=== PATIENT | male | born 1945 | race Native Hawaiian/Other Pacific Islander ===

== ENCOUNTER → 2017-09-16 | Outpatient (CLI) | payer MEDICARE, MEDICAID ==
[~2017-09-16] VITALS: Ht 175.3 cm; Wt 108.0 kg
[~2017-09-16] MED LIST: ACHD5005 PO; AMLO10TA82 PO; AMOX-358 PO; ASPI-586 PO; ATOR40TA70 PO; ATR20T PO; BACL20TA PO; BUDE6HFA IH; CALC-6 PO; CARV3.122 PO; CEPH500C PO; CETI10TA17 PO; CETI10TA20 PO; CLIN300C3 PO; CLOP75TA69 PO; ESCI10TA55 PO; ESCT10T PO; FLUT9.9S NSEACH; FOLI1TAB24 PO; FURO20TA4 PO; GBPN300C PO; HYDR-3454 PO; HYDR-3583 PO; INSASP10V SQ; INSU100I16 SQ; INSU100I29 SQ; INSU100V16 SQ; INSU100V5 SQ; ISM60TCR PO; LIRA0.6P SQ; MEGE40TA PO; METF-380 PO; METO-387 PO; METO100T2 PO; METO200T2 PO; MINOCYCLINE; MINOCYCLINE PO; OMEP20CA12 PO; OXYC-12 PO; PANT20TA2 PO; PRD50T PO; PREG50C PO; RT-ALBUINH IH; SULF1TAB38 PO; TRAM50TA2 PO; Victoza SQ; fosamax PO
== END ==
LOC: PREOP 05:33
PROVIDERS: ATTEND Surgery
DX: Z01.818 Encounter for other preprocedural examination (principal); K21.9 Gastro-esophageal reflux disease without esophagitis; K52.9 Noninfective gastroenteritis and colitis, unspecified

== ENCOUNTER 2017-09-22 10:14 | Day surgery (SDC) | payer MEDICARE, MEDICAID ==
[~2017-09-22] VITALS: Ht 175.3 cm; Wt 108.0 kg
[2017-09-22] MEDS ORDERED: LACTATED RINGERS 1,000 ML IV ONE (10:38)
[2017-09-22] MEDS ORDERED: LACTATED RINGERS 1,000 ML IV SCH (11:15)
[2017-09-22] MEDS ORDERED: HURRICAINE EXT TUBE (BENZOCAINE) XX PRN (11:15)
[2017-09-22] MEDS ORDERED: HURRICAINE EXT TUBE (BENZOCAINE) ONE (11:45)
[2017-09-22 11:47] VITALS: BP 142/84
[2017-09-22] MEDS ORDERED: proPOfol 200 MG/20 ML (DIPRIVAN) VIAL IV ONE (11:48)
[2017-09-22] MEDS ORDERED: MIDAZOLAM 2 MG/2 ML (VERSED) VIAL ONE (11:50)
[2017-09-22 12:45] VITALS: BP 184/110
--- NOTE | 2017-09-22 12:57 | Progress Note-Pre Operative ---
Pre-Operative Progress Note H&P Reviewed The H&P was reviewed, patient examined and no changes noted. Time Seen by Provider: 11:48 Date H&P Reviewed: Sep 22, 2017 Time H&P Reviewed: 11:46 Pre-Operative Diagnosis: Gastritis, Screening Colonoscopy PATRICIA CERVANTES DO Sep 22, 2017 12:57
--- NOTE | 2017-09-22 12:59 | Progress Note-Post Operative ---
Post-Operative Progess Note Surgeon (s)/Director Integrated (s) Surgeon PATRICIA CERVANTES DO Director Integrated: none Pre-Operative Diagnosis Gastritis, Screening Colonoscopy Post-Operative Diagnosis Gastritis Colon Polyp Internal Hemorrhoids Poor prep with retained fecal fluid and vegetable matter Procedure & Operative Findings Date of Procedure 09/22/17 Procedure Performed/Findings EGD with Biopsy Colonoscopy with snare polypectomy Anesthesia Type IV sedation by SENIOR ACCOUNTS PAYABLE SPECIALIST Estimated Blood Loss Estimated blood loss (mL): scant Specimens/Packing Specimens Removed Antral bx Descending colon polyp PATRICIA CERVANTES DO Sep 22, 2017 12:59
--- NOTE | 2017-09-22 13:01 | Endoscopy Discharge Instruct ---
Endo Procedure/Findings Findings 1.: Gastritis 2.: Polyp 3.: Internal Hemorrhoids Discharge Instructions - Activity: You might feel a little sleepy until tomorrow. This is due to the medicine you received to relax you. Until tomorrow, you should: NOT drive a car, operate machinery or power tools. NOT drink any alcoholic beverages. NOT make any important decisions or sign importortant papers. Do not return to work until tomorrow, unless otherwise instructed. Resume previous activities tomorrow. Diet: Start by taking liquids. If you tolerate liquids, advance to solid food. Make appointment for one week Notify Physician - If you experience excessive bleeding, unusual abdominal pain, fever, or chest pain, contact your doctor immediately. Follow-Up: - I have received and understand the above instructions and will call my doctor if I have any further questions. Patient Signature Date Nurse Signature Other (Relationship) PATRICIA CERVANTES DO Sep 22, 2017 13:01
[2017-09-22 13:15] VITALS: BP 202/107
[2017-09-22 13:52] VITALS: BP 202/107
--- NOTE | 2017-09-22 20:32 | OPERATIVE REPORT ---
DATE OF SERVICE: 09/22/2017 PREOPERATIVE DIAGNOSES: 1. Gastritis. 2. Screening colonoscopy. POSTOPERATIVE DIAGNOSES: 1. Gastritis. 2. Colon polyps. 3. Internal hemorrhoids. 4. Poor prep. 5. Small hiatal hernia. PROCEDURES: 1. EGD with biopsy. 2. Colonoscopy with snare polypectomy. SURGEON: PATRICIA CERVANTES DO. PHYSICAL THERAPY SUPERVISOR: None. ANESTHESIA: IV sedation by the AIRPORT LOCATION MANAGER. BLOOD LOSS: Scant. SPECIMEN: One biopsy from the antrum and one polyp from the descending colon. FLUIDS: Per anesthesia. POSTOPERATIVE CONDITION: Stable. INDICATION FOR PROCEDURE: The patient is a 72-year-old male who is having some gastritis as well as needing a screening colonoscopy. FINDINGS: The patient had some gastritis in the stomach. GE junction looked okay. He had a large polyp in the descending colon, but unfortunately he had a lot of liquid fecal material and retained vegetable matter and could not see all of the colon. He did also have some internal hemorrhoids. PROCEDURE NOTE: After informed consent was obtained, the patient was brought to the endoscopy suite, placed in the bed in left lateral decubitus position. He was administered IV sedation by the AIRPORT LOCATION MANAGER who then monitored his vitals the entire time, heart rate, blood pressure, and pulse ox. Started with the EGD and inserted the scope down the mouth into the esophagus and down into the stomach. There was some erythema and gastritis in the stomach, took a picture of this, pushed into the small intestine, looked okay, questionable small amount of duodenitis, but did not do a biopsy. Did a biopsy in the antrum. Good biopsy was obtained and then pulled back, retroflexed. The patient did look like he had a small hiatal hernia; took a picture of this and then pulled the scope up into the stomach. The stomach was little bit friable because he had some small petechia and areas of redness from where the scope had pushed against the wall of the stomach. In the GE junction, the GE junction looked good. Took a picture of this; took a picture of the esophagus and then slowly pulled the scope out of the mouth. Switched gloves and then switched scopes and did the colonoscopy. Started the colonoscopy. There was a lot of liquid fecal material, but able to push through. Able to get all the way to the cecum, took a picture of the appendiceal orifice. Unable to get into the terminal ileum; there was just too much fecal material, so started slowly withdrawing the scope, insufflated looking circumferential as well as looking at the cecum up the ascending colon to the hepatic flexure, then down the transverse colon to the splenic flexure and into the descending colon and the descending colon found to have a large polyp, able to suction some of the fluid out of the way. I did a snare polypectomy and then had sucked this polyp up and pull the scope all the way out. Put the scope back in and tried to another polyp, but unfortunately just a lot of liquid fecal material as well as retained vegetable matter. We will have to do this again with maybe a 2-day prep or 2-day clear liquid because there was too much to see and because we did not see everything. The scope was removed. Did retroflexion in rectal vault as well and saw some internal hemorrhoids and then removed the scope. The patient tolerated the procedure and he was recovered in the endoscopy suite. Job ID: [id number] DocumentID: [id number] Dictated Date: 09/22/2017 14:06:53 Hat Block Maker Date: 09/22/2017 16:10:08 Dictated By: PATRICIA CERVANTES DO
== END 2017-09-22 13:40 | disposition home or self-care (01) ==
LOC: ENDO 10:14
PROVIDERS: ATTEND Surgery
DX: Z12.11 Encounter for screening for malignant neoplasm of colon (principal); D12.4 Benign neoplasm of descending colon; K29.70 Gastritis, unspecified, without bleeding; K64.8 Other hemorrhoids; K44.9 Diaphragmatic hernia without obstruction or gangrene; E11.40 Type 2 diabetes mellitus with diabetic neuropathy, unspecified; F17.210 Nicotine dependence, cigarettes, uncomplicated; K21.9 Gastro-esophageal reflux disease without esophagitis; Z86.73 Personal history of transient ischemic attack (TIA), and cerebral infarction without residual deficits; Z79.82 Long term (current) use of aspirin; Z79.4 Long term (current) use of insulin; Z79.899 Other long term (current) drug therapy; I10 Essential (primary) hypertension; I25.10 Atherosclerotic heart disease of native coronary artery without angina pectoris; E78.5 Hyperlipidemia, unspecified; Z95.5 Presence of coronary angioplasty implant and graft; J44.9 Chronic obstructive pulmonary disease, unspecified; Z85.46 Personal history of malignant neoplasm of prostate
CPT/HCPCS: 82962

== ENCOUNTER 2018-06-16 14:14 | Outpatient (CLI) | payer MEDICARE, MEDICAID ==
[~2018-06-16] VITALS: Ht 175.3 cm; Wt 108.0 kg
[2018-06-16 14:34] VITALS: BP 152/95
[2018-06-16] MEDS ORDERED: ESCI20TA45 PO (15:00)
[2018-06-16] MEDS ORDERED: CNC1KV IM (15:00)
[2018-06-16] MEDS ORDERED: TAMS0.4C2 PO (15:00)
== END 2018-06-16 16:30 | disposition home or self-care (01) ==
LOC: PREOP 14:14
PROVIDERS: ATTEND Podiatrist Foot & Ankle Surgery
DX: Z01.810 Encounter for preprocedural cardiovascular examination (principal); Z11.2 Encounter for screening for other bacterial diseases; M89.372 Hypertrophy of bone, left ankle and foot
CPT/HCPCS: 87081; 93005

== ENCOUNTER 2018-06-20 08:05 | Day surgery (SDC) | payer MEDICARE, MEDICAID ==
[~2018-06-20] VITALS: Ht 175.3 cm; Wt 104.1 kg
[2018-06-20 08:03] VITALS: BP 142/85
[~2018-06-20 08:05] MED LIST changes: +CNC1KV IM; +ESCI20TA45 PO; +TAMS0.4C2 PO
[2018-06-20] MEDS ORDERED: LACTATED RINGERS 1,000 ML IV PRN (08:46)
[2018-06-20] MEDS ORDERED: ceFAZolin 1,000 MG/10 ML (ANCEF) VIAL ONE (08:58)
[2018-06-20] MEDS ORDERED: NS (IVPB) 50 ML ONE (08:59)
[2018-06-20] MEDS ORDERED: ceFAZolin INJECTION 1,000 MG in NS (IVPB) 50 ML IV ONE (09:00)
[2018-06-20] MEDS ORDERED: proPOfol 200 MG/20 ML (DIPRIVAN) VIAL IV ONE (09:08)
[2018-06-20] MEDS ORDERED: BUPIVACAINE 0.5% 30 ML (SENSORCAINE) VIAL ONE (09:08)
[2018-06-20] MEDS ORDERED: DEXAMETHASONE 10 MG/ML (DECADRON) 1 ML VIAL ONE (09:08)
[2018-06-20] MEDS ORDERED: LIDOCAINE 1% INJ 20 ML 20 ML VIAL ONE (09:08)
[2018-06-20] MEDS ORDERED: fentaNYL INJECTION 100 MCG/2 ML AMP ONE (09:08)
[2018-06-20] MEDS ORDERED: MIDAZOLAM 2 MG/2 ML (VERSED) VIAL ONE (09:09)
--- NOTE | 2018-06-20 09:22 | Progress Note-Pre Operative ---
Pre-Operative Progress Note H&P Reviewed The H&P was reviewed, patient examined and no changes noted. Date Seen by Provider: Jun 20, 2018 Time Seen by Provider: : Date H&P Reviewed: Jun 20, 2018 Time H&P Reviewed: : Pre-Operative Diagnosis: Exostosis, left 2nd Metatarsal MISAEL MAY DPM Jun 20, 2018 9:22 am
[2018-06-20 09:26] LABS: CALCIUM 9.3 MG/DL (8.5-10.1); CREATININE SERUM 1.27 MG/DL (0.60-1.30); POTASSIUM 4.6 MMOL/L (3.6-5.0)
--- OUTSIDE RECORDS SUMMARY | 2018-06-20 09:54 | XMS REPORT | Clinical Summary ---
Author Author [facility] Address Unknown Phone Unavailable Care Team Providers Care Full Stack Software Engineer Name Role Phone PCP Unavailable Allergies No Known Allergies Current Medications Prescription Sig. Disp. Refills Start End Date Status Date metoprolol (TOPROL-XL) Take 200 mg by mouth Active 200 MG 24 hr tablet daily. Take 1 tablet in am and 1/2 tablet in pm Take DOS pantoprazole (PROTONIX) Take 40 mg by mouth Active 40 MG tablet daily. Take DOS atorvastatin (LIPITOR) 20 Take 20 mg by mouth Active MG tablet daily. Take DOS escitalopram oxalate Take 10 mg by mouth Active (LEXAPRO) 10 MG tablet daily. Take DOS amLODIPine (NORVASC) 10 Take 10 mg by mouth Active MG tablet daily. Take DOS metFORMIN (GLUCOPHAGE) Take 1,000 mg by mouth 2 Active 1000 MG tablet (two) times a day with meals. insulin detemir (LEVEMIR) Inject 30 Units under the Active 100 unit/mL injection skin nightly. insulin aspart (NOVOLOG) Inject 20 Units under the Active 100 unit/mL injection skin 3 (three) times a day before meals. pregabalin (LYRICA) 50 MG Take 50 mg by mouth 2 Active capsule (two) times a day. 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, not stated as uncontrolled(250.50) ([facility]) Proliferative diabetic retinopathy, both eyes ([facility]) 07/20/2014 Resolved Problems Problem Noted Date Resolved Date Epiretinal membrane, right eye 01/01/2015 01/07/2015 Proliferative diabetic retinopathy, right eye ([facility]) 10/09/2014 10/10/2014 Traction retinal detachment involving macula of right eye 10/05/201410/10 Vitreous hemorrhage of right eye ([facility]) 07/20/2014 10/10/2014 Social History Tobacco Use Types Packs/Day Years Used Date Former Smoker 1 45 Quit: 07/20/2011 Smokeless Tobacco: Never Used Alcohol Use Drinks/Week oz/Week Comments Yes [employer] Sex Assigned at Date Recorded Not on file Last Filed Vital Signs Vital Sign Reading Time Taken Blood Pressure 153/66 01/07/2015 10:45 AM CDT Pulse 68 01/07/2015 10:45 AM CDT Temperature 36.3 C (97.3 F) 01/07/2015 10:45 AM CDT Respiratory Rate 9 01/07/2015 10:45 AM CDT Oxygen Saturation 97% 01/07/2015 10:45 AM CDT Inhaled Oxygen - - Concentration Weight 108.9 kg (240 lb) 12/31/2014 2:27 PM CDT Height 175.3 cm (5' 9.02") 12/31/2014 2:27 PM CDT Body Mass Index 35.43 12/31/2014 2:27 PM CDT Plan of Treatment Not on file Implants Implanted Type Area Non Garment Sewing Machine Operator Device Expiration Model / Identifier Date Serial / Lot Stent Right Leg Implanted: Explanted: Results Not on filefrom Last 3 Months
--- OUTSIDE RECORDS SUMMARY | 2018-06-20 09:55 | XMS REPORT ---
Author Author SATINDER GOOD [facility] Address [address] [place] [address] Care Team Providers Care Dairy Nutrition Consultant Name Role Phone SATINDER GOOD Unavailable PROBLEMS Type Condition ICD9-CM Code ULA76-FQ Code Onset Dates Condition Status SNOMED Code Problem Peripheral vascular disease I73.9 Active 011844198 Problem Coronary artery disease involving kaw coronary artery of kaw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 Active 1502256301840 Problem S/P coronary artery stent placement Z95.5 Active 633749555 Problem Chronic obstructive pulmonary disease, unspecified COPD type J44.9 Active 85106594 Problem Type 2 diabetes mellitus with diabetic neuropathy E11.40 Active 86039953 Problem Bilateral low back pain without sciatica M54.5 Active 315012574 Problem 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 Active 208665412 Problem 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 Active 488304260 Problem Hypercholesterolemia E78.0 Active 21233610 Problem Comprehensive diabetic foot examination, type 2 DM, encounter for E11.9 Active 25581167 Problem Type 2 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 Active 790752554 Problem Obesity (BMI 30.0-34.9) E66.9 Active 143107745480685 Problem Personal history of carotid stenosis Z86.79 Active 037776347 Problem Aphasia R47.01 Active 90328205 Problem Chronic diarrhea K52.9 Active 359972643 Problem Uses walker Z99.89 Active 903181989 Problem Chronic fatigue R53.82 Active 13218159 Problem Mixed stress and urge urinary incontinence N39.46 Active 936679929 Problem Chronic pain syndrome G89.4 Active 153233323 Problem High risk medication use Z79.899 Active 923473527 Problem Osteomyelitis of right foot, unspecified chronicity M86.9 Active 74077559 Problem Fatigue, unspecified type R53.83 Active 34134663 Problem Diabetes type 2, uncontrolled E11.65 Active 380223279 Problem Full incontinence of feces R15.9 Active 337725272010751 Problem Other chronic pain G89.29 Active 69346734 Problem Functional diarrhea K59.1 Active 12122179 Problem Fecal urgency R15.2 Active 35443881 Problem Depression F32.9 Active 34684871 Problem CKD (chronic kidney disease), stage 3 (moderate) N18.3 Active 566043329 Problem Hyperlipidemia, unspecified hyperlipidemia E78.5 Active 90605016 Problem CKD (chronic kidney disease) stage 3, GFR 30-59 ml/min N18.3 Active 427560243 Problem Type 2 diabetes mellitus with diabetic peripheral angiopathy without gangrene E11.51 Active 340544083 Problem Pain in left shoulder M25.512 Active 57289616 Problem Insulin long-term use Z79.4 Active 738645897 Problem Essential hypertension I10 Active 17519019 Problem Type 2 diabetes mellitus with diabetic retinopathy, macular edema presence unspecified, with unspecified retinopathy severity E11.319 Active 68310338 Problem Chronic kidney disease, unspecified N18.9 Active 256394965 Problem Type 2 diabetes mellitus with foot ulcer E11.621 Active 018772839 Problem Frequent falls R29.6 Active 796264412 Problem GERD without esophagitis K21.9 Active 490300938 Problem Mixed hyperlipidemia E78.2 Active 301882939 ALLERGIES No Information ENCOUNTERS Encounter Location Date Diagnosis [facility] [address] [id number] Feb, Diabetes type 2, uncontrolled E11.65 [facility] [address] [id number] Feb, Other chronic pain G89.29 [facility] [id number] [place] [address] [id number] Jan, [facility] [id number] [place] [address] [id number] Jan, [facility] [address] [id number] Jan, [facility] [address] [id number] Jan, Other chronic pain G89.29 [facility] [address] [id number] December, Mixed stress and urge urinary incontinence N39.46 [id number] [id number] December, Chronic fatigue R53.[address] [place] [address] [id number] December, Other chronic pain G89.29 [address] [place] [address] [id number] December, Diabetes type 2, uncontrolled E11.65 ; Type 2 diabetes mellitus with diabetic neuropathy E11.40 ; Hyperlipidemia, unspecified hyperlipidemia E78.5 ; Insulin long-term use Z79.4 ; Anemia, unspecified type D64.9 ; Foot callus L84 ; Bilateral low back pain without sciatica M54.5 ; Pain in left shoulder M25.512 ; GERD without esophagitis K21.9 ; Chronic kidney disease, unspecified N18.9 ; Uses walker Z99.89 ; Mixed stress and urge urinary incontinence N39.46 ; Essential hypertension I10 ; Chronic obstructive pulmonary disease, unspecified COPD type J44.9 and Other chronic pain G89.29 [facility] [address]005[address] [address] December, [address] [place] [address] [id number] December, Medicare annual wellness visit, subsequent Z00.00 ; Type 2 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 ; Chronic obstructive pulmonary disease, unspecified COPD type J44.9 ; Depression F32.9 ; Peripheral vascular disease I73.9 ; Coronary artery disease involving kaw coronary artery of kaw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 ; Hypercholesterolemia E78.0 ; GERD without esophagitis K21.9 and Chronic kidney disease, unspecified N18.9 [address] [place] [address] [id number] December, Mixed stress and urge urinary incontinence N39.46 ; Full incontinence of feces R15.9 ; Fecal urgency R15.2 ; Functional diarrhea K59.1 and Type 2 diabetes mellitus with diabetic neuropathy E11.40 [address] [place] [address] [id number] Nov, Other chronic pain G89.29 [address] [id number] Oct, [place] [id number] [place] [address] [id number] Oct, [address] [place] [address] [id number] Oct, Other chronic pain G89.29 [place] [id number] [place] [address] [id number] Sep, Other chronic pain G89.29 [place] [id number] [place] [address] [id number] Aug, CKD (chronic kidney disease), stage 3 (moderate) N18.3 ; Anemia, unspecified type D64.9 and Dilated pore of Ly L70.8 [place] [address] [place] [address] [id number] Aug, Other chronic pain G89.29 ; Pain in left shoulder M25.512 ; High risk medication use Z79.899 ; Uses walker Z99.89 ; Diabetes type 2, uncontrolled E11.65 and Depression F32.9 [place] [address] [place] [address] [id number] Aug, Chronic diarrhea K52.9 [address] [place] [address] [id number] Aug, Chronic diarrhea K52.9 ; Type 2 diabetes mellitus with diabetic neuropathy E11.40 ; Diabetes type 2, uncontrolled E11.65 ; Insulin long-term use Z79.4 ; Chronic obstructive pulmonary disease, unspecified COPD type J44.9 ; Chronic pain syndrome G89.4 ; Pain in left shoulder M25.512 ; Uses walker Z99.89 ; S/P coronary artery stent placement Z95.5 ; Mixed hyperlipidemia E78.2 and Essential hypertension I10 [address] [place] [address] [id number] Aug, [place] [address] [place] [address] [id number] Jul, Diabetes type 2, uncontrolled E11.[address] [id number] [id number] Jul, Diabetes type 2, uncontrolled E11.65 ; Type 2 diabetes mellitus with diabetic neuropathy E11.40 ; Insulin long-term use Z79.4 and Chronic obstructive pulmonary disease, unspecified COPD type J44.[address] [id number] [id number] Jun, [address] [place] [address] [id number] Jun, Essential hypertension I10 [address] [id number] [id number] Jun, Essential hypertension I10 [address] [place] [address] [id number] Jun, Type 2 diabetes mellitus with diabetic neuropathy E11.40 ; Type 2 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 ; S/P coronary artery stent placement Z95.5 ; Obesity (BMI 30.0-34.9) E66.9 ; Mixed hyperlipidemia E78.2 ; Frequent falls R29.6 ; Chronic obstructive pulmonary disease, unspecified COPD type J44.9 ; Essential hypertension I10 ; Insulin long-term use Z79.4 and High risk medication use Z79.899 [place] [id number] [place] [address] [id number] May, Diarrhea, unspecified type R19.7 ; Type 2 diabetes mellitus with diabetic neuropathy E11.40 ; Chronic obstructive pulmonary disease, unspecified COPD type J44.9 ; S/P coronary artery stent placement Z95.5 ; High risk medication use Z79.899 ; Essential hypertension I10 ; Encounter for administration of vaccine Z23 and Encounter for immunization Z23 [facility] [place] [address] [facility] [id number] [id number] May, Chronic obstructive pulmonary disease, unspecified COPD type J44.[address] [id number] [id number] May, Type 2 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 ; Encounter for immunization Z23 ; Needs flu shot Z23 ; Comprehensive diabetic foot examination, type 2 DM, encounter for E11.9 and Obesity (BMI 30.0-34.9) E66.9 [facility] [address] [place] [address] [id number] May, [facility] [id number] [place] [address] [id number] Apr, [place] [address] [place] [address] [id number] Apr, Essential hypertension I10 and Aphasia R47.01 [place] [address] [place] [address] [id number] Apr, [place] [address] [place] [address] [id number] Apr, Type 2 diabetes mellitus with diabetic neuropathy E11.40 ; Frequent falls R29.6 ; Essential hypertension I10 ; S/P coronary artery stent placement Z95.5 ; High risk medication use Z79.899 ; Hyperlipidemia, unspecified hyperlipidemia E78.5 ; CKD (chronic kidney disease), stage 3 (moderate) N18.3 ; Pain in left shoulder M25.512 and Chronic obstructive pulmonary disease, unspecified COPD type J44.9 [address] [place] [address] [id number] Mar, [place] [address] [place] [address] [id number] Mar, Type 2 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 ; Leg wound, left, initial encounter S81.802A ; Hx of shoulder surgery Z98.890 ; Acute pain of left shoulder M25.512 and Fall, initial encounter W19.XXXA [address] [place] [address] [id number] Feb, Follow-up exam Z09 ; Hx of shoulder surgery Z98.890 ; Acute pain of left shoulder M25.512 ; Essential hypertension I10 and Leg wound, left, initial encounter S81.802A [facility] [id number] [place] [address] [id number] Feb, [place] [address] [place] [address] [id number] Feb, [place] [address] [place] [address] [id number] Feb, Chronic obstructive pulmonary disease, unspecified COPD type J44.9 [facility] [id number] [place] [address] [id number] Feb, [facility] [id number] [place] [address] [id number] Jan, Generalized weakness R53.1 ; Exertional shortness of breath R06.02 and Fungal rash of trunk B36.9 [facility] [id number] [place] [id number], [facility] [id number] [place] [id number], [facility] [id number] [place] [address] [id number] Jan, [facility] [id number] [place] [address] [id number] Jan, [facility] [id number] [place] [address] [id number] December, High risk medication use Z79.899 [facility] [id number] [place] [address] [id number] December, Type 2 diabetes mellitus with diabetic neuropathy E11.40 [facility] [id number] [place] [address] [id number] December, High risk medication use Z79.899 [facility] [id number] [place] [address] [id number] Nov, Diabetes type 2, uncontrolled E11.65 [facility] [id number] [place] [address] [id number] Nov, Medicare annual wellness visit, initial Z00.00 ; Bilateral low back pain without sciatica M54.5 ; Pain in left shoulder M25.512 ; Chronic pain syndrome G89.4 ; Type 2 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 ; High risk medication use Z79.899 and Encounter for immunization Z23 [facility] [id number] [place] [address] [id number] Nov, Type 2 diabetes mellitus with diabetic neuropathy E11.40 ; Coronary artery disease involving kaw coronary artery of kaw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 and CKD (chronic kidney disease), stage 3 (moderate) N18.3 [facility] [id number] [place] [address] [id number] Oct, Type 2 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 ; Chronic pain syndrome G89.4 ; Chronic obstructive pulmonary disease, unspecified COPD type J44.9 ; Chronic kidney disease, unspecified N18.9 and Rash R21 [address] [id number] [place] [id number] Oct, Type 2 diabetes mellitus with diabetic neuropathy E11.40 [facility] [id number] [place] [address] [id number] Oct, Rash R21 and Impetigo L01.00 [facility] [id number] [place] [address] [id number] Oct, Chronic pain syndrome G89.4 [place] [address] [place] [address] [id number] Oct, [facility] [id number] [place] [address] [id number] Sep, Sebaceous cyst L72.3 [facility] [id number] [place] [address] [id number] Sep, 2016 Sebaceous cyst L72.3 [facility] [id number] [place] [address] [id number] Sep, 2016 Chronic pain syndrome G89.4 ; Pain in left shoulder M25.512 and Effusion of olecranon bursa, left M25.422 [facility] [address], [place] [address] Aug, [facility] [address] [place] [address] [id number] Aug, [place] [address] [place] [address] [id number] Aug, Mixed hyperlipidemia E78.2 and Chronic kidney disease, unspecified N18.9 [place] [address] [place] [address] [id number] Jul, Type 2 diabetes mellitus with diabetic neuropathy E11.40 ; Essential hypertension I10 and S/P coronary artery stent placement Z95.5 [facility] [id number] [place] [address] [id number] Jul, 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 [facility] [id number] [place] [address] [id number] Jul, Diabetes type 2, uncontrolled E11.65 ; Essential hypertension I10 and 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 [facility] [id number] [place] [address] [id number] Jul, [facility] [id number] [place] [address] [id number] Jul, [facility] [id number] [place] [address] [id number] Jul, [facility] [address] [place] [address] [id number] Jul, Chronic obstructive pulmonary disease, unspecified COPD type J44.9 [facility] [id number] [place] [address] [id number] Jun, CKD (chronic kidney disease), stage 3 (moderate) N18.3 and Anemia, unspecified type D64.9 [place] [id number] [place] [address] [id number] Jun, Type 2 diabetes mellitus with diabetic neuropathy E11.40 ; Decreased GFR R94.4 ; CKD (chronic kidney disease), stage 3 (moderate) N18.3 and Decreased hemoglobin R71.0 [place] [id number] [place] [address] [id number] Jun, CKD (chronic kidney disease), stage 3 (moderate) N18.3 and Anemia, unspecified type D64.9 [address] [place] [address] [id number] Jun, Type 2 diabetes mellitus with diabetic neuropathy E11.40 ; Decreased GFR R94.4 and CKD (chronic kidney disease), stage 3 (moderate) N18.3 [address] [place] [address] [id number] Jun, Type 2 diabetes mellitus with diabetic neuropathy E11.40 and Essential hypertension I10 [address] [id number] Jun, [place] [address] [place] [address] [id number] Jun, [address] [id number] Jun, Type 2 diabetes mellitus with diabetic neuropathy E11.40 ; S/P coronary artery stent placement Z95.5 ; Chronic obstructive pulmonary disease, unspecified COPD type J44.9 ; Essential hypertension I10 ; GERD without esophagitis K21.9 ; Peripheral vascular disease I73.9 ; Mixed hyperlipidemia E78.2 and Hospital discharge follow-up Z09 [place] [address] [place] [address] [id number] Jun, [place] [address] [place] [address] [id number] May, Depression F32.9 and Hyperlipidemia, unspecified hyperlipidemia E78.5 [facility] [id number] [address] May, [address] [place] [address] [id number] May, [place] [address] [place] [address] [id number] May, Essential hypertension I10 ; Chronic pain syndrome G89.4 ; Pain in left shoulder M25.512 ; High risk medication use Z79.899 ; Chronic obstructive pulmonary disease, unspecified COPD type J44.9 ; S/P coronary artery stent placement Z95.5 ; Personal history of carotid stenosis Z86.79 ; Hyperlipidemia, unspecified hyperlipidemia E78.5 ; Decreased GFR R94.4 and Type 2 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 [address] [place] [address] [id number] May, Hemoglobin decreased R71.0 and Decreased GFR R94.4 [address] [place] [address] [id number] May, Hemoglobin decreased R71.0 and Decreased GFR R94.4 [facility] [id number], [place] [id number] May, [facility] [id number] [place] [address] [id number] May, [facility] [id number] [place] [address] [id number] Apr, [facility] [address] [place] [address] [id number] Apr, Type 2 diabetes mellitus with foot ulcer E11.621 ; Dizziness R42 ; Fatigue , unspecified type R53.83 ; Chronic pain syndrome G89.4 ; Encounter for immunization Z23 ; Pain in left shoulder M25.512 ; Personal history of carotid stenosis Z86.79 ; High risk medication use Z79.899 ; Chronic obstructive pulmonary disease, unspecified COPD type J44.9 ; S/P coronary artery stent placement Z95.5 ; Depression F32.9 ; Hyperlipidemia, unspecified hyperlipidemia E78.5 and Essential hypertension I10 [facility] [id number] [place] [address] [id number] Apr, [place] [id number] [place] [address] [id number] Mar, [place] [id number] [place] [address] [id number] Mar, [facility] [address] [id number], [place] [address] Mar, [facility] [id number], [place] [id number] Feb, [facility] [address] [place] [address] [id number] Feb, [facility] [id number] [place] [address] [id number] Feb, [facility] [id number] [place] [address] [id number] Jan, Type 2 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 ; Hypercholesterolemia E78.0 ; Chronic pain syndrome G89.4 ; Pain in left shoulder M25.512 and High risk medication use Z79.899 [facility] [address] [id number] [id number] Jan, [facility] [id number], [place] [id number] Jan, [facility] [id number], [place] [id number] December, [facility] [id number], [place] [id number] December, [facility] [address] [place] [id number] [place] [address] December, Diabetes type 2, uncontrolled E11.65 ; Type 2 diabetes mellitus with diabetic neuropathy E11.40 ; Peripheral vascular disease I73.9 ; 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 and 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 [facility] [id number], [place] [id number] Nov, [facility] [id number] [place] [address] [id number] Nov, [facility] [address] [place] [address] [id number] Nov, [facility] [id number], [place] [id number] Nov, Right hip pain M25.551 [facility] [address] [id number] [place] [address] Nov, [facility] [address] [place] [address]- [address] Nov, [facility] [id number] [place] [address] [id number] Nov, Diabetes with neurological manifestations, type II or unspecified type, 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.60 [facility] [id number] [place] [address] [id number] Nov, [facility] [id number], [place] [id number] Nov, [facility] [id number], [place] [id number] Oct, Diabetes type 2, uncontrolled E11.65 ; Type 2 diabetes mellitus with diabetic neuropathy, unspecified E11.40 and Low back pain M54.5 [facility] [address] [id number], [place] [id number] Oct, [facility] [address] [id number][place] [id number] Oct, [facility] [address] [id number][place] [id number] Oct, [facility] [id number] [place] [address] [id number] Sep, [facility] [address] [id number] [id number] Sep, [facility] [address], [place] [address] Sep, [facility] [id number], [place] [id number] Sep, [facility] [id number] [place] [address] [id number] Sep, [facility] [id number], [place] [id number] Aug, 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 [facility] [id number] [place] [address] [id number] Aug, [facility] [id number], [place] [id number] Aug, Allergic rhinitis due to pollen J30.1 [place] [address] [facility] [address] [id number] [place] [id number] Jul, [facility] [address] [facility] [id number][place] [id number] Jul, [facility] [address] [facility] [id number], [place] [id number] Jul, [facility] [id number], [place] [id number] Jun, [facility] [id number], [place] [id number] Jun, Thumb tendonitis M77.8 and Ringing in ear, bilateral H93.13 [facility] [address] [id number] [place] [id number] Jun, [address], [place] [id number] May, [place] [address], [place] [address] May, [place] [address], [place] [address] May, Pre-op evaluation Z01.818 ; Encounter for immunization Z23 ; Type 2 diabetes mellitus with diabetic peripheral angiopathy without gangrene E11.51 ; Insulin long-term use Z79.4 ; Type 2 diabetes mellitus with foot ulcer E11.621 ; Peripheral vascular disease I73.9 ; Coronary artery disease involving kaw coronary artery of kaw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 ; S/P coronary artery stent placement Z95.5 ; Osteomyelitis of right foot, unspecified chronicity M86.9 and Chronic obstructive pulmonary disease, unspecified COPD type J44.9 [place] [address] [facility] [id number], [place] [address] May, [address]005[address]100[place] [id number] May, [address]100[place] [id number] May, Diabetes type 2, uncontrolled E11.65 ; Encounter for immunization Z23 ; Osteopenia M85.80 and Allergic rhinitis due to pollen J30.1 [facility] [address] [facility] [id number][place] [id number] May, Lumbago 724.2 [facility] [address] [facility] [id number], [place] [id number] Apr, [facility] [id number], [place] [id number] Apr, [address] [id number], [place] [id number] Apr, [place] [id number] 003[address]6493 Apr, [facility] [address]00565100[place], [place] [address] Mar, [facility] [address] [id number] [place] [id number] Mar, [facility] [address] [id number] [place] [address]859065[place] Mar, [facility] [address] [id number] [place] [id number] Mar, [facility] [address] [id number] [place] [id number] Mar, [facility] [address] [place] [address] 2546 Mar, [facility] [id number] [place] [id number] Mar, [facility] [id number] [place] [id number] Mar, Diabetes with neurological manifestations, type II or unspecified type, 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.60 and Severe obesity (BMI 35.0-35.9 with comorbidity) 278.01 [facility] [id number], [place] [id number] Mar, [facility] [address]00565100[place], [place] [address] Mar, [facility] [address]00565100[place], [place] [address] 2546 Feb, [facility] [id number], [place] [address]139 Feb, [facility] [address] [id number], [place] [address]0001[address] Feb, [facility] [id number], [place] [address] Feb, Diabetes with neurological manifestations, type II or unspecified type, 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.60 [facility] [address] [id number], [place] 160963546 Feb, [facility] [address]00565100[place], [place] [address] Feb, [facility] [id number], [place] 704361213 Feb, [facility] [id number] [place] [address] [id number] Feb, Follow up V67.9 ; Diabetes with neurological manifestations, type II or unspecified type, 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.60 and Congestive heart failure 428.0 [facility] [id number] [place] [address] [id number] Jan, [facility] [id number] [place] [address] [id number] Jan, [facility] [id number] [place] [address] [id number] Jan, [facility] [id number] [place] [address] [id number] December, Otitis media with effusion 381.4 ; Left arm numbness 782.0 and Osteoporosis 733.00 [facility] [id number], [place] [id number] December, [facility] [id number], [place] [id number] Nov, [facility] [id number], [place] 559732028 Nov, Serous otitis media 381.4 and Lumbago 724.2 [facility] [address]00565100[place], [place] [address]- 2546 Nov, [facility] [address]00565100[place], [place] [address]- 2546 Nov, [facility] [id number], [place] 139994108 Oct, [facility] [address]00565100[place], [place] [address]- 2546 Oct, [facility] [id number], [place] [id number] Oct, [facility] [address]00565100[place], [place] [address]- 8466 Oct, [facility] [address] [facility] [id number], [place] [id number] Oct, [facility] [place] [facility] [address] [facility] [id number], [place] [address]- [address] Oct, [facility] [place] [facility] [address] [facility] [id number], [place] [address]- 9[address] Sep, [facility] [place] [facility] [address] [facility] [id number], [place] [address]- 6175 Sep, [facility] [address] [facility] [id number], [place] 744442041 Sep, [facility] [place] [facility] [address]00565100[place], [place] [address]- 2866 Sep, [facility] [id number], [place] 238194532 Aug, [facility] [place] [facility] [address]00565100[place], [place] [address]- 2342 Aug, [facility] [address] [facility] [id number], [place] 151006566 Aug, [facility] [place] [facility] [address]00565100[place], [place] [address]- 5665 Aug, [facility] [address] [facility] [id number], [place] 739847575 Jul, [facility] [place] [facility] [address] [facility] [id number], [place] [address]- 0283 Jul, [facility] [address] [facility] [id number], [place] [id number] Jul, [facility] [place] [facility] [address] [facility] [id number], [place] [address]- 3066 Jul, [facility] [address] [facility] [id number], [place] 424922890 Jul, [facility] [place] [facility] [address] [id number], [place] [address]- 5[address] Jul, [facility] [address] [id number] [place] [id number] Jun, [facility] [place] [facility] [address] [facility] [id number], [place] [address]- 2546 Jun, [facility] [address] [facility] [id number] [place] [id number] May, [facility] [place] [facility] [address] [facility] [id number], [place] [address] 2546 May, [facility] [address] [facility] [id number], [place] 909837295 May, [facility] [place] [facility] [address] [facility] [id number], [place] [address]- [address]86 May, [facility] [address] [facility] [id number], [place] [id number] May, [facility] [place] [facility] [address] [facility] [id number], [place] [address]- 3956 May, [facility] [address] [facility] [id number], [place] 338810215 May, [facility] [address] [facility] [id number], [place] [id number] May, [facility] [place] [facility] [address] [facility] [id number], [place] [address]- 4706 May, [facility] [place] [facility] [address] [facility] [id number], [place] [address]- 4926 May, [facility] [address] [facility] [id number], [place] [id number] May, [facility] [place] [facility] [address] [facility] [id number], [place] [address]- 2416 May, [facility] [place] [facility] [address] [facility] [id number], [place] [address]- 7566 Apr, [facility] [address] [facility] [id number], [place] 186880530 Apr, [facility] [place] [facility] [address] [facility] [id number], [place] [address]- 7128 Apr, [facility] [address] [id number] [place] [id number] Apr, [facility] [address] [id number] [place] [id number] Apr, [facility] [place] [facility] [address] [facility] [id number] [place] [address]- 1562 Apr, [facility] [place] [facility] [address] [facility] [id number] [place] [address]- 7096 Apr, [facility] [address] [facility] [id number] [place] [id number] Apr, [facility] [place] [facility] [address] [facility] [id number] [place] [address]- 9286 Apr, [facility] [address] [facility] [id number] [place] [id number] Apr, [facility] [place] [facility] [address]00565100[place], [place] [address]- 7114 Apr, [facility] [address] [facility] [id number], [place] 817543166 Apr, [facility] [place] [facility] [address] [facility] [id number], [place] [address]- 8810 Apr, [facility] [address] [facility] [id number], [place] [id number] Apr, [facility] [place] [facility] [address] [facility] [id number], [place] [address]- 5889 Apr, [facility] [address] [facility] [id number], [place] [id number] Apr, [facility] [place] [facility] [address] [facility] [id number], [place] [address]- 3714 Apr, [facility] [address] [facility] [id number], [place] 585922784 Apr, [facility] [place] [facility] [address] [facility] [id number], [place] [address]- 1280 Apr, [facility] [address] [facility] [id number], [place] 433557244 Mar, [facility] [place] [facility] [address] [id number] [place] [address]- 9686 Mar, [facility] [address] [id number] [place] 919144977 Mar, [facility] [address] [id number] [place] [id number] Mar, [facility] [place] [facility] [address] [id number] [place] [address]- 9724 Mar, [facility] [place] [facility] [address] [id number] [place] [address]- 2669 Mar, [facility] [address] [id number] [place] [id number] Mar, [facility] [place] [facility] [address] [facility] [id number] [place] [address]- 0946 Mar, [facility] [address] [id number] [place] [id number] Mar, [facility] [place] [facility] [address] [id number], [place] [address]- 6860 Mar, [facility] [address] [id number] [place] [id number] Mar, [facility] [place] [facility] [address] [facility] [id number], [place] [address]- 6679 Mar, [facility] [address] [id number] [place] [id number] Mar, [facility] [place] [facility] [address] [facility] [id number], [place] [address]- 0629 Mar, [facility] [address] [id number] [place] [id number] Mar, [facility] [place] [facility] [address] [facility] [id number] [place] [address]- 2433 Mar, [facility] [address] [id number] [place] [id number] Mar, [facility] [place] [facility] [address] [facility] [id number] [place] [address]- 7326 Mar, [facility] [address] [id number] [place] [id number] Mar, [facility] [place] [facility] [address] [id number] [place] [address]- 2968 Mar, [facility] [address] [id number] [place] 906254948 Feb, [facility] [place] [facility] [address] [facility] [id number] [place] [address]- 4200 Feb, [facility] [address] [id number] [place] [id number] Feb, [facility] [place] [facility] [address] [facility] [id number] [place] [address]- 9003 Feb, [facility] [address] [id number] [place] 850988299 Feb, [facility] [place] [facility] [address] [facility] [id number] [place] [address]- 9051 Feb, [facility] [address] [id number] [place] [id number] Feb, [facility] [place] [facility] [address] [facility] [id number] [place] [address]- 5072 Feb, [facility] [address] [id number] [place] [id number] Feb, [facility] [place] [facility] [address] [facility] [id number] [place] [address]- 2777 Feb, [facility] [address] [id number] [place] [id number] Feb, [facility] [place] [facility] [address] [id number] [place] [address]- 4802 Feb, [facility] [address] [id number] [place] [id number] Feb, [facility] [place] [facility] [address] [facility] [id number] [place] [address]- 6746 Feb, [facility] [address] [id number] [place] [id number] Feb, [facility] [place] [facility] [address] [id number] [place] [address]- 4996 Feb, [facility] [address] [id number] [place] [id number] Feb, [facility] [place] [facility] [address] [id number] [place] [address]- 4791 Feb, [facility] [address] [id number] [place] [id number] Feb, [facility] [address] [id number] [place] [id number] Feb, [facility] [place] [facility] [address] [id number] [place] [address]- 2749 Feb, [facility] [place] [facility] [address] [facility] [id number] [place] [address]- 2518 Feb, [facility] [address] [id number] [place] [id number] Feb, [facility] [place] [facility] [address] [facility] [id number] [place] [address]- 0713 Feb, [facility] [address] [id number] [place] [id number] Feb, [facility] [place] [facility] [address] [facility] [id number] [place] [address]- 4073 Feb, [facility] [address] [id number] [place] 968611043 Feb, [facility] [place] [facility] [address] [facility] [id number] [place] [address]- 9003 Feb, [facility] [address] [id number] [place] [id number] Jan, [facility] [place] [facility] [address] [facility] [id number] [place] [address]- 9690 Jan, [facility] [place] [facility] [address] [facility] [id number] [place] [address]- 7071 Jan, [facility] [place] [facility] [address] [facility] [id number], [place] [address]- 4539 Jan, [facility] [place] [facility] [address] [facility] [id number], [place] [address]- 9139 Jan, [facility] [place] [facility] [address] [facility] [id number], [place] [address]- 9676 Jan, [facility] [address] [facility] [id number], [place] [id number] Jan, [facility] [place] [facility] [address] [facility] [id number], [place] [address]- 5435 Jan, [facility] [place] [facility] [address] [facility] [id number], [place] [address]- 4282 Jan, [facility] [place] [facility] [address] [facility] [id number], [place] [address]- 9003 Jan, [facility] [address] [facility] [id number], [place] [id number] Jan, [facility] [address] [facility] [id number], [place] 064570219 Jan, [facility] [place] [facility] [address] [facility] [id number], [place] [address]- 5589 Jan, [facility] [place] [facility] [address] [facility] [id number], [place] [address]- 5812 Jan, [facility] [address] [id number], [place] 631270193 Jan, [facility] [address] [facility] [id number], [place] 689641870 Jan, [facility] [place] [facility] [address] [facility] [id number], [place] [address]- 5646 Jan, [facility] [place] [facility] [address] [facility] [id number], [place] [address]- 0005 Jan, [facility] [place] [facility] [address] [facility] [id number], [place] [address]- 8414 Jan, [facility] [address] [facility] [id number], [place] [id number] December, [facility] [place] [facility] [address] [id number], [place] [address]- 1594 December, [facility] [place] [facility] [address] [id number] [place] [address]- 8486 December, [facility] [address] [facility] [id number] [place] [id number] December, [facility] [place] [facility] [address] [id number] [place] [address]- 2886 December, [facility] [address] [id number] [place] 783104203 December, [facility] [address] [id number] [place] [address]- 1847 December, [facility] [address] [facility] [id number] [place] 988893110 December, [facility] [address] [facility] [id number], [place] [address]- 0966 December, [facility] [address] [facility] [id number], [place] 670343994 Nov, [facility] [place] [facility] [address] [id number], [place] [address]- 9018 Nov, [facility] [address] [facility] [id number], [place] 278161840 Nov, [facility] [place] [facility] [address] [id number], [place] [address]- 6606 Nov, [facility] [place] [facility] [address] [id number], [place] [address]- 7713 Nov, [facility] [place] [facility] [address] [id number] [place] [address]- 1394 Nov, [facility] [place] [facility] [address] [facility] [id number], [place] [address]- 2182 Oct, [facility] [address] [facility] [id number] [place] [id number] Oct, [facility] [place] [facility] [address] [id number], [place] [address]- 1638 Oct, [facility] [address] [id number] [place] 706003826 Oct, [facility] [place] [facility] [address] [facility] [id number], [place] [address]- 1060 Oct, [facility] [address] [facility] [id number] [place] [id number] Sep, [facility] [place] [facility] [address] [facility] [id number], [place] 989432- 9133 Sep, [facility] [address] [facility] [id number] [place] 748147248 Aug, [facility] [place] [facility] [address] [facility] [id number], [place] 839995- 2719 Aug, [facility] [address] [id number], [place] 059830110 Aug, [facility] [place] [facility] [address]00565100[place], [place] [address]- 1364 Aug, [facility] [place] [facility] [address] [facility] [id number], [place] [address]- 8907 Aug, [facility] [address] [facility] [id number], [place] 131305075 Aug, [facility] [place] [facility] [address]00565100[place], [place] [address]- 5238 Aug, [facility] [place] [facility] [address] [facility] [id number], [place] 712982- 2411 Aug, [facility] [address] [facility] [id number], [place] [id number] Aug, [facility] [place] [facility] [address] [facility] [id number], [place] [address]- 3628 Aug, [facility] [address] [facility] [id number] [place] [id number] Jul, [facility] [place] [facility] [address] [facility] [id number], [place] [address]- 9684 Jul, [facility] [address] [facility] [id number] [place] [id number] Jul, [facility] [address] [id number], [place] [address]- 9736 Jul, [facility] [address] [id number] [place] 149955192 Jul, [facility] [address] [facility] [id number], [place] [address]- 2546 Jul, [facility] [address] [id number] [place] [id number] Jul, [facility] [address] [facility] [id number], [place] [address]- 6867 Jul, [facility] [address] [id number], [place] 478620341 Jun, [facility] [address] [id number], [place] [address]- 4019 Jun, [facility] [address] [id number], [place] 853246250 Jun, [facility] [address] [facility] [id number], [place] [address]- 5568 Jun, [facility] [address] [facility] [id number], [place] [address]- 0164 Jun, [facility] [address] [id number], [place] [address]- 0314 Jun, [facility] [address] [id number], [place] 670796337 Apr, [facility] [address] [id number] [place] [id number] Mar, [facility] [address] [id number] [place] 560912103 Mar, [facility] [address] [id number] [place] [id number] Feb, [facility] [place] [address] [id number][place] [id number] Feb, [facility] [place] [address] [id number] [place] [id number] Feb, [facility] [place] [address] [id number] [place] [id number] December, [facility] [place] [address] [id number] [place] [id number] December, [facility] [address] [id number], [place] [address] December, [facility] [place] [address] [id number] [place] [id number] December, [facility] [place] [address] [id number] [place] [id number] December, [facility] [place] [address] [id number] [place] [id number] Nov, [facility] [place] [address] [id number] [place] [id number] Nov, [facility] [place] [address] [id number] [place] [id number] Nov, [facility] [place] [address] [id number] [place] [id number] Oct, [facility] [place] [address] [id number] [place] [id number] Sep, [facility] [place] [address] [id number] [place] [id number] Aug, [facility] [address] [id number], [place] [address] Aug, [facility] [place] [address] [id number] [place] [id number] Aug, [facility] [place] [address] [id number] [place] [id number] Jul, [facility] [address] [id number], [place] [address] Jul, [facility] [place] [address] [id number] [place] [id number] Jul, [facility] [address] [facility] [id number] [address] Jul, [facility] [place] [address] [id number] [place] [id number] Jun, [facility] [address] [id number], [place] [address] Jun, [facility] [place] [address] [id number] [place] [id number] May, [facility] [address] [facility] [id number], [place] [address] May, [facility] [place] [address] [id number] [place] [id number] May, [facility] [address] [id number], [place] [address] May, [facility] [place] [address] [id number] [place] [id number] Apr, [facility] [place] [address] [id number] [place] [id number] Apr, [facility] [place] [address] [id number] [place] [id number] Mar, [facility] [place] [address] [id number] [place] [id number] Mar, [facility] [place] [address] [id number] [place] [id number] Feb, [facility] [place] [address] [id number] [place] [id number] Feb, [facility] [place] [address] [id number] [place] [id number] Jan, [facility] [place] [address] [id number] [place] [id number] Jan, [facility] [place] [address] [id number] [place] [id number] Jan, [facility] [place] [address] [id number] [place] [id number] Jan, [facility] [place] [address] [id number] [place] [id number] December, [facility] [place] [address] [id number] [place] [id number] December, [facility] [address] [facility] [id number] [place] [address] Nov, [facility] [address] [id number] [place] [id number] Nov, [facility] [place] [address] [id number] [place] [id number] Nov, [facility] [address] [id number] [place] [id number] Nov, [facility] [address] [id number] [place] [id number] Nov, [facility] [address] [facility] [id number] [place] [address] Oct, [facility] [place] [facility] [address] [facility] [id number] [place] [address] Oct, [facility] [address] [id number] [place] [id number] Oct, [facility] [address] [id number] [place] [id number] Oct, [facility] [place] [address] [id number] [place] [id number] Oct, [facility] [address] [id number] [place] [id number] Oct, [facility] [address] [id number] [place] [id number] Oct, [facility] [address] [id number] [place] [id number] Oct, [facility] [address] [id number] [place] [id number] Oct, [facility] [address] [facility] [id number], [place] [address] Oct, [facility] [address] [id number] [place] [id number] Sep, [facility] [address] [id number] [place] [id number] Sep, [facility] [address] [id number] [place] [id number] Aug, [facility] [address] [facility] [id number][place] [id number] Aug, [facility] [address] [facility] [id number], [place] [address] Jul, [facility] [address] [facility] [id number], [place] [address] Jul, [facility] [address] [id number], [place] [address] Jul, [facility] [address] [id number], [place] [address] Jul, [facility] [address] [id number], [place] [address] Jul, [facility] [address] [id number], [place] [address] Jul, [facility] [id number], [place] [address] Jul, [facility] [address] [id number], [place] [address] Jul, [facility] [id number], [place] [address] Jul, [facility] [address] [id number], [place] [address] Jul, [facility] [address] [facility] [id number], [place] [address] Jul, [facility] [address] [facility] [id number], [place] [address] Jul, [facility] [address] [facility] [id number], [place] [address] Jul, [facility] [address] [facility] [id number], [place] [address] Jul, IMMUNIZATIONS No Known Immunizations SOCIAL HISTORY Never Assessed REASON FOR VISIT RX-Prilosec refill PLAN OF CARE VITAL SIGNS MEDICATIONS Medication Instructions Dosage Frequency Start Date End Date Duration Status Prilosec 20 mg Orally Once a day 1 capsule 24h Active RESULTS No Results PROCEDURES No Known procedures INSTRUCTIONS MEDICATIONS ADMINISTERED No Known Medications MEDICAL (GENERAL) HISTORY Type Description Date Medical History peripheral vascular disease s/p angioplasty w/ stent R leg Medical History hypertension Medical 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 Larson FU. Asymptomatic no need for heart cath, monitor and will futher investigate if furhter episodes of syncope in the future. Medical History 05/26/17 noted, senior living has ended and they feel he is independent in the home. Medical History 07/12/17 Cardiology 3 m FU, stop coreg, fu in 6 months Medical History 09/27/17 Dr Capone neurology consult: MRI wo contrast and return in 2 months. Suspect small vessel ischemic disease. 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 Nielson) 05/2015 Surgical History left carpal tunnel release (Dr. Nelson) 04/2016 Surgical History left shoulder replacement Dr. Contreras--left impacted two-part proximal humerus fracture, procedure left shoulder hemiarthroplasty with greater tuberosity repair 01/2017 Hospitalization History NSTEMI, acute respiratory failure, acute CHF, pneumonia, sepsis, CAD 01/2015 Hospitalization History [facility] left foot, Lung and Heart failure, resp insufficiency 06/2016
--- OUTSIDE RECORDS SUMMARY | 2018-06-20 09:57 | XMS REPORT ---
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 Active 2258381456929 Problem S/P coronary artery stent placement Z95.5 Active 353040096 Problem Chronic obstructive pulmonary disease, unspecified COPD type J44.9 Active 31795410 Problem Type 2 diabetes mellitus with diabetic neuropathy E11.40 Active 55280219 Problem Bilateral low back pain without sciatica M54.5 Active 813308360 Problem 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 Active 916331735 Problem 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 Active 395176616 Problem Hypercholesterolemia E78.0 Active 82438389 Problem Comprehensive diabetic foot examination, type 2 DM, encounter for E11.9 Active 59255625 Problem Type 2 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 Active 988868741 Problem Obesity (BMI 30.0-34.9) E66.9 Active 959913706542370 Problem Personal history of carotid stenosis Z86.79 Active 203555468 Problem Aphasia R47.01 Active 35584761 Problem Chronic diarrhea K52.9 Active 541502566 Problem Uses walker Z99.89 Active 438834771 Problem Chronic fatigue R53.82 Active 05712555 Problem Mixed stress and urge urinary incontinence N39.46 Active 938483308 Problem Chronic pain syndrome G89.4 Active 141683373 Problem High risk medication use Z79.899 Active 211952186 Problem Osteomyelitis of right foot, unspecified chronicity M86.9 Active 60840245 Problem Fatigue, unspecified type R53.83 Active 09323561 Problem Diabetes type 2, uncontrolled E11.65 Active 243821274 Problem Full incontinence of feces R15.9 Active 915260723340778 Problem Other chronic pain G89.29 Active 02085448 Problem Functional diarrhea K59.1 Active 13659318 Problem Fecal urgency R15.2 Active 60516092 Problem Depression F32.9 Active 24716325 Problem CKD (chronic kidney disease), stage 3 (moderate) N18.3 Active 608586994 Problem Hyperlipidemia, unspecified hyperlipidemia E78.5 Active 69729905 Problem CKD (chronic kidney disease) stage 3, GFR 30-59 ml/min N18.3 Active 329414761 Problem Type 2 diabetes mellitus with diabetic peripheral angiopathy without gangrene E11.51 Active 174178476 Problem Pain in left shoulder M25.512 Active 90332654 Problem Insulin long-term use Z79.4 Active 348121146 Problem Essential hypertension I10 Active 63972661 Problem Type 2 diabetes mellitus with diabetic retinopathy, macular edema presence unspecified, with unspecified retinopathy severity E11.319 Active 73048014 Problem Chronic kidney disease, unspecified N18.9 Active 075475943 Problem Type 2 diabetes mellitus with foot ulcer E11.621 Active 476118127 Problem Frequent falls R29.6 Active 012794590 Problem GERD without esophagitis K21.9 Active 516716700 Problem Mixed hyperlipidemia E78.2 Active 352501472 ALLERGIES No Information ENCOUNTERS Encounter Location Date Diagnosis [facility] [address] [id number] Feb, Diabetes type 2, uncontrolled E11.65 [facility] [address] [id number] Feb, Other chronic pain G89.29 [facility] [place] [id number] [place] [address] [id number] Jan, [facility] [place] [id number] [place] [address] [id number] Jan, [facility] [place] [address] [id number] Jan, [facility] [address] [id number] Jan, Other chronic pain G89.29 [facility] [place] [address] [id number] December, Mixed stress and urge urinary incontinence N39.46 [place] [id number] [id number] December, Chronic fatigue R53.[address] [place] [address] [id number] December, Other chronic pain G89.29 [address] [place] [address] [id number] December, Diabetes type 2, uncontrolled E11.65 ; [...] type J44.9 and Other chronic pain G89.29 [facility] [address] [address] December, [address] [place] [address] [id number] December, Medicare annual wellness visit, subsequent Z00.00 ; Type 2 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 ; Chronic obstructive pulmonary disease, unspecified COPD type J44.9 ; Depression F32.9 ; Peripheral vascular disease I73.9 ; 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 ; Hypercholesterolemia E78.0 ; GERD without esophagitis K21.9 and Chronic kidney disease, unspecified N18.9 [address] [place] [address] [id number] December, Mixed stress and urge urinary incontinence N39.46 ; Full incontinence of feces R15.9 ; Fecal urgency R15.2 ; Functional diarrhea K59.1 and Type 2 diabetes mellitus with diabetic neuropathy E11.40 [address] [place] [address] [id number] Nov, Other chronic pain G89.29 [address] [id number] Oct, [place] [id number] [place] [address] [id number] Oct, [address] [place] [address] [id number] Oct, Other chronic pain G89.29 [place] [id number] [place] [address] [id number] Sep, Other chronic pain G89.29 [place] [id number] [place] [address] [id number] Aug, CKD (chronic kidney disease), stage 3 (moderate) N18.3 ; Anemia, unspecified type D64.9 and Dilated pore of Ly L70.8 [place] [id number] [place] [address] [id number] Aug, Other chronic pain G89.29 ; Pain in left shoulder M25.512 ; High risk medication use Z79.899 ; Uses walker Z99.89 ; Diabetes type 2, uncontrolled E11.65 and Depression F32.9 [place] [id number] [place] [address] [id number] Aug, Chronic diarrhea K52.9 [address] [place] [address] [id number] Aug, Chronic diarrhea K52.9 ; Type 2 diabetes mellitus with diabetic neuropathy E11.40 ; Diabetes type 2, uncontrolled E11.65 ; Insulin long-term use Z79.4 ; Chronic obstructive pulmonary disease, unspecified COPD type J44.9 ; Chronic pain syndrome G89.4 ; Pain in left shoulder M25.512 ; Uses walker Z99.89 ; S/P coronary artery stent placement Z95.5 ; Mixed hyperlipidemia E78.2 and Essential hypertension I10 [address] [place] [address] [id number] Aug, [place] [id number] [place] [address] [id number] Jul, Diabetes type 2, uncontrolled E11.[address] [id number] [id number] Jul, Diabetes type 2, uncontrolled E11.65 ; Type 2 diabetes mellitus with diabetic neuropathy E11.40 ; Insulin long-term use Z79.4 and Chronic obstructive pulmonary disease, unspecified COPD type J44.[address] [id number] [id number] Jun, [address] [place] [address] [id number] Jun, Essential hypertension I10 [address] [id number] [id number] Jun, Essential hypertension I10 [address] [place] [address] [id number] Jun, Type 2 diabetes mellitus with diabetic neuropathy E11.40 ; Type 2 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 ; S/P coronary artery stent placement Z95.5 ; Obesity (BMI 30.0-34.9) E66.9 ; Mixed hyperlipidemia E78.2 ; Frequent falls R29.6 ; Chronic obstructive pulmonary disease, unspecified COPD type J44.9 ; Essential hypertension I10 ; Insulin long-term use Z79.4 and High risk medication use Z79.899 [place] [id number] [place] [address] [id number] May, Diarrhea, unspecified type R19.7 ; Type 2 diabetes mellitus with diabetic neuropathy E11.40 ; Chronic obstructive pulmonary disease, unspecified COPD type J44.9 ; S/P coronary artery stent placement Z95.5 ; High risk medication use Z79.899 ; Essential hypertension I10 ; Encounter for administration of vaccine Z23 and Encounter for immunization Z23 [facility] [place] [address] [facility] [address] [id number] [place] [id number] May, Chronic obstructive pulmonary disease, unspecified COPD type J44.[address] [id number] [id number] May, Type 2 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 ; Encounter for immunization Z23 ; Needs flu shot Z23 ; Comprehensive diabetic foot examination, type 2 DM, encounter for E11.9 and Obesity (BMI 30.0-34.9) E66.9 [facility] [address] [place] [address] [id number] May, [facility] [address] [id number] [place] [address] [id number] Apr, [place] [id number] [place] [address] [id number] Apr, Essential hypertension I10 and Aphasia R47.01 [place] [id number] [place] [address] [id number] Apr, [place] [id number] [place] [address] [id number] Apr, Type 2 diabetes mellitus with diabetic neuropathy E11.40 ; Frequent falls R29.6 ; Essential hypertension I10 ; S/P coronary artery stent placement Z95.5 ; High risk medication use Z79.899 ; Hyperlipidemia, unspecified hyperlipidemia E78.5 ; CKD (chronic kidney disease), stage 3 (moderate) N18.3 ; Pain in left shoulder M25.512 and Chronic obstructive pulmonary disease, unspecified COPD type J44.9 [address] [place] [address] [id number] Mar, [place] [id number] [place] [address] [id number] Mar, Type 2 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 ; Leg wound, left, initial encounter S81.802A ; Hx of shoulder surgery Z98.890 ; Acute pain of left shoulder M25.512 and Fall, initial encounter W19.XXXA [address] [place] [address] [id number] Feb, Follow-up exam Z09 ; Hx of shoulder surgery Z98.890 ; Acute pain of left shoulder M25.512 ; Essential hypertension I10 and Leg wound, left, initial encounter S81.802A [facility] [id number] [place] [address] [id number] Feb, [place] [id number] [place] [address] [id number] Feb, [place] [id number] [place] [address] [id number] Feb, Chronic obstructive pulmonary disease, unspecified COPD type J44.9 [facility] [id number] [place] [address] [id number] Feb, [facility] [place] [id number] [place] [address] [id number] Jan, Generalized weakness R53.1 ; Exertional shortness of breath R06.02 and Fungal rash of trunk B36.9 [facility] [id number] [place] [address] [id number] Jan, [facility] [place] [id number] [place] [address] [id number] Jan, [facility] [place] [id number] [place] [address] [id number] Jan, [facility] [id number] [place] [address] [id number] Jan, [facility] [id number] [place] [address] [id number] December, High risk medication use Z79.899 [facility] [id number] [place] [address] [id number] December, Type 2 diabetes mellitus with diabetic neuropathy E11.40 [facility] [id number] [place] [address] [id number] December, High risk medication use Z79.899 [facility] [id number] [place] [address] [id number] Nov, Diabetes type 2, uncontrolled E11.65 [facility] [id number] [place] [address] [id number] Nov, Medicare annual wellness visit, initial Z00.00 ; Bilateral low back pain without sciatica M54.5 ; Pain in left shoulder M25.512 ; Chronic pain syndrome G89.4 ; Type 2 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 ; High risk medication use Z79.899 and Encounter for immunization Z23 [facility] [id number] [place] [address] [id number] Nov, Type 2 diabetes mellitus with diabetic neuropathy E11.40 ; 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 and CKD (chronic kidney disease), stage 3 (moderate) N18.3 [facility] [id number] [place] [address] [id number] Oct, Type 2 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 ; Chronic pain syndrome G89.4 ; Chronic obstructive pulmonary disease, unspecified COPD type J44.9 ; Chronic kidney disease, unspecified N18.9 and Rash R21 [address] [id number] [id number] Oct, Type 2 diabetes mellitus with diabetic neuropathy E11.40 [facility] [address] [address] [id number] [place] [address] [id number] Oct, Rash R21 and Impetigo L01.00 [facility] [id number] [place] [address] [id number] Oct, Chronic pain syndrome G89.4 [place] [id number] [place] [address] [id number] Oct, [facility] [id number] [place] [address] [id number] Sep, Sebaceous cyst L72.3 [facility] [address] [id number] [place] [address] [id number] Sep, 2016 Sebaceous cyst L72.3 [facility] [id number] [place] [address] [id number] 10 Sep, 2016 Chronic pain syndrome G89.4 ; Pain in left shoulder M25.512 and Effusion of olecranon bursa, left M25.422 [facility] [address] [address] Aug, [facility] [address] [place] [address] [id number] Aug, [place] [id number] [place] [address] [id number] Aug, Mixed hyperlipidemia E78.2 and Chronic kidney disease, unspecified N18.9 [place] [id number] [place] [address] [id number] Jul, Type 2 diabetes mellitus with diabetic neuropathy E11.40 ; Essential hypertension I10 and S/P coronary artery stent placement Z95.5 [facility] [id number] [place] [address] [id number] Jul, 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 [facility] [id number] [place] [address] [id number] Jul, Diabetes type 2, uncontrolled E11.65 ; Essential hypertension I10 and 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 [facility] [id number] [place] [address] [id number] Jul, [facility] [id number] [place] [address] [id number] Jul, [facility] [id number] [place] [address] [id number] Jul, [facility] [id number] [place] [address] [id number] Jul, Chronic obstructive pulmonary disease, unspecified COPD type J44.9 [facility] [id number] [place] [address] [id number] Jun, CKD (chronic kidney disease), stage 3 (moderate) N18.3 and Anemia, unspecified type D64.9 [place] [id number] [place] [address] [id number] Jun, Type 2 diabetes mellitus with diabetic neuropathy E11.40 ; Decreased GFR R94.4 ; CKD (chronic kidney disease), stage 3 (moderate) N18.3 and Decreased hemoglobin R71.0 [place] [id number] [place] [address] [id number] Jun, CKD (chronic kidney disease), stage 3 (moderate) N18.3 and Anemia, unspecified type D64.9 [address] [place] [address] [id number] Jun, Type 2 diabetes mellitus with diabetic neuropathy E11.40 ; Decreased GFR R94.4 and CKD (chronic kidney disease), stage 3 (moderate) N18.3 [address] [place] [address] [id number] Jun, Type 2 diabetes mellitus with diabetic neuropathy E11.40 and Essential hypertension I10 [address] [id number] Jun, [place] [id number] [place] [address] [id number] Jun, [address]100[place], [place] [id number] Jun, Type 2 diabetes mellitus with diabetic neuropathy E11.40 ; S/P coronary artery stent placement Z95.5 ; Chronic obstructive pulmonary disease, unspecified COPD type J44.9 ; Essential hypertension I10 ; GERD without esophagitis K21.9 ; Peripheral vascular disease I73.9 ; Mixed hyperlipidemia E78.2 and Hospital discharge follow-up Z09 [place] [id number] [place] [address] [id number] Jun, [place] [id number] [place] [address] [id number] May, Depression F32.9 and Hyperlipidemia, unspecified hyperlipidemia E78.5 [facility] [id number] [phone] May, [address] [place] [address] [id number] May, [place] [id number] [place] [address] [id number] May, Essential hypertension I10 ; Chronic pain syndrome G89.4 ; Pain in left shoulder M25.512 ; High risk medication use Z79.899 ; Chronic obstructive pulmonary disease, unspecified COPD type J44.9 ; S/P coronary artery stent placement Z95.5 ; Personal history of carotid stenosis Z86.79 ; Hyperlipidemia, unspecified hyperlipidemia E78.5 ; Decreased GFR R94.4 and Type 2 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 [address] [place] [address] [id number] May, Hemoglobin decreased R71.0 and Decreased GFR R94.4 [address] [place] [address] [id number] May, Hemoglobin decreased R71.0 and Decreased GFR R94.4 [facility] [id number], [place] [id number] May, [facility] [id number] [place] [address] [id number] May, [facility] [address] [id number] [place] [address] [id number] Apr, [facility] [id number] [place] [address] [id number] Apr, Type 2 diabetes mellitus with foot [...] unspecified hyperlipidemia E78.5 and Essential hypertension I10 [facility] [address] [place] [id number] [place] [address] [id number] Apr, [place] [id number] [place] [address] [id number] Mar, [place] [address] [place] [id number] [place] [address] [id number] Mar, [facility] [address] [id number] [address] Mar, [facility] [id number], [place] [id number] Feb, [facility] [id number] [place] [address] [id number] Feb, [facility] [id number] [place] [address] [id number] Feb, [facility] [address] [place] [id number] [place] [address] [id number] Jan, Type 2 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 ; Hypercholesterolemia E78.0 ; Chronic pain syndrome G89.4 ; Pain in left shoulder M25.512 and High risk medication use Z79.899 [facility] [address] [id number] [id number] Jan, [facility] [id number], [place] [id number] Jan, [facility] [id number], [place] [id number] December, [facility] [id number], [place] [id number] December, [facility] [id number] [place] [address] December, Diabetes type 2, uncontrolled E11.65 ; Type 2 diabetes mellitus with diabetic neuropathy E11.40 ; Peripheral vascular disease I73.9 ; 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 and 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 [facility] [id number], [place] [id number] Nov, [facility] [id number] [place] [address] [id number] Nov, [facility] [id number] [place] [address] [id number] Nov, [facility] [id number], [place] [id number] Nov, Right hip pain M25.551 [facility] [id number] [place] [address]- [address] Nov, [facility] [address] [place] [address]- 2546 Nov, [facility] [id number] [place] [address] [id number] Nov, Diabetes with neurological manifestations, type II or unspecified type, 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.60 [facility] [id number] [place] [address] [id number] Nov, [facility] [id number], [place] [id number] Nov, [facility] [id number], [place] [id number] Oct, Diabetes type 2, uncontrolled E11.65 ; Type 2 diabetes mellitus with diabetic neuropathy, unspecified E11.40 and Low back pain M54.5 [facility] [address] [id number], [place] [id number] Oct, [facility] [address] [id number], [place] [id number] Oct, [facility] [place] [address] [id number], [place] [id number] Oct, [facility] [place] [id number] [place] [address] [id number] Sep, [facility] [address] [id number], [place] [id number] Sep, [facility] [address] [address] Sep, [facility] [id number], [place] [id number] Sep, [facility] [id number] [place] [address] [id number] Sep, [facility] [id number], [place] [id number] Aug, 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 [facility] [id number] [place] [address] [id number] Aug, [facility] [id number], [place] [id number] Aug, Allergic rhinitis due to pollen J30.1 [place] [address] [facility] [address] [id number], [place] [id number] Jul, [facility] [address] [facility] [id number], [place] [id number] Jul, [facility] [address] [facility] [id number], [place] [id number] Jul, [facility] [id number], [place] [id number] Jun, [facility] [id number], [place] [id number] Jun, Thumb tendonitis M77.8 and Ringing in ear, bilateral H93.13 [facility] [address] [id number], [place] [id number] Jun, [address]005[address]100[place], [place] [id number] May, [place] [address]100[place] [address] May, [place] [address] [address] May, Pre-op evaluation Z01.818 ; Encounter for immunization Z23 ; Type 2 diabetes mellitus with diabetic peripheral angiopathy without gangrene E11.51 ; Insulin long-term use Z79.4 ; Type 2 diabetes mellitus with foot ulcer E11.621 ; Peripheral vascular disease I73.9 ; 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 ; S/P coronary artery stent placement Z95.5 ; Osteomyelitis of right foot, unspecified chronicity M86.9 and Chronic obstructive pulmonary disease, unspecified COPD type J44.9 [place] [id number] [facility] [id number] [place] [address] May, [id number] [id number] May, [address], [place] [id number] May, Diabetes type 2, uncontrolled E11.65 ; Encounter for immunization Z23 ; Osteopenia M85.80 and Allergic rhinitis due to pollen J30.1 [facility] [address] [facility] [id number] [id number] May, Lumbago 724.2 [facility] [address] [facility][1] [id number], [place] [id number] Apr, [facility] [id number], [place] [id number] Apr, [address] [id number], [place] [id number] Apr, [place] [id number] [id number] Apr, [facility] [address]00565100[place] [address] Mar, [facility] [address] [id number] [place] [id number] Mar, [facility] [address] [id number] [place] 641195077 Mar, [facility] [address] [id number] [place] [id number] Mar, [facility] [address] [id number] [place] [id number] Mar, [facility] [id number] [place] [address] 2546 Mar, [facility] [id number] [place] [id number] Mar, [facility] [id number] [place] [id number] Mar, Diabetes with neurological manifestations, type II or unspecified type, 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.60 and Severe obesity (BMI 35.0-35.9 with comorbidity) 278.01 [facility] [id number], [place] [id number] Mar, [facility] [id number] [address] Mar, [facility] [address]00565100[place] [address] 2546 Feb, [facility] [id number], [place] 925758180 Feb, [facility] [address] [id number], [place] [id number] Feb, [facility] [id number], [place] 650803456 Feb, Diabetes with neurological manifestations, type II or unspecified type, 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.60 [facility] [address] [id number], [place] 484019490 Feb, [facility] [address]00565100[place] [address]- [address] Feb, [facility] [id number], [place] 445463680 Feb, [facility] [id number] [place] [address] [id number] Feb, Follow up V67.9 ; Diabetes with neurological manifestations, type II or unspecified type, 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.60 and Congestive heart failure 428.0 [facility] [address] [id number] [place] [address] [id number] Jan, [facility] [id number] [place] [address] [id number] Jan, [facility] [id number] [place] [address] [id number] Jan, [facility] [id number] [place] [address] [id number] December, Otitis media with effusion 381.4 ; Left arm numbness 782.0 and Osteoporosis 733.00 [facility] [id number], [place] 442143947 December, [facility] [id number], [place] [id number] Nov, [facility] [id number], [place] 010385931 Nov, Serous otitis media 381.4 and Lumbago 724.2 [facility] [id number] [address] Nov, [facility] [address]00565100[place] [address]- 25[address] Nov, [facility] [id number], [place] [id number] Oct, [facility] [address]00565100[place] [address]- 25[address] Oct, [facility] [id number], [place] 596103758 Oct, [facility] [address]00565100[place] [address]- 8[address] Oct, [facility] [address] [facility] [id number], [place] [id number] Oct, [facility] [place] [facility] [address] [facility] [id number] [place] [address]- [address] Oct, [facility] [place] [facility] [address] [facility] [id number] [place] [address]- 69[address] Sep, [facility] [place] [facility] [address] [facility] [id number] [place] [address]- [address] Sep, [facility] [address] [facility] [id number], [place] [id number] Sep, [facility] [place] [facility] [address]00565100[place] [address]- [address] Sep, [facility] [id number], [place] [id number] Aug, [facility] [place] [facility] [address]00565100[place] [address]- 79[address] Aug, [facility] [address] [facility] [id number], [place] [id number] Aug, [facility] [place] [facility] [address]00565100[place] [address]- 36[address] Aug, [facility] [address] [facility] [id number], [place] [id number] Jul, [facility] [place] [facility] [address] [facility] [id number] [place] [address]- 7286 Jul, [facility] [address] [facility] [id number], [place] [id number] Jul, [facility] [place] [facility] [address] [facility] [id number] [place] [address]- 7836 Jul, [facility] [address] [facility] [id number], [place] [id number] Jul, [facility] [place] [facility] [address] [place] [address] [id number] [address]- 8664 Jul, [facility] [address] [id number] [place] [id number] Jun, [facility] [place] [facility] [address] [facility] [id number] [place] [address]- 2546 Jun, [facility] [address] [facility] [id number] [place] [id number] May, [facility] [place] [facility] [address] [facility] [id number] [place] [address] 2546 May, [facility] [address] [facility] [id number], [place] 990922475 May, [facility] [place] [facility] [address] [facility] [id number] [place] [address]- 5806 May, [facility] [address] [facility] [id number], [place] [id number] May, [facility] [place] [facility] [address] [facility] [id number] [place] [address]- 8[address] May, [facility] [address] [facility] [id number], [place] [id number] May, [facility] [place] [address] [facility] [id number], [place] [id number] May, [facility] [place] [facility] [address] [facility] [id number] [place] [address]- 7096 May, [facility] [address] [facility] [id number] [place] [address]- 1056 May, [facility] [address] [facility] [id number], [place] 505870290 May, [facility] [place] [address] [facility] [id number] [place] [address]- 0946 May, [facility] [place] [address] [facility] [id number] [place] [address]- 9146 Apr, [facility] [address] [facility] [id number], [place] [id number] Apr, [facility] [place] [facility] [address] [facility] [id number] [place] [address]- 6614 Apr, [facility] [address] [id number] [place] [id number] Apr, [facility] [address] [id number] [place] [id number] Apr, [facility] [place] [facility] [address] [facility] [id number] [place] [address]- 4819 Apr, [facility] [place] [facility] [address] [facility] [id number] [place] [address]- 8503 Apr, [facility] [address] [facility] [id number] [place] [id number] Apr, [facility] [place] [facility] [address] [facility] [id number] [place] [address]- 7974 Apr, [facility] [address] [facility] [id number] [place] [id number] Apr, [facility] [place] [facility] [address]00565100[place] [address]- 6[address] Apr, [facility] [address] [facility] [id number], [place] [id number] Apr, [facility] [place] [facility] [address] [facility] [id number] [place] [address]- 2635 Apr, [facility] [address] [facility] [id number], [place] [id number] Apr, [facility] [place] [facility] [address] [facility] [id number] [place] [address]- 8650 Apr, [facility] [address] [facility] [id number], [place] [id number] Apr, [facility] [place] [facility] [address] [facility] [id number] [place] [address]- 7400 Apr, [facility] [address] [facility] [id number], [place] [id number] Apr, [facility] [place] [facility] [address] [facility] [id number] [place] [address]- 9394 Apr, [facility] [address] [facility] [id number], [place] [id number] Mar, [facility] [place] [facility] [address] [id number] [place] [address]- 5988 Mar, [facility] [address] [id number] [place] [id number] Mar, [facility] [address] [id number] [place] [id number] Mar, [facility] [place] [facility] [address] [id number] [place] [address]- 7963 Mar, [facility] [place] [facility] [address] [id number] [place] [address]- 3119 Mar, [facility] [address] [id number] [place] [id number] Mar, [facility] [place] [facility] [address] [facility] [id number] [place] [address]- 4954 Mar, [facility] [address] [id number] [place] [id number] Mar, [facility] [place] [facility] [address] [id number] [place] [address]- 3174 Mar, [facility] [address] [id number] [place] [id number] Mar, [facility] [place] [facility] [address] [facility] [id number] [place] [address]- 3384 Mar, [facility] [address] [id number] [place] [id number] Mar, [facility] [place] [facility] [address] [facility] [id number] [place] [address]- 1581 Mar, [facility] [address] [id number] [place] [id number] Mar, [facility] [place] [facility] [address] [facility] [id number] [place] [address]- 6440 Mar, [facility] [address] [id number] [place] [id number] Mar, [facility] [place] [facility] [address] [facility] [id number] [place] [address]- 8556 Mar, [facility] [address] [id number] [place] [id number] Mar, [facility] [place] [facility] [address] [id number] [place] [address]- 5027 Mar, [facility] [address] [id number] [place] [id number] Feb, [facility] [place] [facility] [address] [facility] [id number] [place] [address]- 3644 Feb, [facility] [address] [id number] [place] [id number] Feb, [facility] [place] [facility] [address] [facility] [id number] [place] [address]- 3754 Feb, [facility] [address] [id number] [place] [id number] Feb, [facility] [place] [facility] [address] [facility] [id number] [place] [address]- 2568 Feb, [facility] [address] [id number] [place] [id number] Feb, [facility] [place] [facility] [address] [facility] [id number] [place] [address]- 4809 Feb, [facility] [address] [id number] [place] [id number] Feb, [facility] [place] [facility] [address] [facility] [id number] [place] [address]- 9778 Feb, [facility] [address] [id number] [place] [id number] Feb, [facility] [place] [facility] [address] [id number] [place] [address]- 0951 Feb, [facility] [address] [id number] [place] [id number] Feb, [facility] [place] [facility] [address] [facility] [id number] [place] [address]- 4103 Feb, [facility] [address] [id number] [place] [id number] Feb, [facility] [place] [facility] [address] [id number] [place] [address]- 2446 Feb, [facility] [address] [id number] [place] [id number] Feb, [facility] [place] [facility] [address] [id number] [place] [address]- 4270 Feb, [facility] [address] [id number] [place] [id number] Feb, [facility] [address] [id number] [place] [id number] Feb, [facility] [place] [facility] [address] [id number] [place] [address]- 3757 Feb, [facility] [place] [facility] [address] [facility] [id number] [place] [address]- 2027 Feb, [facility] [address] [id number] [place] [id number] Feb, [facility] [place] [facility] [address] [facility] [id number] [place] [address]- 2529 Feb, [facility] [address] [id number] [place] [id number] Feb, [facility] [place] [facility] [address] [facility] [id number] [place] [address]- 2049 Feb, [facility] [address] [id number] [place] [id number] Feb, [facility] [place] [facility] [address] [facility] [id number] [place] [address]- 6677 Feb, [facility] [address] [id number] [place] [id number] Jan, [facility] [place] [facility] [address] [facility] [id number] [place] [address]- 7076 Jan, [facility] [place] [facility] [address] [facility] [id number] [place] [address]- 5217 Jan, [facility] [place] [facility] [address] [facility] [id number] [address]- 9957 Jan, [facility] [place] [facility] [address] [facility] [id number] [address]- 5024 Jan, [facility] [place] [facility] [address] [facility] [id number] [place] [address]- 2282 Jan, [facility] [address] [facility] [id number], [place] [id number] Jan, [facility] [place] [facility] [address] [facility] [id number] [place] [address]- 3610 Jan, [facility] [place] [facility] [address] [facility] [id number] [place] [address]- 5755 Jan, [facility] [place] [facility] [address] [facility] [id number] [address]- 4857 Jan, [facility] [address] [facility] [id number], [place] 712537302 Jan, [facility] [address] [facility] [id number], [place] [id number] Jan, [facility] [place] [facility] [address] [facility] [id number] [place] [address]- 3138 Jan, [facility] [place] [facility] [address] [facility] [id number] [place] [address]- 7049 Jan, [facility] [address] [id number], [place] [id number] Jan, [facility] [address] [facility] [id number], [place] [id number] Jan, [facility] [place] [facility] [address] [facility] [id number] [place] [address]- 2772 Jan, [facility] [place] [facility] [address] [facility] [id number] [place] [address]- 4713 Jan, [facility] [place] [facility] [address] [facility] [id number] [place] [address]- 7286 Jan, [facility] [address] [facility] [id number], [place] 853017623 December, [facility] [place] [facility] [address] [id number] [place] [address]- 5105 December, [facility] [place] [facility] [address] [id number] [place] [address]- 1906 December, [facility] [address] [facility] [id number] [place] [id number] December, [facility] [place] [facility] [address] [id number] [place] [address]- 1026 December, [facility] [address] [id number] [place] [id number] December, [facility] [address] [id number] [place] [address]- 4161 December, [facility] [address] [facility] [id number] [place] [id number] December, [facility] [address] [facility] [id number] [place] [address]- 4046 December, [facility] [address] [facility] [id number], [place] [id number] Nov, [facility] [place] [facility] [address] [id number] [place] [address]- 5148 Nov, [facility] [address] [facility] [id number], [place] 749777716 Nov, [facility] [place] [facility] [address] [id number] [place] [address]- 2174 Nov, [facility] [place] [facility] [address] [id number] [address]- 9219 Nov, [facility] [place] [facility] [address] [id number] [place] [address]- 2159 Nov, [facility] [place] [facility] [address] [facility] [id number] [place] [address]- 7340 Oct, [facility] [address] [facility] [id number] [place] [id number] Oct, [facility] [place] [facility] [address] [id number] [place] [address]- 1090 Oct, [facility] [address] [id number] [place] [id number] Oct, [facility] [place] [facility] [address] [facility] [id number] [place] [address]- 9876 Oct, [facility] [address] [facility] [id number] [place] [id number] Sep, [facility] [place] [facility] [address] [facility] [id number] [place] 325815- 7786 Sep, [facility] [address] [facility] [id number] [place] [id number] Aug, [facility] [place] [facility] [address] [facility] [id number] [place] 5495[place]- 0960 Aug, [facility] [address] [id number], [place] [id number] Aug, [facility] [place] [facility] [address]00565100[place] [address]- 0764 Aug, [facility] [place] [facility] [address] [facility] [id number] [place] [address]- 5856 Aug, [facility] [address] [facility] [id number], [place] [id number] Aug, [facility] [place] [facility] [address]00565100[place] [address]- 7292 Aug, [facility] [place] [facility] [address] [facility] [id number] [place], [place] 227052- 8826 Aug, [facility] [address] [facility] [id number], [place] [id number] Aug, [facility] [place] [facility] [address] [facility] [id number] [place] [address]- 3264 Aug, [facility] [address] [facility] [id number] [place] [id number] Jul, [facility] [place] [facility] [address] [facility] [id number] [place] [address]- 5392 Jul, [facility] [address] [facility] [id number] [place] [id number] Jul, [facility] [address] [id number] [place] [address] Jul, [facility] [place] [address] [id number] [place] [id number] Jul, [facility] [address] [facility] [id number] [place] [address] Jul, [facility] [place] [address] [id number] [place] [id number] Jul, [facility] [address] [facility] [id number] [place] [address] Jul, [facility] [place] [address] [id number][place] [id number] Jun, [facility] [address] [id number] [address] Jun, [facility] [place] [address] [id number][place] [id number] Jun, [facility] [address] [facility] [id number] [place] [address] Jun, [facility] [address] [facility] [id number] [place] [address] Jun, [facility] [address] [id number] [place] [address] Jun, [facility] [place] [address] [id number][place] [id number] Apr, [facility] [place] [address] [id number] [place] [id number] Mar, [facility] [place] [address] [id number] [place] [id number] Mar, [facility] [place] [address] [id number] [place] [id number] Feb, [facility] [place] [address] [id number][place] [id number] Feb, [facility] [place] [address] [id number] [place] [id number] Feb, [facility] [place] [address] [id number] [place] [id number] December, [facility] [place] [address] [id number] [place] [id number] December, [facility] [address] [id number] [place] [address] December, [facility] [place] [address] [id number] [place] [id number] December, [facility] [place] [address] [id number] [place] [id number] December, [facility] [place] [address] [id number] [place] [id number] Nov, [facility] [place] [address] [id number] [place] [id number] Nov, [facility] [place] [address] [id number] [place] [id number] Nov, [facility] [place] [address] [id number] [place] [id number] Oct, [facility] [place] [address] [id number] [place] [id number] Sep, [facility] [place] [address] [id number] [place] [id number] Aug, [facility] [address] [id number] [place] [address] Aug, [facility] [place] [address] [id number] [place] [id number] Aug, [facility] [place] [address] [id number] [place] [id number] Jul, [facility] [address] [id number] [place] [address] Jul, [facility] [place] [address] [id number] [place] [id number] Jul, [facility] [address] [facility] [id number] [place] [address] Jul, [facility] [place] [address] [id number] [place] [id number] Jun, [facility] [address] [id number] [place] [address] Jun, [facility] [place] [address] [id number] [place] [id number] May, [facility] [address] [facility] [id number] [place] [address] May, [facility] [place] [address] [id number] [place] [id number] May, [facility] [address] [id number] [place] [address] May, [facility] [place] [address] [id number] [place] [id number] Apr, [facility] [place] [address] [id number] [place] [id number] Apr, [facility] [place] [address] [id number] [place] [id number] Mar, [facility] [place] [address] [id number] [place] [id number] Mar, [facility] [place] [address] [id number] [place] [id number] Feb, [facility] [place] [address] [id number] [place] [id number] Feb, [facility] [place] [address] [id number] [place] [id number] Jan, [facility] [place] [address] [id number] [place] [id number] Jan, [facility] [address] [id number] [place] [id number] Jan, [facility] [address] [id number] [place] [id number] Jan, [facility] [place] [address] [id number] [place] [id number] December, [facility] [place] [address] [id number] [place] [id number] December, [facility] [address] [facility] [id number] [place] [address] Nov, [facility] [address] [id number] [place] [id number] Nov, [facility] [address] [id number] [place] [id number] Nov, [facility] [address] [id number] [place] [id number] Nov, [facility] [address] [id number] [place] [id number] Nov, [facility] [address] [facility] [id number] [place] [address] Oct, [facility] [place] [facility] [address] [facility] [id number] [place] [address] Oct, [facility] [address] [id number] [place] [id number] Oct, [facility] [address] [id number] [place] [id number] Oct, [facility] [address] [id number] [place] [id number] Oct, [facility] [address] [id number] [place] [id number] Oct, [facility] [address] [id number] [place] [id number] Oct, [facility] [address] [id number] [place] [id number] Oct, [facility] [address] [id number] [place] [id number] Oct, [facility] [address] [facility] [id number] [address] Oct, [facility] [address] [id number] [place] [id number] Sep, [facility] [address] [id number] [place] [id number] Sep, [facility] [address] [id number] [place] [id number] Aug, [facility] [address] [facility] [id number] [id number] Aug, [facility] [address] [facility] [id number] [place] [address] Jul, [facility] [address] [facility] [id number] [place] [address] Jul, [facility] [address] [facility] [id number] [place] [address] Jul, [facility] [address] [id number] [place] [address] Jul, [facility] [address] [facility] [id number] [place] [address] Jul, [facility] [id number] [address] Jul, [facility] [id number] [address] Jul, [facility] [address] [id number] [address] Jul, [facility] [id number] [address] Jul, [facility] [address] [id number] [address] Jul, [facility] [address] [id number] [address] Jul, [facility] [address] [id number] [address] Jul, [facility] [address] [id number] [address] Jul, [facility] [address] [id number] [address] Jul, IMMUNIZATIONS No Known Immunizations SOCIAL HISTORY Never Assessed REASON FOR VISIT Controlled Med Refill PLAN OF CARE VITAL SIGNS MEDICATIONS Medication Instructions Dosage Frequency Start Date End Date Duration Status Tramadol HCl 50 mg Orally 3 times a day, must last 28 days 1 tablet 0 days Active RESULTS No Results PROCEDURES No Known [...] in the future. Medical History 05/26/17 noted, half-way has ended and they feel he is [...] artery (Natan) 10/2011 Surgical History cataract-lens implants-bilateral ([facility]ston) 05/2014 Surgical History Left eye retinal eye repair ([facility]) 06/2014 Surgical History amputation, toe-right third toe (Nisreen) 2013 Surgical History Right eye retinal eye repair ([facility]) 09/2014 Surgical History heart cath with stent [...]
--- OUTSIDE RECORDS SUMMARY | 2018-06-20 09:59 | XMS REPORT ---
Author Author SATINDER GOOD [facility] Address [address] [place] [address] Care Team Providers Care Watch Manufacturing Supervisor Name Role Phone SATINDER GOOD Unavailable PROBLEMS Type Condition ICD9-CM Code NUZ00-JT Code Onset Dates Condition Status SNOMED Code Problem Chronic obstructive pulmonary disease, unspecified COPD type J44.9 Active 57317109 Problem Peripheral vascular disease I73.9 Active 976919732 Problem Type 2 diabetes mellitus with diabetic neuropathy E11.40 Active 42985688 Problem S/P coronary artery stent placement Z95.5 Active 479623899 Problem Osteomyelitis of right foot, unspecified chronicity M86.9 Active 19050432 Problem Type 2 diabetes mellitus with diabetic retinopathy, macular edema presence unspecified, with unspecified retinopathy severity E11.319 Active 15891235 Problem Bilateral low back pain without sciatica M54.5 Active 616998196 Problem 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 Active 710642521 Problem 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 Active 890678300 Problem Frequent falls R29.6 Active 703457016 Problem Hypercholesterolemia E78.0 Active 10239233 Problem Comprehensive diabetic foot examination, type 2 DM, encounter for E11.9 Active 46223951 Problem Type 2 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 Active 146604169 Problem Obesity (BMI 30.0-34.9) E66.9 Active 012508033645311 Problem Uses walker Z99.89 Active 617681171 Problem Aphasia R47.01 Active 31968579 Problem Functional diarrhea K59.1 Active 73995917 Problem Fecal urgency R15.2 Active 05123140 Problem Fatigue, unspecified type R53.83 Active 85310891 Problem High risk medication use Z79.899 Active 526375880 Problem Diabetes type 2, uncontrolled E11.65 Active 014509110 Problem Personal history of carotid stenosis Z86.79 Active 317445700 Problem Other chronic pain G89.29 Active 98681199 Problem Chronic diarrhea K52.9 Active 225345108 Problem Full incontinence of feces R15.9 Active 389993159865033 Problem Mixed stress and urge urinary incontinence N39.46 Active 944749154 Problem Hyperlipidemia, unspecified hyperlipidemia E78.5 Active 95017156 Problem Essential hypertension I10 Active 01657194 Problem Coronary artery disease involving [place] coronary artery of [place]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 Active 2482341327171 Problem CKD (chronic kidney disease), stage 3 (moderate) N18.3 Active 773849587 Problem Insulin long-term use Z79.4 Active 808006177 Problem Chronic pain syndrome G89.4 Active 892044938 Problem Depression F32.9 Active 67022171 Problem Pain in left shoulder M25.512 Active 86637604 Problem Type 2 diabetes mellitus with foot ulcer E11.621 Active 098968651 Problem Mixed hyperlipidemia E78.2 Active 782073480 Problem Type 2 diabetes mellitus with diabetic peripheral angiopathy without gangrene E11.51 Active 883324546 Problem Chronic kidney disease, unspecified N18.9 Active 850946540 Problem CKD (chronic kidney disease) stage 3, GFR 30-59 ml/min N18.3 Active 173943041 Problem GERD without esophagitis K21.9 Active 533399630 ALLERGIES No Information ENCOUNTERS Encounter Location Date Diagnosis [facility] [address] [facility] [id number] [id number] December, Diabetes type 2, uncontrolled E11.65 ; [...] type J44.9 and Other chronic pain G89.29 [facility] [address] [facility] [id number] [address] December, [facility] [id number] [place] [address] [id number] December, Medicare annual wellness visit, subsequent Z00.00 ; Type 2 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 ; Chronic obstructive pulmonary disease, unspecified COPD type J44.9 ; Depression F32.9 ; Peripheral vascular disease I73.9 ; Coronary artery disease involving [place] coronary artery of [place]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 ; Hypercholesterolemia E78.0 ; GERD without esophagitis K21.9 and Chronic kidney disease, unspecified N18.9 [place] [id number] [place] [address] [id number] December, Mixed stress and urge urinary incontinence N39.46 ; Full incontinence of feces R15.9 ; Fecal urgency R15.2 ; Functional diarrhea K59.1 and Type 2 diabetes mellitus with diabetic neuropathy E11.40 [place] [id number] [place] [address] [id number] Nov, Other chronic pain G89.[address] [id number] Oct, [address] [id number] Oct, [place] [id number] [place] [address] [id number] Oct, Other chronic pain G89.29 [place] [id number] [place] [address] [id number] Sep, Other chronic pain G89.[address] [id number] Aug, CKD (chronic kidney disease), stage 3 (moderate) N18.3 ; Anemia, unspecified type D64.9 and Dilated pore of Ly L70.8 [place] [id number] [place] [address] [id number] Aug, Other chronic pain G89.29 ; Pain in left shoulder M25.512 ; High risk medication use Z79.899 ; Uses walker Z99.89 ; Diabetes type 2, uncontrolled E11.65 and Depression F32.9 [place] [id number] [place] [address] [id number] Aug, Chronic diarrhea K52.9 [facility] [id number] [place] [address] [id number] Aug, Chronic diarrhea K52.9 ; Type 2 diabetes mellitus with diabetic neuropathy E11.40 ; Diabetes type 2, uncontrolled E11.65 ; Insulin long-term use Z79.4 ; Chronic obstructive pulmonary disease, unspecified COPD type J44.9 ; Chronic pain syndrome G89.4 ; Pain in left shoulder M25.512 ; Uses walker Z99.89 ; S/P coronary artery stent placement Z95.5 ; Mixed hyperlipidemia E78.2 and Essential hypertension I10 [facility] [address] [place] [address] [id number] Aug, [address] [id number] Jul, Diabetes type 2, uncontrolled E11.65 [place] [id number] [place] [address] [id number] Jul, Diabetes type 2, uncontrolled E11.65 ; Type 2 diabetes mellitus with diabetic neuropathy E11.40 ; Insulin long-term use Z79.4 and Chronic obstructive pulmonary disease, unspecified COPD type J44.9 [place] [id number] [place] [address] [id number] Jun, [facility] [id number] [place] [address] [id number] Jun, Essential hypertension I10 [place] [id number] [place] [address] [id number] Jun, Essential hypertension I10 [place] [address] [place] [address] [id number] Jun, Type 2 diabetes mellitus with diabetic neuropathy E11.40 ; Type 2 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 ; S/P coronary artery stent placement Z95.5 ; Obesity (BMI 30.0-34.9) E66.9 ; Mixed hyperlipidemia E78.2 ; Frequent falls R29.6 ; Chronic obstructive pulmonary disease, unspecified COPD type J44.9 ; Essential hypertension I10 ; Insulin long-term use Z79.4 and High risk medication use Z79.899 [facility] [id number] [place] [address] [id number] May, Diarrhea, unspecified type R19.7 ; Type 2 diabetes mellitus with diabetic neuropathy E11.40 ; Chronic obstructive pulmonary disease, unspecified COPD type J44.9 ; S/P coronary artery stent placement Z95.5 ; High risk medication use Z79.899 ; Essential hypertension I10 ; Encounter for administration of vaccine Z23 and Encounter for immunization Z23 [address] [id number] [id number] May, Chronic obstructive pulmonary disease, unspecified COPD type J44.9 [address] [place] [address] [id number] May, Type 2 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 ; Encounter for immunization Z23 ; Needs flu shot Z23 ; Comprehensive diabetic foot examination, type 2 DM, encounter for E11.9 and Obesity (BMI 30.0-34.9) E66.9 [place] [address] [place] [address] [id number] May, [place] [id number] [place] [address] [id number] Apr, [place] [id number] [place] [address] [id number] Apr, Essential hypertension I10 and Aphasia R47.01 [address] [place] [address] [id number] Apr, [place] [address] [place] [address] [id number] Apr, Type 2 diabetes mellitus with diabetic neuropathy E11.40 ; Frequent falls R29.6 ; Essential hypertension I10 ; S/P coronary artery stent placement Z95.5 ; High risk medication use Z79.899 ; Hyperlipidemia, unspecified hyperlipidemia E78.5 ; CKD (chronic kidney disease), stage 3 (moderate) N18.3 ; Pain in left shoulder M25.512 and Chronic obstructive pulmonary disease, unspecified COPD type J44.9 [address] [place] [address] [id number] Mar, [place] [address] [place] [address] [id number] Mar, Type 2 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 ; Leg wound, left, initial encounter S81.802A ; Hx of shoulder surgery Z98.890 ; Acute pain of left shoulder M25.512 and Fall, initial encounter W19.XXXA [facility] [address] [place] [address] [id number] [place] [address] [id number] Feb, Follow-up exam Z09 ; Hx of shoulder surgery Z98.890 ; Acute pain of left shoulder M25.512 ; Essential hypertension I10 and Leg wound, left, initial encounter S81.802A [facility] [id number] [place] [address] [id number] Feb, [facility] [address] [place] [address] [id number] Feb, [facility] [id number] [place] [address] [id number] Feb, Chronic obstructive pulmonary disease, unspecified COPD type J44.9 [facility] [id number] [place] [address] [id number] Feb, [facility] [address] [place] [address] [id number] Jan, Generalized weakness R53.1 ; Exertional shortness of breath R06.02 and Fungal rash of trunk B36.9 [facility] [id number] [place] [address] [id number] Jan, [facility] [address] [id number] [place] [address] [id number] Jan, [facility] [address] [id number] [place] [address] [id number] Jan, [facility] [id number] [place] [address] [id number] Jan, [facility] [address] [place] [address] [id number] December, High risk medication use Z79.899 [facility] [id number] [place] [address] [id number] December, Type 2 diabetes mellitus with diabetic neuropathy E11.40 [facility] [address] [place], [place] [address], [place] [id number] December, High risk medication use Z79.899 [address] [place] [address] [id number] Nov, Diabetes type 2, uncontrolled E11.65 [place] [id number] [place] [address] [id number] Nov, Medicare annual wellness visit, initial Z00.00 ; Bilateral low back pain without sciatica M54.5 ; Pain in left shoulder M25.512 ; Chronic pain syndrome G89.4 ; Type 2 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 ; High risk medication use Z79.899 and Encounter for immunization Z23 [place] [id number] [place] [address] [id number] Nov, Type 2 diabetes mellitus with diabetic neuropathy E11.40 ; Coronary artery disease involving [place] coronary artery of [place]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 and CKD (chronic kidney disease), stage 3 (moderate) N18.3 [address] [place] [address] [id number] Oct, Type 2 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 ; Chronic pain syndrome G89.4 ; Chronic obstructive pulmonary disease, unspecified COPD type J44.9 ; Chronic kidney disease, unspecified N18.9 and Rash R21 [address] [id number] [id number] Oct, Type 2 diabetes mellitus with diabetic neuropathy E11.[id number] [place] [address] [id number] Oct, Rash R21 and Impetigo L01.[id number] [place] [address] [id number] Oct, Chronic pain syndrome G89.4 [address] [place] [address] [id number] Oct, [address] [place] [address] [id number] Sep, Sebaceous cyst L72.3 [address] [place] [address] [id number] Sep, Sebaceous cyst L72.3 [address] [id number] Sep, Chronic pain syndrome G89.4 ; Pain in left shoulder M25.512 and Effusion of olecranon bursa, left M25.422 [facility] [address] [address] Aug, [place] [id number] [place] [address] [id number] Aug, [place] [id number] [place] [address] [id number] Aug, Mixed hyperlipidemia E78.2 and Chronic kidney disease, unspecified N18.9 [place] [id number] [place] [address] [id number] Jul, Type 2 diabetes mellitus with diabetic neuropathy E11.40 ; Essential hypertension I10 and S/P coronary artery stent placement Z95.5 [place] [id number] [place] [address] [id number] Jul, 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 [place] [id number] [place] [address] [id number] Jul, Diabetes type 2, uncontrolled E11.65 ; Essential hypertension I10 and 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 [place] [id number] [place] [address] [id number] Jul, [place] [address] [place] [address] [id number] Jul, [address] [place] [address] [id number] Jul, [place] [address] [place] [address] [id number] Jul, Chronic obstructive pulmonary disease, unspecified COPD type J44.9 [place] [id number] [place] [address] [id number] Jun, CKD (chronic kidney disease), stage 3 (moderate) N18.3 and Anemia, unspecified type D64.9 [place] [id number] [place] [address] [id number] Jun, Type 2 diabetes mellitus with diabetic neuropathy E11.40 ; Decreased GFR R94.4 ; CKD (chronic kidney disease), stage 3 (moderate) N18.3 and Decreased hemoglobin R71.0 [place] [id number] [place] [address] [id number] Jun, CKD (chronic kidney disease), stage 3 (moderate) N18.3 and Anemia, unspecified type D64.9 [place] [id number] [place] [address] [id number] Jun, Type 2 diabetes mellitus with diabetic neuropathy E11.40 ; Decreased GFR R94.4 and CKD (chronic kidney disease), stage 3 (moderate) N18.3 [place] [id number] [place] [address] [id number] Jun, Type 2 diabetes mellitus with diabetic neuropathy E11.40 and Essential hypertension I10 [place] [id number] [place] [address] [id number] Jun, [place] [address] [place] [address] [id number] Jun, [place] [address] [place] [address] [id number] Jun, Type 2 diabetes mellitus with diabetic neuropathy E11.40 ; S/P coronary artery stent placement Z95.5 ; Chronic obstructive pulmonary disease, unspecified COPD type J44.9 ; Essential hypertension I10 ; GERD without esophagitis K21.9 ; Peripheral vascular disease I73.9 ; Mixed hyperlipidemia E78.2 and Hospital discharge follow-up Z09 [address] [place] [address] [id number] Jun, [place] [id number] [place] [address] [id number] May, Depression F32.9 and Hyperlipidemia, unspecified hyperlipidemia E78.5 [facility] [address] [address] May, [address] [place] [address] [id number] May, [address] [place] [address] [id number] May, Essential hypertension I10 ; Chronic pain syndrome G89.4 ; Pain in left shoulder M25.512 ; High risk medication use Z79.899 ; Chronic obstructive pulmonary disease, unspecified COPD type J44.9 ; S/P coronary artery stent placement Z95.5 ; Personal history of carotid stenosis Z86.79 ; Hyperlipidemia, unspecified hyperlipidemia E78.5 ; Decreased GFR R94.4 and Type 2 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 [place] [id number] [place] [address] [id number] May, Hemoglobin decreased R71.0 and Decreased GFR R94.[address] [id number] May, Hemoglobin decreased R71.0 and Decreased GFR R94.[address] [id number] May, [place] [id number] [place] [address] [id number] May, [place] [id number] [place] [address] [id number] Apr, [address] [id number] Apr, Type 2 diabetes mellitus with foot [...] unspecified hyperlipidemia E78.5 and Essential hypertension I10 [place] [id number] [place] [address] [id number] Apr, [place] [address] [place] [address] [id number] Mar, [place] [id number] [place] [address] [id number] Mar, [facility] [address] [address] Mar, [facility] [id number] [place] [address] [id number] Feb, [facility] [id number] [place] [address] [id number] Feb, [facility] [id number] [place] [address] [id number] Feb, [facility] [id number] [place] [address] [id number] Jan, Type 2 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 ; Hypercholesterolemia E78.0 ; Chronic pain syndrome G89.4 ; Pain in left shoulder M25.512 and High risk medication use Z79.899 [facility] [id number] [place] [address] [id number] Jan, [facility] [id number] [place] [address] [id number] Jan, [facility] [id number] [place] [address] [id number] December, [facility] [id number] [place] [address] [id number] December, [facility] [address] [address] December, Diabetes type 2, uncontrolled E11.65 ; Type 2 diabetes mellitus with diabetic neuropathy E11.40 ; Peripheral vascular disease I73.9 ; 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 and 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 [facility] [id number], [place] [id number] Nov, [facility] [id number] [place] [address] [id number] Nov, [facility] [id number], [place] [id number] Nov, [facility] [id number], [place] [id number] Nov, Right hip pain M25.551 [facility] [address] [address] Nov, [facility] [id number] [place] [address] Nov, [facility] [id number] [place] [address] [id number] Nov, Diabetes with neurological manifestations, type II or unspecified type, 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.60 [facility] [id number] [place] [address] [id number] Nov, [facility] [id number] [place] [address], [place] [id number] Nov, [facility] [id number] [place] [address], [place] [id number] Oct, Diabetes type 2, uncontrolled E11.65 ; Type 2 diabetes mellitus with diabetic neuropathy, unspecified E11.40 and Low back pain M54.5 [facility] [id number] [place] [address] [id number] Oct, [facility] [id number] [place] [address] [id number] Oct, [facility] [id number] [place] [address] [id number] Oct, [facility] [id number] [place] [address] [id number] Sep, [facility] [id number] [place] [address] [id number] Sep, [facility] [address] [address] Sep, [facility] [id number], [place] [phone] Sep, [facility] [id number] [place] [address] [id number] Sep, [facility] [id number] [place] [address] [id number] Aug, 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 [facility] [id number] [place] [address] [id number] Aug, [facility] [address] [facility] [id number][place] [id number] Aug, Allergic rhinitis due to pollen J30.1 [facility] [id number][place] [id number] Jul, [facility] [address] [facility] [id number][place] [id number] Jul, [facility] [id number], [place] [id number] Jul, [facility] [address] [facility] [id number][place] [id number] Jun, [place] [id number] [place] [address] [id number] Jun, Thumb tendonitis M77.8 and Ringing in ear, bilateral H93.13 [facility] [id number][place] [id number] Jun, [facility] [address] [id number], [place] [id number] May, [facility] [id number] [place] [address] [phone] May, [facility] [id number] [place] [address]- [address]80 May, Pre-op evaluation Z01.818 ; Encounter for immunization Z23 ; Type 2 diabetes mellitus with diabetic peripheral angiopathy without gangrene E11.51 ; Insulin long-term use Z79.4 ; Type 2 diabetes mellitus with foot ulcer E11.621 ; Peripheral vascular disease I73.9 ; Coronary artery disease involving [place] coronary artery of [place]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 ; S/P coronary artery stent placement Z95.5 ; Osteomyelitis of right foot, unspecified chronicity M86.9 and Chronic obstructive pulmonary disease, unspecified COPD type J44.9 [facility] [address] [place] [address] [phone]- [phone] May, [facility] [address], [place] [id number] May, [facility] [id number] [place] [address] [id number] May, Diabetes type 2, uncontrolled E11.65 ; Encounter for immunization Z23 ; Osteopenia M85.80 and Allergic rhinitis due to pollen J30.1 [facility] [id number] [place] [address] [id number] May, Lumbago 724.2 [facility] [id number] [place] [address] [phone] Apr, [facility] [id number] [place] [address] [phone] Apr, [facility] [id number] [place] [address] [id number] Apr, [facility] [id number] [place] [address] [id number] Apr, [facility] [id number] [place] [address] [phone] Mar, [facility] [id number] [place] [address] [id number] Mar, [facility] [id number] [place] [address] [id number] Mar, [facility] [id number] [place] [address] [id number] Mar, [facility] [id number] [place] [address] [id number] Mar, [facility] [id number] [place] [address] [phone]- [phone] Mar, [facility] [id number] [place] [address] [id number] Mar, [facility] [id number] [place] [address] [id number] Mar, Diabetes with neurological manifestations, type II or unspecified type, 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.60 and Severe obesity (BMI 35.0-35.9 with comorbidity) 278.01 [facility] [id number] [place] [address] [id number] Mar, [facility] [address]00565100[place] [address] Mar, [facility] [address]00565[address] [address] Feb, [facility] [address] [id number] [address]395352 Feb, [facility] [id number] [place] [address] [id number] Feb, [facility] [id number] [place] [address] [id number] Feb, Diabetes with neurological manifestations, type II or unspecified type, 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.60 [facility] [id number] [place] [address] [id number] Feb, [facility] [address] [address]- 25[address] Feb, [facility] [id number], [place] [id number] Feb, [facility] [id number], [place] [id number] Feb, Follow up V67.9 ; Diabetes with neurological manifestations, type II or unspecified type, 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.60 and Congestive heart failure 428.0 [facility] [id number], [place] [id number] Jan, [facility] [id number], [place] 187020581 Jan, [facility] [id number], [place] [id number] Jan, [facility] [id number], [place] 066650919 December, Otitis media with effusion 381.4 ; Left arm numbness 782.0 and Osteoporosis 733.00 [facility] [id number], [place] [id number] December, [facility] [id number], [place] [id number] Nov, [facility] [id number], [place] 545201160 Nov, Serous otitis media 381.4 and Lumbago 724.2 [facility] [place] [facility] [address]00565100[place] [address]- 7946 Nov, [facility] [place] [facility] [address] [id number] [address]- 2546 Nov, [facility] [id number] [place] [address] [id number] Oct, [facility] [place] [facility] [address]00565100[place] [address]- 1446 Oct, [facility] [id number] [place] [address] [id number] Oct, [facility] [place] [facility] [address]00565100[place] [address]- 8616 Oct, [facility] [id number], [place] [id number] Oct, [facility] [place] [facility] [address]00565100[place] [address]- 5[address] Oct, [facility] [place] [facility] [address]00565100[place] [address]- 2546 Sep, [facility] [place] [facility] [address]00565100[place] [address]- 8786 Sep, [facility] [id number], [place] [id number] Sep, [facility] [place] [facility] [address] [id number] [address]- 2546 Sep, [facility] [id number], [place] [id number] Aug, [facility] [place] [facility] [address]00565100[place] [address]- 2546 Aug, [facility] [address] [id number], [place] [id number] Aug, [facility] [place] [facility] [address] [facility] [id number] [address] 2546 Aug, [facility] [address] [id number], [place] [id number] Jul, [facility] [place] [facility] [address] [facility] [id number] [place] [address] 2546 Jul, [facility] [address] [facility] [id number], [place] [id number] Jul, [facility] [place] [facility] [address] [facility] [id number] [place] [address]- 0896 Jul, [facility] [address] [facility] [id number] [place] [id number] Jul, [facility] [place] [facility] [address] [facility] [id number] [place] [address]- 8905 Jul, [facility] [address] [facility] [id number], [place] [id number] Jun, [facility] [facility] [address] [facility] [id number] [place] [address]- 0271 Jun, [facility] [address] [facility] [id number], [place] [id number] May, [facility] [place] [facility] [address] [facility] [id number] [place] [address]- 3289 May, [facility] [address] [facility] [id number], [place] [id number] May, [facility] [place] [facility] [address] [facility] [id number] [place] [address]- 6803 May, [facility] [address] [facility] [id number], [place] [id number] May, [facility] [place] [facility] [address] [facility] [id number] [place] [address] 2541 May, [facility] [address] [facility] [id number], [place] [id number] May, [facility] [address] [facility] [id number], [place] [id number] May, [facility] [place] [facility] [address] [facility] [id number] [place] [address]- 8925 May, [facility] [place] [facility] [address] [facility] [id number] [place] [address]- 3775 May, [facility] [address] [facility] [id number], [place] 977829849 May, [facility] [place] [facility] [address] [facility] [id number] [place] [address]- 2500 May, [facility] [place] [facility] [address] [facility] [id number] [place] [address]- 3864 Apr, [facility] [address] [facility] [id number], [place] [id number] Apr, [facility] [place] [facility] [address] [facility] [id number] [place] [address]- 5313 Apr, [facility] [address] [id number], [place] 855277140 Apr, [facility] [address] [facility] [id number], [place] [id number] Apr, [facility] [place] [facility] [address] [facility] [id number] [place] [address]- 9041 Apr, [facility] [place] [facility] [address] [facility] [id number] [place] [address]- 1539 Apr, [facility] [address] [facility] [id number], [place] [id number] Apr, [facility] [place] [facility] [address] [facility] [id number] [place] [address]- 7281 Apr, [facility] [address] [facility] [id number], [place] 208873253 Apr, [facility] [facility] [address] [facility] [id number] [place] [address]- 5102 Apr, [facility] [address] [facility] [id number], [place] 875489821 Apr, [facility] [place] [facility] [address] [facility] [id number] [place] [address]- 7532 Apr, [facility] [address] [id number] [place] [id number] Apr, [facility] [place] [facility] [address] [facility] [id number] [place] [address]- 2936 Apr, [facility] [address] [id number] [place] [id number] Apr, [facility] [place] [facility] [address] [facility] [id number] [place] [address]- 3313 Apr, [facility] [address] [id number] [place] [id number] Apr, [facility] [place] [facility] [address] [facility] [id number] [place] [address]- 9533 Apr, [facility] [address] [id number] [place] [id number] Mar, [facility] [place] [facility] [address] [facility] [id number] [place] [address]- 8819 Mar, [facility] [address] [id number] [place] [id number] Mar, [facility] [address] [id number] [place] [id number] Mar, [facility] [place] [facility] [address] [facility] [id number] [place] [address]- 8738 Mar, [facility] [place] [facility] [address] [facility] [id number] [place] [address]- 9010 Mar, [facility] [address] [id number], [place] 608324397 Mar, [facility] [place] [facility] [address] [facility] [id number] [place] [address]- 2276 Mar, [facility] [address] [id number] [place] [id number] Mar, [facility] [place] [facility] [address] [facility] [id number] [place] [address]- 3476 Mar, [facility] [address] [id number] [place] [id number] Mar, [facility] [place] [facility] [address] [id number] [place] [address]- 1546 Mar, [facility] [address] [id number] [place] [id number] Mar, [facility] [place] [facility] [address] [facility] [id number] [place] [address]- 0804 Mar, [facility] [address] [id number] [place] [id number] Mar, [facility] [place] [facility] [address] [facility] [id number] [place] [address]- 0278 Mar, [facility] [address] [id number] [place] [id number] Mar, [facility] [place] [facility] [address] [facility] [id number] [place] [address]- 2174 Mar, [facility] [address] [facility] [id number] [place] [id number] Mar, [facility] [place] [facility] [address] [facility] [id number] [place] [address]- 0882 Mar, [facility] [address] [id number] [place] [id number] Feb, [facility] [place] [facility] [address] [facility] [id number] [place] [address]- 7555 Feb, [facility] [address] [id number] [place] [id number] Feb, [facility] [place] [facility] [address] [facility] [id number] [place] [address]- 2931 Feb, [facility] [address] [id number] [place] [id number] Feb, [facility] [place] [facility] [address] [facility] [id number] [place] [address]- 0478 Feb, [facility] [address] [id number] [place] [id number] Feb, [facility] [place] [facility] [address] [facility] [id number] [place] [address]- 1321 Feb, [facility] [address] [id number] [place] [id number] Feb, [facility] [place] [facility] [address] [id number] [place] [address]- 8010 Feb, [facility] [address] [id number] [place] [id number] Feb, [facility] [place] [facility] [address] [id number] [place] [address]- 7253 Feb, 2013 [facility] [address] [id number] [place] 645455760 Feb, [facility] [place] [facility] [address] [id number] [place] [address]- 6451 Feb, [facility] [address] [id number] [place] [id number] Feb, [facility] [place] [facility] [address] [facility] [id number] [place] [address]- 8582 Feb, [facility] [address] [id number] [place] [id number] Feb, [facility] [place] [facility] [address] [facility] [id number] [place] [address]- 5443 Feb, [facility] [address] [id number] [place] [id number] Feb, [facility] [address] [id number] [place] [id number] Feb, [facility] [place] [facility] [address] [facility] [id number] [place] [address]- 4474 Feb, [facility] [place] [facility] [address] [id number] [place] [address]- 3855 Feb, [facility] [address] [id number] [place] [id number] Feb, [facility] [place] [facility] [address] [id number] [place] [address]- 0827 Feb, [facility] [address] [id number] [place] [id number] Feb, [facility] [place] [facility] [address] [id number] [place] [address]- 8158 Feb, [facility] [address] [id number] [place] 726623125 Feb, [facility] [place] [facility] [address] [id number] [place] [address]- 1270 Feb, [facility] [address] [id number] [place] [id number] Jan, [facility] [place] [facility] [address] [id number] [place] [address]- 1347 Jan, [facility] [place] [facility] [address] [id number] [place] [address]- 3229 Jan, [facility] [place] [facility] [address] [facility] [id number] [place] [address]- 5034 Jan, [facility] [place] [facility] [address] [id number] [place] [address]- 9499 Jan, [facility] [place] [facility] [address] [id number] [place] [address]- 9353 Jan, [facility] [address] [id number] [place] [id number] Jan, [facility] [place] [facility] [address] [id number] [place] [address]- 1742 Jan, [facility] [place] [facility] [address] [id number] [place] [address]- 3262 Jan, [facility] [place] [facility] [address] [id number] [place] 66588109- 0246 Jan, [facility] [address] [id number] [place] 057875116 Jan, [facility] [address] [id number] [place] [id number] Jan, [facility] [place] [facility] [address] [id number] [place] [address]- 9927 Jan, [facility] [place] [facility] [address] [id number] [place] [address]- 2546 Jan, [facility] [address] [id number] [place] [id number] Jan, [facility] [address] [id number] [place] [id number] Jan, [facility] [place] [facility] [address] [facility] [id number] [place] [address]- 2296 Jan, [facility] [place] [facility] [address] [facility] [id number] [place] [address]- 0546 Jan, [facility] [place] [facility] [address] [id number] [place] [address]- 3286 Jan, [facility] [address] [facility] [id number] [place] [id number] December, [facility] [place] [facility] [address] [facility] [id number] [place] [address]- 0466 December, [facility] [place] [facility] [address] [facility] [id number] [place] [address]- 8116 December, [facility] [address] [facility] [id number] [place] [id number] December, [facility] [place] [facility] [address] [facility] [id number] [place] [address]- 9706 December, [facility] [address] [facility] [id number] [place] 722724721 December, [facility] [place] [facility] [address] [facility] [id number] [place] [address]- 1766 December, [facility] [address] [id number] [place] [id number] December, [facility] [place] [facility] [address] [facility] [id number] [place] [address]- 5116 December, [facility] [address] [facility] [id number] [place] [id number] Nov, [facility] [place] [facility] [address] [facility] [id number] [place] [address]- 2176 Nov, [facility] [address] [facility] [id number], [place] 208438056 Nov, [facility] [place] [facility] [address] [facility] [id number] [place] [address]- 0638 Nov, [facility] [place] [facility] [address] [facility] [id number] [place] [address]- 5042 Nov, [facility] [place] [facility] [address] [facility] [id number] [place] [address]- 5536 Nov, [facility] [place] [facility] [address] [facility] [id number] [place] [address]- 6172 Oct, [facility] [address] [facility] [id number] [place] [id number] Oct, [facility] [place] [facility] [address] [id number] [address]- 3771 Oct, [facility] [address] [facility] [id number], [place] 203109019 Oct, [facility] [place] [facility] [address] [facility] [id number] [place] [address]- 1176 Oct, [facility] [address] [facility] [id number], [place] 192699737 Sep, [facility] [place] [facility] [address]00565100[place] [address]- 5092 Sep, [facility] [address] [facility] [id number], [place] 956221642 Aug, [facility] [place] [facility] [address] [facility] [id number] [place] [address]- 8510 Aug, [facility] [address] [facility] [id number], [place] 568102409 Aug, [facility] [place] [facility] [address] [facility] [id number] [place] [address]- 1772 Aug, [facility] [place] [facility] [address] [facility] [id number] [place] [address]- 9575 Aug, [facility] [address] [facility] [id number], [place] 060068649 Aug, [facility] [address] [facility] [id number] [place] [address]- 3769 Aug, [facility] [place] [facility] [address] [facility] [id number] [place] [address]- 9386 Aug, [facility] [address] [facility] [id number], [place] 866605438 Aug, [facility] [place] [facility] [address] [facility] [id number] [place] [address]- 3437 Aug, [facility] [address] [facility] [id number], [place] 803490618 Jul, [facility] [address] [facility] [id number] [place] [address]- 3885 Jul, [facility] [address] [facility] [id number], [place] [id number] Jul, [facility] [address]00565100[place] [address]- 5685 Jul, [facility] [address] [facility] [id number], [place] 300700600 Jul, [facility] [address]00565100[place] [address]- 5736 Jul, [facility] [address] [facility] [id number], [place] 110421210 Jul, [facility] [place] [facility] [address] [id number] [address]- 4506 Jul, [facility] [address] [facility] [id number], [place] 242349198 Jun, [facility] [place] [facility] [address] [facility] [id number] [place] [address]- 9932 Jun, [facility] [address] [facility] [id number], [place] [id number] Jun, [facility] [place] [facility] [address] [id number] [address]- 9851 Jun, [facility] [place] [facility] [address] [facility] [id number] [place] [address]- 2546 07 Jun, 2013 [facility] [address] [facility] [id number] [place] [address]- 2546 Jun, [facility] [address] [id number] [place] [id number] Apr, [facility] [place] [address] [id number] [place] 955246950 Mar, [facility] [place] [address] [id number] [place] 857271245 Mar, [facility] [place] [address] [id number] [place] 590340720 Feb, [facility] [place] [address] [id number] [place] 977344689 Feb, [facility] [place] [address] [id number] [place] 167781444 Feb, [facility] [place] [address] [id number] [place] 086124963 December, [facility] [place] [address] [id number] [place] 507060902 December, [facility] [address]00565100[place] [address] 2546 December, [facility] [address] [id number] [place] 203276145 December, [facility] [address] [id number] [place] [id number] December, [facility] [place] [address] [id number] [place] [id number] Nov, [facility] [place] [address] [id number] [place] [id number] Nov, [facility] [place] [address] [id number] [place] [id number] Nov, [facility] [place] [address] [id number] [place] [id number] Oct, [facility] [place] [address] [id number] [place] [id number] Sep, [facility] [place] [address] [id number] [place] [id number] Aug, [facility] [address] [facility] [id number] [place] [address] Aug, [facility] [place] [address] [id number] [place] [id number] Aug, [facility] [place] [address] [id number] [place] [id number] Jul, [facility] [address] [facility] [id number] [place] [address] Jul, [facility] [place] [address] [id number] [place] [id number] Jul, [facility] [address] [facility] [id number] [place] [address] Jul, [facility] [place] [address] [id number] [place] [id number] Jun, [facility] [address] [address] Jun, [facility] [place] [address] [id number][place] [id number] May, [facility] [address] [address] May, [facility] [place] [address] [id number][place] [id number] May, [facility] [address] [facility] [id number] [place] [address] May, [facility] [place] [address] [id number] [place] [id number] Apr, [facility] [place] [address] [id number] [place] [id number] Apr, [facility] [place] [address] [id number] [place] [id number] Mar, [facility] [place] [address] [id number] [place] [id number] Mar, [facility] [place] [address] [id number] [place] [id number] Feb, [facility] [place] [address] [id number] [place] [id number] Feb, [facility] [place] [address] [id number] [place] [id number] Jan, [facility] [place] [address] [id number] [place] [id number] Jan, [facility] [address] [id number] [place] [id number] Jan, [facility] [place] [address] [id number] [place] [id number] Jan, [facility] [place] [address] [id number] [place] [id number] December, [facility] [place] [address] [id number] [place] [id number] December, [facility] [address] [facility] [id number] [place] [address] Nov, [facility] [place] [address] [id number] [place] [id number] Nov, [facility] [place] [address] [id number] [place] [id number] Nov, [facility] [place] [address] [id number] [place] [id number] Nov, [facility] [place] [address] [id number] [place] [id number] Nov, [facility] [address] [facility] [id number] [place] [address] Oct, [facility] [address] [facility] [id number] [place] [address] Oct, [facility] [place] [address] [id number] [place] [id number] Oct, [facility] [place] [address] [id number] [place] [id number] Oct, [facility] [place] [address] [id number] [place] [id number] Oct, [facility] [place] [address] [id number] [place] [id number] Oct, [facility] [place] [address] [id number] [place] [id number] Oct, [facility] [place] [address] [id number] [place] [id number] Oct, [facility] [place] [address] [id number] [place] [id number] Oct, [facility] [address] [facility] [id number] [place] [address] Oct, [facility] [place] [address] [id number] [place] [id number] Sep, [facility] [place] [address] [id number] [place] [id number] Sep, [facility] [place] [address] [id number] [place] [id number] Aug, [facility] [place] [address] [id number] [place] [id number] Aug, [facility] [address] [facility] [id number] [place] [address] Jul, [facility] [address] [address] Jul, [facility] [address] [address] Jul, [facility] [address]65[address] [address] Jul, [facility] [address] [facility] [id number] [place] [address] Jul, [facility] [address] [facility] [id number] [place] [address] Jul, [facility] [address] [facility] [id number] [place] [address] Jul, [facility] [address]65[address] [address] Jul, [facility] [address] [id number] [address] Jul, [facility] [address] [id number] [address] Jul, [facility] [address] [id number] [address] Jul, [facility] [address] [address] Jul, [facility] [id number] [address] Jul, [facility] [address] [address] Jul, IMMUNIZATIONS No Known Immunizations SOCIAL HISTORY Never Assessed REASON FOR VISIT FY only PLAN OF CARE VITAL SIGNS MEDICATIONS Medication Instructions Dosage Frequency Start Date End Date Duration Status Lasix 20 MG TAKE (1/2) TABLET BY MOUTH ONCE DAILY... 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 Asymptomatic no need for heart cath, monitor and will futher investigate if furhter episodes of syncope in the future. Medical History 05/26/17 noted, jail has ended and they feel he is independent in the home. Medical History 07/12/17 Cardiology 3 m FU, stop coreg, fu in 6 months Medical History 09/27/17 Dr Capone neurology consult: MRI wo contrast and return in 2 months. Suspect small vessel ischemic disease. 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2014 Surgical History amputation, toe-right third toe (Nisreen) 2013 Surgical History Right eye retinal eye repair ([facility]) 09/2014 Surgical History heart cath with stent [...]
--- OUTSIDE RECORDS SUMMARY | 2018-06-20 10:00 | XMS REPORT ---
Author Author SATINDER GOOD [facility] Address [address] [place] [address] Care Team Providers Care Claims Processor Name Role Phone SATINDER GOOD Unavailable PROBLEMS Type Condition ICD9-CM Code KLU34-QF Code Onset Dates Condition Status SNOMED Code Problem S/P coronary artery stent placement Z95.5 Active 392009365 Problem Type 2 diabetes mellitus with diabetic peripheral angiopathy without gangrene E11.51 Active 161923262 Problem Depression F32.9 Active 85074134 Problem Type 2 diabetes mellitus with diabetic neuropathy E11.40 Active 21556363 Problem Hyperlipidemia, unspecified hyperlipidemia E78.5 Active 29782981 Problem Coronary artery disease involving paimiut coronary artery of paimiut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 Active 9024310387047 Problem Peripheral vascular disease I73.9 Active 015179031 Problem Chronic obstructive pulmonary disease, unspecified COPD type J44.9 Active 04848007 Problem Osteomyelitis of right foot, unspecified chronicity M86.9 Active 29921435 Problem CKD (chronic kidney disease) stage 3, GFR 30-59 ml/min N18.3 Active 017012926 Problem Type 2 diabetes mellitus with diabetic retinopathy, macular edema presence unspecified, with unspecified retinopathy severity E11.319 Active 86438982 Problem GERD without esophagitis K21.9 Active 984739261 Problem Bilateral low back pain without sciatica M54.5 Active 589786907 Problem Mixed hyperlipidemia E78.2 Active 077850167 Problem Frequent falls R29.6 Active 910474371 Problem Chronic kidney disease, unspecified N18.9 Active 962787943 Problem Other chronic pain G89.29 Active 83465482 Problem Chronic diarrhea K52.9 Active 167872850 Problem Hypercholesterolemia E78.0 Active 64695689 Problem 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 Active 000378587 Problem 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 Active 904446832 Problem Obesity (BMI 30.0-34.9) E66.9 Active 996721268469439 Problem Comprehensive diabetic foot examination, type 2 DM, encounter for E11.9 Active 79874073 Problem Uses walker Z99.89 Active 655951072 Problem Aphasia R47.01 Active 23162127 Problem Insulin long-term use Z79.4 Active 759625937 Problem Fatigue, unspecified type R53.83 Active 78745851 Problem Type 2 diabetes mellitus with foot ulcer E11.621 Active 959619881 Problem Pain in left shoulder M25.512 Active 86972104 Problem Type 2 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 Active 215065180 Problem Diabetes type 2, uncontrolled E11.65 Active 298335236 Problem Personal history of carotid stenosis Z86.79 Active 810486975 Problem Essential hypertension I10 Active 40573580 Problem CKD (chronic kidney disease), stage 3 (moderate) N18.3 Active 521865132 Problem Chronic pain syndrome G89.4 Active 902360833 Problem High risk medication use Z79.899 Active 493794914 ALLERGIES No Information ENCOUNTERS Encounter Location Date Diagnosis [address] [id number] Oct, [address] [id number] Oct, [address] [id number] Oct, Other chronic pain G89.[address] [id number] Sep, Other chronic pain G89.[address] [id number] Aug, CKD (chronic kidney disease), stage 3 (moderate) N18.3 ; Anemia, unspecified type D64.9 and Dilated pore of Ly L70.[address] [id number] Aug, Other chronic pain G89.29 ; Pain in left shoulder M25.512 ; High risk medication use Z79.899 ; Uses walker Z99.89 ; Diabetes type 2, uncontrolled E11.65 and Depression F32.9 [place] [id number] [place] [address] [id number] Aug, Chronic diarrhea K52.9 [address] [place] [address] [id number] Aug, Chronic diarrhea K52.9 ; Type 2 diabetes mellitus with diabetic neuropathy E11.40 ; Diabetes type 2, uncontrolled E11.65 ; Insulin long-term use Z79.4 ; Chronic obstructive pulmonary disease, unspecified COPD type J44.9 ; Chronic pain syndrome G89.4 ; Pain in left shoulder M25.512 ; Uses walker Z99.89 ; S/P coronary artery stent placement Z95.5 ; Mixed hyperlipidemia E78.2 and Essential hypertension I10 [place] [id number] [place] [address] [id number] Aug, [place] [address] [place] [address] [id number] Jul, Diabetes type 2, uncontrolled E11.65 [place] [address] [place] [address] [id number] Jul, Diabetes type 2, uncontrolled E11.65 ; Type 2 diabetes mellitus with diabetic neuropathy E11.40 ; Insulin long-term use Z79.4 and Chronic obstructive pulmonary disease, unspecified COPD type J44.9 [place] [id number] [place] [address] [id number] Jun, [place] [address] [place] [address] [id number] Jun, Essential hypertension I10 [place] [id number] [place] [address] [id number] Jun, Essential hypertension I10 [place] [id number] [place] [address] [id number] Jun, Type 2 diabetes mellitus with diabetic neuropathy E11.40 ; Type 2 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 ; S/P coronary artery stent placement Z95.5 ; Obesity (BMI 30.0-34.9) E66.9 ; Mixed hyperlipidemia E78.2 ; Frequent falls R29.6 ; Chronic obstructive pulmonary disease, unspecified COPD type J44.9 ; Essential hypertension I10 ; Insulin long-term use Z79.4 and High risk medication use Z79.[id number] [place] [address] [id number] May, Diarrhea, unspecified type R19.7 ; Type 2 diabetes mellitus with diabetic neuropathy E11.40 ; Chronic obstructive pulmonary disease, unspecified COPD type J44.9 ; S/P coronary artery stent placement Z95.5 ; High risk medication use Z79.899 ; Essential hypertension I10 ; Encounter for administration of vaccine Z23 and Encounter for immunization Z23 [address] [id number] [id number] May, Chronic obstructive pulmonary disease, unspecified COPD type J44.9 [address] [place] [address] [id number] May, Type 2 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 ; Encounter for immunization Z23 ; Needs flu shot Z23 ; Comprehensive diabetic foot examination, type 2 DM, encounter for E11.9 and Obesity (BMI 30.0-34.9) E66.9 [address] [place] [address] [id number] May, [place] [id number] [place] [address] [id number] Apr, [place] [id number] [place] [address] [id number] Apr, Essential hypertension I10 and Aphasia R47.[address] [place] [address] [id number] Apr, [place] [id number] [place] [address] [id number] Apr, Type 2 diabetes mellitus with diabetic neuropathy E11.40 ; Frequent falls R29.6 ; Essential hypertension I10 ; S/P coronary artery stent placement Z95.5 ; High risk medication use Z79.899 ; Hyperlipidemia, unspecified hyperlipidemia E78.5 ; CKD (chronic kidney disease), stage 3 (moderate) N18.3 ; Pain in left shoulder M25.512 and Chronic obstructive pulmonary disease, unspecified COPD type J44.9 [address] [place] [address] [id number] Mar, [id number] [place] [address] [id number] Mar, Type 2 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 ; Leg wound, left, initial encounter S81.802A ; Hx of shoulder surgery Z98.890 ; Acute pain of left shoulder M25.512 and Fall, initial encounter W19.XXXA [facility] [id number] [place] [address], [place] [id number] Feb, Follow-up exam Z09 ; Hx of shoulder surgery Z98.890 ; Acute pain of left shoulder M25.512 ; Essential hypertension I10 and Leg wound, left, initial encounter S81.802A [facility] [address] [id number] [place] [id number] Feb, [facility] [id number] [place] [address], [place] [id number] Feb, [facility] [id number] [place] [address] [id number] Feb, Chronic obstructive pulmonary disease, unspecified COPD type J44.9 [facility] [id number] [place] [address] [id number] Feb, [facility] [id number] [place] [address], [place] [id number] Jan, Generalized weakness R53.1 ; Exertional shortness of breath R06.02 and Fungal rash of trunk B36.9 [facility] [id number] [place] [address] [id number] Jan, [facility] [address] [id number] [place] [address] [id number] Jan, [facility] [address] [id number] [place] [address] [id number] Jan, [facility] [id number] [place] [address] [id number] Jan, [facility] [id number] [place] [address] [id number] December, High risk medication use Z79.899 [facility] [id number] [place] [address] [id number] December, Type 2 diabetes mellitus with diabetic neuropathy E11.[address] [place] [address] [facility] [id number] [id number] December, High risk medication use Z79.899 [address] [id number] Nov, Diabetes type 2, uncontrolled E11.65 [address] [id number] Nov, Medicare annual wellness visit, initial Z00.00 ; Bilateral low back pain without sciatica M54.5 ; Pain in left shoulder M25.512 ; Chronic pain syndrome G89.4 ; Type 2 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 ; High risk medication use Z79.899 and Encounter for immunization Z23 [address]100[place] [id number] Nov, Type 2 diabetes mellitus with diabetic neuropathy E11.40 ; Coronary artery disease involving paimiut coronary artery of paimiut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 and CKD (chronic kidney disease), stage 3 (moderate) N18.3 [address] [place] [address] [id number] Oct, Type 2 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 ; Chronic pain syndrome G89.4 ; Chronic obstructive pulmonary disease, unspecified COPD type J44.9 ; Chronic kidney disease, unspecified N18.9 and Rash R21 [address] [id number] [id number] Oct, Type 2 diabetes mellitus with diabetic neuropathy E11.[address] [id number], [place] [id number] Oct, Rash R21 and Impetigo L01.[address] [id number] [place] [address] [id number] Oct, Chronic pain syndrome G89.[address] [id number] [id number] Oct, [address] [id number] Sep, Sebaceous cyst L72.3 [place] [id number] [place] [address] [id number] Sep, Sebaceous cyst L72.3 [place] [id number] [place] [address] [id number] Sep, Chronic pain syndrome G89.4 ; Pain in left shoulder M25.512 and Effusion of olecranon bursa, left M25.422 [facility] [address] [id number] [address] Aug, [facility] [id number] [place] [address] [id number] Aug, [place] [id number] [place] [address] [id number] Aug, Mixed hyperlipidemia E78.2 and Chronic kidney disease, unspecified N18.9 [place] [id number] [place] [address] [id number] Jul, Type 2 diabetes mellitus with diabetic neuropathy E11.40 ; Essential hypertension I10 and S/P coronary artery stent placement Z95.5 [place] [id number] [place] [address] [id number] Jul, 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 [place] [address] [place] [address] [id number] Jul, Diabetes type 2, uncontrolled E11.65 ; Essential hypertension I10 and 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 [address] [place] [address] [id number] Jul, [place] [address] [place] [address] [id number] Jul, [address] [place] [address] [id number] Jul, [place] [address] [place] [address] [id number] Jul, Chronic obstructive pulmonary disease, unspecified COPD type J44.9 [address] [place] [address] [id number] Jun, CKD (chronic kidney disease), stage 3 (moderate) N18.3 and Anemia, unspecified type D64.9 [address] [place] [address] [id number] Jun, Type 2 diabetes mellitus with diabetic neuropathy E11.40 ; Decreased GFR R94.4 ; CKD (chronic kidney disease), stage 3 (moderate) N18.3 and Decreased hemoglobin R71.0 [place] [address] [place] [address] [id number] Jun, CKD (chronic kidney disease), stage 3 (moderate) N18.3 and Anemia, unspecified type D64.9 [address] [place] [address] [id number] Jun, Type 2 diabetes mellitus with diabetic neuropathy E11.40 ; Decreased GFR R94.4 and CKD (chronic kidney disease), stage 3 (moderate) N18.3 [address] [place] [address] [id number] Jun, Type 2 diabetes mellitus with diabetic neuropathy E11.40 and Essential hypertension I10 [place] [id number] [place] [address] [id number] Jun, [place] [address] [place] [address] [id number] Jun, [place] [address] [place] [address] [id number] Jun, Type 2 diabetes mellitus with diabetic neuropathy E11.40 ; S/P coronary artery stent placement Z95.5 ; Chronic obstructive pulmonary disease, unspecified COPD type J44.9 ; Essential hypertension I10 ; GERD without esophagitis K21.9 ; Peripheral vascular disease I73.9 ; Mixed hyperlipidemia E78.2 and Hospital discharge follow-up Z09 [address] [place] [address] [id number] Jun, [place] [address] [place] [address] [id number] May, Depression F32.9 and Hyperlipidemia, unspecified hyperlipidemia E78.5 [facility] [id number] [place] [address]- [phone] May, [place] [address] [place] [address] [id number] May, [place] [id number] [id number] May, Essential hypertension I10 ; Chronic pain syndrome G89.4 ; Pain in left shoulder M25.512 ; High risk medication use Z79.899 ; Chronic obstructive pulmonary disease, unspecified COPD type J44.9 ; S/P coronary artery stent placement Z95.5 ; Personal history of carotid stenosis Z86.79 ; Hyperlipidemia, unspecified hyperlipidemia E78.5 ; Decreased GFR R94.4 and Type 2 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 [address] [place] [address] [id number] May, Hemoglobin decreased R71.0 and Decreased GFR R94.4 [place] [id number] [place] [address] [id number] May, Hemoglobin decreased R71.0 and Decreased GFR R94.4 [address] [place] [address] [id number] May, [place] [id number] [place] [address] [id number] May, [address] [place] [address] [id number] Apr, [place] [id number] [place] [address] [id number] Apr, Type 2 diabetes mellitus with foot [...] unspecified hyperlipidemia E78.5 and Essential hypertension I10 [address] [place] [address] [id number] Apr, [address] [place] [address] [id number] Mar, [place] [id number] [id number] Mar, [facility] [address] [place] [address]- [phone] Mar, [facility] [id number] [place] [address] [id number] Feb, [facility] [id number] [place] [address] [id number] Feb, [facility] [id number] [place] [address] [id number] Feb, [facility] [id number] [place] [address] [id number] Jan, Type 2 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 ; Hypercholesterolemia E78.0 ; Chronic pain syndrome G89.4 ; Pain in left shoulder M25.512 and High risk medication use Z79.899 [facility] [id number] [place] [address] [id number] Jan, [facility] [id number] [place] [address] [id number] Jan, [facility] [id number] [place] [address] [id number] December, [facility] [id number] [place] [address] [id number] December, [facility] [address]00565100[place], [place] [address] December, Diabetes type 2, uncontrolled E11.65 ; Type 2 diabetes mellitus with diabetic neuropathy E11.40 ; Peripheral vascular disease I73.9 ; 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 [id number], [place] [address] 2546 Nov, [facility] [address] [facility] [id number], [place] [address]- [address] Nov, [facility] [id number], [place] [id number] Nov, Diabetes with neurological manifestations, type II or unspecified type, 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.60 [facility] [id number] [place] [address] [id number] Nov, [facility] [id number] [place] [address] [id number] Nov, [facility] [id number] [place] [address] [id number] Oct, Diabetes type 2, uncontrolled E11.65 ; Type 2 diabetes mellitus with diabetic neuropathy, unspecified E11.40 and Low back pain M54.5 [facility] [address] [id number] [id number] Oct, [facility] [id number] [place] [address] [id number] Oct, [facility] [id number] [place] [address] [id number] Oct, [facility] [id number], [place] [id number] Sep, [facility] [id number], [place] [id number] Sep, [facility] [address]00565100[place], [place] [address]- [address] Sep, [facility] [id number], [place] [id number] Sep, [facility] [address] [id number], [place] [id number] Sep, [facility] [id number], [place] [id number] Aug, 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 [facility] [address] [id number], [place] [id number] Aug, [facility] [address] [id number], [place] [id number] Aug, Allergic rhinitis due to pollen J30.1 [facility] [id number], [place] [id number] Jul, [facility] [address] [id number], [place] [id number] Jul, [facility] [id number] [place] [address] [id number] Jul, [facility] [id number], [place] [id number] Jun, [facility] [id number], [place] [id number] Jun, Thumb tendonitis M77.8 and Ringing in ear, bilateral H93.13 [facility] [id number], [place] [id number] Jun, [facility] [address] [facility] [id number], [place] [id number] May, [place] [id number] [place] [address] 59580- 5241 May, [facility] [id number] [place] [address] 03910- 4811 May, Pre-op evaluation Z01.818 ; Encounter for immunization Z23 ; Type 2 diabetes mellitus with diabetic peripheral angiopathy without gangrene E11.51 ; Insulin long-term use Z79.4 ; Type 2 diabetes mellitus with foot ulcer E11.621 ; Peripheral vascular disease I73.9 ; Coronary artery disease involving paimiut coronary artery of paimiut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 ; S/P coronary artery stent placement Z95.5 ; Osteomyelitis of right foot, unspecified chronicity M86.9 and Chronic obstructive pulmonary disease, unspecified COPD type J44.9 [facility] [id number] [place] [address] [id number]- 2521 May, [facility] [id number] [place] [address] [id number] May, [facility] [id number] [place] [address] [id number] May, Diabetes type 2, uncontrolled E11.65 ; Encounter for immunization Z23 ; Osteopenia M85.80 and Allergic rhinitis due to pollen J30.1 [facility] [id number] [place] [address] [id number] May, Lumbago 724.2 [place] [id number] [place] [address] [id number] Apr, [facility] [id number] [place] [address] [id number] Apr, [facility] [id number] [place] [address] [id number] Apr, [facility] [id number] [place] [address] [id number] Apr, [facility] [id number] [place] [address] 55194 2546 Mar, [facility] [id number] [place] [address] [id number] Mar, [facility] [id number] [place] [address] [id number] Mar, [facility] [id number] [place] [address] [id number] Mar, [facility] [id number] [place] [address] [id number] Mar, [facility] [id number] [place] [address] 84903- [phone] Mar, [facility] [id number] [place] [address] [id number] Mar, [facility] [id number] [place] [address] [id number] Mar, Diabetes with neurological manifestations, type II or unspecified type, 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.60 and Severe obesity (BMI 35.0-35.9 with comorbidity) 278.01 [facility] [id number], [place] [id number] Mar, [facility] [address]00565100[place], [place] [address]- 2546 Mar, [facility] [address]00565100[place], [place] [address]- 2546 Feb, [facility] [address] [id number], [place] [id number] Feb, [facility] [address] [id number], [place] [id number] Feb, [facility] [id number], [place] [id number] Feb, Diabetes with neurological manifestations, type II or unspecified type, 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.60 [facility] [id number], [place] [id number] Feb, [facility] [address]00565100[place], [place] [address]- 2546 Feb, [facility] [facility] [address] [id number] [id number] Feb, [facility] [id number], [place] [id number] Feb, Follow up V67.9 ; Diabetes with neurological manifestations, type II or unspecified type, 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.60 and Congestive heart failure 428.0 [facility] [id number][place] [id number] Jan, [facility] [id number], [place] [id number] Jan, [facility] [address] [id number] [id number] Jan, [facility] [id number], [place] 35578[address]73 December, Otitis media with effusion 381.4 ; Left arm numbness 782.0 and Osteoporosis 733.00 [facility] [address] [id number], [place] 080594773 December, [facility] [address] [id number], [place] 64[address]350[address] Nov, [facility] [address] [id number][place] [address] Nov, Serous otitis media 381.4 and Lumbago 724.2 [facility] [place] [facility] [address]00565100[place], [place] [address] 14 Nov, 2014 [facility] [place] [facility] [address]00565100[place], [place] [address] Nov, [facility] [id number], [place] [address]672655 Oct, [facility] [place] [facility] [address]00565100[place], [place] [address] 116[address] Oct, [facility] [id number], [place] 802401164 Oct, [facility] [place] [facility] [address]00565100[place], [place] [address]- [address] Oct, [facility] [id number], [place] 452817072 Oct, [facility] [place] [facility] [address]00565[address], [place] [address]- 9[address] Oct, [facility] [place] [facility] [address]00565100[place], [place] [address]- [address] Sep, [facility] [place] [facility] [address] [id number], [place] [address] Sep, [facility] [address] [id number], [place] [id number] Sep, [facility] [place] [facility] [address] [id number], [place] [address] 2546 Sep, [facility] [address] [id number], [place] 614873437 Aug, [facility] [place] [facility] [address] [id number], [place] [address]- 2546 Aug, [facility] [address] [id number], [place] 867298036 Aug, [facility] [address] [id number] [place] [address]- 1644 Aug, [facility] [address] [id number] [place] [id number] Jul, [facility] [address] [facility] [id number] [place] [address]- 1034 Jul, [facility] [address] [id number] [place] [id number] Jul, [facility] [place] [facility] [address] [id number] [place] [address]- 9361 Jul, [facility] [address] [id number] [place] [id number] Jul, [facility] [place] [facility] [address] [facility] [id number], [place] [address]- 3436 Jul, [facility] [address] [id number], [place] 382386498 Jun, [facility] [address] [facility] [id number], [place] [address]- 7779 Jun, [facility] [address] [id number], [place] [id number] May, [facility] [place] [facility] [address] [facility] [id number], [place] [address]- 8455 May, [facility] [address] [id number], [place] 365065298 May, [facility] [place] [facility] [address] [facility] [id number], [place] [address]- 2588 May, [facility] [address] [id number] [place] [id number] May, [facility] [place] [facility] [address] [facility] [id number], [place] [address]- 1139 May, [facility] [address] [id number], [place] 650236516 May, [facility] [address] [id number], [place] 895022597 May, [facility] [place] [facility] [address] [facility] [id number] [place] [address]- 2314 May, [facility] [place] [facility] [address] [facility] [id number], [place] [address]- 3040 May, [facility] [address] [id number] [place] 065368095 May, [facility] [place] [facility] [address] [facility] [id number], [place] [address]- 8569 May, [facility] [place] [facility] [address] [facility] [id number], [place] [address]- 6128 Apr, [facility] [address] [id number], [place] 126591964 Apr, [facility] [place] [facility] [address] [facility] [id number], [place] [address]- 3379 Apr, [facility] [address] [id number], [place] [id number] Apr, [facility] [address] [id number], [place] 575371822 Apr, [facility] [place] [facility] [address] [facility] [id number], [place] [address]- 8493 Apr, [facility] [place] [facility] [address] [facility] [id number], [place] [address]- 3898 Apr, [facility] [address] [id number], [place] 064883257 Apr, [facility] [place] [facility] [address] [facility] [id number], [place] [address]- 0368 Apr, [facility] [address] [id number], [place] [id number] Apr, [facility] [place] [facility] [address] [facility] [id number], [place] [address]- 0790 Apr, [facility] [address] [id number], [place] [id number] Apr, [facility] [place] [facility] [address] [facility] [id number] [place] [address]- 5207 Apr, [facility] [address] [id number] [place] [id number] Apr, [facility] [place] [facility] [address] [facility] [id number] [place] [address]- 2301 Apr, [facility] [address] [facility] [id number] [place] 594998200 Apr, [facility] [place] [facility] [address] [facility] [id number] [place] [address]- 6929 Apr, [facility] [address] [id number] [place] [id number] Apr, [facility] [place] [facility] [address] [facility] [id number] [place] [address]- 4784 Apr, [facility] [address] [facility] [id number] [place] [id number] Mar, [facility] [place] [facility] [address] [facility] [id number], [place] [address]- 9302 Mar, [facility] [address] [id number] [place] 030893813 Mar, [facility] [address] [id number] [place] 404509289 Mar, [facility] [place] [facility] [address] [facility] [id number], [place] [address]- 9212 Mar, [facility] [place] [facility] [address] [facility] [id number], [place] [address]- 4395 Mar, [facility] [address] [id number] [place] [id number] Mar, [facility] [place] [facility] [address] [facility] [id number], [place] [address]- 1357 Mar, [facility] [address] [id number] [place] 988201351 Mar, [facility] [place] [facility] [address] [facility] [id number] [place] [address]- 4118 Mar, [facility] [address] [id number] [place] 870946055 Mar, [facility] [place] [facility] [address] [id number] [place] [address]- 2509 Mar, [facility] [address] [id number] [place] 914943624 Mar, [facility] [place] [facility] [address] [id number] [place] [address]- 0962 Mar, [facility] [address] [id number] [place] [id number] Mar, [facility] [place] [facility] [address] [id number] [place] [address]- 1227 Mar, [facility] [address] [id number] [place] [id number] Mar, [facility] [place] [facility] [address] [facility] [id number] [place] [address]- 7515 Mar, [facility] [address] [id number], [place] 444070180 Mar, [facility] [place] [facility] [address] [facility] [id number] [place] [address]- 3666 Mar, [facility] [address] [id number] [place] [id number] Feb, [facility] [place] [facility] [address] [facility] [id number] [place] [address]- 4375 Feb, [facility] [address] [id number] [place] [id number] Feb, [facility] [place] [facility] [address] [id number] [place] [address]- 0151 Feb, [facility] [address] [id number] [place] [id number] Feb, [facility] [place] [facility] [address] [id number] [place] [address]- 9927 Feb, [facility] [address] [id number] [place] [id number] Feb, [facility] [place] [facility] [address] [id number] [place] [address]- 5645 Feb, [facility] [address] [id number] [place] [id number] Feb, [facility] [place] [facility] [address] [facility] [id number] [place] [address]- 7208 Feb, [facility] [address] [id number] [place] [id number] Feb, [facility] [place] [facility] [address] [id number] [place] [address]- 5692 Feb, [facility] [address] [id number] [place] [id number] Feb, [facility] [place] [facility] [address] [facility] [id number] [place] [address]- 2895 Feb, [facility] [address] [id number] [place] [id number] Feb, [facility] [place] [facility] [address] [facility] [id number], [place] [address]- 7187 Feb, [facility] [address] [id number] [place] [id number] Feb, [facility] [place] [facility] [address] [facility] [id number] [place] [address]- 1096 Feb, [facility] [address] [id number] [place] [id number] Feb, [facility] [address] [id number] [place] [id number] Feb, [facility] [place] [facility] [address] [facility] [id number], [place] [address]- 5447 Feb, [facility] [place] [facility] [address] [facility] [id number] [place] [address]- 7380 Feb, [facility] [address] [id number] [place] [id number] Feb, [facility] [place] [facility] [address] [facility] [id number] [place] [address]- 6336 Feb, [facility] [address] [id number] [place] [id number] Feb, [facility] [place] [facility] [address] [id number] [place]- 3782 Feb, [facility] [address] [id number] [place] [id number] Feb, [facility] [place] [facility] [address] [facility] [id number] [place] [address]- 6317 Feb, [facility] [address] [id number] [place] 994394942 Jan, [facility] [place] [facility] [address] [id number] [place] [address]- 5294 Jan, [facility] [place] [facility] [address] [facility] [id number], [place] [address]- 5767 Jan, [facility] [place] [facility] [address] [facility] [id number], [place] [address]- 1587 Jan, [facility] [place] [facility] [address] [facility] [id number], [place] [address]- 0363 Jan, [facility] [place] [facility] [address] [facility] [id number], [place] [address]- 3368 Jan, [facility] [address] [facility] [id number], [place] 036788099 Jan, [facility] [place] [facility] [address] [facility] [id number], [place] [address]- 3215 Jan, [facility] [place] [facility] [address] [facility] [id number], [place] [address]- 3231 Jan, [facility] [place] [facility] [address] [facility] [id number], [place] [address]- 4079 Jan, [facility] [address] [id number] [place] 685862984 Jan, [facility] [address] [id number] [place] [id number] Jan, [facility] [place] [facility] [address] [facility] [id number], [place] 14187498- 1290 Jan, [facility] [place] [facility] [address] [id number] [place] [address]- 9656 Jan, [facility] [address] [id number] [place] [id number] Jan, [facility] [address] [id number] [place] 901833884 Jan, [facility] [place] [facility] [address] [id number] [place] [address]- 6086 Jan, [facility] [place] [facility] [address] [id number] [place] [address] 2546 Jan, [facility] [place] [facility] [address] [id number] [place] [address]- 1266 Jan, [facility] [address] [id number] [place] [id number] December, [facility] [place] [facility] [address] [facility] [id number] [place] [address]- 0916 December, [facility] [place] [facility] [address] [facility] [id number], [place] [address]- 2366 December, [facility] [address] [id number] [place] [id number] December, [facility] [place] [facility] [address] [facility] [id number], [place] [address]- 9816 December, [facility] [address] [id number] [place] 752188322 December, [facility] [place] [facility] [address] [id number] [place] [address]- 2546 December, [facility] [address] [id number] [place] 884958513 December, [facility] [place] [facility] [address] [facility] [id number] [place] [address]- 2546 December, [facility] [address] [id number] [place] [id number] Nov, [facility] [place] [facility] [address] [id number], [place] [address]- 2086 Nov, [facility] [address] [facility] [id number], [place] [id number] Nov, [facility] [place] [facility] [address] [facility] [id number], [place] [address]- 5142 Nov, [facility] [place] [facility] [address] [facility] [id number], [place] [address]- 3187 Nov, [facility] [place] [facility] [address] [facility] [id number], [place] [address]- 7021 Nov, [facility] [place] [facility] [address] [facility] [id number], [place] 796318- 1505 Oct, [facility] [address] [facility] [id number], [place] [id number] Oct, [facility] [place] [facility] [address]00565[address], [place] [address]- 7790 Oct, [facility] [address] [facility] [id number], [place] 050805959 Oct, [facility] [place] [facility] [address] [facility] [id number], [place] [address]- 5511 Oct, [facility] [address] [facility] [id number], [place] 990624654 Sep, [facility] [place] [facility] [address] [facility] [id number], [place] [address]- 2425 Sep, [facility] [address] [facility] [id number], [place] [id number] Aug, [facility] [place] [facility] [address] [facility] [id number], [place] [address]- 1958 Aug, [facility] [address] [facility] [id number], [place] [id number] Aug, [facility] [place] [facility] [address] [facility] [id number], [place] [address]- 3476 Aug, [facility] [place] [facility] [address] [facility] [id number], [place] [address]- 4362 Aug, [facility] [address] [id number], [place] 916650443 Aug, [facility] [place] [facility] [address] [facility] [id number], [place] [address]- 6176 Aug, [facility] [place] [facility] [address] [facility] [id number], [place] [address]- 7806 Aug, [facility] [address] [facility] [id number], [place] [id number] Aug, [facility] [place] [facility] [address] [facility] [id number], [place] [address]- 9946 Aug, [facility] [address] [facility] [id number], [place] [id number] Jul, [facility] [place] [facility] [address]00565100[place], [place] [address]- 8058 Jul, [facility] [address] [id number], [place] [id number] Jul, [facility] [place] [facility] [address]00565100[place], [place] [address]- 8024 Jul, [facility] [address] [facility] [id number], [place] [id number] Jul, [facility] [place] [facility] [address]00565100[place], [place] [address]- 0464 Jul, [facility] [address] [facility] [id number], [place] 805006914 Jul, [facility] [place] [facility] [address] [id number], [place] [address]- 5666 Jul, [facility] [address] [facility] [id number], [place] 714091237 Jun, [facility] [place] [facility] [address] [facility] [id number], [place] [address]- 2716 Jun, [facility] [address] [facility] [id number], [place] 966142744 Jun, [facility] [place] [facility] [id number], [place] [address] Jun, [facility] [address] [facility] [id number], [place] [address] Jun, [facility] [address] [facility] [id number], [place] [address] Jun, [facility] [place] [address] [id number] [place] [id number] Apr, [facility] [place] [address] [id number] [place] [id number] Mar, [facility] [place] [address] [id number] [place] [id number] Mar, [facility] [place] [address] [id number] [place] [id number] Feb, [facility] [place] [address] [id number] [place] [id number] Feb, [facility] [place] [address] [id number] [place] [id number] Feb, [facility] [place] [address] [id number] [place] [id number] December, [facility] [place] [address] [id number] [place] [id number] December, [facility] [address], [place] [address] December, [facility] [place] [address] [id number] [place] [id number] December, [facility] [place] [address] [id number] [place] [id number] December, [facility] [place] [address] [id number] [place] [id number] Nov, [facility] [place] [address] [id number] [place] [id number] Nov, [facility] [place] [address] [id number] [place] [address] Nov, [facility] [place] [address] [id number] [place] [id number] Oct, [facility] [place] [address] [id number] [place] [id number] Sep, [facility] [place] [address] [id number] [id number] Aug, [facility] [address] [facility] [id number], [place] [address] Aug, [facility] [place] [address] [id number] [id number] Aug, [facility] [place] [address] [id number] [id number] Jul, [facility] [address] [facility] [id number], [place] [address] Jul, [facility] [place] [address] [id number] [id number] Jul, [facility] [address] [facility] [id number], [place] [address] Jul, [facility] [place] [address] [id number], [place] [id number] Jun, [facility] [address], [place] [address] Jun, [facility] [place] [address] [id number] [id number] May, [facility] [address] [facility] [id number], [place] [address] May, [facility] [place] [address] [id number] [id number] May, [facility] [address] [facility] [id number], [place] [address] May, [facility] [place] [address] [id number] [id number] Apr, [facility] [address] [id number], [place] [id number] Apr, [facility] [address] [id number] [id number] Mar, [facility] [place] [address] [id number] [id number] Mar, [facility] [place] [address] [id number] [place] [id number] Feb, [facility] [place] [address] [id number] [place] [id number] Feb, [facility] [place] [address] [id number] [place] [id number] Jan, [facility] [place] [address] [id number] [place] [id number] Jan, [facility] [place] [address] [id number] [place] [address] Jan, [facility] [place] [address] [id number] [place] [id number] Jan, [facility] [place] [address] [id number] [place] [address] December, [facility] [place] [address] [id number] [place] [address] December, [facility] [address] [id number], [place] [address] Nov, [facility] [place] [address] [id number] [place] [id number] Nov, [facility] [place] [address] [id number] [place] [address] Nov, [facility] [place] [address] [id number] [place] [address] Nov, [facility] [place] [address] [id number] [place] [id number] Nov, [facility] [address] [facility] [id number], [place] [address] Oct, [facility] [address] [facility] [id number], [place] [address] Oct, [facility] [place] [address] [id number] [place] [id number] Oct, [facility] [place] [address] [id number] [place] [id number] Oct, [facility] [place] [address] [id number] [place] [id number] Oct, [facility] [place] [address] [id number] [place] [id number] Oct, [facility] [place] [address] [id number] [place] [id number] Oct, [facility] [place] [address] [id number] [place] [address] Oct, [facility] [place] [address] [id number] [place] [address] Oct, [facility] [address] [facility] [id number], [place] [address] Oct, [facility] [place] [address] [id number] [place] [id number] Sep, [facility] [place] [address] [id number] [place] [id number] Sep, [facility] [address] [id number] [place] [id number] Aug, [facility] [address] [id number] [place] [id number] Aug, [facility] [id number] [address] Jul, [facility] [id number] [place] [id number] Jul, [facility] [id number] [address] Jul, [facility] [id number] [place] [address] [id number]- [id number] Jul, [facility] [id number], [place] [address] Jul, [facility] [id number] [place] [id number]- [address]244 Jul, [facility] [id number] [address] Jul, [facility] [id number] [place] [id number]- [id number] Jul, [facility] [address] [facility] [id number] [address] Jul, [facility] [id number], [place] [address] Jul, [facility] [id number], [place] [address] Jul, [facility] [id number], [place] [address] Jul, [facility] [address] [facility] [id number], [place] [address] Jul, [facility] [address] [id number], [place] [address] Jul, IMMUNIZATIONS No Known Immunizations SOCIAL HISTORY Never Assessed REASON FOR VISIT Medication refill request PLAN OF CARE VITAL SIGNS MEDICATIONS Unknown Medications RESULTS No Results PROCEDURES No Known procedures INSTRUCTIONS MEDICATIONS ADMINISTERED No Known Medications MEDICAL (GENERAL) HISTORY Type Description Date Medical History peripheral vascular disease s/p angioplasty w/ stent R leg Medical History hypertension Medical 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 Neo NASH. Asymptomatic no need for heart cath, monitor and will futher investigate if furhter episodes of syncope in the future. Medical History 05/26/17 noted, long-term has ended and they feel he is [...] Surgical History Left eye retinal eye repair ([facility]) 06/2014 Surgical History amputation, toe-right third toe (Nisreen) 2013 Surgical History Right eye retinal eye repair ([facility]) 09/2014 Surgical History heart cath with stent [...]
--- OUTSIDE RECORDS SUMMARY | 2018-06-20 10:01 | XMS REPORT ---
Author Author SATINDER GOOD [facility] Address [address] [place] [address] Care Team Providers Care Resaw Feeder Name Role Phone SATINDER GOOD Unavailable PROBLEMS Type Condition ICD9-CM Code PCV28-TS Code Onset Dates Condition Status SNOMED Code Problem Chronic obstructive pulmonary disease, unspecified COPD type J44.9 Active 24823239 Problem Peripheral vascular disease I73.9 Active 679661809 Problem Type 2 diabetes mellitus with diabetic neuropathy E11.40 Active 59048079 Problem S/P coronary artery stent placement Z95.5 Active 391257601 Problem Osteomyelitis of right foot, unspecified chronicity M86.9 Active 60694482 Problem Type 2 diabetes mellitus with diabetic retinopathy, macular edema presence unspecified, with unspecified retinopathy severity E11.319 Active 03204144 Problem Bilateral low back pain without sciatica M54.5 Active 020097814 Problem 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 Active 865664600 Problem 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 Active 384949997 Problem Frequent falls R29.6 Active 661638891 Problem Hypercholesterolemia E78.0 Active 79570258 Problem Comprehensive diabetic foot examination, type 2 DM, encounter for E11.9 Active 22343126 Problem Type 2 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 Active 121852058 Problem Obesity (BMI 30.0-34.9) E66.9 Active 227807770895346 Problem Uses walker Z99.89 Active 189424629 Problem Aphasia R47.01 Active 70108755 Problem Functional diarrhea K59.1 Active 88879872 Problem Fecal urgency R15.2 Active 33755264 Problem Fatigue, unspecified type R53.83 Active 36923162 Problem High risk medication use Z79.899 Active 618359315 Problem Diabetes type 2, uncontrolled E11.65 Active 295841122 Problem Personal history of carotid stenosis Z86.79 Active 161884931 Problem Other chronic pain G89.29 Active 48084370 Problem Chronic diarrhea K52.9 Active 925566577 Problem Full incontinence of feces R15.9 Active 889857737122606 Problem Mixed stress and urge urinary incontinence N39.46 Active 440662619 Problem Hyperlipidemia, unspecified hyperlipidemia E78.5 Active 33791160 Problem Essential hypertension I10 Active 20804244 Problem Coronary artery disease involving [place] coronary artery of [place]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 Active 8206409813082 Problem CKD (chronic kidney disease), stage 3 (moderate) N18.3 Active 456389364 Problem Insulin long-term use Z79.4 Active 251103059 Problem Chronic pain syndrome G89.4 Active 823850513 Problem Depression F32.9 Active 01267511 Problem Pain in left shoulder M25.512 Active 50103386 Problem Type 2 diabetes mellitus with foot ulcer E11.621 Active 190860935 Problem Mixed hyperlipidemia E78.2 Active 311921011 Problem Type 2 diabetes mellitus with diabetic peripheral angiopathy without gangrene E11.51 Active 589815223 Problem Chronic kidney disease, unspecified N18.9 Active 647174147 Problem CKD (chronic kidney disease) stage 3, GFR 30-59 ml/min N18.3 Active 103185133 Problem GERD without esophagitis K21.9 Active 345746766 ALLERGIES No Information ENCOUNTERS Encounter Location Date Diagnosis [facility] [address] [facility] [id number] [id number] December, Diabetes type 2, uncontrolled E11.65 ; [...] type J44.9 and Other chronic pain G89.29 [facility] [address] [facility] [id number] [address] December, [facility] [address] [place] [id number] [place] [address] [id number] December, Medicare annual wellness visit, subsequent Z00.00 ; Type 2 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 ; Chronic obstructive pulmonary disease, unspecified COPD type J44.9 ; Depression F32.9 ; Peripheral vascular disease I73.9 ; Coronary artery disease involving [place] coronary artery of [place]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 ; Hypercholesterolemia E78.0 ; GERD without esophagitis K21.9 and Chronic kidney disease, unspecified N18.9 [place] [id number] [place] [address] [id number] December, Mixed stress and urge urinary incontinence N39.46 ; Full incontinence of feces R15.9 ; Fecal urgency R15.2 ; Functional diarrhea K59.1 and Type 2 diabetes mellitus with diabetic neuropathy E11.40 [place] [id number] [place] [address] [id number] Nov, Other chronic pain G89.[address] [id number] Oct, [address] [id number] Oct, [place] [id number] [place] [address] [id number] Oct, Other chronic pain G89.29 [place] [id number] [place] [address] [id number] Sep, Other chronic pain G89.[address] [id number] Aug, CKD (chronic kidney disease), stage 3 (moderate) N18.3 ; Anemia, unspecified type D64.9 and Dilated pore of Ly L70.8 [place] [id number] [place] [address] [id number] Aug, Other chronic pain G89.29 ; Pain in left shoulder M25.512 ; High risk medication use Z79.899 ; Uses walker Z99.89 ; Diabetes type 2, uncontrolled E11.65 and Depression F32.9 [place] [id number] [place] [address] [id number] Aug, Chronic diarrhea K52.9 [facility] [id number] [place] [address] [id number] Aug, Chronic diarrhea K52.9 ; Type 2 diabetes mellitus with diabetic neuropathy E11.40 ; Diabetes type 2, uncontrolled E11.65 ; Insulin long-term use Z79.4 ; Chronic obstructive pulmonary disease, unspecified COPD type J44.9 ; Chronic pain syndrome G89.4 ; Pain in left shoulder M25.512 ; Uses walker Z99.89 ; S/P coronary artery stent placement Z95.5 ; Mixed hyperlipidemia E78.2 and Essential hypertension I10 [facility] [address] [place] [address] [id number] Aug, [address] [id number] Jul, Diabetes type 2, uncontrolled E11.65 [place] [id number] [place] [address] [id number] Jul, Diabetes type 2, uncontrolled E11.65 ; Type 2 diabetes mellitus with diabetic neuropathy E11.40 ; Insulin long-term use Z79.4 and Chronic obstructive pulmonary disease, unspecified COPD type J44.9 [place] [id number] [place] [address] [id number] Jun, [facility] [id number] [place] [address] [id number] Jun, Essential hypertension I10 [place] [id number] [place] [address] [id number] Jun, Essential hypertension I10 [place] [id number] [place] [address] [id number] Jun, Type 2 diabetes mellitus with diabetic neuropathy E11.40 ; Type 2 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 ; S/P coronary artery stent placement Z95.5 ; Obesity (BMI 30.0-34.9) E66.9 ; Mixed hyperlipidemia E78.2 ; Frequent falls R29.6 ; Chronic obstructive pulmonary disease, unspecified COPD type J44.9 ; Essential hypertension I10 ; Insulin long-term use Z79.4 and High risk medication use Z79.899 [facility] [address] [id number] [place] [address] [id number] May, Diarrhea, unspecified type R19.7 ; Type 2 diabetes mellitus with diabetic neuropathy E11.40 ; Chronic obstructive pulmonary disease, unspecified COPD type J44.9 ; S/P coronary artery stent placement Z95.5 ; High risk medication use Z79.899 ; Essential hypertension I10 ; Encounter for administration of vaccine Z23 and Encounter for immunization Z23 [address] [id number] [id number] May, Chronic obstructive pulmonary disease, unspecified COPD type J44.9 [address] [place] [address] [id number] May, Type 2 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 ; Encounter for immunization Z23 ; Needs flu shot Z23 ; Comprehensive diabetic foot examination, type 2 DM, encounter for E11.9 and Obesity (BMI 30.0-34.9) E66.9 [place] [id number] [place] [address] [id number] May, [place] [id number] [place] [address] [id number] Apr, [place] [id number] [place] [address] [id number] Apr, Essential hypertension I10 and Aphasia R47.01 [address] [place] [address] [id number] Apr, [place] [id number] [place] [address] [id number] Apr, Type 2 diabetes mellitus with diabetic neuropathy E11.40 ; Frequent falls R29.6 ; Essential hypertension I10 ; S/P coronary artery stent placement Z95.5 ; High risk medication use Z79.899 ; Hyperlipidemia, unspecified hyperlipidemia E78.5 ; CKD (chronic kidney disease), stage 3 (moderate) N18.3 ; Pain in left shoulder M25.512 and Chronic obstructive pulmonary disease, unspecified COPD type J44.9 [address] [place] [address] [id number] Mar, [place] [id number] [place] [address] [id number] Mar, Type 2 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 ; Leg wound, left, initial encounter S81.802A ; Hx of shoulder surgery Z98.890 ; Acute pain of left shoulder M25.512 and Fall, initial encounter W19.XXXA [facility] [address] [place] [id number] [place] [address] [id number] Feb, Follow-up exam Z09 ; Hx of shoulder surgery Z98.890 ; Acute pain of left shoulder M25.512 ; Essential hypertension I10 and Leg wound, left, initial encounter S81.802A [facility] [id number] [place] [address] [id number] Feb, [facility] [address] [place] [address] [id number] Feb, [facility] [id number] [place] [address] [id number] Feb, Chronic obstructive pulmonary disease, unspecified COPD type J44.9 [facility] [place] [id number] [place] [address] [id number] Feb, [facility] [place] [address] [place] [address] [id number] Jan, Generalized weakness R53.1 ; Exertional shortness of breath R06.02 and Fungal rash of trunk B36.9 [facility] [place] [address] [id number] [place] [address] [id number] Jan, [facility] [address] [id number] [place] [address] [id number] Jan, [facility] [id number] [place] [address] [id number] Jan, [facility] [address] [id number] [place] [address] [id number] Jan, [facility] [address] [place] [address] [id number] December, High risk medication use Z79.899 [facility] [id number] [place] [address] [id number] December, Type 2 diabetes mellitus with diabetic neuropathy E11.40 [facility] [address] [place], [place] [address] [id number] December, High risk medication use Z79.899 [address] [place] [address] [id number] Nov, Diabetes type 2, uncontrolled E11.65 [place] [id number] [place] [address] [id number] Nov, Medicare annual wellness visit, initial Z00.00 ; Bilateral low back pain without sciatica M54.5 ; Pain in left shoulder M25.512 ; Chronic pain syndrome G89.4 ; Type 2 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 ; High risk medication use Z79.899 and Encounter for immunization Z23 [place] [id number] [place] [address] [id number] Nov, Type 2 diabetes mellitus with diabetic neuropathy E11.40 ; Coronary artery disease involving [place] coronary artery of [place]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 and CKD (chronic kidney disease), stage 3 (moderate) N18.3 [address] [place] [address] [id number] Oct, Type 2 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 ; Chronic pain syndrome G89.4 ; Chronic obstructive pulmonary disease, unspecified COPD type J44.9 ; Chronic kidney disease, unspecified N18.9 and Rash R21 [address] [id number] [id number] Oct, Type 2 diabetes mellitus with diabetic neuropathy E11.[id number] [place] [address] [id number] Oct, Rash R21 and Impetigo L01.[id number] [place] [address] [id number] Oct, Chronic pain syndrome G89.4 [address] [place] [address] [id number] Oct, [address] [place] [address] [id number] Sep, Sebaceous cyst L72.3 [address] [place] [address] [id number] Sep, Sebaceous cyst L72.3 [address] [id number] Sep, Chronic pain syndrome G89.4 ; Pain in left shoulder M25.512 and Effusion of olecranon bursa, left M25.422 [facility] [address] [phone] Aug, [place] [id number] [place] [address] [id number] Aug, [place] [id number] [place] [address] [id number] Aug, Mixed hyperlipidemia E78.2 and Chronic kidney disease, unspecified N18.9 [place] [id number] [place] [address] [id number] Jul, Type 2 diabetes mellitus with diabetic neuropathy E11.40 ; Essential hypertension I10 and S/P coronary artery stent placement Z95.5 [place] [id number] [place] [address] [id number] Jul, 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 [place] [address] [place] [address] [id number] Jul, Diabetes type 2, uncontrolled E11.65 ; Essential hypertension I10 and 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 [place] [address] [place] [address] [id number] Jul, [place] [id number] [place] [address] [id number] Jul, [address] [place] [address] [id number] Jul, [place] [id number] [place] [address] [id number] Jul, Chronic obstructive pulmonary disease, unspecified COPD type J44.9 [place] [id number] [place] [address] [id number] Jun, CKD (chronic kidney disease), stage 3 (moderate) N18.3 and Anemia, unspecified type D64.9 [place] [id number] [place] [address] [id number] Jun, Type 2 diabetes mellitus with diabetic neuropathy E11.40 ; Decreased GFR R94.4 ; CKD (chronic kidney disease), stage 3 (moderate) N18.3 and Decreased hemoglobin R71.0 [place] [address] [place] [address] [id number] Jun, CKD (chronic kidney disease), stage 3 (moderate) N18.3 and Anemia, unspecified type D64.9 [place] [id number] [place] [address] [id number] Jun, Type 2 diabetes mellitus with diabetic neuropathy E11.40 ; Decreased GFR R94.4 and CKD (chronic kidney disease), stage 3 (moderate) N18.3 [place] [id number] [place] [address] [id number] Jun, Type 2 diabetes mellitus with diabetic neuropathy E11.40 and Essential hypertension I10 [place] [id number] [place] [address] [id number] Jun, [place] [id number] [place] [address] [id number] Jun, [place] [id number] [place] [address] [id number] Jun, Type 2 diabetes mellitus with diabetic neuropathy E11.40 ; S/P coronary artery stent placement Z95.5 ; Chronic obstructive pulmonary disease, unspecified COPD type J44.9 ; Essential hypertension I10 ; GERD without esophagitis K21.9 ; Peripheral vascular disease I73.9 ; Mixed hyperlipidemia E78.2 and Hospital discharge follow-up Z09 [address] [place] [address] [id number] Jun, [place] [id number] [place] [address] [id number] May, Depression F32.9 and Hyperlipidemia, unspecified hyperlipidemia E78.5 [facility] [address] [phone] May, [address] [place] [address] [id number] May, [address] [place] [address] [id number] May, Essential hypertension I10 ; Chronic pain syndrome G89.4 ; Pain in left shoulder M25.512 ; High risk medication use Z79.899 ; Chronic obstructive pulmonary disease, unspecified COPD type J44.9 ; S/P coronary artery stent placement Z95.5 ; Personal history of carotid stenosis Z86.79 ; Hyperlipidemia, unspecified hyperlipidemia E78.5 ; Decreased GFR R94.4 and Type 2 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 [place] [id number] [place] [address] [id number] May, Hemoglobin decreased R71.0 and Decreased GFR R94.[address] [id number] May, Hemoglobin decreased R71.0 and Decreased GFR R94.[address] [id number] May, [place] [id number] [place] [address] [id number] May, [place] [id number] [place] [address] [id number] Apr, [address] [id number] Apr, Type 2 diabetes mellitus with foot [...] unspecified hyperlipidemia E78.5 and Essential hypertension I10 [place] [id number] [place] [address] [id number] Apr, [place] [address] [place] [address] [id number] Mar, [place] [id number] [place] [address] [id number] Mar, [facility] [address] [address] Mar, [facility] [id number] [place] [address] [id number] Feb, [facility] [id number] [place] [address] [id number] Feb, [facility] [address] [place] [id number] [place] [address] [id number] Feb, [facility] [address] [place] [address] [id number] [place] [address] [id number] Jan, Type 2 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 ; Hypercholesterolemia E78.0 ; Chronic pain syndrome G89.4 ; Pain in left shoulder M25.512 and High risk medication use Z79.899 [facility] [address] [place] [id number] [place] [address] [id number] Jan, [facility] [address] [place] [address] [id number] [place] [address] [id number] Jan, [facility] [address] [place] [address] [id number] [place] [address] [id number] December, [facility] [id number] [place] [address] [id number] December, [facility] [address] [address] December, Diabetes type 2, uncontrolled E11.65 ; Type 2 diabetes mellitus with diabetic neuropathy E11.40 ; Peripheral vascular disease I73.9 ; 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 and 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 [facility] [id number] [id number] Nov, [facility] [id number] [place] [address] [id number] Nov, [facility] [id number][place] [id number] Nov, [facility] [id number], [place] [id number] Nov, Right hip pain M25.551 [facility] [address] [address] Nov, [facility] [address] [place] [id number] [place] [phone] Nov, [facility] [place] [id number] [place] [address] [id number] Nov, Diabetes with neurological manifestations, type II or unspecified type, 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.60 [facility] [id number] [place] [address] [id number] Nov, [facility] [address] [place] [id number] [place] [address], [place] [phone] Nov, [facility] [address] [place] [address] [id number] [place] [address], [place] [id number] Oct, Diabetes type 2, uncontrolled E11.65 ; Type 2 diabetes mellitus with diabetic neuropathy, unspecified E11.40 and Low back pain M54.5 [facility] [address] [place] [address] [id number] [place] [address] [id number] Oct, [facility] [id number] [place] [address] [id number] Oct, [facility] [id number] [place] [address] [id number] Oct, [facility] [address] [place] [id number] [place] [address] [id number] Sep, [facility] [place] [id number] [place] [address] [id number] Sep, [facility] [address]100[place], [place] [address] Sep, [facility] [id number][place] [id number] Sep, [facility] [address] [id number] [place] [address] [id number] Sep, [facility] [id number] [place] [address] [id number] Aug, 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 [facility] [id number] [place] [address] [id number] Aug, [facility] [address] [facility] [id number][place] [id number] Aug, Allergic rhinitis due to pollen J30.1 [facility] [id number][place] [id number] Jul, [facility] [address] [facility] [id number][place] [phone] Jul, [facility] [id number], [place] [id number] Jul, [facility] [address] [facility] [id number][place] [id number] Jun, [place] [id number] [place] [address] [id number] Jun, Thumb tendonitis M77.8 and Ringing in ear, bilateral H93.13 [facility] [id number][place] [id number] Jun, [facility] [address] [place] [id number][place] [id number] May, [facility] [address] [place] [id number] [place] [address] [phone]- [phone] May, [facility] [address] [place] [address] [id number] [place] [address]- 0184 May, Pre-op evaluation Z01.818 ; Encounter for immunization Z23 ; Type 2 diabetes mellitus with diabetic peripheral angiopathy without gangrene E11.51 ; Insulin long-term use Z79.4 ; Type 2 diabetes mellitus with foot ulcer E11.621 ; Peripheral vascular disease I73.9 ; Coronary artery disease involving [place] coronary artery of [place]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 ; S/P coronary artery stent placement Z95.5 ; Osteomyelitis of right foot, unspecified chronicity M86.9 and Chronic obstructive pulmonary disease, unspecified COPD type J44.9 [facility] [address] [place] [address] [phone]- [phone] May, [facility] [address], [place] [phone] May, [facility] [id number] [place] [address] [id number] May, Diabetes type 2, uncontrolled E11.65 ; Encounter for immunization Z23 ; Osteopenia M85.80 and Allergic rhinitis due to pollen J30.1 [facility] [id number] [place] [address] [id number] May, Lumbago 724.2 [facility] [id number] [place] [address] [id number] Apr, [facility] [id number] [place] [address] [phone] Apr, [facility] [id number] [place] [address] [id number] Apr, [facility] [id number] [place] [address] [id number] Apr, [facility] [id number] [place] [address] [phone] Mar, [facility] [id number] [place] [address] [id number] Mar, [facility] [id number] [place] [address] [id number] Mar, [facility] [id number] [place] [address] [id number] Mar, [facility] [id number] [place] [address] [phone] Mar, [facility] [address] [id number] [place] [address] 14248- 2546 Mar, [facility] [id number] [place] [address] [id number] Mar, [facility] [id number] [place] [address] [id number] Mar, Diabetes with neurological manifestations, type II or unspecified type, 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.60 and Severe obesity (BMI 35.0-35.9 with comorbidity) 278.01 [facility] [id number] [place] [address] [id number] Mar, [facility] [id number] [address] 25[address] Mar, [facility] [id number], [place] [address] 2546 Feb, [facility] [address] [id number][place] [id number] Feb, [facility] [id number] [place] [address] [id number] Feb, [facility] [id number] [place] [address] [id number] Feb, Diabetes with neurological manifestations, type II or unspecified type, 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.60 [facility] [place] [id number] [place] [address] [id number] Feb, [facility] [id number] [address]- 2546 Feb, [facility] [place] [id number], [place] [id number] Feb, [facility] [place] [id number], [place] [id number] Feb, Follow up V67.9 ; Diabetes with neurological manifestations, type II or unspecified type, 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.60 and Congestive heart failure 428.0 [facility] [place] [id number], [place] [id number] Jan, [facility] [place] [id number], [place] [id number] Jan, [facility] [id number], [place] [id number] Jan, [facility] [id number], [place] [id number] December, Otitis media with effusion 381.4 ; Left arm numbness 782.0 and Osteoporosis 733.00 [facility] [id number], [place] [id number] December, [facility] [id number], [place] [id number] Nov, [facility] [id number], [place] [address] Nov, Serous otitis media 381.4 and Lumbago 724.2 [facility] [place] [facility] [address]00565100[place], [place] [address]- 26[address] Nov, [facility] [place] [facility] [address] [id number], [place] [address]- 2546 Nov, [facility] [id number] [place] [address] [id number] Oct, [facility] [place] [facility] [address]00565100[place], [place] [address]- 1586 Oct, [facility] [id number] [place] [address] [id number] Oct, [facility] [place] [facility] [address]00565100[place], [place] [address]- 7706 Oct, [facility] [id number], [place] [id number] Oct, [facility] [place] [facility] [address]00565100[place], [place] [address]- 9346 Oct, [facility] [place] [facility] [address]00565100[place], [place] [address]- 2546 Sep, [facility] [place] [facility] [address]00565100[place], [place] [address]- 5336 Sep, [facility] [id number], [place] [id number] Sep, [facility] [place] [facility] [address] [id number], [place] [address]- 2546 Sep, [facility] [id number], [place] [id number] Aug, [facility] [place] [facility] [address]00565100[place], [place] [address]- 2546 Aug, [facility] [address] [id number], [place] [id number] Aug, [facility] [place] [facility] [address] [facility] [id number], [place] [address] 2546 Aug, [facility] [address] [id number], [place] [id number] Jul, [facility] [place] [facility] [address] [facility] [id number], [place] [address] 2546 Jul, [facility] [address] [facility] [id number], [place] [id number] Jul, [facility] [place] [facility] [address] [facility] [id number], [place] [address]- 2433 Jul, [facility] [address] [facility] [id number] [place] [id number] Jul, [facility] [place] [facility] [address] [facility] [id number], [place] [address]- 2803 Jul, [facility] [address] [facility] [id number], [place] [id number] Jun, [facility] [place] [facility] [address] [facility] [id number], [place] [address]- 1512 Jun, [facility] [address] [facility] [id number], [place] [id number] May, [facility] [place] [facility] [address] [facility] [id number], [place] [address]- 6283 May, [facility] [address] [facility] [id number], [place] [id number] May, [facility] [place] [facility] [address] [facility] [id number], [place] [address]- 0801 May, [facility] [address] [facility] [id number], [place] [id number] May, [facility] [place] [facility] [address] [facility] [id number], [place] [address] 2543 May, [facility] [address] [facility] [id number], [place] [id number] May, [facility] [address] [facility] [id number], [place] [id number] May, [facility] [place] [facility] [address] [facility] [id number], [place] [address]- 2598 May, [facility] [place] [facility] [address] [facility] [id number], [place] [address]- 9126 May, [facility] [address] [facility] [id number], [place] [id number] May, [facility] [place] [facility] [address] [facility] [id number], [place] [address]- 9857 May, [facility] [place] [facility] [address] [facility] [id number], [place] [address]- 9214 Apr, [facility] [address] [facility] [id number], [place] [id number] Apr, [facility] [place] [facility] [address] [facility] [id number], [place] [address]- 6242 Apr, [facility] [address] [id number], [place] [id number] Apr, [facility] [address] [facility] [id number], [place] [id number] Apr, [facility] [place] [facility] [address] [facility] [id number], [place] [address]- 1441 Apr, [facility] [place] [facility] [address] [facility] [id number], [place] [address]- 0823 Apr, [facility] [address] [facility] [id number], [place] [id number] Apr, [facility] [place] [facility] [address] [facility] [id number], [place] [address]- 6211 Apr, [facility] [address] [facility] [id number], [place] [id number] Apr, [facility] [place] [facility] [address] [facility] [id number], [place] [address]- 5378 Apr, [facility] [address] [facility] [id number], [place] [id number] Apr, [facility] [place] [facility] [address] [facility] [id number], [place] [address]- 7168 Apr, [facility] [address] [id number] [place] 843194310 Apr, [facility] [place] [facility] [address] [facility] [id number] [place] [address]- 2285 Apr, [facility] [address] [id number] [place] [id number] Apr, [facility] [place] [facility] [address] [facility] [id number] [place] [address]- 6254 Apr, [facility] [address] [id number] [place] [id number] Apr, [facility] [place] [facility] [address] [facility] [id number] [place] [address]- 7660 Apr, [facility] [address] [id number] [place] [id number] Mar, [facility] [place] [facility] [address] [facility] [id number], [place] [address]- 4863 Mar, [facility] [address] [id number] [place] [id number] Mar, [facility] [address] [id number] [place] [id number] Mar, [facility] [place] [facility] [address] [facility] [id number], [place] [address]- 3280 Mar, [facility] [place] [facility] [address] [facility] [id number], [place] [address]- 5211 Mar, [facility] [address] [id number], [place] [id number] Mar, [facility] [place] [facility] [address] [facility] [id number] [place] [address]- 1370 Mar, [facility] [address] [id number] [place] [id number] Mar, [facility] [place] [facility] [address] [facility] [id number] [place] [address]- 1676 Mar, [facility] [address] [id number] [place] [id number] Mar, [facility] [place] [facility] [address] [id number] [place] [address]- 6610 Mar, [facility] [address] [id number] [place] [id number] Mar, [facility] [place] [facility] [address] [facility] [id number] [place] [address]- 6462 Mar, [facility] [address] [id number] [place] [id number] Mar, [facility] [place] [facility] [address] [facility] [id number] [place] [address]- 6212 Mar, [facility] [address] [id number] [place] [id number] Mar, [facility] [place] [facility] [address] [facility] [id number] [place] [address]- 0497 Mar, [facility] [address] [facility] [id number] [place] [id number] Mar, [facility] [place] [facility] [address] [facility] [id number] [place] [address]- 9167 Mar, [facility] [address] [id number] [place] [id number] Feb, [facility] [place] [facility] [address] [facility] [id number], [place] [address]- 2354 Feb, [facility] [address] [id number] [place] [id number] Feb, [facility] [place] [facility] [address] [facility] [id number], [place] [address]- 8770 Feb, [facility] [address] [id number] [place] [id number] Feb, [facility] [place] [facility] [address] [facility] [id number] [place] [address]- 4235 Feb, [facility] [address] [id number] [place] [id number] Feb, [facility] [place] [facility] [address] [facility] [id number] [place] [address]- 8206 Feb, [facility] [address] [id number] [place] [id number] Feb, [facility] [place] [facility] [address] [id number] [place] [address]- 8634 Feb, [facility] [address] [id number] [place] [id number] Feb, [facility] [place] [facility] [address] [id number] [place] [address]- 4401 Feb, 2013 [facility] [address] [id number] [place] [id number] Feb, [facility] [place] [facility] [address] [id number] [place] [address]- 0502 Feb, [facility] [address] [id number] [place] [id number] Feb, [facility] [place] [facility] [address] [facility] [id number] [place] [address]- 1924 Feb, [facility] [address] [id number] [place] [id number] Feb, [facility] [place] [facility] [address] [facility] [id number], [place] [address]- 9552 Feb, [facility] [address] [id number] [place] [id number] Feb, [facility] [address] [id number] [place] [id number] Feb, [facility] [place] [facility] [address] [facility] [id number], [place] [address]- 4376 Feb, [facility] [place] [facility] [address] [id number] [place] [address]- 6439 Feb, [facility] [address] [id number] [place] [id number] Feb, [facility] [place] [facility] [address] [id number] [place] [address]- 9323 Feb, [facility] [address] [id number] [place] [id number] Feb, [facility] [place] [facility] [address] [id number] [place] [address]- 1119 Feb, [facility] [address] [id number] [place] [id number] Feb, [facility] [place] [facility] [address] [id number] [place] [address]- 0039 Feb, [facility] [address] [id number] [place] [id number] Jan, [facility] [place] [facility] [address] [id number] [place] [address]- 1221 Jan, [facility] [place] [facility] [address] [id number] [place] [address]- 2408 Jan, [facility] [place] [facility] [address] [facility] [id number] [place] [address]- 2872 Jan, [facility] [place] [facility] [address] [id number] [place] [address]- 1210 Jan, [facility] [place] [facility] [address] [id number] [place] [address]- 8862 Jan, [facility] [address] [id number] [place] [id number] Jan, [facility] [place] [facility] [address] [id number] [place] [address]- 6909 Jan, [facility] [place] [facility] [address] [id number] [place] [address]- 0419 Jan, [facility] [place] [facility] [address] [id number] [place] 13322054- 8191 Jan, [facility] [address] [id number] [place] [id number] Jan, [facility] [address] [id number] [place] [id number] Jan, [facility] [place] [facility] [address] [id number] [place] [address]- 0872 Jan, [facility] [place] [facility] [address] [id number] [place] [address]- 2546 Jan, [facility] [address] [id number] [place] [id number] Jan, [facility] [address] [id number] [place] 212271600 Jan, [facility] [place] [facility] [address] [facility] [id number] [place] [address]- 9476 Jan, [facility] [place] [facility] [address] [facility] [id number] [place] [address]- 4406 Jan, [facility] [place] [facility] [address] [id number] [place] [address]- 3356 Jan, [facility] [address] [facility] [id number] [place] [id number] December, [facility] [place] [facility] [address] [facility] [id number] [place] [address]- 8086 December, [facility] [place] [facility] [address] [facility] [id number], [place] [address]- 2156 December, [facility] [address] [facility] [id number] [place] 817447545 December, [facility] [place] [facility] [address] [facility] [id number], [place] [address]- 7766 December, [facility] [address] [facility] [id number] [place] [id number] December, [facility] [place] [facility] [address] [facility] [id number], [place] [address]- 5206 December, [facility] [address] [id number] [place] 049048736 December, [facility] [place] [facility] [address] [facility] [id number] [place] [address]- 5566 December, [facility] [address] [facility] [id number] [place] [id number] Nov, [facility] [place] [facility] [address] [facility] [id number] [place] [address]- 5386 Nov, [facility] [address] [facility] [id number], [place] [id number] Nov, [facility] [place] [facility] [address] [facility] [id number] [place] [address]- 1547 Nov, [facility] [place] [facility] [address] [facility] [id number] [place] [address]- 6511 Nov, [facility] [place] [facility] [address] [facility] [id number] [place] [address]- 6725 Nov, [facility] [place] [facility] [address] [facility] [id number] [place] [address]- 3804 Oct, [facility] [address] [facility] [id number] [place] 880530186 Oct, [facility] [place] [facility] [address] [id number], [place] [address]- 5532 Oct, [facility] [address] [facility] [id number], [place] [id number] Oct, [facility] [place] [facility] [address] [facility] [id number], [place] [address]- 0098 Oct, [facility] [address] [facility] [id number], [place] 945212733 Sep, [facility] [place] [facility] [address]00565100[place], [place] [address]- 0888 Sep, [facility] [address] [facility] [id number], [place] [id number] Aug, [facility] [place] [facility] [address] [facility] [id number], [place] [address]- 7991 Aug, [facility] [address] [facility] [id number], [place] [id number] Aug, [facility] [place] [facility] [address] [facility] [id number], [place] [address]- 9064 Aug, [facility] [place] [facility] [address] [facility] [id number], [place] [address]- 3257 Aug, [facility] [address] [facility] [id number], [place] [id number] Aug, [facility] [address] [facility] [id number], [place] [address]- 5897 Aug, [facility] [place] [facility] [address] [facility] [id number], [place] [address]- 7126 Aug, [facility] [address] [facility] [id number], [place] [id number] Aug, [facility] [place] [facility] [address] [facility] [id number], [place] [address]- 4121 Aug, [facility] [address] [facility] [id number], [place] [id number] Jul, [facility] [address] [facility] [id number], [place] [address]- 4232 Jul, [facility] [address] [facility] [id number], [place] [id number] Jul, [facility] [address]00565100[place], [place] [address]- 9768 Jul, [facility] [address] [facility] [id number], [place] [id number] Jul, [facility] [address]00565100[place], [place] [address]- 9220 Jul, [facility] [address] [facility] [id number], [place] [id number] Jul, [facility] [place] [facility] [address] [id number], [place] [address]- 8056 Jul, [facility] [address] [facility] [id number], [place] [address]30975506 Jun, [facility] [place] [facility] [address] [facility] [id number], [place] [address]- 7966 Jun, [facility] [address] [facility] [id number], [place] [id number] Jun, [facility] [place] [facility] [address] [id number], [place] [address]- 2267 Jun, [facility] [address] [facility] [id number], [place] [address] Jun, 2013 [facility] [address] [facility] [id number], [place] [address] Jun, [facility] [address] [id number] [place] [id number] Apr, [facility] [place] [address] [id number] [place] [id number] Mar, [facility] [place] [address] [id number] [place] [id number] Mar, [facility] [place] [address] [id number] [place] [id number] Feb, [facility] [place] [address] [id number] [place] [id number] Feb, [facility] [place] [address] [id number] [place] [id number] Feb, [facility] [place] [address] [id number] [place] [id number] December, [facility] [place] [address] [id number] [place] [id number] December, [facility] [id number], [place] [address] December, [facility] [place] [address] [id number] [place] [id number] December, [facility] [place] [address] [id number] [place] [id number] December, [facility] [place] [address] [id number] [place] [id number] Nov, [facility] [place] [address] [id number] [place] [id number] Nov, [facility] [place] [address] [id number] [place] [id number] Nov, [facility] [address] [id number] [place] [id number] Oct, [facility] [place] [address] [id number] [place] [id number] Sep, [facility] [place] [address] [id number] [place] [id number] Aug, [facility] [address] [facility] [id number], [place] [address] Aug, [facility] [place] [address] [id number] [place] [id number] Aug, [facility] [place] [address] [id number] [place] [id number] Jul, [facility] [address] [facility] [id number], [place] [address] Jul, [facility] [place] [address] [id number] [place] [id number] Jul, [facility] [address] [facility] [id number], [place] [address] Jul, [facility] [place] [address] [id number] [place] [id number] Jun, [facility] [id number], [place] [address] Jun, [facility] [address] [id number][place] [id number] May, [facility] [id number], [place] [address] May, [facility] [address] [id number][place] [id number] May, [facility] [address] [facility] [id number], [place] [address] May, [facility] [address] [id number] [place] [id number] Apr, [facility] [place] [address] [id number] [place] [id number] Apr, [facility] [address] [id number] [place] [id number] Mar, [facility] [address] [id number] [place] [id number] Mar, [facility] [address] [id number] [place] [id number] Feb, [facility] [address] [id number] [place] [id number] Feb, [facility] [place] [address] [id number] [place] [id number] Jan, [facility] [place] [address] [id number] [place] [id number] Jan, [facility] [place] [address] [id number] [place] [id number] Jan, [facility] [place] [address] [id number] [place] [id number] Jan, [facility] [place] [address] [id number] [place] [id number] December, [facility] [place] [address] [id number] [place] [id number] December, [facility] [address] [facility] [id number], [place] [address] Nov, [facility] [place] [address] [id number] [place] [id number] Nov, [facility] [place] [address] [id number] [place] [id number] Nov, [facility] [place] [address] [id number] [place] [id number] Nov, [facility] [place] [address] [id number] [place] [id number] Nov, [facility] [address] [facility] [id number], [place] [address] Oct, [facility] [address] [facility] [id number], [place] [address] Oct, [facility] [place] [address] [id number] [place] [id number] Oct, [facility] [address] [id number] [id number] Oct, [facility] [address] [id number] [place] [id number] Oct, [facility] [place] [address] [id number] [place] [id number] Oct, [facility] [place] [address] [id number] [place] [id number] Oct, [facility] [place] [address] [id number] [place] [id number] Oct, [facility] [place] [address] [id number] [place] [id number] Oct, [facility] [address] [facility] [id number], [place] [address]- [address] Oct, [facility] [place] [address] [id number] [place] [id number] Sep, [facility] [place] [address] [id number] [place] [id number] Sep, [facility] [place] [address] [id number] [place] [id number] Aug, [facility] [place] [address] [id number] [place] [id number] Aug, [facility] [address] [facility] [id number] [address] Jul, [facility] [id number] [address] Jul, [facility] [id number], [place] [address] Jul, [facility] [id number], [place] [address] Jul, [facility] [address] [facility] [id number], [place] [address] Jul, [facility] [address] [facility] [id number], [place] [address] Jul, [facility] [address] [facility] [id number], [place] [address] Jul, [facility] [id number], [place] [address] Jul, [facility] [address] [id number] [address] Jul, [facility] [address] [id number] [address] Jul, [facility] [address] [id number], [place] [address] Jul, [facility] [address] [id number], [place] [address] Jul, [facility] [address] [id number], [place] [address] Jul, [facility] [id number] [address] Jul, IMMUNIZATIONS No Known Immunizations SOCIAL HISTORY Never Assessed REASON FOR VISIT med refill PLAN OF CARE VITAL SIGNS MEDICATIONS Medication Instructions Dosage Frequency Start Date End Date Duration Status Lasix 20 mg Orally Once a day 1 tablet 24h 0 days Active RESULTS No Results PROCEDURES No Known procedures INSTRUCTIONS MEDICATIONS ADMINISTERED No Known Medications MEDICAL (GENERAL) HISTORY Type Description Date Medical History peripheral vascular disease s/p angioplasty w/ stent R leg Medical History hypertension Medical 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 Secondary to ATN from [facility] 4.3 Medical History HX of dry [...] in the future. Medical History 05/26/17 noted, group home has ended and they feel he is [...] Surgical History Left eye retinal eye repair ([facility]) 06/2014 Surgical History amputation, toe-right third toe ([facility]) 2013 Surgical History Right eye retinal eye repair ([facility]) 09/2014 Surgical History heart [...]
[2018-06-20] MEDS ORDERED: LACTATED RINGERS 1,000 ML IV SCH (10:03)
--- NOTE | 2018-06-20 10:03 | Progress Note-Post Operative ---
Post-Operative Progess Note Surgeon (s)/Jointer Machine Operator (s) Surgeon MISAEL MAY DPM Jointer Machine Operator: none Pre-Operative Diagnosis Exostosis, left 2nd Metatarsal Post-Operative Diagnosis same Procedure & Operative Findings Date of Procedure 06/20/18 Procedure Performed/Findings Exostectomy, left 2nd metatarsal (removal of metatarsal head) Anesthesia Type MAC Estimated Blood Loss Estimated blood loss (mL): Minimal Specimens/Packing Specimens Removed Bone from 2nd metatarsal head area MISAEL MAY DPM Jun 20, 2018 10:02 am
--- OUTSIDE RECORDS SUMMARY | 2018-06-20 10:03 | XMS REPORT ---
Author Author SATINDER GOOD [facility] Address [address] [place] [address] Care Team Providers Care Personnel Research Scientist Name Role Phone SATINDER GOOD Unavailable PROBLEMS Type Condition ICD9-CM Code [id number] Code Onset Dates Condition Status SNOMED Code Problem S/P coronary artery stent placement Z95.5 Active 125062035 Problem Type 2 diabetes mellitus with diabetic peripheral angiopathy without gangrene E11.51 Active 724886445 Problem Depression F32.9 Active 72600369 Problem Type 2 diabetes mellitus with diabetic neuropathy E11.40 Active 48098839 Problem Hyperlipidemia, unspecified hyperlipidemia E78.5 Active 64867001 Problem Coronary artery disease involving quinault coronary artery of quinault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 Active 0025587487827 Problem Peripheral vascular disease I73.9 Active 371013086 Problem Chronic obstructive pulmonary disease, unspecified COPD type J44.9 Active 82539969 Problem Osteomyelitis of right foot, unspecified chronicity M86.9 Active 95713972 Problem CKD (chronic kidney disease) stage 3, GFR 30-59 ml/min N18.3 Active 617146960 Problem Type 2 diabetes mellitus with diabetic retinopathy, macular edema presence unspecified, with unspecified retinopathy severity E11.319 Active 73565007 Problem GERD without esophagitis K21.9 Active 064900798 Problem Bilateral low back pain without sciatica M54.5 Active 067211881 Problem Mixed hyperlipidemia E78.2 Active 816824713 Problem Frequent falls R29.6 Active 221048175 Problem Chronic kidney disease, unspecified N18.9 Active 883146889 Problem Other chronic pain G89.29 Active 70594565 Problem Chronic diarrhea K52.9 Active 903098310 Problem Hypercholesterolemia E78.0 Active 20823615 Problem 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 Active 966294576 Problem 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 Active 257686107 Problem Obesity (BMI 30.0-34.9) E66.9 Active 046488166091987 Problem Comprehensive diabetic foot examination, type 2 DM, encounter for E11.9 Active 52981150 Problem Uses walker Z99.89 Active 911987499 Problem Aphasia R47.01 Active 79078087 Problem Insulin long-term use Z79.4 Active 218640924 Problem Fatigue, unspecified type R53.83 Active 35851636 Problem Type 2 diabetes mellitus with foot ulcer E11.621 Active 369981047 Problem Pain in left shoulder M25.512 Active 16646918 Problem Type 2 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 Active 200216583 Problem Diabetes type 2, uncontrolled E11.65 Active 239560321 Problem Personal history of carotid stenosis Z86.79 Active 574952658 Problem Essential hypertension I10 Active 17081240 Problem CKD (chronic kidney disease), stage 3 (moderate) N18.3 Active 848873391 Problem Chronic pain syndrome G89.4 Active 167203181 Problem High risk medication use Z79.899 Active 224402462 ALLERGIES No Information ENCOUNTERS Encounter Location Date Diagnosis [facility] [place] [address] [id number] December, Medicare annual wellness visit, subsequent Z00.00 [facility] [address] [id number] Nov, Other chronic pain G89.[address] [id number] Oct, [facility] [address] [id number] Oct, [facility] [address] [id number] Oct, Other chronic pain G89.29 [place] [address] [id number] Sep, Other chronic pain G89.29 [facility] [place] [address] [id number] Aug, CKD (chronic kidney disease), stage 3 (moderate) N18.3 ; Anemia, unspecified type D64.9 and Dilated pore of Ly L70.8 [facility] [place] [address] [id number] Aug, Other chronic pain G89.29 ; Pain in left shoulder M25.512 ; High risk medication use Z79.899 ; Uses walker Z99.89 ; Diabetes type 2, uncontrolled E11.65 and Depression F32.9 [facility] [id number] [place] [address] [id number] Aug, Chronic diarrhea K52.9 [place] [address] [place] [address] [id number] Aug, Chronic diarrhea K52.9 ; Type 2 diabetes mellitus with diabetic neuropathy E11.40 ; Diabetes type 2, uncontrolled E11.65 ; Insulin long-term use Z79.4 ; Chronic obstructive pulmonary disease, unspecified COPD type J44.9 ; Chronic pain syndrome G89.4 ; Pain in left shoulder M25.512 ; Uses walker Z99.89 ; S/P coronary artery stent placement Z95.5 ; Mixed hyperlipidemia E78.2 and Essential hypertension I10 [place] [address] [place] [address] [id number] Aug, [place] [address] [place] [address] [id number] Jul, Diabetes type 2, uncontrolled E11.65 [place] [address] [place] [address] [id number] Jul, Diabetes type 2, uncontrolled E11.65 ; Type 2 diabetes mellitus with diabetic neuropathy E11.40 ; Insulin long-term use Z79.4 and Chronic obstructive pulmonary disease, unspecified COPD type J44.[address] [place] [address] [id number] Jun, [address] [place] [address] [id number] Jun, Essential hypertension I10 [place] [address] [place] [address] [id number] Jun, Essential hypertension I10 [place] [address] [place] [address] [id number] Jun, Type 2 diabetes mellitus with diabetic neuropathy E11.40 ; Type 2 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 ; S/P coronary artery stent placement Z95.5 ; Obesity (BMI 30.0-34.9) E66.9 ; Mixed hyperlipidemia E78.2 ; Frequent falls R29.6 ; Chronic obstructive pulmonary disease, unspecified COPD type J44.9 ; Essential hypertension I10 ; Insulin long-term use Z79.4 and High risk medication use Z79.899 [address] [place] [address] [id number] May, Diarrhea, unspecified type R19.7 ; Type 2 diabetes mellitus with diabetic neuropathy E11.40 ; Chronic obstructive pulmonary disease, unspecified COPD type J44.9 ; S/P coronary artery stent placement Z95.5 ; High risk medication use Z79.899 ; Essential hypertension I10 ; Encounter for administration of vaccine Z23 and Encounter for immunization Z23 [address] [id number] [id number] May, Chronic obstructive pulmonary disease, unspecified COPD type J44.9 [address] [place] [address] [id number] May, Type 2 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 ; Encounter for immunization Z23 ; Needs flu shot Z23 ; Comprehensive diabetic foot examination, type 2 DM, encounter for E11.9 and Obesity (BMI 30.0-34.9) E66.9 [address] [place] [address] [id number] May, [address] [place] [address] [id number] Apr, [place] [address] [place] [address] [id number] Apr, Essential hypertension I10 and Aphasia R47.01 [place] [address] [place] [address] [id number] Apr, [place] [address] [place] [address] [id number] Apr, Type 2 diabetes mellitus with diabetic [...] type J44.9 [facility] [address] [place] [id number] [place] [address] [id number] Mar, [facility] [place] [address] [place] [id number] [place] [address] [id number] Mar, Type 2 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 ; Leg wound, left, initial encounter S81.802A ; Hx of shoulder surgery Z98.890 ; Acute pain of left shoulder M25.512 and Fall, initial encounter W19.XXXA [facility] [place] [address] [id number] Feb, Follow-up exam Z09 ; Hx of shoulder surgery Z98.890 ; Acute pain of left shoulder M25.512 ; Essential hypertension I10 and Leg wound, left, initial encounter S81.802A [facility] [place] [address] [place] [id number] [place] [address] [id number] Feb, [facility] [address] [place] [id number] [place] [address] [id number] Feb, [facility] [address] [place] [id number] [place] [address] [id number] Feb, Chronic obstructive pulmonary disease, unspecified COPD type J44.9 [facility] [address] [place] [id number] [place] [address] [id number] Feb, [facility] [address] [place] [id number] [place] [address] [id number] Jan, Generalized weakness R53.1 ; Exertional shortness of breath R06.02 and Fungal rash of trunk B36.9 [facility] [address] [place] [id number] [place] [address] [id number] Jan, [facility] [place] [address] [place] [id number] [place] [address] [id number] Jan, [facility] [place] [address] [place] [id number] [place] [address] [id number] Jan, [facility] [place] [address] [place] [id number] [place] [address] [id number] Jan, [address] [id number][place] [id number] December, High risk medication use Z79.899 [address] [id number] December, Type 2 diabetes mellitus with diabetic neuropathy E11.[address] [id number][place] [id number] December, High risk medication use Z79.[address] [id number][place] [id number] Nov, Diabetes type 2, uncontrolled E11.65 [address] [place] [address] [id number] Nov, Medicare annual wellness visit, initial Z00.00 ; Bilateral low back pain without sciatica M54.5 ; Pain in left shoulder M25.512 ; Chronic pain syndrome G89.4 ; Type 2 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 ; High risk medication use Z79.899 and Encounter for immunization Z23 [address] [id number] Nov, Type 2 diabetes mellitus with diabetic neuropathy E11.40 ; Coronary artery disease involving quinault coronary artery of quinault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 and CKD (chronic kidney disease), stage 3 (moderate) N18.[address] [id number][place] [id number] Oct, Type 2 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 ; Chronic pain syndrome G89.4 ; Chronic obstructive pulmonary disease, unspecified COPD type J44.9 ; Chronic kidney disease, unspecified N18.9 and Rash R21 [place] [address] [facility] [address] [id number] [place] [id number] Oct, Type 2 diabetes mellitus with diabetic neuropathy E11.[address] [id number][place] [id number] Oct, Rash R21 and Impetigo L01.[address] [id number][place] [id number] Oct, Chronic pain syndrome G89.4 [facility] [id number] [id number] Oct, [facility] [id number] [place] [address] [id number] Sep, Sebaceous cyst L72.3 [facility] [id number], [place] [id number] Sep, Sebaceous cyst L72.3 [facility] [address] [place] [id number] [place] [address] [id number] Sep, Chronic pain syndrome G89.4 ; Pain in left shoulder M25.512 and Effusion of olecranon bursa, left M25.422 [facility] [address] [id number] [address] Aug, [facility] [id number] [place] [address] [id number] Aug, [facility] [address] [place] [id number] [place] [address] [id number] Aug, Mixed hyperlipidemia E78.2 and Chronic kidney disease, unspecified N18.9 [facility] [address] [place] [id number] [place] [address] [id number] Jul, Type 2 diabetes mellitus with diabetic neuropathy E11.40 ; Essential hypertension I10 and S/P coronary artery stent placement Z95.5 [facility] [id number] [place] [address] [id number] Jul, 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 [facility] [id number] [place] [address] [id number] Jul, Diabetes type 2, uncontrolled E11.65 ; Essential hypertension I10 and 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 [place] [address] [id number] [place] [address] [id number] Jul, [facility] [id number] [place] [address] [id number] Jul, [facility] [id number] [place] [address] [id number] Jul, [facility] [address] [place] [id number] [place] [address] [id number] Jul, Chronic obstructive pulmonary disease, unspecified COPD type J44.9 [address] [place] [address] [id number] Jun, CKD (chronic kidney disease), stage 3 (moderate) N18.3 and Anemia, unspecified type D64.9 [address] [place] [address] [id number] Jun, Type 2 diabetes mellitus with diabetic neuropathy E11.40 ; Decreased GFR R94.4 ; CKD (chronic kidney disease), stage 3 (moderate) N18.3 and Decreased hemoglobin R71.0 [place] [address] [place] [address] [id number] Jun, CKD (chronic kidney disease), stage 3 (moderate) N18.3 and Anemia, unspecified type D64.9 [address] [place] [address] [id number] Jun, Type 2 diabetes mellitus with diabetic neuropathy E11.40 ; Decreased GFR R94.4 and CKD (chronic kidney disease), stage 3 (moderate) N18.3 [address] [place] [address] [id number] Jun, Type 2 diabetes mellitus with diabetic neuropathy E11.40 and Essential hypertension I10 [address] [place] [address] [id number] Jun, [address] [place] [address] [id number] Jun, [place] [id number] [place] [address] [id number] Jun, Type 2 diabetes mellitus with diabetic neuropathy E11.40 ; S/P coronary artery stent placement Z95.5 ; Chronic obstructive pulmonary disease, unspecified COPD type J44.9 ; Essential hypertension I10 ; GERD without esophagitis K21.9 ; Peripheral vascular disease I73.9 ; Mixed hyperlipidemia E78.2 and Hospital discharge follow-up Z09 [address] [place] [id number] Jun, [address] [id number] May, Depression F32.9 and Hyperlipidemia, unspecified hyperlipidemia E78.5 [facility] [address] [id number] May, [address] [place] [address] [id number] May, [place] [address] [place] [address] [id number] May, Essential hypertension I10 ; Chronic pain syndrome G89.4 ; Pain in left shoulder M25.512 ; High risk medication use Z79.899 ; Chronic obstructive pulmonary disease, unspecified COPD type J44.9 ; S/P coronary artery stent placement Z95.5 ; Personal history of carotid stenosis Z86.79 ; Hyperlipidemia, unspecified hyperlipidemia E78.5 ; Decreased GFR R94.4 and Type 2 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 [place] [address] [place] [address] [id number] May, Hemoglobin decreased R71.0 and Decreased GFR R94.4 [place] [address] [place] [address] [id number] May, Hemoglobin decreased R71.0 and Decreased GFR R94.4 [place] [address] [place] [address] [id number] May, [address] [place] [address] [id number] May, [place] [address] [place] [address] [id number] Apr, [place] [address] [place] [address] [id number] Apr, Type 2 diabetes mellitus with foot [...] hypertension I10 [facility] [id number] [place] [address] [id number] Apr, [facility] [address] [place] [id number] [place] [address] [id number] Mar, [facility] [id number] [place] [address] [id number] Mar, [facility] [address] [place] [id number] [place] [phone] Mar, [facility] [address] [place] [id number] [place] [address] [id number] Feb, [facility] [address] [place] [id number] [place] [address] [id number] Feb, [facility] [address] [place] [id number] [place] [address] [id number] Feb, [facility] [address] [place] [id number] [place] [address] [id number] Jan, Type 2 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 ; Hypercholesterolemia E78.0 ; Chronic pain syndrome G89.4 ; Pain in left shoulder M25.512 and High risk medication use Z79.899 [facility] [address] [place] [id number] [place] [address] [id number] Jan, [facility] [address] [place] [id number] [place] [address] [id number] Jan, [facility] [address] [place] [id number] [place] [address] [id number] December, [facility] [address] [place] [id number] [place] [address] [id number] December, [facility] [address]00565100[place], [place] [address] December, Diabetes type 2, uncontrolled E11.65 ; Type 2 diabetes mellitus with diabetic neuropathy E11.40 ; Peripheral vascular disease I73.9 ; 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 and 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 [facility] [id number] [place] [address] [id number] Nov, [facility] [address] [id number] [id number] Nov, [facility] [address] [id number] [place] [id number] Nov, [facility] [address] [id number], [place] [id number] Nov, Right hip pain M25.551 [facility] [address] [place] [id number] [place] [phone] Nov, [facility] [address] [place] [id number] [place] [phone] Nov, [facility] [place] [id number] [place] [address] [id number] Nov, Diabetes with neurological manifestations, type II or unspecified type, 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.60 [facility] [place] [id number] [place] [address] [id number] Nov, [facility] [place] [id number] [place] [address] [id number] Nov, [facility] [place] [address] [id number][place] [id number] Oct, Diabetes type 2, uncontrolled E11.65 ; Type 2 diabetes mellitus with diabetic neuropathy, unspecified E11.40 and Low back pain M54.5 [facility] [address] [id number], [place] [id number] Oct, [facility] [address] [id number][place] [id number] Oct, [facility] [address] [id number], [place] [id number] Oct, [facility] [place] [address] [id number], [place] [id number] Sep, [facility] [place] [address] [place] [id number] [place] [address] [id number] Sep, [facility] [address]100[place], [place] [address] Sep, [facility] [place] [id number] [place] [address] [id number] Sep, [facility] [address] [facility] [id number][place] [id number] Sep, [facility] [id number] [place] [address] [id number] Aug, 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 [facility] [id number], [place] [id number] Aug, [facility] [id number] [place] [address] [id number] Aug, Allergic rhinitis due to pollen J30.[address] [id number] [place] [id number] Jul, [facility] [id number] [place] [address] [id number] Jul, [facility] [id number] [place] [address] [id number] Jul, [place] [address] [id number] [place] [address] [id number] Jun, [facility] [id number] [place] [address] [id number] Jun, Thumb tendonitis M77.8 and Ringing in ear, bilateral H93.13 [address] [id number] [place] [id number] Jun, [facility] [id number], [place] [id number] May, [facility] [id number] [place] [phone] May, [facility] [address] [place] [address] [phone] May, Pre-op evaluation Z01.818 ; Encounter for immunization Z23 ; Type 2 diabetes mellitus with diabetic peripheral angiopathy without gangrene E11.51 ; Insulin long-term use Z79.4 ; Type 2 diabetes mellitus with foot ulcer E11.621 ; Peripheral vascular disease I73.9 ; Coronary artery disease involving quinault coronary artery of quinault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 ; S/P coronary artery stent placement Z95.5 ; Osteomyelitis of right foot, unspecified chronicity M86.9 and Chronic obstructive pulmonary disease, unspecified COPD type J44.9 [facility] [address] [address] May, [facility] [address] [place] [id number] [place] [address] [id number] May, [facility] [address] [id number] May, Diabetes type 2, uncontrolled E11.65 ; Encounter for immunization Z23 ; Osteopenia M85.80 and Allergic rhinitis due to pollen J30.1 [facility] [address] [id number] [place] [address] [id number] May, Lumbago 724.2 [facility] [id number] [place] [address] [id number] Apr, [address] [id number] Apr, [facility] [id number] [place] [address] [id number] Apr, [facility] [id number] [place] [address] [id number] Apr, [facility] [id number] [place] [address] [phone] Mar, [facility] [id number] [place] [address] [id number] Mar, [facility] [id number] [place] [address] [id number] Mar, [facility] [id number] [place] [address] [id number] Mar, [facility] [id number] [place] [address] [id number] Mar, [facility] [id number] [place] [address] [phone] Mar, [facility] [id number] [place] [address] [id number] Mar, [facility] [id number], [place] [id number] Mar, Diabetes with neurological manifestations, type II or unspecified type, 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.60 and Severe obesity (BMI 35.0-35.9 with comorbidity) 278.01 [facility] [address] [id number] [place] [phone] Mar, [facility] [place] [id number] [place] [phone] Mar, [facility] [place] [id number] [place] [address]51- 2546 Feb, [facility] [address] [id number] [place] [id number] Feb, [facility] [address] [id number] [place] 53572[address] Feb, [facility] [address] [id number] [place] [address]45[address] Feb, Diabetes with neurological manifestations, type II or unspecified type, 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.60 [facility] [id number] [place] [id number] Feb, [facility] [place] [id number] [place] [address] 92506- 2546 Feb, [facility] [address] [id number] [address] Feb, [facility] [id number] [place] [address] Feb, Follow up V67.9 ; Diabetes with neurological manifestations, type II or unspecified type, 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.60 and Congestive heart failure 428.0 [facility] [address] [id number] [place] [address] Jan, [facility] [address] [id number] [place] [address]47[address] Jan, [facility] [address] [id number] [place] 52335[address]79 Jan, [facility] [address] [id number][place] [id number] December, Otitis media with effusion 381.4 ; Left arm numbness 782.0 and Osteoporosis 733.00 [facility] [id number], [place] 604[address]763 December, [facility] [place] [id number], [place] 324367968 Nov, [facility] [id number], [place] 878956557 Nov, Serous otitis media 381.4 and Lumbago 724.2 [facility] [id number] [place] [address] 64375- 9287 Nov, [facility] [place] [facility] [id number] [place] [address] 88473- 9316 Nov, [facility] [id number], [place] 942[address]476 Oct, [facility] [id number] [place] [address] 71924- 4986 Oct, [facility] [place] [id number], [place] [id number] Oct, [facility] [id number] [place] [address] 453938- 3945 Oct, [facility] [place] [id number], [place] [address] Oct, [facility] [id number] [place] [address] 20092- 0816 Oct, [facility] [place] [facility] [address]00565100[place] [address]- 7606 Sep, [facility] [place] [facility] [address]00565100[place], [place] [address]- 7586 Sep, [facility] [id number], [place] [id number] Sep, [facility] [address]00565100[place] [address]- 5[address] Sep, [facility] [address] [id number] [place] [address]076948 Aug, [facility] [place] [facility] [address] [id number] [address]- 0614 Aug, [facility] [address] [id number] [place] [id number] Aug, [facility] [place] [facility] [address] [facility] [id number] [address]- 1176 Aug, [facility] [address] [id number][place] [id number] Jul, [facility] [place] [facility] [address] [facility] [id number], [place] [address]- 8748 Jul, [facility] [address] [facility] [id number][place] [id number] Jul, [facility] [place] [facility] [address] [facility] [id number] [address]- 1912 Jul, [facility] [address] [facility] [id number], [place] 232172989 Jul, [facility] [place] [facility] [address] [facility] [id number], [place] [address]- 3043 Jul, [facility] [address] [facility] [id number], [place] 529252471 Jun, [facility] [place] [facility] [address] [facility] [id number], [place] [address]- 5884 Jun, [facility] [address] [facility] [id number], [place] 188517308 May, [facility] [place] [facility] [address] [facility] [id number] [address]- 5871 May, [facility] [address] [id number] [place] 5167[place]889 May, [facility] [place] [facility] [address] [facility] [id number] [place] [address]- 1567 May, [facility] [address] [id number], [place] 770269228 May, [facility] [place] [facility] [address] [facility] [id number][place] [address]- 9323 May, [facility] [address] [id number], [place] [id number] May, [facility] [address] [facility] [id number], [place] 072316351 May, [facility] [place] [facility] [address] [facility] [id number][place] [address]- 5521 May, [facility] [place] [facility] [address] [facility] [id number] [address]- 6183 May, [facility] [address] [facility] [id number], [place] 689158047 May, [facility] [place] [facility] [address] [facility] [id number], [place] [address]- 8197 May, [facility] [place] [facility] [address]00565100[place], [place] [address]- 3811 Apr, [facility] [address] [facility] [id number], [place] [id number] Apr, [facility] [place] [facility] [address] [facility] [id number][place] [address]- 2938 Apr, [facility] [address] [facility] [id number], [place] [id number] Apr, [facility] [address] [facility] [id number], [place] [id number] Apr, [facility] [place] [facility] [address] [facility] [id number] [address]- 6865 Apr, [facility] [place] [facility] [address] [facility] [id number] [address]- 9015 Apr, [facility] [address] [facility] [id number], [place] [id number] Apr, [facility] [place] [facility] [address] [facility] [id number][place] [address]- 8581 Apr, [facility] [address] [facility] [id number], [place] [id number] Apr, [facility] [place] [facility] [address] [facility] [id number] [address]- 7841 Apr, [facility] [address] [facility] [id number] [place] [id number] Apr, [facility] [place] [facility] [address] [facility] [id number] [place] [address]- 6469 Apr, [facility] [address] [facility] [id number] [place] [id number] Apr, [facility] [place] [facility] [address] [facility] [id number], [place] [address]- 0821 Apr, [facility] [address] [facility] [id number] [place] 345488267 Apr, [facility] [place] [facility] [address] [id number], [place] [address]- 9573 Apr, [facility] [address] [facility] [id number], [place] 393715701 Apr, [facility] [place] [facility] [address]00565100[place], [place] [address]- 7436 Apr, [facility] [address] [facility] [id number], [place] 676377578 Mar, [facility] [place] [facility] [address] [facility] [id number][place] [address]- 2159 Mar, [facility] [address] [id number], [place] [id number] Mar, [facility] [address] [facility] [id number], [place] 177214978 Mar, [facility] [place] [facility] [address] [facility] [id number] [address]- 7347 Mar, [facility] [place] [facility] [address] [facility] [id number][place] [address]- 5580 Mar, [facility] [address] [facility] [id number], [place] 920148586 Mar, [facility] [place] [facility] [address] [facility] [id number], [place] [address]- 9026 Mar, [facility] [address] [id number] [place] 135484565 Mar, [facility] [place] [facility] [address] [id number] [place] [address]- 5659 Mar, [facility] [address] [id number] [place] 479640584 Mar, [facility] [place] [facility] [address] [facility] [id number] [place] [address]- 3794 Mar, [facility] [address] [id number] [place] 195844334 Mar, [facility] [place] [facility] [address] [facility] [id number] [place] [address]- 6507 Mar, [facility] [address] [facility] [id number] [place] 201983167 Mar, [facility] [place] [facility] [address] [address]- 4848 Mar, [facility] [address] [facility] [id number] [place] 017302545 Mar, [facility] [place] [facility] [address] [facility] [id number] [place] [address]- 4897 Mar, [facility] [address] [facility] [id number] [place] [id number] Mar, [facility] [place] [facility] [address] [facility] [id number] [place] [address]- 6733 Mar, [facility] [address] [id number] [place] [id number] Feb, [facility] [place] [facility] [address] [facility] [id number] [place] [address]- 9701 Feb, [facility] [address] [id number] [place] 115624104 Feb, [facility] [place] [facility] [address] [facility] [id number] [place] 22589912- 5744 Feb, [facility] [address] [id number] [place] [id number] Feb, [facility] [place] [facility] [address] [id number] [place] [address]- 8674 Feb, [facility] [address] [id number] [place] 243591902 Feb, [facility] [place] [facility] [address] [id number] [place] [address]- 0125 Feb, [facility] [address] [id number] [place] 554525917 Feb, [facility] [place] [facility] [address] [id number] [place] [address]- 7358 Feb, [facility] [address] [id number] [place] 424799193 Feb, [facility] [place] [facility] [address] [facility] [id number] [place] [address]- 4404 Feb, [facility] [address] [id number] [place] 479746266 Feb, [facility] [place] [facility] [address] [facility] [id number] [place] [address]- 8659 Feb, [facility] [address] [id number] [place] 584116540 Feb, [facility] [place] [facility] [address] [facility] [id number] [place] [address]- 6752 Feb, [facility] [address] [id number] [place] 416696547 Feb, [facility] [place] [facility] [address] [facility] [id number] [place] [address]- 2880 Feb, [facility] [address] [id number] [place] 250455706 Feb, [facility] [address] [id number] [place] 949222233 Feb, [facility] [place] [facility] [address] [facility] [id number] [place] [address]- 6694 Feb, [facility] [place] [facility] [address] [facility] [id number] [place] [address]- 5241 Feb, [facility] [address] [id number] [place] 232475634 Feb, [facility] [place] [facility] [address] [id number] [place] [address]- 2025 Feb, [facility] [address] [id number] [place] [id number] Feb, [facility] [place] [facility] [address] [id number] [place] [address]- 8660 Feb, [facility] [address] [id number] [place] 984173610 Feb, [facility] [place] [facility] [address] [id number] [place] [address]- 8478 Feb, [facility] [address] [id number] [place] 387293572 Jan, [facility] [place] [facility] [address] [id number] [place] [address]- 0100 Jan, [facility] [place] [facility] [address] [id number] [place] [address]- 5829 Jan, [facility] [place] [facility] [address] [facility] [id number] [place] [address]- 1072 Jan, [facility] [place] [facility] [address] [facility] [id number] [place] [address]- 5363 Jan, [facility] [place] [facility] [address] [id number] [place] [address]- 6797 Jan, [facility] [address] [id number] [place] 570434491 Jan, [facility] [place] [facility] [address] [id number] [place] [address]- 9934 Jan, [facility] [place] [facility] [address] [facility] [id number] [place] 95196309- 9379 Jan, [facility] [place] [facility] [address] [id number] [place] [address]- 5556 Jan, [facility] [address] [id number] [place] 175888790 Jan, [facility] [address] [id number] [place] 222808471 Jan, [facility] [place] [facility] [address] [id number] [place] [address]- 5106 Jan, [facility] [place] [facility] [address] [id number] [place] [address]- 6756 Jan, [facility] [address] [id number] [place] [id number] Jan, [facility] [address] [id number] [place] 058653776 Jan, [facility] [place] [facility] [address] [facility] [id number] [place] [address]- 3096 Jan, [facility] [place] [facility] [address] [facility] [id number] [place] [address]- 2067 Jan, [facility] [place] [facility] [address] [facility] [id number], [place] [address]- 5620 Jan, [facility] [address] [facility] [id number] [place] 675980605 December, [facility] [place] [facility] [address] [facility] [id number], [place] [address]- 7476 December, [facility] [place] [facility] [address] [facility] [id number][place] [address]- 6794 December, [facility] [address] [id number], [place] 259513336 December, [facility] [place] [facility] [address] [id number] [place] [address]- 2707 December, [facility] [address] [id number] [place] [id number] December, [facility] [place] [facility] [address] [facility] [id number] [place] [address]- 0846 December, [facility] [address] [facility] [id number], [place] 836784527 December, [facility] [place] [facility] [address] [facility] [id number] [address]- 8096 December, [facility] [address] [facility] [id number], [place] 967876514 Nov, [facility] [place] [facility] [address] [facility] [id number] [place] [address]- 2446 Nov, [facility] [address] [facility] [id number], [place] [id number] Nov, [facility] [place] [facility] [address] [facility] [id number], [place] [address]- 4595 Nov, [facility] [place] [facility] [address] [facility] [id number] [place] [address]- 5827 Nov, [facility] [place] [facility] [address] [facility] [id number][place] [address]- 3638 Nov, [facility] [place] [facility] [address]00565100[place], [place] [address]- 8523 Oct, [facility] [id number], [place] 082928627 Oct, [facility] [place] [facility] [address]00565100[place], [place] [address]- 0101 Oct, [facility] [id number], [place] 637447872 Oct, [facility] [place] [facility] [address] [id number], [place] [address]- 0951 Oct, [facility] [address] [facility] [id number], [place] 690357982 Sep, [facility] [place] [facility] [address] [facility] [id number], [place] [address]- 0412 Sep, [facility] [address] [facility] [id number], [place] 665989240 Aug, [facility] [place] [facility] [address] [facility] [id number], [place] [address]- 1639 Aug, [facility] [address] [facility] [id number], [place] 743437242 Aug, [facility] [place] [facility] [address] [facility] [id number] [place] [address]- 9173 Aug, [facility] [place] [facility] [address] [facility] [id number] [address]- 9004 Aug, [facility] [address] [facility] [id number] [place] 506536671 Aug, [facility] [place] [facility] [address] [facility] [id number], [place] [address]- 6451 Aug, [facility] [place] [facility] [address] [facility] [id number] [place] [address]- 8008 Aug, [facility] [address] [facility] [id number] [place] [id number] Aug, [facility] [place] [facility] [address]00565100[place], [place] [address]- 2714 Aug, [facility] [id number], [place] [id number] Jul, [facility] [place] [facility] [address] [facility] [id number][place] [address]- 0842 Jul, [facility] [address] [facility] [id number], [place] 478875054 Jul, [facility] [place] [facility] [address] [facility] [id number], [place] [address]- 4958 Jul, [facility] [address] [facility] [id number], [place] 475857920 Jul, [facility] [place] [facility] [address] [facility] [id number], [place] [address]- 4369 Jul, [facility] [address] [facility] [id number], [place] 685970793 Jul, [facility] [place] [facility] [address] [facility] [id number] [address]- 4229 Jul, [facility] [address] [facility] [id number] [place] 812817072 Jun, [facility] [place] [facility] [address] [facility] [id number], [place] [address]- 1726 Jun, [facility] [address] [id number] [place] 138794694 Jun, [facility] [address] [facility] [id number], [place] [address]- 2638 Jun, [facility] [address] [facility] [id number], [place] [address] 2540 Jun, [facility] [address] [facility] [id number][place] [address]- 4536 Jun, [facility] [address] [id number] [place] 764513287 Apr, [facility] [address] [id number] [place] 978714594 Mar, [facility] [address] [id number] [place] 159203691 Mar, [facility] [address] [id number] [place] 920336477 Feb, [facility] [address] [id number] [place] 627671614 Feb, [facility] [address] [id number] [place] 291145829 Feb, [facility] [address] [id number] [place] 355136701 December, [facility] [address] [id number] [place] 025075197 December, [facility] [address] [facility] [id number], [place] [address]- 2546 December, [facility] [address] [id number] [place] 755837603 December, [facility] [address] [id number] [place] 062005590 December, [facility] [address] [id number] [place] 296898758 Nov, [facility] [address] [id number] [place] 329398350 Nov, [facility] [address] [id number] [place] 160632079 Nov, [facility] [address] [id number] [place] 373917657 Oct, [facility] [address] [id number] [place] 734932708 Sep, [facility] [address] [id number] [place] 407132051 Aug, [facility] [address] [facility] [id number][place] [address]- 4676 Aug, [facility] [address] [id number] [place] 708888949 Aug, [facility] [address] [id number] [place] 016981734 Jul, [facility] [place] [facility] [address]00565100[place] [address] Jul, [facility] [address] [id number][place] [id number] Jul, [facility] [address] [address] Jul, [facility] [address] [facility] [id number][place] [id number] Jun, [facility] [address] [address] Jun, [facility] [address] [facility] [id number][place] [id number] May, [facility] [address] [facility] [id number], [place] [address] May, [facility] [address] [id number][place] [id number] May, [facility] [address] [facility] [id number], [place] [address] May, [facility] [address] [id number][place] [id number] Apr, [facility] [address] [id number][place] [id number] Apr, [facility] [place] [address] [id number] [place] [id number] Mar, [facility] [place] [address] [id number] [place] [id number] Mar, [facility] [place] [address] [id number] [place] [id number] Feb, [facility] [place] [address] [id number] [place] [id number] Feb, [facility] [place] [address] [id number] [place] [id number] Jan, [facility] [place] [address] [id number] [place] [id number] Jan, [facility] [address] [id number] [place] [id number] Jan, [facility] [address] [id number] [place] [id number] Jan, [facility] [address] [id number] [place] [id number] December, [facility] [address] [id number] [place] [id number] December, [facility] [address] [facility] [id number], [place] [address] Nov, [facility] [address] [id number] [place] [id number] Nov, [facility] [address] [id number] [place] [id number] Nov, [facility] [address] [id number] [place] [id number] Nov, [facility] [address] [id number] [place] [id number] Nov, [facility] [address] [facility] [id number], [place] [address] Oct, [facility] [address] [facility] [id number], [place] [address] Oct, [facility] [address] [id number][place] [id number] Oct, [facility] [address] [id number] [place] [id number] Oct, [facility] [place] [address] [id number] [place] [address] Oct, [facility] [place] [address] [id number] [place] [address] Oct, [facility] [place] [address] [id number] [place] [id number] Oct, [facility] [place] [address] [id number] [place] [id number] Oct, [facility] [place] [address] [id number] [place] [id number] Oct, [facility] [address] [id number], [place] [address] Oct, [facility] [address] [id number] [place] [id number] Sep, [facility] [address] [id number] [place] [id number] Sep, [facility] [address] [id number] [place] [id number] Aug, [facility] [address] [id number] [place] [id number] Aug, [facility] [address], [place] [address] Jul, [facility] [address] [id number], [place] [address] Jul, [facility] [address] [id number], [place] [address] Jul, [facility] [id number] [place] [address] Jul, [facility] [id number], [place] [address] Jul, [facility] [id number] [place] [address] Jul, [facility] [address] [id number], [place] [address] Jul, [facility] [id number], [place] [address] Jul, [facility] [address] [id number], [place] [address] Jul, [facility] [id number] [address] Jul, [facility] [id number], [place] [address] Jul, [facility] [id number], [place] [address] Jul, [facility] [id number], [place] [address] Jul, [facility] [address] [id number], [place] [address] Jul, IMMUNIZATIONS No Known Immunizations SOCIAL HISTORY Never Assessed REASON FOR VISIT Waiting for call back PLAN OF CARE VITAL SIGNS MEDICATIONS Unknown Medications RESULTS No Results PROCEDURES No Known procedures INSTRUCTIONS MEDICATIONS ADMINISTERED No Known Medications MEDICAL (GENERAL) HISTORY Type Description Date Medical History peripheral vascular disease s/p angioplasty w/ stent R leg Medical History hypertension Medical 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 Secondary to ATN from 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 Medical History 05/26/17 noted, snf has ended and they feel he is [...] [facility] Surgical History amputation, toe-right third toe ([facility]) 2013 Surgical History Right eye retinal eye repair ([facility]) 09/2014 Surgical History heart cath with [...]
--- OUTSIDE RECORDS SUMMARY | 2018-06-20 10:05 | XMS REPORT ---
Author Author TOMAS CROCKER [facility] Address [address] [place] [address] Care Team Providers Care Bakelite Molder Name Role Phone TOMAS CROCKER Unavailable PROBLEMS Type Condition ICD9-CM Code DUL35-TO Code Onset Dates Condition Status SNOMED Code Problem S/P coronary artery stent placement Z95.5 Active 141050109 Problem Type 2 diabetes mellitus with diabetic peripheral angiopathy without gangrene E11.51 Active 463478063 Problem Depression F32.9 Active 24973259 Problem Type 2 diabetes mellitus with diabetic neuropathy E11.40 Active 70308217 Problem Hyperlipidemia, unspecified hyperlipidemia E78.5 Active 01169682 Problem 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 Active 4747999631222 Problem Peripheral vascular disease I73.9 Active 240364395 Problem Chronic obstructive pulmonary disease, unspecified COPD type J44.9 Active 65238517 Problem Osteomyelitis of right foot, unspecified chronicity M86.9 Active 67421155 Problem CKD (chronic kidney disease) stage 3, GFR 30-59 ml/min N18.3 Active 589450443 Problem Type 2 diabetes mellitus with diabetic retinopathy, macular edema presence unspecified, with unspecified retinopathy severity E11.319 Active 80108761 Problem GERD without esophagitis K21.9 Active 831769337 Problem Bilateral low back pain without sciatica M54.5 Active 031914155 Problem Mixed hyperlipidemia E78.2 Active 318856852 Problem Frequent falls R29.6 Active 082222742 Problem Chronic kidney disease, unspecified N18.9 Active 620629263 Problem Other chronic pain G89.29 Active 59866504 Problem Chronic diarrhea K52.9 Active 359299787 Problem Hypercholesterolemia E78.0 Active 12305737 Problem 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 Active 927371167 Problem 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 Active 919249224 Problem Obesity (BMI 30.0-34.9) E66.9 Active 632197059731187 Problem Comprehensive diabetic foot examination, type 2 DM, encounter for E11.9 Active 92921677 Problem Uses walker Z99.89 Active 942446189 Problem Aphasia R47.01 Active 76059816 Problem Insulin long-term use Z79.4 Active 042436677 Problem Fatigue, unspecified type R53.83 Active 24258027 Problem Type 2 diabetes mellitus with foot ulcer E11.621 Active 530601235 Problem Pain in left shoulder M25.512 Active 37761555 Problem Type 2 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 Active 209564209 Problem Diabetes type 2, uncontrolled E11.65 Active 664215858 Problem Personal history of carotid stenosis Z86.79 Active 682813398 Problem Essential hypertension I10 Active 62759510 Problem CKD (chronic kidney disease), stage 3 (moderate) N18.3 Active 940394718 Problem Chronic pain syndrome G89.4 Active 563469727 Problem High risk medication use Z79.899 Active 353058264 ALLERGIES No Known Allergies ENCOUNTERS Encounter Location Date Diagnosis [address] [id number] Oct, [address] [id number] Oct, [address] [id number] Oct, Other chronic pain G89.[address] [id number] Sep, Other chronic pain G89.[address] [id number] Aug, CKD (chronic kidney disease), stage 3 (moderate) N18.3 ; Anemia, unspecified type D64.9 and Dilated pore of Ly L70.[address] [id number] Aug, Other chronic pain G89.29 ; Pain in left shoulder M25.512 ; High risk medication use Z79.899 ; Uses walker Z99.89 ; Diabetes type 2, uncontrolled E11.65 and Depression F32.[address], [place] [id number] Aug, Chronic diarrhea K52.9 [facility] [id number] [place] [address] [id number] Aug, Chronic diarrhea K52.9 ; Type 2 [...] Essential hypertension I10 [facility] [id number] [place] [address] [id number] Aug, [address] [id number] Jul, Diabetes type 2, uncontrolled E11.65 [address] [address] [id number] [place] [address] [id number] Jul, Diabetes type 2, uncontrolled E11.65 ; Type 2 diabetes mellitus with diabetic neuropathy E11.40 ; Insulin long-term use Z79.4 and Chronic obstructive pulmonary disease, unspecified COPD type J44.9 [address] [address] [id number] [place] [address] [id number] Jun, [facility] [id number] [place] [address] [id number] Jun, Essential hypertension I10 [address] [place] [address] [id number] Jun, Essential hypertension I10 [facility] [id number] [place] [address] [id number] Jun, Type 2 diabetes mellitus with diabetic neuropathy E11.40 ; Type 2 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 ; S/P coronary artery stent placement Z95.5 ; Obesity (BMI 30.0-34.9) E66.9 ; Mixed hyperlipidemia E78.2 ; Frequent falls R29.6 ; Chronic obstructive pulmonary disease, unspecified COPD type J44.9 ; Essential hypertension I10 ; Insulin long-term use Z79.4 and High risk medication use Z79.899 [address] [place] [address] [id number] May, Diarrhea, unspecified type R19.7 ; Type 2 diabetes mellitus with diabetic neuropathy E11.40 ; Chronic obstructive pulmonary disease, unspecified COPD type J44.9 ; S/P coronary artery stent placement Z95.5 ; High risk medication use Z79.899 ; Essential hypertension I10 ; Encounter for administration of vaccine Z23 and Encounter for immunization Z23 [address] [id number] [id number] May, Chronic obstructive pulmonary disease, unspecified COPD type J44.9 [address] [place] [address] [id number] May, Type 2 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 ; Encounter for immunization Z23 ; Needs flu shot Z23 ; Comprehensive diabetic foot examination, type 2 DM, encounter for E11.9 and Obesity (BMI 30.0-34.9) E66.9 [address] [place] [address] [id number] May, [address] [place] [address] [id number] Apr, [id number] [place] [address] [id number] Apr, Essential hypertension I10 and Aphasia R47.[address] [place] [address] [id number] Apr, [id number] [place] [address] [id number] Apr, Type 2 diabetes mellitus with diabetic neuropathy E11.40 ; Frequent falls R29.6 ; Essential hypertension I10 ; S/P coronary artery stent placement Z95.5 ; High risk medication use Z79.899 ; Hyperlipidemia, unspecified hyperlipidemia E78.5 ; CKD (chronic kidney disease), stage 3 (moderate) N18.3 ; Pain in left shoulder M25.512 and Chronic obstructive pulmonary disease, unspecified COPD type J44.[address] [id number][place] [id number] Mar, [address] [id number] [place] [address] [id number] Mar, Type 2 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 ; Leg wound, left, initial encounter S81.802A ; Hx of shoulder surgery Z98.890 ; Acute pain of left shoulder M25.512 and Fall, initial encounter W19.XXXA [facility] [place] [id number] [place] [address] [id number] Feb, Follow-up exam Z09 ; Hx of shoulder surgery Z98.890 ; Acute pain of left shoulder M25.512 ; Essential hypertension I10 and Leg wound, left, initial encounter S81.802A [facility] [place] [id number] [place] [address] [id number] Feb, [facility] [id number] [place] [address] [id number] Feb, [facility] [id number] [place] [address] [id number] Feb, Chronic obstructive pulmonary disease, unspecified COPD type J44.9 [facility] [place] [id number] [place] [address] [id number] Feb, [facility] [place] [id number] [place] [address] [id number] Jan, Generalized weakness R53.1 ; Exertional shortness of breath R06.02 and Fungal rash of trunk B36.9 [facility] [id number] [place] [address] [id number] Jan, [facility] [place] [place] [address] [id number] Jan, [facility] [place] [id number] [place] [address] [id number] Jan, [facility] [place] [id number] [place] [address] [id number] Jan, [facility] [id number] [place] [address] [id number] December, High risk medication use Z79.899 [facility] [id number] [place] [address] [id number] December, Type 2 diabetes mellitus with diabetic neuropathy E11.[address] [id number][place] [id number] December, High risk medication use Z79.899 [address] [place] [address] [id number] Nov, Diabetes type 2, uncontrolled E11.65 [address] [place] [address] [id number] Nov, Medicare annual wellness visit, initial Z00.00 ; Bilateral low back pain without sciatica M54.5 ; Pain in left shoulder M25.512 ; Chronic pain syndrome G89.4 ; Type 2 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 ; High risk medication use Z79.899 and Encounter for immunization Z23 [address] [place] [address] [id number] Nov, Type 2 diabetes mellitus with diabetic neuropathy E11.40 ; 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 and CKD (chronic kidney disease), stage 3 (moderate) N18.3 [address] [place] [address] [id number] Oct, Type 2 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 ; Chronic pain syndrome G89.4 ; Chronic obstructive pulmonary disease, unspecified COPD type J44.9 ; Chronic kidney disease, unspecified N18.9 and Rash R21 [address] [id number] [id number] Oct, Type 2 diabetes mellitus with diabetic neuropathy E11.[address] [id number][place] [id number] Oct, Rash R21 and Impetigo L01.[address] [id number], [place] [id number] Oct, Chronic pain syndrome G89.[address] [id number][place] [id number] Oct, [address] [place] [address] [id number] Sep, Sebaceous cyst L72.3 [address] [address] [id number] [place] [address] [id number] 16 Sep, 2016 Sebaceous cyst L72.3 [facility] [id number] [place] [address] [id number] Sep, Chronic pain syndrome G89.4 ; Pain in left shoulder M25.512 and Effusion of olecranon bursa, left M25.422 [facility] [id number] [place] [address] 052241[address]39 Aug, [facility] [id number] [place] [address] [id number] Aug, [facility] [id number] [place] [address] [id number] Aug, Mixed hyperlipidemia E78.2 and Chronic kidney disease, unspecified N18.9 [address] [id number] [place] [address] [id number] Jul, Type 2 diabetes mellitus with diabetic neuropathy E11.40 ; Essential hypertension I10 and S/P coronary artery stent placement Z95.5 [address] [address] [id number] [place] [address] [id number] Jul, 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 [address] [id number] [place] [address] [id number] Jul, Diabetes type 2, uncontrolled E11.65 ; Essential hypertension I10 and 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 [facility] [address] [place] [address] [id number] Jul, [id number] [place] [address] [id number] Jul, [facility] [address] [place] [address] [id number] Jul, [address] [id number] Jul, Chronic obstructive pulmonary disease, unspecified COPD type J44.9 [address] [place] [address] [id number] Jun, CKD (chronic kidney disease), stage 3 (moderate) N18.3 and Anemia, unspecified type D64.9 [address] [place] [address] [id number] Jun, Type 2 diabetes mellitus with diabetic neuropathy E11.40 ; Decreased GFR R94.4 ; CKD (chronic kidney disease), stage 3 (moderate) N18.3 and Decreased hemoglobin R71.0 [id number] [place] [address] [id number] Jun, CKD (chronic kidney disease), stage 3 (moderate) N18.3 and Anemia, unspecified type D64.9 [address] [id number] [place] [address] [id number] Jun, Type 2 diabetes mellitus with diabetic neuropathy E11.40 ; Decreased GFR R94.4 and CKD (chronic kidney disease), stage 3 (moderate) N18.3 [address] [id number] [place] [address] [id number] Jun, Type 2 diabetes mellitus with diabetic neuropathy E11.40 and Essential hypertension I10 [address] [id number] [place] [address] [id number] Jun, [id number] [place] [address] [id number] Jun, [address] [id number] Jun, Type 2 diabetes mellitus with diabetic neuropathy E11.40 ; S/P coronary artery stent placement Z95.5 ; Chronic obstructive pulmonary disease, unspecified COPD type J44.9 ; Essential hypertension I10 ; GERD without esophagitis K21.9 ; Peripheral vascular disease I73.9 ; Mixed hyperlipidemia E78.2 and Hospital discharge follow-up Z09 [address] [place] [address] [id number] Jun, [id number] [place] [address] [id number] May, Depression F32.9 and Hyperlipidemia, unspecified hyperlipidemia E78.5 [facility] [address] [address] May, [id number] [place] [address] [id number] May, [address] [id number] May, Essential hypertension I10 ; Chronic pain syndrome G89.4 ; Pain in left shoulder M25.512 ; High risk medication use Z79.899 ; Chronic obstructive pulmonary disease, unspecified COPD type J44.9 ; S/P coronary artery stent placement Z95.5 ; Personal history of carotid stenosis Z86.79 ; Hyperlipidemia, unspecified hyperlipidemia E78.5 ; Decreased GFR R94.4 and Type 2 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 [address] [place] [address] [id number] May, Hemoglobin decreased R71.0 and Decreased GFR R94.4 [address] [id number] [place] [address] [id number] May, Hemoglobin decreased R71.0 and Decreased GFR R94.4 [address] [id number] [place] [address] [id number] May, [id number] [place] [address] [id number] May, [address] [place] [address] [id number] Apr, [address] [address] [id number] [place] [address] [id number] Apr, Type 2 diabetes mellitus with foot [...] unspecified hyperlipidemia E78.5 and Essential hypertension I10 [address] [place] [address] [id number] Apr, [address] [place] [address] [id number] Mar, [address] [id number] Mar, [facility] [address], [place] [address] Mar, [facility] [id number], [place] [id number] Feb, [facility] [id number] [place] [address] [id number] Feb, [facility] [id number] [place] [address] [id number] Feb, [facility] [id number] [place] [address] [id number] Jan, Type 2 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 ; Hypercholesterolemia E78.0 ; Chronic pain syndrome G89.4 ; Pain in left shoulder M25.512 and High risk medication use Z79.899 [facility] [id number] [place] [address] [id number] Jan, [facility] [id number] [place] [address] [id number] Jan, [facility] [id number] [place] [address] [id number] December, [facility] [id number] [place] [address] [id number] December, [facility] [address] [address] December, Diabetes type 2, uncontrolled E11.65 ; Type 2 diabetes mellitus with diabetic neuropathy E11.40 ; Peripheral vascular disease I73.9 ; 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 and 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 [facility] [id number], [place] [id number] Nov, [facility] [id number], [place] [id number] Nov, [facility] [id number], [place] [id number] Nov, [facility] [address] [id number] [id number] Nov, Right hip pain M25.551 [facility] [address] [facility] [id number], [place] [address] Nov, [facility] [address] [facility] [id number] [place] [address]- [address] Nov, [facility] [id number] [place] [address] [id number] Nov, Diabetes with neurological manifestations, type II or unspecified type, 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.60 [facility] [id number] [place] [address] [id number] Nov, [facility] [address] [id number] [place] [address] [id number] Nov, [facility] [place] [address] [id number] [place] [address] [id number] Oct, Diabetes type 2, uncontrolled E11.65 ; Type 2 diabetes mellitus with diabetic neuropathy, unspecified E11.40 and Low back pain M54.5 [facility] [address] [id number] [place] [address] [id number] Oct, [facility] [address] [id number] [place] [address] [id number] Oct, [facility] [id number] [place] [address] [id number] Oct, [facility] [address] [id number] [place] [address] [id number] Sep, [facility] [id number] [place] [address] [id number] Sep, [facility] [address]100[place], [place] [address] Sep, [facility] [address] [id number] [place] [address] [id number] Sep, [facility] [address] [id number] [place] [address] [id number] Sep, [facility] [id number] [place] [address] [id number] Aug, 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 [facility] [address] [id number], [place] [id number] Aug, [facility] [address] [id number], [place] [id number] Aug, Allergic rhinitis due to pollen J30.1 [facility] [address] [facility] [address] [id number][place] [id number] Jul, [facility] [id number], [place] [id number] Jul, [facility] [id number] [place] [address] [id number] Jul, [facility] [id number] [place] [address] [id number] Jun, [facility] [id number] [place] [address] [id number] Jun, Thumb tendonitis M77.8 and Ringing in ear, bilateral H93.13 [facility] [address] [place] [address] [id number], [place] [id number] Jun, [facility] [address]005[address] [id number] May, [place] [address] [address] May, [place] [id number] [place] [address]- [address] May, Pre-op evaluation Z01.818 ; Encounter for immunization Z23 ; Type 2 diabetes mellitus with diabetic peripheral angiopathy without gangrene E11.51 ; Insulin long-term use Z79.4 ; Type 2 diabetes mellitus with foot ulcer E11.621 ; Peripheral vascular disease I73.9 ; 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 ; S/P coronary artery stent placement Z95.5 ; Osteomyelitis of right foot, unspecified chronicity M86.9 and Chronic obstructive pulmonary disease, unspecified COPD type J44.9 [facility] [id number] [place] [address]- 1124 May, [facility] [id number] [place] [address] [id number] May, [facility] [id number] [place] [address] [id number] May, Diabetes type 2, uncontrolled E11.65 ; Encounter for immunization Z23 ; Osteopenia M85.80 and Allergic rhinitis due to pollen J30.1 [facility] [id number] [place] [address] [id number] May, Lumbago 724.2 [place] [address] [id number] Apr, [facility] [id number] [place] [address] [id number] Apr, [facility] [id number] [place] [address] [id number] Apr, [facility] [id number] [place] [address] [id number] Apr, [facility] [address] [address] Mar, [facility] [id number] [place] [address] [id number] Mar, [facility] [address] [id number] Mar, [facility] [id number] [place] [address] [id number] Mar, [facility] [id number] [place] [address] [id number] Mar, [facility] [id number] [place] [address] 30462- 2546 Mar, [facility] [id number] [place] [address] [id number] Mar, [facility] [address] [id number] Mar, Diabetes with neurological manifestations, type II or unspecified type, 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.60 and Severe obesity (BMI 35.0-35.9 with comorbidity) 278.01 [facility] [place] [address] [id number] Mar, [facility] [address], [place] [address]- [address] Mar, [facility] [address]100[place], [place] [address] Feb, [facility] [place] [id number], [place] [id number] Feb, [facility] [id number], [place] [id number] Feb, [facility] [place] [id number], [place] [id number] Feb, Diabetes with neurological manifestations, type II or unspecified type, 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.60 [facility] [place] [id number], [place] [id number] Feb, [facility] [id number] [address] Feb, [facility] [id number][place] [id number] Feb, [facility] [id number], [place] [id number] Feb, Follow up V67.9 ; Diabetes with neurological manifestations, type II or unspecified type, 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.60 and Congestive heart failure 428.0 [facility] [id number], [place] [id number] Jan, [facility] [id number], [place] [id number] Jan, [facility] [address] [id number][place] [id number] Jan, [facility] [id number], [place] [id number] December, Otitis media with effusion 381.4 ; Left arm numbness 782.0 and Osteoporosis 733.00 [facility] [address] [id number], [place] 215010079 December, [facility] [address] [id number] [address]1320 Nov, [facility] [address] [id number], [place] [address]689823 Nov, Serous otitis media 381.4 and Lumbago 724.2 [facility] [place] [facility] [id number], [place] [address] 14 Nov, 2014 [facility] [place] [facility] [address]00565100[place], [place] [address]- [address] Nov, [facility] [id number], [place] 775[place]3963 Oct, [facility] [place] [facility] [address]00565100[place], [place] [address] Oct, [facility] [id number], [place] [id number] Oct, [facility] [place] [facility] [address]00565100[place], [place] [address] Oct, [facility] [id number], [place] 055295221 Oct, [facility] [place] [facility] [id number], [place] [address]- 5146 Oct, [facility] [place] [facility] [id number], [place] [address]- 2606 Sep, [facility] [place] [facility] [id number], [place] [address] Sep, [facility] [address] [id number], [place] [id number] Sep, [facility] [place] [facility] [address] [id number], [place] [address]- [address]756 Sep, [facility] [address] [id number], [place] [address]00072355 Aug, [facility] [place] [facility] [id number], [place] [address]- [address] Aug, [facility] [address] [id number], [place] 267692418 Aug, [facility] [place] [facility] [address] [facility] [id number], [place] [address]- [address] Aug, [facility] [address] [id number] [id number] Jul, [facility] [place] [facility] [address] [facility] [id number], [place] [address]- 6[address] Jul, [facility] [address] [id number] [place] [id number] Jul, [facility] [place] [facility] [address] [facility] [id number] [place] [address]- 9436 Jul, [facility] [address] [id number] [place] [id number] Jul, [facility] [place] [facility] [address] [facility] [id number], [place] [address] Jul, [facility] [address] [facility] [id number], [place] 170064173 Jun, [facility] [place] [facility] [address] [facility] [id number], [place] [address]- 4172 Jun, [facility] [address] [facility] [id number], [place] [id number] May, [facility] [place] [facility] [address] [facility] [id number], [place] [address]- 1026 May, [facility] [address] [facility] [id number], [place] 589766482 May, [facility] [place] [facility] [address] [facility] [id number], [place] [address]- 1696 May, [facility] [address] [id number], [place] [id number] May, [facility] [place] [facility] [address] [facility] [id number], [place] [address] 2546 May, [facility] [address] [id number], [place] 638701966 May, [facility] [address] [id number], [place] 229737155 May, [facility] [place] [facility] [address] [facility] [id number], [place] [address]- 7502 May, [facility] [place] [facility] [address] [facility] [id number], [place] [address]- 6991 May, [facility] [address] [facility] [id number], [place] 899007561 May, [facility] [place] [facility] [address] [facility] [id number] [place] [address]- 8008 May, [facility] [place] [facility] [address] [facility] [id number], [place] [address]- 3079 Apr, [facility] [address] [id number], [place] 654274037 Apr, [facility] [place] [facility] [address] [facility] [id number], [place] [address]- 4943 Apr, [facility] [address] [id number], [place] 755134098 Apr, [facility] [address] [facility] [id number], [place] [id number] Apr, [facility] [place] [facility] [address] [facility] [id number], [place] [address]- 9186 Apr, [facility] [place] [facility] [address] [facility] [id number], [place] [address]- 1194 Apr, [facility] [address] [id number], [place] [id number] Apr, [facility] [place] [facility] [address] [facility] [id number], [place] [address]- 7093 Apr, [facility] [address] [facility] [id number], [place] [id number] Apr, [facility] [place] [facility] [address] [facility] [id number], [place] [address]- 2958 Apr, [facility] [address] [facility] [id number], [place] 045068227 Apr, [facility] [place] [facility] [address] [facility] [id number], [place] [address]- 4699 Apr, [facility] [address] [id number] [place] [id number] Apr, [facility] [place] [facility] [address] [facility] [id number], [place] [address]- 8520 Apr, [facility] [address] [id number] [place] [id number] Apr, [facility] [place] [facility] [address] [facility] [id number], [place] [address]- 2225 Apr, [facility] [address] [id number] [place] [id number] Apr, [facility] [place] [facility] [address] [facility] [id number], [place] [address]- 4472 Apr, [facility] [address] [id number] [place] [id number] Mar, [facility] [place] [facility] [address] [facility] [id number], [place] [address]- 9528 Mar, [facility] [address] [id number], [place] [id number] Mar, [facility] [address] [id number] [place] 711457061 Mar, [facility] [place] [facility] [address] [facility] [id number], [place] [address]- 1285 Mar, [facility] [place] [facility] [address] [facility] [id number], [place] [address]- 2822 Mar, [facility] [address] [id number], [place] 519545498 Mar, [facility] [place] [facility] [address] [id number], [place] [address]- 5272 Mar, [facility] [address] [id number] [place] [id number] Mar, [facility] [place] [facility] [address] [facility] [id number], [place] [address]- 4957 Mar, [facility] [address] [id number] [place] [id number] Mar, [facility] [place] [facility] [address] [id number] [place] [address]- 1242 Mar, [facility] [address] [id number] [place] [id number] Mar, [facility] [place] [facility] [address] [id number] [place] [address]- 8111 Mar, [facility] [address] [id number] [place] 878704551 Mar, [facility] [place] [facility] [address] [id number] [place] [address]- 7072 Mar, [facility] [address] [id number] [place] [id number] Mar, [facility] [place] [facility] [address] [id number] [place] [address]- 2031 Mar, [facility] [address] [id number] [place] [id number] Mar, [facility] [place] [facility] [address] [id number] [place] [address]- 8008 Mar, [facility] [address] [id number] [place] [id number] Feb, [facility] [place] [facility] [address] [facility] [id number], [place] [address]- 8993 Feb, [facility] [address] [id number] [place] [id number] Feb, [facility] [place] [facility] [address] [facility] [id number] [place] [address]- 6383 Feb, [facility] [address] [id number] [place] [id number] Feb, [facility] [place] [facility] [address] [facility] [id number] [place] [address]- 5149 Feb, [facility] [address] [id number] [place] [id number] Feb, [facility] [place] [facility] [address] [id number], [place] [address]- 2972 Feb, [facility] [address] [id number] [place] [id number] Feb, [facility] [place] [facility] [address] [facility] [id number] [place] [address]- 2511 Feb, [facility] [address] [id number] [place] [id number] Feb, [facility] [place] [facility] [address] [id number] [place] [address]- 8743 Feb, [facility] [address] [id number] [place] [id number] Feb, [facility] [place] [facility] [address] [id number] [place] [address]- 3467 Feb, [facility] [address] [id number] [place] [id number] Feb, [facility] [place] [facility] [address] [facility] [id number], [place] [address]- 1903 Feb, [facility] [address] [id number] [place] [id number] Feb, [facility] [place] [facility] [address] [facility] [id number] [place] [address]- 7008 Feb, [facility] [address] [id number] [place] [id number] Feb, [facility] [address] [id number] [place] [id number] Feb, [facility] [place] [facility] [address] [facility] [id number], [place] [address]- 4937 Feb, [facility] [place] [facility] [address] [id number], [place] [address]- 0979 Feb, [facility] [address] [id number] [place] [id number] Feb, [facility] [place] [facility] [address] [facility] [id number] [place] [address]- 6770 Feb, [facility] [address] [id number] [place] [id number] Feb, [facility] [place] [facility] [address] [id number] [place]- 2916 Feb, [facility] [address] [id number] [place] [id number] Feb, [facility] [place] [facility] [address] [facility] [id number] [place] [address]- 0329 Feb, [facility] [address] [id number] [place] [id number] Jan, [facility] [place] [facility] [address] [id number] [place] [address]- 8129 Jan, [facility] [place] [facility] [address] [facility] [id number] [place] [address]- 1233 Jan, [facility] [place] [facility] [address] [facility] [id number] [place] [address]- 9312 Jan, [facility] [place] [facility] [address] [facility] [id number], [place] [address]- 0705 Jan, [facility] [place] [facility] [address] [facility] [id number], [place] [address]- 5524 Jan, [facility] [address] [facility] [id number], [place] [id number] Jan, [facility] [place] [facility] [address] [facility] [id number], [place] [address]- 6618 Jan, [facility] [place] [facility] [address] [facility] [id number], [place] [address]- 1088 Jan, [facility] [place] [facility] [address] [id number], [place] [address]- 0830 Jan, [facility] [address] [id number] [place] [id number] Jan, [facility] [address] [id number] [place] [id number] Jan, [facility] [place] [facility] [address] [facility] [id number], [place] [address]- 0848 Jan, [facility] [address] [id number] [place] [address]- 2836 Jan, [facility] [address] [id number] [place] [id number] Jan, [facility] [address] [id number] [place] [id number] Jan, [facility] [place] [facility] [address] [facility] [id number] [place] [address]- 2446 Jan, [facility] [place] [facility] [address] [id number] [place] [address]- 3066 Jan, [facility] [place] [facility] [address] [facility] [id number] [place] [address]- 8246 Jan, [facility] [address] [facility] [id number] [place] [id number] December, [facility] [place] [facility] [address] [facility] [id number] [place] [address]- 2986 December, [facility] [place] [facility] [address] [facility] [id number], [place] [address]- 5826 December, [facility] [address] [id number] [place] [id number] December, [facility] [place] [facility] [address] [facility] [id number], [place] [address]- 4116 December, [facility] [address] [facility] [id number], [place] 634680779 December, [facility] [place] [facility] [address] [facility] [id number], [place] [address]- 2546 December, [facility] [address] [id number] [place] [id number] December, [facility] [place] [facility] [address] [facility] [id number], [place] [address]- 4266 December, [facility] [address] [id number] [place] [id number] Nov, [facility] [place] [facility] [address] [facility] [id number], [place] [address]- 5099 Nov, [facility] [address] [facility] [id number] [place] [id number] Nov, [facility] [place] [facility] [address] [facility] [id number] [place] [address]- 2320 Nov, [facility] [place] [facility] [address] [facility] [id number] [place] [address]- 6793 Nov, [facility] [place] [facility] [address] [facility] [id number] [place] [address]- 2694 Nov, [facility] [place] [facility] [address] [facility] [id number] [place] [address]- 7548 Oct, [facility] [address] [facility] [id number], [place] [id number] Oct, [facility] [place] [facility] [address] [id number] [place] [address]- 5118 Oct, [facility] [address] [facility] [id number], [place] [id number] Oct, [facility] [place] [facility] [address] [facility] [id number], [place] [address]- 2589 Oct, [facility] [address] [facility] [id number], [place] 390602939 Sep, [facility] [place] [facility] [address] [id number], [place] [address]- 2849 Sep, [facility] [address] [facility] [id number], [place] [id number] Aug, [facility] [place] [facility] [address] [facility] [id number], [place] [address]- 4945 Aug, [facility] [address] [facility] [id number], [place] [id number] Aug, [facility] [place] [facility] [address] [facility] [id number] [place] [address]- 1651 Aug, [facility] [place] [facility] [address] [facility] [id number], [place] [address]- 3418 Aug, [facility] [address] [id number] [place] [id number] Aug, [facility] [place] [facility] [address] [facility] [id number] [place] [address]- 3324 Aug, [facility] [place] [facility] [address] [facility] [id number], [place] [address]- 2546 Aug, [facility] [address] [facility] [id number] [place] [id number] Aug, [facility] [place] [facility] [address] [facility] [id number], [place] [address]- 2883 Aug, [facility] [address] [facility] [id number] [place] [id number] Jul, [facility] [place] [facility] [address] [facility] [id number], [place] [address]- 8256 Jul, [facility] [address] [facility] [id number] [place] [id number] Jul, [facility] [place] [facility] [address] [facility] [id number], [place] [address]- 5056 Jul, [facility] [address] [facility] [id number] [place] [id number] Jul, [facility] [place] [facility] [address] [facility] [id number], [place] [address]- 8956 Jul, [facility] [address] [facility] [id number] [place] [id number] Jul, [facility] [place] [facility] [address] [facility] [id number], [place] [address]- 4136 Jul, [facility] [address] [facility] [id number], [place] 638730873 Jun, [facility] [place] [facility] [address] [facility] [id number], [place] [address]- 3578 Jun, [facility] [address] [facility] [id number], [place] [id number] Jun, [facility] [place] [facility] [address] [facility] [id number], [place] [address]- 6233 Jun, [facility] [place] [facility] [address] [facility] [id number], [place] [address]- 2541 Jun, [facility] [address] [facility] [id number], [place] [address]- 2546 Jun, [facility] [address] [id number] [place] [id number] Apr, [facility] [address] [id number] [place] [id number] Mar, [facility] [address] [id number] [place] [id number] Mar, [facility] [address] [id number] [place] 987227314 Feb, [facility] [address] [id number] [place] 838745090 Feb, [facility] [address] [id number] [place] [id number] Feb, [facility] [address] [id number] [place] [id number] December, [facility] [address] [id number] [place] [id number] December, [facility] [address] [facility] [id number], [place] [address]- 2546 December, [facility] [address] [id number] [place] [id number] December, [facility] [address] [id number] [place] [id number] December, [facility] [address] [id number] [place] [id number] Nov, [facility] [address] [id number] [place] 585221338 Nov, [facility] [address] [id number] [place] [id number] Nov, [facility] [address] [id number] [place] [id number] Oct, [facility] [address] [id number] [place] [id number] Sep, [facility] [address] [id number][place] [id number] Aug, [facility] [address] [facility] [id number], [place] [address] Aug, [facility] [address] [id number][place] [id number] Aug, [facility] [address] [id number][place] [id number] Jul, [facility] [address] [facility] [id number], [place] [address] Jul, [facility] [address] [id number][place] [id number] Jul, [facility] [place] [facility] [address] [facility] [id number], [place] [address] Jul, [facility] [address] [id number], [place] [id number] Jun, [facility] [address] [facility] [id number], [place] [address] Jun, [facility] [address] [id number][place] [id number] May, [facility] [address] [facility] [id number], [place] [id number] May, [facility] [address] [id number], [place] [id number] May, [facility] [address] [facility] [id number], [place] [address] May, [facility] [address] [id number][place] [id number] Apr, [facility] [address] [id number] [place] [id number] Apr, [facility] [address] [id number] [place] [id number] Mar, [facility] [address] [id number] [place] [id number] Mar, [facility] [address] [id number] [place] [id number] Feb, [facility] [address] [id number] [place] [id number] Feb, [facility] [place] [address] [id number] [place] [id number] Jan, [facility] [address] [id number] [place] [id number] Jan, [facility] [address] [id number] [place] [id number] Jan, [facility] [address] [id number] [place] [id number] Jan, [facility] [address] [id number] [place] [id number] December, [facility] [address] [id number] [place] [id number] December, [facility] [address] [facility] [id number], [place] [address] Nov, [facility] [address] [id number] [place] [id number] Nov, [facility] [address] [id number] [place] [id number] Nov, [facility] [address] [id number] [place] [id number] Nov, [facility] [address] [id number] [place] [id number] Nov, [facility] [address] [facility] [id number], [place] [address] Oct, [facility] [address] [facility] [id number], [place] [address] Oct, [facility] [address] [id number] [place] [id number] Oct, [facility] [address] [id number] [place] [id number] Oct, [facility] [address] [id number] [place] [id number] Oct, [facility] [address] [id number] [place] [id number] Oct, [facility] [address] [id number] [place] [id number] Oct, [facility] [address] [id number] [place] [id number] Oct, [facility] [address] [id number] [place] [id number] Oct, [facility] [address] [facility] [id number] [place] [address] Oct, [facility] [address] [id number] [place] [id number] Sep, [facility] [address] [id number] [place] [id number] Sep, [facility] [address] [id number] [place] [id number] Aug, [facility] [address] [id number] [place] [id number] Aug, [facility] [id number] [id number] Jul, [facility] [place] [facility] [address] [id number] [address] Jul, [facility] [place] [facility] [id number], [place] [address] Jul, [facility] [place] [facility] [id number], [place] [address] Jul, [facility] [place] [facility] [id number], [place] [address] Jul, [facility] [place] [facility] [id number], [place] [address] Jul, [facility] [place] [facility] [id number], [place] [address] Jul, [facility] [place] [facility] [id number], [place] [address] Jul, [facility] [place] [facility] [address] [facility] [id number], [place] [address] Jul, [facility] [address] [facility] [id number], [place] [address] Jul, [facility] [address] [facility] [id number], [place] [address] Jul, [facility] [address] [facility] [id number], [place] [address] Jul, [facility] [address] [facility] [id number], [place] [address] Jul, [facility] [id number], [place] [address] Jul, IMMUNIZATIONS No Known Immunizations SOCIAL HISTORY Never Assessed REASON FOR VISIT Sushila Ceron RN PLAN OF CARE Activity Details Follow Up 4 Weeks Reason: VITAL SIGNS Height 69 in 2017-02-26 Weight 242.0 lbs 2017-02-26 Temperature 98.5 degrees Fahrenheit 2017-02-26 Heart Rate 102 bpm 2017-02-26 Respiratory Rate 18 2017-02-26 BMI 35.73 kg/m2 2017-02-26 Blood pressure systolic 120 mmHg 2017-02-26 Blood pressure diastolic 62 mmHg 2017-02-26 MEDICATIONS Medication Instructions Dosage Frequency Start Date End Date Duration Status Symbicort 160-4.5 MCG/ACT INHALE TWO (2) PUFFS BY MOUTH TWICE DAILY ( MORNING AND EVENING). Active Domingo Contour Test - TEST BLOOD SUGAR (4) TIMES DAILY. Active Folic Acid 1 MG Orally Once a day 1 tablet 24h 20 Jul, 2016 Active Hydrocodone-Acetaminophen 7.5-325 MG Orally 4 times a day 1 tablet as needed 6h 24 Jan, 2016 0 Active Calcium + D3 600-200 MG-UNIT Orally 2 times a day 1 tablet 12h Active Omeprazole 20 mg Orally Once a day 1 capsule 24h Active Levemir Flexpen 100 UNIT/ML Subcutaneous 2 times a day 33 units 12h 0 days Active Cetirizine HCl 10 mg Orally Once a day 1 tablet as needed 24h 11 Nov, 2015 Active Aspirin Adult Low Strength 81 MG Orally Once a day 1 tablet 24h Active UltiCare Micro Pen [place] 32G X 4 MM USE TWICE DAILY. Active Victoza 18 MG/3ML INJECT (1.8 MG) ONCE DAILY. Active Triamcinolone Acetonide 0.5 % Externally Twice a day 1 application to affected area 12h 15 Oct, 2016 Active ProAir HFA 90 mcg/actuation Inhalation 4 times a day 2 puffs as needed 6h Active Symbicort 160-4.5 mcg/actuation Inhalation Twice a day (morning and evening) inhale 2 puffs Active Escitalopram Oxalate 10 MG TAKE ONE (1) TABLET BY MOUTH DAILY... Active Lancets - subcutaneously 3 times a day as directed 8h 07 Jun, 2016 Active Blood Glucose Test Strip Test Strips test blood sugar Feb, Active Zyrtec Allergy 10 MG ...TAKE ONE (1) TABLET BY MOUTH DAILY NEEDED... Active Atorvastatin Calcium 40 MG TAKE ONE (1) TABLET BY MOUTH DAILY... Active Walker - Rolator walker with seat and hand brakes Jan, Active Prilosec 20 MG TAKE ONE (1) CAPSULE BY MOUTH ONCE DAILY... Active Lexapro 10 mg Orally Once a day 1 tablet 24h Active Lasix 20 MG TAKE (1/2) TABLET BY MOUTH ONCE DAILY... Active Victoza 18 mg/3ml Subcutaneous Once a day 1.8 mg 24h 30 days Active Megestrol Acetate 40 mg Orally Once a day at HS 1 tablet Active RESULTS No Results PROCEDURES Procedure Date Ordered Result Body Site [facility] VISIT ESTABLISHED PATIENT February 26, 2017 INSTRUCTIONS MEDICATIONS ADMINISTERED No Known Medications MEDICAL [...] by card Medical History 04/06/17 Dr. Neo FU. Asymptomatic no need for heart cath, monitor and will futher investigate if furhter episodes of syncope in the future. Medical History 05/26/17 noted, mcc has ended and they feel he is [...] Surgical History Left eye retinal eye repair ([facility]) 06/2014 Surgical History amputation, toe-right third toe ([facility]) 2013 Surgical History Right eye retinal eye repair ([facility]) 09/2014 Surgical History heart cath [...]
[2018-06-20] MEDS ORDERED: CEPH500C PO (10:06)
[2018-06-20] MEDS ORDERED: ACHD5005 PO (10:06)
--- OUTSIDE RECORDS SUMMARY | 2018-06-20 10:06 | XMS REPORT ---
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 Name Role Phone SATINDER GOOD Unavailable PROBLEMS Type Condition ICD9-CM Code YME41-NE Code Onset Dates Condition Status SNOMED Code Problem S/P coronary artery stent placement Z95.5 Active 399471833 Problem Type 2 diabetes mellitus with diabetic peripheral angiopathy without gangrene E11.51 Active 480620615 Problem Depression F32.9 Active 93550723 Problem Type 2 diabetes mellitus with diabetic neuropathy E11.40 Active 90501284 Problem Hyperlipidemia, unspecified hyperlipidemia E78.5 Active 86527663 Problem Coronary artery disease involving suquamish coronary artery of suquamish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 Active 6964458099846 Problem Peripheral vascular disease I73.9 Active 487795588 Problem Chronic obstructive pulmonary disease, unspecified COPD type J44.9 Active 76572885 Problem Osteomyelitis of right foot, unspecified chronicity M86.9 Active 37233066 Problem CKD (chronic kidney disease) stage 3, GFR 30-59 ml/min N18.3 Active 905209231 Problem Type 2 diabetes mellitus with diabetic retinopathy, macular edema presence unspecified, with unspecified retinopathy severity E11.319 Active 63192887 Problem GERD without esophagitis K21.9 Active 512013677 Problem Bilateral low back pain without sciatica M54.5 Active 551653880 Problem Mixed hyperlipidemia E78.2 Active 615486721 Problem Frequent falls R29.6 Active 441487565 Problem Chronic kidney disease, unspecified N18.9 Active 318186637 Problem Other chronic pain G89.29 Active 52891740 Problem Chronic diarrhea K52.9 Active 863339976 Problem Hypercholesterolemia E78.0 Active 48596028 Problem 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 Active 275417091 Problem 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 Active 770781119 Problem Obesity (BMI 30.0-34.9) E66.9 Active [id number] Problem Comprehensive diabetic foot examination, type 2 DM, encounter for E11.9 Active 66655185 Problem Uses walker Z99.89 Active 150724724 Problem Aphasia R47.01 Active 54556062 Problem Insulin long-term use Z79.4 Active 210679345 Problem Fatigue, unspecified type R53.83 Active 20938959 Problem Type 2 diabetes mellitus with foot ulcer E11.621 Active 069756338 Problem Pain in left shoulder M25.512 Active 66679358 Problem Type 2 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 Active 724711707 Problem Diabetes type 2, uncontrolled E11.65 Active 732006612 Problem Personal history of carotid stenosis Z86.79 Active 511471418 Problem Essential hypertension I10 Active 97975146 Problem CKD (chronic kidney disease), stage 3 (moderate) N18.3 Active 257626075 Problem Chronic pain syndrome G89.4 Active 082761087 Problem High risk medication use Z79.899 Active 235788916 ALLERGIES No Known Allergies ENCOUNTERS Encounter Location Date Diagnosis [address] [id number] Oct, [address] [id number] Oct, [address] [id number] Oct, Other chronic pain G89.[address] [id number] Sep, Other chronic pain G89.[address] [id number] Aug, CKD (chronic kidney disease), stage 3 (moderate) N18.3 ; Anemia, unspecified type D64.9 and Dilated pore of Ly L70.[address] [id number] Aug, Other chronic pain G89.29 ; Pain in left shoulder M25.512 ; High risk medication use Z79.899 ; Uses walker Z99.89 ; Diabetes type 2, uncontrolled E11.65 and Depression F32.9 [address] [place] [address] [id number] Aug, Chronic diarrhea K52.9 [place] [id number] [place] [address] [id number] Aug, Chronic diarrhea K52.9 ; Type 2 diabetes mellitus with diabetic neuropathy E11.40 ; Diabetes type 2, uncontrolled E11.65 ; Insulin long-term use Z79.4 ; Chronic obstructive pulmonary disease, unspecified COPD type J44.9 ; Chronic pain syndrome G89.4 ; Pain in left shoulder M25.512 ; Uses walker Z99.89 ; S/P coronary artery stent placement Z95.5 ; Mixed hyperlipidemia E78.2 and Essential hypertension I10 [place] [id number] [place] [address] [id number] Aug, [place] [id number] [place] [address] [id number] Jul, Diabetes type 2, uncontrolled E11.65 [place] [id number] [place] [address] [id number] Jul, Diabetes type 2, uncontrolled E11.65 ; Type 2 diabetes mellitus with diabetic neuropathy E11.40 ; Insulin long-term use Z79.4 and Chronic obstructive pulmonary disease, unspecified COPD type J44.9 [place] [id number] [place] [address] [id number] Jun, [place] [id number] [place] [address] [id number] Jun, Essential hypertension I10 [place] [id number] [place] [address] [id number] Jun, Essential hypertension I10 [place] [id number] [place] [address] [id number] Jun, Type 2 diabetes mellitus with diabetic neuropathy E11.40 ; Type 2 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 ; S/P coronary artery stent placement Z95.5 ; Obesity (BMI 30.0-34.9) E66.9 ; Mixed hyperlipidemia E78.2 ; Frequent falls R29.6 ; Chronic obstructive pulmonary disease, unspecified COPD type J44.9 ; Essential hypertension I10 ; Insulin long-term use Z79.4 and High risk medication use Z79.899 [place] [id number] [place] [address] [id number] May, Diarrhea, unspecified type R19.7 ; Type 2 diabetes mellitus with diabetic neuropathy E11.40 ; Chronic obstructive pulmonary disease, unspecified COPD type J44.9 ; S/P coronary artery stent placement Z95.5 ; High risk medication use Z79.899 ; Essential hypertension I10 ; Encounter for administration of vaccine Z23 and Encounter for immunization Z23 [place] [id number] [id number] [place] [id number] May, Chronic obstructive pulmonary disease, unspecified COPD type J44.9 [address] [place] [address] [id number] May, Type 2 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 ; Encounter for immunization Z23 ; Needs flu shot Z23 ; Comprehensive diabetic foot examination, type 2 DM, encounter for E11.9 and Obesity (BMI 30.0-34.9) E66.9 [address] [place] [address] [id number] May, [address] [place] [address] [id number] Apr, [place] [id number] [place] [address] [id number] Apr, Essential hypertension I10 and Aphasia R47.[address] [place] [address] [id number] Apr, [place] [id number] [place] [address] [id number] Apr, Type 2 diabetes mellitus with diabetic neuropathy E11.40 ; Frequent falls R29.6 ; Essential hypertension I10 ; S/P coronary artery stent placement Z95.5 ; High risk medication use Z79.899 ; Hyperlipidemia, unspecified hyperlipidemia E78.5 ; CKD (chronic kidney disease), stage 3 (moderate) N18.3 ; Pain in left shoulder M25.512 and Chronic obstructive pulmonary disease, unspecified COPD type J44.9 [place] [id number] [place] [address] [id number] Mar, [address] [place] [id number] [place] [address] [id number] Mar, Type 2 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 ; Leg wound, left, initial encounter S81.802A ; Hx of shoulder surgery Z98.890 ; Acute pain of left shoulder M25.512 and Fall, initial encounter W19.XXXA [facility] [place] [address], [place] [id number] Feb, Follow-up exam Z09 ; Hx of shoulder surgery Z98.890 ; Acute pain of left shoulder M25.512 ; Essential hypertension I10 and Leg wound, left, initial encounter S81.802A [facility] [id number] [place] [address] [id number] Feb, [facility] [place] [address] [place] [id number] [place] [address] [id number] Feb, [facility] [place] [address] [id number] [place] [address] [id number] Feb, Chronic obstructive pulmonary disease, unspecified COPD type J44.9 [facility] [place] [id number] [place] [address] [id number] Feb, [facility] [address] [place] [address] [id number] [place] [address], [place] [id number] Jan, Generalized weakness R53.1 ; Exertional shortness of breath R06.02 and Fungal rash of trunk B36.9 [facility] [place] [id number] [place] [address] [id number] Jan, [facility] [address] [id number] [place] [address] [id number] Jan, [facility] [place] [id number] [place] [address] [id number] Jan, [facility] [address] [id number] [place] [address] [id number] Jan, [facility] [address] [address] [id number] [place] [address] [id number] December, High risk medication use Z79.899 [facility] [place] [address] [id number] [place] [address] [id number] December, Type 2 diabetes mellitus with diabetic neuropathy E11.[address] [id number] [place] [id number] December, High risk medication use Z79.[address] [id number] [place] [id number] Nov, Diabetes type 2, uncontrolled E11.65 [address] [place] [address] [id number] Nov, Medicare annual wellness visit, initial Z00.00 ; Bilateral low back pain without sciatica M54.5 ; Pain in left shoulder M25.512 ; Chronic pain syndrome G89.4 ; Type 2 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 ; High risk medication use Z79.899 and Encounter for immunization Z23 [address] [id number] Nov, Type 2 diabetes mellitus with diabetic neuropathy E11.40 ; Coronary artery disease involving suquamish coronary artery of suquamish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 and CKD (chronic kidney disease), stage 3 (moderate) N18.[address] [id number] [place] [id number] Oct, Type 2 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 ; Chronic pain syndrome G89.4 ; Chronic obstructive pulmonary disease, unspecified COPD type J44.9 ; Chronic kidney disease, unspecified N18.9 and Rash R21 [address] [id number] [place] [id number] Oct, Type 2 diabetes mellitus with diabetic neuropathy E11.[address] [id number] [place] [id number] Oct, Rash R21 and Impetigo L01.[id number] [place] [address] [id number] Oct, Chronic pain syndrome G89.[address] [id number] [place] [id number] Oct, [address] [place] [address] [id number] Sep, Sebaceous cyst L72.[address] [id number] [place] [id number] 16 Sep, 2016 Sebaceous cyst L72.3 [place] [address] [id number] [place] [address] [id number] Sep, Chronic pain syndrome G89.4 ; Pain in left shoulder M25.512 and Effusion of olecranon bursa, left M25.422 [facility] [address] [place] [id number] [address] Aug, [facility] [address] [address] [id number] [place] [address] [id number] Aug, [place] [id number] [place] [address] [id number] Aug, Mixed hyperlipidemia E78.2 and Chronic kidney disease, unspecified N18.9 [place] [id number] [place] [address] [id number] Jul, Type 2 diabetes mellitus with diabetic neuropathy E11.40 ; Essential hypertension I10 and S/P coronary artery stent placement Z95.5 [place] [id number] [place] [address] [id number] Jul, 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 [place] [id number] [place] [address] [id number] Jul, Diabetes type 2, uncontrolled E11.65 ; Essential hypertension I10 and 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 [address] [place] [address] [id number] Jul, [place] [id number] [place] [address] [id number] Jul, [address] [place] [address] [id number] Jul, [place] [id number] [place] [address] [id number] Jul, Chronic obstructive pulmonary disease, unspecified COPD type J44.9 [address] [place] [address] [id number] Jun, CKD (chronic kidney disease), stage 3 (moderate) N18.3 and Anemia, unspecified type D64.9 [address] [place] [address] [id number] Jun, Type 2 diabetes mellitus with diabetic neuropathy E11.40 ; Decreased GFR R94.4 ; CKD (chronic kidney disease), stage 3 (moderate) N18.3 and Decreased hemoglobin R71.0 [place] [id number] [place] [address] [id number] Jun, CKD (chronic kidney disease), stage 3 (moderate) N18.3 and Anemia, unspecified type D64.9 [address] [place] [address] [id number] Jun, Type 2 diabetes mellitus with diabetic neuropathy E11.40 ; Decreased GFR R94.4 and CKD (chronic kidney disease), stage 3 (moderate) N18.3 [address] [place] [address] [id number] Jun, Type 2 diabetes mellitus with diabetic neuropathy E11.40 and Essential hypertension I10 [place] [id number] [place] [address] [id number] Jun, [place] [id number] [place] [address] [id number] Jun, [place] [id number] [place] [address] [id number] Jun, Type 2 diabetes mellitus with diabetic neuropathy E11.40 ; S/P coronary artery stent placement Z95.5 ; Chronic obstructive pulmonary disease, unspecified COPD type J44.9 ; Essential hypertension I10 ; GERD without esophagitis K21.9 ; Peripheral vascular disease I73.9 ; Mixed hyperlipidemia E78.2 and Hospital discharge follow-up Z09 [address] [place] [address] [id number] Jun, [place] [id number] [place] [address] [id number] May, Depression F32.9 and Hyperlipidemia, unspecified hyperlipidemia E78.5 [facility] [address] [place] [place] [id number] [place] [address] May, [place] [id number] [place] [address] [id number] May, [address] [place] [address] [id number] May, Essential hypertension I10 ; Chronic pain syndrome G89.4 ; Pain in left shoulder M25.512 ; High risk medication use Z79.899 ; Chronic obstructive pulmonary disease, unspecified COPD type J44.9 ; S/P coronary artery stent placement Z95.5 ; Personal history of carotid stenosis Z86.79 ; Hyperlipidemia, unspecified hyperlipidemia E78.5 ; Decreased GFR R94.4 and Type 2 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 [address] [place] [address] [id number] May, Hemoglobin decreased R71.0 and Decreased GFR R94.4 [place] [id number] [place] [address] [id number] May, Hemoglobin decreased R71.0 and Decreased GFR R94.4 [place] [id number] [place] [address] [id number] May, [place] [id number] [place] [address] [id number] May, [place] [id number] [place] [address] [id number] Apr, [place] [id number] [place] [address] [id number] Apr, Type 2 diabetes mellitus with foot [...] unspecified hyperlipidemia E78.5 and Essential hypertension I10 [address] [place] [address] [id number] Apr, [address] [place] [address] [id number] Mar, [address]65100[place] [id number] Mar, [facility] [address] [place] [address] Mar, [facility] [id number] [place] [address] [id number] Feb, [facility] [id number] [place] [address] [id number] Feb, [facility] [address] [place] [id number] [place] [address] [id number] Feb, [facility] [id number] [place] [address] [id number] Jan, Type 2 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 ; Hypercholesterolemia E78.0 ; Chronic pain syndrome G89.4 ; Pain in left shoulder M25.512 and High risk medication use Z79.899 [facility] [id number] [place] [address] [id number] Jan, [facility] [address] [place] [id number] [place] [address] [id number] Jan, [facility] [id number] [place] [address] [id number] December, [facility] [address] [id number] [place] [address] [id number] December, [facility] [address] [address] December, Diabetes type 2, uncontrolled E11.65 ; Type 2 diabetes mellitus with diabetic neuropathy E11.40 ; Peripheral vascular disease I73.9 ; 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 and 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 [facility] [id number] [place] [id number] Nov, [facility] [id number] [place] [id number] Nov, [facility] [id number] [place] [id number] Nov, [facility] [address] [place] [id number] [place] [address] [id number] Nov, Right hip pain M25.551 [facility] [address] [facility] [id number] [address] Nov, [facility] [address] [facility] [id number] [place] [address] Nov, [facility] [id number] [place] [address] [id number] Nov, Diabetes with neurological manifestations, type II or unspecified type, 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.60 [facility] [id number] [place] [address] [id number] Nov, [facility] [address] [place] [id number] [place] [address] [id number] Nov, [facility] [address] [address] [id number] [place] [address] [id number] Oct, Diabetes type 2, uncontrolled E11.65 ; Type 2 diabetes mellitus with diabetic neuropathy, unspecified E11.40 and Low back pain M54.5 [facility] [address] [id number] [place] [address] [id number] Oct, [facility] [id number] [place] [address] [id number] Oct, [facility] [id number] [place] [address] [id number] Oct, [facility] [id number] [place] [address] [id number] Sep, [facility] [address] [id number] [place] [address] [id number] Sep, [facility] [address]100[place] [address] Sep, [facility] [id number] [place] [address] [id number] Sep, [facility] [address] [place] [id number] [place] [address] [id number] Sep, [facility] [id number] [place] [id number] Aug, 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 [facility] [address] [id number] [place] [id number] Aug, [facility] [address] [place] [id number] [place] [id number] Aug, Allergic rhinitis due to pollen J30.1 [facility] [id number] [place] [id number] Jul, [facility] [id number] [place] [id number] Jul, [facility] [id number] [place] [address] [id number] Jul, [facility] [id number] [place] [address] [id number] Jun, [place] [id number] [place] [id number] Jun, Thumb tendonitis M77.8 and Ringing in ear, bilateral H93.13 [facility] [id number] [place] [id number] Jun, [facility] [address] [facility] [id number] [place] [id number] May, [place] [address] [place] [id number] [place] [address]- 3096 May, [place] [address] [place] [address]- 0941 May, Pre-op evaluation Z01.818 ; Encounter for immunization Z23 ; Type 2 diabetes mellitus with diabetic peripheral angiopathy without gangrene E11.51 ; Insulin long-term use Z79.4 ; Type 2 diabetes mellitus with foot ulcer E11.621 ; Peripheral vascular disease I73.9 ; Coronary artery disease involving suquamish coronary artery of suquamish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 ; S/P coronary artery stent placement Z95.5 ; Osteomyelitis of right foot, unspecified chronicity M86.9 and Chronic obstructive pulmonary disease, unspecified COPD type J44.9 [facility] [id number] [place] [address]- 5427 May, [facility] [address]00565100[place] [id number] May, [facility] [address] [id number] [place] [address] [id number] May, Diabetes type 2, uncontrolled E11.65 ; Encounter for immunization Z23 ; Osteopenia M85.80 and Allergic rhinitis due to pollen J30.1 [facility] [id number] [place] [address] [id number] May, Lumbago 724.2 [place] [address] [place] [id number] [place] [id number] Apr, [facility] [id number] [place] [address] [id number] Apr, [facility] [id number] [place] [address] [id number] Apr, [facility] [id number] [place] [address] [id number] Apr, [facility] [id number] [place] [address]- 1586 Mar, [facility] [id number] [place] [address] [id number] Mar, [facility] [id number] [place] [address] [id number] Mar, [facility] [id number] [place] [address] [id number] Mar, [facility] [id number] [place] [address] [id number] Mar, [facility] [id number] [place] [address] 99643- 9232 Mar, [facility] [id number] [place] [address] [id number] Mar, [facility] [id number] [place] [address] [id number] Mar, Diabetes with neurological manifestations, type II or unspecified type, 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.60 and Severe obesity (BMI 35.0-35.9 with comorbidity) 278.01 [facility] [id number] [place] [id number] Mar, [facility] [address]100[place] [address] Mar, [facility] [address]100[place] [address] Feb, [facility] [place] [address] [id number] [place] [id number] Feb, [facility] [address] [id number] [place] [id number] Feb, [facility] [id number] [place] [id number] Feb, Diabetes with neurological manifestations, type II or unspecified type, 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.60 [facility] [place] [id number] [place] [id number] Feb, [facility] [address]005[address]100[place] [address]- 2546 Feb, [facility] [address] [id number] [place] [id number] Feb, [facility] [id number] [place] [id number] Feb, Follow up V67.9 ; Diabetes with neurological manifestations, type II or unspecified type, 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.60 and Congestive heart failure 428.0 [facility] [place] [place] [address] [id number] [place] [id number] Jan, [facility] [id number] [place] [address] Jan, [facility] [place] [address] [id number] [place] [address] Jan, [facility] [place] [id number] [place] [address] December, Otitis media with effusion 381.4 ; Left arm numbness 782.0 and Osteoporosis 733.00 [facility] [address] [id number] [place] [id number] December, [facility] [address] [id number] [place] [address] Nov, [facility] [address] [id number] [place] [address] Nov, Serous otitis media 381.4 and Lumbago 724.2 [facility] [place] [facility] [id number] [address] 14 Nov, 2014 [facility] [place] [facility] [id number] [address] Nov, [facility] [place] [id number] [place] [address] Oct, [facility] [place] [facility] [id number] [address] Oct, [facility] [id number] [place] [id number] Oct, [facility] [place] [facility] [id number] [address]- 6[address] Oct, [facility] [place] [id number] [place] [address]14 Oct, [facility] [place] [facility] [id number] [address] 2476 Oct, [facility] [place] [facility] [id number] [address] 1386 Sep, [facility] [place] [facility] [address] [id number] [address] 1076 Sep, [facility] [place] [address] [id number] [place] [address]85 Sep, [facility] [place] [facility] [address] [id number] [address]- 2456 Sep, [facility] [place] [address] [id number] [place] [address]404 Aug, [facility] [place] [facility] [address] [id number] [address]- 3[address] Aug, [facility] [place] [address] [id number] [place] 883845523 Aug, [facility] [place] [facility] [address] [id number] [place] [address]- 8772 Aug, [facility] [place] [address] [id number] [place] [id number] Jul, [facility] [place] [facility] [address] [facility] [id number] [place] [address]- 7846 Jul, [facility] [place] [address] [id number] [place] [id number] Jul, [facility] [place] [facility] [address] [id number] [place] [address]- 0315 Jul, [facility] [place] [address] [id number] [place] 614540352 Jul, [facility] [place] [facility] [address] [facility] [id number] [place] [address] 88[address] Jul, [facility] [place] [address] [id number] [place] [address]777 Jun, [facility] [place] [facility] [address] [facility] [id number] [place] [address]- 00[address] Jun, [facility] [place] [address] [facility] [id number] [place] [address]885[address]487 May, [facility] [place] [facility] [address] [facility] [id number] [place] [address]- 78[address] May, [facility] [place] [address] [id number] [place] 643887124 May, [facility] [place] [facility] [address] [facility] [id number] [place] [address]- 47[address] May, [facility] [place] [address] [id number] [place] [id number] May, [facility] [place] [facility] [address] [facility] [id number] [place] [address]- 1112 May, [facility] [place] [address] [id number] [place] [address] May, [facility] [place] [address] [id number] [place] 224893852 May, [facility] [place] [facility] [address] [facility] [id number] [place] [address]- 1700 May, [facility] [place] [facility] [address] [facility] [id number] [place] [address] May, [facility] [address] [facility] [id number] [place] [address]12[address]272 May, [facility] [place] [facility] [address] [facility] [id number] [place] [address]- 3441 May, [facility] [place] [facility] [address] [facility] [id number] [place] [address]- 6096 Apr, [facility] [address] [facility] [id number] [place] 057069913 Apr, [facility] [place] [facility] [address] [facility] [id number] [place] [address]- 5469 Apr, [facility] [address] [id number] [place] 794148936 Apr, [facility] [place] [address] [facility] [id number] [place] 763782325 Apr, [facility] [place] [facility] [address] [facility] [id number] [place] [address]- 0610 Apr, [facility] [place] [facility] [address] [facility] [id number] [place] [address]- 8843 Apr, [facility] [place] [address] [facility] [id number] [place] 189869040 Apr, [facility] [place] [facility] [address] [facility] [id number] [place] [address]- 9800 Apr, [facility] [place] [address] [facility] [id number] [place] 137606621 Apr, [facility] [place] [facility] [address] [facility] [id number] [place] [address]- 3357 Apr, [facility] [address] [facility] [id number] [place] 359631589 Apr, [facility] [place] [facility] [address] [facility] [id number] [place] [address]- 6827 Apr, [facility] [place] [address] [id number] [place] [id number] Apr, [facility] [place] [facility] [address] [facility] [id number] [place] [address]- 5501 Apr, [facility] [place] [address] [facility] [id number] [place] [id number] Apr, [facility] [place] [facility] [address] [facility] [id number] [place] [address]- 6986 Apr, [facility] [place] [address] [id number] [place] [id number] Apr, [facility] [place] [facility] [address] [facility] [id number] [place] [address]- 8962 Apr, [facility] [place] [address] [facility] [id number] [place] 555633814 Mar, [facility] [place] [facility] [address] [facility] [id number] [place] [address]- 1266 Mar, [facility] [place] [address] [id number] [place] 318817048 Mar, [facility] [place] [address] [id number] [place] 821230345 Mar, [facility] [place] [facility] [address] [facility] [id number] [place] [address]- 1479 Mar, [facility] [place] [facility] [address] [facility] [id number] [place] [address]- 4987 Mar, [facility] [place] [address] [id number] [place] 544222518 Mar, [facility] [place] [facility] [address] [facility] [id number] [place] [address]- 7553 Mar, [facility] [address] [facility] [id number] [place] 877101536 Mar, [facility] [place] [facility] [address] [facility] [id number] [place] [address]- 8719 Mar, [facility] [place] [address] [id number] [place] 527665463 Mar, [facility] [place] [facility] [address] [id number] [place] [address]- 6056 Mar, [facility] [place] [address] [id number] [place] 829342158 Mar, [facility] [place] [facility] [address] [id number] [place] [address]- 7532 Mar, [facility] [place] [address] [id number] [place] [id number] Mar, [facility] [place] [facility] [address] [id number] [place] [address]- 4440 Mar, [facility] [place] [address] [id number] [place] 619565920 Mar, [facility] [place] [facility] [address] [facility] [id number] [place] [address]- 6672 Mar, [facility] [place] [address] [id number] [place] 717191190 Mar, [facility] [place] [facility] [address] [facility] [id number] [place] [address]- 5481 Mar, [facility] [place] [address] [id number] [place] 724887987 Feb, [facility] [place] [facility] [address] [facility] [id number] [place] [address]- 2993 Feb, [facility] [place] [address] [id number] [place] [id number] Feb, [facility] [place] [facility] [address] [id number] [place] [address]- 6309 Feb, [facility] [place] [address] [id number] [place] [id number] Feb, [facility] [place] [facility] [address] [id number] [place] [address]- 5945 Feb, [facility] [place] [address] [id number] [place] [id number] Feb, [facility] [place] [facility] [address] [id number] [place] [address]- 5719 Feb, [facility] [place] [address] [id number] [place] [id number] Feb, [facility] [place] [facility] [address] [facility] [id number] [place] [address]- 5976 Feb, [facility] [place] [address] [id number] [place] 020250926 Feb, [facility] [place] [facility] [address] [id number] [place] [address]- 5181 Feb, [facility] [place] [address] [id number] [place] 793918818 Feb, [facility] [place] [facility] [address] [facility] [id number] [place] [address]- 1901 Feb, [facility] [place] [address] [id number] [place] [id number] Feb, [facility] [place] [facility] [address] [facility] [id number] [place] [address]- 1522 Feb, [facility] [place] [address] [id number] [place] 576719592 Feb, [facility] [place] [facility] [address] [facility] [id number] [place] [address]- 5883 Feb, [facility] [place] [address] [id number] [place] 749716548 Feb, [facility] [place] [address] [id number] [place] 811240839 Feb, [facility] [place] [facility] [address] [facility] [id number] [place] [address]- 8033 Feb, [facility] [place] [facility] [address] [facility] [id number] [place] [address]- 7393 Feb, [facility] [place] [address] [id number] [place] 300066090 Feb, [facility] [place] [facility] [address] [facility] [id number] [place] [address]- 7381 Feb, [facility] [place] [address] [id number] [place] 864124471 Feb, [facility] [place] [facility] [address] [id number] [place] [address]- 0410 Feb, [facility] [place] [address] [id number] [place] [id number] Feb, [facility] [place] [facility] [address] [facility] [id number] [place] [address]- 4539 Feb, [facility] [place] [address] [id number] [place] [id number] Jan, [facility] [place] [facility] [address] [id number] [place] [address]- 3392 Jan, [facility] [place] [facility] [address] [facility] [id number] [place] [address]- 4156 Jan, [facility] [place] [facility] [address] [facility] [id number] [place] [address]- 9733 Jan, [facility] [place] [facility] [address] [facility] [id number] [place] [address]- 8615 Jan, [facility] [place] [facility] [address] [facility] [id number] [place] [address]- 5973 Jan, [facility] [place] [address] [facility] [id number] [place] 031113393 Jan, [facility] [place] [facility] [address] [facility] [id number] [place] [address]- 4267 Jan, [facility] [place] [facility] [address] [facility] [id number] [place] [address]- 6194 Jan, [facility] [place] [facility] [address] [facility] [id number] [place] [address]- 8007 Jan, [facility] [place] [address] [id number] [place] [id number] Jan, [facility] [place] [address] [id number] [place] 448274813 Jan, [facility] [place] [facility] [address] [facility] [id number] [place]37[place]- 6011 Jan, [facility] [place] [facility] [address] [id number] [place] [address]- 6937 Jan, [facility] [place] [address] [id number] [place] 483502925 Jan, [facility] [place] [address] [id number] [place] 063778387 Jan, [facility] [place] [facility] [address] [id number] [place] [address]- 7266 Jan, [facility] [place] [facility] [address] [id number] [place] [address]- 1875 Jan, [facility] [place] [facility] [address] [id number] [place] [address]- 9876 Jan, [facility] [place] [address] [id number] [place] 918317838 December, [facility] [place] [facility] [address] [facility] [id number] [place] [address]- 8376 December, [facility] [place] [facility] [address] [facility] [id number] [place] [address]- 9653 December, [facility] [place] [address] [id number] [place] 902800770 December, [facility] [place] [facility] [address] [id number] [place] [address]- 3936 December, [facility] [place] [address] [id number] [place] 791500318 December, [facility] [place] [facility] [address] [id number] [place] [address]- 2546 December, [facility] [place] [address] [id number] [place] 260931627 December, [facility] [place] [facility] [address] [facility] [id number] [place] [address]- 0766 December, [facility] [place] [address] [id number] [place] 058950383 Nov, [facility] [place] [facility] [address] [facility] [id number] [place] [address]- 6853 Nov, [facility] [place] [address] [facility] [id number] [place] 179185539 Nov, [facility] [place] [facility] [address] [facility] [id number] [place] [address]- 8080 Nov, [facility] [place] [facility] [address] [facility] [id number] [place] [address]- 1178 Nov, [facility] [place] [facility] [address] [facility] [id number] [place] [address]- 8218 Nov, [facility] [place] [facility] [address] [facility] [id number] [place] [address]- 7072 Oct, [facility] [place] [address] [facility] [id number] [place] 2147[address]182 Oct, [facility] [place] [facility] [id number] [address]- 6347 Oct, [facility] [place] [address] [facility] [id number] [place] 141333669 Oct, [facility] [place] [facility] [address] [facility] [id number] [place] [address]- 6991 Oct, [facility] [place] [address] [facility] [id number] [place] 376589577 Sep, [facility] [place] [facility] [address] [facility] [id number] [place] [address]- 1109 Sep, [facility] [place] [address] [facility] [id number] [place] 196742634 Aug, [facility] [place] [facility] [address] [facility] [id number] [place] [address]- 3113 Aug, [facility] [place] [address] [facility] [id number] [place] 210144433 Aug, [facility] [place] [facility] [address] [facility] [id number] [place] [address]- 4098 Aug, [facility] [place] [facility] [address] [facility] [id number] [place] [address]- 4558 Aug, [facility] [place] [address] [id number] [place] 744153751 Aug, [facility] [place] [facility] [address] [facility] [id number] [place] [address] 2546 Aug, [facility] [place] [facility] [address] [facility] [id number] [place] [address]- 2546 Aug, [facility] [place] [address] [facility] [id number] [place] 974411451 Aug, [facility] [place] [facility] [address] [facility] [id number] [place] [address]- 2546 Aug, [facility] [address] [facility] [id number] [place] 647126518 Jul, [facility] [place] [facility] [id number] [address]- 4326 Jul, [facility] [place] [address] [id number] [place] 317284624 Jul, [facility] [place] [facility] [address]00565100[place] [address]- 9026 Jul, [facility] [address] [facility] [id number] [place] 049496527 Jul, [facility] [place] [facility] [address] [id number] [address]- 1676 Jul, [facility] [address] [facility] [id number] [place] 546124245 Jul, [facility] [place] [facility] [address] [id number] [address]- 0076 Jul, [facility] [address] [facility] [id number] [place] 890999296 Jun, [facility] [place] [facility] [address] [facility] [id number] [place] [address]- 2546 Jun, [facility] [address] [facility] [id number] [place] 939400681 Jun, [facility] [place] [facility] [address] [id number] [address]- 1367 Jun, [facility] [address] [facility] [id number] [place] [address]- 2548 Jun, [facility] [address] [facility] [id number] [place] [address]- 2546 Jun, [facility] [place] [address] [id number] [place] 063444050 Apr, [facility] [place] [address] [id number] [place] 43[place]379 Mar, [facility] [place] [address] [id number] [place] 008180207 Mar, [facility] [place] [address] [id number] [place] 350516817 Feb, [facility] [place] [address] [id number] [place] 789658879 Feb, [facility] [place] [address] [id number] [place] 624087950 Feb, [facility] [place] [address] [id number] [place] 568021543 December, [facility] [place] [address] [id number] [place] 826743434 December, [facility] [address] [facility] [id number] [place] [address]- 2546 December, [facility] [place] [address] [id number] [place] 173641224 December, [facility] [place] [address] [id number] [place] 741290189 December, [facility] [place] [address] [id number] [place] 962662382 Nov, [facility] [place] [address] [id number] [place] [address] Nov, [facility] [place] [address] [id number] [place] [id number] Nov, [facility] [place] [address] [id number] [place] 030776295 Oct, [facility] [place] [address] [id number] [place] 016401512 Sep, [facility] [place] [address] [id number] [place] 215125414 Aug, [facility] [address] [facility] [id number] [place] [address]- 2546 Aug, [facility] [place] [address] [id number] [place] 6827[address]507 Aug, [facility] [place] [address] [id number] [place] 018962035 Jul, [facility] [address] [facility] [id number] [place] [address]- 2546 Jul, [facility] [place] [address] [id number] [place] 631093294 Jul, [facility] [address] [facility] [id number] [place] [address]- 3939 Jul, [facility] [place] [address] [id number] [place] [id number] Jun, [facility] [id number] [address]- 2578 Jun, [facility] [place] [address] [id number] [place] 712464947 May, [facility] [address] [facility] [id number] [place] [address]- 2260 May, [facility] [place] [address] [id number] [place] [id number] May, [facility] [address] [facility] [id number] [place] [address] May, [facility] [place] [address] [id number] [place] [id number] Apr, [facility] [place] [address] [id number] [place] [id number] Apr, [facility] [place] [address] [id number] [place] [id number] Mar, [facility] [place] [address] [id number] [place] [id number] Mar, [facility] [place] [address] [id number] [place] [id number] Feb, [facility] [place] [address] [id number] [place] [id number] Feb, [facility] [place] [address] [id number] [place] [id number] Jan, [facility] [place] [address] [id number] [place] [id number] Jan, [facility] [place] [address] [id number] [place] [id number] Jan, [facility] [place] [address] [id number] [place] [id number] Jan, [facility] [place] [address] [id number] [place] [id number] December, [facility] [place] [address] [id number] [place] [id number] December, [facility] [address] [facility] [id number] [place] [address] Nov, [facility] [place] [address] [id number] [place] [id number] Nov, [facility] [place] [address] [id number] [place] [id number] Nov, [facility] [place] [address] [id number] [place] [id number] Nov, [facility] [place] [address] [id number] [place] [id number] Nov, [facility] [address] [facility] [id number] [place] [address] Oct, [facility] [address] [facility] [id number] [place] [address] Oct, [facility] [place] [address] [id number] [place] [id number] Oct, [facility] [place] [address] [id number] [place] [id number] Oct, [facility] [place] [address] [id number] [place] [id number] Oct, [facility] [place] [address] [id number] [place] [id number] Oct, [facility] [place] [address] [id number] [place] [id number] Oct, [facility] [place] [address] [id number] [place] [id number] Oct, [facility] [place] [address] [id number] [place] [id number] Oct, [facility] [address] [facility] [id number] [place] [address] Oct, [facility] [place] [address] [id number] [place] [id number] Sep, [facility] [place] [address] [id number] [place] [id number] Sep, [facility] [place] [address] [id number] [place] [id number] Aug, [facility] [place] [address] [id number] [place] [id number] Aug, [facility] [id number] [address] Jul, [facility] [id number] [place] [address] Jul, [facility] [id number] [address] Jul, [facility] [id number] [place] [address] Jul, [facility] [id number] [address] Jul, [facility] [id number] [place] [address] Jul, [facility] [id number] [address] Jul, [facility] [id number] [place] [address] Jul, [facility] [address] [facility] [id number] [place] [address] Jul, [facility] [address] [facility] [id number] [place] [address] Jul, [facility] [address] [facility] [id number] [place] [address] Jul, [facility] [address] [id number] [address] Jul, [facility] [address] [facility] [id number] [place] [address] Jul, [facility] [address] [facility] [id number] [place] [address] Jul, IMMUNIZATIONS No Known Immunizations SOCIAL HISTORY Never Assessed REASON FOR VISIT Diabetes, blood sugars Chad GRIMALDO PLAN OF CARE Activity Details Follow Up 4 Weeks Reason:CHM DM VITAL SIGNS Height 69 in 2016-12-25 Weight 238.4 lbs 2016-12-25 Temperature 97.9 degrees Fahrenheit 2016-12-25 Heart Rate 78 bpm 2016-12-25 Respiratory Rate 16 2016-12-25 BMI 35.20 kg/m2 2016-12-25 Blood pressure systolic 128 mmHg 2016-12-25 Blood pressure diastolic 70 mmHg 2016-12-25 MEDICATIONS Medication Instructions Dosage Frequency Start Date End Date Duration Status Carvedilol 3.125 MG Orally 2 times a day 1 tablet 12h Active ProAir HFA 90 mcg/actuation Inhalation 4 times a day 2 puffs as needed 6h Active Hydrocodone-Acetaminophen 7.5-325 MG Orally Once a day at bedtime 1 tablet as needed Jan, 0 Active Omeprazole 20 mg Orally Once a day 1 capsule 24h Active Symbicort 160-4.5 mcg/actuation Inhalation Twice a day (morning and evening) inhale 2 puffs Active Triamcinolone Acetonide 0.5 % Externally Twice a day 1 application to affected area 12h Oct, Active Victoza 18 MG/3ML Subcutaneous Once a day 1.8 mg 24h Active Lancets - subcutaneously 3 times a day as directed 8h Jun, Active Victoza 18 MG/3ML INJECT (1.8 MG) ONCE DAILY. Active Folic Acid 1 MG Orally Once a day 1 tablet 24h 20 Jul, 2016 Active Zyrtec Allergy 10 MG ...TAKE ONE (1) TABLET BY MOUTH DAILY NEEDED... Active Lasix 20 mg Orally Once a day 1/2 tab 24h 0 Active Aspirin Adult Low Strength 81 MG Orally Once a day 1 tablet 24h Active Symbicort 160-4.5 MCG/ACT INHALE TWO (2) PUFFS BY MOUTH TWICE DAILY ( MORNING AND EVENING). Active Atorvastatin Calcium 40 mg Orally Once a day 1 tablet 24h Active Lexapro 10 mg Orally Once a day 1 tablet 24h Active Blood Glucose Test Strip Test Strips test blood sugar Feb, Active Cetirizine HCl 10 mg Orally Once a day 1 tablet as needed 24h Nov, Active Calcium + D3 600-200 MG-UNIT Orally 2 times a day 1 tablet 12h Active Levemir Flexpen 100 UNIT/ML Subcutaneous 2 times a day 40 units 12h Active RESULTS No Results PROCEDURES Procedure Date Ordered Result Body Site [facility] [facility] VISIT ESTABLISHED PATIENT December 25, 2016 INSTRUCTIONS MEDICATIONS ADMINISTERED No Known Medications MEDICAL [...] Surgical History Left eye retinal eye repair ([facility]) 06/2014 Surgical History amputation, toe-right third toe ([facility]) 2013 Surgical History Right eye retinal eye repair ([facility]) 09/2014 Surgical History heart cath with stent [...]
--- OUTSIDE RECORDS SUMMARY | 2018-06-20 10:08 | XMS REPORT ---
Author Author SATINDER GOOD [facility] Address [address] [place] [address] Care Team Providers Care Adoption Agent Name Role Phone SATINDER GOOD Unavailable PROBLEMS Type Condition ICD9-CM Code UOW09-UH Code Onset Dates Condition Status SNOMED Code Problem Peripheral vascular disease I73.9 Active 057075311 Problem Coronary artery disease involving chilkat coronary artery of chilkat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 Active 3129289207443 Problem S/P coronary artery stent placement Z95.5 Active 561156286 Problem Chronic obstructive pulmonary disease, unspecified COPD type J44.9 Active 73800458 Problem Type 2 diabetes mellitus with diabetic neuropathy E11.40 Active 50928391 Problem Bilateral low back pain without sciatica M54.5 Active 071286309 Problem 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 Active 061445441 Problem 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 Active 094657879 Problem Hypercholesterolemia E78.0 Active 49128357 Problem Comprehensive diabetic foot examination, type 2 DM, encounter for E11.9 Active 05810580 Problem Type 2 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 Active 809612080 Problem Obesity (BMI 30.0-34.9) E66.9 Active 694890623649746 Problem Personal history of carotid stenosis Z86.79 Active 598554642 Problem Aphasia R47.01 Active 25687968 Problem Chronic diarrhea K52.9 Active 077385309 Problem Uses walker Z99.89 Active 522927076 Problem Chronic fatigue R53.82 Active 62516645 Problem Mixed stress and urge urinary incontinence N39.46 Active 917322464 Problem Chronic pain syndrome G89.4 Active 302934989 Problem High risk medication use Z79.899 Active 792678110 Problem Osteomyelitis of right foot, unspecified chronicity M86.9 Active 86519969 Problem Fatigue, unspecified type R53.83 Active 61651895 Problem Diabetes type 2, uncontrolled E11.65 Active 741412690 Problem Full incontinence of feces R15.9 Active 395316249335989 Problem Other chronic pain G89.29 Active 50540404 Problem Functional diarrhea K59.1 Active 37320991 Problem Fecal urgency R15.2 Active 82411955 Problem Depression F32.9 Active 41590862 Problem CKD (chronic kidney disease), stage 3 (moderate) N18.3 Active 585216801 Problem Hyperlipidemia, unspecified hyperlipidemia E78.5 Active 70800431 Problem CKD (chronic kidney disease) stage 3, GFR 30-59 ml/min N18.3 Active 378171967 Problem Type 2 diabetes mellitus with diabetic peripheral angiopathy without gangrene E11.51 Active 108959647 Problem Pain in left shoulder M25.512 Active 47711997 Problem Insulin long-term use Z79.4 Active 715696664 Problem Essential hypertension I10 Active 89616271 Problem Type 2 diabetes mellitus with diabetic retinopathy, macular edema presence unspecified, with unspecified retinopathy severity E11.319 Active 00667314 Problem Chronic kidney disease, unspecified N18.9 Active 738159236 Problem Type 2 diabetes mellitus with foot ulcer E11.621 Active 251046079 Problem Frequent falls R29.6 Active 876647091 Problem GERD without esophagitis K21.9 Active 966085907 Problem Mixed hyperlipidemia E78.2 Active 300432902 ALLERGIES No Information ENCOUNTERS Encounter Location Date Diagnosis [address] [id number] Jan, [place] [id number] [place] [address] [id number] Jan, [place] [id number] [place] [address] [id number] Jan, [place] [address] [place] [id number] [place] [address] [id number] Jan, Other chronic pain G89.[address] [id number] December, Mixed stress and urge urinary incontinence N39.46 [place] [id number] [place] [address] [id number] December, Chronic fatigue R53.[address] [id number] December, Other chronic pain G89.29 [place] [id number] [place] [address] [id number] December, Diabetes type 2, uncontrolled E11.65 ; [...] type J44.9 and Other chronic pain G89.29 [facility] [id number] [address] December, [address] [place] [address] [id number] December, Medicare annual wellness visit, subsequent Z00.00 ; Type 2 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 ; Chronic obstructive pulmonary disease, unspecified COPD type J44.9 ; Depression F32.9 ; Peripheral vascular disease I73.9 ; Coronary artery disease involving chilkat coronary artery of chilkat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 ; Hypercholesterolemia E78.0 ; GERD without esophagitis K21.9 and Chronic kidney disease, unspecified N18.9 [place] [id number] [id number] December, Mixed stress and urge urinary incontinence N39.46 ; Full incontinence of feces R15.9 ; Fecal urgency R15.2 ; Functional diarrhea K59.1 and Type 2 diabetes mellitus with diabetic neuropathy E11.40 [address] [place] [address] [id number] Nov, Other chronic pain G89.29 [address] [place] [address] [id number] Oct, [address] [place] [address] [id number] Oct, [place] [id number] [id number] Oct, Other chronic pain G89.29 [place] [id number] [place] [address] [id number] Sep, Other chronic pain G89.29 [address] [id number] Aug, CKD (chronic kidney disease), stage 3 (moderate) N18.3 ; Anemia, unspecified type D64.9 and Dilated pore of Ly L70.8 [address] [id number] Aug, Other chronic pain G89.29 ; Pain in left shoulder M25.512 ; High risk medication use Z79.899 ; Uses walker Z99.89 ; Diabetes type 2, uncontrolled E11.65 and Depression F32.9 [place] [id number] [place] [address] [id number] Aug, Chronic diarrhea K52.9 [address] [id number] Aug, Chronic diarrhea K52.9 ; Type 2 diabetes mellitus with diabetic neuropathy E11.40 ; Diabetes type 2, uncontrolled E11.65 ; Insulin long-term use Z79.4 ; Chronic obstructive pulmonary disease, unspecified COPD type J44.9 ; Chronic pain syndrome G89.4 ; Pain in left shoulder M25.512 ; Uses walker Z99.89 ; S/P coronary artery stent placement Z95.5 ; Mixed hyperlipidemia E78.2 and Essential hypertension I10 [address] [id number] Aug, [address] [id number] Jul, Diabetes type 2, uncontrolled E11.65 [address] [place] [address] [id number] Jul, Diabetes type 2, uncontrolled E11.65 ; Type 2 diabetes mellitus with diabetic neuropathy E11.40 ; Insulin long-term use Z79.4 and Chronic obstructive pulmonary disease, unspecified COPD type J44.9 [address] [id number] Jun, [address] [place] [address] [id number] Jun, Essential hypertension I10 [address] [place] [address] [id number] Jun, Essential hypertension I10 [address] [place] [address] [id number] Jun, Type 2 diabetes mellitus with diabetic neuropathy E11.40 ; Type 2 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 ; S/P coronary artery stent placement Z95.5 ; Obesity (BMI 30.0-34.9) E66.9 ; Mixed hyperlipidemia E78.2 ; Frequent falls R29.6 ; Chronic obstructive pulmonary disease, unspecified COPD type J44.9 ; Essential hypertension I10 ; Insulin long-term use Z79.4 and High risk medication use Z79.899 [address] [place] [address] [id number] May, Diarrhea, unspecified type R19.7 ; Type 2 diabetes mellitus with diabetic neuropathy E11.40 ; Chronic obstructive pulmonary disease, unspecified COPD type J44.9 ; S/P coronary artery stent placement Z95.5 ; High risk medication use Z79.899 ; Essential hypertension I10 ; Encounter for administration of vaccine Z23 and Encounter for immunization Z23 [address] [id number] [id number] May, Chronic obstructive pulmonary disease, unspecified COPD type J44.[id number] [place] [address] [id number] May, Type 2 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 ; Encounter for immunization Z23 ; Needs flu shot Z23 ; Comprehensive diabetic foot examination, type 2 DM, encounter for E11.9 and Obesity (BMI 30.0-34.9) E66.9 [place] [id number] [id number] May, [address] [place] [address] [id number] Apr, [facility] [id number] [place] [address] [id number] Apr, Essential hypertension I10 and Aphasia R47.[address] [id number] Apr, [place] [id number] [place] [address] [id number] Apr, Type 2 diabetes mellitus with diabetic neuropathy E11.40 ; Frequent falls R29.6 ; Essential hypertension I10 ; S/P coronary artery stent placement Z95.5 ; High risk medication use Z79.899 ; Hyperlipidemia, unspecified hyperlipidemia E78.5 ; CKD (chronic kidney disease), stage 3 (moderate) N18.3 ; Pain in left shoulder M25.512 and Chronic obstructive pulmonary disease, unspecified COPD type J44.9 [place] [id number] [place] [address] [id number] Mar, [place] [id number] [place] [address] [id number] Mar, Type 2 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 ; Leg wound, left, initial encounter S81.802A ; Hx of shoulder surgery Z98.890 ; Acute pain of left shoulder M25.512 and Fall, initial encounter W19.XXXA [place] [address] [place] [address] [id number] Feb, Follow-up exam Z09 ; Hx of shoulder surgery Z98.890 ; Acute pain of left shoulder M25.512 ; Essential hypertension I10 and Leg wound, left, initial encounter S81.802A [facility] [id number] [place] [address] [id number] Feb, [place] [id number] [place] [address] [id number] Feb, [place] [id number] [place] [address] [id number] Feb, Chronic obstructive pulmonary disease, unspecified COPD type J44.9 [place] [id number] [place] [address] [id number] Feb, [address] [id number] Jan, Generalized weakness R53.1 ; Exertional shortness of breath R06.02 and Fungal rash of trunk B36.9 [facility] [id number] [place] [address] [id number] Jan, [facility] [place] [id number] [place] [address] [id number] Jan, [facility] [place] [id number] [place] [address] [id number] Jan, [facility] [place] [address] [id number] [place] [address] [id number] Jan, [facility] [address] [place] [id number] [place] [address] [id number] December, High risk medication use Z79.899 [facility] [address] [place] [id number] [place] [address] [id number] December, Type 2 diabetes mellitus with diabetic neuropathy E11.40 [facility] [address] [place] [id number] [place] [address] [id number] December, High risk medication use Z79.899 [facility] [address] [place] [id number] [place] [address] [id number] Nov, Diabetes type 2, uncontrolled E11.65 [place] [address] [place] [id number] [place] [address] [id number] Nov, Medicare annual wellness visit, initial Z00.00 ; Bilateral low back pain without sciatica M54.5 ; Pain in left shoulder M25.512 ; Chronic pain syndrome G89.4 ; Type 2 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 ; High risk medication use Z79.899 and Encounter for immunization Z23 [facility] [id number] [place] [address] [id number] Nov, Type 2 diabetes mellitus with diabetic neuropathy E11.40 ; Coronary artery disease involving chilkat coronary artery of chilkat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 and CKD (chronic kidney disease), stage 3 (moderate) N18.3 [facility] [id number] [place] [address] [id number] Oct, Type 2 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 ; Chronic pain syndrome G89.4 ; Chronic obstructive pulmonary disease, unspecified COPD type J44.9 ; Chronic kidney disease, unspecified N18.9 and Rash R21 [address] [id number] Oct, Type 2 diabetes mellitus with diabetic neuropathy E11.40 [facility] [address] [place] [address] [id number] Oct, Rash R21 and Impetigo L01.00 [place] [id number] [place] [address] [id number] Oct, Chronic pain syndrome G89.4 [place] [id number] [place] [address] [id number] Oct, [place] [id number] [place] [address] [id number] Sep, Sebaceous cyst L72.3 [place] [id number] [place] [address] [id number] Sep, Sebaceous cyst L72.3 [place] [id number] [place] [address] [id number] Sep, Chronic pain syndrome G89.4 ; Pain in left shoulder M25.512 and Effusion of olecranon bursa, left M25.422 [facility] [address] [address] Aug, [address] [place] [address] [id number] Aug, [place] [id number] [place] [address] [id number] Aug, Mixed hyperlipidemia E78.2 and Chronic kidney disease, unspecified N18.9 [place] [id number] [place] [address] [id number] Jul, Type 2 diabetes mellitus with diabetic neuropathy E11.40 ; Essential hypertension I10 and S/P coronary artery stent placement Z95.5 [address] [place] [address] [id number] Jul, 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 [place] [address] [id number] Jul, Diabetes type 2, uncontrolled E11.65 ; Essential hypertension I10 and 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 [place] [id number] [place] [address] [id number] Jul, [place] [id number] [place] [address] [id number] Jul, [place] [id number] [place] [address] [id number] Jul, [address] [id number] Jul, Chronic obstructive pulmonary disease, unspecified COPD type J44.9 [place] [id number] [place] [address] [id number] Jun, CKD (chronic kidney disease), stage 3 (moderate) N18.3 and Anemia, unspecified type D64.9 [place] [id number] [place] [address] [id number] Jun, Type 2 diabetes mellitus with diabetic neuropathy E11.40 ; Decreased GFR R94.4 ; CKD (chronic kidney disease), stage 3 (moderate) N18.3 and Decreased hemoglobin R71.0 [place] [id number] [place] [address] [id number] Jun, CKD (chronic kidney disease), stage 3 (moderate) N18.3 and Anemia, unspecified type D64.9 [place] [id number] [place] [address] [id number] Jun, Type 2 diabetes mellitus with diabetic neuropathy E11.40 ; Decreased GFR R94.4 and CKD (chronic kidney disease), stage 3 (moderate) N18.3 [place] [id number] [place] [address] [id number] Jun, Type 2 diabetes mellitus with diabetic neuropathy E11.40 and Essential hypertension I10 [place] [id number] [place] [address] [id number] Jun, [place] [id number] [place] [address] [id number] Jun, [place] [address] [id number] Jun, Type 2 diabetes mellitus with diabetic neuropathy E11.40 ; S/P coronary artery stent placement Z95.5 ; Chronic obstructive pulmonary disease, unspecified COPD type J44.9 ; Essential hypertension I10 ; GERD without esophagitis K21.9 ; Peripheral vascular disease I73.9 ; Mixed hyperlipidemia E78.2 and Hospital discharge follow-up Z09 [address] [id number] Jun, [address] [place] [address] [id number] May, Depression F32.9 and Hyperlipidemia, unspecified hyperlipidemia E78.5 [facility] [address] [address] May, [address] [id number] May, [address] [place] [address] [id number] May, Essential hypertension I10 ; Chronic pain syndrome G89.4 ; Pain in left shoulder M25.512 ; High risk medication use Z79.899 ; Chronic obstructive pulmonary disease, unspecified COPD type J44.9 ; S/P coronary artery stent placement Z95.5 ; Personal history of carotid stenosis Z86.79 ; Hyperlipidemia, unspecified hyperlipidemia E78.5 ; Decreased GFR R94.4 and Type 2 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 [address] [id number] May, Hemoglobin decreased R71.0 and Decreased GFR R94.4 [address] [place] [address] [id number] May, Hemoglobin decreased R71.0 and Decreased GFR R94.4 [address] [place] [address] [id number] May, [address] [id number] May, [place] [id number] [place] [address] [id number] Apr, [facility] [id number] [place] [address] [id number] Apr, Type 2 diabetes mellitus with foot [...] unspecified hyperlipidemia E78.5 and Essential hypertension I10 [facility] [id number] [place] [address] [id number] Apr, [facility] [id number] [place] [address] [id number] Mar, [facility] [id number] [place] [address] [id number] Mar, [facility] [address] [address] Mar, [facility] [address] [id number] [place] [address] [id number] Feb, [facility] [address] [id number] [place] [address] [id number] Feb, [facility] [address] [id number] [place] [address] [id number] Feb, [facility] [id number] [place] [address] [id number] Jan, Type 2 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 ; Hypercholesterolemia E78.0 ; Chronic pain syndrome G89.4 ; Pain in left shoulder M25.512 and High risk medication use Z79.899 [facility] [id number] [place] [address] [id number] Jan, [facility] [place] [id number] [place] [address] [id number] Jan, [facility] [address] [id number] [place] [address] [id number] December, [facility] [id number] [place] [id number] December, [facility] [id number] [place] [address] December, Diabetes type 2, uncontrolled E11.65 ; Type 2 diabetes mellitus with diabetic neuropathy E11.40 ; Peripheral vascular disease I73.9 ; 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 and 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 [facility] [place] [address] [id number] [id number] Nov, [facility] [place] [address] [id number] [place] [id number] Nov, [facility] [id number] [place] [address] [id number] Nov, [facility] [address] [id number] [place] [address] [id number] Nov, Right hip pain M25.551 [facility] [id number] [place] [address] [id number] Nov, [facility] [id number] [place] [address] 31683- 2546 Nov, [facility] [id number] [place] [address] [id number] Nov, Diabetes with neurological manifestations, type II or unspecified type, 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.60 [facility] [address] [id number] [place] [id number] Nov, [facility] [place] [id number] [id number] Nov, [facility] [place] [address] [id number] [place] [id number] Oct, Diabetes type 2, uncontrolled E11.65 ; Type 2 diabetes mellitus with diabetic neuropathy, unspecified E11.40 and Low back pain M54.5 [facility] [place] [address] [id number] [place] [id number] Oct, [facility] [place] [id number] [place] [address] [id number] Oct, [facility] [place] [address] [id number] [place] [id number] Oct, [facility] [place] [address] [id number] [place] [id number] Sep, [facility] [place] [address] [id number] [place] [id number] Sep, [facility] [address], [place] [address] Sep, [facility] [place] [address] [id number] [place] [id number] Sep, [facility] [place] [address] [id number] [place] [id number] Sep, [facility] [place] [id number] [place] [address] [id number] Aug, 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 [facility] [place] [id number] [place] [id number] Aug, [facility] [place] [id number] [place] [address] [id number] Aug, Allergic rhinitis due to pollen J30.1 [facility] [place] [address] [id number] [place] [id number] Jul, [facility] [id number] [place] [id number] Jul, [facility] [address] [place] [id number] [place] [id number] Jul, [facility] [id number] [place] [id number] Jun, [facility] [address] [place] [address] [id number] [place] [id number] Jun, Thumb tendonitis M77.8 and Ringing in ear, bilateral H93.13 [facility] [place] [address] [id number] [place] [id number] Jun, [facility] [id number] [place] [id number] May, [facility] [id number] [address] May, [place] [id number] [place] [address] 12099- 9030 May, Pre-op evaluation Z01.818 ; Encounter for immunization Z23 ; Type 2 diabetes mellitus with diabetic peripheral angiopathy without gangrene E11.51 ; Insulin long-term use Z79.4 ; Type 2 diabetes mellitus with foot ulcer E11.621 ; Peripheral vascular disease I73.9 ; Coronary artery disease involving chilkat coronary artery of chilkat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 ; S/P coronary artery stent placement Z95.5 ; Osteomyelitis of right foot, unspecified chronicity M86.9 and Chronic obstructive pulmonary disease, unspecified COPD type J44.9 [place] [id number] [place] [address] 37[address]- 1806 May, [place] [id number] [place] [address] [id number] May, [address] [id number] May, Diabetes type 2, uncontrolled E11.65 ; Encounter for immunization Z23 ; Osteopenia M85.80 and Allergic rhinitis due to pollen J30.1 [place] [id number] [place] [address] [id number] May, Lumbago 724.2 [place] [id number] [place] [address] [id number] Apr, [address] [id number] Apr, [place] [id number] [place] [address] [id number] Apr, [address] [id number] Apr, [place] [id number] [place] [address]- 7557 Mar, [address] [id number] Mar, [facility] [facility] [address] [id number] [place] [id number] Mar, [facility] [id number] [place] [address] [id number] Mar, [facility] [id number] [place] [id number] Mar, [facility] [id number] [place] [address] 96229- 2546 Mar, [facility] [id number] [place] [address] [id number] Mar, [facility] [place] [id number] [place] [address] [id number] Mar, Diabetes with neurological manifestations, type II or unspecified type, 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.60 and Severe obesity (BMI 35.0-35.9 with comorbidity) 278.01 [facility] [id number] [place] [address] [id number] Mar, [facility] [id number] [place] [address] 95014- 2546 Mar, [facility] [id number] [place] [address] 73463 2546 Feb, [facility] [place] [id number] [place] [id number] Feb, [facility] [place] [id number] [place] [id number] Feb, [facility] [place] [id number] [place] [id number] Feb, Diabetes with neurological manifestations, type II or unspecified type, 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.60 [facility] [place] [id number] [place] [id number] Feb, [facility] [id number] [place] [address] 16895- 2546 Feb, [facility] [id number] [place] [id number] Feb, [facility] [place] [id number] [place] [address] [id number] Feb, Follow up V67.9 ; Diabetes with neurological manifestations, type II or unspecified type, 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.60 and Congestive heart failure 428.0 [facility] [id number] [place] [id number] Jan, [facility] [place] [id number] [place] [address] [id number] Jan, [facility] [id number] [place] [address] [id number] Jan, [facility] [id number] [place] [address] [phone] December, Otitis media with effusion 381.4 ; Left arm numbness 782.0 and Osteoporosis 733.00 [facility] [place] [id number] [place] [address] [id number] December, [facility] [id number] [place] [address] [id number] Nov, [facility] [id number] [place] [address] [id number] Nov, Serous otitis media 381.4 and Lumbago 724.2 [facility] [id number] [place] [address] 25060- 6841 Nov, [facility] [id number] [place] [address] [id number]- 8677 Nov, [facility] [id number] [place] [id number] Oct, [facility] [id number] [place] [address] 26141- 2054 Oct, [facility] [id number] [place] [address] [id number] Oct, [facility] [id number] [place] [address] 88475- 9950 Oct, [facility] [id number] [place] [address] [id number] Oct, [facility] [id number] [place] [address] 08065- 5857 Oct, [facility] [place] [facility] [address] [facility] [id number][place] [address]- 9640 Sep, [facility] [place] [facility] [address] [facility] [id number][place] [address]- 0756 Sep, [facility] [address] [facility] [id number] [place] [id number] Sep, [facility] [place] [facility] [address] [facility] [id number][place] [address]- 4356 Sep, [facility] [address] [id number] [place] [id number] Aug, [facility] [place] [facility] [address] [facility] [id number][place] [address]- 7520 Aug, [facility] [address] [id number] [place] [id number] Aug, [facility] [place] [facility] [address] [facility] [id number][place] [address]- 6586 Aug, [facility] [address] [id number] [place] [id number] Jul, [facility] [place] [facility] [address] [facility] [id number][place] [address]- 0326 Jul, [facility] [address] [id number] [place] [id number] Jul, [facility] [place] [facility] [address] [facility] [id number][place] [address]- 2867 Jul, [facility] [address] [id number] [place] [id number] Jul, [facility] [place] [facility] [address] [facility] [id number][place] [address]- 9266 Jul, [facility] [address] [id number] [place] [id number] Jun, [facility] [place] [facility] [address] [facility] [id number][place] [address]- 9064 Jun, [facility] [address] [id number] [place] [id number] May, [facility] [place] [facility] [address] [facility] [id number][place] [address]- 2076 May, [facility] [address] [id number] [place] [id number] May, [facility] [place] [facility] [address] [facility] [id number][place] [address]- 4056 May, [facility] [address] [id number] [place] [id number] May, [facility] [place] [facility] [address] [facility] [id number][place] [address]- 5719 May, [facility] [address] [facility] [id number] [place] [id number] May, [facility] [address] [facility] [id number] [place] [id number] May, [facility] [place] [facility] [address] [facility] [id number][place] [address]- 6807 May, [facility] [place] [facility] [address] [facility] [id number][place] [address]- 2722 May, [facility] [address] [facility] [id number] [place] [id number] May, [facility] [place] [facility] [address] [facility] [id number][place] [address]- 6469 May, [facility] [place] [facility] [address] [facility] [id number] [address]- 4778 Apr, [facility] [address] [facility] [id number] [place] [id number] Apr, [facility] [place] [facility] [address] [facility] [id number] [address]- 7950 Apr, [facility] [address] [id number] [place] [id number] Apr, [facility] [address] [id number] [place] 017062975 Apr, [facility] [place] [facility] [address] [facility] [id number][place] [address]- 9662 Apr, [facility] [place] [facility] [address] [facility] [id number][place] [address]- 9160 Apr, [facility] [address] [facility] [id number] [place] [id number] Apr, [facility] [place] [facility] [address] [facility] [id number][place] [address]- 3841 Apr, [facility] [address] [id number] [place] [id number] Apr, [facility] [place] [facility] [address] [facility] [id number] [address]- 8142 Apr, [facility] [address] [facility] [id number] [place] [id number] Apr, [facility] [place] [facility] [address]00565100W[place], [place] [address]- 3469 Apr, [facility] [address] [facility] [id number] [place] [id number] Apr, [facility] [place] [facility] [address] [facility] [id number] [address]- 6307 Apr, [facility] [address] [id number] [place] 755476105 Apr, [facility] [place] [facility] [address] [facility] [id number] [address]- 7122 Apr, [facility] [address] [id number] [place] [id number] Apr, [facility] [place] [facility] [address] [facility] [id number][place] [address]- 8806 Apr, [facility] [address] [id number] [place] 052132580 Mar, [facility] [place] [facility] [address] [facility] [id number][place] [address]- 5621 Mar, [facility] [address] [id number] [place] 677271675 Mar, [facility] [address] [id number] [place] [id number] Mar, [facility] [place] [facility] [address] [id number] [place] [address]- 7566 Mar, [facility] [place] [facility] [address] [facility] [id number] [place] [address]- 2010 Mar, [facility] [address] [id number] [place] [id number] Mar, [facility] [place] [facility] [address] [id number] [place] [address]- 5938 Mar, [facility] [address] [id number] [place] [id number] Mar, [facility] [place] [facility] [address] [facility] [id number] [place] [address]- 4699 Mar, [facility] [address] [id number] [place] [id number] Mar, [facility] [place] [facility] [address] [facility] [id number][place] [address]- 1694 Mar, [facility] [address] [id number] [place] [id number] Mar, [facility] [place] [facility] [address] [facility] [id number][place] [address]- 4483 Mar, [facility] [address] [id number] [place] [id number] Mar, [facility] [place] [facility] [address] [facility] [id number][place] [address]- 6069 Mar, [facility] [address] [id number] [place] [id number] Mar, [facility] [place] [facility] [address] [facility] [id number] [place] [address]- 8906 Mar, [facility] [address] [id number] [place] [id number] Mar, [facility] [place] [facility] [address] [facility] [id number][place] [address]- 3185 Mar, [facility] [address] [id number] [place] [id number] Feb, [facility] [place] [facility] [address] [id number] [place] [address]- 3220 Feb, [facility] [address] [id number] [place] [id number] Feb, [facility] [place] [facility] [address] [id number] [place] [address]- 7889 Feb, [facility] [address] [id number] [place] [id number] Feb, [facility] [place] [facility] [address] [id number] [place] [address]- 4093 Feb, [facility] [address] [id number] [place] [id number] Feb, [facility] [place] [facility] [address] [facility] [id number] [place] [address]- 9219 Feb, [facility] [address] [id number] [place] [id number] Feb, [facility] [place] [facility] [address] [facility] [id number] [place] [address]- 7508 Feb, [facility] [address] [id number] [place] 420944237 Feb, [facility] [place] [facility] [address] [facility] [id number] [place] [address]- 7574 Feb, [facility] [address] [id number] [place] [id number] Feb, [facility] [place] [facility] [address] [id number] [place] [address]- 6146 Feb, [facility] [address] [id number] [place] [id number] Feb, [facility] [place] [facility] [address] [id number] [place] [address]- 8643 Feb, [facility] [address] [id number] [place] [id number] Feb, [facility] [place] [facility] [address] [id number] [place] [address]- 3153 Feb, [facility] [address] [id number] [place] 747802364 Feb, [facility] [address] [id number] [place] [id number] Feb, [facility] [place] [facility] [address] [id number] [place] [address]- 5314 Feb, [facility] [place] [facility] [address] [facility] [id number] [place] [address]- 4071 Feb, [facility] [address] [id number] [place] [id number] Feb, [facility] [place] [facility] [address] [facility] [id number] [place]- 1276 Feb, [facility] [address] [facility] [id number] [place] [id number] Feb, [facility] [place] [facility] [address] [facility] [id number][place] [address]- 2850 Feb, [facility] [address] [id number] [place] [id number] Feb, [facility] [place] [facility] [address] [facility] [id number][place] [address]- 9685 Feb, [facility] [address] [facility] [id number] [place] 324435752 Jan, [facility] [place] [facility] [address] [facility] [id number][place] [address]- 4525 Jan, [facility] [place] [facility] [address] [facility] [id number][place] [address]- 8081 Jan, [facility] [place] [facility] [address] [facility] [id number] [place] [address]- 5866 Jan, [facility] [place] [facility] [address] [facility] [id number][place] [address]- 8094 Jan, [facility] [place] [facility] [address] [facility] [id number][place] [address]- 0095 Jan, [facility] [address] [id number] [place] [id number] Jan, [facility] [place] [facility] [address] [id number] [place] [address]- 5813 Jan, [facility] [place] [facility] [address] [facility] [id number] [place] [address]- 3690 Jan, [facility] [place] [facility] [address] [facility] [id number] [place] [address]- 4895 Jan, [facility] [address] [id number] [place] [id number] Jan, [facility] [address] [id number] [place] [id number] Jan, [facility] [place] [facility] [address] [facility] [id number] [place] [address]- 7118 Jan, [facility] [place] [facility] [address] [facility] [id number] [place] [address]- 9707 Jan, [facility] [address] [id number] [place] [id number] Jan, [facility] [address] [id number] [place] [id number] Jan, [facility] [place] [facility] [address] [facility] [id number][place] [address]- 6788 Jan, [facility] [place] [facility] [address] [facility] [id number][place] [address]- 9614 Jan, [facility] [place] [facility] [address] [facility] [id number] [address]- 2743 Jan, [facility] [address] [id number] [place] 810413634 December, [facility] [place] [facility] [address] [facility] [id number] [place] [address]- 1348 December, [facility] [place] [facility] [address] [facility] [id number] [place] [address]- 2836 December, [facility] [address] [id number] [place] 419317290 December, [facility] [place] [facility] [address] [id number], [place] [address]- 2786 December, [facility] [address] [facility] [id number] [place] [id number] December, [facility] [place] [facility] [address] [facility] [id number][place] [address]- 6946 December, [facility] [address] [facility] [id number] [place] 954759246 December, [facility] [place] [facility] [address] [facility] [id number] [place]16 December, [facility] [address] [facility] [id number] [place] 178568079 Nov, [facility] [place] [facility] [address] [facility] [id number][place] [address]- 7356 Nov, [facility] [address] [facility] [id number] [place] 208092807 Nov, [facility] [place] [facility] [address] [facility] [id number] [place] [address]- 2101 Nov, [facility] [place] [facility] [address] [facility] [id number][place] [address]- 9236 Nov, [facility] [place] [facility] [address] [facility] [id number][place] [address]- 2776 Nov, [facility] [place] [facility] [address] [facility] [id number][place] [address]- 6274 Oct, [facility] [address] [facility] [id number] [place] [id number] Oct, [facility] [place] [facility] [address] [facility] [id number] [place] [address]- 7376 Oct, [facility] [address] [facility] [id number] [place] 066352776 Oct, [facility] [place] [facility] [address] [facility] [id number] [place] [address]- 4246 Oct, [facility] [address] [id number] [place] 590881676 Sep, [facility] [place] [facility] [address] [facility] [id number] [place] [address]- 1279 Sep, [facility] [address] [id number] [place] 414527413 Aug, [facility] [place] [facility] [address] [facility] [id number] [place] [address]- 8325 Aug, [facility] [address] [facility] [id number] [place] 917817048 Aug, [facility] [place] [facility] [address] [facility] [id number] [place] [address]- 5282 Aug, [facility] [place] [facility] [address] [facility] [id number] [place] [address]- 6603 Aug, [facility] [address] [facility] [id number] [place] [id number] Aug, [facility] [place] [facility] [address] [facility] [id number][place] [address]- 2121 Aug, [facility] [place] [facility] [address] [facility] [id number], [place] [address]- 2406 Aug, [facility] [address] [facility] [id number] [place] 047406265 Aug, [facility] [place] [facility] [address] [facility] [id number][place] [address]- 9336 Aug, [facility] [address] [facility] [id number] [place] 837172484 Jul, [facility] [place] [facility] [address] [facility] [id number][place] [address]- 0823 Jul, [facility] [address] [facility] [id number] [place] [id number] Jul, [facility] [place] [facility] [address] [facility] [id number][place] [address]- 6937 Jul, [facility] [address] [facility] [id number] [place] 626753726 Jul, [facility] [address] [facility] [id number][place] [address]- 2546 Jul, [facility] [address] [id number] [place] [id number] Jul, [facility] [address] [facility] [id number][place] [address]- 8535 Jul, [facility] [address] [id number] [place] [id number] Jun, [facility] [address] [facility] [id number] [place] [address]- 8705 Jun, [facility] [address] [id number] [place] 049050122 Jun, [facility] [address] [facility] [id number][place] [address]- 6170 Jun, [facility] [address] [id number], [place] [address]- 2224 Jun, [facility] [address] [facility] [id number][place] [address]- 5876 Jun, [facility] [address] [id number] [place] [id number] Apr, [facility] [address] [id number] [place] [id number] Mar, [facility] [address] [id number] [place] [id number] Mar, [facility] [address] [id number] [place] [id number] Feb, [facility] [place] [address] [id number] [place] [id number] Feb, [facility] [address] [id number] [place] [id number] Feb, [facility] [address] [id number] [place] [id number] December, [facility] [address] [id number] [place] [id number] December, [facility] [address] [id number], [place] [address] December, [facility] [address] [id number] [place] [id number] December, [facility] [address] [id number] [place] [id number] December, [facility] [address] [id number] [place] [id number] Nov, [facility] [address] [id number] [place] [address] Nov, [facility] [address] [id number] [place] [id number] Nov, [facility] [address] [id number] [place] [id number] Oct, [facility] [address] [id number] [place] [id number] Sep, [facility] [address] [id number] [place] [id number] Aug, [facility] [address] [facility] [id number], [place] [address] Aug, [facility] [address] [id number] [place] [id number] Aug, [facility] [address] [id number] [place] [id number] Jul, [facility] [address] [facility] [id number], [place] [address] Jul, [facility] [place] [address] [id number] [place] [id number] Jul, [facility] [address] [facility] [id number], [place] [address] Jul, [facility] [address] [id number] [place] [id number] Jun, [facility] [address] [facility] [id number], [place] [address] Jun, [facility] [address] [id number] [place] [id number] May, [facility] [address] [id number], [place] [address] May, [facility] [place] [address] [id number] [place] [id number] May, [facility] [address] [facility] [id number], [place] [address] May, [facility] [address] [id number] [place] [id number] Apr, [facility] [address] [id number] [place] [id number] Apr, [facility] [address] [id number] [place] [id number] Mar, [facility] [address] [id number] [place] [id number] Mar, [facility] [address] [id number] [place] [id number] Feb, [facility] [address] [id number] [place] [id number] Feb, [facility] [address] [id number] [place] [id number] Jan, [facility] [address] [id number] [place] [address] Jan, [facility] [address] [id number] [place] [id number] Jan, [facility] [address] [id number] [place] [id number] Jan, [facility] [address] [id number] [place] [id number] December, [facility] [address] [id number] [place] [id number] December, [facility] [address] [facility] [id number], [place] [address] Nov, [facility] [address] [id number] [place] [address] Nov, [facility] [place] [address] [id number] [place] [id number] Nov, [facility] [place] [address] [id number] [place] [address] Nov, [facility] [address] [id number] [place] [id number] Nov, [facility] [address] [facility] [id number], [place] [address] Oct, [facility] [address] [facility] [id number], [place] [address] Oct, [facility] [address] [id number] [place] [id number] Oct, [facility] [address] [id number] [place] [id number] Oct, [facility] [address] [id number] [place] [id number] Oct, [facility] [place] [address] [id number] [place] [id number] Oct, [facility] [address] [id number] [place] [id number] Oct, [facility] [address] [id number] [place] [address] Oct, [facility] [address] [id number] [place] [id number] Oct, [facility] [address] [facility] [id number], [place] [address] Oct, [facility] [address] [id number] [place] [id number] Sep, [facility] [address] [id number] [place] [id number] Sep, [facility] [address] [id number] [place] [id number] Aug, [facility] [address] [id number] [place] [id number] Aug, [facility] [address] [facility] [id number][place] [address] Jul, [facility] [id number], [place] [address] Jul, [facility] [id number], [place] [address] Jul, [facility] [address] [id number] [address] Jul, [facility] [id number] [address] Jul, [facility] [id number] [address] Jul, [facility] [id number] [place] [id number] Jul, [facility] [id number] [address] Jul, [facility] [id number] [place] [address] Jul, [facility] [id number] [address] Jul, [facility] [id number] [address] Jul, [facility] [id number] [address] Jul, [facility] [id number] [address] Jul, [facility] [id number] [address] Jul, IMMUNIZATIONS No Known Immunizations SOCIAL HISTORY Never Assessed REASON FOR VISIT phone call PLAN OF CARE VITAL SIGNS MEDICATIONS Medication Instructions Dosage Frequency Start Date End Date Duration [facility] - Orally Once a day 1 capsule 24h Aug, Active RESULTS No Results PROCEDURES No Known procedures INSTRUCTIONS MEDICATIONS ADMINISTERED No Known Medications MEDICAL (GENERAL) HISTORY Type Description Date Medical History peripheral vascular disease s/p angioplasty w/ stent R leg Medical History hypertension Medical 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 Secondary to ATN from [facility]- Creatinine 4.3 Medical History HX of dry [...] in the future. Medical History 05/26/17 noted, penitentiary has ended and they feel he is [...] artery ([place]) 10/2011 Surgical History cataract-lens implants-bilateral ([place]) 05/2014 Surgical History Left eye retinal eye repair [facility]) 06/2014 Surgical History amputation, toe-right third toe ([place]) 2013 Surgical History Right eye retinal eye repair ([facility]) 09/2014 Surgical History heart cath with stent [...]
--- OUTSIDE RECORDS SUMMARY | 2018-06-20 10:09 | XMS REPORT ---
Author Author SATINDER GOOD [facility] Address [address] [place] [address] Care Team Providers Care Singe Machine Operator Name Role Phone SATINDER GOOD Unavailable PROBLEMS Type Condition ICD9-CM Code VEK79-ER Code Onset Dates Condition Status SNOMED Code Problem S/P coronary artery stent placement Z95.5 Active 917033793 Problem Type 2 diabetes mellitus with diabetic peripheral angiopathy without gangrene E11.51 Active 976960764 Problem Depression F32.9 Active 64404985 Problem Type 2 diabetes mellitus with diabetic neuropathy E11.40 Active 17134529 Problem Hyperlipidemia, unspecified hyperlipidemia E78.5 Active 61048386 Problem 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 Active 1141008617874 Problem Peripheral vascular disease I73.9 Active 611902716 Problem Chronic obstructive pulmonary disease, unspecified COPD type J44.9 Active 27437073 Problem Osteomyelitis of right foot, unspecified chronicity M86.9 Active 44102892 Problem CKD (chronic kidney disease) stage 3, GFR 30-59 ml/min N18.3 Active 009664244 Problem Type 2 diabetes mellitus with diabetic retinopathy, macular edema presence unspecified, with unspecified retinopathy severity E11.319 Active 16050541 Problem GERD without esophagitis K21.9 Active 715457610 Problem Bilateral low back pain without sciatica M54.5 Active 024757362 Problem Mixed hyperlipidemia E78.2 Active 085049944 Problem Frequent falls R29.6 Active 609267653 Problem Chronic kidney disease, unspecified N18.9 Active 504418396 Problem Other chronic pain G89.29 Active 86426797 Problem Chronic diarrhea K52.9 Active 670012426 Problem Hypercholesterolemia E78.0 Active 13676782 Problem 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 Active 643415724 Problem 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 Active 092809982 Problem Obesity (BMI 30.0-34.9) E66.9 Active 211787073229835 Problem Comprehensive diabetic foot examination, type 2 DM, encounter for E11.9 Active 56058258 Problem Uses walker Z99.89 Active 398095334 Problem Aphasia R47.01 Active 06217008 Problem Insulin long-term use Z79.4 Active 952808819 Problem Fatigue, unspecified type R53.83 Active 70110657 Problem Type 2 diabetes mellitus with foot ulcer E11.621 Active 642826579 Problem Pain in left shoulder M25.512 Active 42226476 Problem Type 2 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 Active 241275716 Problem Diabetes type 2, uncontrolled E11.65 Active 947129311 Problem Personal history of carotid stenosis Z86.79 Active 698290265 Problem Essential hypertension I10 Active 86823878 Problem CKD (chronic kidney disease), stage 3 (moderate) N18.3 Active 464934825 Problem Chronic pain syndrome G89.4 Active 696741053 Problem High risk medication use Z79.899 Active 328020380 ALLERGIES No Known Allergies ENCOUNTERS Encounter Location Date Diagnosis [place] [address] [id number] December, Medicare annual wellness visit, subsequent Z00.[address] [id number] Nov, Other chronic pain G89.[address] [id number] Oct, [place] [id number] [place] [address] [id number] Oct, [address] [id number] Oct, Other chronic pain G89.29 [place] [address] [id number] Sep, Other chronic pain G89.29 [place] [address] [id number] Aug, CKD (chronic kidney disease), stage 3 (moderate) N18.3 ; Anemia, unspecified type D64.9 and Dilated pore of Ly L70.8 [facility] [place] [address] [place] [id number] Aug, Other chronic pain G89.29 ; Pain in left shoulder M25.512 ; High risk medication use Z79.899 ; Uses walker Z99.89 ; Diabetes type 2, uncontrolled E11.65 and Depression F32.9 [facility] [id number] [place] [address] [id number] Aug, Chronic diarrhea K52.9 [place] [id number] [place] [address] [id number] Aug, Chronic diarrhea K52.9 ; Type 2 diabetes mellitus with diabetic neuropathy E11.40 ; Diabetes type 2, uncontrolled E11.65 ; Insulin long-term use Z79.4 ; Chronic obstructive pulmonary disease, unspecified COPD type J44.9 ; Chronic pain syndrome G89.4 ; Pain in left shoulder M25.512 ; Uses walker Z99.89 ; S/P coronary artery stent placement Z95.5 ; Mixed hyperlipidemia E78.2 and Essential hypertension I10 [place] [id number] [place] [address] [id number] Aug, [place] [id number] [place] [address] [id number] Jul, Diabetes type 2, uncontrolled E11.65 [place] [id number] [place] [address] [id number] Jul, Diabetes type 2, uncontrolled E11.65 ; Type 2 diabetes mellitus with diabetic neuropathy E11.40 ; Insulin long-term use Z79.4 and Chronic obstructive pulmonary disease, unspecified COPD type J44.9 [facility] [id number] [place] [address] [id number] Jun, [facility] [id number] [place] [address] [id number] Jun, Essential hypertension I10 [place] [id number] [place] [address] [id number] Jun, Essential hypertension I10 [facility] [address] [place] [id number] [place] [address] [id number] Jun, Type 2 diabetes mellitus with diabetic neuropathy E11.40 ; Type 2 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 ; S/P coronary artery stent placement Z95.5 ; Obesity (BMI 30.0-34.9) E66.9 ; Mixed hyperlipidemia E78.2 ; Frequent falls R29.6 ; Chronic obstructive pulmonary disease, unspecified COPD type J44.9 ; Essential hypertension I10 ; Insulin long-term use Z79.4 and High risk medication use Z79.8[address] [place] [address] [id number] May, Diarrhea, unspecified type R19.7 ; Type 2 diabetes mellitus with diabetic neuropathy E11.40 ; Chronic obstructive pulmonary disease, unspecified COPD type J44.9 ; S/P coronary artery stent placement Z95.5 ; High risk medication use Z79.899 ; Essential hypertension I10 ; Encounter for administration of vaccine Z23 and Encounter for immunization Z23 [address] [id number] [id number] May, Chronic obstructive pulmonary disease, unspecified COPD type J44.9 [address] [place] [address] [id number] May, Type 2 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 ; Encounter for immunization Z23 ; Needs flu shot Z23 ; Comprehensive diabetic foot examination, type 2 DM, encounter for E11.9 and Obesity (BMI 30.0-34.9) E66.9 [address] [place] [address] [id number] May, [address] [place] [address] [id number] Apr, [place] [id number] [place] [address] [id number] Apr, Essential hypertension I10 and Aphasia R47.01 [place] [address] [place] [address] [id number] Apr, [place] [address] [place] [address] [id number] Apr, Type 2 diabetes mellitus with diabetic neuropathy E11.40 ; Frequent falls R29.6 ; Essential hypertension I10 ; S/P coronary artery stent placement Z95.5 ; High risk medication use Z79.899 ; Hyperlipidemia, unspecified hyperlipidemia E78.5 ; CKD (chronic kidney disease), stage 3 (moderate) N18.3 ; Pain in left shoulder M25.512 and Chronic obstructive pulmonary disease, unspecified COPD type J44.9 [facility] [address] [place] [id number] [place] [address] [id number] Mar, [facility] [place] [address] [place] [id number] [place] [address] [id number] Mar, Type 2 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 ; Leg wound, left, initial encounter S81.802A ; Hx of shoulder surgery Z98.890 ; Acute pain of left shoulder M25.512 and Fall, initial encounter W19.XXXA [facility] [place] [address] [id number] Feb, Follow-up exam Z09 ; Hx of shoulder surgery Z98.890 ; Acute pain of left shoulder M25.512 ; Essential hypertension I10 and Leg wound, left, initial encounter S81.802A [facility] [address] [place] [id number] [place] [address] [id number] Feb, [facility] [address] [place] [id number] [place] [address] [id number] Feb, [facility] [address] [place] [id number] [place] [address] [id number] Feb, Chronic obstructive pulmonary disease, unspecified COPD type J44.9 [facility] [address] [place] [id number] [place] [address] [id number] Feb, [place] [address] [address] [place] [id number] [place] [address] [id number] Jan, Generalized weakness R53.1 ; Exertional shortness of breath R06.02 and Fungal rash of trunk B36.9 [facility] [place] [address] [place] [id number] [place] [address] [id number] Jan, [facility] [place] [address] [place] [id number] [place] [address] [id number] Jan, [facility] [place] [address] [place] [id number] [place] [address] [id number] Jan, [facility] [address] [place] [id number] [place] [address] [id number] Jan, [address] [id number] [id number] December, High risk medication use Z79.899 [address]00565[place] [id number] December, Type 2 diabetes mellitus with diabetic neuropathy E11.[address] [id number][place] [id number] December, High risk medication use Z79.899 [address] [place] [address] [id number] Nov, Diabetes type 2, uncontrolled E11.65 [address] [place] [address] [id number] Nov, Medicare annual wellness visit, initial Z00.00 ; Bilateral low back pain without sciatica M54.5 ; Pain in left shoulder M25.512 ; Chronic pain syndrome G89.4 ; Type 2 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 ; High risk medication use Z79.899 and Encounter for immunization Z23 [address] [place] [address] [id number] Nov, Type 2 diabetes mellitus with diabetic neuropathy E11.40 ; 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 and CKD (chronic kidney disease), stage 3 (moderate) N18.[address] [id number] [id number] Oct, Type 2 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 ; Chronic pain syndrome G89.4 ; Chronic obstructive pulmonary disease, unspecified COPD type J44.9 ; Chronic kidney disease, unspecified N18.9 and Rash R21 [place] [address] [facility] [address] [id number] [id number] Oct, Type 2 diabetes mellitus with diabetic neuropathy E11.[address] [id number] [id number] Oct, Rash R21 and Impetigo L01.[address] [id number][place] [id number] Oct, Chronic pain syndrome G89.4 [facility] [id number][place] [id number] Oct, [facility] [id number] [place] [address] [id number] Sep, Sebaceous cyst L72.3 [facility] [id number][place] [id number] Sep, Sebaceous cyst L72.3 [facility] [address] [place] [id number] [place] [address] [id number] Sep, Chronic pain syndrome G89.4 ; Pain in left shoulder M25.512 and Effusion of olecranon bursa, left M25.422 [facility] [address] [id number] [address] Aug, [facility] [id number] [place] [address] [id number] Aug, [facility] [address] [place] [id number] [place] [address] [id number] Aug, Mixed hyperlipidemia E78.2 and Chronic kidney disease, unspecified N18.9 [facility] [address] [place] [id number] [place] [address] [id number] Jul, Type 2 diabetes mellitus with diabetic neuropathy E11.40 ; Essential hypertension I10 and S/P coronary artery stent placement Z95.5 [facility] [id number] [place] [address] [id number] Jul, 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 [place] [id number] [place] [address] [id number] Jul, Diabetes type 2, uncontrolled E11.65 ; Essential hypertension I10 and 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 [place] [id number] [place] [address] [id number] Jul, [facility] [id number] [place] [address] [id number] Jul, [facility] [id number] [place] [address] [id number] Jul, [facility] [address] [place] [id number] [place] [address] [id number] Jul, Chronic obstructive pulmonary disease, unspecified COPD type J44.9 [address] [place] [address] [id number] Jun, CKD (chronic kidney disease), stage 3 (moderate) N18.3 and Anemia, unspecified type D64.9 [address] [place] [address] [id number] Jun, Type 2 diabetes mellitus with diabetic neuropathy E11.40 ; Decreased GFR R94.4 ; CKD (chronic kidney disease), stage 3 (moderate) N18.3 and Decreased hemoglobin R71.0 [place] [address] [place] [address] [id number] Jun, CKD (chronic kidney disease), stage 3 (moderate) N18.3 and Anemia, unspecified type D64.9 [address] [place] [address] [id number] Jun, Type 2 diabetes mellitus with diabetic neuropathy E11.40 ; Decreased GFR R94.4 and CKD (chronic kidney disease), stage 3 (moderate) N18.3 [address] [place] [address] [id number] Jun, Type 2 diabetes mellitus with diabetic neuropathy E11.40 and Essential hypertension I10 [address] [place] [address] [id number] Jun, [place] [id number] [place] [address] [id number] Jun, [place] [address] [place] [address] [id number] Jun, Type 2 diabetes mellitus with diabetic neuropathy E11.40 ; S/P coronary artery stent placement Z95.5 ; Chronic obstructive pulmonary disease, unspecified COPD type J44.9 ; Essential hypertension I10 ; GERD without esophagitis K21.9 ; Peripheral vascular disease I73.9 ; Mixed hyperlipidemia E78.2 and Hospital discharge follow-up Z09 [place] [id number] [place] [address] [id number] Jun, [address] [id number] May, Depression F32.9 and Hyperlipidemia, unspecified hyperlipidemia E78.5 [facility] [address]005[address]100[place] [address] May, [address] [place] [address] [id number] May, [place] [id number] [place] [address] [id number] May, Essential hypertension I10 ; Chronic pain syndrome G89.4 ; Pain in left shoulder M25.512 ; High risk medication use Z79.899 ; Chronic obstructive pulmonary disease, unspecified COPD type J44.9 ; S/P coronary artery stent placement Z95.5 ; Personal history of carotid stenosis Z86.79 ; Hyperlipidemia, unspecified hyperlipidemia E78.5 ; Decreased GFR R94.4 and Type 2 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 [place] [address] [id number] May, Hemoglobin decreased R71.0 and Decreased GFR R94.4 [address] [place] [address] [id number] May, Hemoglobin decreased R71.0 and Decreased GFR R94.4 [place] [id number] [place] [address] [id number] May, [address] [place] [address] [id number] May, [place] [id number] [place] [address] [id number] Apr, [place] [address] [place] [address] [id number] Apr, Type 2 diabetes mellitus with foot [...] unspecified hyperlipidemia E78.5 and Essential hypertension I10 [facility] [id number][place] [id number] Apr, [facility] [address] [place] [id number] [place] [address] [id number] Mar, [facility] [id number] [place] [address] [id number] Mar, [facility] [address] [place] [id number] [place] [address] 81134 2546 Mar, [facility] [address] [place] [id number] [place] [address] [id number] Feb, [facility] [address] [place] [id number] [place] [address] [id number] Feb, [facility] [address] [place] [id number] [place] [address] [id number] Feb, [facility] [address] [place] [id number] [place] [address] [id number] Jan, Type 2 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 ; Hypercholesterolemia E78.0 ; Chronic pain syndrome G89.4 ; Pain in left shoulder M25.512 and High risk medication use Z79.899 [facility] [id number] [place] [address] [id number] Jan, [facility] [address] [place] [id number] [place] [address] [id number] Jan, [facility] [id number] [place] [address] [id number] December, [facility] [address] [place] [id number] [place] [address] [id number] December, [facility] [address]100[place], [place] [address] December, Diabetes type 2, uncontrolled E11.65 ; Type 2 diabetes mellitus with diabetic neuropathy E11.40 ; Peripheral vascular disease I73.9 ; 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 and 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 [facility] [id number] [place] [address] [id number] Nov, [facility] [address] [id number] [id number] Nov, [facility] [place] [address] [id number] [place] [id number] Nov, [facility] [place] [address] [id number] [id number] Nov, Right hip pain M25.551 [facility] [address] [place] [id number] [place] [address] 048[address]- 7790 Nov, [facility] [address] [place] [id number] [place] [address] 99425- 2546 Nov, [facility] [id number] [place] [address] [id number] Nov, Diabetes with neurological manifestations, type II or unspecified type, 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.60 [facility] [place] [id number] [place] [address] [id number] Nov, [facility] [place] [id number] [place] [address] [id number] Nov, [facility] [address] [id number] [id number] Oct, Diabetes type 2, uncontrolled E11.65 ; Type 2 diabetes mellitus with diabetic neuropathy, unspecified E11.40 and Low back pain M54.5 [facility] [place] [address] [id number][place] [id number] Oct, [facility] [place] [address] [id number], [place] [id number] Oct, [facility] [place] [address] [id number][place] [id number] Oct, [facility] [place] [address] [id number][place] [id number] Sep, [facility] [address] [place] [id number] [place] [address] [id number] Sep, [facility] [id number] [place] [address] 96182- 2546 Sep, [facility] [id number] [place] [address] [id number] Sep, [facility] [address] [facility] [id number], [place] [id number] Sep, [facility] [id number] [place] [address] [id number] Aug, 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 [facility] [id number], [place] [id number] Aug, [facility] [id number] [place] [address] [id number] Aug, Allergic rhinitis due to pollen J30.[address] [id number], [place] [id number] Jul, [facility] [id number] [place] [address] [id number] Jul, [facility] [id number] [place] [address] [id number] Jul, [place] [address] [id number] [place] [address] [id number] Jun, [facility] [id number] [place] [address] [id number] Jun, Thumb tendonitis M77.8 and Ringing in ear, bilateral H93.[address] [id number] [id number] Jun, [facility] [address] [place] [id number] [id number] May, [facility] [id number] [place] [address] 28[address]- 2546 May, [facility] [address] [place] [address] 42227 2542 May, Pre-op evaluation Z01.818 ; Encounter for immunization Z23 ; Type 2 diabetes mellitus with diabetic peripheral angiopathy without gangrene E11.51 ; Insulin long-term use Z79.4 ; Type 2 diabetes mellitus with foot ulcer E11.621 ; Peripheral vascular disease I73.9 ; 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 ; S/P coronary artery stent placement Z95.5 ; Osteomyelitis of right foot, unspecified chronicity M86.9 and Chronic obstructive pulmonary disease, unspecified COPD type J44.9 [facility] [address] [address] May, [facility] [id number] [place] [address] [id number] May, [facility] [address] [id number] May, Diabetes type 2, uncontrolled E11.65 ; Encounter for immunization Z23 ; Osteopenia M85.80 and Allergic rhinitis due to pollen J30.1 [facility] [address] [id number] May, Lumbago 724.2 [facility] [id number] [place] [address] [id number] Apr, [address] [id number] Apr, [facility] [address] [id number] [place] [address] [id number] Apr, [facility] [id number] [place] [address] [id number] Apr, [facility] [id number] [place] [address] 22895 254 Mar, [facility] [id number] [place] [address] [id number] Mar, [facility] [id number] [place] [address] [id number] Mar, [facility] [id number] [place] [address] [id number] Mar, [facility] [address] [id number] Mar, [facility] [id number] [place] [address] [id number] [phone] Mar, [facility] [id number] [place] [address] [id number] Mar, [facility] [id number] [id number] Mar, Diabetes with neurological manifestations, type II or unspecified type, 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.60 and Severe obesity (BMI 35.0-35.9 with comorbidity) 278.01 [facility] [address] [id number][place] [id number] Mar, [facility] [address] [address]- 2546 Mar, [facility] [id number] [place] [address] 25234- 2546 Feb, [facility] [id number] [place] [address] [id number] Feb, [facility] [id number][place] [id number] Feb, [facility] [id number] [place] [address] [id number] Feb, Diabetes with neurological manifestations, type II or unspecified type, 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.60 [facility] [address] [id number] [place] [id number] Feb, [facility] [id number] [place] [address] 82355- 2546 Feb, [facility] [id number][place] [id number] Feb, [facility] [id number][place] [id number] Feb, Follow up V67.9 ; Diabetes with neurological manifestations, type II or unspecified type, 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.60 and Congestive heart failure 428.0 [facility] [address] [id number], [place] [id number] Jan, [facility] [address] [id number][place] [id number] Jan, [facility] [address] [id number][place] [id number] Jan, [facility] [address] [id number][place] [id number] December, Otitis media with effusion 381.4 ; Left arm numbness 782.0 and Osteoporosis 733.00 [facility] [id number], [place] [id number] December, [facility] [id number][place] [id number] Nov, [facility] [id number][place] [id number] Nov, Serous otitis media 381.4 and Lumbago 724.2 [facility] [id number] [place] [address] 04803- 0886 Nov, [facility] [id number] [place] [address] 16073- 9076 Nov, [facility] [id number], [place] [id number] Oct, [facility] [address] [place] [address] 42405- 3436 Oct, [facility] [id number], [place] [id number] Oct, [facility] [id number] [place] [address] 83906- 2399 Oct, [facility] [id number], [place] [id number] Oct, [facility] [id number], [place] [address]- 3026 Oct, [facility] [place] [facility] [id number], [place] [address]- 2516 Sep, [facility] [place] [facility] [id number], [place] [address]- 6616 Sep, [facility] [address] [id number][place] [id number] Sep, [facility] [address]00565100[place], [place] [address]- 4296 Sep, [facility] [address] [facility] [id number] [place] [id number] Aug, [facility] [place] [facility] [address] [facility] [id number], [place] [address]- 1343 Aug, [facility] [address] [facility] [id number], [place] [id number] Aug, [facility] [place] [facility] [address] [facility] [id number], [place] [address]- 5725 Aug, [facility] [address] [facility] [id number], [place] [id number] Jul, [facility] [place] [facility] [address] [facility] [id number], [place] [address]- 5596 Jul, [facility] [address] [facility] [id number], [place] [id number] Jul, [facility] [place] [facility] [address]00565100[place], [place] [address]- 2783 Jul, [facility] [address] [facility] [id number], [place] [id number] Jul, [facility] [place] [facility] [address] [facility] [id number], [place] 660992- 6872 Jul, [facility] [address] [facility] [id number], [place] [id number] Jun, [facility] [place] [facility] [address] [facility] [id number], [place] [address]- 6821 Jun, [facility] [address] [facility] [id number], [place] [id number] May, [facility] [place] [facility] [address] [facility] [id number], [place] [address]- 2618 May, [facility] [address] [facility] [id number], [place] [id number] May, [facility] [place] [facility] [address] [facility] [id number], [place] [address]- 1591 May, [facility] [address] [facility] [id number], [place] [id number] May, [facility] [place] [facility] [address] [facility] [id number], [place] [address]- 0879 May, [facility] [address] [id number], [place] [id number] May, [facility] [address] [facility] [id number], [place] [id number] May, [facility] [place] [facility] [address] [facility] [id number], [place] [address]- 5755 May, [facility] [place] [facility] [address] [facility] [id number], [place] [address]- 9604 May, [facility] [address] [facility] [id number], [place] [id number] May, [facility] [place] [facility] [address] [facility] [id number], [place] [address]- 2782 May, [facility] [place] [facility] [address]00565100[place], [place] [address]- 6952 Apr, [facility] [address] [facility] [id number], [place] [id number] Apr, [facility] [place] [facility] [address] [facility] [id number], [place] [address]- 2214 Apr, [facility] [address] [facility] [id number], [place] [id number] Apr, [facility] [address] [facility] [id number], [place] [id number] Apr, [facility] [place] [facility] [address] [facility] [id number], [place] [address]- 1283 Apr, [facility] [place] [facility] [address] [facility] [id number], [place] [address]- 2807 Apr, [facility] [address] [facility] [id number], [place] [id number] Apr, [facility] [place] [facility] [address] [facility] [id number], [place] [address]- 4932 Apr, [facility] [address] [facility] [id number], [place] [id number] Apr, [facility] [place] [facility] [address] [facility] [id number], [place] [address]- 4063 Apr, [facility] [address] [facility] [id number], [place] [id number] Apr, [facility] [place] [facility] [address] [facility] [id number], [place] [address]- 5644 Apr, [facility] [address] [facility] [id number], [place] [id number] Apr, [facility] [place] [facility] [address] [facility] [id number], [place] [address]- 9190 Apr, [facility] [address] [facility] [id number], [place] [id number] Apr, [facility] [place] [facility] [address]00565100[place], [place] [address]- 1433 Apr, [facility] [address] [facility] [id number], [place] [id number] Apr, [facility] [place] [facility] [address]00565100[place], [place] [address]- 4707 Apr, [facility] [address] [facility] [id number], [place] [id number] Mar, [facility] [place] [facility] [address]00565100[place], [place] [address]- 2991 Mar, [facility] [address] [id number], [place] [id number] Mar, [facility] [address] [facility] [id number], [place] [id number] Mar, [facility] [place] [facility] [address] [facility] [id number], [place] [address]- 2166 Mar, [facility] [place] [facility] [address] [facility] [id number], [place] [address]- 0707 Mar, [facility] [address] [facility] [id number], [place] [id number] Mar, [facility] [place] [facility] [address] [facility] [id number], [place] [address]- 2233 Mar, [facility] [address] [id number] [place] [id number] Mar, [facility] [place] [facility] [address] [id number] [place] [address]- 5905 Mar, [facility] [address] [id number] [place] [id number] Mar, [facility] [place] [facility] [address] [facility] [id number] [place] [address]- 7468 Mar, [facility] [address] [id number] [place] [id number] Mar, [facility] [place] [facility] [address] [facility] [id number] [place] [address]- 2867 Mar, [facility] [address] [id number] [place] [id number] Mar, [facility] [place] [facility] [address] [facility] [id number], [place] [address]- 5167 Mar, [facility] [address] [id number] [place] [id number] Mar, [facility] [place] [facility] [address] [facility] [id number], [place] [address]- 1166 Mar, [facility] [address] [facility] [id number] [place] [id number] Mar, [facility] [place] [facility] [address] [facility] [id number], [place] [address]- 1613 Mar, [facility] [address] [id number] [place] [id number] Feb, [facility] [place] [facility] [address] [id number] [place] [address]- 4505 Feb, [facility] [address] [id number] [place] [id number] Feb, [facility] [place] [facility] [address] [id number] [place] [address]- 0713 Feb, [facility] [address] [id number] [place] [id number] Feb, [facility] [place] [facility] [address] [id number] [place] [address]- 2785 Feb, [facility] [address] [id number] [place] [id number] Feb, [facility] [place] [facility] [address] [id number] [place] [address]- 0514 Feb, [facility] [address] [id number] [place] 032858854 Feb, [facility] [place] [facility] [address] [id number] [place] [address]- 6919 Feb, [facility] [address] [id number] [place] 991198795 Feb, [facility] [place] [facility] [address] [facility] [id number] [place] [address]- 2936 Feb, [facility] [address] [id number] [place] [id number] Feb, [facility] [place] [facility] [address] [facility] [id number] [place] [address]- 1743 Feb, [facility] [address] [id number] [place] [id number] Feb, [facility] [place] [facility] [address] [facility] [id number] [place] [address]- 7537 Feb, [facility] [address] [id number] [place] [id number] Feb, [facility] [place] [facility] [address] [facility] [id number] [place] [address]- 4925 Feb, [facility] [address] [id number] [place] [id number] Feb, [facility] [address] [id number] [place] [id number] Feb, [facility] [place] [facility] [address] [facility] [id number] [place] [address]- 2253 Feb, [facility] [place] [facility] [address] [facility] [id number] [place] [address]- 9509 Feb, [facility] [address] [id number] [place] [id number] Feb, [facility] [place] [facility] [address] [id number] [place] [address]- 9143 Feb, [facility] [address] [id number] [place] [id number] Feb, [facility] [place] [facility] [address] [id number] [place] [address]- 4214 Feb, [facility] [address] [id number] [place] [id number] Feb, [facility] [place] [facility] [address] [id number] [place] [address]- 6095 Feb, [facility] [address] [id number] [place] [id number] Jan, [facility] [place] [facility] [address] [id number] [place] [address]- 1322 Jan, [facility] [place] [facility] [address] [id number] [place] [address]- 3254 Jan, [facility] [place] [facility] [address] [id number] [place] [address]- 2229 Jan, [facility] [place] [facility] [address] [facility] [id number] [place] [address]- 0945 Jan, [facility] [place] [facility] [address] [id number] [place] [address]- 6647 Jan, [facility] [address] [id number] [place] [id number] Jan, [facility] [place] [facility] [address] [id number] [place] [address]- 8165 Jan, [facility] [place] [facility] [address] [facility] [id number] [place] 79282999- 2431 Jan, [facility] [place] [facility] [address] [id number] [place] [address]- 2940 Jan, [facility] [address] [id number] [place] [id number] Jan, [facility] [address] [id number] [place] 389421776 Jan, [facility] [place] [facility] [address] [id number] [place] [address]- 6536 Jan, [facility] [place] [facility] [address] [facility] [id number] [place] [address] 2546 Jan, [facility] [address] [id number] [place] [id number] Jan, [facility] [address] [id number] [place] [id number] Jan, [facility] [place] [facility] [address] [facility] [id number] [place] [address]- 1406 Jan, [facility] [place] [facility] [address] [facility] [id number] [place] [address]- 7346 Jan, [facility] [place] [facility] [address] [facility] [id number], [place] [address]- 5905 Jan, [facility] [address] [facility] [id number] [place] 132980106 December, [facility] [place] [facility] [address] [facility] [id number], [place] [address]- 6626 December, [facility] [place] [facility] [address] [facility] [id number], [place] [address]- 4456 December, [facility] [address] [id number][place] [id number] December, [facility] [place] [facility] [address] [id number], [place] [address]- 7856 December, [facility] [address] [facility] [id number] [place] [id number] December, [facility] [place] [facility] [address] [facility] [id number] [place] [address]- 2546 December, [facility] [address] [facility] [id number], [place] 850661639 December, [facility] [place] [facility] [address] [facility] [id number], [place] [address]- 1166 December, [facility] [address] [facility] [id number], [place] [id number] Nov, [facility] [place] [facility] [address] [facility] [id number] [place] [address]- 0536 Nov, [facility] [address] [facility] [id number], [place] [id number] Nov, [facility] [place] [facility] [address] [facility] [id number] [place] [address]- 8419 Nov, [facility] [place] [facility] [address] [facility] [id number] [place] [address]- 6076 Nov, [facility] [place] [facility] [address] [facility] [id number] [place] [address]- 3534 Nov, [facility] [place] [facility] [id number] [place] [address]- 8878 Oct, [facility] [id number][place] 729185246 Oct, [facility] [place] [facility] [address]00565100[place], [place] [address]- 2571 Oct, [facility] [id number], [place] [id number] Oct, [facility] [place] [facility] [address] [id number], [place] [address]- 2986 Oct, [facility] [address] [facility] [id number], [place] [id number] Sep, [facility] [place] [facility] [address] [facility] [id number], [place] [address]- 7796 Sep, [facility] [address] [facility] [id number][place] 639191697 Aug, [facility] [place] [facility] [address] [facility] [id number], [place] [address]- 9436 Aug, [facility] [address] [id number][place] [id number] Aug, [facility] [place] [facility] [address] [facility] [id number] [place] [address]- 2857 Aug, [facility] [place] [facility] [address] [facility] [id number], [place] [address]- 7923 Aug, [facility] [address] [facility] [id number] [place] [id number] Aug, [facility] [place] [facility] [address] [facility] [id number], [place] [address]- 7907 Aug, [facility] [place] [facility] [address] [facility] [id number] [place] [address]- 7954 Aug, [facility] [address] [facility] [id number] [place] [id number] Aug, [facility] [place] [facility] [address] [id number], [place] [address]- 2817 Aug, [facility] [address] [id number][place] 055210263 Jul, [facility] [place] [facility] [address] [facility] [id number], [place] [address]- 1537 Jul, [facility] [address] [facility] [id number][place] 047425868 Jul, [facility] [place] [facility] [address] [facility] [id number], [place] [address]- 5840 Jul, [facility] [address] [facility] [id number] [id number] Jul, [facility] [place] [facility] [address] [facility] [id number], [place] [address] Jul, [facility] [address] [facility] [id number] [id number] Jul, [facility] [address] [facility] [id number], [place] [address] Jul, [facility] [address] [facility] [id number] [place] [id number] Jun, [facility] [address] [facility] [id number], [place] [address] Jun, [facility] [place] [address] [id number] [place] [id number] Jun, [facility] [address] [facility] [id number], [place] [address] Jun, [facility] [address] [facility] [id number], [place] [address] Jun, [facility] [address] [facility] [id number], [place] [address] Jun, [facility] [place] [address] [id number] [place] [id number] Apr, [facility] [address] [id number] [place] [id number] Mar, [facility] [address] [id number] [place] [id number] Mar, [facility] [address] [id number] [place] [id number] Feb, [facility] [address] [id number] [place] [id number] Feb, [facility] [address] [id number] [place] [id number] Feb, [facility] [address] [id number] [place] [id number] December, [facility] [address] [id number] [place] [id number] December, [facility] [address] [facility] [id number], [place] [address] December, [facility] [address] [id number] [place] [id number] December, [facility] [place] [address] [id number] [place] [id number] December, [facility] [address] [id number] [place] [id number] Nov, [facility] [place] [address] [id number] [place] [id number] Nov, [facility] [address] [id number] [place] [id number] Nov, [facility] [place] [address] [id number] [place] [id number] Oct, [facility] [address] [id number] [place] [id number] Sep, [facility] [address] [id number] [place] [id number] Aug, [facility] [address] [facility] [id number], [place] [address] Aug, [facility] [address] [id number] [place] [id number] Aug, [facility] [address] [id number] [place] [id number] Jul, [facility] [id number] [address] Jul, [facility] [address] [id number] [id number] Jul, [facility] [address] [facility] [id number][place] [address] Jul, [facility] [address] [facility] [id number] [id number] Jun, [facility] [address] [facility] [id number], [place] [address] Jun, [facility] [address] [id number] [id number] May, [facility] [address] [facility] [id number], [place] [address] May, [facility] [address] [id number] [id number] May, [facility] [address] [facility] [id number], [place] [address] May, [facility] [address] [id number] [id number] Apr, [facility] [address] [id number] [id number] Apr, [facility] [place] [address] [id number] [place] [id number] Mar, [facility] [place] [address] [id number] [place] [id number] Mar, [facility] [place] [address] [id number] [place] [id number] Feb, [facility] [place] [address] [id number] [place] [id number] Feb, [facility] [place] [address] [id number] [place] [id number] Jan, [facility] [place] [address] [id number] [place] [id number] Jan, [facility] [place] [address] [id number] [place] [id number] Jan, [facility] [address] [id number] [place] [id number] Jan, [facility] [place] [address] [id number] [place] [id number] December, [facility] [address] [id number] [place] [id number] December, [facility] [address] [facility] [id number], [place] [address] Nov, [facility] [address] [id number] [place] [id number] Nov, [facility] [address] [id number] [place] [id number] Nov, [facility] [address] [id number] [place] [id number] Nov, [facility] [address] [id number] [place] [id number] Nov, [facility] [address] [facility] [id number], [place] [address] Oct, [facility] [address] [facility] [id number], [place] [address] Oct, [facility] [address] [id number] [place] [id number] Oct, [facility] [facility] [address] [id number] [place] [id number] Oct, [facility] [place] [address] [id number] [place] [id number] Oct, [facility] [place] [address] [id number] [place] [id number] Oct, [facility] [place] [address] [id number] [place] [id number] Oct, [facility] [place] [address] [id number] [place] [id number] Oct, [facility] [place] [address] [id number] [place] [id number] Oct, [facility] [address] [id number] [address] Oct, [facility] [place] [address] [id number] [place] [id number] Sep, [facility] [place] [address] [id number] [place] [id number] Sep, [facility] [place] [address] [id number] [place] [id number] Aug, [facility] [place] [address] [id number] [place] [id number] Aug, [facility] [id number], [place] [address] Jul, [facility] [id number] [place] [address] Jul, [facility] [id number] [address] Jul, [facility] [id number] [place] [id number] Jul, [facility] [id number] [place] [phone] Jul, [facility] [id number] [place] [phone] Jul, [facility] [address] [facility] [id number] [address] Jul, [facility] [address] [facility] [id number], [place] [address] Jul, [facility] [address] [id number], [place] [address] Jul, [facility] [address] [facility] [id number], [place] [address] Jul, [facility] [address] [id number], [place] [address] Jul, [facility] [id number], [place] [address] Jul, [facility] [id number], [place] [address] Jul, [facility] [address] [id number], [place] [address] Jul, IMMUNIZATIONS No Known Immunizations SOCIAL HISTORY Never Assessed REASON FOR VISIT Melia (care-worker) is back with him, states he has had 2 episodes last Wednesday and Wednesday, where he is walking and freezes and then can hear but can't comprehend what you are telling him. Went to ER on Wednesday for diarrhea, this has resolved. bam Onofre PLAN OF CARE Activity Details Follow Up 4 Weeks Reason:CH[facility] DM VITAL SIGNS Height 69 in 2017-05-24 Weight 221.6 lbs 2017-05-24 Temperature 98.6 degrees Fahrenheit 2017-05-24 Heart Rate 84 bpm 2017-05-24 Respiratory Rate 16 2017-05-24 BMI 32.72 kg/m2 2017-05-24 Blood pressure systolic 94 mmHg 2017-05-24 Blood pressure diastolic 62 mmHg 2017-05-24 MEDICATIONS Medication Instructions Dosage Frequency Start Date End Date Duration Status Cetirizine HCl 10 mg Orally Once a day 1 tablet as needed 24h Nov, Active ProAir HFA 90 mcg/actuation Inhalation 4 times a day 2 puffs as needed 6h Active Domingo Contour Test - TEST BLOOD SUGAR (4) TIMES DAILY. Active Atorvastatin Calcium 40 MG TAKE ONE (1) TABLET BY MOUTH DAILY... Active Victoza 18 mg/3ml Subcutaneous Once a day 1.8 mg 24h Active Escitalopram Oxalate 10 MG TAKE ONE (1) TABLET BY MOUTH DAILY... Active Baclofen 10 mg Orally 2 times a day 1 tablet with food or milk 12h Active Folic Acid 1 MG Orally Once a day 1 tablet 24h 20 Jul, 2016 Active Triamcinolone Acetonide 0.5 % Externally Twice a day 1 application to affected area 12h 15 Oct, 2016 Active Carvedilol 3.125 MG Orally 2 times a day 12h Active Mupirocin 2 % Externally Three times a day 1 application to affected area 8h 14 days Active Megestrol Acetate 40 mg Orally Once a day at HS 1 tablet Active Lancets - subcutaneously 3 times a day as directed 8h Jun, Active Nitroglycerin 0.4 MG Active Aspirin Adult Low Strength 81 MG Orally Once a day 1 tablet 24h Active Hydrocodone-Acetaminophen 325-7.5 MG Orally once per day 1 tablet as needed 22 days Active Walker - Rolator walker with seat and hand brakes Jan, Active Symbicort 160-4.5 mcg/act Inhalation Twice a day (morning and evening) inhale 2 puffs Active UltiCare Micro Pen Dundas 32G X 4 MM USE TWICE DAILY. Active Levemir Flexpen 100 UNIT/ML Subcutaneous 2 times a day 35 units 12h Active Calcium + D3 600-200 MG-UNIT Orally 2 times a day 1 tablet 12h Active Prilosec 20 MG TAKE ONE (1) CAPSULE BY MOUTH ONCE DAILY... Active RESULTS No Results PROCEDURES Procedure Date Ordered Result Body Site [facility] VISIT ESTABLISHED PATIENT May 24, 2017 INSTRUCTIONS MEDICATIONS ADMINISTERED No Known Medications [...] in the future. Medical History 05/26/17 noted, alf has ended and they feel he is [...] Surgical History Left eye retinal eye repair ([facility]) 06/2014 Surgical History amputation, toe-right third toe ([facility]) 2013 Surgical History Right eye retinal eye repair ([facility]) 09/2014 Surgical History heart cath with [...]
--- OUTSIDE RECORDS SUMMARY | 2018-06-20 10:10 | XMS REPORT ---
Author Author SATINDER GOOD [facility] Address [address] [place] [address] Care Team Providers Care Chronometer Tester Name Role Phone SATINDER GOOD Unavailable PROBLEMS Type Condition ICD9-CM Code DAI14-LA Code Onset Dates Condition Status SNOMED Code Problem Chronic obstructive pulmonary disease, unspecified COPD type J44.9 Active 69366127 Problem Peripheral vascular disease I73.9 Active 772721054 Problem Type 2 diabetes mellitus with diabetic neuropathy E11.40 Active 71702438 Problem S/P coronary artery stent placement Z95.5 Active 006329727 Problem Osteomyelitis of right foot, unspecified chronicity M86.9 Active 71299046 Problem Type 2 diabetes mellitus with diabetic retinopathy, macular edema presence unspecified, with unspecified retinopathy severity E11.319 Active 33961859 Problem Bilateral low back pain without sciatica M54.5 Active 566201892 Problem 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 Active 652171620 Problem 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 Active 192032842 Problem Frequent falls R29.6 Active 164405367 Problem Hypercholesterolemia E78.0 Active 02950717 Problem Comprehensive diabetic foot examination, type 2 DM, encounter for E11.9 Active 88109180 Problem Type 2 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 Active 066430843 Problem Obesity (BMI 30.0-34.9) E66.9 Active 475371419385483 Problem Uses walker Z99.89 Active 618001623 Problem Aphasia R47.01 Active 16878467 Problem Functional diarrhea K59.1 Active 15473540 Problem Fecal urgency R15.2 Active 33464581 Problem Fatigue, unspecified type R53.83 Active 24969828 Problem High risk medication use Z79.899 Active 101777592 Problem Diabetes type 2, uncontrolled E11.65 Active 646463461 Problem Personal history of carotid stenosis Z86.79 Active 892032417 Problem Other chronic pain G89.29 Active 86344046 Problem Chronic diarrhea K52.9 Active 414058308 Problem Full incontinence of feces R15.9 Active 293388712139403 Problem Mixed stress and urge urinary incontinence N39.46 Active 946397932 Problem Hyperlipidemia, unspecified hyperlipidemia E78.5 Active 81304408 Problem Essential hypertension I10 Active 92491200 Problem Coronary artery disease involving big [place] coronary artery of [place]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 Active 7173445088667 Problem CKD (chronic kidney disease), stage 3 (moderate) N18.3 Active 907075964 Problem Insulin long-term use Z79.4 Active 514561393 Problem Chronic pain syndrome G89.4 Active 236903186 Problem Depression F32.9 Active 34814499 Problem Pain in left shoulder M25.512 Active 35177377 Problem Type 2 diabetes mellitus with foot ulcer E11.621 Active 988438232 Problem Mixed hyperlipidemia E78.2 Active 381006990 Problem Type 2 diabetes mellitus with diabetic peripheral angiopathy without gangrene E11.51 Active 842456038 Problem Chronic kidney disease, unspecified N18.9 Active 357296687 Problem CKD (chronic kidney disease) stage 3, GFR 30-59 ml/min N18.3 Active 721647518 Problem GERD without esophagitis K21.9 Active 643271532 ALLERGIES No Information ENCOUNTERS Encounter Location Date Diagnosis [address] [id number] December, Medicare annual wellness visit, subsequent Z00.[address] [id number] December, Mixed stress and urge urinary incontinence N39.46 ; Full incontinence of feces R15.9 ; Fecal urgency R15.2 ; Functional diarrhea K59.1 and Type 2 diabetes mellitus with diabetic neuropathy E11.[address] [place] [address] [id number] Nov, Other chronic pain G89.29 [place] [id number] [place] [address] [id number] Oct, [place] [id number] [place] [address] [id number] Oct, [place] [id number] [place] [address] [id number] Oct, Other chronic pain G89.29 [address] [place] [address] [id number] Sep, Other chronic pain G89.29 [address] [place] [address] [id number] Aug, CKD (chronic kidney disease), stage 3 (moderate) N18.3 ; Anemia, unspecified type D64.9 and Dilated pore of Ly L70.8 [address] [place] [address] [id number] Aug, Other chronic pain G89.29 ; Pain in left shoulder M25.512 ; High risk medication use Z79.899 ; Uses walker Z99.89 ; Diabetes type 2, uncontrolled E11.65 and Depression F32.9 [address] [place] [address] [id number] Aug, Chronic diarrhea K52.9 [address] [place] [address] [id number] Aug, Chronic diarrhea K52.9 ; Type 2 diabetes mellitus with diabetic neuropathy E11.40 ; Diabetes type 2, uncontrolled E11.65 ; Insulin long-term use Z79.4 ; Chronic obstructive pulmonary disease, unspecified COPD type J44.9 ; Chronic pain syndrome G89.4 ; Pain in left shoulder M25.512 ; Uses walker Z99.89 ; S/P coronary artery stent placement Z95.5 ; Mixed hyperlipidemia E78.2 and Essential hypertension I10 [address] [id number] Aug, [address] [place] [address] [id number] Jul, Diabetes type 2, uncontrolled E11.65 [place] [id number] [place] [address] [id number] Jul, Diabetes type 2, uncontrolled E11.65 ; Type 2 diabetes mellitus with diabetic neuropathy E11.40 ; Insulin long-term use Z79.4 and Chronic obstructive pulmonary disease, unspecified COPD type J44.9 [address] [place] [address] [id number] Jun, [address] [id number] [id number] Jun, Essential hypertension I10 [address] [id number] Jun, Essential hypertension I10 [place] [id number][place] [id number] Jun, Type 2 diabetes mellitus with diabetic neuropathy E11.40 ; Type 2 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 ; S/P coronary artery stent placement Z95.5 ; Obesity (BMI 30.0-34.9) E66.9 ; Mixed hyperlipidemia E78.2 ; Frequent falls R29.6 ; Chronic obstructive pulmonary disease, unspecified COPD type J44.9 ; Essential hypertension I10 ; Insulin long-term use Z79.4 and High risk medication use Z79.899 [address] [id number] May, Diarrhea, unspecified type R19.7 ; Type 2 diabetes mellitus with diabetic neuropathy E11.40 ; Chronic obstructive pulmonary disease, unspecified COPD type J44.9 ; S/P coronary artery stent placement Z95.5 ; High risk medication use Z79.899 ; Essential hypertension I10 ; Encounter for administration of vaccine Z23 and Encounter for immunization Z23 [address] [id number] [id number] May, Chronic obstructive pulmonary disease, unspecified COPD type J44.[address] [id number] [id number] May, Type 2 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 ; Encounter for immunization Z23 ; Needs flu shot Z23 ; Comprehensive diabetic foot examination, type 2 DM, encounter for E11.9 and Obesity (BMI 30.0-34.9) E66.9 [address] [id number] May, [address] [id number][place] [id number] Apr, [address] [id number] Apr, Essential hypertension I10 and Aphasia R47.[address] [place] [address] [id number] Apr, [place] [id number] [place] [address] [id number] Apr, Type 2 diabetes mellitus with diabetic neuropathy E11.40 ; Frequent falls R29.6 ; Essential hypertension I10 ; S/P coronary artery stent placement Z95.5 ; High risk medication use Z79.899 ; Hyperlipidemia, unspecified hyperlipidemia E78.5 ; CKD (chronic kidney disease), stage 3 (moderate) N18.3 ; Pain in left shoulder M25.512 and Chronic obstructive pulmonary disease, unspecified COPD type J44.9 [place] [id number] [place] [address] [id number] Mar, [place] [id number] [place] [address] [id number] Mar, Type 2 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 ; Leg wound, left, initial encounter S81.802A ; Hx of shoulder surgery Z98.890 ; Acute pain of left shoulder M25.512 and Fall, initial encounter W19.XXXA [place] [address] [place] [address] [id number] Feb, Follow-up exam Z09 ; Hx of shoulder surgery Z98.890 ; Acute pain of left shoulder M25.512 ; Essential hypertension I10 and Leg wound, left, initial encounter S81.802A [place] [id number] [place] [address] [id number] Feb, [address] [place] [address] [id number] Feb, [address] [place] [address] [id number] Feb, Chronic obstructive pulmonary disease, unspecified COPD type J44.9 [address] [place] [address] [id number] Feb, [place] [id number] [place] [address] [id number] Jan, Generalized weakness R53.1 ; Exertional shortness of breath R06.02 and Fungal rash of trunk B36.9 [facility] [id number] [place] [address] [id number] Jan, [facility] [place] [id number] [place] [address] [id number] Jan, [facility] [id number] [place] [address] [id number] Jan, [facility] [place] [id number] [place] [address] [id number] Jan, [facility] [address] [place] [id number] [place] [address] [id number] December, High risk medication use Z79.899 [facility] [address] [place] [id number] [place] [address] [id number] December, Type 2 diabetes mellitus with diabetic neuropathy E11.40 [facility] [address] [place] [id number] [place] [address] [id number] December, High risk medication use Z79.899 [facility] [address] [place] [id number] [place] [address] [id number] Nov, Diabetes type 2, uncontrolled E11.65 [place] [address] [place] [id number] [place] [address] [id number] Nov, Medicare annual wellness visit, initial Z00.00 ; Bilateral low back pain without sciatica M54.5 ; Pain in left shoulder M25.512 ; Chronic pain syndrome G89.4 ; Type 2 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 ; High risk medication use Z79.899 and Encounter for immunization Z23 [facility] [id number] [place] [address] [id number] Nov, Type 2 diabetes mellitus with diabetic neuropathy E11.40 ; Coronary artery disease involving big lagoon coronary artery of big lag[place]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 and CKD (chronic kidney disease), stage 3 (moderate) N18.3 [facility] [id number] [place] [address] [id number] Oct, Type 2 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 ; Chronic pain syndrome G89.4 ; Chronic obstructive pulmonary disease, unspecified COPD type J44.9 ; Chronic kidney disease, unspecified N18.9 and Rash R21 [address] [id number] Oct, Type 2 diabetes mellitus with diabetic neuropathy E11.40 [place] [id number] [place] [address] [id number] Oct, Rash R21 and Impetigo L01.00 [place] [address] [place] [address] [id number] Oct, Chronic pain syndrome G89.4 [place] [address] [place] [address] [id number] Oct, [address] [id number] Sep, Sebaceous cyst L72.3 [place] [address] [place] [address] [id number] Sep, Sebaceous cyst L72.3 [place] [address] [place] [address] [id number] Sep, Chronic pain syndrome G89.4 ; Pain in left shoulder M25.512 and Effusion of olecranon bursa, left M25.422 [facility] [address] [id number] Aug, [address] [place] [address] [id number] Aug, [place] [id number] [place] [address] [id number] Aug, Mixed hyperlipidemia E78.2 and Chronic kidney disease, unspecified N18.9 [address] [place] [address] [id number] Jul, Type 2 diabetes mellitus with diabetic neuropathy E11.40 ; Essential hypertension I10 and S/P coronary artery stent placement Z95.5 [place] [id number] [place] [address] [id number] Jul, 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 [place] [address] [place] [address] [id number] Jul, Diabetes type 2, uncontrolled E11.65 ; Essential hypertension I10 and 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 [place] [address] [place] [address] [id number] Jul, [address] [id number] Jul, [place] [id number] [place] [address] [id number] Jul, [address] [id number] Jul, Chronic obstructive pulmonary disease, unspecified COPD type J44.9 [place] [id number] [place] [address] [id number] Jun, CKD (chronic kidney disease), stage 3 (moderate) N18.3 and Anemia, unspecified type D64.9 [place] [address] [place] [address] [id number] Jun, Type 2 diabetes mellitus with diabetic neuropathy E11.40 ; Decreased GFR R94.4 ; CKD (chronic kidney disease), stage 3 (moderate) N18.3 and Decreased hemoglobin R71.0 [place] [address] [place] [address] [id number] Jun, CKD (chronic kidney disease), stage 3 (moderate) N18.3 and Anemia, unspecified type D64.9 [place] [address] [place] [address] [id number] Jun, Type 2 diabetes mellitus with diabetic neuropathy E11.40 ; Decreased GFR R94.4 and CKD (chronic kidney disease), stage 3 (moderate) N18.3 [place] [address] [place] [address] [id number] Jun, Type 2 diabetes mellitus with diabetic neuropathy E11.40 and Essential hypertension I10 [place] [id number] [place] [address] [id number] Jun, [place] [address] [place] [address] [id number] Jun, [place] [id number] [place] [address] [id number] Jun, Type 2 diabetes mellitus with diabetic neuropathy E11.40 ; S/P coronary artery stent placement Z95.5 ; Chronic obstructive pulmonary disease, unspecified COPD type J44.9 ; Essential hypertension I10 ; GERD without esophagitis K21.9 ; Peripheral vascular disease I73.9 ; Mixed hyperlipidemia E78.2 and Hospital discharge follow-up Z09 [facility] [address] [id number] Jun, [place] [id number] [place] [address] [id number] May, Depression F32.9 and Hyperlipidemia, unspecified hyperlipidemia E78.5 [facility] [address]100[place] [address] May, [address] [place] [address] [id number] May, [place] [id number] [place] [address] [id number] May, Essential hypertension I10 ; Chronic pain syndrome G89.4 ; Pain in left shoulder M25.512 ; High risk medication use Z79.899 ; Chronic obstructive pulmonary disease, unspecified COPD type J44.9 ; S/P coronary artery stent placement Z95.5 ; Personal history of carotid stenosis Z86.79 ; Hyperlipidemia, unspecified hyperlipidemia E78.5 ; Decreased GFR R94.4 and Type 2 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 [address] [place] [address] [id number] May, Hemoglobin decreased R71.0 and Decreased GFR R94.4 [address] [place] [address] [id number] May, Hemoglobin decreased R71.0 and Decreased GFR R94.4 [place] [id number] [place] [address] [id number] May, [address] [place] [address] [id number] May, [address] [place] [address] [id number] Apr, [place] [id number] [place] [address] [id number] Apr, Type 2 diabetes mellitus with foot [...] unspecified hyperlipidemia E78.5 and Essential hypertension I10 [facility] [address] [place] [id number] [place] [address] [id number] Apr, [facility] [place] [address] [place] [id number] [place] [address] [id number] Mar, [facility] [place] [address] [place] [id number] [place] [address] [id number] Mar, [facility] [address] [phone] Mar, [facility] [place] [address] [place] [id number] [place] [address] [id number] Feb, [facility] [place] [address] [place] [id number] [place] [address] [id number] Feb, [facility] [place] [address] [place] [id number] [place] [address] [id number] Feb, [facility] [place] [address] [place] [id number] [place] [address] [id number] Jan, Type 2 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 ; Hypercholesterolemia E78.0 ; Chronic pain syndrome G89.4 ; Pain in left shoulder M25.512 and High risk medication use Z79.899 [facility] [place] [id number] [place] [address] [id number] Jan, [facility] [place] [address] [place] [id number] [place] [address] [id number] Jan, [facility] [place] [address] [place] [id number] [place] [address] [id number] December, [facility] [address] [place] [id number] [place] [address] [id number] December, [facility] [address] [place] [id number] [place] [phone] December, Diabetes type 2, uncontrolled E11.65 ; Type 2 diabetes mellitus with diabetic neuropathy E11.40 ; Peripheral vascular disease I73.9 ; 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 and 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 [facility] [id number] [place] [address] [id number] Nov, [facility] [address] [id number] [place] [address] [id number] Nov, [facility] [id number] [place] [address] [id number] Nov, [facility] [address] [place] [id number] [place] [address] [id number] Nov, Right hip pain M25.551 [facility] [address] [place] [id number] [place] [address] [phone]- [phone] Nov, [facility] [address] [place] [id number] [place] [address] [phone]- [phone] Nov, [facility] [address] [place] [id number] [place] [address] [id number] Nov, Diabetes with neurological manifestations, type II or unspecified type, 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.60 [facility] [id number] [place] [address] [id number] Nov, [facility] [address] [place] [id number] [place] [address] [id number] Nov, [facility] [address] [id number] [id number] Oct, Diabetes type 2, uncontrolled E11.65 ; Type 2 diabetes mellitus with diabetic neuropathy, unspecified E11.40 and Low back pain M54.5 [facility] [id number] [place] [address] [id number] Oct, [facility] [address] [id number] [id number] Oct, [facility] [address] [id number], [place] [id number] Oct, [facility] [place] [id number][place] [id number] Sep, [facility] [place] [id number] [place] [address] [id number] Sep, [facility] [address] [id number] Sep, [facility] [place] [address] [place] [id number] [place] [address] [id number] Sep, [facility] [place] [id number] [place] [address] [id number] Sep, [facility] [place] [address] [place] [id number] [place] [address] [id number] Aug, 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 [facility] [id number] [place] [address] [id number] Aug, [facility] [place] [address] [place] [id number] [place] [address] [id number] Aug, Allergic rhinitis due to pollen J30.1 [facility] [place] [address] [id number] [id number] Jul, [facility] [id number] [place] [address] [id number] Jul, [facility] [id number] [place] [address] [id number] Jul, [facility] [id number] [place] [address] [id number] Jun, [facility] [place] [id number], [place] [id number] Jun, Thumb tendonitis M77.8 and Ringing in ear, bilateral H93.13 [facility] [place] [address] [id number] [id number] Jun, [facility] [place] [id number], [place] [id number] May, [facility] [address] [address] May, [place] [address] [address] May, Pre-op evaluation Z01.818 ; Encounter for immunization Z23 ; Type 2 diabetes mellitus with diabetic peripheral angiopathy without gangrene E11.51 ; Insulin long-term use Z79.4 ; Type 2 diabetes mellitus with foot ulcer E11.621 ; Peripheral vascular disease I73.9 ; Coronary artery disease involving [place] coronary artery of [place]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 ; S/P coronary artery stent placement Z95.5 ; Osteomyelitis of right foot, unspecified chronicity M86.9 and Chronic obstructive pulmonary disease, unspecified COPD type J44.9 [place] [address] [place] [id number] [place] [address] [phone] May, [place] [id number] [place] [address] [id number] May, [address] [id number] May, Diabetes type 2, uncontrolled E11.65 ; Encounter for immunization Z23 ; Osteopenia M85.80 and Allergic rhinitis due to pollen J30.1 [facility] [address] [place] [id number] [place] [address] [id number] May, Lumbago 724.2 [place] [id number] [place] [address] [id number] Apr, [address] [id number] Apr, [facility] [address] [place] [id number] [place] [address] [id number] Apr, [place] [id number] [place] [address] [id number] Apr, [place] [address] [place] [id number] [place] [address] [phone] Mar, [facility] [address] [place] [id number] [place] [address] [id number] Mar, [address] [id number] Mar, [facility] [address] [id number] [place] [id number] Mar, [facility] [address] [id number][place] [id number] Mar, [facility] [address] [place] [id number] [place] [address] [phone] Mar, [facility] [id number] [place] [address] [id number] Mar, [facility] [id number][place] [id number] Mar, Diabetes with neurological manifestations, type II or unspecified type, 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.60 and Severe obesity (BMI 35.0-35.9 with comorbidity) 278.01 [facility] [place] [id number][place] [phone] Mar, [facility] [address] [place] [id number] [place] [address] [phone] Mar, [facility] [address] [place] [address] [phone] Feb, [facility] [place] [id number], [place] [id number] Feb, [facility] [id number], [place] [id number] Feb, [facility] [id number], [place] [id number] Feb, Diabetes with neurological manifestations, type II or unspecified type, 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.60 [facility] [id number][place] [id number] Feb, [facility] [id number] [place] [address] 44027 2546 Feb, [facility] [id number], [place] [id number] Feb, [facility] [id number][place] [id number] Feb, Follow up V67.9 ; Diabetes with neurological manifestations, type II or unspecified type, 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.60 and Congestive heart failure 428.0 [facility] [id number] [place] [address] [id number] Jan, [facility] [place] [id number] [place] [address] [id number] Jan, [facility] [place] [id number] [place] [address] [id number] Jan, [facility] [place] [id number] [place] [address] [id number] December, Otitis media with effusion 381.4 ; Left arm numbness 782.0 and Osteoporosis 733.00 [facility] [place] [id number] [place] [address] [id number] December, [facility] [place] [id number] [place] [address] [id number] Nov, [facility] [place] [id number] [place] [address] [id number] Nov, Serous otitis media 381.4 and Lumbago 724.2 [facility] [id number] [place] [address] 10089- 8997 Nov, [facility] [id number] [place] [address] 47624- 2830 Nov, [facility] [place] [id number] [place] [address] [id number] Oct, [facility] [id number] [place] [address] 50947- 4356 Oct, [facility] [id number] [place] [address] [id number] Oct, [facility] [id number] [place] [address] 52739- 9257 Oct, [facility] [place] [id number] [place] [address] [id number] Oct, [facility] [id number] [place] [address] 64544- 8534 Oct, [facility] [place] [facility] [address] [facility] [id number] [address]- 9026 Sep, [facility] [place] [facility] [address] [facility] [id number][place] [address]- 4907 Sep, [facility] [address] [facility] [id number], [place] [id number] Sep, [facility] [place] [facility] [address] [facility] [id number][place] [address]- 1170 Sep, [facility] [address] [facility] [id number], [place] [id number] Aug, [facility] [place] [facility] [address] [facility] [id number][place] [address]- 0146 Aug, [facility] [address] [facility] [id number][place] [id number] Aug, [facility] [address]00565100[place], [place] [address]- 9223 Aug, [facility] [address] [facility] [id number], [place] [id number] Jul, [facility] [place] [facility] [address] [facility] [id number][place] [address]- 3166 Jul, [facility] [address] [facility] [id number][place] [id number] Jul, [facility] [place] [facility] [address] [facility] [id number][place] [address]- 9230 Jul, [facility] [address] [facility] [id number], [place] [id number] Jul, [facility] [place] [facility] [address] [facility] [id number][place] [address]- 9588 Jul, [facility] [address] [facility] [id number], [place] [id number] Jun, [facility] [place] [facility] [address] [facility] [id number][place] [address]- 4397 Jun, [facility] [address] [facility] [id number], [place] [id number] May, [facility] [place] [facility] [address] [facility] [id number][place] [address]- 0885 May, [facility] [address] [id number] [place] [id number] May, [facility] [place] [facility] [address] [facility] [id number][place] [address]- 1826 May, [facility] [address] [facility] [id number], [place] [id number] May, [facility] [place] [facility] [address] [facility] [id number][place] [address]- 2026 May, [facility] [address] [id number], [place] [id number] May, [facility] [address] [facility] [id number], [place] [id number] May, [facility] [place] [facility] [address] [facility] [id number][place] [address]- 6584 May, [facility] [place] [facility] [address] [facility] [id number][place] [address]- 7752 May, [facility] [address] [facility] [id number], [place] [id number] May, [facility] [place] [facility] [address] [facility] [id number][place] [address]- 2682 May, [facility] [place] [facility] [address] [facility] [id number][place] [address]- 4041 Apr, [facility] [address] [facility] [id number], [place] [id number] Apr, [facility] [place] [facility] [address] [facility] [id number] [address]- 9295 Apr, [facility] [address] [id number], [place] [id number] Apr, [facility] [address] [facility] [id number], [place] [id number] Apr, [facility] [place] [facility] [address] [facility] [id number][place] [address]- 0352 Apr, [facility] [place] [facility] [address] [facility] [id number] [address]- 2823 Apr, [facility] [address] [id number] [place] [id number] Apr, [facility] [place] [facility] [address] [facility] [id number] [address]- 4348 Apr, [facility] [address] [id number] [place] [id number] Apr, [facility] [place] [facility] [address] [facility] [id number][place] [address]- 2016 Apr, [facility] [address] [id number] [place] [id number] Apr, [facility] [place] [facility] [address] [facility] [id number] [address]- 6995 Apr, [facility] [address] [facility] [id number] [place] [id number] Apr, [facility] [place] [facility] [address] [facility] [id number][place] [address]- 9592 Apr, [facility] [address] [facility] [id number], [place] [id number] Apr, [facility] [place] [facility] [address] [facility] [id number][place] [address]- 6878 Apr, [facility] [address] [id number], [place] [id number] Apr, [facility] [place] [facility] [address] [facility] [id number][place] [address]- 7634 Apr, [facility] [address] [id number] [place] [id number] Mar, [facility] [place] [facility] [address] [facility] [id number], [place] 59760641- 0572 Mar, [facility] [address] [id number], [place] [id number] Mar, [facility] [address] [id number], [place] [id number] Mar, [facility] [place] [facility] [address] [id number] [place] [address]- 8226 Mar, [facility] [place] [facility] [address] [facility] [id number] [place] [address]- 5815 Mar, [facility] [address] [id number] [place] [id number] Mar, [facility] [place] [facility] [address] [facility] [id number] [place] [address]- 8198 Mar, [facility] [address] [id number] [place] [id number] Mar, [facility] [place] [facility] [address] [id number] [place] [address]- 7778 Mar, [facility] [address] [id number] [place] [id number] Mar, [facility] [place] [facility] [address] [facility] [id number] [place] [address]- 8763 Mar, [facility] [address] [id number] [place] [id number] Mar, [facility] [place] [facility] [address] [facility] [id number] [place] [address]- 9163 Mar, [facility] [address] [id number] [place] [id number] Mar, [facility] [place] [facility] [address] [facility] [id number][place] [address]- 5385 Mar, [facility] [address] [id number] [place] [id number] Mar, [facility] [place] [facility] [address] [id number] [place] [address]- 0344 Mar, [facility] [address] [id number] [place] [id number] Mar, [facility] [place] [facility] [address] [facility] [id number] [place] [address]- 0651 Mar, [facility] [address] [id number] [place] [id number] Feb, [facility] [place] [facility] [address] [id number] [place] [id number]- 0647 Feb, [facility] [address] [id number] [place] [id number] Feb, [facility] [place] [facility] [address] [id number] [place] [address]- 7807 Feb, [facility] [address] [id number] [place] [id number] Feb, [facility] [place] [facility] [address] [id number] [place] [address]- 5562 Feb, [facility] [address] [id number] [place] [id number] Feb, [facility] [place] [facility] [address] [facility] [id number] [place] [address]- 1606 Feb, [facility] [address] [id number] [place] [id number] Feb, [facility] [place] [facility] [address] [id number] [place] [address]- 5734 Feb, [facility] [address] [id number] [place] [id number] Feb, [facility] [place] [facility] [address] [facility] [id number] [place] [address]- 4953 Feb, [facility] [address] [id number] [place] [id number] Feb, [facility] [place] [facility] [address] [facility] [id number] [place] [address]- 9122 Feb, [facility] [address] [id number] [place] [id number] Feb, [facility] [place] [facility] [address] [id number] [place] [address]- 0098 Feb, [facility] [address] [id number] [place] [id number] Feb, [facility] [place] [facility] [address] [id number] [place] [address]- 8486 Feb, 2013 [facility] [place] [address] [id number] [place] [id number] Feb, [facility] [place] [address] [id number] [place] [id number] Feb, 2013 [facility] [place] [facility] [address] [id number] [place] [address]- 5525 Feb, 2013 [facility] [place] [facility] [address] [facility] [id number] [place] [address]- 0362 Feb, 2013 [facility] [place] [address] [id number] [place] [id number] Feb, [facility] [place] [facility] [address] [facility] [id number] [place] [address]- 4148 Feb, [facility] [place] [address] [facility] [id number] [place] [id number] Feb, [facility] [place] [facility] [address] [facility] [id number] [place] [address]- 5971 Feb, [facility] [address] [id number] [place] [id number] Feb, [facility] [place] [facility] [address] [facility] [id number] [place] [address]- 4506 Feb, [facility] [address] [facility] [id number] [place] [id number] Jan, [facility] [place] [facility] [address] [facility] [id number] [place] [address]- 6632 Jan, [facility] [place] [facility] [address] [facility] [id number][place] [address]- 8988 Jan, [facility] [place] [facility] [address] [facility] [id number] [place] [address]- 0412 Jan, [facility] [place] [facility] [address] [facility] [id number] [place] [address]- 9630 Jan, [facility] [place] [facility] [address] [facility] [id number] [place] [address]- 4436 Jan, [facility] [address] [id number] [place] [id number] Jan, [facility] [place] [facility] [address] [id number] [place] [address]- 8925 Jan, [facility] [place] [facility] [address] [facility] [id number] [place] [address]- 0067 Jan, [facility] [place] [facility] [address] [facility] [id number] [place] [address]- 6907 Jan, [facility] [address] [id number] [place] [id number] Jan, [facility] [address] [id number] [place] [id number] Jan, [facility] [place] [facility] [address] [facility] [id number] [place] [address]- 1396 Jan, [facility] [place] [facility] [address] [facility] [id number][place] [address]- 5630 Jan, [facility] [address] [id number], [place] 026698643 Jan, [facility] [address] [id number] [place] [id number] Jan, [facility] [place] [facility] [address] [facility] [id number][place] [address]- 6152 Jan, [facility] [place] [facility] [address] [facility] [id number][place] [address]- 6401 Jan, [facility] [place] [facility] [address] [facility] [id number][place] [address]- 7427 Jan, [facility] [address] [facility] [id number] [place] 000469696 December, [facility] [place] [facility] [address] [facility] [id number] [place] [address]- 6170 December, [facility] [place] [facility] [address] [facility] [id number], [place] 63216340- 4041 December, [facility] [address] [facility] [id number], [place] [id number] December, [facility] [place] [facility] [address] [id number] [place] [address]- 3086 December, [facility] [address] [facility] [id number] [place] [id number] December, [facility] [place] [facility] [address] [facility] [id number] [place] [address]- 2546 December, [facility] [address] [facility] [id number] [place] [id number] December, [facility] [place] [facility] [address] [facility] [id number] [place] [address]- 2546 December, [facility] [address] [facility] [id number] [place] [id number] Nov, [facility] [place] [facility] [address] [facility] [id number] [place] [address]- 2546 Nov, [facility] [address] [id number] [place] [id number] Nov, [facility] [place] [facility] [address] [facility] [id number] [place] [address]- 8916 Nov, [facility] [place] [facility] [address] [facility] [id number] [place] [address]- 1366 Nov, [facility] [place] [facility] [address] [facility] [id number] [place] [address]- 0846 Nov, [facility] [place] [facility] [address] [facility] [id number] [place] [address]- 1016 Oct, [facility] [address] [facility] [id number] [place] [id number] Oct, [facility] [place] [facility] [address] [id number] [place] [address]- 2546 Oct, [facility] [address] [facility] [id number], [place] [id number] Oct, [facility] [place] [facility] [address] [facility] [id number] [place] [address]- 2546 Oct, [facility] [address] [facility] [id number], [place] [id number] Sep, [facility] [place] [facility] [address] [facility] [id number][place] [address]- 9295 Sep, [facility] [address] [facility] [id number], [place] [id number] Aug, [facility] [place] [facility] [address] [facility] [id number], [place] [address]- 2379 Aug, [facility] [address] [facility] [id number], [place] [id number] Aug, [facility] [place] [facility] [address] [facility] [id number] [place] [address]- 9962 Aug, [facility] [place] [facility] [address]00565100[place], [place] [address]- 4216 Aug, [facility] [id number], [place] 757201793 Aug, [facility] [place] [facility] [address]00565100[place], [place] [address]- 0641 Aug, [facility] [place] [facility] [address] [id number], [place] [address]- 9688 Aug, [facility] [address] [facility] [id number], [place] [id number] Aug, [facility] [place] [facility] [address]00565100[place], [place] [address]- 1215 Aug, [facility] [address] [facility] [id number], [place] [id number] Jul, [facility] [place] [facility] [address] [facility] [id number][place] [address]- 1874 Jul, [facility] [address] [facility] [id number] [place] [id number] Jul, [facility] [place] [facility] [address] [facility] [id number][place] [address]- 4506 Jul, [facility] [address] [facility] [id number], [place] [id number] Jul, [facility] [place] [facility] [address] [facility] [id number][place] [address]- 2546 Jul, [facility] [address] [id number] [place] [id number] Jul, [facility] [address] [facility] [id number][place] [address]- 4195 Jul, [facility] [address] [id number], [place] [id number] Jun, [facility] [address] [facility] [id number], [place] 51386038- 1794 Jun, [facility] [address] [id number], [place] [id number] Jun, [facility] [address] [facility] [id number], [place] 04198623- 4692 Jun, [facility] [address]00565100[place] 095204- 9845 Jun, [facility] [address] [facility] [id number][place] [id number] Jun, [facility] [place] [address] [id number][place] [id number] Apr, [facility] [place] [address] [id number], [place] [id number] Mar, [facility] [place] [address] [id number][place] [id number] Mar, [facility] [place] [address] [id number], [place] [id number] Feb, [facility] [place] [address] [id number][place] [id number] Feb, [facility] [place] [address] [id number] [place] [id number] Feb, [facility] [place] [address] [id number], [place] [id number] December, [facility] [place] [address] [id number][place] [id number] December, [facility] [address] [facility] [id number][place] [address] December, [facility] [place] [address] [id number] [place] [id number] December, [facility] [place] [address] [id number] [place] [id number] December, [facility] [place] [address] [id number] [place] [id number] Nov, [facility] [place] [address] [id number] [place] [id number] Nov, [facility] [place] [address] [id number] [place] [id number] Nov, [facility] [place] [address] [id number] [place] [id number] Oct, [facility] [place] [address] [id number] [place] [id number] Sep, [facility] [place] [address] [id number] [place] [id number] Aug, [facility] [address] [facility] [id number][place] [address] Aug, [facility] [place] [address] [id number] [place] [id number] Aug, [facility] [place] [address] [id number] [place] [id number] Jul, [facility] [address]00565100[place], [place] [address] Jul, [facility] [place] [address] [id number][place] [id number] Jul, [facility] [address] [facility] [id number][place] [address] Jul, [facility] [place] [address] [id number] [place] [id number] Jun, [facility] [place] [facility] [address] [facility] [id number][place] [address] Jun, [facility] [place] [address] [id number] [place] [id number] May, [facility] [address] [id number] [place] [address] May, [facility] [place] [address] [id number] [place] [id number] May, [facility] [address] [facility] [id number] [place] [address] May, [facility] [place] [address] [id number] [place] [id number] Apr, [facility] [place] [address] [id number] [place] [id number] Apr, [facility] [place] [address] [id number] [place] [id number] Mar, [facility] [place] [address] [id number] [place] [id number] Mar, [facility] [place] [address] [id number] [place] [id number] Feb, [facility] [place] [address] [id number] [place] [id number] Feb, [facility] [place] [address] [id number] [place] [id number] Jan, [facility] [place] [address] [id number] [place] [id number] Jan, [facility] [place] [address] [id number] [place] [id number] Jan, [facility] [place] [address] [id number] [place] [id number] Jan, [facility] [place] [address] [id number] [place] [id number] December, [facility] [place] [address] [id number] [place] [id number] December, [facility] [address] [facility] [id number] [place] [address] Nov, [facility] [place] [address] [id number] [place] [id number] Nov, [facility] [place] [address] [id number] [place] [id number] Nov, [facility] [place] [address] [id number] [place] [id number] Nov, [facility] [place] [address] [id number] [place] [id number] Nov, [facility] [address] [facility] [id number][place] [address] Oct, [facility] [address]00565100[place] [address] Oct, [facility] [place] [address] [id number] [place] [id number] Oct, [facility] [place] [address] [id number] [place] [id number] Oct, [facility] [place] [address] [id number] [place] [id number] Oct, [facility] [place] [address] [id number] [place] [id number] Oct, [facility] [place] [address] [id number] [place] [id number] Oct, [facility] [place] [address] [id number] [place] [id number] Oct, [facility] [place] [address] [id number] [place] [id number] Oct, [facility] [address] [id number] [address] Oct, [facility] [address] [id number] [place] [id number] Sep, [facility] [address] [id number] [place] [id number] Sep, [facility] [address] [id number] [place] [id number] Aug, [facility] [address] [id number] [place] [id number] Aug, [facility] [address] [facility] [id number] [id number] Jul, [facility] [id number] [address] Jul, [facility] [id number] [address] Jul, [facility] [id number] [address] Jul, [facility] [id number] [address] Jul, [facility] [address] [id number] [place] [phone] Jul, [facility] [id number] [address] Jul, [facility] [id number] [place] [address] Jul, [facility] [id number] [place] [address] Jul, [facility] [id number] [place] [address] Jul, [facility] [id number] [place] [address] Jul, [facility] [id number] [address] Jul, [facility] [id number] [address] Jul, [facility] [id number] [address] Jul, IMMUNIZATIONS No Known Immunizations SOCIAL HISTORY Never Assessed REASON FOR VISIT refill PLAN OF CARE VITAL SIGNS MEDICATIONS Medication Instructions Dosage Frequency Start Date End Date Duration Status ProAir HFA 108 (90 Base) mcg/act Inhalation 4 times a day 2 puffs as needed 6h Active RESULTS No Results PROCEDURES No Known procedures INSTRUCTIONS MEDICATIONS ADMINISTERED No Known Medications MEDICAL (GENERAL) HISTORY Type Description Date Medical History peripheral vascular disease s/p angioplasty w/ stent R leg Medical History hypertension Medical 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 Medical History 05/26/17 noted, care home has ended and they feel he [...] artery ([place]) 10/2011 Surgical History cataract-lens implants-bilateral ([place]) 05/2014 Surgical History Left eye retinal eye repair ([facility]) 06/2014 Surgical History amputation, toe-right third toe ([place]) 2013 Surgical History Right eye retinal eye repair ([facility]) 09/2014 Surgical History heart cath with [...]
--- OUTSIDE RECORDS SUMMARY | 2018-06-20 10:12 | XMS REPORT ---
Author Author SATINDER GOOD [facility] Address [address] [place] [address] Care Team Providers Care Environmental Field Technician Name Role Phone SATINDER GOOD Unavailable PROBLEMS Type Condition ICD9-CM Code JNX02-CL Code Onset Dates Condition Status SNOMED Code Problem Peripheral vascular disease I73.9 Active 324968493 Problem Coronary artery disease involving kag[place] coronary artery of kag[place]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 Active 2074239002677 Problem S/P coronary artery stent placement Z95.5 Active 833465963 Problem Chronic obstructive pulmonary disease, unspecified COPD type J44.9 Active 13425808 Problem Type 2 diabetes mellitus with diabetic neuropathy E11.40 Active 62508644 Problem Bilateral low back pain without sciatica M54.5 Active 928370735 Problem 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 Active 210321266 Problem 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 Active 637041692 Problem Hypercholesterolemia E78.0 Active 15933978 Problem Comprehensive diabetic foot examination, type 2 DM, encounter for E11.9 Active 81057103 Problem Type 2 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 Active 029734780 Problem Obesity (BMI 30.0-34.9) E66.9 Active 123698494082248 Problem Personal history of carotid stenosis Z86.79 Active 501631064 Problem Aphasia R47.01 Active 70138025 Problem Chronic diarrhea K52.9 Active 164561632 Problem Uses walker Z99.89 Active 879968750 Problem Chronic fatigue R53.82 Active 87752759 Problem Mixed stress and urge urinary incontinence N39.46 Active 784755422 Problem Chronic pain syndrome G89.4 Active 019014139 Problem High risk medication use Z79.899 Active 119548375 Problem Osteomyelitis of right foot, unspecified chronicity M86.9 Active 05478375 Problem Fatigue, unspecified type R53.83 Active 11206485 Problem Diabetes type 2, uncontrolled E11.65 Active 190985120 Problem Full incontinence of feces R15.9 Active 179926773405320 Problem Other chronic pain G89.29 Active 97444696 Problem Functional diarrhea K59.1 Active 62814417 Problem Fecal urgency R15.2 Active 68257497 Problem Depression F32.9 Active 00738934 Problem CKD (chronic kidney disease), stage 3 (moderate) N18.3 Active 608397641 Problem Hyperlipidemia, unspecified hyperlipidemia E78.5 Active 25079767 Problem CKD (chronic kidney disease) stage 3, GFR 30-59 ml/min N18.3 Active 878860148 Problem Type 2 diabetes mellitus with diabetic peripheral angiopathy without gangrene E11.51 Active 333225249 Problem Pain in left shoulder M25.512 Active 92467609 Problem Insulin long-term use Z79.4 Active 604608935 Problem Essential hypertension I10 Active 13696407 Problem Type 2 diabetes mellitus with diabetic retinopathy, macular edema presence unspecified, with unspecified retinopathy severity E11.319 Active 73381967 Problem Chronic kidney disease, unspecified N18.9 Active 718948789 Problem Type 2 diabetes mellitus with foot ulcer E11.621 Active 198590719 Problem Frequent falls R29.6 Active 776807351 Problem GERD without esophagitis K21.9 Active 353203536 Problem Mixed hyperlipidemia E78.2 Active 177833403 ALLERGIES No Known Allergies ENCOUNTERS Encounter Location Date Diagnosis [place] [id number] [place] [address] [id number] December, Mixed stress and urge urinary incontinence N39.46 [place] [address] [place] [address] [id number] December, Chronic fatigue R53.82 [place] [address] [place] [address] [id number] December, Other chronic pain G89.29 [place] [address] [place] [address] [id number] December, Diabetes type 2, uncontrolled E11.65 ; [...] type J44.9 and Other chronic pain G89.29 [facility] [address] [id number] December, [place] [address] [place] [address] [id number] December, Medicare annual wellness visit, subsequent Z00.00 ; Type 2 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 ; Chronic obstructive pulmonary disease, unspecified COPD type J44.9 ; Depression F32.9 ; Peripheral vascular disease I73.9 ; Coronary artery disease involving kaguy[place] coronary artery of kaguy[place]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 ; Hypercholesterolemia E78.0 ; GERD without esophagitis K21.9 and Chronic kidney disease, unspecified N18.9 [place] [address] [place] [address] [id number] December, Mixed stress and urge urinary incontinence N39.46 ; Full incontinence of feces R15.9 ; Fecal urgency R15.2 ; Functional diarrhea K59.1 and Type 2 diabetes mellitus with diabetic neuropathy E11.40 [place] [id number] [place] [address] [id number] Nov, Other chronic pain G89.29 [place] [address] [place] [address] [id number] Oct, [place] [address] [place] [address] [id number] Oct, [place] [address] [place] [address] [id number] Oct, Other chronic pain G89.29 [place] [address] [place] [address] [id number] Sep, Other chronic pain G89.29 [place] [address] [place] [address] [id number] Aug, CKD (chronic kidney disease), stage 3 (moderate) N18.3 ; Anemia, unspecified type D64.9 and Dilated pore of Ly L70.8 [place] [address] [place] [id number] [place] [address] [id number] Aug, Other chronic pain G89.29 ; Pain in left shoulder M25.512 ; High risk medication use Z79.899 ; Uses walker Z99.89 ; Diabetes type 2, uncontrolled E11.65 and Depression F32.9 [place] [address] [place] [address] [id number] Aug, Chronic diarrhea K52.9 [place] [address] [place] [id number] [place] [address] [id number] Aug, Chronic diarrhea K52.9 ; Type 2 diabetes mellitus with diabetic neuropathy E11.40 ; Diabetes type 2, uncontrolled E11.65 ; Insulin long-term use Z79.4 ; Chronic obstructive pulmonary disease, unspecified COPD type J44.9 ; Chronic pain syndrome G89.4 ; Pain in left shoulder M25.512 ; Uses walker Z99.89 ; S/P coronary artery stent placement Z95.5 ; Mixed hyperlipidemia E78.2 and Essential hypertension I10 [address] [place] [address] [id number] Aug, [address] [id number] Jul, Diabetes type 2, uncontrolled E11.65 [place] [address] [place] [id number] [place] [address] [id number] Jul, Diabetes type 2, uncontrolled E11.65 ; Type 2 diabetes mellitus with diabetic neuropathy E11.40 ; Insulin long-term use Z79.4 and Chronic obstructive pulmonary disease, unspecified COPD type J44.9 [address] [place] [address] [id number] Jun, [address] [id number] Jun, Essential hypertension I10 [place] [id number] [place] [address] [id number] Jun, Essential hypertension I10 [place] [address] [place] [address] [id number] Jun, Type 2 diabetes mellitus with diabetic neuropathy E11.40 ; Type 2 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 ; S/P coronary artery stent placement Z95.5 ; Obesity (BMI 30.0-34.9) E66.9 ; Mixed hyperlipidemia E78.2 ; Frequent falls R29.6 ; Chronic obstructive pulmonary disease, unspecified COPD type J44.9 ; Essential hypertension I10 ; Insulin long-term use Z79.4 and High risk medication use Z79.899 [address] [place] [address] [id number] May, Diarrhea, unspecified type R19.7 ; Type 2 diabetes mellitus with diabetic neuropathy E11.40 ; Chronic obstructive pulmonary disease, unspecified COPD type J44.9 ; S/P coronary artery stent placement Z95.5 ; High risk medication use Z79.899 ; Essential hypertension I10 ; Encounter for administration of vaccine Z23 and Encounter for immunization Z23 [address] [id number] [id number] May, Chronic obstructive pulmonary disease, unspecified COPD type J44.9 [address] [place] [address] [id number] May, Type 2 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 ; Encounter for immunization Z23 ; Needs flu shot Z23 ; Comprehensive diabetic foot examination, type 2 DM, encounter for E11.9 and Obesity (BMI 30.0-34.9) E66.9 [address] [place] [address] [id number] May, [address] [place] [address] [id number] Apr, [address] [place] [address] [id number] Apr, Essential hypertension I10 and Aphasia R47.01 [place] [id number] [place] [address] [id number] Apr, [place] [address] [place] [address] [id number] Apr, Type 2 diabetes mellitus with diabetic [...] type J44.9 [facility] [id number] [place] [address] [id number] Mar, [facility] [address] [id number] Mar, Type 2 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 ; Leg wound, left, initial encounter S81.802A ; Hx of shoulder surgery Z98.890 ; Acute pain of left shoulder M25.512 and Fall, initial encounter W19.XXXA [facility] [address] [place] [id number] [place] [address] [id number] Feb, Follow-up exam Z09 ; Hx of shoulder surgery Z98.890 ; Acute pain of left shoulder M25.512 ; Essential hypertension I10 and Leg wound, left, initial encounter S81.802A [facility] [address] [place] [id number] [place] [address] [id number] Feb, [facility] [address] [place] [id number] [place] [address] [id number] Feb, [facility] [address] [place] [id number] [place] [address] [id number] Feb, Chronic obstructive pulmonary disease, unspecified COPD type J44.9 [facility] [address] [place] [id number] [place] [address] [id number] Feb, [facility] [address] [place] [id number] [place] [address] [id number] Jan, Generalized weakness R53.1 ; Exertional shortness of breath R06.02 and Fungal rash of trunk B36.9 [facility] [address] [place] [id number] [place] [address] [id number] Jan, [facility] [address] [place] [id number] [place] [address] [id number] Jan, [facility] [address] [place] [id number] [place] [address] [id number] Jan, [facility] [address] [facility] [id number] [id number] Jan, [address] [id number] December, High risk medication use Z79.899 [place] [address] [facility] [id number] [id number] December, Type 2 diabetes mellitus with diabetic neuropathy E11.40 [address] [place] [address] [id number] December, High risk medication use Z79.[address] [id number] [id number] Nov, Diabetes type 2, uncontrolled E11.65 [address] [place] [address] [id number] Nov, Medicare annual wellness visit, initial Z00.00 ; Bilateral low back pain without sciatica M54.5 ; Pain in left shoulder M25.512 ; Chronic pain syndrome G89.4 ; Type 2 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 ; High risk medication use Z79.899 and Encounter for immunization Z23 [id number] [place] [address] [id number] Nov, Type 2 diabetes mellitus with diabetic neuropathy E11.40 ; Coronary artery disease involving k[place] coronary artery of kag[place]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 and CKD (chronic kidney disease), stage 3 (moderate) N18.[address] [id number] [id number] Oct, Type 2 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 ; Chronic pain syndrome G89.4 ; Chronic obstructive pulmonary disease, unspecified COPD type J44.9 ; Chronic kidney disease, unspecified N18.9 and Rash R21 [address] [id number] [place] [id number] Oct, Type 2 diabetes mellitus with diabetic neuropathy E11.[address] [id number][place] [id number] Oct, Rash R21 and Impetigo L01.00 [facility] [id number], [place] [id number] Oct, Chronic pain syndrome G89.4 [facility] [address] [place] [id number] [place] [address] [id number] Oct, [facility] [address] [place] [id number] [place] [address] [id number] Sep, Sebaceous cyst L72.3 [facility] [address] [place] [id number] [place] [address] [id number] Sep, Sebaceous cyst L72.3 [facility] [address] [place] [id number] [place] [address] [id number] Sep, Chronic pain syndrome G89.4 ; Pain in left shoulder M25.512 and Effusion of olecranon bursa, left M25.422 [facility] [address] [place] [id number] [address] Aug, [place] [id number] [place] [address] [id number] Aug, [place] [address] [place] [id number] [place] [address] [id number] Aug, Mixed hyperlipidemia E78.2 and Chronic kidney disease, unspecified N18.9 [place] [id number] [place] [address] [id number] Jul, Type 2 diabetes mellitus with diabetic neuropathy E11.40 ; Essential hypertension I10 and S/P coronary artery stent placement Z95.5 [place] [address] [place] [address] [id number] Jul, 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 [place] [address] [place] [address] [id number] Jul, Diabetes type 2, uncontrolled E11.65 ; Essential hypertension I10 and 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 [address] [place] [address] [id number] Jul, [address] [place] [address] [id number] Jul, [place] [address] [place] [address] [id number] Jul, [address] [place] [address] [id number] Jul, Chronic obstructive pulmonary disease, unspecified COPD type J44.9 [place] [address] [place] [address] [id number] Jun, CKD (chronic kidney disease), stage 3 (moderate) N18.3 and Anemia, unspecified type D64.9 [place] [address] [place] [address] [id number] Jun, Type 2 diabetes mellitus with diabetic neuropathy E11.40 ; Decreased GFR R94.4 ; CKD (chronic kidney disease), stage 3 (moderate) N18.3 and Decreased hemoglobin R71.[address] [id number] Jun, CKD (chronic kidney disease), stage 3 (moderate) N18.3 and Anemia, unspecified type D64.9 [place] [address] [place] [address] [id number] Jun, Type 2 diabetes mellitus with diabetic neuropathy E11.40 ; Decreased GFR R94.4 and CKD (chronic kidney disease), stage 3 (moderate) N18.3 [place] [address] [place] [address] [id number] Jun, Type 2 diabetes mellitus with diabetic neuropathy E11.40 and Essential hypertension I10 [place] [address] [place] [address] [id number] Jun, [place] [address] [place] [address] [id number] Jun, [place] [address] [place] [address] [id number] Jun, Type 2 diabetes mellitus with diabetic neuropathy E11.40 ; S/P coronary artery stent placement Z95.5 ; Chronic obstructive pulmonary disease, unspecified COPD type J44.9 ; Essential hypertension I10 ; GERD without esophagitis K21.9 ; Peripheral vascular disease I73.9 ; Mixed hyperlipidemia E78.2 and Hospital discharge follow-up Z09 [place] [id number] [place] [address] [id number] Jun, [place] [id number] [id number] May, Depression F32.9 and Hyperlipidemia, unspecified hyperlipidemia E78.5 [facility] [address] [facility] [id number] [place] [id number] May, [place] [id number] [id number] May, [address] [place] [address] [id number] May, Essential hypertension I10 ; Chronic pain syndrome G89.4 ; Pain in left shoulder M25.512 ; High risk medication use Z79.899 ; Chronic obstructive pulmonary disease, unspecified COPD type J44.9 ; S/P coronary artery stent placement Z95.5 ; Personal history of carotid stenosis Z86.79 ; Hyperlipidemia, unspecified hyperlipidemia E78.5 ; Decreased GFR R94.4 and Type 2 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 [address] [place] [address] [id number] May, Hemoglobin decreased R71.0 and Decreased GFR R94.4 [address] [place] [address] [id number] May, Hemoglobin decreased R71.0 and Decreased GFR R94.4 [address] [id number] May, [address] [id number] May, [address] [id number] Apr, [place] [id number] [place] [address] [id number] Apr, Type 2 diabetes mellitus with foot [...] [facility] [address] [place] [id number] [place] [address] [id number] Apr, [facility] [address] [place] [id number] [place] [address] [id number] Mar, [facility] [address] [place] [id number] [place] [address] [id number] Mar, [place] [address] [place] [id number] [place] [address] [id number] Mar, [facility] [address] [place] [id number] [place] [address] [id number] Feb, [facility] [address] [place] [id number] [place] [address] [id number] Feb, [place] [id number] [place] [address] [id number] Feb, [facility] [address] [place] [id number] [place] [address] [id number] Jan, Type 2 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 ; Hypercholesterolemia E78.0 ; Chronic pain syndrome G89.4 ; Pain in left shoulder M25.512 and High risk medication use Z79.899 [facility] [address] [place] [id number] [place] [address] [id number] Jan, [place] [address] [place] [address] [id number] Jan, [facility] [address] [address] [id number] [place] [address] [id number] December, [facility] [address] [address] [id number] [place] [address] [id number] December, [facility] [address] [place] [id number] [place] [address] [id number]- 8919 December, Diabetes type 2, uncontrolled E11.65 ; Type 2 diabetes mellitus with diabetic neuropathy E11.40 ; Peripheral vascular disease I73.9 ; 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 and 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 [facility] [address] [id number] [place] [id number] Nov, [facility] [address] [id number] [place] [id number] Nov, [facility] [place] [address] [id number] [place] [id number] Nov, [facility] [place] [address] [id number] [place] [id number] Nov, Right hip pain M25.551 [facility] [address] [place] [id number] [place] [address] 843013- 5632 Nov, [facility] [address] [place] [id number] [place] [address] 826961- 4044 Nov, [facility] [place] [id number][place] [id number] Nov, Diabetes with neurological manifestations, type II or unspecified type, 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.60 [facility] [address] [id number] [id number] Nov, [facility] [address] [id number], [place] [id number] Nov, [facility] [address] [id number], [place] [id number] Oct, Diabetes type 2, uncontrolled E11.65 ; Type 2 diabetes mellitus with diabetic neuropathy, unspecified E11.40 and Low back pain M54.5 [facility] [address] [id number], [place] [id number] Oct, [facility] [address] [id number], [place] [id number] Oct, [facility] [address] [id number], [place] [id number] Oct, [facility] [address] [id number], [place] [id number] Sep, [facility] [id number], [place] [id number] Sep, [facility] [address] [place] [id number] [place] [address] 13032- 0064 Sep, [facility] [id number], [place] [id number] Sep, [facility] [id number] [place] [address] [id number] Sep, [facility] [id number] [place] [address] [id number] Aug, 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 [facility] [address] [place] [id number] [place] [address] [id number] Aug, [facility] [address] [place] [id number] [place] [address] [id number] Aug, Allergic rhinitis due to pollen J30.[id number] [place] [address] [id number] Jul, [facility] [id number] [place] [address] [id number] Jul, [place] [id number] [place] [address] [id number] Jul, [place] [address] [place] [id number] [place] [address] [id number] Jun, [place] [id number] [place] [address] [id number] Jun, Thumb tendonitis M77.8 and Ringing in ear, bilateral H93.13 [facility] [address] [id number] [place] [id number] Jun, [facility] [address] [id number] May, [facility] [address]100[place], [place] [address]- 5[address] May, [facility] [address] [place] [id number] [place] [address] 02068- 8982 May, Pre-op evaluation Z01.818 ; Encounter for immunization Z23 ; Type 2 diabetes mellitus with diabetic peripheral angiopathy without gangrene E11.51 ; Insulin long-term use Z79.4 ; Type 2 diabetes mellitus with foot ulcer E11.621 ; Peripheral vascular disease I73.9 ; Coronary artery disease involving [place] coronary artery of k[place]uy[place]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 ; S/P coronary artery stent placement Z95.5 ; Osteomyelitis of right foot, unspecified chronicity M86.9 and Chronic obstructive pulmonary disease, unspecified COPD type J44.9 [facility] [id number] [place] [address] 43918- 4394 May, [facility] [id number] [place] [address] [id number] May, [facility] [address] [id number] May, Diabetes type 2, uncontrolled E11.65 ; Encounter for immunization Z23 ; Osteopenia M85.80 and Allergic rhinitis due to pollen J30.1 [facility] [address] [place] [id number] [place] [address] [id number] May, Lumbago 724.2 [facility] [id number] [place] [address] [id number] Apr, [facility] [id number] [place] [address] [id number] Apr, [facility] [id number] [place] [address] [id number] Apr, [facility] [id number] [place] [address] [id number] Apr, [facility] [address], [place] [address] 2546 Mar, [facility] [id number] [place] [address] [id number] Mar, [facility] [id number] [place] [address] [id number] Mar, [facility] [id number] [place] [address] [id number] Mar, [facility] [id number] [place] [address] [id number] Mar, [facility] [id number] [place] [phone] Mar, [facility] [address] [id number] [id number] Mar, [facility] [id number] [place] [address] [id number] Mar, Diabetes with neurological manifestations, type II or unspecified type, 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.60 and Severe obesity (BMI 35.0-35.9 with comorbidity) 278.01 [facility] [address] [id number][place] [id number] Mar, [facility] [id number] [place] [address] 9[address]84- 2546 Mar, [facility] [id number] [place] [address] 38465- 2546 Feb, [facility] [id number][place] [id number] Feb, [facility] [address] [id number], [place] [id number] Feb, [facility] [address] [id number] [place] [id number] Feb, Diabetes with neurological manifestations, type II or unspecified type, 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.60 [facility] [address] [id number] [place] [id number] Feb, [facility] [address]005[address], [place] [address]- 2546 Feb, [facility] [address] [id number][place] [id number] Feb, [facility] [address] [id number] [place] [id number] Feb, Follow up V67.9 ; Diabetes with neurological manifestations, type II or unspecified type, 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.60 and Congestive heart failure 428.0 [facility] [address] [id number][place] [id number] Jan, [facility] [address] [id number][place] [id number] Jan, [facility] [id number] [place] [id number] Jan, [facility] [address] [id number][place] [address]212 December, Otitis media with effusion 381.4 ; Left arm numbness 782.0 and Osteoporosis 733.00 [facility] [id number], [place] [id number] December, [facility] [id number], [place] [id number] Nov, [facility] [id number], [place] [id number] Nov, Serous otitis media 381.4 and Lumbago 724.2 [facility] [id number] [place] [address] 49105- 3206 Nov, [facility] [id number] [place] [address] 93059- 0271 Nov, [facility] [id number], [place] [address]1975[address] Oct, [facility] [address]65100[place], [place] [address]- 3683 Oct, [facility] [id number], [place] 615940481 Oct, [facility] [address], [place] [address]- 4618 Oct, [facility] [id number], [place] [address]63017714 Oct, [facility] [place] [facility] [address]65100[place], [place] [address]- 6276 Oct, [facility] [id number] [place] [address] 05265- 1296 Sep, [facility] [address] [id number], [place] [address]- 5216 Sep, [facility] [id number], [place] [id number] Sep, [facility] [address] [id number], [place] [address]- 7626 Sep, [facility] [address] [id number], [place] 893018462 Aug, [facility] [place] [facility] [address] [facility] [id number], [place] [address]- 7426 Aug, [facility] [address] [facility] [id number], [place] [address]60725459 Aug, [facility] [facility] [address] [facility] [id number], [place] [address]- 8430 Aug, [facility] [address] [facility] [id number] [place] [id number] Jul, [facility] [place] [facility] [address] [facility] [id number], [place] [address]- 9078 Jul, [facility] [address] [facility] [id number], [place] [id number] Jul, [facility] [place] [facility] [address] [facility] [id number], [place] [address]- 0940 Jul, [facility] [address] [facility] [id number], [place] [id number] Jul, [facility] [place] [facility] [address] [facility] [id number], [place] [address]- 3209 Jul, [facility] [address] [facility] [id number], [place] [id number] Jun, [facility] [facility] [address] [facility] [id number], [place] [address]- 6636 Jun, [facility] [address] [facility] [id number], [place] [id number] May, [facility] [place] [facility] [address] [facility] [id number], [place] [address]- 3766 May, [facility] [address] [facility] [id number], [place] [id number] May, [facility] [facility] [address] [facility] [id number], [place] [address]- 6924 May, [facility] [address] [id number] [place] [id number] May, [facility] [place] [facility] [address] [facility] [id number], [place] [address]- 4414 May, [facility] [address] [id number], [place] [id number] May, [facility] [address] [facility] [id number], [place] 367680502 May, [facility] [place] [facility] [address] [facility] [id number], [place] [address]- 3560 May, [facility] [place] [facility] [address] [facility] [id number], [place] [address]- 2835 May, [facility] [address] [facility] [id number], [place] [id number] May, [facility] [place] [facility] [address] [facility] [id number], [place] [address]- 9560 May, [facility] [place] [facility] [address] [facility] [id number], [place] [address]- 3434 Apr, [facility] [address] [facility] [id number], [place] [id number] Apr, [facility] [place] [facility] [address] [facility] [id number], [place] [address]- 7314 Apr, [facility] [address] [facility] [id number], [place] [id number] Apr, [facility] [address] [facility] [id number], [place] [id number] Apr, [facility] [facility] [address] [facility] [id number], [place] [address]- 9820 Apr, [facility] [place] [facility] [address] [facility] [id number], [place] [address]- 1117 Apr, [facility] [address] [facility] [id number], [place] [id number] Apr, [facility] [place] [facility] [address] [facility] [id number], [place] [address]- 3718 Apr, [facility] [address] [id number] [place] [id number] Apr, [facility] [place] [facility] [address] [facility] [id number] [place] [address]- 1466 Apr, [facility] [address] [id number] [place] [id number] Apr, [facility] [place] [facility] [address] [facility] [id number] [place] [address]- 6159 Apr, [facility] [address] [id number] [place] 334565590 Apr, [facility] [place] [facility] [address] [facility] [id number] [place] [address]- 7191 Apr, [facility] [address] [facility] [id number] [place] [id number] Apr, [facility] [place] [facility] [address]65[address], [place] [address]- 7407 Apr, [facility] [address] [facility] [id number] [place] [id number] Apr, [facility] [place] [facility] [address] [id number], [place] [address]- 8201 Apr, [facility] [address] [facility] [id number] [place] 748014422 Mar, [facility] [place] [facility] [address] [facility] [id number], [place] [address]- 8715 Mar, [facility] [address] [id number] [place] [id number] Mar, [facility] [address] [id number] [place] [id number] Mar, [facility] [place] [facility] [address] [facility] [id number] [place] [address]- 4396 Mar, [facility] [place] [facility] [address] [facility] [id number] [place] [address]- 9960 Mar, [facility] [address] [id number] [place] [id number] Mar, [facility] [place] [facility] [address] [id number], [place] [address]- 5506 Mar, [facility] [address] [id number] [place] 324928984 Mar, [facility] [place] [facility] [address] [facility] [id number], [place] [address]- 6819 Mar, [facility] [address] [facility] [id number] [place] [id number] Mar, [facility] [place] [facility] [address] [facility] [id number], [place] [address]- 4415 Mar, [facility] [address] [id number], [place] [id number] Mar, [facility] [place] [facility] [address] [facility] [id number], [place] [address]- 2600 Mar, [facility] [address] [facility] [id number], [place] [id number] Mar, [facility] [place] [facility] [address]65[address], [place] [address]- 6702 Mar, [facility] [address] [facility] [id number], [place] 369735534 Mar, [facility] [place] [facility] [address], [place] [address]- 8319 Mar, [facility] [address] [facility] [id number], [place] 665876465 Mar, [facility] [place] [facility] [address] [facility] [id number], [place] [address]- 2758 Mar, [facility] [address] [facility] [id number], [place] [id number] Feb, [facility] [place] [facility] [address] [facility] [id number], [place] [address]- 9907 Feb, [facility] [address] [facility] [id number], [place] [id number] Feb, [facility] [place] [facility] [address] [facility] [id number], [place] [address]- 9913 Feb, [facility] [address] [id number] [place] [id number] Feb, [facility] [place] [facility] [address] [id number] [place] [address]- 5077 Feb, [facility] [address] [id number] [place] [id number] Feb, [facility] [place] [facility] [address] [id number] [place] [address]- 8587 Feb, [facility] [address] [id number] [place] [id number] Feb, [facility] [place] [facility] [address] [id number] [place] [address]- 7149 Feb, [facility] [address] [id number] [place] [id number] Feb, [facility] [place] [facility] [address] [facility] [id number] [place] [address]- 4397 Feb, [facility] [address] [id number] [place] [id number] Feb, [facility] [place] [facility] [address] [facility] [id number], [place] [address]- 8789 Feb, [facility] [address] [id number] [place] 559833205 Feb, [facility] [place] [facility] [address] [id number], [place] [address]- 6639 Feb, [facility] [address] [id number] [place] [id number] Feb, [facility] [place] [facility] [address] [id number] [place] [address]- 1626 Feb, [facility] [address] [id number] [place] 950715553 Feb, [facility] [address] [id number] [place] [id number] Feb, [facility] [place] [facility] [address] [facility] [id number] [place] [address]- 1838 Feb, [facility] [place] [facility] [address] [id number] [place] [address]- 0918 Feb, [facility] [address] [id number] [place] 815133979 Feb, [facility] [place] [facility] [address] [id number] [place] [address]- 6886 Feb, 2013 [facility] [address] [facility] [id number] [place] [id number] Feb, [facility] [place] [facility] [address] [id number] [place] [address]- 4086 Feb, [facility] [address] [id number] [place] [id number] Feb, [facility] [place] [facility] [address] [facility] [id number] [place] [address]- 4996 Feb, [facility] [address] [facility] [id number] [place] [id number] Jan, [facility] [place] [facility] [address] [facility] [id number] [place] [address]- 9614 Jan, [facility] [place] [facility] [address] [facility] [id number] [place] [address]- 0157 Jan, [facility] [place] [facility] [address] [facility] [id number] [place] [address]- 4310 Jan, [facility] [place] [facility] [address] [facility] [id number] [place] [address]- 8437 Jan, [facility] [place] [facility] [address] [facility] [id number] [place] [address]- 6902 Jan, [facility] [address] [facility] [id number] [place] [id number] Jan, [facility] [place] [facility] [address] [facility] [id number] [place] [address]- 7375 Jan, [facility] [place] [facility] [address] [facility] [id number] [place] [address]- 9072 Jan, [facility] [place] [facility] [address] [facility] [id number] [place] [address]- 2125 Jan, [facility] [address] [id number] [place] [id number] Jan, [facility] [address] [id number] [place] 011523360 Jan, [facility] [place] [facility] [address] [facility] [id number] [place] [address]- 0507 Jan, [facility] [place] [facility] [address] [facility] [id number] [place] [address]- 8298 Jan, [facility] [address] [id number] [place] [id number] Jan, [facility] [address] [id number] [place] 695355969 Jan, [facility] [place] [facility] [address] [facility] [id number] [place] [address]- 9230 Jan, [facility] [place] [facility] [address] [facility] [id number] [place] [address]- 8027 Jan, [facility] [place] [facility] [address] [facility] [id number] [place] [address]- 7535 Jan, [facility] [address] [facility] [id number] [place] [id number] December, [facility] [place] [facility] [address] [facility] [id number] [place]- 7702 December, [facility] [place] [facility] [address] [facility] [id number], [place] [address]- 1398 December, [facility] [address] [id number] [place] [id number] December, [facility] [place] [facility] [address] [facility] [id number] [place] [address]- 8777 December, [facility] [address] [facility] [id number] [place] [id number] December, [facility] [place] [facility] [address] [facility] [id number] [place] [address]- 4147 December, [facility] [address] [id number] [place] [id number] December, [facility] [place] [facility] [address] [facility] [id number], [place] [address]- 4006 December, [facility] [address] [id number] [place] [id number] Nov, [facility] [place] [facility] [address] [facility] [id number], [place] [address]- 5866 Nov, [facility] [address] [facility] [id number], [place] [id number] Nov, [facility] [place] [facility] [address] [facility] [id number] [place] [address]- 3360 Nov, [facility] [place] [facility] [address] [facility] [id number], [place] 526384- 3133 Nov, [facility] [place] [facility] [address], [place] [address]- 4726 Nov, [facility] [place] [facility] [address] [facility] [id number], [place] [address]- 8518 Oct, [facility] [address] [facility] [id number], [place] [id number] Oct, [facility] [place] [facility] [address] [facility] [id number], [place] [address]- 0864 Oct, [facility] [address] [facility] [id number], [place] 099914612 Oct, [facility] [place] [facility] [address] [facility] [id number], [place] [address]- 0639 Oct, [facility] [address] [facility] [id number] [place] [id number] Sep, [facility] [place] [facility] [address] [facility] [id number], [place] [address]- 6590 Sep, [facility] [address] [facility] [id number] [place] [id number] Aug, [facility] [place] [facility] [address] [facility] [id number], [place] 92194277- 3456 Aug, [facility] [address] [id number] [place] [id number] Aug, [facility] [place] [facility] [address] [id number] [place] [address]- 6901 Aug, [facility] [place] [facility] [address] [facility] [id number] [place] [address]- 6924 Aug, [facility] [address] [id number], [place] [id number] Aug, [facility] [place] [facility] [address] [id number] [place] [address]- 0507 Aug, [facility] [place] [facility] [address] [facility] [id number] [place] [address]- 3959 Aug, [facility] [address] [facility] [id number] [place] [id number] Aug, [facility] [place] [facility] [address] [facility] [id number], [place] [address]- 7277 Aug, [facility] [address] [id number], [place] [id number] Jul, [facility] [place] [facility] [address] [facility] [id number], [place] 681684- 0365 Jul, [facility] [address] [id number], [place] [id number] Jul, [facility] [place] [facility] [address] [facility] [id number], [place] [address]- 7798 Jul, [facility] [address] [id number], [place] [id number] Jul, [facility] [place] [facility] [address] [facility] [id number], [place] [address]- 1388 Jul, [facility] [address] [id number], [place] [id number] Jul, [facility] [place] [facility] [address] [facility] [id number], [place] [address]- 1174 Jul, [facility] [address] [id number] [place] [id number] Jun, [facility] [address] [facility] [id number], [place] [address]- 4176 Jun, [facility] [address] [id number], [place] [id number] Jun, [facility] [address] [facility] [id number], [place] [address]- 1248 Jun, [facility] [address] [facility] [id number], [place] [address]- 0333 Jun, [facility] [address] [facility] [id number], [place] [address]- 7374 Jun, [facility] [address] [id number], [place] [id number] Apr, [facility] [address] [id number] [place] [id number] Mar, [facility] [address] [id number], [place] [id number] Mar, [facility] [address] [id number] [place] [id number] Feb, [facility] [address] [id number] [place] [id number] Feb, [facility] [address] [id number], [place] [id number] Feb, [facility] [address] [id number], [place] [id number] December, [facility] [address] [id number] [place] 394644733 December, [facility] [address] [id number], [place] [address]- 0946 December, [facility] [address] [id number] [place] [id number] December, [facility] [address] [id number] [place] 840600178 December, [facility] [address] [id number] [id number] Nov, [facility] [address] [id number] [place] [id number] Nov, [facility] [address] [id number] [place] [id number] Nov, [facility] [address] [id number] [place] [id number] Oct, [facility] [address] [id number] [place] [id number] Sep, [facility] [address] [id number] [place] [id number] Aug, [facility] [address] [id number] [place] [address] Aug, [facility] [address] [id number] [place] [id number] Aug, [facility] [address] [id number] [place] [id number] Jul, [facility] [address] [facility] [id number], [place] [address] Jul, [facility] [address] [id number][place] [id number] Jul, [facility] [place] [facility] [address], [place] [address] Jul, [facility] [address] [id number][place] [id number] Jun, [facility] [place] [facility] [address] [facility] [id number], [place] [address] Jun, [facility] [address] [id number][place] [id number] May, [facility] [place] [facility] [address] [facility] [id number], [place] [address] May, [facility] [address] [id number][place] [id number] May, [facility] [place] [facility] [address] [facility] [id number], [place] [address] May, [facility] [address] [id number] [place] [id number] Apr, [facility] [address] [id number] [place] [id number] Apr, [facility] [address] [id number] [place] [id number] Mar, [facility] [address] [id number] [place] [id number] Mar, [facility] [place] [address] [id number] [place] [id number] Feb, [facility] [address] [id number] [place] [id number] Feb, [facility] [address] [id number] [place] [id number] Jan, [facility] [address] [id number] [place] [id number] Jan, [facility] [address] [id number] [place] [id number] Jan, [facility] [address] [id number] [place] [address] Jan, [facility] [address] [id number] [place] [id number] December, [facility] [address] [id number] [place] [id number] December, [facility] [address], [place] [address] Nov, [facility] [address] [id number] [place] [id number] Nov, [facility] [address] [id number] [place] [id number] Nov, [facility] [address] [id number] [place] [id number] Nov, [facility] [address] [id number] [place] [id number] Nov, [facility] [id number] [place] [id number] Oct, [facility] [id number] [place] [address] [place] [address] Oct, [facility] [address] [id number] [place] [id number] Oct, [facility] [address] [id number] [place] [address] Oct, [facility] [address] [id number] [place] [id number] Oct, [facility] [address] [id number] [place] [id number] Oct, [facility] [address] [id number] [place] [address] Oct, [facility] [address] [id number] [place] [id number] Oct, [facility] [address] [id number] [place] [id number] Oct, [facility] [address], [place] [address] Oct, [facility] [address] [id number] [place] [id number] Sep, [facility] [address] [id number] [place] [id number] Sep, [facility] [address] [id number] [place] [id number] Aug, [facility] [address] [id number] [place] [id number] Aug, [facility] [address], [place] [address] Jul, [facility] [address], [place] [address] Jul, [facility] [address] [id number], [place] [address] Jul, [facility] [address], [place] [address] Jul, [facility] [id number] [place] [address] Jul, [facility] [address] [id number], [place] [address] Jul, [facility] [address], [place] [address] Jul, [facility] [address], [place] [address] Jul, [facility] [address] [id number] [place] [id number] Jul, [facility] [id number], [place] [address] Jul, [facility] [address] [id number] [place] [id number] Jul, [facility] [id number], [place] [address] Jul, [facility] [id number] [address] Jul, [facility] [id number], [place] [address] Jul, IMMUNIZATIONS No Known Immunizations SOCIAL HISTORY Never Assessed REASON FOR VISIT 1 month follow up on diabetes. Sugars are running high x 4 days, [facility] is wanting to put him on a diabetic diet. bam Onofre PLAN OF CARE Activity Details Follow Up 4 Weeks Reason:CHM DM VITAL SIGNS Height 69 in 2017-08-02 Weight 226.2 lbs 2017-08-02 Temperature 98.3 degrees Fahrenheit 2017-08-02 Heart Rate 78 bpm 2017-08-02 Respiratory Rate 20 2017-08-02 BMI 33.40 kg/m2 2017-08-02 Blood pressure systolic 128 mmHg 2017-08-02 Blood pressure diastolic 76 mmHg 2017-08-02 MEDICATIONS Medication Instructions Dosage Frequency Start Date End Date Duration Status Folic Acid 1 MG Orally Once a day 1 tablet 24h Jul, Active Cetirizine HCl 10 mg Orally Once a day 1 tablet as needed 24h Nov, Active UltiCare Micro Pen [place] 32G X 4 MM USE TWICE DAILY. Active Lancets - subcutaneously 3 times a day as directed 8h 07 Jun, 2016 Active Aspirin Adult Low Strength 81 MG Orally Once a day 1 tablet 24h Active Escitalopram Oxalate 10 MG TAKE ONE (1) TABLET BY MOUTH DAILY... Active Carvedilol 3.125 MG Orally 2 times a day 1/2 tablet in am and in pm 12h Active Prilosec 20 MG TAKE ONE (1) CAPSULE BY MOUTH ONCE DAILY... Active ProAir HFA 108 (90 Base) mcg/act Inhalation 4 times a day 2 puffs as needed 6h 0 Active Levemir Flexpen 100 UNIT/ML Subcutaneous 2 times a day 43 units 12h Active Megestrol Acetate 40 mg Orally Once a day at HS 1 tablet Active Baclofen 20 MG TAKE ONE (1) TABLET BY MOUTH TWICE (2) DAILY IN THE MORNING AND EVENING... Active Lasix 20 mg Orally Once a day 1 tablet 24h 0 days Active Atorvastatin Calcium 40 MG TAKE ONE (1) TABLET BY MOUTH DAILY... Active Mupirocin 2 % Externally Three times a day 1 application to affected area 8h 14 days Not-Taking Tramadol HCl 50 MG Orally every 6 hrs 1 tablet as needed 6h Active Nitroglycerin 0.4 MG Active Victoza 18 MG/3ML INJECT (1.8) MG SUBCUTANEOUSLY ONCE DAILY IN THE MORNING.... (DOES HIMSELF) Active Walker - Rolator walker with seat and hand brakes Jan, Active Domingo Contour Test - TEST BLOOD SUGAR (4) TIMES DAILY. Active Triamcinolone Acetonide 0.5 % Externally Twice a day 1 application to affected area 12h 15 Oct, 2016 Not-Taking RESULTS No Results PROCEDURES Procedure Date Ordered Result Body Site [facility] VISIT ESTABLISHED PATIENT Aug 02, 2017 INSTRUCTIONS MEDICATIONS ADMINISTERED No Known Medications [...] Surgical History Left eye retinal eye repair ([facility]) 06/2014 Surgical History amputation, toe-right third toe ([facility]) 2013 Surgical History Right eye retinal eye repair ([facility]) 09/2014 Surgical History heart cath [...]
--- OUTSIDE RECORDS SUMMARY | 2018-06-20 10:13 | XMS REPORT ---
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 Arc Name Role Phone SATINDER GOOD Unavailable PROBLEMS Type Condition ICD9-CM Code JTA49-AT Code Onset Dates Condition Status SNOMED Code Problem S/P coronary artery stent placement Z95.5 Active 130307494 Problem Type 2 diabetes mellitus with diabetic peripheral angiopathy without gangrene E11.51 Active 220069409 Problem Depression F32.9 Active 98945786 Problem Type 2 diabetes mellitus with diabetic neuropathy E11.40 Active 06036092 Problem Hyperlipidemia, unspecified hyperlipidemia E78.5 Active 27753672 Problem Coronary artery disease involving tolowa dee-ni' coronary artery of tolowa dee-ni'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 Active 6545023961402 Problem Peripheral vascular disease I73.9 Active 667083841 Problem Chronic obstructive pulmonary disease, unspecified COPD type J44.9 Active 42369049 Problem Osteomyelitis of right foot, unspecified chronicity M86.9 Active 05182211 Problem CKD (chronic kidney disease) stage 3, GFR 30-59 ml/min N18.3 Active 061695312 Problem Type 2 diabetes mellitus with diabetic retinopathy, macular edema presence unspecified, with unspecified retinopathy severity E11.319 Active 62583488 Problem GERD without esophagitis K21.9 Active 986897382 Problem Bilateral low back pain without sciatica M54.5 Active 288270747 Problem Mixed hyperlipidemia E78.2 Active 776486317 Problem Frequent falls R29.6 Active 774850029 Problem Chronic kidney disease, unspecified N18.9 Active 701711496 Problem Other chronic pain G89.29 Active 68954879 Problem Chronic diarrhea K52.9 Active 228023916 Problem Hypercholesterolemia E78.0 Active 77505141 Problem 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 Active 606826482 Problem 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 Active 598926585 Problem Obesity (BMI 30.0-34.9) E66.9 Active 886899794369008 Problem Comprehensive diabetic foot examination, type 2 DM, encounter for E11.9 Active 52402618 Problem Uses walker Z99.89 Active 850743967 Problem Aphasia R47.01 Active 70613862 Problem Insulin long-term use Z79.4 Active 789100675 Problem Fatigue, unspecified type R53.83 Active 74736945 Problem Type 2 diabetes mellitus with foot ulcer E11.621 Active 565523441 Problem Pain in left shoulder M25.512 Active 81096992 Problem Type 2 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 Active 304056186 Problem Diabetes type 2, uncontrolled E11.65 Active 011335017 Problem Personal history of carotid stenosis Z86.79 Active 291349628 Problem Essential hypertension I10 Active 44466499 Problem CKD (chronic kidney disease), stage 3 (moderate) N18.3 Active 859245605 Problem Chronic pain syndrome G89.4 Active 927310771 Problem High risk medication use Z79.899 Active 433252461 ALLERGIES No Information ENCOUNTERS Encounter Location Date Diagnosis [facility] [place] [address] [id number] Dec, 2017 Medicare annual wellness visit, subsequent Z00.00 [facility] [address] [id number] Nov, Other chronic pain G89.[address] [id number] Oct, [facility] [address] [id number] Oct, [facility] [address] [id number] Oct, Other chronic pain G89.29 [facility] [place] [address] [id number] Sep, Other chronic pain G89.29 [facility] [place] [address] [id number] Aug, CKD (chronic kidney disease), stage 3 (moderate) N18.3 ; Anemia, unspecified type D64.9 and Dilated pore of Ly L70.8 [facility] [place] [address] [id number] Aug, Other chronic pain G89.29 ; Pain in left shoulder M25.512 ; High risk medication use Z79.899 ; Uses walker Z99.89 ; Diabetes type 2, uncontrolled E11.65 and Depression F32.9 [facility] [id number] [place] [address] [id number] Aug, Chronic diarrhea K52.9 [place] [id number] [place] [address] [id number] Aug, Chronic diarrhea K52.9 ; Type 2 diabetes mellitus with diabetic neuropathy E11.40 ; Diabetes type 2, uncontrolled E11.65 ; Insulin long-term use Z79.4 ; Chronic obstructive pulmonary disease, unspecified COPD type J44.9 ; Chronic pain syndrome G89.4 ; Pain in left shoulder M25.512 ; Uses walker Z99.89 ; S/P coronary artery stent placement Z95.5 ; Mixed hyperlipidemia E78.2 and Essential hypertension I10 [place] [id number] [place] [address] [id number] Aug, [place] [id number] [place] [address] [id number] Jul, Diabetes type 2, uncontrolled E11.65 [place] [id number] [place] [address] [id number] Jul, Diabetes type 2, uncontrolled E11.65 ; Type 2 diabetes mellitus with diabetic neuropathy E11.40 ; Insulin long-term use Z79.4 and Chronic obstructive pulmonary disease, unspecified COPD type J44.9 [address] [place] [address] [id number] Jun, [address] [place] [address] [id number] Jun, Essential hypertension I10 [place] [id number] [place] [address] [id number] Jun, Essential hypertension I10 [place] [id number] [place] [address] [id number] Jun, Type 2 diabetes mellitus with diabetic neuropathy E11.40 ; Type 2 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 ; S/P coronary artery stent placement Z95.5 ; Obesity (BMI 30.0-34.9) E66.9 ; Mixed hyperlipidemia E78.2 ; Frequent falls R29.6 ; Chronic obstructive pulmonary disease, unspecified COPD type J44.9 ; Essential hypertension I10 ; Insulin long-term use Z79.4 and High risk medication use Z79.899 [address] [place] [address] [id number] May, Diarrhea, unspecified type R19.7 ; Type 2 diabetes mellitus with diabetic neuropathy E11.40 ; Chronic obstructive pulmonary disease, unspecified COPD type J44.9 ; S/P coronary artery stent placement Z95.5 ; High risk medication use Z79.899 ; Essential hypertension I10 ; Encounter for administration of vaccine Z23 and Encounter for immunization Z23 [address] [id number] [id number] May, Chronic obstructive pulmonary disease, unspecified COPD type J44.9 [address] [place] [address] [id number] May, Type 2 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 ; Encounter for immunization Z23 ; Needs flu shot Z23 ; Comprehensive diabetic foot examination, type 2 DM, encounter for E11.9 and Obesity (BMI 30.0-34.9) E66.9 [address] [place] [address] [id number] May, [address] [place] [address] [id number] Apr, [place] [id number] [place] [address] [id number] Apr, Essential hypertension I10 and Aphasia R47.01 [place] [id number] [place] [address] [id number] Apr, [place] [address] [place] [address] [id number] Apr, Type 2 diabetes mellitus with diabetic neuropathy E11.40 ; Frequent falls R29.6 ; Essential hypertension I10 ; S/P coronary artery stent placement Z95.5 ; High risk medication use Z79.899 ; Hyperlipidemia, unspecified hyperlipidemia E78.5 ; CKD (chronic kidney disease), stage 3 (moderate) N18.3 ; Pain in left shoulder M25.512 and Chronic obstructive pulmonary disease, unspecified COPD type J44.9 [facility] [address] [place] [id number] [place] [address] [id number] Mar, [facility] [place] [address] [place] [id number] [place] [address] [id number] Mar, Type 2 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 ; Leg wound, left, initial encounter S81.802A ; Hx of shoulder surgery Z98.890 ; Acute pain of left shoulder M25.512 and Fall, initial encounter W19.XXXA [facility] [place] [address] [id number] Feb, Follow-up exam Z09 ; Hx of shoulder surgery Z98.890 ; Acute pain of left shoulder M25.512 ; Essential hypertension I10 and Leg wound, left, initial encounter S81.802A [facility] [place] [address] [place] [id number] [place] [address] [id number] Feb, [facility] [place] [address] [place] [id number] [place] [address] [id number] Feb, [facility] [place] [address] [place] [id number] [place] [address] [id number] Feb, Chronic obstructive pulmonary disease, unspecified COPD type J44.9 [facility] [place] [address] [place] [id number] [place] [address] [id number] Feb, [facility] [address] [place] [id number] [place] [address] [id number] Jan, Generalized weakness R53.1 ; Exertional shortness of breath R06.02 and Fungal rash of trunk B36.9 [facility] [place] [address] [place] [id number] [place] [address] [id number] Jan, [facility] [place] [address] [place] [id number] [place] [address] [id number] Jan, [facility] [place] [address] [place] [id number] [place] [address] [id number] Jan, [facility] [place] [address] [place] [id number] [place] [address] [id number] Jan, [address] [id number][place] [id number] December, High risk medication use Z79.899 [address] [id number] December, Type 2 diabetes mellitus with diabetic neuropathy E11.[address] [id number][place] [id number] December, High risk medication use Z79.[address] [id number][place] [id number] Nov, Diabetes type 2, uncontrolled E11.65 [address] [place] [address] [id number] Nov, Medicare annual wellness visit, initial Z00.00 ; Bilateral low back pain without sciatica M54.5 ; Pain in left shoulder M25.512 ; Chronic pain syndrome G89.4 ; Type 2 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 ; High risk medication use Z79.899 and Encounter for immunization Z23 [address] [id number] Nov, Type 2 diabetes mellitus with diabetic neuropathy E11.40 ; Coronary artery disease involving tolowa dee-ni' coronary artery of tolowa dee-ni'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 and CKD (chronic kidney disease), stage 3 (moderate) N18.[address] [id number][place] [id number] Oct, Type 2 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 ; Chronic pain syndrome G89.4 ; Chronic obstructive pulmonary disease, unspecified COPD type J44.9 ; Chronic kidney disease, unspecified N18.9 and Rash R21 [place] [address] [facility] [id number] [id number] Oct, Type 2 diabetes mellitus with diabetic neuropathy E11.[address] [id number][place] [id number] Oct, Rash R21 and Impetigo L01.[address] [id number][place] [id number] Oct, Chronic pain syndrome G89.4 [facility] [id number], [place] [id number] Oct, [facility] [id number] [place] [address] [id number] Sep, Sebaceous cyst L72.3 [facility] [id number], [place] [id number] Sep, Sebaceous cyst L72.3 [facility] [address] [place] [id number] [place] [address] [id number] Sep, Chronic pain syndrome G89.4 ; Pain in left shoulder M25.512 and Effusion of olecranon bursa, left M25.422 [facility] [address] [place] [id number] [address] Aug, [facility] [id number] [place] [address] [id number] Aug, [facility] [address] [place] [id number] [place] [address] [id number] Aug, Mixed hyperlipidemia E78.2 and Chronic kidney disease, unspecified N18.9 [facility] [address] [place] [id number] [place] [address] [id number] Jul, Type 2 diabetes mellitus with diabetic neuropathy E11.40 ; Essential hypertension I10 and S/P coronary artery stent placement Z95.5 [facility] [id number] [place] [address] [id number] Jul, 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 [facility] [id number] [place] [address] [id number] Jul, Diabetes type 2, uncontrolled E11.65 ; Essential hypertension I10 and 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 [place] [id number] [place] [address] [id number] Jul, [facility] [id number] [place] [address] [id number] Jul, [facility] [id number] [place] [address] [id number] Jul, [facility] [address] [place] [id number] [place] [address] [id number] Jul, Chronic obstructive pulmonary disease, unspecified COPD type J44.9 [address] [place] [address] [id number] Jun, CKD (chronic kidney disease), stage 3 (moderate) N18.3 and Anemia, unspecified type D64.9 [address] [place] [address] [id number] Jun, Type 2 diabetes mellitus with diabetic neuropathy E11.40 ; Decreased GFR R94.4 ; CKD (chronic kidney disease), stage 3 (moderate) N18.3 and Decreased hemoglobin R71.0 [place] [address] [place] [address] [id number] Jun, CKD (chronic kidney disease), stage 3 (moderate) N18.3 and Anemia, unspecified type D64.9 [address] [place] [address] [id number] Jun, Type 2 diabetes mellitus with diabetic neuropathy E11.40 ; Decreased GFR R94.4 and CKD (chronic kidney disease), stage 3 (moderate) N18.3 [address] [place] [address] [id number] Jun, Type 2 diabetes mellitus with diabetic neuropathy E11.40 and Essential hypertension I10 [address] [place] [address] [id number] Jun, [address] [place] [address] [id number] Jun, [place] [id number] [place] [address] [id number] Jun, Type 2 diabetes mellitus with diabetic neuropathy E11.40 ; S/P coronary artery stent placement Z95.5 ; Chronic obstructive pulmonary disease, unspecified COPD type J44.9 ; Essential hypertension I10 ; GERD without esophagitis K21.9 ; Peripheral vascular disease I73.9 ; Mixed hyperlipidemia E78.2 and Hospital discharge follow-up Z09 [address] [place] [address] [id number] Jun, [address] [id number] May, Depression F32.9 and Hyperlipidemia, unspecified hyperlipidemia E78.5 [facility] [address] [id number] May, [address] [place] [address] [id number] May, [place] [id number] [place] [address] [id number] May, Essential hypertension I10 ; Chronic pain syndrome G89.4 ; Pain in left shoulder M25.512 ; High risk medication use Z79.899 ; Chronic obstructive pulmonary disease, unspecified COPD type J44.9 ; S/P coronary artery stent placement Z95.5 ; Personal history of carotid stenosis Z86.79 ; Hyperlipidemia, unspecified hyperlipidemia E78.5 ; Decreased GFR R94.4 and Type 2 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 [place] [id number] [place] [address] [id number] May, Hemoglobin decreased R71.0 and Decreased GFR R94.4 [place] [address] [place] [address] [id number] May, Hemoglobin decreased R71.0 and Decreased GFR R94.4 [place] [id number] [place] [address] [id number] May, [address] [place] [address] [id number] May, [place] [id number] [place] [address] [id number] Apr, [place] [address] [place] [address] [id number] Apr, Type 2 diabetes mellitus with foot [...] unspecified hyperlipidemia E78.5 and Essential hypertension I10 [facility] [id number] [place] [address] [id number] Apr, [facility] [address] [place] [id number] [place] [address] [id number] Mar, [facility] [id number] [place] [address] [id number] Mar, [facility] [address] [place] [id number] [place] [phone] Mar, [facility] [address] [place] [id number] [place] [address] [id number] Feb, [facility] [address] [place] [id number] [place] [address] [id number] Feb, [facility] [address] [place] [id number] [place] [address] [id number] Feb, [facility] [address] [place] [id number] [place] [address] [id number] Jan, Type 2 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 ; Hypercholesterolemia E78.0 ; Chronic pain syndrome G89.4 ; Pain in left shoulder M25.512 and High risk medication use Z79.899 [facility] [address] [place] [id number] [place] [address] [id number] Jan, [facility] [address] [place] [id number] [place] [address] [id number] Jan, [facility] [address] [place] [id number] [place] [address] [id number] December, [facility] [address] [place] [id number] [place] [address] [id number] December, [facility] [address] [address] December, Diabetes type 2, uncontrolled E11.65 ; Type 2 diabetes mellitus with diabetic neuropathy E11.40 ; Peripheral vascular disease I73.9 ; 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 and 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 [facility] [id number] [place] [address] [id number] Nov, [facility] [place] [address] [id number][place] [id number] Nov, [facility] [place] [address] [id number] [place] [id number] Nov, [facility] [place] [address] [id number], [place] [id number] Nov, Right hip pain M25.551 [facility] [address] [place] [id number] [place] [address] 938297- [address] Nov, [facility] [address] [place] [id number] [place] [phone]- [phone] Nov, [facility] [place] [id number] [place] [address] [id number] Nov, Diabetes with neurological manifestations, type II or unspecified type, 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.60 [facility] [place] [id number] [place] [address] [id number] Nov, [facility] [place] [id number] [place] [address] [id number] Nov, [facility] [place] [address] [id number], [place] [id number] Oct, Diabetes type 2, uncontrolled E11.65 ; Type 2 diabetes mellitus with diabetic neuropathy, unspecified E11.40 and Low back pain M54.5 [facility] [place] [address] [id number][place] [id number] Oct, [facility] [place] [address] [id number], [place] [id number] Oct, [facility] [place] [address] [id number], [place] [id number] Oct, [facility] [place] [address] [id number], [place] [id number] Sep, [facility] [place] [address] [place] [id number] [place] [address] [id number] Sep, [facility] [address] [address] Sep, [facility] [place] [id number] [place] [address] [id number] Sep, [facility] [address] [facility] [id number][place] [phone] Sep, [facility] [id number] [place] [address] [id number] Aug, 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 [facility] [id number], [place] [id number] Aug, [facility] [id number] [place] [address] [id number] Aug, Allergic rhinitis due to pollen J30.[address] [id number], [place] [id number] Jul, [facility] [id number] [place] [address] [id number] Jul, [facility] [id number] [place] [address] [id number] Jul, [place] [id number] [place] [address] [id number] Jun, [facility] [id number] [place] [address] [id number] Jun, Thumb tendonitis M77.8 and Ringing in ear, bilateral H93.13 [address] [id number], [place] [id number] Jun, [facility] [id number], [place] [id number] May, [facility] [address] [place] [id number] [place] [address] 8[address]- 6[address] May, [facility] [address] [place] [address] [phone] May, Pre-op evaluation Z01.818 ; Encounter for immunization Z23 ; Type 2 diabetes mellitus with diabetic peripheral angiopathy without gangrene E11.51 ; Insulin long-term use Z79.4 ; Type 2 diabetes mellitus with foot ulcer E11.621 ; Peripheral vascular disease I73.9 ; Coronary artery disease involving tolowa dee-ni' coronary artery of tolowa dee-ni'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 ; S/P coronary artery stent placement Z95.5 ; Osteomyelitis of right foot, unspecified chronicity M86.9 and Chronic obstructive pulmonary disease, unspecified COPD type J44.9 [facility] [address] [address] May, [facility] [address] [id number] [place] [address] [id number] May, [facility] [address] [id number] May, Diabetes type 2, uncontrolled E11.65 ; Encounter for immunization Z23 ; Osteopenia M85.80 and Allergic rhinitis due to pollen J30.1 [facility] [address] [id number] [place] [address] [id number] May, Lumbago 724.2 [facility] [id number] [place] [address] [id number] Apr, [address] [id number] Apr, [facility] [id number] [place] [address] [id number] Apr, [facility] [address] [id number] [place] [address] [id number] Apr, [facility] [id number] [place] [address] [phone] Mar, [facility] [id number] [place] [address] [id number] Mar, [facility] [id number] [place] [address] [id number] Mar, [facility] [id number] [place] [address] [id number] Mar, [facility] [id number] [place] [address] [id number] Mar, [facility] [id number] [place] [address] [phone] Mar, [facility] [id number] [place] [address] [id number] Mar, [facility] [place] [id number], [place] [id number] Mar, Diabetes with neurological manifestations, type II or unspecified type, 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.60 and Severe obesity (BMI 35.0-35.9 with comorbidity) 278.01 [facility] [place] [address] [id number] [place] [id number] Mar, [facility] [id number] [place] [address] 21010- 2546 Mar, [facility] [id number] [place] [address] 70424- 2546 Feb, [facility] [address] [id number] [place] [id number] Feb, [facility] [address] [id number] [place] [id number] Feb, [facility] [address] [id number] [place] [id number] Feb, Diabetes with neurological manifestations, type II or unspecified type, 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.60 [facility] [id number] [place] [id number] Feb, [facility] [id number] [place] [address] 19210- 2546 Feb, [facility] [address] [id number][place] [id number] Feb, [facility] [id number] [place] [id number] Feb, Follow up V67.9 ; Diabetes with neurological manifestations, type II or unspecified type, 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.60 and Congestive heart failure 428.0 [facility] [address] [id number] [place] [id number] Jan, [facility] [address] [id number] [place] [id number] Jan, [facility] [address] [id number] [place] [id number] Jan, [facility] [address] [id number], [place] [id number] December, Otitis media with effusion 381.4 ; Left arm numbness 782.0 and Osteoporosis 733.00 [facility] [id number], [place] [id number] December, [facility] [id number][place] [id number] Nov, [facility] [id number], [place] [id number] Nov, Serous otitis media 381.4 and Lumbago 724.2 [facility] [id number] [place] [address] 80082- 5096 Nov, [facility] [place] [facility] [id number] [place] [address] 48224- 0716 Nov, [facility] [id number], [place] [id number] Oct, [facility] [id number] [place] [address] 44934- 5596 Oct, [facility] [id number], [place] [id number] Oct, [facility] [id number] [place] [address] 833289- 1653 Oct, [facility] [id number], [place] 845964371 Oct, [facility] [id number] [place] [address] 76786- 1266 Oct, [facility] [place] [facility] [id number] [address]- 8246 Sep, [facility] [place] [facility] [id number] [address]- 3086 Sep, [facility] [id number], [place] [id number] Sep, [facility] [id number] [address]- 6296 Sep, [facility] [address] [id number] [id number] Aug, [facility] [place] [facility] [address] [id number] [address]- 0931 Aug, [facility] [address] [id number] [place] [id number] Aug, [facility] [place] [facility] [address] [facility] [id number] [address]- 7713 Aug, [facility] [address] [id number], [place] [id number] Jul, [facility] [place] [facility] [address] [facility] [id number] [address]- 2168 Jul, [facility] [address] [facility] [id number][place] [id number] Jul, [facility] [place] [facility] [address] [facility] [id number] [address]- 6681 Jul, [facility] [address] [facility] [id number], [place] [id number] Jul, [facility] [place] [facility] [address] [facility] [id number] [address]- 1768 Jul, [facility] [address] [facility] [id number][place] 837319191 Jun, [facility] [place] [facility] [address] [facility] [id number] [address]- 8911 Jun, [facility] [address] [facility] [id number], [place] [id number] May, [facility] [place] [facility] [address] [facility] [id number] [address]- 1110 May, [facility] [address] [id number] [id number] May, [facility] [place] [facility] [address] [facility] [id number] [place] [address]- 8183 May, [facility] [address] [id number], [place] [id number] May, [facility] [place] [facility] [address] [facility] [id number] [address]- 3554 May, [facility] [address] [id number], [place] [id number] May, [facility] [address] [facility] [id number], [place] 157064425 May, [facility] [place] [facility] [address] [facility] [id number] [address]- 0581 May, [facility] [place] [facility] [address] [facility] [id number] [address]- 0097 May, [facility] [address] [facility] [id number], [place] [id number] May, [facility] [place] [facility] [address] [facility] [id number] [address]- 8825 May, [facility] [place] [facility] [id number] [address]- 8710 Apr, [facility] [address] [facility] [id number], [place] [id number] Apr, [facility] [place] [facility] [address] [facility] [id number] [address]- 1503 Apr, [facility] [address] [facility] [id number], [place] 828934007 Apr, [facility] [address] [facility] [id number], [place] 789779587 Apr, [facility] [place] [facility] [address] [facility] [id number] [address]- 4390 Apr, [facility] [facility] [address] [facility] [id number] [address]- 2532 Apr, [facility] [address] [facility] [id number], [place] [id number] Apr, [facility] [facility] [address] [facility] [id number] [address]- 0955 Apr, [facility] [address] [facility] [id number], [place] 585199924 Apr, [facility] [facility] [address] [facility] [id number] [address]- 5588 Apr, [facility] [address] [facility] [id number] [id number] Apr, [facility] [place] [facility] [address] [facility] [id number] [place] [address]- 6101 Apr, [facility] [address] [facility] [id number] [place] [id number] Apr, [facility] [place] [facility] [address] [facility] [id number] [address]- 1458 Apr, [facility] [address] [facility] [id number] [place] [id number] Apr, [facility] [place] [facility] [address] [id number] [address]- 4232 Apr, [facility] [address] [facility] [id number], [place] 519296979 Apr, [facility] [place] [facility] [address]00565100[place] [address]- 3540 Apr, [facility] [address] [facility] [id number], [place] [id number] Mar, [facility] [place] [facility] [address] [facility] [id number] [address]- 1586 Mar, [facility] [address] [id number], [place] [id number] Mar, [facility] [address] [facility] [id number], [place] 795213026 Mar, [facility] [place] [facility] [address] [facility] [id number] [address]- 6355 Mar, [facility] [place] [facility] [address] [facility] [id number] [address]- 1365 Mar, [facility] [address] [facility] [id number], [place] 832017981 Mar, [facility] [place] [facility] [address] [facility] [id number] [address]- 7411 Mar, [facility] [address] [id number] [id number] Mar, [facility] [place] [facility] [address] [id number] [place] [address]- 7838 Mar, [facility] [address] [id number] [place] [id number] Mar, [facility] [place] [facility] [address] [facility] [id number] [place] [address]- 3974 Mar, [facility] [address] [id number] [place] [id number] Mar, [facility] [place] [facility] [address] [facility] [id number] [place] [address]- 3040 Mar, [facility] [address] [facility] [id number] [place] [id number] Mar, [facility] [place] [facility] [address] [address]- 1251 Mar, [facility] [address] [facility] [id number] [place] [id number] Mar, [facility] [place] [facility] [address] [facility] [id number] [place] [address]- 6641 Mar, [facility] [address] [facility] [id number] [place] [id number] Mar, [facility] [place] [facility] [address] [facility] [id number] [place] [address]- 1817 Mar, [facility] [address] [id number] [place] [id number] Feb, [facility] [place] [facility] [address] [facility] [id number] [place] [address]- 4387 Feb, [facility] [address] [id number] [place] [id number] Feb, [facility] [place] [facility] [address] [facility] [id number] [place] 71101420- 5209 Feb, [facility] [address] [id number] [place] [id number] Feb, [facility] [place] [facility] [address] [id number] [place] [address]- 6670 Feb, [facility] [address] [id number] [place] [id number] Feb, [facility] [place] [facility] [address] [id number] [place] [address]- 4673 Feb, [facility] [address] [id number] [place] [id number] Feb, [facility] [place] [facility] [address] [id number] [place] [address]- 5198 Feb, [facility] [address] [id number] [place] [id number] Feb, [facility] [place] [facility] [address] [facility] [id number] [place] [address]- 1572 Feb, [facility] [address] [id number] [place] [id number] Feb, [facility] [place] [facility] [address] [facility] [id number] [place] [address]- 1956 Feb, [facility] [address] [id number] [place] [id number] Feb, [facility] [place] [facility] [address] [facility] [id number] [place] [address]- 0102 Feb, [facility] [address] [id number] [place] [id number] Feb, [facility] [place] [facility] [address] [facility] [id number] [place] [address]- 6264 Feb, [facility] [address] [id number] [place] [id number] Feb, [facility] [address] [id number] [place] [id number] Feb, [facility] [place] [facility] [address] [facility] [id number] [place] [address]- 4751 Feb, [facility] [place] [facility] [address] [facility] [id number] [place] [address]- 1003 Feb, [facility] [address] [id number] [place] [id number] Feb, [facility] [place] [facility] [address] [id number] [place] [address]- 2510 Feb, [facility] [address] [id number] [place] [id number] Feb, [facility] [place] [facility] [address] [id number] [place] [address]- 7304 Feb, [facility] [address] [id number] [place] [id number] Feb, [facility] [place] [facility] [address] [id number] [place] [address]- 9445 Feb, [facility] [address] [id number] [place] [id number] Jan, [facility] [place] [facility] [address] [id number] [place] [address]- 8376 Jan, [facility] [place] [facility] [address] [id number] [place] [address]- 7388 Jan, [facility] [place] [facility] [address] [facility] [id number] [place] [address]- 1013 Jan, [facility] [place] [facility] [address] [facility] [id number] [place] [address]- 1605 Jan, [facility] [place] [facility] [address] [id number] [place] [address]- 1687 Jan, [facility] [address] [id number] [place] [id number] Jan, [facility] [place] [facility] [address] [id number] [place] [address]- 2667 Jan, [facility] [place] [facility] [address] [facility] [id number] [place] [id number]- 7839 Jan, [facility] [place] [facility] [address] [id number] [place] [address]- 1216 Jan, [facility] [address] [id number] [place] [id number] Jan, [facility] [address] [id number] [place] [id number] Jan, [facility] [place] [facility] [address] [id number] [place] [address]- 5796 Jan, [facility] [place] [facility] [address] [id number] [place] [address]- 8916 Jan, [facility] [address] [id number] [place] [id number] Jan, [facility] [address] [id number] [place] [id number] Jan, [facility] [place] [facility] [address] [facility] [id number] [place] [address]- 9556 Jan, [facility] [place] [facility] [address] [facility] [id number] [place] [address]- 8077 Jan, [facility] [place] [facility] [address] [facility] [id number] [address]- 9707 Jan, [facility] [address] [facility] [id number] [place] [id number] December, [facility] [place] [facility] [address] [facility] [id number] [address]- 5232 December, [facility] [place] [facility] [address] [facility] [id number] [address]- 1788 December, [facility] [address] [id number], [place] 474195569 December, [facility] [place] [facility] [address] [id number] [place] [address]- 9518 December, [facility] [address] [id number] [place] [id number] December, [facility] [place] [facility] [address] [facility] [id number] [place] [address]- 8146 December, [facility] [address] [facility] [id number], [place] [id number] December, [facility] [place] [facility] [address] [facility] [id number] [address]- 4266 December, [facility] [address] [facility] [id number], [place] 920307918 Nov, [facility] [place] [facility] [address] [facility] [id number] [place] [address]- 6726 Nov, [facility] [address] [facility] [id number], [place] 830498105 Nov, [facility] [place] [facility] [address] [facility] [id number] [address]- 1965 Nov, [facility] [place] [facility] [address] [facility] [id number] [place] [address]- 6928 Nov, [facility] [place] [facility] [address] [facility] [id number] [address]- 9533 Nov, [facility] [place] [facility] [address]00565100[place] [address]- 6296 Oct, [facility] [id number], [place] [id number] Oct, [facility] [place] [facility] [address]00565100[place] [address]- 7780 Oct, [facility] [id number], [place] [id number] Oct, [facility] [place] [facility] [address] [id number] [address]- 1253 Oct, [facility] [address] [facility] [id number], [place] 105823346 Sep, [facility] [place] [facility] [address] [facility] [id number] [address]- 0922 Sep, [facility] [address] [facility] [id number], [place] [id number] Aug, [facility] [place] [facility] [address] [facility] [id number] [address]- 2907 Aug, [facility] [address] [facility] [id number], [place] [id number] Aug, [facility] [place] [facility] [address] [facility] [id number] [place] [address]- 3646 Aug, [facility] [place] [facility] [address] [facility] [id number] [address]- 3059 Aug, [facility] [address] [facility] [id number] [place] [id number] Aug, [facility] [place] [facility] [address] [facility] [id number] [address]- 6556 Aug, [facility] [place] [facility] [address] [facility] [id number] [place] [address]- 9430 Aug, [facility] [address] [facility] [id number] [place] [id number] Aug, [facility] [place] [facility] [address]00565100[place] [address]- 8209 Aug, [facility] [id number], [place] [id number] Jul, [facility] [place] [facility] [address] [facility] [id number] [address]- 0549 Jul, [facility] [address] [facility] [id number], [place] [id number] Jul, [facility] [place] [facility] [address] [facility] [id number] [address]- 0648 Jul, [facility] [address] [facility] [id number], [place] [id number] Jul, [facility] [place] [facility] [address] [facility] [id number] [address]- 8078 Jul, [facility] [address] [facility] [id number], [place] [id number] Jul, [facility] [place] [facility] [address] [facility] [id number] [address]- 4560 Jul, [facility] [address] [facility] [id number] [place] [id number] Jun, [facility] [place] [facility] [address] [facility] [id number] [address]- 0736 Jun, [facility] [address] [id number] [place] [id number] Jun, [facility] [address] [facility] [id number] [address]- 2450 Jun, [facility] [address] [facility] [id number] [address] 2545 Jun, [facility] [address] [facility] [id number] [address]- 3704 Jun, [facility] [address] [id number] [id number] Apr, [facility] [address] [id number] [place] [id number] Mar, [facility] [address] [id number] [place] [id number] Mar, [facility] [address] [id number] [place] [id number] Feb, [facility] [address] [id number] [place] [id number] Feb, [facility] [address] [id number] [place] [id number] Feb, [facility] [address] [id number] [place] [id number] December, [facility] [address] [id number] [place] [id number] December, [facility] [address] [facility] [id number] [address] December, [facility] [address] [id number] [place] [id number] December, [facility] [address] [id number] [place] [id number] December, [facility] [address] [id number] [place] [id number] Nov, [facility] [address] [id number] [place] [id number] Nov, [facility] [address] [id number] [place] [id number] Nov, [facility] [address] [id number] [place] [id number] Oct, [facility] [address] [id number] [place] [id number] Sep, [facility] [address] [id number] [place] [id number] Aug, [facility] [address] [facility] [id number] [place] [address] Aug, [facility] [address] [id number] [place] [id number] Aug, [facility] [address] [id number] [place] [id number] Jul, [facility] [id number] [address] Jul, [facility] [address] [id number][place] [id number] Jul, [facility] [id number] [address] Jul, [facility] [address] [facility] [id number][place] [id number] Jun, [facility] [id number] [address] [address] Jun, [facility] [address] [facility] [id number][place] [id number] May, [facility] [address] [facility] [id number] [place] [address] May, [facility] [address] [id number][place] [id number] May, [facility] [address] [facility] [id number] [place] [address] May, [facility] [address] [id number][place] [id number] Apr, [facility] [address] [id number], [place] [id number] Apr, [facility] [address] [id number] [place] [id number] Mar, [facility] [address] [id number] [place] [id number] Mar, [facility] [address] [id number] [place] [id number] Feb, [facility] [address] [id number] [place] [id number] Feb, [facility] [address] [id number] [place] [id number] Jan, [facility] [address] [id number] [place] [id number] Jan, [facility] [address] [id number] [place] [id number] Jan, [facility] [address] [id number] [place] [id number] Jan, [facility] [address] [id number] [place] [id number] December, [facility] [address] [id number] [place] [id number] December, [facility] [address] [facility] [id number] [place] [address] Nov, [facility] [address] [id number] [place] [id number] Nov, [facility] [address] [id number] [place] [id number] Nov, [facility] [address] [id number] [place] [id number] Nov, [facility] [address] [id number] [place] [id number] Nov, [facility] [address] [facility] [id number] [place] [address] Oct, [facility] [address] [facility] [id number] [place] [address] Oct, [facility] [address] [id number], [place] [id number] Oct, [facility] [address] [id number] [place] [id number] Oct, [facility] [address] [id number] [place] [id number] Oct, [facility] [address] [id number] [place] [id number] Oct, [facility] [address] [id number] [place] [id number] Oct, [facility] [address] [id number] [place] [id number] Oct, [facility] [address] [id number] [place] [id number] Oct, [facility] [address] [id number] [address] Oct, [facility] [address] [id number] [place] [id number] Sep, [facility] [address] [id number] [place] [id number] Sep, [facility] [address] [id number] [place] [id number] Aug, [facility] [address] [id number] [place] [id number] Aug, [facility] [id number] [address] Jul, [facility] [address] [id number] [address] Jul, [facility] [address] [id number] [address] Jul, [facility] [address] [place] [id number] [place] [address]- [address] Jul, [facility] [id number] [address] Jul, [facility] [address] [id number] [place] [address]- [address] Jul, [facility] [address] [id number] [address] Jul, [facility] [id number] [address] Jul, [facility] [address] [id number] [address] Jul, [facility] [id number] Jul, [facility] [id number] [address] Jul, [facility] [id number] [address] Jul, [facility] [id number] [address] Jul, [facility] [address] [id number] [address] Jul, IMMUNIZATIONS No Known Immunizations SOCIAL HISTORY [...] acute renal failure--2010. Secondary to ATN from [facility] 4.3 Medical History HX of dry [...] in the future. Medical History 05/26/17 noted, long term has ended and they feel he is [...] [facility] Surgical History amputation, toe-right third toe ([facility]) 2013 Surgical History Right eye retinal eye repair ([facility]) 09/2014 Surgical History heart cath with [...]
[2018-06-20] MEDS ORDERED: HYDROcodone/APAP 5 MG/325 MG (LORTAB) TAB PO PRN (10:15)
--- OUTSIDE RECORDS SUMMARY | 2018-06-20 10:15 | XMS REPORT ---
Author Author SATINDER GOOD [facility] Address [address] [place] [address] Care Team Providers Care Internet Webmaster Name Role Phone SATINDER GOOD Unavailable PROBLEMS Type Condition ICD9-CM Code LNZ49-UN Code Onset Dates Condition Status SNOMED Code Problem S/P coronary artery stent placement Z95.5 Active 985827210 Problem Type 2 diabetes mellitus with diabetic peripheral angiopathy without gangrene E11.51 Active 495286526 Problem Depression F32.9 Active 36899898 Problem Type 2 diabetes mellitus with diabetic neuropathy E11.40 Active 05617485 Problem Hyperlipidemia, unspecified hyperlipidemia E78.5 Active 33483997 Problem Coronary artery disease involving [facility] ira coronary artery of [facility] [place] ira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 Active 0936725783444 Problem Peripheral vascular disease I73.9 Active 597101413 Problem Chronic obstructive pulmonary disease, unspecified COPD type J44.9 Active 17291899 Problem Osteomyelitis of right foot, unspecified chronicity M86.9 Active 53620186 Problem CKD (chronic kidney disease) stage 3, GFR 30-59 ml/min N18.3 Active 604107231 Problem Type 2 diabetes mellitus with diabetic retinopathy, macular edema presence unspecified, with unspecified retinopathy severity E11.319 Active 73582509 Problem GERD without esophagitis K21.9 Active 835395941 Problem Bilateral low back pain without sciatica M54.5 Active 159322090 Problem Mixed hyperlipidemia E78.2 Active 100505002 Problem Frequent falls R29.6 Active 369574480 Problem Chronic kidney disease, unspecified N18.9 Active 578784417 Problem Other chronic pain G89.29 Active 12340321 Problem Chronic diarrhea K52.9 Active 542859551 Problem Hypercholesterolemia E78.0 Active 11692422 Problem 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 Active 430771141 Problem 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 Active 679632310 Problem Obesity (BMI 30.0-34.9) E66.9 Active 530449621290245 Problem Comprehensive diabetic foot examination, type 2 DM, encounter for E11.9 Active 44446538 Problem Uses walker Z99.89 Active 042700162 Problem Aphasia R47.01 Active 06114388 Problem Insulin long-term use Z79.4 Active 405231147 Problem Fatigue, unspecified type R53.83 Active 48658048 Problem Type 2 diabetes mellitus with foot ulcer E11.621 Active 511138219 Problem Pain in left shoulder M25.512 Active 22637491 Problem Type 2 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 Active 558957560 Problem Diabetes type 2, uncontrolled E11.65 Active 653855692 Problem Personal history of carotid stenosis Z86.79 Active 896848471 Problem Essential hypertension I10 Active 11358574 Problem CKD (chronic kidney disease), stage 3 (moderate) N18.3 Active 950662635 Problem Chronic pain syndrome G89.4 Active 152871540 Problem High risk medication use Z79.899 Active 122730409 ALLERGIES No Known Allergies ENCOUNTERS Encounter Location Date Diagnosis [place] [address] [id number] December, Medicare annual wellness visit, subsequent Z00.[address] [id number] Nov, Other chronic pain G89.[address] [id number] Oct, [place] [id number] [place] [address] [id number] Oct, [address] [id number] Oct, Other chronic pain G89.29 [place] [address] [id number] Sep, Other chronic pain G89.29 [place] [address] [id number] Aug, CKD (chronic kidney disease), stage 3 (moderate) N18.3 ; Anemia, unspecified type D64.9 and Dilated pore of Ly L70.[address] [facility] [place] [address] [place] [id number] Aug, Other chronic pain G89.29 ; Pain in left shoulder M25.512 ; High risk medication use Z79.899 ; Uses walker Z99.89 ; Diabetes type 2, uncontrolled E11.65 and Depression F32.9 [facility] [id number] [place] [address] [id number] Aug, Chronic diarrhea K52.9 [place] [id number] [place] [address] [id number] Aug, Chronic diarrhea K52.9 ; Type 2 diabetes mellitus with diabetic neuropathy E11.40 ; Diabetes type 2, uncontrolled E11.65 ; Insulin long-term use Z79.4 ; Chronic obstructive pulmonary disease, unspecified COPD type J44.9 ; Chronic pain syndrome G89.4 ; Pain in left shoulder M25.512 ; Uses walker Z99.89 ; S/P coronary artery stent placement Z95.5 ; Mixed hyperlipidemia E78.2 and Essential hypertension I10 [place] [id number] [place] [address] [id number] Aug, [place] [id number] [place] [address] [id number] Jul, Diabetes type 2, uncontrolled E11.65 [place] [id number] [place] [address] [id number] Jul, Diabetes type 2, uncontrolled E11.65 ; Type 2 diabetes mellitus with diabetic neuropathy E11.40 ; Insulin long-term use Z79.4 and Chronic obstructive pulmonary disease, unspecified COPD type J44.9 [facility] [id number] [place] [address] [id number] Jun, [facility] [id number] [place] [address] [id number] Jun, Essential hypertension I10 [place] [id number] [place] [address] [id number] Jun, Essential hypertension I10 [facility] [address] [place] [id number] [place] [address] [id number] Jun, Type 2 diabetes mellitus with diabetic neuropathy E11.40 ; Type 2 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 ; S/P coronary artery stent placement Z95.5 ; Obesity (BMI 30.0-34.9) E66.9 ; Mixed hyperlipidemia E78.2 ; Frequent falls R29.6 ; Chronic obstructive pulmonary disease, unspecified COPD type J44.9 ; Essential hypertension I10 ; Insulin long-term use Z79.4 and High risk medication use Z79.899 [address] [place] [address] [id number] May, Diarrhea, unspecified type R19.7 ; Type 2 diabetes mellitus with diabetic neuropathy E11.40 ; Chronic obstructive pulmonary disease, unspecified COPD type J44.9 ; S/P coronary artery stent placement Z95.5 ; High risk medication use Z79.899 ; Essential hypertension I10 ; Encounter for administration of vaccine Z23 and Encounter for immunization Z23 [address] [id number] [id number] May, Chronic obstructive pulmonary disease, unspecified COPD type J44.9 [address] [place] [address] [id number] May, Type 2 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 ; Encounter for immunization Z23 ; Needs flu shot Z23 ; Comprehensive diabetic foot examination, type 2 DM, encounter for E11.9 and Obesity (BMI 30.0-34.9) E66.9 [address] [place] [address] [id number] May, [address] [place] [address] [id number] Apr, [place] [id number] [place] [address] [id number] Apr, Essential hypertension I10 and Aphasia R47.01 [place] [id number] [place] [address] [id number] Apr, [place] [address] [place] [address] [id number] Apr, Type 2 diabetes mellitus with diabetic neuropathy E11.40 ; Frequent falls R29.6 ; Essential hypertension I10 ; S/P coronary artery stent placement Z95.5 ; High risk medication use Z79.899 ; Hyperlipidemia, unspecified hyperlipidemia E78.5 ; CKD (chronic kidney disease), stage 3 (moderate) N18.3 ; Pain in left shoulder M25.512 and Chronic obstructive pulmonary disease, unspecified COPD type J44.9 [facility] [address] [place] [id number] [place] [address] [id number] Mar, [facility] [place] [address] [place] [id number] [place] [address] [id number] Mar, Type 2 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 ; Leg wound, left, initial encounter S81.802A ; Hx of shoulder surgery Z98.890 ; Acute pain of left shoulder M25.512 and Fall, initial encounter W19.XXXA [facility] [place] [address] [id number] Feb, Follow-up exam Z09 ; Hx of shoulder surgery Z98.890 ; Acute pain of left shoulder M25.512 ; Essential hypertension I10 and Leg wound, left, initial encounter S81.802A [facility] [address] [place] [id number] [place] [address] [id number] Feb, [facility] [address] [place] [id number] [place] [address] [id number] Feb, [facility] [address] [place] [id number] [place] [address] [id number] Feb, Chronic obstructive pulmonary disease, unspecified COPD type J44.9 [facility] [address] [place] [id number] [place] [address] [id number] Feb, [place] [address] [place] [id number] [place] [address] [id number] Jan, Generalized weakness R53.1 ; Exertional shortness of breath R06.02 and Fungal rash of trunk B36.[address] [facility] [place] [address] [place] [id number] [place] [address] [id number] Jan, [facility] [place] [address] [place] [id number] [place] [address] [id number] Jan, [facility] [place] [address] [place] [id number] [place] [address] [id number] Jan, [facility] [address] [place] [id number] [place] [address] [id number] Jan, [address] [id number] [id number] December, High risk medication use Z79.899 [address] [id number] December, Type 2 diabetes mellitus with diabetic neuropathy E11.[address] [id number][place] [id number] December, High risk medication use Z79.899 [address] [place] [address] [id number] Nov, Diabetes type 2, uncontrolled E11.65 [address] [place] [address] [id number] Nov, Medicare annual wellness visit, initial Z00.00 ; Bilateral low back pain without sciatica M54.5 ; Pain in left shoulder M25.512 ; Chronic pain syndrome G89.4 ; Type 2 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 ; High risk medication use Z79.899 and Encounter for immunization Z23 [address] [place] [address] [id number] Nov, Type 2 diabetes mellitus with diabetic neuropathy E11.40 ; Coronary artery disease involving [facility] michael ira coronary artery of [facility] michael ira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 and CKD (chronic kidney disease), stage 3 (moderate) N18.[address] [id number] [id number] Oct, Type 2 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 ; Chronic pain syndrome G89.4 ; Chronic obstructive pulmonary disease, unspecified COPD type J44.9 ; Chronic kidney disease, unspecified N18.9 and Rash R21 [place] [address] [facility] [id number][place] [id number] Oct, Type 2 diabetes mellitus with diabetic neuropathy E11.[address] [id number][place] [id number] Oct, Rash R21 and Impetigo L01.[address] [id number][place] [id number] Oct, Chronic pain syndrome G89.4 [facility] [id number] [id number] Oct, [facility] [id number] [place] [address] [id number] Sep, Sebaceous cyst L72.3 [facility] [id number][place] [id number] Sep, Sebaceous cyst L72.3 [facility] [address] [place] [id number] [place] [address] [id number] Sep, Chronic pain syndrome G89.4 ; Pain in left shoulder M25.512 and Effusion of olecranon bursa, left M25.422 [facility] [address] [id number] [address] Aug, [facility] [id number] [place] [address] [id number] Aug, [facility] [address] [place] [id number] [place] [address] [id number] Aug, Mixed hyperlipidemia E78.2 and Chronic kidney disease, unspecified N18.9 [facility] [address] [place] [id number] [place] [address] [id number] Jul, Type 2 diabetes mellitus with diabetic neuropathy E11.40 ; Essential hypertension I10 and S/P coronary artery stent placement Z95.5 [facility] [id number] [place] [address] [id number] Jul, 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 [place] [id number] [place] [address] [id number] Jul, Diabetes type 2, uncontrolled E11.65 ; Essential hypertension I10 and 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 [place] [id number] [place] [address] [id number] Jul, [facility] [id number] [place] [address] [id number] Jul, [facility] [id number] [place] [address] [id number] Jul, [facility] [address] [place] [id number] [place] [address] [id number] Jul, Chronic obstructive pulmonary disease, unspecified COPD type J44.9 [address] [place] [address] [id number] Jun, CKD (chronic kidney disease), stage 3 (moderate) N18.3 and Anemia, unspecified type D64.9 [address] [place] [address] [id number] Jun, Type 2 diabetes mellitus with diabetic neuropathy E11.40 ; Decreased GFR R94.4 ; CKD (chronic kidney disease), stage 3 (moderate) N18.3 and Decreased hemoglobin R71.0 [place] [id number] [place] [address] [id number] Jun, CKD (chronic kidney disease), stage 3 (moderate) N18.3 and Anemia, unspecified type D64.9 [address] [place] [address] [id number] Jun, Type 2 diabetes mellitus with diabetic neuropathy E11.40 ; Decreased GFR R94.4 and CKD (chronic kidney disease), stage 3 (moderate) N18.3 [address] [place] [address] [id number] Jun, Type 2 diabetes mellitus with diabetic neuropathy E11.40 and Essential hypertension I10 [address] [place] [address] [id number] Jun, [place] [id number] [place] [address] [id number] Jun, [place] [address] [place] [address] [id number] Jun, Type 2 diabetes mellitus with diabetic neuropathy E11.40 ; S/P coronary artery stent placement Z95.5 ; Chronic obstructive pulmonary disease, unspecified COPD type J44.9 ; Essential hypertension I10 ; GERD without esophagitis K21.9 ; Peripheral vascular disease I73.9 ; Mixed hyperlipidemia E78.2 and Hospital discharge follow-up Z09 [place] [id number] [place] [address] [id number] Jun, [address] [id number] May, Depression F32.9 and Hyperlipidemia, unspecified hyperlipidemia E78.5 [facility] [address]100[place] [phone] May, [address] [place] [address] [id number] May, [place] [id number] [place] [address] [id number] May, Essential hypertension I10 ; Chronic pain syndrome G89.4 ; Pain in left shoulder M25.512 ; High risk medication use Z79.899 ; Chronic obstructive pulmonary disease, unspecified COPD type J44.9 ; S/P coronary artery stent placement Z95.5 ; Personal history of carotid stenosis Z86.79 ; Hyperlipidemia, unspecified hyperlipidemia E78.5 ; Decreased GFR R94.4 and Type 2 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 [address] [place] [address] [id number] May, Hemoglobin decreased R71.0 and Decreased GFR R94.4 [address] [place] [address] [id number] May, Hemoglobin decreased R71.0 and Decreased GFR R94.4 [place] [id number] [place] [address] [id number] May, [address] [place] [address] [id number] May, [place] [id number] [place] [address] [id number] Apr, [place] [id number] [place] [address] [id number] Apr, Type 2 diabetes mellitus with foot [...] unspecified hyperlipidemia E78.5 and Essential hypertension I10 [facility] [id number][place] [id number] Apr, [facility] [address] [place] [id number] [place] [address] [id number] Mar, [facility] [id number] [place] [address] [id number] Mar, [facility] [address] [place] [id number] [place] [address] [phone] Mar, [facility] [address] [place] [id number] [place] [address] [id number] Feb, [facility] [address] [place] [id number] [place] [address] [id number] Feb, [facility] [address] [place] [id number] [place] [address] [id number] Feb, [facility] [address] [place] [id number] [place] [address] [id number] Jan, Type 2 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 ; Hypercholesterolemia E78.0 ; Chronic pain syndrome G89.4 ; Pain in left shoulder M25.512 and High risk medication use Z79.899 [facility] [id number] [place] [address] [id number] Jan, [facility] [address] [place] [id number] [place] [address] [id number] Jan, [facility] [id number] [place] [address] [id number] December, [facility] [address] [place] [id number] [place] [address] [id number] December, [facility] [address]65100[place] [address] December, Diabetes type 2, uncontrolled E11.65 ; Type 2 diabetes mellitus with diabetic neuropathy E11.40 ; Peripheral vascular disease I73.9 ; 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 and 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 [facility] [id number] [place] [address] [id number] Nov, [facility] [address] [id number][place] [id number] Nov, [facility] [place] [address] [id number] [place] [id number] Nov, [facility] [place] [address] [id number] [id number] Nov, Right hip pain M25.551 [facility] [address] [place] [id number] [place] [address] [phone] Nov, [facility] [address] [place] [id number] [place] [address] 43[address]- 2546 Nov, [facility] [id number] [place] [address] [id number] Nov, Diabetes with neurological manifestations, type II or unspecified type, 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.[address] [facility] [place] [id number] [place] [address] [id number] Nov, [facility] [place] [id number] [place] [address] [id number] Nov, [facility] [address] [id number][place] [id number] Oct, Diabetes type 2, uncontrolled E11.65 ; Type 2 diabetes mellitus with diabetic neuropathy, unspecified E11.40 and Low back pain M54.[address] [facility] [place] [address] [id number], [place] [id number] Oct, [facility] [place] [address] [id number][place] [id number] Oct, [facility] [place] [address] [id number][place] [id number] Oct, [facility] [place] [address] [id number], [place] [id number] Sep, [facility] [address] [place] [id number] [place] [address] [id number] Sep, [facility] [id number] [place] [address]- 2546 Sep, [facility] [id number] [place] [address] [id number] Sep, [facility] [address] [facility] [id number][place] [id number] Sep, [facility] [id number] [place] [address] [id number] Aug, 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 [facility] [id number], [place] [id number] Aug, [facility] [id number] [place] [address] [id number] Aug, Allergic rhinitis due to pollen J30.[address] [id number], [place] [id number] Jul, [facility] [id number] [place] [address] [id number] Jul, [facility] [id number] [place] [address] [id number] Jul, [place] [address] [id number] [place] [address] [id number] Jun, [facility] [id number] [place] [address] [id number] Jun, Thumb tendonitis M77.8 and Ringing in ear, bilateral H93.[address] [id number], [place] [id number] Jun, [facility] [address] [place] [id number], [place] [id number] May, [facility] [address] [place] [id number] [place] [address] 33683- 2546 May, [facility] [id number] [place] [address] 08098 2545 May, Pre-op evaluation Z01.818 ; Encounter for immunization Z23 ; Type 2 diabetes mellitus with diabetic peripheral angiopathy without gangrene E11.51 ; Insulin long-term use Z79.4 ; Type 2 diabetes mellitus with foot ulcer E11.621 ; Peripheral vascular disease I73.9 ; Coronary artery disease involving [facility] ira coronary artery of [facility] ir[place]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 ; S/P coronary artery stent placement Z95.5 ; Osteomyelitis of right foot, unspecified chronicity M86.9 and Chronic obstructive pulmonary disease, unspecified COPD type J44.9 [facility] [address] [address] May, [facility] [address] [place] [id number] [place] [address] [id number] May, [facility] [address] [id number] May, Diabetes type 2, uncontrolled E11.65 ; Encounter for immunization Z23 ; Osteopenia M85.80 and Allergic rhinitis due to pollen J30.1 [facility] [address] [id number] May, Lumbago 724.2 [facility] [address] [id number] [place] [address] [id number] Apr, [address] [id number] Apr, [facility] [address] [place] [id number] [place] [address] [id number] Apr, [facility] [address] [place] [id number] [place] [address] [id number] Apr, [facility] [id number] [place] [address] [phone] Mar, [facility] [id number] [place] [address] [id number] Mar, [facility] [id number] [place] [address] [id number] Mar, [facility] [address] [id number] [place] [address] [id number] Mar, [facility] [address] [id number] Mar, [facility] [id number] [place] [address] [phone] Mar, [facility] [id number] [place] [address] [id number] Mar, [facility] [place] [id number][place] [id number] Mar, Diabetes with neurological manifestations, type II or unspecified type, 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.60 and Severe obesity (BMI 35.0-35.9 with comorbidity) 278.01 [facility] [place] [address] [id number] [id number] Mar, [facility] [address] [address] Mar, [facility] [id number] [place] [address]- 2546 Feb, [facility] [id number] [place] [address] [id number] Feb, [facility] [id number], [place] [id number] Feb, [facility] [address] [id number] [place] [address] [id number] Feb, Diabetes with neurological manifestations, type II or unspecified type, 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.60 [facility] [address] [id number] [place] [id number] Feb, [facility] [id number] [place] [address]16- 2546 Feb, [facility] [id number][place] [id number] Feb, [facility] [id number], [place] [id number] Feb, Follow up V67.9 ; Diabetes with neurological manifestations, type II or unspecified type, 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.60 and Congestive heart failure 428.0 [facility] [address] [id number], [place] [id number] Jan, [facility] [address] [id number][place] [id number] Jan, [facility] [address] [id number][place] [id number] Jan, [facility] [address] [id number][place] [id number] December, Otitis media with effusion 381.4 ; Left arm numbness 782.0 and Osteoporosis 733.00 [facility] [id number], [place] [id number] December, [facility] [id number], [place] [id number] Nov, [facility] [id number], [place] [id number] Nov, Serous otitis media 381.4 and Lumbago 724.2 [facility] [id number] [place] [address]58- 8266 Nov, [facility] [id number] [place] [address] 73140- 7836 Nov, [facility] [id number], [place] [id number] Oct, [facility] [id number] [place] [address] 50111- 6356 Oct, [facility] [id number], [place] [id number] Oct, [facility] [id number] [place] [address]59- 8930 Oct, [facility] [id number], [place] [id number] Oct, [facility] [id number] [address]- 9[address] Oct, [facility] [place] [facility] [id number] [address]- 6536 Sep, [facility] [place] [facility] [id number] [address]- 0276 Sep, [facility] [address] [id number], [place] [id number] Sep, [facility] [id number] [address]- [address]396 Sep, [facility] [address] [facility] [id number] [place] [id number] Aug, [facility] [place] [facility] [address] [facility] [id number] [address]- 9761 Aug, [facility] [address] [facility] [id number], [place] [id number] Aug, [facility] [place] [facility] [address] [facility] [id number] [address]- 2720 Aug, [facility] [address] [facility] [id number], [place] [id number] Jul, [facility] [place] [facility] [address] [facility] [id number] [address]- 5913 Jul, [facility] [address] [facility] [id number], [place] [id number] Jul, [facility] [place] [facility] [address]00565100[place] [address] Jul, [facility] [address] [facility] [id number], [place] [id number] Jul, [facility] [place] [facility] [address] [facility] [id number], [place] 056587- 4091 Jul, [facility] [address] [facility] [id number], [place] [id number] Jun, [facility] [place] [facility] [address] [facility] [id number] [address]- 9373 Jun, [facility] [address] [facility] [id number], [place] [id number] May, [facility] [place] [facility] [address] [facility] [id number] [address]- 0081 May, [facility] [address] [facility] [id number], [place] [id number] May, [facility] [place] [facility] [address] [facility] [id number] [address]- 7471 May, [facility] [address] [facility] [id number], [place] [id number] May, [facility] [place] [facility] [address] [facility] [id number] [address]- 3242 May, [facility] [address] [id number], [place] [id number] May, [facility] [address] [facility] [id number], [place] [id number] May, [facility] [place] [facility] [address] [facility] [id number] [address]- 4498 May, [facility] [place] [facility] [address] [facility] [id number] [address]- 7653 May, [facility] [address] [facility] [id number], [place] [id number] May, [facility] [place] [facility] [address] [facility] [id number] [address]- 0073 May, [facility] [place] [facility] [address]00565100[place] [address]- 4627 Apr, [facility] [address] [facility] [id number], [place] [id number] Apr, [facility] [place] [facility] [address] [facility] [id number] [address]- 5572 Apr, [facility] [address] [facility] [id number], [place] [id number] Apr, [facility] [address] [facility] [id number], [place] [id number] Apr, [facility] [place] [facility] [address] [facility] [id number] [address]- 0066 Apr, [facility] [place] [facility] [address] [facility] [id number] [address]- 4651 Apr, [facility] [address] [facility] [id number], [place] [id number] Apr, [facility] [place] [facility] [address] [facility] [id number] [address]- 9205 Apr, [facility] [address] [facility] [id number], [place] [id number] Apr, [facility] [place] [facility] [address] [facility] [id number] [address]- 0855 Apr, [facility] [address] [facility] [id number], [place] 642184180 Apr, [facility] [place] [facility] [address] [facility] [id number] [address]- 9030 Apr, [facility] [address] [facility] [id number], [place] [id number] Apr, [facility] [place] [facility] [address] [facility] [id number] [address]- 5365 Apr, [facility] [address] [facility] [id number], [place] 914821212 Apr, [facility] [place] [facility] [address]00565100[place] [address]- 4221 Apr, [facility] [address] [facility] [id number], [place] 711703543 Apr, [facility] [place] [facility] [address]00565100[place] [address]- 2493 Apr, [facility] [address] [facility] [id number], [place] [id number] Mar, [facility] [place] [facility] [address]00565100[place] [address]- 3927 Mar, [facility] [address] [id number], [place] [id number] Mar, [facility] [address] [facility] [id number], [place] [id number] Mar, [facility] [place] [facility] [address] [facility] [id number] [address]- 3051 Mar, [facility] [place] [facility] [address] [facility] [id number] [address]- 7867 Mar, [facility] [address] [facility] [id number], [place] [id number] Mar, [facility] [place] [facility] [address] [facility] [id number] [address]- 4554 Mar, [facility] [address] [id number] [place] [id number] Mar, [facility] [place] [facility] [address] [id number] [place] [address]- 7933 Mar, [facility] [address] [id number] [place] [id number] Mar, [facility] [place] [facility] [address] [facility] [id number] [place] [address]- 2614 Mar, [facility] [address] [id number] [place] [id number] Mar, [facility] [place] [facility] [address] [facility] [id number] [place] [address]- 4150 Mar, [facility] [address] [id number] [place] [id number] Mar, [facility] [place] [facility] [address] [facility] [id number] [address]- 1079 Mar, [facility] [address] [id number] [place] [id number] Mar, [facility] [place] [facility] [address] [facility] [id number] [address]- 3092 Mar, [facility] [address] [facility] [id number] [place] [id number] Mar, [facility] [place] [facility] [address] [facility] [id number] [address]- 9029 Mar, [facility] [address] [id number] [place] [id number] Feb, [facility] [place] [facility] [address] [id number] [place] [address]- 1446 Feb, [facility] [address] [id number] [place] [id number] Feb, [facility] [place] [facility] [address] [id number] [place] [address]- 7604 Feb, [facility] [address] [id number] [place] [id number] Feb, [facility] [place] [facility] [address] [id number] [place] [address]- 2748 Feb, [facility] [address] [id number] [place] [id number] Feb, [facility] [place] [facility] [address] [id number] [place] [address]- 3972 Feb, [facility] [address] [id number] [place] [id number] Feb, [facility] [place] [facility] [address] [id number] [place] [address]- 7787 Feb, [facility] [address] [id number] [place] [id number] Feb, [facility] [place] [facility] [address] [facility] [id number] [place] [address]- 3466 Feb, [facility] [address] [id number] [place] [id number] Feb, [facility] [place] [facility] [address] [facility] [id number] [place] [address]- 2984 Feb, [facility] [address] [id number] [place] [id number] Feb, [facility] [place] [facility] [address] [facility] [id number] [place] [address]- 5550 Feb, [facility] [address] [id number] [place] [id number] Feb, [facility] [place] [facility] [address] [facility] [id number] [place] [address]- 0621 Feb, [facility] [address] [id number] [place] 706007552 Feb, [facility] [address] [id number] [place] [id number] Feb, [facility] [place] [facility] [address] [facility] [id number] [place] [address]- 9544 Feb, [facility] [place] [facility] [address] [facility] [id number] [place] [address]- 6298 Feb, [facility] [address] [id number] [place] 018416497 Feb, [facility] [place] [facility] [address] [id number] [place] [address]- 0111 Feb, [facility] [address] [id number] [place] [id number] Feb, [facility] [place] [facility] [address] [id number] [place] [address]- 9176 Feb, [facility] [address] [id number] [place] [id number] Feb, [facility] [place] [facility] [address] [id number] [place] [address]- 8980 Feb, [facility] [address] [id number] [place] [id number] Jan, [facility] [place] [facility] [address] [id number] [place] [address]- 1032 Jan, [facility] [place] [facility] [address] [id number] [place] [address]- 9866 Jan, [facility] [place] [facility] [address] [id number] [place] [address]- 9219 Jan, [facility] [place] [facility] [address] [facility] [id number] [place] [address]- 9533 Jan, [facility] [place] [facility] [address] [id number] [place] [address]- 1295 Jan, [facility] [address] [id number] [place] [id number] Jan, [facility] [place] [facility] [address] [id number] [place] [address]- 5667 Jan, [facility] [place] [facility] [address] [facility] [id number] [place] 30456795- 9018 Jan, [facility] [place] [facility] [address] [id number] [place] [address]- 5820 Jan, [facility] [address] [id number] [place] 776177550 Jan, [facility] [address] [id number] [place] [id number] Jan, [facility] [place] [facility] [address] [id number] [place] [address]- 1696 Jan, [facility] [place] [facility] [address] [facility] [id number] [place] [address] 2546 Jan, [facility] [address] [id number] [place] [id number] Jan, [facility] [address] [id number] [place] [id number] Jan, [facility] [place] [facility] [address] [facility] [id number] [place] [address]- 3426 Jan, [facility] [place] [facility] [address] [facility] [id number] [place] [address]- 5496 Jan, [facility] [place] [facility] [address] [facility] [id number] [address]- 9800 Jan, [facility] [address] [facility] [id number] [place] [id number] December, [facility] [place] [facility] [address] [facility] [id number] [address]- 4676 December, [facility] [place] [facility] [address] [facility] [id number] [address]- 1726 December, [facility] [address] [id number], [place] [id number] December, [facility] [place] [facility] [address] [id number] [address]- 3316 December, [facility] [address] [facility] [id number] [place] 873008575 December, [facility] [place] [facility] [address] [facility] [id number] [place] [address]- 2546 December, [facility] [address] [facility] [id number], [place] [id number] December, [facility] [place] [facility] [address] [facility] [id number] [address]- 0456 December, [facility] [address] [facility] [id number], [place] [id number] Nov, [facility] [place] [facility] [address] [facility] [id number] [place] [address]- 7916 Nov, [facility] [address] [facility] [id number], [place] 680419698 Nov, [facility] [place] [facility] [address] [facility] [id number] [place] [address]- 9290 Nov, [facility] [place] [facility] [address] [facility] [id number] [place] [address]- 1574 Nov, [facility] [place] [facility] [address] [facility] [id number] [place] [address]- 6904 Nov, [facility] [place] [facility] [id number] [address]- 5176 Oct, [facility] [id number], [place] [id number] Oct, [facility] [place] [facility] [address]00565100[place] [address]- 9969 Oct, [facility] [id number], [place] [id number] Oct, [facility] [place] [facility] [address] [id number], [place] [address]- 7416 Oct, [facility] [address] [facility] [id number], [place] 083011431 Sep, [facility] [place] [facility] [address] [facility] [id number] [address]- 3736 Sep, [facility] [address] [facility] [id number], [place] [id number] Aug, [facility] [place] [facility] [address] [facility] [id number], [place] [address]- 2416 Aug, [facility] [address] [id number], [place] 540200911 Aug, [facility] [place] [facility] [address] [facility] [id number] [place] [address]- 8548 Aug, [facility] [place] [facility] [address] [facility] [id number] [address]- 5935 Aug, [facility] [address] [facility] [id number] [place] [id number] Aug, [facility] [place] [facility] [address] [facility] [id number] [address]- 6784 Aug, [facility] [place] [facility] [address] [facility] [id number] [place] [address]- 5732 Aug, [facility] [address] [facility] [id number] [place] [id number] Aug, [facility] [place] [facility] [address] [id number], [place] [address]- 0165 Aug, [facility] [address] [id number], [place] [id number] Jul, [facility] [place] [facility] [address] [facility] [id number] [address]- 1909 Jul, [facility] [address] [facility] [id number], [place] [id number] Jul, [facility] [place] [facility] [address] [facility] [id number] [address]- 7800 Jul, [facility] [address] [facility] [id number], [place] 001122553 Jul, [facility] [place] [facility] [address] [facility] [id number] [address] Jul, [facility] [place] [address] [facility] [id number][place] [id number] Jul, [facility] [address] [facility] [id number] [address] Jul, [facility] [place] [address] [facility] [id number] [place] [id number] Jun, [facility] [address] [facility] [id number] [address] Jun, [facility] [place] [address] [id number] [place] [id number] Jun, [facility] [address] [facility] [id number] [address] Jun, [facility] [address] [facility] [id number][place] [address] Jun, [facility] [address] [facility] [id number] [address] Jun, [facility] [place] [address] [id number] [place] [id number] Apr, [facility] [place] [address] [id number] [place] [id number] Mar, [facility] [place] [address] [id number] [place] [id number] Mar, [facility] [place] [address] [id number] [place] [id number] Feb, [facility] [place] [address] [id number] [place] [id number] Feb, [facility] [place] [address] [id number] [place] [id number] Feb, [facility] [place] [address] [id number] [place] [id number] December, [facility] [place] [address] [id number] [place] [id number] December, [facility] [address] [facility] [id number][place] [address] December, [facility] [place] [address] [id number] [place] [id number] December, [facility] [place] [address] [id number] [place] [id number] December, [facility] [place] [address] [id number] [place] [id number] Nov, [facility] [place] [address] [id number] [place] [id number] Nov, [facility] [place] [address] [id number] [place] [id number] Nov, [facility] [place] [address] [id number] [place] [id number] Oct, [facility] [place] [address] [id number] [place] [id number] Sep, [facility] [place] [address] [id number] [place] [id number] Aug, [facility] [address] [facility] [id number] [address] Aug, [facility] [place] [address] [id number] [place] [id number] Aug, [facility] [place] [address] [id number] [place] [id number] Jul, [facility] [id number] [address] Jul, [facility] [place] [address] [id number][place] [id number] Jul, [facility] [address] [facility] [id number][place] [address] Jul, [facility] [place] [address] [facility] [id number][place] [id number] Jun, [facility] [address] [facility] [id number][place] [address] Jun, [facility] [address] [id number][place] [id number] May, [facility] [address] [facility] [id number][place] [address] May, [facility] [address] [id number][place] [id number] May, [facility] [address] [facility] [id number], [place] [address] May, [facility] [address] [id number][place] [id number] Apr, [facility] [address] [id number], [place] [id number] Apr, [facility] [place] [address] [id number] [place] [id number] Mar, [facility] [place] [address] [id number] [place] [id number] Mar, [facility] [place] [address] [id number] [place] [id number] Feb, [facility] [place] [address] [id number] [place] [id number] Feb, [facility] [place] [address] [id number] [place] [id number] Jan, [facility] [place] [address] [id number] [place] [id number] Jan, [facility] [place] [address] [id number] [place] [id number] Jan, [facility] [place] [address] [id number] [place] [id number] Jan, [facility] [place] [address] [id number] [place] [id number] December, [facility] [place] [address] [id number] [place] [id number] December, [facility] [address] [facility] [id number][place] [address] Nov, [facility] [place] [address] [id number] [place] [id number] Nov, [facility] [place] [address] [id number] [place] [id number] Nov, [facility] [place] [address] [id number] [place] [id number] Nov, [facility] [place] [address] [id number] [place] [id number] Nov, [facility] [address] [facility] [id number] [address] Oct, [facility] [address] [facility] [facility] [id number] [address] Oct, [facility] [place] [address] [id number] [place] [id number] Oct, [facility] [place] [address] [id number] [place] [id number] Oct, [facility] [place] [address] [id number] [place] [id number] Oct, [facility] [place] [address] [id number] [place] [id number] Oct, [facility] [place] [address] [id number] [place] [id number] Oct, [facility] [place] [address] [id number] [place] [id number] Oct, [facility] [address] [id number] [place] [id number] Oct, [facility] [address] [id number] [address] Oct, [facility] [address] [id number] [place] [id number] Sep, [facility] [address] [id number] [place] [id number] Sep, [facility] [address] [id number] [place] [id number] Aug, [facility] [place] [address] [id number] [place] [id number] Aug, [facility] [id number] [address] Jul, [facility] [id number] [place] [id number] Jul, [facility] [id number] [address] Jul, [facility] [id number] [place] [address] Jul, [facility] [id number] [place] [address] Jul, [facility] [id number] [place] [address] Jul, [facility] [address] [facility] [id number], [place] [address] Jul, [facility] [address] [facility] [id number] [address] Jul, [facility] [address] [id number] [address] Jul, [facility] [address] [facility] [id number] [address] Jul, [facility] [address] [id number] [address] Jul, [facility] [id number] [address] Jul, [facility] [address] [id number] [address] Jul, [facility] [address] [id number], [place] [address] Jul, IMMUNIZATIONS No Known Immunizations SOCIAL HISTORY Never Assessed REASON FOR VISIT Frequent Falling Chad GRIMALDO PLAN OF CARE Activity Details Follow Up 2 Months Reason:CHM DM/ HTN VITAL SIGNS Height 69 in 2017-04-30 Weight 223 lbs 2017-04-30 Heart Rate 78 bpm 2017-04-30 Respiratory Rate 16 2017-04-30 BMI 32.93 kg/m2 2017-04-30 Blood pressure systolic 118 mmHg 2017-04-30 Blood pressure diastolic 76 mmHg 2017-04-30 MEDICATIONS Medication Instructions Dosage Frequency Start Date End Date Duration Status Lancets - subcutaneously 3 times a day as directed 8h 07 Jun, 2016 Active Symbicort 160-4.5 mcg/act Inhalation Twice a day (morning and evening) inhale 2 puffs Active Hydrocodone-Acetaminophen 325-7.5 MG Orally once per day 1 tablet as needed 22 days Active Mupirocin 2 % Externally Three times a day 1 application to affected area 8h 14 days Active Domingo Contour Test - TEST BLOOD SUGAR (4) TIMES DAILY. Active Triamcinolone Acetonide 0.5 % Externally Twice a day 1 application to affected area 12h 15 Oct, 2016 Active Megestrol Acetate 40 mg Orally Once a day at HS 1 tablet Active Folic Acid 1 MG Orally Once a day 1 tablet 24h 20 Jul, 2016 Active Baclofen 10 mg Orally 2 times a day 1 tablet with food or milk 12h Active Aspirin Adult Low Strength 81 MG Orally Once a day 1 tablet 24h Active Walker - Rolator walker with seat and hand brakes 30 Jan, 2017 Active Escitalopram Oxalate 10 MG TAKE ONE (1) TABLET BY MOUTH DAILY... Active Lisinopril 10 MG Orally Once a day 1 tablet 24h Active Prilosec 20 MG TAKE ONE (1) CAPSULE BY MOUTH ONCE DAILY... Active Calcium + D3 600-200 MG-UNIT Orally 2 times a day 1 tablet 12h Active Levemir Flexpen 100 UNIT/ML Subcutaneous 2 times a day 35 units 12h Active Lasix 20 MG TAKE (1/2) TABLET BY MOUTH ONCE DAILY... Active UltiCare Micro Pen [place] 32G X 4 MM USE TWICE DAILY. Active Carvedilol 3.125 MG Orally 2 times a day 12h Active Cetirizine HCl 10 mg Orally Once a day 1 tablet as needed 24h 11 Nov, 2015 Active Atorvastatin Calcium 40 MG TAKE ONE (1) TABLET BY MOUTH DAILY... Active ProAir HFA 90 mcg/actuation Inhalation 4 times a day 2 puffs as needed 6h Active Victoza 18 mg/3ml Subcutaneous Once a day 1.8 mg 24h Active RESULTS No Results PROCEDURES Procedure Date Ordered Result Body Site [facility] VISIT ESTABLISHED PATIENT Apr 30, 2017 INSTRUCTIONS MEDICATIONS ADMINISTERED No Known Medications [...] History Left eye retinal eye repair ([facility]) 06/2014 Surgical History amputation, toe-right third toe ([facility]) 2013 Surgical History Right eye retinal eye repair ([facility]) 09/2014 Surgical History heart cath [...]
--- OUTSIDE RECORDS SUMMARY | 2018-06-20 10:16 | XMS REPORT ---
Author Author ARIELLE DE DIOS Organization [facility] Address [address] [place] [address] Care Team Providers Care Medicaid Billing Specialist Name Role Phone ARIELLE DE DIOS Unavailable PROBLEMS Type Condition ICD9-CM Code LHN64-DO Code Onset Dates Condition Status SNOMED Code Problem Chronic obstructive pulmonary disease, unspecified COPD type J44.9 Active 99566086 Problem Peripheral vascular disease I73.9 Active 538794124 Problem Type 2 diabetes mellitus with diabetic neuropathy E11.40 Active 61403429 Problem S/P coronary artery stent placement Z95.5 Active 523062733 Problem Osteomyelitis of right foot, unspecified chronicity M86.9 Active 84459288 Problem Type 2 diabetes mellitus with diabetic retinopathy, macular edema presence unspecified, with unspecified retinopathy severity E11.319 Active 94217182 Problem Bilateral low back pain without sciatica M54.5 Active 302122482 Problem 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 Active 289144640 Problem 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 Active 392140592 Problem Frequent falls R29.6 Active 866676749 Problem Hypercholesterolemia E78.0 Active 89532354 Problem Comprehensive diabetic foot examination, type 2 DM, encounter for E11.9 Active 07161318 Problem Type 2 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 Active 441738881 Problem Obesity (BMI 30.0-34.9) E66.9 Active 857840142417385 Problem Uses walker Z99.89 Active 205163373 Problem Aphasia R47.01 Active 50454133 Problem Functional diarrhea K59.1 Active 09726541 Problem Fecal urgency R15.2 Active 34381908 Problem Fatigue, unspecified type R53.83 Active 52026126 Problem High risk medication use Z79.899 Active 806187414 Problem Diabetes type 2, uncontrolled E11.65 Active 787394460 Problem Personal history of carotid stenosis Z86.79 Active 950430692 Problem Other chronic pain G89.29 Active 12394704 Problem Chronic diarrhea K52.9 Active 897172445 Problem Full incontinence of feces R15.9 Active 449375042647362 Problem Mixed stress and urge urinary incontinence N39.46 Active 841175151 Problem Hyperlipidemia, unspecified hyperlipidemia E78.5 Active 18013376 Problem Essential hypertension I10 Active 38848926 Problem Coronary artery disease involving bad [place] coronary artery of bad [place]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 Active 3232697026091 Problem CKD (chronic kidney disease), stage 3 (moderate) N18.3 Active 695045826 Problem Insulin long-term use Z79.4 Active 773065757 Problem Chronic pain syndrome G89.4 Active 582133458 Problem Depression F32.9 Active 32474350 Problem Pain in left shoulder M25.512 Active 04117559 Problem Type 2 diabetes mellitus with foot ulcer E11.621 Active 277621042 Problem Mixed hyperlipidemia E78.2 Active 913708447 Problem Type 2 diabetes mellitus with diabetic peripheral angiopathy without gangrene E11.51 Active 841103147 Problem Chronic kidney disease, unspecified N18.9 Active 915351837 Problem CKD (chronic kidney disease) stage 3, GFR 30-59 ml/min N18.3 Active 907476151 Problem GERD without esophagitis K21.9 Active 940826028 ALLERGIES No Known Allergies ENCOUNTERS Encounter Location Date Diagnosis [id number] [place] [address] [id number] December, [address] [id number] December, Medicare annual wellness visit, subsequent Z00.00 ; Type 2 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 ; Chronic obstructive pulmonary disease, unspecified COPD type J44.9 ; Depression F32.9 ; Peripheral vascular disease I73.9 ; Coronary artery disease involving bad [place] coronary artery of bad [place]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 ; Hypercholesterolemia E78.0 ; GERD without esophagitis K21.9 and Chronic kidney disease, unspecified N18.[address] [id number] [id number] December, Mixed stress and urge urinary incontinence N39.46 ; Full incontinence of feces R15.9 ; Fecal urgency R15.2 ; Functional diarrhea K59.1 and Type 2 diabetes mellitus with diabetic neuropathy E11.40 [address] [place] [address] [id number] Nov, Other chronic pain G89.29 [place] [id number] [place] [address] [id number] Oct, [place] [address] [place] [address] [id number] Oct, [address] [id number] Oct, Other chronic pain G89.29 [place] [id number] [place] [address] [id number] Sep, Other chronic pain G89.29 [place] [id number] [place] [address] [id number] Aug, CKD (chronic kidney disease), stage 3 (moderate) N18.3 ; Anemia, unspecified type D64.9 and Dilated pore of Ly L70.8 [place] [address] [place] [address] [id number] Aug, Other chronic pain G89.29 ; Pain in left shoulder M25.512 ; High risk medication use Z79.899 ; Uses walker Z99.89 ; Diabetes type 2, uncontrolled E11.65 and Depression F32.9 [place] [address] [place] [address] [id number] Aug, Chronic diarrhea K52.9 [address] [place] [address] [id number] Aug, Chronic diarrhea K52.9 ; Type 2 diabetes mellitus with diabetic neuropathy E11.40 ; Diabetes type 2, uncontrolled E11.65 ; Insulin long-term use Z79.4 ; Chronic obstructive pulmonary disease, unspecified COPD type J44.9 ; Chronic pain syndrome G89.4 ; Pain in left shoulder M25.512 ; Uses walker Z99.89 ; S/P coronary artery stent placement Z95.5 ; Mixed hyperlipidemia E78.2 and Essential hypertension I10 [place] [address] [place] [address] [id number] Aug, [address] [id number] Jul, Diabetes type 2, uncontrolled E11.65 [address] [id number] Jul, Diabetes type 2, uncontrolled E11.65 ; Type 2 diabetes mellitus with diabetic neuropathy E11.40 ; Insulin long-term use Z79.4 and Chronic obstructive pulmonary disease, unspecified COPD type J44.9 [address] [id number] Jun, [address] [place] [address] [id number] Jun, Essential hypertension I10 [address] [place] [address] [id number] Jun, Essential hypertension I10 [address] [place] [address] [id number] Jun, Type 2 diabetes mellitus with diabetic neuropathy E11.40 ; Type 2 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 ; S/P coronary artery stent placement Z95.5 ; Obesity (BMI 30.0-34.9) E66.9 ; Mixed hyperlipidemia E78.2 ; Frequent falls R29.6 ; Chronic obstructive pulmonary disease, unspecified COPD type J44.9 ; Essential hypertension I10 ; Insulin long-term use Z79.4 and High risk medication use Z79.899 [place] [id number] [id number] May, Diarrhea, unspecified type R19.7 ; Type 2 diabetes mellitus with diabetic neuropathy E11.40 ; Chronic obstructive pulmonary disease, unspecified COPD type J44.9 ; S/P coronary artery stent placement Z95.5 ; High risk medication use Z79.899 ; Essential hypertension I10 ; Encounter for administration of vaccine Z23 and Encounter for immunization Z23 [facility] [address] [id number] [id number] May, Chronic obstructive pulmonary disease, unspecified COPD type J44.[address] [id number] [id number] May, Type 2 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 ; Encounter for immunization Z23 ; Needs flu shot Z23 ; Comprehensive diabetic foot examination, type 2 DM, encounter for E11.9 and Obesity (BMI 30.0-34.9) E66.9 [place] [id number] [place] [address] [id number] May, [place] [address] [place] [address] [id number] Apr, [address] [id number] Apr, Essential hypertension I10 and Aphasia R47.01 [place] [address] [place] [address] [id number] Apr, [address] [id number] Apr, Type 2 diabetes mellitus with diabetic neuropathy E11.40 ; Frequent falls R29.6 ; Essential hypertension I10 ; S/P coronary artery stent placement Z95.5 ; High risk medication use Z79.899 ; Hyperlipidemia, unspecified hyperlipidemia E78.5 ; CKD (chronic kidney disease), stage 3 (moderate) N18.3 ; Pain in left shoulder M25.512 and Chronic obstructive pulmonary disease, unspecified COPD type J44.9 [place] [address] [place] [address] [id number] Mar, [place] [address] [place] [address] [id number] Mar, Type 2 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 ; Leg wound, left, initial encounter S81.802A ; Hx of shoulder surgery Z98.890 ; Acute pain of left shoulder M25.512 and Fall, initial encounter W19.XXXA [place] [address] [place] [address] [id number] Feb, Follow-up exam Z09 ; Hx of shoulder surgery Z98.890 ; Acute pain of left shoulder M25.512 ; Essential hypertension I10 and Leg wound, left, initial encounter S81.802A [place] [address] [place] [address] [id number] Feb, [address] [id number] Feb, [facility] [place] [id number] [id number] Feb, Chronic obstructive pulmonary disease, unspecified COPD type J44.9 [facility] [id number] [place] [address] [id number] Feb, [facility] [id number] [place] [address] [id number] Jan, Generalized weakness R53.1 ; Exertional shortness of breath R06.02 and Fungal rash of trunk B36.9 [facility] [id number] [place] [address] [id number] Jan, [facility] [place] [address] [id number] [place] [address] [id number] Jan, [facility] [id number] [place] [address] [id number] Jan, [facility] [place] [id number] [place] [address] [id number] Jan, [facility] [id number] [place] [address] [id number] December, High risk medication use Z79.899 [facility] [id number] [place] [address] [id number] December, Type 2 diabetes mellitus with diabetic neuropathy E11.40 [facility] [id number] [place] [address] [id number] December, High risk medication use Z79.899 [facility] [id number] [place] [address] [id number] Nov, Diabetes type 2, uncontrolled E11.65 [facility] [id number] [place] [address] [id number] Nov, Medicare annual wellness visit, initial Z00.00 ; Bilateral low back pain without sciatica M54.5 ; Pain in left shoulder M25.512 ; Chronic pain syndrome G89.4 ; Type 2 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 ; High risk medication use Z79.899 and Encounter for immunization Z23 [facility] [address] [address] [id number] [place] [address] [id number] Nov, Type 2 diabetes mellitus with diabetic neuropathy E11.40 ; Coronary artery disease involving bad river band coronary artery of bad [place]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 and CKD (chronic kidney disease), stage 3 (moderate) N18.3 [facility] [id number] [place] [address] [id number] Oct, Type 2 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 ; Chronic pain syndrome G89.4 ; Chronic obstructive pulmonary disease, unspecified COPD type J44.9 ; Chronic kidney disease, unspecified N18.9 and Rash R21 [address] [id number] [id number] Oct, Type 2 diabetes mellitus with diabetic neuropathy E11.40 [place] [id number] [place] [address] [id number] Oct, Rash R21 and Impetigo L01.00 [place] [id number] [place] [address] [id number] Oct, Chronic pain syndrome G89.4 [facility] [id number] [place] [address] [id number] Oct, [place] [id number] [place] [address] [id number] Sep, Sebaceous cyst L72.3 [place] [address] [place] [address] [id number] Sep, Sebaceous cyst L72.3 [place] [address] [place] [address] [id number] Sep, Chronic pain syndrome G89.4 ; Pain in left shoulder M25.512 and Effusion of olecranon bursa, left M25.422 [facility] [address] [place] [phone] Aug, [place] [id number] [place] [address] [id number] Aug, [place] [address] [place] [address] [id number] Aug, Mixed hyperlipidemia E78.2 and Chronic kidney disease, unspecified N18.9 [facility] [id number], [place] [id number] Jul, Type 2 diabetes mellitus with diabetic neuropathy E11.40 ; Essential hypertension I10 and S/P coronary artery stent placement Z95.5 [facility] [id number] [place] [address] [id number] Jul, 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 [facility] [id number] [place] [address] [id number] Jul, Diabetes type 2, uncontrolled E11.65 ; Essential hypertension I10 and 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 [facility] [address] [id number] [place] [id number] Jul, [facility] [id number] [place] [address], [place] [id number] Jul, [facility] [id number] [place] [address] [id number] Jul, [facility] [id number] [place] [address], [place] [id number] Jul, Chronic obstructive pulmonary disease, unspecified COPD type J44.9 [facility] [id number] [place] [address] [id number] Jun, CKD (chronic kidney disease), stage 3 (moderate) N18.3 and Anemia, unspecified type D64.9 [facility] [id number], [place] [id number] Jun, Type 2 diabetes mellitus with diabetic neuropathy E11.40 ; Decreased GFR R94.4 ; CKD (chronic kidney disease), stage 3 (moderate) N18.3 and Decreased hemoglobin R71.0 [facility] [id number], [place] [id number] Jun, CKD (chronic kidney disease), stage 3 (moderate) N18.3 and Anemia, unspecified type D64.9 [facility] [id number], [place] [id number] Jun, Type 2 diabetes mellitus with diabetic neuropathy E11.40 ; Decreased GFR R94.4 and CKD (chronic kidney disease), stage 3 (moderate) N18.3 [address] [id number] 14 Jun, 2016 Type 2 diabetes mellitus with diabetic neuropathy E11.40 and Essential hypertension I10 [place] [id number] [place] [address] [id number] Jun, [address] [place] [address] [id number] Jun, [place] [address] [place] [address] [id number] Jun, Type 2 diabetes mellitus with diabetic neuropathy E11.40 ; S/P coronary artery stent placement Z95.5 ; Chronic obstructive pulmonary disease, unspecified COPD type J44.9 ; Essential hypertension I10 ; GERD without esophagitis K21.9 ; Peripheral vascular disease I73.9 ; Mixed hyperlipidemia E78.2 and Hospital discharge follow-up Z09 [place] [id number] [place] [address] [id number] Jun, [place] [address] [place] [address] [id number] May, Depression F32.9 and Hyperlipidemia, unspecified hyperlipidemia E78.5 [facility] [address] [id number] [id number] May, [address] [place] [address] [id number] May, [place] [address] [place] [address] [id number] May, Essential hypertension I10 ; Chronic pain syndrome G89.4 ; Pain in left shoulder M25.512 ; High risk medication use Z79.899 ; Chronic obstructive pulmonary disease, unspecified COPD type J44.9 ; S/P coronary artery stent placement Z95.5 ; Personal history of carotid stenosis Z86.79 ; Hyperlipidemia, unspecified hyperlipidemia E78.5 ; Decreased GFR R94.4 and Type 2 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 [place] [address] [id number] May, Hemoglobin decreased R71.0 and Decreased GFR R94.4 [place] [address] [place] [address] [id number] May, Hemoglobin decreased R71.0 and Decreased GFR R94.4 [facility] [id number] [place] [address] [id number] May, [facility] [id number] [place] [address] [id number] May, [facility] [id number] [place] [address] [id number] Apr, [place] [id number] [place] [address] [id number] Apr, Type 2 diabetes mellitus with foot [...] unspecified hyperlipidemia E78.5 and Essential hypertension I10 [address] [place] [address] [id number] Apr, [place] [address] [place] [address] [id number] Mar, [place] [address] [place] [address] [id number] Mar, [facility] [address], [place] [address] Mar, [facility] [id number] [place] [address] [id number] Feb, [address] [place] [address] [id number] Feb, [place] [address] [place] [address] [id number] Feb, [place] [address] [place] [address] [id number] Jan, Type 2 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 ; Hypercholesterolemia E78.0 ; Chronic pain syndrome G89.4 ; Pain in left shoulder M25.512 and High risk medication use Z79.899 [facility] [id number] [place] [address] [id number] Jan, [facility] [id number] [place] [address] [id number] Jan, [facility] [id number] [place] [address] [id number] December, [facility] [id number] [place] [address] [id number] December, [place] [address] [place] [id number] [place] [address]- [address] December, Diabetes type 2, uncontrolled E11.65 ; Type 2 diabetes mellitus with diabetic neuropathy E11.40 ; Peripheral vascular disease I73.9 ; 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 and 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 [facility] [id number] [place] [address] [id number] Nov, [facility] [id number] [place] [address] [id number] Nov, [facility] [id number] [place] [address] [id number] Nov, [facility] [id number] [place] [address] [id number] Nov, Right hip pain M25.551 [place] [address] [place] [id number] [place] [address]- 2546 Nov, [place] [address] [place] [id number] [place] [address] 332[address]- 2546 Nov, [facility] [id number] [place] [address] [id number] Nov, Diabetes with neurological manifestations, type II or unspecified type, 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.60 [facility] [id number] [place] [address] [id number] Nov, [facility] [id number] [place] [address] [id number] Nov, [facility] [address] [id number] Oct, Diabetes type 2, uncontrolled E11.65 ; Type 2 diabetes mellitus with diabetic neuropathy, unspecified E11.40 and Low back pain M54.5 [facility] [address] [id number] [place] [id number] Oct, [facility] [place] [address] [id number] [place] [id number] Oct, [facility] [address] [id number] [place] [id number] Oct, [facility] [address] [id number] [place] [id number] Sep, [facility] [address] [id number] [place] [id number] Sep, [facility] [address], [place] [address]- [address] Sep, [facility] [place] [address] [id number] [id number] Sep, [facility] [place] [address] [id number], [place] [id number] Sep, [facility] [place] [address] [id number], [place] [id number] Aug, 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 [facility] [address] [id number], [place] [id number] Aug, [facility] [address] [id number], [place] [id number] Aug, Allergic rhinitis due to pollen J30.1 [facility] [place] [address] [facility] [id number][place] [id number] Jul, [facility] [address] [id number], [place] [id number] Jul, [facility] [address] [id number], [place] [id number] Jul, [facility] [address] [id number], [place] [id number] Jun, [facility] [address] [id number], [place] [id number] Jun, Thumb tendonitis M77.8 and Ringing in ear, bilateral H93.13 [facility] [address] [id number], [place] [id number] Jun, [facility] [address]005[address], [place] [id number] May, [place] [address], [place] [address]- 9[address] May, [place] [address] [place] [address] 999914- 2556 May, Pre-op evaluation Z01.818 ; Encounter for immunization Z23 ; Type 2 diabetes mellitus with diabetic peripheral angiopathy without gangrene E11.51 ; Insulin long-term use Z79.4 ; Type 2 diabetes mellitus with foot ulcer E11.621 ; Peripheral vascular disease I73.9 ; Coronary artery disease involving bad [place] coronary artery of bad [place]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 ; S/P coronary artery stent placement Z95.5 ; Osteomyelitis of right foot, unspecified chronicity M86.9 and Chronic obstructive pulmonary disease, unspecified COPD type J44.9 [place] [address], [place] [address] May, [address], [place] [id number] May, [address], [place] [id number] May, Diabetes type 2, uncontrolled E11.65 ; Encounter for immunization Z23 ; Osteopenia M85.80 and Allergic rhinitis due to pollen J30.1 [facility] [address] [facility] [id number][place] [id number] May, Lumbago 724.2 [facility] [id number], [place] [id number] Apr, [facility] [address] [id number][place] [id number] Apr, [facility] [address] [id number], [place] [id number] Apr, [facility] [place] [id number], [place] [id number] Apr, [facility] [address], [place] [address]- [address] Mar, [facility] [id number], [place] [id number] Mar, [facility] [place] [address] [id number], [place] [id number] Mar, [facility] [place] [address] [id number] [place] [id number] Mar, [facility] [id number] [place] [id number] Mar, [facility] [id number], [place] [address] 2546 Mar, [facility] [id number], [place] [id number] Mar, [facility] [id number], [place] [id number] Mar, Diabetes with neurological manifestations, type II or unspecified type, 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.60 and Severe obesity (BMI 35.0-35.9 with comorbidity) 278.01 [facility] [id number], [place] [id number] Mar, [facility] [id number], [place] [address] 2546 Mar, [facility] [id number], [place] [address] 25[address] Feb, [facility] [id number], [place] [id number] Feb, [facility] [id number], [place] [id number] Feb, [facility] [id number], [place] [id number] Feb, Diabetes with neurological manifestations, type II or unspecified type, 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.60 [facility] [address] [id number][place] [id number] Feb, [facility] [id number] [place] [address] Feb, [facility] [id number], [place] [id number] Feb, [facility] [id number], [place] [id number] Feb, Follow up V67.9 ; Diabetes with neurological manifestations, type II or unspecified type, 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.60 and Congestive heart failure 428.0 [facility] [id number] [place] [address] [id number] Jan, [facility] [id number] [place] [address] [id number] Jan, [facility] [id number] [place] [address] [id number] Jan, [facility] [id number] [place] [address] [id number] December, Otitis media with effusion 381.4 ; Left arm numbness 782.0 and Osteoporosis 733.00 [facility] [id number], [place] [id number] December, [facility] [id number], [place] [id number] Nov, [facility] [id number], [place] [id number] Nov, Serous otitis media 381.4 and Lumbago 724.2 [facility] [address]00565100[place], [place] [address]- 480[address] Nov, [facility] [id number] [place] [address]- 8019 Nov, [facility] [id number], [place] [id number] Oct, [facility] [address]00565100[place], [place] [address]- 89[address] Oct, [facility] [address] [id number], [place] [id number] Oct, [facility] [place] [facility] [address] [id number], [place] [address] 7[address] Oct, [facility] [address] [facility] [id number][place] [id number] Oct, [facility] [place] [facility] [address] [facility] [id number], [place] [address]- 7796 Oct, [facility] [place] [facility] [address] [facility] [id number], [place] [address]- 1323 Sep, [facility] [place] [facility] [address] [facility] [id number], [place] [address]- 5006 Sep, [facility] [address] [facility] [id number], [place] [id number] Sep, [facility] [place] [facility] [address]00565100[place], [place] [address]- 1817 Sep, [facility] [address] [facility] [id number], [place] [id number] Aug, [facility] [place] [facility] [address] [id number], [place] [address]- 0056 Aug, [facility] [address] [facility] [id number], [place] [id number] Aug, [facility] [place] [facility] [address] [id number], [place] [address]- 7954 Aug, [facility] [address] [facility] [id number], [place] [id number] Jul, [facility] [place] [facility] [address] [facility] [id number], [place] [address]- 8632 Jul, [facility] [address] [facility] [id number], [place] [id number] Jul, [facility] [place] [facility] [address] [facility] [id number], [place] [address]- 8856 Jul, [facility] [address] [id number], [place] [id number] Jul, [facility] [place] [facility] [address] [facility] [id number], [place] [address]- 2546 Jul, [facility] [address] [facility] [id number], [place] [id number] Jun, [facility] [place] [facility] [address] [facility] [id number], [place] [address]- 2546 Jun, [facility] [address] [facility] [id number], [place] [id number] May, [facility] [place] [facility] [address] [facility] [id number], [place] [address] 2546 May, [facility] [address] [facility] [id number] [place] [address] [id number] May, [facility] [place] [facility] [address] [id number], [place] [address] 2546 May, [facility] [address] [id number], [place] [id number] May, [facility] [place] [facility] [address]00565100[place], [place] [address]- 6[address] May, [facility] [address] [facility] [id number], [place] [id number] May, [facility] [address] [facility] [id number], [place] [id number] May, [facility] [place] [facility] [address]00565100[place], [place] [address]- 0706 May, [facility] [place] [facility] [id number], [place] [address] 2546 May, [facility] [address] [facility] [id number], [place] [id number] May, [facility] [place] [facility] [address] [facility] [id number], [place] [address] 2546 May, [facility] [place] [facility] [address] [facility] [id number], [place] [address]- 8896 Apr, [facility] [address] [facility] [id number], [place] [id number] Apr, [facility] [place] [facility] [address] [id number] [place] [address]- 0095 Apr, 2013 [facility] [address] [id number] [place] [id number] Apr, 2013 [facility] [address] [id number] [place] [id number] Apr, 2013 [facility] [place] [facility] [address] [facility] [id number] [place] [address]- 7023 Apr, 2013 [facility] [place] [facility] [address] [facility] [id number] [place] [address]- 0255 Apr, 2013 [facility] [address] [id number] [place] [id number] Apr, [facility] [place] [facility] [address] [facility] [id number], [place] [address]- 8878 Apr, 2013 [facility] [address] [facility] [id number] [place] [id number] Apr, [facility] [place] [facility] [address] [facility] [id number], [place] [address]- 6438 Apr, 2013 [facility] [address] [id number] [place] [id number] Apr, [facility] [place] [facility] [address] [facility] [id number], [place] [address]- 7045 Apr, [facility] [address] [id number] [place] [id number] Apr, [facility] [place] [facility] [address] [facility] [id number], [place] [address]- 0197 Apr, 2013 [facility] [address] [id number] [place] [id number] Apr, [facility] [place] [facility] [address] [facility] [id number], [place] [address]- 2360 Apr, 2013 [facility] [address] [id number], [place] [id number] Apr, 2013 [facility] [place] [facility] [address] [facility] [id number], [place] [address]- 8149 Apr, [facility] [address] [id number] [place] [id number] Mar, [facility] [place] [facility] [address] [facility] [id number] [place] [address]- 4401 Mar, [facility] [address] [id number] [place] [id number] Mar, [facility] [address] [id number] [place] [id number] Mar, [facility] [place] [facility] [address] [facility] [id number] [place] [address]- 1131 Mar, [facility] [place] [facility] [address] [facility] [id number] [place] [address]- 9260 Mar, [facility] [address] [facility] [id number] [place] [id number] Mar, [facility] [place] [facility] [address]00565100[place], [place] [address]- 0850 Mar, [facility] [address] [facility] [id number], [place] [id number] Mar, [facility] [place] [facility] [address] [facility] [id number], [place] [address]- 9409 Mar, [facility] [address] [facility] [id number], [place] [id number] Mar, [facility] [place] [facility] [address] [facility] [id number], [place] [address]- 0105 Mar, [facility] [address] [id number], [place] [id number] Mar, [facility] [place] [facility] [address] [facility] [id number], [place] [address]- 6260 Mar, [facility] [address] [id number], [place] [id number] Mar, [facility] [place] [facility] [address] [facility] [id number], [place] [address]- 0888 Mar, [facility] [address] [id number], [place] [id number] Mar, [facility] [place] [facility] [address] [id number] [place] [address]- 7939 Mar, [facility] [address] [id number] [place] [id number] Mar, [facility] [place] [facility] [address] [facility] [id number] [place] [address]- 0489 Mar, [facility] [address] [id number] [place] [id number] Feb, [facility] [place] [facility] [address] [id number] [place] [address]- 5109 Feb, [facility] [address] [id number] [place] [id number] Feb, [facility] [place] [facility] [address] [facility] [id number] [place] [address]- 1970 Feb, [facility] [address] [id number] [place] [id number] Feb, [facility] [place] [facility] [address] [facility] [id number] [place] [address]- 0378 Feb, [facility] [address] [id number] [place] [id number] Feb, [facility] [place] [facility] [address] [facility] [id number] [place] [address]- 4609 Feb, [facility] [address] [id number] [place] [id number] Feb, [facility] [place] [facility] [address] [facility] [id number] [place] [address]- 6708 Feb, [facility] [address] [id number] [place] [id number] Feb, [facility] [place] [facility] [address] [facility] [id number] [place] [address]- 6214 Feb, [facility] [address] [id number] [place] [id number] Feb, [facility] [place] [facility] [address] [facility] [id number] [place] [address]- 9902 Feb, [facility] [address] [id number] [place] [id number] Feb, [facility] [place] [facility] [address] [id number] [place] [address]- 0356 Feb, [facility] [address] [id number] [place] [id number] Feb, [facility] [place] [facility] [address] [id number] [place] [address]- 5596 Feb, [facility] [address] [id number] [place] [id number] Feb, [facility] [address] [id number] [place] [id number] Feb, [facility] [place] [facility] [address] [facility] [id number] [place] [address]- 4701 Feb, [facility] [place] [facility] [address] [facility] [id number] [place] [address]- 1950 Feb, [facility] [address] [id number] [place] [id number] Feb, [facility] [place] [facility] [address] [facility] [id number] [place] [address]- 3832 Feb, [facility] [address] [id number] [place] [id number] Feb, [facility] [place] [facility] [address] [facility] [id number], [place] [address]- 7448 Feb, [facility] [address] [id number] [place] [id number] Feb, [facility] [place] [facility] [address] [id number] [place] [address]- 8122 Feb, [facility] [address] [id number] [place] [id number] Jan, [facility] [place] [facility] [address] [facility] [id number] [place] [address]- 5194 Jan, [facility] [place] [facility] [address] [facility] [id number], [place] [address]- 3800 Jan, [facility] [place] [facility] [address] [facility] [id number], [place] [address]- 4533 Jan, [facility] [place] [facility] [address] [facility] [id number], [place] [address]- 3073 Jan, [facility] [place] [facility] [address] [facility] [id number], [place] [address]- 2531 Jan, [facility] [address] [id number], [place] [id number] Jan, [facility] [place] [facility] [address] [facility] [id number] [place] [address]- 7030 Jan, [facility] [place] [facility] [address] [facility] [id number], [place] [address]- 4435 Jan, [facility] [place] [facility] [address] [facility] [id number], [place] [address]- 2972 Jan, [facility] [address] [id number], [place] [id number] Jan, [facility] [address] [id number], [place] 088962034 Jan, [facility] [place] [facility] [address] [facility] [id number], [place] [address]- 2388 Jan, [facility] [place] [facility] [address] [facility] [id number], [place] [address]- 5754 Jan, [facility] [address] [id number], [place] 532949149 Jan, [facility] [address] [id number], [place] 455529527 Jan, [facility] [place] [facility] [address] [facility] [id number], [place] [address]- 9649 Jan, [facility] [place] [facility] [address] [facility] [id number], [place] [address]- 4047 Jan, [facility] [place] [facility] [address] [facility] [id number], [place] [address]- 7720 Jan, [facility] [address] [facility] [id number], [place] [id number] December, [facility] [place] [facility] [address] [facility] [id number] [place] [address]- 9156 December, [facility] [place] [facility] [address] [facility] [id number] [place] [address]- 2546 December, [facility] [address] [facility] [id number], [place] [id number] December, [facility] [place] [facility] [address] [facility] [id number] [place] [address]- 2546 December, [facility] [address] [facility] [id number] [place] [id number] December, [facility] [place] [facility] [address] [facility] [id number], [place] [address]- 6346 December, [facility] [address] [facility] [id number], [place] [id number] December, [facility] [place] [facility] [address]00565100[place], [place] [address]- 0316 December, [facility] [address] [facility] [id number], [place] [id number] Nov, [facility] [place] [facility] [address]00565100[place], [place] [address]- 7796 Nov, [facility] [address] [facility] [id number], [place] 977818336 Nov, [facility] [place] [facility] [address] [facility] [id number], [place] [address]- 9726 Nov, [facility] [place] [facility] [address] [facility] [id number] [place] [address]- 8956 Nov, [facility] [place] [facility] [address] [facility] [id number], [place] [address]- 4256 Nov, [facility] [place] [facility] [address] [facility] [id number], [place] [address]- 8656 Oct, [facility] [address] [facility] [id number], [place] [id number] Oct, [facility] [place] [facility] [address] [id number] [place] [address]- 8543 Oct, [facility] [address] [facility] [id number] [place] [id number] Oct, [facility] [address] [facility] [id number], [place] [address]- 3816 Oct, [facility] [address] [facility] [id number] [place] [id number] Sep, [facility] [place] [facility] [address] [facility] [id number] [place] [address]- 0182 Sep, [facility] [address] [facility] [id number] [place] [id number] Aug, [facility] [place] [facility] [address] [facility] [id number], [place] [address]- 7042 Aug, [facility] [address] [facility] [id number], [place] [id number] Aug, [facility] [place] [facility] [address] [facility] [id number], [place] [address]- 6057 Aug, [facility] [place] [facility] [address] [facility] [id number], [place] [address]- 6891 Aug, [facility] [address] [facility] [id number], [place] [id number] Aug, [facility] [place] [facility] [address] [facility] [id number], [place] [address]- 9350 Aug, [facility] [place] [facility] [address] [facility] [id number], [place] [address]- 5576 Aug, [facility] [address] [facility] [id number], [place] [id number] Aug, [facility] [place] [facility] [address] [facility] [id number], [place] [address]- 9526 Aug, [facility] [address] [facility] [id number] [place] [id number] Jul, [facility] [place] [facility] [address] [facility] [id number], [place] [address]- 5335 Jul, [facility] [address] [id number] [place] [id number] Jul, [facility] [address] [facility] [id number], [place] [address]- 9837 Jul, [facility] [address] [id number] [place] [id number] Jul, [facility] [address] [facility] [id number], [place] [address]- 7369 Jul, [facility] [address] [id number] [place] [id number] Jul, [facility] [address] [facility] [id number], [place] [address]- 9174 Jul, [facility] [address] [id number] [id number] Jun, [facility] [address]00565[place] [address] Jun, [facility] [address] [facility] [id number][place] [id number] Jun, [facility] [address] [address] Jun, [facility] [id number], [place] [address] Jun, [facility] [address]65[address], [place] [address] Jun, [facility] [address] [id number] [place] [id number] Apr, [facility] [address] [id number] [place] [id number] Mar, [facility] [address] [id number] [place] [id number] Mar, [facility] [address] [id number] [place] [id number] Feb, [facility] [address] [id number] [place] [id number] Feb, [facility] [place] [address] [id number] [place] [id number] Feb, [facility] [place] [address] [id number] [place] [id number] December, [facility] [address] [id number] [place] [id number] December, [facility] [address]65100[place], [place] [address] December, [facility] [address] [id number] [place] [id number] December, [facility] [place] [address] [id number] [place] [id number] December, [facility] [address] [id number] [place] [id number] Nov, [facility] [address] [id number] [place] [id number] Nov, [facility] [address] [id number] [place] [id number] Nov, [facility] [address] [id number] [place] [id number] Oct, [facility] [address] [id number] [place] [id number] Sep, [facility] [address] [id number] [place] [id number] Aug, [facility] [address]00565100[place], [place] [address] Aug, [facility] [address] [id number] [place] [id number] Aug, [facility] [address] [id number] [place] [id number] Jul, [facility] [address] [facility] [id number], [place] [address] Jul, [facility] [address] [id number] [place] [id number] Jul, [facility] [address]65[address], [place] [address] Jul, [facility] [address] [id number], [place] [id number] Jun, [facility] [address] [facility] [id number][place] [address] Jun, [facility] [address] [id number][place] [id number] May, [facility] [address] [facility] [id number][place] [address] May, [facility] [address] [id number] [place] [id number] May, [facility] [address] [facility] [id number], [place] [address] May, [facility] [address] [id number][place] [id number] Apr, [facility] [address] [id number][place] [id number] Apr, [facility] [address] [id number], [place] [id number] Mar, [facility] [address] [id number] [place] [id number] Mar, [facility] [address] [id number], [place] [id number] Feb, [facility] [address] [id number], [place] [id number] Feb, [facility] [address] [id number] [place] [id number] Jan, [facility] [address] [id number] [place] [id number] Jan, [facility] [address] [id number] [place] [id number] Jan, [facility] [address] [id number] [place] [id number] Jan, [facility] [address] [id number], [place] [id number] December, [facility] [address] [id number] [place] [id number] December, [facility] [address] [id number] [place] [address] Nov, [facility] [address] [id number] [place] [id number] Nov, [facility] [address] [id number] [place] [id number] Nov, [facility] [address] [id number] [place] [address] Nov, [facility] [address] [id number] [place] [id number] Nov, [facility] [address] [facility] [id number] [place] [address] Oct, [facility] [address] [facility] [id number], [place] [address] Oct, [facility] [address] [id number] [place] [id number] Oct, [facility] [address] [id number] [place] [id number] Oct, [facility] [address] [id number] [place] [id number] Oct, [facility] [address] [id number] [place] [id number] Oct, [facility] [address] [id number] [place] [id number] Oct, [facility] [address] [id number] [place] [id number] Oct, [facility] [address] [id number] [place] [id number] Oct, [facility] [address] [facility] [id number] [address] Oct, [facility] [address] [id number] [place] [id number] Sep, [facility] [address] [id number] [place] [id number] Sep, [facility] [address] [id number] [place] [id number] Aug, [facility] [address] [id number] [place] [id number] Aug, [facility] [address] [id number] [place] [address] Jul, [facility] [address] [id number] [place] [address] Jul, [facility] [place] [facility] [address] [id number] [place] [address] Jul, [facility] [address] [id number] [place] [address] Jul, [facility] [address] [facility] [id number] [place] [address] Jul, [facility] [place] [facility] [address] [facility] [id number] [place] [address] Jul, [facility] [address] [id number] [place] [address] Jul, [facility] [address] [id number] [place] [address] Jul, [facility] [address] [facility] [id number] [place] [address] Jul, [facility] [place] [facility] [address] [id number] [place] [address] Jul, [facility] [place] [facility] [address] [id number] [place] [address] Jul, [facility] [place] [facility] [address] [id number] [place] [address] 16 Jul[facility] 2011 [facility] [place] [facility] [address] [facility] [id number] [place] [address] Jul, [facility] [place] [facility] [address] [facility] [id number] [place] [address] Jul, IMMUNIZATIONS Vaccine Route Administration Date Status FLUARIX QUAD (3 AND UP) 2016 IM Intramuscular Jun 03, 2017 Administered SOCIAL HISTORY Never Assessed REASON FOR VISIT Diabetic janeth Bonilla MA PLAN OF CARE Activity Details Follow Up keep appts as previously instructed Reason: VITAL SIGNS Height 69 in 2017-06-03 Weight 218.6 lbs 2017-06-03 Temperature 97.9 degrees Fahrenheit 2017-06-03 Heart Rate 78 bpm 2017-06-03 Respiratory Rate 16 2017-06-03 BMI 32.28 kg/m2 2017-06-03 Blood pressure systolic 110 mmHg 2017-06-03 Blood pressure diastolic 68 mmHg 2017-06-03 MEDICATIONS Medication Instructions Dosage Frequency Start Date End Date Duration Status Victoza 18 mg/3ml Subcutaneous Once a day 1.8 mg 24h Active Calcium + D3 600-200 MG-UNIT Orally 2 times a day 1 tablet 12h Active Levemir Flexpen 100 UNIT/ML Subcutaneous 2 times a day 35 units 12h Active ProAir HFA 90 mcg/actuation Inhalation 4 times a day 2 puffs as needed 6h Active Aspirin Adult Low Strength 81 MG Orally Once a day 1 tablet 24h Active Megestrol Acetate 40 mg Orally Once a day at HS 1 tablet Active Tramadol HCl 50 MG Orally every 6 hrs 1 tablet as needed 6h Active Cetirizine HCl 10 mg Orally Once a day 1 tablet as needed 24h Nov, Active Escitalopram Oxalate 10 MG TAKE ONE (1) TABLET BY MOUTH DAILY... Active Folic Acid 1 MG Orally Once a day 1 tablet 24h Jul, Active Carvedilol 3.125 MG Orally 2 times a day 12h Active Symbicort 160-4.5 mcg/act Inhalation Twice a day (morning and evening) inhale 2 puffs Active Prilosec 20 MG TAKE ONE (1) CAPSULE BY MOUTH ONCE DAILY... Active Baclofen 10 mg Orally 2 times a day 1 tablet with food or milk 12h Active Atorvastatin Calcium 40 MG TAKE ONE (1) TABLET BY MOUTH DAILY... Active RESULTS No Results PROCEDURES Procedure Date Ordered Result Body Site FLUARIX QUAD (3 & UP)--2014Jun 03, 2017 SINGLE IMMUNIZATION ADMIN Jun 03, 2017 [facility] VISIT ESTABLISHED PATIENT Jun 03, 2017 INSTRUCTIONS MEDICATIONS ADMINISTERED No Known Medications [...] in the future. Medical History 05/26/17 noted, [place] [facility] and they feel he is [...] Surgical History Left eye retinal eye repair ([facility]) 06/2014 Surgical History amputation, toe-right third toe ([facility]) 2013 [facility] 09/2014 Surgical History heart cath [...]
--- OUTSIDE RECORDS SUMMARY | 2018-06-20 10:18 | XMS REPORT ---
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 Wine Blender Name Role Phone SATINDER GOOD Unavailable PROBLEMS Type Condition ICD9-CM Code [id number] Code Onset Dates Condition Status SNOMED Code Problem Peripheral vascular disease I73.9 Active 835058213 Problem Coronary artery disease involving [place] coronary artery of [place]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 Active 1071881545214 Problem S/P coronary artery stent placement Z95.5 Active 718580530 Problem Chronic obstructive pulmonary disease, unspecified COPD type J44.9 Active 67131248 Problem Type 2 diabetes mellitus with diabetic neuropathy E11.40 Active 72115211 Problem Bilateral low back pain without sciatica M54.5 Active 314011995 Problem 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 Active 203959825 Problem 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 Active 813405684 Problem Hypercholesterolemia E78.0 Active 15588326 Problem Comprehensive diabetic foot examination, type 2 DM, encounter for E11.9 Active 10168192 Problem Type 2 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 Active 439471435 Problem Obesity (BMI 30.0-34.9) E66.9 Active [id number] Problem Personal history of carotid stenosis Z86.79 Active 339935954 Problem Aphasia R47.01 Active 26214866 Problem Chronic diarrhea K52.9 Active 611225634 Problem Uses walker Z99.89 Active 710763079 Problem Chronic fatigue R53.82 Active 03890037 Problem Mixed stress and urge urinary incontinence N39.46 Active 280425253 Problem Chronic pain syndrome G89.4 Active 662976718 Problem High risk medication use Z79.899 Active 386579906 Problem Osteomyelitis of right foot, unspecified chronicity M86.9 Active 50853170 Problem Fatigue, unspecified type R53.83 Active 38996114 Problem Diabetes type 2, uncontrolled E11.65 Active 215308647 Problem Full incontinence of feces R15.9 Active 357523620608689 Problem Other chronic pain G89.29 Active 47697187 Problem Functional diarrhea K59.1 Active 84139272 Problem Fecal urgency R15.2 Active 91063565 Problem Depression F32.9 Active 94996606 Problem CKD (chronic kidney disease), stage 3 (moderate) N18.3 Active 411213413 Problem Hyperlipidemia, unspecified hyperlipidemia E78.5 Active 40365269 Problem CKD (chronic kidney disease) stage 3, GFR 30-59 ml/min N18.3 Active 316835235 Problem Type 2 diabetes mellitus with diabetic peripheral angiopathy without gangrene E11.51 Active 975412729 Problem Pain in left shoulder M25.512 Active 18746612 Problem Insulin long-term use Z79.4 Active 400087350 Problem Essential hypertension I10 Active 93420363 Problem Type 2 diabetes mellitus with diabetic retinopathy, macular edema presence unspecified, with unspecified retinopathy severity E11.319 Active 09114313 Problem Chronic kidney disease, unspecified N18.9 Active 862168242 Problem Type 2 diabetes mellitus with foot ulcer E11.621 Active 103659891 Problem Frequent falls R29.6 Active 079040186 Problem GERD without esophagitis K21.9 Active 003316032 Problem Mixed hyperlipidemia E78.2 Active 344150036 ALLERGIES No Information ENCOUNTERS Encounter Location Date Diagnosis [address] [id number] Jan, [place] [id number] [place] [address] [id number] Jan, [address] [id number] [place] [address] [id number] Jan, [place] [address] [place] [id number] [place] [address] [id number] Jan, Other chronic pain G89.[address] [id number] December, Mixed stress and urge urinary incontinence N39.46 [address] [id number] [place] [address] [id number] December, Chronic fatigue R53.[address] [id number] December, Other chronic pain G89.29 [place] [id number] [place] [address] [id number] December, Diabetes type 2, uncontrolled E11.65 ; [...] chronic pain G89.29 [facility] [id number] [address] December, [address] [place] [address] [id number] December, Medicare annual wellness visit, subsequent Z00.00 ; Type 2 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 ; Chronic obstructive pulmonary disease, unspecified COPD type J44.9 ; Depression F32.9 ; Peripheral vascular disease I73.9 ; Coronary artery disease involving [place] coronary artery of ch[place]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 ; Hypercholesterolemia E78.0 ; GERD without esophagitis K21.9 and Chronic kidney disease, unspecified N18.9 [place] [id number] [id number] December, Mixed stress and urge urinary incontinence N39.46 ; Full incontinence of feces R15.9 ; Fecal urgency R15.2 ; Functional diarrhea K59.1 and Type 2 diabetes mellitus with diabetic neuropathy E11.[address] [place] [address] [id number] Nov, Other chronic pain G89.29 [address] [place] [address] [id number] Oct, [address] [place] [address] [id number] Oct, [place] [id number] [id number] Oct, Other chronic pain G89.29 [address] [id number] [place] [address] [id number] Sep, Other chronic pain G89.29 [address] [id number] Aug, CKD (chronic kidney disease), stage 3 (moderate) N18.3 ; Anemia, unspecified type D64.9 and Dilated pore of Ly L70.8 [address] [id number] Aug, Other chronic pain G89.29 ; Pain in left shoulder M25.512 ; High risk medication use Z79.899 ; Uses walker Z99.89 ; Diabetes type 2, uncontrolled E11.65 and Depression F32.9 [place] [id number] [place] [address] [id number] Aug, Chronic diarrhea K52.9 [address] [id number] Aug, Chronic diarrhea K52.9 ; Type 2 diabetes mellitus with diabetic neuropathy E11.40 ; Diabetes type 2, uncontrolled E11.65 ; Insulin long-term use Z79.4 ; Chronic obstructive pulmonary disease, unspecified COPD type J44.9 ; Chronic pain syndrome G89.4 ; Pain in left shoulder M25.512 ; Uses walker Z99.89 ; S/P coronary artery stent placement Z95.5 ; Mixed hyperlipidemia E78.2 and Essential hypertension I10 [address] [id number] Aug, [address] [id number] Jul, Diabetes type 2, uncontrolled E11.65 [address] [place] [address] [id number] Jul, Diabetes type 2, uncontrolled E11.65 ; Type 2 diabetes mellitus with diabetic neuropathy E11.40 ; Insulin long-term use Z79.4 and Chronic obstructive pulmonary disease, unspecified COPD type J44.9 [address] [id number] Jun, [address] [place] [address] [id number] Jun, Essential hypertension I10 [address] [place] [address] [id number] Jun, Essential hypertension I10 [address] [place] [address] [id number] Jun, Type 2 diabetes mellitus with diabetic neuropathy E11.40 ; Type 2 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 ; S/P coronary artery stent placement Z95.5 ; Obesity (BMI 30.0-34.9) E66.9 ; Mixed hyperlipidemia E78.2 ; Frequent falls R29.6 ; Chronic obstructive pulmonary disease, unspecified COPD type J44.9 ; Essential hypertension I10 ; Insulin long-term use Z79.4 and High risk medication use Z79.899 [address] [place] [address] [id number] May, Diarrhea, unspecified type R19.7 ; Type 2 diabetes mellitus with diabetic neuropathy E11.40 ; Chronic obstructive pulmonary disease, unspecified COPD type J44.9 ; S/P coronary artery stent placement Z95.5 ; High risk medication use Z79.899 ; Essential hypertension I10 ; Encounter for administration of vaccine Z23 and Encounter for immunization Z23 [address] [id number] [id number] May, Chronic obstructive pulmonary disease, unspecified COPD type J44.[id number] [place] [address] [id number] May, Type 2 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 ; Encounter for immunization Z23 ; Needs flu shot Z23 ; Comprehensive diabetic foot examination, type 2 DM, encounter for E11.9 and Obesity (BMI 30.0-34.9) E66.9 [place] [id number] [id number] May, [address] [place] [address] [id number] Apr, [facility] [id number] [place] [address] [id number] Apr, Essential hypertension I10 and Aphasia R47.[address] [id number] Apr, [place] [id number] [place] [address] [id number] Apr, Type 2 diabetes mellitus with diabetic neuropathy E11.40 ; Frequent falls R29.6 ; Essential hypertension I10 ; S/P coronary artery stent placement Z95.5 ; High risk medication use Z79.899 ; Hyperlipidemia, unspecified hyperlipidemia E78.5 ; CKD (chronic kidney disease), stage 3 (moderate) N18.3 ; Pain in left shoulder M25.512 and Chronic obstructive pulmonary disease, unspecified COPD type J44.9 [address] [id number] [place] [address] [id number] Mar, [place] [id number] [place] [address] [id number] Mar, Type 2 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 ; Leg wound, left, initial encounter S81.802A ; Hx of shoulder surgery Z98.890 ; Acute pain of left shoulder M25.512 and Fall, initial encounter W19.XXXA [place] [id number] [place] [address] [id number] Feb, Follow-up exam Z09 ; Hx of shoulder surgery Z98.890 ; Acute pain of left shoulder M25.512 ; Essential hypertension I10 and Leg wound, left, initial encounter S81.802A [facility] [id number] [place] [address] [id number] Feb, [place] [id number] [place] [address] [id number] Feb, [address] [id number] [place] [address] [id number] Feb, Chronic obstructive pulmonary disease, unspecified COPD type J44.9 [address] [id number] [place] [address] [id number] Feb, [address] [id number] Jan, Generalized weakness R53.1 ; Exertional shortness of breath R06.02 and Fungal rash of trunk B36.9 [facility] [id number] [place] [address] [id number] Jan, [facility] [id number] [place] [address] [id number] Jan, [facility] [id number] [place] [address] [id number] Jan, [facility] [id number] [place] [address] [id number] Jan, [facility] [id number] [place] [address] [id number] December, High risk medication use Z79.899 [facility] [id number] [place] [address] [id number] December, Type 2 diabetes mellitus with diabetic neuropathy E11.40 [facility] [id number] [place] [address] [id number] December, High risk medication use Z79.899 [facility] [id number] [place] [address] [id number] Nov, Diabetes type 2, uncontrolled E11.65 [place] [id number] [place] [address] [id number] Nov, Medicare annual wellness visit, initial Z00.00 ; Bilateral low back pain without sciatica M54.5 ; Pain in left shoulder M25.512 ; Chronic pain syndrome G89.4 ; Type 2 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 ; High risk medication use Z79.899 and Encounter for immunization Z23 [facility] [id number] [place] [address] [id number] Nov, Type 2 diabetes mellitus with diabetic neuropathy E11.40 ; Coronary artery disease involving ch[place] coronary artery of chul[place]ick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 and CKD (chronic kidney disease), stage 3 (moderate) N18.3 [facility] [id number] [place] [address] [id number] Oct, Type 2 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 ; Chronic pain syndrome G89.4 ; Chronic obstructive pulmonary disease, unspecified COPD type J44.9 ; Chronic kidney disease, unspecified N18.9 and Rash R21 [address] [id number] Oct, Type 2 diabetes mellitus with diabetic neuropathy E11.40 [facility] [address] [place] [address] [id number] Oct, Rash R21 and Impetigo L01.00 [place] [id number] [place] [address] [id number] Oct, Chronic pain syndrome G89.4 [place] [id number] [place] [address] [id number] Oct, [place] [id number] [place] [address] [id number] Sep, Sebaceous cyst L72.3 [place] [id number] [place] [address] [id number] Sep, Sebaceous cyst L72.3 [place] [id number] [place] [address] [id number] Sep, Chronic pain syndrome G89.4 ; Pain in left shoulder M25.512 and Effusion of olecranon bursa, left M25.422 [facility] [address] [address] Aug, [address] [place] [address] [id number] Aug, [place] [id number] [place] [address] [id number] Aug, Mixed hyperlipidemia E78.2 and Chronic kidney disease, unspecified N18.9 [place] [id number] [place] [address] [id number] Jul, Type 2 diabetes mellitus with diabetic neuropathy E11.40 ; Essential hypertension I10 and S/P coronary artery stent placement Z95.5 [address] [place] [address] [id number] Jul, 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 [place] [address] [id number] Jul, Diabetes type 2, uncontrolled E11.65 ; Essential hypertension I10 and 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 [place] [id number] [place] [address] [id number] Jul, [place] [id number] [place] [address] [id number] Jul, [place] [id number] [place] [address] [id number] Jul, [address] [id number] Jul, Chronic obstructive pulmonary disease, unspecified COPD type J44.9 [place] [id number] [place] [address] [id number] Jun, CKD (chronic kidney disease), stage 3 (moderate) N18.3 and Anemia, unspecified type D64.9 [place] [id number] [place] [address] [id number] Jun, Type 2 diabetes mellitus with diabetic neuropathy E11.40 ; Decreased GFR R94.4 ; CKD (chronic kidney disease), stage 3 (moderate) N18.3 and Decreased hemoglobin R71.0 [place] [id number] [place] [address] [id number] Jun, CKD (chronic kidney disease), stage 3 (moderate) N18.3 and Anemia, unspecified type D64.9 [place] [id number] [place] [address] [id number] Jun, Type 2 diabetes mellitus with diabetic neuropathy E11.40 ; Decreased GFR R94.4 and CKD (chronic kidney disease), stage 3 (moderate) N18.3 [place] [id number] [place] [address] [id number] Jun, Type 2 diabetes mellitus with diabetic neuropathy E11.40 and Essential hypertension I10 [place] [id number] [place] [address] [id number] Jun, [place] [id number] [place] [address] [id number] Jun, [place] [address] [id number] Jun, Type 2 diabetes mellitus with diabetic neuropathy E11.40 ; S/P coronary artery stent placement Z95.5 ; Chronic obstructive pulmonary disease, unspecified COPD type J44.9 ; Essential hypertension I10 ; GERD without esophagitis K21.9 ; Peripheral vascular disease I73.9 ; Mixed hyperlipidemia E78.2 and Hospital discharge follow-up Z09 [address] [id number] Jun, [address] [place] [address] [id number] May, Depression F32.9 and Hyperlipidemia, unspecified hyperlipidemia E78.5 [facility] [address] [address] May, [address] [id number] May, [address] [place] [address] [id number] May, Essential hypertension I10 ; Chronic pain syndrome G89.4 ; Pain in left shoulder M25.512 ; High risk medication use Z79.899 ; Chronic obstructive pulmonary disease, unspecified COPD type J44.9 ; S/P coronary artery stent placement Z95.5 ; Personal history of carotid stenosis Z86.79 ; Hyperlipidemia, unspecified hyperlipidemia E78.5 ; Decreased GFR R94.4 and Type 2 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 [address] [id number] May, Hemoglobin decreased R71.0 and Decreased GFR R94.4 [address] [place] [address] [id number] May, Hemoglobin decreased R71.0 and Decreased GFR R94.4 [address] [place] [address] [id number] May, [address] [id number] May, [place] [id number] [place] [address] [id number] Apr, [facility] [id number] [place] [address] [id number] Apr, Type 2 diabetes mellitus with foot [...] unspecified hyperlipidemia E78.5 and Essential hypertension I10 [facility] [id number] [place] [address] [id number] Apr, [facility] [id number] [place] [address] [id number] Mar, [facility] [id number] [place] [address] [id number] Mar, [facility] [address] [phone] Mar, [facility] [id number] [place] [address] [id number] Feb, [facility] [id number] [place] [address] [id number] Feb, [facility] [id number] [place] [address] [id number] Feb, [facility] [id number] [place] [address] [id number] Jan, Type 2 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 ; Hypercholesterolemia E78.0 ; Chronic pain syndrome G89.4 ; Pain in left shoulder M25.512 and High risk medication use Z79.899 [facility] [id number] [place] [address] [id number] Jan, [facility] [id number] [place] [address] [id number] Jan, [facility] [id number] [place] [address] [id number] December, [facility] [id number], [place] [id number] December, [facility] [id number] [place] [address] December, Diabetes type 2, uncontrolled E11.65 ; Type 2 diabetes mellitus with diabetic neuropathy E11.40 ; Peripheral vascular disease I73.9 ; 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 and 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 [facility] [address] [id number] [id number] Nov, [facility] [address] [id number] [place] [id number] Nov, [facility] [id number] [place] [address] [id number] Nov, [facility] [id number] [place] [address] [id number] Nov, Right hip pain M25.551 [facility] [id number] [place] [address] 650[address] 2546 Nov, [facility] [id number] [place] [address] 9[address]- [address] Nov, [facility] [id number] [place] [address] [id number] Nov, Diabetes with neurological manifestations, type II or unspecified type, 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.60 [facility] [address] [id number][place] [id number] Nov, [facility] [place] [address] [id number] [id number] Nov, [facility] [place] [address] [id number][place] [id number] Oct, Diabetes type 2, uncontrolled E11.65 ; Type 2 diabetes mellitus with diabetic neuropathy, unspecified E11.40 and Low back pain M54.5 [facility] [place] [address] [id number][place] [id number] Oct, [facility] [id number] [place] [address] [id number] Oct, [facility] [address] [id number][place] [id number] Oct, [facility] [address] [id number], [place] [id number] Sep, [facility] [address] [id number], [place] [id number] Sep, [facility] [address] [address] Sep, [facility] [address] [id number], [place] [id number] Sep, [facility] [address] [id number], [place] [id number] Sep, [facility] [id number] [place] [address] [id number] Aug, 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 [facility] [id number], [place] [id number] Aug, [facility] [id number] [place] [address] [id number] Aug, Allergic rhinitis due to pollen J30.1 [facility] [place] [address] [facility] [address] [id number] [id number] Jul, [facility] [id number], [place] [id number] Jul, [facility] [address] [id number], [place] [id number] Jul, [facility] [id number], [place] [id number] Jun, [facility] [address] [id number], [place] [id number] Jun, Thumb tendonitis M77.8 and Ringing in ear, bilateral H93.13 [facility] [place] [address] [id number] [id number] Jun, [facility] [id number], [place] [id number] May, [facility] [id number] [address]- [address] May, [place] [id number] [place] [address] May, Pre-op evaluation Z01.818 ; Encounter for immunization Z23 ; Type 2 diabetes mellitus with diabetic peripheral angiopathy without gangrene E11.51 ; Insulin long-term use Z79.4 ; Type 2 diabetes mellitus with foot ulcer E11.621 ; Peripheral vascular disease I73.9 ; Coronary artery disease involving ch[place]ick coronary artery of chul[place]ick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 ; S/P coronary artery stent placement Z95.5 ; Osteomyelitis of right foot, unspecified chronicity M86.9 and Chronic obstructive pulmonary disease, unspecified COPD type J44.9 [place] [id number] [place] [address] 31[address]- [address] May, [address] [id number] [place] [address] [id number] May, [address] [id number] May, Diabetes type 2, uncontrolled E11.65 ; Encounter for immunization Z23 ; Osteopenia M85.80 and Allergic rhinitis due to pollen J30.1 [address] [id number] [place] [address] [id number] May, Lumbago 724.2 [place] [id number] [place] [address] [id number] Apr, [address] [id number] Apr, [address] [id number] [place] [address] [id number] Apr, [address] [id number] Apr, [place] [id number] [place] [address] 17[address]- 4409 Mar, [address] [id number] Mar, [facility] [address] [id number], [place] [id number] Mar, [facility] [id number] [place] [address] [id number] Mar, [facility] [facility] [id number], [place] [id number] Mar, [facility] [id number] [place] [address]28- 2546 Mar, [facility] [id number] [place] [address] [id number] Mar, [facility] [id number] [place] [address] [id number] Mar, Diabetes with neurological manifestations, type II or unspecified type, 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.60 and Severe obesity (BMI 35.0-35.9 with comorbidity) 278.01 [facility] [id number] [place] [address] [id number] Mar, [facility] [id number] [place] [address] 42906- 2546 Mar, [facility] [id number] [place] [address] 89343 2546 Feb, [facility] [id number], [place] [id number] Feb, [facility] [id number], [place] [id number] Feb, [facility] [id number], [place] [id number] Feb, Diabetes with neurological manifestations, type II or unspecified type, 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.60 [facility] [id number], [place] [id number] Feb, [facility] [id number] [place] [address] 54355- 2546 Feb, [facility] [id number], [place] [id number] Feb, [facility] [id number] [place] [address] [id number] Feb, Follow up V67.9 ; Diabetes with neurological manifestations, type II or unspecified type, 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.60 and Congestive heart failure 428.0 [facility] [id number], [place] [id number] Jan, [facility] [id number] [place] [address] [id number] Jan, [facility] [id number] [place] [address] [id number] Jan, [facility] [id number] [place] [address] [id number] December, Otitis media with effusion 381.4 ; Left arm numbness 782.0 and Osteoporosis 733.00 [facility] [id number] [place] [address] [id number] December, [facility] [id number] [place] [address] [id number] Nov, [facility] [id number] [place] [address] [id number] Nov, Serous otitis media 381.4 and Lumbago 724.2 [facility] [id number] [place] [address] 25880- 3202 Nov, [facility] [id number] [place] [address] [id number] Nov, [facility] [id number], [place] [id number] Oct, [facility] [id number] [place] [address] 31379- 9606 Oct, [facility] [id number] [place] [address] [id number] Oct, [facility] [id number] [place] [address] 89625- 2383 Oct, [facility] [id number] [place] [address] [id number] Oct, [facility] [id number] [place] [address] 08085- 8095 Oct, [facility] [place] [facility] [address] [facility] [id number] [place] [address]- 6916 Sep, [facility] [place] [facility] [address] [facility] [id number] [place] [address]- 9796 Sep, [facility] [address] [facility] [id number] [place] [id number] Sep, [facility] [place] [facility] [address] [facility] [id number] [address]- 5094 Sep, [facility] [address] [id number] [place] [id number] Aug, [facility] [place] [facility] [address] [facility] [id number] [address]- 3924 Aug, [facility] [address] [id number] [place] [id number] Aug, [facility] [place] [facility] [address] [facility] [id number] [place] [address]- 4342 Aug, [facility] [address] [id number] [place] [id number] Jul, [facility] [place] [facility] [address] [facility] [id number] [place] [address]- 5517 Jul, [facility] [address] [id number], [place] [id number] Jul, [facility] [place] [facility] [address] [facility] [id number] [address]- 4941 Jul, [facility] [address] [id number], [place] [id number] Jul, [facility] [place] [facility] [address] [facility] [id number] [place] [address]- 6901 Jul, [facility] [address] [id number] [place] [id number] Jun, [facility] [place] [facility] [address] [facility] [id number] [place] [address]- 2045 Jun, [facility] [address] [id number], [place] [id number] May, [facility] [place] [facility] [address] [facility] [id number] [place] [address]- 2276 May, [facility] [address] [id number] [place] [id number] May, [facility] [place] [facility] [address] [facility] [id number] [place] [address]- 4316 May, [facility] [address] [id number], [place] [id number] May, [facility] [place] [facility] [address] [facility] [id number] [place] [address]- 6770 May, [facility] [address] [facility] [id number], [place] [id number] May, [facility] [address] [facility] [id number], [place] [id number] May, [facility] [place] [facility] [address] [facility] [id number] [place] [address]- 8105 May, [facility] [place] [facility] [address] [facility] [id number] [place] [address]- 7071 May, [facility] [address] [facility] [id number], [place] [id number] May, [facility] [place] [facility] [address] [facility] [id number] [place] [address]- 7698 May, [facility] [place] [facility] [address] [facility] [id number] [place] [address]- 9819 Apr, [facility] [address] [facility] [id number], [place] [id number] Apr, [facility] [place] [facility] [address] [facility] [id number] [place] [address]- 7543 Apr, [facility] [address] [id number], [place] [id number] Apr, [facility] [address] [id number], [place] [id number] Apr, [facility] [place] [facility] [address] [facility] [id number] [place] [address]- 8849 Apr, [facility] [place] [facility] [address] [facility] [id number] [place] [address]- 1916 Apr, [facility] [address] [facility] [id number], [place] [id number] Apr, [facility] [place] [facility] [address] [facility] [id number] [place] [address]- 9119 Apr, [facility] [address] [id number], [place] [id number] Apr, [facility] [place] [facility] [address] [facility] [id number] [place] [address]- 6595 Apr, [facility] [address] [facility] [id number], [place] [id number] Apr, [facility] [place] [facility] [address]00565100[place] [address]- 5783 Apr, [facility] [address] [facility] [id number], [place] [id number] Apr, [facility] [place] [facility] [address] [facility] [id number] [place] [address]- 5291 Apr, [facility] [address] [id number], [place] [id number] Apr, [facility] [place] [facility] [address] [facility] [id number] [place] [address]- 1841 Apr, [facility] [address] [id number], [place] 533765911 Apr, [facility] [place] [facility] [address] [facility] [id number] [place] [address]- 6650 Apr, [facility] [address] [id number], [place] [id number] Mar, [facility] [place] [facility] [address] [facility] [id number] [place] [address]- 0167 Mar, [facility] [address] [id number], [place] [id number] Mar, [facility] [address] [id number] [place] [id number] Mar, [facility] [place] [facility] [address] [id number] [place] [address]- 9880 Mar, [facility] [place] [facility] [address] [facility] [id number] [place] [address]- 3765 Mar, [facility] [address] [id number] [place] [id number] Mar, [facility] [place] [facility] [address] [id number] [place] [address]- 4391 Mar, [facility] [address] [id number] [place] [id number] Mar, [facility] [place] [facility] [address] [facility] [id number] [place] [address]- 2720 Mar, [facility] [address] [id number] [place] [id number] Mar, [facility] [place] [facility] [address] [facility] [id number] [place] [address]- 3661 Mar, [facility] [address] [id number] [place] [id number] Mar, [facility] [place] [facility] [address] [facility] [id number] [place] [address]- 8083 Mar, [facility] [address] [id number] [place] [id number] Mar, [facility] [place] [facility] [address] [facility] [id number] [place] [address]- 5669 Mar, [facility] [address] [id number] [place] [id number] Mar, [facility] [place] [facility] [address] [facility] [id number] [place] [address]- 9884 Mar, [facility] [address] [id number] [place] [id number] Mar, [facility] [place] [facility] [address] [facility] [id number] [place] [address]- 1243 Mar, [facility] [address] [id number] [place] [id number] Feb, [facility] [place] [facility] [address] [id number] [place] [address]- 6485 Feb, [facility] [address] [id number] [place] [id number] Feb, [facility] [place] [facility] [address] [id number] [place] [address]- 8184 Feb, [facility] [address] [id number] [place] [id number] Feb, [facility] [place] [facility] [address] [id number] [place] [address]- 7153 Feb, [facility] [address] [id number] [place] [id number] Feb, [facility] [place] [facility] [address] [facility] [id number] [place] [address]- 0191 Feb, [facility] [address] [id number] [place] [id number] Feb, [facility] [place] [facility] [address] [facility] [id number] [place] [address]- 3625 Feb, [facility] [address] [id number] [place] [id number] Feb, [facility] [place] [facility] [address] [facility] [id number] [place] [address]- 4582 Feb, [facility] [address] [id number] [place] [id number] Feb, [facility] [place] [facility] [address] [id number] [place] [address]- 0990 Feb, [facility] [address] [id number] [place] [id number] Feb, [facility] [place] [facility] [address] [id number] [place] [address]- 5695 Feb, [facility] [address] [id number] [place] [id number] Feb, [facility] [place] [facility] [address] [id number] [place] [address]- 5634 Feb, [facility] [address] [id number] [place] [id number] Feb, [facility] [address] [id number] [place] [id number] Feb, [facility] [place] [facility] [address] [id number] [place] [address]- 4961 Feb, [facility] [place] [facility] [address] [facility] [id number] [place] [address]- 7813 Feb, [facility] [address] [id number] [place] [id number] Feb, [facility] [place] [facility] [address] [facility] [id number] [place]- 7756 Feb, [facility] [address] [facility] [id number] [place] [id number] Feb, [facility] [place] [facility] [address] [facility] [id number] [place] [address]- 9924 Feb, [facility] [address] [id number] [place] [id number] Feb, [facility] [place] [facility] [address] [facility] [id number] [place] [address]- 2459 Feb, [facility] [address] [facility] [id number] [place] [id number] Jan, [facility] [place] [facility] [address] [facility] [id number] [place] [address]- 6285 Jan, [facility] [place] [facility] [address] [facility] [id number] [place] [address]- 8213 Jan, [facility] [place] [facility] [address] [facility] [id number] [place] [address]- 2375 Jan, [facility] [place] [facility] [address] [facility] [id number] [place] [address]- 0356 Jan, [facility] [place] [facility] [address] [facility] [id number] [place] [address]- 1285 Jan, [facility] [address] [id number] [place] [id number] Jan, [facility] [place] [facility] [address] [id number] [place] [address]- 8109 Jan, [facility] [place] [facility] [address] [facility] [id number] [place] [address]- 5707 Jan, [facility] [place] [facility] [address] [facility] [id number] [place] [address]- 7993 Jan, [facility] [address] [id number] [place] [id number] Jan, [facility] [address] [id number] [place] [id number] Jan, [facility] [place] [facility] [address] [facility] [id number] [place] [address]- 8478 Jan, [facility] [place] [facility] [address] [facility] [id number] [place] [address]- 8320 Jan, [facility] [address] [id number] [place] [id number] Jan, [facility] [address] [id number] [place] [id number] Jan, [facility] [place] [facility] [address] [facility] [id number] [place] [address]- 3855 Jan, [facility] [place] [facility] [address] [facility] [id number] [place] [address]- 8157 Jan, [facility] [place] [facility] [address] [facility] [id number] [place] [address]- 1920 Jan, [facility] [address] [id number] [place] [id number] December, [facility] [place] [facility] [address] [facility] [id number] [place] [address]- 8864 December, [facility] [place] [facility] [address] [facility] [id number] [place] [address]- 1027 December, [facility] [address] [id number] [place] [id number] December, [facility] [place] [facility] [address] [id number] [place] [address]- 8136 December, [facility] [address] [facility] [id number] [place] [id number] December, [facility] [place] [facility] [address] [facility] [id number] [place] [address]- 3896 December, [facility] [address] [facility] [id number] [place] [id number] December, [facility] [place] [facility] [address] [facility] [id number] [place] [address]- 7246 December, [facility] [address] [facility] [id number] [place] [id number] Nov, [facility] [place] [facility] [address] [facility] [id number] [place] [address]- 4816 Nov, [facility] [address] [facility] [id number], [place] [id number] Nov, [facility] [place] [facility] [address] [facility] [id number] [place] [address]- 0422 Nov, [facility] [place] [facility] [address] [facility] [id number] [place] [address]- 4153 Nov, [facility] [place] [facility] [address] [facility] [id number] [place] [address]- 8456 Nov, [facility] [place] [facility] [address] [facility] [id number] [place] [address]- 3463 Oct, [facility] [address] [facility] [id number] [place] [id number] Oct, [facility] [place] [facility] [address] [facility] [id number] [place] [address]- 5256 Oct, [facility] [address] [facility] [id number] [place] [id number] Oct, [facility] [place] [facility] [address] [facility] [id number] [place] [address]- 4246 Oct, [facility] [address] [id number] [place] [id number] Sep, [facility] [place] [facility] [address] [facility] [id number] [place] [address]- 3130 Sep, [facility] [address] [id number] [place] [id number] Aug, [facility] [place] [facility] [address] [facility] [id number] [place] [address]- 0085 Aug, [facility] [address] [facility] [id number] [place] [id number] Aug, [facility] [place] [facility] [address] [facility] [id number] [place] [address]- 4628 Aug, [facility] [place] [facility] [address] [facility] [id number] [place] [address]- 0344 Aug, [facility] [address] [facility] [id number] [place] [id number] Aug, [facility] [place] [facility] [address] [facility] [id number] [place] [address]- 0228 Aug, [facility] [place] [facility] [address] [facility] [id number] [place] [address]- 2398 Aug, [facility] [address] [facility] [id number], [place] [id number] Aug, [facility] [place] [facility] [address] [facility] [id number] [place] [address]- 6867 Aug, [facility] [address] [facility] [id number], [place] 156925175 Jul, [facility] [place] [facility] [address] [facility] [id number] [place] [address]- 4811 Jul, [facility] [address] [facility] [id number] [place] [id number] Jul, [facility] [place] [facility] [address] [facility] [id number] [place] [address]- 5178 Jul, [facility] [address] [facility] [id number], [place] [id number] Jul, [facility] [address] [facility] [id number] [place] [address]- 2546 Jul, [facility] [address] [id number] [place] [id number] Jul, [facility] [address] [facility] [id number] [place] [address]- 6273 Jul, [facility] [address] [id number], [place] [id number] Jun, [facility] [address] [facility] [id number] [place] [address]- 2717 Jun, [facility] [address] [id number], [place] [id number] Jun, [facility] [address] [facility] [id number] [place] [address]- 0763 Jun, [facility] [address] [id number] [place] [address]- 1786 Jun, [facility] [address] [facility] [id number] [place] [address]- 9514 Jun, [facility] [address] [id number], [place] [id number] Apr, [facility] [address] [id number], [place] 393766922 Mar, [facility] [address] [id number], [place] 356165639 Mar, [facility] [address] [id number], [place] 114852625 Feb, [facility] [address] [id number] [place] [id number] Feb, [facility] [address] [id number] [place] [id number] Feb, [facility] [address] [id number] [place] [id number] December, [facility] [address] [id number] [place] [id number] December, [facility] [address] [id number] [address] December, [facility] [address] [id number] [place] [id number] December, [facility] [address] [id number] [place] [id number] December, [facility] [address] [id number] [place] [id number] Nov, [facility] [address] [id number] [place] [id number] Nov, [facility] [address] [id number] [place] [id number] Nov, [facility] [address] [id number] [place] [id number] Oct, [facility] [address] [id number] [place] [id number] Sep, [facility] [address] [id number] [place] [id number] Aug, [facility] [address] [facility] [id number] [place] [address] Aug, [facility] [address] [id number] [place] [id number] Aug, [facility] [address] [id number] [place] [id number] Jul, [facility] [address] [facility] [id number] [place] [address] Jul, [facility] [address] [id number][place] [id number] Jul, [facility] [address] [facility] [id number] [place] [address] Jul, [facility] [address] [id number][place] [id number] Jun, [facility] [address] [facility] [id number] [place] [address] Jun, [facility] [address] [id number][place] [id number] May, [facility] [address] [id number] [place] [address] May, [facility] [address] [id number] [place] [id number] May, [facility] [address] [facility] [id number] [place] [address] May, [facility] [address] [id number] [place] [id number] Apr, [facility] [address] [id number] [place] [id number] Apr, [facility] [address] [id number] [place] [id number] Mar, [facility] [address] [id number] [place] [id number] Mar, [facility] [address] [id number] [place] [id number] Feb, [facility] [address] [id number] [place] [id number] Feb, [facility] [address] [id number] [place] [id number] Jan, [facility] [address] [id number] [place] [id number] Jan, [facility] [address] [id number], [place] [id number] Jan, [facility] [address] [id number] [place] [id number] Jan, [facility] [address] [id number] [place] [id number] December, [facility] [address] [id number] [place] [id number] December, [facility] [address] [facility] [id number] [place] [address] Nov, [facility] [address] [id number], [place] [id number] Nov, [facility] [address] [id number] [place] [id number] Nov, [facility] [address] [id number] [place] [id number] Nov, [facility] [address] [id number] [place] [id number] Nov, [facility] [address] [facility] [id number] [place] [address] Oct, [facility] [address] [facility] [id number] [place] [address] Oct, [facility] [address] [id number] [place] [id number] Oct, [facility] [address] [id number] [place] [id number] Oct, [facility] [address] [id number] [place] [id number] Oct, [facility] [address] [id number] [place] [id number] Oct, [facility] [address] [id number] [place] [id number] Oct, [facility] [address] [id number] [place] [id number] Oct, [facility] [address] [id number] [place] [id number] Oct, [facility] [address] [facility] [id number] [place] [address] Oct, [facility] [address] [id number] [id number] Sep, [facility] [address] [id number] [place] [id number] Sep, [facility] [address] [id number] [place] [id number] Aug, [facility] [address] [id number] [place] [id number] Aug, [facility] [address] [facility] [id number] [place] [address] Jul, [facility] [id number] [address] Jul, [facility] [id number] [address] Jul, [facility] [id number] [address] Jul, [facility] [id number] [address] Jul, [facility] [id number] [address] Jul, [facility] [id number] [place] [address] Jul, [facility] [id number] [place] [address] Jul, [facility] [id number] [place] [address]- [address] Jul, [facility] [address]00565100[place] [address] Jul, [facility] [address]00565100[place] [address] Jul, [facility] [address]00565100[place] [address] Jul, [facility] [id number] [address] Jul, [facility] [address] [id number] [address] Jul, IMMUNIZATIONS No Known Immunizations SOCIAL HISTORY Never Assessed REASON FOR VISIT RX to [facility] PLAN OF CARE VITAL SIGNS MEDICATIONS Medication Instructions Dosage Frequency Start Date End Date Duration Status [facility] - Orally 3 times a day 1 capsule 8h Aug, Aug, 0 days Active RESULTS No Results PROCEDURES [...] in the future. Medical History 05/26/17 noted, nursing home has ended and they feel he [...] [facility] Surgical History amputation, toe-right third toe ([facility]) 2013 Surgical History [facility]2014 Surgical History heart cath with stent [...]
--- OUTSIDE RECORDS SUMMARY | 2018-06-20 10:20 | XMS REPORT ---
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 Name Role Phone SATINDER GOOD Unavailable PROBLEMS Type Condition ICD9-CM Code [id number] Code Onset Dates Condition Status SNOMED Code Problem Peripheral vascular disease I73.9 Active 079799496 Problem Coronary artery disease involving [place] coronary artery of [place]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 Active 5777690005776 Problem S/P coronary artery stent placement Z95.5 Active 826842763 Problem Chronic obstructive pulmonary disease, unspecified COPD type J44.9 Active 22425419 Problem Type 2 diabetes mellitus with diabetic neuropathy E11.40 Active 01515236 Problem Bilateral low back pain without sciatica M54.5 Active 475312587 Problem 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 Active 806606193 Problem 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 Active 892637632 Problem Hypercholesterolemia E78.0 Active 98303057 Problem Comprehensive diabetic foot examination, type 2 DM, encounter for E11.9 Active 85369668 Problem Type 2 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 Active 643905911 Problem Obesity (BMI 30.0-34.9) E66.9 Active 169665921139850 Problem Personal history of carotid stenosis Z86.79 Active 053003921 Problem Aphasia R47.01 Active 10786401 Problem Chronic diarrhea K52.9 Active 805478205 Problem Uses walker Z99.89 Active 846301144 Problem Chronic fatigue R53.82 Active 46715995 Problem Mixed stress and urge urinary incontinence N39.46 Active 562069663 Problem Chronic pain syndrome G89.4 Active 562364635 Problem High risk medication use Z79.899 Active 964583400 Problem Osteomyelitis of right foot, unspecified chronicity M86.9 Active 51927290 Problem Fatigue, unspecified type R53.83 Active 47971880 Problem Diabetes type 2, uncontrolled E11.65 Active 687989769 Problem Full incontinence of feces R15.9 Active 039822620729532 Problem Other chronic pain G89.29 Active 50687475 Problem Functional diarrhea K59.1 Active 62485442 Problem Fecal urgency R15.2 Active 13011714 Problem Depression F32.9 Active 14740235 Problem CKD (chronic kidney disease), stage 3 (moderate) N18.3 Active 908498461 Problem Hyperlipidemia, unspecified hyperlipidemia E78.5 Active 56060611 Problem CKD (chronic kidney disease) stage 3, GFR 30-59 ml/min N18.3 Active 994442149 Problem Type 2 diabetes mellitus with diabetic peripheral angiopathy without gangrene E11.51 Active 654266729 Problem Pain in left shoulder M25.512 Active 14215498 Problem Insulin long-term use Z79.4 Active 364521170 Problem Essential hypertension I10 Active 63183694 Problem Type 2 diabetes mellitus with diabetic retinopathy, macular edema presence unspecified, with unspecified retinopathy severity E11.319 Active 63216746 Problem Chronic kidney disease, unspecified N18.9 Active 901141444 Problem Type 2 diabetes mellitus with foot ulcer E11.621 Active 910238036 Problem Frequent falls R29.6 Active 868645642 Problem GERD without esophagitis K21.9 Active 122857544 Problem Mixed hyperlipidemia E78.2 Active 881214134 ALLERGIES No Known Allergies ENCOUNTERS Encounter Location Date Diagnosis [place] [address] [id number] Jan, [place] [address] [place] [id number] [place] [address] [id number] Jan, [place] [address] [id number] [place] [address] [id number] Jan, [facility] [id number] [place] [address] [id number] Jan, Other chronic pain G89.29 [place] [address] [id number] [place] [address] [id number] December, Mixed stress and urge urinary incontinence N39.46 [place] [address] [id number] [place] [address] [id number] December, Chronic fatigue R53.[address] [id number] December, Other chronic pain G89.29 [place] [id number] [place] [address] [id number] December, Diabetes type 2, uncontrolled E11.65 ; [...] chronic pain G89.29 [facility] [address] [place] [id number] [address] December, [address] [place] [address] [id number] December, Medicare annual wellness visit, subsequent Z00.00 ; Type 2 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 ; Chronic obstructive pulmonary disease, unspecified COPD type J44.9 ; Depression F32.9 ; Peripheral vascular disease I73.9 ; Coronary artery disease involving [place] coronary artery of [place]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 ; Hypercholesterolemia E78.0 ; GERD without esophagitis K21.9 and Chronic kidney disease, unspecified N18.9 [place] [id number] [phone] December, Mixed stress and urge urinary incontinence N39.46 ; Full incontinence of feces R15.9 ; Fecal urgency R15.2 ; Functional diarrhea K59.1 and Type 2 diabetes mellitus with diabetic neuropathy E11.[address] [place] [address] [id number] Nov, Other chronic pain G89.29 [address] [place] [address] [id number] Oct, [address] [place] [address] [id number] Oct, [place] [id number] [id number] Oct, Other chronic pain G89.29 [place] [id number] [place] [address] [id number] Sep, Other chronic pain G89.29 [address] [id number] Aug, CKD (chronic kidney disease), stage 3 (moderate) N18.3 ; Anemia, unspecified type D64.9 and Dilated pore of Ly L70.8 [address] [id number] Aug, Other chronic pain G89.29 ; Pain in left shoulder M25.512 ; High risk medication use Z79.899 ; Uses walker Z99.89 ; Diabetes type 2, uncontrolled E11.65 and Depression F32.9 [place] [id number] [place] [address] [id number] Aug, Chronic diarrhea K52.9 [address] [id number] Aug, Chronic diarrhea K52.9 ; Type 2 diabetes mellitus with diabetic neuropathy E11.40 ; Diabetes type 2, uncontrolled E11.65 ; Insulin long-term use Z79.4 ; Chronic obstructive pulmonary disease, unspecified COPD type J44.9 ; Chronic pain syndrome G89.4 ; Pain in left shoulder M25.512 ; Uses walker Z99.89 ; S/P coronary artery stent placement Z95.5 ; Mixed hyperlipidemia E78.2 and Essential hypertension I10 [address] [id number] Aug, [address] [id number] Jul, Diabetes type 2, uncontrolled E11.65 [address] [place] [address] [id number] Jul, Diabetes type 2, uncontrolled E11.65 ; Type 2 diabetes mellitus with diabetic neuropathy E11.40 ; Insulin long-term use Z79.4 and Chronic obstructive pulmonary disease, unspecified COPD type J44.9 [address] [id number] Jun, [address] [place] [address] [id number] Jun, Essential hypertension I10 [address] [place] [address] [id number] Jun, Essential hypertension I10 [address] [place] [address] [id number] Jun, Type 2 diabetes mellitus with diabetic neuropathy E11.40 ; Type 2 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 ; S/P coronary artery stent placement Z95.5 ; Obesity (BMI 30.0-34.9) E66.9 ; Mixed hyperlipidemia E78.2 ; Frequent falls R29.6 ; Chronic obstructive pulmonary disease, unspecified COPD type J44.9 ; Essential hypertension I10 ; Insulin long-term use Z79.4 and High risk medication use Z79.8[address] [place] [address] [id number] May, Diarrhea, unspecified type R19.7 ; Type 2 diabetes mellitus with diabetic neuropathy E11.40 ; Chronic obstructive pulmonary disease, unspecified COPD type J44.9 ; S/P coronary artery stent placement Z95.5 ; High risk medication use Z79.899 ; Essential hypertension I10 ; Encounter for administration of vaccine Z23 and Encounter for immunization Z23 [address] [id number] [id number] May, Chronic obstructive pulmonary disease, unspecified COPD type J44.[address] [id number] [id number] May, Type 2 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 ; Encounter for immunization Z23 ; Needs flu shot Z23 ; Comprehensive diabetic foot examination, type 2 DM, encounter for E11.9 and Obesity (BMI 30.0-34.9) E66.9 [place] [id number] [id number] May, [address] [place] [address] [id number] Apr, [facility] [id number] [place] [address] [id number] Apr, Essential hypertension I10 and Aphasia R47.01 [facility] [address] [place] [id number] [place] [address] [id number] Apr, [facility] [address] [address] [id number] [place] [address] [id number] Apr, Type 2 diabetes mellitus with diabetic neuropathy E11.40 ; Frequent falls R29.6 ; Essential hypertension I10 ; S/P coronary artery stent placement Z95.5 ; High risk medication use Z79.899 ; Hyperlipidemia, unspecified hyperlipidemia E78.5 ; CKD (chronic kidney disease), stage 3 (moderate) N18.3 ; Pain in left shoulder M25.512 and Chronic obstructive pulmonary disease, unspecified COPD type J44.9 [facility] [address] [address] [place] [address] [id number] Mar, [place] [address] [place] [address] [id number] Mar, Type 2 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 ; Leg wound, left, initial encounter S81.802A ; Hx of shoulder surgery Z98.890 ; Acute pain of left shoulder M25.512 and Fall, initial encounter W19.XXXA [place] [address] [id number] [place] [address] [id number] Feb, Follow-up exam Z09 ; Hx of shoulder surgery Z98.890 ; Acute pain of left shoulder M25.512 ; Essential hypertension I10 and Leg wound, left, initial encounter S81.802A [facility] [id number] [place] [address] [id number] Feb, [place] [address] [place] [address] [id number] Feb, [place] [address] [place] [address] [id number] Feb, Chronic obstructive pulmonary disease, unspecified COPD type J44.9 [place] [address] [place] [address] [id number] Feb, [address] [place] [id number] Jan, Generalized weakness R53.1 ; Exertional shortness of breath R06.02 and Fungal rash of trunk B36.9 [facility] [id number] [place] [address] [id number] Jan, [facility] [id number] [place] [address] [id number] Jan, [facility] [address] [id number] [place] [address] [id number] Jan, [facility] [id number] [place] [address] [id number] Jan, [facility] [id number] [place] [address] [id number] December, High risk medication use Z79.899 [facility] [id number] [place] [address] [id number] December, Type 2 diabetes mellitus with diabetic neuropathy E11.40 [facility] [id number] [place] [address] [id number] December, High risk medication use Z79.899 [place] [address] [address] [id number] [place] [address] [id number] Nov, Diabetes type 2, uncontrolled E11.65 [place] [address] [place] [address] [id number] Nov, Medicare annual wellness visit, initial Z00.00 ; Bilateral low back pain without sciatica M54.5 ; Pain in left shoulder M25.512 ; Chronic pain syndrome G89.4 ; Type 2 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 ; High risk medication use Z79.899 and Encounter for immunization Z23 [facility] [id number] [place] [address] [id number] Nov, Type 2 diabetes mellitus with diabetic neuropathy E11.40 ; Coronary artery disease involving [place] coronary artery of [place]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 and CKD (chronic kidney disease), stage 3 (moderate) N18.3 [facility] [id number] [place] [address] [id number] Oct, Type 2 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 ; Chronic pain syndrome G89.4 ; Chronic obstructive pulmonary disease, unspecified COPD type J44.9 ; Chronic kidney disease, unspecified N18.9 and Rash R21 [address] [id number] Oct, Type 2 diabetes mellitus with diabetic neuropathy E11.40 [place] [address] [place] [address] [id number] Oct, Rash R21 and Impetigo L01.00 [place] [address] [place] [address] [id number] Oct, Chronic pain syndrome G89.4 [place] [address] [place] [address] [id number] Oct, [place] [address] [place] [address] [id number] Sep, Sebaceous cyst L72.3 [place] [address] [place] [address] [id number] Sep, Sebaceous cyst L72.3 [place] [address] [place] [address] [id number] Sep, Chronic pain syndrome G89.4 ; Pain in left shoulder M25.512 and Effusion of olecranon bursa, left M25.422 [facility] [address] [address] Aug, [address] [place] [address] [id number] Aug, [place] [address] [place] [address] [id number] Aug, Mixed hyperlipidemia E78.2 and Chronic kidney disease, unspecified N18.9 [place] [address] [place] [address] [id number] Jul, Type 2 diabetes mellitus with diabetic neuropathy E11.40 ; Essential hypertension I10 and S/P coronary artery stent placement Z95.5 [place] [address] [place] [address] [id number] Jul, 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 [place] [address] [place] [address] [id number] Jul, Diabetes type 2, uncontrolled E11.65 ; Essential hypertension I10 and 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 [place] [address] [place] [address] [id number] Jul, [place] [address] [place] [address] [id number] Jul, [place] [address] [place] [address] [id number] Jul, [address] [id number] Jul, Chronic obstructive pulmonary disease, unspecified COPD type J44.9 [place] [address] [place] [address] [id number] Jun, CKD (chronic kidney disease), stage 3 (moderate) N18.3 and Anemia, unspecified type D64.9 [place] [address] [place] [address] [id number] Jun, Type 2 diabetes mellitus with diabetic neuropathy E11.40 ; Decreased GFR R94.4 ; CKD (chronic kidney disease), stage 3 (moderate) N18.3 and Decreased hemoglobin R71.0 [place] [address] [place] [address] [id number] Jun, CKD (chronic kidney disease), stage 3 (moderate) N18.3 and Anemia, unspecified type D64.9 [place] [address] [place] [address] [id number] Jun, Type 2 diabetes mellitus with diabetic neuropathy E11.40 ; Decreased GFR R94.4 and CKD (chronic kidney disease), stage 3 (moderate) N18.3 [place] [address] [place] [address] [id number] Jun, Type 2 diabetes mellitus with diabetic neuropathy E11.40 and Essential hypertension I10 [place] [address] [place] [address] [id number] Jun, [place] [address] [place] [address] [id number] Jun, [address] [id number] Jun, Type 2 diabetes mellitus with diabetic neuropathy E11.40 ; S/P coronary artery stent placement Z95.5 ; Chronic obstructive pulmonary disease, unspecified COPD type J44.9 ; Essential hypertension I10 ; GERD without esophagitis K21.9 ; Peripheral vascular disease I73.9 ; Mixed hyperlipidemia E78.2 and Hospital discharge follow-up Z09 [address] [id number] Jun, [address] [place] [address] [id number] May, Depression F32.9 and Hyperlipidemia, unspecified hyperlipidemia E78.5 [facility] [address] [address] May, [address] [id number] May, [address] [place] [address] [id number] May, Essential hypertension I10 ; Chronic pain syndrome G89.4 ; Pain in left shoulder M25.512 ; High risk medication use Z79.899 ; Chronic obstructive pulmonary disease, unspecified COPD type J44.9 ; S/P coronary artery stent placement Z95.5 ; Personal history of carotid stenosis Z86.79 ; Hyperlipidemia, unspecified hyperlipidemia E78.5 ; Decreased GFR R94.4 and Type 2 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 [address] [id number] May, Hemoglobin decreased R71.0 and Decreased GFR R94.[address] [place] [address] [id number] May, Hemoglobin decreased R71.0 and Decreased GFR R94.[address] [place] [address] [id number] May, [place] [id number] [id number] May, [place] [address] [place] [address] [id number] Apr, [facility] [id number] [place] [address] [id number] Apr, Type 2 diabetes mellitus with foot [...] unspecified hyperlipidemia E78.5 and Essential hypertension I10 [facility] [id number] [place] [address] [id number] Apr, [facility] [id number] [place] [address] [id number] Mar, [facility] [id number] [place] [address] [id number] Mar, [facility] [address] [phone] Mar, [facility] [id number] [place] [address] [id number] Feb, [facility] [id number] [place] [address] [id number] Feb, [facility] [id number] [place] [address] [id number] Feb, [facility] [id number] [place] [address] [id number] Jan, Type 2 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 ; Hypercholesterolemia E78.0 ; Chronic pain syndrome G89.4 ; Pain in left shoulder M25.512 and High risk medication use Z79.899 [facility] [id number] [place] [address] [id number] Jan, [facility] [id number] [place] [address] [id number] Jan, [facility] [id number] [place] [address] [id number] December, [facility] [id number] [id number] December, [facility] [address] [place] [id number] [place] [address] December, Diabetes type 2, uncontrolled E11.65 ; Type 2 diabetes mellitus with diabetic neuropathy E11.40 ; Peripheral vascular disease I73.9 ; 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 and 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 [facility] [address] [id number] [id number] Nov, [facility] [id number] [place] [address], [place] [id number] Nov, [facility] [id number] [place] [address] [id number] Nov, [facility] [id number] [place] [address] [id number] Nov, Right hip pain M25.551 [facility] [id number] [place] [address] [phone] Nov, [facility] [id number] [place] [address] 97[address]- 2546 Nov, [facility] [id number] [place] [address] [id number] Nov, Diabetes with neurological manifestations, type II or unspecified type, 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.60 [facility] [id number], [place] [id number] Nov, [facility] [place] [address] [id number] [id number] Nov, [facility] [place] [id number], [place] [id number] Oct, Diabetes type 2, uncontrolled E11.65 ; Type 2 diabetes mellitus with diabetic neuropathy, unspecified E11.40 and Low back pain M54.5 [facility] [address] [id number] [id number] Oct, [facility] [id number] [place] [address] [id number] Oct, [facility] [address] [facility] [id number] [id number] Oct, [facility] [place] [id number] [id number] Sep, [facility] [place] [id number], [place] [phone] Sep, [facility] [address], [place] [address] Sep, [facility] [id number] [place] [address] [id number] Sep, [facility] [id number] [place] [address] [id number] Sep, [facility] [id number] [place] [address] [id number] Aug, 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 [facility] [id number], [place] [id number] Aug, [facility] [id number] [place] [address] [id number] Aug, Allergic rhinitis due to pollen J30.1 [facility] [place] [address] [facility] [address] [id number][place] [id number] Jul, [facility] [address] [place] [address] [id number] [id number] Jul, [facility] [address] [place] [id number], [place] [id number] Jul, [facility] [id number], [place] [id number] Jun, [facility] [id number], [place] [phone] Jun, Thumb tendonitis M77.8 and Ringing in ear, bilateral H93.13 [facility] [address] [id number][place] [id number] Jun, [facility] [id number], [place] [id number] May, [facility] [id number] [place] [address] [phone] May, [place] [id number] [place] [address] 07359- 6760 May, Pre-op evaluation Z01.818 ; Encounter for immunization Z23 ; Type 2 diabetes mellitus with diabetic peripheral angiopathy without gangrene E11.51 ; Insulin long-term use Z79.4 ; Type 2 diabetes mellitus with foot ulcer E11.621 ; Peripheral vascular disease I73.9 ; Coronary artery disease involving [place] coronary artery of [place]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 ; S/P coronary artery stent placement Z95.5 ; Osteomyelitis of right foot, unspecified chronicity M86.9 and Chronic obstructive pulmonary disease, unspecified COPD type J44.9 [place] [id number] [place] [address] [phone] May, [place] [address] [place] [address] [id number] May, [address] [id number] May, Diabetes type 2, uncontrolled E11.65 ; Encounter for immunization Z23 ; Osteopenia M85.80 and Allergic rhinitis due to pollen J30.1 [place] [address] [place] [address] [id number] May, Lumbago 724.2 [place] [id number] [place] [address] [phone] Apr, [address] [id number] Apr, [place] [address] [place] [address] [id number] Apr, [address] [id number] Apr, [place] [id number] [place] [address] [phone] Mar, [address] [id number] Mar, [facility] [facility] [id number][place] [id number] Mar, [facility] [address] [id number][place] [id number] Mar, [facility] [id number], [place] [id number] Mar, [facility] [id number] [place] [address] 55469- 2546 Mar, [facility] [id number] [place] [address] [id number] Mar, [facility] [id number] [place] [address] [id number] Mar, Diabetes with neurological manifestations, type II or unspecified type, 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.60 and Severe obesity (BMI 35.0-35.9 with comorbidity) 278.01 [facility] [id number], [place] [id number] Mar, [facility] [id number] [place] [address] 09251 2546 Mar, [facility] [id number] [place] [address] 96631 2547 Feb, [facility] [id number], [place] [id number] Feb, [facility] [id number], [place] [id number] Feb, [facility] [id number], [place] [id number] Feb, Diabetes with neurological manifestations, type II or unspecified type, 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.60 [facility] [id number], [place] [id number] Feb, [facility] [id number] [place] [address] 75228- 2546 Feb, [facility] [address] [id number][place] [id number] Feb, [facility] [id number] [place] [address] [id number] Feb, Follow up V67.9 ; Diabetes with neurological manifestations, type II or unspecified type, 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.60 and Congestive heart failure 428.0 [facility] [id number] [place] [address] [id number] Jan, [facility] [id number] [place] [address] [id number] Jan, [facility] [id number] [place] [address] [id number] Jan, [facility] [id number] [place] [address] [id number] December, Otitis media with effusion 381.4 ; Left arm numbness 782.0 and Osteoporosis 733.00 [facility] [id number] [place] [address] [id number] December, [facility] [id number] [place] [address] [id number] Nov, [facility] [id number] [place] [address] [id number] Nov, Serous otitis media 381.4 and Lumbago 724.2 [facility] [id number] [place] [address] 24853- 8875 Nov, [facility] [id number] [place] [address] 67776- 8043 Nov, [facility] [id number] [place] [address] [id number] Oct, [facility] [id number] [place] [address] 72411- 1344 Oct, [facility] [id number] [place] [address] [id number] Oct, [facility] [id number] [place] [address] 54150- 2695 Oct, [facility] [id number] [place] [address] [id number] Oct, [facility] [id number] [place] [address] 40764- 8957 Oct, [facility] [place] [facility] [address] [facility] [id number], [place] [address]- 7015 Sep, [facility] [place] [facility] [address] [facility] [id number], [place] [address]- 2579 Sep, [facility] [address] [facility] [id number] [place] [id number] Sep, [facility] [place] [facility] [address] [facility] [id number], [place] [address]- 6277 Sep, [facility] [address] [id number] [place] [id number] Aug, [facility] [place] [facility] [address] [facility] [id number], [place] [address]- 3268 Aug, [facility] [address] [facility] [id number] [place] [id number] Aug, [facility] [place] [facility] [address] [facility] [id number], [place] [address]- 3133 Aug, [facility] [address] [facility] [id number] [place] [id number] Jul, [facility] [place] [facility] [address] [facility] [id number], [place] [address]- 2042 Jul, [facility] [address] [facility] [id number], [place] [id number] Jul, [facility] [place] [facility] [address] [facility] [id number], [place] [address]- 5014 Jul, [facility] [address] [id number], [place] [id number] Jul, [facility] [place] [facility] [address] [facility] [id number], [place] [address]- 1781 Jul, [facility] [address] [id number], [place] [id number] Jun, [facility] [place] [facility] [address] [facility] [id number], [place] [address]- 2947 Jun, [facility] [address] [id number] [place] [id number] May, [facility] [place] [facility] [address] [facility] [id number], [place] [address]- 4856 May, [facility] [address] [id number] [place] [id number] May, [facility] [place] [facility] [address] [facility] [id number], [place] [address]- 7826 May, [facility] [address] [id number], [place] [id number] May, [facility] [place] [facility] [address] [facility] [id number], [place] [address]- 1191 May, [facility] [address] [facility] [id number], [place] [id number] May, [facility] [address] [facility] [id number], [place] [id number] May, [facility] [place] [facility] [address] [facility] [id number], [place] [address]- 4072 May, [facility] [place] [facility] [address] [facility] [id number], [place] [address]- 1502 May, [facility] [address] [facility] [id number], [place] [id number] May, [facility] [place] [facility] [address] [facility] [id number], [place] [address]- 9748 May, [facility] [place] [facility] [address] [facility] [id number], [place] 709022- 9215 Apr, [facility] [address] [id number], [place] [id number] Apr, [facility] [place] [facility] [address] [facility] [id number], [place] [address]- 7256 Apr, [facility] [address] [id number], [place] [id number] Apr, [facility] [address] [id number], [place] [id number] Apr, [facility] [place] [facility] [address] [id number], [place] [address]- 1416 Apr, [facility] [place] [facility] [address] [facility] [id number], [place] [address]- 1479 Apr, [facility] [address] [facility] [id number], [place] [id number] Apr, [facility] [place] [facility] [address] [facility] [id number], [place] [address]- 1049 Apr, [facility] [address] [id number], [place] [id number] Apr, [facility] [place] [facility] [address] [facility] [id number], [place] [address]- 8014 Apr, [facility] [address] [facility] [id number], [place] [id number] Apr, [facility] [place] [facility] [address] [facility] [id number][place] [address]- 2127 Apr, [facility] [address] [facility] [id number], [place] [id number] Apr, [facility] [place] [facility] [address] [facility] [id number], [place] [address]- 3396 Apr, [facility] [address] [facility] [id number], [place] [id number] Apr, [facility] [place] [facility] [address] [facility] [id number], [place] [address]- 6991 Apr, [facility] [address] [id number], [place] 885739999 Apr, [facility] [place] [facility] [address] [facility] [id number], [place] [address]- 1361 Apr, [facility] [address] [id number], [place] [id number] Mar, [facility] [place] [facility] [address] [facility] [id number], [place] [address]- 0822 Mar, [facility] [address] [id number], [place] [id number] Mar, [facility] [address] [id number] [place] [id number] Mar, [facility] [place] [facility] [address] [facility] [id number], [place] [address]- 9701 Mar, [facility] [place] [facility] [address] [facility] [id number][place] [address]- 3733 Mar, [facility] [address] [id number] [place] [id number] Mar, [facility] [place] [facility] [address] [facility] [id number][place] [address]- 9329 Mar, [facility] [address] [id number] [place] [id number] Mar, [facility] [place] [facility] [address] [facility] [id number], [place] [address]- 8676 Mar, [facility] [address] [id number] [place] [id number] Mar, [facility] [place] [facility] [address] [facility] [id number][place] [address]- 5684 Mar, [facility] [address] [id number] [place] [id number] Mar, [facility] [place] [facility] [address] [facility] [id number], [place] [address]- 2958 Mar, [facility] [address] [facility] [id number] [place] [id number] Mar, [facility] [place] [facility] [address] [facility] [id number], [place] [address]- 0904 Mar, [facility] [address] [id number] [place] [id number] Mar, [facility] [place] [facility] [address] [facility] [id number] [place] [address]- 4701 Mar, [facility] [address] [id number] [place] [id number] Mar, [facility] [place] [facility] [address] [facility] [id number], [place] [address]- 2221 Mar, [facility] [address] [id number] [place] [id number] Feb, [facility] [place] [facility] [address] [id number] [place] [address]- 2275 Feb, [facility] [address] [id number] [place] [id number] Feb, [facility] [place] [facility] [address] [id number] [place] [address]- 3290 Feb, [facility] [address] [id number] [place] [id number] Feb, [facility] [place] [facility] [address] [id number] [place] [address]- 2919 Feb, [facility] [address] [id number] [place] [id number] Feb, [facility] [place] [facility] [address] [facility] [id number] [place] [address]- 4903 Feb, [facility] [address] [id number] [place] [id number] Feb, [facility] [place] [facility] [address] [facility] [id number] [place] [address]- 0920 Feb, [facility] [address] [id number] [place] [id number] Feb, [facility] [place] [facility] [address] [facility] [id number] [place] [address]- 2179 Feb, [facility] [address] [id number] [place] [id number] Feb, [facility] [place] [facility] [address] [id number] [place] [address]- 5878 Feb, [facility] [address] [id number] [place] [id number] Feb, [facility] [place] [facility] [address] [id number] [place] [address]- 8089 Feb, [facility] [address] [id number] [place] [id number] Feb, [facility] [place] [facility] [address] [id number] [place] [address]- 0636 Feb, [facility] [address] [id number] [place] [id number] Feb, [facility] [address] [id number] [place] [id number] Feb, [facility] [place] [facility] [address] [id number] [place] [address]- 5741 Feb, [facility] [place] [facility] [address] [id number] [place] [address]- 0511 Feb, [facility] [address] [id number] [place] [id number] Feb, [facility] [place] [facility] [address] [facility] [id number], [place] [address]- 7637 Feb, [facility] [address] [facility] [id number] [place] [id number] Feb, [facility] [place] [facility] [address] [facility] [id number], [place] [address]- 7268 Feb, [facility] [address] [id number] [place] [id number] Feb, [facility] [place] [facility] [address] [facility] [id number], [place] [address]- 6748 Feb, [facility] [address] [facility] [id number] [place] [id number] Jan, [facility] [place] [facility] [address] [facility] [id number], [place] [address]- 5125 Jan, [facility] [place] [facility] [address] [facility] [id number], [place] [address]- 4522 Jan, [facility] [place] [facility] [address] [facility] [id number], [place] [address]- 9144 Jan, [facility] [place] [facility] [address] [facility] [id number], [place] [address]- 4482 Jan, [facility] [place] [facility] [address] [id number], [place] [address]- 5298 Jan, [facility] [address] [id number] [place] [id number] Jan, [facility] [place] [facility] [address] [id number] [place] [address]- 4512 Jan, [facility] [place] [facility] [address] [facility] [id number] [place] [address]- 1459 Jan, [facility] [place] [facility] [address] [facility] [id number] [place] [address]- 6622 Jan, [facility] [address] [id number] [place] [id number] Jan, [facility] [address] [id number] [place] [id number] Jan, [facility] [place] [facility] [address] [facility] [id number] [place] [address]- 6509 Jan, [facility] [place] [facility] [address] [facility] [id number], [place] [address]- 0008 Jan, [facility] [address] [id number] [place] [id number] Jan, [facility] [address] [id number] [place] [id number] Jan, [facility] [place] [facility] [address] [facility] [id number], [place] [address]- 1059 Jan, [facility] [place] [facility] [address] [facility] [id number], [place] [address]- 3612 Jan, [facility] [place] [facility] [address] [facility] [id number], [place] [address]- 3417 Jan, [facility] [address] [id number] [place] [id number] December, [facility] [place] [facility] [address] [facility] [id number] [place] [address]- 3420 December, [facility] [place] [facility] [address] [facility] [id number], [place] [address]- 8684 December, [facility] [address] [id number] [place] [id number] December, [facility] [place] [facility] [address] [id number], [place] [address]- 4806 December, [facility] [address] [facility] [id number] [place] [id number] December, [facility] [place] [facility] [address] [facility] [id number], [place] [address]- 4046 December, [facility] [address] [facility] [id number] [place] [id number] December, [facility] [place] [facility] [address] [facility] [id number] [place] [address]- 6586 December, [facility] [address] [facility] [id number], [place] [id number] Nov, [facility] [place] [facility] [address] [facility] [id number], [place] [address]- 4086 Nov, [facility] [address] [facility] [id number], [place] [id number] Nov, [facility] [place] [facility] [address] [facility] [id number], [place] [address]- 9468 Nov, [facility] [place] [facility] [address] [facility] [id number], [place] [address]- 9262 Nov, [facility] [place] [facility] [address] [facility] [id number], [place] [address]- 0726 Nov, [facility] [place] [facility] [address] [facility] [id number], [place] [address]- 6908 Oct, [facility] [address] [facility] [id number] [place] [id number] Oct, [facility] [place] [facility] [address] [facility] [id number] [place] [address]- 1646 Oct, [facility] [address] [facility] [id number], [place] 845708329 Oct, [facility] [place] [facility] [address] [facility] [id number], [place] [address]- 0914 Oct, [facility] [address] [id number] [place] [id number] Sep, [facility] [place] [facility] [address] [facility] [id number] [place] [address]- 0956 Sep, [facility] [address] [id number] [place] [id number] Aug, [facility] [place] [facility] [address] [facility] [id number], [place] [address]- 3629 Aug, [facility] [address] [id number] [place] [id number] Aug, [facility] [place] [facility] [address] [facility] [id number] [place] [address]- 0449 Aug, [facility] [place] [facility] [address] [facility] [id number], [place] 534100- 7169 Aug, [facility] [address] [facility] [id number] [place] [id number] Aug, [facility] [place] [facility] [address] [facility] [id number], [place] [address]- 4368 Aug, [facility] [place] [facility] [address] [facility] [id number], [place] 737332- 7754 Aug, [facility] [address] [facility] [id number], [place] [id number] Aug, [facility] [place] [facility] [address] [facility] [id number], [place] [address]- 2449 Aug, [facility] [address] [facility] [id number], [place] 809798340 Jul, [facility] [place] [facility] [address] [facility] [id number], [place] [address]- 1263 Jul, [facility] [address] [facility] [id number], [place] [id number] Jul, [facility] [place] [facility] [address] [facility] [id number], [place] [address]- 3475 Jul, [facility] [address] [facility] [id number], [place] [id number] Jul, [facility] [address] [facility] [id number], [place] [address]- 2546 Jul, [facility] [address] [id number] [place] [id number] Jul, [facility] [address] [facility] [id number], [place] [address]- 9316 Jul, [facility] [address] [id number][place] [id number] Jun, [facility] [address] [facility] [id number], [place] [address] Jun, [facility] [address] [id number][place] [id number] Jun, [facility] [address] [facility] [id number], [place] [address] Jun, [facility] [address] [id number], [place] [address] Jun, [facility] [address] [facility] [id number], [place] [address] Jun, [facility] [address] [id number][place] [id number] Apr, [facility] [address] [id number][place] [id number] Mar, [facility] [address] [id number] [place] [id number] Mar, [facility] [address] [id number][place] [id number] Feb, [facility] [address] [id number] [place] [id number] Feb, [facility] [address] [id number] [place] [id number] Feb, [facility] [address] [id number] [place] [id number] December, [facility] [address] [id number] [place] [id number] December, [facility] [address] [id number], [place] [address] December, [facility] [address] [id number] [place] [id number] December, [facility] [address] [id number] [place] [id number] December, [facility] [address] [id number] [place] [id number] Nov, [facility] [address] [id number] [place] [id number] Nov, [facility] [address] [id number] [place] [id number] Nov, [facility] [address] [id number] [place] [id number] Oct, [facility] [address] [id number] [place] [id number] Sep, [facility] [address] [id number] [place] [id number] Aug, [facility] [address] [facility] [id number], [place] [address] Aug, [facility] [address] [id number] [place] [id number] Aug, [facility] [address] [id number] [place] [id number] Jul, [facility] [address] [facility] [id number], [place] [address] Jul, [facility] [address] [id number][place] [id number] Jul, [facility] [address] [facility] [id number][place] [address] Jul, [facility] [address] [id number][place] [id number] Jun, [facility] [place] [facility] [address] [facility] [id number], [place] [address] Jun, [facility] [address] [id number][place] [id number] May, [facility] [place] [facility] [address] [id number] [place] [address] May, [facility] [address] [id number] [place] [id number] May, [facility] [address] [facility] [id number], [place] [address] May, [facility] [address] [id number] [place] [id number] Apr, [facility] [address] [id number] [place] [id number] Apr, [facility] [address] [id number] [place] [id number] Mar, [facility] [address] [id number] [place] [id number] Mar, [facility] [address] [id number] [place] [id number] Feb, [facility] [address] [id number] [place] [id number] Feb, [facility] [address] [id number] [place] [id number] Jan, [facility] [address] [id number] [place] [id number] Jan, [facility] [address] [id number] [place] [id number] Jan, [facility] [address] [id number] [place] [id number] Jan, [facility] [address] [id number] [place] [id number] December, [facility] [address] [id number] [place] [id number] December, [facility] [place] [facility] [address] [facility] [id number], [place] [address] Nov, [facility] [address] [id number] [place] [id number] Nov, [facility] [address] [id number][place] [id number] Nov, [facility] [address] [id number] [place] [id number] Nov, [facility] [address] [id number] [place] [id number] Nov, [facility] [address] [facility] [id number], [place] [address] Oct, [facility] [address] [facility] [id number], [place] [address] Oct, [facility] [address] [id number] [place] [id number] Oct, [facility] [address] [id number] [place] [id number] Oct, [facility] [address] [id number] [place] [id number] Oct, [facility] [address] [id number] [place] [id number] Oct, [facility] [address] [id number] [place] [id number] Oct, [facility] [address] [id number] [place] [id number] Oct, [facility] [address] [id number] [place] [id number] Oct, [facility] [address] [facility] [id number] [place] [address] Oct, [facility] [address] [id number] [place] [id number] Sep, [facility] [address] [id number] [place] [id number] Sep, [facility] [address] [id number] [place] [id number] Aug, [facility] [address] [id number] [place] [id number] Aug, [facility] [address] [facility] [id number] [address] Jul, [facility] [place] [address] [facility] [id number] [address] 30 Jul, 2011 [facility] [id number] [address] Jul, [facility] [id number] [address] Jul, [facility] [id number] [address] Jul, [facility] [address] [facility] [id number][place] [address] Jul, [facility] [id number] [place] [address] Jul, [facility] [id number], [place] [address] Jul, [facility] [id number], [place] [address] Jul, [facility] [id number], [place] [address] Jul, [facility] [id number], [place] [address] Jul, [facility] [id number], [place] [address] 16 Jul, 2011 [facility] [id number], [place] [address] 13 Jul, 2011 [facility] [address] [id number] [address] Jul, 2011 IMMUNIZATIONS No Known Immunizations SOCIAL HISTORY Never Assessed REASON FOR VISIT Diabetes f/u Chad GRIMALDO PLAN OF CARE Activity Details Follow Up 1 week Reason:chronic pain VITAL SIGNS Height 69 in 2017-09-03 Weight 224.2 lbs 2017-09-03 Temperature 98.1 degrees Fahrenheit 2017-09-03 Heart Rate 88 bpm 2017-09-03 Respiratory Rate 18 2017-09-03 BMI 33.10 kg/m2 2017-09-03 Blood pressure systolic 132 mmHg 2017-09-03 Blood pressure diastolic 78 mmHg 2017-09-03 MEDICATIONS Medication Instructions Dosage Frequency Start Date End Date Duration Status Megestrol Acetate 40 mg Orally Once a day at HS 1 tablet Active Atorvastatin Calcium 40 MG TAKE ONE (1) TABLET BY MOUTH DAILY... Active Baclofen 20 MG TAKE ONE (1) TABLET BY MOUTH TWICE (2) DAILY IN THE MORNING AND EVENING... Active Culturelle Digestive Health - Orally 2 times a day (may increase to 3 tabs per day if 2 is not effect) 1 capsule Aug, Aug, 0 days Active Folic Acid 1 MG Orally Once a day 1 tablet 24h Jul, Active UltiCare Micro Pen [place] 32G X 4 MM USE TWICE DAILY. Active ProAir HFA 108 (90 Base) mcg/act Inhalation 4 times a day 2 puffs as needed 6h Active Nitroglycerin 0.4 MG Active Mupirocin 2 % Externally Three times a day 1 application to affected area 8h 14 days Not-Taking Escitalopram Oxalate 10 MG TAKE ONE (1) TABLET BY MOUTH DAILY... Active Prilosec 20 MG TAKE ONE (1) CAPSULE BY MOUTH ONCE DAILY... Active Lasix 20 mg Orally Once a day 1 tablet 24h Active Victoza 18 MG/3ML INJECT (1.8) MG SUBCUTANEOUSLY ONCE DAILY IN THE MORNING.... (DOES HIMSELF) Active Levemir Flexpen 100 UNIT/ML Subcutaneous 2 times a day 46 units 12h Active Lancets - subcutaneously 3 times a day as directed 8h Jun, Active NovoLog Flexpen 100 UNIT/ML Subcutaneous 3 times a day before meals (if bs less than 130 then hold ) 5 units Aug, 0 days Active Tramadol HCl 50 MG Orally every 6 hrs 1 tablet as needed 6h Active Carvedilol 3.125 MG Orally 2 times a day 1/2 tablet in am and in pm 12h Active Triamcinolone Acetonide 0.5 % Externally Twice a day 1 application to affected area 12h 15 Oct, 2016 Not-Taking Walker - Rolator walker with seat and hand brakes Jan, Active Domingo Contour Test - TEST BLOOD SUGAR (4) TIMES DAILY. Active Aspirin Adult Low Strength 81 MG Orally Once a day 1 tablet 24h Active Cetirizine HCl 10 mg Orally Once a day 1 tablet as needed 24h Nov, Active RESULTS No Results PROCEDURES Procedure Date Ordered Result Body Site LAB NOT BILLED BY [facility] Sep 03, 2017 VENIPUNCT, ROUTINE* Sep 03, 2017 [facility] VISIT ESTABLISHED PATIENT Sep 03, 2017 INSTRUCTIONS MEDICATIONS ADMINISTERED No Known [...] in the future. Medical History 05/26/17 noted, correction has ended and they feel he is [...] artery ([facility]) 10/2011 Surgical History cataract-lens implants-bilateral ([place]) 05/2014 Surgical History Left eye retinal eye repair ([facility]) 06/2014 Surgical History amputation, toe-right third toe ([facility]) 2013 Surgical History Right eye retinal eye repair ([facility]) 09/2014 Surgical History heart cath with [...]
--- OUTSIDE RECORDS SUMMARY | 2018-06-20 10:22 | XMS REPORT ---
Author Author SATINDER GOOD [facility] Address [address] [place] [address] Care Team Providers Care Eyeglass Cutter Name Role Phone SATINDER GOOD Unavailable PROBLEMS Type Condition ICD9-CM Code ISF11-GX Code Onset Dates Condition Status SNOMED Code Problem S/P coronary artery stent placement Z95.5 Active 914861076 Problem Type 2 diabetes mellitus with diabetic peripheral angiopathy without gangrene E11.51 Active 680695462 Problem Depression F32.9 Active 58774858 Problem Type 2 diabetes mellitus with diabetic neuropathy E11.40 Active 36581050 Problem Hyperlipidemia, unspecified hyperlipidemia E78.5 Active 74098757 Problem Coronary artery disease involving habematolel coronary artery of habematolel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 Active 4148742975071 Problem Peripheral vascular disease I73.9 Active 383108011 Problem Chronic obstructive pulmonary disease, unspecified COPD type J44.9 Active 15280916 Problem Osteomyelitis of right foot, unspecified chronicity M86.9 Active 29919839 Problem CKD (chronic kidney disease) stage 3, GFR 30-59 ml/min N18.3 Active 626317534 Problem Type 2 diabetes mellitus with diabetic retinopathy, macular edema presence unspecified, with unspecified retinopathy severity E11.319 Active 25136031 Problem GERD without esophagitis K21.9 Active 483195244 Problem Bilateral low back pain without sciatica M54.5 Active 042814651 Problem Mixed hyperlipidemia E78.2 Active 216057824 Problem Frequent falls R29.6 Active 351113650 Problem Chronic kidney disease, unspecified N18.9 Active 721005461 Problem Other chronic pain G89.29 Active 06502122 Problem Chronic diarrhea K52.9 Active 615886109 Problem Hypercholesterolemia E78.0 Active 59348312 Problem 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 Active 749792998 Problem 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 Active 095304919 Problem Obesity (BMI 30.0-34.9) E66.9 Active 285462499377625 Problem Comprehensive diabetic foot examination, type 2 DM, encounter for E11.9 Active 33907666 Problem Uses walker Z99.89 Active 392117850 Problem Aphasia R47.01 Active 42637404 Problem Insulin long-term use Z79.4 Active 417037754 Problem Fatigue, unspecified type R53.83 Active 18758520 Problem Type 2 diabetes mellitus with foot ulcer E11.621 Active 522250186 Problem Pain in left shoulder M25.512 Active 02403677 Problem Type 2 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 Active 608387516 Problem Diabetes type 2, uncontrolled E11.65 Active 948687993 Problem Personal history of carotid stenosis Z86.79 Active 718306577 Problem Essential hypertension I10 Active 37056422 Problem CKD (chronic kidney disease), stage 3 (moderate) N18.3 Active 404832857 Problem Chronic pain syndrome G89.4 Active 909532959 Problem High risk medication use Z79.899 Active 408591998 ALLERGIES No Information ENCOUNTERS Encounter Location Date Diagnosis [address] [id number] Oct, [address] [id number] Oct, [address] [id number] Oct, Other chronic pain G89.[address] [id number] Sep, Other chronic pain G89.[address] [id number] Aug, CKD (chronic kidney disease), stage 3 (moderate) N18.3 ; Anemia, unspecified type D64.9 and Dilated pore of Ly L70.[address] [id number] Aug, Other chronic pain G89.29 ; Pain in left shoulder M25.512 ; High risk medication use Z79.899 ; Uses walker Z99.89 ; Diabetes type 2, uncontrolled E11.65 and Depression F32.9 [place] [id number] [place] [address] [id number] Aug, Chronic diarrhea K52.9 [address] [place] [address] [id number] Aug, Chronic diarrhea K52.9 ; Type 2 diabetes mellitus with diabetic neuropathy E11.40 ; Diabetes type 2, uncontrolled E11.65 ; Insulin long-term use Z79.4 ; Chronic obstructive pulmonary disease, unspecified COPD type J44.9 ; Chronic pain syndrome G89.4 ; Pain in left shoulder M25.512 ; Uses walker Z99.89 ; S/P coronary artery stent placement Z95.5 ; Mixed hyperlipidemia E78.2 and Essential hypertension I10 [place] [id number] [place] [address] [id number] Aug, [place] [id number] [place] [address] [id number] Jul, Diabetes type 2, uncontrolled E11.65 [place] [id number] [place] [address] [id number] Jul, Diabetes type 2, uncontrolled E11.65 ; Type 2 diabetes mellitus with diabetic neuropathy E11.40 ; Insulin long-term use Z79.4 and Chronic obstructive pulmonary disease, unspecified COPD type J44.9 [place] [id number] [place] [address] [id number] Jun, [place] [id number] [place] [address] [id number] Jun, Essential hypertension I10 [place] [id number] [place] [address] [id number] Jun, Essential hypertension I10 [place] [id number] [place] [address] [id number] Jun, Type 2 diabetes mellitus with diabetic neuropathy E11.40 ; Type 2 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 ; S/P coronary artery stent placement Z95.5 ; Obesity (BMI 30.0-34.9) E66.9 ; Mixed hyperlipidemia E78.2 ; Frequent falls R29.6 ; Chronic obstructive pulmonary disease, unspecified COPD type J44.9 ; Essential hypertension I10 ; Insulin long-term use Z79.4 and High risk medication use Z79.[id number] [place] [address] [id number] May, Diarrhea, unspecified type R19.7 ; Type 2 diabetes mellitus with diabetic neuropathy E11.40 ; Chronic obstructive pulmonary disease, unspecified COPD type J44.9 ; S/P coronary artery stent placement Z95.5 ; High risk medication use Z79.899 ; Essential hypertension I10 ; Encounter for administration of vaccine Z23 and Encounter for immunization Z23 [address] [id number] [id number] May, Chronic obstructive pulmonary disease, unspecified COPD type J44.9 [address] [place] [address] [id number] May, Type 2 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 ; Encounter for immunization Z23 ; Needs flu shot Z23 ; Comprehensive diabetic foot examination, type 2 DM, encounter for E11.9 and Obesity (BMI 30.0-34.9) E66.9 [address] [place] [address] [id number] May, [place] [id number] [place] [address] [id number] Apr, [place] [id number] [place] [address] [id number] Apr, Essential hypertension I10 and Aphasia R47.[address] [place] [address] [id number] Apr, [place] [id number] [place] [address] [id number] Apr, Type 2 diabetes mellitus with diabetic neuropathy E11.40 ; Frequent falls R29.6 ; Essential hypertension I10 ; S/P coronary artery stent placement Z95.5 ; High risk medication use Z79.899 ; Hyperlipidemia, unspecified hyperlipidemia E78.5 ; CKD (chronic kidney disease), stage 3 (moderate) N18.3 ; Pain in left shoulder M25.512 and Chronic obstructive pulmonary disease, unspecified COPD type J44.9 [address] [place] [address] [id number] Mar, [id number] [place] [address] [id number] Mar, Type 2 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 ; Leg wound, left, initial encounter S81.802A ; Hx of shoulder surgery Z98.890 ; Acute pain of left shoulder M25.512 and Fall, initial encounter W19.XXXA [facility] [id number] [place] [address], [place] [id number] Feb, Follow-up exam Z09 ; Hx of shoulder surgery Z98.890 ; Acute pain of left shoulder M25.512 ; Essential hypertension I10 and Leg wound, left, initial encounter S81.802A [facility] [address] [id number] [place] [id number] Feb, [facility] [id number] [place] [address], [place] [id number] Feb, [facility] [id number] [place] [address] [id number] Feb, Chronic obstructive pulmonary disease, unspecified COPD type J44.9 [facility] [id number] [place] [address] [id number] Feb, [facility] [id number] [place] [address], [place] [id number] Jan, Generalized weakness R53.1 ; Exertional shortness of breath R06.02 and Fungal rash of trunk B36.9 [facility] [id number] [place] [address] [id number] Jan, [facility] [id number] [place] [address] [id number] Jan, [facility] [id number] [place] [address] [id number] Jan, [facility] [id number] [place] [address] [id number] Jan, [facility] [id number] [place] [address] [id number] December, High risk medication use Z79.899 [facility] [id number] [place] [address] [id number] December, Type 2 diabetes mellitus with diabetic neuropathy E11.40 [place] [address] [address] [facility] [id number] [id number] December, High risk medication use Z79.899 [address] [id number] Nov, Diabetes type 2, uncontrolled E11.65 [address] [id number] Nov, Medicare annual wellness visit, initial Z00.00 ; Bilateral low back pain without sciatica M54.5 ; Pain in left shoulder M25.512 ; Chronic pain syndrome G89.4 ; Type 2 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 ; High risk medication use Z79.899 and Encounter for immunization Z23 [address] [id number] Nov, Type 2 diabetes mellitus with diabetic neuropathy E11.40 ; Coronary artery disease involving habematolel coronary artery of habematolel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 and CKD (chronic kidney disease), stage 3 (moderate) N18.3 [address] [place] [address] [id number] Oct, Type 2 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 ; Chronic pain syndrome G89.4 ; Chronic obstructive pulmonary disease, unspecified COPD type J44.9 ; Chronic kidney disease, unspecified N18.9 and Rash R21 [address] [id number] [id number] Oct, Type 2 diabetes mellitus with diabetic neuropathy E11.[address] [id number] [id number] Oct, Rash R21 and Impetigo L01.[id number] [place] [address] [id number] Oct, Chronic pain syndrome G89.[address] [id number] [id number] Oct, [address] [id number] Sep, Sebaceous cyst L72.3 [place] [id number] [place] [address] [id number] Sep, Sebaceous cyst L72.3 [place] [address] [id number] [place] [address] [id number] Sep, Chronic pain syndrome G89.4 ; Pain in left shoulder M25.512 and Effusion of olecranon bursa, left M25.422 [facility] [address] [id number] [address] Aug, [facility] [id number] [place] [address] [id number] Aug, [place] [id number] [place] [address] [id number] Aug, Mixed hyperlipidemia E78.2 and Chronic kidney disease, unspecified N18.9 [place] [id number] [place] [address] [id number] Jul, Type 2 diabetes mellitus with diabetic neuropathy E11.40 ; Essential hypertension I10 and S/P coronary artery stent placement Z95.5 [place] [id number] [place] [address] [id number] Jul, 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 [place] [id number] [place] [address] [id number] Jul, Diabetes type 2, uncontrolled E11.65 ; Essential hypertension I10 and 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 [address] [place] [address] [id number] Jul, [place] [id number] [place] [address] [id number] Jul, [address] [place] [address] [id number] Jul, [place] [id number] [place] [address] [id number] Jul, Chronic obstructive pulmonary disease, unspecified COPD type J44.9 [address] [place] [address] [id number] Jun, CKD (chronic kidney disease), stage 3 (moderate) N18.3 and Anemia, unspecified type D64.9 [address] [place] [address] [id number] Jun, Type 2 diabetes mellitus with diabetic neuropathy E11.40 ; Decreased GFR R94.4 ; CKD (chronic kidney disease), stage 3 (moderate) N18.3 and Decreased hemoglobin R71.0 [place] [id number] [place] [address] [id number] Jun, CKD (chronic kidney disease), stage 3 (moderate) N18.3 and Anemia, unspecified type D64.9 [address] [place] [address] [id number] Jun, Type 2 diabetes mellitus with diabetic neuropathy E11.40 ; Decreased GFR R94.4 and CKD (chronic kidney disease), stage 3 (moderate) N18.3 [address] [place] [address] [id number] Jun, Type 2 diabetes mellitus with diabetic neuropathy E11.40 and Essential hypertension I10 [place] [id number] [place] [address] [id number] Jun, [place] [id number] [place] [address] [id number] Jun, [place] [id number] [place] [address] [id number] Jun, Type 2 diabetes mellitus with diabetic neuropathy E11.40 ; S/P coronary artery stent placement Z95.5 ; Chronic obstructive pulmonary disease, unspecified COPD type J44.9 ; Essential hypertension I10 ; GERD without esophagitis K21.9 ; Peripheral vascular disease I73.9 ; Mixed hyperlipidemia E78.2 and Hospital discharge follow-up Z09 [address] [place] [address] [id number] Jun, [place] [id number] [place] [address] [id number] May, Depression F32.9 and Hyperlipidemia, unspecified hyperlipidemia E78.5 [facility] [id number] [place] [address] 22546- 6804 May, [place] [id number] [place] [address] [id number] May, [place] [id number] [id number] May, Essential hypertension I10 ; Chronic pain syndrome G89.4 ; Pain in left shoulder M25.512 ; High risk medication use Z79.899 ; Chronic obstructive pulmonary disease, unspecified COPD type J44.9 ; S/P coronary artery stent placement Z95.5 ; Personal history of carotid stenosis Z86.79 ; Hyperlipidemia, unspecified hyperlipidemia E78.5 ; Decreased GFR R94.4 and Type 2 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 [address] [place] [address] [id number] May, Hemoglobin decreased R71.0 and Decreased GFR R94.4 [place] [id number] [place] [address] [id number] May, Hemoglobin decreased R71.0 and Decreased GFR R94.4 [address] [place] [address] [id number] May, [place] [id number] [place] [address] [id number] May, [address] [place] [address] [id number] Apr, [place] [id number] [place] [address] [id number] Apr, Type 2 diabetes mellitus with foot [...] unspecified hyperlipidemia E78.5 and Essential hypertension I10 [address] [place] [address] [id number] Apr, [address] [place] [address] [id number] Mar, [place] [id number] [id number] Mar, [facility] [address] [place] [address]79- [phone] Mar, [facility] [id number] [place] [address] [id number] Feb, [facility] [id number] [place] [address] [id number] Feb, [facility] [id number] [place] [address] [id number] Feb, [facility] [id number] [place] [address] [id number] Jan, Type 2 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 ; Hypercholesterolemia E78.0 ; Chronic pain syndrome G89.4 ; Pain in left shoulder M25.512 and High risk medication use Z79.899 [facility] [id number] [place] [address] [id number] Jan, [facility] [id number] [place] [address] [id number] Jan, [facility] [id number] [place] [address] [id number] December, [facility] [id number] [place] [address] [id number] December, [facility] [address]100[place] [address] December, Diabetes type 2, uncontrolled E11.65 ; Type 2 diabetes mellitus with diabetic neuropathy E11.40 ; Peripheral vascular disease I73.9 ; 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 and 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 [facility] [id number], [place] [id number] Nov, [facility] [id number] [place] [address] [id number] Nov, [facility] [id number], [place] [id number] Nov, [facility] [id number] [place] [address] [id number] Nov, Right hip pain M25.551 [facility] [address] [facility] [id number], [place] [address] 2546 Nov, [facility] [address] [facility] [id number], [place] [address]- [address] Nov, [facility] [id number], [place] [id number] Nov, Diabetes with neurological manifestations, type II or unspecified type, 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.60 [facility] [id number] [place] [address] [id number] Nov, [facility] [id number] [place] [address] [id number] Nov, [facility] [id number] [place] [address] [id number] Oct, Diabetes type 2, uncontrolled E11.65 ; Type 2 diabetes mellitus with diabetic neuropathy, unspecified E11.40 and Low back pain M54.5 [facility] [address] [id number] [id number] Oct, [facility] [id number] [place] [address] [id number] Oct, [facility] [address] [id number] [place] [address] [id number] Oct, [facility] [id number], [place] [id number] Sep, [facility] [id number], [place] [id number] Sep, [facility] [address]65100[place], [place] [address] 25[address] Sep, [facility] [id number], [place] [id number] Sep, [facility] [address] [id number] [id number] Sep, [facility] [id number], [place] [id number] Aug, 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 [facility] [address] [id number], [place] [id number] Aug, [facility] [address] [id number], [place] [id number] Aug, Allergic rhinitis due to pollen J30.1 [facility] [id number] [id number] Jul, [facility] [address] [id number], [place] [id number] Jul, [facility] [id number] [place] [address] [id number] Jul, [facility] [id number], [place] [id number] Jun, [facility] [id number], [place] [id number] Jun, Thumb tendonitis M77.8 and Ringing in ear, bilateral H93.13 [facility] [id number] [id number] Jun, [facility] [address] [facility] [id number], [place] [id number] May, [place] [address] [place] [id number] [place] [address] 59363- 0905 May, [facility] [id number] [place] [address] 38898- 1663 May, Pre-op evaluation Z01.818 ; Encounter for immunization Z23 ; Type 2 diabetes mellitus with diabetic peripheral angiopathy without gangrene E11.51 ; Insulin long-term use Z79.4 ; Type 2 diabetes mellitus with foot ulcer E11.621 ; Peripheral vascular disease I73.9 ; Coronary artery disease involving habematolel coronary artery of habematolel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 ; S/P coronary artery stent placement Z95.5 ; Osteomyelitis of right foot, unspecified chronicity M86.9 and Chronic obstructive pulmonary disease, unspecified COPD type J44.9 [facility] [id number] [place] [address] 75083210- 2487 May, [facility] [id number] [place] [address] [id number] May, [facility] [id number] [place] [address] [id number] May, Diabetes type 2, uncontrolled E11.65 ; Encounter for immunization Z23 ; Osteopenia M85.80 and Allergic rhinitis due to pollen J30.1 [facility] [id number] [place] [address] [id number] May, Lumbago 724.2 [place] [address] [place] [address] [id number] [place] [address] [id number] Apr, [facility] [id number] [place] [address] [phone] Apr, [facility] [id number] [place] [address] [id number] Apr, [facility] [id number] [place] [address] [id number] Apr, [facility] [id number] [place] [address] 11521 2546 Mar, [facility] [id number] [place] [address] [id number] Mar, [facility] [id number] [place] [address] [id number] Mar, [facility] [id number] [place] [address] [id number] Mar, [facility] [id number] [place] [address] [id number] Mar, [facility] [id number] [place] [address] 17620- 5100 Mar, [facility] [id number] [place] [address] [id number] Mar, [facility] [id number] [place] [address] [id number] Mar, Diabetes with neurological manifestations, type II or unspecified type, 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.60 and Severe obesity (BMI 35.0-35.9 with comorbidity) 278.01 [facility] [id number], [place] [id number] Mar, [facility] [address]00565100[place], [place] [address] 25[address] Mar, [facility] [address]00565100[place], [place] [address]- 2546 Feb, [facility] [address] [id number], [place] [id number] Feb, [facility] [address] [id number], [place] [id number] Feb, [facility] [address] [id number][place] [id number] Feb, Diabetes with neurological manifestations, type II or unspecified type, 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.60 [facility] [id number], [place] [id number] Feb, [facility] [id number] [address] Feb, [facility] [address] [id number][place] [id number] Feb, [facility] [id number], [place] 607489922 Feb, Follow up V67.9 ; Diabetes with neurological manifestations, type II or unspecified type, 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.60 and Congestive heart failure 428.0 [facility] [id number], [place] [id number] Jan, [facility] [id number], [place] [address]69[address]290 Jan, [facility] [address] [id number], [place] [address]38648958 Jan, [facility] [id number], [place] 400458734 December, Otitis media with effusion 381.4 ; Left arm numbness 782.0 and Osteoporosis 733.00 [facility] [address] [id number], [place] [address]44[address]246 December, [facility] [address] [id number], [place] 531[address]229 Nov, [facility] [address] [id number], [place] 97[address]40743 Nov, Serous otitis media 381.4 and Lumbago 724.2 [facility] [place] [facility] [address]00565100[place], [place] [address] 14 Nov, 2014 [facility] [place] [facility] [address]00565100[place], [place] [address]- 2546 Nov, [facility] [id number], [place] [address]06697 Oct, [facility] [place] [facility] [address]00565100[place], [place] [address]- [address] Oct, [facility] [id number], [place] 835991390 Oct, [facility] [place] [facility] [address]00565100[place], [place] [address]- 1446 Oct, [facility] [id number], [place] 186511638 Oct, [facility] [place] [facility] [address]00565100[place], [place] [address]- 8836 Oct, [facility] [place] [facility] [id number], [place] [address]- [address] Sep, [facility] [place] [facility] [address] [id number], [place] [address] 7716 Sep, [facility] [address] [id number], [place] 515377910 Sep, [facility] [place] [facility] [address] [id number], [place] [address]- 2546 Sep, [facility] [address] [id number], [place] 230187877 Aug, [facility] [place] [facility] [address] [id number], [place] [address]- 2546 Aug, [facility] [address] [id number], [place] 630551208 Aug, [facility] [address] [id number] [place] [address]- [address] Aug, [facility] [address] [id number] [place] 4157[address] Jul, [facility] [address] [facility] [id number] [place] [address]- 1870 Jul, [facility] [address] [id number] [place] [id number] Jul, [facility] [place] [facility] [address] [id number] [place] [address]- 7727 Jul, [facility] [address] [id number] [place] [id number] Jul, [facility] [place] [facility] [address] [facility] [id number], [place] [address]- 8[address] Jul, [facility] [address] [id number], [place] [id number] Jun, [facility] [address] [facility] [id number], [place] [address]- 8760 Jun, [facility] [address] [id number], [place] 025966628 May, [facility] [place] [facility] [address] [facility] [id number], [place] [address]- 5914 May, [facility] [address] [id number], [place] 979702323 May, [facility] [place] [facility] [address] [facility] [id number], [place] [address]- 2895 May, [facility] [address] [id number] [place] [id number] May, [facility] [place] [facility] [address] [facility] [id number][place] [address]- [address] May, [facility] [address] [id number], [place] 304215058 May, [facility] [address] [id number], [place] 425937003 May, [facility] [place] [facility] [address] [facility] [id number] [place] [address]- 2565 May, [facility] [place] [facility] [address] [facility] [id number], [place] [address]- 6827 May, [facility] [address] [id number] [place] 635699703 May, [facility] [place] [facility] [address] [facility] [id number], [place] [address]- 8538 May, [facility] [place] [facility] [address] [facility] [id number] [address]- 6496 Apr, [facility] [address] [id number], [place] 455853897 Apr, [facility] [place] [facility] [address] [facility] [id number], [place] [address]- 3326 Apr, [facility] [address] [id number], [place] 876115000 Apr, [facility] [address] [id number], [place] 567693512 Apr, [facility] [place] [facility] [address] [facility] [id number], [place] [address]- 0336 Apr, [facility] [place] [facility] [address] [facility] [id number], [place] [address]- 5713 Apr, [facility] [address] [id number], [place] 540961396 Apr, [facility] [place] [facility] [address] [facility] [id number], [place] [address]- 4683 Apr, [facility] [address] [id number], [place] 433806151 Apr, [facility] [place] [facility] [address] [facility] [id number], [place] [address]- 4469 Apr, [facility] [address] [id number], [place] 940351306 Apr, [facility] [place] [facility] [address] [facility] [id number] [place] [address]- 8012 Apr, [facility] [address] [id number] [place] 969391552 Apr, [facility] [place] [facility] [address] [facility] [id number] [place] [address]- 5688 Apr, [facility] [address] [facility] [id number] [place] 329734605 Apr, [facility] [place] [facility] [address] [facility] [id number] [place] [address]- 1955 Apr, [facility] [address] [id number] [place] 834202131 Apr, [facility] [place] [facility] [address] [facility] [id number] [place] [address]- 2026 Apr, [facility] [address] [facility] [id number] [place] 791843232 Mar, [facility] [place] [facility] [address] [facility] [id number][place] [address]- 8300 Mar, [facility] [address] [id number] [place] [id number] Mar, [facility] [address] [id number] [place] 748779556 Mar, [facility] [place] [facility] [address] [facility] [id number], [place] [address]- 3209 Mar, [facility] [place] [facility] [address] [facility] [id number][place] [address]- 9770 Mar, [facility] [address] [id number] [place] 062623497 Mar, [facility] [place] [facility] [address] [facility] [id number], [place] [address]- 3450 Mar, [facility] [address] [id number] [place] 890370643 Mar, [facility] [place] [facility] [address] [facility] [id number] [place] [address]- 7498 Mar, [facility] [address] [id number] [place] 119847559 Mar, [facility] [place] [facility] [address] [id number] [place] [address]- 5793 Mar, [facility] [address] [id number] [place] 294054748 Mar, [facility] [place] [facility] [address] [id number] [place] [address]- 8961 Mar, [facility] [address] [id number] [place] 538841582 Mar, [facility] [place] [facility] [address] [id number] [place] [address]- 7292 Mar, [facility] [address] [id number] [place] 049743928 Mar, [facility] [place] [facility] [address] [facility] [id number] [place] [address]- 6495 Mar, [facility] [address] [id number], [place] 042517851 Mar, [facility] [place] [facility] [address] [facility] [id number] [place] [address]- 1787 Mar, [facility] [address] [id number] [place] 095100844 Feb, [facility] [place] [facility] [address] [facility] [id number] [place] [address]- 1863 Feb, [facility] [address] [id number] [place] 112292451 Feb, [facility] [place] [facility] [address] [id number] [place] [address]- 4151 Feb, [facility] [address] [id number] [place] 741439791 Feb, [facility] [place] [facility] [address] [id number] [place] [address]- 4579 Feb, [facility] [address] [id number] [place] 885191816 Feb, [facility] [place] [facility] [address] [id number] [place] [address]- 6123 Feb, [facility] [address] [id number] [place] 436905655 Feb, [facility] [place] [facility] [address] [facility] [id number] [place] [address]- 9394 Feb, [facility] [address] [id number] [place] 496184044 Feb, [facility] [place] [facility] [address] [id number] [place] [address]- 2756 Feb, [facility] [address] [id number] [place] 170564526 Feb, [facility] [place] [facility] [address] [facility] [id number] [place] [address]- 0001 Feb, [facility] [address] [id number] [place] 059943990 Feb, [facility] [place] [facility] [address] [facility] [id number], [place] [address]- 5305 Feb, [facility] [address] [id number] [place] 271445809 Feb, [facility] [place] [facility] [address] [facility] [id number] [place] [address]- 9671 Feb, [facility] [address] [id number] [place] 939602854 Feb, [facility] [address] [id number] [place] 386462188 Feb, [facility] [place] [facility] [address] [facility] [id number], [place] [address]- 8388 Feb, [facility] [place] [facility] [address] [facility] [id number] [place] [address]- 9261 Feb, [facility] [address] [id number] [place] 415462416 Feb, [facility] [place] [facility] [address] [facility] [id number] [place] [address]- 5760 Feb, [facility] [address] [id number] [place] 281325737 Feb, [facility] [place] [facility] [address] [id number] [place]- 8160 Feb, [facility] [address] [id number] [place] 685746651 Feb, [facility] [place] [facility] [address] [facility] [id number] [place] [address]- 8360 Feb, [facility] [address] [id number] [place] 625337542 Jan, [facility] [place] [facility] [address] [id number] [place] [address]- 8168 Jan, [facility] [place] [facility] [address] [facility] [id number], [place] [address]- 6207 Jan, [facility] [place] [facility] [address] [facility] [id number], [place] [address]- 4299 Jan, [facility] [place] [facility] [address] [facility] [id number][place] [address]- 1040 Jan, [facility] [place] [facility] [address] [facility] [id number], [place] [address]- 7673 Jan, [facility] [address] [facility] [id number], [place] 681047379 Jan, [facility] [place] [facility] [address] [facility] [id number], [place] [address]- 5110 Jan, [facility] [place] [facility] [address] [facility] [id number], [place] [address]- 1049 Jan, [facility] [place] [facility] [address] [facility] [id number], [place] [address]- 0000 Jan, [facility] [address] [id number] [place] 317805941 Jan, [facility] [address] [id number] [place] 743817727 Jan, [facility] [place] [facility] [address] [facility] [id number], [place] 72796803- 1288 Jan, [facility] [place] [facility] [address] [id number] [place] [address]- 5146 Jan, [facility] [address] [id number] [place] 702799329 Jan, [facility] [address] [id number] [place] 424857875 Jan, [facility] [place] [facility] [address] [id number] [place] [address]- 3206 Jan, [facility] [place] [facility] [address] [id number] [place] [address] 2546 Jan, [facility] [place] [facility] [address] [id number] [place] [address]- 0936 Jan, [facility] [address] [id number] [place] 470199765 December, [facility] [place] [facility] [address] [facility] [id number] [place] [address]- 6596 December, [facility] [place] [facility] [address] [facility] [id number], [place] [address]- 2836 December, [facility] [address] [id number] [place] 065062077 December, [facility] [place] [facility] [address] [facility] [id number], [place] [address]- 2166 December, [facility] [address] [id number] [place] 663548113 December, [facility] [place] [facility] [address] [id number] [place] [address]- 2546 December, [facility] [address] [id number] [place] 818920472 December, [facility] [place] [facility] [address] [facility] [id number] [place] [address]- 2546 December, [facility] [address] [id number] [place] 370301835 Nov, [facility] [place] [facility] [address] [id number], [place] [address]- 1986 Nov, [facility] [address] [facility] [id number], [place] 672795121 Nov, [facility] [place] [facility] [address] [facility] [id number], [place] [address]- 0777 Nov, [facility] [place] [facility] [address] [facility] [id number], [place] [address]- 3623 Nov, [facility] [place] [facility] [address] [facility] [id number], [place] [address]- 9205 Nov, [facility] [place] [facility] [address] [facility] [id number], [place] 445621- 6968 Oct, [facility] [address] [facility] [id number], [place] 417436923 Oct, [facility] [place] [facility] [address]00565100[place], [place] [address]- 9087 Oct, [facility] [address] [facility] [id number], [place] 420421445 Oct, [facility] [place] [facility] [address] [facility] [id number], [place] [address]- 7447 Oct, [facility] [address] [facility] [id number], [place] 080531289 Sep, [facility] [place] [facility] [address] [facility] [id number], [place] [address]- 2828 Sep, [facility] [address] [facility] [id number], [place] 875897781 Aug, [facility] [place] [facility] [address] [facility] [id number], [place] [address]- 5096 Aug, [facility] [address] [facility] [id number], [place] 941655622 Aug, [facility] [place] [facility] [address] [facility] [id number], [place] [address]- 8893 Aug, [facility] [place] [facility] [address] [facility] [id number], [place] [address]- 8901 Aug, [facility] [address] [id number], [place] 900881564 Aug, [facility] [place] [facility] [address] [facility] [id number], [place] [address]- 7366 Aug, [facility] [place] [facility] [address] [facility] [id number], [place] [address]- 1106 Aug, [facility] [address] [facility] [id number], [place] 159799776 Aug, [facility] [place] [facility] [address] [facility] [id number], [place] [address]- 5116 Aug, [facility] [address] [facility] [id number], [place] 588202084 Jul, [facility] [place] [facility] [address]00565100[place], [place] [address]- 7227 Jul, [facility] [address] [id number], [place] 296061699 Jul, [facility] [place] [facility] [address]00565100[place], [place] [address]- 8017 Jul, [facility] [address] [facility] [id number], [place] 269520859 Jul, [facility] [place] [facility] [address]00565100[place], [place] [address]- 6259 Jul, [facility] [address] [facility] [id number], [place] 774523477 Jul, [facility] [place] [facility] [address] [id number], [place] [address]- 4876 Jul, [facility] [address] [facility] [id number], [place] 678102888 Jun, [facility] [place] [facility] [address] [facility] [id number], [place] [address]- 2556 Jun, [facility] [address] [facility] [id number], [place] 528096713 Jun, [facility] [place] [facility] [address]00565100[place], [place] [address]- 0859 Jun, [facility] [address] [facility] [id number][place] [address]- 2546 Jun, [facility] [address] [facility] [id number], [place] [address]- 2546 Jun, [facility] [address] [id number] [place] 534947166 Apr, [facility] [place] [address] [id number] [place] 921875946 Mar, [facility] [place] [address] [id number] [place] 957628450 Mar, [facility] [place] [address] [id number] [place] 955774036 Feb, [facility] [place] [address] [id number] [place] 942975561 Feb, [facility] [address] [id number] [place] 903686415 Feb, [facility] [address] [id number] [place] 236032845 December, [facility] [address] [id number] [place] 433941297 December, [facility] [address]00565100[place], [place] [address]- 2546 December, [facility] [place] [address] [id number] [place] 912210744 December, [facility] [address] [id number] [place] 172168148 December, [facility] [address] [id number] [place] 273957270 Nov, [facility] [address] [id number] [place] 420168751 Nov, [facility] [place] [address] [id number] [place] 346678783 Nov, [facility] [address] [id number] [place] 123592612 Oct, [facility] [address] [id number] [place] 163016983 Sep, [facility] [place] [address] [id number], [place] 331104890 Aug, [facility] [address] [facility] [id number], [place] [address]- 2546 Aug, [facility] [place] [address] [id number], [place] 003613142 Aug, [facility] [address] [id number], [place] 044917900 Jul, [facility] [address] [facility] [id number], [place] [address]- 2546 Jul, [facility] [address] [id number], [place] 716070502 Jul, [facility] [address] [facility] [id number], [place] [address] 254 Jul, [facility] [address] [id number], [place] [id number] Jun, [facility] [address]00565100[place], [place] [address] Jun, [facility] [place] [address] [id number][place] [id number] May, [facility] [address] [facility] [id number], [place] [address] May, [facility] [place] [address] [id number][place] [id number] May, [facility] [address] [facility] [id number], [place] [address] May, [facility] [address] [id number][place] [id number] Apr, [facility] [place] [address] [id number][place] [id number] Apr, [facility] [address] [id number][place] [id number] Mar, [facility] [address] [id number][place] [id number] Mar, [facility] [place] [address] [id number] [place] [id number] Feb, [facility] [place] [address] [id number] [place] [id number] Feb, [facility] [place] [address] [id number] [place] [id number] Jan, [facility] [place] [address] [id number] [place] [id number] Jan, [facility] [place] [address] [id number] [place] [id number] Jan, [facility] [place] [address] [id number] [place] [id number] Jan, [facility] [place] [address] [id number] [place] [id number] December, [facility] [place] [address] [id number] [place] [id number] December, [facility] [address] [id number], [place] [address] Nov, [facility] [address] [id number] [place] [id number] Nov, [facility] [address] [id number] [place] [id number] Nov, [facility] [place] [address] [id number] [place] [id number] Nov, [facility] [place] [address] [id number] [place] [id number] Nov, [facility] [address] [facility] [id number], [place] [address] Oct, [facility] [address] [facility] [id number], [place] [address] Oct, [facility] [address] [id number] [place] [id number] Oct, [facility] [place] [address] [id number] [place] [id number] Oct, [facility] [place] [address] [id number] [place] [id number] Oct, [facility] [place] [address] [id number] [place] [id number] Oct, [facility] [place] [address] [id number] [place] [id number] Oct, [facility] [place] [address] [id number] [place] [id number] Oct, [facility] [place] [address] [id number] [place] [id number] Oct, [facility] [address] [facility] [id number], [place] [address] Oct, [facility] [place] [address] [id number] [place] [id number] Sep, [facility] [place] [address] [id number] [place] [id number] Sep, [facility] [place] [address] [id number] [place] [id number] Aug, [facility] [place] [address] [id number] [place] [id number] Aug, [facility] [id number] [address] Jul, [facility] [id number] [place] [address] Jul, [facility] [id number] [address] Jul, [facility] [id number] [place] [id number] Jul, [facility] [id number], [place] [address] Jul, [facility] [id number] [place] [address] Jul, [facility] [id number] [address] Jul, [facility] [id number] [place] [address] Jul, [facility] [address] [facility] [id number], [place] [address] Jul, [facility] [address] [id number] [address] Jul, [facility] [address] [facility] [id number], [place] [address] Jul, [facility] [address] [id number] [address] Jul, [facility] [address] [facility] [id number], [place] [address] Jul, [facility] [address] [id number], [place] [address] Jul, IMMUNIZATIONS No Known Immunizations SOCIAL HISTORY Never Assessed REASON FOR VISIT only PLAN OF CARE VITAL SIGNS MEDICATIONS Unknown Medications RESULTS No Results PROCEDURES No Known procedures INSTRUCTIONS MEDICATIONS ADMINISTERED No Known Medications MEDICAL (GENERAL) HISTORY Type Description Date Medical History peripheral vascular disease s/p angioplasty w/ stent R leg Medical History hypertension Medical 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 Secondary to ATN from [facility] 4.3 Medical History HX of dry [...] Surgical History Left eye retinal eye repair ([facility]) 06/2014 Surgical History amputation, toe-right third toe ([facility]) 2013 Surgical History Right eye retinal eye repair ([facility]) 09/2014 Surgical History heart cath with [...]
--- OUTSIDE RECORDS SUMMARY | 2018-06-20 10:26 | XMS REPORT ---
Author Author SATINDER GOOD [facility] Address [address] [place] [address] Care Team Providers Care Grinder Set Up Operator Gear Tool Name Role Phone SATINDER GOOD Unavailable PROBLEMS Type Condition ICD9-CM Code XMF13-HY Code Onset Dates Condition Status SNOMED Code Problem Peripheral vascular disease I73.9 Active 690878307 Problem Coronary artery disease involving tatitlek coronary artery of tatitlek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 Active 2048733621909 Problem S/P coronary artery stent placement Z95.5 Active 203086029 Problem Chronic obstructive pulmonary disease, unspecified COPD type J44.9 Active 99788047 Problem Type 2 diabetes mellitus with diabetic neuropathy E11.40 Active 25947868 Problem Bilateral low back pain without sciatica M54.5 Active 610162758 Problem 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 Active 356238590 Problem 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 Active 942285522 Problem Hypercholesterolemia E78.0 Active 00443316 Problem Comprehensive diabetic foot examination, type 2 DM, encounter for E11.9 Active 87113040 Problem Type 2 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 Active 932339940 Problem Obesity (BMI 30.0-34.9) E66.9 Active [id number] Problem Personal history of carotid stenosis Z86.79 Active 441583901 Problem Aphasia R47.01 Active 68501846 Problem Chronic diarrhea K52.9 Active 537583703 Problem Uses walker Z99.89 Active 809686888 Problem Chronic fatigue R53.82 Active 03423301 Problem Mixed stress and urge urinary incontinence N39.46 Active 337571002 Problem Chronic pain syndrome G89.4 Active 791245993 Problem High risk medication use Z79.899 Active 092019273 Problem Osteomyelitis of right foot, unspecified chronicity M86.9 Active 90006439 Problem Fatigue, unspecified type R53.83 Active 17629333 Problem Diabetes type 2, uncontrolled E11.65 Active 524678410 Problem Full incontinence of feces R15.9 Active 325401851866553 Problem Other chronic pain G89.29 Active 61035172 Problem Functional diarrhea K59.1 Active 94748127 Problem Fecal urgency R15.2 Active 15101521 Problem Depression F32.9 Active 70746262 Problem CKD (chronic kidney disease), stage 3 (moderate) N18.3 Active 945291530 Problem Hyperlipidemia, unspecified hyperlipidemia E78.5 Active 32906376 Problem CKD (chronic kidney disease) stage 3, GFR 30-59 ml/min N18.3 Active 154893952 Problem Type 2 diabetes mellitus with diabetic peripheral angiopathy without gangrene E11.51 Active 940751487 Problem Pain in left shoulder M25.512 Active 25443062 Problem Insulin long-term use Z79.4 Active 251816286 Problem Essential hypertension I10 Active 41800881 Problem Type 2 diabetes mellitus with diabetic retinopathy, macular edema presence unspecified, with unspecified retinopathy severity E11.319 Active 07686212 Problem Chronic kidney disease, unspecified N18.9 Active 706534667 Problem Type 2 diabetes mellitus with foot ulcer E11.621 Active 620975641 Problem Frequent falls R29.6 Active 377492803 Problem GERD without esophagitis K21.9 Active 131383413 Problem Mixed hyperlipidemia E78.2 Active 341935924 ALLERGIES No Information ENCOUNTERS Encounter Location Date Diagnosis [address] [id number] December, Mixed stress and urge urinary incontinence N39.46 [place] [id number] [place] [address] [id number] December, Chronic fatigue R53.82 [place] [id number] [place] [address] [id number] December, Other chronic pain G89.29 [place] [id number] [place] [address] [id number] December, Diabetes type 2, uncontrolled E11.65 ; [...] type J44.9 and Other chronic pain G89.29 [facility] [address], [place] [address] December, [place] [id number] [place] [address] [id number] December, Medicare annual wellness visit, subsequent Z00.00 ; Type 2 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 ; Chronic obstructive pulmonary disease, unspecified COPD type J44.9 ; Depression F32.9 ; Peripheral vascular disease I73.9 ; Coronary artery disease involving tat[place]k coronary artery of tatitlek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 ; Hypercholesterolemia E78.0 ; GERD without esophagitis K21.9 and Chronic kidney disease, unspecified N18.9 [place] [id number] [place] [address] [id number] December, Mixed stress and urge urinary incontinence N39.46 ; Full incontinence of feces R15.9 ; Fecal urgency R15.2 ; Functional diarrhea K59.1 and Type 2 diabetes mellitus with diabetic neuropathy E11.40 [place] [id number] [place] [address] [id number] Nov, Other chronic pain G89.29 [address] [place] [address] [id number] Oct, [place] [id number] [place] [address] [id number] Oct, [place] [id number] [place] [address] [id number] Oct, Other chronic pain G89.29 [place] [id number] [place] [address] [id number] Sep, Other chronic pain G89.29 [place] [id number] [place] [address] [id number] Aug, CKD (chronic kidney disease), stage 3 (moderate) N18.3 ; Anemia, unspecified type D64.9 and Dilated pore of Ly L70.8 [facility] [id number] [place] [address] [id number] Aug, Other chronic pain G89.29 ; Pain in left shoulder M25.512 ; High risk medication use Z79.899 ; Uses walker Z99.89 ; Diabetes type 2, uncontrolled E11.65 and Depression F32.9 [place] [id number] [place] [address] [id number] Aug, Chronic diarrhea K52.9 [place] [id number] [place] [address] [id number] Aug, Chronic diarrhea K52.9 ; Type 2 diabetes mellitus with diabetic neuropathy E11.40 ; Diabetes type 2, uncontrolled E11.65 ; Insulin long-term use Z79.4 ; Chronic obstructive pulmonary disease, unspecified COPD type J44.9 ; Chronic pain syndrome G89.4 ; Pain in left shoulder M25.512 ; Uses walker Z99.89 ; S/P coronary artery stent placement Z95.5 ; Mixed hyperlipidemia E78.2 and Essential hypertension I10 [place] [id number] [place] [address] [id number] Aug, [place] [id number] [place] [address] [id number] Jul, Diabetes type 2, uncontrolled E11.65 [place] [id number] [place] [address] [id number] Jul, Diabetes type 2, uncontrolled E11.65 ; Type 2 diabetes mellitus with diabetic neuropathy E11.40 ; Insulin long-term use Z79.4 and Chronic obstructive pulmonary disease, unspecified COPD type J44.9 [place] [id number] [place] [address] [id number] Jun, [address] [id number] Jun, Essential hypertension I10 [place] [id number] [place] [address] [id number] Jun, Essential hypertension I10 [place] [id number] [place] [address] [id number] Jun, Type 2 diabetes mellitus with diabetic neuropathy E11.40 ; Type 2 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 ; S/P coronary artery stent placement Z95.5 ; Obesity (BMI 30.0-34.9) E66.9 ; Mixed hyperlipidemia E78.2 ; Frequent falls R29.6 ; Chronic obstructive pulmonary disease, unspecified COPD type J44.9 ; Essential hypertension I10 ; Insulin long-term use Z79.4 and High risk medication use Z79.899 [address] [place] [address] [id number] May, Diarrhea, unspecified type R19.7 ; Type 2 diabetes mellitus with diabetic neuropathy E11.40 ; Chronic obstructive pulmonary disease, unspecified COPD type J44.9 ; S/P coronary artery stent placement Z95.5 ; High risk medication use Z79.899 ; Essential hypertension I10 ; Encounter for administration of vaccine Z23 and Encounter for immunization Z23 [address] [id number] [id number] May, Chronic obstructive pulmonary disease, unspecified COPD type J44.[id number] [place] [address] [id number] May, Type 2 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 ; Encounter for immunization Z23 ; Needs flu shot Z23 ; Comprehensive diabetic foot examination, type 2 DM, encounter for E11.9 and Obesity (BMI 30.0-34.9) E66.9 [address] [place] [address] [id number] May, [address] [place] [address] [id number] Apr, [address] [place] [address] [id number] Apr, Essential hypertension I10 and Aphasia R47.01 [place] [id number] [place] [address] [id number] Apr, [place] [id number] [place] [address] [id number] Apr, Type 2 diabetes mellitus with diabetic neuropathy E11.40 ; Frequent falls R29.6 ; Essential hypertension I10 ; S/P coronary artery stent placement Z95.5 ; High risk medication use Z79.899 ; Hyperlipidemia, unspecified hyperlipidemia E78.5 ; CKD (chronic kidney disease), stage 3 (moderate) N18.3 ; Pain in left shoulder M25.512 and Chronic obstructive pulmonary disease, unspecified COPD type J44.9 [facility] [id number] [place] [address] [id number] Mar, [facility] [address] [id number] Mar, Type 2 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 ; Leg wound, left, initial encounter S81.802A ; Hx of shoulder surgery Z98.890 ; Acute pain of left shoulder M25.512 and Fall, initial encounter W19.XXXA [facility] [id number] [place] [address] [id number] Feb, Follow-up exam Z09 ; Hx of shoulder surgery Z98.890 ; Acute pain of left shoulder M25.512 ; Essential hypertension I10 and Leg wound, left, initial encounter S81.802A [facility] [id number] [place] [address] [id number] Feb, [facility] [id number] [place] [address] [id number] Feb, [facility] [id number] [place] [address] [id number] Feb, Chronic obstructive pulmonary disease, unspecified COPD type J44.9 [facility] [id number] [place] [address] [id number] Feb, [facility] [id number] [place] [address] [id number] Jan, Generalized weakness R53.1 ; Exertional shortness of breath R06.02 and Fungal rash of trunk B36.9 [facility] [id number] [place] [address] [id number] Jan, [facility] [id number] [place] [address] [id number] Jan, [facility] [id number] [place] [address] [id number] Jan, [facility] [address] [facility] [id number] [id number] Jan, [address] [id number] December, High risk medication use Z79.899 [address] [id number] December, Type 2 diabetes mellitus with diabetic neuropathy E11.40 [address] [place] [address] [id number] December, High risk medication use Z79.[id number] [place] [address] [id number] Nov, Diabetes type 2, uncontrolled E11.65 [address] [place] [address] [id number] Nov, Medicare annual wellness visit, initial Z00.00 ; Bilateral low back pain without sciatica M54.5 ; Pain in left shoulder M25.512 ; Chronic pain syndrome G89.4 ; Type 2 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 ; High risk medication use Z79.899 and Encounter for immunization Z23 [id number] [place] [address] [id number] Nov, Type 2 diabetes mellitus with diabetic neuropathy E11.40 ; Coronary artery disease involving tatitlek coronary artery of tatitlek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 and CKD (chronic kidney disease), stage 3 (moderate) N18.[address] [id number] [id number] Oct, Type 2 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 ; Chronic pain syndrome G89.4 ; Chronic obstructive pulmonary disease, unspecified COPD type J44.9 ; Chronic kidney disease, unspecified N18.9 and Rash R21 [place] [address] [facility] [id number] [id number] Oct, Type 2 diabetes mellitus with diabetic neuropathy E11.[address] [id number] [id number] Oct, Rash R21 and Impetigo L01.00 [place] [id number] [id number] Oct, Chronic pain syndrome G89.4 [facility] [address] [place] [id number] [place] [address] [id number] Oct, [facility] [address] [place] [id number] [place] [address] [id number] Sep, Sebaceous cyst L72.3 [facility] [address] [place] [id number] [place] [address] [id number] Sep, Sebaceous cyst L72.3 [facility] [id number] [place] [address] [id number] Sep, Chronic pain syndrome G89.4 ; Pain in left shoulder M25.512 and Effusion of olecranon bursa, left M25.422 [facility] [id number] [address] Aug, [place] [id number] [place] [address] [id number] Aug, [place] [address] [id number] [place] [address] [id number] Aug, Mixed hyperlipidemia E78.2 and Chronic kidney disease, unspecified N18.9 [place] [id number] [place] [address] [id number] Jul, Type 2 diabetes mellitus with diabetic neuropathy E11.40 ; Essential hypertension I10 and S/P coronary artery stent placement Z95.5 [place] [id number] [place] [address] [id number] Jul, 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 [address] [place] [address] [id number] Jul, Diabetes type 2, uncontrolled E11.65 ; Essential hypertension I10 and 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 [address] [place] [address] [id number] Jul, [place] [id number] [place] [address] [id number] Jul, [place] [id number] [place] [address] [id number] Jul, [address] [place] [address] [id number] Jul, Chronic obstructive pulmonary disease, unspecified COPD type J44.9 [place] [id number] [place] [address] [id number] Jun, CKD (chronic kidney disease), stage 3 (moderate) N18.3 and Anemia, unspecified type D64.9 [place] [id number] [place] [address] [id number] Jun, Type 2 diabetes mellitus with diabetic neuropathy E11.40 ; Decreased GFR R94.4 ; CKD (chronic kidney disease), stage 3 (moderate) N18.3 and Decreased hemoglobin R71.0 [place] [id number] [place] [address] [id number] Jun, CKD (chronic kidney disease), stage 3 (moderate) N18.3 and Anemia, unspecified type D64.9 [address] [place] [address] [id number] Jun, Type 2 diabetes mellitus with diabetic neuropathy E11.40 ; Decreased GFR R94.4 and CKD (chronic kidney disease), stage 3 (moderate) N18.3 [place] [id number] [place] [address] [id number] Jun, Type 2 diabetes mellitus with diabetic neuropathy E11.40 and Essential hypertension I10 [address] [place] [address] [id number] Jun, [place] [id number] [place] [address] [id number] Jun, [address] [place] [address] [id number] Jun, Type 2 diabetes mellitus with diabetic neuropathy E11.40 ; S/P coronary artery stent placement Z95.5 ; Chronic obstructive pulmonary disease, unspecified COPD type J44.9 ; Essential hypertension I10 ; GERD without esophagitis K21.9 ; Peripheral vascular disease I73.9 ; Mixed hyperlipidemia E78.2 and Hospital discharge follow-up Z09 [place] [id number] [place] [address] [id number] Jun, [place] [id number] [id number] May, Depression F32.9 and Hyperlipidemia, unspecified hyperlipidemia E78.5 [facility] [address] [facility] [id number] [place] [address] May, [place] [id number] [id number] May, [address] [id number] May, Essential hypertension I10 ; Chronic pain syndrome G89.4 ; Pain in left shoulder M25.512 ; High risk medication use Z79.899 ; Chronic obstructive pulmonary disease, unspecified COPD type J44.9 ; S/P coronary artery stent placement Z95.5 ; Personal history of carotid stenosis Z86.79 ; Hyperlipidemia, unspecified hyperlipidemia E78.5 ; Decreased GFR R94.4 and Type 2 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 [address] [id number] May, Hemoglobin decreased R71.0 and Decreased GFR R94.4 [address] [place] [address] [id number] May, Hemoglobin decreased R71.0 and Decreased GFR R94.4 [place] [id number] [id number] May, [address] [id number] May, [address] [id number] Apr, [place] [id number] [id number] Apr, Type 2 diabetes mellitus with foot [...] unspecified hyperlipidemia E78.5 and Essential hypertension I10 [facility] [id number] [place] [address] [id number] Apr, [facility] [id number] [place] [address] [id number] Mar, [facility] [id number] [place] [address] [id number] Mar, [place] [address] [place] [address] [id number] [place] [address] [phone] Mar, [facility] [id number] [place] [address] [id number] Feb, [facility] [id number] [place] [address] [id number] Feb, [facility] [id number] [place] [address] [id number] Feb, [facility] [id number] [place] [address] [id number] Jan, Type 2 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 ; Hypercholesterolemia E78.0 ; Chronic pain syndrome G89.4 ; Pain in left shoulder M25.512 and High risk medication use Z79.899 [facility] [id number] [place] [address] [id number] Jan, [place] [id number] [place] [address] [id number] Jan, [facility] [id number] [place] [address] [id number] December, [facility] [id number] [place] [address] [id number] December, [place] [address] [place] [id number] [place] [address] [phone] December, Diabetes type 2, uncontrolled E11.65 ; Type 2 diabetes mellitus with diabetic neuropathy E11.40 ; Peripheral vascular disease I73.9 ; 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 and 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 [facility] [place] [address] [id number] [place] [id number] Nov, [facility] [place] [address] [id number] [place] [id number] Nov, [facility] [place] [address] [id number] [place] [id number] Nov, [facility] [id number] [place] [id number] Nov, Right hip pain M25.551 [facility] [id number] [place] [phone][address] [phone] Nov, [facility] [id number] [place] [address] 38674- [phone] Nov, [facility] [id number] [place] [address] [id number] Nov, Diabetes with neurological manifestations, type II or unspecified type, 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.60 [facility] [address] [id number] [id number] Nov, [facility] [address] [id number][place] [id number] Nov, [facility] [address] [id number] [place] [address] [id number] Oct, Diabetes type 2, uncontrolled E11.65 ; Type 2 diabetes mellitus with diabetic neuropathy, unspecified E11.40 and Low back pain M54.5 [facility] [address] [id number][place] [id number] Oct, [facility] [address] [id number], [place] [id number] Oct, [facility] [place] [address] [id number], [place] [id number] Oct, [facility] [place] [id number] [place] [address] [id number] Sep, [facility] [id number][place] [id number] Sep, [facility] [id number] [place] [address] [phone]- [phone] Sep, [facility] [address] [place] [address] [id number] [id number] Sep, [facility] [id number] [place] [address] [id number] Sep, [facility] [id number] [place] [address] [id number] Aug, 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 [facility] [id number] [place] [address] [id number] Aug, [facility] [id number] [place] [address] [id number] Aug, Allergic rhinitis due to pollen J30.1 [address] [place] [address] [id number] Jul, [place] [id number] [place] [address] [id number] Jul, [address] [place] [address] [id number] Jul, [place] [id number] [place] [address] [id number] Jun, [place] [id number] [place] [address] [id number] Jun, Thumb tendonitis M77.8 and Ringing in ear, bilateral H93.[address] [id number] [id number] Jun, [address] [place] [address] [id number] May, [facility] [address]00565100[place], [place] [address] May, [facility] [id number] [place] [address] 96159- 5[address] May, Pre-op evaluation Z01.818 ; Encounter for immunization Z23 ; Type 2 diabetes mellitus with diabetic peripheral angiopathy without gangrene E11.51 ; Insulin long-term use Z79.4 ; Type 2 diabetes mellitus with foot ulcer E11.621 ; Peripheral vascular disease I73.9 ; Coronary artery disease involving tatitlek coronary artery of tatitlek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 ; S/P coronary artery stent placement Z95.5 ; Osteomyelitis of right foot, unspecified chronicity M86.9 and Chronic obstructive pulmonary disease, unspecified COPD type J44.9 [facility] [id number] [place] [address] [phone] May, [facility] [id number] [place] [address] [id number] May, [facility] [address] [id number] May, Diabetes type 2, uncontrolled E11.65 ; Encounter for immunization Z23 ; Osteopenia M85.80 and Allergic rhinitis due to pollen J30.1 [facility] [address] [id number] May, Lumbago 724.2 [place] [address] [id number] Apr, [facility] [id number] [place] [address] [id number] Apr, [facility] [id number] [place] [address] [id number] Apr, [facility] [id number] [place] [address] [id number] Apr, [facility] [address] [place] [address] [phone] Mar, [facility] [id number] [place] [address] [id number] Mar, [facility] [id number] [place] [address] [id number] Mar, [facility] [id number] [place] [address] [id number] Mar, [facility] [id number] [place] [address] [id number] Mar, [facility] [id number] [place] [address] 89095- 3478 Mar, [facility] [address] [id number][place] [id number] Mar, [facility] [id number], [place] [id number] Mar, Diabetes with neurological manifestations, type II or unspecified type, 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.60 and Severe obesity (BMI 35.0-35.9 with comorbidity) 278.01 [facility] [id number][place] [id number] Mar, [facility] [id number] [place] [address] 14751- 2546 Mar, [facility] [id number] [place] [address] 32224- 2546 Feb, [facility] [id number], [place] [id number] Feb, [facility] [id number], [place] [id number] Feb, [facility] [id number] [place] [address] [id number] Feb, Diabetes with neurological manifestations, type II or unspecified type, 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.60 [facility] [id number] [place] [id number] Feb, [facility] [address]00565100[place], [place] [address]- 2546 Feb, [facility] [id number], [place] [id number] Feb, [facility] [id number], [place] [id number] Feb, Follow up V67.9 ; Diabetes with neurological manifestations, type II or unspecified type, 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.60 and Congestive heart failure 428.0 [facility] [address] [id number], [place] [id number] Jan, [facility] [address] [id number], [place] [id number] Jan, [facility] [address] [id number] [id number] Jan, [facility] [address] [id number][place] [id number] December, Otitis media with effusion 381.4 ; Left arm numbness 782.0 and Osteoporosis 733.00 [facility] [address] [id number], [place] [id number] December, [facility] [id number], [place] [id number] Nov, [facility] [id number], [place] [id number] Nov, Serous otitis media 381.4 and Lumbago 724.2 [facility] [id number] [place] [address] 33881- 0356 Nov, [facility] [id number] [place] [address] 00624- 4636 Nov, [facility] [id number], [place] [id number] Oct, [facility] [address]00565100[place], [place] [address]- 1544 Oct, [facility] [id number], [place] [id number] Oct, [facility] [address] [id number], [place] [address]- 7876 Oct, [facility] [id number], [place] [id number] Oct, [facility] [address]00565100[place], [place] [address]- 3256 Oct, [facility] [id number] [place] [address] 64003- 5576 Sep, [facility] [place] [facility] [address] [id number], [place] [address]- 2046 Sep, [facility] [address] [id number], [place] [id number] Sep, [facility] [address]00565100[place], [place] [address]- 4836 Sep, [facility] [address] [facility] [id number], [place] [id number] Aug, [facility] [place] [facility] [address] [facility] [id number], [place] [address]- 7212 Aug, [facility] [address] [facility] [id number], [place] [id number] Aug, [facility] [place] [facility] [address] [facility] [id number], [place] [address]- 0439 Aug, [facility] [address] [facility] [id number] [place] [id number] Jul, [facility] [place] [facility] [address] [facility] [id number], [place] [address]- 9914 Jul, [facility] [address] [id number], [place] [id number] Jul, [facility] [place] [facility] [address] [facility] [id number], [place] [address]- 0610 Jul, [facility] [address] [facility] [id number], [place] [id number] Jul, [facility] [place] [facility] [address] [facility] [id number], [place] [address]- 4466 Jul, [facility] [address] [id number], [place] [id number] Jun, [facility] [place] [facility] [address] [facility] [id number], [place] [address]- 8986 Jun, [facility] [address] [facility] [id number], [place] [id number] May, [facility] [place] [facility] [address] [facility] [id number], [place] [address]- 3005 May, [facility] [address] [facility] [id number], [place] [id number] May, [facility] [place] [facility] [address] [facility] [id number], [place] [address]- 0092 May, [facility] [address] [id number] [place] [id number] May, [facility] [place] [facility] [address] [facility] [id number], [place] [address]- 0445 May, [facility] [address] [id number] [place] [id number] May, [facility] [address] [facility] [id number] [place] [id number] May, [facility] [place] [facility] [address] [facility] [id number], [place] [address]- 2473 May, [facility] [place] [facility] [address] [facility] [id number], [place] [address]- 6726 May, [facility] [address] [facility] [id number], [place] [id number] May, [facility] [place] [facility] [address] [facility] [id number], [place] [address]- 0084 May, [facility] [place] [facility] [address] [facility] [id number], [place] [address]- 9079 Apr, [facility] [address] [facility] [id number], [place] [id number] Apr, [facility] [place] [facility] [address] [facility] [id number], [place] [address]- 6267 Apr, [facility] [address] [facility] [id number], [place] [id number] Apr, [facility] [address] [facility] [id number], [place] [id number] Apr, [facility] [place] [facility] [address] [facility] [id number], [place] [address]- 3890 Apr, [facility] [place] [facility] [address] [facility] [id number], [place] [address]- 9284 Apr, [facility] [address] [facility] [id number], [place] [id number] Apr, [facility] [place] [facility] [address] [facility] [id number], [place] [address]- 8048 Apr, [facility] [address] [id number] [place] [id number] Apr, [facility] [place] [facility] [address] [id number] [place] [id number]- 6703 Apr, [facility] [address] [id number] [place] [id number] Apr, [facility] [place] [facility] [address] [facility] [id number], [place] [address]- 1369 Apr, [facility] [address] [id number] [place] [id number] Apr, [facility] [place] [facility] [address] [facility] [id number], [place] [address]- 1511 Apr, [facility] [address] [id number] [place] [id number] Apr, [facility] [place] [facility] [address]00565100[place], [place] [address]- 0274 Apr, [facility] [address] [id number] [place] [id number] Apr, [facility] [place] [facility] [address] [facility] [id number], [place] [address]- 7232 Apr, [facility] [address] [facility] [id number], [place] [id number] Mar, [facility] [place] [facility] [address] [facility] [id number], [place] [address]- 9939 Mar, [facility] [address] [id number], [place] [id number] Mar, [facility] [address] [id number], [place] [id number] Mar, [facility] [place] [facility] [address] [facility] [id number] [place] [address]- 2580 Mar, [facility] [place] [facility] [address] [facility] [id number] [place] [address]- 5497 Mar, [facility] [address] [id number], [place] 612524352 Mar, [facility] [place] [facility] [address] [id number], [place] [address]- 0148 Mar, [facility] [address] [id number] [place] [id number] Mar, [facility] [place] [facility] [address] [facility] [id number], [place] [address]- 8050 Mar, [facility] [address] [id number] [place] [id number] Mar, [facility] [place] [facility] [address] [facility] [id number], [place] [address]- 5355 Mar, [facility] [address] [id number] [place] [id number] Mar, [facility] [place] [facility] [address] [facility] [id number][place] [address]- 4381 Mar, [facility] [address] [facility] [id number], [place] [id number] Mar, [facility] [place] [facility] [address] [facility] [id number], [place] [address]- 5799 Mar, [facility] [address] [facility] [id number], [place] [id number] Mar, [facility] [place] [facility] [address] [facility] [id number], [place] [address]- 9053 Mar, [facility] [address] [facility] [id number], [place] [id number] Mar, [facility] [place] [facility] [address] [facility] [id number], [place] [address]- 8695 Mar, [facility] [address] [facility] [id number], [place] [id number] Feb, [facility] [place] [facility] [address] [facility] [id number], [place] [address]- 1336 Feb, [facility] [address] [id number] [place] [id number] Feb, [facility] [place] [facility] [address] [facility] [id number], [place] [address]- 0156 Feb, [facility] [address] [id number] [place] [id number] Feb, [facility] [place] [facility] [address] [id number] [place] [address]- 5536 Feb, [facility] [address] [id number] [place] 678233701 Feb, [facility] [place] [facility] [address] [id number] [place] [address]- 3498 Feb, [facility] [address] [id number] [place] [id number] Feb, [facility] [place] [facility] [address] [id number] [place] [address]- 3065 Feb, [facility] [address] [id number] [place] 885562219 Feb, [facility] [place] [facility] [address] [facility] [id number] [place] [address]- 8109 Feb, [facility] [address] [id number] [place] [id number] Feb, [facility] [place] [facility] [address] [facility] [id number] [place] [address]- 2865 Feb, [facility] [address] [id number] [place] [id number] Feb, [facility] [place] [facility] [address] [id number] [place] [address]- 0854 Feb, [facility] [address] [id number] [place] [id number] Feb, [facility] [place] [facility] [address] [id number] [place] [address]- 1222 Feb, [facility] [address] [id number] [place] [id number] Feb, [facility] [address] [id number] [place] 870421338 Feb, [facility] [place] [facility] [address] [facility] [id number] [place] [address]- 6961 Feb, [facility] [place] [facility] [address] [id number] [place] [address]- 8309 Feb, [facility] [address] [id number] [place] [id number] Feb, [facility] [place] [facility] [address] [id number] [place] [address]- 0836 Feb, 2013 [facility] [address] [facility] [id number] [place] [id number] Feb, [facility] [place] [facility] [address] [id number] [place] [address]- 5106 Feb, [facility] [address] [id number] [place] [id number] Feb, [facility] [place] [facility] [address] [facility] [id number] [place] [address]- 5086 Feb, [facility] [address] [facility] [id number] [place] [id number] Jan, [facility] [place] [facility] [address] [facility] [id number] [place] [address]- 6440 Jan, [facility] [place] [facility] [address] [facility] [id number] [place] [address]- 6630 Jan, [facility] [place] [facility] [address] [facility] [id number] [place] [address]- 1930 Jan, [facility] [place] [facility] [address] [facility] [id number] [place] [address]- 5557 Jan, [facility] [place] [facility] [address] [facility] [id number] [place] [address]- 0824 Jan, [facility] [address] [facility] [id number] [place] [id number] Jan, [facility] [place] [facility] [address] [facility] [id number] [place] [address]- 2594 Jan, [facility] [place] [facility] [address] [facility] [id number] [place] [address]- 0861 Jan, [facility] [place] [facility] [address] [facility] [id number] [place] [address]- 6138 Jan, [facility] [address] [id number] [place] [id number] Jan, [facility] [address] [id number] [place] 817118051 Jan, [facility] [place] [facility] [address] [facility] [id number] [place] [address]- 4573 Jan, [facility] [place] [facility] [address] [id number] [place] [address]- 0910 Jan, [facility] [address] [id number] [place] [id number] Jan, [facility] [address] [id number] [place] [id number] Jan, [facility] [place] [facility] [address] [facility] [id number] [place] [address]- 1724 Jan, [facility] [place] [facility] [address] [facility] [id number] [place] [address]- 3054 Jan, [facility] [place] [facility] [address] [facility] [id number] [place] [address]- 3362 Jan, [facility] [address] [facility] [id number] [place] [id number] December, [facility] [place] [facility] [address] [facility] [id number] [place]16[place]- 0362 December, [facility] [place] [facility] [address] [facility] [id number] [place] [address]- 1001 December, [facility] [address] [id number] [place] [id number] December, [facility] [place] [facility] [address] [facility] [id number] [place] [address]- 6236 December, [facility] [address] [facility] [id number] [place] [id number] December, [facility] [place] [facility] [address] [facility] [id number] [place] [address]- 4738 December, [facility] [address] [id number] [place] [id number] December, [facility] [place] [facility] [address] [facility] [id number] [place] [address]- 5306 December, [facility] [address] [facility] [id number] [place] [id number] Nov, [facility] [place] [facility] [address] [facility] [id number] [place] [address]- 2106 Nov, [facility] [address] [facility] [id number] [place] [id number] Nov, [facility] [place] [facility] [address] [facility] [id number] [place] [address]- 6803 Nov, [facility] [place] [facility] [address] [facility] [id number] [place] [address]- 1427 Nov, [facility] [place] [facility] [address]00565100[place], [place] [address]- 3483 Nov, [facility] [place] [facility] [id number] [place] [address]- 3129 Oct, [facility] [address] [facility] [id number] [place] [id number] Oct, [facility] [place] [facility] [address] [facility] [id number], [place] [address]- 9015 Oct, [facility] [address] [facility] [id number], [place] 772802506 Oct, [facility] [place] [facility] [address] [facility] [id number], [place] [address]- 5582 Oct, [facility] [address] [facility] [id number] [place] [id number] Sep, [facility] [place] [facility] [address] [facility] [id number], [place] [address]- 6546 Sep, [facility] [address] [facility] [id number] [place] [id number] Aug, [facility] [place] [facility] [address] [id number] [place] [address]- 2531 Aug, [facility] [address] [id number] [place] [id number] Aug, [facility] [place] [facility] [address] [facility] [id number] [place] [address]- 8196 Aug, [facility] [place] [facility] [address] [facility] [id number], [place] [address]- 7603 Aug, [facility] [address] [facility] [id number], [place] [id number] Aug, [facility] [place] [facility] [address] [facility] [id number] [place] [address]- 7852 Aug, [facility] [place] [facility] [address] [facility] [id number] [place] [address]- 1288 Aug, [facility] [address] [facility] [id number][place] [id number] Aug, [facility] [place] [facility] [address] [facility] [id number], [place] [address]- 5983 Aug, [facility] [address] [facility] [id number], [place] [id number] Jul, [facility] [place] [facility] [address] [facility] [id number], [place] [address]- 3154 Jul, [facility] [address] [facility] [id number], [place] [id number] Jul, [facility] [place] [facility] [address] [facility] [id number], [place] [address]- 5490 Jul, [facility] [address] [facility] [id number], [place] [id number] Jul, [facility] [place] [facility] [address] [facility] [id number], [place] [address]- 5843 Jul, [facility] [address] [facility] [id number], [place] [id number] Jul, [facility] [place] [facility] [address] [facility] [id number], [place] [address]- 5101 Jul, [facility] [address] [id number][place] [id number] Jun, [facility] [address] [id number], [place] [address]- 1326 Jun, [facility] [address] [id number], [place] [id number] Jun, [facility] [address] [facility] [id number], [place] [address]- 9615 Jun, [facility] [address] [facility] [id number], [place] [address]- 4815 Jun, [facility] [address] [facility] [id number], [place] [address]- 8247 Jun, [facility] [address] [id number], [place] [id number] Apr, [facility] [address] [id number] [place] [id number] Mar, [facility] [address] [id number][place] [id number] Mar, [facility] [address] [id number] [place] [id number] Feb, [facility] [address] [id number] [place] [id number] Feb, [facility] [address] [id number][place] [id number] Feb, [facility] [address] [id number], [place] [id number] December, [facility] [address] [id number][place] [id number] December, [facility] [address] [id number], [place] [address] December, [facility] [address] [id number] [place] [id number] December, [facility] [address] [id number] [place] [id number] December, [facility] [address] [id number][place] [id number] Nov, [facility] [address] [id number] [place] [id number] Nov, [facility] [address] [id number] [place] [id number] Nov, [facility] [address] [id number] [place] [id number] Oct, [facility] [address] [id number] [place] [id number] Sep, [facility] [address] [id number] [place] [id number] Aug, [facility] [address] [facility] [id number], [place] [address] Aug, [facility] [address] [id number] [place] [id number] Aug, [facility] [address] [id number] [place] [id number] Jul, [facility] [address] [facility] [id number], [place] [address] Jul, [facility] [address] [id number][place] [id number] Jul, [facility] [address]65[address], [place] [address] Jul, [facility] [address] [id number][place] [id number] Jun, [facility] [address] [facility] [id number], [place] [address] Jun, [facility] [address] [id number][place] [id number] May, [facility] [address] [facility] [id number], [place] [address] May, [facility] [address] [id number][place] [id number] May, [facility] [address] [facility] [id number], [place] [address] May, [facility] [address] [id number] [place] [id number] Apr, [facility] [place] [address] [id number] [place] [id number] Apr, [facility] [place] [address] [id number] [place] [id number] Mar, [facility] [place] [address] [id number] [place] [id number] Mar, [facility] [place] [address] [id number] [place] [id number] Feb, [facility] [place] [address] [id number] [place] [id number] Feb, [facility] [address] [id number] [place] [id number] Jan, [facility] [place] [address] [id number] [place] [address]34[address] Jan, [facility] [address] [id number] [place] [id number] Jan, [facility] [place] [address] [id number] [place] [id number] Jan, [facility] [place] [address] [id number] [place] [id number] December, [facility] [address] [id number] [place] [id number] December, [facility] [address], [place] [address] Nov, [facility] [address] [id number] [place] [id number] Nov, [facility] [address] [id number] [place] [id number] Nov, [facility] [address] [id number] [place] [id number] Nov, [facility] [address] [id number] [place] [id number] Nov, [facility] [id number] [place] [id number] Oct, [facility] [id number] [place] [address] Oct, [facility] [place] [address] [id number] [id number] Oct, [facility] [place] [address] [id number] [place] [id number] Oct, [facility] [place] [address] [id number] [place] [id number] Oct, [facility] [place] [address] [id number] [place] [id number] Oct, [facility] [place] [address] [id number] [place] [id number] Oct, [facility] [place] [address] [id number] [place] [id number] Oct, [facility] [place] [address] [id number] [place] [id number] Oct, [facility] [address]65100[place], [place] [address] Oct, [facility] [place] [address] [id number] [place] [id number] Sep, [facility] [place] [address] [id number] [place] [id number] Sep, [facility] [address] [id number] [place] [id number] Aug, [facility] [address] [id number] [place] [id number] Aug, [facility] [address] [id number] [place] [address] Jul, [facility] [id number] [place] [address] Jul, [facility] [id number] [address] Jul, [facility] [id number] [place] [address] Jul, [facility] [id number], [place] [address] Jul, [facility] [id number], [place] [address] Jul, [facility] [id number], [place] [address] Jul, [facility] [id number], [place] [address] Jul, [facility] [id number], [place] [address] Jul, [facility] [id number], [place] [address] Jul, [facility] [id number] [place] [address] Jul, [facility] [id number], [place] [address] Jul, [facility] [id number], [place] [address] Jul, [facility] [id number], [place] [address] Jul, IMMUNIZATIONS No Known Immunizations SOCIAL HISTORY Never Assessed REASON FOR VISIT Blood sugars from [facility] PLAN OF CARE VITAL SIGNS MEDICATIONS Medication Instructions Dosage Frequency Start Date End Date Duration Status Levemir Flexpen 100 UNIT/ML Subcutaneous 2 times a day 46 units 12h Active RESULTS No Results PROCEDURES No Known [...] [facility] Surgical History amputation, toe-right third toe ([facility]) 2013 Surgical [facility]2014 Surgical History heart cath [...]
--- OUTSIDE RECORDS SUMMARY | 2018-06-20 10:29 | XMS REPORT ---
Author Author SATINDER GOOD [facility] Address [address] [place] [address] Care Team Providers Care Research Microbiologist Name Role Phone SATINDER GOOD Unavailable PROBLEMS Type Condition ICD9-CM Code CYW28-YZ Code Onset Dates Condition Status SNOMED Code Problem S/P coronary artery stent placement Z95.5 Active 232671083 Problem Type 2 diabetes mellitus with diabetic peripheral angiopathy without gangrene E11.51 Active 378314959 Problem Depression F32.9 Active 84778706 Problem Type 2 diabetes mellitus with diabetic neuropathy E11.40 Active 13266827 Problem Hyperlipidemia, unspecified hyperlipidemia E78.5 Active 93387754 Problem Coronary artery disease involving osage coronary artery of osage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 Active 2258215531534 Problem Peripheral vascular disease I73.9 Active 292338468 Problem Chronic obstructive pulmonary disease, unspecified COPD type J44.9 Active 11830760 Problem Osteomyelitis of right foot, unspecified chronicity M86.9 Active 16683537 Problem CKD (chronic kidney disease) stage 3, GFR 30-59 ml/min N18.3 Active 506216751 Problem Type 2 diabetes mellitus with diabetic retinopathy, macular edema presence unspecified, with unspecified retinopathy severity E11.319 Active 28011984 Problem GERD without esophagitis K21.9 Active 716582489 Problem Bilateral low back pain without sciatica M54.5 Active 404407193 Problem Mixed hyperlipidemia E78.2 Active 727325209 Problem Frequent falls R29.6 Active 583499039 Problem Chronic kidney disease, unspecified N18.9 Active 136973284 Problem Other chronic pain G89.29 Active 72878671 Problem Chronic diarrhea K52.9 Active 642843375 Problem Hypercholesterolemia E78.0 Active 82496877 Problem 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 Active 212014212 Problem 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 Active 286368438 Problem Obesity (BMI 30.0-34.9) E66.9 Active 617133694801508 Problem Comprehensive diabetic foot examination, type 2 DM, encounter for E11.9 Active 03204725 Problem Uses walker Z99.89 Active 433204754 Problem Aphasia R47.01 Active 17572009 Problem Insulin long-term use Z79.4 Active 048564778 Problem Fatigue, unspecified type R53.83 Active 30551507 Problem Type 2 diabetes mellitus with foot ulcer E11.621 Active 240199141 Problem Pain in left shoulder M25.512 Active 17962844 Problem Type 2 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 Active 522846835 Problem Diabetes type 2, uncontrolled E11.65 Active 584772205 Problem Personal history of carotid stenosis Z86.79 Active 550447407 Problem Essential hypertension I10 Active 64259591 Problem CKD (chronic kidney disease), stage 3 (moderate) N18.3 Active 018699019 Problem Chronic pain syndrome G89.4 Active 664733811 Problem High risk medication use Z79.899 Active 237440774 ALLERGIES No Known Allergies ENCOUNTERS Encounter Location Date Diagnosis [address] [id number] Oct, [address] [id number] Oct, [address] [id number] Oct, Other chronic pain G89.[address] [id number] Sep, Other chronic pain G89.[address] [id number] Aug, CKD (chronic kidney disease), stage 3 (moderate) N18.3 ; Anemia, unspecified type D64.9 and Dilated pore of Ly L70.[address] [id number] Aug, Other chronic pain G89.29 ; Pain in left shoulder M25.512 ; High risk medication use Z79.899 ; Uses walker Z99.89 ; Diabetes type 2, uncontrolled E11.65 and Depression F32.9 [address] [place] [address] [id number] Aug, Chronic diarrhea K52.9 [place] [id number] [place] [address] [id number] Aug, Chronic diarrhea K52.9 ; Type 2 [...] E78.2 and Essential hypertension I10 [place] [id number] [place] [address] [id number] Aug, [place] [id number] [place] [address] [id number] Jul, Diabetes type 2, uncontrolled E11.65 [place] [id number] [place] [address] [id number] Jul, Diabetes type 2, uncontrolled E11.65 ; Type 2 diabetes mellitus with diabetic neuropathy E11.40 ; Insulin long-term use Z79.4 and Chronic obstructive pulmonary disease, unspecified COPD type J44.9 [place] [id number] [place] [address] [id number] Jun, [place] [id number] [place] [address] [id number] Jun, Essential hypertension I10 [place] [id number] [place] [address] [id number] Jun, Essential hypertension I10 [place] [id number] [place] [address] [id number] Jun, Type 2 diabetes mellitus with diabetic neuropathy E11.40 ; Type 2 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 ; S/P coronary artery stent placement Z95.5 ; Obesity (BMI 30.0-34.9) E66.9 ; Mixed hyperlipidemia E78.2 ; Frequent falls R29.6 ; Chronic obstructive pulmonary disease, unspecified COPD type J44.9 ; Essential hypertension I10 ; Insulin long-term use Z79.4 and High risk medication use Z79.899 [place] [id number] [place] [address] [id number] May, Diarrhea, unspecified type R19.7 ; Type 2 diabetes mellitus with diabetic neuropathy E11.40 ; Chronic obstructive pulmonary disease, unspecified COPD type J44.9 ; S/P coronary artery stent placement Z95.5 ; High risk medication use Z79.899 ; Essential hypertension I10 ; Encounter for administration of vaccine Z23 and Encounter for immunization Z23 [place] [address] [facility] [address] [id number] [id number] May, Chronic obstructive pulmonary disease, unspecified COPD type J44.9 [address] [place] [address] [id number] May, Type 2 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 ; Encounter for immunization Z23 ; Needs flu shot Z23 ; Comprehensive diabetic foot examination, type 2 DM, encounter for E11.9 and Obesity (BMI 30.0-34.9) E66.9 [address] [place] [address] [id number] May, [address] [place] [address] [id number] Apr, [place] [id number] [place] [address] [id number] Apr, Essential hypertension I10 and Aphasia R47.[address] [place] [address] [id number] Apr, [place] [id number] [place] [address] [id number] Apr, Type 2 diabetes mellitus with diabetic neuropathy E11.40 ; Frequent falls R29.6 ; Essential hypertension I10 ; S/P coronary artery stent placement Z95.5 ; High risk medication use Z79.899 ; Hyperlipidemia, unspecified hyperlipidemia E78.5 ; CKD (chronic kidney disease), stage 3 (moderate) N18.3 ; Pain in left shoulder M25.512 and Chronic obstructive pulmonary disease, unspecified COPD type J44.9 [place] [id number] [place] [address] [id number] Mar, [id number] [place] [address] [id number] Mar, Type 2 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 ; Leg wound, left, initial encounter S81.802A ; Hx of shoulder surgery Z98.890 ; Acute pain of left shoulder M25.512 and Fall, initial encounter W19.XXXA [facility] [place] [address], [place] [id number] Feb, Follow-up exam Z09 ; Hx of shoulder surgery Z98.890 ; Acute pain of left shoulder M25.512 ; Essential hypertension I10 and Leg wound, left, initial encounter S81.802A [facility] [id number] [place] [address] [id number] Feb, [facility] [place] [address] [place] [id number] [place] [address] [id number] Feb, [facility] [place] [address] [address] [id number] [place] [address] [id number] Feb, Chronic obstructive pulmonary disease, unspecified COPD type J44.9 [facility] [place] [id number] [place] [address] [id number] Feb, [facility] [place] [address] [place] [id number] [place] [address], [place] [id number] Jan, Generalized weakness R53.1 ; Exertional shortness of breath R06.02 and Fungal rash of trunk B36.9 [facility] [place] [id number] [place] [address] [id number] Jan, [facility] [place] [address] [place] [address] [id number] [place] [address] [id number] Jan, [facility] [place] [address] [id number] [place] [address] [id number] Jan, [facility] [place] [address] [id number] [place] [address] [id number] Jan, [facility] [place] [address] [place] [address] [id number] [place] [address] [id number] December, High risk medication use Z79.899 [facility] [place] [address] [place] [address] [id number] [place] [address] [id number] December, Type 2 diabetes mellitus with diabetic neuropathy E11.[address] [id number] [id number] December, High risk medication use Z79.[address] [id number] [id number] Nov, Diabetes type 2, uncontrolled E11.65 [address] [place] [address] [id number] Nov, Medicare annual wellness visit, initial Z00.00 ; Bilateral low back pain without sciatica M54.5 ; Pain in left shoulder M25.512 ; Chronic pain syndrome G89.4 ; Type 2 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 ; High risk medication use Z79.899 and Encounter for immunization Z23 [address] [id number] Nov, Type 2 diabetes mellitus with diabetic neuropathy E11.40 ; Coronary artery disease involving osage coronary artery of osage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 and CKD (chronic kidney disease), stage 3 (moderate) N18.[address] [id number][place] [id number] Oct, Type 2 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 ; Chronic pain syndrome G89.4 ; Chronic obstructive pulmonary disease, unspecified COPD type J44.9 ; Chronic kidney disease, unspecified N18.9 and Rash R21 [address] [id number][place] [id number] Oct, Type 2 diabetes mellitus with diabetic neuropathy E11.[address] [id number][place] [id number] Oct, Rash R21 and Impetigo L01.[id number] [place] [address] [id number] Oct, Chronic pain syndrome G89.[address] [id number][place] [id number] Oct, [address] [place] [address] [id number] Sep, Sebaceous cyst L72.[address] [id number][place] [id number] Sep, 2016 Sebaceous cyst L72.3 [place] [address] [place] [id number] [place] [address] [id number] Sep, Chronic pain syndrome G89.4 ; Pain in left shoulder M25.512 and Effusion of olecranon bursa, left M25.422 [facility] [address] [id number] [address] Aug, [facility] [address] [place] [id number] [place] [address] [id number] Aug, [place] [id number] [place] [address] [id number] Aug, Mixed hyperlipidemia E78.2 and Chronic kidney disease, unspecified N18.9 [place] [id number] [place] [address] [id number] Jul, Type 2 diabetes mellitus with diabetic neuropathy E11.40 ; Essential hypertension I10 and S/P coronary artery stent placement Z95.5 [place] [id number] [place] [address] [id number] Jul, 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 [place] [id number] [place] [address] [id number] Jul, Diabetes type 2, uncontrolled E11.65 ; Essential hypertension I10 and 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 [address] [place] [address] [id number] Jul, [place] [id number] [place] [address] [id number] Jul, [address] [place] [address] [id number] Jul, [place] [id number] [place] [address] [id number] Jul, Chronic obstructive pulmonary disease, unspecified COPD type J44.9 [address] [place] [address] [id number] Jun, CKD (chronic kidney disease), stage 3 (moderate) N18.3 and Anemia, unspecified type D64.9 [address] [place] [address] [id number] Jun, Type 2 diabetes mellitus with diabetic neuropathy E11.40 ; Decreased GFR R94.4 ; CKD (chronic kidney disease), stage 3 (moderate) N18.3 and Decreased hemoglobin R71.0 [place] [id number] [place] [address] [id number] Jun, CKD (chronic kidney disease), stage 3 (moderate) N18.3 and Anemia, unspecified type D64.9 [address] [place] [address] [id number] Jun, Type 2 diabetes mellitus with diabetic neuropathy E11.40 ; Decreased GFR R94.4 and CKD (chronic kidney disease), stage 3 (moderate) N18.3 [address] [place] [address] [id number] Jun, Type 2 diabetes mellitus with diabetic neuropathy E11.40 and Essential hypertension I10 [place] [id number] [place] [address] [id number] Jun, [place] [id number] [place] [address] [id number] Jun, [place] [id number] [place] [address] [id number] Jun, Type 2 diabetes mellitus with diabetic neuropathy E11.40 ; S/P coronary artery stent placement Z95.5 ; Chronic obstructive pulmonary disease, unspecified COPD type J44.9 ; Essential hypertension I10 ; GERD without esophagitis K21.9 ; Peripheral vascular disease I73.9 ; Mixed hyperlipidemia E78.2 and Hospital discharge follow-up Z09 [address] [place] [address] [id number] Jun, [place] [id number] [place] [address] [id number] May, Depression F32.9 and Hyperlipidemia, unspecified hyperlipidemia E78.5 [facility] [address] [place] [id number] [place] [phone] May, [place] [id number] [place] [address] [id number] May, [address] [place] [address] [id number] May, Essential hypertension I10 ; Chronic pain syndrome G89.4 ; Pain in left shoulder M25.512 ; High risk medication use Z79.899 ; Chronic obstructive pulmonary disease, unspecified COPD type J44.9 ; S/P coronary artery stent placement Z95.5 ; Personal history of carotid stenosis Z86.79 ; Hyperlipidemia, unspecified hyperlipidemia E78.5 ; Decreased GFR R94.4 and Type 2 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 [address] [place] [address] [id number] May, Hemoglobin decreased R71.0 and Decreased GFR R94.4 [place] [id number] [place] [address] [id number] May, Hemoglobin decreased R71.0 and Decreased GFR R94.4 [place] [id number] [place] [address] [id number] May, [place] [id number] [place] [address] [id number] May, [place] [id number] [place] [address] [id number] Apr, [place] [id number] [place] [address] [id number] Apr, Type 2 diabetes mellitus with foot [...] unspecified hyperlipidemia E78.5 and Essential hypertension I10 [address] [place] [address] [id number] Apr, [address] [place] [address] [id number] Mar, [address] [id number] Mar, [facility] [address] [place] [address] [phone] Mar, [facility] [id number] [place] [address] [id number] Feb, [facility] [id number] [place] [address] [id number] Feb, [facility] [address] [place] [id number] [place] [address] [id number] Feb, [facility] [id number] [place] [address] [id number] Jan, Type 2 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 ; Hypercholesterolemia E78.0 ; Chronic pain syndrome G89.4 ; Pain in left shoulder M25.512 and High risk medication use Z79.899 [facility] [id number] [place] [address] [id number] Jan, [facility] [address] [place] [id number] [place] [address] [id number] Jan, [facility] [id number] [place] [address] [id number] December, [facility] [address] [place] [id number] [place] [address] [id number] December, [facility] [address]005[address]100[place], [place] [address] December, Diabetes type 2, uncontrolled E11.65 ; Type 2 diabetes mellitus with diabetic neuropathy E11.40 ; Peripheral vascular disease I73.9 ; 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 and 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 [facility] [id number], [place] [id number] Nov, [facility] [id number], [place] [id number] Nov, [facility] [id number], [place] [id number] Nov, [facility] [address] [place] [id number] [place] [address] [id number] Nov, Right hip pain M25.551 [facility] [address] [facility] [id number], [place] [address] Nov, [facility] [address] [facility] [id number], [place] [address] Nov, [facility] [id number] [place] [address] [id number] Nov, Diabetes with neurological manifestations, type II or unspecified type, 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.60 [facility] [id number] [place] [address] [id number] Nov, [facility] [address] [place] [id number] [place] [address] [id number] Nov, [facility] [address] [place] [id number] [place] [address] [id number] Oct, Diabetes type 2, uncontrolled E11.65 ; Type 2 diabetes mellitus with diabetic neuropathy, unspecified E11.40 and Low back pain M54.5 [facility] [address] [place] [id number] [place] [address] [id number] Oct, [facility] [id number] [place] [address] [id number] Oct, [facility] [address] [id number] [place] [address] [id number] Oct, [facility] [id number] [place] [address] [id number] Sep, [facility] [address] [place] [id number] [place] [address] [id number] Sep, [facility] [address]00565100[place], [place] [address] Sep, [facility] [id number] [place] [address] [id number] Sep, [facility] [address] [place] [id number] [place] [address] [id number] Sep, [facility] [id number], [place] [id number] Aug, 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 [facility] [address] [id number], [place] [id number] Aug, [facility] [address] [place] [id number], [place] [id number] Aug, Allergic rhinitis due to pollen J30.1 [facility] [address] [facility] [address] [id number], [place] [id number] Jul, [facility] [id number], [place] [id number] Jul, [facility] [id number] [place] [address] [id number] Jul, [facility] [id number] [place] [address] [id number] Jun, [place] [id number], [place] [id number] Jun, Thumb tendonitis M77.8 and Ringing in ear, bilateral H93.13 [facility] [id number][place] [phone] Jun, [facility] [address] [facility] [id number], [place] [id number] May, [place] [address] [place] [id number] [place] [address] [phone]- [phone] May, [place] [address] [place] [address] 02090- 7618 May, Pre-op evaluation Z01.818 ; Encounter for immunization Z23 ; Type 2 diabetes mellitus with diabetic peripheral angiopathy without gangrene E11.51 ; Insulin long-term use Z79.4 ; Type 2 diabetes mellitus with foot ulcer E11.621 ; Peripheral vascular disease I73.9 ; Coronary artery disease involving osage coronary artery of osage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 ; S/P coronary artery stent placement Z95.5 ; Osteomyelitis of right foot, unspecified chronicity M86.9 and Chronic obstructive pulmonary disease, unspecified COPD type J44.9 [facility] [address] [place] [address] [id number] [place] [address] 85677- [phone] May, [facility] [address]005[address], [place] [id number] May, [facility] [address] [place] [id number] [place] [address] [id number] May, Diabetes type 2, uncontrolled E11.65 ; Encounter for immunization Z23 ; Osteopenia M85.80 and Allergic rhinitis due to pollen J30.1 [facility] [address] [place] [id number] [place] [address] [id number] May, Lumbago 724.2 [place] [address] [place] [id number] [place] [address] [id number] Apr, [facility] [id number] [place] [address] [id number] Apr, [facility] [address] [place] [id number] [place] [address] [id number] Apr, [facility] [address] [place] [id number] [place] [address] [id number] Apr, [facility] [id number] [place] [address] [phone]- [phone] Mar, [facility] [address] [place] [address] [id number] [place] [address] [id number] Mar, [facility] [address] [place] [address] [id number] [place] [address] [id number] Mar, [facility] [address] [place] [address] [id number] [place] [address] [id number] Mar, [facility] [address] [id number] [place] [address] [id number] Mar, [facility] [id number] [place] [address] [phone]- [phone] Mar, [facility] [id number] [place] [address] [id number] Mar, [facility] [id number] [place] [address] [id number] Mar, Diabetes with neurological manifestations, type II or unspecified type, 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.60 and Severe obesity (BMI 35.0-35.9 with comorbidity) 278.01 [facility] [id number], [place] [id number] Mar, [facility] [address]005[address], [place] [address] Mar, [facility] [address]00565100[place], [place] [address] Feb, [facility] [place] [address] [id number], [place] [id number] Feb, [facility] [place] [address] [id number], [place] [id number] Feb, [facility] [place] [id number], [place] [id number] Feb, Diabetes with neurological manifestations, type II or unspecified type, 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.60 [facility] [place] [id number], [place] [phone] Feb, [facility] [address]00565100[place], [place] [address]- 25[address] Feb, [facility] [place] [address] [id number], [place] [id number] Feb, [facility] [place] [id number], [place] [id number] Feb, Follow up V67.9 ; Diabetes with neurological manifestations, type II or unspecified type, 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.60 and Congestive heart failure 428.0 [facility] [place] [id number], [place] [id number] Jan, [facility] [id number], [place] 399197864 Jan, [facility] [place] [address] [id number][place] [address] Jan, [facility] [place] [id number][place] [address]13[address] December, Otitis media with effusion 381.4 ; Left arm numbness 782.0 and Osteoporosis 733.00 [facility] [address] [id number], [place] [id number] December, [facility] [address] [id number], [place] [address]59877[place] Nov, [facility] [address] [id number][place] [address]304 Nov, Serous otitis media 381.4 and Lumbago 724.2 [facility] [place] [facility] [id number], [place] [address] 14 Nov, 2014 [facility] [place] [facility] [id number], [place] [address]- [address] Nov, [facility] [id number], [place] 537370179 Oct, [facility] [place] [facility] [address]00565100[place], [place] [address]- [address] Oct, [facility] [id number], [place] [address]49[address]182 Oct, [facility] [place] [facility] [address]00565100[place], [place] [address]- 6746 Oct, [facility] [id number], [place] 980451792 Oct, [facility] [place] [facility] [address]00565100[place], [place] [address]- 7026 Oct, [facility] [place] [facility] [id number], [place] [address]- [address]26 Sep, [facility] [place] [facility] [address] [id number], [place] [address]- [address] Sep, [facility] [address] [id number], [place] 819567977 Sep, [facility] [place] [facility] [address] [id number], [place] [address]- [address]296 Sep, [facility] [address] [id number], [place] 853308732 Aug, [facility] [place] [facility] [address] [id number], [place] [address]- 2756 Aug, [facility] [address] [id number], [place] 728649519 Aug, [facility] [place] [facility] [address] [id number] [place] [address]- [address]24 Aug, [facility] [address] [id number] [place] 0324[place]708 Jul, [facility] [place] [facility] [address] [facility] [id number] [place] [address]- 9246 Jul, [facility] [address] [id number] [place] [id number] Jul, [facility] [place] [facility] [address] [id number] [place] [address]- 1416 Jul, [facility] [address] [id number] [place] [id number] Jul, [facility] [place] [facility] [address] [facility] [id number], [place] [address]- 6[address] Jul, [facility] [address] [id number], [place] [id number] Jun, [facility] [place] [facility] [address] [facility] [id number], [place] [address]- 6261 Jun, [facility] [address] [facility] [id number], [place] [id number] May, [facility] [place] [facility] [address] [facility] [id number], [place] [address]- 3760 May, [facility] [address] [id number], [place] [id number] May, [facility] [place] [facility] [address] [facility] [id number], [place] [address]- 0303 May, [facility] [address] [id number] [place] 669009332 May, [facility] [place] [facility] [address] [facility] [id number], [place] [address]- 6693 May, [facility] [address] [id number] [place] [id number] May, [facility] [address] [id number], [place] [id number] May, [facility] [place] [facility] [address] [facility] [id number], [place] [address]- 8164 May, [facility] [place] [facility] [address] [facility] [id number], [place] 205224- 3501 May, [facility] [address] [facility] [id number], [place] 905420600 May, [facility] [place] [facility] [address] [facility] [id number], [place] [address]- 9015 May, [facility] [place] [facility] [address] [facility] [id number], [place] [address]- 3335 Apr, [facility] [address] [facility] [id number], [place] [id number] Apr, [facility] [place] [facility] [address] [facility] [id number], [place] [address]- 2767 Apr, [facility] [address] [id number], [place] [id number] Apr, [facility] [address] [facility] [id number], [place] 423500045 Apr, [facility] [place] [facility] [address] [facility] [id number], [place] [address]- 3653 Apr, [facility] [place] [facility] [address] [facility] [id number], [place] [address]- 0371 Apr, [facility] [address] [facility] [id number], [place] 922935949 Apr, [facility] [place] [facility] [address] [facility] [id number], [place] [address]- 5401 Apr, [facility] [address] [facility] [id number], [place] 005188599 Apr, [facility] [place] [facility] [address] [facility] [id number], [place] [address]- 0183 Apr, [facility] [address] [facility] [id number], [place] 101598652 Apr, [facility] [place] [facility] [address] [facility] [id number], [place] [address]- 7940 Apr, [facility] [address] [id number] [place] [id number] Apr, [facility] [place] [facility] [address] [facility] [id number], [place] [address]- 0326 Apr, [facility] [address] [facility] [id number] [place] [id number] Apr, [facility] [place] [facility] [address] [facility] [id number], [place] [address]- 5459 Apr, [facility] [address] [id number] [place] [id number] Apr, [facility] [place] [facility] [address] [facility] [id number], [place] [address]- 5318 Apr, [facility] [address] [facility] [id number] [place] 078185344 Mar, [facility] [place] [facility] [address] [facility] [id number], [place] [address]- 6376 Mar, [facility] [address] [id number] [place] [id number] Mar, [facility] [address] [id number] [place] [id number] Mar, [facility] [place] [facility] [address] [facility] [id number], [place] [address]- 4028 Mar, [facility] [place] [facility] [address] [facility] [id number], [place] [address]- 3939 Mar, [facility] [address] [id number] [place] [id number] Mar, [facility] [place] [facility] [address] [facility] [id number], [place] [address]- 0680 Mar, [facility] [address] [facility] [id number] [place] [id number] Mar, [facility] [place] [facility] [address] [facility] [id number], [place] [address]- 2174 Mar, [facility] [address] [id number] [place] [id number] Mar, [facility] [place] [facility] [address] [id number] [place] [address]- 2481 Mar, [facility] [address] [id number] [place] [id number] Mar, [facility] [place] [facility] [address] [id number] [place] [address]- 5682 Mar, [facility] [address] [id number] [place] [id number] Mar, [facility] [place] [facility] [address] [id number] [place] [address]- 9151 Mar, [facility] [address] [id number] [place] [id number] Mar, [facility] [place] [facility] [address] [facility] [id number] [place] [address]- 8764 Mar, [facility] [address] [id number] [place] [id number] Mar, [facility] [place] [facility] [address] [facility] [id number] [place] [address]- 2833 Mar, [facility] [address] [id number] [place] 850838215 Feb, [facility] [place] [facility] [address] [facility] [id number] [place] [address]- 0265 Feb, [facility] [address] [id number] [place] 860347814 Feb, [facility] [place] [facility] [address] [id number] [place] [address]- 5881 Feb, [facility] [address] [id number] [place] [id number] Feb, [facility] [place] [facility] [address] [id number] [place] [address]- 9952 Feb, [facility] [address] [id number] [place] [id number] Feb, [facility] [place] [facility] [address] [id number] [place] [address]- 4332 Feb, [facility] [address] [id number] [place] [id number] Feb, [facility] [place] [facility] [address] [facility] [id number] [place] [address]- 2302 Feb, [facility] [address] [id number] [place] 054952727 Feb, [facility] [place] [facility] [address] [id number] [place] [address]- 5380 Feb, [facility] [address] [id number] [place] [id number] Feb, [facility] [place] [facility] [address] [facility] [id number] [place] [address]- 4804 Feb, [facility] [address] [id number] [place] 250310150 Feb, [facility] [place] [facility] [address] [facility] [id number], [place] [address]- 2426 Feb, [facility] [address] [id number] [place] 112344789 Feb, [facility] [place] [facility] [address] [facility] [id number] [place] [address]- 7615 Feb, [facility] [address] [id number] [place] [id number] Feb, [facility] [address] [id number] [place] [id number] Feb, [facility] [place] [facility] [address] [facility] [id number] [place] [address]- 1655 Feb, [facility] [place] [facility] [address] [facility] [id number] [place] [address]- 6670 Feb, [facility] [address] [id number] [place] 669603584 Feb, [facility] [place] [facility] [address] [facility] [id number] [place] [address]- 3100 Feb, [facility] [address] [id number] [place] [id number] Feb, [facility] [place] [facility] [address] [id number] [place] [address]- 6441 Feb, [facility] [address] [id number] [place] [id number] Feb, [facility] [place] [facility] [address] [facility] [id number] [place] [address]- 7952 Feb, [facility] [address] [id number] [place] [id number] Jan, [facility] [place] [facility] [address] [id number] [place] [address]- 5783 Jan, [facility] [place] [facility] [address] [facility] [id number] [place] [address]- 9612 Jan, [facility] [place] [facility] [address] [facility] [id number], [place] [address]- 5714 Jan, [facility] [place] [facility] [address] [facility] [id number], [place] [address]- 1692 Jan, [facility] [place] [facility] [address] [facility] [id number], [place] [address]- 9106 Jan, [facility] [address] [facility] [id number][place] 598911478 Jan, [facility] [place] [facility] [address] [facility] [id number], [place] [address]- 9718 Jan, [facility] [place] [facility] [address] [facility] [id number], [place] [address]- 8439 Jan, [facility] [place] [facility] [address] [facility] [id number][place] [address]- 0059 Jan, [facility] [address] [id number] [place] [id number] Jan, [facility] [address] [id number] [place] 540333157 Jan, [facility] [place] [facility] [address] [facility] [id number], [place] 68359008- 9941 Jan, [facility] [place] [facility] [address] [id number] [place] [address]- 2880 Jan, [facility] [address] [id number] [place] 804141104 Jan, [facility] [address] [id number] [place] 011164563 Jan, [facility] [place] [facility] [address] [id number] [place] [address]- 4366 Jan, [facility] [place] [facility] [address] [id number] [place] [address]- 4963 Jan, [facility] [place] [facility] [address] [id number] [place] [address]- 1606 Jan, [facility] [address] [id number] [place] [id number] December, [facility] [place] [facility] [address] [facility] [id number] [place] [address]- 7456 December, [facility] [place] [facility] [address] [facility] [id number], [place] [address]- 0531 December, [facility] [address] [id number], [place] 484323289 December, [facility] [place] [facility] [address] [id number], [place] [address]- 2796 December, [facility] [address] [id number] [place] [id number] December, [facility] [place] [facility] [address] [id number], [place] [address]- 2546 December, [facility] [address] [id number] [place] [id number] December, [facility] [place] [facility] [address] [facility] [id number] [place] [address]- 8886 December, [facility] [address] [id number] [place] 717907440 Nov, [facility] [place] [facility] [address] [facility] [id number], [place] [address]- 9058 Nov, [facility] [address] [facility] [id number] [place] 765240743 Nov, [facility] [place] [facility] [address] [facility] [id number], [place] [address]- 5664 Nov, [facility] [place] [facility] [address] [facility] [id number], [place] [address]- 9746 Nov, [facility] [place] [facility] [address] [facility] [id number], [place] [address]- 5672 Nov, [facility] [place] [facility] [address] [facility] [id number] [place] [address]- 4859 Oct, [facility] [address] [facility] [id number], [place] 171525922 Oct, [facility] [place] [facility] [address]00565[address], [place] [address]- 5538 Oct, [facility] [address] [facility] [id number], [place] 408493361 Oct, [facility] [place] [facility] [address] [facility] [id number], [place] [address]- 8295 Oct, [facility] [address] [facility] [id number], [place] 301067084 Sep, [facility] [place] [facility] [address] [facility] [id number], [place] [address]- 9949 Sep, [facility] [address] [facility] [id number], [place] 111011412 Aug, [facility] [place] [facility] [address] [facility] [id number], [place] [address]- 3271 Aug, [facility] [address] [facility] [id number], [place] 824001946 Aug, [facility] [place] [facility] [address] [facility] [id number], [place] [address]- 4108 Aug, [facility] [place] [facility] [address] [facility] [id number], [place] [address]- 6212 Aug, [facility] [address] [id number], [place] 881223966 Aug, [facility] [place] [facility] [address] [facility] [id number], [place] [address] 2546 Aug, [facility] [place] [facility] [address] [facility] [id number], [place] [address]- 2546 Aug, [facility] [address] [facility] [id number], [place] 599933678 Aug, [facility] [place] [facility] [address] [facility] [id number], [place] [address]- 2546 Aug, [facility] [address] [facility] [id number], [place] 019591585 Jul, [facility] [place] [facility] [address]00565[address], [place] [address]- 8996 Jul, [facility] [address] [id number], [place] [id number] Jul, [facility] [place] [facility] [address]00565100[place], [place] [address]- 3545 Jul, [facility] [address] [facility] [id number], [place] 990764991 Jul, [facility] [place] [facility] [address] [id number], [place] [address]- 2096 Jul, [facility] [address] [facility] [id number], [place] 054793416 Jul, [facility] [place] [facility] [address] [id number], [place] [address]- 3576 Jul, [facility] [address] [facility] [id number], [place] 132082673 Jun, [facility] [place] [facility] [address] [facility] [id number], [place] [address]- 2546 Jun, [facility] [address] [facility] [id number], [place] 900979113 Jun, [facility] [place] [facility] [address] [id number], [place] [address]- 6472 Jun, [facility] [address] [facility] [id number] [place] [address]- 2548 Jun, [facility] [address] [facility] [id number], [place] [address]- 2546 Jun, [facility] [address] [id number] [place] 199790551 Apr, [facility] [place] [address] [id number] [place] 95[place]36945 Mar, [facility] [place] [address] [id number] [place] 768795308 Mar, [facility] [place] [address] [id number] [place] 506215205 Feb, [facility] [place] [address] [id number] [place] 308079034 Feb, [facility] [address] [id number] [place] 202650791 Feb, [facility] [address] [id number] [place] 210698648 December, [facility] [address] [id number] [place] 053036545 December, [facility] [address] [facility] [id number], [place] [address]- 2546 December, [facility] [address] [id number] [place] [id number] December, [facility] [address] [id number] [place] 420080495 December, [facility] [address] [id number] [place] 861824227 Nov, [facility] [address] [id number] [place] 491271125 Nov, [facility] [address] [id number] [place] 925503638 Nov, [facility] [address] [id number] [place] 744792696 Oct, [facility] [address] [id number] [place] 147495710 Sep, [facility] [address] [id number], [place] 552372969 Aug, [facility] [address] [facility] [id number], [place] [address]- 2546 Aug, [facility] [address] [id number], [place] [id number] Aug, [facility] [address] [id number], [place] 447512502 Jul, [facility] [address] [facility] [id number], [place] [address]- 2546 Jul, [facility] [address] [id number], [place] 638251905 Jul, [facility] [address] [facility] [id number], [place] [address]- 4065 Jul, [facility] [place] [address] [id number], [place] 075457495 Jun, [facility] [address]00565100[place], [place] [address]- 6112 Jun, [facility] [place] [address] [id number], [place] 508349742 May, [facility] [address] [facility] [id number], [place] [address]- 9718 May, [facility] [place] [address] [id number], [place] [id number] May, [facility] [address] [facility] [id number], [place] [address]- 0291 May, [facility] [address] [id number], [place] [id number] Apr, [facility] [address] [id number], [place] 121208527 Apr, [facility] [address] [id number], [place] 692857951 Mar, [facility] [address] [id number], [place] [id number] Mar, [facility] [place] [address] [id number] [place] [id number] Feb, [facility] [place] [address] [id number] [place] 715632218 Feb, [facility] [place] [address] [id number] [place] [id number] Jan, [facility] [place] [address] [id number] [place] [id number] Jan, [facility] [place] [address] [id number] [place] [id number] Jan, [facility] [place] [address] [id number] [place] [id number] Jan, [facility] [place] [address] [id number] [place] [id number] December, [facility] [place] [address] [id number] [place] [id number] December, [facility] [address] [facility] [id number], [place] [address] Nov, [facility] [address] [id number] [place] [id number] Nov, [facility] [place] [address] [id number] [place] [id number] Nov, [facility] [place] [address] [id number] [place] [id number] Nov, [facility] [place] [address] [id number] [place] [id number] Nov, [facility] [address] [facility] [id number], [place] [address] Oct, [facility] [address] [facility] [id number], [place] [address] Oct, [facility] [address] [id number] [place] [id number] Oct, [facility] [address] [id number] [place] [id number] Oct, [facility] [place] [address] [id number] [place] [id number] Oct, [facility] [place] [address] [id number] [place] [id number] Oct, [facility] [place] [address] [id number] [place] [id number] Oct, [facility] [place] [address] [id number] [place] [id number] Oct, [facility] [place] [address] [id number] [place] [id number] Oct, [facility] [address] [facility] [id number], [place] [address] Oct, [facility] [place] [address] [id number] [place] [id number] Sep, [facility] [place] [address] [id number] [place] [id number] Sep, [facility] [place] [address] [id number] [place] [id number] Aug, [facility] [place] [address] [id number] [place] [id number] Aug, [facility] [id number] [address] Jul, [facility] [id number] [place] [id number] Jul, [facility] [id number] [address] Jul, [facility] [id number] [place] [address] Jul, [facility] [id number], [place] [address] Jul, [facility] [id number] [place] [address] Jul, [facility] [id number], [place] [address] Jul, [facility] [id number] [place] [address] Jul, [facility] [address] [facility] [id number], [place] [address] Jul, [facility] [address] [facility] [id number], [place] [address] Jul, [facility] [address] [facility] [id number], [place] [address] Jul, [facility] [address] [id number], [place] [address] Jul, [facility] [address] [facility] [id number], [place] [address] Jul, [facility] [address] [facility] [id number], [place] [address] Jul, IMMUNIZATIONS Vaccine Route Administration Date Status TDAP (BOOSTRIX) IM Intramuscular December 14, 2016 Administered SOCIAL HISTORY Never Assessed REASON FOR VISIT Medicare physical. bam Onofre PLAN OF CARE Activity Details Follow Up annually for preventive care, sooner for chronic health maintenance Reason: VITAL SIGNS Height 69 in 2016-12-14 Weight 238 lbs 2016-12-14 Temperature 97.8 degrees Fahrenheit 2016-12-14 Heart Rate 82 bpm 2016-12-14 Respiratory Rate 16 2016-12-14 BMI 35.14 kg/m2 2016-12-14 Blood pressure systolic 120 mmHg 2016-12-14 Blood pressure diastolic 76 mmHg 2016-12-14 MEDICATIONS Medication Instructions Dosage Frequency Start Date End Date Duration Status Aspirin Adult Low Strength 81 MG Orally Once a day 1 tablet 24h Active Victoza 18 MG/3ML Subcutaneous Once a day 1.8 mg 24h Active Omeprazole 20 mg Orally Once a day 1 capsule 24h Active ProAir HFA 90 mcg/actuation Inhalation 4 times a day 2 puffs as needed 6h Active Blood Glucose Test Strip Test Strips test blood sugar Feb, Active Lexapro 10 mg Orally Once a day 1 tablet 24h Active Levemir Flexpen 100 UNIT/ML Subcutaneous 2 times a day 35 units 12h Active Folic Acid 1 MG Orally Once a day 1 tablet 24h 20 Jul, 2016 Active Nitroglycerin 0.4 MG Active Atorvastatin Calcium 40 mg Orally Once a day 1 tablet 24h Active Hydrocodone-Acetaminophen 7.5-325 MG Orally Once a day at bedtime 1 tablet as needed 24 Jan, 2016 0 Active Lasix 20 mg Orally Once a day 1/2 tab 24h Active Cetirizine HCl 10 mg Orally Once a day 1 tablet as needed 24h 11 Nov, 2015 Active Triamcinolone Acetonide 0.5 % Externally Twice a day 1 application to affected area 12h 15 Oct, 2016 Active Calcium + D3 600-200 MG-UNIT Orally 2 times a day 1 tablet 12h Active Symbicort 160-4.5 mcg/actuation Inhalation Twice a day (morning and evening) inhale 2 puffs Active Carvedilol 3.125 MG Orally 2 times a day 1 tablet 12h Active Victoza 18 MG/3ML INJECT (1.8 MG) ONCE DAILY. Active Lancets - subcutaneously 3 times a day as directed 8h 07 Jun, 2016 Active Zyrtec Allergy 10 MG ...TAKE ONE (1) TABLET BY MOUTH DAILY NEEDED... Active RESULTS No Results PROCEDURES Procedure Date Ordered Result Body Site ANNUAL WELLNES VST; PERSNL PPS INIT December 14, 2016 TDAP (BOOSTRIX) December 14, 2016 SINGLE IMMUNIZATION ADMIN December 14, 2016 INSTRUCTIONS MEDICATIONS ADMINISTERED No Known Medications [...] in the future. Medical History 05/26/17 noted, fpc has ended and they feel he is [...] History Left eye retinal eye repair [facility]) 06/2014 Surgical History amputation, toe-right third toe ([facility]) 2013 Surgical History Right eye retinal eye repair ([facility]) 09/2014 Surgical History heart cath [...]
[2018-06-20 10:30] VITALS: BP 174/96
--- OUTSIDE RECORDS SUMMARY | 2018-06-20 10:30 | XMS REPORT ---
Author Author SATINDER GOOD [facility] Address [address] [place] [address] Care Team Providers Care Film Developer Name Role Phone SATINDER GOOD Unavailable PROBLEMS Type Condition ICD9-CM Code CST95-ER Code Onset Dates Condition Status SNOMED Code Problem S/P coronary artery stent placement Z95.5 Active 412212707 Problem Type 2 diabetes mellitus with diabetic peripheral angiopathy without gangrene E11.51 Active 223131517 Problem Depression F32.9 Active 41010721 Problem Type 2 diabetes mellitus with diabetic neuropathy E11.40 Active 64221826 Problem Hyperlipidemia, unspecified hyperlipidemia E78.5 Active 25145034 Problem Coronary artery disease involving [place] coronary artery of [place]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 Active 4420140020391 Problem Peripheral vascular disease I73.9 Active 021298718 Problem Chronic obstructive pulmonary disease, unspecified COPD type J44.9 Active 74394411 Problem Osteomyelitis of right foot, unspecified chronicity M86.9 Active 03907939 Problem CKD (chronic kidney disease) stage 3, GFR 30-59 ml/min N18.3 Active 696466871 Problem Type 2 diabetes mellitus with diabetic retinopathy, macular edema presence unspecified, with unspecified retinopathy severity E11.319 Active 18573593 Problem GERD without esophagitis K21.9 Active 953354657 Problem Bilateral low back pain without sciatica M54.5 Active 332808547 Problem Mixed hyperlipidemia E78.2 Active 444476985 Problem Frequent falls R29.6 Active 636763749 Problem Chronic kidney disease, unspecified N18.9 Active 955460769 Problem Other chronic pain G89.29 Active 60152934 Problem Chronic diarrhea K52.9 Active 173704714 Problem Hypercholesterolemia E78.0 Active 76107308 Problem 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 Active 794741597 Problem 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 Active 912275342 Problem Obesity (BMI 30.0-34.9) E66.9 Active 798602576244314 Problem Comprehensive diabetic foot examination, type 2 DM, encounter for E11.9 Active 92037473 Problem Uses walker Z99.89 Active 351851675 Problem Aphasia R47.01 Active 55707920 Problem Insulin long-term use Z79.4 Active 526718818 Problem Fatigue, unspecified type R53.83 Active 21887335 Problem Type 2 diabetes mellitus with foot ulcer E11.621 Active 948569634 Problem Pain in left shoulder M25.512 Active 88350859 Problem Type 2 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 Active 977257165 Problem Diabetes type 2, uncontrolled E11.65 Active 018937424 Problem Personal history of carotid stenosis Z86.79 Active 656341248 Problem Essential hypertension I10 Active 57012931 Problem CKD (chronic kidney disease), stage 3 (moderate) N18.3 Active 107981480 Problem Chronic pain syndrome G89.4 Active 550742018 Problem High risk medication use Z79.899 Active 317612694 ALLERGIES No Information ENCOUNTERS Encounter Location Date Diagnosis [place] [id number] [place] [address] [id number] Sep, Other chronic pain G89.29 [place] [address] [place] [address] [id number] Aug, CKD (chronic kidney disease), stage 3 (moderate) N18.3 ; Anemia, unspecified type D64.9 and Dilated pore of Ly L70.8 [place] [address] [place] [address] [id number] Aug, Other chronic pain G89.29 ; Pain in left shoulder M25.512 ; High risk medication use Z79.899 ; Uses walker Z99.89 ; Diabetes type 2, uncontrolled E11.65 and Depression F32.[address] [place] [address] [id number] Aug, Chronic diarrhea K52.[address] [id number] Aug, Chronic diarrhea K52.9 ; Type 2 diabetes mellitus with diabetic neuropathy E11.40 ; Diabetes type 2, uncontrolled E11.65 ; Insulin long-term use Z79.4 ; Chronic obstructive pulmonary disease, unspecified COPD type J44.9 ; Chronic pain syndrome G89.4 ; Pain in left shoulder M25.512 ; Uses walker Z99.89 ; S/P coronary artery stent placement Z95.5 ; Mixed hyperlipidemia E78.2 and Essential hypertension I10 [facility] [id number] [place] [address] [id number] Aug, [place] [id number] [place] [address] [id number] Jul, Diabetes type 2, uncontrolled E11.65 [facility] [id number] [place] [address] [id number] Jul, Diabetes type 2, uncontrolled E11.65 ; Type 2 diabetes mellitus with diabetic neuropathy E11.40 ; Insulin long-term use Z79.4 and Chronic obstructive pulmonary disease, unspecified COPD type J44.9 [place] [address] [place] [address] [id number] Jun, [place] [address] [place] [address] [id number] Jun, Essential hypertension I10 [address] [place] [address] [id number] Jun, Essential hypertension I10 [place] [address] [place] [address] [id number] Jun, Type 2 diabetes mellitus with diabetic neuropathy E11.40 ; Type 2 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 ; S/P coronary artery stent placement Z95.5 ; Obesity (BMI 30.0-34.9) E66.9 ; Mixed hyperlipidemia E78.2 ; Frequent falls R29.6 ; Chronic obstructive pulmonary disease, unspecified COPD type J44.9 ; Essential hypertension I10 ; Insulin long-term use Z79.4 and High risk medication use Z79.899 [address] [place] [address] [id number] May, Diarrhea, unspecified type R19.7 ; Type 2 diabetes mellitus with diabetic neuropathy E11.40 ; Chronic obstructive pulmonary disease, unspecified COPD type J44.9 ; S/P coronary artery stent placement Z95.5 ; High risk medication use Z79.899 ; Essential hypertension I10 ; Encounter for administration of vaccine Z23 and Encounter for immunization Z23 [address] [id number] [id number] May, Chronic obstructive pulmonary disease, unspecified COPD type J44.9 [facility] [address] [id number] May, Type 2 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 ; Encounter for immunization Z23 ; Needs flu shot Z23 ; Comprehensive diabetic foot examination, type 2 DM, encounter for E11.9 and Obesity (BMI 30.0-34.9) E66.9 [address] [place] [address] [id number] May, [place] [address] [place] [address] [id number] Apr, [place] [address] [place] [address] [id number] Apr, Essential hypertension I10 and Aphasia R47.[address] [place] [address] [id number] Apr, [address] [id number] Apr, Type 2 diabetes mellitus with diabetic neuropathy E11.40 ; Frequent falls R29.6 ; Essential hypertension I10 ; S/P coronary artery stent placement Z95.5 ; High risk medication use Z79.899 ; Hyperlipidemia, unspecified hyperlipidemia E78.5 ; CKD (chronic kidney disease), stage 3 (moderate) N18.3 ; Pain in left shoulder M25.512 and Chronic obstructive pulmonary disease, unspecified COPD type J44.[address] [id number] [id number] Mar, [place] [address] [place] [address] [id number] Mar, Type 2 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 ; Leg wound, left, initial encounter S81.802A ; Hx of shoulder surgery Z98.890 ; Acute pain of left shoulder M25.512 and Fall, initial encounter W19.XXXA [place] [address] [place] [address] [id number] Feb, Follow-up exam Z09 ; Hx of shoulder surgery Z98.890 ; Acute pain of left shoulder M25.512 ; Essential hypertension I10 and Leg wound, left, initial encounter S81.802A [facility] [place] [id number] [place] [address] [id number] Feb, [facility] [place] [id number] [place] [address] [id number] Feb, [facility] [place] [id number] [place] [address] [id number] Feb, Chronic obstructive pulmonary disease, unspecified COPD type J44.9 [facility] [place] [id number] [place] [address] [id number] Feb, [facility] [place] [id number] [place] [address] [id number] Jan, Generalized weakness R53.1 ; Exertional shortness of breath R06.02 and Fungal rash of trunk B36.9 [facility] [place] [id number] [place] [address] [id number] Jan, [facility] [place] [id number] [place] [address] [id number] Jan, [facility] [place] [address] [place] [address] [id number] Jan, [facility] [place] [id number] [place] [address] [id number] Jan, [facility] [place] [address] [place] [address] [id number] December, High risk medication use Z79.899 [facility] [place] [id number] [place] [address] [id number] December, Type 2 diabetes mellitus with diabetic neuropathy E11.40 [facility] [place] [address] [place] [address] [id number] December, High risk medication use Z79.899 [facility] [place] [id number] [place] [address] [id number] Nov, Diabetes type 2, uncontrolled E11.65 [facility] [place] [id number] [place] [address] [id number] Nov, Medicare annual wellness visit, initial Z00.00 ; Bilateral low back pain without sciatica M54.5 ; Pain in left shoulder M25.512 ; Chronic pain syndrome G89.4 ; Type 2 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 ; High risk medication use Z79.899 and Encounter for immunization Z23 [place] [address] [place] [address] [id number] Nov, Type 2 diabetes mellitus with diabetic neuropathy E11.40 ; Coronary artery disease involving [place] coronary artery of [place]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 and CKD (chronic kidney disease), stage 3 (moderate) N18.3 [place] [address] [place] [address] [id number] Oct, Type 2 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 ; Chronic pain syndrome G89.4 ; Chronic obstructive pulmonary disease, unspecified COPD type J44.9 ; Chronic kidney disease, unspecified N18.9 and Rash R21 [address] [id number] [id number] Oct, Type 2 diabetes mellitus with diabetic neuropathy E11.40 [place] [address] [place] [address] [id number] Oct, Rash R21 and Impetigo L01.00 [place] [address] [place] [address] [id number] Oct, Chronic pain syndrome G89.4 [place] [address] [place] [address] [id number] Oct, [facility] [address] [place] [address] [id number] Sep, Sebaceous cyst L72.3 [place] [address] [place] [address] [id number] Sep, Sebaceous cyst L72.3 [facility] [address] [place] [address] [id number] 10 Sep, 2016 Chronic pain syndrome G89.4 ; Pain in left shoulder M25.512 and Effusion of olecranon bursa, left M25.422 [facility] [address], [place] [address] Aug, [facility] [address] [id number] [place] [address] [id number] Aug, [facility] [id number] [place] [address] [id number] Aug, Mixed hyperlipidemia E78.2 and Chronic kidney disease, unspecified N18.9 [place] [address] [place] [address] [id number] Jul, Type 2 diabetes mellitus with diabetic neuropathy E11.40 ; Essential hypertension I10 and S/P coronary artery stent placement Z95.5 [place] [address] [place] [address] [id number] Jul, 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 [place] [address] [place] [address] [id number] Jul, Diabetes type 2, uncontrolled E11.65 ; Essential hypertension I10 and 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 [facility] [id number] [place] [address] [id number] Jul, [place] [address] [place] [address] [id number] Jul, [facility] [id number] [place] [address] [id number] Jul, [place] [address] [place] [address] [id number] Jul, Chronic obstructive pulmonary disease, unspecified COPD type J44.9 [place] [address] [place] [address] [id number] Jun, CKD (chronic kidney disease), stage 3 (moderate) N18.3 and Anemia, unspecified type D64.9 [place] [address] [place] [address] [id number] Jun, Type 2 diabetes mellitus with diabetic neuropathy E11.40 ; Decreased GFR R94.4 ; CKD (chronic kidney disease), stage 3 (moderate) N18.3 and Decreased hemoglobin R71.0 [place] [address] [place] [address] [id number] Jun, CKD (chronic kidney disease), stage 3 (moderate) N18.3 and Anemia, unspecified type D64.9 [place] [address] [place] [address] [id number] Jun, Type 2 diabetes mellitus with diabetic neuropathy E11.40 ; Decreased GFR R94.4 and CKD (chronic kidney disease), stage 3 (moderate) N18.3 [place] [address] [place] [address] [id number] Jun, Type 2 diabetes mellitus with diabetic neuropathy E11.40 and Essential hypertension I10 [place] [address] [place] [address] [id number] Jun, [place] [address] [place] [address] [id number] Jun, [place] [address] [place] [address] [id number] Jun, Type 2 diabetes mellitus with diabetic neuropathy E11.40 ; S/P coronary artery stent placement Z95.5 ; Chronic obstructive pulmonary disease, unspecified COPD type J44.9 ; Essential hypertension I10 ; GERD without esophagitis K21.9 ; Peripheral vascular disease I73.9 ; Mixed hyperlipidemia E78.2 and Hospital discharge follow-up Z09 [address] [place] [address] [id number] Jun, [place] [address] [place] [address] [id number] May, Depression F32.9 and Hyperlipidemia, unspecified hyperlipidemia E78.5 [facility] [address], [place] [address] May, [address] [place] [address] [id number] May, [place] [address] [place] [address] [id number] May, Essential hypertension I10 ; Chronic pain syndrome G89.4 ; Pain in left shoulder M25.512 ; High risk medication use Z79.899 ; Chronic obstructive pulmonary disease, unspecified COPD type J44.9 ; S/P coronary artery stent placement Z95.5 ; Personal history of carotid stenosis Z86.79 ; Hyperlipidemia, unspecified hyperlipidemia E78.5 ; Decreased GFR R94.4 and Type 2 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 [facility] [address] [place] [address] [id number] May, Hemoglobin decreased R71.0 and Decreased GFR R94.4 [place] [address] [place] [address] [id number] May, Hemoglobin decreased R71.0 and Decreased GFR R94.4 [place] [address] [place] [address] [id number] May, [place] [address] [place] [address] [id number] May, [place] [address] [place] [address] [id number] Apr, [place] [address] [place] [address] [id number] Apr, Type 2 diabetes mellitus with foot [...] unspecified hyperlipidemia E78.5 and Essential hypertension I10 [address] [id number] Apr, [address] [id number] Mar, [address] [id number] Mar, [facility] [address], [place] [address] Mar, [address] [id number] Feb, [place] [address] [id number] Feb, [facility] [id number] [place] [address] [id number] Feb, [facility] [address] [place] [place] [address] [id number] Jan, Type 2 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 ; Hypercholesterolemia E78.0 ; Chronic pain syndrome G89.4 ; Pain in left shoulder M25.512 and High risk medication use Z79.899 [facility] [address] [place] [address] [id number] Jan, [facility] [id number] [place] [address] [id number] Jan, [facility] [address] [place] [address] [id number] December, [facility] [address] [place] [address] [id number] December, 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 [address] [id number] [place] [address] [id number] [phone] Nov, [facility] [address] [id number] Nov, [facility] [address] [place] [id number] Nov, Diabetes with neurological manifestations, type II or unspecified type, 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.60 [facility] [place] [address] [id number] [place] [id number] Nov, [facility] [place] [id number] [place] [address] [id number] Nov, [facility] [place] [address] [id number] [id number] Oct, Diabetes type 2, uncontrolled E11.65 ; Type 2 diabetes mellitus with diabetic neuropathy, unspecified E11.40 and Low back pain M54.5 [facility] [place] [id number], [place] [id number] Oct, [facility] [place] [id number] [place] [address] [id number] Oct, [facility] [place] [id number], [place] [id number] Oct, [facility] [place] [id number] [place] [address] [id number] Sep, [facility] [id number], [place] [id number] Sep, 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 [facility] [place] [id number], [place] [id number] Aug, [facility] [place] [id number], [place] [id number] Aug, Allergic rhinitis due to pollen J30.1 [facility] [address]005[address] [id number] Jul, [facility] [address] [facility] [id number], [place] [id number] Jul, [facility] [address] [place] [id number], [place] [id number] Jul, [facility] [id number], [place] [id number] Jun, [facility] [address] [facility] [id number][place] [id number] Jun, Thumb tendonitis M77.8 and Ringing in ear, bilateral H93.13 [address] [id number] [id number] Jun, [address] [place] [address] [id number] May, [place] [address] [place] [address] [id number] [place] [address] [id number] 1536 May, [place] [address] [address] May, Pre-op evaluation Z01.818 ; Encounter for immunization Z23 ; Type 2 diabetes mellitus with diabetic peripheral angiopathy without gangrene E11.51 ; Insulin long-term use Z79.4 ; Type 2 diabetes mellitus with foot ulcer E11.621 ; Peripheral vascular disease I73.9 ; Coronary artery disease involving [place] coronary artery of [place]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 ; S/P coronary artery stent placement Z95.5 ; Osteomyelitis of right foot, unspecified chronicity M86.9 and Chronic obstructive pulmonary disease, unspecified COPD type J44.9 [place] [address] [id number] [id number] May, [address] [id number], [place] [id number] May, [place] [address] [place] [address] [id number] May, Diabetes type 2, uncontrolled E11.65 ; Encounter for immunization Z23 ; Osteopenia M85.80 and Allergic rhinitis due to pollen J30.1 [place] [address] [place] [address] [id number] May, [facility]24[facility] [address] [id number] [id number] Apr, [facility] [id number] [place] [address] [id number] Apr, [facility] [place] [id number] [place] [address] [id number] Apr, [facility] [place] [id number] [place] [address] [id number] Apr, [facility] [id number] [place] [address]- 7682 Mar, [facility] [place] [id number] [place] [address] [id number] Mar, [facility] [place] [id number] [place] [address] [id number] Mar, [facility] [place] [id number] [place] [address] [id number] Mar, [facility] [place] [id number] [place] [address] [id number] Mar, [facility] [id number] [place] [address] 60[address]- 7312 Mar, [facility] [place] [id number] [place] [address] [id number] Mar, [facility] [place] [id number] [place] [address] [id number] Mar, Diabetes with neurological manifestations, type II or unspecified type, 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.60 and Severe obesity (BMI 35.0-35.9 with comorbidity) 278.01 [facility] [place] [id number] [place] [address] [id number] Mar, [facility] [id number] [place] [address] 93193- 6915 Mar, [facility] [id number] [place] [address] 284[address]- 4862 Feb, [facility] [place] [address] [id number], [place] [id number] Feb, [facility] [address] [id number], [place] [id number] Feb, [facility] [id number], [place] [id number] Feb, Diabetes with neurological manifestations, type II or unspecified type, 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.60 [facility] [id number] [place] [address] [id number] Feb, [facility] [address] [place] [address] [id number] [phone] Feb, [facility] [id number] [place] [address] [id number] Feb, [facility] [id number] [place] [address] [id number] Feb, Follow up V67.9 ; Diabetes with neurological manifestations, type II or unspecified type, 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.60 and Congestive heart failure 428.0 [facility] [id number], [place] [address] Jan, [facility] [address] [id number], [place] [id number] Jan, [facility] [id number], [place] [address]57706[address] Jan, [facility] [id number], [place] 2479[address]693 December, Otitis media with effusion 381.4 ; Left arm numbness 782.0 and Osteoporosis 733.00 [facility] [id number], [place] [id number] December, [facility] [address] [id number][place] [address] Nov, [facility] [id number], [place] [address] Nov, Serous otitis media 381.[address] [facility] [id number] [place] [id number]- 3367 Nov, [facility] [place] [facility] [address] [facility] [id number], [place] [address]- [address] Nov, [facility] [address] [facility] [id number], [place] [id number] Oct, [facility] [place] [facility] [address] [facility] [id number], [place] [address]- 1646 Oct, [facility] [address] [facility] [id number], [place] 375999584 Oct, [facility] [place] [facility] [address] [facility] [id number], [place] [address]- 7146 Oct, [facility] [address] [facility] [id number], [place] [address]8051 Oct, [facility] [place] [facility] [address] [facility] [id number], [place] [address]- 2426 Oct, [facility] [place] [facility] [address]00565100[address], [place] [address]- 7322 Sep, [facility] [place] [facility] [address]00565100[place], [place] [address]- 3427 Sep, [facility] [address] [facility] [id number], [place] 285[address]12040 Sep, [facility] [place] [facility] [address]00565100[place], [place] [address]- 3836 Sep, [facility] [address] [facility] [id number], [place] [id number] Aug, [facility] [place] [facility] [address] [facility] [id number], [place] [address]- 6326 Aug, [facility] [address] [facility] [id number], [place] 415826080 Aug, [facility] [place] [facility] [address] [facility] [id number], [place] [address]- 7416 Aug, [facility] [address] [facility] [id number], [place] 967702040 Jul, [facility] [place] [facility] [address]00565100[place], [place] [address]- 1136 Jul, [facility] [address] [id number] [place] 3708[address]687 Jul, [facility] [place] [facility] [address] [facility] [id number], [place] [address]- 4796 Jul, [facility] [address] [id number] [place] 991675500 Jul, [facility] [place] [facility] [address] [facility] [id number], [place] [address]- 2566 Jul, [facility] [address] [id number], [place] 926777103 Jun, [facility] [place] [facility] [address] [facility] [id number], [place] [address]- 7517 Jun, [facility] [address] [facility] [id number], [place] [id number] May, [facility] [place] [facility] [address] [facility] [id number], [place] [address]- 5861 May, [facility] [address] [facility] [id number], [place] 939579224 May, [facility] [place] [facility] [address] [facility] [place] [id number], [place] [address]- 1755 May, [facility] [address] [facility] [id number], [place] 155784646 May, [facility] [place] [facility] [address] [facility] [place] [id number], [place] [address]- 2072 May, [facility] [address] [facility] [id number], [place] 199738522 May, [facility] [address] [id number], [place] [id number] May, [facility] [place] [facility] [address] [facility] [id number], [place] [address]- 4904 May, [facility] [place] [facility] [address] [facility] [id number], [place] [address]- 8476 May, [facility] [address] [id number], [place] 996262623 May, [facility] [place] [facility] [address] [facility] [id number], [place] 907861- 9993 May, [facility] [place] [facility] [address] [facility] [id number], [place] 44586143- 6973 Apr, [facility] [address] [facility] [id number] [place] 074287229 Apr, [facility] [place] [facility] [address] [facility] [id number], [place] [address]- 8400 Apr, [facility] [address] [id number] [place] 088994670 Apr, [facility] [address] [id number] [place] 104465163 Apr, [facility] [place] [facility] [address] [facility] [id number], [place] [address]- 7066 Apr, [facility] [place] [facility] [address] [facility] [id number], [place] [address]- 9902 Apr, [facility] [address] [id number], [place] 670882717 Apr, [facility] [place] [facility] [address] [facility] [id number], [place] [address]- 7006 Apr, [facility] [address] [facility] [id number], [place] 892408593 Apr, [facility] [place] [facility] [address] [facility] [id number], [place] [address]- 7136 Apr, [facility] [address] [id number], [place] 047462630 Apr, [facility] [place] [facility] [address] [facility] [id number], [place] [address]- 4349 Apr, [facility] [address] [id number], [place] 067652828 Apr, [facility] [place] [facility] [address] [facility] [id number], [place] [address]- 3916 Apr, [facility] [address] [id number] [place] 945532926 Apr, [facility] [place] [facility] [address] [id number] [place] [address]- 6413 Apr, [facility] [address] [id number] [place] 171172927 Apr, [facility] [place] [facility] [address] [facility]] [id number] [place] [address]- 9540 Apr, [facility] [address] [id number] [place] 928751126 Mar, [facility] [place] [facility] [address] [id number] [place] [address]- 8725 Mar, [facility] [address] [id number] [place] 933620141 Mar, [facility] [address] [id number] [place] 754266164 Mar, [facility] [place] [facility] [address]00565100[place], [place] [address]- 0479 Mar, [facility] [place] [facility] [address] [facility] [id number], [place] [address]- 9459 Mar, [facility] [address] [id number] [place] 291885631 Mar, [facility] [place] [facility] [address] [facility] [id number], [place] [address]- 1500 Mar, [facility] [address] [id number] [place] 450721560 Mar, [facility] [place] [facility] [address] [facility] [id number], [place] [address]- 4347 Mar, [facility] [address] [id number] [place] 929616788 Mar, [facility] [place] [facility] [address] [facility] [id number] [place] [address]- 9714 Mar, [facility] [address] [id number] [place] 549729565 Mar, [facility] [place] [facility] [address] [facility] [id number] [place] [address]- 4715 Mar, [facility] [address] [id number] [place] 184816733 Mar, [facility] [place] [facility] [address] [facility] [id number] [place] [address]- 4620 Mar, [facility] [address] [id number] [place] [id number] Mar, [facility] [place] [facility] [address] [id number] [place] [address]- 4327 Mar, [facility] [address] [id number] [place] [id number] Mar, [facility] [place] [facility] [address] [facility] [id number] [place] [address]- 7152 Mar, [facility] [address] [id number] [place] 231210314 Feb, [facility] [place] [facility] [address] [facility] [id number], [place] [address]- 7038 Feb, [facility] [address] [id number] [place] 296828429 Feb, [facility] [place] [facility] [address] [facility] [id number] [place] [address]- 5969 Feb, [facility] [address] [id number] [place] 501192045 Feb, [facility] [place] [facility] [address] [facility] [id number] [place] [address]- 7012 Feb, [facility] [address] [id number] [place] 382222194 Feb, [facility] [place] [facility] [address] [id number] [place] [address]- 6387 Feb, [facility] [address] [id number] [place] 480933255 Feb, [facility] [place] [facility] [address] [facility] [id number] [place] [address]- 2593 Feb, [facility] [address] [id number] [place] 797190035 Feb, 2013 [facility] [place] [facility] [address] [id number] [place] [address]- 1163 Feb, 2013 [facility] [address] [id number] [place] [id number] Feb, [facility] [place] [facility] [address] [id number] [place] [address]- 5204 Feb, 2013 [facility] [address] [id number] [place] [id number] Feb, [facility] [place] [facility] [address] [id number] [place] [address]- 0690 Feb, [facility] [address] [id number] [place] 045944879 Feb, [facility] [place] [facility] [address] [facility] [id number] [place] [address]- 9008 Feb, [facility] [address] [id number] [place] 506791031 Feb, [facility] [address] [id number] [place] 962577678 Feb, [facility] [place] [facility] [address] [id number] [place] [address]- 0664 Feb, [facility] [place] [facility] [address] [facility] [id number] [place] [address]- 0771 Feb, [facility] [address] [id number] [place] 956392522 Feb, [facility] [place] [facility] [address] [id number] [place] [address]- 8018 Feb, [facility] [address] [id number] [place] 000688884 Feb, [facility] [place] [facility] [address] [id number] [place] 87137640- 8857 Feb, [facility] [address] [id number] [place] 384228675 Feb, [facility] [place] [facility] [address] [facility] [id number], [place] [address]- 6786 Feb, [facility] [address] [id number], [place] 643432766 Jan, [facility] [place] [facility] [address] [facility] [id number], [place] [address]- 0930 Jan, [facility] [place] [facility] [address] [facility] [id number], [place] [address]- 2013 Jan, [facility] [place] [facility] [address] [facility] [id number], [place] [address]- 8867 Jan, [facility] [place] [facility] [address] [facility] [id number], [place] [address]- 9266 Jan, [facility] [place] [facility] [address] [facility] [id number], [place] [address]- 7701 Jan, [facility] [address] [facility] [id number], [place] 477132398 Jan, [facility] [place] [facility] [address] [facility] [id number], [place] [address]- 1347 Jan, [facility] [place] [facility] [address] [facility] [id number], [place] [address]- 4449 Jan, [facility] [place] [facility] [address] [facility] [id number], [place] [address]- 9435 Jan, [facility] [address] [id number], [place] 927819315 Jan, [facility] [address] [id number], [place] 194843987 Jan, [facility] [place] [facility] [address] [facility] [id number], [place] [address]- 1376 Jan, [facility] [place] [facility] [address] [facility] [id number], [place] 33164498- 2280 Jan, [facility] [address] [id number], [place] 959003731 Jan, [facility] [address] [facility] [id number], [place] 046111500 Jan, [facility] [place] [facility] [address] [id number] [place] [address]- 4866 Jan, [facility] [place] [facility] [address] [id number] [place] [address]- 2666 Jan, [facility] [place] [facility] [address] [id number] [place] [address]- 6546 Jan, [facility] [address] [facility] [id number], [place] 229628547 December, [facility] [place] [facility] [address] [id number] [place] [address]- 6634 December, [facility] [place] [facility] [address] [id number] [place] [address]- 6676 December, [facility] [address] [facility] [id number] [place] 333527197 December, [facility] [place] [facility] [address] [id number] [place] [address]- 8926 December, [facility] [address] [facility] [id number], [place] [id number] December, [facility] [place] [facility] [address] [id number] [place] [address]- 3316 December, [facility] [address] [facility] [id number], [place] 556509445 December, [facility] [place] [facility] [address] [id number] [place] [address] 2546 December, [facility] [address] [facility] [id number], [place] 571368612 Nov, [facility] [place] [facility] [address] [id number] [place] [address]- 1346 Nov, [facility] [address] [facility] [id number], [place] 817049926 Nov, [facility] [place] [facility] [address] [facility] [id number] [place] [address]- 1216 Nov, [facility] [place] [facility] [address] [facility] [id number], [place] [address]- 6461 Nov, [facility] [place] [facility] [address] [facility] [id number], [place] [address]- 7016 Nov, [facility] [place] [facility] [address] [facility] [id number], [place] [address]- 3389 Oct, [facility] [address] [facility] [id number], [place] 653193710 Oct, [facility] [place] [facility] [address] [facility] [id number], [place] [address]- 3662 Oct, [facility] [address] [facility] [id number], [place] 797958868 Oct, [facility] [place] [facility] [address] [facility] [id number], [place] [address]- 6262 Oct, [facility] [id number], [place] 00[address]69302 Sep, [facility] [place] [facility] [address]00565100[place], [place] [address]- 4354 Sep, [facility] [address] [facility] [id number], [place] 347182543 Aug, [facility] [place] [facility] [address]00565100[place], [place] [address]- 6880 Aug, [facility] [address] [id number], [place] 768599986 Aug, [facility] [place] [facility] [address] [facility] [id number], [place] [address]- 7806 Aug, [facility] [place] [facility] [address] [facility] [id number], [place] [address]- 5233 Aug, [facility] [address] [facility] [id number], [place] 222903557 Aug, [facility] [place] [facility] [address] [facility] [id number], [place] [address]- 7407 Aug, [facility] [place] [facility] [address]00565100[place], [place] [address]- 6826 Aug, [facility] [address] [id number] [place] 401126555 Aug, [facility] [address] [facility] [id number], [place] [address]- 0846 Aug, [facility] [address] [id number] [place] 341672262 Jul, [facility] [address] [id number], [place] [address]- 6620 Jul, [facility] [address] [id number] [place] 582731674 Jul, [facility] [address] [facility] [id number], [place] [address]- 5815 Jul, [facility] [address] [facility] [id number], [place] 592883839 Jul, [facility] [address]00565100[place], [place] [address]- 3300 Jul, [facility] [address] [facility] [id number], [place] 287525138 Jul, [facility] [address] [facility] [id number], [place] [address]- 3863 Jul, [facility] [address] [facility] [id number], [place] 398369308 Jun, [facility] [place] [facility] [address] [facility] [id number], [place] [address]- 8749 Jun, [facility] [address] [facility] [id number], [place] 142261703 Jun, [facility] [place] [facility] [address] [facility] [id number], [place] [address]- 6125 Jun, [facility] [place] [facility] [address] [facility] [id number], [place] [address]- 2045 Jun, [facility] [place] [facility] [address] [facility] [id number], [place] [address]- 9101 Jun, [facility] [address] [facility] [id number], [place] 724661043 Apr, [facility] [place] [address] [id number] [place] 012378921 Mar, [facility] [place] [address] [id number] [place] 395481137 Mar, [facility] [place] [address] [id number] [place] 563029862 Feb, [facility] [place] [address] [id number] [place] 310127502 Feb, [facility] [place] [address] [id number] [place] 584195220 Feb, [facility] [place] [address] [id number] [place] 747952489 December, [facility] [place] [address] [id number] [place] [address] December, [facility] [address]00565100[place], [place] [address]- 7455 December, [facility] [place] [address] [id number] [place] 542626327 December, [facility] [address] [id number] [place] 471466098 December, [facility] [address] [id number] [place] [id number] Nov, [facility] [address] [id number] [place] [address] Nov, [facility] [address] [id number] [place] [address] Nov, [facility] [address] [id number] [place] [address] Oct, [facility] [address] [id number] [place] [id number] Sep, [facility] [address] [id number] [place] [id number] Aug, [facility] [address] [facility] [place] [id number], [place] [address] Aug, [facility] [address] [id number] [place] [id number] Aug, [facility] [address] [id number] [place] [address] Jul, [facility] [address] [facility] [place] [id number], [place] [address] Jul, [facility] [address] [id number][place] [id number] Jul, [facility] [address] [facility] [place] [id number], [place] [address] Jul, [facility] [address] [id number][place] [id number] Jun, [facility] [address] [facility] [place] [id number], [place] [address] Jun, [facility] [address] [id number][place] [id number] May, [facility] [address] [facility] [place] [id number], [place] [address] May, [facility] [address] [id number][place] [id number] May, [facility] [address] [facility] [place] [id number], [place] [address] May, [facility] [address] [id number][place] [id number] Apr, [facility] [address] [id number], [place] [id number] Apr, [facility] [address] [id number], [place] [id number] Mar, [facility] [address] [id number] [place] [id number] Mar, [facility] [address] [id number] [place] [id number] Feb, [facility] [address] [id number] [place] [id number] Feb, [facility] [address] [id number] [place] [id number] Jan, [facility] [address] [id number] [place] [address] Jan, [facility] [address] [id number] [place] [address] Jan, [facility] [address] [id number] [place] [address] Jan, [facility] [address] [id number] [place] [id number] December, [facility] [address] [id number] [place] [id number] December, [facility] [address] [facility] [place] [id number] [place] [address] Nov, [facility] [address] [id number] [place] [id number] Nov, [facility] [address] [id number] [place] [id number] Nov, [facility] [address] [id number] [place] [address] Nov, [facility] [address] [id number] [place] [address] Nov, [facility] [address] [facility] [place] [id number] [place] [address] Oct, [facility] [address] [facility] [place] [id number], [place] [address] Oct, [facility] [address] [id number] [place] [id number] Oct, [facility] [address] [id number] [place] [id number] Oct, [facility] [address] [id number] [place] [id number] Oct, [facility] [address] [id number] [place] [address] Oct, [facility] [address] [id number] [place] [address] Oct, [facility] [address] [id number] [place] [address] Oct, [facility] [address] [id number] [place] [address] Oct, [facility] [address] [facility] [place] [id number], [place] [address] Oct, [facility] [address] [id number] [place] [address] Sep, [facility] [address] [id number] [place] [address] Sep, [facility] [address] [id number] [place] [address] Aug, [facility] [address] [id number] [place] [address] Aug, [facility] [place] [facility] [address] [facility] [place] [id number] [place] [address], [place] [address] Jul, [facility] [place] [facility] [address] [id number] [address] Jul, [facility] [place] [facility] [id number] [place] [address] Jul, [facility] [place] [facility] [address], [place] [address] Jul, [facility] [place] [facility] [id number] [place] [address] Jul, [facility] [place] [facility] [address]65[address], [place] [address] Jul, [facility] [place] [facility] [address]65[address], [place] [address] Jul, [facility] [place] [facility] [address] [facility] [place] [id number], [place] [address] Jul, [facility] [place] [facility] [address] [facility] [place] [id number], [place] [address] Jul, [facility] [place] [facility] [address] [facility] [place] [id number], [place] [address] Jul, [facility] [place] [facility] [address]65[address], [place] [address] Jul, [facility] [address] [facility] [place]] [id number] [place] [address] Jul, [facility] [address] [facility] [place]] [id number], [place] [address] Jul, 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 Secondary to ATN from [facility] 4.3 Medical History HX of [...] feel he is independent in the home. 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 06/2014 Surgical History amputation, toe-right third toe (Nisreen) 2013 [facility] Surgical History heart cath with stent [...]
--- OUTSIDE RECORDS SUMMARY | 2018-06-20 10:31 | XMS REPORT ---
Author Author SATINDER GOOD [facility] Address [address] [place] [address] Care Team Providers [employer] Name Role Phone SATINDER GOOD Unavailable PROBLEMS Type Condition ICD9-CM Code QIC13-PQ Code Onset Dates Condition Status SNOMED Code Problem Chronic obstructive pulmonary disease, unspecified COPD type J44.9 Active 38701387 Problem Peripheral vascular disease I73.9 Active 257660380 Problem Type 2 diabetes mellitus with diabetic neuropathy E11.40 Active 01477153 Problem S/P coronary artery stent placement Z95.5 Active 457798614 Problem Osteomyelitis of right foot, unspecified chronicity M86.9 Active 77149779 Problem Type 2 diabetes mellitus with diabetic retinopathy, macular edema presence unspecified, with unspecified retinopathy severity E11.319 Active 07171765 Problem Bilateral low back pain without sciatica M54.5 Active 654011144 Problem 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 Active 728591424 Problem 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 Active 765426440 Problem Frequent falls R29.6 Active 587703582 Problem Hypercholesterolemia E78.0 Active 00467532 Problem Comprehensive diabetic foot examination, type 2 DM, encounter for E11.9 Active 29517973 Problem Type 2 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 Active 343731854 Problem Obesity (BMI 30.0-34.9) E66.9 Active 651762010983690 Problem Uses walker Z99.89 Active 656335211 Problem Aphasia R47.01 Active 79862861 Problem Functional diarrhea K59.1 Active 70606999 Problem Fecal urgency R15.2 Active 68155834 Problem Fatigue, unspecified type R53.83 Active 94478321 Problem High risk medication use Z79.899 Active 161383686 Problem Diabetes type 2, uncontrolled E11.65 Active 306935416 Problem Personal history of carotid stenosis Z86.79 Active 312179062 Problem Other chronic pain G89.29 Active 28071501 Problem Chronic diarrhea K52.9 Active 266957555 Problem Full incontinence of feces R15.9 Active 059344595911196 Problem Mixed stress and urge urinary incontinence N39.46 Active 366450888 Problem Hyperlipidemia, unspecified hyperlipidemia E78.5 Active 10041803 Problem Essential hypertension I10 Active 00596629 Problem Coronary artery disease involving [place] coronary artery of [place]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 Active 4427513484066 Problem CKD (chronic kidney disease), stage 3 (moderate) N18.3 Active 047136861 Problem Insulin long-term use Z79.4 Active 835395341 Problem Chronic pain syndrome G89.4 Active 184067654 Problem Depression F32.9 Active 86513009 Problem Pain in left shoulder M25.512 Active 56673059 Problem Type 2 diabetes mellitus with foot ulcer E11.621 Active 509913118 Problem Mixed hyperlipidemia E78.2 Active 710044757 Problem Type 2 diabetes mellitus with diabetic peripheral angiopathy without gangrene E11.51 Active 846664024 Problem Chronic kidney disease, unspecified N18.9 Active 458124720 Problem CKD (chronic kidney disease) stage 3, GFR 30-59 ml/min N18.3 Active 439287485 Problem GERD without esophagitis K21.9 Active 482051347 ALLERGIES No Known Allergies ENCOUNTERS Encounter Location Date Diagnosis [address] [id number] [id number] December, Diabetes type 2, uncontrolled E11.65 ; [...] type J44.9 and Other chronic pain G89.29 [facility] [address] [facility] [id number], [place] [address] December, [id number] [place] [address] [id number] December, Medicare annual wellness visit, subsequent Z00.00 ; Type 2 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 ; Chronic obstructive pulmonary disease, unspecified COPD type J44.9 ; Depression F32.9 ; Peripheral vascular disease I73.9 ; Coronary artery disease involving [place] coronary artery of [place]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 ; Hypercholesterolemia E78.0 ; GERD without esophagitis K21.9 and Chronic kidney disease, unspecified N18.9 [place] [id number] [place] [address] [id number] December, Mixed stress and urge urinary incontinence N39.46 ; Full incontinence of feces R15.9 ; Fecal urgency R15.2 ; Functional diarrhea K59.1 and Type 2 diabetes mellitus with diabetic neuropathy E11.40 [place] [id number] [place] [address] [id number] Nov, Other chronic pain G89.29 [place] [id number] [place] [address] [id number] Oct, [address] [id number] Oct, [address] [id number] Oct, Other chronic pain G89.29 [place] [id number] [place] [address] [id number] Sep, Other chronic pain G89.[address] [id number] Aug, CKD (chronic kidney disease), stage 3 (moderate) N18.3 ; Anemia, unspecified type D64.9 and Dilated pore of Ly L70.8 [place] [id number] [place] [address] [id number] Aug, Other chronic pain G89.29 ; Pain in left shoulder M25.512 ; High risk medication use Z79.899 ; Uses walker Z99.89 ; Diabetes type 2, uncontrolled E11.65 and Depression F32.[address] [id number] Aug, Chronic diarrhea K52.9 [facility] [address] [id number] Aug, Chronic diarrhea K52.9 ; Type 2 diabetes mellitus with diabetic neuropathy E11.40 ; Diabetes type 2, uncontrolled E11.65 ; Insulin long-term use Z79.4 ; Chronic obstructive pulmonary disease, unspecified COPD type J44.9 ; Chronic pain syndrome G89.4 ; Pain in left shoulder M25.512 ; Uses walker Z99.89 ; S/P coronary artery stent placement Z95.5 ; Mixed hyperlipidemia E78.2 and Essential hypertension I10 [address] [place] [id number] Aug, [address] [id number] Jul, Diabetes type 2, uncontrolled E11.65 [place] [id number] [place] [address] [id number] Jul, Diabetes type 2, uncontrolled E11.65 ; Type 2 diabetes mellitus with diabetic neuropathy E11.40 ; Insulin long-term use Z79.4 and Chronic obstructive pulmonary disease, unspecified COPD type J44.9 [address] [place] [address] [id number] Jun, [facility] [id number] [place] [address] [id number] Jun, Essential hypertension I10 [address] [place] [address] [id number] Jun, Essential hypertension I10 [place] [id number] [place] [address] [id number] Jun, Type 2 diabetes mellitus with diabetic neuropathy E11.40 ; Type 2 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 ; S/P coronary artery stent placement Z95.5 ; Obesity (BMI 30.0-34.9) E66.9 ; Mixed hyperlipidemia E78.2 ; Frequent falls R29.6 ; Chronic obstructive pulmonary disease, unspecified COPD type J44.9 ; Essential hypertension I10 ; Insulin long-term use Z79.4 and High risk medication use Z79.899 [facility] [id number] [place] [address] [id number] May, Diarrhea, unspecified type R19.7 ; Type 2 diabetes mellitus with diabetic neuropathy E11.40 ; Chronic obstructive pulmonary disease, unspecified COPD type J44.9 ; S/P coronary artery stent placement Z95.5 ; High risk medication use Z79.899 ; Essential hypertension I10 ; Encounter for administration of vaccine Z23 and Encounter for immunization Z23 [address] [id number] [id number] May, Chronic obstructive pulmonary disease, unspecified COPD type J44.9 [facility] [id number] [place] [address] [id number] May, Type 2 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 ; Encounter for immunization Z23 ; Needs flu shot Z23 ; Comprehensive diabetic foot examination, type 2 DM, encounter for E11.9 and Obesity (BMI 30.0-34.9) E66.9 [facility] [address] [place] [id number] [place] [address] [id number] May, [facility] [id number] [place] [address] [id number] Apr, [place] [id number] [place] [address] [id number] Apr, Essential hypertension I10 and Aphasia R47.01 [facility] [id number] [place] [address] [id number] Apr, [place] [id number] [place] [address] [id number] Apr, Type 2 diabetes mellitus with diabetic neuropathy E11.40 ; Frequent falls R29.6 ; Essential hypertension I10 ; S/P coronary artery stent placement Z95.5 ; High risk medication use Z79.899 ; Hyperlipidemia, unspecified hyperlipidemia E78.5 ; CKD (chronic kidney disease), stage 3 (moderate) N18.3 ; Pain in left shoulder M25.512 and Chronic obstructive pulmonary disease, unspecified COPD type J44.9 [facility] [address] [place] [address] [id number] Mar, [place] [id number] [place] [address] [id number] Mar, Type 2 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 ; Leg wound, left, initial encounter S81.802A ; Hx of shoulder surgery Z98.890 ; Acute pain of left shoulder M25.512 and Fall, initial encounter W19.XXXA [facility] [id number] [place] [address] [id number] Feb, Follow-up exam Z09 ; Hx of shoulder surgery Z98.890 ; Acute pain of left shoulder M25.512 ; Essential hypertension I10 and Leg wound, left, initial encounter S81.802A [facility] [id number] [place] [address] [id number] Feb, [facility] [id number] [place] [address] [id number] Feb, [facility] [address] [id number] [place] [address] [id number] Feb, Chronic obstructive pulmonary disease, unspecified COPD type J44.9 [facility] [id number] [place] [address] [id number] Feb, [facility] [address] [id number] [place] [address] [id number] Jan, Generalized weakness R53.1 ; Exertional shortness of breath R06.02 and Fungal rash of trunk B36.9 [facility] [id number] [place] [address] [id number] Jan, [facility] [id number] [place] [address] [id number] Jan, [facility] [address] [id number] [place] [address] [id number] Jan, [facility] [address] [id number] [place] [address] [id number] Jan, [facility] [id number] [place] [address] [id number] December, High risk medication use Z79.899 [facility] [id number] [place] [address] [id number] December, Type 2 diabetes mellitus with diabetic neuropathy E11.40 [facility] [address] [place] [id number] [id number] December, High risk medication use Z79.899 [address] [place] [address] [id number] Nov, Diabetes type 2, uncontrolled E11.65 [address] [place] [address] [id number] Nov, Medicare annual wellness visit, initial Z00.00 ; Bilateral low back pain without sciatica M54.5 ; Pain in left shoulder M25.512 ; Chronic pain syndrome G89.4 ; Type 2 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 ; High risk medication use Z79.899 and Encounter for immunization Z23 [place] [id number] [place] [address] [id number] Nov, Type 2 diabetes mellitus with diabetic neuropathy E11.40 ; Coronary artery disease involving [place] coronary artery of [place]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 and CKD (chronic kidney disease), stage 3 (moderate) N18.3 [address] [place] [address] [id number] Oct, Type 2 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 ; Chronic pain syndrome G89.4 ; Chronic obstructive pulmonary disease, unspecified COPD type J44.9 ; Chronic kidney disease, unspecified N18.9 and Rash R21 [address] [id number] [id number] Oct, Type 2 diabetes mellitus with diabetic neuropathy E11.[id number] [place] [address] [id number] Oct, Rash R21 and Impetigo L01.[id number] [place] [address] [id number] Oct, Chronic pain syndrome G89.4 [address] [place] [address] [id number] Oct, [address] [place] [address] [id number] Sep, Sebaceous cyst L72.3 [address] [place] [address] [id number] Sep, Sebaceous cyst L72.3 [address] [id number] Sep, Chronic pain syndrome G89.4 ; Pain in left shoulder M25.512 and Effusion of olecranon bursa, left M25.422 [facility] [address] [address] Aug, [place] [id number] [place] [address] [id number] Aug, [place] [id number] [place] [address] [id number] Aug, Mixed hyperlipidemia E78.2 and Chronic kidney disease, unspecified N18.9 [place] [id number] [place] [address] [id number] Jul, Type 2 diabetes mellitus with diabetic neuropathy E11.40 ; Essential hypertension I10 and S/P coronary artery stent placement Z95.5 [place] [id number] [place] [address] [id number] Jul, 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 [place] [id number] [place] [address] [id number] Jul, Diabetes type 2, uncontrolled E11.65 ; Essential hypertension I10 and 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 [place] [id number] [place] [address] [id number] Jul, [place] [id number] [place] [address] [id number] Jul, [address] [place] [address] [id number] Jul, [place] [id number] [place] [address] [id number] Jul, Chronic obstructive pulmonary disease, unspecified COPD type J44.9 [address] [place] [address] [id number] Jun, CKD (chronic kidney disease), stage 3 (moderate) N18.3 and Anemia, unspecified type D64.9 [place] [id number] [place] [address] [id number] Jun, Type 2 diabetes mellitus with diabetic neuropathy E11.40 ; Decreased GFR R94.4 ; CKD (chronic kidney disease), stage 3 (moderate) N18.3 and Decreased hemoglobin R71.0 [place] [id number] [place] [address] [id number] Jun, CKD (chronic kidney disease), stage 3 (moderate) N18.3 and Anemia, unspecified type D64.9 [place] [id number] [place] [address] [id number] Jun, Type 2 diabetes mellitus with diabetic neuropathy E11.40 ; Decreased GFR R94.4 and CKD (chronic kidney disease), stage 3 (moderate) N18.3 [place] [id number] [place] [address] [id number] Jun, Type 2 diabetes mellitus with diabetic neuropathy E11.40 and Essential hypertension I10 [place] [id number] [place] [address] [id number] Jun, [place] [id number] [place] [address] [id number] Jun, [place] [id number] [place] [address] [id number] Jun, Type 2 diabetes mellitus with diabetic neuropathy E11.40 ; S/P coronary artery stent placement Z95.5 ; Chronic obstructive pulmonary disease, unspecified COPD type J44.9 ; Essential hypertension I10 ; GERD without esophagitis K21.9 ; Peripheral vascular disease I73.9 ; Mixed hyperlipidemia E78.2 and Hospital discharge follow-up Z09 [place] [id number] [place] [address] [id number] Jun, [place] [id number] [place] [address] [id number] May, Depression F32.9 and Hyperlipidemia, unspecified hyperlipidemia E78.5 [facility] [address] [address] May, [address] [place] [address] [id number] May, [address] [place] [address] [id number] May, Essential hypertension I10 ; Chronic pain syndrome G89.4 ; Pain in left shoulder M25.512 ; High risk medication use Z79.899 ; Chronic obstructive pulmonary disease, unspecified COPD type J44.9 ; S/P coronary artery stent placement Z95.5 ; Personal history of carotid stenosis Z86.79 ; Hyperlipidemia, unspecified hyperlipidemia E78.5 ; Decreased GFR R94.4 and Type 2 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 [place] [id number] [place] [address] [id number] May, Hemoglobin decreased R71.0 and Decreased GFR R94.[address] [id number] May, Hemoglobin decreased R71.0 and Decreased GFR R94.[address] [id number] May, [place] [id number] [place] [address] [id number] May, [place] [id number] [place] [address] [id number] Apr, [address] [id number] Apr, Type 2 diabetes mellitus with foot [...] unspecified hyperlipidemia E78.5 and Essential hypertension I10 [place] [id number] [place] [address] [id number] Apr, [place] [id number] [place] [address] [id number] Mar, [place] [id number] [place] [address] [id number] Mar, [facility] [address], [place] [address] Mar, [facility] [id number] [place] [address] [id number] Feb, [facility] [id number] [place] [address] [id number] Feb, [facility] [id number] [place] [address] [id number] Feb, [facility] [id number] [place] [address] [id number] Jan, Type 2 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 ; Hypercholesterolemia E78.0 ; Chronic pain syndrome G89.4 ; Pain in left shoulder M25.512 and High risk medication use Z79.899 [facility] [id number] [place] [address] [id number] Jan, [facility] [id number] [place] [address] [id number] Jan, [facility] [id number] [place] [address] [id number] December, [facility] [id number] [place] [address] [id number] December, [facility] [address], [place] [address] December, Diabetes type 2, uncontrolled E11.65 ; Type 2 diabetes mellitus with diabetic neuropathy E11.40 ; Peripheral vascular disease I73.9 ; 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 and 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 [facility] [id number] [id number] Nov, [facility] [id number] [place] [address] [id number] Nov, [facility] [id number] [id number] Nov, [facility] [id number][place] [id number] Nov, Right hip pain M25.551 [facility] [address]00565[address], [place] [address] Nov, [facility] [id number] [place] [address] Nov, [facility] [id number] [place] [address] [id number] Nov, Diabetes with neurological manifestations, type II or unspecified type, 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.60 [facility] [id number] [place] [address] [id number] Nov, [facility] [id number] [place] [address] [id number] Nov, [facility] [place] [id number] [place] [address] [id number] Oct, Diabetes type 2, uncontrolled E11.65 ; Type 2 diabetes mellitus with diabetic neuropathy, unspecified E11.40 and Low back pain M54.5 [facility] [id number] [place] [address] [id number] Oct, [facility] [id number] [place] [address] [id number] Oct, [facility] [id number] [place] [address] [id number] Oct, [facility] [id number] [place] [address] [id number] Sep, [facility] [id number] [place] [address] [id number] Sep, [facility] [address], [place] [address] Sep, [facility] [id number] [place] [address] [id number] Sep, [facility] [place] [id number] [place] [address] [id number] Sep, [facility] [place] [id number] [place] [address] [id number] Aug, 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 [facility] [place] [id number] [place] [address] [id number] Aug, [facility] [address] [facility] [id number] [id number] Aug, Allergic rhinitis due to pollen J30.1 [facility] [id number][place] [id number] Jul, [facility] [address] [facility] [id number] [id number] Jul, [facility] [id number] [id number] Jul, [facility] [address] [facility] [id number] [id number] Jun, [address] [place] [address] [id number] Jun, Thumb tendonitis M77.8 and Ringing in ear, bilateral H93.13 [facility] [id number][place] [id number] Jun, [address] [id number] May, [facility] [id number] [place] [address] [id number] [phone] May, [facility] [id number] [place] [address] May, Pre-op evaluation Z01.818 ; Encounter for immunization Z23 ; Type 2 diabetes mellitus with diabetic peripheral angiopathy without gangrene E11.51 ; Insulin long-term use Z79.4 ; Type 2 diabetes mellitus with foot ulcer E11.621 ; Peripheral vascular disease I73.9 ; Coronary artery disease involving [place] coronary artery of [place]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 ; S/P coronary artery stent placement Z95.5 ; Osteomyelitis of right foot, unspecified chronicity M86.9 and Chronic obstructive pulmonary disease, unspecified COPD type J44.9 [facility] [id number] [place] [address] 487[address] May, [facility] [address] [place] [address] [id number] May, [facility] [id number] [place] [address] [id number] May, Diabetes type 2, uncontrolled E11.65 ; Encounter for immunization Z23 ; Osteopenia M85.80 and Allergic rhinitis due to pollen J30.1 [facility] [id number] [place] [address] [id number] May, Lumbago 724.2 [facility] [address] [id number] [id number] Apr, [facility] [id number] [place] [address] [id number] Apr, [facility] [id number] [place] [address] [id number] Apr, [facility] [id number] [place] [address] [id number] Apr, [facility] [id number] [place] [address]- 2546 Mar, [facility] [id number] [place] [address] [id number] Mar, [facility] [id number] [place] [address] [id number] Mar, [facility] [id number] [place] [address] [id number] Mar, [facility] [id number] [place] [address] [id number] Mar, [facility] [id number] [place] [address] 6[address]77- 2546 Mar, [facility] [id number] [place] [address] [id number] Mar, [facility] [id number] [place] [address] [id number] Mar, Diabetes with neurological manifestations, type II or unspecified type, 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.60 and Severe obesity (BMI 35.0-35.9 with comorbidity) 278.01 [facility] [id number] [place] [address] [id number] Mar, [facility] [id number], [place] [address] 25[address] Mar, [facility] [address]00565100[place], [place] [address] 2546 Feb, [facility] [place] [id number][place] [id number] Feb, [facility] [place] [place] [id number] [place] [address] [id number] Feb, [facility] [place] [id number][place] [id number] Feb, Diabetes with neurological manifestations, type II or unspecified type, 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.60 [facility] [place] [id number] [place] [address] [id number] Feb, [facility] [address]00565100[place], [place] [address]- 2546 Feb, [facility] [place] [id number], [place] [id number] Feb, [facility] [place] [id number][place] [id number] Feb, Follow up V67.9 ; Diabetes with neurological manifestations, type II or unspecified type, 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.60 and Congestive heart failure 428.0 [facility] [place] [id number], [place] [id number] Jan, [facility] [place] [id number], [place] [id number] Jan, [facility] [place] [place] [id number], [place] [id number] Jan, [facility] [place] [id number], [place] [id number] December, Otitis media with effusion 381.4 ; Left arm numbness 782.0 and Osteoporosis 733.00 [facility] [place] [id number][place] [id number] December, [facility] [place] [id number], [place] [id number] Nov, [facility] [address] [facility] [id number][place] [id number] Nov, Serous otitis media 381.4 and Lumbago 724.2 [facility] [place] [facility] [address]00565100[place], [place] [address]- 4[address] Nov, [facility] [place] [facility] [address]00565100[place], [place] [address]- 4676 Nov, [facility] [id number], [place] [id number] Oct, [facility] [place] [facility] [address]00565100[place], [place] [address] 1956 Oct, [facility] [id number] [place] [address] [id number] Oct, [facility] [place] [facility] [address]00565100[place], [place] [address]- 1756 Oct, [facility] [id number], [place] [id number] Oct, [facility] [place] [facility] [address]00565100[place], [place] [address]- 3716 Oct, [facility] [place] [facility] [address]00565100[place], [place] [address]- 7016 Sep, [facility] [place] [facility] [address]00565100[place], [place] [address]- 2726 Sep, [facility] [id number], [place] [id number] Sep, [facility] [place] [facility] [address] [id number], [place] [address]- 7296 Sep, [facility] [id number], [place] [id number] Aug, [facility] [place] [facility] [address]00565100[place], [place] [address]- 2546 Aug, [facility] [address] [id number] [id number] Aug, [facility] [place] [facility] [address] [facility] [id number], [place] [address]- 2546 Aug, [facility] [address] [facility] [id number], [place] [id number] Jul, [facility] [place] [facility] [address] [facility] [id number], [place] [address] 2546 Jul, [facility] [address] [facility] [id number], [place] [id number] Jul, [facility] [place] [facility] [address] [facility] [id number], [place] [address] 2546 Jul, [facility] [address] [facility] [id number], [place] [id number] Jul, [facility] [place] [facility] [address] [facility] [id number], [place] [address]- 2026 Jul, [facility] [address] [facility] [id number], [place] [id number] Jun, [facility] [place] [facility] [address] [facility] [id number], [place] [address]- 8826 Jun, [facility] [address] [facility] [id number], [place] [id number] May, [facility] [place] [facility] [address] [facility] [id number], [place] [address]- 7586 May, [facility] [address] [facility] [id number], [place] [id number] May, [facility] [place] [facility] [address] [facility] [id number], [place] [address]- 4333 May, [facility] [address] [facility] [id number], [place] [id number] May, [facility] [place] [facility] [address] [facility] [id number], [place] [address] 2546 May, [facility] [address] [facility] [id number], [place] [id number] May, [facility] [address] [facility] [id number], [place] [id number] May, [facility] [place] [facility] [address] [facility] [id number], [place] [address]- 9922 May, [facility] [place] [facility] [address] [facility] [id number], [place] [address]- 4025 May, [facility] [address] [facility] [id number], [place] [id number] May, [facility] [place] [facility] [address] [facility] [id number], [place] [address]- 4843 May, [facility] [place] [facility] [address] [facility] [id number], [place] [address]- 1433 Apr, [facility] [address] [facility] [id number], [place] [id number] Apr, [facility] [place] [facility] [address] [facility] [id number], [place] [address]- 6533 Apr, [facility] [address] [facility] [id number], [place] [id number] Apr, [facility] [address] [facility] [id number], [place] [id number] Apr, [facility] [place] [facility] [address] [facility] [id number], [place] [address]- 2245 Apr, [facility] [place] [facility] [address] [facility] [id number], [place] [address]- 5969 Apr, [facility] [address] [facility] [id number], [place] 855155698 Apr, [facility] [place] [facility] [address] [facility] [id number], [place] [address]- 3798 Apr, [facility] [address] [facility] [id number], [place] [id number] Apr, [facility] [place] [facility] [address] [facility] [id number], [place] [address]- 6290 Apr, [facility] [address] [facility] [id number], [place] [id number] Apr, [facility] [place] [facility] [address] [facility] [id number], [place] [address]- 9325 Apr, [facility] [address] [id number] [place] [id number] Apr, [facility] [place] [facility] [address] [facility] [id number] [place] [address]- 1408 Apr, [facility] [address] [id number] [place] [id number] Apr, [facility] [place] [facility] [address] [facility] [id number] [place] [address]- 0508 Apr, [facility] [address] [id number] [place] [id number] Apr, [facility] [place] [facility] [address] [facility] [id number] [place] [address]- 1557 Apr, [facility] [address] [facility] [id number] [place] [id number] Mar, [facility] [place] [facility] [address] [facility] [id number], [place] [address]- 8689 Mar, [facility] [address] [id number] [place] [id number] Mar, [facility] [address] [id number] [place] [id number] Mar, [facility] [place] [facility] [address] [facility] [id number], [place] [address]- 5065 Mar, [facility] [place] [facility] [address] [facility] [id number], [place] [address]- 7483 Mar, [facility] [address] [id number], [place] [id number] Mar, [facility] [place] [facility] [address] [facility] [id number], [place] [address]- 2912 Mar, [facility] [address] [id number] [place] [id number] Mar, [facility] [place] [facility] [address] [facility] [id number], [place] [address]- 0954 Mar, [facility] [address] [id number] [place] [id number] Mar, [facility] [place] [facility] [address] [id number] [place] [address]- 1320 Mar, [facility] [address] [id number] [place] [id number] Mar, [facility] [place] [facility] [address] [facility] [id number] [place] [address]- 0346 Mar, [facility] [address] [id number] [place] [id number] Mar, [facility] [place] [facility] [address] [id number] [place] [address]- 6131 Mar, [facility] [address] [id number] [place] [id number] Mar, [facility] [place] [facility] [address] [facility] [id number] [place] [address]- 9650 Mar, [facility] [address] [facility] [id number] [place] [id number] Mar, [facility] [place] [facility] [address] [facility] [id number] [place] [address]- 3892 Mar, [facility] [address] [id number] [place] [id number] Feb, [facility] [place] [facility] [address] [facility] [id number] [place] [address]- 5712 Feb, [facility] [address] [id number] [place] [id number] Feb, [facility] [place] [facility] [address] [facility] [id number] [place] [address]- 8568 Feb, [facility] [address] [id number] [place] [id number] Feb, [facility] [place] [facility] [address] [facility] [id number] [place] [address]- 3926 Feb, [facility] [address] [id number] [place] [id number] Feb, [facility] [place] [facility] [address] [facility] [id number] [place] [address]- 6796 Feb, [facility] [address] [id number] [place] [id number] Feb, [facility] [place] [facility] [address] [id number] [place] [address]- 8414 Feb, [facility] [address] [id number] [place] [id number] Feb, [facility] [place] [facility] [address] [id number] [place] [address]- 4008 Feb, [facility] [address] [id number] [place] [id number] Feb, [facility] [place] [facility] [address] [id number] [place] [address]- 2909 Feb, [facility] [address] [id number] [place] [id number] Feb, [facility] [place] [facility] [address] [facility] [id number] [place] [address]- 5208 Feb, [facility] [address] [id number] [place] [id number] Feb, [facility] [place] [facility] [address] [facility] [id number] [place] [address]- 1409 Feb, [facility] [address] [id number] [place] [id number] Feb, [facility] [address] [id number] [place] [id number] Feb, [facility] [place] [facility] [address] [facility] [id number], [place] [address]- 2154 Feb, [facility] [place] [facility] [address] [id number] [place] [address]- 9919 Feb, [facility] [address] [id number] [place] [id number] Feb, [facility] [place] [facility] [address] [facility] [id number] [place] [address]- 5911 Feb, [facility] [address] [id number] [place] [id number] Feb, [facility] [place] [facility] [address] [id number] [place] [address]- 5891 Feb, [facility] [address] [id number] [place] [id number] Feb, [facility] [place] [facility] [address] [id number] [place] [address]- 8183 Feb, [facility] [address] [facility] [id number] [place] [id number] Jan, [facility] [place] [facility] [address] [id number] [place] [address]- 5073 Jan, [facility] [place] [facility] [address] [id number] [place] [address]- 3774 Jan, [facility] [place] [facility] [address] [facility] [id number] [place] [address]- 6380 Jan, [facility] [place] [facility] [address] [id number] [place] [address]- 5918 Jan, [facility] [place] [facility] [address] [facility] [id number] [place] [address]- 2196 Jan, [facility] [address] [facility] [id number] [place] [id number] Jan, [facility] [place] [facility] [address] [facility] [id number] [place] [address]- 9452 Jan, [facility] [place] [facility] [address] [facility] [id number] [place] [address]- 0031 Jan, [facility] [place] [facility] [address] [facility] [id number] [place] 07549735- 7890 Jan, [facility] [address] [id number] [place] [id number] Jan, [facility] [address] [facility] [id number] [place] [id number] Jan, [facility] [place] [facility] [address] [id number] [place] [address]- 8213 Jan, [facility] [place] [facility] [address] [id number] [place] [address]- 7026 Jan, [facility] [address] [id number] [place] [id number] Jan, [facility] [address] [id number] [place] [id number] Jan, [facility] [place] [facility] [address] [facility] [id number] [place] [address]- 9166 Jan, [facility] [place] [facility] [address] [facility] [id number] [place] [address]- 6226 Jan, [facility] [place] [facility] [address] [id number] [place] [address]- 1153 Jan, [facility] [address] [facility] [id number] [place] [id number] December, [facility] [place] [facility] [address] [facility] [id number] [place] [address]- 8066 December, [facility] [place] [facility] [address] [facility] [id number], [place] [address]- 3675 December, [facility] [address] [facility] [id number] [place] [id number] December, [facility] [place] [facility] [address] [facility] [id number], [place] [address]- 0186 December, [facility] [address] [facility] [id number] [place] [id number] December, [facility] [place] [facility] [address] [facility] [id number], [place] [address]- 8526 December, [facility] [address] [id number] [place] [id number] December, [facility] [place] [facility] [address] [facility] [id number] [place] [address]- 4546 December, [facility] [address] [id number] [place] [id number] Nov, [facility] [place] [facility] [address] [facility] [id number] [place] [address]- 2416 Nov, [facility] [address] [facility] [id number], [place] 799071046 Nov, [facility] [place] [facility] [address] [facility] [id number] [place] [address]- 9817 Nov, [facility] [place] [facility] [address] [facility] [id number], [place] [address]- 8226 Nov, [facility] [place] [facility] [address] [facility] [id number] [place] [address]- 2776 Nov, [facility] [place] [facility] [address] [facility] [id number], [place] 795784- 4697 Oct, [facility] [address] [facility] [id number], [place] [id number] Oct, [facility] [place] [facility] [address] [id number], [place] [address]- 3903 Oct, [facility] [address] [facility] [id number], [place] [id number] Oct, [facility] [place] [facility] [address] [facility] [id number], [place] [address]- 0863 Oct, [facility] [address] [facility] [id number], [place] [id number] Sep, [facility] [place] [facility] [address]00565100[place], [place] [address]- 3113 Sep, [facility] [address] [facility] [id number], [place] [id number] Aug, [facility] [place] [facility] [address] [facility] [id number], [place] [address]- 7332 Aug, [facility] [address] [facility] [id number], [place] 686381651 Aug, [facility] [place] [facility] [address] [facility] [id number], [place] [address]- 3590 Aug, [facility] [place] [facility] [address] [facility] [id number], [place] [address]- 9093 Aug, [facility] [address] [facility] [id number], [place] [id number] Aug, [facility] [place] [facility] [address] [facility] [id number] [place] [address]- 5157 Aug, [facility] [place] [facility] [address] [facility] [id number], [place] [address]- 0146 Aug, [facility] [address] [facility] [id number] [place] [id number] Aug, [facility] [place] [facility] [address] [facility] [id number], [place] [address]- 6175 Aug, [facility] [address] [facility] [id number] [place] [id number] Jul, [facility] [place] [facility] [address] [facility] [id number], [place] [address]- 2756 Jul, [facility] [address] [facility] [id number] [place] [id number] Jul, [facility] [place] [facility] [address]00565100[place], [place] [address]- 2923 Jul, [facility] [address] [facility] [id number], [place] [id number] Jul, [facility] [place] [facility] [address] [id number], [place] [address]- 9806 Jul, [facility] [address] [facility] [id number], [place] [id number] Jul, [facility] [place] [facility] [address] [id number], [place] [address]- 8716 Jul, [facility] [address] [facility] [id number], [place] [id number] Jun, [facility] [place] [facility] [address] [facility] [id number], [place] [address]- 4862 Jun, [facility] [address] [facility] [id number] [id number] Jun, [facility] [address] [id number], [place] [address] Jun, [facility] [address] [facility] [id number], [place] [address] Jun, [facility] [address] [facility] [id number], [place] [address] Jun, [facility] [address] [id number] [place] [id number] Apr, [facility] [place] [address] [id number] [place] [id number] Mar, [facility] [place] [address] [id number] [place] [id number] Mar, [facility] [place] [address] [id number] [place] [id number] Feb, [facility] [place] [address] [id number] [place] [id number] Feb, [facility] [place] [address] [id number] [place] [id number] Feb, [facility] [place] [address] [id number] [place] [id number] December, [facility] [place] [address] [id number] [place] [id number] December, [facility] [id number], [place] [address] December, [facility] [address] [id number] [place] [id number] December, [facility] [address] [id number] [place] [id number] December, [facility] [address] [id number] [place] [id number] Nov, [facility] [address] [id number] [place] [address] Nov, [facility] [address] [id number] [place] [address] Nov, [facility] [place] [address] [id number] [place] [id number] Oct, [facility] [place] [address] [id number] [place] [id number] Sep, [facility] [place] [address] [id number] [place] [id number] Aug, [facility] [place] [facility] [address] [facility] [id number], [place] [address] Aug, [facility] [address] [id number] [place] [id number] Aug, [facility] [address] [id number] [place] [id number] Jul, [facility] [place] [facility] [address] [facility] [id number], [place] [address] Jul, [facility] [address] [id number] [place] [id number] Jul, [facility] [place] [facility] [address] [facility] [id number], [place] [address] Jul, [facility] [address] [id number] [id number] Jun, [facility] [place] [facility] [id number], [place] [address] Jun, [facility] [address] [id number] [id number] May, [facility] [place] [facility] [address] [facility] [id number], [place] [address] May, [facility] [address] [id number][place] [id number] May, [facility] [address] [facility] [id number], [place] [address] May, [facility] [address] [id number] [id number] Apr, [facility] [address] [id number] [place] [id number] Apr, [facility] [address] [id number] [place] [id number] Mar, [facility] [place] [address] [id number] [place] [id number] Mar, [facility] [place] [address] [id number] [place] [id number] Feb, [facility] [address] [id number] [place] [id number] Feb, [facility] [place] [address] [id number] [place] [id number] Jan, [facility] [place] [address] [id number] [place] [id number] Jan, [facility] [place] [address] [id number] [place] [address] Jan, [facility] [address] [id number] [place] [id number] Jan, [facility] [place] [address] [id number] [place] [id number] December, [facility] [place] [address] [id number] [place] [id number] December, [facility] [address] [facility] [id number], [place] [address] Nov, [facility] [address] [id number] [place] [id number] Nov, [facility] [address] [id number] [place] [id number] Nov, [facility] [place] [address] [id number] [place] [id number] Nov, [facility] [address] [id number] [place] [id number] Nov, [facility] [address] [facility] [id number], [place] [address] Oct, [facility] [address] [facility] [id number], [place] [address] Oct, [facility] [address] [id number] [place] [id number] Oct, [facility] [address] [id number] [place] [id number] Oct, [facility] [address] [id number] [place] [id number] Oct, [facility] [place] [address] [id number] [place] [id number] Oct, [facility] [place] [address] [id number] [place] [id number] Oct, [facility] [place] [address] [id number] [place] [id number] Oct, [facility] [place] [address] [id number] [place] [id number] Oct, [facility] [address] [facility] [id number], [place] [address] Oct, [facility] [place] [address] [id number] [place] [id number] Sep, [facility] [place] [address] [id number] [place] [id number] Sep, [facility] [place] [address] [id number] [place] [id number] Aug, [facility] [address] [id number] [place] [id number] Aug, [facility] [address] [facility] [id number], [place] [address] Jul, [facility] [address] [facility] [id number], [place] [address] Jul, [facility] [id number], [place] [address] Jul, [facility] [id number], [place] [address] Jul, [facility] [address] [facility] [id number], [place] [address] Jul, [facility] [address] [facility] [id number], [place] [address] Jul, [facility] [address] [facility] [id number][place] [address] Jul, [facility] [id number] [id number] Jul, [facility] [address] [facility] [id number], [place] [address] Jul, [facility] [address] [facility] [id number], [place] [address] Jul, [facility] [address] [id number], [place] [address] Jul, [facility] [address] [id number], [place] [address] Jul, [facility] [address] [id number], [place] [address] Jul, [facility] [address] [id number], [place] [address] Jul, IMMUNIZATIONS Vaccine Route Administration Date Status PPSV23 (PNEUMOVAX) IM Intramuscular Jun 25, 2017 Administered SOCIAL HISTORY Never Assessed REASON FOR VISIT Getting ready to go into [facility] (Jun.30), needing a diet sent over and an order stating he can check his own sugars. bam Onofre PLAN OF CARE Activity Details Follow Up next week Reason:[facility] DM VITAL SIGNS Height 69 in 2017-06-25 Weight 221.4 lbs 2017-06-25 Temperature 98.4 degrees Fahrenheit 2017-06-25 Heart Rate 94 bpm 2017-06-25 Respiratory Rate 16 2017-06-25 BMI 32.69 kg/m2 2017-06-25 Blood pressure systolic 124 mmHg 2017-06-25 Blood pressure diastolic 72 mmHg 2017-06-25 MEDICATIONS Medication Instructions Dosage Frequency Start Date End Date Duration Status Folic Acid 1 MG Orally Once a day 1 tablet 24h Jul, Active Levemir Flexpen 100 UNIT/ML Subcutaneous 2 times a day 35 units 12h Active ProAir HFA 108 (90 Base) mcg/act Inhalation 4 times a day 2 puffs as needed 6h Active Baclofen 20 MG Orally 2 times a day 1 tablet with food or milk 12h Active Tramadol HCl 50 MG Orally every 6 hrs 1 tablet as needed 6h Active Aspirin Adult Low Strength 81 MG Orally Once a day 1 tablet 24h Active Lancets - subcutaneously 3 times a day as directed 8h 07 Jun, 2016 Active Victoza 18 mg/3ml Subcutaneous Once a day 1.8 mg 24h Active Domingo Contour Test - TEST BLOOD SUGAR (4) TIMES DAILY. Active Walker - Rolator walker with seat and hand brakes Jan, Active UltiCare Micro Pen [place] 32G X 4 MM USE TWICE DAILY. Active Carvedilol 3.125 MG Orally 2 times a day 12h Active Atorvastatin Calcium 40 MG TAKE ONE (1) TABLET BY MOUTH DAILY... Active Prilosec 20 MG TAKE ONE (1) CAPSULE BY MOUTH ONCE DAILY... Active Triamcinolone Acetonide 0.5 % Externally Twice a day 1 application to affected area 12h 15 Oct, 2016 Active Megestrol Acetate 40 mg Orally Once a day at HS 1 tablet Active Escitalopram Oxalate 10 MG TAKE ONE (1) TABLET BY MOUTH DAILY... Active Nitroglycerin 0.4 MG Active Symbicort 160-4.5 mcg/act Inhalation Twice a day (morning and evening) inhale 2 puffs Active Cetirizine HCl 10 mg Orally Once a day 1 tablet as needed 24h 11 Nov, 2015 Active Mupirocin 2 % Externally Three times a day 1 application to affected area 8h 14 days Active RESULTS No Results PROCEDURES Procedure Date Ordered Result Body Site LAB NOT BILLED BY [facility] Jun 25, 2017 VENIPUNCT, ROUTINE* Jun 25, 2017 ADMN PNEUMCOC VAC NO FEE DAY Jun 25, 2017 PPSV23 (PNEUMOVAX) Jun 25, 2017 [facility] VISIT ESTABLISHED PATIENT Jun 25, 2017 SINGLE IMMUNIZATION ADMIN Jun 25, 2017 INSTRUCTIONS MEDICATIONS ADMINISTERED No Known Medications [...] in the future. Medical History 05/26/17 noted, shelter has ended and they feel he is [...] History Left eye retinal eye repair ([facility] 06/2014 Surgical History amputation, toe-right third toe ([facility]) 2013 Surgical [facility]2014 Surgical History heart cath with stent [...]
--- OUTSIDE RECORDS SUMMARY | 2018-06-20 10:34 | XMS REPORT ---
Author Author SATINDER GOOD [facility] Address [address] [place] [address] Care Team Providers Care Dray Driver Name Role Phone SATINDER GOOD Unavailable PROBLEMS Type Condition ICD9-CM Code [id number] Code Onset Dates Condition Status SNOMED Code Problem S/P coronary artery stent placement Z95.5 Active 131241163 Problem Type 2 diabetes mellitus with diabetic peripheral angiopathy without gangrene E11.51 Active 824855584 Problem Depression F32.9 Active 29722802 Problem Type 2 diabetes mellitus with diabetic neuropathy E11.40 Active 99053522 Problem Hyperlipidemia, unspecified hyperlipidemia E78.5 Active 97884471 Problem Coronary artery disease involving [place] coronary artery of [place]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 Active 8935219989065 Problem Peripheral vascular disease I73.9 Active 745193147 Problem Chronic obstructive pulmonary disease, unspecified COPD type J44.9 Active 02112236 Problem Osteomyelitis of right foot, unspecified chronicity M86.9 Active 79159644 Problem CKD (chronic kidney disease) stage 3, GFR 30-59 ml/min N18.3 Active 976637135 Problem Type 2 diabetes mellitus with diabetic retinopathy, macular edema presence unspecified, with unspecified retinopathy severity E11.319 Active 94693299 Problem GERD without esophagitis K21.9 Active 523887709 Problem Bilateral low back pain without sciatica M54.5 Active 116053562 Problem Mixed hyperlipidemia E78.2 Active 982320812 Problem Frequent falls R29.6 Active 398341620 Problem Chronic kidney disease, unspecified N18.9 Active 878705314 Problem Other chronic pain G89.29 Active 17390151 Problem Chronic diarrhea K52.9 Active 051043831 Problem Hypercholesterolemia E78.0 Active 89114941 Problem 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 Active 782938223 Problem 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 Active 932411959 Problem Obesity (BMI 30.0-34.9) E66.9 Active 277500355027566 Problem Comprehensive diabetic foot examination, type 2 DM, encounter for E11.9 Active 30737326 Problem Uses walker Z99.89 Active 898610735 Problem Aphasia R47.01 Active 27014267 Problem Insulin long-term use Z79.4 Active 031629708 Problem Fatigue, unspecified type R53.83 Active 94016995 Problem Type 2 diabetes mellitus with foot ulcer E11.621 Active 546235984 Problem Pain in left shoulder M25.512 Active 02865550 Problem Type 2 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 Active 749258936 Problem Diabetes type 2, uncontrolled E11.65 Active 991504391 Problem Personal history of carotid stenosis Z86.79 Active 449911097 Problem Essential hypertension I10 Active 00207290 Problem CKD (chronic kidney disease), stage 3 (moderate) N18.3 Active 066219803 Problem Chronic pain syndrome G89.4 Active 292846598 Problem High risk medication use Z79.899 Active 588101222 ALLERGIES No Information ENCOUNTERS Encounter Location Date Diagnosis [facility] [place] [address] [id number] December, Medicare annual wellness visit, subsequent Z00.00 [facility] [address] [id number] Nov, Other chronic pain G89.[address] [id number] Oct, [facility] [address] [id number] Oct, [facility] [address] [id number] Oct, Other chronic pain G89.29 [place] [address] [id number] Sep, Other chronic pain G89.29 [facility] [place] [address] [id number] Aug, CKD (chronic kidney disease), stage 3 (moderate) N18.3 ; Anemia, unspecified type D64.9 and Dilated pore of Ly L70.8 [facility] [place] [address] [id number] Aug, Other chronic pain G89.29 ; Pain in left shoulder M25.512 ; High risk medication use Z79.899 ; Uses walker Z99.89 ; Diabetes type 2, uncontrolled E11.65 and Depression F32.9 [facility] [id number] [place] [address] [id number] Aug, Chronic diarrhea K52.9 [place] [id number] [place] [address] [id number] Aug, Chronic diarrhea K52.9 ; Type 2 diabetes mellitus with diabetic neuropathy E11.40 ; Diabetes type 2, uncontrolled E11.65 ; Insulin long-term use Z79.4 ; Chronic obstructive pulmonary disease, unspecified COPD type J44.9 ; Chronic pain syndrome G89.4 ; Pain in left shoulder M25.512 ; Uses walker Z99.89 ; S/P coronary artery stent placement Z95.5 ; Mixed hyperlipidemia E78.2 and Essential hypertension I10 [place] [id number] [place] [address] [id number] Aug, [place] [id number] [place] [address] [id number] Jul, Diabetes type 2, uncontrolled E11.65 [place] [id number] [place] [address] [id number] Jul, Diabetes type 2, uncontrolled E11.65 ; Type 2 diabetes mellitus with diabetic neuropathy E11.40 ; Insulin long-term use Z79.4 and Chronic obstructive pulmonary disease, unspecified COPD type J44.9 [address] [place] [address] [id number] Jun, [address] [place] [address] [id number] Jun, Essential hypertension I10 [place] [id number] [place] [address] [id number] Jun, Essential hypertension I10 [place] [id number] [place] [address] [id number] Jun, Type 2 diabetes mellitus with diabetic neuropathy E11.40 ; Type 2 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 ; S/P coronary artery stent placement Z95.5 ; Obesity (BMI 30.0-34.9) E66.9 ; Mixed hyperlipidemia E78.2 ; Frequent falls R29.6 ; Chronic obstructive pulmonary disease, unspecified COPD type J44.9 ; Essential hypertension I10 ; Insulin long-term use Z79.4 and High risk medication use Z79.899 [address] [place] [address] [id number] May, Diarrhea, unspecified type R19.7 ; Type 2 diabetes mellitus with diabetic neuropathy E11.40 ; Chronic obstructive pulmonary disease, unspecified COPD type J44.9 ; S/P coronary artery stent placement Z95.5 ; High risk medication use Z79.899 ; Essential hypertension I10 ; Encounter for administration of vaccine Z23 and Encounter for immunization Z23 [address] [id number] [id number] May, Chronic obstructive pulmonary disease, unspecified COPD type J44.9 [address] [place] [address] [id number] May, Type 2 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 ; Encounter for immunization Z23 ; Needs flu shot Z23 ; Comprehensive diabetic foot examination, type 2 DM, encounter for E11.9 and Obesity (BMI 30.0-34.9) E66.9 [address] [place] [address] [id number] May, [address] [place] [address] [id number] Apr, [place] [id number] [place] [address] [id number] Apr, Essential hypertension I10 and Aphasia R47.01 [place] [id number] [place] [address] [id number] Apr, [place] [id number] [place] [address] [id number] Apr, Type 2 diabetes mellitus with diabetic neuropathy E11.40 ; Frequent falls R29.6 ; Essential hypertension I10 ; S/P coronary artery stent placement Z95.5 ; High risk medication use Z79.899 ; Hyperlipidemia, unspecified hyperlipidemia E78.5 ; CKD (chronic kidney disease), stage 3 (moderate) N18.3 ; Pain in left shoulder M25.512 and Chronic obstructive pulmonary disease, unspecified COPD type J44.9 [facility] [address] [place] [id number] [place] [address] [id number] Mar, [facility] [place] [address] [place] [id number] [place] [address] [id number] Mar, Type 2 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 ; Leg wound, left, initial encounter S81.802A ; Hx of shoulder surgery Z98.890 ; Acute pain of left shoulder M25.512 and Fall, initial encounter W19.XXXA [facility] [place] [address] [id number] Feb, Follow-up exam Z09 ; Hx of shoulder surgery Z98.890 ; Acute pain of left shoulder M25.512 ; Essential hypertension I10 and Leg wound, left, initial encounter S81.802A [facility] [place] [address] [place] [id number] [place] [address] [id number] Feb, [facility] [address] [place] [id number] [place] [address] [id number] Feb, [facility] [address] [place] [id number] [place] [address] [id number] Feb, Chronic obstructive pulmonary disease, unspecified COPD type J44.9 [facility] [address] [place] [id number] [place] [address] [id number] Feb, [facility] [address] [place] [id number] [place] [address] [id number] Jan, Generalized weakness R53.1 ; Exertional shortness of breath R06.02 and Fungal rash of trunk B36.9 [facility] [place] [address] [place] [id number] [place] [address] [id number] Jan, [facility] [address] [place] [id number] [place] [address] [id number] Jan, [facility] [address] [place] [id number] [place] [address] [id number] Jan, [facility] [address] [place] [id number] [place] [address] [id number] Jan, [address] [id number][place] [id number] December, High risk medication use Z79.899 [address] [id number] December, Type 2 diabetes mellitus with diabetic neuropathy E11.[address] [id number], [place] [id number] December, High risk medication use Z79.[address] [id number][place] [id number] Nov, Diabetes type 2, uncontrolled E11.65 [address] [place] [address] [id number] Nov, Medicare annual wellness visit, initial Z00.00 ; Bilateral low back pain without sciatica M54.5 ; Pain in left shoulder M25.512 ; Chronic pain syndrome G89.4 ; Type 2 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 ; High risk medication use Z79.899 and Encounter for immunization Z23 [address] [id number] Nov, Type 2 diabetes mellitus with diabetic neuropathy E11.40 ; Coronary artery disease involving [place] coronary artery of [place]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 and CKD (chronic kidney disease), stage 3 (moderate) N18.[address] [id number][place] [id number] Oct, Type 2 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 ; Chronic pain syndrome G89.4 ; Chronic obstructive pulmonary disease, unspecified COPD type J44.9 ; Chronic kidney disease, unspecified N18.9 and Rash R21 [place] [address] [facility] [id number][place] [id number] Oct, Type 2 diabetes mellitus with diabetic neuropathy E11.[address] [id number], [place] [id number] Oct, Rash R21 and Impetigo L01.[address] [id number], [place] [id number] Oct, Chronic pain syndrome G89.4 [facility] [id number], [place] [id number] Oct, [facility] [id number] [place] [address] [id number] Sep, Sebaceous cyst L72.3 [facility] [id number], [place] [id number] Sep, Sebaceous cyst L72.3 [facility] [address] [place] [id number] [place] [address] [id number] Sep, Chronic pain syndrome G89.4 ; Pain in left shoulder M25.512 and Effusion of olecranon bursa, left M25.422 [facility] [address] [id number] [address] Aug, [facility] [id number] [place] [address] [id number] Aug, [facility] [address] [place] [id number] [place] [address] [id number] Aug, Mixed hyperlipidemia E78.2 and Chronic kidney disease, unspecified N18.9 [facility] [address] [place] [id number] [place] [address] [id number] Jul, Type 2 diabetes mellitus with diabetic neuropathy E11.40 ; Essential hypertension I10 and S/P coronary artery stent placement Z95.5 [facility] [id number] [place] [address] [id number] Jul, 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 [facility] [id number] [place] [address] [id number] Jul, Diabetes type 2, uncontrolled E11.65 ; Essential hypertension I10 and 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 [place] [id number] [place] [address] [id number] Jul, [facility] [id number] [place] [address] [id number] Jul, [facility] [id number] [place] [address] [id number] Jul, [facility] [address] [place] [id number] [place] [address] [id number] Jul, Chronic obstructive pulmonary disease, unspecified COPD type J44.9 [address] [place] [address] [id number] Jun, CKD (chronic kidney disease), stage 3 (moderate) N18.3 and Anemia, unspecified type D64.9 [address] [place] [address] [id number] Jun, Type 2 diabetes mellitus with diabetic neuropathy E11.40 ; Decreased GFR R94.4 ; CKD (chronic kidney disease), stage 3 (moderate) N18.3 and Decreased hemoglobin R71.0 [place] [id number] [place] [address] [id number] Jun, CKD (chronic kidney disease), stage 3 (moderate) N18.3 and Anemia, unspecified type D64.9 [address] [place] [address] [id number] Jun, Type 2 diabetes mellitus with diabetic neuropathy E11.40 ; Decreased GFR R94.4 and CKD (chronic kidney disease), stage 3 (moderate) N18.3 [address] [place] [address] [id number] Jun, Type 2 diabetes mellitus with diabetic neuropathy E11.40 and Essential hypertension I10 [address] [place] [address] [id number] Jun, [address] [place] [address] [id number] Jun, [place] [id number] [place] [address] [id number] Jun, Type 2 diabetes mellitus with diabetic neuropathy E11.40 ; S/P coronary artery stent placement Z95.5 ; Chronic obstructive pulmonary disease, unspecified COPD type J44.9 ; Essential hypertension I10 ; GERD without esophagitis K21.9 ; Peripheral vascular disease I73.9 ; Mixed hyperlipidemia E78.2 and Hospital discharge follow-up Z09 [address] [place] [address] [id number] Jun, [address] [id number] May, Depression F32.9 and Hyperlipidemia, unspecified hyperlipidemia E78.5 [facility] [address]005[address] [id number] May, [address] [place] [address] [id number] May, [place] [id number] [place] [address] [id number] May, Essential hypertension I10 ; Chronic pain syndrome G89.4 ; Pain in left shoulder M25.512 ; High risk medication use Z79.899 ; Chronic obstructive pulmonary disease, unspecified COPD type J44.9 ; S/P coronary artery stent placement Z95.5 ; Personal history of carotid stenosis Z86.79 ; Hyperlipidemia, unspecified hyperlipidemia E78.5 ; Decreased GFR R94.4 and Type 2 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 [place] [id number] [place] [address] [id number] May, Hemoglobin decreased R71.0 and Decreased GFR R94.4 [place] [id number] [place] [address] [id number] May, Hemoglobin decreased R71.0 and Decreased GFR R94.4 [place] [id number] [place] [address] [id number] May, [address] [place] [address] [id number] May, [place] [id number] [place] [address] [id number] Apr, [place] [id number] [place] [address] [id number] Apr, Type 2 diabetes mellitus with foot [...] unspecified hyperlipidemia E78.5 and Essential hypertension I10 [facility] [id number] [place] [address] [id number] Apr, [facility] [address] [place] [id number] [place] [address] [id number] Mar, [facility] [id number] [place] [address] [id number] Mar, [facility] [address] [place] [id number] [place] [address] [phone] Mar, [facility] [address] [place] [id number] [place] [address] [id number] Feb, [facility] [address] [place] [id number] [place] [address] [id number] Feb, [facility] [address] [place] [id number] [place] [address] [id number] Feb, [facility] [address] [place] [id number] [place] [address] [id number] Jan, Type 2 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 ; Hypercholesterolemia E78.0 ; Chronic pain syndrome G89.4 ; Pain in left shoulder M25.512 and High risk medication use Z79.899 [facility] [address] [place] [id number] [place] [address] [id number] Jan, [facility] [address] [place] [id number] [place] [address] [id number] Jan, [facility] [address] [place] [id number] [place] [address] [id number] December, [facility] [address] [place] [id number] [place] [address] [id number] December, [facility] [address]00565100[place], [place] [address] December, Diabetes type 2, uncontrolled E11.65 ; Type 2 diabetes mellitus with diabetic neuropathy E11.40 ; Peripheral vascular disease I73.9 ; 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 and 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 [facility] [id number] [place] [address] [id number] Nov, [facility] [address] [id number], [place] [id number] Nov, [facility] [address] [id number] [place] [id number] Nov, [facility] [address] [id number], [place] [id number] Nov, Right hip pain M25.551 [facility] [address] [place] [id number] [place] [address] [phone]- 5383 Nov, [facility] [address] [place] [id number] [place] [address] 17997- 2546 Nov, [facility] [place] [id number] [place] [address] [id number] Nov, Diabetes with neurological manifestations, type II or unspecified type, 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.60 [facility] [id number] [place] [address] [id number] Nov, [facility] [place] [id number] [place] [address] [id number] Nov, [facility] [place] [address] [id number], [place] [id number] Oct, Diabetes type 2, uncontrolled E11.65 ; Type 2 diabetes mellitus with diabetic neuropathy, unspecified E11.40 and Low back pain M54.5 [facility] [address] [id number], [place] [id number] Oct, [facility] [address] [id number], [place] [id number] Oct, [facility] [address] [id number], [place] [id number] Oct, [facility] [place] [address] [id number], [place] [id number] Sep, [facility] [place] [address] [place] [id number] [place] [address] [id number] Sep, [facility] [address]00565100[place], [place] [address] 9[address] Sep, [facility] [place] [id number] [place] [address] [id number] Sep, [facility] [address] [facility] [id number][place] [id number] Sep, [facility] [id number] [place] [address] [id number] Aug, 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 [facility] [id number], [place] [id number] Aug, [facility] [id number] [place] [address] [id number] Aug, Allergic rhinitis due to pollen J30.[address] [id number][place] [id number] Jul, [facility] [id number] [place] [address] [id number] Jul, [facility] [id number] [place] [address] [id number] Jul, [place] [id number] [place] [address] [id number] Jun, [facility] [id number] [place] [address] [id number] Jun, Thumb tendonitis M77.8 and Ringing in ear, bilateral H93.13 [address] [id number], [place] [id number] Jun, [facility] [id number], [place] [id number] May, [facility] [address] [place] [id number] [place] [address] 70931- [phone] May, [facility] [address] [place] [address] [phone] May, Pre-op evaluation Z01.818 ; Encounter for immunization Z23 ; Type 2 diabetes mellitus with diabetic peripheral angiopathy without gangrene E11.51 ; Insulin long-term use Z79.4 ; Type 2 diabetes mellitus with foot ulcer E11.621 ; Peripheral vascular disease I73.9 ; Coronary artery disease involving [place] coronary artery of [place]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 ; S/P coronary artery stent placement Z95.5 ; Osteomyelitis of right foot, unspecified chronicity M86.9 and Chronic obstructive pulmonary disease, unspecified COPD type J44.9 [facility] [address] [phone]- [phone] May, [facility] [address] [place] [id number] [place] [address] [id number] May, [facility] [address] [id number] May, Diabetes type 2, uncontrolled E11.65 ; Encounter for immunization Z23 ; Osteopenia M85.80 and Allergic rhinitis due to pollen J30.1 [facility] [address] [place] [id number] [place] [address] [id number] May, Lumbago 724.2 [facility] [id number] [place] [address] [id number] Apr, [address] [id number] Apr, [facility] [address] [place] [id number] [place] [address] [id number] Apr, [facility] [address] [place] [id number] [place] [address] [id number] Apr, [facility] [address] [place] [id number] [place] [address] [phone] Mar, [facility] [id number] [place] [address] [id number] Mar, [facility] [id number] [place] [address] [id number] Mar, [facility] [address] [place] [id number] [place] [address] [id number] Mar, [facility] [id number] [place] [address] [id number] Mar, [facility] [address] [place] [id number] [place] [address] [phone] Mar, [facility] [id number] [place] [address] [id number] Mar, [facility] [id number], [place] [id number] Mar, Diabetes with neurological manifestations, type II or unspecified type, 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.60 and Severe obesity (BMI 35.0-35.9 with comorbidity) 278.01 [facility] [address] [id number] [place] [id number] Mar, [facility] [id number] [place] [address] [phone]- [phone] Mar, [facility] [id number] [place] [address] [phone]- [phone] Feb, [facility] [address] [id number] [place] [id number] Feb, [facility] [facility] [address] [id number] [place] [id number] Feb, [facility] [address] [id number] [place] [id number] Feb, Diabetes with neurological manifestations, type II or unspecified type, 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.60 [facility] [id number] [place] [id number] Feb, [facility] [id number] [place] [address]- 2546 Feb, [facility] [address] [id number], [place] [id number] Feb, [facility] [id number] [place] [id number] Feb, Follow up V67.9 ; Diabetes with neurological manifestations, type II or unspecified type, 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.60 and Congestive heart failure 428.0 [facility] [address] [id number] [place] [id number] Jan, [facility] [address] [id number] [place] [id number] Jan, [facility] [address] [id number] [place] [id number] Jan, [facility] [address] [id number][place] [id number] December, Otitis media with effusion 381.4 ; Left arm numbness 782.0 and Osteoporosis 733.00 [facility] [id number], [place] [id number] December, [facility] [id number], [place] [id number] Nov, [facility] [id number], [place] [address] Nov, Serous otitis media 381.4 and Lumbago 724.2 [facility] [id number] [place] [address] 67156- 0352 Nov, [facility] [place] [facility] [id number] [place] [address] 64250- 2726 Nov, [facility] [id number], [place] [id number] Oct, [facility] [id number] [place] [address] 45302- 4696 Oct, [facility] [id number], [place] [address]30 Oct, [facility] [id number] [place] [address] 214708- 8975 Oct, [facility] [id number], [place] [id number] Oct, [facility] [id number] [place] [address] 28937- 9196 Oct, [facility] [place] [facility] [address]00565100[place], [place] [address]- 5566 Sep, [facility] [place] [facility] [address]00565100[place], [place] [address]- 6676 Sep, [facility] [id number], [place] [address]86 Sep, [facility] [address]00565100[place], [place] [address]- 4536 Sep, [facility] [address] [id number] [place] [id number] Aug, [facility] [place] [facility] [address] [id number], [place] [address]- 4580 Aug, [facility] [address] [id number] [place] [id number] Aug, [facility] [place] [facility] [address] [facility] [id number], [place] [address]- 3210 Aug, [facility] [address] [id number], [place] 4[place]01537 Jul, [facility] [place] [facility] [address] [facility] [id number], [place] [address]- 6276 Jul, [facility] [address] [facility] [id number], [place] [id number] Jul, [facility] [place] [facility] [address] [facility] [id number], [place] [address] 1971 Jul, [facility] [address] [facility] [id number], [place] [id number] Jul, [facility] [place] [facility] [address] [facility] [id number], [place] [address]- 0236 Jul, [facility] [address] [facility] [id number], [place] 840409269 Jun, [facility] [place] [facility] [address] [facility] [id number], [place] [address]- 8431 Jun, [facility] [address] [facility] [id number], [place] [id number] May, [facility] [place] [facility] [address] [facility] [id number], [place] [address]- 4000 May, [facility] [address] [id number] [place] [id number] May, [facility] [place] [facility] [address] [facility] [id number] [place] [address]- 2921 May, [facility] [address] [id number], [place] [address]42108454 May, [facility] [place] [facility] [address] [facility] [id number], [place] [address]- 9890 May, [facility] [address] [id number], [place] 139187200 May, [facility] [address] [facility] [id number], [place] 840920087 May, [facility] [place] [facility] [address] [facility] [id number], [place] [address]- 7711 May, [facility] [place] [facility] [address] [facility] [id number], [place] [address]- 0572 May, [facility] [address] [facility] [id number], [place] [id number] May, [facility] [place] [facility] [address] [facility] [id number], [place] [address]- 9901 May, [facility] [place] [facility] [address]00565100[place], [place] [address]- 6107 Apr, [facility] [address] [facility] [id number], [place] 849791443 Apr, [facility] [place] [facility] [address] [facility] [id number], [place] [address]- 4074 Apr, [facility] [address] [facility] [id number], [place] 429110072 Apr, [facility] [address] [facility] [id number], [place] [id number] Apr, [facility] [place] [facility] [address] [facility] [id number], [place] [address]- 4852 Apr, [facility] [place] [facility] [address] [facility] [id number], [place] [address]- 6079 Apr, [facility] [address] [facility] [id number], [place] 923936194 Apr, [facility] [place] [facility] [address] [facility] [id number], [place] [address]- 4027 Apr, [facility] [address] [facility] [id number], [place] [id number] Apr, [facility] [place] [facility] [address] [facility] [id number], [place] [address]- 5792 Apr, [facility] [address] [facility] [id number] [place] [id number] Apr, [facility] [place] [facility] [address] [facility] [id number] [place] [address]- 1486 Apr, [facility] [address] [facility] [id number] [place] 838514500 Apr, [facility] [place] [facility] [address] [facility] [id number], [place] [address]- 4586 Apr, [facility] [address] [facility] [id number] [place] [id number] Apr, [facility] [place] [facility] [address] [id number], [place] [address]- 6725 Apr, [facility] [address] [facility] [id number], [place] [id number] Apr, [facility] [place] [facility] [address]00565100[place], [place] [address]- 0699 Apr, [facility] [address] [facility] [id number], [place] [id number] Mar, [facility] [place] [facility] [address] [facility] [id number], [place] [address]- 0608 Mar, [facility] [address] [id number], [place] [id number] Mar, [facility] [address] [facility] [id number], [place] 810317049 Mar, [facility] [place] [facility] [address] [facility] [id number], [place] [address]- 1306 Mar, [facility] [place] [facility] [address] [facility] [id number], [place] [address]- 0046 Mar, [facility] [address] [facility] [id number], [place] 090637811 Mar, [facility] [place] [facility] [address] [facility] [id number], [place] [address]- 5911 Mar, [facility] [address] [id number] [place] 826959019 Mar, [facility] [place] [facility] [address] [id number] [place] [address]- 4410 Mar, [facility] [address] [id number] [place] [id number] Mar, [facility] [place] [facility] [address] [facility] [id number] [place] [address]- 7831 Mar, [facility] [address] [id number] [place] 075974322 Mar, [facility] [place] [facility] [address] [facility] [id number] [place] [address]- 0887 Mar, [facility] [address] [facility] [id number] [place] [id number] Mar, [facility] [place] [facility] [address] [place] [address]- 6552 Mar, [facility] [address] [facility] [id number] [place] 936181935 Mar, [facility] [place] [facility] [address] [facility] [id number] [place] [address]- 5520 Mar, [facility] [address] [facility] [id number] [place] [id number] Mar, [facility] [place] [facility] [address] [facility] [id number] [place] [address]- 5587 Mar, [facility] [address] [id number] [place] [id number] Feb, [facility] [place] [facility] [address] [facility] [id number] [place] [address]- 8416 Feb, [facility] [address] [id number] [place] 586112599 Feb, [facility] [place] [facility] [address] [facility] [id number] [place] 26926167- 8006 Feb, [facility] [address] [id number] [place] [id number] Feb, [facility] [place] [facility] [address] [id number] [place] [address]- 6115 Feb, [facility] [address] [id number] [place] [id number] Feb, [facility] [place] [facility] [address] [id number] [place] [address]- 4604 Feb, [facility] [address] [id number] [place] 524089753 Feb, [facility] [place] [facility] [address] [id number] [place] [address]- 6314 Feb, [facility] [address] [id number] [place] [id number] Feb, [facility] [place] [facility] [address] [facility] [id number] [place] [address]- 2895 Feb, [facility] [address] [id number] [place] [id number] Feb, [facility] [place] [facility] [address] [facility] [id number] [place] [address]- 8396 Feb, [facility] [address] [id number] [place] [id number] Feb, [facility] [place] [facility] [address] [facility] [id number] [place] [address]- 0622 Feb, [facility] [address] [id number] [place] [id number] Feb, [facility] [place] [facility] [address] [facility] [id number] [place] [address]- 2460 Feb, [facility] [address] [id number] [place] 4509[place]192 Feb, [facility] [address] [id number] [place] [id number] Feb, [facility] [place] [facility] [address] [facility] [id number] [place] [address]- 9649 Feb, [facility] [place] [facility] [address] [facility] [id number] [place] [address]- 4302 Feb, [facility] [address] [id number] [place] [id number] Feb, [facility] [place] [facility] [address] [id number] [place] [address]- 2603 Feb, [facility] [address] [id number] [place] [id number] Feb, [facility] [place] [facility] [address] [id number] [place] [address]- 0052 Feb, [facility] [address] [id number] [place] [id number] Feb, [facility] [place] [facility] [address] [id number] [place] [address]- 2212 Feb, [facility] [address] [id number] [place] 665228639 Jan, [facility] [place] [facility] [address] [id number] [place] [address]- 1345 Jan, [facility] [place] [facility] [address] [id number] [place] [address]- 1432 Jan, [facility] [place] [facility] [address] [facility] [id number] [place] [address]- 5264 Jan, [facility] [place] [facility] [address] [facility] [id number] [place] [address]- 0448 Jan, [facility] [place] [facility] [address] [id number] [place] [address]- 1777 Jan, [facility] [address] [id number] [place] [id number] Jan, [facility] [place] [facility] [address] [id number] [place] [address]- 2676 Jan, [facility] [place] [facility] [address] [facility] [id number] [place] 41904837- 9465 Jan, [facility] [place] [facility] [address] [id number] [place] [address]- 9043 Jan, [facility] [address] [id number] [place] [id number] Jan, [facility] [address] [id number] [place] [id number] Jan, [facility] [place] [facility] [address] [id number] [place] [address]- 9066 Jan, [facility] [place] [facility] [address] [id number] [place] [address]- 0556 Jan, [facility] [address] [id number] [place] [id number] Jan, [facility] [address] [id number] [place] [id number] Jan, [facility] [place] [facility] [address] [facility] [id number] [place] [address]- 5816 Jan, [facility] [place] [facility] [address] [facility] [id number] [place] [address]- 3296 Jan, [facility] [place] [facility] [address] [facility] [id number], [place] [address]- 9935 Jan, [facility] [address] [facility] [id number] [place] [id number] December, [facility] [place] [facility] [address] [facility] [id number], [place] [address]- 9402 December, [facility] [place] [facility] [address] [facility] [id number], [place] [address]- 7894 December, [facility] [address] [id number], [place] [id number] December, [facility] [place] [facility] [address] [id number] [place] [address]- 6116 December, [facility] [address] [id number] [place] [id number] December, [facility] [place] [facility] [address] [facility] [id number] [place] [address]- 8756 December, [facility] [address] [facility] [id number], [place] 852544509 December, [facility] [place] [facility] [address] [facility] [id number], [place] [address]- 6936 December, [facility] [address] [facility] [id number], [place] [id number] Nov, [facility] [place] [facility] [address] [facility] [id number] [place] [address]- 2466 Nov, [facility] [address] [facility] [id number], [place] [id number] Nov, [facility] [place] [facility] [address] [facility] [id number], [place] [address]- 4268 Nov, [facility] [place] [facility] [address] [facility] [id number] [place] [address]- 5543 Nov, [facility] [place] [facility] [address] [facility] [id number], [place] [address]- 0422 Nov, [facility] [place] [facility] [address]00565100[place], [place] [address]- 9491 Oct, [facility] [id number], [place] [id number] Oct, [facility] [place] [facility] [address]00565100[place], [place] [address]- 4111 Oct, [facility] [id number], [place] 945896331 Oct, [facility] [place] [facility] [address] [id number], [place] [address]- 0459 Oct, [facility] [address] [facility] [id number], [place] 467719795 Sep, [facility] [place] [facility] [address] [facility] [id number], [place] [address]- 0689 Sep, [facility] [address] [facility] [id number], [place] [id number] Aug, [facility] [place] [facility] [address] [facility] [id number], [place] [address]- 1178 Aug, [facility] [address] [facility] [id number], [place] [id number] Aug, [facility] [place] [facility] [address] [facility] [id number] [place] [address]- 6811 Aug, [facility] [place] [facility] [address] [facility] [id number], [place] [address]- 8862 Aug, [facility] [address] [facility] [id number] [place] [id number] Aug, [facility] [place] [facility] [address] [facility] [id number], [place] [address]- 0332 Aug, [facility] [place] [facility] [address] [facility] [id number] [place] [address]- 7641 Aug, [facility] [address] [facility] [id number] [place] [id number] Aug, [facility] [place] [facility] [address]00565100[place], [place] [address]- 9249 Aug, [facility] [id number], [place] [id number] Jul, [facility] [place] [facility] [address] [facility] [id number], [place] [address]- 9378 Jul, [facility] [address] [facility] [id number], [place] [id number] Jul, [facility] [place] [facility] [address] [facility] [id number], [place] [address]- 2634 Jul, [facility] [address] [facility] [id number], [place] 077152292 Jul, [facility] [place] [facility] [address] [facility] [id number], [place] [address]- 6152 Jul, [facility] [address] [facility] [id number], [place] [id number] Jul, [facility] [place] [facility] [address] [facility] [id number], [place] [address]- 9449 Jul, [facility] [address] [facility] [id number] [place] 977854946 Jun, [facility] [place] [facility] [address] [facility] [id number], [place] [address]- 8636 Jun, [facility] [address] [id number] [place] [id number] Jun, [facility] [address] [facility] [id number], [place] [address]- 4323 Jun, [facility] [address] [facility] [id number], [place] [address] 2542 Jun, [facility] [address] [facility] [id number], [place] [address]- 7710 Jun, [facility] [address] [id number] [place] [id number] Apr, [facility] [address] [id number] [place] [id number] Mar, [facility] [address] [id number] [place] [id number] Mar, [facility] [address] [id number] [place] 129612479 Feb, [facility] [address] [id number] [place] 619824550 Feb, [facility] [address] [id number] [place] 908878908 Feb, [facility] [address] [id number] [place] 226272461 December, [facility] [address] [id number] [place] [id number] December, [facility] [address] [facility] [id number], [place] [address]- 2546 December, [facility] [address] [id number] [place] [id number] December, [facility] [address] [id number] [place] 890803847 December, [facility] [address] [id number] [place] [id number] Nov, [facility] [address] [id number] [place] [id number] Nov, [facility] [address] [id number] [place] [id number] Nov, [facility] [address] [id number] [place] [id number] Oct, [facility] [address] [id number] [place] [id number] Sep, [facility] [address] [id number] [place] [id number] Aug, [facility] [address] [facility] [id number][place] [address] Aug, [facility] [address] [id number] [place] [id number] Aug, [facility] [address] [id number] [place] [id number] Jul, [facility] [address]005[address], [place] [address] Jul, [facility] [address] [id number][place] [id number] Jul, [facility] [address] [address] Jul, [facility] [address] [facility] [id number][place] [id number] Jun, [facility] [address]65[address] [id number] Jun, [facility] [address] [facility] [id number][place] [id number] May, [facility] [address] [facility] [id number], [place] [address] May, [facility] [address] [id number][place] [id number] May, [facility] [address] [facility] [id number], [place] [address] May, [facility] [address] [id number][place] [id number] Apr, [facility] [address] [id number][place] [id number] Apr, [facility] [address] [id number] [place] [id number] Mar, [facility] [place] [address] [id number] [place] [id number] Mar, [facility] [place] [address] [id number] [place] [id number] Feb, [facility] [place] [address] [id number] [place] [id number] Feb, [facility] [place] [address] [id number] [place] [id number] Jan, [facility] [place] [address] [id number] [place] [id number] Jan, [facility] [address] [id number] [place] [id number] Jan, [facility] [address] [id number] [place] [id number] Jan, [facility] [address] [id number] [place] [id number] December, [facility] [address] [id number] [place] [id number] December, [facility] [address] [facility] [id number], [place] [address] Nov, [facility] [address] [id number] [place] [id number] Nov, [facility] [address] [id number] [place] [id number] Nov, [facility] [address] [id number] [place] [id number] Nov, [facility] [address] [id number] [place] [id number] Nov, [facility] [address] [facility] [id number], [place] [address] Oct, [facility] [address] [facility] [id number], [place] [address] Oct, [facility] [address] [id number], [place] [id number] Oct, [facility] [address] [id number] [place] [id number] Oct, [facility] [address] [id number] [place] [id number] Oct, [facility] [address] [id number] [place] [id number] Oct, [facility] [place] [address] [id number] [place] [id number] Oct, [facility] [place] [address] [id number] [place] [id number] Oct, [facility] [place] [address] [id number] [place] [id number] Oct, [facility] [address] [id number], [place] [address] Oct, [facility] [address] [id number] [place] [id number] Sep, [facility] [address] [id number] [place] 000224[address] Sep, [facility] [address] [id number] [place] [id number] Aug, [facility] [address] [id number] [place] [id number] Aug, [facility] [address]65[address], [place] [address] Jul, [facility] [address] [id number], [place] [address] Jul, [facility] [address] [id number], [place] [address] Jul, [facility] [id number] [place] [address] Jul, [facility] [address]65100[place], [place] [address] Jul, [facility] [id number] [place] [address] Jul, [facility] [address] [id number], [place] [address] Jul, [facility] [address]65[address], [place] [address] Jul, [facility] [address] [id number], [place] [address] Jul, [facility] [address] [address] Jul, [facility] [address]65[address], [place] [address] Jul, [facility] [address], [place] [address] Jul, [facility] [address], [place] [address] Jul, [facility] [address] [id number], [place] [address] Jul, IMMUNIZATIONS No Known Immunizations SOCIAL HISTORY Never Assessed REASON FOR VISIT Triage--ADaviedRN PLAN OF CARE VITAL SIGNS MEDICATIONS Unknown Medications RESULTS No Results PROCEDURES No Known procedures INSTRUCTIONS MEDICATIONS ADMINISTERED No Known Medications MEDICAL (GENERAL) HISTORY Type Description Date Medical History peripheral vascular disease s/p angioplasty w/ stent R leg Medical History hypertension Medical 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 Secondary to ATN from [facility] 4.3 Medical History HX of dry [...] History Left eye retinal eye repair ([facility] 06/2014 Surgical History amputation, toe-right third toe ([place]) 2013 [facility] Surgical History heart cath with stent [...]
--- OUTSIDE RECORDS SUMMARY | 2018-06-20 10:37 | XMS REPORT ---
Author Author SATINDER GOOD [facility] Address [address] [place] [address] Care Team Providers Care Production Controller Name Role Phone SATINDER GOOD Unavailable PROBLEMS Type Condition ICD9-CM Code XBC16-PT Code Onset Dates Condition Status SNOMED Code Problem Chronic obstructive pulmonary disease, unspecified COPD type J44.9 Active 86879968 Problem Peripheral vascular disease I73.9 Active 179755497 Problem Type 2 diabetes mellitus with diabetic neuropathy E11.40 Active 16242988 Problem S/P coronary artery stent placement Z95.5 Active 818157311 Problem Osteomyelitis of right foot, unspecified chronicity M86.9 Active 60310270 Problem Type 2 diabetes mellitus with diabetic retinopathy, macular edema presence unspecified, with unspecified retinopathy severity E11.319 Active 84149637 Problem Bilateral low back pain without sciatica M54.5 Active 352185717 Problem 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 Active 777518751 Problem 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 Active 588593218 Problem Frequent falls R29.6 Active 422282212 Problem Hypercholesterolemia E78.0 Active 91627565 Problem Comprehensive diabetic foot examination, type 2 DM, encounter for E11.9 Active 43551083 Problem Type 2 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 Active 743686703 Problem Obesity (BMI 30.0-34.9) E66.9 Active 860771905530284 Problem Uses walker Z99.89 Active 090676376 Problem Aphasia R47.01 Active 59659672 Problem Functional diarrhea K59.1 Active 08725780 Problem Fecal urgency R15.2 Active 06058926 Problem Fatigue, unspecified type R53.83 Active 25089816 Problem High risk medication use Z79.899 Active 506215758 Problem Diabetes type 2, uncontrolled E11.65 Active 651142092 Problem Personal history of carotid stenosis Z86.79 Active 294376084 Problem Other chronic pain G89.29 Active 65438860 Problem Chronic diarrhea K52.9 Active 353245046 Problem Full incontinence of feces R15.9 Active 838896509099709 Problem Mixed stress and urge urinary incontinence N39.46 Active 112116362 Problem Hyperlipidemia, unspecified hyperlipidemia E78.5 Active 22853098 Problem Essential hypertension I10 Active 40643911 Problem Coronary artery disease involving [place] coronary artery of [place]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 Active 3768766410056 Problem CKD (chronic kidney disease), stage 3 (moderate) N18.3 Active 286100148 Problem Insulin long-term use Z79.4 Active 687419824 Problem Chronic pain syndrome G89.4 Active 840175848 Problem Depression F32.9 Active 53582260 Problem Pain in left shoulder M25.512 Active 12534810 Problem Type 2 diabetes mellitus with foot ulcer E11.621 Active 709580561 Problem Mixed hyperlipidemia E78.2 Active 190593162 Problem Type 2 diabetes mellitus with diabetic peripheral angiopathy without gangrene E11.51 Active 143469677 Problem Chronic kidney disease, unspecified N18.9 Active 031559314 Problem CKD (chronic kidney disease) stage 3, GFR 30-59 ml/min N18.3 Active 270827459 Problem GERD without esophagitis K21.9 Active 819653086 ALLERGIES No Known Allergies ENCOUNTERS Encounter Location Date Diagnosis [address] [id number] [id number] December, Diabetes type 2, uncontrolled E11.65 ; [...] type J44.9 and Other chronic pain G89.29 [facility] [address] [facility] [id number] [address] December, [id number] [place] [address] [id number] December, Medicare annual wellness visit, subsequent Z00.00 ; Type 2 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 ; Chronic obstructive pulmonary disease, unspecified COPD type J44.9 ; Depression F32.9 ; Peripheral vascular disease I73.9 ; Coronary artery disease involving [place] coronary artery of [place]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 ; Hypercholesterolemia E78.0 ; GERD without esophagitis K21.9 and Chronic kidney disease, unspecified N18.9 [place] [id number] [place] [address] [id number] December, Mixed stress and urge urinary incontinence N39.46 ; Full incontinence of feces R15.9 ; Fecal urgency R15.2 ; Functional diarrhea K59.1 and Type 2 diabetes mellitus with diabetic neuropathy E11.[address] [place] [id number] [place] [address] [id number] Nov, Other chronic pain G89.29 [place] [id number] [place] [address] [id number] Oct, [address] [id number] Oct, [address] [id number] Oct, Other chronic pain G89.29 [place] [id number] [place] [address] [id number] Sep, Other chronic pain G89.[address] [id number] Aug, CKD (chronic kidney disease), stage 3 (moderate) N18.3 ; Anemia, unspecified type D64.9 and Dilated pore of Ly L70.8 [place] [id number] [place] [address] [id number] Aug, Other chronic pain G89.29 ; Pain in left shoulder M25.512 ; High risk medication use Z79.899 ; Uses walker Z99.89 ; Diabetes type 2, uncontrolled E11.65 and Depression F32.[address] [id number] Aug, Chronic diarrhea K52.9 [facility] [address] [id number] Aug, Chronic diarrhea K52.9 ; Type 2 diabetes mellitus with diabetic neuropathy E11.40 ; Diabetes type 2, uncontrolled E11.65 ; Insulin long-term use Z79.4 ; Chronic obstructive pulmonary disease, unspecified COPD type J44.9 ; Chronic pain syndrome G89.4 ; Pain in left shoulder M25.512 ; Uses walker Z99.89 ; S/P coronary artery stent placement Z95.5 ; Mixed hyperlipidemia E78.2 and Essential hypertension I10 [address] [place] [address] [id number] Aug, [address] [id number] Jul, Diabetes type 2, uncontrolled E11.65 [place] [id number] [place] [address] [id number] Jul, Diabetes type 2, uncontrolled E11.65 ; Type 2 diabetes mellitus with diabetic neuropathy E11.40 ; Insulin long-term use Z79.4 and Chronic obstructive pulmonary disease, unspecified COPD type J44.9 [address] [place] [address] [id number] Jun, [facility] [id number] [place] [address] [id number] Jun, Essential hypertension I10 [address] [place] [address] [id number] Jun, Essential hypertension I10 [place] [id number] [place] [address] [id number] Jun, Type 2 diabetes mellitus with diabetic neuropathy E11.40 ; Type 2 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 ; S/P coronary artery stent placement Z95.5 ; Obesity (BMI 30.0-34.9) E66.9 ; Mixed hyperlipidemia E78.2 ; Frequent falls R29.6 ; Chronic obstructive pulmonary disease, unspecified COPD type J44.9 ; Essential hypertension I10 ; Insulin long-term use Z79.4 and High risk medication use Z79.899 [facility] [id number] [place] [address] [id number] May, Diarrhea, unspecified type R19.7 ; Type 2 diabetes mellitus with diabetic neuropathy E11.40 ; Chronic obstructive pulmonary disease, unspecified COPD type J44.9 ; S/P coronary artery stent placement Z95.5 ; High risk medication use Z79.899 ; Essential hypertension I10 ; Encounter for administration of vaccine Z23 and Encounter for immunization Z23 [address] [id number] [id number] May, Chronic obstructive pulmonary disease, unspecified COPD type J44.9 [facility] [id number] [place] [address] [id number] May, Type 2 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 ; Encounter for immunization Z23 ; Needs flu shot Z23 ; Comprehensive diabetic foot examination, type 2 DM, encounter for E11.9 and Obesity (BMI 30.0-34.9) E66.9 [facility] [id number] [place] [address] [id number] May, [facility] [id number] [place] [address] [id number] Apr, [place] [id number] [place] [address] [id number] Apr, Essential hypertension I10 and Aphasia R47.01 [facility] [id number] [place] [address] [id number] Apr, [place] [id number] [place] [address] [id number] Apr, Type 2 diabetes mellitus with diabetic neuropathy E11.40 ; Frequent falls R29.6 ; Essential hypertension I10 ; S/P coronary artery stent placement Z95.5 ; High risk medication use Z79.899 ; Hyperlipidemia, unspecified hyperlipidemia E78.5 ; CKD (chronic kidney disease), stage 3 (moderate) N18.3 ; Pain in left shoulder M25.512 and Chronic obstructive pulmonary disease, unspecified COPD type J44.9 [facility] [address] [place] [address] [id number] Mar, [place] [id number] [place] [address] [id number] Mar, Type 2 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 ; Leg wound, left, initial encounter S81.802A ; Hx of shoulder surgery Z98.890 ; Acute pain of left shoulder M25.512 and Fall, initial encounter W19.XXXA [facility] [id number] [place] [address] [id number] Feb, Follow-up exam Z09 ; Hx of shoulder surgery Z98.890 ; Acute pain of left shoulder M25.512 ; Essential hypertension I10 and Leg wound, left, initial encounter S81.802A [facility] [id number] [place] [address] [id number] Feb, [facility] [id number] [place] [address] [id number] Feb, [facility] [place] [address] [id number] [place] [address] [id number] Feb, Chronic obstructive pulmonary disease, unspecified COPD type J44.9 [facility] [id number] [place] [address] [id number] Feb, [facility] [id number] [place] [address] [id number] Jan, Generalized weakness R53.1 ; Exertional shortness of breath R06.02 and Fungal rash of trunk B36.9 [facility] [id number] [place] [address] [id number] Jan, [facility] [address] [id number] [place] [address] [id number] Jan, [facility] [address] [id number] [place] [address] [id number] Jan, [facility] [id number] [place] [address] [id number] Jan, [facility] [address] [id number] [place] [address] [id number] December, High risk medication use Z79.899 [facility] [id number] [place] [address] [id number] December, Type 2 diabetes mellitus with diabetic neuropathy E11.40 [facility] [place] [address] [place], [place] [id number] [id number] December, High risk medication use Z79.899 [address] [place] [address] [id number] Nov, Diabetes type 2, uncontrolled E11.65 [address] [place] [address] [id number] Nov, Medicare annual wellness visit, initial Z00.00 ; Bilateral low back pain without sciatica M54.5 ; Pain in left shoulder M25.512 ; Chronic pain syndrome G89.4 ; Type 2 diabetes mellitus with diabetic polyneuropathy E11.42 ; High risk medication use Z79.899 and Encounter for immunization Z23 [place] [id number] [place] [address] [id number] Nov, Type 2 diabetes mellitus with diabetic neuropathy E11.40 ; Coronary artery disease involving [place] coronary artery of [place]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 and CKD (chronic kidney disease), stage 3 (moderate) N18.3 [address] [place] [address] [id number] Oct, Type 2 diabetes mellitus with diabetic polyneuropathy E11.42 ; Chronic pain syndrome G89.4 ; Chronic obstructive pulmonary disease, unspecified COPD type J44.9 ; Chronic kidney disease, unspecified N18.9 and Rash R21 [address] [id number] [id number] Oct, Type 2 diabetes mellitus with diabetic neuropathy E11.[id number] [place] [address] [id number] Oct, Rash R21 and Impetigo L01.[address] [id number] [place] [address] [id number] Oct, Chronic pain syndrome G89.4 [address] [place] [address] [id number] Oct, [address] [place] [address] [id number] Sep, Sebaceous cyst L72.3 [address] [place] [address] [id number] Sep, Sebaceous cyst L72.3 [address] [id number] Sep, Chronic pain syndrome G89.4 ; Pain in left shoulder M25.512 and Effusion of olecranon bursa, left M25.422 [facility] [address] [phone] Aug, [place] [id number] [place] [address] [id number] Aug, [place] [id number] [place] [address] [id number] Aug, Mixed hyperlipidemia E78.2 and Chronic kidney disease, unspecified N18.9 [place] [id number] [place] [address] [id number] Jul, Type 2 diabetes mellitus with diabetic neuropathy E11.40 ; Essential hypertension I10 and S/P coronary artery stent placement Z95.5 [place] [id number] [place] [address] [id number] Jul, 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 [place] [address] [place] [address] [id number] Jul, Diabetes type 2, uncontrolled E11.65 ; Essential hypertension I10 and 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 [place] [id number] [place] [address] [id number] Jul, [place] [id number] [place] [address] [id number] Jul, [address] [place] [address] [id number] Jul, [place] [id number] [place] [address] [id number] Jul, Chronic obstructive pulmonary disease, unspecified COPD type J44.9 [address] [place] [address] [id number] Jun, CKD (chronic kidney disease), stage 3 (moderate) N18.3 and Anemia, unspecified type D64.9 [place] [id number] [place] [address] [id number] Jun, Type 2 diabetes mellitus with diabetic neuropathy E11.40 ; Decreased GFR R94.4 ; CKD (chronic kidney disease), stage 3 (moderate) N18.3 and Decreased hemoglobin R71.0 [place] [address] [place] [address] [id number] Jun, CKD (chronic kidney disease), stage 3 (moderate) N18.3 and Anemia, unspecified type D64.9 [place] [id number] [place] [address] [id number] Jun, Type 2 diabetes mellitus with diabetic neuropathy E11.40 ; Decreased GFR R94.4 and CKD (chronic kidney disease), stage 3 (moderate) N18.3 [place] [id number] [place] [address] [id number] Jun, Type 2 diabetes mellitus with diabetic neuropathy E11.40 and Essential hypertension I10 [place] [id number] [place] [address] [id number] Jun, [place] [id number] [place] [address] [id number] Jun, [place] [id number] [place] [address] [id number] Jun, Type 2 diabetes mellitus with diabetic neuropathy E11.40 ; S/P coronary artery stent placement Z95.5 ; Chronic obstructive pulmonary disease, unspecified COPD type J44.9 ; Essential hypertension I10 ; GERD without esophagitis K21.9 ; Peripheral vascular disease I73.9 ; Mixed hyperlipidemia E78.2 and Hospital discharge follow-up Z09 [place] [id number] [place] [address] [id number] Jun, [place] [id number] [place] [address] [id number] May, Depression F32.9 and Hyperlipidemia, unspecified hyperlipidemia E78.5 [facility] [address] [phone] May, [address] [place] [address] [id number] May, [address] [place] [address] [id number] May, Essential hypertension I10 ; Chronic pain syndrome G89.4 ; Pain in left shoulder M25.512 ; High risk medication use Z79.899 ; Chronic obstructive pulmonary disease, unspecified COPD type J44.9 ; S/P coronary artery stent placement Z95.5 ; Personal history of carotid stenosis Z86.79 ; Hyperlipidemia, unspecified hyperlipidemia E78.5 ; Decreased GFR R94.4 and Type 2 diabetes mellitus with diabetic polyneuropathy E11.42 [place] [id number] [place] [address] [id number] May, Hemoglobin decreased R71.0 and Decreased GFR R94.[address] [id number] May, Hemoglobin decreased R71.0 and Decreased GFR R94.[address] [id number] May, [place] [id number] [place] [address] [id number] May, [place] [id number] [place] [address] [id number] Apr, [address] [id number] Apr, Type 2 diabetes mellitus with foot [...] unspecified hyperlipidemia E78.5 and Essential hypertension I10 [place] [id number] [place] [address] [id number] Apr, [place] [id number] [place] [address] [id number] Mar, [place] [id number] [place] [address] [id number] Mar, [facility] [address] [address] Mar, [facility] [id number] [place] [address] [id number] Feb, [facility] [id number] [place] [address] [id number] Feb, [facility] [id number] [place] [address] [id number] Feb, [facility] [id number] [place] [address] [id number] Jan, Type 2 diabetes mellitus with diabetic polyneuropathy E11.42 ; Hypercholesterolemia E78.0 ; Chronic pain syndrome G89.4 ; Pain in left shoulder M25.512 and High risk medication use Z79.899 [facility] [id number] [place] [address] [id number] Jan, [facility] [id number] [place] [address] [id number] Jan, [facility] [id number] [place] [address] [id number] December, [facility] [id number] [place] [address] [id number] December, [facility] [address] [address] December, Diabetes type 2, uncontrolled E11.65 ; Type 2 diabetes mellitus with diabetic neuropathy E11.40 ; Peripheral vascular disease I73.9 ; 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 and 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 [facility] [id number] [id number] Nov, [facility] [id number] [place] [address] [id number] Nov, [facility] [id number] [place] [id number] Nov, [facility] [id number] [place] [id number] Nov, Right hip pain M25.551 [facility] [address] [address] Nov, [facility] [address] [id number] [place] [address] Nov, [facility] [id number] [place] [address] [id number] Nov, Diabetes with neurological manifestations, type II or unspecified type, 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.60 [facility] [place] [id number] [place] [address] [id number] Nov, [facility] [place] [id number] [place] [address] [id number] Nov, [facility] [id number] [place] [address] [id number] Oct, Diabetes type 2, uncontrolled E11.65 ; Type 2 diabetes mellitus with diabetic neuropathy, unspecified E11.40 and Low back pain M54.5 [facility] [id number] [place] [address] [id number] Oct, [facility] [id number] [place] [address] [id number] Oct, [facility] [id number] [place] [address] [id number] Oct, [facility] [id number] [place] [address] [id number] Sep, [facility] [id number] [place] [address] [id number] Sep, [facility] [address] [address] Sep, [facility] [id number] [place] [address] [id number] Sep, [facility] [id number] [place] [address] [id number] Sep, [facility] [id number] [place] [address] [id number] Aug, 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 [facility] [place] [id number] [place] [address] [id number] Aug, [facility] [address] [facility] [id number] [id number] Aug, Allergic rhinitis due to pollen J30.1 [facility] [address] [facility] [id number][place] [id number] Jul, [facility] [address] [facility] [id number] [place] [id number] Jul, [facility] [id number] [place] [id number] Jul, [facility] [address] [facility] [id number] [place] [phone] Jun, [address] [place] [address] [id number] Jun, Thumb tendonitis M77.8 and Ringing in ear, bilateral H93.13 [facility] [id number][place] [id number] Jun, [address] [id number] May, [facility] [id number] [place] [phone] May, [facility] [id number] [place] [address] May, Pre-op evaluation Z01.818 ; Encounter for immunization Z23 ; Type 2 diabetes mellitus with diabetic peripheral angiopathy without gangrene E11.51 ; Insulin long-term use Z79.4 ; Type 2 diabetes mellitus with foot ulcer E11.621 ; Peripheral vascular disease I73.9 ; Coronary artery disease involving [place] coronary artery of [place]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 ; S/P coronary artery stent placement Z95.5 ; Osteomyelitis of right foot, unspecified chronicity M86.9 and Chronic obstructive pulmonary disease, unspecified COPD type J44.9 [facility] [id number] [place] [phone][address] May, [facility] [address] [place] [address] [id number] May, [facility] [id number] [place] [address] [id number] May, Diabetes type 2, uncontrolled E11.65 ; Encounter for immunization Z23 ; Osteopenia M85.80 and Allergic rhinitis due to pollen J30.1 [facility] [id number] [place] [address] [id number] May, Lumbago 724.2 [facility] [address] [id number] [phone] Apr, [facility] [address] [id number] [place] [address] [phone] Apr, [facility] [id number] [place] [address] [id number] Apr, [facility] [id number] [place] [address] [id number] Apr, [facility] [id number] [place] [address] 37892- 2546 Mar, [facility] [id number] [place] [address] [phone] Mar, [facility] [id number] [place] [address] [id number] Mar, [facility] [id number] [place] [address] [id number] Mar, [facility] [id number] [place] [address] [id number] Mar, [facility] [id number] [place] [address] 92199- 2546 Mar, [facility] [id number] [place] [address] [id number] Mar, [facility] [id number] [place] [address] [id number] Mar, Diabetes with neurological manifestations, type II or unspecified type, 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.60 and Severe obesity (BMI 35.0-35.9 with comorbidity) 278.01 [facility] [id number] [place] [address] [phone] Mar, [facility] [id number] [address] 25[address] Mar, [facility] [id number] [address] 2546 Feb, [facility] [id number] [place] [id number] Feb, [facility] [id number] [place] [address] [id number] Feb, [facility] [id number] [place] [id number] Feb, Diabetes with neurological manifestations, type II or unspecified type, 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.60 [facility] [id number] [place] [address] [id number] Feb, [facility] [address]00565100[place] [address]- 2546 Feb, [facility] [id number] [place] [id number] Feb, [facility] [id number] [place] [id number] Feb, Follow up V67.9 ; Diabetes with neurological manifestations, type II or unspecified type, 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.60 and Congestive heart failure 428.0 [facility] [id number] [place] [id number] Jan, [facility] [id number] [place] [id number] Jan, [facility] [id number] [place] [id number] Jan, [facility] [id number] [place] [id number] December, Otitis media with effusion 381.4 ; Left arm numbness 782.0 and Osteoporosis 733.00 [facility] [id number] [place] [id number] December, [facility] [id number] [place] [id number] Nov, [facility] [address] [facility] [id number] [place] [id number] Nov, Serous otitis media 381.4 and Lumbago 724.2 [facility] [place] [facility] [address]00565100[place] [address]- 0896 Nov, [facility] [place] [facility] [address]00565100[place] [address]- 8086 Nov, [facility] [id number] [place] [id number] Oct, [facility] [place] [facility] [address]00565100[place] [address]- 4786 Oct, [facility] [id number] [place] [address] [id number] Oct, [facility] [place] [facility] [address]00565100[place] [address]- 3656 Oct, [facility] [id number] [place] [id number] Oct, [facility] [place] [facility] [address]00565100[place] [address]- 1326 Oct, [facility] [place] [facility] [address]00565100[place] [address]- 1656 Sep, [facility] [place] [facility] [address]00565100[place] [address]- 5796 Sep, [facility] [id number] [place] [id number] Sep, [facility] [place] [facility] [address] [id number] [address]- 3786 Sep, [facility] [id number] [place] [id number] Aug, [facility] [place] [facility] [address]00565100[place] [address]- 2546 Aug, [facility] [address] [id number] [place] [id number] Aug, [facility] [place] [facility] [address] [facility] [id number] [place] [address]- 2546 Aug, [facility] [address] [facility] [id number] [place] [id number] Jul, [facility] [place] [facility] [address] [facility] [id number] [address] 2546 Jul, [facility] [address] [facility] [id number] [place] [id number] Jul, [facility] [place] [facility] [address] [facility] [id number] [place] [address] 2546 Jul, [facility] [address] [facility] [id number] [place] [id number] Jul, [facility] [place] [facility] [address] [facility] [id number] [address]- 9486 Jul, [facility] [address] [facility] [id number] [place] [id number] Jun, [facility] [place] [facility] [address] [facility] [id number] [address]- 9321 Jun, [facility] [address] [facility] [id number] [place] [id number] May, [facility] [place] [facility] [address] [facility] [id number] [address]- 6356 May, [facility] [address] [facility] [id number] [place] [id number] May, [facility] [place] [facility] [address] [facility] [id number] [address]- 3764 May, [facility] [address] [facility] [id number] [place] [id number] May, [facility] [place] [facility] [address] [facility] [id number] [place] [address] 2546 May, [facility] [address] [facility] [id number] [place] [id number] May, [facility] [address] [facility] [id number] [place] [id number] May, [facility] [place] [facility] [address] [facility] [id number] [address]- 7754 May, [facility] [place] [facility] [address] [facility] [id number] [address]- 2456 May, [facility] [address] [facility] [id number] [place] [id number] May, [facility] [place] [facility] [address] [facility] [id number] [address]- 7617 May, [facility] [place] [facility] [address] [facility] [id number] [address]- 5571 Apr, [facility] [address] [facility] [id number] [place] [id number] Apr, [facility] [place] [facility] [address] [facility] [id number] [address]- 2612 Apr, [facility] [address] [facility] [id number] [place] [id number] Apr, [facility] [address] [facility] [id number] [place] [id number] Apr, [facility] [place] [facility] [address] [facility] [id number] [address]- 0378 Apr, [facility] [place] [facility] [address] [facility] [id number] [address]- 0483 Apr, [facility] [address] [facility] [id number] [place] [id number] Apr, [facility] [place] [facility] [address] [facility] [id number] [place] [address]- 9291 Apr, [facility] [address] [facility] [id number] [place] [id number] Apr, [facility] [place] [facility] [address] [facility] [id number] [place] [address]- 2014 Apr, [facility] [address] [facility] [id number] [place] [id number] Apr, [facility] [place] [facility] [address] [facility] [id number] [place] [address]- 7790 Apr, [facility] [address] [id number] [place] [id number] Apr, [facility] [place] [facility] [address] [facility] [id number] [place] [address]- 3869 Apr, [facility] [address] [id number] [place] [id number] Apr, [facility] [place] [facility] [address] [facility] [id number] [place] [address]- 7006 Apr, [facility] [address] [id number] [place] [id number] Apr, [facility] [place] [facility] [address] [facility] [id number] [place] [address]- 1826 Apr, [facility] [address] [facility] [id number] [place] [id number] Mar, [facility] [place] [facility] [address] [facility] [id number] [address]- 4949 Mar, [facility] [address] [id number] [id number] Mar, [facility] [address] [id number] [place] [id number] Mar, [facility] [place] [facility] [address] [facility] [id number] [address]- 4468 Mar, [facility] [place] [facility] [address] [facility] [id number] [place] [address]- 2497 Mar, [facility] [address] [id number] [place] [id number] Mar, [facility] [place] [facility] [address] [facility] [id number] [address]- 6498 Mar, [facility] [address] [id number] [place] [id number] Mar, [facility] [place] [facility] [address] [facility] [id number] [place] [address]- 0103 Mar, [facility] [address] [id number] [place] [id number] Mar, [facility] [place] [facility] [address] [id number] [place] [address]- 2633 Mar, [facility] [address] [id number] [place] [id number] Mar, [facility] [place] [facility] [address] [facility] [id number] [place] [address]- 7518 Mar, [facility] [address] [id number] [place] [id number] Mar, [facility] [place] [facility] [address] [id number] [place] [address]- 6170 Mar, [facility] [address] [id number] [place] [id number] Mar, [facility] [place] [facility] [address] [facility] [id number] [place] [address]- 7029 Mar, [facility] [address] [facility] [id number] [place] [id number] Mar, [facility] [place] [facility] [address] [facility] [id number] [place] [address]- 5223 Mar, [facility] [address] [id number] [place] [id number] Feb, [facility] [place] [facility] [address] [facility] [id number] [place] [address]- 0004 Feb, [facility] [address] [id number] [place] [id number] Feb, [facility] [place] [facility] [address] [facility] [id number] [place] [address]- 1744 Feb, [facility] [address] [id number] [place] 035925289 Feb, [facility] [place] [facility] [address] [facility] [id number] [place] [address]- 7080 Feb, [facility] [address] [id number] [place] [id number] Feb, [facility] [place] [facility] [address] [facility] [id number] [place] [address]- 5101 Feb, [facility] [address] [id number] [place] [id number] Feb, [facility] [place] [facility] [address] [id number] [place] [address]- 7690 Feb, [facility] [address] [id number] [place] [id number] Feb, [facility] [place] [facility] [address] [id number] [place] [address]- 5698 Feb, [facility] [address] [id number] [place] [id number] Feb, [facility] [place] [facility] [address] [id number] [place] [address]- 7442 Feb, [facility] [address] [id number] [place] [id number] Feb, [facility] [place] [facility] [address] [facility] [id number] [place] [address]- 4282 Feb, [facility] [address] [id number] [place] 016125939 Feb, [facility] [place] [facility] [address] [facility] [id number] [place] [address]- 8042 Feb, [facility] [address] [id number] [place] 885902467 Feb, [facility] [address] [id number] [place] 980481279 Feb, [facility] [place] [facility] [address] [facility] [id number] [address]- 6169 Feb, [facility] [place] [facility] [address] [id number] [place] [address]- 0769 Feb, [facility] [address] [id number] [place] [id number] Feb, [facility] [place] [facility] [address] [facility] [id number] [place] [address]- 3711 Feb, [facility] [address] [id number] [place] [id number] Feb, [facility] [place] [facility] [address] [id number] [place] [address]- 5411 Feb, [facility] [address] [id number] [place] [id number] Feb, [facility] [place] [facility] [address] [id number] [place] [address]- 0917 Feb, [facility] [address] [facility] [id number] [place] [id number] Jan, [facility] [place] [facility] [address] [id number] [place] [address]- 1883 Jan, [facility] [place] [facility] [address] [id number] [place] [address]- 3663 Jan, [facility] [place] [facility] [address] [facility] [id number] [place] [address]- 9295 Jan, [facility] [place] [facility] [address] [id number] [place] [address]- 5471 Jan, [facility] [place] [facility] [address] [facility] [id number] [place] [address]- 0796 Jan, [facility] [address] [facility] [id number] [place] [id number] Jan, [facility] [place] [facility] [address] [facility] [id number] [place] [address]- 4416 Jan, [facility] [place] [facility] [address] [facility] [id number] [place] [address]- 9822 Jan, [facility] [place] [facility] [address] [facility] [id number] [place] [address]3051597- 3004 Jan, [facility] [address] [id number] [place] [id number] Jan, [facility] [address] [facility] [id number] [place] [id number] Jan, [facility] [place] [facility] [address] [id number] [place] [address]- 9126 Jan, [facility] [place] [facility] [address] [id number] [place] [address]- 0756 Jan, [facility] [address] [id number] [place] [address]44716911 Jan, [facility] [address] [id number] [place] [id number] Jan, [facility] [place] [facility] [address] [facility] [id number] [place] [address]- 6346 Jan, [facility] [place] [facility] [address] [facility] [id number] [place] [address]- 3383 Jan, [facility] [place] [facility] [address] [id number] [place] [address]- 2002 Jan, [facility] [address] [facility] [id number] [place] [id number] December, [facility] [place] [facility] [address] [facility] [id number] [place] [address]- 9407 December, [facility] [place] [facility] [address] [facility] [id number] [address]- 1849 December, [facility] [address] [facility] [id number] [place] [id number] December, [facility] [place] [facility] [address] [facility] [id number] [address]- 8886 December, [facility] [address] [facility] [id number] [place] 039154064 December, [facility] [place] [facility] [address] [facility] [id number] [address]- 7356 December, [facility] [address] [id number] [place] [id number] December, [facility] [place] [facility] [address] [facility] [id number] [place] [address]- 2166 December, [facility] [address] [id number] [place] 312565068 Nov, [facility] [place] [facility] [address] [facility] [id number] [place] [address]- 2257 Nov, [facility] [address] [facility] [id number] [place] [id number] Nov, [facility] [place] [facility] [address] [facility] [id number] [place] [address]- 8973 Nov, [facility] [place] [facility] [address] [facility] [id number] [address]- 8394 Nov, [facility] [place] [facility] [address] [facility] [id number] [place] [address]- 1925 Nov, [facility] [place] [facility] [address] [facility] [id number] [place]- 1793 Oct, [facility] [address] [facility] [id number] [place] [id number] Oct, [facility] [place] [facility] [address] [id number] [address]- 2196 Oct, [facility] [address] [facility] [id number] [place] [id number] Oct, [facility] [place] [facility] [address] [facility] [id number] [address]- 5912 Oct, [facility] [address] [facility] [id number] [place] [id number] Sep, [facility] [place] [facility] [address]00565100[place] [address]- 2077 Sep, [facility] [address] [facility] [id number] [place] [id number] Aug, [facility] [place] [facility] [address] [facility] [id number] [address]- 7263 Aug, [facility] [address] [facility] [id number] [place] [id number] Aug, [facility] [place] [facility] [address] [facility] [id number] [address] Aug, [facility] [place] [facility] [address] [facility] [id number] [address] Aug, [facility] [place] [address] [facility] [id number] [place] [id number] Aug, [facility] [place] [facility] [address] [facility] [id number] [place] [address] Aug, [facility] [place] [facility] [address] [facility] [id number] [place] [address] Aug, [facility] [place] [address] [facility] [id number] [place] [id number] Aug, [facility] [place] [facility] [address] [facility] [id number] [place] [address] Aug, [facility] [place] [address] [facility] [id number] [place] [id number] Jul, [facility] [place] [facility] [address] [facility] [id number] [place] [address] Jul, [facility] [place] [address] [facility] [id number] [place] [id number] Jul, [facility] [place] [facility] [id number] [address] Jul, [facility] [place] [address] [facility] [id number] [place] [id number] Jul, [facility] [place] [facility] [address] [id number] [address] Jul, [facility] [place] [address] [facility] [id number] [place] [id number] Jul, [facility] [place] [facility] [address] [id number] [address] Jul, [facility] [place] [address] [facility] [id number] [place] [id number] Jun, [facility] [place] [facility] [address] [facility] [id number] [place] [address] Jun, [facility] [place] [address] [facility] [id number] [place] [id number] Jun, [facility] [place] [facility] [address] [id number] [address] Jun, [facility] [place] [facility] [address] [facility] [id number] [place] [address] Jun, [facility] [address] [facility] [id number] [place] [address] Jun, [facility] [place] [address] [id number] [place] [id number] Apr, [facility] [place] [address] [id number] [place] [id number] Mar, [facility] [place] [address] [id number] [place] [id number] Mar, [facility] [place] [address] [id number] [place] [id number] Feb, [facility] [place] [address] [id number] [place] [id number] Feb, [facility] [place] [address] [id number] [place] [id number] Feb, [facility] [place] [address] [id number] [place] [id number] December, [facility] [place] [address] [id number] [place] [id number] December, [facility] [id number] [address] December, [facility] [place] [address] [id number] [place] [id number] December, [facility] [place] [address] [id number] [place] [id number] December, [facility] [place] [address] [id number] [place] [id number] Nov, [facility] [place] [address] [id number] [place] [address] Nov, [facility] [place] [address] [id number] [place] [id number] Nov, [facility] [place] [address] [id number] [place] [address] Oct, [facility] [place] [address] [id number] [place] [id number] Sep, [facility] [place] [address] [id number] [place] [id number] Aug, [facility] [address] [facility] [id number] [place] [address] Aug, [facility] [place] [address] [id number] [place] [id number] Aug, [facility] [place] [address] [id number] [place] [id number] Jul, [facility] [address] [facility] [id number] [place] [address] Jul, [facility] [place] [address] [id number] [place] [id number] Jul, [facility] [address] [facility] [id number] [place] [address] Jul, [facility] [place] [address] [id number] [place] [id number] Jun, [facility] [id number] [address] Jun, [facility] [place] [address] [id number] [place] [id number] May, [facility] [address] [facility] [id number] [place] [address] May, [facility] [place] [address] [id number] [place] [id number] May, [facility] [address] [facility] [facility] [id number] [address] May, [facility] [place] [address] [id number] [place] [id number] Apr, [facility] [place] [address] [id number] [place] [id number] Apr, [facility] [place] [address] [id number] [place] [id number] Mar, [facility] [place] [address] [id number] [place] [id number] Mar, [facility] [place] [address] [id number] [place] [id number] Feb, [facility] [place] [address] [id number] [place] [id number] Feb, [facility] [place] [address] [id number] [place] [id number] Jan, [facility] [place] [address] [id number] [place] [id number] Jan, [facility] [place] [address] [id number] [place] [id number] Jan, [facility] [place] [address] [id number] [place] [id number] Jan, [facility] [place] [address] [id number] [place] [id number] December, [facility] [place] [address] [id number] [place] [id number] December, [facility] [address] [facility] [id number] [place] [address] Nov, [facility] [place] [address] [id number] [place] [id number] Nov, [facility] [place] [address] [id number] [place] [id number] Nov, [facility] [place] [address] [id number] [place] [id number] Nov, [facility] [place] [address] [id number] [place] [id number] Nov, [facility] [address] [facility] [id number] [place] [address] Oct, [facility] [address] [facility] [id number] [place] [address] Oct, [facility] [place] [address] [id number] [place] [id number] Oct, [facility] [place] [address] [id number] [place] [id number] Oct, [facility] [place] [address] [id number] [place] [id number] Oct, [facility] [place] [address] [id number] [place] [id number] Oct, [facility] [place] [address] [id number] [place] [id number] Oct, [facility] [place] [address] [id number] [place] [id number] Oct, [facility] [place] [address] [id number] [place] [id number] Oct, [facility] [address] [facility] [id number] [place] [address] Oct, [facility] [place] [address] [id number] [place] [id number] Sep, [facility] [place] [address] [id number] [place] [id number] Sep, [facility] [place] [address] [id number] [place] [id number] Aug, [facility] [place] [address] [id number] [place] [id number] Aug, [facility] [address] [facility] [id number] [place] [address] Jul, [facility] [address] [facility] [id number] [place] [address] Jul, [facility] [id number] [address] Jul, [facility] [id number] [address] Jul, [facility] [address] [facility] [id number] [place] [address] Jul, [facility] [address] [facility] [id number] [place] [address] Jul, [facility] [address] [facility] [id number] [place] [address] Jul, [facility] [id number] [id number] Jul, [facility] [address] [facility] [id number] [place] [address] Jul, [facility] [address] [facility] [id number] [place] [address] Jul, [facility] [address] [facility] [id number] [place] [address] Jul, [facility] [address] [id number] [address] Jul, [facility] [address] [id number] [address] Jul, [facility] [address] [facility] [id number] [place] [address] Jul, IMMUNIZATIONS No Known Immunizations SOCIAL HISTORY Never Assessed REASON FOR VISIT Diabetes follow up Jie BRONSON PLAN OF CARE Activity Details Follow Up 4 Weeks Reason:[facility] DM VITAL SIGNS Height 69 in 2017-06-30 Weight 221.2 lbs 2017-06-30 Temperature 97.1 degrees Fahrenheit 2017-06-30 Heart Rate 88 bpm 2017-06-30 Respiratory Rate 16 2017-06-30 BMI 32.66 kg/m2 2017-06-30 Blood pressure systolic 110 mmHg 2017-06-30 Blood pressure diastolic 78 mmHg 2017-06-30 MEDICATIONS Medication Instructions Dosage Frequency Start Date End Date Duration Status Folic Acid 1 MG Orally Once a day 1 tablet 24h Jul, Active Megestrol Acetate 40 mg Orally Once a day at HS 1 tablet Active Nitroglycerin 0.4 MG Active Cetirizine HCl 10 mg Orally Once a day 1 tablet as needed 24h Nov, Active Carvedilol 3.125 MG Orally 2 times a day 1/2 tablet in am and in pm 12h Active Aspirin Adult Low Strength 81 MG Orally Once a day 1 tablet 24h Active Domingo Contour Test - TEST BLOOD SUGAR (4) TIMES DAILY. Active Baclofen 20 MG Orally 2 times a day 1 tablet with food or milk 12h Active ProAir HFA 108 (90 Base) mcg/act Inhalation 4 times a day 2 puffs as needed 6h Active Levemir Flexpen 100 UNIT/ML Subcutaneous 2 times a day 38 units 12h Active Triamcinolone Acetonide 0.5 % Externally Twice a day 1 application to affected area 12h 15 Oct, 2016 Active Atorvastatin Calcium 40 MG TAKE ONE (1) TABLET BY MOUTH DAILY... Active Mupirocin 2 % Externally Three times a day 1 application to affected area 8h 14 days Active Walker - Rolator walker with seat and hand brakes Jan, Active UltiCare Micro Pen [place] 32G X 4 MM USE TWICE DAILY. Active Symbicort 160-4.5 mcg/act Inhalation Twice a day (morning and evening) inhale 2 puffs Active Escitalopram Oxalate 10 MG TAKE ONE (1) TABLET BY MOUTH DAILY... Active Lancets - subcutaneously 3 times a day as directed 8h 07 Jun, 2016 Active Tramadol HCl 50 MG Orally every 6 hrs 1 tablet as needed 6h Active Prilosec 20 MG TAKE ONE (1) CAPSULE BY MOUTH ONCE DAILY... Active Victoza 18 mg/3ml Subcutaneous Once a day 1.8 mg 24h Active RESULTS Name Result Date Reference Range A1C (IN HOUSE) 2017-06-30 A1C IN HOUSE 8.3 4.3 - 5.6 % Previous A1c 8.7 Lot [id number] Exp date 04/17 PROCEDURES Procedure Date Ordered Result Body Site GLYCATED HEMOGLOBIN TEST Jun 30, 2017 [facility] VISIT ESTABLISHED PATIENT Jun 30, 2017 INSTRUCTIONS MEDICATIONS ADMINISTERED No Known [...] in the future. Medical History 05/26/17 noted, fci has ended and they feel he is [...] Surgical History Left eye retinal eye repair ([facility]) 06/2014 Surgical History amputation, toe-right third toe ([facility]) 2013 Surgical History Right eye retinal eye repair ([facility]) 09/2014 Surgical History heart cath [...]
--- OUTSIDE RECORDS SUMMARY | 2018-06-20 10:40 | XMS REPORT ---
Author Author SATINDER GOOD [facility] Address [address] [place] [address] Care Team Providers Care Park Superintendent Name Role Phone SATINDER GOOD Unavailable PROBLEMS Type Condition ICD9-CM Code [id number] Code Onset Dates Condition Status SNOMED Code Problem S/P coronary artery stent placement Z95.5 Active 574646371 Problem Type 2 diabetes mellitus with diabetic peripheral angiopathy without gangrene E11.51 Active 684605135 Problem Depression F32.9 Active 44530514 Problem Type 2 diabetes mellitus with diabetic neuropathy E11.40 Active 03062583 Problem Hyperlipidemia, unspecified hyperlipidemia E78.5 Active 37776575 Problem Coronary artery disease involving barrow coronary artery of barrow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 Active 2831814306322 Problem Peripheral vascular disease I73.9 Active 662792464 Problem Chronic obstructive pulmonary disease, unspecified COPD type J44.9 Active 14269701 Problem Osteomyelitis of right foot, unspecified chronicity M86.9 Active 52678800 Problem CKD (chronic kidney disease) stage 3, GFR 30-59 ml/min N18.3 Active 883499708 Problem Type 2 diabetes mellitus with diabetic retinopathy, macular edema presence unspecified, with unspecified retinopathy severity E11.319 Active 18638157 Problem GERD without esophagitis K21.9 Active 463549336 Problem Bilateral low back pain without sciatica M54.5 Active 236440436 Problem Mixed hyperlipidemia E78.2 Active 389682652 Problem Frequent falls R29.6 Active 839053762 Problem Chronic kidney disease, unspecified N18.9 Active 184545485 Problem Other chronic pain G89.29 Active 70529974 Problem Chronic diarrhea K52.9 Active 723092090 Problem Hypercholesterolemia E78.0 Active 07185512 Problem 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 Active 095548024 Problem 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 Active 476475313 Problem Obesity (BMI 30.0-34.9) E66.9 Active 394196329385419 Problem Comprehensive diabetic foot examination, type 2 DM, encounter for E11.9 Active 15354528 Problem Uses walker Z99.89 Active 323111381 Problem Aphasia R47.01 Active 02905359 Problem Insulin long-term use Z79.4 Active 565637759 Problem Fatigue, unspecified type R53.83 Active 04265278 Problem Type 2 diabetes mellitus with foot ulcer E11.621 Active 965098415 Problem Pain in left shoulder M25.512 Active 25692311 Problem Type 2 diabetes mellitus with diabetic polyneuropathy E11.42 Active 467299170 Problem Diabetes type 2, uncontrolled E11.65 Active 252760449 Problem Personal history of carotid stenosis Z86.79 Active 309412265 Problem Essential hypertension I10 Active 03875144 Problem CKD (chronic kidney disease), stage 3 (moderate) N18.3 Active 364199585 Problem Chronic pain syndrome G89.4 Active 493764609 Problem High risk medication use Z79.899 Active 381475882 ALLERGIES No Information ENCOUNTERS Encounter Location Date Diagnosis [address] [id number] Oct, [address] [id number] Oct, [address] [id number] Oct, Other chronic pain G89.[address] [id number] Sep, Other chronic pain G89.[address] [id number] Aug, CKD (chronic kidney disease), stage 3 (moderate) N18.3 ; Anemia, unspecified type D64.9 and Dilated pore of Ly L70.[address] [id number] Aug, Other chronic pain G89.29 ; Pain in left shoulder M25.512 ; High risk medication use Z79.899 ; Uses walker Z99.89 ; Diabetes type 2, uncontrolled E11.65 and Depression F32.9 [place] [id number] [place] [address] [id number] Aug, Chronic diarrhea K52.9 [address] [place] [address] [id number] Aug, Chronic diarrhea K52.9 ; Type 2 diabetes mellitus with diabetic neuropathy E11.40 ; Diabetes type 2, uncontrolled E11.65 ; Insulin long-term use Z79.4 ; Chronic obstructive pulmonary disease, unspecified COPD type J44.9 ; Chronic pain syndrome G89.4 ; Pain in left shoulder M25.512 ; Uses walker Z99.89 ; S/P coronary artery stent placement Z95.5 ; Mixed hyperlipidemia E78.2 and Essential hypertension I10 [place] [id number] [place] [address] [id number] Aug, [place] [id number] [place] [address] [id number] Jul, Diabetes type 2, uncontrolled E11.65 [place] [id number] [place] [address] [id number] Jul, Diabetes type 2, uncontrolled E11.65 ; Type 2 diabetes mellitus with diabetic neuropathy E11.40 ; Insulin long-term use Z79.4 and Chronic obstructive pulmonary disease, unspecified COPD type J44.9 [place] [id number] [place] [address] [id number] Jun, [place] [id number] [place] [address] [id number] Jun, Essential hypertension I10 [place] [id number] [place] [address] [id number] Jun, Essential hypertension I10 [place] [id number] [place] [address] [id number] Jun, Type 2 diabetes mellitus with diabetic neuropathy E11.40 ; Type 2 diabetes mellitus with diabetic polyneuropathy E11.42 ; S/P coronary artery stent placement Z95.5 ; Obesity (BMI 30.0-34.9) E66.9 ; Mixed hyperlipidemia E78.2 ; Frequent falls R29.6 ; Chronic obstructive pulmonary disease, unspecified COPD type J44.9 ; Essential hypertension I10 ; Insulin long-term use Z79.4 and High risk medication use Z79.[id number] [place] [address] [id number] May, Diarrhea, unspecified type R19.7 ; Type 2 diabetes mellitus with diabetic neuropathy E11.40 ; Chronic obstructive pulmonary disease, unspecified COPD type J44.9 ; S/P coronary artery stent placement Z95.5 ; High risk medication use Z79.899 ; Essential hypertension I10 ; Encounter for administration of vaccine Z23 and Encounter for immunization Z23 [address] [id number] [id number] May, Chronic obstructive pulmonary disease, unspecified COPD type J44.9 [address] [place] [address] [id number] May, Type 2 diabetes mellitus with diabetic polyneuropathy E11.42 ; Encounter for immunization Z23 ; Needs flu shot Z23 ; Comprehensive diabetic foot examination, type 2 DM, encounter for E11.9 and Obesity (BMI 30.0-34.9) E66.9 [address] [place] [address] [id number] May, [place] [id number] [place] [address] [id number] Apr, [place] [id number] [place] [address] [id number] Apr, Essential hypertension I10 and Aphasia R47.01 [address] [place] [address] [id number] Apr, [place] [id number] [place] [address] [id number] Apr, Type 2 diabetes mellitus with diabetic neuropathy E11.40 ; Frequent falls R29.6 ; Essential hypertension I10 ; S/P coronary artery stent placement Z95.5 ; High risk medication use Z79.899 ; Hyperlipidemia, unspecified hyperlipidemia E78.5 ; CKD (chronic kidney disease), stage 3 (moderate) N18.3 ; Pain in left shoulder M25.512 and Chronic obstructive pulmonary disease, unspecified COPD type J44.9 [address] [place] [address] [id number] Mar, [id number] [place] [address] [id number] Mar, Type 2 diabetes mellitus with diabetic polyneuropathy E11.42 ; Leg wound, left, initial encounter S81.802A ; Hx of shoulder surgery Z98.890 ; Acute pain of left shoulder M25.512 and Fall, initial encounter W19.XXXA [facility] [id number] [place] [address], [place] [id number] Feb, Follow-up exam Z09 ; Hx of shoulder surgery Z98.890 ; Acute pain of left shoulder M25.512 ; Essential hypertension I10 and Leg wound, left, initial encounter S81.802A [facility] [address] [id number] [place] [id number] Feb, [facility] [id number] [place] [address], [place] [id number] Feb, [facility] [id number] [place] [address] [id number] Feb, Chronic obstructive pulmonary disease, unspecified COPD type J44.9 [facility] [id number] [place] [address] [id number] Feb, [facility] [id number] [place] [address], [place] [id number] Jan, Generalized weakness R53.1 ; Exertional shortness of breath R06.02 and Fungal rash of trunk B36.9 [facility] [id number] [place] [address] [id number] Jan, [facility] [address] [id number] [place] [address] [id number] Jan, [facility] [id number] [place] [address] [id number] Jan, [facility] [address] [id number] [place] [address] [id number] Jan, [facility] [id number] [place] [address] [id number] December, High risk medication use Z79.899 [facility] [id number] [place] [address] [id number] December, Type 2 diabetes mellitus with diabetic neuropathy E11.40 [place] [address] [address] [facility] [id number] [id number] December, High risk medication use Z79.899 [address] [id number] Nov, Diabetes type 2, uncontrolled E11.65 [address] [id number] Nov, Medicare annual wellness visit, initial Z00.00 ; Bilateral low back pain without sciatica M54.5 ; Pain in left shoulder M25.512 ; Chronic pain syndrome G89.4 ; Type 2 diabetes mellitus with diabetic polyneuropathy E11.42 ; High risk medication use Z79.899 and Encounter for immunization Z23 [address] [id number] Nov, Type 2 diabetes mellitus with diabetic neuropathy E11.40 ; Coronary artery disease involving barrow coronary artery of barrow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 and CKD (chronic kidney disease), stage 3 (moderate) N18.3 [address] [place] [address] [id number] Oct, Type 2 diabetes mellitus with diabetic polyneuropathy E11.42 ; Chronic pain syndrome G89.4 ; Chronic obstructive pulmonary disease, unspecified COPD type J44.9 ; Chronic kidney disease, unspecified N18.9 and Rash R21 [address] [id number] [id number] Oct, Type 2 diabetes mellitus with diabetic neuropathy E11.[address] [id number] [id number] Oct, Rash R21 and Impetigo L01.[address] [id number] [place] [address] [id number] Oct, Chronic pain syndrome G89.[address] [id number] [id number] Oct, [address] [id number] Sep, Sebaceous cyst L72.3 [place] [id number] [place] [address] [id number] Sep, Sebaceous cyst L72.3 [place] [id number] [place] [address] [id number] Sep, Chronic pain syndrome G89.4 ; Pain in left shoulder M25.512 and Effusion of olecranon bursa, left M25.422 [facility] [address] [id number] [address] Aug, [facility] [id number] [place] [address] [id number] Aug, [place] [id number] [place] [address] [id number] Aug, Mixed hyperlipidemia E78.2 and Chronic kidney disease, unspecified N18.9 [place] [id number] [place] [address] [id number] Jul, Type 2 diabetes mellitus with diabetic neuropathy E11.40 ; Essential hypertension I10 and S/P coronary artery stent placement Z95.5 [place] [id number] [place] [address] [id number] Jul, 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 [place] [id number] [place] [address] [id number] Jul, Diabetes type 2, uncontrolled E11.65 ; Essential hypertension I10 and 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 [address] [place] [address] [id number] Jul, [place] [id number] [place] [address] [id number] Jul, [address] [place] [address] [id number] Jul, [place] [id number] [place] [address] [id number] Jul, Chronic obstructive pulmonary disease, unspecified COPD type J44.9 [address] [place] [address] [id number] Jun, CKD (chronic kidney disease), stage 3 (moderate) N18.3 and Anemia, unspecified type D64.9 [address] [place] [address] [id number] Jun, Type 2 diabetes mellitus with diabetic neuropathy E11.40 ; Decreased GFR R94.4 ; CKD (chronic kidney disease), stage 3 (moderate) N18.3 and Decreased hemoglobin R71.0 [place] [id number] [place] [address] [id number] Jun, CKD (chronic kidney disease), stage 3 (moderate) N18.3 and Anemia, unspecified type D64.9 [address] [place] [address] [id number] Jun, Type 2 diabetes mellitus with diabetic neuropathy E11.40 ; Decreased GFR R94.4 and CKD (chronic kidney disease), stage 3 (moderate) N18.3 [address] [place] [address] [id number] Jun, Type 2 diabetes mellitus with diabetic neuropathy E11.40 and Essential hypertension I10 [place] [id number] [place] [address] [id number] Jun, [place] [id number] [place] [address] [id number] Jun, [place] [id number] [place] [address] [id number] Jun, Type 2 diabetes mellitus with diabetic neuropathy E11.40 ; S/P coronary artery stent placement Z95.5 ; Chronic obstructive pulmonary disease, unspecified COPD type J44.9 ; Essential hypertension I10 ; GERD without esophagitis K21.9 ; Peripheral vascular disease I73.9 ; Mixed hyperlipidemia E78.2 and Hospital discharge follow-up Z09 [address] [place] [address] [id number] Jun, [place] [id number] [place] [address] [id number] May, Depression F32.9 and Hyperlipidemia, unspecified hyperlipidemia E78.5 [facility] [id number] [place] [address] 68[address]- 69[address] May, [place] [id number] [place] [address] [id number] May, [place] [id number] [id number] May, Essential hypertension I10 ; Chronic pain syndrome G89.4 ; Pain in left shoulder M25.512 ; High risk medication use Z79.899 ; Chronic obstructive pulmonary disease, unspecified COPD type J44.9 ; S/P coronary artery stent placement Z95.5 ; Personal history of carotid stenosis Z86.79 ; Hyperlipidemia, unspecified hyperlipidemia E78.5 ; Decreased GFR R94.4 and Type 2 diabetes mellitus with diabetic polyneuropathy E11.42 [address] [place] [address] [id number] May, Hemoglobin decreased R71.0 and Decreased GFR R94.4 [place] [id number] [place] [address] [id number] May, Hemoglobin decreased R71.0 and Decreased GFR R94.4 [address] [place] [address] [id number] May, [place] [id number] [place] [address] [id number] May, [address] [place] [address] [id number] Apr, [place] [id number] [place] [address] [id number] Apr, Type 2 diabetes mellitus with foot [...] unspecified hyperlipidemia E78.5 and Essential hypertension I10 [address] [place] [address] [id number] Apr, [address] [place] [address] [id number] Mar, [id number] [id number] Mar, [facility] [id number] [place] [address]246- 4336 Mar, [facility] [id number] [place] [address] [id number] Feb, [facility] [id number] [place] [address] [id number] Feb, [facility] [id number] [place] [address] [id number] Feb, [facility] [id number] [place] [address] [id number] Jan, Type 2 diabetes mellitus with diabetic polyneuropathy E11.42 ; Hypercholesterolemia E78.0 ; Chronic pain syndrome G89.4 ; Pain in left shoulder M25.512 and High risk medication use Z79.899 [facility] [id number] [place] [address] [id number] Jan, [facility] [id number] [place] [address] [id number] Jan, [facility] [id number] [place] [address] [id number] December, [facility] [id number] [place] [address] [id number] December, [facility] [address]100[place], [place] [address] December, Diabetes type 2, uncontrolled E11.65 ; Type 2 diabetes mellitus with diabetic neuropathy E11.40 ; Peripheral vascular disease I73.9 ; 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 and 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 [facility] [id number], [place] [id number] Nov, [facility] [id number] [place] [address] [id number] Nov, [facility] [id number], [place] [id number] Nov, [facility] [id number] [place] [address] [id number] Nov, Right hip pain M25.551 [facility] [address] [facility] [id number], [place] [address] 2546 Nov, [facility] [address] [facility] [id number], [place] [address]- [address] Nov, [facility] [id number], [place] [id number] Nov, Diabetes with neurological manifestations, type II or unspecified type, 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.60 [facility] [id number] [place] [address] [id number] Nov, [facility] [id number] [place] [address] [id number] Nov, [facility] [id number] [place] [address] [id number] Oct, Diabetes type 2, uncontrolled E11.65 ; Type 2 diabetes mellitus with diabetic neuropathy, unspecified E11.40 and Low back pain M54.5 [facility] [address] [id number] [id number] Oct, [facility] [id number] [place] [address] [id number] Oct, [facility] [id number] [place] [address] [id number] Oct, [facility] [id number], [place] [id number] Sep, [facility] [id number], [place] [id number] Sep, [facility] [address]005[address]100[place], [place] [address]- [address] Sep, [facility] [id number], [place] [id number] Sep, [facility] [address] [place] [address] [id number], [place] [id number] Sep, [facility] [id number], [place] [id number] Aug, 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 [facility] [address] [id number], [place] [id number] Aug, [facility] [address] [id number], [place] [id number] Aug, Allergic rhinitis due to pollen J30.1 [facility] [id number][place] [id number] Jul, [facility] [address] [id number], [place] [id number] Jul, [facility] [id number] [place] [address] [id number] Jul, [facility] [id number], [place] [id number] Jun, [facility] [id number], [place] [id number] Jun, Thumb tendonitis M77.8 and Ringing in ear, bilateral H93.13 [facility] [id number][place] [id number] Jun, [facility] [address] [facility] [id number][place] [id number] May, [place] [address] [id number] [place] [address] 10057- 8850 May, [facility] [id number] [place] [address] 23544- 0392 May, Pre-op evaluation Z01.818 ; Encounter for immunization Z23 ; Type 2 diabetes mellitus with diabetic peripheral angiopathy without gangrene E11.51 ; Insulin long-term use Z79.4 ; Type 2 diabetes mellitus with foot ulcer E11.621 ; Peripheral vascular disease I73.9 ; Coronary artery disease involving barrow coronary artery of barrow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 ; S/P coronary artery stent placement Z95.5 ; Osteomyelitis of right foot, unspecified chronicity M86.9 and Chronic obstructive pulmonary disease, unspecified COPD type J44.9 [facility] [id number] [place] [address] [id number] 2945 May, [facility] [id number] [place] [address] [id number] May, [facility] [id number] [place] [address] [id number] May, Diabetes type 2, uncontrolled E11.65 ; Encounter for immunization Z23 ; Osteopenia M85.80 and Allergic rhinitis due to pollen J30.1 [facility] [id number] [place] [address] [id number] May, Lumbago 724.2 [place] [id number] [place] [address] [id number] Apr, [facility] [id number] [place] [address] [id number] Apr, [facility] [id number] [place] [address] [id number] Apr, [facility] [id number] [place] [address] [id number] Apr, [facility] [id number] [place] [address] 41030 2546 Mar, [facility] [id number] [place] [address] [id number] Mar, [facility] [id number] [place] [address] [id number] Mar, [facility] [id number] [place] [address] [id number] Mar, [facility] [id number] [place] [address] [id number] Mar, [facility] [id number] [place] [address] 63624- [phone] Mar, [facility] [id number] [place] [address] [id number] Mar, [facility] [id number] [place] [address] [id number] Mar, Diabetes with neurological manifestations, type II or unspecified type, 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.60 and Severe obesity (BMI 35.0-35.9 with comorbidity) 278.01 [facility] [id number], [place] [id number] Mar, [facility] [address]100[place], [place] [address]- 2546 Mar, [facility] [address]00565100[place], [place] [address]- 25[address] Feb, [facility] [address] [id number], [place] [id number] Feb, [facility] [address] [id number], [place] [id number] Feb, [facility] [id number], [place] [id number] Feb, Diabetes with neurological manifestations, type II or unspecified type, 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.60 [facility] [id number], [place] [id number] Feb, [facility] [address]00565100[place], [place] [address]- 2546 Feb, [facility] [address] [id number], [place] [id number] Feb, [facility] [id number], [place] [id number] Feb, Follow up V67.9 ; Diabetes with neurological manifestations, type II or unspecified type, 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.60 and Congestive heart failure 428.0 [facility] [place] [id number], [place] [address] Jan, [facility] [id number], [place] [address] Jan, [facility] [place] [address] [id number][place] [address] Jan, [facility] [place] [id number], [place] [address] December, Otitis media with effusion 381.4 ; Left arm numbness 782.0 and Osteoporosis 733.00 [facility] [address] [id number], [place] [address] December, [facility] [address] [id number], [place] [address] Nov, [facility] [address] [id number][place] [address] Nov, Serous otitis media 381.4 and Lumbago 724.2 [facility] [place] [facility] [address]00565100[place], [place] [address] 14 Nov, 2014 [facility] [place] [facility] [address]00565100[place], [place] [address]- [address] Nov, [facility] [id number], [place] [id number] Oct, [facility] [place] [facility] [address]00565[address], [place] [address]- [address] Oct, [facility] [id number], [place] [address] Oct, [facility] [place] [facility] [address], [place] [address]- [address] Oct, [facility] [id number], [place] [address] Oct, [facility] [place] [facility] [address]00565100[place], [place] [address]- 1606 Oct, [facility] [place] [facility] [address]00565100[place], [place] [address]- 9[address] Sep, [facility] [place] [facility] [address] [id number], [place] [address]66 Sep, [facility] [address] [id number], [place] [address]478531 Sep, [facility] [place] [facility] [address] [id number] [address]- 2546 Sep, [facility] [address] [id number], [place] [address]360 Aug, [facility] [place] [facility] [address] [id number], [place] [address]- 2546 Aug, [facility] [address] [id number], [place] [id number] Aug, [facility] [address] [id number] [place] [address]- [address] Aug, [facility] [address] [id number] [place] 4808840[address] Jul, [facility] [address] [facility] [id number] [place] [address]- 8104 Jul, [facility] [address] [id number] [place] [id number] Jul, [facility] [place] [facility] [address] [id number] [place] [address]- 9918 Jul, [facility] [address] [id number] [place] [id number] Jul, [facility] [place] [facility] [address] [facility] [id number], [place] [address]- [address]29 Jul, [facility] [address] [id number], [place] [id number] Jun, [facility] [address] [facility] [id number], [place] [address]- 2877 Jun, [facility] [address] [id number], [place] 004292263 May, [facility] [place] [facility] [address] [facility] [id number], [place] [address]- 6043 May, [facility] [address] [id number], [place] 919457945 May, [facility] [place] [facility] [address] [facility] [id number], [place] [address]- 1435 May, [facility] [address] [id number] [place] [id number] May, [facility] [place] [facility] [address] [facility] [id number], [place] [address]- 4843 May, [facility] [address] [id number], [place] [id number] May, [facility] [address] [id number], [place] 918013006 May, [facility] [place] [facility] [address] [facility] [id number] [place] [address]- 0343 May, [facility] [place] [facility] [address] [facility] [id number], [place] [address]- 2451 May, [facility] [address] [id number] [place] [id number] May, [facility] [place] [facility] [address] [facility] [id number], [place] [address]- 6486 May, [facility] [place] [facility] [address] [facility] [id number], [place] [address]- 2088 Apr, [facility] [address] [id number], [place] 376851563 Apr, [facility] [place] [facility] [address] [facility] [id number], [place] [address]- 6[address] Apr, [facility] [address] [id number], [place] 563498877 Apr, [facility] [address] [id number], [place] 221152407 Apr, [facility] [place] [facility] [address] [facility] [id number], [place] [address]- 2548 Apr, [facility] [place] [facility] [address] [facility] [id number], [place] [address]- 7234 Apr, [facility] [address] [id number], [place] 200719713 Apr, [facility] [place] [facility] [address] [facility] [id number], [place] [address]- 8981 Apr, [facility] [address] [id number], [place] [id number] Apr, [facility] [place] [facility] [address] [facility] [id number], [place] [address]- 3447 Apr, [facility] [address] [id number], [place] 748778155 Apr, [facility] [place] [facility] [address] [facility] [id number] [place] [address]- 3850 Apr, [facility] [address] [id number] [place] [id number] Apr, [facility] [place] [facility] [address] [facility] [id number] [place] [address]- 0553 Apr, [facility] [address] [facility] [id number] [place] 240796599 Apr, [facility] [place] [facility] [address] [facility] [id number] [place] [address]- 2850 Apr, [facility] [address] [id number] [place] [id number] Apr, [facility] [place] [facility] [address] [facility] [id number] [place] [address]- 4025 Apr, [facility] [address] [facility] [id number] [place] 894013742 Mar, [facility] [place] [facility] [address] [facility] [id number], [place] [address]- 5996 Mar, [facility] [address] [id number] [place] 619493033 Mar, [facility] [address] [id number] [place] 830412808 Mar, [facility] [place] [facility] [address] [facility] [id number], [place] [address]- 8652 Mar, [facility] [place] [facility] [address] [facility] [id number], [place] [address]- 9331 Mar, [facility] [address] [id number] [place] [id number] Mar, [facility] [place] [facility] [address] [facility] [id number], [place] [address]- 7118 Mar, [facility] [address] [id number] [place] [id number] Mar, [facility] [place] [facility] [address] [facility] [id number] [place] [address]- 8763 Mar, [facility] [address] [id number] [place] [id number] Mar, [facility] [place] [facility] [address] [id number] [place] [address]- 9185 Mar, [facility] [address] [id number] [place] 332725192 Mar, [facility] [place] [facility] [address] [id number] [place] [address]- 8811 Mar, [facility] [address] [id number] [place] 935390119 Mar, [facility] [place] [facility] [address] [id number] [place] [address]- 0185 Mar, [facility] [address] [id number] [place] 515713137 Mar, [facility] [place] [facility] [address] [facility] [id number] [place] [address]- 7392 Mar, [facility] [address] [id number], [place] 762165499 Mar, [facility] [place] [facility] [address] [facility] [id number] [place] [address]- 9127 Mar, [facility] [address] [id number] [place] [id number] Feb, [facility] [place] [facility] [address] [facility] [id number] [place] [address]- 0570 Feb, [facility] [address] [id number] [place] [id number] Feb, [facility] [place] [facility] [address] [id number] [place] [address]- 6921 Feb, [facility] [address] [id number] [place] [id number] Feb, [facility] [place] [facility] [address] [id number] [place] [address]- 2311 Feb, [facility] [address] [id number] [place] [id number] Feb, [facility] [place] [facility] [address] [id number] [place] [address]- 4066 Feb, [facility] [address] [id number] [place] [id number] Feb, [facility] [place] [facility] [address] [facility] [id number] [place] [address]- 2332 Feb, [facility] [address] [id number] [place] [id number] Feb, [facility] [place] [facility] [address] [id number] [place] [address]- 1417 Feb, [facility] [address] [id number] [place] [id number] Feb, [facility] [place] [facility] [address] [facility] [id number] [place] [address]- 8111 Feb, [facility] [address] [id number] [place] [id number] Feb, [facility] [place] [facility] [address] [facility] [id number][place] [address]- 5110 Feb, [facility] [address] [id number] [place] [id number] Feb, [facility] [place] [facility] [address] [facility] [id number] [place] [address]- 3640 Feb, [facility] [address] [id number] [place] [id number] Feb, [facility] [address] [id number] [place] [id number] Feb, [facility] [place] [facility] [address] [facility] [id number], [place] [address]- 9600 Feb, [facility] [place] [facility] [address] [facility] [id number] [place] [address]- 3051 Feb, [facility] [address] [id number] [place] [id number] Feb, [facility] [place] [facility] [address] [facility] [id number] [place] [address]- 2552 Feb, [facility] [address] [id number] [place] [id number] Feb, [facility] [place] [facility] [address] [id number] [place]- 3614 Feb, [facility] [address] [id number] [place] [id number] Feb, [facility] [place] [facility] [address] [facility] [id number] [place] [address]- 9596 Feb, [facility] [address] [id number] [place] [id number] Jan, [facility] [place] [facility] [address] [id number] [place] [address]- 6612 Jan, [facility] [place] [facility] [address] [facility] [id number], [place] [address]- 5642 Jan, [facility] [place] [facility] [address] [facility] [id number], [place] [address]- 0345 Jan, [facility] [place] [facility] [address] [facility] [id number], [place] [address]- 3936 Jan, [facility] [place] [facility] [address] [facility] [id number], [place] [address]- 5826 Jan, [facility] [address] [facility] [id number], [place] 622838056 Jan, [facility] [place] [facility] [address] [facility] [id number], [place] [address]- 7494 Jan, [facility] [place] [facility] [address] [facility] [id number], [place] [address]- 7884 Jan, [facility] [place] [facility] [address] [facility] [id number], [place] [address]- 5223 Jan, [facility] [address] [id number] [place] [id number] Jan, [facility] [address] [id number] [place] [id number] Jan, [facility] [place] [facility] [address] [facility] [id number], [place] 50976842- 3793 Jan, [facility] [place] [facility] [address] [id number] [place] [address]- 7196 Jan, [facility] [address] [id number] [place] [id number] Jan, [facility] [address] [id number] [place] [id number] Jan, [facility] [place] [facility] [address] [id number] [place] [address]- 8466 Jan, [facility] [place] [facility] [address] [id number] [place] [address] 2546 Jan, [facility] [place] [facility] [address] [id number] [place] [address]- 0256 Jan, [facility] [address] [id number] [place] [id number] December, [facility] [place] [facility] [address] [facility] [id number] [place] [address]- 5136 December, [facility] [place] [facility] [address] [facility] [id number], [place] [address]- 0956 December, [facility] [address] [id number] [place] [id number] December, [facility] [place] [facility] [address] [facility] [id number], [place] [address]- 5396 December, [facility] [address] [id number] [place] 730476438 December, [facility] [place] [facility] [address] [id number] [place] [address]- 2546 December, [facility] [address] [id number] [place] [id number] December, [facility] [place] [facility] [address] [facility] [id number] [place] [address]- 2546 December, [facility] [address] [id number] [place] 079331578 Nov, [facility] [place] [facility] [address] [id number], [place] [address]- 7006 Nov, [facility] [address] [facility] [id number], [place] [id number] Nov, [facility] [place] [facility] [address] [facility] [id number], [place] [address]- 1242 Nov, [facility] [place] [facility] [address] [facility] [id number], [place] [address]- 2276 Nov, [facility] [place] [facility] [address] [facility] [id number], [place] [address]- 1368 Nov, [facility] [place] [facility] [address] [facility] [id number], [place] 056877- 7576 Oct, [facility] [address] [facility] [id number], [place] [id number] Oct, [facility] [place] [facility] [address]00565100[place], [place] [address]- 7062 Oct, [facility] [address] [facility] [id number], [place] [id number] Oct, [facility] [place] [facility] [address] [facility] [id number], [place] [address]- 5027 Oct, [facility] [address] [facility] [id number], [place] 832480484 Sep, [facility] [place] [facility] [address] [facility] [id number], [place] [address]- 9378 Sep, [facility] [address] [facility] [id number], [place] [id number] Aug, [facility] [place] [facility] [address] [facility] [id number], [place] [address]- 9371 Aug, [facility] [address] [facility] [id number], [place] [id number] Aug, [facility] [place] [facility] [address] [facility] [id number], [place] [address]- 1393 Aug, [facility] [place] [facility] [address] [facility] [id number], [place] [address]- 2425 Aug, [facility] [address] [id number], [place] [id number] Aug, [facility] [place] [facility] [address] [facility] [id number], [place] [address]- 1636 Aug, [facility] [place] [facility] [address] [facility] [id number], [place] [address]- 3276 Aug, [facility] [address] [facility] [id number], [place] [id number] Aug, [facility] [place] [facility] [address] [facility] [id number], [place] [address]- 6326 Aug, [facility] [address] [facility] [id number], [place] 231885654 Jul, [facility] [place] [facility] [address]00565100[place], [place] [address]- 9773 Jul, [facility] [address] [id number], [place] 452355325 Jul, [facility] [place] [facility] [address]00565100[place], [place] [address]- 8973 Jul, [facility] [address] [facility] [id number], [place] [id number] Jul, [facility] [place] [facility] [address]00565100[place], [place] [address]- 4931 Jul, [facility] [address] [facility] [id number], [place] [id number] Jul, [facility] [place] [facility] [address] [id number], [place] [address]- 6753 Jul, [facility] [address] [facility] [id number], [place] 116570044 Jun, [facility] [place] [facility] [address] [facility] [id number], [place] [address]- 7736 Jun, [facility] [address] [facility] [id number], [place] [id number] Jun, [facility] [place] [facility] [address]00565100[place], [place] [address]- 0670 Jun, [facility] [address] [facility] [id number], [place] [address]- 2546 Jun, [facility] [address] [facility] [id number], [place] [address]- 2546 Jun, [facility] [address] [id number] [place] 512427546 Apr, [facility] [address] [id number] [place] 030067041 Mar, [facility] [address] [id number] [place] 675860957 Mar, [facility] [address] [id number] [place] 623851316 Feb, [facility] [address] [id number] [place] [id number] Feb, [facility] [address] [id number] [place] 436324190 Feb, [facility] [address] [id number] [place] [id number] December, [facility] [address] [id number] [place] [id number] December, [facility] [address]00565100[place], [place] [address]- 2546 December, [facility] [address] [id number] [place] 309351835 December, [facility] [address] [id number] [place] 146851849 December, [facility] [address] [id number] [place] 620949015 Nov, [facility] [address] [id number] [place] [id number] Nov, [facility] [address] [id number] [place] 780136049 Nov, [facility] [address] [id number] [place] [id number] Oct, [facility] [address] [id number] [place] 628576371 Sep, [facility] [address] [id number], [place] [id number] Aug, [facility] [address] [facility] [id number], [place] [address]- 2546 Aug, [facility] [address] [id number], [place] [id number] Aug, [facility] [address] [id number], [place] 829818830 Jul, [facility] [address] [facility] [id number], [place] [address]- 2546 Jul, [facility] [address] [id number], [place] [id number] Jul, [facility] [address] [facility] [id number], [place] [address] 2544 Jul, [facility] [address] [id number], [place] 467880474 Jun, [facility] [address]00565100[place], [place] [address]- 0799 Jun, [facility] [address] [id number], [place] [id number] May, [facility] [address] [facility] [id number], [place] [address]- 9778 May, [facility] [address] [id number], [place] [id number] May, [facility] [address] [facility] [id number], [place] [address] May, [facility] [address] [id number][place] [id number] Apr, [facility] [address] [id number][place] [id number] Apr, [facility] [address] [id number], [place] [id number] Mar, [facility] [address] [id number][place] [id number] Mar, [facility] [address] [id number] [place] [id number] Feb, [facility] [place] [address] [id number] [place] [id number] Feb, [facility] [place] [address] [id number] [place] [id number] Jan, [facility] [place] [address] [id number] [place] [id number] Jan, [facility] [place] [address] [id number] [place] [id number] Jan, [facility] [place] [address] [id number] [place] [id number] Jan, [facility] [address] [id number] [place] [id number] December, [facility] [address] [id number] [place] [id number] December, [facility] [address] [id number], [place] [address] Nov, [facility] [address] [id number] [place] [id number] Nov, [facility] [address] [id number] [place] [id number] Nov, [facility] [address] [id number] [place] [id number] Nov, [facility] [address] [id number] [place] [id number] Nov, [facility] [address] [facility] [id number], [place] [address] Oct, [facility] [address] [facility] [id number], [place] [address] Oct, [facility] [address] [id number] [place] [id number] Oct, [facility] [address] [id number] [place] [id number] Oct, [facility] [address] [id number] [place] [id number] Oct, [facility] [place] [address] [id number] [place] [id number] Oct, [facility] [place] [address] [id number] [place] [id number] Oct, [facility] [place] [address] [id number] [place] [id number] Oct, [facility] [place] [address] [id number] [place] [id number] Oct, [facility] [address] [facility] [id number], [place] [address] Oct, [facility] [place] [address] [id number] [place] [id number] Sep, [facility] [place] [address] [id number] [place] [id number] Sep, [facility] [address] [id number] [place] [id number] Aug, [facility] [address] [id number] [place] [id number] Aug, [facility] [id number] [address] Jul, [facility] [id number] [place] [address] Jul, [facility] [id number] [address] Jul, [facility] [id number] [place] [id number] Jul, [facility] [id number], [place] [address] Jul, [facility] [id number] [place] [address] Jul, [facility] [id number] [address] Jul, [facility] [id number] [place] [address] Jul, [facility] [address] [facility] [id number], [place] [address] Jul, [facility] [address] [id number], [place] [address] Jul, [facility] [address] [id number], [place] [address] Jul, [facility] [address] [address] Jul, [facility] [address] [id number], [place] [address] Jul, [facility] [address] [id number] [address] Jul, IMMUNIZATIONS No Known Immunizations SOCIAL HISTORY Never Assessed REASON FOR VISIT med refill PLAN OF CARE VITAL SIGNS MEDICATIONS Medication Instructions Dosage Frequency Start Date End Date Duration Status Levemir Flexpen 100 UNIT/ML Subcutaneous 2 times a day 33 units 12h 0 days Active RESULTS No Results PROCEDURES No Known procedures INSTRUCTIONS MEDICATIONS ADMINISTERED No Known Medications MEDICAL (GENERAL) HISTORY Type Description Date Medical History peripheral vascular disease s/p angioplasty w/ stent R leg Medical History hypertension Medical 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
--- OUTSIDE RECORDS SUMMARY | 2018-06-20 10:42 | XMS REPORT ---
Author Author ARIELLE Thorpe Organization [facility] Address [address] [place] [address] Care Team Providers Care Casino Manager Name Role Phone ARIELLE Thorpe Unavailable PROBLEMS Type Condition ICD9-CM Code [id number] Code Onset Dates Condition Status SNOMED Code Problem Chronic obstructive pulmonary disease, unspecified COPD type J44.9 Active 86905687 Problem Peripheral vascular disease I73.9 Active 495158838 Problem Type 2 diabetes mellitus with diabetic neuropathy E11.40 Active 15945621 Problem S/P coronary artery stent placement Z95.5 Active 755322053 Problem Bilateral low back pain without sciatica M54.5 Active 738583096 Problem 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 Active 776747035 Problem 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 Active 046496897 Problem Hypercholesterolemia E78.0 Active 19614823 Problem Type 2 diabetes mellitus with diabetic polyneuropathy E11.42 Active 587508376 Problem Obesity (BMI 30.0-34.9) E66.9 Active [id number] Problem Personal history of carotid stenosis Z86.79 Active 150784147 Problem Aphasia R47.01 Active 69983146 Problem Fatigue, unspecified type R53.83 Active 51641827 Problem Uses walker Z99.89 Active 982155506 Problem Other chronic pain G89.29 Active 68128042 Problem Chronic diarrhea K52.9 Active 955972919 Problem Major depressive disorder, single episode, mild F32.0 Active 12733222 Problem Chronic fatigue R53.82 Active 42889984 Problem Pain in left shoulder M25.512 Active 92894153 Problem Chronic pain syndrome G89.4 Active 395181876 Problem Type 2 diabetes mellitus with diabetic retinopathy, macular edema presence unspecified, with unspecified retinopathy severity E11.319 Active 48910910 Problem High risk medication use Z79.899 Active 102086310 Problem Osteomyelitis of right foot, unspecified chronicity M86.9 Active 59797838 Problem Fecal urgency R15.2 Active 41960005 Problem Diabetes type 2, uncontrolled E11.65 Active 558375136 Problem Full incontinence of feces R15.9 Active 639268624104360 Problem Mixed stress and urge urinary incontinence N39.46 Active 486452117 Problem Functional diarrhea K59.1 Active 78875532 Problem Hyperlipidemia, unspecified hyperlipidemia E78.5 Active 30269468 Problem CKD (chronic kidney disease) stage 3, GFR 30-59 ml/min N18.3 Active 453072420 Problem 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 Active 8860804359560 Problem GERD without esophagitis K21.9 Active 387471131 Problem Insulin long-term use Z79.4 Active 364691901 Problem Essential hypertension I10 Active 32698350 Problem Depression F32.9 Active 85364041 Problem CKD (chronic kidney disease), stage 3 (moderate) N18.3 Active 546154066 Problem Type 2 diabetes mellitus with foot ulcer E11.621 Active 580332707 Problem Frequent falls R29.6 Active 602134364 Problem Type 2 diabetes mellitus with diabetic peripheral angiopathy without gangrene E11.51 Active 714255786 Problem Comprehensive diabetic foot examination, type 2 DM, encounter for E11.9 Active 32533346 Problem Mixed hyperlipidemia E78.2 Active 918580052 Problem Chronic kidney disease, unspecified N18.9 Active 637229445 ALLERGIES No Information ENCOUNTERS Encounter Location Date Diagnosis [facility] [address] [facility] [id number] [address] 16 May, 2018 Type 2 diabetes mellitus with diabetic neuropathy E11.40 ; 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 ; Major depressive disorder, single episode, mild F32.0 and Essential hypertension I10 [facility] [address] [id number] [id number] May, [place] [address] [id number] [id number] May, [facility] [address] [id number] [id number] May, [address]65[address] [id number] Apr, Other chronic pain G89.29 [facility] [place] [address] [id number] [place] [phone] Apr, [facility] [place] [address] [id number] [place] [id number] Apr, Essential hypertension I10 [facility] [place] [address] [id number] [place] [id number] Mar, Other chronic pain G89.29 [facility] [place] [address] [id number] [place] [id number] Mar, [facility] [place] [address] [id number] [place] [id number] Feb, Other chronic pain G89.29 [facility] [place] [address] [id number] [place] [id number] Feb, Diabetes type 2, uncontrolled E11.65 ; Type 2 diabetes mellitus with diabetic retinopathy, macular edema presence unspecified, with unspecified retinopathy severity E11.319 and Bilateral low back pain without sciatica M54.5 [facility] [place] [address] [id number] [place] [phone] Feb, [facility] [place] [address] [id number] [place] [id number] Feb, Diabetes type 2, uncontrolled E11.65 [facility] [place] [address] [id number][place] [id number] Feb, Other chronic pain G89.29 [facility] [place] [address] [id number][place] [id number] Jan, [facility] [place] [address] [id number][place] [id number] Jan, [facility] [place] [address] [id number] [place] [id number] Jan, [facility] [place] [address] [id number] [place] [phone] Jan, Other chronic pain G89.29 [facility] [place] [address] [id number][place] [id number] December, Mixed stress and urge urinary incontinence N39.46 [facility] [place] [address] [id number][place] [id number] December, Chronic fatigue R53.82 [facility] [id number], [place] [id number] December, Other chronic pain G89.29 [facility] [id number] [place] [address] [id number] December, Diabetes type 2, uncontrolled E11.65 ; [...] type J44.9 and Other chronic pain G89.29 [facility] [address]005[address] [address] December, [address]00565100[place] [id number] December, Medicare annual wellness visit, subsequent Z00.00 ; Type 2 diabetes mellitus with diabetic polyneuropathy E11.42 ; Chronic obstructive pulmonary disease, unspecified COPD type J44.9 ; Depression F32.9 ; Peripheral vascular disease I73.9 ; 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 ; Hypercholesterolemia E78.0 ; GERD without esophagitis K21.9 and Chronic kidney disease, unspecified N18.9 [facility] [address] [id number], [place] [id number] December, Mixed stress and urge urinary incontinence N39.46 ; Full incontinence of feces R15.9 ; Fecal urgency R15.2 ; Functional diarrhea K59.1 and Type 2 diabetes mellitus with diabetic neuropathy E11.40 [facility] [address] [id number][place] [id number] Nov, Other chronic pain G89.29 [place] [id number] [place] [address] [id number] Oct, [address]00565100[place], [place] [id number] Oct, [id number] [place] [address] [id number] Oct, Other chronic pain G89.29 [address] [place] [address] [id number] Sep, Other chronic pain G89.29 [address] [place] [address] [id number] Aug, CKD (chronic kidney disease), stage 3 (moderate) N18.3 ; Anemia, unspecified type D64.9 and Dilated pore of Ly L70.8 [address] [place] [address] [id number] Aug, Other chronic pain G89.29 ; Pain in left shoulder M25.512 ; High risk medication use Z79.899 ; Uses walker Z99.89 ; Diabetes type 2, uncontrolled E11.65 and Depression F32.9 [address] [place] [address] [id number] Aug, Chronic diarrhea K52.9 [address] [place] [address] [id number] 05 Aug, 2017 Chronic diarrhea K52.9 ; Type 2 diabetes mellitus with diabetic neuropathy E11.40 ; Diabetes type 2, uncontrolled E11.65 ; Insulin long-term use Z79.4 ; Chronic obstructive pulmonary disease, unspecified COPD type J44.9 ; Chronic pain syndrome G89.4 ; Pain in left shoulder M25.512 ; Uses walker Z99.89 ; S/P coronary artery stent placement Z95.5 ; Mixed hyperlipidemia E78.2 and Essential hypertension I10 [address]00565100[place], [place] [id number] Aug, [address] [place] [address] [id number] Jul, Diabetes type 2, uncontrolled E11.65 [address] [place] [address] [id number] Jul, Diabetes type 2, uncontrolled E11.65 ; Type 2 diabetes mellitus with diabetic neuropathy E11.40 ; Insulin long-term use Z79.4 and Chronic obstructive pulmonary disease, unspecified COPD type J44.9 [address] [place] [address] [id number] Jun, [address] [place] [address] [id number] Jun, Essential hypertension I10 [address] [place] [address] [id number] Jun, Essential hypertension I10 [address] [place] [address] [id number] Jun, Type 2 diabetes mellitus with diabetic neuropathy E11.40 ; Type 2 diabetes mellitus with diabetic polyneuropathy E11.42 ; S/P coronary artery stent placement Z95.5 ; Obesity (BMI 30.0-34.9) E66.9 ; Mixed hyperlipidemia E78.2 ; Frequent falls R29.6 ; Chronic obstructive pulmonary disease, unspecified COPD type J44.9 ; Essential hypertension I10 ; Insulin long-term use Z79.4 and High risk medication use Z79.899 [address] [place] [address] [id number] May, Diarrhea, unspecified type R19.7 ; Type 2 diabetes mellitus with diabetic neuropathy E11.40 ; Chronic obstructive pulmonary disease, unspecified COPD type J44.9 ; S/P coronary artery stent placement Z95.5 ; High risk medication use Z79.899 ; Essential hypertension I10 ; Encounter for administration of vaccine Z23 and Encounter for immunization Z23 [address] [id number] [place] [id number] May, Chronic obstructive pulmonary disease, unspecified COPD type J44.[id number] [place] [address] [id number] May, Type 2 diabetes mellitus with diabetic polyneuropathy E11.42 ; Encounter for immunization Z23 ; Needs flu shot Z23 ; Comprehensive diabetic foot examination, type 2 DM, encounter for E11.9 and Obesity (BMI 30.0-34.9) E66.9 [address] [place] [address] [id number] May, [address]65100[place] [id number] Apr, [address] [id number] [place] [address] [id number] Apr, Essential hypertension I10 and Aphasia R47.01 [address] [place] [address] [id number] Apr, [id number] [place] [address] [id number] Apr, Type 2 diabetes mellitus with diabetic neuropathy E11.40 ; Frequent falls R29.6 ; Essential hypertension I10 ; S/P coronary artery stent placement Z95.5 ; High risk medication use Z79.899 ; Hyperlipidemia, unspecified hyperlipidemia E78.5 ; CKD (chronic kidney disease), stage 3 (moderate) N18.3 ; Pain in left shoulder M25.512 and Chronic obstructive pulmonary disease, unspecified COPD type J44.9 [address] [place] [address] [id number] Mar, [id number] [place] [address] [id number] Mar, Type 2 diabetes mellitus with diabetic polyneuropathy E11.42 ; Leg wound, left, initial encounter S81.802A ; Hx of shoulder surgery Z98.890 ; Acute pain of left shoulder M25.512 and Fall, initial encounter W19.XXXA [address] [place] [address] [id number] Feb, Follow-up exam Z09 ; Hx of shoulder surgery Z98.890 ; Acute pain of left shoulder M25.512 ; Essential hypertension I10 and Leg wound, left, initial encounter S81.802A [address] [place] [address] [id number] Feb, [address] [place] [address] [id number] Feb, [address] [place] [address] [id number] Feb, Chronic obstructive pulmonary disease, unspecified COPD type J44.[address] [id number][place] [id number] Feb, [facility] [id number] [place] [address] [id number] Jan, Generalized weakness R53.1 ; Exertional shortness of breath R06.02 and Fungal rash of trunk B36.9 [facility] [id number] [place] [address] [id number] Jan, [facility] [id number] [place] [address] [id number] Jan, [facility] [id number] [place] [address] [id number] Jan, [facility] [id number] [place] [address] [id number] Jan, [facility] [id number] [place] [address] [id number] December, High risk medication use Z79.899 [facility] [id number] [place] [address] [id number] December, Type 2 diabetes mellitus with diabetic neuropathy E11.40 [facility] [id number] [place] [address] [id number] December, High risk medication use Z79.899 [id number] [place] [address] [id number] Nov, Diabetes type 2, uncontrolled E11.65 [id number] [place] [address] [id number] Nov, Medicare annual wellness visit, initial Z00.00 ; Bilateral low back pain without sciatica M54.5 ; Pain in left shoulder M25.512 ; Chronic pain syndrome G89.4 ; Type 2 diabetes mellitus with diabetic polyneuropathy E11.42 ; High risk medication use Z79.899 and Encounter for immunization Z23 [facility] [id number] [place] [address] [id number] Nov, Type 2 diabetes mellitus with diabetic neuropathy E11.40 ; 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 and CKD (chronic kidney disease), stage 3 (moderate) N18.3 [facility] [id number], [place] [id number] Oct, Type 2 diabetes mellitus with diabetic polyneuropathy E11.42 ; Chronic pain syndrome G89.4 ; Chronic obstructive pulmonary disease, unspecified COPD type J44.9 ; Chronic kidney disease, unspecified N18.9 and Rash R21 [address] [id number][place] [id number] Oct, Type 2 diabetes mellitus with diabetic neuropathy E11.40 [facility] [id number] [place] [address] [id number] Oct, Rash R21 and Impetigo L01.00 [place] [id number] [place] [address] [id number] Oct, Chronic pain syndrome G89.4 [facility] [id number] [place] [address] [id number] Oct, [facility] [id number] [place] [address] [id number] Sep, Sebaceous cyst L72.3 [facility] [id number] [place] [address] [id number] Sep, Sebaceous cyst L72.3 [facility] [id number] [place] [address] [id number] Sep, 2016 Chronic pain syndrome G89.4 ; Pain in left shoulder M25.512 and Effusion of olecranon bursa, left M25.422 [facility] [address] [address] Aug, [facility] [id number] [place] [address] [id number] Aug, [facility] [id number] [place] [address] [id number] Aug, Mixed hyperlipidemia E78.2 and Chronic kidney disease, unspecified N18.9 [facility] [id number] [place] [address] [id number] Jul, Type 2 diabetes mellitus with diabetic neuropathy E11.40 ; Essential hypertension I10 and S/P coronary artery stent placement Z95.5 [facility] [id number], [place] [id number] Jul, 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 [facility] [id number] [place] [address] [id number] Jul, Diabetes type 2, uncontrolled E11.65 ; Essential hypertension I10 and 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 [facility] [id number] [place] [address] [id number] Jul, [facility] [id number] [place] [address] [id number] Jul, [facility] [id number] [place] [address], [place] [id number] Jul, [facility] [id number] [place] [address], [place] [id number] Jul, Chronic obstructive pulmonary disease, unspecified COPD type J44.9 [facility] [id number] [place] [address] [id number] Jun, CKD (chronic kidney disease), stage 3 (moderate) N18.3 and Anemia, unspecified type D64.9 [facility] [id number], [place] [id number] Jun, Type 2 diabetes mellitus with diabetic neuropathy E11.40 ; Decreased GFR R94.4 ; CKD (chronic kidney disease), stage 3 (moderate) N18.3 and Decreased hemoglobin R71.0 [place] [id number] [place] [address] [id number] Jun, CKD (chronic kidney disease), stage 3 (moderate) N18.3 and Anemia, unspecified type D64.9 [facility] [id number], [place] [id number] Jun, Type 2 diabetes mellitus with diabetic neuropathy E11.40 ; Decreased GFR R94.4 and CKD (chronic kidney disease), stage 3 (moderate) N18.3 [facility] [id number] [place] [address] [id number] Jun, Type 2 diabetes mellitus with diabetic neuropathy E11.40 and Essential hypertension I10 [facility] [id number] [place] [address] [id number] Jun, [address]00565100[place], [place] [id number] Jun, [id number] [place] [address] [id number] Jun, Type 2 diabetes mellitus with diabetic neuropathy E11.40 ; S/P coronary artery stent placement Z95.5 ; Chronic obstructive pulmonary disease, unspecified COPD type J44.9 ; Essential hypertension I10 ; GERD without esophagitis K21.9 ; Peripheral vascular disease I73.9 ; Mixed hyperlipidemia E78.2 and Hospital discharge follow-up Z09 [address]005[address]100[place], [place] [id number] Jun, [id number] [place] [address] [id number] May, Depression F32.9 and Hyperlipidemia, unspecified hyperlipidemia E78.5 [facility] [address] [address] May, [address] [place] [address] [id number] May, [address] [place] [address] [id number] May, Essential hypertension I10 ; Chronic pain syndrome G89.4 ; Pain in left shoulder M25.512 ; High risk medication use Z79.899 ; Chronic obstructive pulmonary disease, unspecified COPD type J44.9 ; S/P coronary artery stent placement Z95.5 ; Personal history of carotid stenosis Z86.79 ; Hyperlipidemia, unspecified hyperlipidemia E78.5 ; Decreased GFR R94.4 and Type 2 diabetes mellitus with diabetic polyneuropathy E11.42 [address]00565100[place], [place] [id number] May, Hemoglobin decreased R71.0 and Decreased GFR R94.4 [address] [place] [address] [id number] May, Hemoglobin decreased R71.0 and Decreased GFR R94.4 [address] [place] [address] [id number] May, [id number] [id number] May, [facility] [id number] [place] [address] [id number] Apr, [facility] [id number] [place] [address] [id number] Apr, Type 2 diabetes mellitus with foot [...] unspecified hyperlipidemia E78.5 and Essential hypertension I10 [facility] [id number] [place] [address] [id number] Apr, [facility] [id number] [place] [address] [id number] Mar, [facility] [id number] [place] [address] [id number] Mar, [facility] [id number] [place] [phone] Mar, [facility] [id number] [place] [address] [id number] Feb, [facility] [id number] [place] [address] [id number] Feb, [facility] [id number] [place] [address] [id number] Feb, [facility] [id number] [place] [address] [id number] Jan, Type 2 diabetes mellitus with diabetic polyneuropathy E11.42 ; Hypercholesterolemia E78.0 ; Chronic pain syndrome G89.4 ; Pain in left shoulder M25.512 and High risk medication use Z79.899 [facility] [id number] [place] [address] [id number] Jan, [id number] [place] [address] [id number] Jan, [facility] [id number], [place] [id number] December, [facility] [id number] [place] [address] [id number] December, [facility] [id number] [place] [address] [phone] December, Diabetes type 2, uncontrolled E11.65 ; Type 2 diabetes mellitus with diabetic neuropathy E11.40 ; Peripheral vascular disease I73.9 ; 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 and 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 [facility] [id number], [place] [id number] Nov, [facility] [id number] [place] [address] [id number] Nov, [facility] [id number] [place] [address] [id number] Nov, [facility] [id number] [place] [address] [id number] Nov, Right hip pain M25.551 [facility] [id number] [place] [address] 29[address]- [phone] Nov, [facility] [id number] [place] [address] [phone] Nov, [facility] [id number] [place] [address] [id number] Nov, Diabetes with neurological manifestations, type II or unspecified type, 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.60 [facility] [address] [id number] [id number] Nov, [facility] [id number], [place] [id number] Nov, [facility] [id number] [place] [address] [id number] Oct, Diabetes type 2, uncontrolled E11.65 ; Type 2 diabetes mellitus with diabetic neuropathy, unspecified E11.40 and Low back pain M54.5 [facility] [address] [id number], [place] [id number] Oct, [facility] [address] [id number], [place] [id number] Oct, [facility] [address] [id number], [place] [id number] Oct, [facility] [address] [id number], [place] [id number] Sep, [facility] [id number], [place] [phone] Sep, [facility] [address] [id number] [address] Sep, [facility] [id number] [place] [address] [id number] Sep, [facility] [address] [address] [id number][place] [id number] Sep, [facility] [id number] [place] [address] [id number] Aug, 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 [facility] [address] [id number], [place] [id number] Aug, [facility] [id number], [place] [id number] Aug, Allergic rhinitis due to pollen J30.[address] [facility] [address] [id number], [place] [id number] Jul, [facility] [id number], [place] [id number] Jul, [facility] [id number], [place] [id number] Jul, [facility] [address] [facility] [id number], [place] [id number] Jun, [facility] [id number], [place] [id number] Jun, Thumb tendonitis M77.8 and Ringing in ear, bilateral H93.13 [facility] [place] [address] [id number], [place] [id number] Jun, [facility] [address]00565[place] [id number] May, [place] [address] [id number]- 8414 May, [place] [id number] [place] [address] [id number]- 6329 May, Pre-op evaluation Z01.818 ; Encounter for immunization Z23 ; Type 2 diabetes mellitus with diabetic peripheral angiopathy without gangrene E11.51 ; Insulin long-term use Z79.4 ; Type 2 diabetes mellitus with foot ulcer E11.621 ; Peripheral vascular disease I73.9 ; 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 ; S/P coronary artery stent placement Z95.5 ; Osteomyelitis of right foot, unspecified chronicity M86.9 and Chronic obstructive pulmonary disease, unspecified COPD type J44.9 [place] [id number] [place] [address] [id number] 9914 May, [place] [id number] [place] [address] [id number] May, [address] [id number] May, Diabetes type 2, uncontrolled E11.65 ; Encounter for immunization Z23 ; Osteopenia M85.80 and Allergic rhinitis due to pollen J30.1 [place] [id number] [place] [address] [id number] May, Lumbago 724.2 [place] [id number] [place] [address] [id number] Apr, [place] [id number] [place] [address] [id number] Apr, [place] [id number] [place] [address] [id number] Apr, [place] [id number] [place] [address] [id number] Apr, [place] [id number] [place] [address] 76798- 2546 Mar, [facility] [address] [id number] [place] [id number] Mar, [facility] [address] [id number] [place] [id number] Mar, [facility] [address] [id number] [place] [id number] Mar, [facility] [address] [id number] [place] [id number] Mar, [facility] [id number] [address] 36[address] Mar, [facility] [address] [id number] [place] [id number] Mar, [facility] [address] [id number] [place] [id number] Mar, Diabetes with neurological manifestations, type II or unspecified type, 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.60 and Severe obesity (BMI 35.0-35.9 with comorbidity) 278.01 [facility] [address] [id number] [place] [id number] Mar, [facility] [id number] [address]- 7129 Mar, [facility] [id number] [address]- 3926 Feb, [facility] [address] [id number], [place] [id number] Feb, [facility] [address] [id number] [place] [id number] Feb, [facility] [address] [id number] [place] [id number] Feb, Diabetes with neurological manifestations, type II or unspecified type, 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.60 [facility] [address] [id number] [place] [id number] Feb, [facility] [id number] [address]- 2327 Feb, [facility] [address] [id number], [place] [id number] Feb, [facility] [address] [id number], [place] [id number] Feb, Follow up V67.9 ; Diabetes with neurological manifestations, type II or unspecified type, 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.60 and Congestive heart failure 428.0 [facility] [id number], [place] [id number] Jan, [facility] [id number] [place] [address] [id number] Jan, [facility] [id number], [place] [id number] Jan, [facility] [id number] [place] [address] [id number] December, Otitis media with effusion 381.4 ; Left arm numbness 782.0 and Osteoporosis 733.[address] [facility] [id number], [place] [id number] December, [facility] [id number], [place] [id number] Nov, [facility] [id number], [place] 191823501 Nov, Serous otitis media 381.4 and Lumbago 724.2 [facility] [id number] [address]- 4285 Nov, [facility] [id number] [address]- 2006 Nov, [facility] [id number], [place] 198080565 Oct, [facility] [id number] [place] [address] 83311- 3383 Oct, [facility] [id number], [place] [id number] Oct, [facility] [address] [id number] [address]- 4006 Oct, [facility] [address] [id number], [place] [id number] Oct, [facility] [place] [facility] [address] [facility] [id number] [address]- 2033 Oct, [facility] [place] [facility] [address] [facility] [id number] [address]- 0798 Sep, [facility] [place] [facility] [address] [facility] [id number] [address]- 0567 Sep, [facility] [address] [facility] [id number], [place] 615739194 Sep, [facility] [place] [facility] [id number] [address]- 3850 Sep, [facility] [address] [id number], [place] [id number] Aug, [facility] [place] [facility] [id number] [address]- 1065 Aug, [facility] [address] [id number], [place] [id number] Aug, [facility] [place] [facility] [id number] [address]- 1610 Aug, [facility] [id number], [place] [id number] Jul, [facility] [place] [facility] [address] [id number] [address]- 5511 Jul, [facility] [address] [facility] [id number], [place] [id number] Jul, [facility] [place] [facility] [address] [facility] [id number] [address]- 6841 Jul, [facility] [address] [facility] [id number], [place] [id number] Jul, [facility] [place] [facility] [address] [facility] [id number] [address]- 7174 Jul, [facility] [address] [id number], [place] [id number] Jun, [facility] [place] [facility] [address] [facility] [id number] [place] [address]- 1476 Jun, [facility] [address] [facility] [id number], [place] [id number] May, [facility] [place] [facility] [address] [facility] [id number] [address]- 0656 May, [facility] [address] [facility] [id number], [place] [id number] May, [facility] [place] [facility] [address] [facility] [id number] [address]- 2096 May, [facility] [address] [facility] [id number] [place] [address] [id number] May, [facility] [place] [facility] [id number] [address]- 8786 May, [facility] [id number], [place] 058378754 May, [facility] [address] [facility] [id number], [place] 236526249 May, [facility] [place] [facility] [id number] [address]- 8409 May, [facility] [place] [facility] [id number] [address]- 7074 May, [facility] [address] [id number], [place] [id number] May, [facility] [place] [facility] [id number] [address]- 0419 May, [facility] [place] [facility] [address] [facility] [id number] [address]- 0657 Apr, [facility] [address] [facility] [id number], [place] 144450496 Apr, [facility] [place] [facility] [address] [facility] [id number] [address]- 7441 Apr, [facility] [address] [facility] [id number], [place] [id number] Apr, [facility] [address] [id number] [place] [id number] Apr, 2013 [facility] [place] [facility] [address] [facility] [id number] [place] [address]- 6311 Apr, [facility] [place] [facility] [address] [facility] [id number] [place] [address]- 6615 Apr, 2013 [facility] [address] [facility] [id number] [place] [id number] Apr, [facility] [place] [facility] [address] [facility] [id number] [place] [address]- 7967 Apr, [facility] [address] [id number] [place] [id number] Apr, [facility] [place] [facility] [address] [facility] [id number] [address]- 5724 Apr, [facility] [address] [facility] [id number], [place] 890208391 Apr, [facility] [place] [facility] [address] [id number] [address]- 0416 Apr, [facility] [address] [facility] [id number], [place] [id number] Apr, [facility] [place] [facility] [address] [id number] [address]- 0140 Apr, [facility] [address] [facility] [id number], [place] 856435059 Apr, [facility] [place] [facility] [address] [facility] [id number] [address]- 6797 Apr, [facility] [address] [facility] [id number], KS 650549826 Apr, [facility] [place] [facility] [address] [facility] [id number] [address]- 5287 Apr, [facility] [address] [facility] [id number], [place] 789212595 Mar, [facility] [place] [facility] [address] [facility] [id number] [address]- 8139 Mar, [facility] [address] [id number] [place] [id number] Mar, [facility] [address] [id number] [place] [id number] Mar, [facility] [place] [facility] [address] [id number] [place] [address]- 1143 Mar, [facility] [place] [facility] [address] [facility] [id number] [place] [address]- 5905 Mar, [facility] [address] [id number] [place] 108475668 Mar, [facility] [place] [facility] [address] [facility] [id number] [place] [address]- 0193 Mar, [facility] [address] [id number] [place] [id number] Mar, [facility] [place] [facility] [address] [facility] [id number] [address]- 0326 Mar, [facility] [address] [facility] [id number] [place] 904798967 Mar, [facility] [place] [facility] [address] [facility] [id number] [address]- 7767 Mar, [facility] [address] [facility] [id number] [place] 035822616 Mar, [facility] [place] [facility] [address] [facility] [id number] [place] [address]- 2374 Mar, [facility] [address] [id number] [place] [id number] Mar, [facility] [place] [facility] [address] [facility] [id number] [address]- 4348 Mar, [facility] [address] [id number] [place] [id number] Mar, [facility] [place] [facility] [address] [facility] [id number] [address]- 4886 Mar, [facility] [address] [id number] [place] 679772754 Mar, [facility] [place] [facility] [address] [id number] [place] [address]- 0710 Mar, [facility] [address] [id number] [place] [id number] Feb, [facility] [place] [facility] [address] [id number] [place] [address]- 9396 Feb, [facility] [address] [id number] [place] [id number] Feb, [facility] [place] [facility] [address] [id number] [place] [address]- 0220 Feb, [facility] [address] [id number] [place] [id number] Feb, [facility] [place] [facility] [address] [facility] [id number] [place] [address]- 3384 Feb, [facility] [address] [id number] [place] [id number] Feb, [facility] [place] [facility] [address] [facility] [id number] [place] [address]- 5965 Feb, [facility] [address] [id number] [place] [id number] Feb, [facility] [place] [facility] [address] [facility] [id number] [place] [address]- 6630 Feb, [facility] [address] [id number] [place] [id number] Feb, [facility] [place] [facility] [address] [facility] [id number] [place] [address]- 9893 Feb, [facility] [address] [id number] [place] [id number] Feb, [facility] [place] [facility] [address] [facility] [id number] [place] [address]- 0874 Feb, [facility] [address] [id number] [place] 713477334 Feb, [facility] [place] [facility] [address] [facility] [id number] [place] [address]- 9501 Feb, [facility] [address] [id number] [place] [id number] Feb, [facility] [place] [facility] [address] [id number] [place] [address]- 9096 Feb, [facility] [address] [id number] [place] [id number] Feb, [facility] [address] [id number] [place] 777074115 Feb, [facility] [place] [facility] [address] [id number] [place] [address]- 7301 Feb, [facility] [place] [facility] [address] [id number] [place] [address]- 6656 Feb, [facility] [address] [id number] [place] [id number] Feb, [facility] [place] [facility] [address] [facility] [id number] [place] [address]- 8057 Feb, [facility] [address] [id number] [place] [id number] Feb, [facility] [place] [facility] [address] [facility] [id number] [place] [address]- 8272 Feb, [facility] [address] [id number] [place] 687706390 Feb, [facility] [place] [facility] [address] [id number] [place] [address]- 0135 Feb, [facility] [address] [id number] [place] 804258149 Jan, [facility] [place] [facility] [address] [id number] [place] [address]- 4322 Jan, [facility] [place] [facility] [address] [facility] [id number] [place] [address]- 2030 Jan, [facility] [place] [facility] [address] [id number] [place] [address]- 3367 Jan, [facility] [place] [facility] [address] [facility] [id number] [address]- 6897 Jan, [facility] [place] [facility] [address] [id number] [address]- 6747 Jan, [facility] [address] [facility] [id number], [place] 062370698 Jan, [facility] [place] [facility] [address] [facility] [id number] [address]- 6377 Jan, [facility] [place] [facility] [address] [facility] [id number] [address]- 4428 Jan, [facility] [place] [facility] [address] [id number] [address]- 7086 Jan, [facility] [address] [facility] [id number], [place] [id number] Jan, [facility] [address] [facility] [id number], [place] 047965328 Jan, [facility] [place] [facility] [address] [facility] [id number] [address]- 7351 Jan, [facility] [place] [facility] [address] [facility] [id number] [address]- 0356 Jan, [facility] [address] [facility] [id number], [place] [id number] Jan, [facility] [address] [facility] [id number], [place] 644785956 Jan, [facility] [place] [facility] [address] [facility] [id number] [address]- 2110 Jan, [facility] [place] [facility] [address] [facility] [id number] [address]- 7617 Jan, [facility] [place] [facility] [address] [facility] [id number] [address]- 3803 Jan, [facility] [address] [facility] [id number], [place] 528731657 December, [facility] [place] [facility] [address] [facility] [id number] [address]- 0869 December, [facility] [place] [facility] [address] [facility] [id number] [address]- 3471 December, [facility] [address] [facility] [id number] [place] [id number] December, [facility] [place] [facility] [address] [facility] [id number] [place] [address]- 6016 December, [facility] [address] [facility] [id number] [place] [id number] December, [facility] [place] [facility] [address] [facility] [id number] [place] [address]- 0726 December, [facility] [address] [facility] [id number] [place] 599202289 December, [facility] [place] [facility] [address] [facility] [id number] [place] [address]- 1146 December, [facility] [address] [id number], [place] 932369988 Nov, [facility] [place] [facility] [address] [facility] [id number] [address]- 4751 Nov, [facility] [address] [facility] [id number], [place] 908512109 Nov, [facility] [place] [facility] [address] [id number] [address]- 3487 Nov, [facility] [place] [facility] [address] [facility] [id number] [address]- 6793 Nov, [facility] [place] [facility] [address] [facility] [id number] [address]- 7011 Nov, [facility] [place] [facility] [address] [facility] [id number] [place] [address]- 5438 Oct, [facility] [address] [facility] [id number], [place] 424739842 Oct, [facility] [place] [facility] [address] [facility] [id number] [place] [address]- 0889 Oct, [facility] [address] [facility] [id number], [place] 955509311 Oct, [facility] [address] [id number] [place] [address]- 6827 Oct, [facility] [address] [id number], [place] 451522406 Sep, [facility] [address] [facility] [id number] [address]- 1786 Sep, [facility] [address] [id number][place] [id number] Aug, [facility] [address] [id number] [place] [address] Aug, [facility] [address] [facility] [id number][place] [id number] Aug, [facility] [id number] [address] Aug, [facility] [place] [facility] [id number] [address] Aug, [facility] [address] [facility] [id number][place] [id number] Aug, [facility] [place] [facility] [address] [facility] [id number] [place] [address] Aug, [facility] [address] [id number] [address] Aug, [facility] [address] [facility] [id number][place] [id number] Aug, [facility] [place] [facility] [address] [facility] [id number] [place] [address] Aug, [facility] [address] [facility] [id number][place] [id number] Jul, [facility] [place] [facility] [address] [facility] [id number] [place] [address] Jul, [facility] [address] [facility] [id number] [place] [id number] Jul, [facility] [place] [facility] [address] [facility] [id number] [place] [address] Jul, [facility] [address] [id number] [place] [id number] Jul, [facility] [address] [facility] [id number] [place] [address] Jul, [facility] [address] [id number] [place] [id number] Jul, [facility] [address] [facility] [id number] [place] [address] Jul, [facility] [address] [id number] [place] [id number] Jun, [facility] [address] [facility] [id number] [place] [address] Jun, [facility] [address] [id number][place] [id number] Jun, [facility] [id number] [address] Jun, [facility] [address] [id number] [address] Jun, [facility] [id number] [address] Jun, [facility] [address] [id number] [place] [id number] Apr, [facility] [address] [id number] [place] [address] Mar, [facility] [address] [id number] [place] [id number] Mar, [facility] [address] [id number] [place] [id number] Feb, [facility] [address] [id number] [place] [id number] Feb, [facility] [address] [id number] [place] [address] Feb, [facility] [address] [id number] [place] [id number] December, [facility] [address] [id number] [place] [id number] December, [facility] [address] [facility] [id number] [place] [address] December, [facility] [address] [id number] [place] [id number] December, [facility] [address] [id number] [place] [id number] December, [facility] [address] [id number] [place] [id number] Nov, [facility] [address] [id number] [place] [id number] Nov, [facility] [address] [id number] [place] [id number] Nov, [facility] [address] [id number] [place] [id number] Oct, [facility] [address] [id number] [place] [address] Sep, [facility] [address] [id number] [place] [address] Aug, [facility] [address] [facility] [id number] [place] [address] Aug, [facility] [address] [id number] [place] [id number] Aug, [facility] [address] [id number][place] [address] Jul, [facility] [address] [facility] [id number] [place] [address] Jul, [facility] [address] [id number][place] [id number] Jul, [facility] [address] [facility] [id number] [place] Jul, [facility] [address] [id number], [place] [id number] Jun, [facility] [id number] [address] Jun, [facility] [address] [id number] [place] [id number] May, [facility] [address] [facility] [id number] [place] [address] May, [facility] [address] [id number] [place] [id number] May, [facility] [address] [facility] [facility] [id number] [address] May, [facility] [address] [id number] [place] [id number] Apr, [facility] [address] [id number] [place] [id number] Apr, [facility] [address] [id number] [place] [id number] Mar, [facility] [address] [id number] [place] [id number] Mar, [facility] [address] [id number] [place] [id number] Feb, [facility] [address] [id number] [place] [id number] Feb, [facility] [address] [id number] [place] [id number] Jan, [facility] [address] [id number] [place] [id number] Jan, [facility] [address] [id number] [place] [id number] Jan, [facility] [address] [id number] [place] [id number] Jan, [facility] [address] [id number] [place] [id number] December, [facility] [address] [id number] [place] [id number] December, [facility] [address] [facility] [id number] [place] [address] Nov, [facility] [address] [id number] [place] [id number] Nov, [facility] [address] [id number] [place] [id number] Nov, [facility] [address] [id number] [place] [id number] Nov, [facility] [address] [id number] [place] [id number] Nov, [facility] [address] [facility] [id number] [place] [address] Oct, [facility] [address] [facility] [id number] [place] [address] Oct, [facility] [address] [id number] [place] [id number] Oct, [facility] [address] [id number] [place] [id number] Oct, [facility] [address] [id number] [place] [id number] Oct, [facility] [address] [id number] [place] [id number] Oct, [facility] [address] [id number] [place] [id number] Oct, [facility] [address] [id number] [place] [id number] Oct, [facility] [address] [id number] [place] [id number] Oct, [facility] [address] [facility] [id number] [place] [address] Oct, [facility] [address] [id number] [place] [id number] Sep, [facility] [address] [id number] [place] [id number] Sep, [facility] [address] [id number] [place] [id number] Aug, [facility] [address] [id number] [place] [id number] Aug, [facility] [address] [facility] [id number] [place] [address] Jul, [facility] [address] [facility] [id number] [place] [address] Jul, [facility] [address] [facility] [id number] [place] [address] Jul, [facility] [address] [facility] [id number] [place] [address] Jul, [facility] [address] [facility] [id number] [place] [address] Jul, [facility] [id number] [place] [address] Jul, [facility] [id number] [address] Jul, [facility] [id number] [place] [address] Jul, [facility] [id number] [address] Jul, [facility] [id number] [address] Jul, [facility] [id number] [address] Jul, [facility] [id number] [address] Jul, [facility] [address] [id number] [address] Jul, [facility] [id number] [address] Jul, IMMUNIZATIONS No Known Immunizations SOCIAL HISTORY Never Assessed REASON FOR VISIT elevated blood sugars. PLAN OF CARE VITAL SIGNS MEDICATIONS Medication Instructions Dosage Frequency Start Date End Date Duration Status NovoLog Flexpen 100 UNIT/ML Subcutaneous 3 times a day before meals (if bs less than 130 then hold ) 7 units Active RESULTS No Results PROCEDURES No Known [...] in the future. Medical History 05/26/17 noted, custodial has ended and they feel he is [...] Surgical History Left eye retinal eye repair ([facility]) 06/2014 Surgical History amputation, toe-right third toe ([facility]) 2013 Surgical History Right eye retinal eye repair ([facility]) 09/2014 Surgical History heart cath [...]
--- OUTSIDE RECORDS SUMMARY | 2018-06-20 10:43 | XMS REPORT ---
Author Author ARIELLE Thorpe Organization [facility] Address [address] [place] [address] Care Team Providers Care [employer] Operator Name Role Phone ARIELLE Thorpe Unavailable PROBLEMS Type Condition ICD9-CM Code ICC82-OC Code Onset Dates Condition Status SNOMED Code Problem Chronic obstructive pulmonary disease, unspecified COPD type J44.9 Active 00099341 Problem Peripheral vascular disease I73.9 Active 452791556 Problem Type 2 diabetes mellitus with diabetic neuropathy E11.40 Active 23755972 Problem S/P coronary artery stent placement Z95.5 Active 046880299 Problem Bilateral low back pain without sciatica M54.5 Active 996670245 Problem 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 Active 041546612 Problem 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 Active 534669827 Problem Hypercholesterolemia E78.0 Active 54373385 Problem Type 2 diabetes mellitus with diabetic polyneuropathy E11.42 Active 479935268 Problem Obesity (BMI 30.0-34.9) E66.9 Active [id number] Problem Personal history of carotid stenosis Z86.79 Active 805269293 Problem Aphasia R47.01 Active 66005256 Problem Fatigue, unspecified type R53.83 Active 98386300 Problem Uses walker Z99.89 Active 120893532 Problem Other chronic pain G89.29 Active 07273466 Problem Chronic diarrhea K52.9 Active 115857279 Problem Major depressive disorder, single episode, mild F32.0 Active 68468105 Problem Chronic fatigue R53.82 Active 72079279 Problem Pain in left shoulder M25.512 Active 54752064 Problem Chronic pain syndrome G89.4 Active 910729596 Problem Type 2 diabetes mellitus with diabetic retinopathy, macular edema presence unspecified, with unspecified retinopathy severity E11.319 Active 24708916 Problem High risk medication use Z79.899 Active 775317919 Problem Osteomyelitis of right foot, unspecified chronicity M86.9 Active 60665745 Problem Fecal urgency R15.2 Active 44549383 Problem Diabetes type 2, uncontrolled E11.65 Active 448351391 Problem Full incontinence of feces R15.9 Active 674449526130244 Problem Mixed stress and urge urinary incontinence N39.46 Active 248096582 Problem Functional diarrhea K59.1 Active 78755350 Problem Hyperlipidemia, unspecified hyperlipidemia E78.5 Active 93818004 Problem CKD (chronic kidney disease) stage 3, GFR 30-59 ml/min N18.3 Active 963373503 Problem 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 Active 5881722972821 Problem GERD without esophagitis K21.9 Active 201925873 Problem Insulin long-term use Z79.4 Active 854005895 Problem Essential hypertension I10 Active 53365156 Problem Depression F32.9 Active 77386356 Problem CKD (chronic kidney disease), stage 3 (moderate) N18.3 Active 029500003 Problem Type 2 diabetes mellitus with foot ulcer E11.621 Active 723865876 Problem Frequent falls R29.6 Active 345220267 Problem Type 2 diabetes mellitus with diabetic peripheral angiopathy without gangrene E11.51 Active 052834900 Problem Comprehensive diabetic foot examination, type 2 DM, encounter for E11.9 Active 92390018 Problem Mixed hyperlipidemia E78.2 Active 777503623 Problem Chronic kidney disease, unspecified N18.9 Active 542880502 ALLERGIES No Information ENCOUNTERS Encounter Location Date Diagnosis [facility] [address] [facility] [id number] [address] May, 2018 Type 2 diabetes mellitus with diabetic neuropathy E11.40 ; 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 ; Major depressive disorder, single episode, mild F32.0 and Essential hypertension I10 [facility] [address] [id number] [id number] May, [place] [address] [id number] [id number] May, [facility] [address] [id number] [id number] May, [address] [id number] Apr, Other chronic pain G89.29 [facility] [place] [address] [id number] [place] [id number] Apr, [facility] [place] [address] [id number] [place] [phone] Apr, Essential hypertension I10 [facility] [place] [address] [id number] [place] [id number] Mar, Other chronic pain G89.29 [facility] [place] [address] [id number] [place] [id number] Mar, [facility] [place] [address] [id number] [place] [id number] Feb, Other chronic pain G89.29 [facility] [place] [address] [id number] [place] [id number] Feb, Diabetes type 2, uncontrolled E11.65 ; Type 2 diabetes mellitus with diabetic retinopathy, macular edema presence unspecified, with unspecified retinopathy severity E11.319 and Bilateral low back pain without sciatica M54.5 [facility] [place] [address] [id number] [place] [id number] Feb, [facility] [place] [address] [id number] [place] [id number] Feb, Diabetes type 2, uncontrolled E11.65 [facility] [place] [address] [id number] [id number] Feb, Other chronic pain G89.29 [facility] [place] [address] [id number], [place] [id number] Jan, [facility] [place] [address] [id number] [id number] Jan, [facility] [place] [address] [id number] [place] [id number] Jan, [facility] [place] [address] [id number] [place] [id number] Jan, Other chronic pain G89.29 [facility] [place] [address] [id number], [place] [phone] December, Mixed stress and urge urinary incontinence N39.46 [facility] [place] [address] [id number][place] [phone] December, Chronic fatigue R53.82 [facility] [id number], [place] [id number] December, Other chronic pain G89.29 [facility] [id number] [place] [address] [id number] December, Diabetes type 2, uncontrolled E11.65 ; [...] type J44.9 and Other chronic pain G89.29 [facility] [address]00565100[place], [place] [address] December, [address]00565100[place], [place] [id number] December, Medicare annual wellness visit, subsequent Z00.00 ; Type 2 diabetes mellitus with diabetic polyneuropathy E11.42 ; Chronic obstructive pulmonary disease, unspecified COPD type J44.9 ; Depression F32.9 ; Peripheral vascular disease I73.9 ; 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 ; Hypercholesterolemia E78.0 ; GERD without esophagitis K21.9 and Chronic kidney disease, unspecified N18.9 [facility] [address] [id number] [id number] December, Mixed stress and urge urinary incontinence N39.46 ; Full incontinence of feces R15.9 ; Fecal urgency R15.2 ; Functional diarrhea K59.1 and Type 2 diabetes mellitus with diabetic neuropathy E11.40 [facility] [address] [id number], [place] [id number] Nov, Other chronic pain G89.29 [place] [id number] [place] [address] [id number] Oct, [address]00565[address], [place] [id number] Oct, [id number] [place] [address] [id number] Oct, Other chronic pain G89.29 [address] [place] [address] [id number] Sep, Other chronic pain G89.29 [address] [place] [address] [id number] Aug, CKD (chronic kidney disease), stage 3 (moderate) N18.3 ; Anemia, unspecified type D64.9 and Dilated pore of Ly L70.8 [address] [place] [address] [id number] Aug, Other chronic pain G89.29 ; Pain in left shoulder M25.512 ; High risk medication use Z79.899 ; Uses walker Z99.89 ; Diabetes type 2, uncontrolled E11.65 and Depression F32.9 [address] [place] [address] [id number] Aug, Chronic diarrhea K52.9 [address] [place] [address] [id number] 05 Aug, 2017 Chronic diarrhea K52.9 ; [...] Mixed hyperlipidemia E78.2 and Essential hypertension I10 [address], [place] [id number] Aug, [address] [place] [address] [id number] Jul, Diabetes type 2, uncontrolled E11.65 [address] [place] [address] [id number] Jul, Diabetes type 2, uncontrolled E11.65 ; Type 2 diabetes mellitus with diabetic neuropathy E11.40 ; Insulin long-term use Z79.4 and Chronic obstructive pulmonary disease, unspecified COPD type J44.9 [address] [place] [address] [id number] Jun, [address] [place] [address] [id number] Jun, Essential hypertension I10 [address] [place] [address] [id number] Jun, Essential hypertension I10 [address] [place] [address] [id number] Jun, Type 2 diabetes mellitus with diabetic neuropathy E11.40 ; Type 2 diabetes mellitus with diabetic polyneuropathy E11.42 ; S/P coronary artery stent placement Z95.5 ; Obesity (BMI 30.0-34.9) E66.9 ; Mixed hyperlipidemia E78.2 ; Frequent falls R29.6 ; Chronic obstructive pulmonary disease, unspecified COPD type J44.9 ; Essential hypertension I10 ; Insulin long-term use Z79.4 and High risk medication use Z79.899 [address] [place] [address] [id number] May, Diarrhea, unspecified type R19.7 ; Type 2 diabetes mellitus with diabetic neuropathy E11.40 ; Chronic obstructive pulmonary disease, unspecified COPD type J44.9 ; S/P coronary artery stent placement Z95.5 ; High risk medication use Z79.899 ; Essential hypertension I10 ; Encounter for administration of vaccine Z23 and Encounter for immunization Z23 [address] [id number] [place] [id number] May, Chronic obstructive pulmonary disease, unspecified COPD type J44.[id number] [place] [address] [id number] May, Type 2 diabetes mellitus with diabetic polyneuropathy E11.42 ; Encounter for immunization Z23 ; Needs flu shot Z23 ; Comprehensive diabetic foot examination, type 2 DM, encounter for E11.9 and Obesity (BMI 30.0-34.9) E66.9 [address] [place] [address] [id number] May, [address]00565100[place], [place] [id number] Apr, [place] [id number] [place] [address] [id number] Apr, Essential hypertension I10 and Aphasia R47.01 [address] [place] [address] [id number] Apr, [place] [id number] [place] [address] [id number] Apr, Type 2 diabetes mellitus with diabetic neuropathy E11.40 ; Frequent falls R29.6 ; Essential hypertension I10 ; S/P coronary artery stent placement Z95.5 ; High risk medication use Z79.899 ; Hyperlipidemia, unspecified hyperlipidemia E78.5 ; CKD (chronic kidney disease), stage 3 (moderate) N18.3 ; Pain in left shoulder M25.512 and Chronic obstructive pulmonary disease, unspecified COPD type J44.9 [address] [place] [address] [id number] Mar, [id number] [place] [address] [id number] Mar, Type 2 diabetes mellitus with diabetic polyneuropathy E11.42 ; Leg wound, left, initial encounter S81.802A ; Hx of shoulder surgery Z98.890 ; Acute pain of left shoulder M25.512 and Fall, initial encounter W19.XXXA [address] [place] [address] [id number] Feb, Follow-up exam Z09 ; Hx of shoulder surgery Z98.890 ; Acute pain of left shoulder M25.512 ; Essential hypertension I10 and Leg wound, left, initial encounter S81.802A [address] [place] [address] [id number] Feb, [address] [place] [address] [id number] Feb, [address] [place] [address] [id number] Feb, Chronic obstructive pulmonary disease, unspecified COPD type J44.[address] [id number] [id number] Feb, [facility] [id number] [place] [address] [id number] Jan, Generalized weakness R53.1 ; Exertional shortness of breath R06.02 and Fungal rash of trunk B36.9 [facility] [id number] [place] [address] [id number] Jan, [facility] [id number] [place] [address] [id number] Jan, [facility] [id number] [place] [address] [id number] Jan, [facility] [id number] [place] [address] [id number] Jan, [facility] [id number] [place] [address] [id number] December, High risk medication use Z79.899 [facility] [id number] [place] [address] [id number] December, Type 2 diabetes mellitus with diabetic neuropathy E11.40 [facility] [id number] [place] [address] [id number] December, High risk medication use Z79.899 [address] [place] [id number] [place] [address] [id number] Nov, Diabetes type 2, uncontrolled E11.65 [address] [id number] [place] [address] [id number] Nov, Medicare annual wellness visit, initial Z00.00 ; Bilateral low back pain without sciatica M54.5 ; Pain in left shoulder M25.512 ; Chronic pain syndrome G89.4 ; Type 2 diabetes mellitus with diabetic polyneuropathy E11.42 ; High risk medication use Z79.899 and Encounter for immunization Z23 [facility] [id number] [place] [address] [id number] Nov, Type 2 diabetes mellitus with diabetic neuropathy E11.40 ; 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 and CKD (chronic kidney disease), stage 3 (moderate) N18.3 [facility] [id number], [place] [id number] Oct, Type 2 diabetes mellitus with diabetic polyneuropathy E11.42 ; Chronic pain syndrome G89.4 ; Chronic obstructive pulmonary disease, unspecified COPD type J44.9 ; Chronic kidney disease, unspecified N18.9 and Rash R21 [address] [id number] [id number] Oct, Type 2 diabetes mellitus with diabetic neuropathy E11.40 [facility] [id number] [place] [address] [id number] Oct, Rash R21 and Impetigo L01.00 [address] [id number] [place] [address] [id number] Oct, Chronic pain syndrome G89.4 [facility] [id number] [place] [address] [id number] Oct, [facility] [id number] [place] [address] [id number] Sep, Sebaceous cyst L72.3 [facility] [id number] [place] [address] [id number] Sep, Sebaceous cyst L72.3 [facility] [id number] [place] [address] [id number] Sep, 2016 Chronic pain syndrome G89.4 ; Pain in left shoulder M25.512 and Effusion of olecranon bursa, left M25.422 [facility] [address]005[address] [address] Aug, [facility] [id number] [place] [address] [id number] Aug, [facility] [id number] [place] [address] [id number] Aug, Mixed hyperlipidemia E78.2 and Chronic kidney disease, unspecified N18.9 [facility] [id number] [place] [address] [id number] Jul, Type 2 diabetes mellitus with diabetic neuropathy E11.40 ; Essential hypertension I10 and S/P coronary artery stent placement Z95.5 [facility] [id number], [place] [id number] Jul, 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 [facility] [id number] [place] [address] [id number] Jul, Diabetes type 2, uncontrolled E11.65 ; Essential hypertension I10 and 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 [facility] [id number] [place] [address] [id number] Jul, [facility] [id number] [place] [address] [id number] Jul, [facility] [id number] [place] [address], [place] [id number] Jul, [facility] [id number] [place] [address], [place] [id number] Jul, Chronic obstructive pulmonary disease, unspecified COPD type J44.9 [facility] [id number] [place] [address] [id number] Jun, CKD (chronic kidney disease), stage 3 (moderate) N18.3 and Anemia, unspecified type D64.9 [facility] [id number], [place] [id number] Jun, Type 2 diabetes mellitus with diabetic neuropathy E11.40 ; Decreased GFR R94.4 ; CKD (chronic kidney disease), stage 3 (moderate) N18.3 and Decreased hemoglobin R71.0 [place] [id number] [place] [address] [id number] Jun, CKD (chronic kidney disease), stage 3 (moderate) N18.3 and Anemia, unspecified type D64.9 [facility] [id number], [place] [id number] Jun, Type 2 diabetes mellitus with diabetic neuropathy E11.40 ; Decreased GFR R94.4 and CKD (chronic kidney disease), stage 3 (moderate) N18.3 [facility] [id number] [place] [address] [id number] Jun, Type 2 diabetes mellitus with diabetic neuropathy E11.40 and Essential hypertension I10 [facility] [id number] [place] [address] [id number] Jun, [address]00565100[place], [place] [id number] Jun, [address] [place] [id number] [place] [address] [id number] Jun, Type 2 diabetes mellitus with diabetic neuropathy E11.40 ; S/P coronary artery stent placement Z95.5 ; Chronic obstructive pulmonary disease, unspecified COPD type J44.9 ; Essential hypertension I10 ; GERD without esophagitis K21.9 ; Peripheral vascular disease I73.9 ; Mixed hyperlipidemia E78.2 and Hospital discharge follow-up Z09 [address]00565[address], [place] [id number] Jun, [id number] [place] [address] [id number] May, Depression F32.9 and Hyperlipidemia, unspecified hyperlipidemia E78.5 [facility] [address]005[address] [address] May, [address] [place] [address] [id number] May, [address] [place] [address] [id number] May, Essential hypertension I10 ; Chronic pain syndrome G89.4 ; Pain in left shoulder M25.512 ; High risk medication use Z79.899 ; Chronic obstructive pulmonary disease, unspecified COPD type J44.9 ; S/P coronary artery stent placement Z95.5 ; Personal history of carotid stenosis Z86.79 ; Hyperlipidemia, unspecified hyperlipidemia E78.5 ; Decreased GFR R94.4 and Type 2 diabetes mellitus with diabetic polyneuropathy E11.42 [address]00565100[place], [place] [id number] May, Hemoglobin decreased R71.0 and Decreased GFR R94.4 [address] [place] [address] [id number] May, Hemoglobin decreased R71.0 and Decreased GFR R94.4 [address] [place] [address] [id number] May, [id number] [id number] May, [facility] [id number] [place] [address] [id number] Apr, [facility] [id number] [place] [address] [id number] Apr, Type 2 diabetes mellitus with foot [...] unspecified hyperlipidemia E78.5 and Essential hypertension I10 [facility] [id number] [place] [address] [id number] Apr, [facility] [id number] [place] [address] [id number] Mar, [facility] [id number] [place] [address] [id number] Mar, [facility] [id number] [place] [address] Mar, [facility] [id number] [place] [address] [id number] Feb, [facility] [id number] [place] [address] [id number] Feb, [facility] [id number] [place] [address] [id number] Feb, [facility] [id number] [place] [address] [id number] Jan, Type 2 diabetes mellitus with diabetic polyneuropathy E11.42 ; Hypercholesterolemia E78.0 ; Chronic pain syndrome G89.4 ; Pain in left shoulder M25.512 and High risk medication use Z79.899 [facility] [id number] [place] [address] [id number] Jan, [id number] [place] [address] [id number] Jan, [facility] [id number], [place] [id number] December, [facility] [id number] [place] [address] [id number] December, [facility] [id number] [place] [address] 18060 2546 December, Diabetes type 2, uncontrolled E11.65 ; Type 2 diabetes mellitus with diabetic neuropathy E11.40 ; Peripheral vascular disease I73.9 ; 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 and 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 [facility] [id number], [place] [id number] Nov, [facility] [id number] [place] [address] [id number] Nov, [facility] [id number] [place] [address] [id number] Nov, [facility] [id number] [place] [address] [id number] Nov, Right hip pain M25.551 [facility] [id number] [place] [address] 21428- 47[address] Nov, [facility] [id number] [place] [address] [phone] Nov, [facility] [id number] [place] [address] [id number] Nov, Diabetes with neurological manifestations, type II or unspecified type, 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.60 [facility] [address] [id number], [place] [id number] Nov, [facility] [id number], [place] [id number] Nov, [facility] [id number] [place] [address] [id number] Oct, Diabetes type 2, uncontrolled E11.65 ; Type 2 diabetes mellitus with diabetic neuropathy, unspecified E11.40 and Low back pain M54.5 [facility] [address] [id number], [place] [id number] Oct, [facility] [place] [address] [id number], [place] [id number] Oct, [facility] [place] [address] [id number], [place] [id number] Oct, [facility] [place] [address] [id number], [place] [id number] Sep, [facility] [place] [id number], [place] [id number] Sep, [facility] [address] [id number], [place] [address] Sep, [facility] [place] [id number] [place] [address] [id number] Sep, [facility] [place] [address] [id number], [place] [id number] Sep, [facility] [id number] [place] [address] [id number] Aug, 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 [facility] [address] [id number], [place] [phone] Aug, [facility] [id number], [place] [id number] Aug, Allergic rhinitis due to pollen J30.1 [facility] [address] [id number][place] [id number] Jul, [facility] [id number], [place] [id number] Jul, [facility] [id number], [place] [id number] Jul, [facility] [address] [facility] [id number], [place] [id number] Jun, [facility] [id number], [place] 675878174 Jun, Thumb tendonitis M77.8 and Ringing in ear, bilateral H93.13 [facility] [place] [address] [id number], [place] [id number] Jun, [facility] [address]00565100[place], [place] [id number] May, [place] [address] [id number]- 8337 May, [place] [address] [place] [id number] [place] [address] 43944834- 8973 May, Pre-op evaluation Z01.818 ; Encounter for immunization Z23 ; Type 2 diabetes mellitus with diabetic peripheral angiopathy without gangrene E11.51 ; Insulin long-term use Z79.4 ; Type 2 diabetes mellitus with foot ulcer E11.621 ; Peripheral vascular disease I73.9 ; 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 ; S/P coronary artery stent placement Z95.5 ; Osteomyelitis of right foot, unspecified chronicity M86.9 and Chronic obstructive pulmonary disease, unspecified COPD type J44.9 [place] [address] [id number] [place] [address] [id number]- 0588 May, [place] [id number] [place] [address] [id number] May, [address] [id number] May, Diabetes type 2, uncontrolled E11.65 ; Encounter for immunization Z23 ; Osteopenia M85.80 and Allergic rhinitis due to pollen J30.1 [place] [id number] [place] [address] [phone] May, Lumbago 724.2 [place] [address] [place] [id number] [place] [address] [id number] Apr, [place] [id number] [place] [address] [phone] Apr, [place] [id number] [place] [address] [phone] Apr, [place] [id number] [place] [address] [phone] Apr, [place] [address] [id number] [place] [address] 04773- 2546 Mar, [facility] [address] [id number] [place] [id number] Mar, [facility] [address] [id number] [place] [id number] Mar, [facility] [address] [id number] [place] [id number] Mar, [facility] [place] [address] [id number] [place] [id number] Mar, [facility] [id number], [place] [address] 7226 Mar, [facility] [place] [address] [id number] [place] [id number] Mar, [facility] [place] [address] [id number] [place] [id number] Mar, Diabetes with neurological manifestations, type II or unspecified type, 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.60 and Severe obesity (BMI 35.0-35.9 with comorbidity) 278.01 [facility] [place] [address] [id number] [place] [id number] Mar, [facility] [id number], [place] [address]- 0761 Mar, [facility] [id number], [place] [address]- 0266 Feb, [facility] [place] [address] [id number], [place] [id number] Feb, [facility] [place] [address] [id number] [place] [id number] Feb, [facility] [place] [address] [id number] [place] [id number] Feb, Diabetes with neurological manifestations, type II or unspecified type, 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.60 [facility] [place] [address] [id number] [place] [id number] Feb, [facility] [id number], [place] [address]- [address] Feb, [facility] [address] [id number], [place] [id number] Feb, [facility] [address] [place] [id number], [place] [id number] Feb, Follow up V67.9 ; Diabetes with neurological manifestations, type II or unspecified type, 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.60 and Congestive heart failure 428.0 [facility] [place] [id number], [place] [id number] Jan, [facility] [id number] [place] [address] [id number] Jan, [facility] [id number], [place] [id number] Jan, [facility] [address] [place] [id number] [place] [address] [id number] December, Otitis media with effusion 381.4 ; Left arm numbness 782.0 and Osteoporosis 733.00 [facility] [id number], [place] [id number] December, [facility] [id number], [place] [id number] Nov, [facility] [id number], [place] 946371803 Nov, Serous otitis media 381.4 and Lumbago 724.2 [facility] [id number], [place] [address]- 6021 Nov, [facility] [id number], [place] [address]- 9816 Nov, [facility] [id number], [place] [id number] Oct, [facility] [id number] [place] [address] 605[address]- 2847 Oct, [facility] [id number], [place] [id number] Oct, [facility] [address] [id number], [place] [address]- 6945 Oct, [facility] [address] [place] [id number], [place] [id number] Oct, [facility] [place] [facility] [address] [facility] [id number], [place] [address]- 6329 Oct, [facility] [place] [facility] [address] [facility] [id number], [place] [address]- 6430 Sep, [facility] [place] [facility] [address] [facility] [id number], [place] [address]- 8731 Sep, [facility] [address] [facility] [id number], [place] 779111873 Sep, [facility] [place] [facility] [id number], [place] [address]- 1775 Sep, [facility] [address] [place] [id number], [place] [id number] Aug, [facility] [place] [facility] [id number], [place] [address]- 6499 Aug, [facility] [address] [address] [id number], [place] [id number] Aug, [facility] [place] [facility] [id number], [place] [address]- 6682 Aug, [facility] [id number], [place] [id number] Jul, [facility] [place] [facility] [address] [place] [address] [id number], [place] [address]- 1505 Jul, [facility] [address] [facility] [id number], [place] [id number] Jul, [facility] [place] [facility] [address] [facility] [id number], [place] [address]- 0709 Jul, [facility] [address] [facility] [id number], [place] [id number] Jul, [facility] [place] [facility] [address] [facility] [id number], [place] [address]- 9504 Jul, [facility] [address] [place] [id number], [place] 587937497 Jun, [facility] [place] [facility] [address] [facility] [id number], [place] [address]- 9126 Jun, [facility] [address] [facility] [id number], [place] [id number] May, [facility] [place] [facility] [address] [facility] [id number], [place] [address]- 4496 May, [facility] [address] [facility] [id number], [place] [id number] May, [facility] [place] [facility] [address] [facility] [id number], [place] [address]- 5614 May, [facility] [address] [facility] [id number] [place] [address] [id number] May, [facility] [place] [facility] [id number], [place] [address]- 4796 May, [facility] [id number], [place] [id number] May, [facility] [address] [facility] [id number], [place] [id number] May, [facility] [place] [facility] [id number], [place] [address]- 5621 May, [facility] [place] [facility] [id number], [place] [address]- 3234 May, [facility] [address] [place] [id number], [place] [id number] May, [facility] [place] [facility] [id number], [place] [address]- 7970 May, [facility] [place] [facility] [address] [facility] [id number], [place] [address]- 7237 Apr, [facility] [address] [facility] [id number], [place] 926802336 Apr, [facility] [place] [facility] [address] [facility] [id number], [place] [address]- 0860 Apr, [facility] [address] [facility] [id number], [place] [id number] Apr, [facility] [address] [id number] [place] [id number] Apr, 2013 [facility] [place] [facility] [address] [facility] [id number] [place] [address]- 2773 Apr, [facility] [place] [facility] [address] [facility] [id number] [place] [address]- 4723 Apr, 2013 [facility] [address] [facility] [id number] [place] [id number] Apr, [facility] [place] [facility] [address] [facility] [id number] [place] [address]- 9854 Apr, [facility] [address] [id number] [place] [id number] Apr, [facility] [place] [facility] [address] [facility] [id number], [place] [address]- 4526 Apr, [facility] [address] [facility] [id number], [place] [id number] Apr, [facility] [place] [facility] [address] [place] [address] [id number], [place] [address]- 8824 Apr, [facility] [address] [facility] [id number], [place] 868329090 Apr, [facility] [place] [facility] [address] [place] [id number], [place] [address]- 4660 Apr, [facility] [address] [facility] [id number], [place] 246987350 Apr, [facility] [place] [facility] [address] [facility] [id number], [place] [address]- 3162 Apr, [facility] [address] [facility] [id number], [place] 883810081 Apr, [facility] [place] [facility] [address] [facility] [id number], [place] [address]- 1820 Apr, [facility] [address] [facility] [id number], [place] 570671476 Mar, [facility] [place] [facility] [address] [facility] [id number], [place] [address]- 6103 Mar, [facility] [address] [id number] [place] [id number] Mar, [facility] [address] [id number] [place] [id number] Mar, [facility] [place] [facility] [address] [id number] [place] [address]- 5398 Mar, [facility] [place] [facility] [address] [facility] [id number] [place] [address]- 5171 Mar, [facility] [address] [id number] [place] 086148079 Mar, [facility] [place] [facility] [address] [facility] [id number] [place] [address]- 5644 Mar, [facility] [address] [id number] [place] [id number] Mar, [facility] [place] [facility] [address] [facility] [id number], [place] [address]- 3946 Mar, [facility] [address] [facility] [id number] [place] [id number] Mar, [facility] [place] [facility] [address] [facility] [id number], [place] [address]- 3255 Mar, [facility] [address] [facility] [id number] [place] [id number] Mar, [facility] [place] [facility] [address] [facility] [id number], [place] [address]- 9893 Mar, [facility] [address] [id number] [place] 906392241 Mar, [facility] [place] [facility] [address] [facility] [id number], [place] [address]- 2131 Mar, [facility] [address] [id number] [place] [id number] Mar, [facility] [place] [facility] [address] [facility] [id number], [place] [address]- 2485 Mar, [facility] [address] [id number] [place] [id number] Mar, [facility] [place] [facility] [address] [id number] [place] [address]- 2461 Mar, [facility] [address] [id number] [place] [id number] Feb, [facility] [place] [facility] [address] [id number] [place] [address]- 1132 Feb, [facility] [address] [id number] [place] [id number] Feb, [facility] [place] [facility] [address] [id number] [place] [address]- 7524 Feb, [facility] [address] [id number] [place] [id number] Feb, [facility] [place] [facility] [address] [facility] [id number] [place] [address]- 6083 Feb, [facility] [address] [id number] [place] [id number] Feb, [facility] [place] [facility] [address] [facility] [id number] [place] [address]- 9143 Feb, [facility] [address] [id number] [place] [id number] Feb, [facility] [place] [facility] [address] [facility] [id number] [place] [address]- 2602 Feb, [facility] [address] [id number] [place] [id number] Feb, [facility] [place] [facility] [address] [facility] [id number] [place] [address]- 6266 Feb, [facility] [address] [id number] [place] [id number] Feb, [facility] [place] [facility] [address] [facility] [id number] [place] [address]- 8207 Feb, [facility] [address] [id number] [place] [id number] Feb, [facility] [place] [facility] [address] [facility] [id number] [place] [address]- 3713 Feb, [facility] [address] [id number] [place] [id number] Feb, [facility] [place] [facility] [address] [id number] [place] [address]- 5096 Feb, [facility] [address] [id number] [place] 619462918 Feb, [facility] [address] [id number] [place] 018063887 Feb, [facility] [place] [facility] [address] [id number] [place] [address]- 8388 Feb, [facility] [place] [facility] [address] [id number] [place] [address]- 7153 Feb, [facility] [address] [id number] [place] [id number] Feb, [facility] [place] [facility] [address] [facility] [id number] [place] [address]- 4966 Feb, [facility] [address] [id number] [place] [id number] Feb, [facility] [place] [facility] [address] [facility] [id number] [place] [address]- 1834 Feb, [facility] [address] [id number] [place] 019140811 Feb, [facility] [place] [facility] [address] [id number] [place] [address]- 4460 Feb, [facility] [address] [id number] [place] 501512540 Jan, [facility] [place] [facility] [address] [id number] [place] [address]- 7879 Jan, [facility] [place] [facility] [address] [facility] [id number] [place] [address]- 6553 Jan, [facility] [place] [facility] [address] [id number] [place] [address]- 9193 Jan, [facility] [place] [facility] [address] [facility] [id number], [place] [address]- 7045 Jan, [facility] [place] [facility] [address] [id number], [place] [address]- 3500 Jan, [facility] [address] [facility] [id number], [place] 464681368 Jan, [facility] [place] [facility] [address] [facility] [id number], [place] [address]- 6312 Jan, [facility] [place] [facility] [address] [facility] [id number], [place] [address]- 9471 Jan, [facility] [place] [facility] [address] [id number], [place] [address]- 1484 Jan, [facility] [address] [facility] [id number], [place] 742248997 Jan, [facility] [address] [facility] [id number], [place] [id number] Jan, [facility] [place] [facility] [address] [facility] [id number], [place] [address]- 9797 Jan, [facility] [place] [facility] [address] [facility] [id number], [place] [address]- 4936 Jan, [facility] [address] [facility] [id number], [place] 105969238 Jan, [facility] [address] [facility] [id number], [place] 896607757 Jan, [facility] [place] [facility] [address] [facility] [id number], [place] [address]- 9986 Jan, [facility] [place] [facility] [address] [facility] [id number], [place] [address]- 7324 Jan, [facility] [place] [facility] [address] [facility] [id number], [place] [address]- 4637 Jan, [facility] [address] [facility] [id number], [place] [id number] December, [facility] [place] [facility] [address] [facility] [id number], [place] [address]- 0009 December, [facility] [place] [facility] [address] [facility] [id number], [place] [address]- 2352 December, [facility] [address] [facility] [id number] [place] 994679116 December, [facility] [place] [facility] [address] [facility] [id number] [place] [address]- 3996 December, [facility] [address] [facility] [id number] [place] 712257010 December, [facility] [place] [facility] [address] [facility] [id number] [place] [address]- 0716 December, [facility] [address] [facility] [id number] [place] [id number] December, [facility] [place] [facility] [address] [facility] [id number] [place] [address]- 6666 December, [facility] [address] [id number], [place] 652563613 Nov, [facility] [place] [facility] [address] [facility] [id number], [place] [address]- 3603 Nov, [facility] [address] [facility] [id number], [place] [id number] Nov, [facility] [place] [facility] [address] [id number], [place] [address]- 0110 Nov, [facility] [place] [facility] [address] [facility] [id number], [place] [address]- 8092 Nov, [facility] [place] [facility] [address] [facility] [id number], [place] [address]- 0163 Nov, [facility] [place] [facility] [address] [facility] [id number] [place] [address]- 1407 Oct, [facility] [address] [facility] [id number], [place] 284527113 Oct, [facility] [place] [facility] [address] [facility] [id number] [place] [address]- 9419 Oct, [facility] [address] [facility] [id number], [place] 811388104 Oct, [facility] [address] [id number] [place] [address]- 1556 Oct, [facility] [address] [id number], [place] 560565279 Sep, [facility] [address] [facility] [id number], [place] [address]- 0536 Sep, [facility] [address] [id number], [place] 782838145 Aug, [facility] [address] [id number] [place] [address]- 1432 Aug, [facility] [address] [facility] [id number], [place] 793315178 Aug, [facility] [id number], [place] [address]- 0137 Aug, [facility] [place] [facility] [address]00565100[place], [place] [address]- 0573 Aug, [facility] [address] [facility] [id number], [place] 839331107 Aug, [facility] [place] [facility] [address] [facility] [id number], [place] [address]- 2775 Aug, [facility] [address] [id number], [place] [address]- 2025 Aug, [facility] [address] [facility] [id number], [place] 065842881 Aug, [facility] [place] [facility] [address] [facility] [id number], [place] [address]- 0280 Aug, [facility] [address] [facility] [id number], [place] 341650453 Jul, [facility] [place] [facility] [address] [facility] [id number], [place] [address]- 9056 Jul, [facility] [address] [facility] [id number] [place] [id number] Jul, [facility] [place] [facility] [address] [facility] [id number], [place] [address]- 2886 Jul, [facility] [address] [id number] [place] [id number] Jul, [facility] [address] [facility] [id number], [place] [address]- 5421 Jul, [facility] [address] [id number] [place] [id number] Jul, [facility] [address] [facility] [id number], [place] [address] Jul, [facility] [address] [id number] [place] [id number] Jun, [facility] [address] [facility] [id number], [place] [address] Jun, [facility] [address] [id number][place] [id number] Jun, [facility] [id number], [place] [address] Jun, [facility] [address] [id number], [place] [address] Jun, [facility] [id number], [place] [address] Jun, [facility] [address] [id number] [place] [id number] Apr, [facility] [address] [id number] [place] [id number] Mar, [facility] [address] [id number] [place] [id number] Mar, [facility] [address] [id number] [place] [id number] Feb, [facility] [address] [id number] [place] [id number] Feb, [facility] [address] [id number] [place] [id number] Feb, [facility] [address] [id number] [place] [id number] December, [facility] [address] [id number] [place] [id number] December, [facility] [address] [facility] [id number], [place] [address] December, [facility] [address] [id number] [place] [id number] December, [facility] [address] [id number] [place] [id number] December, [facility] [address] [id number] [place] [id number] Nov, [facility] [address] [id number] [place] [id number] Nov, [facility] [address] [id number] [place] [id number] Nov, [facility] [address] [id number] [place] [id number] Oct, [facility] [address] [id number] [place] [id number] Sep, [facility] [address] [id number] [place] [id number] Aug, [facility] [address] [facility] [id number], [place] [address] Aug, [facility] [address] [id number] [place] [id number] Aug, [facility] [address] [id number][place] [id number] Jul, [facility] [address] [facility] [id number], [place] [address] Jul, [facility] [address] [id number][place] [id number] Jul, [facility] [address] [facility] [id number], [place] Jul, [facility] [address] [id number][place] [id number] Jun, [facility] [id number], [place] [address] Jun, [facility] [address] [id number] [place] [id number] May, [facility] [address] [facility] [id number], [place] [address] May, [facility] [address] [id number] [place] [id number] May, [facility] [address] [facility] [id number], [place] [address] May, [facility] [address] [id number] [place] [id number] Apr, [facility] [address] [id number] [place] [id number] Apr, [facility] [address] [id number] [place] [id number] Mar, [facility] [address] [id number] [place] [id number] Mar, [facility] [address] [id number] [place] [id number] Feb, [facility] [address] [id number] [place] [id number] Feb, [facility] [address] [id number] [place] [id number] Jan, [facility] [address] [id number] [place] [id number] Jan, [facility] [address] [id number] [place] [id number] Jan, [facility] [address] [id number] [place] [id number] Jan, [facility] [address] [id number] [place] [id number] December, [facility] [address] [id number] [place] [id number] December, [facility] [address] [facility] [id number], [place] [address] Nov, [facility] [address] [id number] [place] [id number] Nov, [facility] [address] [id number] [place] [id number] Nov, [facility] [address] [id number] [place] [id number] Nov, [facility] [address] [id number] [place] [id number] Nov, [facility] [address] [facility] [id number] [place] [address] Oct, [facility] [address] [facility] [id number] [place] [address] Oct, [facility] [address] [id number] [place] [id number] Oct, [facility] [address] [id number] [place] [id number] Oct, [facility] [address] [id number] [place] [id number] Oct, [facility] [address] [id number] [place] [id number] Oct, [facility] [facility] [address] [id number] [place] [id number] Oct, [facility] [address] [id number] [place] [id number] Oct, [facility] [address] [id number] [place] [id number] Oct, [facility] [address] [facility] [id number], [place] [address] Oct, [facility] [address] [id number] [place] [id number] Sep, [facility] [address] [id number] [place] [id number] Sep, [facility] [address] [id number] [place] [id number] Aug, [facility] [address] [id number] [place] [id number] Aug, [facility] [address] [facility] [id number], [place] [address] Jul, [facility] [address] [facility] [id number], [place] [address] Jul, [facility] [address] [facility] [id number], [place] [address] Jul, [facility] [address] [facility] [id number] [place] [address] Jul, [facility] [address] [facility] [id number], [place] [address] Jul, [facility] [address] [facility] [id number] [place] [address] Jul, [facility] [id number], [place] [address] Jul, [facility] [id number], [place] [address] Jul, [facility] [id number], [place] [address] Jul, [facility] [id number], [place] [address] Jul, [facility] [id number], [place] [address] Jul, [facility] [id number], [place] [address] Jul, [facility] [address] [id number], [place] [address] Jul, [facility] [id number], [place] [address] Jul, IMMUNIZATIONS No Known Immunizations SOCIAL HISTORY [...] artery (Natan) 10/2011 Surgical History cataract-lens implants-bilateral (Opolis) 05/2014 [facility]2014 Surgical History amputation, toe-right third toe (Nisreen) 2013 Surgical History [facility] 09[facility]2014 Surgical History heart cath with stent [...]
--- OUTSIDE RECORDS SUMMARY | 2018-06-20 10:44 | XMS REPORT ---
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 Name Role Phone ARIELLE DE DIOS Unavailable PROBLEMS Type Condition ICD9-CM Code GHC13-ZK Code Onset Dates Condition Status SNOMED Code Problem Peripheral vascular disease I73.9 Active 833455043 Problem Coronary artery disease involving [place] coronary artery of [place]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 Active 6783164608240 Problem S/P coronary artery stent placement Z95.5 Active 066286456 Problem Chronic obstructive pulmonary disease, unspecified COPD type J44.9 Active 45294993 Problem Type 2 diabetes mellitus with diabetic neuropathy E11.40 Active 23517370 Problem Bilateral low back pain without sciatica M54.5 Active 045384183 Problem 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 Active 527797853 Problem 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 Active 319543054 Problem Hypercholesterolemia E78.0 Active 21132964 Problem Comprehensive diabetic foot examination, type 2 DM, encounter for E11.9 Active 00492709 Problem Type 2 diabetes mellitus with diabetic polyneuropathy E11.42 Active 631454404 Problem Obesity (BMI 30.0-34.9) E66.9 Active 056049435031713 Problem Personal history of carotid stenosis Z86.79 Active 810513415 Problem Aphasia R47.01 Active 14161111 Problem Chronic diarrhea K52.9 Active 780665223 Problem Uses walker Z99.89 Active 806899427 Problem Chronic fatigue R53.82 Active 73243858 Problem Mixed stress and urge urinary incontinence N39.46 Active 174593576 Problem Chronic pain syndrome G89.4 Active 721500321 Problem High risk medication use Z79.899 Active 902313474 Problem Osteomyelitis of right foot, unspecified chronicity M86.9 Active 82960022 Problem Fatigue, unspecified type R53.83 Active 51868950 Problem Diabetes type 2, uncontrolled E11.65 Active 229865096 Problem Full incontinence of feces R15.9 Active 299213234006558 Problem Other chronic pain G89.29 Active 35237849 Problem Functional diarrhea K59.1 Active 61202438 Problem Fecal urgency R15.2 Active 59114881 Problem Depression F32.9 Active 55484035 Problem CKD (chronic kidney disease), stage 3 (moderate) N18.3 Active 495486482 Problem Hyperlipidemia, unspecified hyperlipidemia E78.5 Active 28893645 Problem CKD (chronic kidney disease) stage 3, GFR 30-59 ml/min N18.3 Active 512486134 Problem Type 2 diabetes mellitus with diabetic peripheral angiopathy without gangrene E11.51 Active 653911193 Problem Pain in left shoulder M25.512 Active 13171084 Problem Insulin long-term use Z79.4 Active 437081764 Problem Essential hypertension I10 Active 19945347 Problem Type 2 diabetes mellitus with diabetic retinopathy, macular edema presence unspecified, with unspecified retinopathy severity E11.319 Active 02222022 Problem Chronic kidney disease, unspecified N18.9 Active 219216247 Problem Type 2 diabetes mellitus with foot ulcer E11.621 Active 955417887 Problem Frequent falls R29.6 Active 157494270 Problem GERD without esophagitis K21.9 Active 758257433 Problem Mixed hyperlipidemia E78.2 Active 226166412 ALLERGIES No Information ENCOUNTERS Encounter Location Date Diagnosis [facility] [address] [facility] [id number] [place] [address] [id number] Apr, Other chronic pain G89.29 [facility] [address] [id number] [place] [id number] Apr, [facility] [address] [id number] [id number] Apr, Essential hypertension I10 [facility] [id number] [place] [address] [id number] Mar, Other chronic pain G89.29 [facility] [address] [id number] [id number] Mar, [facility] [address] [id number][place] [id number] Feb, Other chronic pain G89.29 [facility] [id number] [place] [address] [id number] Feb, Diabetes type 2, uncontrolled E11.65 ; Type 2 diabetes mellitus with diabetic retinopathy, macular edema presence unspecified, with unspecified retinopathy severity E11.319 and Bilateral low back pain without sciatica M54.5 [facility] [id number] [place] [address] [id number] Feb, [facility] [id number] [place] [address] [id number] Feb, Diabetes type 2, uncontrolled E11.65 [facility] [id number] [place] [address] [id number] Feb, Other chronic pain G89.29 [facility] [id number] [place] [address] [id number] Jan, [facility] [id number] [place] [address] [id number] Jan, [facility] [id number] [place] [address] [id number] Jan, [facility] [id number] [place] [address] [id number] Jan, Other chronic pain G89.29 [facility] [id number] [place] [address] [id number] December, Mixed stress and urge urinary incontinence N39.46 [facility] [id number] [place] [address] [id number] December, Chronic fatigue R53.82 [facility] [id number] [place] [address] [id number] December, Other chronic pain G89.29 [facility] [id number] [place] [address] [id number] December, Diabetes type 2, uncontrolled E11.65 ; [...] type J44.9 and Other chronic pain G89.29 [facility] [address] [address] December, [place] [id number] [place] [address] [id number] December, Medicare annual wellness visit, subsequent Z00.00 ; Type 2 diabetes mellitus with diabetic polyneuropathy E11.42 ; Chronic obstructive pulmonary disease, unspecified COPD type J44.9 ; Depression F32.9 ; Peripheral vascular disease I73.9 ; Coronary artery disease involving [place] coronary artery of [place]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 ; Hypercholesterolemia E78.0 ; GERD without esophagitis K21.9 and Chronic kidney disease, unspecified N18.9 [place] [id number] [place] [address] [id number] December, Mixed stress and urge urinary incontinence N39.46 ; Full incontinence of feces R15.9 ; Fecal urgency R15.2 ; Functional diarrhea K59.1 and Type 2 diabetes mellitus with diabetic neuropathy E11.40 [address] [place] [address] [id number] Nov, Other chronic pain G89.29 [place] [id number] [place] [address] [id number] Oct, [place] [id number] [place] [address] [id number] Oct, [place] [address] [place] [address] [id number] Oct, Other chronic pain G89.29 [place] [id number] [place] [address] [id number] Sep, Other chronic pain G89.29 [place] [id number] [place] [address] [id number] Aug, CKD (chronic kidney disease), stage 3 (moderate) N18.3 ; Anemia, unspecified type D64.9 and Dilated pore of Ly L70.8 [place] [id number] [place] [address] [id number] Aug, Other chronic pain G89.29 ; Pain in left shoulder M25.512 ; High risk medication use Z79.899 ; Uses walker Z99.89 ; Diabetes type 2, uncontrolled E11.65 and Depression F32.9 [facility] [id number] [place] [address] [id number] Aug, Chronic diarrhea K52.9 [place] [id number] [place] [address] [id number] Aug, Chronic diarrhea K52.9 ; Type 2 [...] E78.2 and Essential hypertension I10 [place] [id number] [place] [address] [id number] Aug, [place] [address] [place] [address] [id number] Jul, Diabetes type 2, uncontrolled E11.65 [place] [address] [place] [address] [id number] Jul, Diabetes type 2, uncontrolled E11.65 ; Type 2 diabetes mellitus with diabetic neuropathy E11.40 ; Insulin long-term use Z79.4 and Chronic obstructive pulmonary disease, unspecified COPD type J44.9 [address] [place] [address] [id number] Jun, [address] [place] [address] [id number] Jun, Essential hypertension I10 [place] [id number] [place] [address] [id number] Jun, Essential hypertension I10 [place] [id number] [place] [address] [id number] Jun, Type 2 diabetes mellitus with diabetic neuropathy E11.40 ; Type 2 diabetes mellitus with diabetic polyneuropathy E11.42 ; S/P coronary artery stent placement Z95.5 ; Obesity (BMI 30.0-34.9) E66.9 ; Mixed hyperlipidemia E78.2 ; Frequent falls R29.6 ; Chronic obstructive pulmonary disease, unspecified COPD type J44.9 ; Essential hypertension I10 ; Insulin long-term use Z79.4 and High risk medication use Z79.899 [address] [place] [address] [id number] May, Diarrhea, unspecified type R19.7 ; Type 2 diabetes mellitus with diabetic neuropathy E11.40 ; Chronic obstructive pulmonary disease, unspecified COPD type J44.9 ; S/P coronary artery stent placement Z95.5 ; High risk medication use Z79.899 ; Essential hypertension I10 ; Encounter for administration of vaccine Z23 and Encounter for immunization Z23 [address] [id number] [place] [id number] May, Chronic obstructive pulmonary disease, unspecified COPD type J44.9 [address] [place] [address] [id number] May, Type 2 diabetes mellitus with diabetic polyneuropathy E11.42 ; Encounter for immunization Z23 ; Needs flu shot Z23 ; Comprehensive diabetic foot examination, type 2 DM, encounter for E11.9 and Obesity (BMI 30.0-34.9) E66.9 [address] [place] [address] [id number] May, [address] [place] [address] [id number] Apr, [place] [id number] [place] [address] [id number] Apr, Essential hypertension I10 and Aphasia R47.01 [place] [id number] [place] [address] [id number] Apr, [place] [address] [place] [address] [id number] Apr, Type 2 diabetes mellitus with diabetic neuropathy E11.40 ; Frequent falls R29.6 ; Essential hypertension I10 ; S/P coronary artery stent placement Z95.5 ; High risk medication use Z79.899 ; Hyperlipidemia, unspecified hyperlipidemia E78.5 ; CKD (chronic kidney disease), stage 3 (moderate) N18.3 ; Pain in left shoulder M25.512 and Chronic obstructive pulmonary disease, unspecified COPD type J44.9 [facility] [id number] [place] [address] [id number] Mar, [facility] [id number] [place] [address] [id number] Mar, Type 2 diabetes mellitus with diabetic polyneuropathy E11.42 ; Leg wound, left, initial encounter S81.802A ; Hx of shoulder surgery Z98.890 ; Acute pain of left shoulder M25.512 and Fall, initial encounter W19.XXXA [facility] [address] [id number] Feb, Follow-up exam Z09 ; Hx of shoulder surgery Z98.890 ; Acute pain of left shoulder M25.512 ; Essential hypertension I10 and Leg wound, left, initial encounter S81.802A [facility] [id number] [place] [address] [id number] Feb, [facility] [id number] [place] [address] [id number] Feb, [facility] [id number] [place] [address] [id number] Feb, Chronic obstructive pulmonary disease, unspecified COPD type J44.9 [facility] [id number] [place] [address] [id number] Feb, [facility] [id number] [place] [address] [id number] Jan, Generalized weakness R53.1 ; Exertional shortness of breath R06.02 and Fungal rash of trunk B36.9 [facility] [id number] [place] [address] [id number] Jan, [facility] [id number] [place] [address] [id number] Jan, [facility] [id number] [place] [address] [id number] Jan, [facility] [id number] [place] [address] [id number] Jan, [address] [id number], [place] [id number] December, High risk medication use Z79.899 [address] [id number] December, Type 2 diabetes mellitus with diabetic neuropathy E11.[address] [id number], [place] [id number] December, High risk medication use Z79.[address] [id number], [place] [id number] Nov, Diabetes type 2, uncontrolled E11.65 [address] [place] [address] [id number] Nov, Medicare annual wellness visit, initial Z00.00 ; Bilateral low back pain without sciatica M54.5 ; Pain in left shoulder M25.512 ; Chronic pain syndrome G89.4 ; Type 2 diabetes mellitus with diabetic polyneuropathy E11.42 ; High risk medication use Z79.899 and Encounter for immunization Z23 [address] [id number] Nov, Type 2 diabetes mellitus with diabetic neuropathy E11.40 ; Coronary artery disease involving [place] coronary artery of [place]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 and CKD (chronic kidney disease), stage 3 (moderate) N18.[address] [id number], [place] [id number] Oct, Type 2 diabetes mellitus with diabetic polyneuropathy E11.42 ; Chronic pain syndrome G89.4 ; Chronic obstructive pulmonary disease, unspecified COPD type J44.9 ; Chronic kidney disease, unspecified N18.9 and Rash R21 [place] [address] [facility] [address] [id number] [place] [id number] Oct, Type 2 diabetes mellitus with diabetic neuropathy E11.[address] [id number], [place] [id number] Oct, Rash R21 and Impetigo L01.[address] [id number], [place] [id number] Oct, Chronic pain syndrome G89.4 [facility] [id number], [place] [id number] Oct, [facility] [id number] [place] [address] [id number] Sep, Sebaceous cyst L72.3 [facility] [id number], [place] [id number] Sep, Sebaceous cyst L72.3 [facility] [id number] [place] [address] [id number] Sep, Chronic pain syndrome G89.4 ; Pain in left shoulder M25.512 and Effusion of olecranon bursa, left M25.422 [facility] [address] [id number] [address] Aug, [facility] [id number] [place] [address] [id number] Aug, [facility] [id number] [place] [address] [id number] Aug, Mixed hyperlipidemia E78.2 and Chronic kidney disease, unspecified N18.9 [facility] [id number] [place] [address] [id number] Jul, Type 2 diabetes mellitus with diabetic neuropathy E11.40 ; Essential hypertension I10 and S/P coronary artery stent placement Z95.5 [facility] [id number] [place] [address] [id number] Jul, 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 [facility] [id number] [place] [address] [id number] Jul, Diabetes type 2, uncontrolled E11.65 ; Essential hypertension I10 and 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 [place] [id number] [place] [address] [id number] Jul, [facility] [id number] [place] [address] [id number] Jul, [facility] [id number] [place] [address] [id number] Jul, [facility] [id number] [place] [address] [id number] Jul, Chronic obstructive pulmonary disease, unspecified COPD type J44.9 [address] [place] [address] [id number] Jun, CKD (chronic kidney disease), stage 3 (moderate) N18.3 and Anemia, unspecified type D64.9 [address] [place] [address] [id number] Jun, Type 2 diabetes mellitus with diabetic neuropathy E11.40 ; Decreased GFR R94.4 ; CKD (chronic kidney disease), stage 3 (moderate) N18.3 and Decreased hemoglobin R71.0 [place] [id number] [place] [address] [id number] Jun, CKD (chronic kidney disease), stage 3 (moderate) N18.3 and Anemia, unspecified type D64.9 [address] [place] [address] [id number] Jun, Type 2 diabetes mellitus with diabetic neuropathy E11.40 ; Decreased GFR R94.4 and CKD (chronic kidney disease), stage 3 (moderate) N18.3 [address] [place] [address] [id number] Jun, Type 2 diabetes mellitus with diabetic neuropathy E11.40 and Essential hypertension I10 [address] [place] [address] [id number] Jun, [address] [place] [address] [id number] Jun, [place] [id number] [place] [address] [id number] Jun, Type 2 diabetes mellitus with diabetic neuropathy E11.40 ; S/P coronary artery stent placement Z95.5 ; Chronic obstructive pulmonary disease, unspecified COPD type J44.9 ; Essential hypertension I10 ; GERD without esophagitis K21.9 ; Peripheral vascular disease I73.9 ; Mixed hyperlipidemia E78.2 and Hospital discharge follow-up Z09 [address] [place] [address] [id number] Jun, [address] [id number] May, Depression F32.9 and Hyperlipidemia, unspecified hyperlipidemia E78.5 [facility] [address]100[place], [place] [address] May, [address] [place] [address] [id number] May, [place] [address] [place] [address] [id number] May, Essential hypertension I10 ; Chronic pain syndrome G89.4 ; Pain in left shoulder M25.512 ; High risk medication use Z79.899 ; Chronic obstructive pulmonary disease, unspecified COPD type J44.9 ; S/P coronary artery stent placement Z95.5 ; Personal history of carotid stenosis Z86.79 ; Hyperlipidemia, unspecified hyperlipidemia E78.5 ; Decreased GFR R94.4 and Type 2 diabetes mellitus with diabetic polyneuropathy E11.42 [place] [id number] [place] [address] [id number] May, Hemoglobin decreased R71.0 and Decreased GFR R94.4 [place] [address] [place] [address] [id number] May, Hemoglobin decreased R71.0 and Decreased GFR R94.4 [place] [address] [place] [address] [id number] May, [address] [place] [address] [id number] May, [place] [address] [place] [address] [id number] Apr, [place] [address] [place] [address] [id number] Apr, Type 2 diabetes mellitus with foot [...] unspecified hyperlipidemia E78.5 and Essential hypertension I10 [facility] [id number] [place] [address] [id number] Apr, [facility] [id number] [place] [address] [id number] Mar, [facility] [id number] [place] [address] [id number] Mar, [facility] [id number] [place] [address] Mar, [facility] [id number] [place] [address] [id number] Feb, [facility] [id number] [place] [address] [id number] Feb, [facility] [id number] [place] [address] [id number] Feb, [facility] [id number] [place] [address] [id number] Jan, Type 2 diabetes mellitus with diabetic polyneuropathy E11.42 ; Hypercholesterolemia E78.0 ; Chronic pain syndrome G89.4 ; Pain in left shoulder M25.512 and High risk medication use Z79.899 [facility] [id number] [place] [address] [id number] Jan, [facility] [id number] [place] [address] [id number] Jan, [facility] [id number] [place] [address] [id number] December, [facility] [id number] [place] [address] [id number] December, [facility] [address]100[place], [place] [address] December, Diabetes type 2, uncontrolled E11.65 ; Type 2 diabetes mellitus with diabetic neuropathy E11.40 ; Peripheral vascular disease I73.9 ; 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 and 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 [facility] [id number] [place] [address] [id number] Nov, [facility] [address] [id number], [place] [id number] Nov, [facility] [address] [id number] [place] [id number] Nov, [facility] [address] [id number], [place] [id number] Nov, Right hip pain M25.551 [facility] [id number] [place] [address] 578345- 35[address] Nov, [facility] [id number] [place] [address] 8[address]- [address] Nov, [facility] [id number] [place] [address] [id number] Nov, Diabetes with neurological manifestations, type II or unspecified type, 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.60 [facility] [id number] [place] [address] [id number] Nov, [facility] [id number] [place] [address] [id number] Nov, [facility] [address] [id number][place] [id number] Oct, Diabetes type 2, uncontrolled E11.65 ; Type 2 diabetes mellitus with diabetic neuropathy, unspecified E11.40 and Low back pain M54.5 [facility] [address] [id number], [place] [id number] Oct, [facility] [address] [id number], [place] [id number] Oct, [facility] [address] [id number], [place] [id number] Oct, [facility] [address] [id number], [place] [phone] Sep, [facility] [id number] [place] [address] [id number] Sep, [facility] [address]100[place], [place] [address] Sep, [facility] [id number] [place] [address] [id number] Sep, [facility] [address] [facility] [id number][place] [id number] Sep, [facility] [id number] [place] [address] [id number] Aug, 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 [facility] [id number], [place] [id number] Aug, [facility] [id number] [place] [address] [id number] Aug, Allergic rhinitis due to pollen J30.[address] [id number] [place]ALLS[place] [id number] Jul, [facility] [id number] [place] [address] [id number] Jul, [facility] [id number] [place] [address] [id number] Jul, [place] [id number] [place] [address] [id number] Jun, [facility] [id number] [place] [address] [id number] Jun, Thumb tendonitis M77.8 and Ringing in ear, bilateral H93.13 [address] [id number] FALLS[place] [id number] Jun, [facility] [id number], [place] [id number] May, [facility] [id number] [place] [address] 19[address] 9[address] May, [facility] [address] [place] [address] 716[address] 2540 May, Pre-op evaluation Z01.818 ; Encounter for immunization Z23 ; Type 2 diabetes mellitus with diabetic peripheral angiopathy without gangrene E11.51 ; Insulin long-term use Z79.4 ; Type 2 diabetes mellitus with foot ulcer E11.621 ; Peripheral vascular disease I73.9 ; Coronary artery disease involving [place] coronary artery of [place]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 ; S/P coronary artery stent placement Z95.5 ; Osteomyelitis of right foot, unspecified chronicity M86.9 and Chronic obstructive pulmonary disease, unspecified COPD type J44.9 [facility] [address] [address] May, [facility] [id number] [place] [address] [id number] May, [facility] [address] [id number] May, Diabetes type 2, uncontrolled E11.65 ; Encounter for immunization Z23 ; Osteopenia M85.80 and Allergic rhinitis due to pollen J30.1 [facility] [id number] [place] [address] [id number] May, Lumbago 724.2 [facility] [id number] [place] [address] [id number] Apr, [address] [id number] Apr, [facility] [id number] [place] [address] [phone] Apr, [facility] [id number] [place] [address] [phone] Apr, [facility] [id number] [place] [address] 30400 2546 Mar, [facility] [id number] [place] [address] [id number] Mar, [facility] [id number] [place] [address] [id number] Mar, [facility] [id number] [place] [address] [phone] Mar, [facility] [id number] [place] [address] [id number] Mar, [facility] [id number] [place] [address] [id number]- 7861 Mar, [facility] [id number] [place] [address] [id number] Mar, [facility] [id number] [id number] Mar, Diabetes with neurological manifestations, type II or unspecified type, 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.60 and Severe obesity (BMI 35.0-35.9 with comorbidity) 278.01 [facility] [address] [id number] [place] [id number] Mar, [facility] [id number] [place] [address] 60972- 2546 Mar, [facility] [id number] [place] [address] 90126- 2546 Feb, [facility] [address] [id number] [place] [id number] Feb, [facility] [address] [id number] [place] [id number] Feb, [facility] [address] [id number] [place] [id number] Feb, Diabetes with neurological manifestations, type II or unspecified type, 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.60 [facility] [id number] [place] [id number] Feb, [facility] [id number] [place] [address] 30971- 2546 Feb, [facility] [address] [id number] [id number] Feb, [facility] [id number] [place] [id number] Feb, Follow up V67.9 ; Diabetes with neurological manifestations, type II or unspecified type, 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.60 and Congestive heart failure 428.0 [facility] [address] [id number] [place] [id number] Jan, [facility] [address] [id number] [place] [id number] Jan, [facility] [address] [id number] [place] [id number] Jan, [facility] [address] [id number][place] [id number] December, Otitis media with effusion 381.4 ; Left arm numbness 782.0 and Osteoporosis 733.00 [facility] [id number], [place] [id number] December, [facility] [id number], [place] [id number] Nov, [facility] [id number], [place] [id number] Nov, Serous otitis media 381.4 and Lumbago 724.2 [facility] [id number] [place] [address] 14049- 7499 Nov, [facility] [place] [facility] [id number] [place] [address] 39863- 1496 Nov, [facility] [id number], [place] [id number] Oct, [facility] [place] [id number] [place] [address] 45870- 5846 Oct, [facility] [id number], [place] 657177927 Oct, [facility] [id number] [place] [address] 548073- 6939 Oct, [facility] [id number], [place] [id number] Oct, [facility] [id number] [place] [address] 33575- 9606 Oct, [facility] [place] [facility] [address]00565100[place], [place] [address]- 2116 Sep, [facility] [place] [facility] [address]00565100[place], [place] [address]- 2046 Sep, [facility] [id number], [place] [id number] Sep, [facility] [address]00565100[place], [place] [address]- 6636 Sep, [facility] [address] [id number] [place] [id number] Aug, [facility] [place] [facility] [address] [id number], [place] [address]- 6032 Aug, [facility] [address] [id number] [place] [id number] Aug, [facility] [place] [facility] [address] [facility] [id number] [address]- 9457 Aug, [facility] [address] [id number], [place] [id number] Jul, [facility] [place] [facility] [address] [facility] [id number][place] [address]- 0145 Jul, [facility] [address] [facility] [id number], [place] [id number] Jul, [facility] [place] [facility] [address] [facility] [id number], [place] [address]- 0362 Jul, [facility] [address] [facility] [id number], [place] [id number] Jul, [facility] [place] [facility] [address] [facility] [id number] [address]- 6816 Jul, [facility] [address] [facility] [id number], [place] [id number] Jun, [facility] [place] [facility] [address] [facility] [id number], [place] [address]- 4724 Jun, [facility] [address] [facility] [id number], [place] [id number] May, [facility] [place] [facility] [address] [facility] [id number][place] [address]- 1682 May, [facility] [address] [id number] [place] [id number] May, [facility] [place] [facility] [address] [facility] [id number] [place] [address]- 3448 May, [facility] [address] [id number], [place] 649358523 May, [facility] [place] [facility] [address] [facility] [id number], [place] [address]- 9796 May, [facility] [address] [id number], [place] [id number] May, [facility] [address] [facility] [id number], [place] [id number] May, [facility] [place] [facility] [address] [facility] [id number][place] [address]- 1671 May, [facility] [place] [facility] [address] [facility] [id number], [place] [address]- 5781 May, [facility] [address] [facility] [id number], [place] [id number] May, [facility] [place] [facility] [address] [facility] [id number], [place] [address]- 0529 May, [facility] [place] [facility] [address]00565100[place], [place] [address]- 8339 Apr, [facility] [address] [facility] [id number], [place] [id number] Apr, [facility] [place] [facility] [address] [facility] [id number], [place] [address]- 6203 Apr, [facility] [address] [facility] [id number], [place] [id number] Apr, [facility] [address] [facility] [id number], [place] [id number] Apr, [facility] [place] [facility] [address] [facility] [id number], [place] [address]- 9380 Apr, [facility] [place] [facility] [address] [facility] [id number], [place] [address]- 5428 Apr, [facility] [address] [facility] [id number], [place] 046999802 Apr, [facility] [place] [facility] [address] [facility] [id number], [place] [address]- 4794 Apr, [facility] [address] [facility] [id number][place] 145375752 Apr, [facility] [place] [facility] [address] [facility] [id number][place] [address]- 3707 Apr, [facility] [address] [facility] [id number] [place] [id number] Apr, [facility] [place] [facility] [address] [facility] [id number] [place] [address]- 9807 Apr, [facility] [address] [facility] [id number] [place] [id number] Apr, [facility] [place] [facility] [address] [facility] [id number][place] [address]- 4885 Apr, [facility] [address] [facility] [id number] [place] [id number] Apr, [facility] [place] [facility] [address] [id number] [address]- 2966 Apr, [facility] [address] [facility] [id number], [place] [id number] Apr, [facility] [place] [facility] [address]00565100[place], [place] [address]- 6534 Apr, [facility] [address] [facility] [id number], [place] 123020235 Mar, [facility] [place] [facility] [address] [facility] [id number], [place] [address]- 4977 Mar, [facility] [address] [id number], [place] [id number] Mar, [facility] [address] [facility] [id number], [place] [id number] Mar, [facility] [place] [facility] [address] [facility] [id number], [place] [address]- 1042 Mar, [facility] [place] [facility] [address] [facility] [id number][place] [address]- 3579 Mar, [facility] [address] [facility] [id number], [place] 510025218 Mar, [facility] [place] [facility] [address] [facility] [id number], [place] [address]- 9890 Mar, [facility] [address] [id number] [place] [id number] Mar, [facility] [place] [facility] [address] [id number] [place] [address]- 6903 Mar, [facility] [address] [id number] [place] [id number] Mar, [facility] [place] [facility] [address] [facility] [id number] [place] [address]- 7611 Mar, [facility] [address] [id number] [place] [id number] Mar, [facility] [place] [facility] [address] [facility] [id number] [place] [address]- 9247 Mar, [facility] [address] [facility] [id number] [place] [id number] Mar, [facility] [place] [facility] [address] [place] [address]- 2492 Mar, [facility] [address] [facility] [id number] [place] [id number] Mar, [facility] [place] [facility] [address] [facility] [id number] [place] [address]- 7791 Mar, [facility] [address] [facility] [id number] [place] [id number] Mar, [facility] [place] [facility] [address] [facility] [id number] [place] [address]- 3804 Mar, [facility] [address] [id number] [place] [id number] Feb, [facility] [place] [facility] [address] [facility] [id number] [place] [address]- 6756 Feb, [facility] [address] [id number] [place] [id number] Feb, [facility] [place] [facility] [address] [facility] [id number] [place] [id number]- 7390 Feb, [facility] [address] [id number] [place] [id number] Feb, [facility] [place] [facility] [address] [id number] [place] [address]- 4220 Feb, [facility] [address] [id number] [place] [id number] Feb, [facility] [place] [facility] [address] [id number] [place] [address]- 7584 Feb, [facility] [address] [id number] [place] [id number] Feb, [facility] [place] [facility] [address] [id number] [place] [address]- 4952 Feb, [facility] [address] [id number] [place] [id number] Feb, [facility] [place] [facility] [address] [facility] [id number] [place] [address]- 8321 Feb, [facility] [address] [id number] [place] [id number] Feb, [facility] [place] [facility] [address] [facility] [id number] [place] [address]- 7426 Feb, [facility] [address] [id number] [place] [id number] Feb, [facility] [place] [facility] [address] [facility] [id number] [place] [address]- 1874 Feb, [facility] [address] [id number] [place] [id number] Feb, [facility] [place] [facility] [address] [facility] [id number] [place] [address]- 1857 Feb, [facility] [address] [id number] [place] [id number] Feb, [facility] [address] [id number] [place] [id number] Feb, [facility] [place] [facility] [address] [facility] [id number] [place] [address]- 7982 Feb, [facility] [place] [facility] [address] [facility] [id number] [place] [address]- 3985 Feb, [facility] [address] [id number] [place] [id number] Feb, [facility] [place] [facility] [address] [id number] [place] [address]- 0170 Feb, [facility] [address] [id number] [place] [id number] Feb, [facility] [place] [facility] [address] [id number] [place] [address]- 6239 Feb, [facility] [address] [id number] [place] [id number] Feb, [facility] [place] [facility] [address] [id number] [place] [address]- 2188 Feb, [facility] [address] [id number] [place] [id number] Jan, [facility] [place] [facility] [address] [id number] [place] [address]- 3770 Jan, [facility] [place] [facility] [address] [id number] [place] [address]- 1624 Jan, [facility] [place] [facility] [address] [facility] [id number] [place] [address]- 5325 Jan, [facility] [place] [facility] [address] [facility] [id number] [place] [address]- 0406 Jan, [facility] [place] [facility] [address] [id number] [place] [address]- 3594 Jan, [facility] [address] [id number] [place] [id number] Jan, [facility] [place] [facility] [address] [id number] [place] [address]- 8166 Jan, [facility] [place] [facility] [address] [facility] [id number] [place] 58569320- 1513 Jan, [facility] [place] [facility] [address] [id number] [place] [address]- 2483 Jan, [facility] [address] [id number] [place] [id number] Jan, [facility] [address] [id number] [place] [id number] Jan, [facility] [place] [facility] [address] [id number] [place] [address]- 3026 Jan, [facility] [place] [facility] [address] [id number] [place] [address]- 4636 Jan, [facility] [address] [id number] [place] [id number] Jan, [facility] [address] [id number] [place] [id number] Jan, [facility] [place] [facility] [address] [facility] [id number] [place] [address]- 6356 Jan, [facility] [place] [facility] [address] [facility] [id number] [place] [address]- 9505 Jan, [facility] [place] [facility] [address] [facility] [id number], [place] [address]- 2089 Jan, [facility] [address] [facility] [id number] [place] [id number] December, [facility] [place] [facility] [address] [facility] [id number], [place] [address]- 6540 December, [facility] [place] [facility] [address] [facility] [id number], [place] [address]- 0073 December, [facility] [address] [id number], [place] 226356934 December, [facility] [place] [facility] [address] [id number] [place] [address]- 3158 December, [facility] [address] [id number] [place] [id number] December, [facility] [place] [facility] [address] [facility] [id number] [place] [address]- 1346 December, [facility] [address] [facility] [id number], [place] [id number] December, [facility] [place] [facility] [address] [facility] [id number], [place] [address]- 0896 December, [facility] [address] [facility] [id number], [place] 561679808 Nov, [facility] [place] [facility] [address] [facility] [id number] [place] [address]- 1256 Nov, [facility] [address] [facility] [id number], [place] 609202356 Nov, [facility] [place] [facility] [address] [facility] [id number], [place] [address]- 2224 Nov, [facility] [place] [facility] [address] [facility] [id number] [place] [address]- 2235 Nov, [facility] [place] [facility] [address] [facility] [id number], [place] [address]- 6723 Nov, [facility] [place] [facility] [address]00565100[place], [place] [address]- 7981 Oct, [facility] [id number], [place] [id number] Oct, [facility] [place] [facility] [address]00565100[place], [place] [address]- 7810 Oct, [facility] [id number], [place] 960416484 Oct, [facility] [place] [facility] [address] [id number] [address]- 6040 Oct, [facility] [address] [facility] [id number], [place] 174727392 Sep, [facility] [place] [facility] [address] [facility] [id number], [place] [address]- 2690 Sep, [facility] [address] [facility] [id number], [place] [id number] Aug, [facility] [place] [facility] [address] [facility] [id number][place] [address]- 2600 Aug, [facility] [address] [facility] [id number][place] [id number] Aug, [facility] [place] [facility] [address] [facility] [place] [id number] [place] [address] Aug, [facility] [place] [facility] [address] [facility] [place] [id number], [place] [address] Aug, [facility] [address] [facility] [id number] [place] [id number] Aug, [facility] [place] [facility] [address] [facility] [place] [id number], [place] [address] Aug, [facility] [place] [facility] [address] [facility] [place] [place] [id number] [place] [address] Aug, [facility] [address] [facility] [id number] [place] [id number] Aug, [facility] [place] [facility] [id number], [place] [address] Aug, [facility] [id number] [id number] Jul, [facility] [place] [facility] [address] [facility] [place] [place] [id number], [place] [address] Jul, [facility] [address] [facility] [id number][place] [id number] Jul, [facility] [place] [facility] [address] [facility] [place] [place] [id number], [place] [address] Jul, [facility] [address] [facility] [id number][place] [id number] Jul, [facility] [place] [facility] [address] [facility] [place] [id number], [place] [address] Jul, [facility] [address] [facility] [id number], [place] [id number] Jul, [facility] [place] [facility] [address] [facility] [place] [id number], [place] [address] Jul, [facility] [address] [facility] [id number] [place] [id number] Jun, [facility] [place] [facility] [address] [facility] [place] [id number][place] [address] Jun, [facility] [address] [id number] [place] [id number] Jun, [facility] [address] [facility] [place] [id number], [place] [address] Jun, [facility] [address] [facility] [place] [id number], [place] [address] Jun, [facility] [address] [facility] [place] [id number], [place] [address] Jun, [facility] [address] [id number] [place] [id number] Apr, [facility] [address] [id number] [place] [id number] Mar, [facility] [address] [id number] [place] [id number] Mar, [facility] [address] [id number] [place] [id number] Feb, [facility] [address] [id number] [place] [id number] Feb, [facility] [address] [id number] [place] [id number] Feb, [facility] [address] [id number] [place] [id number] December, [facility] [address] [id number] [place] [id number] December, [facility] [address] [facility] [place] [id number], [place] [address] December, [facility] [address] [id number] [place] [id number] December, [facility] [address] [id number] [place] [id number] December, [facility] [address] [id number] [place] [id number] Nov, [facility] [address] [id number] [place] [id number] Nov, [facility] [address] [id number] [place] [id number] Nov, [facility] [address] [id number] [place] [id number] Oct, [facility] [address] [id number] [place] [id number] Sep, [facility] [address] [id number] [place] [id number] Aug, [facility] [address] [facility] [place] [id number], [place] [address] Aug, [facility] [address] [id number] [place] [id number] Aug, [facility] [address] [id number] [place] [id number] Jul, [facility] [place] [facility] [id number], [place] [address] Jul, [facility] [address] [id number][place] [id number] Jul, [facility] [place] [facility] [id number] [address] Jul, [facility] [address] [facility] [id number], [place] [id number] Jun, [facility] [place] [facility] [id number] [id number] Jun, [facility] [address] [facility] [id number], [place] [id number] May, [facility] [place] [facility] [address] [facility] [place] [id number], [place] [address] May, [facility] [address] [id number][place] [id number] May, [facility] [place] [facility] [address] [facility] [place] [id number], [place] [address] May, [facility] [address] [id number], [place] [id number] Apr, [facility] [address] [id number], [place] [id number] Apr, [facility] [address] [id number] [place] [id number] Mar, [facility] [address] [id number] [place] [id number] Mar, [facility] [place] [address] [id number] [place] [id number] Feb, [facility] [place] [address] [id number] [place] [id number] Feb, [facility] [place] [address] [id number] [place] [id number] Jan, [facility] [place] [address] [id number] [place] [id number] Jan, [facility] [place] [address] [id number] [place] [id number] Jan, [facility] [place] [address] [id number] [place] [id number] Jan, [facility] [place] [address] [id number] [place] [id number] December, [facility] [place] [address] [id number] [place] [id number] December, [facility] [address] [facility] [id number] [address] Nov, [facility] [place] [address] [id number] [place] [id number] Nov, [facility] [place] [address] [id number] [place] [id number] Nov, [facility] [place] [address] [id number] [place] [id number] Nov, [facility] [place] [address] [id number] [place] [id number] Nov, [facility] [address] [facility] [place] [id number], [place] [address] Oct, [facility] [address] [facility] [place] [place] [id number], [place] [address] Oct, [facility] [place] [address] [id number] [id number] Oct, [facility] [place] [address] [id number] [place] [id number] Oct, [facility] [place] [address] [id number] [place] [id number] Oct, [facility] [place] [address] [id number] [place] [id number] Oct, [facility] [place] [address] [id number] [place] [id number] Oct, [facility] [place] [address] [id number] [place] [id number] Oct, [facility] [place] [address] [id number] [place] [id number] Oct, [facility] [address] [id number] [address] Oct, [facility] [place] [address] [id number] [place] [id number] Sep, [facility] [place] [address] [id number] [place] [id number] Sep, [facility] [place] [address] [id number] [place] [id number] Aug, [facility] [place] [address] [id number] [place] [id number] Aug, [facility] [id number], [place] [address] Jul, [facility] [address] [id number], [place] [address] Jul, [facility] [address] [id number], [place] [address] Jul, [facility] [id number] [place] [address] Jul, [facility] [id number], [place] [address] Jul, [facility] [id number] [place] [address] Jul, [facility] [address] [id number], [place] [address] Jul, [facility] [id number], [place] [address] Jul, [facility] [address] [id number], [place] [address] Jul, [facility] [id number] [address] Jul, [facility] [id number], [place] [address] Jul, [facility] [id number] [place] [id number] Jul, [facility] [id number], [place] [address] Jul, [facility] [address] [id number], [place] [address] Jul, IMMUNIZATIONS No Known Immunizations SOCIAL HISTORY Never Assessed REASON FOR VISIT narcotic refill PLAN OF CARE VITAL SIGNS MEDICATIONS Medication Instructions Dosage Frequency Start Date End Date Duration Status Tramadol HCl 50 mg Orally 3 times a day 1 tablet 8h 30 days Active RESULTS No Results PROCEDURES No [...] 6 mo fu by card Medical History 8/8/17 Dr. Larson FU. Asymptomatic no need for [...] Surgical History Left eye retinal eye repair ([facility]) 06/2014 Surgical History amputation, toe-right third toe ([facility]) 2013 Surgical History Right eye retinal eye repair ([facility]) 09/2014 Surgical History heart cath [...]
--- OUTSIDE RECORDS SUMMARY | 2018-06-20 10:45 | XMS REPORT ---
Author Author ARIELLE DE DIOS [facility] Address [address] [place] [address] Care Team Providers Care Inventory Control Manager Name Role Phone ARIELLE DE DIOS Unavailable PROBLEMS ALLERGIES No Known Allergies ENCOUNTERS IMMUNIZATIONS No Known Immunizations SOCIAL HISTORY No smoking Hx information available REASON FOR VISIT PLAN OF CARE VITAL SIGNS MEDICATIONS RESULTS No Results PROCEDURES INSTRUCTIONS MEDICATIONS ADMINISTERED No Known Medications MEDICAL (GENERAL) HISTORY
--- OUTSIDE RECORDS SUMMARY | 2018-06-20 10:47 | XMS REPORT ---
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 Name Role Phone ARIELLE DE DIOS Unavailable PROBLEMS Type Condition ICD9-CM Code MUF53-OA Code Onset Dates Condition Status SNOMED Code Problem Peripheral vascular disease I73.9 Active 895228154 Problem Coronary artery disease involving [place] coronary artery of [place]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 Active [id number] Problem S/P coronary artery stent placement Z95.5 Active 912901168 Problem Chronic obstructive pulmonary disease, unspecified COPD type J44.9 Active 00665836 Problem Type 2 diabetes mellitus with diabetic neuropathy E11.40 Active 84083340 Problem Bilateral low back pain without sciatica M54.5 Active 544724090 Problem 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 Active 612124324 Problem 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 Active 893573540 Problem Hypercholesterolemia E78.0 Active 57720281 Problem Comprehensive diabetic foot examination, type 2 DM, encounter for E11.9 Active 01991356 Problem Type 2 diabetes mellitus with diabetic polyneuropathy E11.42 Active 908282824 Problem Obesity (BMI 30.0-34.9) E66.9 Active [id number] Problem Personal history of carotid stenosis Z86.79 Active 987675460 Problem Aphasia R47.01 Active 24649442 Problem Chronic diarrhea K52.9 Active 792526858 Problem Uses walker Z99.89 Active 341285713 Problem Chronic fatigue R53.82 Active 89858926 Problem Mixed stress and urge urinary incontinence N39.46 Active 385546135 Problem Chronic pain syndrome G89.4 Active 885049282 Problem High risk medication use Z79.899 Active 885120479 Problem Osteomyelitis of right foot, unspecified chronicity M86.9 Active 54908892 Problem Fatigue, unspecified type R53.83 Active 73323823 Problem Diabetes type 2, uncontrolled E11.65 Active 589180685 Problem Full incontinence of feces R15.9 Active 959774605909113 Problem Other chronic pain G89.29 Active 92721016 Problem Functional diarrhea K59.1 Active 19001047 Problem Fecal urgency R15.2 Active 19111029 Problem Depression F32.9 Active 48518206 Problem CKD (chronic kidney disease), stage 3 (moderate) N18.3 Active 339158635 Problem Hyperlipidemia, unspecified hyperlipidemia E78.5 Active 70523913 Problem CKD (chronic kidney disease) stage 3, GFR 30-59 ml/min N18.3 Active 755400434 Problem Type 2 diabetes mellitus with diabetic peripheral angiopathy without gangrene E11.51 Active 236015917 Problem Pain in left shoulder M25.512 Active 82732451 Problem Insulin long-term use Z79.4 Active 736445879 Problem Essential hypertension I10 Active 19203364 Problem Type 2 diabetes mellitus with diabetic retinopathy, macular edema presence unspecified, with unspecified retinopathy severity E11.319 Active 64639025 Problem Chronic kidney disease, unspecified N18.9 Active 291799050 Problem Type 2 diabetes mellitus with foot ulcer E11.621 Active 206305666 Problem Frequent falls R29.6 Active 346572963 Problem GERD without esophagitis K21.9 Active 661584755 Problem Mixed hyperlipidemia E78.2 Active 903255563 ALLERGIES No Information ENCOUNTERS Encounter Location Date Diagnosis [facility] [address] [facility] [id number] [place] [address] [id number] Apr, Other chronic pain G89.[address] [facility] [id number] [id number] [phone] Apr, [facility] [address] [id number][place] [id number] Apr, Essential hypertension I10 [facility] [id number] [place] [address] [id number] Mar, Other chronic pain G89.29 [facility] [address] [id number], [place] [id number] Mar, [facility] [address] [id number][place] [id number] Feb, Other chronic pain G89.29 [facility] [id number] [place] [address] [id number] Feb, Diabetes type 2, uncontrolled E11.65 ; Type 2 diabetes mellitus with diabetic retinopathy, macular edema presence unspecified, with unspecified retinopathy severity E11.319 and Bilateral low back pain without sciatica M54.5 [facility] [id number] [place] [address] [id number] Feb, [facility] [address] [place] [id number] [place] [address] [id number] Feb, Diabetes type 2, uncontrolled E11.65 [facility] [id number] [place] [address] [id number] Feb, Other chronic pain G89.29 [facility] [id number] [place] [address] [id number] Jan, [facility] [id number] [place] [address] [id number] Jan, [facility] [id number] [place] [address] [id number] Jan, [facility] [id number] [place] [address] [id number] Jan, Other chronic pain G89.29 [facility] [id number] [place] [address] [id number] December, Mixed stress and urge urinary incontinence N39.46 [facility] [id number] [place] [address] [id number] December, Chronic fatigue R53.82 [facility] [id number] [place] [address] [id number] December, Other chronic pain G89.29 [facility] [id number] [place] [address] [id number] December, Diabetes type 2, uncontrolled E11.65 ; [...] type J44.9 and Other chronic pain G89.29 [facility] [address]00565100[place] [phone] December, [place] [id number] [place] [address] [id number] December, Medicare annual wellness visit, subsequent Z00.00 ; Type 2 diabetes mellitus with diabetic polyneuropathy E11.42 ; Chronic obstructive pulmonary disease, unspecified COPD type J44.9 ; Depression F32.9 ; Peripheral vascular disease I73.9 ; Coronary artery disease involving [place] coronary artery of [place]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 ; Hypercholesterolemia E78.0 ; GERD without esophagitis K21.9 and Chronic kidney disease, unspecified N18.9 [place] [id number] [place] [address] [id number] December, Mixed stress and urge urinary incontinence N39.46 ; Full incontinence of feces R15.9 ; Fecal urgency R15.2 ; Functional diarrhea K59.1 and Type 2 diabetes mellitus with diabetic neuropathy E11.40 [address] [place] [address] [id number] Nov, Other chronic pain G89.29 [place] [id number] [place] [address] [id number] Oct, [place] [id number] [place] [address] [id number] Oct, [place] [id number] [place] [address] [id number] Oct, Other chronic pain G89.29 [place] [id number] [place] [address] [id number] Sep, Other chronic pain G89.29 [place] [id number] [place] [address] [id number] Aug, CKD (chronic kidney disease), stage 3 (moderate) N18.3 ; Anemia, unspecified type D64.9 and Dilated pore of Ly L70.8 [place] [id number] [place] [address] [id number] Aug, Other chronic pain G89.29 ; Pain in left shoulder M25.512 ; High risk medication use Z79.899 ; Uses walker Z99.89 ; Diabetes type 2, uncontrolled E11.65 and Depression F32.9 [facility] [id number] [place] [address] [id number] Aug, Chronic diarrhea K52.9 [place] [id number] [place] [address] [id number] Aug, Chronic diarrhea K52.9 ; Type 2 diabetes mellitus with diabetic neuropathy E11.40 ; Diabetes type 2, uncontrolled E11.65 ; Insulin long-term use Z79.4 ; Chronic obstructive pulmonary disease, unspecified COPD type J44.9 ; Chronic pain syndrome G89.4 ; Pain in left shoulder M25.512 ; Uses walker Z99.89 ; S/P coronary artery stent placement Z95.5 ; Mixed hyperlipidemia E78.2 and Essential hypertension I10 [place] [id number] [place] [address] [id number] Aug, [place] [id number] [place] [address] [id number] Jul, Diabetes type 2, uncontrolled E11.65 [place] [id number] [place] [address] [id number] Jul, Diabetes type 2, uncontrolled E11.65 ; Type 2 diabetes mellitus with diabetic neuropathy E11.40 ; Insulin long-term use Z79.4 and Chronic obstructive pulmonary disease, unspecified COPD type J44.9 [address] [place] [address] [id number] Jun, [address] [place] [address] [id number] Jun, Essential hypertension I10 [place] [id number] [place] [address] [id number] Jun, Essential hypertension I10 [place] [id number] [place] [address] [id number] Jun, Type 2 diabetes mellitus with diabetic neuropathy E11.40 ; Type 2 diabetes mellitus with diabetic polyneuropathy E11.42 ; S/P coronary artery stent placement Z95.5 ; Obesity (BMI 30.0-34.9) E66.9 ; Mixed hyperlipidemia E78.2 ; Frequent falls R29.6 ; Chronic obstructive pulmonary disease, unspecified COPD type J44.9 ; Essential hypertension I10 ; Insulin long-term use Z79.4 and High risk medication use Z79.899 [address] [place] [address] [id number] May, Diarrhea, unspecified type R19.7 ; Type 2 diabetes mellitus with diabetic neuropathy E11.40 ; Chronic obstructive pulmonary disease, unspecified COPD type J44.9 ; S/P coronary artery stent placement Z95.5 ; High risk medication use Z79.899 ; Essential hypertension I10 ; Encounter for administration of vaccine Z23 and Encounter for immunization Z23 [address] [id number] [id number] May, Chronic obstructive pulmonary disease, unspecified COPD type J44.9 [address] [place] [address] [id number] May, Type 2 diabetes mellitus with diabetic polyneuropathy E11.42 ; Encounter for immunization Z23 ; Needs flu shot Z23 ; Comprehensive diabetic foot examination, type 2 DM, encounter for E11.9 and Obesity (BMI 30.0-34.9) E66.9 [address] [place] [address] [id number] May, [address] [place] [address] [id number] Apr, [place] [id number] [place] [address] [id number] Apr, Essential hypertension I10 and Aphasia R47.01 [place] [id number] [place] [address] [id number] Apr, [place] [id number] [place] [address] [id number] Apr, Type 2 diabetes mellitus with diabetic neuropathy E11.40 ; Frequent falls R29.6 ; Essential hypertension I10 ; S/P coronary artery stent placement Z95.5 ; High risk medication use Z79.899 ; Hyperlipidemia, unspecified hyperlipidemia E78.5 ; CKD (chronic kidney disease), stage 3 (moderate) N18.3 ; Pain in left shoulder M25.512 and Chronic obstructive pulmonary disease, unspecified COPD type J44.9 [facility] [id number] [place] [address] [id number] Mar, [facility] [id number] [place] [address] [id number] Mar, Type 2 diabetes mellitus with diabetic polyneuropathy E11.42 ; Leg wound, left, initial encounter S81.802A ; Hx of shoulder surgery Z98.890 ; Acute pain of left shoulder M25.512 and Fall, initial encounter W19.XXXA [facility] [address] [id number] Feb, Follow-up exam Z09 ; Hx of shoulder surgery Z98.890 ; Acute pain of left shoulder M25.512 ; Essential hypertension I10 and Leg wound, left, initial encounter S81.802A [facility] [id number] [place] [address] [id number] Feb, [facility] [id number] [place] [address] [id number] Feb, [facility] [id number] [place] [address] [id number] Feb, Chronic obstructive pulmonary disease, unspecified COPD type J44.[address] [facility] [id number] [place] [address] [id number] Feb, [facility] [id number] [place] [address] [id number] Jan, Generalized weakness R53.1 ; Exertional shortness of breath R06.02 and Fungal rash of trunk B36.9 [facility] [id number] [place] [address] [id number] Jan, [facility] [id number] [place] [address] [id number] Jan, [facility] [id number] [place] [address] [id number] Jan, [facility] [id number] [place] [address] [id number] Jan, [address] [id number][place] [id number] December, High risk medication use Z79.899 [address] [id number] December, Type 2 diabetes mellitus with diabetic neuropathy E11.[address] [id number], [place] [id number] December, High risk medication use Z79.[address] [id number][place] [id number] Nov, Diabetes type 2, uncontrolled E11.65 [address] [place] [address] [id number] Nov, Medicare annual wellness visit, initial Z00.00 ; Bilateral low back pain without sciatica M54.5 ; Pain in left shoulder M25.512 ; Chronic pain syndrome G89.4 ; Type 2 diabetes mellitus with diabetic polyneuropathy E11.42 ; High risk medication use Z79.899 and Encounter for immunization Z23 [address]005[address]100[place] [id number] Nov, Type 2 diabetes mellitus with diabetic neuropathy E11.40 ; Coronary artery disease involving [place] coronary artery of [place]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 and CKD (chronic kidney disease), stage 3 (moderate) N18.[address] [id number], [place] [id number] Oct, Type 2 diabetes mellitus with diabetic polyneuropathy E11.42 ; Chronic pain syndrome G89.4 ; Chronic obstructive pulmonary disease, unspecified COPD type J44.9 ; Chronic kidney disease, unspecified N18.9 and Rash R21 [place] [id number] [facility] [address] [id number] [id number] Oct, Type 2 diabetes mellitus with diabetic neuropathy E11.[address] [id number], [place] [id number] Oct, Rash R21 and Impetigo L01.[address] [id number], [place] [id number] Oct, Chronic pain syndrome G89.4 [facility] [id number], [place] [id number] Oct, [facility] [id number] [place] [address] [id number] Sep, Sebaceous cyst L72.3 [facility] [id number], [place] [id number] Sep, Sebaceous cyst L72.3 [facility] [id number] [place] [address] [id number] Sep, Chronic pain syndrome G89.4 ; Pain in left shoulder M25.512 and Effusion of olecranon bursa, left M25.422 [facility] [address] [id number] [address] Aug, [facility] [id number] [place] [address] [id number] Aug, [facility] [id number] [place] [address] [id number] Aug, Mixed hyperlipidemia E78.2 and Chronic kidney disease, unspecified N18.9 [facility] [id number] [place] [address] [id number] Jul, Type 2 diabetes mellitus with diabetic neuropathy E11.40 ; Essential hypertension I10 and S/P coronary artery stent placement Z95.5 [facility] [id number] [place] [address] [id number] Jul, 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 [facility] [id number] [place] [address] [id number] Jul, Diabetes type 2, uncontrolled E11.65 ; Essential hypertension I10 and 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 [place] [id number] [place] [address] [id number] Jul, [facility] [id number] [place] [address] [id number] Jul, [facility] [id number] [place] [address] [id number] Jul, [facility] [id number] [place] [address] [id number] Jul, Chronic obstructive pulmonary disease, unspecified COPD type J44.9 [address] [place] [address] [id number] Jun, CKD (chronic kidney disease), stage 3 (moderate) N18.3 and Anemia, unspecified type D64.9 [address] [place] [address] [id number] Jun, Type 2 diabetes mellitus with diabetic neuropathy E11.40 ; Decreased GFR R94.4 ; CKD (chronic kidney disease), stage 3 (moderate) N18.3 and Decreased hemoglobin R71.0 [place] [id number] [place] [address] [id number] Jun, CKD (chronic kidney disease), stage 3 (moderate) N18.3 and Anemia, unspecified type D64.9 [address] [place] [address] [id number] Jun, Type 2 diabetes mellitus with diabetic neuropathy E11.40 ; Decreased GFR R94.4 and CKD (chronic kidney disease), stage 3 (moderate) N18.3 [address] [place] [address] [id number] Jun, Type 2 diabetes mellitus with diabetic neuropathy E11.40 and Essential hypertension I10 [address] [place] [address] [id number] Jun, [address] [place] [address] [id number] Jun, [place] [id number] [place] [address] [id number] Jun, Type 2 diabetes mellitus with diabetic neuropathy E11.40 ; S/P coronary artery stent placement Z95.5 ; Chronic obstructive pulmonary disease, unspecified COPD type J44.9 ; Essential hypertension I10 ; GERD without esophagitis K21.9 ; Peripheral vascular disease I73.9 ; Mixed hyperlipidemia E78.2 and Hospital discharge follow-up Z09 [address] [place] [address] [id number] Jun, [address] [id number] May, Depression F32.9 and Hyperlipidemia, unspecified hyperlipidemia E78.5 [facility] [address]005[address]100[place] [id number] May, [address] [place] [address] [id number] May, [place] [id number] [place] [address] [id number] May, Essential hypertension I10 ; Chronic pain syndrome G89.4 ; Pain in left shoulder M25.512 ; High risk medication use Z79.899 ; Chronic obstructive pulmonary disease, unspecified COPD type J44.9 ; S/P coronary artery stent placement Z95.5 ; Personal history of carotid stenosis Z86.79 ; Hyperlipidemia, unspecified hyperlipidemia E78.5 ; Decreased GFR R94.4 and Type 2 diabetes mellitus with diabetic polyneuropathy E11.42 [place] [id number] [place] [address] [id number] May, Hemoglobin decreased R71.0 and Decreased GFR R94.4 [place] [id number] [place] [address] [id number] May, Hemoglobin decreased R71.0 and Decreased GFR R94.4 [place] [id number] [place] [address] [id number] May, [address] [place] [address] [id number] May, [place] [id number] [place] [address] [id number] Apr, [place] [id number] [place] [address] [id number] Apr, Type 2 diabetes mellitus with foot [...] unspecified hyperlipidemia E78.5 and Essential hypertension I10 [facility] [id number] [place] [address] [id number] Apr, [facility] [id number] [place] [address] [id number] Mar, [facility] [id number] [place] [address] [id number] Mar, [facility] [id number] [place] [phone] Mar, [facility] [id number] [place] [address] [id number] Feb, [facility] [id number] [place] [address] [id number] Feb, [facility] [id number] [place] [address] [id number] Feb, [facility] [id number] [place] [address] [id number] Jan, Type 2 diabetes mellitus with diabetic polyneuropathy E11.42 ; Hypercholesterolemia E78.0 ; Chronic pain syndrome G89.4 ; Pain in left shoulder M25.512 and High risk medication use Z79.899 [facility] [id number] [place] [address] [id number] Jan, [facility] [id number] [place] [address] [id number] Jan, [facility] [id number] [place] [address] [id number] December, [facility] [id number] [place] [address] [id number] December, [facility] [address] [address] December, Diabetes type 2, uncontrolled E11.65 ; Type 2 diabetes mellitus with diabetic neuropathy E11.40 ; Peripheral vascular disease I73.9 ; 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 and 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 [facility] [id number] [place] [address] [id number] Nov, [facility] [address] [id number] [id number] Nov, [facility] [address] [id number] [place] [id number] Nov, [facility] [address] [id number][place] [id number] Nov, Right hip pain M25.551 [facility] [id number] [place] [address] [phone] Nov, [facility] [id number] [place] [phone] Nov, [facility] [id number] [place] [address] [id number] Nov, Diabetes with neurological manifestations, type II or unspecified type, 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.60 [facility] [id number] [place] [address] [id number] Nov, [facility] [id number] [place] [address] [id number] Nov, [facility] [address] [id number][place] [id number] Oct, Diabetes type 2, uncontrolled E11.65 ; Type 2 diabetes mellitus with diabetic neuropathy, unspecified E11.40 and Low back pain M54.5 [facility] [address] [id number][place] [id number] Oct, [facility] [address] [id number][place] [id number] Oct, [facility] [address] [id number][place] [id number] Oct, [facility] [address] [id number], [place] [id number] Sep, [facility] [id number] [place] [address] [id number] Sep, [facility] [address] [address] Sep, [facility] [id number] [place] [address] [id number] Sep, [facility] [address] [facility] [id number][place] [id number] Sep, [facility] [id number] [place] [address] [id number] Aug, 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 [facility] [id number], [place] [id number] Aug, [facility] [id number] [place] [address] [id number] Aug, Allergic rhinitis due to pollen J30.[address] [id number] [place] [id number] Jul, [facility] [id number] [place] [address] [id number] Jul, [facility] [id number] [place] [address] [id number] Jul, [place] [id number] [place] [address] [id number] Jun, [facility] [id number] [place] [address] [id number] Jun, Thumb tendonitis M77.8 and Ringing in ear, bilateral H93.[address] [id number] [place] [id number] Jun, [facility] [id number][place] [id number] May, [facility] [id number] [place] [address] 45664- 7441 May, [facility] [id number] [place] [address] 97449 2545 May, Pre-op evaluation Z01.818 ; Encounter for immunization Z23 ; Type 2 diabetes mellitus with diabetic peripheral angiopathy without gangrene E11.51 ; Insulin long-term use Z79.4 ; Type 2 diabetes mellitus with foot ulcer E11.621 ; Peripheral vascular disease I73.9 ; Coronary artery disease involving [place] coronary artery of [place]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 ; S/P coronary artery stent placement Z95.5 ; Osteomyelitis of right foot, unspecified chronicity M86.9 and Chronic obstructive pulmonary disease, unspecified COPD type J44.9 [facility] [address] [address]- 7594 May, [facility] [id number] [place] [address] [id number] May, [facility] [address] [id number] May, Diabetes type 2, uncontrolled E11.65 ; Encounter for immunization Z23 ; Osteopenia M85.80 and Allergic rhinitis due to pollen J30.1 [facility] [id number] [place] [address] [id number] May, Lumbago 724.2 [facility] [id number] [place] [address] [id number] Apr, [address] [id number] Apr, [facility] [id number] [place] [address] [id number] Apr, [facility] [id number] [place] [address] [id number] Apr, [facility] [id number] [place] [address] 07012 2546 Mar, [facility] [id number] [place] [address] [id number] Mar, [facility] [id number] [place] [address] [id number] Mar, [facility] [id number] [place] [address] [id number] Mar, [facility] [id number] [place] [address] [id number] Mar, [facility] [id number] [place] [address] [id number] 4586 Mar, [facility] [id number] [place] [address] [id number] Mar, [facility] [id number][place] [id number] Mar, Diabetes with neurological manifestations, type II or unspecified type, 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.60 and Severe obesity (BMI 35.0-35.9 with comorbidity) 278.01 [facility] [address] [id number] [place] [id number] Mar, [facility] [id number] [place] [address] 93179- 2546 Mar, [facility] [id number] [place] [address] 78812- 2546 Feb, [facility] [address] [id number] [place] [id number] Feb, [facility] [address] [id number] [place] [id number] Feb, [facility] [address] [id number] [place] [id number] Feb, Diabetes with neurological manifestations, type II or unspecified type, 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.60 [facility] [id number] [place] [id number] Feb, [facility] [id number] [place] [address] 71019- 2546 Feb, [facility] [address] [id number][place] [id number] Feb, [facility] [id number] [place] [id number] Feb, Follow up V67.9 ; Diabetes with neurological manifestations, type II or unspecified type, 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.60 and Congestive heart failure 428.0 [facility] [address] [id number] [place] [id number] Jan, [facility] [address] [id number] [place] [id number] Jan, [facility] [address] [id number] [place] [id number] Jan, [facility] [address] [id number], [place] [id number] December, Otitis media with effusion 381.4 ; Left arm numbness 782.0 and Osteoporosis 733.00 [facility] [id number], [place] [id number] December, [facility] [id number], [place] [id number] Nov, [facility] [id number], [place] [id number] Nov, Serous otitis media 381.4 and Lumbago 724.2 [facility] [id number] [place] [address] 97762- 9663 Nov, [facility] [place] [facility] [id number] [place] [address] 87261- 3576 Nov, [facility] [id number], [place] [id number] Oct, [facility] [id number] [place] [address] 07991- 9636 Oct, [facility] [id number], [place] [id number] Oct, [facility] [id number] [place] [address] [phone]- 8718 Oct, [facility] [id number], [place] [id number] Oct, [facility] [id number] [place] [address] 64675- 2646 Oct, [facility] [place] [facility] [address]00565100[place] [address]- 4806 Sep, [facility] [place] [facility] [address]00565100[place] [address]- 4826 Sep, [facility] [id number], [place] [id number] Sep, [facility] [address]00565100[place] [address]- 5746 Sep, [facility] [address] [id number] [place] [id number] Aug, [facility] [place] [facility] [address] [id number] [address]- 4778 Aug, [facility] [address] [id number] [place] [id number] Aug, [facility] [place] [facility] [address] [facility] [id number] [address]- 7785 Aug, [facility] [address] [id number], [place] [id number] Jul, [facility] [place] [facility] [address] [facility] [id number] [place] [address]- 5569 Jul, [facility] [address] [facility] [id number], [place] [id number] Jul, [facility] [place] [facility] [address] [facility] [id number] [place] [address]- 9931 Jul, [facility] [address] [facility] [id number], [place] [id number] Jul, [facility] [place] [facility] [address] [facility] [id number] [place] [address]- 2871 Jul, [facility] [address] [facility] [id number], [place] [id number] Jun, [facility] [place] [facility] [address] [facility] [id number] [place] [address]- 7687 Jun, [facility] [address] [facility] [id number], [place] [id number] May, [facility] [place] [facility] [address] [facility] [id number] [address]- 8123 May, [facility] [address] [id number] [place] [id number] May, [facility] [place] [facility] [address] [facility] [id number] [place] [address]- 1398 May, [facility] [address] [id number], [place] [id number] May, [facility] [place] [facility] [address] [facility] [id number] [place] [address]- 6009 May, [facility] [address] [id number], [place] [id number] May, [facility] [address] [facility] [id number], [place] [id number] May, [facility] [place] [facility] [address] [facility] [id number] [place] [address]- 5800 May, [facility] [place] [facility] [address] [facility] [id number] [place] [address]- 8221 May, [facility] [address] [facility] [id number], [place] [id number] May, [facility] [place] [facility] [address] [facility] [id number] [place] [address]- 6277 May, [facility] [place] [facility] [address]00565100[place] [address]- 7559 Apr, [facility] [address] [facility] [id number], [place] [id number] Apr, [facility] [place] [facility] [address] [facility] [id number] [place] [address]- 3066 Apr, [facility] [address] [facility] [id number], [place] [id number] Apr, [facility] [address] [facility] [id number], [place] [id number] Apr, [facility] [place] [facility] [address] [facility] [id number] [place] [address]- 2619 Apr, [facility] [place] [facility] [address] [facility] [id number] [place] [address]- 7596 Apr, [facility] [address] [facility] [id number], [place] [id number] Apr, [facility] [place] [facility] [address] [facility] [id number] [place] [address]- 4243 Apr, [facility] [address] [facility] [id number], [place] [id number] Apr, [facility] [place] [facility] [address] [facility] [id number] [place] [address]- 5141 Apr, [facility] [address] [facility] [id number] [place] [id number] Apr, [facility] [place] [facility] [address] [facility] [id number] [place] [address]- 7109 Apr, [facility] [address] [facility] [id number] [place] [id number] Apr, [facility] [place] [facility] [address] [facility] [id number] [place] [address]- 6691 Apr, [facility] [address] [facility] [id number] [place] [id number] Apr, [facility] [place] [facility] [address] [id number] [address]- 4014 Apr, [facility] [address] [facility] [id number], [place] [id number] Apr, [facility] [place] [facility] [address]00565100[place] [address]- 1541 Apr, [facility] [address] [facility] [id number], [place] [id number] Mar, [facility] [place] [facility] [address] [facility] [id number] [place] [address]- 7574 Mar, [facility] [address] [id number], [place] 096238796 Mar, [facility] [address] [facility] [id number], [place] [id number] Mar, [facility] [place] [facility] [address] [facility] [id number] [place] [address]- 6658 Mar, [facility] [place] [facility] [address] [facility] [id number] [place] [address]- 9233 Mar, [facility] [address] [facility] [id number], [place] 927743878 Mar, [facility] [place] [facility] [address] [facility] [id number] [place] [address]- 0414 Mar, [facility] [address] [id number] [place] 856331454 Mar, [facility] [place] [facility] [address] [id number] [place] [address]- 8887 Mar, [facility] [address] [id number] [place] [id number] Mar, [facility] [place] [facility] [address] [facility] [id number] [place] [address]- 4525 Mar, [facility] [address] [id number] [place] [id number] Mar, [facility] [place] [facility] [address] [facility] [id number] [place] [address]- 1362 Mar, [facility] [address] [facility] [id number] [place] [id number] Mar, [facility] [place] [facility] [id number] [place] [address]- 0957 Mar, [facility] [address] [facility] [id number] [place] [id number] Mar, [facility] [place] [facility] [address] [facility] [id number] [place] [address]- 2420 Mar, [facility] [address] [facility] [id number] [place] [id number] Mar, [facility] [place] [facility] [address] [facility] [id number] [place] [address]- 0733 Mar, [facility] [address] [id number] [place] [id number] Feb, [facility] [place] [facility] [address] [facility] [id number] [place] [address]- 7716 Feb, [facility] [address] [id number] [place] [id number] Feb, [facility] [place] [facility] [address] [facility] [id number] [place] 81947[place]- 1965 Feb, [facility] [address] [id number] [place] 845425454 Feb, [facility] [place] [facility] [address] [id number] [place] [address]- 3808 Feb, [facility] [address] [id number] [place] [id number] Feb, [facility] [place] [facility] [address] [id number] [place] [address]- 8376 Feb, [facility] [address] [id number] [place] 920843103 Feb, [facility] [place] [facility] [address] [id number] [place] [address]- 5249 Feb, [facility] [address] [id number] [place] 205294200 Feb, [facility] [place] [facility] [address] [facility] [id number] [place] [address]- 7183 Feb, [facility] [address] [id number] [place] [id number] Feb, [facility] [place] [facility] [address] [facility] [id number] [place] [address]- 1869 Feb, [facility] [address] [id number] [place] 867792939 Feb, [facility] [place] [facility] [address] [facility] [id number] [place] [address]- 5380 Feb, [facility] [address] [id number] [place] 818363109 Feb, [facility] [place] [facility] [address] [facility] [id number] [place] [address]- 2973 Feb, [facility] [address] [id number] [place] 516367560 Feb, [facility] [address] [id number] [place] 960676494 Feb, [facility] [place] [facility] [address] [facility] [id number] [place] [address]- 2484 Feb, [facility] [place] [facility] [address] [facility] [id number] [place] [address]- 0532 Feb, [facility] [address] [id number] [place] 440682364 Feb, [facility] [place] [facility] [address] [id number] [place] [address]- 7970 Feb, [facility] [address] [id number] [place] 504341843 Feb, [facility] [place] [facility] [address] [id number] [place] [address]- 1789 Feb, [facility] [address] [id number] [place] 204057869 Feb, [facility] [place] [facility] [address] [id number] [place] [address]- 0637 Feb, [facility] [address] [id number] [place] 384332513 Jan, [facility] [place] [facility] [address] [id number] [place] [address]- 9387 Jan, [facility] [place] [facility] [address] [id number] [place] [address]- 9385 Jan, [facility] [place] [facility] [address] [facility] [id number] [place] [address]- 3103 Jan, [facility] [place] [facility] [address] [facility] [id number] [place] [address]- 5066 Jan, [facility] [place] [facility] [address] [id number] [place] [address]- 8524 Jan, [facility] [address] [id number] [place] 073329260 Jan, [facility] [place] [facility] [address] [id number] [place] [address]- 3359 Jan, [facility] [place] [facility] [address] [facility] [id number] [place] 73686822- 7626 Jan, [facility] [place] [facility] [address] [id number] [place] [address]- 6445 Jan, [facility] [address] [id number] [place] 633110710 Jan, [facility] [address] [id number] [place] 175035799 Jan, [facility] [place] [facility] [address] [id number] [place] [address]- 1846 Jan, [facility] [place] [facility] [address] [id number] [place] [address]- 2896 Jan, [facility] [address] [id number] [place] 523030206 Jan, [facility] [address] [id number] [place] 118111857 Jan, [facility] [place] [facility] [address] [facility] [id number] [place] [address]- 6516 Jan, [facility] [place] [facility] [address] [facility] [id number] [place] [address]- 4561 Jan, [facility] [place] [facility] [address] [facility] [id number] [place] [address]- 2809 Jan, [facility] [address] [facility] [id number] [place] 093695674 December, [facility] [place] [facility] [address] [facility] [id number] [place] [address]- 8432 December, [facility] [place] [facility] [address] [facility] [id number] [place] [address]- 7505 December, [facility] [address] [id number], [place] 273123746 December, [facility] [place] [facility] [address] [id number] [place] [address]- 5644 December, [facility] [address] [id number] [place] 451983635 December, [facility] [place] [facility] [address] [facility] [id number] [place] [address]- 6896 December, [facility] [address] [facility] [id number][place] [id number] December, [facility] [place] [facility] [address] [facility] [id number] [place] [address]- 1086 December, [facility] [address] [facility] [id number], [place] 037632270 Nov, [facility] [place] [facility] [address] [facility] [id number] [place] [address]- 8716 Nov, [facility] [address] [facility] [id number], [place] 898996825 Nov, [facility] [place] [facility] [address] [facility] [id number] [address]- 1660 Nov, [facility] [place] [facility] [address] [facility] [id number] [place] [address]- 9505 Nov, [facility] [place] [facility] [address] [facility] [id number] [place] [address]- 9186 Nov, [facility] [place] [facility] [address]00565100[place] [address]- 2077 Oct, [facility] [id number], [place] 549199482 Oct, [facility] [place] [facility] [address]00565100[place] [address]- 2665 Oct, [facility] [id number], [place] [id number] Oct, [facility] [place] [facility] [address] [id number] [address]- 3481 Oct, [facility] [address] [facility] [id number], [place] [id number] Sep, [facility] [place] [facility] [address] [facility] [id number] [place] [address]- 6086 Sep, [facility] [address] [facility] [id number], [place] 978896125 Aug, [facility] [place] [facility] [address] [facility] [id number] [place] [address] Aug, [facility] [address] [facility] [id number][place] [id number] Aug, [facility] [place] [facility] [address] [facility] [id number] [place] [address] Aug, [facility] [place] [facility] [address] [facility] [id number] [place] [address] Aug, [facility] [address] [facility] [id number] [place] [id number] Aug, [facility] [place] [facility] [address] [facility] [id number] [place] [address] Aug, [facility] [place] [facility] [address] [facility] [id number] [place] [address] Aug, [facility] [address] [facility] [id number] [place] [id number] Aug, [facility] [place] [facility] [address]00565100[place] [address] Aug, [facility] [id number][place] [id number] Jul, [facility] [place] [facility] [address] [facility] [id number] [address] Jul, [facility] [address] [facility] [id number][place] [id number] Jul, [facility] [place] [facility] [address] [facility] [id number] [place] [address] Jul, [facility] [address] [facility] [id number][place] [id number] Jul, [facility] [place] [facility] [address] [facility] [id number] [place] [address] Jul, [facility] [address] [facility] [id number][place] [id number] Jul, [facility] [place] [facility] [address] [facility] [id number] [place] [address] Jul, [facility] [address] [facility] [id number] [place] [id number] Jun, [facility] [place] [facility] [address] [facility] [id number] [place] [address] Jun, [facility] [address] [id number] [place] [id number] Jun, [facility] [address] [facility] [id number] [place] [address] Jun, [facility] [address] [facility] [id number] [place] [address] Jun, [facility] [address] [facility] [id number] [place] [address] Jun, [facility] [address] [id number] [place] [id number] Apr, [facility] [address] [id number] [place] [id number] Mar, [facility] [address] [id number] [place] [id number] Mar, [facility] [address] [id number] [place] [id number] Feb, [facility] [address] [id number] [place] [id number] Feb, [facility] [address] [id number] [place] [id number] Feb, [facility] [address] [id number] [place] [id number] December, [facility] [address] [id number] [place] [id number] December, [facility] [address] [facility] [id number] [place] [address] December, [facility] [address] [id number] [place] [id number] December, [facility] [address] [id number] [place] [id number] December, [facility] [address] [id number] [place] [id number] Nov, [facility] [address] [id number] [place] [address] Nov, [facility] [address] [id number] [place] [address] Nov, [facility] [address] [id number] [place] [address] Oct, [facility] [address] [id number] [place] [id number] Sep, [facility] [address] [id number] [place] [id number] Aug, [facility] [address] [facility] [id number] [place] [address] Aug, [facility] [address] [id number] [place] [id number] Aug, [facility] [address] [id number] [place] [id number] Jul, [facility] [place] [facility] [address]00565100[place] [address] Jul, [facility] [address] [id number][place] [id number] Jul, [facility] [place] [facility] [address]65100[place] [address] Jul, [facility] [address] [facility] [id number], [place] [id number] Jun, [facility] [place] [facility] [address]65100[place] [address] Jun, [facility] [address] [facility] [id number][place] [id number] May, [facility] [place] [facility] [address] [facility] [id number] [place] [address] May, [facility] [address] [id number][place] [id number] May, [facility] [place] [facility] [address] [facility] [id number] [place] [address] May, [facility] [address] [id number], [place] [id number] Apr, [facility] [address] [id number], [place] [id number] Apr, [facility] [place] [address] [id number] [place] [id number] Mar, [facility] [place] [address] [id number] [place] [address] Mar, [facility] [place] [address] [id number] [place] [address] Feb, [facility] [place] [address] [id number] [place] [address] Feb, [facility] [place] [address] [id number] [place] [address] Jan, [facility] [place] [address] [id number] [place] [id number] Jan, [facility] [address] [id number] [place] [address] Jan, [facility] [address] [id number] [place] [id number] Jan, [facility] [place] [address] [id number] [place] [id number] December, [facility] [place] [address] [id number] [place] [id number] December, [facility] [address] [facility] [id number] [address] Nov, [facility] [place] [address] [id number] [place] [id number] Nov, [facility] [place] [address] [id number] [place] [id number] Nov, [facility] [place] [address] [id number] [place] [id number] Nov, [facility] [place] [address] [id number] [place] [id number] Nov, [facility] [address] [facility] [id number] [place] [address] Oct, [facility] [address] [facility] [id number] [address] Oct, [facility] [address] [id number] [id number] Oct, [facility] [place] [address] [id number] [place] [id number] Oct, [facility] [place] [address] [id number] [place] [id number] Oct, [facility] [place] [address] [id number] [place] [id number] Oct, [facility] [place] [address] [id number] [place] [id number] Oct, [facility] [place] [address] [id number] [place] [id number] Oct, [facility] [place] [address] [id number] [place] [id number] Oct, [facility] [address] [id number] [address] Oct, [facility] [address] [id number] [place] [id number] Sep, [facility] [place] [address] [id number] [place] [id number] Sep, [facility] [address] [id number] [place] [id number] Aug, [facility] [address] [id number] [place] [id number] Aug, [facility] [address]65[address] [address] Jul, [facility] [address] [id number] [address] Jul, [facility] [address] [id number] [address] Jul, [facility] [id number] [place] [address] Jul, [facility] [id number] [address] Jul, [facility] [id number] [place] [address] Jul, [facility] [address] [id number] [address] Jul, [facility] [id number] [address] Jul, [facility] [address] [id number] [address] Jul, [facility] [id number] [address] Jul, [facility] [id number] [address] Jul, [facility] [id number] [address] Jul, [facility] [address]65[address] [address] Jul, [facility] [address] [id number] [address] Jul, IMMUNIZATIONS No Known Immunizations SOCIAL HISTORY Never Assessed REASON FOR VISIT PLAN OF CARE VITAL SIGNS MEDICATIONS Unknown Medications RESULTS No Results PROCEDURES No Known procedures INSTRUCTIONS MEDICATIONS ADMINISTERED No Known Medications MEDICAL (GENERAL) HISTORY Type Description Date Medical History peripheral vascular disease s/p angioplasty w/ stent R leg Medical History hypertension Medical 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
--- OUTSIDE RECORDS SUMMARY | 2018-06-20 10:48 | XMS REPORT ---
Author Author ARIELLE DE DIOS Organization [facility] Address [address] [place] [address] Care Team Providers Care Section Supervisor Name Role Phone ARIELLE DE DIOS Unavailable PROBLEMS Type Condition ICD9-CM Code SSR76-PZ Code Onset Dates Condition Status SNOMED Code Problem Peripheral vascular disease I73.9 Active 521754094 Problem Coronary artery disease involving [place] coronary artery of [place]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 Active [id number] Problem S/P coronary artery stent placement Z95.5 Active 296112677 Problem Chronic obstructive pulmonary disease, unspecified COPD type J44.9 Active 49100582 Problem Type 2 diabetes mellitus with diabetic neuropathy E11.40 Active 85745225 Problem Bilateral low back pain without sciatica M54.5 Active 706255761 Problem 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 Active 245227953 Problem 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 Active 712821614 Problem Hypercholesterolemia E78.0 Active 98976008 Problem Comprehensive diabetic foot examination, type 2 DM, encounter for E11.9 Active 09681159 Problem Type 2 diabetes mellitus with diabetic polyneuropathy E11.42 Active 993280689 Problem Obesity (BMI 30.0-34.9) E66.9 Active 488543888589860 Problem Personal history of carotid stenosis Z86.79 Active 553672985 Problem Aphasia R47.01 Active 49569722 Problem Chronic diarrhea K52.9 Active 681568239 Problem Uses walker Z99.89 Active 528186537 Problem Chronic fatigue R53.82 Active 09239273 Problem Mixed stress and urge urinary incontinence N39.46 Active 442115671 Problem Chronic pain syndrome G89.4 Active 967780543 Problem High risk medication use Z79.899 Active 965642852 Problem Osteomyelitis of right foot, unspecified chronicity M86.9 Active 68834298 Problem Fatigue, unspecified type R53.83 Active 46612431 Problem Diabetes type 2, uncontrolled E11.65 Active 860379603 Problem Full incontinence of feces R15.9 Active 947940716236244 Problem Other chronic pain G89.29 Active 87805784 Problem Functional diarrhea K59.1 Active 47902079 Problem Fecal urgency R15.2 Active 56067413 Problem Depression F32.9 Active 72656703 Problem CKD (chronic kidney disease), stage 3 (moderate) N18.3 Active 027774424 Problem Hyperlipidemia, unspecified hyperlipidemia E78.5 Active 51527917 Problem CKD (chronic kidney disease) stage 3, GFR 30-59 ml/min N18.3 Active 956101016 Problem Type 2 diabetes mellitus with diabetic peripheral angiopathy without gangrene E11.51 Active 224769424 Problem Pain in left shoulder M25.512 Active 78352740 Problem Insulin long-term use Z79.4 Active 005191510 Problem Essential hypertension I10 Active 62168860 Problem Type 2 diabetes mellitus with diabetic retinopathy, macular edema presence unspecified, with unspecified retinopathy severity E11.319 Active 82253390 Problem Chronic kidney disease, unspecified N18.9 Active 041520452 Problem Type 2 diabetes mellitus with foot ulcer E11.621 Active 886236144 Problem Frequent falls R29.6 Active 666142847 Problem GERD without esophagitis K21.9 Active 802676659 Problem Mixed hyperlipidemia E78.2 Active 781064949 ALLERGIES No Information ENCOUNTERS Encounter Location Date Diagnosis [facility] [place] [id number] [place] [address] Apr Other [facility] pain G89.29 [facility] [address] [id number] [place] [id number] Apr, [facility] [address] [id number] [place] [id number] Apr, Essential hypertension I10 [facility] [place] [address] [id number] [place] [id number] Mar, Other chronic pain G89.29 [facility] [place] [address] [id number] [place] [id number] Mar, [facility] [place] [address] [id number] [place] [id number] Feb, Other chronic pain G89.29 [facility] [place] [address] [id number] [place] [id number] Feb, Diabetes type 2, uncontrolled E11.65 ; Type 2 diabetes mellitus with diabetic retinopathy, macular edema presence unspecified, with unspecified retinopathy severity E11.319 and Bilateral low back pain without sciatica M54.5 [facility] [id number] [place] [address] [id number] Feb, [facility] [id number] [place] [address] [id number] Feb, Diabetes type 2, uncontrolled E11.65 [facility] [id number] [place] [address] [id number] Feb, Other chronic pain G89.29 [facility] [id number] [place] [address] [id number] Jan, [facility] [id number] [place] [address] [id number] Jan, [facility] [id number] [place] [address] [id number] Jan, [facility] [id number] [place] [address] [id number] Jan, Other chronic pain G89.29 [facility] [id number] [place] [address] [id number] December, Mixed stress and urge urinary incontinence N39.46 [facility] [id number] [place] [address] [id number] December, Chronic fatigue R53.82 [facility] [id number] [place] [address] [id number] December, Other chronic pain G89.29 [facility] [id number] [place] [address] [id number] December, Diabetes type 2, uncontrolled E11.65 ; [...] type J44.9 and Other chronic pain G89.29 [facility] [address]00565100[place] [address] December, [address] [place] [address] [id number] December, Medicare annual wellness visit, subsequent Z00.00 ; Type 2 diabetes mellitus with diabetic polyneuropathy E11.42 ; Chronic obstructive pulmonary disease, unspecified COPD type J44.9 ; Depression F32.9 ; Peripheral vascular disease I73.9 ; Coronary artery disease involving [place] coronary artery of [place]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 ; Hypercholesterolemia E78.0 ; GERD without esophagitis K21.9 and Chronic kidney disease, unspecified N18.9 [address] [place] [address] [id number] December, Mixed stress and urge urinary incontinence N39.46 ; Full incontinence of feces R15.9 ; Fecal urgency R15.2 ; Functional diarrhea K59.1 and Type 2 diabetes mellitus with diabetic neuropathy E11.40 [address] [place] [address] [id number] Nov, Other chronic pain G89.29 [address] [place] [address] [id number] Oct, [place] [id number] [place] [address] [id number] Oct, [place] [id number] [place] [address] [id number] Oct, Other chronic pain G89.29 [address] [place] [address] [id number] Sep, Other chronic pain G89.29 [address] [place] [address] [id number] Aug, CKD (chronic kidney disease), stage 3 (moderate) N18.3 ; Anemia, unspecified type D64.9 and Dilated pore of Ly L70.8 [place] [id number] [id number] Aug, Other chronic pain G89.29 ; Pain in left shoulder M25.512 ; High risk medication use Z79.899 ; Uses walker Z99.89 ; Diabetes type 2, uncontrolled E11.65 and Depression F32.9 [facility] [id number] [place] [address] [id number] Aug, Chronic diarrhea K52.9 [place] [id number] [place] [address] [id number] Aug, Chronic diarrhea K52.9 ; Type 2 diabetes mellitus with diabetic neuropathy E11.40 ; Diabetes type 2, uncontrolled E11.65 ; Insulin long-term use Z79.4 ; Chronic obstructive pulmonary disease, unspecified COPD type J44.9 ; Chronic pain syndrome G89.4 ; Pain in left shoulder M25.512 ; Uses walker Z99.89 ; S/P coronary artery stent placement Z95.5 ; Mixed hyperlipidemia E78.2 and Essential hypertension I10 [address] [place] [address] [id number] Aug, [place] [id number] [place] [address] [id number] Jul, Diabetes type 2, uncontrolled E11.65 [place] [address] [place] [address] [id number] Jul, Diabetes type 2, uncontrolled E11.65 ; Type 2 diabetes mellitus with diabetic neuropathy E11.40 ; Insulin long-term use Z79.4 and Chronic obstructive pulmonary disease, unspecified COPD type J44.9 [address] [id number] Jun, [address] [place] [address] [id number] Jun, Essential hypertension I10 [place] [address] [place] [address] [id number] Jun, Essential hypertension I10 [address] [place] [address] [id number] Jun, Type 2 diabetes mellitus with diabetic neuropathy E11.40 ; Type 2 diabetes mellitus with diabetic polyneuropathy E11.42 ; S/P coronary artery stent placement Z95.5 ; Obesity (BMI 30.0-34.9) E66.9 ; Mixed hyperlipidemia E78.2 ; Frequent falls R29.6 ; Chronic obstructive pulmonary disease, unspecified COPD type J44.9 ; Essential hypertension I10 ; Insulin long-term use Z79.4 and High risk medication use Z79.899 [address] [place] [address] [id number] May, Diarrhea, unspecified type R19.7 ; Type 2 diabetes mellitus with diabetic neuropathy E11.40 ; Chronic obstructive pulmonary disease, unspecified COPD type J44.9 ; S/P coronary artery stent placement Z95.5 ; High risk medication use Z79.899 ; Essential hypertension I10 ; Encounter for administration of vaccine Z23 and Encounter for immunization Z23 [address] [id number] [id number] May, Chronic obstructive pulmonary disease, unspecified COPD type J44.9 [address] [place] [address] [id number] May, Type 2 diabetes mellitus with diabetic polyneuropathy E11.42 ; Encounter for immunization Z23 ; Needs flu shot Z23 ; Comprehensive diabetic foot examination, type 2 DM, encounter for E11.9 and Obesity (BMI 30.0-34.9) E66.9 [address] [place] [address] [id number] May, [address] [place] [address] [id number] Apr, [place] [id number] [place] [address] [id number] Apr, Essential hypertension I10 and Aphasia R47.01 [place] [id number] [place] [address] [id number] Apr, [address] [id number] Apr, Type 2 diabetes mellitus with diabetic neuropathy E11.40 ; Frequent falls R29.6 ; Essential hypertension I10 ; S/P coronary artery stent placement Z95.5 ; High risk medication use Z79.899 ; Hyperlipidemia, unspecified hyperlipidemia E78.5 ; CKD (chronic kidney disease), stage 3 (moderate) N18.3 ; Pain in left shoulder M25.512 and Chronic obstructive pulmonary disease, unspecified COPD type J44.9 [facility] [id number] [place] [address] [id number] Mar, [facility] [id number] [place] [address] [id number] Mar, Type 2 diabetes mellitus with diabetic polyneuropathy E11.42 ; Leg wound, left, initial encounter S81.802A ; Hx of shoulder surgery Z98.890 ; Acute pain of left shoulder M25.512 and Fall, initial encounter W19.XXXA [facility] [place] [address] [id number] Feb, Follow-up exam Z09 ; Hx of shoulder surgery Z98.890 ; Acute pain of left shoulder M25.512 ; Essential hypertension I10 and Leg wound, left, initial encounter S81.802A [facility] [id number] [place] [address] [id number] Feb, [facility] [id number] [place] [address] [id number] Feb, [facility] [id number] [place] [address] [id number] Feb, Chronic obstructive pulmonary disease, unspecified COPD type J44.9 [facility] [id number] [place] [address] [id number] Feb, [facility] [id number] [place] [address] [id number] Jan, Generalized weakness R53.1 ; Exertional shortness of breath R06.02 and Fungal rash of trunk B36.9 [facility] [place] [id number] [place] [address] [id number] Jan, [facility] [id number] [place] [address] [id number] Jan, [facility] [id number] [place] [address] [id number] Jan, [facility] [id number] [place] [address] [id number] Jan, [address] [id number] [place] [id number] December, High risk medication use Z79.899 [address]100[place] [id number] December, Type 2 diabetes mellitus with diabetic neuropathy E11.[address] [id number] [place] [id number] December, High risk medication use Z79.899 [address] [place] [address] [id number] Nov, Diabetes type 2, uncontrolled E11.65 [address] [place] [address] [id number] Nov, Medicare annual wellness visit, initial Z00.00 ; Bilateral low back pain without sciatica M54.5 ; Pain in left shoulder M25.512 ; Chronic pain syndrome G89.4 ; Type 2 diabetes mellitus with diabetic polyneuropathy E11.42 ; High risk medication use Z79.899 and Encounter for immunization Z23 [address] [place] [address] [id number] Nov, Type 2 diabetes mellitus with diabetic neuropathy E11.40 ; Coronary artery disease involving [place] coronary artery of [place]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 and CKD (chronic kidney disease), stage 3 (moderate) N18.[address] [id number] [place] [id number] Oct, Type 2 diabetes mellitus with diabetic polyneuropathy E11.42 ; Chronic pain syndrome G89.4 ; Chronic obstructive pulmonary disease, unspecified COPD type J44.9 ; Chronic kidney disease, unspecified N18.9 and Rash R21 [address] [address] [facility] [id number] [id number] Oct, Type 2 diabetes mellitus with diabetic neuropathy E11.[address] [id number] [place] [id number] Oct, Rash R21 and Impetigo L01.[id number] [place] [address] [id number] Oct, Chronic pain syndrome G89.4 [facility] [id number] [place] [id number] Oct, [facility] [id number] [place] [address] [id number] Sep, Sebaceous cyst L72.3 [facility] [id number] [place] [id number] Sep, Sebaceous cyst L72.3 [facility] [id number] [place] [address] [id number] Sep, Chronic pain syndrome G89.4 ; Pain in left shoulder M25.512 and Effusion of olecranon bursa, left M25.422 [facility] [address] [address] Aug, [facility] [id number] [place] [address] [id number] Aug, [facility] [id number] [place] [address] [id number] Aug, Mixed hyperlipidemia E78.2 and Chronic kidney disease, unspecified N18.9 [facility] [id number] [place] [address] [id number] Jul, Type 2 diabetes mellitus with diabetic neuropathy E11.40 ; Essential hypertension I10 and S/P coronary artery stent placement Z95.5 [facility] [id number] [place] [address] [id number] Jul, 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 [place] [id number] [place] [address] [id number] Jul, Diabetes type 2, uncontrolled E11.65 ; Essential hypertension I10 and 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 [facility] [id number] [place] [id number] Jul, [facility] [id number] [place] [address] [id number] Jul, [address] [place] [address] [id number] Jul, [facility] [id number] [place] [address] [id number] Jul, Chronic obstructive pulmonary disease, unspecified COPD type J44.9 [place] [address] [place] [address] [id number] Jun, CKD (chronic kidney disease), stage 3 (moderate) N18.3 and Anemia, unspecified type D64.9 [place] [address] [place] [address] [id number] Jun, Type 2 diabetes mellitus with diabetic neuropathy E11.40 ; Decreased GFR R94.4 ; CKD (chronic kidney disease), stage 3 (moderate) N18.3 and Decreased hemoglobin R71.0 [place] [address] [place] [address] [id number] Jun, CKD (chronic kidney disease), stage 3 (moderate) N18.3 and Anemia, unspecified type D64.9 [place] [address] [place] [address] [id number] Jun, Type 2 diabetes mellitus with diabetic neuropathy E11.40 ; Decreased GFR R94.4 and CKD (chronic kidney disease), stage 3 (moderate) N18.3 [place] [address] [place] [address] [id number] Jun, Type 2 diabetes mellitus with diabetic neuropathy E11.40 and Essential hypertension I10 [place] [address] [place] [address] [id number] Jun, [place] [address] [place] [address] [id number] Jun, [place] [address] [place] [address] [id number] Jun, Type 2 diabetes mellitus with diabetic neuropathy E11.40 ; S/P coronary artery stent placement Z95.5 ; Chronic obstructive pulmonary disease, unspecified COPD type J44.9 ; Essential hypertension I10 ; GERD without esophagitis K21.9 ; Peripheral vascular disease I73.9 ; Mixed hyperlipidemia E78.2 and Hospital discharge follow-up Z09 [place] [id number] [place] [address] [id number] Jun, [address] [id number] May, Depression F32.9 and Hyperlipidemia, unspecified hyperlipidemia E78.5 [facility] [address] [id number] [address] May, [address] [place] [address] [id number] May, [address] [place] [address] [id number] May, Essential hypertension I10 ; Chronic pain syndrome G89.4 ; Pain in left shoulder M25.512 ; High risk medication use Z79.899 ; Chronic obstructive pulmonary disease, unspecified COPD type J44.9 ; S/P coronary artery stent placement Z95.5 ; Personal history of carotid stenosis Z86.79 ; Hyperlipidemia, unspecified hyperlipidemia E78.5 ; Decreased GFR R94.4 and Type 2 diabetes mellitus with diabetic polyneuropathy E11.42 [address] [place] [address] [id number] May, Hemoglobin decreased R71.0 and Decreased GFR R94.4 [address] [place] [address] [id number] May, Hemoglobin decreased R71.0 and Decreased GFR R94.4 [place] [id number] [place] [address] [id number] May, [address] [place] [address] [id number] May, [address] [place] [address] [id number] Apr, [address] [place] [address] [id number] Apr, Type 2 diabetes mellitus with foot [...] unspecified hyperlipidemia E78.5 and Essential hypertension I10 [facility] [id number] [place] [address] [id number] Apr, [facility] [id number] [place] [address] [id number] Mar, [facility] [id number] [place] [address] [id number] Mar, [facility] [address] [address] Mar, [facility] [id number] [place] [address] [id number] Feb, [facility] [id number] [place] [address] [id number] Feb, [facility] [id number] [place] [address] [id number] Feb, [facility] [id number] [place] [address] [id number] Jan, Type 2 diabetes mellitus with diabetic polyneuropathy E11.42 ; Hypercholesterolemia E78.0 ; Chronic pain syndrome G89.4 ; Pain in left shoulder M25.512 and High risk medication use Z79.899 [facility] [id number] [place] [address] [id number] Jan, [facility] [id number] [place] [address] [id number] Jan, [facility] [id number] [place] [address] [id number] December, [facility] [id number] [place] [address] [id number] December, [facility] [address] [place] [address]- 4980 December, Diabetes type 2, uncontrolled E11.65 ; Type 2 diabetes mellitus with diabetic neuropathy E11.40 ; Peripheral vascular disease I73.9 ; 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 and 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 [facility] [id number] [place] [address] [id number] Nov, [facility] [address] [id number] [place] [id number] Nov, [facility] [address] [id number] [place] [id number] Nov, [facility] [id number] [place] [address] [id number] Nov, Right hip pain M25.551 [facility] [id number] [place] [address]- 3755 Nov, [facility] [id number] [place] [address] 48566- 2546 Nov, [facility] [place] [id number] [place] [address] [id number] Nov, Diabetes with neurological manifestations, type II or unspecified type, 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.60 [facility] [id number] [place] [address] [id number] Nov, [facility] [place] [id number] [place] [address] [id number] Nov, [facility] [place] [id number] [place] [address] [id number] Oct, Diabetes type 2, uncontrolled E11.65 ; Type 2 diabetes mellitus with diabetic neuropathy, unspecified E11.40 and Low back pain M54.5 [facility] [id number] [place] [address] [id number] Oct, [facility] [address] [id number] [place] [id number] Oct, [facility] [address] [id number] [place] [id number] Oct, [facility] [place] [id number] [place] [address] [id number] Sep, [facility] [id number] [place] [address] [id number] Sep, [facility] [address] [place] [address] 38[address]- 2546 Sep, [facility] [id number] [place] [address] [id number] Sep, [facility] [address] [facility] [id number] [place] [id number] Sep, [facility] [id number] [place] [address] [id number] Aug, 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 [facility] [address] [place] [address] [id number] [place] [id number] Aug, [facility] [id number] [place] [address] [id number] Aug, Allergic rhinitis due to pollen J30.[address] [id number][place] [id number] Jul, [facility] [id number] [place] [address] [id number] Jul, [facility] [id number] [place] [address] [id number] Jul, [place] [id number] [place] [place] [address] [id number] Jun, [facility] [id number] [place] [address] [id number] Jun, Thumb tendonitis M77.8 and Ringing in ear, bilateral H93.[address] [id number] [id number] Jun, [facility] [address] [id number] [place] [id number] May, [facility] [id number] [place] [address] 94412- 2546 May, [facility] [id number] [place] [address] 64005- 2540 May, Pre-op evaluation Z01.818 ; Encounter for immunization Z23 ; Type 2 diabetes mellitus with diabetic peripheral angiopathy without gangrene E11.51 ; Insulin long-term use Z79.4 ; Type 2 diabetes mellitus with foot ulcer E11.621 ; Peripheral vascular disease I73.9 ; Coronary artery disease involving [place] coronary artery of [place]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 ; S/P coronary artery stent placement Z95.5 ; Osteomyelitis of right foot, unspecified chronicity M86.9 and Chronic obstructive pulmonary disease, unspecified COPD type J44.9 [facility] [address] [address]- [address] May, [facility] [id number] [place] [address] [id number] May, [facility] [address] [id number] May, Diabetes type 2, uncontrolled E11.65 ; Encounter for immunization Z23 ; Osteopenia M85.80 and Allergic rhinitis due to pollen J30.1 [facility] [address] [id number] May, Lumbago 724.2 [facility] [id number] [place] [address] [id number] Apr, [address] [id number] Apr, [facility] [id number] [place] [address] [id number] Apr, [facility] [id number] [place] [address] [id number] Apr, [facility] [id number] [place] [address] 56770- 8148 Mar, [facility] [id number] [place] [address] [id number] Mar, [facility] [id number] [place] [address] [id number] Mar, [facility] [id number] [place] [address] [id number] Mar, [facility] [address] [id number] Mar, [facility] [id number] [place] [address] [id number] 1885 Mar, [facility] [id number] [place] [address] [id number] Mar, [facility] [address] [id number] [place] [id number] Mar, Diabetes with neurological manifestations, type II or unspecified type, 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.60 and Severe obesity (BMI 35.0-35.9 with comorbidity) 278.01 [facility] [address] [id number] [place] [id number] Mar, [facility] [address] [address]398- 2546 Mar, [facility] [id number] [place] [address] 18121- 2546 Feb, [facility] [id number] [place] [address] [id number] Feb, [facility] [address] [id number] [place] [id number] Feb, [facility] [address] [id number] [place] [address] [id number] Feb, Diabetes with neurological manifestations, type II or unspecified type, 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.60 [facility] [address] [id number] [place] [id number] Feb, [facility] [id number] [place] [address] 94740- 2546 Feb, [facility] [id number] [place] [id number] Feb, [facility] [id number] [place] [id number] Feb, Follow up V67.9 ; Diabetes with neurological manifestations, type II or unspecified type, 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.60 and Congestive heart failure 428.0 [facility] [address] [id number] [place] [id number] Jan, [facility] [address] [id number] [place] [id number] Jan, [facility] [address] [id number] [place] [id number] Jan, [facility] [address] [id number] [place] [address] [id number] December, Otitis media with effusion 381.4 ; Left arm numbness 782.0 and Osteoporosis 733.00 [facility] [id number] [place] [id number] December, [facility] [address] [id number] [place] [id number] Nov, [facility] [id number] [place] [id number] Nov, Serous otitis media 381.4 and Lumbago 724.2 [facility] [id number] [place] [address] 76516- 0516 Nov, [facility] [id number] [place] [address] 73054- 2436 Nov, [facility] [id number] [place] [id number] Oct, [facility] [address]00565100[place] [address]- 0626 Oct, [facility] [id number] [place] [id number] Oct, [facility] [id number] [place] [address] 19581- 5565 Oct, [facility] [address] [id number] [place] [id number] Oct, [facility] [address]00565100[place] [address]- 5856 Oct, [facility] [facility] [address]00565100[place], [place] [address]- 0706 Sep, [facility] [place] [facility] [address]00565100[place] [address]- 9746 Sep, [facility] [address] [id number] [place] [id number] Sep, [facility] [address]00565100[place] [address]- 0206 Sep, [facility] [address] [id number] [place] [id number] Aug, [facility] [place] [address] [facility] [id number] [address]- 3262 Aug, [facility] [address] [facility] [id number] [place] [id number] Aug, [facility] [address] [facility] [id number] [address]- 4999 Aug, [facility] [address] [facility] [id number] [place] [id number] Jul, [facility] [place] [address] [facility] [id number][place] [address]- 3668 Jul, [facility] [address] [facility] [id number] [place] [id number] Jul, [facility] [place] [facility] [address]00565100[place] [address]- 3879 Jul, [facility] [address] [facility] [id number] [place] [id number] Jul, [facility] [place] [address] [facility] [id number][place] 676807- 3479 Jul, [facility] [address] [id number] [place] [id number] Jun, [facility] [place] [facility] [address]00565100[place] [address]- 4883 Jun, [facility] [address] [facility] [id number] [place] [id number] May, [facility] [place] [address] [facility] [id number][place] [address]- 7417 May, [facility] [address] [facility] [id number] [place] [id number] May, [facility] [place] [address] [facility] [id number][place] [address]- 5648 May, [facility] [address] [facility] [id number] [place] [id number] May, [facility] [place] [facility] [address] [facility] [id number], [place] [address]- 0448 May, [facility] [address] [id number] [place] [id number] May, [facility] [address] [facility] [id number] [place] [id number] May, [facility] [place] [address] [facility] [id number][place] [address]- 2969 May, [facility] [address] [facility] [id number][place] [address]- 3543 May, [facility] [address] [facility] [id number] [place] [id number] May, [facility] [place] [address] [facility] [id number][place] [address]- 7019 May, [facility] [place] [address]00565100[place], [place] [address]- 1820 Apr, [facility] [address] [facility] [id number] [place] [id number] Apr, [facility] [place] [facility] [address] [facility] [id number][place] [address]- 4468 Apr, [facility] [address] [facility] [id number] [place] [id number] Apr, [facility] [address] [facility] [id number] [place], [place] [id number] Apr, [facility] [place] [address] [facility] [id number], [place] [address]- 8328 Apr, [facility] [address] [facility] [id number][place] [address]- 7150 Apr, [facility] [address] [facility] [id number] [place] [id number] Apr, [facility] [address] [facility] [id number][place] [address]- 6117 Apr, [facility] [address] [facility] [id number] [place] [id number] Apr, [facility] [address] [facility] [id number] [address]- 3929 Apr, [facility] [address] [facility] [id number] [place] [id number] Apr, [facility] [place] [address] [facility] [id number][place] [address]- 4821 Apr, [facility] [address] [facility] [id number] [place] [id number] Apr, [facility] [place] [address] [facility] [id number][place] [address]- 4537 Apr, [facility] [address] [facility] [id number] [place] [id number] Apr, [facility] [place] [address]00565100[place], [place] [address]- 1365 Apr, [facility] [address] [facility] [id number] [place] [id number] Apr, [facility] [place] [facility] [address]00565100[place], [place] [address]- 3827 Apr, [facility] [address] [facility] [id number] [place] [id number] Mar, [facility] [place] [facility] [address]00565100[place], [place] [address]- 3963 Mar, [facility] [address] [id number] [place] [id number] Mar, [facility] [address] [id number] [place] [id number] Mar, [facility] [place] [address] [facility] [id number][place] [address]- 7249 Mar, [facility] [facility] [address] [facility] [id number][place] [address]- 5391 Mar, [facility] [address] [facility] [id number] [place] [id number] Mar, [facility] [place] [facility] [address] [facility] [id number][place] [address]- 9145 Mar, [facility] [address] [id number] [place] [id number] Mar, [facility] [place] [facility] [address] [id number] [place] [address]- 6503 Mar, [facility] [address] [id number] [place] [id number] Mar, [facility] [place] [facility] [address] [facility] [id number] [place] [address]- 0567 Mar, [facility] [address] [id number] [place] [id number] Mar, [facility] [place] [facility] [address] [facility] [id number] [place] [address]- 8755 Mar, [facility] [address] [id number] [place] [id number] Mar, [facility] [place] [facility] [address] [facility] [id number][place] [address]- 9702 Mar, [facility] [address] [id number] [place] [id number] Mar, [facility] [place] [facility] [address] [facility] [id number][place] [address]- 5629 Mar, [facility] [address] [facility] [id number] [place] [id number] Mar, [facility] [place] [facility] [address] [facility] [id number][place] [address]- 0047 Mar, [facility] [address] [id number] [place] [id number] Feb, [facility] [place] [facility] [address] [facility] [id number] [place] [address]- 2832 Feb, [facility] [address] [id number] [place] [id number] Feb, [facility] [place] [facility] [address] [facility] [id number], [place] 79613630- 4313 Feb, [facility] [address] [id number] [place] [id number] Feb, [facility] [place] [facility] [address] [id number] [place] [address]- 0585 Feb, [facility] [address] [id number] [place] [id number] Feb, [facility] [place] [facility] [address] [id number] [place] [address]- 0898 Feb, [facility] [address] [id number] [place] 899974359 Feb, [facility] [place] [facility] [address] [id number] [place] [address]- 8046 Feb, [facility] [address] [id number] [place] [id number] Feb, [facility] [place] [facility] [address] [facility] [id number] [place] [address]- 4479 Feb, [facility] [address] [id number] [place] [id number] Feb, [facility] [place] [facility] [address] [facility] [id number] [place] [address]- 4131 Feb, [facility] [address] [id number] [place] [id number] Feb, [facility] [place] [facility] [address] [facility] [id number] [place] [address]- 9196 Feb, [facility] [address] [id number] [place] 300013735 Feb, [facility] [place] [facility] [address] [facility] [id number] [place] [address]- 2084 Feb, [facility] [address] [id number] [place] 568916918 Feb, [facility] [address] [id number] [place] 760901118 Feb, [facility] [place] [facility] [address] [facility] [id number] [place] [address]- 6076 Feb, [facility] [place] [facility] [address] [facility] [id number] [place] [address]- 5800 Feb, [facility] [address] [id number] [place] [id number] Feb, [facility] [place] [facility] [address] [id number] [place] [address]- 2593 Feb, [facility] [address] [id number] [place] [id number] Feb, [facility] [place] [facility] [address] [id number] [place] [address]- 3309 Feb, [facility] [address] [id number] [place] [id number] Feb, [facility] [place] [facility] [address] [id number] [place] [address]- 1958 Feb, [facility] [address] [id number] [place] [id number] Jan, [facility] [place] [facility] [address] [id number] [place] [address]- 1375 Jan, [facility] [place] [facility] [address] [id number] [place] [address]- 9150 Jan, [facility] [place] [facility] [address] [id number] [place] [address]- 0778 Jan, [facility] [place] [facility] [address] [facility] [id number] [place] [address]- 9241 Jan, [facility] [place] [facility] [address] [id number] [place] [address]- 4653 Jan, [facility] [address] [id number] [place] [id number] Jan, [facility] [place] [facility] [address] [id number] [place] [address]- 5636 Jan, [facility] [place] [facility] [address] [id number] [place] 84014694- 6524 Jan, [facility] [place] [facility] [address] [id number] [place] [address]- 8621 Jan, [facility] [address] [id number] [place] [id number] Jan, [facility] [address] [id number] [place] [id number] Jan, [facility] [place] [facility] [address] [id number] [place] [address]- 8676 Jan, [facility] [place] [facility] [address] [facility] [id number] [place] [address]- 2546 Jan, [facility] [address] [id number] [place] [id number] Jan, [facility] [address] [id number] [place] [id number] Jan, [facility] [place] [facility] [address] [facility] [id number] [place] [address]- 8006 Jan, [facility] [place] [facility] [address] [facility] [id number] [place] [address]- 5456 Jan, [facility] [place] [facility] [address] [facility] [id number][place] [address]- 2596 Jan, [facility] [address] [id number] [place] [id number] December, [facility] [place] [facility] [address] [facility] [id number][place] [address]- 7576 December, [facility] [place] [facility] [address] [facility] [id number], [place] [address]- 0126 December, [facility] [address] [id number] [place] 616754584 December, [facility] [place] [facility] [address] [id number] [place] [address]- 3606 December, [facility] [address] [id number] [place] [id number] December, [facility] [place] [facility] [address] [facility] [id number] [place] [address]- 2546 December, [facility] [address] [id number] [place] [id number] December, [facility] [place] [facility] [address] [facility] [id number] [place] [address]- 3386 December, [facility] [address] [facility] [id number] [place] [id number] Nov, [facility] [place] [facility] [address] [facility] [id number] [place] [address]- 9486 Nov, [facility] [address] [facility] [id number] [place] 847623028 Nov, [facility] [place] [facility] [address] [facility] [id number] [place] [address]- 8072 Nov, [facility] [place] [facility] [address] [facility] [id number] [place] [address]- 1407 Nov, [facility] [place] [facility] [address] [facility] [id number] [place] [address]- 4076 Nov, [facility] [place] [facility] [address] [address]- 4647 Oct, [facility] [address] [facility] [id number] [place] [id number] Oct, [facility] [place] [facility] [address] [id number] [place] [address]- 7343 Oct, [facility] [address] [facility] [id number] [place] 611814857 Oct, [facility] [place] [facility] [address] [id number], [place] [address]- 3116 Oct, [facility] [address] [facility] [id number] [place] 027721298 Sep, [facility] [place] [facility] [address] [facility] [id number] [place] [address]- 1356 Sep, [facility] [address] [facility] [id number] [place] [id number] Aug, [facility] [place] [facility] [address] [facility] [id number][place] [address]- 1856 Aug, [facility] [address] [facility] [id number] [place] [id number] Aug, [facility] [place] [facility] [address] [facility] [id number] [place] [address]- 9919 Aug, [facility] [place] [facility] [address] [facility] [id number][place] [address]- 2620 Aug, [facility] [address] [facility] [id number] [place] [id number] Aug, [facility] [place] [facility] [address] [facility] [id number], [place] [address]- 5470 Aug, [facility] [place] [facility] [address] [facility] [id number] [place] [address]- 1142 Aug, [facility] [address] [facility] [id number] [place] [id number] Aug, [facility] [place] [facility] [address] [facility] [id number][place] [address] Aug, [facility] [place] [address] [facility] [id number] [place] [id number] Jul, [facility] [place] [facility] [address] [facility] [id number][place] [address] Jul, [facility] [place] [address] [facility] [id number] [place] [id number] Jul, [facility] [place] [facility] [address] [facility] [id number][place] [address] Jul, [facility] [place] [address] [facility] [id number] [place] [id number] Jul, [facility] [place] [facility] [address] [facility] [id number][place] [address] Jul, [facility] [place] [address] [facility] [id number] [place] [id number] Jul, [facility] [place] [facility] [address] [facility] [id number][place] [address] Jul, [facility] [place] [address] [facility] [id number] [place] [id number] Jun, [facility] [place] [facility] [address] [facility] [id number][place] [address] Jun, [facility] [place] [address] [id number] [place] [id number] Jun, [facility] [address] [facility] [id number][place] [address] Jun, [facility] [address] [facility] [id number][place] [address] Jun, [facility] [address] [facility] [id number], [place] [address] Jun, [facility] [place] [address] [id number] [place] [id number] Apr, [facility] [place] [address] [id number] [place] [id number] Mar, [facility] [place] [address] [id number] [place] [id number] Mar, [facility] [place] [address] [id number] [place] [id number] Feb, [facility] [place] [address] [id number] [place] [id number] Feb, [facility] [place] [address] [id number] [place] [id number] Feb, [facility] [place] [address] [id number] [place] [id number] December, [facility] [place] [address] [id number] [place] [id number] December, [facility] [address] [facility] [id number][place] [address] December, [facility] [place] [address] [id number] [place] [id number] December, [facility] [place] [address] [id number] [place] [id number] December, [facility] [place] [address] [id number] [place] [id number] Nov, [facility] [place] [address] [id number] [place] [id number] Nov, [facility] [place] [address] [id number] [place] [id number] Nov, [facility] [place] [address] [id number] [place] [id number] Oct, [facility] [place] [address] [id number] [place] [id number] Sep, [facility] [place] [address] [id number] [place] [id number] Aug, [facility] [place] [facility] [address] [facility] [id number], [place] [address] Aug, [facility] [place] [address] [id number] [place] [id number] Aug, [facility] [place] [address] [id number] [place] [id number] Jul, [facility] [place] [facility] [id number], [place] [address] Jul, [facility] [address] [id number] [place] [id number] Jul, [facility] [place] [facility] [id number] [address] Jul, [facility] [address] [facility] [id number] [place] [id number] Jun, [facility] [place] [facility] [id number] [address] Jun, [facility] [place] [address] [facility] [id number] [place] [id number] May, [facility] [place] [facility] [address] [facility] [id number][place] [address] May, [facility] [address] [id number] [place] [id number] May, [facility] [place] [facility] [address] [facility] [id number] [address] May, [facility] [address] [id number] [place] [id number] Apr, [facility] [address] [id number] [place] [address] [place] [id number] Apr, [facility] [place] [address] [id number] [place] [id number] Mar, [facility] [place] [address] [id number] [place] [id number] Mar, [facility] [place] [address] [id number] [place] [id number] Feb, [facility] [place] [address] [id number] [place] [address] Feb, [facility] [place] [address] [id number] [place] [id number] Jan, [facility] [place] [address] [id number] [place] [id number] Jan, [facility] [place] [address] [id number] [place] [id number] Jan, [facility] [place] [address] [id number] [place] [id number] Jan, [facility] [place] [address] [id number] [place] [id number] December, [facility] [place] [address] [id number] [place] [id number] December, [facility] [address] [facility] [id number] [address] Nov, [facility] [place] [address] [id number] [place] [id number] Nov, [facility] [place] [address] [id number] [place] [id number] Nov, [facility] [place] [address] [id number] [place] [id number] Nov, [facility] [place] [address] [id number] [place] [id number] Nov, [facility] [address] [facility] [id number], [place] [address] Oct, [facility] [address] [facility] [id number], [place] [address] Oct, [facility] [place] [address] [id number] [place] [id number] Oct, [facility] [place] [address] [id number] [place] [id number] Oct, [facility] [place] [address] [id number] [place] [id number] Oct, [facility] [place] [address] [id number] [place] [id number] Oct, [facility] [place] [address] [id number] [place] [id number] Oct, [facility] [place] [address] [id number] [place] [id number] Oct, [facility] [place] [address] [id number] [place] [id number] Oct, [facility] [address] [id number] [address] Oct, [facility] [place] [address] [id number] [place] [id number] Sep, [facility] [place] [address] [id number] [place] [id number] Sep, [facility] [place] [address] [id number] [place] [id number] Aug, [facility] [place] [address] [id number] [place] [id number] Aug, [facility] [id number], [place] [address] Jul, [facility] [id number] [place] [address] Jul, [facility] [id number], [place] [address] Jul, [facility] [id number] [place] [address] Jul, [facility] [id number] [place] [address] Jul, [facility] [id number] [place] [id number] Jul, [facility] [address] [id number] [address] Jul, [facility] [address] [id number] [address] Jul, [facility] [id number], [place] [address] Jul, [facility] [id number] [address] Jul, [facility] [id number] [address] Jul, [facility] [id number] [address] Jul, [facility] [id number] [address] Jul, [facility] [address] [id number], [place] [address] Jul, IMMUNIZATIONS No Known Immunizations SOCIAL HISTORY Never Assessed REASON FOR VISIT refill on carvedilol PLAN OF CARE VITAL SIGNS MEDICATIONS Medication Instructions Dosage Frequency Start Date End Date Duration Status Carvedilol 3.125 MG Orally 2 times a day 1/2 tablet in am and in pm 12h 30 days Active RESULTS No Results PROCEDURES [...] History Left eye retinal eye repair ([facility]) 06/2014 Surgical History amputation, toe-right third toe ([facility]) 2013 [facility] Surgical History heart [...]
--- OUTSIDE RECORDS SUMMARY | 2018-06-20 10:49 | XMS REPORT ---
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 Active 1167281354570 Problem S/P coronary artery stent placement Z95.5 Active 295298987 Problem Chronic obstructive pulmonary disease, unspecified COPD type J44.9 Active 05365433 Problem Type 2 diabetes mellitus with diabetic neuropathy E11.40 Active 55049666 Problem Bilateral low back pain without sciatica M54.5 Active 540098580 Problem 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 Active 219517919 Problem 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 Active 737317623 Problem Hypercholesterolemia E78.0 Active 45709538 Problem Comprehensive diabetic foot examination, type 2 DM, encounter for E11.9 Active 77802675 Problem Type 2 diabetes mellitus with diabetic polyneuropathy E11.42 Active 385848161 Problem Obesity (BMI 30.0-34.9) E66.9 Active 228477882540128 Problem Personal history of carotid stenosis Z86.79 Active 913583333 Problem Aphasia R47.01 Active 35268834 Problem Chronic diarrhea K52.9 Active 055718977 Problem Uses walker Z99.89 Active 300811528 Problem Chronic fatigue R53.82 Active 18424618 Problem Mixed stress and urge urinary incontinence N39.46 Active 914052227 Problem Chronic pain syndrome G89.4 Active 819369088 Problem High risk medication use Z79.899 Active 042025512 Problem Osteomyelitis of right foot, unspecified chronicity M86.9 Active 72549381 Problem Fatigue, unspecified type R53.83 Active 64353420 Problem Diabetes type 2, uncontrolled E11.65 Active 257901117 Problem Full incontinence of feces R15.9 Active 141069291592037 Problem Other chronic pain G89.29 Active 47633936 Problem Functional diarrhea K59.1 Active 40806037 Problem Fecal urgency R15.2 Active 42230329 Problem Depression F32.9 Active 33924749 Problem CKD (chronic kidney disease), stage 3 (moderate) N18.3 Active 581896767 Problem Hyperlipidemia, unspecified hyperlipidemia E78.5 Active 78173570 Problem CKD (chronic kidney disease) stage 3, GFR 30-59 ml/min N18.3 Active 925891515 Problem Type 2 diabetes mellitus with diabetic peripheral angiopathy without gangrene E11.51 Active 465420244 Problem Pain in left shoulder M25.512 Active 18833792 Problem Insulin long-term use Z79.4 Active 006957043 Problem Essential hypertension I10 Active 65410514 Problem Type 2 diabetes mellitus with diabetic retinopathy, macular edema presence unspecified, with unspecified retinopathy severity E11.319 Active 57771606 Problem Chronic kidney disease, unspecified N18.9 Active 769477521 Problem Type 2 diabetes mellitus with foot ulcer E11.621 Active 420442210 Problem Frequent falls R29.6 Active 589444314 Problem GERD without esophagitis K21.9 Active 401650151 Problem Mixed hyperlipidemia E78.2 Active 446533938 ALLERGIES No Information ENCOUNTERS Encounter Location Date [facility] [address] [id number] [place] [id number] 05 Apr, 2018 [facility] [address] [facility] [id number][place] [id number] Apr, Essential hypertension I10 [facility] [address] [id number][place] [id number] Mar, Other chronic pain G89.29 [facility] [address] [id number], [place] [id number] Mar, [facility] [address] [id number][place] [id number] Feb, Other chronic pain G89.29 [facility] [address] [id number][place] [id number] Feb, [facility] [id number] [place] [address] [id number] Feb, [facility] [id number], [place] [id number] Feb, Diabetes type 2, uncontrolled E11.65 [facility] [id number] [place] [address] [id number] Feb, Other chronic pain G89.29 [facility] [id number] [place] [address] [id number] Jan, [facility] [id number] [place] [address] [id number] Jan, [facility] [id number] [place] [address] [id number] Jan, [facility] [id number] [place] [address] [id number] Jan, Other chronic pain G89.29 [facility] [id number] [place] [address] [id number] December, Mixed stress and urge urinary incontinence N39.46 [facility] [id number] [place] [address] [id number] December, Chronic fatigue R53.82 [facility] [id number] [place] [address] [id number] December, Other chronic pain G89.29 [facility] [id number] [place] [address] [id number] December, Diabetes type 2, uncontrolled E11.65 ; [...] type J44.9 and Other chronic pain G89.29 [facility] [address]00565[address] [address] December, [place] [id number] [place] [address] [id number] December, Medicare annual wellness visit, subsequent Z00.00 ; Type 2 diabetes mellitus with diabetic polyneuropathy E11.42 ; Chronic obstructive pulmonary disease, unspecified COPD type J44.9 ; Depression F32.9 ; Peripheral vascular disease I73.9 ; Coronary artery disease involving quartz [place] coronary artery of [place]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 ; Hypercholesterolemia E78.0 ; GERD without esophagitis K21.9 and Chronic kidney disease, unspecified N18.[address] [id number] December, Mixed stress and urge urinary incontinence N39.46 ; Full incontinence of feces R15.9 ; Fecal urgency R15.2 ; Functional diarrhea K59.1 and Type 2 diabetes mellitus with diabetic neuropathy E11.[address] [id number] Nov, Other chronic pain G89.29 [place] [id number] [place] [address] [id number] Oct, [address] [id number] Oct, [address] [id number] Oct, Other chronic pain G89.[address] [id number] Sep, Other chronic pain G89.[address] [id number] Aug, CKD (chronic kidney disease), stage 3 (moderate) N18.3 ; Anemia, unspecified type D64.9 and Dilated pore of Ly L70.[address] [id number] Aug, Other chronic pain G89.29 ; Pain in left shoulder M25.512 ; High risk medication use Z79.899 ; Uses walker Z99.89 ; Diabetes type 2, uncontrolled E11.65 and Depression F32.[address] [place] [id number] Aug, Chronic diarrhea K52.9 [place] [id number] [place] [address] [id number] Aug, Chronic diarrhea K52.9 ; Type 2 diabetes mellitus with diabetic neuropathy E11.40 ; Diabetes type 2, uncontrolled E11.65 ; Insulin long-term use Z79.4 ; Chronic obstructive pulmonary disease, unspecified COPD type J44.9 ; Chronic pain syndrome G89.4 ; Pain in left shoulder M25.512 ; Uses walker Z99.89 ; S/P coronary artery stent placement Z95.5 ; Mixed hyperlipidemia E78.2 and Essential hypertension I10 [place] [id number] [place] [address] [id number] Aug, [address] [id number] Jul, Diabetes type 2, uncontrolled E11.65 [place] [id number] [place] [address] [id number] Jul, Diabetes type 2, uncontrolled E11.65 ; Type 2 diabetes mellitus with diabetic neuropathy E11.40 ; Insulin long-term use Z79.4 and Chronic obstructive pulmonary disease, unspecified COPD type J44.9 [place] [id number] [place] [address] [id number] Jun, [address] [id number] Jun, Essential hypertension I10 [address] [place] [address] [id number] Jun, Essential hypertension I10 [address] [id number] Jun, Type 2 diabetes mellitus with diabetic neuropathy E11.40 ; Type 2 diabetes mellitus with diabetic polyneuropathy E11.42 ; S/P coronary artery stent placement Z95.5 ; Obesity (BMI 30.0-34.9) E66.9 ; Mixed hyperlipidemia E78.2 ; Frequent falls R29.6 ; Chronic obstructive pulmonary disease, unspecified COPD type J44.9 ; Essential hypertension I10 ; Insulin long-term use Z79.4 and High risk medication use Z79.[address] [id number][place] [id number] May, Diarrhea, unspecified type R19.7 ; Type 2 diabetes mellitus with diabetic neuropathy E11.40 ; Chronic obstructive pulmonary disease, unspecified COPD type J44.9 ; S/P coronary artery stent placement Z95.5 ; High risk medication use Z79.899 ; Essential hypertension I10 ; Encounter for administration of vaccine Z23 and Encounter for immunization Z23 [address] [id number][place] [id number] May, Chronic obstructive pulmonary disease, unspecified COPD type J44.9 [address] [place] [address] [id number] May, Type 2 diabetes mellitus with diabetic polyneuropathy E11.42 ; Encounter for immunization Z23 ; Needs flu shot Z23 ; Comprehensive diabetic foot examination, type 2 DM, encounter for E11.9 and Obesity (BMI 30.0-34.9) E66.9 [address] [place] [address] [id number] May, [address] [place] [address] [id number] Apr, [place] [id number] [place] [address] [id number] Apr, Essential hypertension I10 and Aphasia R47.01 [address]00565100[place] [id number] Apr, [place] [id number] [place] [address] [id number] Apr, Type 2 diabetes mellitus with diabetic neuropathy E11.40 ; Frequent falls R29.6 ; Essential hypertension I10 ; S/P coronary artery stent placement Z95.5 ; High risk medication use Z79.899 ; Hyperlipidemia, unspecified hyperlipidemia E78.5 ; CKD (chronic kidney disease), stage 3 (moderate) N18.3 ; Pain in left shoulder M25.512 and Chronic obstructive pulmonary disease, unspecified COPD type J44.[address] [id number], [place] [id number] Mar, [place] [id number] [place] [address] [id number] Mar, Type 2 diabetes mellitus with diabetic polyneuropathy E11.42 ; Leg wound, left, initial encounter S81.802A ; Hx of shoulder surgery Z98.890 ; Acute pain of left shoulder M25.512 and Fall, initial encounter W19.XXXA [facility] [id number] [place] [address] [id number] Feb, Follow-up exam Z09 ; Hx of shoulder surgery Z98.890 ; Acute pain of left shoulder M25.512 ; Essential hypertension I10 and Leg wound, left, initial encounter S81.802A [facility] [id number] [place] [address] [id number] Feb, [facility] [id number] [place] [address] [id number] Feb, [facility] [id number] [place] [address] [id number] Feb, Chronic obstructive pulmonary disease, unspecified COPD type J44.9 [facility] [id number] [place] [address] [id number] Feb, [facility] [id number] [place] [address] [id number] Jan, Generalized weakness R53.1 ; Exertional shortness of breath R06.02 and Fungal rash of trunk B36.9 [facility] [id number] [place] [address] [id number] Jan, [facility] [id number] [place] [address] [id number] Jan, [facility] [id number] [place] [address] [id number] Jan, [facility] [id number] [place] [address] [id number] Jan, [facility] [id number] [place] [address] [id number] December, High risk medication use Z79.899 [facility] [id number] [place] [address] [id number] December, Type 2 diabetes mellitus with diabetic neuropathy E11.[address] [id number], [place] [id number] December, High risk medication use Z79.899 [address] [place] [address] [id number] Nov, Diabetes type 2, uncontrolled E11.65 [address] [place] [address] [id number] Nov, Medicare annual wellness visit, initial Z00.00 ; Bilateral low back pain without sciatica M54.5 ; Pain in left shoulder M25.512 ; Chronic pain syndrome G89.4 ; Type 2 diabetes mellitus with diabetic polyneuropathy E11.42 ; High risk medication use Z79.899 and Encounter for immunization Z23 [address] [place] [address] [id number] Nov, Type 2 diabetes mellitus with diabetic neuropathy E11.40 ; Coronary artery disease involving [place] coronary artery of [place]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 and CKD (chronic kidney disease), stage 3 (moderate) N18.3 [address] [place] [address] [id number] Oct, Type 2 diabetes mellitus with diabetic polyneuropathy E11.42 ; Chronic pain syndrome G89.4 ; Chronic obstructive pulmonary disease, unspecified COPD type J44.9 ; Chronic kidney disease, unspecified N18.9 and Rash R21 [address] [id number][place] [id number] Oct, Type 2 diabetes mellitus with diabetic neuropathy E11.[address] [id number], [place] [id number] Oct, Rash R21 and Impetigo L01.[id number] [place] [address] [id number] Oct, Chronic pain syndrome G89.[address] [id number], [place] [id number] Oct, [address] [place] [address] [id number] Sep, Sebaceous cyst L72.3 [place] [id number] [place] [address] [id number] 16 Sep, 2016 Sebaceous cyst L72.3 [facility] [id number] [place] [address] [id number] Sep, Chronic pain syndrome G89.4 ; Pain in left shoulder M25.512 and Effusion of olecranon bursa, left M25.422 [facility] [address]00565100[place] [address] Aug, [facility] [id number] [place] [address] [id number] Aug, [facility] [id number] [place] [address] [id number] Aug, Mixed hyperlipidemia E78.2 and Chronic kidney disease, unspecified N18.9 [place] [id number] [place] [address] [id number] Jul, Type 2 diabetes mellitus with diabetic neuropathy E11.40 ; Essential hypertension I10 and S/P coronary artery stent placement Z95.5 [place] [id number] [place] [address] [id number] Jul, 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 [place] [id number] [place] [address] [id number] Jul, Diabetes type 2, uncontrolled E11.65 ; Essential hypertension I10 and 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 [address] [place] [address] [id number] Jul, [place] [id number] [place] [address] [id number] Jul, [address] [place] [address] [id number] Jul, [place] [id number] [place] [address] [id number] Jul, Chronic obstructive pulmonary disease, unspecified COPD type J44.9 [address] [place] [address] [id number] Jun, CKD (chronic kidney disease), stage 3 (moderate) N18.3 and Anemia, unspecified type D64.9 [address] [place] [address] [id number] Jun, Type 2 diabetes mellitus with diabetic neuropathy E11.40 ; Decreased GFR R94.4 ; CKD (chronic kidney disease), stage 3 (moderate) N18.3 and Decreased hemoglobin R71.0 [place] [id number] [place] [address] [id number] Jun, CKD (chronic kidney disease), stage 3 (moderate) N18.3 and Anemia, unspecified type D64.9 [place] [id number] [place] [address] [id number] Jun, Type 2 diabetes mellitus with diabetic neuropathy E11.40 ; Decreased GFR R94.4 and CKD (chronic kidney disease), stage 3 (moderate) N18.3 [place] [id number] [place] [address] [id number] Jun, Type 2 diabetes mellitus with diabetic neuropathy E11.40 and Essential hypertension I10 [place] [id number] [place] [address] [id number] Jun, [place] [id number] [place] [address] [id number] Jun, [place] [address] [place] [address] [id number] Jun, Type 2 diabetes mellitus with diabetic neuropathy E11.40 ; S/P coronary artery stent placement Z95.5 ; Chronic obstructive pulmonary disease, unspecified COPD type J44.9 ; Essential hypertension I10 ; GERD without esophagitis K21.9 ; Peripheral vascular disease I73.9 ; Mixed hyperlipidemia E78.2 and Hospital discharge follow-up Z09 [address] [place] [address] [id number] Jun, [place] [id number] [place] [address] [id number] May, Depression F32.9 and Hyperlipidemia, unspecified hyperlipidemia E78.5 [facility] [address]00565100[place], [place] [address] May, [place] [id number] [place] [address] [id number] May, [address]00565100[place], [place] [id number] May, Essential hypertension I10 ; Chronic pain syndrome G89.4 ; Pain in left shoulder M25.512 ; High risk medication use Z79.899 ; Chronic obstructive pulmonary disease, unspecified COPD type J44.9 ; S/P coronary artery stent placement Z95.5 ; Personal history of carotid stenosis Z86.79 ; Hyperlipidemia, unspecified hyperlipidemia E78.5 ; Decreased GFR R94.4 and Type 2 diabetes mellitus with diabetic polyneuropathy E11.42 [place] [id number] [place] [address] [id number] May, Hemoglobin decreased R71.0 and Decreased GFR R94.4 [place] [id number] [place] [address] [id number] May, Hemoglobin decreased R71.0 and Decreased GFR R94.4 [place] [id number] [place] [address] [id number] May, [address] [id number] May, [place] [id number] [place] [address] [id number] Apr, [place] [id number] [place] [address] [id number] Apr, Type 2 diabetes mellitus with foot [...] unspecified hyperlipidemia E78.5 and Essential hypertension I10 [place] [id number] [place] [address] [id number] Apr, [place] [id number] [place] [address] [id number] Mar, [address] [place] [id number] Mar, [facility] [address]00565100[place], [place] [address] Mar, [facility] [id number], [place] [id number] Feb, [facility] [id number] [place] [address] [id number] Feb, [facility] [id number] [place] [address] [id number] Feb, [facility] [id number] [place] [address] [id number] Jan, Type 2 diabetes mellitus with diabetic polyneuropathy E11.42 ; Hypercholesterolemia E78.0 ; Chronic pain syndrome G89.4 ; Pain in left shoulder M25.512 and High risk medication use Z79.899 [facility] [id number] [place] [address] [id number] Jan, [facility] [id number] [place] [address] [id number] Jan, [facility] [id number] [place] [address] [id number] December, [facility] [id number] [place] [address] [id number] December, [facility] [address]65100[place], [place] [address] December, Diabetes type 2, uncontrolled E11.65 ; Type 2 diabetes mellitus with diabetic neuropathy E11.40 ; Peripheral vascular disease I73.9 ; 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 and 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 [facility] [id number], [place] [id number] Nov, [facility] [id number], [place] [id number] Nov, [facility] [id number], [place] [id number] Nov, [facility] [id number] [place] [address] [id number] Nov, Right hip pain M25.551 [facility] [address] [facility] [id number], [place] [address] Nov, [facility] [address] [facility] [id number] [place] [address] Nov, [facility] [id number] [place] [address] [id number] Nov, Diabetes with neurological manifestations, type II or unspecified type, 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.60 [facility] [id number] [place] [address] [id number] Nov, [facility] [id number] [place] [address] [id number] Nov, [facility] [id number] [place] [address] [id number] Oct, Diabetes type 2, uncontrolled E11.65 ; Type 2 diabetes mellitus with diabetic neuropathy, unspecified E11.40 and Low back pain M54.5 [facility] [address] [id number] [place] [address] [id number] Oct, [facility] [id number] [place] [address] [id number] Oct, [facility] [id number] [place] [address] [id number] Oct, [facility] [id number] [place] [address] [id number] Sep, [facility] [id number] [place] [address] [id number] Sep, [facility] [address]65100[place], [place] [address] Sep, [facility] [id number] [place] [address] [id number] Sep, [facility] [address] [id number] [place] [address] [id number] Sep, [facility] [id number] [place] [address] [id number] Aug, 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 [facility] [address] [id number], [place] [id number] Aug, [facility] [address] [id number][place] [id number] Aug, Allergic rhinitis due to pollen J30.1 [facility] [id number] [id number] Jul, [facility] [address] [id number], [place] [id number] Jul, [facility] [id number] [place] [address] [id number] Jul, [facility] [id number] [place] [address] [id number] Jun, [facility] [id number] [place] [address] [id number] Jun, Thumb tendonitis M77.8 and Ringing in ear, bilateral H93.13 [facility] [address] [place] [address] [id number][place] [id number] Jun, [facility] [address] [id number], [place] [id number] May, [place] [id number] [place] [address] May, [place] [id number] [place] [address] 60[address]- 2738 May, Pre-op evaluation Z01.818 ; Encounter for immunization Z23 ; Type 2 diabetes mellitus with diabetic peripheral angiopathy without gangrene E11.51 ; Insulin long-term use Z79.4 ; Type 2 diabetes mellitus with foot ulcer E11.621 ; Peripheral vascular disease I73.9 ; Coronary artery disease involving [place] coronary artery of [place]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 ; S/P coronary artery stent placement Z95.5 ; Osteomyelitis of right foot, unspecified chronicity M86.9 and Chronic obstructive pulmonary disease, unspecified COPD type J44.9 [facility] [id number] [place] [address] [id number]- 0554 May, [facility] [id number] [place] [address] [id number] May, [facility] [id number] [place] [address] [id number] May, Diabetes type 2, uncontrolled E11.65 ; Encounter for immunization Z23 ; Osteopenia M85.80 and Allergic rhinitis due to pollen J30.1 [facility] [id number] [place] [address] [id number] May, Lumbago 724.[id number] [place] [address] [id number] Apr, [facility] [id number] [place] [address] [id number] Apr, [facility] [id number] [place] [address] [id number] Apr, [facility] [id number] [place] [address] [id number] Apr, [facility] [address] [address] Mar, [facility] [id number] [place] [address] [id number] Mar, [facility] [id number] [place] [address] [id number] Mar, [facility] [id number] [place] [address] [id number] Mar, [facility] [id number] [place] [address] [id number] Mar, [facility] [id number] [place] [address]- 2546 Mar, [facility] [id number] [place] [address] [id number] Mar, [facility] [address] [id number] Mar, Diabetes with neurological manifestations, type II or unspecified type, 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.60 and Severe obesity (BMI 35.0-35.9 with comorbidity) 278.01 [facility] [address] [id number] Mar, [facility] [address]00565100[place], [place] [address]- 25[address] Mar, [facility] [address]00565100[place], [place] [address]- 25[address] Feb, [facility] [id number], [place] [id number] Feb, [facility] [id number], [place] [id number] Feb, [facility] [id number], [place] [id number] Feb, Diabetes with neurological manifestations, type II or unspecified type, 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.60 [facility] [id number], [place] [id number] Feb, [facility] [address]65100[place], [place] [address]- 2546 Feb, [facility] [id number], [place] [id number] Feb, [facility] [id number], [place] [id number] Feb, Follow up V67.9 ; Diabetes with neurological manifestations, type II or unspecified type, 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.60 and Congestive heart failure 428.0 [facility] [id number], [place] [id number] Jan, [facility] [id number], [place] [id number] Jan, [facility] [address] [id number], [place] [id number] Jan, [facility] [id number], [place] [id number] December, Otitis media with effusion 381.4 ; Left arm numbness 782.0 and Osteoporosis 733.00 [facility] [id number], [place] [id number] December, [facility] [address] [id number] [id number] Nov, [facility] [address] [facility] [id number], [place] [id number] Nov, Serous otitis media 381.4 and Lumbago 724.2 [facility] [place] [facility] [address]00565100[place], [place] [address]- 9606 14 Nov, 2014 [facility] [place] [facility] [address]00565100[place], [place] [address]- 2546 Nov, [facility] [id number], [place] [id number] Oct, [facility] [place] [facility] [address]00565100[place], [place] [address]- 7946 Oct, [facility] [id number], [place] 485869243 Oct, [facility] [place] [facility] [address]00565100[place], [place] [address]- 4756 Oct, [facility] [id number], [place] [id number] Oct, [facility] [place] [facility] [address]00565100[place], [place] [address]- 7336 Oct, [facility] [place] [facility] [address]00565100[place], [place] [address]- 3426 Sep, [facility] [place] [facility] [address]00565100[place], [place] [address]- 4746 Sep, [facility] [address] [id number], [place] [id number] Sep, [facility] [place] [facility] [address] [id number], [place] [address]- 2886 Sep, [facility] [address] [id number], [place] [id number] Aug, [facility] [place] [facility] [address] [id number], [place] [address]- 2546 Aug, [facility] [id number], [place] [id number] Aug, [facility] [place] [facility] [address] [facility] [id number], [place] [address]- 1756 Aug, [facility] [address] [id number] [place] [id number] Jul, [facility] [place] [facility] [address] [facility] [id number], [place] [address] 2546 Jul, [facility] [address] [id number] [place] [id number] Jul, [facility] [place] [facility] [address] [facility] [id number] [place] [address] 2546 Jul, [facility] [address] [id number] [place] [id number] Jul, [facility] [place] [facility] [address] [facility] [id number], [place] [address] 2546 Jul, [facility] [address] [facility] [id number], [place] [id number] Jun, [facility] [place] [facility] [address] [facility] [id number], [place] [address]- 1090 Jun, [facility] [address] [facility] [id number], [place] [id number] May, [facility] [place] [facility] [address] [facility] [id number], [place] [address]- 8076 May, [facility] [address] [facility] [id number], [place] [id number] May, [facility] [place] [facility] [address] [facility] [id number], [place] [address]- 2916 May, [facility] [address] [id number], [place] [id number] May, [facility] [place] [facility] [address] [facility] [id number], [place] [address] 2546 May, [facility] [address] [id number], [place] [id number] May, [facility] [address] [id number], [place] 722134430 May, [facility] [place] [facility] [address] [facility] [id number], [place] [address]- 1776 May, [facility] [place] [facility] [address] [facility] [id number], [place] [address]- 7462 May, [facility] [address] [id number], [place] [id number] May, [facility] [place] [facility] [address] [facility] [id number], [place] [address]- 0571 May, [facility] [place] [facility] [address] [facility] [id number], [place] [address]- 2242 Apr, [facility] [address] [facility] [id number], [place] [id number] Apr, [facility] [place] [facility] [address] [facility] [id number], [place] [address]- 1041 Apr, [facility] [address] [id number], [place] [id number] Apr, [facility] [address] [facility] [id number], [place] 890624146 Apr, [facility] [place] [facility] [address] [facility] [id number], [place] [address]- 6347 Apr, [facility] [place] [facility] [address] [facility] [id number], [place] [address]- 3015 Apr, [facility] [address] [id number], [place] [id number] Apr, [facility] [place] [facility] [address] [facility] [id number], [place] [address]- 1313 Apr, [facility] [address] [facility] [id number], [place] [id number] Apr, [facility] [place] [facility] [address] [facility] [id number], [place] [address]- 1222 Apr, [facility] [address] [facility] [id number], [place] 614137286 Apr, [facility] [place] [facility] [address] [facility] [id number], [place] [address]- 6793 Apr, [facility] [address] [id number] [place] [id number] Apr, [facility] [place] [facility] [address] [facility] [id number], [place] [address]- 6597 Apr, [facility] [address] [id number] [place] [id number] Apr, [facility] [place] [facility] [address] [facility] [id number], [place] [address]- 0947 Apr, [facility] [address] [id number] [place] [id number] Apr, [facility] [place] [facility] [address] [facility] [id number] [place] [address]- 4541 Apr, [facility] [address] [id number] [place] [id number] Mar, [facility] [place] [facility] [address] [facility] [id number], [place] [address]- 3736 Mar, [facility] [address] [id number], [place] [id number] Mar, [facility] [address] [id number] [place] [id number] Mar, [facility] [place] [facility] [address] [facility] [id number], [place] [address]- 2793 Mar, [facility] [place] [facility] [address] [facility] [id number], [place] [address]- 2362 Mar, [facility] [address] [id number], [place] 242615455 Mar, [facility] [place] [facility] [address] [id number], [place] [address]- 8761 Mar, [facility] [address] [id number] [place] [id number] Mar, [facility] [place] [facility] [address] [facility] [id number], [place] [address]- 9101 Mar, [facility] [address] [id number] [place] [id number] Mar, [facility] [place] [facility] [address] [id number] [place] [address]- 1058 Mar, [facility] [address] [id number] [place] [id number] Mar, [facility] [place] [facility] [address] [id number] [place] [address]- 5913 Mar, [facility] [address] [id number] [place] [id number] Mar, [facility] [place] [facility] [address] [id number] [place] [address]- 8767 Mar, [facility] [address] [id number] [place] [id number] Mar, [facility] [place] [facility] [address] [facility] [id number] [place] [address]- 7002 Mar, [facility] [address] [id number] [place] [id number] Mar, [facility] [place] [facility] [address] [id number] [place] [address]- 3934 Mar, [facility] [address] [id number] [place] [id number] Feb, [facility] [place] [facility] [address] [facility] [id number], [place] [address]- 4157 Feb, [facility] [address] [id number] [place] [id number] Feb, [facility] [place] [facility] [address] [facility] [id number] [place] [address]- 4237 Feb, [facility] [address] [id number] [place] [id number] Feb, [facility] [place] [facility] [address] [facility] [id number] [place] [address]- 3503 Feb, [facility] [address] [id number] [place] [id number] Feb, [facility] [place] [facility] [address] [id number], [place] [address]- 1900 Feb, [facility] [address] [id number] [place] 850577205 Feb, [facility] [place] [facility] [address] [facility] [id number] [place] [address]- 1854 Feb, [facility] [address] [id number] [place] [id number] Feb, [facility] [place] [facility] [address] [id number] [place] [address]- 5457 Feb, [facility] [address] [id number] [place] [id number] Feb, [facility] [place] [facility] [address] [facility] [id number] [place] [address]- 1048 Feb, [facility] [address] [id number] [place] [id number] Feb, [facility] [place] [facility] [address] [facility] [id number], [place] [address]- 3841 Feb, [facility] [address] [id number] [place] [id number] Feb, [facility] [place] [facility] [address] [facility] [id number] [place] [address]- 8231 Feb, [facility] [address] [id number], [place] 512957920 Feb, [facility] [address] [id number] [place] 477183948 Feb, [facility] [place] [facility] [address] [facility] [id number], [place] [address]- 3271 Feb, [facility] [place] [facility] [address] [id number], [place] [address]- 6238 Feb, [facility] [address] [id number] [place] [id number] Feb, [facility] [place] [facility] [address] [facility] [id number] [place]- 6897 Feb, [facility] [address] [id number] [place] [id number] Feb, [facility] [place] [facility] [address] [id number] [place] [address]- 2979 Feb, [facility] [address] [id number] [place] [id number] Feb, [facility] [place] [facility] [address] [facility] [id number] [place] [address]- 9474 Feb, [facility] [address] [id number] [place] 522965998 Jan, [facility] [place] [facility] [address] [id number] [place] [address]- 9120 Jan, [facility] [place] [facility] [address] [facility] [id number] [place] [address]- 7403 Jan, [facility] [place] [facility] [address] [facility] [id number] [place] [address]- 6618 Jan, [facility] [place] [facility] [address] [facility] [id number] [place] [address]- 7960 Jan, [facility] [place] [facility] [address] [facility] [id number] [place] [address]- 6644 Jan, [facility] [address] [facility] [id number], [place] [id number] Jan, [facility] [place] [facility] [address] [facility] [id number], [place] [address]- 1789 Jan, [facility] [place] [facility] [address] [facility] [id number], [place] [address]- 2381 Jan, [facility] [place] [facility] [address] [id number], [place] [address]- 9602 Jan, [facility] [address] [id number] [place] [id number] Jan, [facility] [place] [address] [id number] [place] 608952322 Jan, [facility] [place] [facility] [address] [facility] [id number], [place] 48867825- 1198 Jan, [facility] [place] [facility] [address] [id number] [place] [address]- 9276 Jan, [facility] [address] [id number] [place] 087009688 Jan, [facility] [address] [id number] [place] [id number] Jan, [facility] [place] [facility] [address] [facility] [id number] [place] [address]- 6906 Jan, [facility] [place] [facility] [address] [id number] [place] [address]- 5806 Jan, [facility] [place] [facility] [address] [facility] [id number] [place] [address]- 2393 Jan, [facility] [address] [facility] [id number] [place] [id number] December, [facility] [place] [facility] [address] [facility] [id number] [place] [address]- 5769 December, [facility] [place] [facility] [address] [facility] [id number], [place] [address]- 1364 December, [facility] [address] [id number] [place] [id number] December, [facility] [place] [facility] [address] [facility] [id number], [place] [address]- 3446 December, [facility] [address] [facility] [id number], [place] 321185142 December, [facility] [place] [facility] [address] [facility] [id number], [place] [address]- 3906 December, [facility] [address] [id number] [place] 011368034 December, [facility] [place] [facility] [address] [facility] [id number], [place] [address]- 2386 December, [facility] [address] [id number] [place] [id number] Nov, [facility] [place] [facility] [address] [facility] [id number], [place] [address]- 7135 Nov, [facility] [address] [facility] [id number] [place] 676271578 Nov, [facility] [place] [facility] [address] [facility] [id number] [place] [address]- 3967 Nov, [facility] [place] [facility] [address] [facility] [id number] [place] [address]- 5838 Nov, [facility] [place] [facility] [address] [facility] [id number] [place] [address]- 0052 Nov, [facility] [place] [facility] [address] [facility] [id number] [place] [address]- 6006 Oct, [facility] [address] [facility] [id number], [place] 509292807 Oct, [facility] [place] [facility] [address] [facility] [id number], [place] [address]- 7669 Oct, [facility] [address] [facility] [id number], [place] 536366011 Oct, [facility] [place] [facility] [address] [facility] [id number], [place] [address]- 0636 Oct, [facility] [address] [facility] [id number], [place] 665725809 Sep, [facility] [place] [facility] [address] [facility] [id number], [place] [address]- 3083 Sep, [facility] [address] [facility] [id number], [place] [id number] Aug, [facility] [place] [facility] [address] [facility] [id number], [place] [address]- 4531 Aug, [facility] [address] [facility] [id number], [place] 977848386 Aug, [facility] [place] [facility] [address] [facility] [id number], [place] [address]- 5453 Aug, [facility] [place] [facility] [address] [facility] [id number], [place] [address]- 0199 Aug, [facility] [address] [id number], [place] 385843493 Aug, [facility] [place] [facility] [address] [facility] [id number], [place] [address]- 2668 Aug, [facility] [place] [facility] [address] [facility] [id number], [place] [address]- 1656 Aug, [facility] [address] [facility] [id number], [place] 838650858 Aug, [facility] [place] [facility] [address] [facility] [id number], [place] [address]- 4003 Aug, [facility] [address] [facility] [id number] [place] [id number] Jul, [facility] [place] [facility] [address] [facility] [id number], [place] [address]- 4307 Jul, [facility] [address] [facility] [id number] [place] [id number] Jul, [facility] [place] [facility] [address] [facility] [id number], [place] [address]- 7066 Jul, [facility] [address] [facility] [id number] [place] 780531055 Jul, [facility] [place] [facility] [address] [facility] [id number], [place] [address]- 8185 Jul, [facility] [address] [facility] [id number], [place] 512813301 Jul, [facility] [place] [facility] [address] [facility] [id number], [place] [address]- 9546 Jul, [facility] [address] [facility] [id number], [place] [id number] Jun, [facility] [place] [facility] [address] [facility] [id number], [place] [address]- 2852 Jun, [facility] [address] [facility] [id number], [place] [id number] Jun, [facility] [place] [facility] [address] [facility] [id number], [place] [address]- 4127 Jun, [facility] [place] [facility] [address] [facility] [id number], [place] [address]- 2547 Jun, [facility] [address] [facility] [id number], [place] [address]- 2546 Jun, [facility] [address] [id number] [place] [id number] Apr, [facility] [place] [address] [id number] [place] [id number] Mar, [facility] [place] [address] [id number] [place] 231828001 Mar, [facility] [place] [address] [id number] [place] 545740768 Feb, [facility] [place] [address] [id number] [place] 341974714 Feb, [facility] [place] [address] [id number] [place] 405549590 Feb, [facility] [place] [address] [id number] [place] [id number] December, [facility] [address] [id number] [place] 806033886 December, [facility] [address] [facility] [id number], [place] [address]- 2546 December, [facility] [place] [address] [id number] [place] [id number] December, [facility] [place] [address] [id number] [place] [id number] December, [facility] [address] [id number] [place] 876638687 Nov, [facility] [address] [id number] [place] [id number] Nov, [facility] [address] [id number] [place] [id number] Nov, [facility] [address] [id number] [place] [id number] Oct, [facility] [address] [id number] [place] [id number] Sep, [facility] [address] [id number][place] [id number] Aug, [facility] [address] [facility] [id number], [place] [address] Aug, [facility] [address] [id number][place] [id number] Aug, [facility] [address] [id number][place] [id number] Jul, [facility] [address] [facility] [id number], [place] [address] Jul, [facility] [address] [id number][place] [id number] Jul, [facility] [address] [facility] [id number], [place] [address] Jul, [facility] [address] [id number][place] [id number] Jun, [facility] [address] [facility] [id number], [place] [address] Jun, [facility] [address] [id number][place] [id number] May, [facility] [address] [facility] [id number][place] [address] May, [facility] [address] [id number], [place] [id number] May, [facility] [address] [facility] [id number], [place] [address] May, [facility] [address] [id number], [place] [id number] Apr, [facility] [address] [id number] [place] [id number] Apr, [facility] [address] [id number] [place] [id number] Mar, [facility] [address] [id number] [place] [id number] Mar, [facility] [address] [id number] [place] [id number] Feb, [facility] [address] [id number] [place] [id number] Feb, [facility] [address] [id number] [place] [id number] Jan, [facility] [address] [id number] [place] [id number] Jan, [facility] [address] [id number] [place] [id number] Jan, [facility] [address] [id number] [place] [address] Jan, [facility] [address] [id number] [place] [id number] December, [facility] [address] [id number] [place] [id number] December, [facility] [address] [facility] [id number], [place] [address] Nov, [facility] [address] [id number] [place] [address] Nov, [facility] [address] [id number] [place] [id number] Nov, [facility] [address] [id number] [place] [id number] Nov, [facility] [address] [id number] [place] [id number] Nov, [facility] [address] [facility] [id number], [place] [address] [address] Oct, [facility] [address] [facility] [id number], [place] [address] Oct, [facility] [address] [id number] [place] [id number] Oct, [facility] [address] [id number] [place] [id number] Oct, [facility] [address] [id number] [place] [id number] Oct, [facility] [address] [id number] [place] [id number] Oct, [facility] [address] [id number] [place] [address] Oct, [facility] [address] [id number] [place] [id number] Oct, [facility] [address] [id number] [place] [id number] Oct, [facility] [address] [facility] [id number], [place] [address] Oct, [facility] [address] [id number] [place] [id number] Sep, [facility] [address] [id number] [place] [id number] Sep, [facility] [address] [id number] [place] [id number] Aug, [facility] [address] [id number] [place] [id number] Aug, [facility] [address]00565100[place], [place] [address] Jul, [facility] [address] [id number], [place] [address] Jul, [facility] [address]00565100[place], [place] [address] Jul, [facility] [address]00565100[place], [place] [address] Jul, [facility] [address]00565100[place], [place] [address] Jul, [facility] [address]00565[address], [place] [address] Jul, [facility] [address]00565[address], [place] [address] Jul, [facility] [address]65[address], [place] [address] Jul, [facility] [address] [facility] [id number], [place] [address] Jul, [facility] [address] [facility] [id number], [place] [address] Jul, [facility] [address] [id number], [place] [address] Jul, [facility] [facility] [address] [facility] [id number] [address] Jul, [facility] [address] [facility] [id number], [place] [address] Jul, [facility] [address] [id number] [address] Jul, IMMUNIZATIONS No Known Immunizations SOCIAL HISTORY Never Assessed REASON FOR VISIT refill on narcotic PLAN OF CARE VITAL SIGNS MEDICATIONS Medication [...] in the future. Medical History 05/26/17 noted, residential has ended and they feel he is [...] Surgical History Left eye retinal eye repair ([facility]) 06/2014 Surgical History amputation, toe-right third toe ([facility]) 2013 Surgical History Right eye retinal eye repair ([facility]) 09/2014 Surgical History heart cath [...]
--- OUTSIDE RECORDS SUMMARY | 2018-06-20 10:50 | XMS REPORT ---
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 Active 3392078098941 Problem S/P coronary artery stent placement Z95.5 Active 453759907 Problem Chronic obstructive pulmonary disease, unspecified COPD type J44.9 Active 58241553 Problem Type 2 diabetes mellitus with diabetic neuropathy E11.40 Active 11151880 Problem Bilateral low back pain without sciatica M54.5 Active 419547129 Problem 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 Active 071196866 Problem 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 Active 573597216 Problem Hypercholesterolemia E78.0 Active 66064901 Problem Comprehensive diabetic foot examination, type 2 DM, encounter for E11.9 Active 57857306 Problem Type 2 diabetes mellitus with diabetic polyneuropathy E11.42 Active 465289574 Problem Obesity (BMI 30.0-34.9) E66.9 Active 453557383195526 Problem Personal history of carotid stenosis Z86.79 Active 702269006 Problem Aphasia R47.01 Active 55214960 Problem Chronic diarrhea K52.9 Active 305738194 Problem Uses walker Z99.89 Active 443246191 Problem Chronic fatigue R53.82 Active 01494599 Problem Mixed stress and urge urinary incontinence N39.46 Active 364701632 Problem Chronic pain syndrome G89.4 Active 338149545 Problem High risk medication use Z79.899 Active 094803915 Problem Osteomyelitis of right foot, unspecified chronicity M86.9 Active 13815623 Problem Fatigue, unspecified type R53.83 Active 94200308 Problem Diabetes type 2, uncontrolled E11.65 Active 770234394 Problem Full incontinence of feces R15.9 Active 344428634433029 Problem Other chronic pain G89.29 Active 19087182 Problem Functional diarrhea K59.1 Active 44950187 Problem Fecal urgency R15.2 Active 56136684 Problem Depression F32.9 Active 61047710 Problem CKD (chronic kidney disease), stage 3 (moderate) N18.3 Active 990937690 Problem Hyperlipidemia, unspecified hyperlipidemia E78.5 Active 82808328 Problem CKD (chronic kidney disease) stage 3, GFR 30-59 ml/min N18.3 Active 988270282 Problem Type 2 diabetes mellitus with diabetic peripheral angiopathy without gangrene E11.51 Active 143829845 Problem Pain in left shoulder M25.512 Active 33361802 Problem Insulin long-term use Z79.4 Active 182630298 Problem Essential hypertension I10 Active 12659997 Problem Type 2 diabetes mellitus with diabetic retinopathy, macular edema presence unspecified, with unspecified retinopathy severity E11.319 Active 62807267 Problem Chronic kidney disease, unspecified N18.9 Active 937407135 Problem Type 2 diabetes mellitus with foot ulcer E11.621 Active 533421021 Problem Frequent falls R29.6 Active 390778498 Problem GERD without esophagitis K21.9 Active 594485956 Problem Mixed hyperlipidemia E78.2 Active 728666775 ALLERGIES No Information ENCOUNTERS Encounter Location Date Diagnosis [facility] [address] [id number] [place] [id number] 05 Apr, 2018 [facility] [address] [facility] [id number] [place] [id number] Apr, Essential hypertension I10 [facility] [address] [id number] [place] [id number] Mar, Other chronic pain G89.29 [facility] [address] [id number] [place] [id number] Mar, [facility] [address] [id number] [place] [id number] Feb, Other chronic pain G89.29 [facility] [address] [id number] [place] [id number] Feb, [facility] [place] [id number] [place] [address] [id number] Feb, [facility] [id number] [place] [id number] Feb, Diabetes type 2, uncontrolled E11.65 [facility] [id number] [place] [address] [id number] Feb, Other chronic pain G89.29 [facility] [id number] [place] [address] [id number] Jan, [facility] [id number] [place] [address] [id number] Jan, [facility] [id number] [place] [address] [id number] Jan, [facility] [id number] [place] [address] [id number] Jan, Other chronic pain G89.29 [facility] [id number] [place] [address] [id number] December, Mixed stress and urge urinary incontinence N39.46 [facility] [id number] [place] [address] [id number] December, Chronic fatigue R53.82 [facility] [id number] [place] [address] [id number] December, Other chronic pain G89.29 [facility] [id number] [place] [address] [id number] December, Diabetes type 2, uncontrolled E11.65 ; [...] type J44.9 and Other chronic pain G89.29 [facility] [address] [address] December, [place] [id number] [place] [address] [id number] December, Medicare annual wellness visit, subsequent Z00.00 ; Type 2 diabetes mellitus with diabetic polyneuropathy E11.42 ; Chronic obstructive pulmonary disease, unspecified COPD type J44.9 ; Depression F32.9 ; Peripheral vascular disease I73.9 ; 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 ; Hypercholesterolemia E78.0 ; GERD without esophagitis K21.9 and Chronic kidney disease, unspecified N18.[address] [id number] December, Mixed stress and urge urinary incontinence N39.46 ; Full incontinence of feces R15.9 ; Fecal urgency R15.2 ; Functional diarrhea K59.1 and Type 2 diabetes mellitus with diabetic neuropathy E11.[address] [id number] Nov, Other chronic pain G89.29 [place] [id number] [place] [address] [id number] Oct, [address] [id number] Oct, [address] [id number] Oct, Other chronic pain G89.[address] [id number] Sep, Other chronic pain G89.[address] [id number] Aug, CKD (chronic kidney disease), stage 3 (moderate) N18.3 ; Anemia, unspecified type D64.9 and Dilated pore of Ly L70.[address] [id number] Aug, Other chronic pain G89.29 ; Pain in left shoulder M25.512 ; High risk medication use Z79.899 ; Uses walker Z99.89 ; Diabetes type 2, uncontrolled E11.65 and Depression F32.[address] [place] [id number] Aug, Chronic diarrhea K52.9 [place] [id number] [place] [address] [id number] Aug, Chronic diarrhea K52.9 ; Type 2 diabetes mellitus with diabetic neuropathy E11.40 ; Diabetes type 2, uncontrolled E11.65 ; Insulin long-term use Z79.4 ; Chronic obstructive pulmonary disease, unspecified COPD type J44.9 ; Chronic pain syndrome G89.4 ; Pain in left shoulder M25.512 ; Uses walker Z99.89 ; S/P coronary artery stent placement Z95.5 ; Mixed hyperlipidemia E78.2 and Essential hypertension I10 [place] [id number] [place] [address] [id number] Aug, [address] [id number] Jul, Diabetes type 2, uncontrolled E11.65 [place] [id number] [place] [address] [id number] Jul, Diabetes type 2, uncontrolled E11.65 ; Type 2 diabetes mellitus with diabetic neuropathy E11.40 ; Insulin long-term use Z79.4 and Chronic obstructive pulmonary disease, unspecified COPD type J44.9 [place] [id number] [place] [address] [id number] Jun, [address] [id number] Jun, Essential hypertension I10 [address] [place] [address] [id number] Jun, Essential hypertension I10 [address] [id number] Jun, Type 2 diabetes mellitus with diabetic neuropathy E11.40 ; Type 2 diabetes mellitus with diabetic polyneuropathy E11.42 ; S/P coronary artery stent placement Z95.5 ; Obesity (BMI 30.0-34.9) E66.9 ; Mixed hyperlipidemia E78.2 ; Frequent falls R29.6 ; Chronic obstructive pulmonary disease, unspecified COPD type J44.9 ; Essential hypertension I10 ; Insulin long-term use Z79.4 and High risk medication use Z79.[address] [id number] [place] [id number] May, Diarrhea, unspecified type R19.7 ; Type 2 diabetes mellitus with diabetic neuropathy E11.40 ; Chronic obstructive pulmonary disease, unspecified COPD type J44.9 ; S/P coronary artery stent placement Z95.5 ; High risk medication use Z79.899 ; Essential hypertension I10 ; Encounter for administration of vaccine Z23 and Encounter for immunization Z23 [address] [id number] [place] [id number] May, Chronic obstructive pulmonary disease, unspecified COPD type J44.9 [address] [place] [address] [id number] May, Type 2 diabetes mellitus with diabetic polyneuropathy E11.42 ; Encounter for immunization Z23 ; Needs flu shot Z23 ; Comprehensive diabetic foot examination, type 2 DM, encounter for E11.9 and Obesity (BMI 30.0-34.9) E66.9 [address] [place] [address] [id number] May, [address] [place] [address] [id number] Apr, [place] [id number] [place] [address] [id number] Apr, Essential hypertension I10 and Aphasia R47.01 [address]00565100[place] [id number] Apr, [place] [id number] [place] [address] [id number] Apr, Type 2 diabetes mellitus with diabetic neuropathy E11.40 ; Frequent falls R29.6 ; Essential hypertension I10 ; S/P coronary artery stent placement Z95.5 ; High risk medication use Z79.899 ; Hyperlipidemia, unspecified hyperlipidemia E78.5 ; CKD (chronic kidney disease), stage 3 (moderate) N18.3 ; Pain in left shoulder M25.512 and Chronic obstructive pulmonary disease, unspecified COPD type J44.[address] [id number] [place] [id number] Mar, [place] [id number] [place] [address] [id number] Mar, Type 2 diabetes mellitus with diabetic polyneuropathy E11.42 ; Leg wound, left, initial encounter S81.802A ; Hx of shoulder surgery Z98.890 ; Acute pain of left shoulder M25.512 and Fall, initial encounter W19.XXXA [facility] [place] [id number] [place] [address] [id number] Feb, Follow-up exam Z09 ; Hx of shoulder surgery Z98.890 ; Acute pain of left shoulder M25.512 ; Essential hypertension I10 and Leg wound, left, initial encounter S81.802A [facility] [place] [id number] [place] [address] [id number] Feb, [facility] [place] [id number] [place] [address] [id number] Feb, [facility] [place] [id number] [place] [address] [id number] Feb, Chronic obstructive pulmonary disease, unspecified COPD type J44.9 [facility] [place] [id number] [place] [address] [id number] Feb, [facility] [place] [id number] [place] [address] [id number] Jan, Generalized weakness R53.1 ; Exertional shortness of breath R06.02 and Fungal rash of trunk B36.9 [facility] [place] [id number] [place] [address] [id number] Jan, [facility] [place] [id number] [place] [address] [id number] Jan, [facility] [place] [id number] [place] [address] [id number] Jan, [facility] [place] [id number] [place] [address] [id number] Jan, [facility] [place] [id number] [place] [address] [id number] December, High risk medication use Z79.899 [facility] [place] [id number] [place] [address] [id number] December, Type 2 diabetes mellitus with diabetic neuropathy E11.[address] [id number] [place] [id number] December, High risk medication use Z79.899 [address] [place] [address] [id number] Nov, Diabetes type 2, uncontrolled E11.65 [address] [place] [address] [id number] Nov, Medicare annual wellness visit, initial Z00.00 ; Bilateral low back pain without sciatica M54.5 ; Pain in left shoulder M25.512 ; Chronic pain syndrome G89.4 ; Type 2 diabetes mellitus with diabetic polyneuropathy E11.42 ; High risk medication use Z79.899 and Encounter for immunization Z23 [address] [place] [address] [id number] Nov, Type 2 diabetes mellitus with diabetic neuropathy E11.40 ; 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 and CKD (chronic kidney disease), stage 3 (moderate) N18.3 [address] [place] [address] [id number] Oct, Type 2 diabetes mellitus with diabetic polyneuropathy E11.42 ; Chronic pain syndrome G89.4 ; Chronic obstructive pulmonary disease, unspecified COPD type J44.9 ; Chronic kidney disease, unspecified N18.9 and Rash R21 [address] [id number] [place] [id number] Oct, Type 2 diabetes mellitus with diabetic neuropathy E11.[address] [id number] [place] [id number] Oct, Rash R21 and Impetigo L01.[id number] [place] [address] [id number] Oct, Chronic pain syndrome G89.[address] [id number] [place] [id number] Oct, [address] [place] [address] [id number] Sep, Sebaceous cyst L72.3 [place] [id number] [place] [address] [id number] Sep, 2016 Sebaceous cyst L72.3 [facility] [id number] [place] [address] [id number] Sep, Chronic pain syndrome G89.4 ; Pain in left shoulder M25.512 and Effusion of olecranon bursa, left M25.422 [facility] [address]005[address], [place] [address] Aug, [facility] [id number] [place] [address] [id number] Aug, [facility] [id number] [place] [address] [id number] Aug, Mixed hyperlipidemia E78.2 and Chronic kidney disease, unspecified N18.9 [place] [id number] [place] [address] [id number] Jul, Type 2 diabetes mellitus with diabetic neuropathy E11.40 ; Essential hypertension I10 and S/P coronary artery stent placement Z95.5 [place] [id number] [place] [address] [id number] Jul, 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 [place] [id number] [place] [address] [id number] Jul, Diabetes type 2, uncontrolled E11.65 ; Essential hypertension I10 and 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 [address] [place] [address] [id number] Jul, [place] [id number] [place] [address] [id number] Jul, [address] [place] [address] [id number] Jul, [place] [id number] [place] [address] [id number] Jul, Chronic obstructive pulmonary disease, unspecified COPD type J44.9 [address] [place] [address] [id number] Jun, CKD (chronic kidney disease), stage 3 (moderate) N18.3 and Anemia, unspecified type D64.9 [address] [place] [address] [id number] Jun, Type 2 diabetes mellitus with diabetic neuropathy E11.40 ; Decreased GFR R94.4 ; CKD (chronic kidney disease), stage 3 (moderate) N18.3 and Decreased hemoglobin R71.0 [place] [id number] [place] [address] [id number] Jun, CKD (chronic kidney disease), stage 3 (moderate) N18.3 and Anemia, unspecified type D64.9 [place] [id number] [place] [address] [id number] Jun, Type 2 diabetes mellitus with diabetic neuropathy E11.40 ; Decreased GFR R94.4 and CKD (chronic kidney disease), stage 3 (moderate) N18.3 [place] [id number] [place] [address] [id number] Jun, Type 2 diabetes mellitus with diabetic neuropathy E11.40 and Essential hypertension I10 [place] [id number] [place] [address] [id number] Jun, [place] [id number] [place] [address] [id number] Jun, [place] [id number] [place] [address] [id number] Jun, Type 2 diabetes mellitus with diabetic neuropathy E11.40 ; S/P coronary artery stent placement Z95.5 ; Chronic obstructive pulmonary disease, unspecified COPD type J44.9 ; Essential hypertension I10 ; GERD without esophagitis K21.9 ; Peripheral vascular disease I73.9 ; Mixed hyperlipidemia E78.2 and Hospital discharge follow-up Z09 [address] [place] [address] [id number] Jun, [place] [id number] [place] [address] [id number] May, Depression F32.9 and Hyperlipidemia, unspecified hyperlipidemia E78.5 [facility] [address]100[place] [address] May, [place] [id number] [place] [address] [id number] May, [address]100[place] [id number] May, Essential hypertension I10 ; Chronic pain syndrome G89.4 ; Pain in left shoulder M25.512 ; High risk medication use Z79.899 ; Chronic obstructive pulmonary disease, unspecified COPD type J44.9 ; S/P coronary artery stent placement Z95.5 ; Personal history of carotid stenosis Z86.79 ; Hyperlipidemia, unspecified hyperlipidemia E78.5 ; Decreased GFR R94.4 and Type 2 diabetes mellitus with diabetic polyneuropathy E11.42 [place] [id number] [place] [address] [id number] May, Hemoglobin decreased R71.0 and Decreased GFR R94.4 [place] [address] [place] [address] [id number] May, Hemoglobin decreased R71.0 and Decreased GFR R94.4 [place] [id number] [place] [address] [id number] May, [address] [id number] May, [place] [id number] [place] [address] [id number] Apr, [place] [id number] [place] [address] [id number] Apr, Type 2 diabetes mellitus with foot [...] unspecified hyperlipidemia E78.5 and Essential hypertension I10 [place] [id number] [place] [address] [id number] Apr, [place] [id number] [place] [address] [id number] Mar, [address] [place] [id number] Mar, [facility] [address] [address] Mar, [facility] [id number] [place] [id number] Feb, [facility] [id number] [place] [address] [id number] Feb, [facility] [id number] [place] [address] [id number] Feb, [facility] [id number] [place] [address] [id number] Jan, Type 2 diabetes mellitus with diabetic polyneuropathy E11.42 ; Hypercholesterolemia E78.0 ; Chronic pain syndrome G89.4 ; Pain in left shoulder M25.512 and High risk medication use Z79.899 [facility] [id number] [place] [address] [id number] Jan, [facility] [id number] [place] [address] [id number] Jan, [facility] [id number] [place] [address] [id number] December, [facility] [id number] [place] [address] [id number] December, [facility] [address] [address] December, Diabetes type 2, uncontrolled E11.65 ; Type 2 diabetes mellitus with diabetic neuropathy E11.40 ; Peripheral vascular disease I73.9 ; 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 and 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 [facility] [id number] [place] [id number] Nov, [facility] [id number] [place] [id number] Nov, [facility] [id number] [place] [id number] Nov, [facility] [id number] [place] [address] [id number] Nov, Right hip pain M25.551 [facility] [address] [facility] [id number] [address] Nov, [facility] [address] [facility] [id number] [place] [address] Nov, [facility] [place] [id number] [place] [address] [id number] Nov, Diabetes with neurological manifestations, type II or unspecified type, 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.60 [facility] [id number] [place] [address] [id number] Nov, [facility] [id number] [place] [address] [id number] Nov, [facility] [address] [id number] [place] [address] [id number] Oct, Diabetes type 2, uncontrolled E11.65 ; Type 2 diabetes mellitus with diabetic neuropathy, unspecified E11.40 and Low back pain M54.5 [facility] [place] [id number] [place] [address] [id number] Oct, [facility] [address] [id number] [place] [address] [id number] Oct, [facility] [id number] [place] [address] [id number] Oct, [facility] [id number] [place] [address] [id number] Sep, [facility] [place] [id number] [place] [address] [id number] Sep, [facility] [address]100[place] [address] Sep, [facility] [id number] [place] [address] [id number] Sep, [facility] [id number] [place] [address] [id number] Sep, [facility] [id number] [place] [address] [id number] Aug, 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 [facility] [address] [id number] [place] [id number] Aug, [facility] [address] [id number] [place] [id number] Aug, Allergic rhinitis due to pollen J30.1 [facility] [id number] [id number] Jul, [facility] [address] [id number] [place] [id number] Jul, [facility] [id number] [place] [address] [id number] Jul, [facility] [id number] [place] [address] [id number] Jun, [facility] [id number] [place] [address] [id number] Jun, Thumb tendonitis M77.8 and Ringing in ear, bilateral H93.13 [facility] [address] [place] [address] [id number] [place] [id number] Jun, [facility] [address] [id number] [place] [id number] May, [place] [id number] [place] [address] 07300- 9172 May, [place] [id number] [place] [address] 33609- 0181 May, Pre-op evaluation Z01.818 ; Encounter for immunization Z23 ; Type 2 diabetes mellitus with diabetic peripheral angiopathy without gangrene E11.51 ; Insulin long-term use Z79.4 ; Type 2 diabetes mellitus with foot ulcer E11.621 ; Peripheral vascular disease I73.9 ; 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 ; S/P coronary artery stent placement Z95.5 ; Osteomyelitis of right foot, unspecified chronicity M86.9 and Chronic obstructive pulmonary disease, unspecified COPD type J44.9 [facility] [id number] [place] [address] [id number]- 4747 May, [facility] [id number] [place] [address] [phone] May, [facility] [id number] [place] [address] [phone] May, Diabetes type 2, uncontrolled E11.65 ; Encounter for immunization Z23 ; Osteopenia M85.80 and Allergic rhinitis due to pollen J30.1 [facility] [id number] [place] [address] [id number] May, Lumbago 724.2 [place] [id number] [place] [address] [phone] Apr, [facility] [id number] [place] [address] [id number] Apr, [facility] [id number] [place] [address] [id number] Apr, [facility] [id number] [place] [address] [id number] Apr, [facility] [address] [address]- [address] Mar, [facility] [id number] [place] [address] [id number] Mar, [facility] [id number] [place] [address] [id number] Mar, [facility] [id number] [place] [address] [id number] Mar, [facility] [id number] [place] [address] [id number] Mar, [facility] [id number] [place] [address] 58426- 2546 Mar, [facility] [id number] [place] [address] [id number] Mar, [facility] [address] [id number] Mar, Diabetes with neurological manifestations, type II or unspecified type, 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.60 and Severe obesity (BMI 35.0-35.9 with comorbidity) 278.01 [facility] [place] [address], [place] [id number] Mar, [facility] [address]005[address]100[place] [address]- 2546 Mar, [facility] [address]00565100[place] [address]- 2546 Feb, [facility] [place] [id number] [place] [id number] Feb, [facility] [place] [id number] [place] [id number] Feb, [facility] [place] [id number] [place] [id number] Feb, Diabetes with neurological manifestations, type II or unspecified type, 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.60 [facility] [place] [id number] [place] [id number] Feb, [facility] [address]00565100[place] [address]- 2546 Feb, [facility] [place] [id number] [place] [id number] Feb, [facility] [place] [id number] [place] [id number] Feb, Follow up V67.9 ; Diabetes with neurological manifestations, type II or unspecified type, 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.60 and Congestive heart failure 428.0 [facility] [place] [id number] [place] [id number] Jan, [facility] [id number] [place] [id number] Jan, [facility] [place] [address] [id number] [place] [id number] Jan, [facility] [place] [id number] [place] 127831114 December, Otitis media with effusion 381.4 ; Left arm numbness 782.0 and Osteoporosis 733.00 [facility] [place] [id number] [place] [id number] December, [facility] [place] [address] [id number] [place] [id number] Nov, [facility] [address] [facility] [id number] [place] [id number] Nov, Serous otitis media 381.4 and Lumbago 724.2 [facility] [place] [facility] [address]005[address]100[place] [address]- 1816 14 Nov, 2014 [facility] [place] [facility] [address]00565100[place] [address]- 2546 Nov, [facility] [id number] [place] 155925757 Oct, [facility] [place] [facility] [address]00565100[place] [address]- 3246 Oct, [facility] [id number] [place] [id number] Oct, [facility] [place] [facility] [address]00565100[place] [address]- 1396 Oct, [facility] [id number] [place] 797852414 Oct, [facility] [place] [facility] [address]00565100[place], [place] [address]- 4486 Oct, [facility] [place] [facility] [address]00565100[place], [place] [address]- 9296 Sep, [facility] [place] [facility] [address]00565100[place] [address]- 1626 Sep, [facility] [address] [id number] [place] 852297983 Sep, [facility] [place] [facility] [address] [id number], [place] [address]- 2066 Sep, [facility] [address] [id number] [place] [id number] Aug, [facility] [place] [facility] [address] [id number] [address]- 2546 Aug, [facility] [id number] [place] [id number] Aug, [facility] [place] [facility] [address] [facility] [id number] [address]- 1756 Aug, [facility] [address] [id number] [place] [id number] Jul, [facility] [place] [facility] [address] [facility] [id number] [address] 2546 Jul, [facility] [address] [id number] [place] [id number] Jul, [facility] [place] [facility] [address] [facility] [id number] [place] [address] 2546 Jul, [facility] [address] [id number] [place] [id number] Jul, [facility] [place] [facility] [address] [facility] [id number] [address] 2546 Jul, [facility] [address] [facility] [id number] [place] [id number] Jun, [facility] [place] [facility] [address] [facility] [id number] [address]- 6811 Jun, [facility] [address] [facility] [id number] [place] [id number] May, [facility] [place] [facility] [address] [facility] [id number] [address]- 1096 May, [facility] [address] [facility] [id number] [place] [id number] May, [facility] [place] [facility] [address] [facility] [id number] [address]- 2276 May, [facility] [address] [id number] [place] 188884183 May, [facility] [place] [facility] [address] [facility] [id number] [address] 2546 May, [facility] [address] [id number] [place] [id number] May, [facility] [address] [id number] [place] [id number] May, [facility] [place] [facility] [address] [facility] [id number] [address]- 7729 May, [facility] [place] [facility] [address] [facility] [id number] [address]- 9521 May, [facility] [address] [id number] [place] 102237935 May, [facility] [place] [facility] [address] [facility] [id number] [address]- 8477 May, [facility] [place] [facility] [address] [facility] [id number] [address]- 5235 Apr, [facility] [address] [facility] [id number] [place] [id number] Apr, [facility] [place] [facility] [address] [facility] [id number] [address]- 6184 Apr, [facility] [address] [id number] [place] 767114769 Apr, [facility] [address] [facility] [id number] [place] [id number] Apr, [facility] [place] [facility] [address] [facility] [id number] [address]- 6679 Apr, [facility] [place] [facility] [address] [facility] [id number] [address]- 3864 Apr, [facility] [address] [id number] [place] [id number] Apr, [facility] [place] [facility] [address] [facility] [id number] [address]- 8832 Apr, [facility] [address] [facility] [id number] [place] 915742564 Apr, [facility] [place] [facility] [address] [facility] [id number][place] [address]- 5859 Apr, [facility] [address] [facility] [id number] [place] [id number] Apr, [facility] [place] [facility] [address] [facility] [id number] [address]- 2967 Apr, [facility] [address] [id number] [place] [id number] Apr, [facility] [place] [facility] [address] [facility] [id number] [address]- 6709 Apr, [facility] [address] [id number] [place] [id number] Apr, [facility] [place] [facility] [address] [facility] [id number] [address]- 2509 Apr, [facility] [address] [id number] [place] [id number] Apr, [facility] [place] [facility] [address] [facility] [id number] [place] [address]- 1733 Apr, [facility] [address] [id number] [place] [id number] Mar, [facility] [place] [facility] [address] [facility] [id number][place] [address]- 8643 Mar, [facility] [address] [id number] [place] [id number] Mar, [facility] [address] [id number] [place] [id number] Mar, [facility] [place] [facility] [address] [facility] [id number][place] [address]- 6852 Mar, [facility] [place] [facility] [address] [facility] [id number] [address]- 3056 Mar, [facility] [address] [id number] [place] [id number] Mar, [facility] [place] [facility] [address] [id number] [address]- 8731 Mar, [facility] [address] [id number] [place] [id number] Mar, [facility] [place] [facility] [address] [facility] [id number] [address]- 8142 Mar, [facility] [address] [id number] [place] 885537845 Mar, [facility] [place] [facility] [address] [id number] [place] [address]- 6837 Mar, [facility] [address] [id number] [place] 059670357 Mar, [facility] [place] [facility] [address] [id number] [place] [address]- 3772 Mar, [facility] [address] [id number] [place] 879819428 Mar, [facility] [place] [facility] [address] [id number] [place] [address]- 1685 Mar, [facility] [address] [id number] [place] [id number] Mar, [facility] [place] [facility] [address] [facility] [id number] [place] [address]- 9098 Mar, [facility] [address] [id number] [place] 075617551 Mar, [facility] [place] [facility] [address] [id number] [place] [address]- 2941 Mar, [facility] [address] [id number] [place] [id number] Feb, [facility] [place] [facility] [address] [facility] [id number] [address]- 4885 Feb, [facility] [address] [id number] [place] [id number] Feb, [facility] [place] [facility] [address] [facility] [id number] [place] [address]- 0309 Feb, [facility] [address] [id number] [place] 967381067 Feb, [facility] [place] [facility] [address] [facility] [id number] [place] [address]- 0445 Feb, [facility] [address] [id number] [place] [id number] Feb, [facility] [place] [facility] [address] [id number] [address]- 5767 Feb, [facility] [address] [id number] [place] [id number] Feb, [facility] [place] [facility] [address] [facility] [id number] [place] [address]- 8180 Feb, [facility] [address] [id number] [place] 279421498 Feb, [facility] [place] [facility] [address] [id number] [place] [address]- 5924 Feb, [facility] [address] [id number] [place] 024644251 Feb, [facility] [place] [facility] [address] [facility] [id number] [place] [address]- 7152 Feb, [facility] [address] [id number] [place] 887375236 Feb, [facility] [place] [facility] [address] [facility] [id number] [address]- 2258 Feb, [facility] [address] [id number] [place] 482648823 Feb, [facility] [place] [facility] [address] [facility] [id number] [place] [address]- 8476 Feb, [facility] [address] [id number] [place] 160449949 Feb, [facility] [address] [id number] [place] 064633122 Feb, [facility] [place] [facility] [address] [facility] [id number] [address]- 2132 Feb, [facility] [place] [facility] [address] [id number] [address]- 8612 Feb, [facility] [address] [id number] [place] [id number] Feb, [facility] [place] [facility] [address] [facility] [id number] [place]- 8156 Feb, [facility] [address] [id number] [place] 699286591 Feb, [facility] [place] [facility] [address] [id number] [place] [address]- 9464 Feb, [facility] [address] [id number] [place] [id number] Feb, [facility] [place] [facility] [address] [facility] [id number] [place] [address]- 3015 Feb, [facility] [address] [id number] [place] [id number] Jan, [facility] [place] [facility] [address] [id number] [place] [address]- 2380 Jan, [facility] [place] [facility] [address] [facility] [id number] [place] [address]- 6050 Jan, [facility] [place] [facility] [address] [facility] [id number] [place] [address]- 9735 Jan, [facility] [place] [facility] [address] [facility] [id number] [place] [address]- 6219 Jan, [facility] [place] [facility] [address] [facility] [id number] [place] [address]- 4799 Jan, [facility] [address] [facility] [id number] [place] 925344403 Jan, [facility] [place] [facility] [address] [facility] [id number] [address]- 0921 Jan, [facility] [place] [facility] [address] [facility] [id number] [address]- 5848 Jan, [facility] [place] [facility] [address] [id number], [place] [address]- 3638 Jan, [facility] [address] [id number] [place] [id number] Jan, [facility] [place] [address] [id number] [place] [id number] Jan, [facility] [place] [facility] [address] [facility] [id number], [place] 43019402- 1643 Jan, [facility] [place] [facility] [address] [id number] [place] [address]- 1276 Jan, [facility] [address] [id number] [place] 470697102 Jan, [facility] [address] [id number] [place] 526312534 Jan, [facility] [place] [facility] [address] [facility] [id number] [place] [address]- 7146 Jan, [facility] [place] [facility] [address] [id number] [place] [address]- 3586 Jan, [facility] [place] [facility] [address] [facility] [id number] [place] [address]- 1805 Jan, [facility] [address] [facility] [id number] [place] [id number] December, [facility] [place] [facility] [address] [facility] [id number] [place] [address]- 6576 December, [facility] [place] [facility] [address] [facility] [id number][place] [address]- 2920 December, [facility] [address] [id number] [place] 901688014 December, [facility] [place] [facility] [address] [facility] [id number] [address]- 6216 December, [facility] [address] [facility] [id number] [place] 006334583 December, [facility] [place] [facility] [address] [facility] [id number][place] [address]- 5186 December, [facility] [address] [id number] [place] [id number] December, [facility] [place] [facility] [address] [facility] [id number][place] [address]- 1946 December, [facility] [address] [id number] [place] 378043476 Nov, [facility] [place] [facility] [address] [facility] [id number] [address]- 1309 Nov, [facility] [address] [facility] [id number] [place] 917509291 Nov, [facility] [place] [facility] [address] [facility] [id number] [place] [address]- 3399 Nov, [facility] [place] [facility] [address] [facility] [id number] [place] [address]- 5379 Nov, [facility] [place] [facility] [address] [facility] [id number] [place] [address]- 7204 Nov, [facility] [place] [facility] [address] [facility] [id number] [place] [address]- 5738 Oct, [facility] [address] [facility] [id number] [place] 734752482 Oct, [facility] [place] [facility] [address] [facility] [id number][place] [address]- 6744 Oct, [facility] [address] [facility] [id number] [place] 361485694 Oct, [facility] [place] [facility] [address] [facility] [id number] [address] Oct, [facility] [place] [address] [facility] [id number] [place] [id number] Sep, [facility] [address] [facility] [id number] [address] Sep, [facility] [place] [address] [facility] [id number] [place] [id number] Aug, [facility] [address] [facility] [id number] [address] Aug, [facility] [address] [facility] [id number] [place] [id number] Aug, [facility] [address] [facility] [id number][place] [address] Aug, [facility] [address] [facility] [id number] [address] Aug, [facility] [place] [address] [id number] [place] [id number] Aug, [facility] [address] [facility] [id number][place] [address] Aug, [facility] [address] [facility] [id number] [address] Aug, [facility] [place] [address] [facility] [id number] [place] [id number] Aug, [facility] [address] [facility] [id number], [place] [address] Aug, [facility] [place] [address] [facility] [id number] [place] [id number] Jul, [facility] [address] [facility] [id number], [place] [address] Jul, [facility] [address] [facility] [id number] [place] [id number] Jul, [facility] [address] [facility] [id number], [place] [address] Jul, [facility] [place] [address] [facility] [id number] [place] [id number] Jul, [facility] [address] [facility] [id number], [place] [address] Jul, [facility] [place] [address] [facility] [id number] [place] [id number] Jul, [facility] [address] [facility] [id number][place] [address] Jul, [facility] [place] [address] [facility] [id number] [place] [id number] Jun, [facility] [address] [facility] [id number], [place] [address] Jun, [facility] [place] [address] [facility] [id number] [place] [id number] Jun, [facility] [address] [facility] [id number][place] [address] Jun, [facility] [address] [facility] [id number][place] [address] Jun, [facility] [address] [facility] [id number], [place] [address] Jun, [facility] [place] [address] [id number] [place] [id number] Apr, [facility] [place] [address] [id number] [place] [id number] Mar, [facility] [place] [address] [id number] [place] [id number] Mar, [facility] [place] [address] [id number] [place] [id number] Feb, [facility] [place] [address] [id number] [place] [id number] Feb, [facility] [place] [address] [id number] [place] [address] Feb, [facility] [place] [address] [id number] [place] [id number] December, [facility] [place] [address] [id number] [place] [id number] December, [facility] [address] [facility] [id number] [address] December, [facility] [place] [address] [id number] [place] [id number] December, [facility] [place] [address] [id number] [place] [id number] December, [facility] [address] [id number] [place] [address] Nov, [facility] [place] [address] [id number] [place] [address] Nov, [facility] [place] [address] [id number] [place] [address] Nov, [facility] [address] [id number] [place] [id number] Oct, [facility] [place] [address] [id number] [place] [id number] Sep, [facility] [address] [id number] [place] [address] Aug, [facility] [address] [facility] [id number][place] [address] Aug, [facility] [address] [id number] [place] [address] Aug, [facility] [place] [address] [id number] [place] [id number] Jul, [facility] [address] [facility] [id number] [address] Jul, [facility] [address] [id number] [place] [id number] Jul, [facility] [address] [facility] [id number][place] [address] Jul, [facility] [place] [address] [id number] [place] [id number] Jun, [facility] [facility] [address] [facility] [id number] [address] Jun, [facility] [address] [id number] [place] [id number] May, [facility] [address] [facility] [id number] [address] May, [facility] [address] [id number] [place] [id number] May, [facility] [address] [facility] [id number] [address] May, [facility] [address] [id number] [place] [id number] Apr, [facility] [address] [id number] [place] [id number] Apr, [facility] [address] [id number] [place] [id number] Mar, [facility] [address] [id number] [place] [id number] Mar, [facility] [place] [address] [id number] [place] [id number] Feb, [facility] [place] [address] [id number] [place] [id number] Feb, [facility] [place] [address] [id number] [place] [id number] Jan, [facility] [place] [address] [id number] [place] [id number] Jan, [facility] [place] [address] [id number] [place] [id number] Jan, [facility] [place] [address] [id number] [place] [id number] Jan, [facility] [address] [id number] [place] [id number] December, [facility] [address] [id number] [place] [id number] December, [facility] [address] [facility] [id number], [place] [address] Nov, [facility] [address] [id number] [place] [id number] Nov, [facility] [address] [id number] [place] [id number] Nov, [facility] [address] [id number] [place] [id number] Nov, [facility] [address] [id number] [place] [id number] Nov, [facility] [address] [facility] [id number], [place] [address] Oct, [facility] [address] [facility] [id number], [place] [address] Oct, [facility] [address] [id number] [place] [id number] Oct, [facility] [address] [id number] [place] [id number] Oct, [facility] [address] [id number] [place] [id number] Oct, [facility] [place] [address] [id number] [place] [id number] Oct, [facility] [place] [address] [id number] [place] [id number] Oct, [facility] [address] [id number] [place] [id number] Oct, [facility] [place] [address] [id number] [place] [id number] Oct, [facility] [address] [facility] [id number] [address] Oct, [facility] [place] [address] [id number] [place] [id number] Sep, [facility] [place] [address] [id number] [place] [id number] Sep, [facility] [place] [address] [id number] [place] [id number] Aug, [facility] [address] [id number] [place] [id number] Aug, [facility] [id number], [place] [address] Jul, [facility] [address] [id number] [address] Jul, [facility] [id number], [place] [address] Jul, [facility] [id number], [place] [address] Jul, [facility] [id number], [place] [address] Jul, [facility] [id number] [address] Jul, [facility] [id number] [address] Jul, [facility] [id number], [place] [address] Jul, [facility] [address] [facility] [id number], [place] [address] Jul, [facility] [address] [id number], [place] [address] Jul, [facility] [address] [id number], [place] [address] Jul, [facility] [address] [id number], [place] [address] Jul, [facility] [address] [facility] [id number][place] [address] Jul, [facility] [address] [id number], [place] [address] Jul, IMMUNIZATIONS No Known Immunizations SOCIAL HISTORY Never Assessed REASON FOR VISIT refill on SSD cream PLAN OF CARE VITAL SIGNS MEDICATIONS Unknown [...] Surgical History Left eye retinal eye repair ([facility]) 06/2014 Surgical History amputation, toe-right third toe ([facility]) 2013 Surgical History Right eye retinal eye repair ([facility]) 09/2014 Surgical History heart cath with [...]
--- OUTSIDE RECORDS SUMMARY | 2018-06-20 10:52 | XMS REPORT ---
Author Author SATINDER GOOD Organization [facility] Address [address] [place] [address] Care Team Providers Care Bridge/Structure Inspection Team Leader Name Role Phone SATINDER GOOD Unavailable PROBLEMS Type Condition ICD9-CM Code CLL07-MB Code Onset Dates Condition Status SNOMED Code Problem Peripheral vascular disease I73.9 Active 659573034 Problem Coronary artery disease involving ouzinkie coronary artery of ouzinkie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 Active [id number] Problem S/P coronary artery stent placement Z95.5 Active 683239795 Problem Chronic obstructive pulmonary disease, unspecified COPD type J44.9 Active 13049810 Problem Type 2 diabetes mellitus with diabetic neuropathy E11.40 Active 46858119 Problem Bilateral low back pain without sciatica M54.5 Active 566227633 Problem 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 Active 887224282 Problem 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 Active 570815577 Problem Hypercholesterolemia E78.0 Active 73824965 Problem Comprehensive diabetic foot examination, type 2 DM, encounter for E11.9 Active 47076946 Problem Type 2 diabetes mellitus with diabetic polyneuropathy E11.42 Active 387676410 Problem Obesity (BMI 30.0-34.9) E66.9 Active 698021166850901 Problem Personal history of carotid stenosis Z86.79 Active 904631379 Problem Aphasia R47.01 Active 58945766 Problem Chronic diarrhea K52.9 Active 681834271 Problem Uses walker Z99.89 Active 757288060 Problem Chronic fatigue R53.82 Active 49727162 Problem Mixed stress and urge urinary incontinence N39.46 Active 737230212 Problem Chronic pain syndrome G89.4 Active 819074805 Problem High risk medication use Z79.899 Active 444261068 Problem Osteomyelitis of right foot, unspecified chronicity M86.9 Active 33304985 Problem Fatigue, unspecified type R53.83 Active 98051494 Problem Diabetes type 2, uncontrolled E11.65 Active 769407663 Problem Full incontinence of feces R15.9 Active 645253573227613 Problem Other chronic pain G89.29 Active 30951793 Problem Functional diarrhea K59.1 Active 47141430 Problem Fecal urgency R15.2 Active 59228419 Problem Depression F32.9 Active 01364850 Problem CKD (chronic kidney disease), stage 3 (moderate) N18.3 Active 615713049 Problem Hyperlipidemia, unspecified hyperlipidemia E78.5 Active 83334463 Problem CKD (chronic kidney disease) stage 3, GFR 30-59 ml/min N18.3 Active 026453283 Problem Type 2 diabetes mellitus with diabetic peripheral angiopathy without gangrene E11.51 Active 047161295 Problem Pain in left shoulder M25.512 Active 73144005 Problem Insulin long-term use Z79.4 Active 194182529 Problem Essential hypertension I10 Active 09814363 Problem Type 2 diabetes mellitus with diabetic retinopathy, macular edema presence unspecified, with unspecified retinopathy severity E11.319 Active 10907559 Problem Chronic kidney disease, unspecified N18.9 Active 488234462 Problem Type 2 diabetes mellitus with foot ulcer E11.621 Active 620780642 Problem Frequent falls R29.6 Active 861750002 Problem GERD without esophagitis K21.9 Active 142163977 Problem Mixed hyperlipidemia E78.2 Active 571847759 ALLERGIES No Known Allergies ENCOUNTERS Encounter Location Date Diagnosis [facility] [address] [facility] [id number], [place] [id number] May, [facility] [address] [facility] [id number][place] [id number] Apr, [facility] [id number], [place] [phone] Apr, [facility] [place] [address] [facility] [id number], [place] [phone] Apr, Essential hypertension I10 [facility] [place] [address] [facility] [id number] [place] [address] [id number] Mar, Other chronic pain G89.29 [facility] [place] [address] [id number], [place] [phone] Mar, [facility] [place] [address] [place] [id number] [place] [address] [id number] Feb, Other chronic pain G89.29 [facility] [address] [id number] [place] [id number] Feb, [facility] [id number] [place] [address] [id number] Feb, [facility] [address] [id number] [place] [address] [id number] Feb, Diabetes type 2, uncontrolled E11.65 [facility] [address] [id number] [place] [address] [id number] Feb, Other chronic pain G89.29 [facility] [address] [id number] [place] [id number] Jan, [facility] [address] [id number] [place] [id number] Jan, [facility] [address] [id number] [place] [address] [id number] Jan, [facility] [address] [id number] [place] [address] [id number] Jan, Other chronic pain G89.29 [facility] [address] [id number] [place] [address] [id number] December, Mixed stress and urge urinary incontinence N39.46 [facility] [place] [address] [id number] [place] [address] [id number] December, Chronic fatigue R53.82 [facility] [place] [address] [id number] [place] [address] [id number] December, Other chronic pain G89.29 [facility] [place] [address] [id number], [place] [id number] December, Diabetes type 2, uncontrolled E11.65 ; [...] type J44.9 and Other chronic pain G89.29 [facility] [address]00565100[place] [address] December, [place] [id number] [place] [address] [id number] December, Medicare annual wellness visit, subsequent Z00.00 ; Type 2 diabetes mellitus with diabetic polyneuropathy E11.42 ; Chronic obstructive pulmonary disease, unspecified COPD type J44.9 ; Depression F32.9 ; Peripheral vascular disease I73.9 ; Coronary artery disease involving ouzinkie coronary artery of ouzinkie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 ; Hypercholesterolemia E78.0 ; GERD without esophagitis K21.9 and Chronic kidney disease, unspecified N18.9 [place] [id number] [place] [address] [id number] December, Mixed stress and urge urinary incontinence N39.46 ; Full incontinence of feces R15.9 ; Fecal urgency R15.2 ; Functional diarrhea K59.1 and Type 2 diabetes mellitus with diabetic neuropathy E11.40 [place] [id number] [place] [address] [id number] Nov, Other chronic pain G89.29 [place] [address] [place] [address] [id number] Oct, [place] [address] [place] [address] [id number] Oct, [address] [id number] Oct, Other chronic pain G89.29 [place] [address] [place] [address] [id number] Sep, Other chronic pain G89.[address] [id number] Aug, CKD (chronic kidney disease), stage 3 (moderate) N18.3 ; Anemia, unspecified type D64.9 and Dilated pore of Ly L70.8 [place] [id number] [place] [address] [id number] Aug, Other chronic pain G89.29 ; Pain in left shoulder M25.512 ; High risk medication use Z79.899 ; Uses walker Z99.89 ; Diabetes type 2, uncontrolled E11.65 and Depression F32.9 [place] [address] [place] [address] [id number] Aug, Chronic diarrhea K52.9 [place] [address] [place] [address] [id number] Aug, Chronic diarrhea K52.9 ; Type 2 diabetes mellitus with diabetic neuropathy E11.40 ; Diabetes type 2, uncontrolled E11.65 ; Insulin long-term use Z79.4 ; Chronic obstructive pulmonary disease, unspecified COPD type J44.9 ; Chronic pain syndrome G89.4 ; Pain in left shoulder M25.512 ; Uses walker Z99.89 ; S/P coronary artery stent placement Z95.5 ; Mixed hyperlipidemia E78.2 and Essential hypertension I10 [place] [address] [place] [address] [id number] Aug, [place] [address] [place] [address] [id number] Jul, Diabetes type 2, uncontrolled E11.65 [place] [address] [place] [address] [id number] Jul, Diabetes type 2, uncontrolled E11.65 ; Type 2 diabetes mellitus with diabetic neuropathy E11.40 ; Insulin long-term use Z79.4 and Chronic obstructive pulmonary disease, unspecified COPD type J44.9 [address] [place] [address] [id number] Jun, [place] [address] [place] [address] [id number] Jun, Essential hypertension I10 [place] [address] [place] [address] [id number] Jun, Essential hypertension I10 [address] [id number] Jun, Type 2 diabetes mellitus with diabetic neuropathy E11.40 ; Type 2 diabetes mellitus with diabetic polyneuropathy E11.42 ; S/P coronary artery stent placement Z95.5 ; Obesity (BMI 30.0-34.9) E66.9 ; Mixed hyperlipidemia E78.2 ; Frequent falls R29.6 ; Chronic obstructive pulmonary disease, unspecified COPD type J44.9 ; Essential hypertension I10 ; Insulin long-term use Z79.4 and High risk medication use Z79.899 [address] [place] [address] [id number] May, Diarrhea, unspecified type R19.7 ; Type 2 diabetes mellitus with diabetic neuropathy E11.40 ; Chronic obstructive pulmonary disease, unspecified COPD type J44.9 ; S/P coronary artery stent placement Z95.5 ; High risk medication use Z79.899 ; Essential hypertension I10 ; Encounter for administration of vaccine Z23 and Encounter for immunization Z23 [address] [id number] [id number] May, Chronic obstructive pulmonary disease, unspecified COPD type J44.9 [address] [place] [address] [id number] May, Type 2 diabetes mellitus with diabetic polyneuropathy E11.42 ; Encounter for immunization Z23 ; Needs flu shot Z23 ; Comprehensive diabetic foot examination, type 2 DM, encounter for E11.9 and Obesity (BMI 30.0-34.9) E66.9 [place] [id number] [place] [address] [id number] May, [address] [place] [address] [id number] Apr, [place] [address] [place] [address] [id number] Apr, Essential hypertension I10 and Aphasia R47.01 [place] [address] [place] [address] [id number] Apr, [place] [address] [place] [address] [id number] Apr, Type 2 diabetes mellitus with diabetic neuropathy E11.40 ; Frequent falls R29.6 ; Essential hypertension I10 ; S/P coronary artery stent placement Z95.5 ; High risk medication use Z79.899 ; Hyperlipidemia, unspecified hyperlipidemia E78.5 ; CKD (chronic kidney disease), stage 3 (moderate) N18.3 ; Pain in left shoulder M25.512 and Chronic obstructive pulmonary disease, unspecified COPD type J44.9 [facility] [place] [address] [place] [address] [id number] [place] [address] [id number] Mar, [facility] [place] [address] [id number] Mar, Type 2 diabetes mellitus with diabetic polyneuropathy E11.42 ; Leg wound, left, initial encounter S81.802A ; Hx of shoulder surgery Z98.890 ; Acute pain of left shoulder M25.512 and Fall, initial encounter W19.XXXA [facility] [place] [address] [place] [id number] [place] [address] [id number] Feb, Follow-up exam Z09 ; Hx of shoulder surgery Z98.890 ; Acute pain of left shoulder M25.512 ; Essential hypertension I10 and Leg wound, left, initial encounter S81.802A [facility] [place] [address] [place] [id number] [place] [address] [id number] Feb, [facility] [place] [address] [id number] [place] [address] [id number] Feb, [facility] [place] [address] [place] [id number] [place] [address] [id number] Feb, Chronic obstructive pulmonary disease, unspecified COPD type J44.9 [facility] [place] [address] [id number] [place] [address] [id number] Feb, [facility] [place] [address] [place] [id number] [place] [address] [id number] Jan, Generalized weakness R53.1 ; Exertional shortness of breath R06.02 and Fungal rash of trunk B36.9 [facility] [place] [address] [id number] [place] [address] [id number] Jan, [facility] [address] [id number] [place] [address] [id number] Jan, [facility] [address] [id number] [place] [address] [id number] Jan, [facility] [place] [address] [id number] [place] [address] [id number] Jan, [facility] [address] [place] [id number] [place] [address] [id number] December, High risk medication use Z79.[address] [id number], [place] [id number] December, Type 2 diabetes mellitus with diabetic neuropathy E11.40 [address]00565100[place], [place] [id number] December, High risk medication use Z79.899 [address]00565100[place] [id number] Nov, Diabetes type 2, uncontrolled E11.65 [address] [place] [address] [id number] Nov, Medicare annual wellness visit, initial Z00.00 ; Bilateral low back pain without sciatica M54.5 ; Pain in left shoulder M25.512 ; Chronic pain syndrome G89.4 ; Type 2 diabetes mellitus with diabetic polyneuropathy E11.42 ; High risk medication use Z79.899 and Encounter for immunization Z23 [address] [place] [address] [id number] Nov, Type 2 diabetes mellitus with diabetic neuropathy E11.40 ; Coronary artery disease involving ouzinkie coronary artery of ouzinkie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 and CKD (chronic kidney disease), stage 3 (moderate) N18.3 [address]00565100[place], [place] [id number] Oct, Type 2 diabetes mellitus with diabetic polyneuropathy E11.42 ; Chronic pain syndrome G89.4 ; Chronic obstructive pulmonary disease, unspecified COPD type J44.9 ; Chronic kidney disease, unspecified N18.9 and Rash R21 [place] [address] [id number][place] [id number] Oct, Type 2 diabetes mellitus with diabetic neuropathy E11.[address] [id number] [place] [address] [id number] Oct, Rash R21 and Impetigo L01.[address] [id number], [place] [id number] Oct, Chronic pain syndrome G89.4 [address] [place] [address] [id number] Oct, [facility] [id number], [place] [id number] Sep, Sebaceous cyst L72.3 [facility] [id number] [place] [address] [id number] Sep, Sebaceous cyst L72.3 [facility] [address] [place] [id number] [place] [address] [id number] Sep, Chronic pain syndrome G89.4 ; Pain in left shoulder M25.512 and Effusion of olecranon bursa, left M25.422 [facility] [address] [place] [id number] [address] Aug, [facility] [address] [place] [id number] [place] [address] [id number] Aug, [facility] [address] [place] [id number] [place] [address] [id number] Aug, Mixed hyperlipidemia E78.2 and Chronic kidney disease, unspecified N18.9 [facility] [address] [place] [id number] [place] [address] [id number] Jul, Type 2 diabetes mellitus with diabetic neuropathy E11.40 ; Essential hypertension I10 and S/P coronary artery stent placement Z95.5 [facility] [address] [place] [id number] [place] [address] [id number] Jul, 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 [address] [place] [address] [id number] Jul, Diabetes type 2, uncontrolled E11.65 ; Essential hypertension I10 and 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 [facility] [id number] [place] [address] [id number] Jul, [facility] [address] [place] [id number] [place] [address] [id number] Jul, [facility] [address] [place] [id number] [place] [address] [id number] Jul, [facility] [address] [place] [id number] [place] [address] [id number] Jul, Chronic obstructive pulmonary disease, unspecified COPD type J44.9 [address] [place] [address] [id number] Jun, CKD (chronic kidney disease), stage 3 (moderate) N18.3 and Anemia, unspecified type D64.9 [place] [address] [place] [address] [id number] Jun, Type 2 diabetes mellitus with diabetic neuropathy E11.40 ; Decreased GFR R94.4 ; CKD (chronic kidney disease), stage 3 (moderate) N18.3 and Decreased hemoglobin R71.0 [place] [address] [place] [address] [id number] Jun, CKD (chronic kidney disease), stage 3 (moderate) N18.3 and Anemia, unspecified type D64.9 [address] [place] [address] [id number] Jun, Type 2 diabetes mellitus with diabetic neuropathy E11.40 ; Decreased GFR R94.4 and CKD (chronic kidney disease), stage 3 (moderate) N18.3 [place] [address] [place] [address] [id number] Jun, Type 2 diabetes mellitus with diabetic neuropathy E11.40 and Essential hypertension I10 [place] [address] [place] [address] [id number] Jun, [place] [address] [place] [address] [id number] Jun, [place] [address] [place] [address] [id number] Jun, Type 2 diabetes mellitus with diabetic neuropathy E11.40 ; S/P coronary artery stent placement Z95.5 ; Chronic obstructive pulmonary disease, unspecified COPD type J44.9 ; Essential hypertension I10 ; GERD without esophagitis K21.9 ; Peripheral vascular disease I73.9 ; Mixed hyperlipidemia E78.2 and Hospital discharge follow-up Z09 [place] [address] [place] [address] [id number] Jun, [address] [id number] May, Depression F32.9 and Hyperlipidemia, unspecified hyperlipidemia E78.5 [facility] [address]005[address]100[place], [place] [address] May, [place] [address] [place] [address] [id number] May, [place] [address] [place] [address] [id number] May, Essential hypertension I10 ; Chronic pain syndrome G89.4 ; Pain in left shoulder M25.512 ; High risk medication use Z79.899 ; Chronic obstructive pulmonary disease, unspecified COPD type J44.9 ; S/P coronary artery stent placement Z95.5 ; Personal history of carotid stenosis Z86.79 ; Hyperlipidemia, unspecified hyperlipidemia E78.5 ; Decreased GFR R94.4 and Type 2 diabetes mellitus with diabetic polyneuropathy E11.42 [place] [address] [place] [address] [id number] May, Hemoglobin decreased R71.0 and Decreased GFR R94.4 [place] [address] [place] [address] [id number] May, Hemoglobin decreased R71.0 and Decreased GFR R94.4 [place] [address] [place] [address] [id number] May, [place] [address] [place] [address] [id number] May, [place] [address] [place] [address] [id number] Apr, [place] [address] [place] [address] [id number] Apr, Type 2 diabetes mellitus with foot [...] unspecified hyperlipidemia E78.5 and Essential hypertension I10 [place] [id number] Apr, [facility] [address] [id number], [place] [id number] Mar, [facility] [address] [id number], [place] [id number] Mar, [facility] [address]100[place], [place] [address] Mar, [facility] [address] [id number] [place] [address] [id number] Feb, [facility] [id number] [place] [id number] Feb, [facility] [address] [place] [id number] [place] [address] [id number] Feb, [facility] [id number] [place] [address] [id number] Jan, Type 2 diabetes mellitus with diabetic polyneuropathy E11.42 ; Hypercholesterolemia E78.0 ; Chronic pain syndrome G89.4 ; Pain in left shoulder M25.512 and High risk medication use Z79.899 [facility] [id number], [place] [id number] Jan, [facility] [id number] [place] [address] [id number] Jan, [facility] [id number] [place] [address] [id number] December, [facility] [id number] [place] [address] [id number] December, [facility] [address], [place] [address] December, Diabetes type 2, uncontrolled E11.65 ; Type 2 diabetes mellitus with diabetic neuropathy E11.40 ; Peripheral vascular disease I73.9 ; 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 and 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 [facility] [id number], [place] [id number] Nov, [facility] [address] [id number] [place] [address] [id number] Nov, [facility] [place] [address] [id number], [place] [id number] Nov, [facility] [place] [address] [id number] [place] [address] [id number] Nov, Right hip pain M25.551 [facility] [address], [place] [address] Nov, [facility] [address] [id number] [place] [address] Nov, [facility] [address] [id number], [place] [id number] Nov, Diabetes with neurological manifestations, type II or unspecified type, 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.60 [facility] [place] [address] [id number] [place] [address] [id number] Nov, [facility] [address] [id number] [place] [address] [id number] Nov, [facility] [address] [id number], [place] [id number] Oct, Diabetes type 2, uncontrolled E11.65 ; Type 2 diabetes mellitus with diabetic neuropathy, unspecified E11.40 and Low back pain M54.5 [facility] [place] [address] [id number], [place] [id number] Oct, [facility] [place] [address] [id number], [place] [id number] Oct, [facility] [place] [address] [id number], [place] [id number] Oct, [facility] [place] [address] [id number], [place] [id number] Sep, [facility] [address] [id number], [place] [id number] Sep, [facility] [address], [place] [address] Sep, [facility] [address] [id number], [place] [id number] Sep, [facility] [address] [id number] [place] [address] [id number] Sep, [facility] [address] [place] [address] [id number], [place] [id number] Aug, 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 [facility] [id number], [place] [id number] Aug, [facility] [address] [id number], [place] [id number] Aug, Allergic rhinitis due to pollen J30.[address] [id number], [place] [id number] Jul, [facility] [id number] [place] [address] [id number] Jul, [facility] [id number] [place] [address] [id number] Jul, [facility] [id number] [place] [address] [id number] Jun, [facility] [id number] [place] [address] [id number] Jun, Thumb tendonitis M77.8 and Ringing in ear, bilateral H93.[address] [id number], [place] [id number] Jun, [facility] [address] [id number], [place] [id number] May, [facility] [address]00565100[place], [place] [address] May, [facility] [id number] [place] [address]- 2546 May, Pre-op evaluation Z01.818 ; Encounter for immunization Z23 ; Type 2 diabetes mellitus with diabetic peripheral angiopathy without gangrene E11.51 ; Insulin long-term use Z79.4 ; Type 2 diabetes mellitus with foot ulcer E11.621 ; Peripheral vascular disease I73.9 ; Coronary artery disease involving ouzinkie coronary artery of ouzinkie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 ; S/P coronary artery stent placement Z95.5 ; Osteomyelitis of right foot, unspecified chronicity M86.9 and Chronic obstructive pulmonary disease, unspecified COPD type J44.9 [facility] [id number] [place] [address]00- 3924 May, [facility] [id number] [place] [address] [id number] May, [facility] [id number] [place] [address] [id number] May, Diabetes type 2, uncontrolled E11.65 ; Encounter for immunization Z23 ; Osteopenia M85.80 and Allergic rhinitis due to pollen J30.1 [facility] [id number] [place] [address] [id number] May, Lumbago 724.2 [id number] [place] [address] [phone] Apr, [facility] [id number] [place] [address] [id number] Apr, [facility] [id number] [place] [address] [phone] Apr, [facility] [id number] [place] [address] [id number] Apr, [facility] [id number] [place] [address] 84818- 0796 Mar, [facility] [id number] [place] [address] [id number] Mar, [facility] [id number] [place] [address] [id number] Mar, [facility] [id number] [place] [address] [id number] Mar, [facility] [id number] [place] [address] [id number] Mar, [facility] [id number] [place] [address] 33909- 4947 Mar, [facility] [id number] [place] [address] [id number] Mar, [facility] [id number] [place] [address] [id number] Mar, Diabetes with neurological manifestations, type II or unspecified type, 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.60 and Severe obesity (BMI 35.0-35.9 with comorbidity) 278.01 [facility] [address] [id number], [place] [id number] Mar, [facility] [address]00565100[place], [place] [address] 2546 Mar, [facility] [id number] [place] [address] 97061- 2546 Feb, [facility] [address] [id number] [place] [id number] Feb, [facility] [address] [id number] [place] [id number] Feb, [facility] [place] [id number], [place] 130[address]00490 Feb, Diabetes with neurological manifestations, type II or unspecified type, 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.60 [facility] [id number], [place] [id number] Feb, [facility] [address]00565100[place], [place] [address]- 2546 Feb, [facility] [id number], [place] [id number] Feb, [facility] [id number] [place] [id number] Feb, Follow up V67.9 ; Diabetes with neurological manifestations, type II or unspecified type, 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.60 and Congestive heart failure 428.0 [facility] [address] [id number], [place] [id number] Jan, [facility] [address] [id number] [place] [id number] Jan, [facility] [address] [id number] [place] [id number] Jan, [facility] [address] [id number] [place] 037915170 December, Otitis media with effusion 381.4 ; Left arm numbness 782.0 and Osteoporosis 733.00 [facility] [address] [id number][place] [id number] December, [facility] [id number], [place] [id number] Nov, [facility] [id number], [place] [id number] Nov, Serous otitis media 381.4 and Lumbago 724.2 [facility] [place] [facility] [id number] [place] [address] 34180- 8516 Nov, [facility] [place] [facility] [id number] [place] [address] 48156- 1696 Nov, [facility] [id number], [place] [id number] Oct, [facility] [place] [facility] [address]00565100[place], [place] [address]- 6306 Oct, [facility] [id number], [place] [id number] Oct, [facility] [place] [facility] [address]00565100[place], [place] [address]- 1395 Oct, [facility] [id number], [place] [id number] Oct, [facility] [place] [facility] [address]00565100[place], [place] [address]- 9481 Oct, [facility] [place] [facility] [address]00565100[place], [place] [address]- 1596 Sep, [facility] [place] [facility] [address] [id number], [place] [address]- 0543 Sep, [facility] [id number], [place] [id number] Sep, [facility] [place] [facility] [address]00565100[place], [place] [address]- 4946 Sep, [facility] [id number], [place] [id number] Aug, [facility] [place] [facility] [address] [facility] [id number] [place] [address]- 8336 Aug, [facility] [address] [facility] [id number] [place] [id number] Aug, [facility] [place] [facility] [address] [facility] [id number], [place] [address] 2546 Aug, [facility] [address] [facility] [id number] [place] 636782502 Jul, [facility] [place] [facility] [address] [facility] [id number] [place] [address]- 8396 Jul, [facility] [address] [facility] [id number], [place] [id number] Jul, [facility] [place] [facility] [address] [facility] [id number][place] [address]- 5736 Jul, [facility] [address] [facility] [id number], [place] 513239081 Jul, [facility] [place] [facility] [address] [facility] [id number], [place] [address]- 8456 Jul, [facility] [address] [facility] [id number], [place] 855542817 Jun, [facility] [place] [facility] [address] [facility] [id number], [place] [address]- 7176 Jun, [facility] [address] [facility] [id number], [place] [id number] May, [facility] [place] [facility] [address] [facility] [id number], [place] [address]- 4996 May, [facility] [address] [facility] [id number], [place] [id number] May, [facility] [place] [facility] [address] [facility] [id number], [place] [address]- 4126 May, [facility] [address] [facility] [id number], [place] [id number] May, [facility] [place] [facility] [address] [facility] [id number], [place] 97745114- 7515 May, [facility] [address] [id number] [place] 900568865 May, [facility] [address] [facility] [id number] [place] [id number] May, [facility] [place] [facility] [address] [facility] [id number], [place] 51740627- 8396 May, [facility] [place] [facility] [address] [facility] [id number] [place] [address]- 6615 May, [facility] [address] [facility] [id number], [place] [id number] May, [facility] [place] [facility] [address] [facility] [id number] [place] [address]- 9806 May, [facility] [place] [facility] [address] [id number], [place] [address]- 3265 Apr, [facility] [address] [facility] [id number], [place] 820725557 Apr, [facility] [place] [facility] [address] [facility] [id number], [place] [address]- 4518 Apr, [facility] [address] [id number], [place] [id number] Apr, [facility] [address] [facility] [id number], [place] 171142610 Apr, [facility] [place] [facility] [address] [facility] [id number][place] [address]- 8522 Apr, [facility] [place] [facility] [address] [facility] [id number][place] [address]- 5399 Apr, [facility] [address] [facility] [id number], [place] [id number] Apr, [facility] [place] [facility] [address] [facility] [id number], [place] [address]- 9492 Apr, [facility] [address] [facility] [id number], [place] 075950736 Apr, [facility] [place] [facility] [address] [facility] [id number], [place] [address]- 5216 Apr, [facility] [address] [id number] [place] [id number] Apr, [facility] [place] [facility] [address] [facility] [id number] [place] [address]- 2615 Apr, [facility] [address] [id number] [place] 342068179 Apr, [facility] [place] [facility] [address] [facility] [id number] [place] [address]- 1748 Apr, [facility] [address] [id number] [place] 271792832 Apr, [facility] [place] [facility] [address] [facility] [id number][place] [address]- 8897 Apr, [facility] [address] [id number] [place] [id number] Apr, [facility] [place] [facility] [address]00565100[place], [place] [address]- 8307 Apr, [facility] [address] [id number], [place] [id number] Mar, [facility] [place] [facility] [address] [facility] [id number], [place] [address]- 6987 Mar, [facility] [address] [id number], [place] 735206163 Mar, [facility] [address] [id number] [place] 870725243 Mar, [facility] [place] [facility] [address] [facility] [id number], [place] [address]- 3550 Mar, [facility] [place] [facility] [address] [facility] [id number], [place] [address]- 6926 Mar, [facility] [address] [id number] [place] 868519356 Mar, [facility] [place] [facility] [address] [facility] [id number], [place] [address]- 0749 Mar, [facility] [address] [id number] [place] 486756145 Mar, [facility] [place] [facility] [address] [id number] [place] [address]- 6045 Mar, [facility] [address] [id number] [place] 251043005 Mar, [facility] [place] [facility] [address] [id number] [place] [address]- 9466 Mar, [facility] [address] [id number] [place] 356221844 Mar, [facility] [place] [facility] [address] [id number] [place] [address]- 2857 Mar, [facility] [address] [id number] [place] 926977913 Mar, [facility] [place] [facility] [address] [facility] [id number] [place] [address]- 3152 Mar, [facility] [address] [id number] [place] 157809248 Mar, [facility] [place] [facility] [address] [id number] [place] [address]- 5275 Mar, [facility] [address] [id number] [place] 573849885 Mar, [facility] [place] [facility] [address] [facility] [id number] [place] [address]- 6878 Mar, [facility] [address] [id number] [place] 690222076 Feb, [facility] [place] [facility] [address] [facility] [id number] [place] [address]- 9232 Feb, [facility] [address] [id number] [place] 546325436 Feb, [facility] [place] [facility] [address] [facility] [id number] [place] [address]- 4809 Feb, [facility] [address] [id number] [place] 993806318 Feb, [facility] [place] [facility] [address] [id number], [place] [address]- 3716 Feb, [facility] [address] [id number] [place] 063131558 Feb, [facility] [place] [facility] [address] [facility] [id number] [place] [address]- 2950 Feb, [facility] [address] [id number] [place] 202944556 Feb, [facility] [place] [facility] [address] [facility] [id number] [place] [address]- 4569 Feb, [facility] [address] [id number] [place] 870670006 Feb, [facility] [place] [facility] [address] [facility] [id number] [place] [address]- 8318 Feb, [facility] [address] [id number] [place] 777012503 Feb, [facility] [place] [facility] [address] [facility] [id number], [place] [address]- 7204 Feb, [facility] [address] [id number] [place] 966277648 Feb, [facility] [place] [facility] [address] [facility] [id number], [place] [address]- 3776 Feb, [facility] [address] [id number] [place] 716338242 Feb, [facility] [place] [facility] [address] [facility] [id number], [place] [address]- 0217 Feb, [facility] [address] [id number] [place] 584395780 Feb, [facility] [address] [id number] [place] 540119667 Feb, [facility] [place] [facility] [address] [facility] [id number], [place] [address]- 8513 Feb, [facility] [place] [facility] [address] [facility] [id number] [place] [address]- 6898 Feb, [facility] [address] [id number], [place] 713353646 Feb, [facility] [place] [facility] [address] [id number] [place] [address]- 5234 Feb, [facility] [address] [id number] [place] 950704627 Feb, [facility] [place] [facility] [address] [facility] [id number] [place] [address]- 4933 Feb, [facility] [address] [id number] [place] 592747935 Feb, [facility] [place] [facility] [address] [id number] [place] [address]- 7668 Feb, [facility] [address] [facility] [id number] [place] 956828932 Jan, [facility] [place] [facility] [address] [facility] [id number] [place] [address]- 6798 Jan, [facility] [place] [facility] [address] [facility] [id number] [place] [address]- 2612 Jan, [facility] [place] [facility] [address] [facility] [id number] [place] [address]- 8464 Jan, [facility] [place] [facility] [address] [facility] [id number] [place] [address]- 9052 Jan, [facility] [place] [facility] [address] [facility] [id number] [place] [address]- 8988 Jan, [facility] [address] [facility] [id number] [place] 412090410 Jan, [facility] [place] [facility] [address] [id number] [place] [address]- 1661 Jan, [facility] [place] [facility] [address] [facility] [id number] [place]- 3865 Jan, [facility] [place] [facility] [address] [facility] [id number] [place] [address]- 2773 Jan, [facility] [address] [facility] [id number] [place] 095484769 Jan, [facility] [address] [id number], [place] 929705616 Jan, [facility] [place] [facility] [address] [facility] [id number] [place] [address]- 9831 Jan, [facility] [place] [facility] [address] [facility] [id number], [place] [address]- 6906 Jan, [facility] [address] [id number] [place] 680855843 Jan, [facility] [address] [id number], [place] 733951962 Jan, [facility] [place] [facility] [address] [facility] [id number] [place] [address]- 3207 Jan, [facility] [place] [facility] [address] [facility] [id number], [place] [address]- 6576 Jan, [facility] [place] [facility] [address] [facility] [id number], [place] [address]- 2026 Jan, [facility] [address] [facility] [id number], [place] 651725609 December, [facility] [place] [facility] [address] [facility] [id number], [place] [address]- 9028 December, [facility] [place] [facility] [address] [facility] [id number], [place] [address]- 4444 December, [facility] [address] [facility] [id number], [place] 240617748 December, [facility] [place] [facility] [address] [facility] [id number], [place] [address]- 7296 December, [facility] [address] [facility] [id number] [place] [id number] December, [facility] [place] [facility] [address] [facility] [id number], [place] [address]- 4666 December, [facility] [address] [facility] [id number], [place] 485502252 December, [facility] [place] [facility] [address] [facility] [id number], [place] 379833- 7509 December, [facility] [address] [id number] [place] 129059518 Nov, [facility] [place] [facility] [address] [facility] [id number] [place] [address]- 4446 Nov, [facility] [address] [id number] [place] [id number] Nov, [facility] [place] [facility] [address] [facility] [id number] [place]- 8138 Nov, [facility] [place] [facility] [address] [facility] [id number] [place] [address]- 6494 Nov, [facility] [place] [facility] [address] [facility] [id number] [place] [address]- 9809 Nov, [facility] [place] [facility] [address]00565100[place], [place] [address]- 2505 Oct, [facility] [address] [facility] [id number], [place] 188227569 Oct, [facility] [address] [facility] [id number], [place] [address] Oct, [facility] [address] [facility] [id number][place] [id number] Oct, [facility] [id number], [place] [address] Oct, [facility] [address] [id number][place] [id number] Sep, [facility] [place] [facility] [address] [facility] [id number], [place] [address] Sep, [facility] [address] [id number][place] [id number] Aug, [facility] [place] [facility] [address] [facility] [id number], [place] [address] Aug, [facility] [address] [id number][place] [id number] Aug, [facility] [place] [facility] [address]65[address], [place] [address] Aug, [facility] [place] [facility] [address] [id number], [place] [address] Aug, [facility] [address] [facility] [id number][place] [id number] Aug, [facility] [place] [facility] [address] [facility] [id number], [place] [address] Aug, [facility] [place] [facility] [address] [facility] [id number], [place] [address] Aug, [facility] [address] [facility] [id number] [place] [id number] Aug, [facility] [place] [facility] [address] [facility] [id number], [place] [address] Aug, [facility] [address] [id number] [id number] Jul, [facility] [place] [facility] [address] [facility] [id number], [place] [address] Jul, [facility] [address] [facility] [id number] [place] [id number] Jul, [facility] [place] [facility] [address] [facility] [id number], [place] [address] Jul, [facility] [address] [facility] [id number] [id number] Jul, [facility] [place] [facility] [address] [facility] [id number], [place] [address] Jul, [facility] [address] [id number][place] [id number] Jul, [facility] [place] [facility] [address] [facility] [id number], [place] [address] Jul, [facility] [address] [id number] [place] [id number] Jun, [facility] [place] [facility] [address] [facility] [id number], [place] [address] Jun, [facility] [address] [id number] [place] [id number] Jun, [facility] [address] [facility] [id number], [place] [address] Jun, [facility] [address] [facility] [id number], [place] [address] [address] Jun, [facility] [address] [facility] [id number], [place] [address] Jun, [facility] [address] [id number] [place] [id number] Apr, [facility] [address] [id number] [place] [id number] Mar, [facility] [address] [id number] [place] [id number] Mar, [facility] [address] [id number] [place] [id number] Feb, [facility] [address] [id number] [place] [id number] Feb, [facility] [address] [id number] [place] [id number] Feb, [facility] [address] [id number] [place] [id number] December, [facility] [address] [id number] [place] [id number] December, [facility] [address] [facility] [id number], [place] [address] December, [facility] [address] [id number] [place] [id number] December, [facility] [address] [id number] [place] [address] December, [facility] [address] [id number] [place] [id number] Nov, [facility] [address] [id number] [place] [id number] Nov, [facility] [address] [id number] [place] [id number] Nov, [facility] [address] [id number] [place] [id number] Oct, [facility] [address] [id number] [place] [address] Sep, [facility] [address] [id number] [place] [id number] Aug, [facility] [address] [facility] [id number], [place] [address] Aug, [facility] [address] [id number] [place] [id number] Aug, [facility] [address] [id number] [place] [address] Jul, [facility] [place] [facility] [address] [facility] [id number], [place] [address] Jul, [facility] [address] [id number][place] [id number] Jul, [facility] [place] [facility] [address] [facility] [id number], [place] [address] Jul, [facility] [address] [id number] [id number] Jun, [facility] [place] [facility] [address] [facility] [facility] [id number] [address] Jun, [facility] [address] [id number] [id number] May, [facility] [address] [facility] [id number], [place] [address] May, [facility] [address] [id number] [id number] May, [facility] [address] [facility] [id number], [place] [address] May, [facility] [address] [id number][place] [id number] Apr, [facility] [address] [id number][place] [id number] Apr, [facility] [address] [id number] [place] [id number] Mar, [facility] [address] [id number] [place] [id number] Mar, [facility] [address] [id number] [place] [id number] Feb, [facility] [address] [id number] [place] [id number] Feb, [facility] [address] [id number] [place] [id number] Jan, [facility] [address] [id number] [place] [id number] Jan, [facility] [address] [id number] [place] [id number] Jan, [facility] [address] [id number] [place] [id number] Jan, [facility] [address] [id number] [place] [id number] December, [facility] [address] [id number] [place] [id number] December, [facility] [address] [facility] [id number], [place] [address] Nov, [facility] [address] [id number] [place] [id number] Nov, [facility] [address] [id number] [place] [id number] Nov, [facility] [address] [id number] [place] [id number] Nov, [facility] [address] [id number] [place] [id number] Nov, [facility] [address] [facility] [id number], [place] [address] Oct, [facility] [address] [facility] [id number], [place] [address] Oct, [facility] [address] [id number] [place] [id number] Oct, [facility] [address] [id number] [place] [id number] Oct, [facility] [address] [id number] [place] [id number] Oct, [facility] [address] [id number] [place] [id number] Oct, [facility] [address] [id number] [place] [id number] Oct, [facility] [address] [id number] [place] [id number] Oct, [facility] [address] [id number] [place] [id number] Oct, [facility] [address] [facility] [id number], [place] [address] Oct, [facility] [address] [id number] [place] [id number] Sep, [facility] [address] [id number] [place] [id number] Sep, [facility] [address] [id number] [place] [id number] Aug, [facility] [address] [id number] [place] [id number] Aug, [facility] [id number] [id number] Jul, [facility] [id number], [place] [address] Jul, [facility] [id number] [id number] Jul, [facility] [address] [facility] [id number], [place] [address] Jul, [facility] [address] [facility] [id number][place] [address] Jul, [facility] [id number] [address] Jul, [facility] [id number], [place] [address] Jul, [facility] [address] [id number], [place] [address] Jul, [facility] [id number], [place] [address] Jul, [facility] [id number], [place] [address] Jul, [facility] [id number], [place] [address] Jul, [facility] [id number], [place] [address] Jul, [facility] [address], [place] [address] Jul, [facility] [address], [place] [address] Jul, IMMUNIZATIONS No Known Immunizations SOCIAL HISTORY Never Assessed REASON FOR VISIT Medicare AWV - Subsequent Visit PLAN OF CARE Activity Details Follow Up 1 Year Reason: VITAL SIGNS Height 69 in 2018-01-04 Weight 222.1 lbs 2018-01-04 Temperature 98.1 degrees Fahrenheit 2018-01-04 Heart Rate 88 bpm 2018-01-04 Respiratory Rate 16 2018-01-04 BMI 32.79 kg/m2 2018-01-04 Blood pressure systolic 120 mmHg 2018-01-04 Blood pressure diastolic 72 mmHg 2018-01-04 MEDICATIONS Medication Instructions Dosage Frequency Start Date End Date Duration Status Carvedilol 3.125 MG Orally 2 times a day 1/2 tablet in am and in pm 12h Active Aspirin Adult Low Strength 81 MG Orally Once a day 1 tablet 24h Active Cetirizine HCl 10 MG TAKE ONE (1) TABLET BY MOUTH DAILY. Active Levemir Flexpen 100 UNIT/ML Subcutaneous 2 times a day 46 units 12h Active ProAir HFA 108 (90 Base) mcg/act Inhalation 4 times a day 2 puffs as needed 6h Active Baclofen 20 MG TAKE ONE (1) TABLET BY MOUTH TWICE (2) DAILY IN THE MORNING AND EVENING... Active Lancets - subcutaneously 3 times a day as directed 8h Jun, Active Folic Acid 1 MG Orally Once a day 1 tablet 24h 0 days Active UltiCare Micro Pen [place] 32G X 4 MM USE TWICE DAILY... Active Escitalopram Oxalate 20 MG Orally Once a day TAKE ONE (1) TABLET BY MOUTH DAILY... 24h 0 days Active NovoLog Flexpen 100 UNIT/ML Subcutaneous 3 times a day before meals (if bs less than 90 then hold ) 5 units Aug, Active Prilosec 20 mg Orally Once a day 1 capsule 24h Active Nitroglycerin 0.4 MG Active Victoza 18 MG/3ML INJECT (1.8) MG SUBCUTANEOUSLY ONCE DAILY IN THE MORNING.... (DOES HIMSELF) Active Walker - Rolator walker with seat and hand brakes Jan, Active Lasix 20 mg Orally Once a day 1 tablet 24h Active Disposable Brief X-Large - externally 4 times a day as directed 6h December, 0 days Active Atorvastatin Calcium 40 MG TAKE ONE (1) TABLET BY MOUTH DAILY... Active Domingo Contour Test - TEST BLOOD SUGAR (4) TIMES DAILY. Active Tramadol HCl 50 mg Orally 3 times a day, must last 28 days 1 tablet 0 days Active RESULTS No Results PROCEDURES Procedure Date Ordered Result Body Site [facility] VISIT IPPE/AWV January 04, 2018 ANNUAL WELLNESS VST; PPS SUBSQT VST January 04, 2018 PT TOBACCO SCREEN RCVD TLK January 04, 2018 FALL RISK ASSESSMENT DOCD January 04, 2018 INSTRUCTIONS MEDICATIONS ADMINISTERED No Known Medications MEDICAL [...] in the future. Medical History 05/26/17 noted, longterm has ended and they feel he is [...] Surgical History Left eye retinal eye repair ([facility]) 06/2014 Surgical History amputation, toe-right third toe ([facility]) 2013 Surgical History Right eye retinal eye repair ([facility]) 09/2014 Surgical History heart cath [...]
--- OUTSIDE RECORDS SUMMARY | 2018-06-20 10:53 | XMS REPORT ---
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 Active 4571522863016 Problem S/P coronary artery stent placement Z95.5 Active 014562713 Problem Chronic obstructive pulmonary disease, unspecified COPD type J44.9 Active 87898152 Problem Type 2 diabetes mellitus with diabetic neuropathy E11.40 Active 77484761 Problem Bilateral low back pain without sciatica M54.5 Active 703698516 Problem 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 Active 410953430 Problem 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 Active 744820645 Problem Hypercholesterolemia E78.0 Active 86644698 Problem Comprehensive diabetic foot examination, type 2 DM, encounter for E11.9 Active 11477335 Problem Type 2 diabetes mellitus with diabetic polyneuropathy E11.42 Active 732807833 Problem Obesity (BMI 30.0-34.9) E66.9 Active 288704607641410 Problem Personal history of carotid stenosis Z86.79 Active 008247293 Problem Aphasia R47.01 Active 09463479 Problem Chronic diarrhea K52.9 Active 311675933 Problem Uses walker Z99.89 Active 165019119 Problem Chronic fatigue R53.82 Active 55325316 Problem Mixed stress and urge urinary incontinence N39.46 Active 106297038 Problem Chronic pain syndrome G89.4 Active 398471084 Problem High risk medication use Z79.899 Active 547195627 Problem Osteomyelitis of right foot, unspecified chronicity M86.9 Active 34386473 Problem Fatigue, unspecified type R53.83 Active 89636407 Problem Diabetes type 2, uncontrolled E11.65 Active 185698259 Problem Full incontinence of feces R15.9 Active 896453727015567 Problem Other chronic pain G89.29 Active 78412366 Problem Functional diarrhea K59.1 Active 02261315 Problem Fecal urgency R15.2 Active 76720399 Problem Depression F32.9 Active 52562351 Problem CKD (chronic kidney disease), stage 3 (moderate) N18.3 Active 604864645 Problem Hyperlipidemia, unspecified hyperlipidemia E78.5 Active 84420660 Problem CKD (chronic kidney disease) stage 3, GFR 30-59 ml/min N18.3 Active 985075762 Problem Type 2 diabetes mellitus with diabetic peripheral angiopathy without gangrene E11.51 Active 852622024 Problem Pain in left shoulder M25.512 Active 75231581 Problem Insulin long-term use Z79.4 Active 372960662 Problem Essential hypertension I10 Active 50926327 Problem Type 2 diabetes mellitus with diabetic retinopathy, macular edema presence unspecified, with unspecified retinopathy severity E11.319 Active 89305408 Problem Chronic kidney disease, unspecified N18.9 Active 762181054 Problem Type 2 diabetes mellitus with foot ulcer E11.621 Active 093980270 Problem Frequent falls R29.6 Active 960363055 Problem GERD without esophagitis K21.9 Active 321662103 Problem Mixed hyperlipidemia E78.2 Active 942752077 ALLERGIES No Information ENCOUNTERS Encounter Location Date Diagnosis [facility] [place] [id number] [place] [address] [id number] May, [facility] [id number] [place] [address] [id number] Apr, [facility] [address] [id number] [id number] Apr, [facility] [place] [address] [facility] [id number] [place] [address] [id number] Apr, Essential hypertension I10 [facility] [id number] [place] [address] [id number] Mar, Other chronic pain G89.29 [facility] [place] [address] [id number] [place] [address] [id number] Mar, [facility] [place] [id number] [place] [address] [id number] Feb, Other chronic pain G89.29 [facility] [address] [id number] [id number] Feb, [facility] [place] [id number] [place] [address] [id number] Feb, [facility] [place] [address] [id number] [place] [address] [id number] Feb, Diabetes type 2, uncontrolled E11.65 [facility] [place] [id number] [place] [address] [id number] Feb, Other chronic pain G89.29 [facility] [address] [id number] [place] [id number] Jan, [facility] [place] [address] [id number] [place] [address] [id number] Jan, [facility] [address] [id number] [place] [address] [id number] Jan, [facility] [place] [address] [id number] [place] [address] [id number] Jan, Other chronic pain G89.29 [facility] [place] [address] [id number] [place] [address] [id number] December, Mixed stress and urge urinary incontinence N39.46 [facility] [place] [address] [id number] [place] [address] [id number] December, Chronic fatigue R53.82 [facility] [place] [id number] [place] [address] [id number] December, Other chronic pain G89.29 [facility] [place] [address] [id number] [id number] December, Diabetes type 2, uncontrolled E11.65 ; [...] type J44.9 and Other chronic pain G89.29 [facility] [address]005[address] [id number] December, [place] [id number] [place] [address] [id number] December, Medicare annual wellness visit, subsequent Z00.00 ; Type 2 diabetes mellitus with diabetic polyneuropathy E11.42 ; Chronic obstructive pulmonary disease, unspecified COPD type J44.9 ; Depression F32.9 ; Peripheral vascular disease I73.9 ; 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 ; Hypercholesterolemia E78.0 ; GERD without esophagitis K21.9 and Chronic kidney disease, unspecified N18.9 [place] [id number] [place] [address] [id number] December, Mixed stress and urge urinary incontinence N39.46 ; Full incontinence of feces R15.9 ; Fecal urgency R15.2 ; Functional diarrhea K59.1 and Type 2 diabetes mellitus with diabetic neuropathy E11.40 [place] [id number] [place] [address] [id number] Nov, Other chronic pain G89.[address] [id number] Oct, [place] [id number] [place] [address] [id number] Oct, [place] [address] [place] [address] [id number] Oct, Other chronic pain G89.29 [place] [id number] [place] [address] [id number] Sep, Other chronic pain G89.29 [place] [address] [place] [address] [id number] Aug, CKD (chronic kidney disease), stage 3 (moderate) N18.3 ; Anemia, unspecified type D64.9 and Dilated pore of Ly L70.8 [place] [address] [place] [address] [id number] Aug, Other chronic pain G89.29 ; Pain in left shoulder M25.512 ; High risk medication use Z79.899 ; Uses walker Z99.89 ; Diabetes type 2, uncontrolled E11.65 and Depression F32.[address] [id number] Aug, Chronic diarrhea K52.[address] [id number] Aug, Chronic diarrhea K52.9 ; Type 2 diabetes mellitus with diabetic neuropathy E11.40 ; Diabetes type 2, uncontrolled E11.65 ; Insulin long-term use Z79.4 ; Chronic obstructive pulmonary disease, unspecified COPD type J44.9 ; Chronic pain syndrome G89.4 ; Pain in left shoulder M25.512 ; Uses walker Z99.89 ; S/P coronary artery stent placement Z95.5 ; Mixed hyperlipidemia E78.2 and Essential hypertension I10 [place] [id number] [place] [address] [id number] Aug, [address] [id number] Jul, Diabetes type 2, uncontrolled E11.65 [place] [address] [place] [address] [id number] Jul, Diabetes type 2, uncontrolled E11.65 ; Type 2 diabetes mellitus with diabetic neuropathy E11.40 ; Insulin long-term use Z79.4 and Chronic obstructive pulmonary disease, unspecified COPD type J44.9 [address] [place] [address] [id number] Jun, [place] [address] [place] [address] [id number] Jun, Essential hypertension I10 [place] [address] [place] [address] [id number] Jun, Essential hypertension I10 [address] [id number] Jun, Type 2 diabetes mellitus with diabetic neuropathy E11.40 ; Type 2 diabetes mellitus with diabetic polyneuropathy E11.42 ; S/P coronary artery stent placement Z95.5 ; Obesity (BMI 30.0-34.9) E66.9 ; Mixed hyperlipidemia E78.2 ; Frequent falls R29.6 ; Chronic obstructive pulmonary disease, unspecified COPD type J44.9 ; Essential hypertension I10 ; Insulin long-term use Z79.4 and High risk medication use Z79.899 [address] [place] [address] [id number] May, Diarrhea, unspecified type R19.7 ; Type 2 diabetes mellitus with diabetic neuropathy E11.40 ; Chronic obstructive pulmonary disease, unspecified COPD type J44.9 ; S/P coronary artery stent placement Z95.5 ; High risk medication use Z79.899 ; Essential hypertension I10 ; Encounter for administration of vaccine Z23 and Encounter for immunization Z23 [address] [id number] [id number] May, Chronic obstructive pulmonary disease, unspecified COPD type J44.9 [place] [id number] [place] [address] [id number] May, Type 2 diabetes mellitus with diabetic polyneuropathy E11.42 ; Encounter for immunization Z23 ; Needs flu shot Z23 ; Comprehensive diabetic foot examination, type 2 DM, encounter for E11.9 and Obesity (BMI 30.0-34.9) E66.[address] [id number] May, [place] [id number] [place] [address] [id number] Apr, [place] [address] [place] [address] [id number] Apr, Essential hypertension I10 and Aphasia R47.01 [place] [address] [place] [address] [id number] Apr, [place] [address] [place] [address] [id number] Apr, Type 2 diabetes mellitus with diabetic neuropathy E11.40 ; Frequent falls R29.6 ; Essential hypertension I10 ; S/P coronary artery stent placement Z95.5 ; High risk medication use Z79.899 ; Hyperlipidemia, unspecified hyperlipidemia E78.5 ; CKD (chronic kidney disease), stage 3 (moderate) N18.3 ; Pain in left shoulder M25.512 and Chronic obstructive pulmonary disease, unspecified COPD type J44.9 [facility] [address] [id number] [place] [id number] Mar, [facility] [place] [address] [id number] [place] [id number] Mar, Type 2 diabetes mellitus with diabetic polyneuropathy E11.42 ; Leg wound, left, initial encounter S81.802A ; Hx of shoulder surgery Z98.890 ; Acute pain of left shoulder M25.512 and Fall, initial encounter W19.XXXA [facility] [place] [address] [id number] [place] [id number] Feb, Follow-up exam Z09 ; Hx of shoulder surgery Z98.890 ; Acute pain of left shoulder M25.512 ; Essential hypertension I10 and Leg wound, left, initial encounter S81.802A [facility] [place] [address] [id number] [place] [id number] Feb, [facility] [id number] [place] [address] [id number] Feb, [facility] [address] [id number] [place] [id number] Feb, Chronic obstructive pulmonary disease, unspecified COPD type J44.9 [facility] [address] [id number] [place] [id number] Feb, [facility] [address] [id number] [place] [address] [id number] Jan, Generalized weakness R53.1 ; Exertional shortness of breath R06.02 and Fungal rash of trunk B36.9 [facility] [address] [id number] [place] [id number] Jan, [facility] [address] [id number] [place] [id number] Jan, [facility] [address] [id number] [place] [address] [id number] Jan, [facility] [address] [id number] [place] [address] [id number] Jan, [facility] [id number] [place] [address] [id number] December, High risk medication use Z79.899 [address] [id number] December, Type 2 diabetes mellitus with diabetic neuropathy E11.40 [address]65[address] [id number] December, High risk medication use Z79.899 [address]65[address] [id number] Nov, Diabetes type 2, uncontrolled E11.65 [place] [id number] [place] [address] [id number] Nov, Medicare annual wellness visit, initial Z00.00 ; Bilateral low back pain without sciatica M54.5 ; Pain in left shoulder M25.512 ; Chronic pain syndrome G89.4 ; Type 2 diabetes mellitus with diabetic polyneuropathy E11.42 ; High risk medication use Z79.899 and Encounter for immunization Z23 [address] [place] [address] [id number] Nov, Type 2 diabetes mellitus with diabetic neuropathy E11.40 ; 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 and CKD (chronic kidney disease), stage 3 (moderate) N18.3 [address] [id number] Oct, Type 2 diabetes mellitus with diabetic polyneuropathy E11.42 ; Chronic pain syndrome G89.4 ; Chronic obstructive pulmonary disease, unspecified COPD type J44.9 ; Chronic kidney disease, unspecified N18.9 and Rash R21 [place] [address] [facility] [address] [id number] [id number] Oct, Type 2 diabetes mellitus with diabetic neuropathy E11.[id number] [place] [address] [id number] Oct, Rash R21 and Impetigo L01.[address] [id number], [place] [id number] Oct, Chronic pain syndrome G89.4 [address] [place] [address] [id number] Oct, [facility] [id number], [place] [id number] Sep, Sebaceous cyst L72.3 [facility] [id number] [place] [address] [id number] Sep, Sebaceous cyst L72.3 [facility] [id number] [place] [address] [id number] Sep, Chronic pain syndrome G89.4 ; Pain in left shoulder M25.512 and Effusion of olecranon bursa, left M25.422 [facility] [address] [id number] [address] Aug, [facility] [id number] [place] [address] [id number] Aug, [facility] [id number] [place] [address] [id number] Aug, Mixed hyperlipidemia E78.2 and Chronic kidney disease, unspecified N18.9 [facility] [id number] [place] [address] [id number] Jul, Type 2 diabetes mellitus with diabetic neuropathy E11.40 ; Essential hypertension I10 and S/P coronary artery stent placement Z95.5 [facility] [id number] [place] [address] [id number] Jul, 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 [place] [id number] [place] [address] [id number] Jul, Diabetes type 2, uncontrolled E11.65 ; Essential hypertension I10 and 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 [facility] [id number][place] [id number] Jul, [facility] [id number] [place] [address] [id number] Jul, [facility] [id number] [place] [address] [id number] Jul, [facility] [id number] [place] [address] [id number] Jul, Chronic obstructive pulmonary disease, unspecified COPD type J44.9 [address] [place] [address] [id number] Jun, CKD (chronic kidney disease), stage 3 (moderate) N18.3 and Anemia, unspecified type D64.9 [place] [id number] [place] [address] [id number] Jun, Type 2 diabetes mellitus with diabetic neuropathy E11.40 ; Decreased GFR R94.4 ; CKD (chronic kidney disease), stage 3 (moderate) N18.3 and Decreased hemoglobin R71.[address] [id number] Jun, CKD (chronic kidney disease), stage 3 (moderate) N18.3 and Anemia, unspecified type D64.9 [place] [id number] [place] [address] [id number] Jun, Type 2 diabetes mellitus with diabetic neuropathy E11.40 ; Decreased GFR R94.4 and CKD (chronic kidney disease), stage 3 (moderate) N18.3 [place] [address] [place] [address] [id number] Jun, Type 2 diabetes mellitus with diabetic neuropathy E11.40 and Essential hypertension I10 [address] [id number] Jun, [address] [id number] Jun, [address] [id number] Jun, Type 2 diabetes mellitus with diabetic neuropathy E11.40 ; S/P coronary artery stent placement Z95.5 ; Chronic obstructive pulmonary disease, unspecified COPD type J44.9 ; Essential hypertension I10 ; GERD without esophagitis K21.9 ; Peripheral vascular disease I73.9 ; Mixed hyperlipidemia E78.2 and Hospital discharge follow-up Z09 [address] [id number] Jun, [address] [id number] May, Depression F32.9 and Hyperlipidemia, unspecified hyperlipidemia E78.5 [facility] [address]00565100[place], [place] [address] May, [place] [id number] [place] [address] [id number] May, [place] [address] [place] [address] [id number] May, Essential hypertension I10 ; Chronic pain syndrome G89.4 ; Pain in left shoulder M25.512 ; High risk medication use Z79.899 ; Chronic obstructive pulmonary disease, unspecified COPD type J44.9 ; S/P coronary artery stent placement Z95.5 ; Personal history of carotid stenosis Z86.79 ; Hyperlipidemia, unspecified hyperlipidemia E78.5 ; Decreased GFR R94.4 and Type 2 diabetes mellitus with diabetic polyneuropathy E11.42 [place] [address] [place] [address] [id number] May, Hemoglobin decreased R71.0 and Decreased GFR R94.4 [place] [address] [place] [address] [id number] May, Hemoglobin decreased R71.0 and Decreased GFR R94.4 [place] [address] [place] [address] [id number] May, [place] [address] [place] [address] [id number] May, [place] [address] [place] [address] [id number] Apr, [address] [id number] Apr, Type 2 diabetes mellitus with foot [...] unspecified hyperlipidemia E78.5 and Essential hypertension I10 [place] [address] [place] [address] [place] [id number] Apr, [facility] [id number], [place] [id number] Mar, [facility] [id number] [place] [address] [id number] Mar, [facility] [address] [place] [address] [id number] [phone] Mar, [facility] [id number] [place] [address] [id number] Feb, [facility] [id number] [place] [address] [id number] Feb, [facility] [id number] [place] [address] [id number] Feb, [facility] [id number] [place] [address] [id number] Jan, Type 2 diabetes mellitus with diabetic polyneuropathy E11.42 ; Hypercholesterolemia E78.0 ; Chronic pain syndrome G89.4 ; Pain in left shoulder M25.512 and High risk medication use Z79.899 [facility] [id number] [place] [address] [id number] Jan, [facility] [id number] [place] [address] [id number] Jan, [facility] [id number] [place] [address] [id number] December, [facility] [id number] [place] [address] [id number] December, [facility] [address] [place] [address]- [address] December, Diabetes type 2, uncontrolled E11.65 ; Type 2 diabetes mellitus with diabetic neuropathy E11.40 ; Peripheral vascular disease I73.9 ; 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 and 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 [facility] [id number] [place] [address] [id number] Nov, [facility] [id number] [place] [address] [id number] Nov, [facility] [address] [id number][place] [id number] Nov, [facility] [place] [id number] [place] [address] [id number] Nov, Right hip pain M25.551 [facility] [address], [place] [address] Nov, [facility] [id number] [place] [address]- [address] Nov, [facility] [place] [id number] [place] [address] [id number] Nov, Diabetes with neurological manifestations, type II or unspecified type, 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.60 [facility] [place] [id number] [place] [address] [id number] Nov, [facility] [place] [address] [id number] [place] [address] [id number] Nov, [facility] [id number] [place] [address] [id number] Oct, Diabetes type 2, uncontrolled E11.65 ; Type 2 diabetes mellitus with diabetic neuropathy, unspecified E11.40 and Low back pain M54.5 [facility] [id number] [place] [address] [id number] Oct, [facility] [address] [id number], [place] [id number] Oct, [facility] [place] [address] [id number], [place] [id number] Oct, [facility] [address] [id number] [place] [address] [id number] Sep, [facility] [place] [address] [id number], [place] [id number] Sep, [facility] [address], [place] [address] Sep, [facility] [place] [address] [id number], [place] [id number] Sep, [facility] [id number] [place] [address] [id number] Sep, [facility] [address] [facility] [id number][place] [id number] Aug, 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 [facility] [id number], [place] [id number] Aug, [facility] [id number], [place] [id number] Aug, Allergic rhinitis due to pollen J30.1 [address] [id number], [place] [id number] Jul, [facility] [address] [id number], [place] [id number] Jul, [facility] [id number] [place] [address] [id number] Jul, [facility] [id number] [place] [address] [id number] Jun, [facility] [id number] [place] [address] [id number] Jun, Thumb tendonitis M77.8 and Ringing in ear, bilateral H93.[address] [id number], [place] [id number] Jun, [facility] [address] [id number], [place] [id number] May, [place] [address] [address], [place] [address] May, [facility] [id number] [place] [address]- 2546 May, Pre-op evaluation Z01.818 ; Encounter for immunization Z23 ; Type 2 diabetes mellitus with diabetic peripheral angiopathy without gangrene E11.51 ; Insulin long-term use Z79.4 ; Type 2 diabetes mellitus with foot ulcer E11.621 ; Peripheral vascular disease I73.9 ; 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 ; S/P coronary artery stent placement Z95.5 ; Osteomyelitis of right foot, unspecified chronicity M86.9 and Chronic obstructive pulmonary disease, unspecified COPD type J44.9 [facility] [address]005[address], [place] [address] May, [facility] [id number] [place] [address] [id number] May, [facility] [id number] [place] [address] [id number] May, Diabetes type 2, uncontrolled E11.65 ; Encounter for immunization Z23 ; Osteopenia M85.80 and Allergic rhinitis due to pollen J30.1 [facility] [id number] [place] [address] [id number] May, Lumbago 724.2 [facility] [id number] [place] [address] [id number] Apr, [facility] [id number] [place] [address] [id number] Apr, [facility] [id number] [place] [address] [id number] Apr, [facility] [id number] [place] [address] [id number] Apr, [facility] [id number] [place] [address] 70395- 2546 Mar, [facility] [id number] [place] [address] [id number] Mar, [facility] [id number] [place] [address] [id number] Mar, [facility] [id number] [place] [address] [id number] Mar, [facility] [id number] [place] [address] [id number] Mar, [facility] [address]00565[address], [place] [address] 2547 Mar, [facility] [id number] [place] [address] [id number] Mar, [facility] [id number] [place] [address] [id number] Mar, Diabetes with neurological manifestations, type II or unspecified type, 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.60 and Severe obesity (BMI 35.0-35.9 with comorbidity) 278.01 [facility] [id number][place] [id number] Mar, [facility] [id number] [place] [address] 40795- 8755 Mar, [facility] [id number] [place] [address] 72619 2546 Feb, [facility] [id number][place] [address] Feb, [facility] [id number] [place] [address] [id number] Feb, [facility] [id number] [place] [address] [id number] Feb, Diabetes with neurological manifestations, type II or unspecified type, 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.60 [facility] [id number][place] [id number] Feb, [facility] [address]005[address], [place] [address]- 25[address] Feb, [facility] [id number][place] [id number] Feb, [facility] [id number][place] [id number] Feb, Follow up V67.9 ; Diabetes with neurological manifestations, type II or unspecified type, 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.60 and Congestive heart failure 428.0 [facility] [address] [id number][place] [id number] Jan, [facility] [address] [id number][place] [id number] Jan, [facility] [address] [id number][place] [id number] Jan, [facility] [address] [id number] [id number] December, Otitis media with effusion 381.4 ; Left arm numbness 782.0 and Osteoporosis 733.00 [facility] [id number], [place] [id number] December, [facility] [id number] [place] [address] [id number] Nov, [facility] [id number], [place] [id number] Nov, Serous otitis media 381.4 and Lumbago 724.2 [facility] [id number] [place] [address] 40221- 8816 Nov, [facility] [place] [facility] [id number] [place] [address] 47659- 4127 Nov, [facility] [id number] [place] [address] [id number] Oct, [facility] [id number] [place] [address] 42720- 5338 Oct, [facility] [id number] [place] [address] [id number] Oct, [facility] [id number] [place] [address] 45989- 7263 Oct, [facility] [id number] [place] [address] [id number] Oct, [facility] [address]00565100[place], [place] [address]- 7581 Oct, [facility] [place] [facility] [id number] [place] [address] 03095- 9456 Sep, [facility] [place] [facility] [address]00565100[place], [place] [address]- 7757 Sep, [facility] [id number], [place] [id number] Sep, [facility] [place] [facility] [address]00565100[place], [place] [address]- 7266 Sep, [facility] [id number], [place] [id number] Aug, [facility] [place] [facility] [address] [facility] [id number], [place] [address]- 9066 Aug, [facility] [address] [facility] [id number], [place] [id number] Aug, [facility] [place] [facility] [address] [facility] [id number], [place] [address]- 3316 Aug, [facility] [address] [facility] [id number], [place] [id number] Jul, [facility] [place] [facility] [address] [facility] [id number], [place] [address]- 4446 Jul, [facility] [address] [facility] [id number], [place] [id number] Jul, [facility] [place] [facility] [address] [facility] [id number], [place] [address]- 2656 Jul, [facility] [address] [id number], [place] [id number] Jul, [facility] [place] [facility] [address] [facility] [id number], [place] [address]- 1205 Jul, [facility] [address] [facility] [id number], [place] [id number] Jun, [facility] [place] [facility] [address] [facility] [id number], [place] [address]- 8891 Jun, [facility] [address] [facility] [id number], [place] [id number] May, [facility] [place] [facility] [address] [facility] [id number], [place] [address]- 5309 May, [facility] [address] [facility] [id number], [place] [id number] May, [facility] [place] [facility] [address] [facility] [id number], [place] [address]- 2730 May, [facility] [address] [facility] [id number][place] [id number] May, [facility] [place] [facility] [address] [facility] [id number], [place] [address]- 6204 May, [facility] [address] [id number] [place] [id number] May, [facility] [address] [facility] [id number] [place] [id number] May, [facility] [place] [facility] [address] [facility] [id number] [place] 4429 May, [facility] [place] [facility] [address] [facility] [id number] [place] 6535 May, [facility] [address] [id number], [place] [id number] May, [facility] [place] [facility] [address] [facility] [id number] [place] 3348 May, [facility] [place] [facility] [address] [id number], [place] [address]- 7877 Apr, [facility] [address] [facility] [id number], [place] [id number] Apr, [facility] [place] [facility] [address] [facility] [id number] [address]- 7197 Apr, [facility] [address] [id number], [place] [id number] Apr, [facility] [address] [facility] [id number], [place] [id number] Apr, [facility] [place] [facility] [address] [facility] [id number], [place] [address]- 9093 Apr, [facility] [place] [facility] [address] [facility] [id number], [place] [address]- 1228 Apr, [facility] [address] [facility] [id number], [place] [id number] Apr, [facility] [place] [facility] [address] [facility] [id number], [place] [address]- 3347 Apr, [facility] [address] [facility] [id number], [place] [id number] Apr, [facility] [place] [facility] [address] [facility] [id number], [place] [address]- 0442 Apr, [facility] [address] [id number] [place] [id number] Apr, [facility] [place] [facility] [address] [facility] [id number] [place] [address]- 6053 Apr, [facility] [address] [id number] [place] [id number] Apr, [facility] [place] [facility] [address] [facility] [id number], [place] [address]- 6617 Apr, [facility] [address] [id number] [place] [id number] Apr, [facility] [place] [facility] [address] [facility] [id number], [place] [address]- 7341 Apr, [facility] [address] [id number] [place] [id number] Apr, [facility] [place] [facility] [address]00565[address], [place] [address]- 8774 Apr, [facility] [address] [facility] [id number], [place] [id number] Mar, [facility] [place] [facility] [address]00565100[place], [place] [address]- 9441 Mar, [facility] [address] [id number], [place] [id number] Mar, [facility] [address] [id number], [place] [id number] Mar, [facility] [place] [facility] [address] [facility] [id number], [place] [address]- 6882 Mar, [facility] [place] [facility] [address] [facility] [id number], [place] [address]- 1848 Mar, [facility] [address] [id number], [place] [id number] Mar, [facility] [place] [facility] [address] [facility] [id number], [place] [address]- 1796 Mar, [facility] [address] [id number], [place] 503512583 Mar, [facility] [place] [facility] [address] [id number] [place] [address]- 4742 Mar, [facility] [address] [id number] [place] [id number] Mar, [facility] [place] [facility] [address] [facility] [id number] [place] [address]- 0238 Mar, [facility] [address] [id number] [place] [id number] Mar, [facility] [place] [facility] [address] [id number] [place] [address]- 5921 Mar, [facility] [address] [id number] [place] [id number] Mar, [facility] [place] [facility] [address] [facility] [id number] [place] [address]- 2142 Mar, [facility] [address] [id number] [place] [id number] Mar, [facility] [place] [facility] [address] [facility] [id number] [place] [address]- 1072 Mar, [facility] [address] [id number] [place] [id number] Mar, [facility] [place] [facility] [address] [facility] [id number] [place] [address]- 8339 Mar, [facility] [address] [id number] [place] [id number] Feb, [facility] [place] [facility] [address] [facility] [id number] [place] [address]- 6409 Feb, [facility] [address] [id number] [place] [id number] Feb, [facility] [place] [facility] [address] [facility] [id number] [place] [address]- 2611 Feb, [facility] [address] [id number] [place] [id number] Feb, [facility] [place] [facility] [address] [facility] [id number] [place] [address]- 9796 Feb, [facility] [address] [id number] [place] [id number] Feb, [facility] [place] [facility] [address] [id number] [place] [address]- 4221 Feb, [facility] [address] [id number] [place] [id number] Feb, [facility] [place] [facility] [address] [id number] [place] [address]- 5791 Feb, [facility] [address] [id number] [place] [id number] Feb, [facility] [place] [facility] [address] [id number] [place] [address]- 9891 Feb, [facility] [address] [id number] [place] [id number] Feb, [facility] [place] [facility] [address] [facility] [id number] [place] [address]- 4718 Feb, [facility] [address] [id number] [place] [id number] Feb, [facility] [place] [facility] [address] [facility] [id number] [place] [address]- 0967 Feb, [facility] [address] [id number] [place] [id number] Feb, [facility] [place] [facility] [address] [facility] [id number] [place] [address]- 3429 Feb, [facility] [address] [id number] [place] [id number] Feb, [facility] [address] [id number] [place] [id number] Feb, [facility] [place] [facility] [address] [facility] [id number] [place] [address]- 4030 Feb, [facility] [place] [facility] [address] [facility] [id number] [place] [address]- 1712 Feb, [facility] [address] [id number] [place] [id number] Feb, [facility] [place] [facility] [address] [id number] [place] [address]- 2287 Feb, [facility] [address] [id number] [place] [id number] Feb, [facility] [place] [facility] [address] [id number] [place] [address]- 7829 Feb, [facility] [address] [id number] [place] [id number] Feb, [facility] [place] [facility] [address] [id number] [place] [address]- 3318 Feb, [facility] [address] [id number] [place] [id number] Jan, [facility] [place] [facility] [address] [facility] [id number] [place]- 4751 Jan, [facility] [place] [facility] [address] [facility] [id number] [place] [address]- 4297 Jan, [facility] [place] [facility] [address] [facility] [id number] [place] [address]- 0172 Jan, [facility] [place] [facility] [address] [facility] [id number] [place] [address]- 1616 Jan, [facility] [place] [facility] [address] [facility] [id number] [place] [address]- 4121 Jan, [facility] [address] [id number] [place] [id number] Jan, [facility] [place] [facility] [address] [id number] [place] [address]- 3952 Jan, [facility] [place] [facility] [address] [facility] [id number] [place] [address]- 5238 Jan, [facility] [place] [facility] [address] [id number] [place] [address]- 7759 Jan, [facility] [address] [id number] [place] [id number] Jan, [facility] [address] [id number] [place] [address]80631117 Jan, [facility] [place] [facility] [address] [id number] [place] [address]- 8296 Jan, [facility] [place] [facility] [address] [id number] [place] [address]- 2546 Jan, [facility] [address] [id number] [place] [id number] Jan, [facility] [address] [id number], [place] 539476554 Jan, [facility] [place] [facility] [address] [id number] [place] [address]- 9053 Jan, [facility] [place] [facility] [address] [facility] [id number] [place] [address]- 7986 Jan, [facility] [place] [facility] [address] [facility] [id number], [place] [address]- 2923 Jan, [facility] [address] [facility] [id number], [place] [id number] December, [facility] [place] [facility] [address] [facility] [id number] [place] [address]- 4256 December, [facility] [place] [facility] [address] [facility] [id number], [place] [address]- 3717 December, [facility] [address] [facility] [id number], [place] [id number] December, [facility] [place] [facility] [address] [facility] [id number], [place] [address]- 5686 December, [facility] [address] [facility] [id number] [place] [id number] December, [facility] [place] [facility] [address] [facility] [id number], [place] [address]- 1716 December, [facility] [address] [facility] [id number], [place] 199929426 December, [facility] [place] [facility] [address] [facility] [id number] [place] [address]- 2576 December, [facility] [address] [id number] [place] [id number] Nov, [facility] [place] [facility] [address] [facility] [id number] [place] [address]- 6226 Nov, [facility] [address] [id number] [place] [id number] Nov, [facility] [place] [facility] [address] [facility] [id number] [place] [address]- 4384 Nov, [facility] [place] [facility] [address] [facility] [id number] [place] [address]- 9537 Nov, [facility] [place] [facility] [address] [facility] [id number] [place] [address]- 0457 Nov, [facility] [place] [facility] [address] [id number], [place] [address]- 3776 Oct, [facility] [address] [facility] [id number], [place] [id number] Oct, [facility] [place] [facility] [address] [facility] [id number], [place] [address]- 7544 Oct, [facility] [address] [facility] [id number] [place] [id number] Oct, [facility] [place] [facility] [address] [id number], [place] [address]- 7713 Oct, [facility] [address] [id number], [place] [id number] Sep, [facility] [place] [facility] [address] [facility] [id number], [place] [address]- 0276 Sep, [facility] [address] [id number] [place] [id number] Aug, [facility] [place] [facility] [address] [facility] [id number], [place] [address]- 8776 Aug, [facility] [address] [facility] [id number] [place] [id number] Aug, [facility] [place] [facility] [address] [facility] [id number], [place] [address]- 0663 Aug, [facility] [place] [facility] [address] [id number], [place] [address]- 3913 Aug, [facility] [address] [id number], [place] [id number] Aug, [facility] [place] [facility] [address] [facility] [id number], [place] [address]- 4156 Aug, [facility] [place] [facility] [address] [facility] [id number], [place] [address]- 9391 Aug, [facility] [address] [id number] [place] [id number] Aug, [facility] [place] [facility] [address] [facility] [id number], [place] [address]- 6605 Aug, [facility] [address] [id number] [place] [id number] Jul, [facility] [address] [facility] [id number][place] [address] Jul, [facility] [address] [id number] [place] [id number] Jul, [facility] [place] [facility] [address] [facility] [id number], [place] [address] Jul, [facility] [address] [id number][place] [id number] Jul, [facility] [place] [facility] [address] [facility] [id number], [place] [address] Jul, [facility] [address] [id number][place] [id number] Jul, [facility] [place] [address] [facility] [id number], [place] [address] Jul, [facility] [address] [id number] [place] [id number] Jun, [facility] [place] [facility] [address] [facility] [id number], [place] [address] Jun, [facility] [address] [id number] [place] [id number] Jun, [facility] [address] [facility] [id number] [place] [address] Jun, [facility] [address] [facility] [id number][place] [address] Jun, [facility] [address] [facility] [id number][place] [address] Jun, [facility] [address] [id number] [place] [id number] Apr, [facility] [address] [id number] [place] [id number] Mar, [facility] [address] [id number] [place] [id number] Mar, [facility] [address] [id number] [place] [id number] Feb, [facility] [address] [id number] [place] [id number] Feb, [facility] [address] [id number] [place] [id number] Feb, [facility] [address] [id number] [place] [id number] December, [facility] [address] [id number] [place] [id number] December, [facility] [address] [facility] [id number], [place] [address] December, [facility] [address] [id number] [place] [id number] December, [facility] [address] [id number] [place] [id number] December, [facility] [address] [id number] [place] [id number] Nov, [facility] [address] [id number] [place] [id number] Nov, [facility] [address] [id number] [place] [id number] Nov, [facility] [address] [id number] [place] [id number] Oct, [facility] [address] [id number] [place] [id number] Sep, [facility] [address] [id number] [place] [id number] Aug, [facility] [address] [facility] [id number], [place] [address] Aug, [facility] [address] [id number] [place] [id number] Aug, [facility] [address] [id number] [place] [id number] Jul, [facility] [address] [facility] [id number], [place] [address] Jul, [facility] [address] [id number][place] [id number] Jul, [facility] [address] [facility] [id number], [place] [address] Jul, [facility] [address] [id number][place] [id number] Jun, [facility] [address] [facility] [id number], [place] [address] Jun, [facility] [address] [facility] [id number][place] [id number] May, [facility] [address] [facility] [id number], [place] [address] May, [facility] [address] [id number][place] [address] May, [facility] [address] [facility] [id number], [place] [address] May, [facility] [address] [id number][place] [id number] Apr, [facility] [address] [id number][place] [id number] Apr, [facility] [address] [id number] [place] [id number] Mar, [facility] [address] [id number] [place] [id number] Mar, [facility] [address] [id number] [place] [address] Feb, [facility] [address] [id number] [place] [id number] Feb, [facility] [address] [id number] [place] [address] Jan, [facility] [address] [id number] [place] [id number] Jan, [facility] [address] [id number] [place] [id number] Jan, [facility] [address] [id number] [place] [id number] Jan, [facility] [address] [id number] [place] [id number] December, [facility] [address] [id number] [place] [address] December, [facility] [address] [id number], [place] [address] Nov, [facility] [address] [address] [id number] [place] [id number] Nov, [facility] [place] [address] [id number] [place] [id number] Nov, [facility] [place] [address] [id number] [place] [id number] Nov, [facility] [place] [address] [id number] [place] [id number] Nov, [facility] [address] [facility] [id number], [place] [address] Oct, [facility] [address] [facility] [id number], [place] [address] Oct, [facility] [address] [id number] [place] [id number] Oct, [facility] [place] [address] [id number] [place] [id number] Oct, [facility] [place] [address] [id number] [place] [id number] Oct, [facility] [place] [address] [id number] [place] [id number] Oct, [facility] [place] [address] [id number] [place] [id number] Oct, [facility] [place] [address] [id number] [place] [id number] Oct, [facility] [place] [address] [id number] [place] [id number] Oct, [facility] [address] [facility] [id number], [place] [address] Oct, [facility] [place] [address] [id number] [place] [id number] Sep, [facility] [place] [address] [id number] [place] [id number] Sep, [facility] [place] [address] [id number] [place] [id number] Aug, [facility] [place] [address] [id number] [place] [id number] Aug, [facility] [id number] [address] Jul, [facility] [id number] [address] Jul, [facility] [address] [facility] [id number], [place] [address] Jul, [facility] [address] [facility] [id number], [place] [address] Jul, [facility] [address] [facility] [id number], [place] [address] Jul, [facility] [id number] [address] Jul, [facility] [address] [id number] [address] Jul, [facility] [id number] [address] Jul, [facility] [id number], [place] [address] Jul, [facility] [id number] [address] Jul, [facility] [id number] [place] [address] Jul, [facility] [id number] [place] [address] Jul, [facility] [id number] [place] [address] Jul, [facility] [id number] [place] [address] Jul, IMMUNIZATIONS No Known Immunizations SOCIAL HISTORY Never Assessed REASON FOR VISIT refill for tramadol PLAN OF CARE VITAL SIGNS MEDICATIONS Medication [...] acute renal failure--2010. 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 Surgical History amputation, toe-right third toe ([facility]) 2013 [facility] Surgical History heart cath with stent [...]
--- OUTSIDE RECORDS SUMMARY | 2018-06-20 10:54 | XMS REPORT ---
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 Name Role Phone SATINDER GOOD Unavailable PROBLEMS Type Condition ICD9-CM Code TZA35-CT Code Onset Dates Condition Status SNOMED Code Problem Peripheral vascular disease I73.9 Active 498257194 Problem Coronary artery disease involving [place] tribes coronary artery of [place] tribes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 Active 7848470892155 Problem S/P coronary artery stent placement Z95.5 Active 045702486 Problem Chronic obstructive pulmonary disease, unspecified COPD type J44.9 Active 03571179 Problem Type 2 diabetes mellitus with diabetic neuropathy E11.40 Active 39756112 Problem Bilateral low back pain without sciatica M54.5 Active 271287848 Problem 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 Active 793243688 Problem 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 Active 595474395 Problem Hypercholesterolemia E78.0 Active 97128373 Problem Comprehensive diabetic foot examination, type 2 DM, encounter for E11.9 Active 36290443 Problem Type 2 diabetes mellitus with diabetic polyneuropathy E11.42 Active 121479407 Problem Obesity (BMI 30.0-34.9) E66.9 Active [id number] Problem Personal history of carotid stenosis Z86.79 Active 033978658 Problem Aphasia R47.01 Active 74347324 Problem Chronic diarrhea K52.9 Active 154645864 Problem Uses walker Z99.89 Active 484989228 Problem Chronic fatigue R53.82 Active 31550398 Problem Mixed stress and urge urinary incontinence N39.46 Active 424480618 Problem Chronic pain syndrome G89.4 Active 583006369 Problem High risk medication use Z79.899 Active 391831140 Problem Osteomyelitis of right foot, unspecified chronicity M86.9 Active 58117698 Problem Fatigue, unspecified type R53.83 Active 07477352 Problem Diabetes type 2, uncontrolled E11.65 Active 053148495 Problem Full incontinence of feces R15.9 Active 481016115469819 Problem Other chronic pain G89.29 Active 78032400 Problem Functional diarrhea K59.1 Active 07025788 Problem Fecal urgency R15.2 Active 76993067 Problem Depression F32.9 Active 45515765 Problem CKD (chronic kidney disease), stage 3 (moderate) N18.3 Active 413141055 Problem Hyperlipidemia, unspecified hyperlipidemia E78.5 Active 12789966 Problem CKD (chronic kidney disease) stage 3, GFR 30-59 ml/min N18.3 Active 978531073 Problem Type 2 diabetes mellitus with diabetic peripheral angiopathy without gangrene E11.51 Active 292817785 Problem Pain in left shoulder M25.512 Active 81596117 Problem Insulin long-term use Z79.4 Active 545677820 Problem Essential hypertension I10 Active 43091451 Problem Type 2 diabetes mellitus with diabetic retinopathy, macular edema presence unspecified, with unspecified retinopathy severity E11.319 Active 09991992 Problem Chronic kidney disease, unspecified N18.9 Active 857631961 Problem Type 2 diabetes mellitus with foot ulcer E11.621 Active 192730768 Problem Frequent falls R29.6 Active 655095904 Problem GERD without esophagitis K21.9 Active 819507924 Problem Mixed hyperlipidemia E78.2 Active 279790774 ALLERGIES No Information ENCOUNTERS Encounter Location Date Diagnosis [facility] [address] [facility] [id number] [id number] May, [facility] [place] [id number] [place] [address] [id number] Apr, Medicare annual wellness visit, initial Z00.00 [facility] [address] [id number] [phone] 05 Apr, 2018 [facility] [place] [address] [facility] [id number] [id number] Apr, Essential hypertension I10 [facility] [address] [facility] [id number] [place] [address] [id number] Mar, Other chronic pain G89.29 [facility] [address] [facility] [id number] [id number] Mar, [facility] [place] [address] [place] [id number] [place] [address] [id number] Feb, Other chronic pain G89.29 [facility] [id number] [place] [address] [id number] Feb, [facility] [id number] [place] [address] [id number] Feb, [facility] [id number] [place] [address] [id number] Feb, Diabetes type 2, uncontrolled E11.65 [facility] [facility] [id number] [place] [address] [id number] Feb, Other chronic pain G89.29 [facility] [id number] [place] [address] [id number] Jan, [facility] [id number] [place] [address] [id number] Jan, [facility] [address] [id number] [place] [address] [id number] Jan, [facility] [id number] [place] [address] [id number] Jan, Other chronic pain G89.29 [facility] [id number] [place] [address] [id number] December, Mixed stress and urge urinary incontinence N39.46 [facility] [address] [place] [id number] [place] [address] [id number] December, Chronic fatigue R53.82 [facility] [id number] [place] [address] [id number] December, Other chronic pain G89.29 [facility] [address] [place] [id number] [place] [address] [id number] December, Diabetes type 2, uncontrolled E11.65 ; [...] type J44.9 and Other chronic pain G89.29 [facility] [address] [place] [id number] [address] December, [place] [id number] [place] [address] [id number] December, Medicare annual wellness visit, subsequent Z00.00 ; Type 2 diabetes mellitus with diabetic polyneuropathy E11.42 ; Chronic obstructive pulmonary disease, unspecified COPD type J44.9 ; Depression F32.9 ; Peripheral vascular disease I73.9 ; Coronary artery disease involving [place] coronary artery of [place]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 ; Hypercholesterolemia E78.0 ; GERD without esophagitis K21.9 and Chronic kidney disease, unspecified N18.9 [place] [id number] [place] [address] [id number] December, Mixed stress and urge urinary incontinence N39.46 ; Full incontinence of feces R15.9 ; Fecal urgency R15.2 ; Functional diarrhea K59.1 and Type 2 diabetes mellitus with diabetic neuropathy E11.40 [place] [id number] [place] [address] [id number] Nov, Other chronic pain G89.29 [place] [id number] [place] [address] [id number] Oct, [address] [id number] Oct, [address] [id number] Oct, Other chronic pain G89.29 [place] [id number] [place] [address] [id number] Sep, Other chronic pain G89.[address] [id number] Aug, CKD (chronic kidney disease), stage 3 (moderate) N18.3 ; Anemia, unspecified type D64.9 and Dilated pore of Ly L70.[address] [id number] Aug, Other chronic pain G89.29 ; Pain in left shoulder M25.512 ; High risk medication use Z79.899 ; Uses walker Z99.89 ; Diabetes type 2, uncontrolled E11.65 and Depression F32.9 [address] [place] [address] [id number] Aug, Chronic diarrhea K52.9 [place] [id number] [place] [address] [id number] Aug, Chronic diarrhea K52.9 ; Type 2 diabetes mellitus with diabetic neuropathy E11.40 ; Diabetes type 2, uncontrolled E11.65 ; Insulin long-term use Z79.4 ; Chronic obstructive pulmonary disease, unspecified COPD type J44.9 ; Chronic pain syndrome G89.4 ; Pain in left shoulder M25.512 ; Uses walker Z99.89 ; S/P coronary artery stent placement Z95.5 ; Mixed hyperlipidemia E78.2 and Essential hypertension I10 [place] [id number] [place] [address] [id number] Aug, [place] [id number] [place] [address] [id number] Jul, Diabetes type 2, uncontrolled E11.65 [place] [id number] [place] [address] [id number] Jul, Diabetes type 2, uncontrolled E11.65 ; Type 2 diabetes mellitus with diabetic neuropathy E11.40 ; Insulin long-term use Z79.4 and Chronic obstructive pulmonary disease, unspecified COPD type J44.9 [address] [place] [address] [id number] Jun, [place] [id number] [place] [address] [id number] Jun, Essential hypertension I10 [place] [id number] [place] [address] [id number] Jun, Essential hypertension I10 [address] [id number] Jun, Type 2 diabetes mellitus with diabetic neuropathy E11.40 ; Type 2 diabetes mellitus with diabetic polyneuropathy E11.42 ; S/P coronary artery stent placement Z95.5 ; Obesity (BMI 30.0-34.9) E66.9 ; Mixed hyperlipidemia E78.2 ; Frequent falls R29.6 ; Chronic obstructive pulmonary disease, unspecified COPD type J44.9 ; Essential hypertension I10 ; Insulin long-term use Z79.4 and High risk medication use Z79.899 [address] [place] [address] [id number] May, Diarrhea, unspecified type R19.7 ; Type 2 diabetes mellitus with diabetic neuropathy E11.40 ; Chronic obstructive pulmonary disease, unspecified COPD type J44.9 ; S/P coronary artery stent placement Z95.5 ; High risk medication use Z79.899 ; Essential hypertension I10 ; Encounter for administration of vaccine Z23 and Encounter for immunization Z23 [address] [id number] [id number] May, Chronic obstructive pulmonary disease, unspecified COPD type J44.9 [address] [place] [address] [id number] May, Type 2 diabetes mellitus with diabetic polyneuropathy E11.42 ; Encounter for immunization Z23 ; Needs flu shot Z23 ; Comprehensive diabetic foot examination, type 2 DM, encounter for E11.9 and Obesity (BMI 30.0-34.9) E66.9 [address] [place] [address] [id number] May, [address] [place] [address] [id number] Apr, [address] [place] [address] [id number] Apr, Essential hypertension I10 and Aphasia R47.[id number] [place] [address] [id number] Apr, [place] [id number] [place] [address] [id number] Apr, Type 2 diabetes mellitus with diabetic neuropathy E11.40 ; Frequent falls R29.6 ; Essential hypertension I10 ; S/P coronary artery stent placement Z95.5 ; High risk medication use Z79.899 ; Hyperlipidemia, unspecified hyperlipidemia E78.5 ; CKD (chronic kidney disease), stage 3 (moderate) N18.3 ; Pain in left shoulder M25.512 and Chronic obstructive pulmonary disease, unspecified COPD type J44.9 [facility] [address] [place] [id number] [place] [address] [id number] Mar, [facility] [address] [place] [id number] [place] [address], [place] [id number] Mar, Type 2 diabetes mellitus with diabetic polyneuropathy E11.42 ; Leg wound, left, initial encounter S81.802A ; Hx of shoulder surgery Z98.890 ; Acute pain of left shoulder M25.512 and Fall, initial encounter W19.XXXA [facility] [address] [place] [id number] [place] [address], [place] [id number] Feb, Follow-up exam Z09 ; Hx of shoulder surgery Z98.890 ; Acute pain of left shoulder M25.512 ; Essential hypertension I10 and Leg wound, left, initial encounter S81.802A [facility] [id number] [place] [address] [id number] Feb, [facility] [address] [place] [id number] [place] [address] [id number] Feb, [facility] [address] [place] [address] [id number] [place] [address], [place] [id number] Feb, Chronic obstructive pulmonary disease, unspecified COPD type J44.9 [facility] [id number] [place] [address] [id number] Feb, [facility] [id number] [place] [address] [id number] Jan, Generalized weakness R53.1 ; Exertional shortness of breath R06.02 and Fungal rash of trunk B36.9 [facility] [id number] [place] [address] [id number] Jan, [facility] [address] [place] [address] [id number] [place] [address] [id number] Jan, [facility] [id number] [place] [address] [id number] Jan, [facility] [id number] [place] [address] [id number] Jan, [facility] [id number] [id number] December, High risk medication use Z79.[address] [id number], [place] [id number] December, Type 2 diabetes mellitus with diabetic neuropathy E11.[address] [id number] [id number] December, High risk medication use Z79.899 [address] [id number] Nov, Diabetes type 2, uncontrolled E11.65 [address] [place] [address] [id number] Nov, Medicare annual wellness visit, initial Z00.00 ; Bilateral low back pain without sciatica M54.5 ; Pain in left shoulder M25.512 ; Chronic pain syndrome G89.4 ; Type 2 diabetes mellitus with diabetic polyneuropathy E11.42 ; High risk medication use Z79.899 and Encounter for immunization Z23 [address]00565100[place] [id number] Nov, Type 2 diabetes mellitus with diabetic neuropathy E11.40 ; Coronary artery disease involving [place] and [place] coronary artery of [place] and [place]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 and CKD (chronic kidney disease), stage 3 (moderate) N18.[address] [id number] [id number] Oct, Type 2 diabetes mellitus with diabetic polyneuropathy E11.42 ; Chronic pain syndrome G89.4 ; Chronic obstructive pulmonary disease, unspecified COPD type J44.9 ; Chronic kidney disease, unspecified N18.9 and Rash R21 [place] [address] [facility] [address] [id number][place] [id number] Oct, Type 2 diabetes mellitus with diabetic neuropathy E11.[address] [id number], [place] [id number] Oct, Rash R21 and Impetigo L01.[address] [id number] [id number] Oct, Chronic pain syndrome G89.4 [place] [id number] [id number] Oct, [facility] [address] [address] [id number] [place] [address] [id number] Sep, Sebaceous cyst L72.3 [facility] [id number] [place] [address] [id number] Sep, Sebaceous cyst L72.3 [facility] [address] [place] [id number] [place] [address] [id number] Sep, Chronic pain syndrome G89.4 ; Pain in left shoulder M25.512 and Effusion of olecranon bursa, left M25.422 [facility] [address] [place] [id number] [place] [address] Aug, [facility] [address] [id number] [place] [address] [id number] Aug, [place] [address] [id number] [place] [address] [id number] Aug, Mixed hyperlipidemia E78.2 and Chronic kidney disease, unspecified N18.9 [facility] [address] [place] [id number] [place] [address] [id number] Jul, Type 2 diabetes mellitus with diabetic neuropathy E11.40 ; Essential hypertension I10 and S/P coronary artery stent placement Z95.5 [facility] [address] [place] [id number] [place] [address] [id number] Jul, 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 [place] [address] [place] [id number] [place] [address] [id number] Jul, Diabetes type 2, uncontrolled E11.65 ; Essential hypertension I10 and 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 [facility] [id number] [place] [address] [id number] Jul, [facility] [address] [place] [id number] [place] [address] [id number] Jul, [facility] [id number] [place] [address] [id number] Jul, [place] [address] [place] [id number] [place] [address] [id number] Jul, Chronic obstructive pulmonary disease, unspecified COPD type J44.9 [address] [place] [address] [id number] Jun, CKD (chronic kidney disease), stage 3 (moderate) N18.3 and Anemia, unspecified type D64.9 [address] [place] [address] [id number] Jun, Type 2 diabetes mellitus with diabetic neuropathy E11.40 ; Decreased GFR R94.4 ; CKD (chronic kidney disease), stage 3 (moderate) N18.3 and Decreased hemoglobin R71.0 [place] [id number] [place] [address] [id number] Jun, CKD (chronic kidney disease), stage 3 (moderate) N18.3 and Anemia, unspecified type D64.9 [address] [place] [address] [id number] Jun, Type 2 diabetes mellitus with diabetic neuropathy E11.40 ; Decreased GFR R94.4 and CKD (chronic kidney disease), stage 3 (moderate) N18.3 [place] [id number] [place] [address] [id number] Jun, Type 2 diabetes mellitus with diabetic neuropathy E11.40 and Essential hypertension I10 [place] [id number] [place] [address] [id number] Jun, [place] [id number] [place] [address] [id number] Jun, [place] [id number] [place] [address] [id number] Jun, Type 2 diabetes mellitus with diabetic neuropathy E11.40 ; S/P coronary artery stent placement Z95.5 ; Chronic obstructive pulmonary disease, unspecified COPD type J44.9 ; Essential hypertension I10 ; GERD without esophagitis K21.9 ; Peripheral vascular disease I73.9 ; Mixed hyperlipidemia E78.2 and Hospital discharge follow-up Z09 [place] [id number] [place] [address] [id number] Jun, [address] [id number] May, Depression F32.9 and Hyperlipidemia, unspecified hyperlipidemia E78.5 [facility] [address]100[place] [id number] May, [place] [id number] [place] [address] [id number] May, [place] [id number] [place] [address] [id number] May, Essential hypertension I10 ; Chronic pain syndrome G89.4 ; Pain in left shoulder M25.512 ; High risk medication use Z79.899 ; Chronic obstructive pulmonary disease, unspecified COPD type J44.9 ; S/P coronary artery stent placement Z95.5 ; Personal history of carotid stenosis Z86.79 ; Hyperlipidemia, unspecified hyperlipidemia E78.5 ; Decreased GFR R94.4 and Type 2 diabetes mellitus with diabetic polyneuropathy E11.42 [place] [id number] [place] [address] [id number] May, Hemoglobin decreased R71.0 and Decreased GFR R94.4 [place] [id number] [place] [address] [id number] May, Hemoglobin decreased R71.0 and Decreased GFR R94.4 [place] [id number] [place] [address] [id number] May, [place] [id number] [place] [address] [id number] May, [place] [id number] [place] [address] [id number] Apr, [place] [id number] [place] [address] [id number] Apr, Type 2 diabetes mellitus with foot [...] hypertension I10 [facility] [id number] [id number] Apr, [facility] [id number] [place] [address] [id number] Mar, [facility] [id number] [place] [address] [id number] Mar, [facility] [address] [place] [address] 213[address]- [phone] Mar, [facility] [id number] [place] [address] [id number] Feb, [facility] [id number] [place] [address] [id number] Feb, [facility] [id number] [place] [address] [id number] Feb, [facility] [id number] [place] [address] [id number] Jan, Type 2 diabetes mellitus with diabetic polyneuropathy E11.42 ; Hypercholesterolemia E78.0 ; Chronic pain syndrome G89.4 ; Pain in left shoulder M25.512 and High risk medication use Z79.899 [facility] [id number] [place] [address] [id number] Jan, [facility] [id number] [place] [address] [id number] Jan, [facility] [id number] [place] [address] [id number] December, [facility] [id number] [place] [address] [id number] December, [facility] [address]100[place] [address] December, Diabetes type 2, uncontrolled E11.65 ; Type 2 diabetes mellitus with diabetic neuropathy E11.40 ; Peripheral vascular disease I73.9 ; 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 and 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 [facility] [id number] [place] [address] [id number] Nov, [facility] [id number] [place] [address] [id number] Nov, [facility] [address] [id number] [place] [id number] Nov, [facility] [address] [id number] [place] [id number] Nov, Right hip pain M25.551 [facility] [address]100[place] [address] Nov, [facility] [id number] [place] [address] 758[address]- [address] Nov, [facility] [address] [id number] [id number] Nov, Diabetes with neurological manifestations, type II or unspecified type, 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.60 [facility] [address] [id number] [id number] Nov, [facility] [address] [id number], [place] [id number] Nov, [facility] [address] [id number], [place] [id number] Oct, Diabetes type 2, uncontrolled E11.65 ; Type 2 diabetes mellitus with diabetic neuropathy, unspecified E11.40 and Low back pain M54.5 [facility] [address] [id number], [place] [id number] Oct, [facility] [address] [id number], [place] [id number] Oct, [facility] [address] [id number] [id number] Oct, [facility] [address] [id number], [place] [id number] Sep, [facility] [address] [id number], [place] [id number] Sep, [facility] [address]00565100[place] [address] Sep, [facility] [address] [id number], [place] [id number] Sep, [facility] [address] [id number] [id number] Sep, [facility] [id number], [place] [id number] Aug, 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 [facility] [address] [id number], [place] [id number] Aug, [facility] [id number] [place] [address] [id number] Aug, Allergic rhinitis due to pollen J30.[address] [id number][place] [id number] Jul, [facility] [id number] [place] [address] [id number] Jul, [facility] [id number] [place] [address] [id number] Jul, [facility] [id number] [place] [address] [id number] Jun, [facility] [id number] [place] [address] [id number] Jun, Thumb tendonitis M77.8 and Ringing in ear, bilateral H93.[address] [id number], [place] [id number] Jun, [facility] [address] [id number] [id number] May, [facility] [id number] [place] [phone] May, [facility] [id number] [place] [phone] May, Pre-op evaluation Z01.818 ; Encounter for immunization Z23 ; Type 2 diabetes mellitus with diabetic peripheral angiopathy without gangrene E11.51 ; Insulin long-term use Z79.4 ; Type 2 diabetes mellitus with foot ulcer E11.621 ; Peripheral vascular disease I73.9 ; Coronary artery disease involving [place] coronary artery of [place]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 ; S/P coronary artery stent placement Z95.5 ; Osteomyelitis of right foot, unspecified chronicity M86.9 and Chronic obstructive pulmonary disease, unspecified COPD type J44.9 [facility] [id number] [place] [address] 57067- 6914 May, [facility] [id number] [place] [address] [id number] May, [facility] [id number] [place] [address] [id number] May, Diabetes type 2, uncontrolled E11.65 ; Encounter for immunization Z23 ; Osteopenia M85.80 and Allergic rhinitis due to pollen J30.1 [facility] [id number] [place] [address] [id number] May, Lumbago 724.2 [facility] [id number] [place] [address] [id number] Apr, [facility] [id number] [place] [address] [id number] Apr, [facility] [id number] [place] [address] [phone] Apr, [facility] [id number] [place] [address] [id number] Apr, [facility] [id number] [place] [address] 74393- 0742 Mar, [facility] [id number] [place] [address] [id number] Mar, [facility] [id number] [place] [address] [id number] Mar, [facility] [id number] [place] [address] [id number] Mar, [facility] [id number] [place] [address] [id number] Mar, [facility] [id number] [place] [address] 17927- 7789 Mar, [facility] [id number] [place] [address] [id number] Mar, [facility] [address] [place] [id number] Mar, Diabetes with neurological manifestations, type II or unspecified type, 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.60 and Severe obesity (BMI 35.0-35.9 with comorbidity) 278.01 [facility] [id number] [id number] Mar, [facility] [id number] [place] [address] 79768- 2546 Mar, [facility] [id number] [place] [address] 05787- 2546 Feb, [facility] [id number] [place] [address] [id number] Feb, [facility] [id number] [place] [address] [id number] Feb, [facility] [id number] [place] [id number] Feb, Diabetes with neurological manifestations, type II or unspecified type, 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.60 [facility] [id number] [id number] Feb, [facility] [id number] [place] [address] 39928- 2546 Feb, [facility] [id number] [id number] Feb, [facility] [id number] [place] [id number] Feb, Follow up V67.9 ; Diabetes with neurological manifestations, type II or unspecified type, 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.60 and Congestive heart failure 428.0 [facility] [address] [id number] [place] [id number] Jan, [facility] [address] [id number] [id number] Jan, [facility] [address] [id number] [place] [id number] Jan, [facility] [address] [id number] [place] [id number] December, Otitis media with effusion 381.4 ; Left arm numbness 782.0 and Osteoporosis 733.00 [facility] [id number] [id number] December, [facility] [id number] [place] [address] [id number] Nov, [facility] [id number] [id number] Nov, Serous otitis media 381.4 and Lumbago 724.2 [facility] [id number] [place] [address] 14496- 8276 Nov, [facility] [id number] [place] [address] 91910- 9037 Nov, [facility] [id number] [place] [address] [id number] Oct, [facility] [id number] [place] [address] 27680- 6455 Oct, [facility] [id number] [id number] Oct, [facility] [id number] [place] [address] [id number]- 4339 Oct, [facility] [id number] [id number] Oct, [facility] [address] [address]- 9541 Oct, [facility] [place] [facility] [address] [address]- 7746 Sep, [facility] [place] [facility] [address]100[place] [address]- 8132 Sep, [facility] [id number] [place] [address] [id number] Sep, [facility] [place] [facility] [address]005[address]100[place] [address]- 2143 Sep, [facility] [id number] [place] [address] [id number] Aug, [facility] [place] [facility] [address] [facility] [id number] [place] [address]- 9406 Aug, [facility] [address] [id number] [place] [id number] Aug, [facility] [place] [facility] [address] [facility] [id number] [place] [address]- 9245 Aug, [facility] [address] [id number] [place] [id number] Jul, [facility] [place] [facility] [address] [facility] [id number] [place] [address]- 1850 Jul, [facility] [address] [facility] [id number] [place] [id number] Jul, [facility] [place] [facility] [address] [address]- 1278 Jul, [facility] [address] [facility] [id number] [id number] Jul, [facility] [place] [facility] [address] [facility] [id number] [address]- 7032 Jul, [facility] [address] [facility] [id number] [id number] Jun, [facility] [place] [facility] [address] [facility] [id number] [address]- 8093 Jun, [facility] [address] [facility] [id number] [id number] May, [facility] [place] [facility] [address] [facility] [id number] [address]- 9152 May, [facility] [address] [facility] [id number] [place] [id number] May, [facility] [place] [facility] [address] [facility] [id number] [address]- 0994 May, [facility] [address] [facility] [id number] [place] [id number] May, [facility] [place] [facility] [address] [facility] [id number] [address]- 3316 May, [facility] [address] [id number] [place] [id number] May, [facility] [address] [id number] [id number] May, [facility] [place] [facility] [address] [facility] [id number] [address]- 9131 May, [facility] [place] [facility] [address] [facility] [id number] [address]- 9203 May, [facility] [address] [id number] [id number] May, [facility] [place] [facility] [address] [facility] [id number] [address]- 7300 May, [facility] [place] [facility] [address]00565100[place] [address]- 8422 Apr, [facility] [address] [facility] [id number] [id number] Apr, [facility] [place] [facility] [address] [facility] [id number] [address]- 4584 Apr, [facility] [address] [id number] [id number] Apr, [facility] [address] [facility] [id number] [id number] Apr, [facility] [place] [facility] [address] [facility] [id number] [address]- 0573 Apr, [facility] [place] [facility] [address] [facility] [id number] [address]- 4775 Apr, [facility] [address] [facility] [id number] [id number] Apr, [facility] [place] [facility] [address] [facility] [id number], [place] [address]- 3971 Apr, [facility] [address] [facility] [id number], [place] [id number] Apr, [facility] [place] [facility] [address] [facility] [id number] [address]- 4258 Apr, [facility] [address] [id number] [place] [id number] Apr, [facility] [place] [facility] [address] [facility] [id number] [address]- 2879 Apr, [facility] [address] [facility] [id number] [place] [id number] Apr, [facility] [place] [facility] [address] [facility] [id number] [address]- 7867 Apr, [facility] [address] [id number] [place] [id number] Apr, [facility] [place] [facility] [address] [facility] [id number] [address]- 6486 Apr, [facility] [address] [facility] [id number] [place] [id number] Apr, [facility] [place] [facility] [address] [facility] [id number] [address]- 8025 Apr, [facility] [address] [facility] [id number] [place] 739234911 Mar, [facility] [place] [facility] [address] [facility] [id number] [address]- 2419 Mar, [facility] [address] [id number] [place] [id number] Mar, [facility] [address] [facility] [id number] [place] [id number] Mar, [facility] [place] [facility] [address] [facility] [id number][place] [address]- 2091 Mar, [facility] [place] [facility] [address] [facility] [id number] [address]- 1744 Mar, [facility] [address] [facility] [id number] [place] [id number] Mar, [facility] [place] [facility] [address] [facility] [id number] [address]- 0384 Mar, [facility] [address] [id number] [place] 648643425 Mar, [facility] [place] [facility] [address] [id number] [place] [address]- 0669 Mar, [facility] [address] [id number] [place] [id number] Mar, [facility] [place] [facility] [address] [id number] [place] [address]- 6338 Mar, [facility] [address] [id number] [place] 628837934 Mar, [facility] [place] [facility] [address] [id number] [place] [address]- 5046 Mar, [facility] [address] [id number] [place] [id number] Mar, [facility] [place] [facility] [id number] [place] [address]- 1942 Mar, [facility] [address] [id number] [place] [id number] Mar, [facility] [place] [facility] [address] [facility] [id number] [place] [address]- 1836 Mar, [facility] [address] [id number] [place] 850262628 Mar, [facility] [place] [facility] [address] [id number] [address]- 1949 Mar, [facility] [address] [id number] [place] [id number] Feb, [facility] [place] [facility] [address] [id number] [place] [address]- 5095 Feb, [facility] [address] [id number] [place] [id number] Feb, [facility] [place] [facility] [address] [id number] [place] [address]- 3804 Feb, [facility] [address] [id number] [place] [id number] Feb, [facility] [place] [facility] [address] [id number] [place] [address]- 5460 Feb, [facility] [address] [id number] [place] 110919572 Feb, [facility] [place] [facility] [address] [facility] [id number] [place] [address]- 6116 Feb, [facility] [address] [id number] [place] [id number] Feb, [facility] [place] [facility] [address] [facility] [id number] [address]- 0670 Feb, [facility] [address] [id number] [place] [id number] Feb, [facility] [place] [facility] [address] [facility] [id number] [place] [address]- 9152 Feb, [facility] [address] [facility] [id number] [place] 548573243 Feb, [facility] [place] [facility] [address] [facility] [id number] [address]- 9544 Feb, [facility] [address] [id number] [place] 696278586 Feb, [facility] [place] [facility] [address] [facility] [id number] [address]- 8849 Feb, [facility] [address] [id number] [place] [id number] Feb, [facility] [place] [facility] [address] [facility] [id number], [place] 075592- 1177 Feb, [facility] [address] [id number] [place] [id number] Feb, [facility] [address] [id number] [place] 970290605 Feb, [facility] [place] [facility] [address] [facility] [id number] [place] 43119381- 3817 Feb, [facility] [place] [facility] [address] [facility] [id number] [address]- 6821 Feb, [facility] [address] [id number] [place] 450192745 Feb, [facility] [place] [facility] [address] [id number] [place] [address]- 3629 Feb, [facility] [address] [id number] [place] [id number] Feb, [facility] [place] [facility] [address] [id number], [place] [address]- 7028 Feb, [facility] [address] [id number] [place] 198068284 Feb, [facility] [place] [facility] [address] [id number] [place] [address]- 7092 Feb, [facility] [address] [facility] [id number] [place] 854348638 Jan, [facility] [place] [facility] [address] [facility] [id number] [address]- 1438 Jan, [facility] [place] [facility] [address] [facility] [id number], [place] [address]- 3277 Jan, [facility] [place] [facility] [address] [facility] [id number] [address]- 6813 Jan, [facility] [place] [facility] [address] [facility] [id number] [place] [address]- 2487 Jan, [facility] [place] [facility] [address] [facility] [id number] [address]- 5084 Jan, [facility] [address] [facility] [id number] 565987052 Jan, [facility] [place] [facility] [address] [facility] [id number] [place] [address]- 5458 Jan, [facility] [place] [facility] [address] [facility] [id number] [place] [address]- 9065 Jan, [facility] [place] [facility] [address] [facility] [id number], [place] 58568287- 7365 Jan, [facility] [address] [facility] [id number] [place] [id number] Jan, [facility] [address] [id number] [place] 992974952 Jan, [facility] [place] [facility] [address] [id number] [place] [address]- 0386 Jan, [facility] [place] [facility] [address] [facility] [id number] [place] [address]- 4512 Jan, [facility] [address] [id number] [place] 639682838 Jan, [facility] [address] [id number] [place] 629511467 Jan, [facility] [place] [facility] [address] [facility] [id number] [place] [address]- 6195 Jan, [facility] [place] [facility] [address] [facility] [id number] [place] [address]- 5245 Jan, [facility] [place] [facility] [address] [facility] [id number] [place] [address]- 6323 Jan, [facility] [address] [id number] 164318703 December, [facility] [place] [facility] [address] [facility] [id number] [place] [address]- 9719 December, [facility] [place] [facility] [address] [facility] [id number] [address]- 6021 December, [facility] [address] [id number] 697010418 December, [facility] [place] [facility] [address] [id number] [place] [address]- 8256 December, [facility] [address] [id number] [place] [id number] December, [facility] [place] [facility] [address] [facility] [id number] [address]- 2264 December, [facility] [address] [id number] [place] 304505989 December, [facility] [place] [facility] [address] [facility] [id number] [address]- 4936 December, [facility] [address] [facility] [id number] [place] 789341399 Nov, [facility] [place] [facility] [address] [facility] [id number] [address]- 8016 Nov, [facility] [address] [facility] [id number] 125538742 Nov, [facility] [place] [facility] [address] [facility] [id number], [place] [address]- 6527 Nov, [facility] [place] [facility] [address] [facility] [id number] [place] [address]- 3973 Nov, [facility] [place] [facility] [id number] [place] [address]- 3762 Nov, [facility] [place] [facility] [address]00565100[place] [address]- 0026 Oct, [facility] [address] [id number] 020698594 Oct, [facility] [place] [facility] [address] [id number] [address]- 9220 Oct, [facility] [address] [id number] 947913586 Oct, [facility] [place] [facility] [address] [id number] [address]- 9562 Oct, [facility] [address] [facility] [id number] 672993086 Sep, [facility] [place] [facility] [address] [facility] [id number] [address]- 4931 Sep, [facility] [address] [facility] [id number] 094261296 Aug, [facility] [place] [facility] [address] [facility] [id number] [address]- 1956 Aug, [facility] [address] [facility] [id number] 466698972 Aug, [facility] [place] [facility] [address] [id number] [address]- 5406 Aug, [facility] [place] [facility] [address] [facility] [id number] [place] [address]- 0306 Aug, [facility] [address] [id number] 489511271 Aug, [facility] [place] [facility] [address] [facility] [id number] [place] [address] Aug, [facility] [place] [facility] [address] [facility] [id number] [place] [address] Aug, [facility] [place] [address] [facility] [id number] [place] [id number] Aug, [facility] [place] [facility] [address] [facility] [id number] [place] [address] Aug, [facility] [address] [facility] [id number] [id number] Jul, [facility] [place] [facility] [address] [facility] [id number], [place] [address] Jul, [facility] [address] [facility] [id number] [id number] Jul, [facility] [place] [facility] [address] [facility] [id number], [place] [address] Jul, [facility] [address] [facility] [id number] [id number] Jul, [facility] [place] [facility] [address] [facility] [id number], [place] [address] Jul, [facility] [address] [facility] [id number] [id number] Jul, [facility] [place] [facility] [address] [facility] [id number], [place] [address] Jul, [facility] [address] [id number] [id number] Jun, [facility] [place] [facility] [address] [facility] [id number], [place] [address] Jun, [facility] [address] [id number] [place] [id number] Jun, [facility] [address] [facility] [id number], [place] [address] Jun, [facility] [address] [facility] [id number], [place] [address] Jun, [facility] [address] [facility] [id number], [place] [address] Jun, [facility] [address] [id number] [place] [id number] Apr, [facility] [address] [id number] [place] [id number] Mar, [facility] [address] [id number] [place] [id number] Mar, [facility] [address] [id number] [place] [id number] Feb, [facility] [address] [id number] [place] [id number] Feb, [facility] [address] [id number] [place] [id number] Feb, [facility] [address] [id number] [place] [id number] December, [facility] [address] [id number] [place] [id number] December, [facility] [address] [facility] [id number], [place] [address] December, [facility] [address] [id number] [place] [id number] December, [facility] [address] [id number] [place] [id number] December, [facility] [address] [id number] [place] [address] Nov, [facility] [address] [id number] [place] [address] Nov, [facility] [address] [id number] [place] [address] Nov, [facility] [address] [id number] [place] [id number] Oct, [facility] [address] [id number] [place] [id number] Sep, [facility] [address] [id number] [place] [id number] Aug, [facility] [place] [facility] [id number], [place] [address] Aug, [facility] [address] [id number] [place] [id number] Aug, [facility] [address] [id number] [place] [id number] Jul, [facility] [place] [facility] [id number], [place] [address] Jul, [facility] [address] [id number] [id number] Jul, [facility] [place] [facility] [id number], [place] [address] Jul, [facility] [address] [id number] [id number] Jun, [facility] [place] [facility] [id number], [place] [address] Jun, [facility] [address] [id number] [id number] May, [facility] [place] [facility] [address] [facility] [id number], [place] [address] May, [facility] [address] [id number] [id number] May, [facility] [place] [facility] [address] [facility] [id number], [place] [address] May, [facility] [address] [id number] [id number] Apr, [facility] [address] [id number] [id number] Apr, [facility] [address] [id number] [place] [id number] Mar, [facility] [place] [address] [id number] [place] [address] Mar, [facility] [place] [address] [id number] [place] [id number] Feb, [facility] [place] [address] [id number] [place] [id number] Feb, [facility] [place] [address] [id number] [place] [id number] Jan, [facility] [place] [address] [id number] [place] [address] Jan, [facility] [place] [address] [id number] [place] [id number] Jan, [facility] [address] [id number] [place] [address] Jan, [facility] [address] [id number] [place] [id number] December, [facility] [place] [address] [id number] [place] [id number] December, [facility] [address] [facility] [id number] [address] Nov, [facility] [place] [address] [id number] [place] [id number] Nov, [facility] [place] [address] [id number] [place] [id number] Nov, [facility] [place] [address] [id number] [place] [id number] Nov, [facility] [place] [address] [id number] [place] [id number] Nov, [facility] [address] [facility] [id number] [place] [address] Oct, [facility] [address] [facility] [id number], [place] [address] Oct, [facility] [place] [address] [id number] [place] [id number] Oct, [facility] [place] [address] [id number] [place] [id number] Oct, [facility] [place] [address] [id number] [place] [id number] Oct, [facility] [place] [address] [id number] [place] [id number] Oct, [facility] [place] [address] [id number] [place] [id number] Oct, [facility] [place] [address] [id number] [place] [id number] Oct, [facility] [place] [address] [id number] [place] [id number] Oct, [facility] [address] [facility] [id number], [place] [address] Oct, [facility] [place] [address] [id number] [place] [id number] Sep, [facility] [place] [address] [id number] [place] [id number] Sep, [facility] [place] [address] [id number] [place] [id number] Aug, [facility] [address] [id number] [place] [id number] Aug, [facility] [address] [address] Jul, [facility] [id number], [place] [address] Jul, [facility] [id number] [address] Jul, [facility] [id number] [address] Jul, [facility] [id number], [place] [address] Jul, [facility] [id number], [place] [address] Jul, [facility] [address] [id number], [place] [address] Jul, [facility] [id number], [place] [address] Jul, [facility] [id number], [place] [address] Jul, [facility] [id number] [place] [address] Jul, [facility] [id number] [place] [address] Jul, [facility] [id number] [place] [address] Jul, [facility] [id number] [place] [address] Jul, [facility] [address], [place] [address] Jul, IMMUNIZATIONS No Known Immunizations SOCIAL HISTORY Never Assessed REASON FOR VISIT Blood Sugar Report PLAN OF CARE VITAL SIGNS MEDICATIONS Unknown Medications RESULTS No Results PROCEDURES No Known procedures INSTRUCTIONS MEDICATIONS ADMINISTERED No Known Medications MEDICAL (GENERAL) HISTORY Type Description Date Medical History peripheral vascular disease s/p angioplasty w/ stent R leg Medical History hypertension Medical 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 Secondary to ATN from [facility] 4.3 Medical History HX of dry [...] Surgical History Left eye retinal eye repair ([facility]) 06/2014 Surgical History amputation, toe-right third toe ([facility]) 2013 Surgical History Right eye retinal eye repair ([facility]) 09/2014 Surgical History heart [...]
--- OUTSIDE RECORDS SUMMARY | 2018-06-20 10:55 | XMS REPORT ---
Author Author SATINDER GOOD Organization [facility] Address [address] [place] [address] Care Team Providers Care Supervisor [employer] Name Role Phone SATINDER GOOD Unavailable PROBLEMS Type Condition ICD9-CM Code FVR90-QG Code Onset Dates Condition Status SNOMED Code Problem Peripheral vascular disease I73.9 Active 808033524 Problem Coronary artery disease involving [place] coronary artery of [place]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 Active 0203334256274 Problem S/P coronary artery stent placement Z95.5 Active 839180377 Problem Chronic obstructive pulmonary disease, unspecified COPD type J44.9 Active 36143447 Problem Type 2 diabetes mellitus with diabetic neuropathy E11.40 Active 94621666 Problem Bilateral low back pain without sciatica M54.5 Active 880391757 Problem 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 Active 500986986 Problem 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 Active 691660717 Problem Hypercholesterolemia E78.0 Active 03870573 Problem Comprehensive diabetic foot examination, type 2 DM, encounter for E11.9 Active 27264570 Problem Type 2 diabetes mellitus with diabetic polyneuropathy E11.42 Active 021427357 Problem Obesity (BMI 30.0-34.9) E66.9 Active 796736080290547 Problem Personal history of carotid stenosis Z86.79 Active 128316636 Problem Aphasia R47.01 Active 88884442 Problem Chronic diarrhea K52.9 Active 217025430 Problem Uses walker Z99.89 Active 608872478 Problem Chronic fatigue R53.82 Active 00163549 Problem Mixed stress and urge urinary incontinence N39.46 Active 150429305 Problem Chronic pain syndrome G89.4 Active 039655817 Problem High risk medication use Z79.899 Active 503745142 Problem Osteomyelitis of right foot, unspecified chronicity M86.9 Active 25327763 Problem Fatigue, unspecified type R53.83 Active 82946540 Problem Diabetes type 2, uncontrolled E11.65 Active 864873310 Problem Full incontinence of feces R15.9 Active 842710777238416 Problem Other chronic pain G89.29 Active 91637073 Problem Functional diarrhea K59.1 Active 49703323 Problem Fecal urgency R15.2 Active 02474845 Problem Depression F32.9 Active 70113552 Problem CKD (chronic kidney disease), stage 3 (moderate) N18.3 Active 817689747 Problem Hyperlipidemia, unspecified hyperlipidemia E78.5 Active 03296376 Problem CKD (chronic kidney disease) stage 3, GFR 30-59 ml/min N18.3 Active 715778532 Problem Type 2 diabetes mellitus with diabetic peripheral angiopathy without gangrene E11.51 Active 854646931 Problem Pain in left shoulder M25.512 Active 08457000 Problem Insulin long-term use Z79.4 Active 597097074 Problem Essential hypertension I10 Active 78466113 Problem Type 2 diabetes mellitus with diabetic retinopathy, macular edema presence unspecified, with unspecified retinopathy severity E11.319 Active 98572260 Problem Chronic kidney disease, unspecified N18.9 Active 680182389 Problem Type 2 diabetes mellitus with foot ulcer E11.621 Active 467255628 Problem Frequent falls R29.6 Active 493520971 Problem GERD without esophagitis K21.9 Active 140250397 Problem Mixed hyperlipidemia E78.2 Active 906205950 ALLERGIES No Information ENCOUNTERS Encounter Location Date Diagnosis [facility] [address] [facility] [id number] [place] [address] [id number] Apr, [facility] [address] [id number][place] [id number] Apr, [facility] [address] [facility] [id number][place] [id number] Apr, Essential hypertension I10 [facility] [id number] [place] [address] [phone] Mar, Other chronic pain G89.29 [facility] [id number] [place] [address] [id number] Mar, [facility] [id number] [place] [address] [id number] Feb, Other chronic pain G89.29 [facility] [id number] [place] [address] [id number] Feb, [facility] [address] [id number], [place] [id number] Feb, [facility] [address] [id number], [place] [id number] Feb, Diabetes type 2, uncontrolled E11.65 [facility] [address] [id number][place] [id number] Feb, Other chronic pain G89.29 [facility] [address] [id number][place] [id number] Jan, [facility] [address] [id number], [place] [id number] Jan, [facility] [id number] [place] [address] [id number] Jan, [facility] [address] [id number], [place] [id number] Jan, Other chronic pain G89.29 [facility] [address] [id number], [place] [id number] December, Mixed stress and urge urinary incontinence N39.46 [facility] [address] [id number], [place] [id number] December, Chronic fatigue R53.82 [facility] [address] [id number], [place] [id number] December, Other chronic pain G89.29 [facility] [id number], [place] [id number] December, Diabetes type 2, uncontrolled E11.65 ; [...] type J44.9 and Other chronic pain G89.29 [facility] [address] [facility] [id number], [place] [address] December, [place] [id number] [place] [address] [id number] December, Medicare annual wellness visit, subsequent Z00.00 ; Type 2 diabetes mellitus with diabetic polyneuropathy E11.42 ; Chronic obstructive pulmonary disease, unspecified COPD type J44.9 ; Depression F32.9 ; Peripheral vascular disease I73.9 ; Coronary artery disease involving [place] coronary artery of [place]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 ; Hypercholesterolemia E78.0 ; GERD without esophagitis K21.9 and Chronic kidney disease, unspecified N18.9 [address] [place] [address] [id number] December, Mixed stress and urge urinary incontinence N39.46 ; Full incontinence of feces R15.9 ; Fecal urgency R15.2 ; Functional diarrhea K59.1 and Type 2 diabetes mellitus with diabetic neuropathy E11.40 [place] [id number] [place] [address] [id number] Nov, Other chronic pain G89.29 [address] [place] [address] [id number] Oct, [place] [id number] [place] [address] [id number] Oct, [address] [place] [address] [id number] Oct, Other chronic pain G89.29 [place] [id number] [place] [address] [id number] Sep, Other chronic pain G89.29 [address] [place] [address] [id number] Aug, CKD (chronic kidney disease), stage 3 (moderate) N18.3 ; Anemia, unspecified type D64.9 and Dilated pore of Ly L70.8 [address] [place] [address] [id number] Aug, Other chronic pain G89.29 ; Pain in left shoulder M25.512 ; High risk medication use Z79.899 ; Uses walker Z99.89 ; Diabetes type 2, uncontrolled E11.65 and Depression F32.9 [place] [id number] [place] [address] [id number] Aug, Chronic diarrhea K52.[address] [id number] Aug, Chronic diarrhea K52.9 ; Type 2 diabetes mellitus with diabetic neuropathy E11.40 ; Diabetes type 2, uncontrolled E11.65 ; Insulin long-term use Z79.4 ; Chronic obstructive pulmonary disease, unspecified COPD type J44.9 ; Chronic pain syndrome G89.4 ; Pain in left shoulder M25.512 ; Uses walker Z99.89 ; S/P coronary artery stent placement Z95.5 ; Mixed hyperlipidemia E78.2 and Essential hypertension I10 [place] [id number] [place] [address] [id number] Aug, [address] [id number] Jul, Diabetes type 2, uncontrolled E11.[address] [id number] Jul, Diabetes type 2, uncontrolled E11.65 ; Type 2 diabetes mellitus with diabetic neuropathy E11.40 ; Insulin long-term use Z79.4 and Chronic obstructive pulmonary disease, unspecified COPD type J44.9 [place] [id number] [place] [address] [id number] Jun, [place] [id number] [place] [address] [id number] Jun, Essential hypertension I10 [place] [id number] [place] [address] [id number] Jun, Essential hypertension I10 [place] [id number] [place] [address] [id number] Jun, Type 2 diabetes mellitus with diabetic neuropathy E11.40 ; Type 2 diabetes mellitus with diabetic polyneuropathy E11.42 ; S/P coronary artery stent placement Z95.5 ; Obesity (BMI 30.0-34.9) E66.9 ; Mixed hyperlipidemia E78.2 ; Frequent falls R29.6 ; Chronic obstructive pulmonary disease, unspecified COPD type J44.9 ; Essential hypertension I10 ; Insulin long-term use Z79.4 and High risk medication use Z79.899 [address] [place] [address] [id number] May, Diarrhea, unspecified type R19.7 ; Type 2 diabetes mellitus with diabetic neuropathy E11.40 ; Chronic obstructive pulmonary disease, unspecified COPD type J44.9 ; S/P coronary artery stent placement Z95.5 ; High risk medication use Z79.899 ; Essential hypertension I10 ; Encounter for administration of vaccine Z23 and Encounter for immunization Z23 [address] [id number], [place] [id number] May, Chronic obstructive pulmonary disease, unspecified COPD type J44.9 [address] [place] [address] [id number] May, Type 2 diabetes mellitus with diabetic polyneuropathy E11.42 ; Encounter for immunization Z23 ; Needs flu shot Z23 ; Comprehensive diabetic foot examination, type 2 DM, encounter for E11.9 and Obesity (BMI 30.0-34.9) E66.9 [address] [place] [address] [id number] May, [place] [id number] [place] [address] [id number] Apr, [place] [id number] [place] [address] [id number] Apr, Essential hypertension I10 and Aphasia R47.01 [address] [place] [address] [id number] Apr, [place] [id number] [place] [address] [id number] Apr, Type 2 diabetes mellitus with diabetic neuropathy E11.40 ; Frequent falls R29.6 ; Essential hypertension I10 ; S/P coronary artery stent placement Z95.5 ; High risk medication use Z79.899 ; Hyperlipidemia, unspecified hyperlipidemia E78.5 ; CKD (chronic kidney disease), stage 3 (moderate) N18.3 ; Pain in left shoulder M25.512 and Chronic obstructive pulmonary disease, unspecified COPD type J44.9 [place] [id number] [place] [address] [id number] Mar, [facility] [id number] [place] [address] [id number] Mar, Type 2 diabetes mellitus with diabetic polyneuropathy E11.42 ; Leg wound, left, initial encounter S81.802A ; Hx of shoulder surgery Z98.890 ; Acute pain of left shoulder M25.512 and Fall, initial encounter W19.XXXA [facility] [id number] [place] [address] [id number] Feb, Follow-up exam Z09 ; Hx of shoulder surgery Z98.890 ; Acute pain of left shoulder M25.512 ; Essential hypertension I10 and Leg wound, left, initial encounter S81.802A [facility] [id number] [place] [address] [id number] Feb, [facility] [id number] [place] [address] [id number] Feb, [facility] [id number] [place] [address] [id number] Feb, Chronic obstructive pulmonary disease, unspecified COPD type J44.9 [facility] [id number] [place] [address] [id number] Feb, [facility] [id number] [place] [address] [id number] Jan, Generalized weakness R53.1 ; Exertional shortness of breath R06.02 and Fungal rash of trunk B36.9 [facility] [id number] [place] [address] [id number] Jan, [facility] [id number] [place] [address] [id number] Jan, [facility] [id number] [place] [address] [id number] Jan, [facility] [id number] [place] [address] [id number] Jan, [facility] [id number] [place] [address] [id number] December, High risk medication use Z79.[address] [facility] [address] [id number][place] [id number] December, Type 2 diabetes mellitus with diabetic neuropathy E11.[address] [id number], [place] [id number] December, High risk medication use Z79.[address] [id number], [place] [id number] Nov, Diabetes type 2, uncontrolled E11.65 [place] [id number] [place] [address] [id number] Nov, Medicare annual wellness visit, initial Z00.00 ; Bilateral low back pain without sciatica M54.5 ; Pain in left shoulder M25.512 ; Chronic pain syndrome G89.4 ; Type 2 diabetes mellitus with diabetic polyneuropathy E11.42 ; High risk medication use Z79.899 and Encounter for immunization Z23 [address] [place] [address] [id number] Nov, Type 2 diabetes mellitus with diabetic neuropathy E11.40 ; Coronary artery disease involving [place] coronary artery of [place]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 and CKD (chronic kidney disease), stage 3 (moderate) N18.[id number] [place] [address] [id number] Oct, Type 2 diabetes mellitus with diabetic polyneuropathy E11.42 ; Chronic pain syndrome G89.4 ; Chronic obstructive pulmonary disease, unspecified COPD type J44.9 ; Chronic kidney disease, unspecified N18.9 and Rash R21 [address] [id number], [place] [id number] Oct, Type 2 diabetes mellitus with diabetic neuropathy E11.[address] [id number], [place] [id number] Oct, Rash R21 and Impetigo L01.[address] [id number], [place] [id number] Oct, Chronic pain syndrome G89.[address] [id number], [place] [id number] Oct, [place] [id number] [place] [address] [id number] Sep, Sebaceous cyst L72.3 [facility] [id number], [place] [id number] Sep, Sebaceous cyst L72.3 [facility] [id number] [place] [address] [id number] Sep, Chronic pain syndrome G89.4 ; Pain in left shoulder M25.512 and Effusion of olecranon bursa, left M25.422 [facility] [address] [id number] [address] Aug, [place] [id number] [place] [address] [id number] Aug, [place] [id number] [place] [address] [id number] Aug, Mixed hyperlipidemia E78.2 and Chronic kidney disease, unspecified N18.9 [place] [id number] [place] [address] [id number] Jul, Type 2 diabetes mellitus with diabetic neuropathy E11.40 ; Essential hypertension I10 and S/P coronary artery stent placement Z95.5 [place] [id number] [place] [address] [id number] Jul, 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 [place] [id number] [place] [address] [id number] Jul, Diabetes type 2, uncontrolled E11.65 ; Essential hypertension I10 and 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 [place] [id number] [place] [address] [id number] Jul, [address] [place] [address] [id number] Jul, [place] [id number] [place] [address] [id number] Jul, [place] [id number] [place] [address] [id number] Jul, Chronic obstructive pulmonary disease, unspecified COPD type J44.9 [place] [id number] [place] [address] [id number] Jun, CKD (chronic kidney disease), stage 3 (moderate) N18.3 and Anemia, unspecified type D64.9 [place] [id number] [place] [address] [id number] Jun, Type 2 diabetes mellitus with diabetic neuropathy E11.40 ; Decreased GFR R94.4 ; CKD (chronic kidney disease), stage 3 (moderate) N18.3 and Decreased hemoglobin R71.[address] [id number] Jun, CKD (chronic kidney disease), stage 3 (moderate) N18.3 and Anemia, unspecified type D64.9 [place] [id number] [place] [address] [id number] Jun, Type 2 diabetes mellitus with diabetic neuropathy E11.40 ; Decreased GFR R94.4 and CKD (chronic kidney disease), stage 3 (moderate) N18.3 [place] [id number] [place] [address] [id number] Jun, Type 2 diabetes mellitus with diabetic neuropathy E11.40 and Essential hypertension I10 [place] [id number] [place] [address] [id number] Jun, [address] [id number] Jun, [address] [id number] Jun, Type 2 diabetes mellitus with diabetic neuropathy E11.40 ; S/P coronary artery stent placement Z95.5 ; Chronic obstructive pulmonary disease, unspecified COPD type J44.9 ; Essential hypertension I10 ; GERD without esophagitis K21.9 ; Peripheral vascular disease I73.9 ; Mixed hyperlipidemia E78.2 and Hospital discharge follow-up Z09 [address] [id number] Jun, [address] [id number] May, 2016 Depression F32.9 and Hyperlipidemia, unspecified hyperlipidemia E78.5 [facility] [address] [id number] [address]497 May, [address] [place] [address] [id number] May, [address] [id number] May, Essential hypertension I10 ; Chronic pain syndrome G89.4 ; Pain in left shoulder M25.512 ; High risk medication use Z79.899 ; Chronic obstructive pulmonary disease, unspecified COPD type J44.9 ; S/P coronary artery stent placement Z95.5 ; Personal history of carotid stenosis Z86.79 ; Hyperlipidemia, unspecified hyperlipidemia E78.5 ; Decreased GFR R94.4 and Type 2 diabetes mellitus with diabetic polyneuropathy E11.42 [place] [id number] [place] [address] [id number] May, Hemoglobin decreased R71.0 and Decreased GFR R94.4 [place] [id number] [place] [address] [id number] May, Hemoglobin decreased R71.0 and Decreased GFR R94.4 [place] [id number] [place] [address] [id number] May, [place] [id number] [place] [address] [id number] May, [place] [id number] [place] [address] [id number] Apr, [place] [id number] [place] [address] [id number] Apr, Type 2 diabetes mellitus with foot [...] unspecified hyperlipidemia E78.5 and Essential hypertension I10 [place] [id number] [place] [address] [id number] Apr, [address] [place] [id number] Mar, [facility] [id number], [place] [id number] Mar, [facility] [address] [place] [address] [phone] Mar, [facility] [id number] [place] [address] [id number] Feb, [facility] [id number] [place] [address] [id number] Feb, [facility] [id number] [place] [address] [id number] Feb, [facility] [id number] [place] [address] [id number] Jan, Type 2 diabetes mellitus with diabetic polyneuropathy E11.42 ; Hypercholesterolemia E78.0 ; Chronic pain syndrome G89.4 ; Pain in left shoulder M25.512 and High risk medication use Z79.899 [facility] [id number] [place] [address] [id number] Jan, [facility] [id number] [place] [address] [id number] Jan, [facility] [id number] [place] [address] [id number] December, [facility] [id number] [place] [address] [id number] December, [place] [address]100[place] [address] December, Diabetes type 2, uncontrolled E11.65 ; Type 2 diabetes mellitus with diabetic neuropathy E11.40 ; Peripheral vascular disease I73.9 ; 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 and 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 [facility] [id number], [place] [id number] Nov, [facility] [id number] [place] [address] [id number] Nov, [facility] [id number] [place] [address] [id number] Nov, [facility] [address] [id number], [place] [id number] Nov, Right hip pain M25.551 [facility] [address] [facility] [id number] [place] [address]- 4468 Nov, [facility] [id number] [place] [address]- 5670 Nov, [facility] [place] [id number] [place] [address] [id number] Nov, Diabetes with neurological manifestations, type II or unspecified type, 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.60 [facility] [place] [id number] [place] [address] [id number] Nov, [facility] [place] [id number] [place] [address] [id number] Nov, [facility] [place] [place] [id number] [place] [address] [id number] Oct, Diabetes type 2, uncontrolled E11.65 ; Type 2 diabetes mellitus with diabetic neuropathy, unspecified E11.40 and Low back pain M54.5 [facility] [place] [address] [id number], [place] [id number] Oct, [facility] [place] [id number] [place] [address] [id number] Oct, [facility] [place] [id number] [place] [address] [id number] Oct, [facility] [place] [id number] [place] [address] [id number] Sep, [facility] [place] [address] [id number], [place] [id number] Sep, [facility] [address] [facility] [id number], [place] [address] Sep, [facility] [place] [address] [id number], [place] [id number] Sep, [facility] [place] [id number] [place] [address] [id number] Sep, [facility] [place] [id number] [place] [address] [id number] Aug, 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 [facility] [address] [id number], [place] [id number] Aug, [facility] [address] [place] [address] [id number] Aug, Allergic rhinitis due to pollen J30.1 [facility] [address] [facility] [id number][place] [id number] Jul, [facility] [id number] [place] [address] [id number] Jul, [address] [place] [address] [id number] Jul, [place] [id number] [place] [address] [id number] Jun, [address] [place] [address] [id number] Jun, Thumb tendonitis M77.8 and Ringing in ear, bilateral H93.13 [facility] [address] [facility] [id number] [id number] Jun, [id number] [place] [address] [id number] May, [place] [id number] [place] [address] 520243- 9364 May, [facility] [id number] [place] [address] 77816- 1645 May, Pre-op evaluation Z01.818 ; Encounter for immunization Z23 ; Type 2 diabetes mellitus with diabetic peripheral angiopathy without gangrene E11.51 ; Insulin long-term use Z79.4 ; Type 2 diabetes mellitus with foot ulcer E11.621 ; Peripheral vascular disease I73.9 ; Coronary artery disease involving [place] coronary artery of [place]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 ; S/P coronary artery stent placement Z95.5 ; Osteomyelitis of right foot, unspecified chronicity M86.9 and Chronic obstructive pulmonary disease, unspecified COPD type J44.9 [facility] [address] [place] [address]- [address] May, [facility] [id number] [place] [address] [phone] May, [facility] [address] [id number] May, Diabetes type 2, uncontrolled E11.65 ; Encounter for immunization Z23 ; Osteopenia M85.80 and Allergic rhinitis due to pollen J30.1 [facility] [id number] [place] [address] [id number] May, Lumbago 724.2 [facility] [id number] [place] [address] [phone] Apr, [facility] [id number] [place] [address] [phone] Apr, [facility] [id number] [place] [address] [phone] Apr, [facility] [id number] [place] [address] [phone] Apr, [facility] [id number] [place] [address] 58637 2547 Mar, [facility] [id number] [place] [address] [phone] Mar, [facility] [id number] [place] [address] [phone] Mar, [facility] [id number] [place] [address] [phone] Mar, [facility] [id number] [place] [address] [phone] Mar, [facility] [id number] [place] [address] 57320- 4444 Mar, [facility] [id number] [place] [address] [phone] Mar, [facility] [id number] [place] [address] [phone] Mar, Diabetes with neurological manifestations, type II or unspecified type, 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.60 and Severe obesity (BMI 35.0-35.9 with comorbidity) 278.01 [facility] [id number] [id number] Mar, [facility] [id number] [place] [address] 17237- 2546 Mar, [facility] [id number] [place] [address] 41077- 2546 Feb, [facility] [id number], [place] [id number] Feb, [facility] [id number] [place] [address] [id number] Feb, [facility] [id number] [place] [address] [id number] Feb, Diabetes with neurological manifestations, type II or unspecified type, 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.60 [facility] [id number] [place] [address] [phone] Feb, [facility] [address] [address]- 2546 Feb, [facility] [id number], [place] [id number] Feb, [facility] [id number] [place] [address] [id number] Feb, Follow up V67.9 ; Diabetes with neurological manifestations, type II or unspecified type, 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.60 and Congestive heart failure 428.0 [facility] [id number], [place] [id number] Jan, [facility] [id number], [place] [id number] Jan, [facility] [id number], [place] [id number] Jan, [facility] [id number] [place] [address] [phone] December, Otitis media with effusion 381.4 ; Left arm numbness 782.0 and Osteoporosis 733.00 [facility] [id number] [place] [address] [id number] December, [facility] [address] [facility] [id number] [place] [id number] Nov, [facility] [address] [id number], [place] [id number] Nov, Serous otitis media 381.4 and Lumbago 724.2 [facility] [place] [facility] [address]00565100[place], [place] [address]- 2546 Nov, [facility] [place] [facility] [address]00565100[place], [place] [address]- 2546 Nov, [facility] [address] [id number], [place] [id number] Oct, [facility] [place] [facility] [address]00565100[place], [place] [address]- 2546 Oct, [facility] [id number], [place] [id number] Oct, [facility] [place] [facility] [address]00565100[place], [place] [address]- 8476 Oct, [facility] [address] [id number], [place] [id number] Oct, [facility] [place] [facility] [address]00565100[place], [place] [address]- 6056 Oct, [facility] [place] [facility] [address]00565100[place], [place] [address]- 2546 Sep, [facility] [place] [facility] [address] [id number] [address]- 2546 Sep, [facility] [address] [id number], [place] [id number] Sep, [facility] [place] [facility] [address]00565100[place], [place] [address]- 2546 Sep, [facility] [address] [id number], [place] [id number] Aug, [facility] [place] [facility] [address]00565100[place], [place] [address]- 2616 Aug, [facility] [address] [id number] [place] [id number] Aug, [facility] [address] [facility] [id number] [address]- 2546 Aug, [facility] [address] [id number] [place] [id number] Jul, [facility] [place] [facility] [address] [facility] [id number] [address] 2546 Jul, [facility] [address] [facility] [id number], [place] [id number] Jul, [facility] [place] [facility] [address] [facility] [id number], [place] [address] 2546 Jul, [facility] [address] [facility] [id number], [place] [id number] Jul, [facility] [address]00565100[place], [place] [address] 2546 Jul, [facility] [address] [facility] [id number], [place] [id number] Jun, [facility] [address] [facility] [id number], [place] [address]- 5526 Jun, [facility] [address] [facility] [id number], [place] [id number] May, [facility] [place] [facility] [address] [facility] [id number], [place] [address]- 4446 May, [facility] [address] [facility] [id number], [place] [id number] May, [facility] [place] [facility] [address] [facility] [id number] [address]- 2546 May, [facility] [address] [facility] [id number], [place] [id number] May, [facility] [place] [facility] [address] [facility] [id number], [place] [address]- 5336 May, [facility] [address] [facility] [id number], [place] [id number] May, [facility] [address] [id number] [place] [id number] May, [facility] [place] [facility] [address] [facility] [id number] [place]- 0202 May, [facility] [place] [facility] [address] [facility] [id number] [place] [address]- 6021 May, [facility] [address] [id number] [place] [id number] May, [facility] [place] [facility] [address] [facility] [id number] [place]- 4087 May, [facility] [place] [facility] [address] [facility] [id number] [place] [address]- 5656 Apr, [facility] [address] [facility] [id number], [place] [id number] Apr, [facility] [place] [facility] [address]00565100[place], [place] [address]- 3277 Apr, [facility] [address] [id number], [place] [id number] Apr, [facility] [address] [id number], [place] [id number] Apr, [facility] [place] [facility] [address] [facility] [id number], [place] [address]- 4239 Apr, [facility] [place] [facility] [address] [facility] [id number] [address]- 2464 Apr, [facility] [address] [id number], [place] [id number] Apr, [facility] [place] [facility] [address] [facility] [id number] [address]- 9262 Apr, [facility] [address] [id number], [place] 711058474 Apr, [facility] [place] [facility] [address] [facility] [id number], [place] 77508284- 5439 Apr, [facility] [address] [id number], [place] [id number] Apr, [facility] [place] [facility] [address] [id number] [place] [address]- 2582 Apr, [facility] [address] [id number] [place] [id number] Apr, [facility] [place] [facility] [address] [facility] [id number] [place] [address]- 5506 Apr, [facility] [address] [id number] [place] [id number] Apr, [facility] [place] [facility] [address] [id number] [place] [address]- 4889 Apr, [facility] [address] [id number] [place] [id number] Apr, [facility] [place] [facility] [address] [facility] [id number], [place] [address]- 7206 Apr, [facility] [address] [id number] [place] [id number] Mar, [facility] [place] [facility] [address] [facility] [id number], [place] [address]- 5341 Mar, [facility] [address] [id number] [place] [id number] Mar, [facility] [address] [id number] [place] [id number] Mar, [facility] [place] [facility] [address] [facility] [id number], [place] [address]- 7421 Mar, [facility] [place] [facility] [address] [facility] [id number] [address]- 5036 Mar, [facility] [address] [id number] [place] [id number] Mar, [facility] [place] [facility] [address] [facility] [id number], [place] [address]- 5011 Mar, [facility] [address] [id number] [place] [id number] Mar, [facility] [place] [facility] [address] [facility] [id number], [place] [address]- 3527 Mar, [facility] [address] [id number] [place] [id number] Mar, [facility] [place] [facility] [address] [facility] [id number] [place] [address]- 6338 Mar, [facility] [address] [id number] [place] [id number] Mar, [facility] [place] [facility] [address] [facility] [id number], [place] [address]- 7722 Mar, [facility] [address] [id number] [place] [id number] Mar, [facility] [place] [facility] [address] [facility] [id number] [place] [address]- 7026 Mar, [facility] [address] [id number] [place] [id number] Mar, [facility] [place] [facility] [address] [facility] [id number], [place] [address]- 6408 Mar, [facility] [address] [id number] [place] [id number] Mar, [facility] [place] [facility] [address] [facility] [id number], [place] [address]- 2028 Mar, [facility] [address] [id number], [place] [id number] Feb, [facility] [place] [facility] [address] [facility] [id number], [place] [address]- 5152 Feb, [facility] [address] [id number] [place] [id number] Feb, [facility] [place] [facility] [address] [id number], [place] [address]- 5919 Feb, [facility] [address] [id number] [place] [id number] Feb, [facility] [place] [facility] [address] [facility] [id number], [place] [address]- 4492 Feb, [facility] [address] [id number], [place] 392130539 Feb, [facility] [place] [facility] [address] [id number] [place] [address]- 1336 Feb, [facility] [address] [id number] [place] [id number] Feb, [facility] [place] [facility] [address] [id number] [place] [address]- 5919 Feb, [facility] [address] [id number] [place] [id number] Feb, [facility] [place] [facility] [address] [id number] [place] [address]- 0497 Feb, [facility] [address] [id number] [place] [id number] Feb, [facility] [place] [facility] [address] [facility] [id number] [place] [address]- 3123 Feb, [facility] [address] [id number] [place] [id number] Feb, [facility] [place] [facility] [address] [id number] [place] [address]- 4555 Feb, [facility] [address] [id number] [place] [id number] Feb, [facility] [place] [facility] [address] [id number] [place] 81765680- 0137 Feb, [facility] [address] [id number] [place] [id number] Feb, [facility] [address] [id number] [place] [id number] Feb, [facility] [place] [facility] [address] [id number] [place] [address]- 3404 Feb, [facility] [place] [facility] [address] [facility] [id number] [place] [address]- 0314 Feb, [facility] [address] [id number] [place] [id number] Feb, [facility] [place] [facility] [address] [facility] [id number] [place] [address]- 6159 Feb, [facility] [address] [id number] [place] [id number] Feb, [facility] [place] [facility] [address] [facility] [id number], [place] [address]- 9424 Feb, [facility] [address] [id number] [place] [id number] Feb, [facility] [place] [facility] [address] [facility] [id number] [place] [address]- 8678 Feb, [facility] [address] [id number] [place] [id number] Jan, [facility] [place] [facility] [address] [facility] [id number] [place] [address]- 4785 Jan, [facility] [place] [facility] [address] [facility] [id number] [place] [address]- 8308 Jan, [facility] [place] [facility] [address] [facility] [id number], [place] [address]- 1160 Jan, [facility] [place] [facility] [address] [facility] [id number] [place] [address]- 7899 Jan, [facility] [place] [facility] [address] [facility] [id number], [place] [address]- 9375 Jan, [facility] [address] [facility] [id number] [place] [id number] Jan, [facility] [place] [facility] [address] [facility] [id number], [place] [address]- 8491 Jan, [facility] [place] [facility] [address] [facility] [id number] [place] [address]- 9297 Jan, [facility] [place] [facility] [address] [facility] [id number] [place] [address]- 7036 Jan, [facility] [address] [id number] [place] [id number] Jan, [facility] [address] [id number] [place] [id number] Jan, [facility] [place] [facility] [address] [id number] [place] [address]- 5886 Jan, [facility] [place] [facility] [address] [facility] [id number] [place] [address]- 2102 Jan, [facility] [address] [facility] [id number], [place] 919008025 Jan, [facility] [address] [facility] [id number] [place] [id number] Jan, [facility] [place] [facility] [address] [facility] [id number] [place] [address]- 2796 Jan, [facility] [place] [facility] [address] [facility] [id number] [place] [address]- 2976 Jan, [facility] [place] [facility] [address] [facility] [id number] [place] [address]- 7216 Jan, [facility] [address] [facility] [id number], [place] [id number] December, [facility] [place] [facility] [address] [facility] [id number] [place] [address]- 1916 December, [facility] [place] [facility] [address] [facility] [id number] [place] [address]- 1626 December, [facility] [address] [facility] [id number], [place] [id number] December, [facility] [place] [facility] [address] [facility] [id number], [place] [address]- 6866 December, [facility] [address] [facility] [id number], [place] 418470046 December, [facility] [place] [facility] [address] [facility] [id number] [place] [address]- 0816 December, [facility] [address] [facility] [id number], [place] 537085649 December, [facility] [place] [facility] [address] [facility] [id number] [place] [address]- 8466 December, [facility] [address] [facility] [id number], [place] [id number] Nov, [facility] [place] [facility] [address] [facility] [id number] [place] [address]- 7147 Nov, [facility] [address] [facility] [id number] [place] [id number] Nov, [facility] [place] [facility] [address] [facility] [id number] [place]- 0392 Nov, [facility] [place] [facility] [address] [facility] [id number] [place] [address]- 5456 Nov, [facility] [place] [facility] [address] [facility] [id number] [place] [address]- 0428 Nov, [facility] [place] [facility] [address] [facility] [id number] [place] [address]- 6395 Oct, [facility] [address] [facility] [id number] [place] [id number] Oct, [facility] [place] [facility] [address] [id number], [place] [address]- 0259 Oct, [facility] [address] [facility] [id number] [place] [id number] Oct, [facility] [place] [facility] [address] [id number], [place] [address]- 5546 Oct, [facility] [address] [facility] [id number] [place] [id number] Sep, [facility] [place] [facility] [address] [facility] [id number], [place] [address]- 2828 Sep, [facility] [address] [facility] [id number], [place] [id number] Aug, [facility] [place] [facility] [address] [facility] [id number], [place] [address] Aug, [facility] [address] [facility] [id number][place] [id number] Aug, [facility] [place] [facility] [address] [facility] [id number] [place] [address] Aug, [facility] [place] [facility] [address] [facility] [id number], [place] [address] Aug, [facility] [address] [facility] [id number][place] [id number] Aug, [facility] [place] [facility] [address] [facility] [id number] [address] Aug, [facility] [address] [facility] [id number][place] [address] Aug, [facility] [address] [facility] [id number][place] [id number] Aug, [facility] [place] [facility] [address] [facility] [id number], [place] [address] Aug, [facility] [address] [facility] [id number][place] [id number] Jul, [facility] [id number] [address] Jul, [facility] [address] [facility] [id number], [place] [id number] Jul, [facility] [place] [facility] [address] [facility] [id number], [place] [address] Jul, [facility] [address] [facility] [id number], [place] [id number] Jul, [facility] [place] [facility] [address] [id number] [address] Jul, [facility] [address] [facility] [id number], [place] [id number] Jul, [facility] [place] [facility] [address] [facility] [id number], [place] [address] Jul, [facility] [address] [facility] [id number][place] [id number] Jun, [facility] [place] [facility] [address] [facility] [id number] [place] [address] Jun, [facility] [address] [facility] [id number][place] [id number] Jun, [facility] [place] [facility] [address] [facility] [id number], [place] [address] Jun, [facility] [address] [facility] [id number], [place] [address] Jun, [facility] [address] [facility] [id number], [place] [address] Jun, [facility] [address] [id number] [place] [id number] Apr, [facility] [address] [id number] [place] [id number] Mar, [facility] [address] [id number] [place] [id number] Mar, [facility] [address] [id number] [place] [address] Feb, [facility] [address] [id number] [place] [id number] Feb, [facility] [address] [id number] [place] [address] Feb, [facility] [address] [id number] [place] [id number] December, [facility] [address] [id number] [place] [id number] December, [facility] [address] [facility] [id number], [place] [address] December, [facility] [address] [id number] [place] [id number] December, [facility] [address] [id number] [place] [address] December, [facility] [address] [id number] [place] [id number] Nov, [facility] [address] [id number] [place] [address] Nov, [facility] [address] [id number] [place] [address] Nov, [facility] [address] [id number] [place] [id number] Oct, [facility] [address] [id number], [place] [address] Sep, [facility] [address] [id number] [place] [id number] Aug, [facility] [place] [facility] [address] [facility] [id number], [place] [address] Aug, [facility] [address] [id number][place] [address] Aug, [facility] [address] [id number], [place] [id number] Jul, [facility] [place] [facility] [address] [facility] [id number], [place] [address] Jul, [facility] [address] [id number], [place] [id number] Jul, [facility] [place] [facility] [address]00565100[place], [place] [address] Jul, [facility] [address] [id number], [place] [address] Jun, [facility] [place] [facility] [address]00565100[place] [address] Jun, [facility] [address] [id number] [id number] May, [facility] [place] [facility] [address] [id number], [place] [address] May, [facility] [address] [id number], [place] [id number] May, [facility] [place] [facility] [address] [facility] [id number][place] [id number] May, [facility] [address] [id number] [id number] Apr, [facility] [address] [id number] [id number] Apr, [facility] [address] [id number] [id number] Mar, [facility] [address] [id number] [place] [id number] Mar, [facility] [place] [address] [id number] [place] [id number] Feb, [facility] [place] [address] [id number] [place] [id number] Feb, [facility] [place] [address] [id number] [place] [id number] Jan, [facility] [place] [address] [id number] [place] [id number] Jan, [facility] [place] [address] [id number] [place] [id number] Jan, [facility] [place] [address] [id number] [place] [id number] Jan, [facility] [address] [id number] [place] [id number] December, [facility] [address] [id number] [place] [id number] December, [facility] [address] [facility] [id number] [address] Nov, [facility] [address] [id number] [place] [id number] Nov, [facility] [address] [id number] [place] [id number] Nov, [facility] [address] [id number] [place] [id number] Nov, [facility] [address] [id number] [place] [id number] Nov, [facility] [address] [facility] [id number], [place] [address] Oct, [facility] [place] [facility] [address] [facility] [id number], [place] [address] Oct, [facility] [address] [id number] [place] [id number] Oct, [facility] [address] [id number] [place] [id number] Oct, [facility] [place] [address] [id number] [place] [id number] Oct, [facility] [place] [address] [id number] [place] [id number] Oct, [facility] [place] [address] [id number] [place] [id number] Oct, [facility] [place] [address] [id number] [place] [id number] Oct, [facility] [place] [address] [id number] [place] [id number] Oct, [facility] [address] [id number] [place] [address] Oct, [facility] [place] [address] [id number] [place] [id number] Sep, [facility] [place] [address] [id number] [place] [id number] Sep, [facility] [address] [id number] [place] [id number] Aug, [facility] [address] [id number] [place] [id number] Aug, [facility] [address] [address] Jul, [facility] [place] [facility] [address], [place] [address] Jul, [facility] [place] [facility] [id number], [place] [address] Jul, [facility] [place] [facility] [address] [facility] [id number], [place] [address] Jul, [facility] [place] [facility] [id number] [place] [address] Jul, [facility] [place] [facility] [address], [place] [address] Jul, [facility] [place] [facility] [address], [place] [address] Jul, [facility] [place] [facility] [address] [id number], [place] [address] Jul, [facility] [address] [id number], [place] [address] Jul, [facility] [address] [id number], [place] [address] Jul, [facility] [address] [id number], [place] [address] Jul, [facility] [address] [id number], [place] [address] Jul, [facility] [address], [place] [address] Jul, [facility] [address] [id number], [place] [address] Jul, IMMUNIZATIONS No Known Immunizations SOCIAL HISTORY Never Assessed REASON FOR VISIT Requests return call PLAN OF CARE VITAL SIGNS MEDICATIONS Medication Instructions Dosage Frequency Start Date End Date Duration Status NovoLog Flexpen 100 UNIT/ML Subcutaneous 3 times a day before meals (if bs less than 90 then hold ) 6 units Aug, Active Levemir FlexTouch 100 UNIT/ML Subcutaneous 2 times a day [...] in the future. Medical History 05/26/17 noted, retirement has ended and they feel he is [...] Surgical History Left eye retinal eye repair ([facility]) 06/2014 Surgical History amputation, toe-right third toe ([facility]) 2013 Surgical History Right eye retinal eye repair ([facility]) 09/2014 Surgical History heart cath with stent [...]
--- OUTSIDE RECORDS SUMMARY | 2018-06-20 10:57 | XMS REPORT ---
Author Author SATINDER GOOD Organization [facility] Address [address] [place] [address] Care Team Providers Care Hospice Office Coordinator Name Role Phone SATINDER GOOD Unavailable PROBLEMS Type Condition ICD9-CM Code FWO29-FD Code Onset Dates Condition Status SNOMED Code Problem Peripheral vascular disease I73.9 Active 860375006 Problem Coronary artery disease involving [place] coronary artery of [place]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 Active 7768480325254 Problem S/P coronary artery stent placement Z95.5 Active 885621670 Problem Chronic obstructive pulmonary disease, unspecified COPD type J44.9 Active 23470163 Problem Type 2 diabetes mellitus with diabetic neuropathy E11.40 Active 50020470 Problem Bilateral low back pain without sciatica M54.5 Active 472611469 Problem 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 Active 260792527 Problem 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 Active 495528954 Problem Hypercholesterolemia E78.0 Active 86248243 Problem Comprehensive diabetic foot examination, type 2 DM, encounter for E11.9 Active 46233185 Problem Type 2 diabetes mellitus with diabetic polyneuropathy E11.42 Active 329310923 Problem Obesity (BMI 30.0-34.9) E66.9 Active 506647260606708 Problem Personal history of carotid stenosis Z86.79 Active 361585630 Problem Aphasia R47.01 Active 27790908 Problem Chronic diarrhea K52.9 Active 239166944 Problem Uses walker Z99.89 Active 584468040 Problem Chronic fatigue R53.82 Active 01564401 Problem Mixed stress and urge urinary incontinence N39.46 Active 557013439 Problem Chronic pain syndrome G89.4 Active 309405119 Problem High risk medication use Z79.899 Active 809236209 Problem Osteomyelitis of right foot, unspecified chronicity M86.9 Active 57293151 Problem Fatigue, unspecified type R53.83 Active 18445563 Problem Diabetes type 2, uncontrolled E11.65 Active 113848152 Problem Full incontinence of feces R15.9 Active 071147536599675 Problem Other chronic pain G89.29 Active 79873423 Problem Functional diarrhea K59.1 Active 60627587 Problem Fecal urgency R15.2 Active 87257312 Problem Depression F32.9 Active 29827112 Problem CKD (chronic kidney disease), stage 3 (moderate) N18.3 Active 038314935 Problem Hyperlipidemia, unspecified hyperlipidemia E78.5 Active 46518954 Problem CKD (chronic kidney disease) stage 3, GFR 30-59 ml/min N18.3 Active 069289478 Problem Type 2 diabetes mellitus with diabetic peripheral angiopathy without gangrene E11.51 Active 609171681 Problem Pain in left shoulder M25.512 Active 30317038 Problem Insulin long-term use Z79.4 Active 680768578 Problem Essential hypertension I10 Active 35598408 Problem Type 2 diabetes mellitus with diabetic retinopathy, macular edema presence unspecified, with unspecified retinopathy severity E11.319 Active 25172973 Problem Chronic kidney disease, unspecified N18.9 Active 472571493 Problem Type 2 diabetes mellitus with foot ulcer E11.621 Active 405793146 Problem Frequent falls R29.6 Active 351694626 Problem GERD without esophagitis K21.9 Active 824738415 Problem Mixed hyperlipidemia E78.2 Active 012964910 ALLERGIES No Information ENCOUNTERS Encounter Location Date Diagnosis [facility] [address] [id number] Apr, [facility] [place] [address] [id number] Mar, Other chronic pain G89.29 [facility] [place] [id number] [place] [address] [id number] Mar, [facility] [place] [id number] [place] [address] [id number] Feb, Other chronic pain G89.29 [facility] [place] [id number] [place] [address] [id number] Feb, [facility] [place] [address] [id number] [place] [address] [id number] Feb, [facility] [place] [id number] [place] [address] [id number] Feb, Diabetes type 2, uncontrolled E11.65 [facility] [address] [id number] [id number] Feb, Other chronic pain G89.29 [facility] [id number][place] [id number] Jan, [facility] [address] [id number][place] [id number] Jan, [facility] [id number] [place] [address] [id number] Jan, [facility] [id number][place] [id number] Jan, Other chronic pain G89.29 [facility] [id number] [place] [address] [id number] December, Mixed stress and urge urinary incontinence N39.46 [facility] [id number] [place] [address] [id number] December, Chronic fatigue R53.82 [facility] [id number] [place] [address] [id number] December, Other chronic pain G89.29 [facility] [id number], [place] [id number] December, Diabetes type 2, uncontrolled E11.65 ; [...] J44.9 and Other chronic pain G89.29 [facility] [address] [facility] [id number] [place] [phone] December, [facility] [address] [id number][place] [id number] December, Medicare annual wellness visit, subsequent Z00.00 ; Type 2 diabetes mellitus with diabetic polyneuropathy E11.42 ; Chronic obstructive pulmonary disease, unspecified COPD type J44.9 ; Depression F32.9 ; Peripheral vascular disease I73.9 ; Coronary artery disease involving [place] coronary artery of [place]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 ; Hypercholesterolemia E78.0 ; GERD without esophagitis K21.9 and Chronic kidney disease, unspecified N18.[address] [id number] December, Mixed stress and urge urinary incontinence N39.46 ; Full incontinence of feces R15.9 ; Fecal urgency R15.2 ; Functional diarrhea K59.1 and Type 2 diabetes mellitus with diabetic neuropathy E11.[address] [id number] Nov, Other chronic pain G89.[address] [id number] Oct, [address] [id number] Oct, [address] [id number] Oct, Other chronic pain G89.[address] [id number] Sep, Other chronic pain G89.29 [place] [id number] [place] [address] [id number] Aug, CKD (chronic kidney disease), stage 3 (moderate) N18.3 ; Anemia, unspecified type D64.9 and Dilated pore of Ly L70.8 [place] [id number] [place] [address] [id number] Aug, Other chronic pain G89.29 ; Pain in left shoulder M25.512 ; High risk medication use Z79.899 ; Uses walker Z99.89 ; Diabetes type 2, uncontrolled E11.65 and Depression F32.9 [place] [id number] [place] [address] [id number] Aug, Chronic diarrhea K52.[address] [id number] Aug, Chronic diarrhea K52.9 ; Type 2 diabetes mellitus with diabetic neuropathy E11.40 ; Diabetes type 2, uncontrolled E11.65 ; Insulin long-term use Z79.4 ; Chronic obstructive pulmonary disease, unspecified COPD type J44.9 ; Chronic pain syndrome G89.4 ; Pain in left shoulder M25.512 ; Uses walker Z99.89 ; S/P coronary artery stent placement Z95.5 ; Mixed hyperlipidemia E78.2 and Essential hypertension I10 [facility] [id number] [place] [address] [id number] Aug, [facility] [address] [id number] Jul, Diabetes type 2, uncontrolled E11.65 [facility] [id number] [place] [address] [id number] Jul, Diabetes type 2, uncontrolled E11.65 ; Type 2 diabetes mellitus with diabetic neuropathy E11.40 ; Insulin long-term use Z79.4 and Chronic obstructive pulmonary disease, unspecified COPD type J44.9 [facility] [id number] [place] [address] [id number] Jun, [facility] [id number] [place] [address] [id number] Jun, Essential hypertension I10 [facility] [id number] [place] [address] [id number] Jun, Essential hypertension I10 [facility] [id number] [place] [address] [id number] Jun, Type 2 diabetes mellitus with diabetic neuropathy E11.40 ; Type 2 diabetes mellitus with diabetic polyneuropathy E11.42 ; S/P coronary artery stent placement Z95.5 ; Obesity (BMI 30.0-34.9) E66.9 ; Mixed hyperlipidemia E78.2 ; Frequent falls R29.6 ; Chronic obstructive pulmonary disease, unspecified COPD type J44.9 ; Essential hypertension I10 ; Insulin long-term use Z79.4 and High risk medication use Z79.899 [facility] [id number] [place] [address] [id number] May, Diarrhea, unspecified type R19.7 ; Type 2 diabetes mellitus with diabetic neuropathy E11.40 ; Chronic obstructive pulmonary disease, unspecified COPD type J44.9 ; S/P coronary artery stent placement Z95.5 ; High risk medication use Z79.899 ; Essential hypertension I10 ; Encounter for administration of vaccine Z23 and Encounter for immunization Z23 [facility] [address] [id number] [place] [id number] May, Chronic obstructive pulmonary disease, unspecified COPD type J44.9 [address] [place] [address] [id number] May, Type 2 diabetes mellitus with diabetic polyneuropathy E11.42 ; Encounter for immunization Z23 ; Needs flu shot Z23 ; Comprehensive diabetic foot examination, type 2 DM, encounter for E11.9 and Obesity (BMI 30.0-34.9) E66.9 [facility] [id number] [place] [address] [id number] May, [place] [id number] [place] [address] [id number] Apr, [place] [address] [place] [address] [id number] Apr, Essential hypertension I10 and Aphasia R47.01 [place] [address] [place] [address] [id number] Apr, [place] [address] [place] [address] [id number] Apr, Type 2 diabetes mellitus with diabetic neuropathy E11.40 ; Frequent falls R29.6 ; Essential hypertension I10 ; S/P coronary artery stent placement Z95.5 ; High risk medication use Z79.899 ; Hyperlipidemia, unspecified hyperlipidemia E78.5 ; CKD (chronic kidney disease), stage 3 (moderate) N18.3 ; Pain in left shoulder M25.512 and Chronic obstructive pulmonary disease, unspecified COPD type J44.9 [facility] [address]00565100[place] [id number] Mar, [place] [address] [place] [address] [id number] Mar, Type 2 diabetes mellitus with diabetic polyneuropathy E11.42 ; Leg wound, left, initial encounter S81.802A ; Hx of shoulder surgery Z98.890 ; Acute pain of left shoulder M25.512 and Fall, initial encounter W19.XXXA [facility] [place] [address] [id number] Feb, Follow-up exam Z09 ; Hx of shoulder surgery Z98.890 ; Acute pain of left shoulder M25.512 ; Essential hypertension I10 and Leg wound, left, initial encounter S81.802A [facility] [place] [address] [id number] Feb, [facility] [place] [address] [id number] Feb, [facility] [place] [address] [id number] Feb, Chronic obstructive pulmonary disease, unspecified COPD type J44.9 [facility] [address] [id number] Feb, [facility] [address] [id number] Jan, Generalized weakness R53.1 ; Exertional shortness of breath R06.02 and Fungal rash of trunk B36.9 [facility] [place] [id number] [place] [address] [id number] Jan, [facility] [place] [id number] [place] [address] [id number] Jan, [facility] [place] [id number] [place] [address] [id number] Jan, [facility] [place] [address] [id number] Jan, [facility] [place] [id number] [place] [address] [id number] December, High risk medication use Z79.899 [facility] [place] [id number] [place] [address] [id number] December, Type 2 diabetes mellitus with diabetic neuropathy E11.40 [facility] [place] [id number] [place] [address] [id number] December, High risk medication use Z79.[address] [id number][place] [id number] Nov, Diabetes type 2, uncontrolled E11.65 [address] [place] [address] [id number] Nov, Medicare annual wellness visit, initial Z00.00 ; Bilateral low back pain without sciatica M54.5 ; Pain in left shoulder M25.512 ; Chronic pain syndrome G89.4 ; Type 2 diabetes mellitus with diabetic polyneuropathy E11.42 ; High risk medication use Z79.899 and Encounter for immunization Z23 [address] [place] [address] [id number] Nov, Type 2 diabetes mellitus with diabetic neuropathy E11.40 ; Coronary artery disease involving [place] coronary artery of [place]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 and CKD (chronic kidney disease), stage 3 (moderate) N18.3 [address] [place] [address] [id number] Oct, Type 2 diabetes mellitus with diabetic polyneuropathy E11.42 ; Chronic pain syndrome G89.4 ; Chronic obstructive pulmonary disease, unspecified COPD type J44.9 ; Chronic kidney disease, unspecified N18.9 and Rash R21 [address] [id number][place] [id number] Oct, Type 2 diabetes mellitus with diabetic neuropathy E11.[address] [id number], [place] [id number] Oct, Rash R21 and Impetigo L01.[id number] [place] [address] [id number] Oct, Chronic pain syndrome G89.[address] [id number] [place] [address] [id number] Oct, [address] [place] [address] [id number] Sep, Sebaceous cyst L72.3 [address] [place] [address] [id number] Sep, Sebaceous cyst L72.3 [place] [address] [place] [address] [id number] Sep, Chronic pain syndrome G89.4 ; Pain in left shoulder M25.512 and Effusion of olecranon bursa, left M25.422 [facility] [address] [place] [phone] Aug, [address] [place] [address] [id number] Aug, [place] [id number] [place] [address] [id number] Aug, Mixed hyperlipidemia E78.2 and Chronic kidney disease, unspecified N18.9 [place] [address] [place] [address] [id number] Jul, Type 2 diabetes mellitus with diabetic neuropathy E11.40 ; Essential hypertension I10 and S/P coronary artery stent placement Z95.5 [place] [address] [place] [address] [id number] Jul, 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 [place] [address] [place] [address] [id number] Jul, Diabetes type 2, uncontrolled E11.65 ; Essential hypertension I10 and 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 [address] [place] [address] [id number] Jul, [place] [address] [place] [address] [id number] Jul, [place] [address] [place] [address] [id number] Jul, [place] [address] [place] [address] [id number] Jul, Chronic obstructive pulmonary disease, unspecified COPD type J44.9 [place] [address] [place] [address] [id number] Jun, CKD (chronic kidney disease), stage 3 (moderate) N18.3 and Anemia, unspecified type D64.9 [address] [place] [address] [id number] Jun, Type 2 diabetes mellitus with diabetic neuropathy E11.40 ; Decreased GFR R94.4 ; CKD (chronic kidney disease), stage 3 (moderate) N18.3 and Decreased hemoglobin R71.0 [place] [address] [place] [address] [id number] Jun, CKD (chronic kidney disease), stage 3 (moderate) N18.3 and Anemia, unspecified type D64.9 [place] [address] [place] [address] [id number] Jun, Type 2 diabetes mellitus with diabetic neuropathy E11.40 ; Decreased GFR R94.4 and CKD (chronic kidney disease), stage 3 (moderate) N18.3 [place] [address] [place] [address] [id number] Jun, Type 2 diabetes mellitus with diabetic neuropathy E11.40 and Essential hypertension I10 [place] [address] [place] [address] [id number] Jun, [address] [id number] Jun, [place] [address] [place] [address] [id number] Jun, Type 2 diabetes mellitus with diabetic neuropathy E11.40 ; S/P coronary artery stent placement Z95.5 ; Chronic obstructive pulmonary disease, unspecified COPD type J44.9 ; Essential hypertension I10 ; GERD without esophagitis K21.9 ; Peripheral vascular disease I73.9 ; Mixed hyperlipidemia E78.2 and Hospital discharge follow-up Z09 [place] [address] [place] [address] [id number] Jun, [place] [address] [place] [address] [id number] May, Depression F32.9 and Hyperlipidemia, unspecified hyperlipidemia E78.5 [facility] [id number] [place] [address] [phone] May, [place] [address] [place] [address] [id number] May, [place] [address] [place] [address] [id number] May, Essential hypertension I10 ; Chronic pain syndrome G89.4 ; Pain in left shoulder M25.512 ; High risk medication use Z79.899 ; Chronic obstructive pulmonary disease, unspecified COPD type J44.9 ; S/P coronary artery stent placement Z95.5 ; Personal history of carotid stenosis Z86.79 ; Hyperlipidemia, unspecified hyperlipidemia E78.5 ; Decreased GFR R94.4 and Type 2 diabetes mellitus with diabetic polyneuropathy E11.42 [place] [address] [place] [address] [id number] May, Hemoglobin decreased R71.0 and Decreased GFR R94.4 [place] [address] [place] [address] [id number] May, Hemoglobin decreased R71.0 and Decreased GFR R94.4 [place] [address] [place] [address] [id number] May, [place] [address] [place] [address] [id number] May, [place] [address] [place] [address] [id number] Apr, [place] [address] [place] [address] [id number] Apr, Type 2 diabetes mellitus with foot [...] unspecified hyperlipidemia E78.5 and Essential hypertension I10 [address]00565100[place] [id number] Apr, [address] [place] [address] [id number] Mar, [address] [place] [address] [id number] Mar, [facility] [id number] [place] [address] [phone]- [phone] Mar, [facility] [id number], [place] [id number] Feb, [facility] [id number] [place] [address] [id number] Feb, [facility] [id number] [place] [address] [id number] Feb, [facility] [id number] [place] [address] [id number] Jan, Type 2 diabetes mellitus with diabetic polyneuropathy E11.42 ; Hypercholesterolemia E78.0 ; Chronic pain syndrome G89.4 ; Pain in left shoulder M25.512 and High risk medication use Z79.899 [facility] [id number] [place] [address] [id number] Jan, [facility] [id number] [place] [address] [id number] Jan, [facility] [id number] [place] [address] [id number] December, [facility] [id number] [place] [address] [id number] December, [facility] [id number] [place] [address] [phone]- [phone] December, Diabetes type 2, uncontrolled E11.65 ; Type 2 diabetes mellitus with diabetic neuropathy E11.40 ; Peripheral vascular disease I73.9 ; 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 and 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 [facility] [id number], [place] [id number] Nov, [facility] [id number], [place] [id number] Nov, [facility] [id number] [place] [address] [id number] Nov, [facility] [address] [place] [address] [id number] Nov, Right hip pain M25.551 [facility] [id number] [place] [address] [phone]- [phone] Nov, [facility] [address]00565100[place], [place] [address]- [address] Nov, [facility] [address] [id number] [place] [address] [id number] Nov, Diabetes with neurological manifestations, type II or unspecified type, 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.60 [facility] [place] [id number] [place] [address] [id number] Nov, [facility] [place] [id number] [place] [address] [id number] Nov, [facility] [place] [id number] [place] [address] [id number] Oct, Diabetes type 2, uncontrolled E11.65 ; Type 2 diabetes mellitus with diabetic neuropathy, unspecified E11.40 and Low back pain M54.5 [facility] [place] [id number] [place] [address] [id number] Oct, [facility] [place] [id number] [place] [address] [id number] Oct, [facility] [place] [address] [id number], [place] [id number] Oct, [facility] [place] [id number] [place] [address] [id number] Sep, [facility] [place] [id number], [place] [id number] Sep, [facility] [address]00565100[place], [place] [address] Sep, [facility] [place] [id number], [place] [id number] Sep, [facility] [place] [address] [id number], [place] [id number] Sep, [facility] [place] [id number], [place] [id number] Aug, 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 [facility] [place] [address] [id number], [place] [id number] Aug, [facility] [place] [id number] [place] [address] [id number] Aug, Allergic rhinitis due to pollen J30.1 [facility] [place] [address] [facility] [address] [id number][place] [id number] Jul, [facility] [address] [id number][place] [id number] Jul, [facility] [address] [id number], [place] [id number] Jul, [facility] [id number] [place] [address] [id number] Jun, [address] [place] [address] [id number] Jun, Thumb tendonitis M77.8 and Ringing in ear, bilateral H93.13 [facility] [employer] [address] [id number], [place] [id number] Jun, [address] [place] [address] [id number] May, [place] [address] [id number] [place] [address] [phone] [phone] May, [place] [address] [address] May, Pre-op evaluation Z01.818 ; Encounter for immunization Z23 ; Type 2 diabetes mellitus with diabetic peripheral angiopathy without gangrene E11.51 ; Insulin long-term use Z79.4 ; Type 2 diabetes mellitus with foot ulcer E11.621 ; Peripheral vascular disease I73.9 ; Coronary artery disease involving [place] coronary artery of [place]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 ; S/P coronary artery stent placement Z95.5 ; Osteomyelitis of right foot, unspecified chronicity M86.9 and Chronic obstructive pulmonary disease, unspecified COPD type J44.9 [facility] [id number] [place] [address] 23711093- 2386 May, [facility] [id number] [place] [address] [id number] May, [id number] [place] [address] [id number] May, Diabetes type 2, uncontrolled E11.65 ; Encounter for immunization Z23 ; Osteopenia M85.80 and Allergic rhinitis due to pollen J30.1 [facility] [id number] [place] [address] [id number] May, Lumbago 724.2 [facility] [address] [id number] [id number] Apr, [facility] [id number] [place] [address] [id number] Apr, [facility] [id number] [place] [address] [id number] Apr, [facility] [address] [id number] Apr, [facility] [address] [address] Mar, [facility] [id number] [place] [address] [id number] Mar, [facility] [id number] [place] [address] [id number] Mar, [facility] [id number] [place] [address] [id number] Mar, [facility] [id number] [place] [address] [id number] Mar, [facility] [id number] [place] [address] 80411- 7866 Mar, [facility] [id number] [place] [address] [id number] Mar, [facility] [id number] [place] [address] [id number] Mar, Diabetes with neurological manifestations, type II or unspecified type, 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.60 and Severe obesity (BMI 35.0-35.9 with comorbidity) 278.01 [facility] [id number] [place] [address] [id number] Mar, [facility] [address] [address]- 2546 Mar, [facility] [address]005[place], [place] [address]- 25[address] Feb, [facility] [place] [id number], [place] [id number] Feb, [facility] [place] [address] [id number][place] [id number] Feb, [facility] [place] [id number] [place] [address] [id number] Feb, Diabetes with neurological manifestations, type II or unspecified type, 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.60 [facility] [place] [id number] [place] [address] [id number] Feb, [facility] [address]00565100[place], [place] [address]- 2546 Feb, [facility] [id number], [place] [id number] Feb, [facility] [place] [id number], [place] [id number] Feb, Follow up V67.9 ; Diabetes with neurological manifestations, type II or unspecified type, 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.60 and Congestive heart failure 428.0 [facility] [place] [id number], [place] [id number] Jan, [facility] [id number], [place] [id number] Jan, [facility] [place] [id number], [place] [id number] Jan, [facility] [place] [id number], [place] [id number] December, Otitis media with effusion 381.4 ; Left arm numbness 782.0 and Osteoporosis 733.00 [facility] [place] [id number], [place] [id number] December, [facility] [place] [address] [id number][place] [id number] Nov, [facility] [place] [id number] [place] [address] [id number] Nov, Serous otitis media 381.4 and Lumbago 724.2 [facility] [place] [facility] [address] [id number], [place] [address]- 3436 Nov, [facility] [place] [facility] [address]00565100[place], [place] [address]- 2546 Nov, [facility] [place] [id number], [place] [id number] Oct, [facility] [place] [facility] [address] [id number], [place] [address]- 2546 Oct, [facility] [id number], [place] [id number] Oct, [facility] [place] [facility] [address]00565100[place], [place] [address]- 9886 Oct, [facility] [id number], [place] [id number] Oct, [facility] [place] [facility] [address]00565100[place], [place] [address]- 5266 Oct, [facility] [place] [facility] [address]00565100[place], [place] [address]- 6026 Sep, [facility] [place] [facility] [address]00565100[place], [place] [address]- 0096 Sep, [facility] [address] [id number], [place] [id number] Sep, [facility] [place] [facility] [address]00565100[place], [place] [address]- 2546 Sep, [facility] [address] [id number], [place] [id number] Aug, [facility] [place] [facility] [address]00565100[place], [place] [address]- 2546 Aug, [facility] [address] [id number], [place] [id number] Aug, [facility] [place] [facility] [address]00565100[place], [place] [address]- 2546 Aug, [facility] [address] [id number] [place] [id number] Jul, [facility] [address] [facility] [id number], [place] [address]- 2546 Jul, [facility] [address] [id number] [place] [id number] Jul, [facility] [address] [facility] [id number][place] [address]- 2546 Jul, [facility] [address] [id number] [place] [id number] Jul, [facility] [address] [facility] [id number], [place] [address]- 8756 Jul, [facility] [address] [facility] [id number], [place] [id number] Jun, [facility] [address] [facility] [id number], [place] [address]- 7943 Jun, [facility] [address] [facility] [id number], [place] [id number] May, [facility] [address] [facility] [id number], [place] [address]- 8945 May, [facility] [address] [facility] [id number], [place] [id number] May, [facility] [address] [facility] [id number], [place] [address]- 0807 May, [facility] [address] [facility] [id number], [place] [id number] May, [facility] [place] [facility] [address] [facility] [id number][place] [address]- 3425 May, [facility] [address] [id number], [place] [id number] May, [facility] [address] [id number], [place] [id number] May, [facility] [place] [facility] [address] [facility] [id number], [place] [address]- 2995 May, [facility] [place] [facility] [address] [facility] [id number], [place] [address]- 1092 May, [facility] [address] [facility] [id number], [place] [id number] May, [facility] [place] [facility] [address] [facility] [id number], [place] [address]- 7073 May, [facility] [place] [facility] [address] [facility] [id number], [place] [address]- 0929 Apr, [facility] [address] [facility] [id number], [place] [id number] Apr, [facility] [place] [facility] [address] [facility] [id number][place] [address]- 7793 Apr, [facility] [address] [facility] [id number], [place] [id number] Apr, [facility] [address] [facility] [id number], [place] [id number] Apr, [facility] [place] [facility] [address] [facility] [id number], [place] [address]- 4057 Apr, [facility] [place] [facility] [address] [facility] [id number][place] [address]- 1847 Apr, [facility] [address] [facility] [id number], [place] [id number] Apr, [facility] [place] [facility] [address] [facility] [id number], [place] [address]- 5179 Apr, [facility] [address] [facility] [id number], [place] [id number] Apr, [facility] [place] [facility] [address] [facility] [id number], [place] [address]- 0550 Apr, [facility] [address] [facility] [id number], [place] 047328216 Apr, [facility] [place] [facility] [address] [facility] [id number], [place] [address]- 9450 Apr, [facility] [address] [facility] [id number], [place] [id number] Apr, [facility] [place] [facility] [address] [id number] [place] [address]- 4626 Apr, [facility] [address] [id number] [place] [id number] Apr, [facility] [place] [facility] [address] [facility] [id number][place] [address]- 4580 Apr, [facility] [address] [id number] [place] [id number] Apr, [facility] [place] [facility] [address] [id number], [place] [address]- 8389 Apr, [facility] [address] [id number] [place] [id number] Mar, [facility] [place] [facility] [address] [facility] [id number], [place] [address]- 7913 Mar, [facility] [address] [id number] [place] [id number] Mar, [facility] [address] [id number], [place] 063109497 Mar, [facility] [place] [facility] [address] [facility] [id number], [place] [address]- 1489 Mar, [facility] [place] [facility] [address] [facility] [id number], [place] [address]- 1959 Mar, [facility] [address] [id number], [place] [id number] Mar, [facility] [place] [facility] [address] [facility] [id number], [place] [address]- 0349 Mar, [facility] [address] [id number] [place] [id number] Mar, [facility] [place] [facility] [address] [facility] [id number][place] [address]- 2857 Mar, [facility] [address] [id number] [place] [id number] Mar, [facility] [place] [facility] [address] [facility] [id number], [place] [address]- 2546 Mar, [facility] [address] [id number] [place] [id number] Mar, [facility] [place] [facility] [address] [id number] [place] [address]- 6466 Mar, [facility] [address] [id number] [place] [id number] Mar, [facility] [place] [facility] [address] [facility] [id number] [place] [address]- 6026 Mar, [facility] [address] [id number] [place] [id number] Mar, [facility] [place] [facility] [address] [facility] [id number] [place] [address]- 4100 Mar, [facility] [address] [id number] [place] [id number] Mar, [facility] [place] [facility] [address] [facility] [id number] [place] [address]- 6460 Mar, [facility] [address] [id number] [place] [id number] Feb, [facility] [place] [facility] [address] [facility] [id number] [place] [address]- 4298 Feb, [facility] [address] [id number] [place] [id number] Feb, [facility] [place] [facility] [address] [facility] [id number] [place] [address]- 7358 Feb, [facility] [address] [id number] [place] [id number] Feb, [facility] [place] [facility] [address] [id number] [place] [address]- 5899 Feb, [facility] [address] [id number] [place] [id number] Feb, [facility] [place] [facility] [address] [facility] [id number] [place]- 2326 Feb, [facility] [address] [id number] [place] [id number] Feb, [facility] [place] [facility] [address] [id number] [place] [address]- 9276 Feb, [facility] [address] [id number] [place] [id number] Feb, [facility] [place] [facility] [address] [id number] [place] [address]- 2247 Feb, [facility] [address] [id number] [place] [id number] Feb, [facility] [place] [facility] [address] [id number] [place] [address]- 2178 Feb, [facility] [address] [id number] [place] [id number] Feb, [facility] [place] [facility] [address] [facility] [id number] [place] [address]- 9001 Feb, [facility] [address] [id number] [place] [id number] Feb, [facility] [place] [facility] [address] [id number] [place] [address]- 7449 Feb, [facility] [address] [id number] [place] [id number] Feb, [facility] [address] [id number] [place] [id number] Feb, [facility] [place] [facility] [address] [facility] [id number] [place] [address]- 3839 Feb, [facility] [place] [facility] [address] [facility] [id number] [place] [address]- 2613 Feb, [facility] [address] [id number] [place] [id number] Feb, [facility] [place] [facility] [address] [facility] [id number] [place] [address]- 6413 Feb, [facility] [address] [id number] [place] [id number] Feb, [facility] [place] [facility] [address] [id number], [place] [address]- 1375 Feb, [facility] [address] [id number] [place] [id number] Feb, [facility] [place] [facility] [address] [id number] [place] [address]- 4983 Feb, [facility] [address] [id number] [place] [id number] Jan, [facility] [place] [facility] [address] [id number] [place] [address]- 2110 Jan, [facility] [place] [facility] [address] [id number] [place] [address]- 2851 Jan, [facility] [place] [facility] [address] [id number] [place] [address]- 4199 Jan, [facility] [place] [facility] [address] [id number] [address]- 7328 Jan, [facility] [place] [facility] [address] [facility] [id number], [place] [address]- 0616 Jan, [facility] [address] [facility] [id number] [place] [id number] Jan, [facility] [place] [facility] [address] [facility] [id number], [place] [address]- 2253 Jan, [facility] [place] [facility] [address] [facility] [id number], [place] [address]- 9909 Jan, [facility] [place] [facility] [address] [id number], [place] [address]- 1239 Jan, [facility] [address] [id number] [place] [id number] Jan, [facility] [address] [id number] [place] [id number] Jan, [facility] [place] [facility] [address] [id number] [place] [address]- 7257 Jan, [facility] [place] [facility] [address] [facility] [id number], [place] [address]- 6941 Jan, [facility] [address] [id number] [place] [id number] Jan, [facility] [address] [id number] [place] [id number] Jan, [facility] [place] [facility] [address] [id number] [place] [address] 2546 Jan, [facility] [place] [facility] [address] [facility] [id number] [place] [address]- 4296 Jan, [facility] [place] [facility] [address] [facility] [id number] [place] [address] 2546 Jan, [facility] [address] [id number] [place] [id number] December, [facility] [place] [facility] [address] [facility] [id number] [place] [address]- 7436 December, [facility] [place] [facility] [address] [facility] [id number] [place] [address]- 1298 December, [facility] [address] [facility] [id number], [place] 785872824 December, [facility] [place] [facility] [address] [facility] [id number], [place] [address]- 4066 December, [facility] [address] [facility] [id number], [place] 321742592 December, [facility] [place] [facility] [address] [facility] [id number], [place] [address] 2546 December, [facility] [address] [facility] [id number], [place] [id number] December, [facility] [place] [facility] [address] [facility] [id number] [place] [address]- 2546 December, [facility] [address] [facility] [id number] [place] [id number] Nov, [facility] [place] [facility] [address] [facility] [id number] [place] [address]- 2546 Nov, [facility] [address] [facility] [id number], [place] 967438003 Nov, [facility] [place] [facility] [address] [id number] [place] [address]- 8543 Nov, [facility] [place] [facility] [address] [id number] [place] [address]- 6676 Nov, [facility] [place] [facility] [address] [facility] [id number] [place] [address]- 1699 Nov, [facility] [place] [facility] [address] [id number] [place] [address]- 8515 Oct, [facility] [address] [facility] [id number], [place] [id number] Oct, [facility] [place] [facility] [address] [id number] [place] [address]- 3940 Oct, [facility] [address] [facility] [id number], [place] [id number] Oct, [facility] [place] [facility] [address] [id number], [place] [address]- 8122 Oct, [facility] [address] [facility] [id number], [place] 567294922 Sep, [facility] [place] [facility] [address] [facility] [id number], [place] [address]- 0586 Sep, [facility] [address] [facility] [id number], [place] [id number] Aug, [facility] [place] [facility] [address] [facility] [id number], [place] [address]- 6670 Aug, [facility] [address] [id number], [place] [id number] Aug, [facility] [place] [facility] [address] [id number], [place] [address]- 3162 Aug, [facility] [place] [facility] [address] [facility] [id number], [place] [address]- 9026 Aug, [facility] [address] [id number], [place] [id number] Aug, [facility] [place] [facility] [address] [facility] [id number], [place] [address]- 4677 Aug, [facility] [address] [id number], [place] [address]- 8537 Aug, [facility] [address] [facility] [id number], [place] [id number] Aug, [facility] [address] [id number], [place] [address]- 7591 Aug, [facility] [address] [facility] [id number], [place] 719337913 Jul, [facility] [address] [facility] [id number], [place] [address]- 4542 Jul, [facility] [address] [id number], [place] [id number] Jul, [facility] [address]00565100[place], [place] [address]- 5546 Jul, [facility] [address] [id number], [place] [id number] Jul, [facility] [address] [id number], [place] [address] Jul, [facility] [address] [id number][place] [id number] Jul, [facility] [address] [id number], [place] [address] Jul, [facility] [address] [id number][place] [id number] Jun, [facility] [address] [facility] [id number], [place] [address] Jun, [facility] [address] [facility] [id number][place] [id number] Jun, [facility] [address] [id number], [place] [address] Jun, [facility] [address] [id number], [place] [address] Jun, [facility] [address] [facility] [id number], [place] [address] Jun, [facility] [address] [id number] [place] [id number] Apr, [facility] [address] [id number] [place] [id number] Mar, [facility] [address] [id number] [place] [id number] Mar, [facility] [address] [id number] [place] [id number] Feb, [facility] [address] [id number] [place] [id number] Feb, [facility] [address] [id number] [place] [id number] Feb, [facility] [address] [id number] [place] [id number] December, [facility] [address] [id number] [place] [id number] December, [facility] [address] [facility] [id number], [place] [address] December, [facility] [address] [id number] [place] [id number] December, [facility] [address] [id number] [place] [id number] December, [facility] [address] [id number] [place] [id number] Nov, [facility] [address] [id number] [place] [id number] Nov, [facility] [address] [id number] [place] [id number] Nov, [facility] [address] [id number] [place] [id number] Oct, [facility] [address] [id number] [place] [id number] Sep, [facility] [address] [id number] [place] [id number] Aug, [facility] [address] [id number], [place] [address] Aug, [facility] [address] [id number] [place] [id number] Aug, [facility] [address] [id number] [place] [id number] Jul, [facility] [address] [facility] [id number], [place] [address] Jul, [facility] [address] [id number][place] [id number] Jul, [facility] [address] [facility] [id number], [place] [address] Jul, [facility] [address] [id number], [place] [id number] Jun, [facility] [address] [facility] [id number], [place] [address] Jun, [facility] [address] [id number][place] [id number] May, [facility] [address] [facility] [id number], [place] [address] May, [facility] [address] [id number][place] [id number] May, [facility] [address] [facility] [id number], [place] [address] May, [facility] [address] [id number][place] [id number] Apr, [facility] [address] [id number][place] [id number] Apr, [facility] [address] [id number] [place] [id number] Mar, [facility] [address] [id number] [place] [id number] Mar, [facility] [address] [id number][place] [id number] Feb, [facility] [address] [id number] [place] [id number] Feb, [facility] [address] [id number] [place] [id number] Jan, [facility] [address] [id number] [place] [id number] Jan, [facility] [address] [id number] [place] [id number] Jan, [facility] [address] [id number] [place] [id number] Jan, [facility] [address] [id number] [place] [id number] December, [facility] [address] [id number] [place] [id number] December, [facility] [address] [facility] [id number], [place] [address] Nov, [facility] [address] [id number] [place] [id number] Nov, [facility] [address] [id number] [place] [id number] Nov, [facility] [address] [id number] [place] [id number] Nov, [facility] [address] [id number] [place] [id number] Nov, [facility] [address] [facility] [id number], [place] [address] Oct, [facility] [address] [facility] [id number], [place] [address] Oct, [facility] [address] [id number] [place] [id number] Oct, [facility] [address] [id number] [place] [id number] Oct, [facility] [address] [id number] [place] [id number] Oct, [facility] [address] [id number] [place] [id number] Oct, [facility] [address] [id number] [place], [place] [id number] Oct, [facility] [place] [address] [id number] [place] [id number] Oct, [facility] [place] [address] [id number] [place] [id number] Oct, [facility] [address] [facility] [id number] [place] [address] Oct, [facility] [place] [address] [id number] [place] [id number] Sep, [facility] [address] [id number] [place] [id number] Sep, [facility] [address] [id number] [place] [id number] Aug, [facility] [place] [address] [id number] [place] [id number] Aug, [facility] [id number] [address] Jul, [facility] [place] [facility] [id number] [address] Jul, [facility] [address] [id number] [address] Jul, [facility] [address] [id number], [place] [address] Jul, [facility] [id number], [place] [address] Jul, [facility] [place] [facility] [address] [id number], [place] [address] Jul, [facility] [place] [facility] [address] [facility] [id number], [place] [address] Jul, [facility] [place] [facility] [address] [id number], [place] [address] Jul, [facility] [id number] [address] Jul, [facility] [place] [facility] [address] [facility] [id number] [place] [id number] Jul, [facility] [address] [facility] [id number], [place] [address] Jul, [facility] [address] [facility] [id number][place] [address] Jul, [facility] [address] [facility] [id number][place] [address] Jul, [facility] [address] [facility] [id number] [address] Jul, IMMUNIZATIONS No Known Immunizations SOCIAL HISTORY Never Assessed REASON FOR VISIT refill on tramadol PLAN OF CARE VITAL SIGNS MEDICATIONS Medication Instructions Dosage Frequency Start Date End Date Duration Status Tramadol HCl 50 mg Orally 3 times a day 1 tablet 8h 28 days Active RESULTS No Results PROCEDURES No [...] History Left eye retinal eye repair ([facility]) 06/2014 Surgical History amputation, toe-right third toe ([facility]) 2013 Surgical History Right eye retinal eye repair ([facility]) 09/2014 Surgical History heart cath [...]
--- OUTSIDE RECORDS SUMMARY | 2018-06-20 10:58 | XMS REPORT ---
Author Author SATINDER GOOD Organization [facility] Address [address] [place] [address] Care Team Providers Care Buttoner Name Role Phone SATINDER GOOD Unavailable PROBLEMS Type Condition ICD9-CM Code INI11-CW Code Onset Dates Condition Status SNOMED Code Problem Peripheral vascular disease I73.9 Active 466181286 Problem Coronary artery disease involving [place] coronary artery of [place]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 Active 5821030632218 Problem S/P coronary artery stent placement Z95.5 Active 501211962 Problem Chronic obstructive pulmonary disease, unspecified COPD type J44.9 Active 30959447 Problem Type 2 diabetes mellitus with diabetic neuropathy E11.40 Active 30864777 Problem Bilateral low back pain without sciatica M54.5 Active 026483562 Problem 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 Active 353519955 Problem 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 Active 006733479 Problem Hypercholesterolemia E78.0 Active 20831257 Problem Comprehensive diabetic foot examination, type 2 DM, encounter for E11.9 Active 84983232 Problem Type 2 diabetes mellitus with diabetic polyneuropathy E11.42 Active 490657380 Problem Obesity (BMI 30.0-34.9) E66.9 Active 431601782379370 Problem Personal history of carotid stenosis Z86.79 Active 475552797 Problem Aphasia R47.01 Active 19665443 Problem Chronic diarrhea K52.9 Active 620329186 Problem Uses walker Z99.89 Active 371419386 Problem Chronic fatigue R53.82 Active 33070737 Problem Mixed stress and urge urinary incontinence N39.46 Active 952762050 Problem Chronic pain syndrome G89.4 Active 229464449 Problem High risk medication use Z79.899 Active 323887923 Problem Osteomyelitis of right foot, unspecified chronicity M86.9 Active 55138753 Problem Fatigue, unspecified type R53.83 Active 49378485 Problem Diabetes type 2, uncontrolled E11.65 Active 120067871 Problem Full incontinence of feces R15.9 Active 979288426464562 Problem Other chronic pain G89.29 Active 83621368 Problem Functional diarrhea K59.1 Active 22563098 Problem Fecal urgency R15.2 Active 82272322 Problem Depression F32.9 Active 85747601 Problem CKD (chronic kidney disease), stage 3 (moderate) N18.3 Active 381327457 Problem Hyperlipidemia, unspecified hyperlipidemia E78.5 Active 45955921 Problem CKD (chronic kidney disease) stage 3, GFR 30-59 ml/min N18.3 Active 384881501 Problem Type 2 diabetes mellitus with diabetic peripheral angiopathy without gangrene E11.51 Active 147663580 Problem Pain in left shoulder M25.512 Active 64480265 Problem Insulin long-term use Z79.4 Active 370739217 Problem Essential hypertension I10 Active 67114415 Problem Type 2 diabetes mellitus with diabetic retinopathy, macular edema presence unspecified, with unspecified retinopathy severity E11.319 Active 86110600 Problem Chronic kidney disease, unspecified N18.9 Active 631226501 Problem Type 2 diabetes mellitus with foot ulcer E11.621 Active 906880818 Problem Frequent falls R29.6 Active 082492464 Problem GERD without esophagitis K21.9 Active 741663482 Problem Mixed hyperlipidemia E78.2 Active 440757437 ALLERGIES No Information ENCOUNTERS Encounter Location Date Diagnosis [facility] [address] [id number] Apr, [facility] [address] [id number] Mar, [facility] [id number] [place] [address] [id number] Feb, Other chronic pain G89.29 [facility] [id number] [place] [address] [id number] Feb, [facility] [address] [id number] Feb, [facility] [address] [id number] Feb, Diabetes type 2, uncontrolled E11.65 [facility] [address] [id number] Feb, Other chronic pain G89.29 [facility] [address] [id number] [id number] Jan, [facility] [id number], [place] [id number] Jan, [facility] [id number], [place] [id number] Jan, [facility] [id number], [place] [id number] Jan, Other chronic pain G89.29 [facility] [id number], [place] [id number] December, Mixed stress and urge urinary incontinence N39.46 [facility] [id number] [place] [address] [id number] December, Chronic fatigue R53.82 [facility] [address] [place] [address] [id number] December, Other chronic pain G89.29 [facility] [address] [id number] December, Diabetes type 2, uncontrolled E11.65 ; [...] type J44.9 and Other chronic pain G89.29 [facility] [address] [facility] [id number] [phone] December, [facility] [address] [id number][place] [id number] December, Medicare annual wellness visit, subsequent Z00.00 ; Type 2 diabetes mellitus with diabetic polyneuropathy E11.42 ; Chronic obstructive pulmonary disease, unspecified COPD type J44.9 ; Depression F32.9 ; Peripheral vascular disease I73.9 ; Coronary artery disease involving [place] coronary artery of [place]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 ; Hypercholesterolemia E78.0 ; GERD without esophagitis K21.9 and Chronic kidney disease, unspecified N18.9 [id number] [place] [address] [id number] December, Mixed stress and urge urinary incontinence N39.46 ; Full incontinence of feces R15.9 ; Fecal urgency R15.2 ; Functional diarrhea K59.1 and Type 2 diabetes mellitus with diabetic neuropathy E11.40 [id number] [place] [address] [id number] Nov, Other chronic pain G89.[address] [id number] Oct, [address] [id number] Oct, [address] [id number] Oct, Other chronic pain G89.29 [id number] [place] [address] [id number] Sep, Other chronic pain G89.[address] [id number] Aug, CKD (chronic kidney disease), stage 3 (moderate) N18.3 ; Anemia, unspecified type D64.9 and Dilated pore of Ly L70.[address] [id number] Aug, Other chronic pain G89.29 ; Pain in left shoulder M25.512 ; High risk medication use Z79.899 ; Uses walker Z99.89 ; Diabetes type 2, uncontrolled E11.65 and Depression F32.9 [id number] [place] [address] [id number] Aug, Chronic diarrhea K52.[address] [id number] Aug, Chronic diarrhea K52.9 ; Type 2 diabetes mellitus with diabetic neuropathy E11.40 ; Diabetes type 2, uncontrolled E11.65 ; Insulin long-term use Z79.4 ; Chronic obstructive pulmonary disease, unspecified COPD type J44.9 ; Chronic pain syndrome G89.4 ; Pain in left shoulder M25.512 ; Uses walker Z99.89 ; S/P coronary artery stent placement Z95.5 ; Mixed hyperlipidemia E78.2 and Essential hypertension I10 [address] [place] [address] [id number] Aug, [address] [id number] [place] [address] [id number] Jul, Diabetes type 2, uncontrolled E11.65 [id number] [place] [address] [id number] Jul, Diabetes type 2, uncontrolled E11.65 ; Type 2 diabetes mellitus with diabetic neuropathy E11.40 ; Insulin long-term use Z79.4 and Chronic obstructive pulmonary disease, unspecified COPD type J44.9 [id number] [place] [address] [id number] Jun, [id number] [place] [address] [id number] Jun, Essential hypertension I10 [address] [place] [address] [id number] Jun, Essential hypertension I10 [id number] [place] [address] [id number] Jun, Type 2 diabetes mellitus with diabetic neuropathy E11.40 ; Type 2 diabetes mellitus with diabetic polyneuropathy E11.42 ; S/P coronary artery stent placement Z95.5 ; Obesity (BMI 30.0-34.9) E66.9 ; Mixed hyperlipidemia E78.2 ; Frequent falls R29.6 ; Chronic obstructive pulmonary disease, unspecified COPD type J44.9 ; Essential hypertension I10 ; Insulin long-term use Z79.4 and High risk medication use Z79.899 [address] [place] [address] [id number] May, Diarrhea, unspecified type R19.7 ; Type 2 diabetes mellitus with diabetic neuropathy E11.40 ; Chronic obstructive pulmonary disease, unspecified COPD type J44.9 ; S/P coronary artery stent placement Z95.5 ; High risk medication use Z79.899 ; Essential hypertension I10 ; Encounter for administration of vaccine Z23 and Encounter for immunization Z23 [facility] [id number] [id number] May, Chronic obstructive pulmonary disease, unspecified COPD type J44.9 [facility] [address]00565100[place], [place] [id number] May, Type 2 diabetes mellitus with diabetic polyneuropathy E11.42 ; Encounter for immunization Z23 ; Needs flu shot Z23 ; Comprehensive diabetic foot examination, type 2 DM, encounter for E11.9 and Obesity (BMI 30.0-34.9) E66.9 [address] [place] [address] [id number] May, [address] [place] [address] [id number] Apr, [id number] [place] [address] [id number] Apr, Essential hypertension I10 and Aphasia R47.[address] [place] [address] [id number] Apr, [id number] [place] [address] [id number] Apr, Type 2 diabetes mellitus with diabetic neuropathy E11.40 ; Frequent falls R29.6 ; Essential hypertension I10 ; S/P coronary artery stent placement Z95.5 ; High risk medication use Z79.899 ; Hyperlipidemia, unspecified hyperlipidemia E78.5 ; CKD (chronic kidney disease), stage 3 (moderate) N18.3 ; Pain in left shoulder M25.512 and Chronic obstructive pulmonary disease, unspecified COPD type J44.[address] [id number], [place] [id number] Mar, [address] [id number] [place] [address] [id number] Mar, Type 2 diabetes mellitus with diabetic polyneuropathy E11.42 ; Leg wound, left, initial encounter S81.802A ; Hx of shoulder surgery Z98.890 ; Acute pain of left shoulder M25.512 and Fall, initial encounter W19.XXXA [facility] [id number] [place] [address] [id number] Feb, Follow-up exam Z09 ; Hx of shoulder surgery Z98.890 ; Acute pain of left shoulder M25.512 ; Essential hypertension I10 and Leg wound, left, initial encounter S81.802A [facility] [id number] [place] [address] [id number] Feb, [facility] [address] [id number] Feb, [facility] [id number] [place] [address] [id number] Feb, Chronic obstructive pulmonary disease, unspecified COPD type J44.9 [facility] [id number] [place] [address] [id number] Feb, [facility] [id number] [place] [address] [id number] Jan, Generalized weakness R53.1 ; Exertional shortness of breath R06.02 and Fungal rash of trunk B36.9 [facility] [id number] [place] [address] [id number] Jan, [facility] [id number] [place] [address] [id number] Jan, [facility] [id number] [place] [address] [id number] Jan, [facility] [id number] [place] [address] [id number] Jan, [facility] [id number] [place] [address] [id number] December, High risk medication use Z79.899 [facility] [id number] [place] [address] [id number] December, Type 2 diabetes mellitus with diabetic neuropathy E11.40 [facility] [id number] [place] [address] [id number] December, High risk medication use Z79.899 [facility] [id number] [place] [address] [id number] Apr, 2017 Diabetes type 2, uncontrolled E11.[address] [id number][place] [id number] Nov, Medicare annual wellness visit, initial Z00.00 ; Bilateral low back pain without sciatica M54.5 ; Pain in left shoulder M25.512 ; Chronic pain syndrome G89.4 ; Type 2 diabetes mellitus with diabetic polyneuropathy E11.42 ; High risk medication use Z79.899 and Encounter for immunization Z23 [id number] [place] [address] [id number] Nov, Type 2 diabetes mellitus with diabetic neuropathy E11.40 ; Coronary artery disease involving [place] coronary artery of [place]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 and CKD (chronic kidney disease), stage 3 (moderate) N18.[address] [place] [address] [id number] Oct, Type 2 diabetes mellitus with diabetic polyneuropathy E11.42 ; Chronic pain syndrome G89.4 ; Chronic obstructive pulmonary disease, unspecified COPD type J44.9 ; Chronic kidney disease, unspecified N18.9 and Rash R21 [address] [id number] [id number] Oct, Type 2 diabetes mellitus with diabetic neuropathy E11.40 [address] [place] [address] [id number] Oct, Rash R21 and Impetigo L01.[address] [place] [address] [id number] Oct, Chronic pain syndrome G89.4 [address] [place] [address] [id number] Oct, [id number] [place] [address] [id number] Sep, Sebaceous cyst L72.3 [address] [place] [address] [id number] Sep, Sebaceous cyst L72.3 [address] [place] [address] [id number] Sep, Chronic pain syndrome G89.4 ; Pain in left shoulder M25.512 and Effusion of olecranon bursa, left M25.422 [facility] [address] [id number], [place] [address] Aug, [facility] [id number] [place] [address] [id number] Aug, [facility] [id number] [place] [address] [id number] Aug, Mixed hyperlipidemia E78.2 and Chronic kidney disease, unspecified N18.9 [facility] [id number] [place] [address] [id number] Jul, Type 2 diabetes mellitus with diabetic neuropathy E11.40 ; Essential hypertension I10 and S/P coronary artery stent placement Z95.5 [facility] [id number] [place] [address] [id number] Jul, 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 [id number] [place] [address] [id number] Jul, Diabetes type 2, uncontrolled E11.65 ; Essential hypertension I10 and 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 [facility] [id number] [place] [address] [id number] Jul, [facility] [id number] [place] [address] [id number] Jul, [facility] [id number] [place] [address] [id number] Jul, [facility] [id number] [place] [address] [id number] Jul, Chronic obstructive pulmonary disease, unspecified COPD type J44.9 [facility] [address] [place] [address] [id number] Jun, CKD (chronic kidney disease), stage 3 (moderate) N18.3 and Anemia, unspecified type D64.9 [facility] [id number] [place] [address] [id number] Jun, Type 2 diabetes mellitus with diabetic neuropathy E11.40 ; Decreased GFR R94.4 ; CKD (chronic kidney disease), stage 3 (moderate) N18.3 and Decreased hemoglobin R71.[address] [place] [address] [id number] Jun, CKD (chronic kidney disease), stage 3 (moderate) N18.3 and Anemia, unspecified type D64.9 [address] [place] [address] [id number] Jun, Type 2 diabetes mellitus with diabetic neuropathy E11.40 ; Decreased GFR R94.4 and CKD (chronic kidney disease), stage 3 (moderate) N18.3 [id number] [place] [address] [id number] Jun, Type 2 diabetes mellitus with diabetic neuropathy E11.40 and Essential hypertension I10 [id number] [place] [address] [id number] Jun, [id number] [place] [address] [id number] Jun, [id number] [place] [address] [id number] Jun, Type 2 diabetes mellitus with diabetic neuropathy E11.40 ; S/P coronary artery stent placement Z95.5 ; Chronic obstructive pulmonary disease, unspecified COPD type J44.9 ; Essential hypertension I10 ; GERD without esophagitis K21.9 ; Peripheral vascular disease I73.9 ; Mixed hyperlipidemia E78.2 and Hospital discharge follow-up Z09 [address] [place] [address] [id number] Jun, [id number] [place] [address] [id number] May, Depression F32.9 and Hyperlipidemia, unspecified hyperlipidemia E78.5 [facility] [address]00565100[place], [place] [address] May, [id number] [place] [address] [id number] May, [id number] [place] [address] [id number] May, Essential hypertension I10 ; Chronic pain syndrome G89.4 ; Pain in left shoulder M25.512 ; High risk medication use Z79.899 ; Chronic obstructive pulmonary disease, unspecified COPD type J44.9 ; S/P coronary artery stent placement Z95.5 ; Personal history of carotid stenosis Z86.79 ; Hyperlipidemia, unspecified hyperlipidemia E78.5 ; Decreased GFR R94.4 and Type 2 diabetes mellitus with diabetic polyneuropathy E11.42 [facility] [id number] [place] [address] [id number] May, Hemoglobin decreased R71.0 and Decreased GFR R94.[address] [id number] May, Hemoglobin decreased R71.0 and Decreased GFR R94.[address] [id number] May, [address] [id number] May, [address] [id number] Apr, [address] [id number] Apr, Type 2 diabetes mellitus with foot [...] unspecified hyperlipidemia E78.5 and Essential hypertension I10 [id number] [place] [address] [id number] Apr, [address] [id number] [place] [address] [id number] Mar, [address] [id number] [place] [address] [id number] Mar, [facility] [id number] [place] [address] [phone] Mar, [address] [id number] Feb, [facility] [id number], [place] [id number] Feb, [facility] [id number] [place] [address] [id number] Feb, [facility] [id number] [place] [address] [id number] Jan, Type 2 diabetes mellitus with diabetic polyneuropathy E11.42 ; Hypercholesterolemia E78.0 ; Chronic pain syndrome G89.4 ; Pain in left shoulder M25.512 and High risk medication use Z79.899 [facility] [id number] [place] [address] [id number] Jan, [facility] [id number] [place] [address] [id number] Jan, [facility] [id number] [place] [address] [id number] December, [facility] [id number] [place] [address] [id number] December, [facility] [id number] [place] [address] [phone] December, Diabetes type 2, uncontrolled E11.65 ; Type 2 diabetes mellitus with diabetic neuropathy E11.40 ; Peripheral vascular disease I73.9 ; 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 and 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 [facility] [id number] [place] [address] [id number] Nov, [facility] [id number] [place] [address] [id number] Nov, [facility] [id number] [place] [address] [id number] Nov, [facility] [id number] [place] [address] [id number] Nov, Right hip pain M25.551 [facility] [id number] [place] [address] [phone] Nov, [facility] [address] [id number] Nov, [facility] [address] [id number][place] [id number] Nov, Diabetes with neurological manifestations, type II or unspecified type, 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.60 [facility] [address] [id number], [place] [id number] Nov, [facility] [address] [id number], [place] [id number] Nov, [facility] [address] [id number][place] [id number] Oct, Diabetes type 2, uncontrolled E11.65 ; Type 2 diabetes mellitus with diabetic neuropathy, unspecified E11.40 and Low back pain M54.5 [facility] [address] [id number], [place] [id number] Oct, [facility] [address] [id number], [place] [id number] Oct, [facility] [address] [id number], [place] [id number] Oct, [facility] [address] [id number], [place] [id number] Sep, [facility] [id number], [place] [id number] Sep, [facility] [address] [facility] [id number], [place] [address] Sep, [facility] [address] [id number], [place] [id number] Sep, [facility] [address] [id number], [place] [id number] Sep, [facility] [address] [facility] [id number][place] [id number] Aug, 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 [facility] [address] [id number], [place] [id number] Aug, [facility] [address] [id number][place] [id number] Aug, Allergic rhinitis due to pollen J30.1 [facility] [place] [facility] [facility] [id number] [id number] Jul, [facility] [id number], [place] [id number] Jul, [facility] [id number], [place] [id number] Jul, [facility] [address] [id number], [place] [id number] Jun, [facility] [id number] [place] [address] [id number] Jun, Thumb tendonitis M77.8 and Ringing in ear, bilateral H93.[address] [id number], [place] [id number] Jun, [facility] [id number] [place] [address] [id number] May, [place] [id number] [place] [phone]- [phone] May, [place] [id number] [place] [address] [id number] May, Pre-op evaluation Z01.818 ; Encounter for immunization Z23 ; Type 2 diabetes mellitus with diabetic peripheral angiopathy without gangrene E11.51 ; Insulin long-term use Z79.4 ; Type 2 diabetes mellitus with foot ulcer E11.621 ; Peripheral vascular disease I73.9 ; Coronary artery disease involving [place] coronary artery of [place]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 ; S/P coronary artery stent placement Z95.5 ; Osteomyelitis of right foot, unspecified chronicity M86.9 and Chronic obstructive pulmonary disease, unspecified COPD type J44.9 [facility] [id number] [place] [address]- [address]40 May, [id number] [place] [address] [id number] May, [facility] [id number] [place] [address] [id number] May, Diabetes type 2, uncontrolled E11.65 ; Encounter for immunization Z23 ; Osteopenia M85.80 and Allergic rhinitis due to pollen J30.1 [facility] [id number], [place] [id number] May, Lumbago 724.2 [facility] [id number] [place] [address] [id number] Apr, [facility] [address] [id number] [id number] Apr, [facility] [id number] [place] [address] [id number] Apr, [facility] [id number] [place] [address] [id number] Apr, [facility] [address] [id number]- 9140 Mar, [facility] [id number] [place] [address] [id number] Mar, [facility] [id number] [place] [address] [id number] Mar, [facility] [id number] [place] [address] [id number] Mar, [facility] [id number] [place] [address] [id number] Mar, [facility] [id number] [place] [address] 82682- 7066 Mar, [facility] [id number] [place] [address] [id number] Mar, [facility] [id number] [place] [address] [id number] Mar, Diabetes with neurological manifestations, type II or unspecified type, 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.60 and Severe obesity (BMI 35.0-35.9 with comorbidity) 278.01 [facility] [id number] [place] [address] [id number] Mar, [facility] [id number] [place] [address] 55200- 2766 Mar, [facility] [address] [address]- 2546 Feb, [facility] [address] [id number] [id number] Feb, [facility] [id number], [place] [id number] Feb, [facility] [id number], [place] [id number] Feb, Diabetes with neurological manifestations, type II or unspecified type, 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.60 [facility] [id number], [place] [id number] Feb, [facility] [address] [place] [address] 88992- 2546 Feb, [facility] [id number], [place] [id number] Feb, [facility] [id number], [place] [id number] Feb, Follow up V67.9 ; Diabetes with neurological manifestations, type II or unspecified type, 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.60 and Congestive heart failure 428.0 [facility] [id number], [place] [id number] Jan, [facility] [id number], [place] [id number] Jan, [facility] [id number], [place] [id number] Jan, [facility] [id number], [place] [id number] December, Otitis media with effusion 381.4 ; Left arm numbness 782.0 and Osteoporosis 733.00 [facility] [id number], [place] [id number] December, [facility] [id number], [place] [id number] Nov, [facility] [id number], [place] [id number] Nov, Serous otitis media 381.4 and Lumbago 724.2 [facility] [address] [id number], [place] [address] 1986 14 Nov, 2014 [facility] [place] [facility] [address] [id number], [place] [address]- 4456 Nov, [facility] [address] [facility] [id number], [place] [id number] Oct, [facility] [place] [facility] [address] [facility] [id number], [place] [address]- 7946 Oct, [facility] [address] [facility] [id number], [place] [id number] Oct, [facility] [place] [facility] [address] [facility] [id number], [place] [address]- 3318 Oct, [facility] [address] [facility] [id number], [place] [id number] Oct, [facility] [place] [facility] [address]00565100[place], [place] [address]- 4114 Oct, [facility] [place] [facility] [address] [id number], [place] [address]- 8682 Sep, [facility] [place] [facility] [address] [id number], [place] [address]- 2459 Sep, [facility] [address] [id number], [place] [id number] Sep, [facility] [place] [facility] [address] [id number], [place] [address]- 0516 Sep, [facility] [address] [facility] [id number], [place] [id number] Aug, [facility] [place] [facility] [address] [facility] [id number], [place] [address]- 6988 Aug, [facility] [address] [facility] [id number], [place] [id number] Aug, [facility] [place] [facility] [address] [facility] [id number], [place] [address]- 2546 Aug, [facility] [address] [facility] [id number], [place] [id number] Jul, [facility] [place] [facility] [address] [facility] [id number], [place] [address]- 7116 Jul, [facility] [address] [facility] [id number] [place] [id number] Jul, [facility] [place] [facility] [address] [facility] [id number], [place] [address] 2546 Jul, [facility] [address] [facility] [id number], [place] [id number] Jul, [facility] [place] [facility] [address] [facility] [id number], [place] [address]- 8414 Jul, [facility] [address] [facility] [id number] [place] [address] [id number] Jun, [facility] [place] [facility] [address] [facility] [id number], [place] [address]- 4932 Jun, [facility] [address] [id number], [place] [id number] May, [facility] [place] [facility] [address] [facility] [id number], [place] [address]- 8968 May, [facility] [address] [facility] [id number], [place] [id number] May, [facility] [place] [facility] [address] [facility] [id number], [place] [address]- 3910 May, [facility] [address] [facility] [id number], [place] [id number] May, [facility] [place] [facility] [address] [facility] [id number], [place] [address]- 0733 May, [facility] [address] [facility] [id number], [place] [id number] May, [facility] [address] [facility] [id number], [place] [id number] May, [facility] [place] [facility] [address] [facility] [id number], [place] [address]- 1366 May, [facility] [place] [facility] [address] [facility] [id number], [place] [address]- 0036 May, [facility] [address] [facility] [id number], [place] [id number] May, [facility] [place] [facility] [address] [facility] [id number], [place] [address]- 8187 May, [facility] [place] [facility] [address] [facility] [id number][place] 076[place]- 7283 Apr, [facility] [address] [facility] [id number] [place] [id number] Apr, [facility] [place] [facility] [address] [facility] [id number], [place] [address]- 6148 Apr, [facility] [address] [id number] [place] [id number] Apr, [facility] [address] [facility] [id number], [place] [id number] Apr, [facility] [place] [facility] [address]00565100[place], [place] [address]- 2247 Apr, [facility] [place] [facility] [address]00565100[place], [place] [address]- 9768 Apr, [facility] [address] [facility] [id number], [place] [id number] Apr, [facility] [place] [facility] [address]00565100[place], [place] [address]- 1520 Apr, [facility] [address] [facility] [id number], [place] [id number] Apr, [facility] [place] [facility] [address] [facility] [id number], [place] [address]- 1975 Apr, [facility] [address] [facility] [id number], [place] [id number] Apr, [facility] [place] [facility] [address] [facility] [id number], [place] [address]- 9040 Apr, [facility] [address] [facility] [id number], [place] [id number] Apr, [facility] [place] [facility] [address]00565100[place], [place] 80365527- 5535 Apr, [facility] [address] [id number] [place] [id number] Apr, [facility] [place] [facility] [address] [facility] [id number] [place] [address]- 8631 Apr, [facility] [address] [id number] [place] [id number] Apr, [facility] [place] [facility] [address] [facility] [id number] [place] [address]- 3801 Apr, [facility] [address] [id number] [place] [id number] Mar, [facility] [place] [facility] [address] [facility] [id number], [place] [address]- 8136 Mar, [facility] [address] [id number] [place] [id number] Mar, [facility] [address] [facility] [id number], [place] [id number] Mar, [facility] [place] [facility] [address] [facility] [id number], [place] [address]- 6155 Mar, [facility] [place] [facility] [address] [facility] [id number], [place] [address]- 7587 Mar, [facility] [address] [facility] [id number], [place] [id number] Mar, [facility] [place] [facility] [address] [facility] [id number], [place] [address]- 0514 Mar, [facility] [address] [id number], [place] [id number] Mar, [facility] [place] [facility] [address] [facility] [id number], [place] [address]- 2948 Mar, [facility] [address] [id number] [place] [id number] Mar, [facility] [place] [facility] [address] [facility] [id number], [place] [address]- 1564 Mar, [facility] [address] [id number] [place] [id number] Mar, [facility] [place] [facility] [address] [id number] [place] [address]- 3976 Mar, [facility] [address] [id number] [place] [id number] Mar, [facility] [place] [facility] [address] [id number] [place]- 2008 Mar, [facility] [address] [id number] [place] [id number] Mar, [facility] [place] [facility] [address] [id number] [place] [address]- 8971 Mar, [facility] [address] [id number] [place] [id number] Mar, [facility] [place] [facility] [address] [facility] [id number] [place] [address]- 6462 Mar, [facility] [address] [id number] [place] [id number] Feb, [facility] [place] [facility] [address] [facility] [id number] [place] [address]- 0795 Feb, [facility] [address] [id number] [place] [id number] Feb, [facility] [place] [facility] [address] [facility] [id number] [place] [address]- 1008 Feb, [facility] [address] [id number] [place] [id number] Feb, [facility] [place] [facility] [address] [facility] [id number] [place] [address]- 7919 Feb, [facility] [address] [id number] [place] [id number] Feb, [facility] [place] [facility] [address] [facility] [id number] [place] [address]- 3708 Feb, [facility] [address] [id number] [place] [id number] Feb, [facility] [place] [facility] [address] [facility] [id number] [place] [address]- 4785 Feb, [facility] [address] [id number] [place] [id number] Feb, [facility] [place] [facility] [address] [id number] [place] [address]- 6521 Feb, [facility] [address] [id number] [place] [id number] Feb, [facility] [place] [facility] [address] [facility] [id number] [place] [address]- 0525 Feb, [facility] [address] [id number] [place] [id number] Feb, [facility] [place] [facility] [address] [id number] [place] [address]- 2239 Feb, [facility] [address] [id number] [place] [id number] Feb, [facility] [place] [facility] [address] [facility] [id number] [place] [address]- 3752 Feb, [facility] [address] [id number] [place] [id number] Feb, [facility] [address] [id number] [place] [id number] Feb, [facility] [place] [facility] [address] [facility] [id number] [place] [address]- 0906 Feb, [facility] [place] [facility] [address] [facility] [id number] [place] [address]- 5830 Feb, [facility] [address] [id number] [place] [id number] Feb, [facility] [place] [facility] [address] [id number] [place] [address]- 7525 Feb, [facility] [address] [id number] [place] [id number] Feb, [facility] [place] [facility] [address] [id number] [place] [address]- 9624 Feb, [facility] [address] [id number] [place] [id number] Feb, [facility] [place] [facility] [address] [id number] [place] [address]- 0593 Feb, [facility] [address] [id number] [place] [id number] Jan, [facility] [place] [facility] [address] [id number] [place] [address]- 5083 Jan, [facility] [place] [facility] [address] [facility] [id number] [place] [address]- 1343 Jan, [facility] [place] [facility] [address] [id number] [place] [address]- 8660 Jan, [facility] [place] [facility] [address] [facility] [id number] [place] [address]- 4139 Jan, [facility] [place] [facility] [address] [facility] [id number] [place] [address]- 2262 Jan, [facility] [address] [id number], [place] [id number] Jan, [facility] [place] [facility] [address] [facility] [id number] [place] [address]- 1803 Jan, [facility] [place] [facility] [address] [facility] [id number], [place] [address]- 2858 Jan, [facility] [place] [facility] [address] [facility] [id number], [place] [address]- 3607 Jan, [facility] [address] [id number], [place] [id number] Jan, [facility] [address] [id number], [place] [id number] Jan, [facility] [place] [facility] [address] [id number], [place] [address]- 0878 Jan, [facility] [place] [facility] [address] [id number], [place] [address]- 3723 Jan, [facility] [address] [id number] [place] [id number] Jan, [facility] [address] [id number], [place] [id number] Jan, [facility] [place] [facility] [address] [id number] [place] [address]- 1686 Jan, [facility] [place] [facility] [address] [facility] [id number], [place] [address]- 1256 Jan, [facility] [place] [facility] [address] [facility] [id number] [place] [address]- 9401 Jan, [facility] [address] [facility] [id number], [place] [id number] December, [facility] [place] [facility] [address] [facility] [id number] [place] [address]- 9266 December, [facility] [place] [facility] [address] [facility] [id number] [place] [address]- 8133 December, [facility] [address] [facility] [id number], [place] [id number] December, [facility] [place] [facility] [address] [facility] [id number], [place] [address]- 1043 December, [facility] [address] [facility] [id number], [place] [id number] December, [facility] [place] [facility] [address] [facility] [id number], [place] [address]- 5575 December, [facility] [address] [facility] [id number], [place] [id number] December, [facility] [place] [facility] [address] [facility] [id number], [place] [address]- 2006 December, [facility] [address] [facility] [id number] [place] [id number] Nov, [facility] [place] [facility] [address] [facility] [id number] [place] [address]- 8962 Nov, [facility] [address] [facility] [id number], [place] 854883087 Nov, [facility] [place] [facility] [address] [facility] [id number] [place]- 0529 Nov, [facility] [address] [facility] [id number] [place] [address]- 7522 Nov, [facility] [place] [facility] [address] [facility] [id number] [place] [address]- 1544 Nov, [facility] [address] [facility] [id number] [place] [address]- 6647 Oct, [facility] [address] [facility] [id number] [place] [id number] Oct, [facility] [address] [id number] [place] [address]- 9935 Oct, [facility] [address] [facility] [id number] [place] [address] [id number] Oct, [facility] [address] [facility] [id number], [place] [address]- 3331 Oct, [facility] [id number], [place] [id number] Sep, [facility] [address] [facility] [id number], [place] [address]- 2181 Sep, [facility] [address] [id number], [place] [id number] Aug, [facility] [address]00565100[place], [place] [address]- 7851 Aug, [facility] [address] [facility] [id number], [place] [id number] Aug, [facility] [place] [facility] [address] [facility] [id number], [place] [address]- 4327 Aug, [facility] [place] [facility] [address] [facility] [id number], [place] [address]- 9273 Aug, [facility] [address] [facility] [id number], [place] [id number] Aug, [facility] [place] [facility] [address] [facility] [id number] [place] [address]- 2102 Aug, [facility] [place] [facility] [address] [facility] [id number], [place] [address]- 4942 Aug, [facility] [address] [id number] [place] [id number] Aug, [facility] [place] [facility] [address] [facility] [id number], [place] [address]- 2194 Aug, [facility] [address] [facility] [id number] [place] [id number] Jul, [facility] [place] [facility] [address] [facility] [id number], [place] [address]- 9080 Jul, [facility] [address] [facility] [id number] [place] [id number] Jul, [facility] [place] [facility] [address] [facility] [id number], [place] [address]- 5068 Jul, [facility] [address] [id number] [place] [id number] Jul, [facility] [place] [facility] [address]00565100[place], [place] [address]- 3169 Jul, [facility] [place] [address] [facility] [id number] [place] [id number] Jul, [facility] [address], [place] [address] Jul, [facility] [place] [address] [id number] [id number] Jun, [facility] [address] [id number], [place] [address] Jun, [facility] [place] [address] [facility] [id number] [id number] Jun, [facility] [address] [id number], [place] [address] Jun, [facility] [address] [facility] [id number], [place] [address] Jun, [facility] [address] [id number], [place] [address] Jun, [facility] [place] [address] [id number] [place] [id number] Apr, [facility] [place] [address] [id number] [place] [id number] Mar, [facility] [place] [address] [id number] [place] [id number] Mar, [facility] [place] [address] [id number] [place] [id number] Feb, [facility] [place] [address] [id number] [place] [id number] Feb, [facility] [place] [address] [id number] [place] [id number] Feb, [facility] [place] [address] [id number] [place] [id number] December, [facility] [place] [address] [id number] [place] [id number] December, [facility] [address], [place] [address] December, [facility] [place] [address] [id number] [place] [id number] December, [facility] [place] [address] [id number] [place] [id number] December, [facility] [place] [address] [id number] [place] [id number] Nov, [facility] [place] [address] [id number] [place] [id number] Nov, [facility] [place] [address] [id number] [place] [id number] Nov, [facility] [place] [address] [id number] [place] [id number] Oct, [facility] [place] [address] [id number] [place] [id number] Sep, [facility] [place] [address] [id number] [place] [id number] Aug, [facility] [address] [id number], [place] [address] Aug, [facility] [place] [address] [id number] [place] [id number] Aug, [facility] [place] [address] [id number] [place] [id number] Jul, [facility] [address] [facility] [id number], [place] [address] Jul, [facility] [place] [address] [id number] [place] [id number] Jul, [facility] [address] [facility] [id number] [address] Jul, [facility] [place] [address] [id number] [place] [id number] Jun, [facility] [address] [facility] [id number][place] [address] Jun, [facility] [place] [address] [id number][place] [id number] May, [facility] [address] [address] May, [facility] [place] [address] [id number], [place] [id number] May, [facility] [address] [facility] [id number], [place] [address]16[address] May, [facility] [place] [address] [id number][place] [id number] Apr, [facility] [place] [address] [id number] [place] [id number] Apr, [facility] [place] [address] [id number] [place] [id number] Mar, [facility] [place] [address] [id number] [place] [id number] Mar, [facility] [place] [address] [id number] [place] [id number] Feb, [facility] [place] [address] [id number] [place] [id number] Feb, [facility] [address] [id number] [place] [id number] Jan, [facility] [address] [id number] [place] [id number] Jan, [facility] [address] [id number] [place] [address] Jan, [facility] [address] [id number] [place] [id number] Jan, [facility] [address] [id number] [place] [id number] December, [facility] [place] [address] [id number] [place] [id number] December, [facility] [address] [id number], [place] [address] Nov, [facility] [place] [address] [id number] [place] [id number] Nov, [facility] [address] [id number] [place] [id number] Nov, [facility] [address] [id number] [place] [id number] Nov, [facility] [address] [id number] [place] [id number] Nov, [facility] [address] [facility] [id number], [place] [address] Oct, [facility] [address] [facility] [id number], [place] [address] Oct, [facility] [place] [address] [id number] [place] [id number] Oct, [facility] [place] [address] [id number] [place] [id number] Oct, [facility] [address] [id number] [place] [id number] Oct, [facility] [address] [id number] [place] [id number] Oct, [facility] [address] [id number] [place] [id number] Oct, [facility] [address] [id number] [place] [id number] Oct, [facility] [address] [id number] [place] [id number] Oct, [facility] [address] [facility] [id number], [place] [address] Oct, [facility] [address] [id number] [place] [id number] Sep, [facility] [address] [id number] [place] [id number] Sep, [facility] [address] [id number] [place] [id number] Aug, [facility] [address] [id number] [place] [id number] Aug, [facility] [address], [place] [address] Jul, [facility] [id number] [place] [address] Jul, [facility] [address]65[address], [place] [address] Jul, [facility] [id number] [place] [address] Jul, [facility] [id number], [place] [address] Jul, [facility] [id number], [place] [address] Jul, [facility] [address], [place] [address] Jul, [facility] [address], [place] [address] Jul, [facility] [id number], [place] [address] Jul, [facility] [address], [place] [address] Jul, [facility] [address] [facility] [id number] [place] [address] 19 Jul, 2011 [facility] [address] [facility] [id number], [place] [address] 16 Jul, 2011 [facility] [address] [facility] [id number], [place] [address] Jul, [facility] [address] [facility] [id number], [place] [address] 08 Jul, 2011 IMMUNIZATIONS No Known Immunizations SOCIAL HISTORY Never Assessed REASON FOR VISIT Rx clarification PLAN OF CARE VITAL SIGNS MEDICATIONS Medication Instructions Dosage Frequency Start Date End Date Duration Status Lasix 20 mg Orally Once a day 1/2 tablet 24h 0 days Active RESULTS No Results PROCEDURES No Known procedures INSTRUCTIONS MEDICATIONS ADMINISTERED No Known Medications MEDICAL (GENERAL) HISTORY Type Description Date Medical History peripheral vascular disease s/p angioplasty w/ stent R leg Medical History hypertension Medical 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 Secondary to ATN from [facility] 4.3 Medical History HX of dry [...] Surgical [facility] Surgical History amputation, [...]
--- OUTSIDE RECORDS SUMMARY | 2018-06-20 10:59 | XMS REPORT ---
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 Active [id number] Problem S/P coronary artery stent placement Z95.5 Active 542199368 Problem Chronic obstructive pulmonary disease, unspecified COPD type J44.9 Active 28565667 Problem Type 2 diabetes mellitus with diabetic neuropathy E11.40 Active 73013927 Problem Bilateral low back pain without sciatica M54.5 Active 200056362 Problem 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 Active 345713984 Problem 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 Active 223576322 Problem Hypercholesterolemia E78.0 Active 71191225 Problem Comprehensive diabetic foot examination, type 2 DM, encounter for E11.9 Active 24691187 Problem Type 2 diabetes mellitus with diabetic polyneuropathy E11.42 Active 852150965 Problem Obesity (BMI 30.0-34.9) E66.9 Active 756470176328661 Problem Personal history of carotid stenosis Z86.79 Active 362801651 Problem Aphasia R47.01 Active 84147280 Problem Chronic diarrhea K52.9 Active 768555928 Problem Uses walker Z99.89 Active 615231031 Problem Chronic fatigue R53.82 Active 02614819 Problem Mixed stress and urge urinary incontinence N39.46 Active 296330773 Problem Chronic pain syndrome G89.4 Active 427679570 Problem High risk medication use Z79.899 Active 142280049 Problem Osteomyelitis of right foot, unspecified chronicity M86.9 Active 29325909 Problem Fatigue, unspecified type R53.83 Active 35136446 Problem Diabetes type 2, uncontrolled E11.65 Active 153288168 Problem Full incontinence of feces R15.9 Active 301468863608872 Problem Other chronic pain G89.29 Active 47522012 Problem Functional diarrhea K59.1 Active 22822160 Problem Fecal urgency R15.2 Active 12238215 Problem Depression F32.9 Active 66009520 Problem CKD (chronic kidney disease), stage 3 (moderate) N18.3 Active 946191950 Problem Hyperlipidemia, unspecified hyperlipidemia E78.5 Active 07154168 Problem CKD (chronic kidney disease) stage 3, GFR 30-59 ml/min N18.3 Active 215076089 Problem Type 2 diabetes mellitus with diabetic peripheral angiopathy without gangrene E11.51 Active 470563634 Problem Pain in left shoulder M25.512 Active 87923609 Problem Insulin long-term use Z79.4 Active 652862293 Problem Essential hypertension I10 Active 16161958 Problem Type 2 diabetes mellitus with diabetic retinopathy, macular edema presence unspecified, with unspecified retinopathy severity E11.319 Active 06424202 Problem Chronic kidney disease, unspecified N18.9 Active 769157968 Problem Type 2 diabetes mellitus with foot ulcer E11.621 Active 480213356 Problem Frequent falls R29.6 Active 596764525 Problem GERD without esophagitis K21.9 Active 517968485 Problem Mixed hyperlipidemia E78.2 Active 316111740 ALLERGIES No Information ENCOUNTERS Encounter Location Date Diagnosis [facility] [address] [id number] Apr, [facility] [address] [id number] Mar, [facility] [id number] [place] [address] [id number] Feb, Other chronic pain G89.29 [facility] [id number] [place] [address] [id number] Feb, [facility] [address] [id number] Feb, [facility] [address] [id number] Feb, Diabetes type 2, uncontrolled E11.65 [facility] [address] [id number] Feb, Other chronic pain G89.29 [facility] [address] [id number] [id number] Jan, [facility] [id number], [place] [id number] Jan, [facility] [id number], [place] [id number] Jan, [facility] [id number], [place] [id number] Jan, Other chronic pain G89.29 [facility] [id number], [place] [id number] December, Mixed stress and urge urinary incontinence N39.46 [facility] [id number] [place] [address] [id number] December, Chronic fatigue R53.82 [facility] [address] [place] [address] [id number] December, Other chronic pain G89.29 [facility] [address]00565[address], [place] [id number] December, Diabetes type 2, uncontrolled E11.65 ; [...] type J44.9 and Other chronic pain G89.29 [facility] [address] [facility] [id number] [address] December, [facility] [address] [id number], [place] [id number] December, Medicare annual wellness visit, subsequent Z00.00 ; Type 2 diabetes mellitus with diabetic polyneuropathy E11.42 ; Chronic obstructive pulmonary disease, unspecified COPD type J44.9 ; Depression F32.9 ; Peripheral vascular disease I73.9 ; Coronary artery disease involving mohegan coronary artery of mohegan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 ; Hypercholesterolemia E78.0 ; GERD without esophagitis K21.9 and Chronic kidney disease, unspecified N18.9 [place] [id number] [place] [address] [id number] December, Mixed stress and urge urinary incontinence N39.46 ; Full incontinence of feces R15.9 ; Fecal urgency R15.2 ; Functional diarrhea K59.1 and Type 2 diabetes mellitus with diabetic neuropathy E11.40 [place] [id number] [place] [address] [id number] Nov, Other chronic pain G89.[address] [id number] Oct, [address] [id number] Oct, [address] [id number] Oct, Other chronic pain G89.29 [place] [id number] [place] [address] [id number] Sep, Other chronic pain G89.[address] [id number] Aug, CKD (chronic kidney disease), stage 3 (moderate) N18.3 ; Anemia, unspecified type D64.9 and Dilated pore of Ly L70.[address] [id number] Aug, Other chronic pain G89.29 ; Pain in left shoulder M25.512 ; High risk medication use Z79.899 ; Uses walker Z99.89 ; Diabetes type 2, uncontrolled E11.65 and Depression F32.9 [place] [id number] [place] [address] [id number] Aug, Chronic diarrhea K52.[address] [id number] Aug, Chronic diarrhea K52.9 ; Type 2 diabetes mellitus with diabetic neuropathy E11.40 ; Diabetes type 2, uncontrolled E11.65 ; Insulin long-term use Z79.4 ; Chronic obstructive pulmonary disease, unspecified COPD type J44.9 ; Chronic pain syndrome G89.4 ; Pain in left shoulder M25.512 ; Uses walker Z99.89 ; S/P coronary artery stent placement Z95.5 ; Mixed hyperlipidemia E78.2 and Essential hypertension I10 [address] [place] [address] [id number] Aug, [place] [id number] [place] [address] [id number] Jul, Diabetes type 2, uncontrolled E11.65 [place] [id number] [place] [address] [id number] Jul, Diabetes type 2, uncontrolled E11.65 ; Type 2 diabetes mellitus with diabetic neuropathy E11.40 ; Insulin long-term use Z79.4 and Chronic obstructive pulmonary disease, unspecified COPD type J44.9 [address] [id number] [place] [address] [id number] Jun, [place] [id number] [place] [address] [id number] Jun, Essential hypertension I10 [address] [place] [address] [id number] Jun, Essential hypertension I10 [place] [id number] [place] [address] [id number] Jun, Type 2 diabetes mellitus with diabetic neuropathy E11.40 ; Type 2 diabetes mellitus with diabetic polyneuropathy E11.42 ; S/P coronary artery stent placement Z95.5 ; Obesity (BMI 30.0-34.9) E66.9 ; Mixed hyperlipidemia E78.2 ; Frequent falls R29.6 ; Chronic obstructive pulmonary disease, unspecified COPD type J44.9 ; Essential hypertension I10 ; Insulin long-term use Z79.4 and High risk medication use Z79.899 [address] [place] [address] [id number] May, Diarrhea, unspecified type R19.7 ; Type 2 diabetes mellitus with diabetic neuropathy E11.40 ; Chronic obstructive pulmonary disease, unspecified COPD type J44.9 ; S/P coronary artery stent placement Z95.5 ; High risk medication use Z79.899 ; Essential hypertension I10 ; Encounter for administration of vaccine Z23 and Encounter for immunization Z23 [facility] [id number] [place] [id number] May, Chronic obstructive pulmonary disease, unspecified COPD type J44.9 [facility] [address]00565100[place], [place] [id number] May, Type 2 diabetes mellitus with diabetic polyneuropathy E11.42 ; Encounter for immunization Z23 ; Needs flu shot Z23 ; Comprehensive diabetic foot examination, type 2 DM, encounter for E11.9 and Obesity (BMI 30.0-34.9) E66.9 [address] [place] [address] [id number] May, [address] [place] [address] [id number] Apr, [place] [address] [place] [address] [id number] Apr, Essential hypertension I10 and Aphasia R47.[address] [place] [address] [id number] Apr, [place] [id number] [place] [address] [id number] Apr, Type 2 diabetes mellitus with diabetic neuropathy E11.40 ; Frequent falls R29.6 ; Essential hypertension I10 ; S/P coronary artery stent placement Z95.5 ; High risk medication use Z79.899 ; Hyperlipidemia, unspecified hyperlipidemia E78.5 ; CKD (chronic kidney disease), stage 3 (moderate) N18.3 ; Pain in left shoulder M25.512 and Chronic obstructive pulmonary disease, unspecified COPD type J44.[address] [id number], [place] [id number] Mar, [place] [id number] [place] [address] [id number] Mar, Type 2 diabetes mellitus with diabetic polyneuropathy E11.42 ; Leg wound, left, initial encounter S81.802A ; Hx of shoulder surgery Z98.890 ; Acute pain of left shoulder M25.512 and Fall, initial encounter W19.XXXA [facility] [id number] [place] [address] [id number] Feb, Follow-up exam Z09 ; Hx of shoulder surgery Z98.890 ; Acute pain of left shoulder M25.512 ; Essential hypertension I10 and Leg wound, left, initial encounter S81.802A [facility] [id number] [place] [address] [id number] Feb, [facility] [address] [id number] Feb, [facility] [id number] [place] [address] [id number] Feb, Chronic obstructive pulmonary disease, unspecified COPD type J44.9 [facility] [id number] [place] [address] [id number] Feb, [facility] [id number] [place] [address] [id number] Jan, Generalized weakness R53.1 ; Exertional shortness of breath R06.02 and Fungal rash of trunk B36.9 [facility] [id number] [place] [address] [id number] Jan, [facility] [id number] [place] [address] [id number] Jan, [facility] [id number] [place] [address] [id number] Jan, [facility] [id number] [place] [address] [id number] Jan, [facility] [id number] [place] [address] [id number] December, High risk medication use Z79.899 [facility] [id number] [place] [address] [id number] December, Type 2 diabetes mellitus with diabetic neuropathy E11.40 [facility] [id number] [place] [address] [id number] December, High risk medication use Z79.899 [facility] [id number] [place] [address] [id number] 28 Apr, 2017 Diabetes type 2, uncontrolled E11.[address] [id number], [place] [id number] Nov, Medicare annual wellness visit, initial Z00.00 ; Bilateral low back pain without sciatica M54.5 ; Pain in left shoulder M25.512 ; Chronic pain syndrome G89.4 ; Type 2 diabetes mellitus with diabetic polyneuropathy E11.42 ; High risk medication use Z79.899 and Encounter for immunization Z23 [place] [id number] [place] [address] [id number] Nov, Type 2 diabetes mellitus with diabetic neuropathy E11.40 ; Coronary artery disease involving mohegan coronary artery of mohegan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 and CKD (chronic kidney disease), stage 3 (moderate) N18.[address] [place] [address] [id number] Oct, Type 2 diabetes mellitus with diabetic polyneuropathy E11.42 ; Chronic pain syndrome G89.4 ; Chronic obstructive pulmonary disease, unspecified COPD type J44.9 ; Chronic kidney disease, unspecified N18.9 and Rash R21 [address] [id number] [place] [id number] Oct, Type 2 diabetes mellitus with diabetic neuropathy E11.40 [address] [place] [address] [id number] Oct, Rash R21 and Impetigo L01.[address] [place] [address] [id number] Oct, Chronic pain syndrome G89.4 [address] [place] [address] [id number] Oct, [id number] [place] [address] [id number] Sep, Sebaceous cyst L72.3 [address] [place] [address] [id number] Sep, Sebaceous cyst L72.3 [address] [place] [address] [id number] Sep, Chronic pain syndrome G89.4 ; Pain in left shoulder M25.512 and Effusion of olecranon bursa, left M25.422 [facility] [address] [id number] [address] Aug, [facility] [id number] [place] [address] [id number] Aug, [facility] [id number] [place] [address] [id number] Aug, Mixed hyperlipidemia E78.2 and Chronic kidney disease, unspecified N18.9 [facility] [id number] [place] [address] [id number] Jul, Type 2 diabetes mellitus with diabetic neuropathy E11.40 ; Essential hypertension I10 and S/P coronary artery stent placement Z95.5 [facility] [id number] [place] [address] [id number] Jul, 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 [place] [id number] [place] [address] [id number] Jul, Diabetes type 2, uncontrolled E11.65 ; Essential hypertension I10 and 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 [facility] [id number] [place] [address] [id number] Jul, [facility] [id number] [place] [address] [id number] Jul, [facility] [id number] [place] [address] [id number] Jul, [facility] [id number] [place] [address] [id number] Jul, Chronic obstructive pulmonary disease, unspecified COPD type J44.9 [facility] [address] [place] [address] [id number] Jun, CKD (chronic kidney disease), stage 3 (moderate) N18.3 and Anemia, unspecified type D64.9 [facility] [id number] [place] [address] [id number] Jun, Type 2 diabetes mellitus with diabetic neuropathy E11.40 ; Decreased GFR R94.4 ; CKD (chronic kidney disease), stage 3 (moderate) N18.3 and Decreased hemoglobin R71.0 [address] [place] [address] [id number] Jun, CKD (chronic kidney disease), stage 3 (moderate) N18.3 and Anemia, unspecified type D64.9 [address] [place] [address] [id number] Jun, Type 2 diabetes mellitus with diabetic neuropathy E11.40 ; Decreased GFR R94.4 and CKD (chronic kidney disease), stage 3 (moderate) N18.3 [place] [id number] [place] [address] [id number] Jun, Type 2 diabetes mellitus with diabetic neuropathy E11.40 and Essential hypertension I10 [place] [id number] [place] [address] [id number] Jun, [place] [id number] [place] [address] [id number] Jun, [place] [id number] [place] [address] [id number] Jun, Type 2 diabetes mellitus with diabetic neuropathy E11.40 ; S/P coronary artery stent placement Z95.5 ; Chronic obstructive pulmonary disease, unspecified COPD type J44.9 ; Essential hypertension I10 ; GERD without esophagitis K21.9 ; Peripheral vascular disease I73.9 ; Mixed hyperlipidemia E78.2 and Hospital discharge follow-up Z09 [address] [place] [address] [id number] Jun, [place] [id number] [place] [address] [id number] May, Depression F32.9 and Hyperlipidemia, unspecified hyperlipidemia E78.5 [facility] [address]005[address]100[place], [place] [address] May, [place] [id number] [place] [address] [id number] May, [place] [id number] [place] [address] [id number] May, Essential hypertension I10 ; Chronic pain syndrome G89.4 ; Pain in left shoulder M25.512 ; High risk medication use Z79.899 ; Chronic obstructive pulmonary disease, unspecified COPD type J44.9 ; S/P coronary artery stent placement Z95.5 ; Personal history of carotid stenosis Z86.79 ; Hyperlipidemia, unspecified hyperlipidemia E78.5 ; Decreased GFR R94.4 and Type 2 diabetes mellitus with diabetic polyneuropathy E11.42 [facility] [id number] [place] [address] [id number] May, Hemoglobin decreased R71.0 and Decreased GFR R94.[address] [id number] May, Hemoglobin decreased R71.0 and Decreased GFR R94.[address] [id number] May, [address] [id number] May, [address] [id number] Apr, [address] [id number] Apr, Type 2 diabetes mellitus with foot [...] unspecified hyperlipidemia E78.5 and Essential hypertension I10 [place] [id number] [place] [address] [id number] Apr, [place] [id number] [place] [address] [id number] Mar, [place] [id number] [place] [address] [id number] Mar, [facility] [id number] [place] [address] [id number] Mar, [address] [id number] Feb, [facility] [id number], [place] [id number] Feb, [facility] [id number] [place] [address] [id number] Feb, [facility] [id number] [place] [address] [id number] Jan, Type 2 diabetes mellitus with diabetic polyneuropathy E11.42 ; Hypercholesterolemia E78.0 ; Chronic pain syndrome G89.4 ; Pain in left shoulder M25.512 and High risk medication use Z79.899 [facility] [id number] [place] [address] [id number] Jan, [facility] [id number] [place] [address] [id number] Jan, [facility] [id number] [place] [address] [id number] December, [facility] [id number] [place] [address] [id number] December, [facility] [id number] [place] [address] [id number] December, Diabetes type 2, uncontrolled E11.65 ; Type 2 diabetes mellitus with diabetic neuropathy E11.40 ; Peripheral vascular disease I73.9 ; 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 and 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 [facility] [id number] [place] [address] [id number] Nov, [facility] [id number] [place] [address] [id number] Nov, [facility] [id number] [place] [address] [id number] Nov, [facility] [id number] [place] [address] [id number] Nov, Right hip pain M25.551 [facility] [id number] [place] [address] [id number] [phone] Nov, [facility] [address] [id number] [phone] Nov, [facility] [address] [id number], [place] [id number] Nov, Diabetes with neurological manifestations, type II or unspecified type, 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.60 [facility] [address] [id number], [place] [id number] Nov, [facility] [address] [id number], [place] [id number] Nov, [facility] [address] [id number], [place] [id number] Oct, Diabetes type 2, uncontrolled E11.65 ; Type 2 diabetes mellitus with diabetic neuropathy, unspecified E11.40 and Low back pain M54.5 [facility] [address] [id number], [place] [id number] Oct, [facility] [address] [id number], [place] [id number] Oct, [facility] [address] [id number], [place] [id number] Oct, [facility] [address] [id number], [place] [id number] Sep, [facility] [id number], [place] [id number] Sep, [facility] [address] [facility] [id number] [address] Sep, [facility] [address] [id number], [place] [id number] Sep, [facility] [address] [id number], [place] [id number] Sep, [facility] [address] [facility] [id number], [place] [id number] Aug, 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 [facility] [address] [id number], [place] [id number] Aug, [facility] [address] [id number], [place] [id number] Aug, Allergic rhinitis due to pollen J30.1 [facility] [place] [place] [address] [facility] [id number] [place] [id number] Jul, [facility] [id number], [place] [id number] Jul, [facility] [id number], [place] [id number] Jul, [facility] [address] [id number], [place] [id number] Jun, [facility] [id number] [place] [address] [id number] Jun, Thumb tendonitis M77.8 and Ringing in ear, bilateral H93.[address] [id number] [place] [id number] Jun, [facility] [id number] [place] [address] [id number] May, [place] [id number] [place] [phone] May, [place] [id number] [place] [address] [id number] [phone] May, Pre-op evaluation Z01.818 ; Encounter for immunization Z23 ; Type 2 diabetes mellitus with diabetic peripheral angiopathy without gangrene E11.51 ; Insulin long-term use Z79.4 ; Type 2 diabetes mellitus with foot ulcer E11.621 ; Peripheral vascular disease I73.9 ; Coronary artery disease involving mohegan coronary artery of mohegan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 ; S/P coronary artery stent placement Z95.5 ; Osteomyelitis of right foot, unspecified chronicity M86.9 and Chronic obstructive pulmonary disease, unspecified COPD type J44.9 [facility] [id number] [place] [address]- 5[address] May, [address] [place] [address] [id number] May, [facility] [address] [place] [address] [id number] May, Diabetes type 2, uncontrolled E11.65 ; Encounter for immunization Z23 ; Osteopenia M85.80 and Allergic rhinitis due to pollen J30.1 [facility] [id number][place] [address] May, Lumbago 724.2 [facility] [id number] [place] [address] [id number] Apr, [facility] [address] [id number] [id number] Apr, [facility] [id number] [place] [address] [id number] Apr, [facility] [id number] [place] [address] [id number] Apr, [facility] [address] [id number]- 8508 Mar, [facility] [id number] [place] [address] [id number] Mar, [facility] [id number] [place] [address] [id number] Mar, [facility] [id number] [place] [address] [id number] Mar, [facility] [id number] [place] [address] [id number] Mar, [facility] [id number] [place] [address] 71144- 7245 Mar, [facility] [id number] [place] [address] [id number] Mar, [facility] [id number] [place] [address] [id number] Mar, Diabetes with neurological manifestations, type II or unspecified type, 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.60 and Severe obesity (BMI 35.0-35.9 with comorbidity) 278.01 [facility] [id number] [place] [address] [id number] Mar, [facility] [id number] [place] [address] 73317- 2988 Mar, [facility] [address] [address]- 2546 Feb, [facility] [address] [id number][place] [id number] Feb, [facility] [id number], [place] [id number] Feb, [facility] [id number], [place] [id number] Feb, Diabetes with neurological manifestations, type II or unspecified type, 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.60 [facility] [id number], [place] [id number] Feb, [facility] [address] [place] [address] 61882- 2546 Feb, [facility] [id number], [place] [id number] Feb, [facility] [id number], [place] [id number] Feb, Follow up V67.9 ; Diabetes with neurological manifestations, type II or unspecified type, 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.60 and Congestive heart failure 428.0 [facility] [id number], [place] [id number] Jan, [facility] [id number], [place] [id number] Jan, [facility] [id number], [place] [id number] Jan, [facility] [id number], [place] [id number] December, Otitis media with effusion 381.4 ; Left arm numbness 782.0 and Osteoporosis 733.00 [facility] [id number], [place] [id number] December, [facility] [id number], [place] [id number] Nov, [facility] [id number], [place] [id number] Nov, Serous otitis media 381.4 and Lumbago 724.2 [facility] [address] [id number] [address]- 1536 14 Nov, 2014 [facility] [place] [facility] [address] [id number][place] [address]- 9056 Nov, [facility] [address] [facility] [id number], [place] [id number] Oct, [facility] [place] [facility] [address] [facility] [id number] [address]- 0396 Oct, [facility] [address] [facility] [id number], [place] [id number] Oct, [facility] [place] [facility] [address] [facility] [id number][place] [address]- 8328 Oct, [facility] [address] [facility] [id number], [place] [id number] Oct, [facility] [place] [facility] [address]00565100[place], [place] [address]- 3918 Oct, [facility] [place] [facility] [address] [id number] [address]- 5102 Sep, [facility] [place] [facility] [address] [id number] [address]- 5084 Sep, [facility] [address] [id number], [place] [id number] Sep, [facility] [place] [facility] [address] [id number] [address]- 9036 Sep, [facility] [address] [facility] [id number], [place] [id number] Aug, [facility] [place] [facility] [address] [facility] [id number][place] [address]- 3162 Aug, [facility] [address] [facility] [id number], [place] [id number] Aug, [facility] [place] [facility] [address] [facility] [id number][place] [address]- 2546 Aug, [facility] [address] [facility] [id number], [place] [id number] Jul, [facility] [place] [facility] [address] [facility] [id number] [address]- 9846 Jul, [facility] [address] [facility] [id number] [place] [id number] Jul, [facility] [place] [facility] [address] [facility] [id number], [place] [address] 2546 Jul, [facility] [address] [facility] [id number], [place] [id number] Jul, [facility] [place] [facility] [address] [facility] [id number], [place] [address]- 6048 Jul, [facility] [address] [facility] [id number] [place] [address] [id number] Jun, [facility] [place] [facility] [address] [facility] [id number], [place] [address]- 9053 Jun, [facility] [address] [id number], [place] 095624065 May, [facility] [place] [facility] [address] [facility] [id number], [place] [address]- 9994 May, [facility] [address] [facility] [id number], [place] [id number] May, [facility] [place] [facility] [address] [facility] [id number], [place] [address]- 9770 May, [facility] [address] [facility] [id number], [place] 564952338 May, [facility] [place] [facility] [address] [facility] [id number], [place] [address]- 9941 May, [facility] [address] [facility] [id number], [place] [id number] May, [facility] [address] [facility] [id number], [place] [id number] May, [facility] [place] [facility] [address] [facility] [id number] [address]- 9980 May, [facility] [place] [facility] [address] [facility] [id number] [address]- 7980 May, [facility] [address] [facility] [id number], [place] [id number] May, [facility] [place] [facility] [address] [facility] [id number] [address]- 1813 May, [facility] [place] [facility] [address] [facility] [id number], [place] 245233- 2094 Apr, [facility] [address] [facility] [id number] [place] [id number] Apr, [facility] [place] [facility] [address] [facility] [id number], [place] [address]- 7708 Apr, [facility] [address] [id number] [place] [id number] Apr, [facility] [address] [facility] [id number], [place] [id number] Apr, [facility] [place] [facility] [address]00565100[place], [place] [address]- 5705 Apr, [facility] [place] [facility] [address]00565100[place], [place] [address]- 8867 Apr, [facility] [address] [facility] [id number], [place] [id number] Apr, [facility] [place] [facility] [address]00565100[place], [place] [address]- 4005 Apr, [facility] [address] [facility] [id number], [place] [id number] Apr, [facility] [place] [facility] [address] [facility] [id number] [address]- 0985 Apr, [facility] [address] [facility] [id number], [place] [id number] Apr, [facility] [place] [facility] [address] [facility] [id number][place] [address]- 0531 Apr, [facility] [address] [facility] [id number], [place] [id number] Apr, [facility] [place] [facility] [address]00565100[place], [place] 58924734- 9163 Apr, [facility] [address] [id number] [place] [id number] Apr, [facility] [place] [facility] [address] [facility] [id number] [place] [address]- 5564 Apr, [facility] [address] [id number] [place] [id number] Apr, [facility] [place] [facility] [address] [facility] [id number] [place] [address]- 2719 Apr, [facility] [address] [id number] [place] [id number] Mar, [facility] [place] [facility] [address] [facility] [id number][place] [address]- 6753 Mar, [facility] [address] [id number] [place] [id number] Mar, [facility] [address] [facility] [id number], [place] 004202648 Mar, [facility] [place] [facility] [address] [facility] [id number][place] [address]- 2202 Mar, [facility] [place] [facility] [address] [facility] [id number][place] [address]- 6396 Mar, [facility] [address] [facility] [id number], [place] 120037378 Mar, [facility] [place] [facility] [address] [facility] [id number], [place] [address]- 0584 Mar, [facility] [address] [id number], [place] [id number] Mar, [facility] [place] [facility] [address] [facility] [id number] [address]- 2793 Mar, [facility] [address] [id number] [place] [id number] Mar, [facility] [place] [facility] [address] [facility] [id number] [address]- 4973 Mar, [facility] [address] [id number] [place] [id number] Mar, [facility] [place] [facility] [address] [id number] [place] [address]- 4008 Mar, [facility] [address] [id number] [place] [id number] Mar, [facility] [place] [facility] [address] [id number] [place]- 7357 Mar, [facility] [address] [id number] [place] 759873235 Mar, [facility] [place] [facility] [address] [id number] [place] [address]- 2648 Mar, [facility] [address] [id number] [place] [id number] Mar, [facility] [place] [facility] [address] [facility] [id number] [place] [address]- 5603 Mar, [facility] [address] [id number] [place] [id number] Feb, [facility] [place] [facility] [address] [facility] [id number] [place] [address]- 7071 Feb, [facility] [address] [id number] [place] [id number] Feb, [facility] [place] [facility] [address] [facility] [id number] [place] [address]- 5766 Feb, [facility] [address] [id number] [place] [id number] Feb, [facility] [place] [facility] [address] [facility] [id number] [place] [address]- 6847 Feb, [facility] [address] [id number] [place] [id number] Feb, [facility] [place] [facility] [address] [facility] [id number] [place] [address]- 2872 Feb, [facility] [address] [id number] [place] [id number] Feb, [facility] [place] [facility] [address] [facility] [id number] [place] [address]- 9689 Feb, [facility] [address] [id number] [place] [id number] Feb, [facility] [place] [facility] [address] [id number] [place] [address]- 2089 Feb, [facility] [address] [id number] [place] [id number] Feb, [facility] [place] [facility] [address] [facility] [id number] [place] [address]- 6595 Feb, [facility] [address] [id number] [place] 695756476 Feb, [facility] [place] [facility] [address] [id number] [place] [address]- 5908 Feb, [facility] [address] [id number] [place] 870929272 Feb, [facility] [place] [facility] [address] [facility] [id number] [place] [address]- 9989 Feb, [facility] [address] [id number] [place] [id number] Feb, [facility] [address] [id number] [place] [id number] Feb, [facility] [place] [facility] [address] [facility] [id number] [place] [address]- 6333 Feb, [facility] [place] [facility] [address] [facility] [id number] [place] [address]- 5186 Feb, [facility] [address] [id number] [place] [id number] Feb, [facility] [place] [facility] [address] [id number] [place] [address]- 5819 Feb, [facility] [address] [id number] [place] [id number] Feb, [facility] [place] [facility] [address] [id number] [place] [address]- 9690 Feb, [facility] [address] [id number] [place] 503984887 Feb, [facility] [place] [facility] [address] [id number] [place] [address]- 5714 Feb, [facility] [address] [id number] [place] [id number] Jan, [facility] [place] [facility] [address] [id number] [place] [address]- 8323 Jan, [facility] [place] [facility] [address] [facility] [id number] [place] [address]- 5363 Jan, [facility] [place] [facility] [address] [id number] [place] [address]- 6749 Jan, [facility] [place] [facility] [address] [facility] [id number] [place] [address]- 5954 Jan, [facility] [place] [facility] [address] [facility] [id number] [place] [address]- 0423 Jan, [facility] [address] [id number], [place] 891434369 Jan, [facility] [place] [facility] [address] [facility] [id number] [place] [address]- 8128 Jan, [facility] [place] [facility] [address] [facility] [id number], [place] [address]- 7063 Jan, [facility] [place] [facility] [address] [facility] [id number] [address]- 0745 Jan, [facility] [address] [id number], [place] 205672691 Jan, [facility] [address] [id number], [place] 992580793 Jan, [facility] [place] [facility] [address] [id number], [place] [address]- 9042 Jan, [facility] [place] [facility] [address] [id number], [place] [address]- 1460 Jan, [facility] [address] [id number] [place] [id number] Jan, [facility] [address] [id number], [place] 278770324 Jan, [facility] [place] [facility] [address] [id number] [place] [address]- 6036 Jan, [facility] [place] [facility] [address] [facility] [id number][place] [address]- 2446 Jan, [facility] [place] [facility] [address] [facility] [id number] [place] [address]- 7960 Jan, [facility] [address] [facility] [id number], [place] 922868239 December, [facility] [place] [facility] [address] [facility] [id number] [place] [address]- 0395 December, [facility] [place] [facility] [address] [facility] [id number] [place] [address]- 8437 December, [facility] [address] [facility] [id number], [place] [id number] December, [facility] [place] [facility] [address] [facility] [id number] [address]- 9927 December, [facility] [address] [facility] [id number], [place] 612269283 December, [facility] [place] [facility] [address] [facility] [id number] [address]- 1144 December, [facility] [address] [facility] [id number], [place] 735583636 December, [facility] [place] [facility] [address] [facility] [id number] [address]- 3716 December, [facility] [address] [facility] [id number] [place] 714537395 Nov, [facility] [place] [facility] [address] [facility] [id number] [place] [address]- 8392 Nov, [facility] [address] [facility] [id number], [place] [id number] Nov, [facility] [place] [facility] [address] [facility] [id number] [place]- 6697 Nov, [facility] [address] [facility] [id number] [place] [address]- 2327 Nov, [facility] [place] [facility] [address] [facility] [id number] [place] [address]- 1826 Nov, [facility] [address] [facility] [id number] [place] [address]- 1715 Oct, [facility] [address] [facility] [id number] [place] [id number] Oct, [facility] [address] [id number] [place] [address]- 5650 Oct, [facility] [address] [facility] [id number] [place] [address] 192873190 Oct, [facility] [address] [facility] [id number] [address]- 7518 Oct, [facility] [id number], [place] 132359707 Sep, [facility] [address] [facility] [id number][place] [address]- 3697 Sep, [facility] [address] [id number], [place] 058074051 Aug, [facility] [address]00565100[place], [place] [address]- 8431 Aug, [facility] [address] [facility] [id number], [place] [id number] Aug, [facility] [place] [facility] [address] [facility] [id number][place] [address]- 8477 Aug, [facility] [place] [facility] [address] [facility] [id number][place] [address]- 5584 Aug, [facility] [address] [facility] [id number], [place] [id number] Aug, [facility] [place] [facility] [address] [facility] [id number] [place] [address]- 0977 Aug, [facility] [place] [facility] [address] [facility] [id number] [address]- 2739 Aug, [facility] [address] [id number] [place] [id number] Aug, [facility] [place] [facility] [address] [facility] [id number] [address]- 8491 Aug, [facility] [address] [facility] [id number] [place] [id number] Jul, [facility] [place] [facility] [address] [facility] [id number] [address]- 6370 Jul, [facility] [address] [facility] [id number] [place] [id number] Jul, [facility] [place] [facility] [address] [facility] [id number], [place] [address]- 6194 Jul, [facility] [address] [id number] [place] 750038227 Jul, [facility] [place] [facility] [address]00565100[place] [address]- 9619 Jul, [facility] [address] [facility] [id number] [place] [id number] Jul, [facility] [address] [address] Jul, [facility] [address] [id number] [id number] Jun, [facility] [address] [id number] [address] Jun, [facility] [address] [facility] [id number][place] [id number] Jun, [facility] [address] [id number] [address] Jun, [facility] [address] [facility] [id number], [place] [address] Jun, [facility] [address] [id number], [place] [address] Jun, [facility] [place] [address] [id number] [place] [id number] Apr, [facility] [place] [address] [id number] [place] [id number] Mar, [facility] [address] [id number] [place] [id number] Mar, [facility] [place] [address] [id number] [place] [id number] Feb, [facility] [place] [address] [id number] [place] [id number] Feb, [facility] [place] [address] [id number] [place] [id number] Feb, [facility] [address] [id number] [place] [id number] December, [facility] [place] [address] [id number] [place] [address] December, [facility] [address]65100[place], [place] [address] December, [facility] [address] [id number] [place] [id number] December, [facility] [address] [id number] [place] [address] December, [facility] [address] [id number] [place] [address] Nov, [facility] [address] [id number] [place] [id number] Nov, [facility] [address] [id number] [place] [id number] Nov, [facility] [address] [id number] [place] [address] Oct, [facility] [address] [id number] [place] [id number] Sep, [facility] [place] [address] [id number] [place] [id number] Aug, [facility] [address] [id number], [place] [address] Aug, [facility] [address] [id number] [place] [id number] Aug, [facility] [address] [id number] [place] [id number] Jul, [facility] [address] [facility] [id number], [place] [address] Jul, [facility] [address] [id number] [place] [id number] Jul, [facility] [address] [facility] [id number] [address] Jul, [facility] [address] [id number] [place] [id number] Jun, [facility] [address] [facility] [id number] [address] Jun, [facility] [address] [id number][place] [address] May, [facility] [address] [address] May, [facility] [address] [id number][place] [id number] May, [facility] [address] [facility] [id number] [address] May, [facility] [address] [id number][place] [id number] Apr, [facility] [address] [id number] [place] [id number] Apr, [facility] [address] [id number] [place] [id number] Mar, [facility] [address] [id number] [place] [id number] Mar, [facility] [address] [id number] [place] [id number] Feb, [facility] [address] [id number] [place] [id number] Feb, [facility] [address] [id number] [place] [id number] Jan, [facility] [address] [id number] [place] [address] Jan, [facility] [address] [id number] [place] [id number] Jan, [facility] [address] [id number] [place] [id number] Jan, [facility] [address] [id number] [place] [id number] December, [facility] [address] [id number] [place] [id number] December, [facility] [address] [id number], [place] [address] Nov, [facility] [address] [id number] [place] [id number] Nov, [facility] [address] [id number] [place] [id number] Nov, [facility] [address] [id number] [place] [address] Nov, [facility] [address] [id number] [place] [id number] Nov, [facility] [address] [facility] [id number], [place] [address] Oct, [facility] [address] [facility] [id number], [place] [address] Oct, [facility] [address] [id number] [place] [id number] Oct, [facility] [address] [id number] [place] [id number] Oct, [facility] [address] [id number] [place] [id number] Oct, [facility] [address] [id number] [place] [id number] Oct, [facility] [address] [id number] [place] [id number] Oct, [facility] [address] [id number] [place] [id number] Oct, [facility] [address] [id number] [place] [id number] Oct, [facility] [address] [facility] [id number] [address] Oct, [facility] [address] [id number] [place] [id number] Sep, [facility] [address] [id number] [place] [id number] Sep, [facility] [address] [id number] [place] [id number] Aug, [facility] [address] [id number] [place] [id number] Aug, [facility] [id number] [address] Jul, [facility] [id number] [place] [address] Jul, [facility] [id number] [address] Jul, [facility] [id number] [place] [address] Jul, [facility] [id number], [place] [address] Jul, [facility] [id number], [place] [address] Jul, [facility] [id number] [address] Jul, [facility] [id number], [place] [address] Jul, [facility] [id number], [place] [address] Jul, [facility] [id number], [place] [address] Jul, [facility] [address] [facility] [id number] [place] [address] 19 Jul, 2011 [facility] [address] [facility] [id number] [place] [address] Jul, [facility] [address] [facility] [id number] [place] [address] Jul, [facility] [address] [facility] [id number] [address] 08 Jul, 2011 IMMUNIZATIONS No Known Immunizations SOCIAL HISTORY Never Assessed REASON FOR VISIT med question PLAN OF CARE VITAL SIGNS MEDICATIONS Medication [...] renal failure--2010. Secondary to ATN from [facility] 4.3 Medical History HX of [...] in the future. Medical History 05/26/17 noted, fdc has ended and they feel he is [...] [facility]2014 Surgical History amputation, toe-right third toe ([facility]) 2013 Surgical History Right eye retinal eye repair ([facility]) 09/2014 Surgical History [...]
--- OUTSIDE RECORDS SUMMARY | 2018-06-20 11:01 | XMS REPORT ---
Author Author SATINDER GOOD Organization [facility] Address [address] [place] [address] Care Team Providers Care Art Objects Salesperson Name Role Phone SATINDER GOOD Unavailable PROBLEMS Type Condition ICD9-CM Code [id number] Code Onset Dates Condition Status SNOMED Code Problem Peripheral vascular disease I73.9 Active 720144596 Problem Coronary artery disease involving [place] coronary artery of [place]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 Active 8915715896206 Problem S/P coronary artery stent placement Z95.5 Active 567326187 Problem Chronic obstructive pulmonary disease, unspecified COPD type J44.9 Active 78557543 Problem Type 2 diabetes mellitus with diabetic neuropathy E11.40 Active 33628767 Problem Bilateral low back pain without sciatica M54.5 Active 015312881 Problem 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 Active 413161923 Problem 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 Active 047806190 Problem Hypercholesterolemia E78.0 Active 14099600 Problem Comprehensive diabetic foot examination, type 2 DM, encounter for E11.9 Active 51577063 Problem Type 2 diabetes mellitus with diabetic polyneuropathy E11.42 Active 022725008 Problem Obesity (BMI 30.0-34.9) E66.9 Active 826140188906668 Problem Personal history of carotid stenosis Z86.79 Active 144411004 Problem Aphasia R47.01 Active 75737035 Problem Chronic diarrhea K52.9 Active 187272156 Problem Uses walker Z99.89 Active 641431625 Problem Chronic fatigue R53.82 Active 38401090 Problem Mixed stress and urge urinary incontinence N39.46 Active 746931375 Problem Chronic pain syndrome G89.4 Active 559078193 Problem High risk medication use Z79.899 Active 927832549 Problem Osteomyelitis of right foot, unspecified chronicity M86.9 Active 34425058 Problem Fatigue, unspecified type R53.83 Active 37717757 Problem Diabetes type 2, uncontrolled E11.65 Active 157944858 Problem Full incontinence of feces R15.9 Active 228169215131161 Problem Other chronic pain G89.29 Active 68070817 Problem Functional diarrhea K59.1 Active 57331096 Problem Fecal urgency R15.2 Active 77137457 Problem Depression F32.9 Active 32884097 Problem CKD (chronic kidney disease), stage 3 (moderate) N18.3 Active 914940501 Problem Hyperlipidemia, unspecified hyperlipidemia E78.5 Active 97201828 Problem CKD (chronic kidney disease) stage 3, GFR 30-59 ml/min N18.3 Active 172854587 Problem Type 2 diabetes mellitus with diabetic peripheral angiopathy without gangrene E11.51 Active 618898083 Problem Pain in left shoulder M25.512 Active 27431134 Problem Insulin long-term use Z79.4 Active 239994830 Problem Essential hypertension I10 Active 39793570 Problem Type 2 diabetes mellitus with diabetic retinopathy, macular edema presence unspecified, with unspecified retinopathy severity E11.319 Active 28766046 Problem Chronic kidney disease, unspecified N18.9 Active 256939814 Problem Type 2 diabetes mellitus with foot ulcer E11.621 Active 347067446 Problem Frequent falls R29.6 Active 909359489 Problem GERD without esophagitis K21.9 Active 978616914 Problem Mixed hyperlipidemia E78.2 Active 471387743 ALLERGIES No Information ENCOUNTERS Encounter Location Date Diagnosis [facility] [address] [id number] Apr, [facility] [place] [address] [id number] Mar, [facility] [place] [id number] [place] [address] [id number] Feb, Other chronic pain G89.29 [facility] [id number] [place] [address] [id number] Feb, [facility] [place] [address] [id number] Feb, [facility] [address] [id number] Feb, Diabetes type 2, uncontrolled E11.65 [facility] [address] [id number] Feb, Other chronic pain G89.29 [facility] [address] [id number] [id number] Jan, [facility] [id number], [place] [id number] Jan, [facility] [id number], [place] [id number] Jan, [facility] [id number], [place] [id number] Jan, Other chronic pain G89.29 [facility] [id number], [place] [id number] December, Mixed stress and urge urinary incontinence N39.46 [facility] [id number] [place] [address] [id number] December, Chronic fatigue R53.82 [facility] [address] [place] [address] [id number] December, Other chronic pain G89.29 [facility] [address]00565100[place] [id number] December, Diabetes type 2, uncontrolled E11.65 ; [...] type J44.9 and Other chronic pain G89.29 [facility] [address] [facility] [id number][place] [id number] December, [facility] [address] [id number], [place] [id number] December, Medicare annual wellness visit, subsequent Z00.00 ; Type 2 diabetes mellitus with diabetic polyneuropathy E11.42 ; Chronic obstructive pulmonary disease, unspecified COPD type J44.9 ; Depression F32.9 ; Peripheral vascular disease I73.9 ; Coronary artery disease involving [place] coronary artery of win[place]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 ; Hypercholesterolemia E78.0 ; GERD without esophagitis K21.9 and Chronic kidney disease, unspecified N18.9 [place] [id number] [place] [address] [id number] December, Mixed stress and urge urinary incontinence N39.46 ; Full incontinence of feces R15.9 ; Fecal urgency R15.2 ; Functional diarrhea K59.1 and Type 2 diabetes mellitus with diabetic neuropathy E11.40 [place] [id number] [place] [address] [id number] Nov, Other chronic pain G89.[address] [id number] Oct, [address] [id number] Oct, [address] [id number] Oct, Other chronic pain G89.29 [place] [id number] [place] [address] [id number] Sep, Other chronic pain G89.[address] [id number] Aug, CKD (chronic kidney disease), stage 3 (moderate) N18.3 ; Anemia, unspecified type D64.9 and Dilated pore of Ly L70.[address] [id number] Aug, Other chronic pain G89.29 ; Pain in left shoulder M25.512 ; High risk medication use Z79.899 ; Uses walker Z99.89 ; Diabetes type 2, uncontrolled E11.65 and Depression F32.9 [place] [id number] [place] [address] [id number] Aug, Chronic diarrhea K52.[address] [id number] Aug, Chronic diarrhea K52.9 ; Type 2 diabetes mellitus with diabetic neuropathy E11.40 ; Diabetes type 2, uncontrolled E11.65 ; Insulin long-term use Z79.4 ; Chronic obstructive pulmonary disease, unspecified COPD type J44.9 ; Chronic pain syndrome G89.4 ; Pain in left shoulder M25.512 ; Uses walker Z99.89 ; S/P coronary artery stent placement Z95.5 ; Mixed hyperlipidemia E78.2 and Essential hypertension I10 [address] [place] [address] [id number] Aug, [place] [id number] [place] [address] [id number] Jul, Diabetes type 2, uncontrolled E11.65 [place] [id number] [place] [address] [id number] Jul, Diabetes type 2, uncontrolled E11.65 ; Type 2 diabetes mellitus with diabetic neuropathy E11.40 ; Insulin long-term use Z79.4 and Chronic obstructive pulmonary disease, unspecified COPD type J44.9 [place] [id number] [place] [address] [id number] Jun, [place] [id number] [place] [address] [id number] Jun, Essential hypertension I10 [address] [place] [address] [id number] Jun, Essential hypertension I10 [place] [id number] [place] [address] [id number] Jun, Type 2 diabetes mellitus with diabetic neuropathy E11.40 ; Type 2 diabetes mellitus with diabetic polyneuropathy E11.42 ; S/P coronary artery stent placement Z95.5 ; Obesity (BMI 30.0-34.9) E66.9 ; Mixed hyperlipidemia E78.2 ; Frequent falls R29.6 ; Chronic obstructive pulmonary disease, unspecified COPD type J44.9 ; Essential hypertension I10 ; Insulin long-term use Z79.4 and High risk medication use Z79.899 [address] [place] [address] [id number] May, Diarrhea, unspecified type R19.7 ; Type 2 diabetes mellitus with diabetic neuropathy E11.40 ; Chronic obstructive pulmonary disease, unspecified COPD type J44.9 ; S/P coronary artery stent placement Z95.5 ; High risk medication use Z79.899 ; Essential hypertension I10 ; Encounter for administration of vaccine Z23 and Encounter for immunization Z23 [facility] [id number][place] [id number] May, Chronic obstructive pulmonary disease, unspecified COPD type J44.9 [facility] [address]00565100[place] [id number] May, Type 2 diabetes mellitus with diabetic polyneuropathy E11.42 ; Encounter for immunization Z23 ; Needs flu shot Z23 ; Comprehensive diabetic foot examination, type 2 DM, encounter for E11.9 and Obesity (BMI 30.0-34.9) E66.9 [address] [place] [address] [id number] May, [address] [place] [address] [id number] Apr, [place] [id number] [place] [address] [id number] Apr, Essential hypertension I10 and Aphasia R47.[address] [place] [address] [id number] Apr, [place] [id number] [place] [address] [id number] Apr, Type 2 diabetes mellitus with diabetic neuropathy E11.40 ; Frequent falls R29.6 ; Essential hypertension I10 ; S/P coronary artery stent placement Z95.5 ; High risk medication use Z79.899 ; Hyperlipidemia, unspecified hyperlipidemia E78.5 ; CKD (chronic kidney disease), stage 3 (moderate) N18.3 ; Pain in left shoulder M25.512 and Chronic obstructive pulmonary disease, unspecified COPD type J44.[address] [id number], [place] [id number] Mar, [place] [id number] [place] [address] [id number] Mar, Type 2 diabetes mellitus with diabetic polyneuropathy E11.42 ; Leg wound, left, initial encounter S81.802A ; Hx of shoulder surgery Z98.890 ; Acute pain of left shoulder M25.512 and Fall, initial encounter W19.XXXA [facility] [id number] [place] [address] [id number] Feb, Follow-up exam Z09 ; Hx of shoulder surgery Z98.890 ; Acute pain of left shoulder M25.512 ; Essential hypertension I10 and Leg wound, left, initial encounter S81.802A [facility] [id number] [place] [address] [id number] Feb, [facility] [address] [id number] Feb, [facility] [id number] [place] [address] [id number] Feb, Chronic obstructive pulmonary disease, unspecified COPD type J44.9 [facility] [id number] [place] [address] [id number] Feb, [facility] [id number] [place] [address] [id number] Jan, Generalized weakness R53.1 ; Exertional shortness of breath R06.02 and Fungal rash of trunk B36.9 [facility] [place] [id number] [place] [address] [id number] Jan, [facility] [id number] [place] [address] [id number] Jan, [facility] [id number] [place] [address] [id number] Jan, [facility] [id number] [place] [address] [id number] Jan, [facility] [id number] [place] [address] [id number] December, High risk medication use Z79.899 [facility] [id number] [place] [address] [id number] December, Type 2 diabetes mellitus with diabetic neuropathy E11.40 [facility] [id number] [place] [address] [id number] December, High risk medication use Z79.899 [facility] [place] [id number] [place] [address] [id number] 28 Apr, 2017 Diabetes type 2, uncontrolled E11.[address] [id number], [place] [id number] Nov, Medicare annual wellness visit, initial Z00.00 ; Bilateral low back pain without sciatica M54.5 ; Pain in left shoulder M25.512 ; Chronic pain syndrome G89.4 ; Type 2 diabetes mellitus with diabetic polyneuropathy E11.42 ; High risk medication use Z79.899 and Encounter for immunization Z23 [place] [id number] [place] [address] [id number] Nov, Type 2 diabetes mellitus with diabetic neuropathy E11.40 ; Coronary artery disease involving [place] coronary artery of win[place]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 and CKD (chronic kidney disease), stage 3 (moderate) N18.3 [address] [place] [address] [id number] Oct, Type 2 diabetes mellitus with diabetic polyneuropathy E11.42 ; Chronic pain syndrome G89.4 ; Chronic obstructive pulmonary disease, unspecified COPD type J44.9 ; Chronic kidney disease, unspecified N18.9 and Rash R21 [address] [id number][place] [id number] Oct, Type 2 diabetes mellitus with diabetic neuropathy E11.40 [address] [place] [address] [id number] Oct, Rash R21 and Impetigo L01.[address] [place] [address] [id number] Oct, Chronic pain syndrome G89.4 [address] [place] [address] [id number] Oct, [id number] [place] [address] [id number] Sep, Sebaceous cyst L72.3 [address] [place] [address] [id number] Sep, Sebaceous cyst L72.3 [address] [place] [address] [id number] Sep, Chronic pain syndrome G89.4 ; Pain in left shoulder M25.512 and Effusion of olecranon bursa, left M25.422 [facility] [address] [id number] [address] Aug, [facility] [id number] [place] [address] [id number] Aug, [facility] [id number] [place] [address] [id number] Aug, Mixed hyperlipidemia E78.2 and Chronic kidney disease, unspecified N18.9 [facility] [id number] [place] [address] [id number] Jul, Type 2 diabetes mellitus with diabetic neuropathy E11.40 ; Essential hypertension I10 and S/P coronary artery stent placement Z95.5 [facility] [id number] [place] [address] [id number] Jul, 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 [place] [id number] [place] [address] [id number] Jul, Diabetes type 2, uncontrolled E11.65 ; Essential hypertension I10 and 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 [facility] [id number] [place] [address] [id number] Jul, [facility] [id number] [place] [address] [id number] Jul, [facility] [id number] [place] [address] [id number] Jul, [facility] [id number] [place] [address] [id number] Jul, Chronic obstructive pulmonary disease, unspecified COPD type J44.9 [facility] [address] [place] [address] [id number] Jun, CKD (chronic kidney disease), stage 3 (moderate) N18.3 and Anemia, unspecified type D64.9 [facility] [id number] [place] [address] [id number] Jun, Type 2 diabetes mellitus with diabetic neuropathy E11.40 ; Decreased GFR R94.4 ; CKD (chronic kidney disease), stage 3 (moderate) N18.3 and Decreased hemoglobin R71.0 [address] [place] [address] [id number] Jun, CKD (chronic kidney disease), stage 3 (moderate) N18.3 and Anemia, unspecified type D64.9 [address] [place] [address] [id number] Jun, Type 2 diabetes mellitus with diabetic neuropathy E11.40 ; Decreased GFR R94.4 and CKD (chronic kidney disease), stage 3 (moderate) N18.3 [place] [id number] [place] [address] [id number] Jun, Type 2 diabetes mellitus with diabetic neuropathy E11.40 and Essential hypertension I10 [place] [id number] [place] [address] [id number] Jun, [place] [id number] [place] [address] [id number] Jun, [place] [id number] [place] [address] [id number] Jun, Type 2 diabetes mellitus with diabetic neuropathy E11.40 ; S/P coronary artery stent placement Z95.5 ; Chronic obstructive pulmonary disease, unspecified COPD type J44.9 ; Essential hypertension I10 ; GERD without esophagitis K21.9 ; Peripheral vascular disease I73.9 ; Mixed hyperlipidemia E78.2 and Hospital discharge follow-up Z09 [address] [place] [address] [id number] Jun, [place] [id number] [place] [address] [id number] May, Depression F32.9 and Hyperlipidemia, unspecified hyperlipidemia E78.5 [facility] [address]00565100[place], [place] [address] May, [place] [id number] [place] [address] [id number] May, [place] [id number] [place] [address] [id number] May, Essential hypertension I10 ; Chronic pain syndrome G89.4 ; Pain in left shoulder M25.512 ; High risk medication use Z79.899 ; Chronic obstructive pulmonary disease, unspecified COPD type J44.9 ; S/P coronary artery stent placement Z95.5 ; Personal history of carotid stenosis Z86.79 ; Hyperlipidemia, unspecified hyperlipidemia E78.5 ; Decreased GFR R94.4 and Type 2 diabetes mellitus with diabetic polyneuropathy E11.42 [facility] [id number] [place] [address] [id number] May, Hemoglobin decreased R71.0 and Decreased GFR R94.[address] [id number] May, Hemoglobin decreased R71.0 and Decreased GFR R94.[address] [id number] May, [address] [id number] May, [address] [id number] Apr, [address] [id number] Apr, Type 2 diabetes mellitus with foot [...] unspecified hyperlipidemia E78.5 and Essential hypertension I10 [place] [id number] [place] [address] [id number] Apr, [place] [id number] [place] [address] [id number] Mar, [place] [id number] [place] [address] [id number] Mar, [facility] [id number] [place] [address] [id number] [phone] Mar, [address] [id number] Feb, [facility] [id number], [place] [id number] Feb, [facility] [id number] [place] [address] [id number] Feb, [facility] [id number] [place] [address] [id number] Jan, Type 2 diabetes mellitus with diabetic polyneuropathy E11.42 ; Hypercholesterolemia E78.0 ; Chronic pain syndrome G89.4 ; Pain in left shoulder M25.512 and High risk medication use Z79.899 [facility] [id number] [place] [address] [id number] Jan, [facility] [id number] [place] [address] [id number] Jan, [facility] [id number] [place] [address] [id number] December, [facility] [id number] [place] [address] [id number] December, [facility] [id number] [place] [address] [id number] [id number] December, Diabetes type 2, uncontrolled E11.65 ; Type 2 diabetes mellitus with diabetic neuropathy E11.40 ; Peripheral vascular disease I73.9 ; 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 and 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 [facility] [id number] [place] [address] [id number] Nov, [facility] [id number] [place] [address] [id number] Nov, [facility] [id number] [place] [address] [id number] Nov, [facility] [id number] [place] [address] [id number] Nov, Right hip pain M25.551 [facility] [id number] [place] [address] [id number] Nov, [facility] [address] [id number] Nov, [facility] [address] [id number], [place] [id number] Nov, Diabetes with neurological manifestations, type II or unspecified type, 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.60 [facility] [address] [id number], [place] [id number] Nov, [facility] [address] [id number], [place] [id number] Nov, [facility] [address] [id number], [place] [id number] Oct, Diabetes type 2, uncontrolled E11.65 ; Type 2 diabetes mellitus with diabetic neuropathy, unspecified E11.40 and Low back pain M54.5 [facility] [address] [id number], [place] [id number] Oct, [facility] [address] [id number], [place] [id number] Oct, [facility] [address] [id number], [place] [id number] Oct, [facility] [address] [id number], [place] [id number] Sep, [facility] [place] [id number], [place] [id number] Sep, [facility] [address] [facility] [id number], [place] [address] Sep, [facility] [address] [id number], [place] [id number] Sep, [facility] [address] [id number], [place] [id number] Sep, [facility] [address] [facility] [id number], [place] [id number] Aug, 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 [facility] [address] [id number], [place] [id number] Aug, [facility] [address] [id number], [place] [id number] Aug, Allergic rhinitis due to pollen J30.1 [facility] [place] [address] [facility] [id number][place] [id number] Jul, [facility] [id number], [place] [id number] Jul, [facility] [id number], [place] [id number] Jul, [facility] [address] [id number], [place] [id number] Jun, [facility] [id number] [place] [address] [id number] Jun, Thumb tendonitis M77.8 and Ringing in ear, bilateral H93.[address] [id number], [place] [id number] Jun, [facility] [id number] [place] [address] [id number] May, [place] [id number] [place] [phone]- [phone] May, [place] [id number] [place] [address] [id number] May, Pre-op evaluation Z01.818 ; Encounter for immunization Z23 ; Type 2 diabetes mellitus with diabetic peripheral angiopathy without gangrene E11.51 ; Insulin long-term use Z79.4 ; Type 2 diabetes mellitus with foot ulcer E11.621 ; Peripheral vascular disease I73.9 ; Coronary artery disease involving win[place] coronary artery of win[place]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 ; S/P coronary artery stent placement Z95.5 ; Osteomyelitis of right foot, unspecified chronicity M86.9 and Chronic obstructive pulmonary disease, unspecified COPD type J44.9 [facility] [address] [place] [address]- 0799 May, [address] [place] [address] [id number] May, [facility] [address] [place] [address] [id number] May, Diabetes type 2, uncontrolled E11.65 ; Encounter for immunization Z23 ; Osteopenia M85.80 and Allergic rhinitis due to pollen J30.1 [facility] [id number], [place] [id number] May, Lumbago 724.2 [facility] [id number] [place] [address] [id number] Apr, [facility] [address] [id number] [id number] Apr, [facility] [id number] [place] [address] [id number] Apr, [facility] [id number] [place] [address] [id number] Apr, [facility] [address] [id number]- 7024 Mar, [facility] [id number] [place] [address] [id number] Mar, [facility] [id number] [place] [address] [id number] Mar, [facility] [id number] [place] [address] [id number] Mar, [facility] [id number] [place] [address] [id number] Mar, [facility] [id number] [place] [address]58- 9226 Mar, [facility] [id number] [place] [address] [id number] Mar, [facility] [id number] [place] [address] [id number] Mar, Diabetes with neurological manifestations, type II or unspecified type, 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.60 and Severe obesity (BMI 35.0-35.9 with comorbidity) 278.01 [facility] [id number] [place] [address] [id number] Mar, [facility] [id number] [place] [address] 97136- 7069 Mar, [facility] [address] [address]- 2546 Feb, [facility] [address] [id number][place] [id number] Feb, [facility] [id number], [place] [id number] Feb, [facility] [id number], [place] [id number] Feb, Diabetes with neurological manifestations, type II or unspecified type, 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.60 [facility] [id number], [place] [id number] Feb, [facility] [address] [place] [address] 27229- 2546 Feb, [facility] [id number], [place] [id number] Feb, [facility] [id number], [place] [id number] Feb, Follow up V67.9 ; Diabetes with neurological manifestations, type II or unspecified type, 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.60 and Congestive heart failure 428.0 [facility] [id number], [place] [id number] Jan, [facility] [id number], [place] [id number] Jan, [facility] [id number], [place] [id number] Jan, [facility] [id number], [place] [id number] December, Otitis media with effusion 381.4 ; Left arm numbness 782.0 and Osteoporosis 733.00 [facility] [id number], [place] [id number] December, [facility] [id number], [place] [id number] Nov, [facility] [id number], [place] [id number] Nov, Serous otitis media 381.4 and Lumbago 724.2 [facility] [address] [id number], [place] [address] 7246 14 Nov, 2014 [facility] [place] [facility] [address] [id number], [place] [address]- 8006 Nov, [facility] [address] [facility] [id number], [place] [id number] Oct, [facility] [place] [facility] [address] [facility] [id number], [place] [address]- 5216 Oct, [facility] [address] [facility] [id number], [place] [id number] Oct, [facility] [place] [facility] [address] [facility] [id number], [place] [address]- 8339 Oct, [facility] [address] [facility] [id number], [place] [id number] Oct, [facility] [place] [facility] [address]00565100[place], [place] [address]- 5347 Oct, [facility] [place] [facility] [address] [id number], [place] [address]- 6862 Sep, [facility] [place] [facility] [address] [id number], [place] [address]- 9937 Sep, [facility] [address] [id number], [place] [id number] Sep, [facility] [place] [facility] [address] [id number], [place] [address]- 5246 Sep, [facility] [address] [facility] [id number], [place] [id number] Aug, [facility] [place] [facility] [address] [facility] [id number], [place] [address]- 5828 Aug, [facility] [address] [facility] [id number], [place] [id number] Aug, [facility] [place] [facility] [address] [facility] [id number], [place] [address]- 2546 Aug, [facility] [address] [facility] [id number], [place] [id number] Jul, [facility] [place] [facility] [address] [facility] [id number], [place] [address]- 9486 Jul, [facility] [address] [facility] [id number] [place] [id number] Jul, [facility] [place] [facility] [address] [facility] [id number], [place] [address] 2546 Jul, [facility] [address] [facility] [id number], [place] [id number] Jul, [facility] [place] [facility] [address] [facility] [id number], [place] [address]- 5033 Jul, [facility] [address] [facility] [id number] [place] [address] [id number] Jun, [facility] [place] [facility] [address] [facility] [id number][place] [address]- 7686 Jun, [facility] [address] [id number], [place] [id number] May, [facility] [place] [facility] [address] [facility] [id number], [place] [address]- 6785 May, [facility] [address] [facility] [id number], [place] [id number] May, [facility] [place] [facility] [address] [facility] [id number], [place] [address]- 9747 May, [facility] [address] [facility] [id number], [place] [id number] May, [facility] [place] [facility] [address] [facility] [id number], [place] [address]- 5414 May, [facility] [address] [facility] [id number], [place] [id number] May, [facility] [address] [facility] [id number], [place] [id number] May, [facility] [place] [facility] [address] [facility] [id number], [place] [address]- 4614 May, [facility] [place] [facility] [address] [facility] [id number], [place] [address]- 7392 May, [facility] [address] [facility] [id number], [place] [id number] May, [facility] [place] [facility] [address] [facility] [id number], [place] [address]- 5528 May, [facility] [place] [facility] [address] [facility] [id number], [place] 477166- 0355 Apr, [facility] [address] [facility] [id number] [place] [id number] Apr, [facility] [place] [facility] [address] [facility] [id number], [place] [address]- 9378 Apr, [facility] [address] [id number] [place] [id number] Apr, [facility] [address] [facility] [id number], [place] [id number] Apr, [facility] [place] [facility] [address]00565100[place], [place] [address]- 3277 Apr, [facility] [place] [facility] [address]00565100[place], [place] [address]- 1503 Apr, [facility] [address] [facility] [id number], [place] [id number] Apr, [facility] [place] [facility] [address]00565100[place], [place] [address]- 1724 Apr, [facility] [address] [facility] [id number], [place] 838140940 Apr, [facility] [place] [facility] [address] [facility] [id number], [place] [address]- 7841 Apr, [facility] [address] [facility] [id number], [place] [id number] Apr, [facility] [place] [facility] [address] [facility] [id number], [place] [address]- 0462 Apr, [facility] [address] [facility] [id number], [place] [id number] Apr, [facility] [place] [facility] [address]00565100[place], [place] 19625102- 5949 Apr, [facility] [address] [id number] [place] [id number] Apr, [facility] [place] [facility] [address] [facility] [id number] [place] [address]- 6159 Apr, [facility] [address] [id number] [place] [id number] Apr, [facility] [place] [facility] [address] [facility] [id number] [place] [address]- 6892 Apr, [facility] [address] [id number] [place] [id number] Mar, [facility] [place] [facility] [address] [facility] [id number], [place] [address]- 8293 Mar, [facility] [address] [id number] [place] [id number] Mar, [facility] [address] [facility] [id number], [place] [id number] Mar, [facility] [place] [facility] [address] [facility] [id number][place] [address]- 3567 Mar, [facility] [place] [facility] [address] [facility] [id number], [place] [address]- 4400 Mar, [facility] [address] [facility] [id number], [place] [id number] Mar, [facility] [place] [facility] [address] [facility] [id number], [place] [address]- 4933 Mar, [facility] [address] [id number], [place] [id number] Mar, [facility] [place] [facility] [address] [facility] [id number], [place] [address]- 5135 Mar, [facility] [address] [id number] [place] [id number] Mar, [facility] [place] [facility] [address] [facility] [id number], [place] [address]- 9139 Mar, [facility] [address] [id number] [place] [id number] Mar, [facility] [place] [facility] [address] [id number] [place] [address]- 6273 Mar, [facility] [address] [id number] [place] [id number] Mar, [facility] [place] [facility] [address] [id number] [place]- 4000 Mar, [facility] [address] [id number] [place] 984247521 Mar, [facility] [place] [facility] [address] [id number] [place] [address]- 3819 Mar, [facility] [address] [id number] [place] [id number] Mar, [facility] [place] [facility] [address] [facility] [id number] [place] [address]- 3862 Mar, [facility] [address] [id number] [place] [id number] Feb, [facility] [place] [facility] [address] [facility] [id number] [place] [address]- 7797 Feb, [facility] [address] [id number] [place] 579793498 Feb, [facility] [place] [facility] [address] [facility] [id number] [place] [address]- 1550 Feb, [facility] [address] [id number] [place] [id number] Feb, [facility] [place] [facility] [address] [facility] [id number] [place] [address]- 1430 Feb, [facility] [address] [id number] [place] [id number] Feb, [facility] [place] [facility] [address] [facility] [id number] [place] [address]- 3573 Feb, [facility] [address] [id number] [place] [id number] Feb, [facility] [place] [facility] [address] [facility] [id number] [place] [address]- 0762 Feb, [facility] [address] [id number] [place] 629717943 Feb, [facility] [place] [facility] [address] [id number] [place] [address]- 8378 Feb, [facility] [address] [id number] [place] 949510053 Feb, [facility] [place] [facility] [address] [facility] [id number] [place] [address]- 8948 Feb, [facility] [address] [id number] [place] [id number] Feb, [facility] [place] [facility] [address] [id number] [place] [address]- 2535 Feb, [facility] [address] [id number] [place] [id number] Feb, [facility] [place] [facility] [address] [facility] [id number] [place] [address]- 9205 Feb, [facility] [address] [id number] [place] [id number] Feb, [facility] [address] [id number] [place] 762647388 Feb, [facility] [place] [facility] [address] [facility] [id number] [place] [address]- 7121 Feb, [facility] [place] [facility] [address] [facility] [id number] [place] [address]- 4382 Feb, [facility] [address] [id number] [place] [id number] Feb, [facility] [place] [facility] [address] [id number] [place] [address]- 2274 Feb, [facility] [address] [id number] [place] [id number] Feb, [facility] [place] [facility] [address] [id number] [place] [address]- 3856 Feb, [facility] [address] [id number] [place] [id number] Feb, [facility] [place] [facility] [address] [id number] [place] [address]- 3586 Feb, [facility] [address] [id number] [place] [id number] Jan, [facility] [place] [facility] [address] [id number] [place] [address]- 2809 Jan, [facility] [place] [facility] [address] [facility] [id number] [place] [address]- 5918 Jan, [facility] [place] [facility] [address] [id number] [place] [address]- 9441 Jan, [facility] [place] [facility] [address] [facility] [id number] [place] [address]- 3283 Jan, [facility] [place] [facility] [address] [facility] [id number] [place] [address]- 3313 Jan, [facility] [address] [id number], [place] 584408323 Jan, [facility] [place] [facility] [address] [facility] [id number] [place] [address]- 7994 Jan, [facility] [place] [facility] [address] [facility] [id number], [place] [address]- 6258 Jan, [facility] [place] [facility] [address] [facility] [id number], [place] [address]- 4275 Jan, [facility] [address] [id number], [place] 799048776 Jan, [facility] [address] [id number], [place] [id number] Jan, [facility] [place] [facility] [address] [id number], [place] [address]- 3030 Jan, [facility] [place] [facility] [address] [id number], [place] [address]- 5714 Jan, [facility] [address] [id number] [place] 611088764 Jan, [facility] [address] [id number], [place] 394650391 Jan, [facility] [place] [facility] [address] [id number] [place] [address]- 8746 Jan, [facility] [place] [facility] [address] [facility] [id number], [place] [address]- 9146 Jan, [facility] [place] [facility] [address] [facility] [id number] [place] [address]- 6371 Jan, [facility] [address] [facility] [id number], [place] 654488398 December, [facility] [place] [facility] [address] [facility] [id number] [place] [address]- 6104 December, [facility] [place] [facility] [address] [facility] [id number] [place] [address]- 4061 December, [facility] [address] [facility] [id number], [place] 989196419 December, [facility] [place] [facility] [address] [facility] [id number], [place] [address]- 3034 December, [facility] [address] [facility] [id number], [place] 156947873 December, [facility] [place] [facility] [address] [facility] [id number], [place] [address]- 1515 December, [facility] [address] [facility] [id number], [place] 139441525 December, [facility] [place] [facility] [address] [facility] [id number], [place] [address]- 6246 December, [facility] [address] [facility] [id number] [place] [id number] Nov, [facility] [place] [facility] [address] [facility] [id number] [place] [address]- 4894 Nov, [facility] [address] [facility] [id number], [place] 741186331 Nov, [facility] [place] [facility] [address] [facility] [id number] [place]- 2613 Nov, [facility] [address] [facility] [id number] [place] [address]- 2123 Nov, [facility] [place] [facility] [address] [facility] [id number] [place] [address]- 2294 Nov, [facility] [address] [facility] [id number] [place] [address]- 1460 Oct, [facility] [address] [facility] [id number] [place] [id number] Oct, [facility] [address] [id number] [place] [address]- 4642 Oct, [facility] [address] [facility] [id number] [place] [address] [id number] Oct, [facility] [address] [facility] [id number], [place] [address]- 7676 Oct, [facility] [id number], [place] [id number] Sep, [facility] [address] [facility] [id number], [place] [address]- 2935 Sep, [facility] [address] [id number], [place] [id number] Aug, [facility] [address]005[address], [place] [address] Aug, [facility] [place] [address] [facility] [id number] [id number] Aug, [facility] [place] [facility] [address] [facility] [id number], [place] [address] Aug, [facility] [place] [facility] [address] [facility] [id number], [place] [address] Aug, [facility] [place] [address] [facility] [id number][place] [id number] Aug, [facility] [place] [facility] [address] [facility] [id number] [place] [address] Aug, [facility] [place] [facility] [address] [facility] [id number][place] [address] Aug, [facility] [place] [address] [id number] [place] [id number] Aug, [facility] [place] [facility] [address] [facility] [id number], [place] [address] Aug, [facility] [place] [address] [facility] [id number] [place] [id number] Jul, [facility] [place] [facility] [address] [facility] [id number], [place] [address] Jul, [facility] [place] [address] [facility] [id number] [place] [id number] Jul, [facility] [place] [facility] [address] [facility] [id number], [place] [address] Jul, [facility] [place] [address] [id number] [place] [id number] Jul, [facility] [place] [facility] [address]65[address], [place] [address] Jul, [facility] [place] [address] [facility] [id number] [place] [id number] Jul, [facility] [place] [facility] [address]65[address], [place] [address] Jul, [facility] [address] [id number][place] [id number] Jun, [facility] [place] [facility] [address] [id number], [place] [address] Jun, [facility] [address] [facility] [id number], [place] [id number] Jun, [facility] [place] [facility] [address] [id number], [place] [address] Jun, [facility] [place] [facility] [address] [facility] [id number], [place] [address] Jun, [facility] [place] [facility] [address] [id number], [place] [address] Jun, [facility] [place] [address] [id number] [place] [id number] Apr, [facility] [place] [address] [id number] [place] [id number] Mar, [facility] [place] [address] [id number] [place] [address] Mar, [facility] [place] [address] [id number] [place] [id number] Feb, [facility] [place] [address] [id number] [place] [id number] Feb, [facility] [place] [address] [id number] [place] [id number] Feb, [facility] [place] [address] [id number] [place] [id number] December, [facility] [place] [address] [id number] [place] [id number] December, [facility] [address], [place] [address] December, [facility] [place] [address] [id number] [place] [address] December, [facility] [place] [address] [id number] [place] [id number] December, [facility] [place] [address] [id number] [place] [id number] Nov, [facility] [place] [address] [id number] [place] [id number] Nov, [facility] [place] [address] [id number] [place] [id number] Nov, [facility] [place] [address] [id number] [place] [address] Oct, [facility] [place] [address] [id number] [place] [id number] Sep, [facility] [place] [address] [id number] [place] [id number] Aug, [facility] [address] [id number], [place] [address] Aug, [facility] [place] [address] [id number] [place] [id number] Aug, [facility] [place] [address] [id number] [place] [id number] Jul, [facility] [address] [facility] [id number], [place] [address] Jul, [facility] [place] [address] [id number] [place] [id number] Jul, [facility] [address] [facility] [id number], [place] [address] Jul, [facility] [place] [address] [id number] [place] [id number] Jun, [facility] [address] [facility] [id number], [place] [address]- [address] Jun, [facility] [address] [id number][place] [id number] May, [facility] [address] [address] May, [facility] [place] [address] [id number], [place] [id number] May, [facility] [address] [facility] [id number], [place] [address]52- [address] May, [facility] [place] [address] [id number], [place] 638[address]3935 Apr, [facility] [place] [address] [id number] [place] [id number] Apr, [facility] [place] [address] [id number] [place] [id number] Mar, [facility] [place] [address] [id number] [place] [id number] Mar, [facility] [place] [address] [id number] [place] [id number] Feb, [facility] [place] [address] [id number] [place] [id number] Feb, [facility] [place] [address] [id number] [place] 11636[address]66 Jan, [facility] [place] [address] [id number] [place] [id number] Jan, [facility] [place] [address] [id number] [place] [id number] Jan, [facility] [address] [id number] [place] [id number] Jan, [facility] [address] [id number] [place] [id number] December, [facility] [address] [id number] [place] [id number] December, [facility] [address] [id number], [place] [address] Nov, [facility] [address] [id number] [place] [id number] Nov, [facility] [address] [id number] [place] [id number] Nov, [facility] [address] [id number] [place] [id number] Nov, [facility] [address] [id number] [place] [id number] Nov, [facility] [address] [facility] [id number], [place] [address] Oct, [facility] [address] [facility] [id number], [place] [address] Oct, [facility] [address] [id number] [place] [id number] Oct, [facility] [address] [id number] [place] [id number] Oct, [facility] [address] [id number] [place] [id number] Oct, [facility] [address] [id number] [place] [id number] Oct, [facility] [address] [id number] [place] [id number] Oct, [facility] [address] [id number] [place] [id number] Oct, [facility] [address] [id number] [place] [id number] Oct, [facility] [address] [facility] [id number], [place] [address] Oct, [facility] [address] [id number] [place] [id number] Sep, [facility] [address] [id number] [place] [id number] Sep, [facility] [address] [id number] [place] [id number] Aug, [facility] [address] [id number] [place] [id number] Aug, [facility] [address]005[address], [place] [address] Jul, [facility] [address] [id number] [place] [address] Jul, [facility] [address]65[place], [place] [address] Jul, [facility] [id number] [place] [address] Jul, [facility] [address], [place] [address] Jul, [facility] [address], [place] [address] Jul, [facility] [address]65[place], [place] [address] Jul, [facility] [address], [place] [address] Jul, [facility] [address], [place] [address] Jul, [facility] [address], [place] [address] Jul, [facility] [address] [facility] [id number] [place] [address] 19 Jul, 2011 [facility] [address] [facility] [id number], [place] [address] 16 Jul, 2011 [facility] [address] [facility] [id number], [place] [address] Jul, [facility] [address] [facility] [id number], [place] [address] Jul, 2011 IMMUNIZATIONS No Known Immunizations SOCIAL HISTORY Never Assessed REASON FOR VISIT Controlled Med Refill PLAN OF CARE VITAL SIGNS MEDICATIONS Unknown Medications RESULTS No Results PROCEDURES No Known procedures INSTRUCTIONS MEDICATIONS ADMINISTERED No Known Medications MEDICAL (GENERAL) HISTORY Type Description Date Medical History peripheral vascular disease s/p angioplasty w/ stent R leg Medical History hypertension Medical 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 Secondary to ATN from [facility] 4.3 Medical History HX of dry [...] Surgical History Left eye retinal eye repair ([facility]) 06/2014 Surgical History amputation, toe-right third toe ([facility]) 2013 Surgical History Right eye retinal eye repair ([facility]) 09/2014 Surgical History heart cath [...]
--- OUTSIDE RECORDS SUMMARY | 2018-06-20 11:02 | XMS REPORT ---
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 Active 3876743056311 Problem S/P coronary artery stent placement Z95.5 Active 449214777 Problem Chronic obstructive pulmonary disease, unspecified COPD type J44.9 Active 41770114 Problem Type 2 diabetes mellitus with diabetic neuropathy E11.40 Active 21803910 Problem Bilateral low back pain without sciatica M54.5 Active 831626781 Problem 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 Active 145977316 Problem 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 Active 832372107 Problem Hypercholesterolemia E78.0 Active 04294028 Problem Comprehensive diabetic foot examination, type 2 DM, encounter for E11.9 Active 58794639 Problem Type 2 diabetes mellitus with diabetic polyneuropathy E11.42 Active 908995234 Problem Obesity (BMI 30.0-34.9) E66.9 Active 922907306880570 Problem Personal history of carotid stenosis Z86.79 Active 766294459 Problem Aphasia R47.01 Active 02679000 Problem Chronic diarrhea K52.9 Active 295075921 Problem Uses walker Z99.89 Active 416007303 Problem Chronic fatigue R53.82 Active 37090891 Problem Mixed stress and urge urinary incontinence N39.46 Active 340118294 Problem Chronic pain syndrome G89.4 Active 306957147 Problem High risk medication use Z79.899 Active 771697566 Problem Osteomyelitis of right foot, unspecified chronicity M86.9 Active 75296955 Problem Fatigue, unspecified type R53.83 Active 27341833 Problem Diabetes type 2, uncontrolled E11.65 Active 767314136 Problem Full incontinence of feces R15.9 Active 671243117819787 Problem Other chronic pain G89.29 Active 34128183 Problem Functional diarrhea K59.1 Active 81047637 Problem Fecal urgency R15.2 Active 30872150 Problem Depression F32.9 Active 05594097 Problem CKD (chronic kidney disease), stage 3 (moderate) N18.3 Active 375987834 Problem Hyperlipidemia, unspecified hyperlipidemia E78.5 Active 47903548 Problem CKD (chronic kidney disease) stage 3, GFR 30-59 ml/min N18.3 Active 924680558 Problem Type 2 diabetes mellitus with diabetic peripheral angiopathy without gangrene E11.51 Active 155218155 Problem Pain in left shoulder M25.512 Active 11349668 Problem Insulin long-term use Z79.4 Active 028088994 Problem Essential hypertension I10 Active 11405456 Problem Type 2 diabetes mellitus with diabetic retinopathy, macular edema presence unspecified, with unspecified retinopathy severity E11.319 Active 34540707 Problem Chronic kidney disease, unspecified N18.9 Active 748375817 Problem Type 2 diabetes mellitus with foot ulcer E11.621 Active 091165409 Problem Frequent falls R29.6 Active 714443646 Problem GERD without esophagitis K21.9 Active 438466962 Problem Mixed hyperlipidemia E78.2 Active 150374396 ALLERGIES No Information ENCOUNTERS Encounter Location Date Diagnosis [facility] [address] [id number] Apr, [facility] [address] [id number] Mar, [facility] [id number] [place] [address] [id number] Feb, Other chronic pain G89.29 [facility] [id number] [place] [address] [id number] Feb, [facility] [address] [id number] Feb, [facility] [address] [id number] Feb, Diabetes type 2, uncontrolled E11.65 [facility] [address] [id number] Feb, Other chronic pain G89.29 [facility] [address] [id number] [place] [id number] Jan, [facility] [id number] [place] [id number] Jan, [facility] [id number] [place] [id number] Jan, [facility] [id number] [place] [id number] Jan, Other chronic pain G89.29 [facility] [id number] [place] [id number] December, Mixed stress and urge urinary incontinence N39.46 [facility] [id number] [place] [address] [id number] December, Chronic fatigue R53.82 [facility] [address] [place] [address] [id number] December, Other chronic pain G89.29 [facility] [address]005[address]100[place] [id number] December, Diabetes type 2, uncontrolled E11.65 ; [...] type J44.9 and Other chronic pain G89.29 [facility] [address] [facility] [id number][place] [id number] December, [facility] [address] [id number] [place] [id number] December, Medicare annual wellness visit, subsequent Z00.00 ; Type 2 diabetes mellitus with diabetic polyneuropathy E11.42 ; Chronic obstructive pulmonary disease, unspecified COPD type J44.9 ; Depression F32.9 ; Peripheral vascular disease I73.9 ; 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 ; Hypercholesterolemia E78.0 ; GERD without esophagitis K21.9 and Chronic kidney disease, unspecified N18.9 [id number] [place] [address] [id number] December, Mixed stress and urge urinary incontinence N39.46 ; Full incontinence of feces R15.9 ; Fecal urgency R15.2 ; Functional diarrhea K59.1 and Type 2 diabetes mellitus with diabetic neuropathy E11.40 [id number] [place] [address] [id number] Nov, Other chronic pain G89.[address] [id number] Oct, [address] [id number] Oct, [address] [id number] Oct, Other chronic pain G89.29 [id number] [place] [address] [id number] Sep, Other chronic pain G89.[address] [id number] Aug, CKD (chronic kidney disease), stage 3 (moderate) N18.3 ; Anemia, unspecified type D64.9 and Dilated pore of Ly L70.[address] [id number] Aug, Other chronic pain G89.29 ; Pain in left shoulder M25.512 ; High risk medication use Z79.899 ; Uses walker Z99.89 ; Diabetes type 2, uncontrolled E11.65 and Depression F32.9 [id number] [place] [address] [id number] Aug, Chronic diarrhea K52.[address] [id number] Aug, Chronic diarrhea K52.9 ; Type 2 diabetes mellitus with diabetic neuropathy E11.40 ; Diabetes type 2, uncontrolled E11.65 ; Insulin long-term use Z79.4 ; Chronic obstructive pulmonary disease, unspecified COPD type J44.9 ; Chronic pain syndrome G89.4 ; Pain in left shoulder M25.512 ; Uses walker Z99.89 ; S/P coronary artery stent placement Z95.5 ; Mixed hyperlipidemia E78.2 and Essential hypertension I10 [address] [place] [address] [id number] Aug, [address] [id number] [place] [address] [id number] Jul, Diabetes type 2, uncontrolled E11.65 [address] [id number] [place] [address] [id number] Jul, Diabetes type 2, uncontrolled E11.65 ; Type 2 diabetes mellitus with diabetic neuropathy E11.40 ; Insulin long-term use Z79.4 and Chronic obstructive pulmonary disease, unspecified COPD type J44.9 [id number] [place] [address] [id number] Jun, [id number] [place] [address] [id number] Jun, Essential hypertension I10 [address] [place] [address] [id number] Jun, Essential hypertension I10 [id number] [place] [address] [id number] Jun, Type 2 diabetes mellitus with diabetic neuropathy E11.40 ; Type 2 diabetes mellitus with diabetic polyneuropathy E11.42 ; S/P coronary artery stent placement Z95.5 ; Obesity (BMI 30.0-34.9) E66.9 ; Mixed hyperlipidemia E78.2 ; Frequent falls R29.6 ; Chronic obstructive pulmonary disease, unspecified COPD type J44.9 ; Essential hypertension I10 ; Insulin long-term use Z79.4 and High risk medication use Z79.899 [address] [place] [address] [id number] May, Diarrhea, unspecified type R19.7 ; Type 2 diabetes mellitus with diabetic neuropathy E11.40 ; Chronic obstructive pulmonary disease, unspecified COPD type J44.9 ; S/P coronary artery stent placement Z95.5 ; High risk medication use Z79.899 ; Essential hypertension I10 ; Encounter for administration of vaccine Z23 and Encounter for immunization Z23 [facility] [id number] [id number] May, Chronic obstructive pulmonary disease, unspecified COPD type J44.9 [facility] [address]00565100[place] [id number] May, Type 2 diabetes mellitus with diabetic polyneuropathy E11.42 ; Encounter for immunization Z23 ; Needs flu shot Z23 ; Comprehensive diabetic foot examination, type 2 DM, encounter for E11.9 and Obesity (BMI 30.0-34.9) E66.9 [address] [place] [address] [id number] May, [address] [place] [address] [id number] Apr, [address] [id number] [place] [address] [id number] Apr, Essential hypertension I10 and Aphasia R47.[address] [place] [address] [id number] Apr, [address] [id number] [place] [address] [id number] Apr, Type 2 diabetes mellitus with diabetic neuropathy E11.40 ; Frequent falls R29.6 ; Essential hypertension I10 ; S/P coronary artery stent placement Z95.5 ; High risk medication use Z79.899 ; Hyperlipidemia, unspecified hyperlipidemia E78.5 ; CKD (chronic kidney disease), stage 3 (moderate) N18.3 ; Pain in left shoulder M25.512 and Chronic obstructive pulmonary disease, unspecified COPD type J44.[address] [id number] [place] [id number] Mar, [address] [id number] [place] [address] [id number] Mar, Type 2 diabetes mellitus with diabetic polyneuropathy E11.42 ; Leg wound, left, initial encounter S81.802A ; Hx of shoulder surgery Z98.890 ; Acute pain of left shoulder M25.512 and Fall, initial encounter W19.XXXA [facility] [id number] [place] [address] [id number] Feb, Follow-up exam Z09 ; Hx of shoulder surgery Z98.890 ; Acute pain of left shoulder M25.512 ; Essential hypertension I10 and Leg wound, left, initial encounter S81.802A [facility] [id number] [place] [address] [id number] Feb, [facility] [address] [id number] Feb, [facility] [id number] [place] [address] [id number] Feb, Chronic obstructive pulmonary disease, unspecified COPD type J44.9 [facility] [id number] [place] [address] [id number] Feb, [facility] [id number] [place] [address] [id number] Jan, Generalized weakness R53.1 ; Exertional shortness of breath R06.02 and Fungal rash of trunk B36.9 [facility] [id number] [place] [address] [id number] Jan, [facility] [id number] [place] [address] [id number] Jan, [facility] [id number] [place] [address] [id number] Jan, [facility] [id number] [place] [address] [id number] Jan, [facility] [id number] [place] [address] [id number] December, High risk medication use Z79.899 [facility] [id number] [place] [address] [id number] December, Type 2 diabetes mellitus with diabetic neuropathy E11.40 [facility] [id number] [place] [address] [id number] December, High risk medication use Z79.899 [facility] [id number] [place] [address] [id number] 28 Apr, 2017 Diabetes type 2, uncontrolled E11.[address] [id number] [place] [id number] Nov, Medicare annual wellness visit, initial Z00.00 ; Bilateral low back pain without sciatica M54.5 ; Pain in left shoulder M25.512 ; Chronic pain syndrome G89.4 ; Type 2 diabetes mellitus with diabetic polyneuropathy E11.42 ; High risk medication use Z79.899 and Encounter for immunization Z23 [id number] [place] [address] [id number] Nov, Type 2 diabetes mellitus with diabetic neuropathy E11.40 ; 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 and CKD (chronic kidney disease), stage 3 (moderate) N18.[address] [place] [address] [id number] Oct, Type 2 diabetes mellitus with diabetic polyneuropathy E11.42 ; Chronic pain syndrome G89.4 ; Chronic obstructive pulmonary disease, unspecified COPD type J44.9 ; Chronic kidney disease, unspecified N18.9 and Rash R21 [address] [id number] [place] [id number] Oct, Type 2 diabetes mellitus with diabetic neuropathy E11.40 [address] [place] [address] [id number] Oct, Rash R21 and Impetigo L01.[address] [place] [address] [id number] Oct, Chronic pain syndrome G89.4 [address] [place] [address] [id number] Oct, [id number] [place] [address] [id number] Sep, Sebaceous cyst L72.3 [address] [place] [address] [id number] Sep, Sebaceous cyst L72.3 [address] [place] [address] [id number] Sep, Chronic pain syndrome G89.4 ; Pain in left shoulder M25.512 and Effusion of olecranon bursa, left M25.422 [facility] [address] [id number] [address] Aug, [facility] [id number] [place] [address] [id number] Aug, [facility] [id number] [place] [address] [id number] Aug, Mixed hyperlipidemia E78.2 and Chronic kidney disease, unspecified N18.9 [facility] [id number] [place] [address] [id number] Jul, Type 2 diabetes mellitus with diabetic neuropathy E11.40 ; Essential hypertension I10 and S/P coronary artery stent placement Z95.5 [facility] [id number] [place] [address] [id number] Jul, 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 [address] [id number] [place] [address] [id number] Jul, Diabetes type 2, uncontrolled E11.65 ; Essential hypertension I10 and 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 [facility] [id number] [place] [address] [id number] Jul, [facility] [id number] [place] [address] [id number] Jul, [facility] [id number] [place] [address] [id number] Jul, [facility] [id number] [place] [address] [id number] Jul, Chronic obstructive pulmonary disease, unspecified COPD type J44.9 [facility] [address] [place] [address] [id number] Jun, CKD (chronic kidney disease), stage 3 (moderate) N18.3 and Anemia, unspecified type D64.9 [facility] [id number] [place] [address] [id number] Jun, Type 2 diabetes mellitus with diabetic neuropathy E11.40 ; Decreased GFR R94.4 ; CKD (chronic kidney disease), stage 3 (moderate) N18.3 and Decreased hemoglobin R71.[address] [place] [address] [id number] Jun, CKD (chronic kidney disease), stage 3 (moderate) N18.3 and Anemia, unspecified type D64.9 [address] [place] [address] [id number] Jun, Type 2 diabetes mellitus with diabetic neuropathy E11.40 ; Decreased GFR R94.4 and CKD (chronic kidney disease), stage 3 (moderate) N18.3 [id number] [place] [address] [id number] Jun, Type 2 diabetes mellitus with diabetic neuropathy E11.40 and Essential hypertension I10 [id number] [place] [address] [id number] Jun, [id number] [place] [address] [id number] Jun, [id number] [place] [address] [id number] Jun, Type 2 diabetes mellitus with diabetic neuropathy E11.40 ; S/P coronary artery stent placement Z95.5 ; Chronic obstructive pulmonary disease, unspecified COPD type J44.9 ; Essential hypertension I10 ; GERD without esophagitis K21.9 ; Peripheral vascular disease I73.9 ; Mixed hyperlipidemia E78.2 and Hospital discharge follow-up Z09 [address] [place] [address] [id number] Jun, [id number] [place] [address] [id number] May, Depression F32.9 and Hyperlipidemia, unspecified hyperlipidemia E78.5 [facility] [address]00565100[place], [place] [address] May, [address] [id number] [place] [address] [id number] May, [address] [id number] [place] [address] [id number] May, Essential hypertension I10 ; Chronic pain [...] diabetic polyneuropathy E11.42 [facility] [id number] [place] [address] [id number] May, Hemoglobin decreased R71.0 and Decreased GFR R94.[address] [id number] May, Hemoglobin decreased R71.0 and Decreased GFR R94.[address] [id number] May, [address] [id number] May, [address] [id number] Apr, [address] [id number] Apr, Type 2 diabetes mellitus with foot [...] unspecified hyperlipidemia E78.5 and Essential hypertension I10 [id number] [place] [address] [id number] Apr, [id number] [place] [address] [id number] Mar, [address] [id number] [place] [address] [id number] Mar, [facility] [id number] [place] [address] [id number] Mar, [address] [id number] Feb, [facility] [id number] [place] [id number] Feb, [facility] [id number] [place] [address] [id number] Feb, [facility] [id number] [place] [address] [id number] Jan, Type 2 diabetes mellitus with diabetic polyneuropathy E11.42 ; Hypercholesterolemia E78.0 ; Chronic pain syndrome G89.4 ; Pain in left shoulder M25.512 and High risk medication use Z79.899 [facility] [id number] [place] [address] [id number] Jan, [facility] [id number] [place] [address] [id number] Jan, [facility] [id number] [place] [address] [id number] December, [facility] [id number] [place] [address] [id number] December, [facility] [id number] [place] [address] [id number] [phone] December, Diabetes type 2, uncontrolled E11.65 ; Type 2 diabetes mellitus with diabetic neuropathy E11.40 ; Peripheral vascular disease I73.9 ; 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 and 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 [facility] [id number] [place] [address] [id number] Nov, [facility] [id number] [place] [address] [id number] Nov, [facility] [id number] [place] [address] [id number] Nov, [facility] [id number] [place] [address] [id number] Nov, Right hip pain M25.551 [facility] [id number] [place] [address] [phone] Nov, [facility] [address] [id number] Nov, [facility] [address] [id number] [place] [id number] Nov, Diabetes with neurological manifestations, type II or unspecified type, 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.60 [facility] [address] [id number] [place] [id number] Nov, [facility] [address] [id number] [place] [id number] Nov, [facility] [address] [id number] [place] [id number] Oct, Diabetes type 2, uncontrolled E11.65 ; Type 2 diabetes mellitus with diabetic neuropathy, unspecified E11.40 and Low back pain M54.5 [facility] [address] [id number] [place] [id number] Oct, [facility] [address] [id number] [place] [id number] Oct, [facility] [address] [id number] [place] [id number] Oct, [facility] [address] [id number] [place] [id number] Sep, [facility] [id number] [place] [id number] Sep, [facility] [address] [facility] [id number], [place] [address] Sep, [facility] [address] [id number] [place]LL[place] [id number] Sep, [facility] [address] [id number] [place] [id number] Sep, [facility] [address] [facility] [id number] [place]LL[place] [id number] Aug, 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 [facility] [address] [id number] [place] [id number] Aug, [facility] [address] [id number] [place] [id number] Aug, Allergic rhinitis due to pollen J30.1 [facility] [place] [place] [place] [facility] [id number] [place] [id number] Jul, [facility] [id number] [place] [id number] Jul, [facility] [id number] [place] [id number] Jul, [facility] [address] [id number] [place] [id number] Jun, [facility] [id number] [place] [address] [id number] Jun, Thumb tendonitis M77.8 and Ringing in ear, bilateral H93.[address] [id number] [place] [id number] Jun, [facility] [id number] [place] [address] [id number] May, [place] [id number] [place] [address] [phone]- [phone] May, [place] [id number] [place] [address] [id number]- [phone] May, Pre-op evaluation Z01.818 ; Encounter for immunization Z23 ; Type 2 diabetes mellitus with diabetic peripheral angiopathy without gangrene E11.51 ; Insulin long-term use Z79.4 ; Type 2 diabetes mellitus with foot ulcer E11.621 ; Peripheral vascular disease I73.9 ; 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 ; S/P coronary artery stent placement Z95.5 ; Osteomyelitis of right foot, unspecified chronicity M86.9 and Chronic obstructive pulmonary disease, unspecified COPD type J44.9 [facility] [address] [place] [address] [phone] May, [address] [place] [address] [id number] May, [facility] [address] [place], [place] [address] [id number] May, Diabetes type 2, uncontrolled E11.65 ; Encounter for immunization Z23 ; Osteopenia M85.80 and Allergic rhinitis due to pollen J30.1 [facility] [id number] [place] [id number] May, Lumbago 724.2 [facility] [id number] [place] [address] [id number] Apr, [facility] [address] [id number] [id number] Apr, [facility] [id number] [place] [address] [id number] Apr, [facility] [id number] [place] [address] [id number] Apr, [facility] [address] [id number] 4876 Mar, [facility] [id number] [place] [address] [id number] Mar, [facility] [id number] [place] [address] [id number] Mar, [facility] [id number] [place] [address] [id number] Mar, [facility] [id number] [place] [address] [id number] Mar, [facility] [id number] [place] [address] 71209- 5270 Mar, [facility] [id number] [place] [address] [id number] Mar, [facility] [id number] [place] [address] [id number] Mar, Diabetes with neurological manifestations, type II or unspecified type, 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.60 and Severe obesity (BMI 35.0-35.9 with comorbidity) 278.01 [facility] [id number] [place] [address] [id number] Mar, [facility] [id number] [place] [address] 08102- 7945 Mar, [facility] [address] [address]- 2546 Feb, [facility] [address] [id number] [place] [id number] Feb, [facility] [id number] [place] [id number] Feb, [facility] [id number] [place] [id number] Feb, Diabetes with neurological manifestations, type II or unspecified type, 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.60 [facility] [id number] [place] [id number] Feb, [facility] [id number] [place] [address] 58837- 2546 Feb, [facility] [id number] [place] [id number] Feb, [facility] [id number] [place] [id number] Feb, Follow up V67.9 ; Diabetes with neurological manifestations, type II or unspecified type, 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.60 and Congestive heart failure 428.0 [facility] [id number] [place] [id number] Jan, [facility] [id number] [place] [id number] Jan, [facility] [id number] [place] [id number] Jan, [facility] [id number] [place] [id number] December, Otitis media with effusion 381.4 ; Left arm numbness 782.0 and Osteoporosis 733.00 [facility] [id number] [place] [id number] December, [facility] [id number] [place] [id number] Nov, [facility] [id number] [place] [id number] Nov, Serous otitis media 381.4 and Lumbago 724.2 [facility] [address] [id number] [address]- 7276 14 Nov, 2014 [facility] [place] [facility] [address] [id number] [address]- 9506 Nov, [facility] [address] [facility] [id number] [place] [id number] Oct, [facility] [place] [facility] [address] [facility] [id number], [place] [address]- 3316 Oct, [facility] [address] [facility] [id number] [place] [id number] Oct, [facility] [place] [facility] [address] [facility] [id number], [place] [address]- 7144 Oct, [facility] [address] [facility] [id number] [place]LL[place] [id number] Oct, [facility] [place] [facility] [address]00565100[place], [place] [address]- 0923 Oct, [facility] [place] [facility] [address] [id number], [place] [address]- 2112 Sep, [facility] [place] [facility] [address] [id number], [place] [address]- 8728 Sep, [facility] [address] [id number] [place] [id number] Sep, [facility] [place] [facility] [address] [id number], [place] [address]- 6506 Sep, [facility] [address] [facility] [id number] [place] [id number] Aug, [facility] [place] [facility] [address] [facility] [id number], [place] [address]- 3940 Aug, [facility] [address] [facility] [id number] [place] [id number] Aug, [facility] [place] [facility] [address] [facility] [id number], [place] [address]- 2546 Aug, [facility] [address] [facility] [id number] [place] [id number] Jul, [facility] [place] [facility] [address] [facility] [id number], [place] [address]- 9216 Jul, [facility] [address] [facility] [id number] [place] [id number] Jul, [facility] [place] [facility] [address] [facility] [id number], [place] [address] 2546 Jul, [facility] [address] [facility] [id number] [place] [id number] Jul, [facility] [place] [facility] [address] [facility] [id number], [place] [address]- 0847 Jul, [facility] [address] [facility] [id number] [place] [address] [id number] Jun, [facility] [place] [facility] [address] [facility] [id number], [place] [address]- 8379 Jun, [facility] [address] [id number] [place] [id number] May, [facility] [place] [facility] [address] [facility] [id number] [address]- 2141 May, [facility] [address] [facility] [id number] [place] [id number] May, [facility] [place] [facility] [address] [facility] [id number], [place] [address]- 2089 May, [facility] [address] [facility] [id number] [place] [id number] May, [facility] [place] [facility] [address] [facility] [id number], [place] [address]- 3611 May, [facility] [address] [facility] [id number] [place] [id number] May, [facility] [address] [facility] [id number] [place] [id number] May, [facility] [place] [facility] [address] [facility] [id number], [place] [address]- 9887 May, [facility] [place] [facility] [address] [facility] [id number] [address]- 0895 May, [facility] [address] [facility] [id number] [place] [id number] May, [facility] [place] [facility] [address] [facility] [id number] [address]- 5104 May, [facility] [place] [facility] [address] [facility] [id number][place] 668938- 9126 Apr, [facility] [address] [facility] [id number] [place] [id number] Apr, [facility] [place] [facility] [address] [facility] [id number], [place] [address]- 9198 Apr, [facility] [address] [id number] [place] [id number] Apr, [facility] [address] [facility] [id number] [place] 201423797 Apr, [facility] [place] [facility] [address]00565100[place], [place] [address]- 6709 Apr, [facility] [place] [facility] [address]00565100[place], [place] [address]- 1240 Apr, [facility] [address] [facility] [id number] [place] 984299990 Apr, [facility] [place] [facility] [address]00565100[place], [place] [address]- 9293 Apr, [facility] [address] [facility] [id number] [place] [id number] Apr, [facility] [place] [facility] [address] [facility] [id number], [place] [address]- 7070 Apr, [facility] [address] [facility] [id number] [place] 105536293 Apr, [facility] [place] [facility] [address] [facility] [id number], [place] [address]- 0449 Apr, [facility] [address] [facility] [id number] [place] 312920266 Apr, [facility] [place] [facility] [address]00565100[place], [place] 20349733- 8409 Apr, [facility] [address] [id number] [place] [id number] Apr, [facility] [place] [facility] [address] [facility] [id number] [place] [address]- 7995 Apr, [facility] [address] [id number] [place] [id number] Apr, [facility] [place] [facility] [address] [facility] [id number] [place] [address]- 8934 Apr, [facility] [address] [id number] [place] [id number] Mar, [facility] [place] [facility] [address] [facility] [id number] [address]- 4179 Mar, [facility] [address] [id number] [place] [id number] Mar, [facility] [address] [facility] [id number] [place] [id number] Mar, [facility] [place] [facility] [address] [facility] [id number], [place] [address]- 0844 Mar, [facility] [place] [facility] [address] [facility] [id number] [address]- 8108 Mar, [facility] [address] [facility] [id number] [place] [id number] Mar, [facility] [place] [facility] [address] [facility] [id number], [place] [address]- 1075 Mar, [facility] [address] [id number] [place] [id number] Mar, [facility] [place] [facility] [address] [facility] [id number] [address]- 4818 Mar, [facility] [address] [id number] [place] [id number] Mar, [facility] [place] [facility] [address] [facility] [id number], [place] [address]- 6961 Mar, [facility] [address] [id number] [place] [id number] Mar, [facility] [place] [facility] [address] [id number] [place] [address]- 1092 Mar, [facility] [address] [id number] [place] [id number] Mar, [facility] [place] [facility] [address] [id number] [place]- 0478 Mar, [facility] [address] [id number] [place] [id number] Mar, [facility] [place] [facility] [address] [id number] [place] [address]- 6087 Mar, [facility] [address] [id number] [place] [id number] Mar, [facility] [place] [facility] [address] [facility] [id number] [place] [address]- 7105 Mar, [facility] [address] [id number] [place] [id number] Feb, [facility] [place] [facility] [address] [facility] [id number] [place] [address]- 6372 Feb, [facility] [address] [id number] [place] [id number] Feb, [facility] [place] [facility] [address] [facility] [id number] [place] [address]- 9604 Feb, [facility] [address] [id number] [place] [id number] Feb, [facility] [place] [facility] [address] [facility] [id number] [place] [address]- 5479 Feb, [facility] [address] [id number] [place] [id number] Feb, [facility] [place] [facility] [address] [facility] [id number] [place] [address]- 3534 Feb, [facility] [address] [id number] [place] [id number] Feb, [facility] [place] [facility] [address] [facility] [id number] [place] [address]- 4353 Feb, [facility] [address] [id number] [place] [id number] Feb, [facility] [place] [facility] [address] [id number] [place] [address]- 4752 Feb, [facility] [address] [id number] [place] [id number] Feb, [facility] [place] [facility] [address] [facility] [id number] [place] [address]- 9101 Feb, [facility] [address] [id number] [place] [id number] Feb, [facility] [place] [facility] [address] [id number] [place] [address]- 5821 Feb, [facility] [address] [id number] [place] [id number] Feb, [facility] [place] [facility] [address] [facility] [id number] [place] [address]- 8885 Feb, [facility] [address] [id number] [place] [id number] Feb, [facility] [address] [id number] [place] [id number] Feb, [facility] [place] [facility] [address] [facility] [id number] [place] [address]- 7338 Feb, [facility] [place] [facility] [address] [facility] [id number] [place] [address]- 5570 Feb, [facility] [address] [id number] [place] [id number] Feb, [facility] [place] [facility] [address] [id number] [place] [address]- 1644 Feb, [facility] [address] [id number] [place] [id number] Feb, [facility] [place] [facility] [address] [id number] [place] [address]- 1662 Feb, [facility] [address] [id number] [place] [id number] Feb, [facility] [place] [facility] [address] [id number] [place] [address]- 2982 Feb, [facility] [address] [id number] [place] [id number] Jan, [facility] [place] [facility] [address] [id number] [place] [address]- 9861 Jan, [facility] [place] [facility] [address] [facility] [id number] [place] [address]- 2746 Jan, [facility] [place] [facility] [address] [id number] [place] [address]- 3231 Jan, [facility] [place] [facility] [address] [facility] [id number] [place] [address]- 0262 Jan, [facility] [place] [facility] [address] [facility] [id number] [place] [address]- 3503 Jan, [facility] [address] [id number] [place] [id number] Jan, [facility] [place] [facility] [address] [facility] [id number] [place] [address]- 2850 Jan, [facility] [place] [facility] [address] [facility] [id number], [place] [address]- 8682 Jan, [facility] [place] [facility] [address] [facility] [id number], [place] [address]- 0890 Jan, [facility] [address] [id number] [place] [id number] Jan, [facility] [address] [id number] [place] [id number] Jan, [facility] [place] [facility] [address] [id number], [place] [address]- 6621 Jan, [facility] [place] [facility] [address] [id number], [place] [address]- 8459 Jan, [facility] [address] [id number] [place] [id number] Jan, [facility] [address] [id number] [place] [id number] Jan, [facility] [place] [facility] [address] [id number] [place] [address]- 4806 Jan, [facility] [place] [facility] [address] [facility] [id number], [place] [address]- 3586 Jan, [facility] [place] [facility] [address] [facility] [id number] [place] [address]- 8353 Jan, [facility] [address] [facility] [id number] [place] [id number] December, [facility] [place] [facility] [address] [facility] [id number] [place] [address]- 1702 December, [facility] [place] [facility] [address] [facility] [id number] [place] [address]- 0701 December, [facility] [address] [facility] [id number] [place] [id number] December, [facility] [place] [facility] [address] [facility] [id number], [place] [address]- 5736 December, [facility] [address] [facility] [id number] [place] [id number] December, [facility] [place] [facility] [address] [facility] [id number], [place] [address]- 8970 December, [facility] [address] [facility] [id number] [place] 012121680 December, [facility] [place] [facility] [address] [facility] [id number], [place] [address]- 5426 December, [facility] [address] [facility] [id number] [place] [id number] Nov, [facility] [place] [facility] [address] [facility] [id number] [place] [address]- 8412 Nov, [facility] [address] [facility] [id number] [place] [id number] Nov, [facility] [place] [facility] [address] [facility] [id number] [place]- 3417 Nov, [facility] [address] [facility] [id number] [place] [address]- 6647 Nov, [facility] [place] [facility] [address] [facility] [id number] [place] [address]- 4510 Nov, [facility] [address] [facility] [id number] [place] [address]- 7240 Oct, [facility] [address] [facility] [id number] [place] [id number] Oct, [facility] [address] [id number] [place] [address]- 6405 Oct, [facility] [address] [facility] [id number] [place] [address] [id number] Oct, [facility] [address] [facility] [id number], [place] [address]- 4257 Oct, [facility] [id number] [place] [id number] Sep, [facility] [address] [facility] [id number], [place] [address]- 8890 Sep, [facility] [address] [id number] [place] [id number] Aug, [facility] [address]00565100[place], [place] [address]- 1470 Aug, [facility] [address] [facility] [id number] [place] [id number] Aug, [facility] [place] [facility] [address] [facility] [id number], [place] [address]- 8370 Aug, [facility] [place] [facility] [address] [facility] [id number], [place] [address]- 8954 Aug, [facility] [address] [facility] [id number] [place] [id number] Aug, [facility] [place] [facility] [address] [facility] [id number] [place] [address]- 2943 Aug, [facility] [place] [facility] [address] [facility] [id number], [place] [address]- 7921 Aug, [facility] [address] [id number] [place] [id number] Aug, [facility] [place] [facility] [address] [facility] [id number], [place] [address]- 7378 Aug, [facility] [address] [facility] [id number] [place] [id number] Jul, [facility] [place] [facility] [address] [facility] [id number], [place] [address]- 7827 Jul, [facility] [address] [facility] [id number] [place] [id number] Jul, [facility] [place] [facility] [address] [facility] [id number], [place] [address]- 8760 Jul, [facility] [address] [id number] [place] [id number] Jul, [facility] [place] [facility] [address]00565100[place], [place] [address]- 0328 Jul, [facility] [address] [facility] [id number] [place] [id number] Jul, [facility] [place] [facility] [address]00565100[place], [place] [address]- 5488 Jul, [facility] [address] [id number] [place] [id number] Jun, [facility] [place] [facility] [address] [id number], [place] [address]- 8230 Jun, [facility] [address] [facility] [id number] [place] [id number] Jun, [facility] [address] [id number] [address] Jun, [facility] [address] [facility] [id number], [place] [address] Jun, [facility] [address] [id number] [address] Jun, [facility] [place] [address] [id number] [place] [id number] Apr, [facility] [place] [address] [id number] [place] [id number] Mar, [facility] [place] [address] [id number] [place] [id number] Mar, [facility] [place] [address] [id number] [place] [id number] Feb, [facility] [place] [address] [id number] [place] [id number] Feb, [facility] [place] [address] [id number] [place] [id number] Feb, [facility] [place] [address] [id number] [place] [id number] December, [facility] [place] [address] [id number] [place] [id number] December, [facility] [address] [address] December, [facility] [place] [address] [id number] [place] [id number] December, [facility] [place] [address] [id number] [place] [id number] December, [facility] [place] [address] [id number] [place] [id number] Nov, [facility] [place] [address] [id number] [place] [id number] Nov, [facility] [place] [address] [id number] [place] [id number] Nov, [facility] [place] [address] [id number] [place] [id number] Oct, [facility] [place] [address] [id number] [place] [id number] Sep, [facility] [place] [address] [id number] [place] [id number] Aug, [facility] [address] [id number], [place] [address] Aug, [facility] [place] [address] [id number] [place] [id number] Aug, [facility] [place] [address] [id number] [place] [id number] Jul, [facility] [address] [facility] [id number], [place] [address] Jul, [facility] [place] [address] [id number] [place] [id number] Jul, [facility] [address] [facility] [id number][place] [address] [address] Jul, [facility] [place] [address] [id number] [place] [id number] Jun, [facility] [address] [facility] [id number][place] [address] Jun, [facility] [place] [address] [id number] [place] [id number] May, [facility] [address] [address] May, [facility] [place] [address] [id number] [place] [id number] May, [facility] [address] [facility] [id number] [address] [address] May, [facility] [place] [address] [id number] [place] [id number] Apr, [facility] [place] [address] [id number] [place] [id number] Apr, [facility] [place] [address] [id number] [place] [id number] Mar, [facility] [place] [address] [id number] [place] [id number] Mar, [facility] [place] [address] [id number] [place] [id number] Feb, [facility] [place] [address] [id number] [place] [id number] Feb, [facility] [place] [address] [id number] [place] [id number] Jan, [facility] [place] [address] [id number] [place] [id number] Jan, [facility] [place] [address] [id number] [place] [id number] Jan, [facility] [place] [address] [id number] [place] [id number] Jan, [facility] [place] [address] [id number] [place] [id number] December, [facility] [place] [address] [id number] [place] [id number] December, [facility] [address] [id number], [place] [address] Nov, [facility] [place] [address] [id number] [place] [id number] Nov, [facility] [place] [address] [id number] [place] [id number] Nov, [facility] [place] [address] [id number] [place] [id number] Nov, [facility] [place] [address] [id number] [place] [id number] Nov, [facility] [address] [facility] [id number], [place] [address] Oct, [facility] [address] [facility] [id number], [place] [address] Oct, [facility] [place] [address] [id number] [place] [id number] Oct, [facility] [address] [id number] [place] [id number] Oct, [facility] [address] [id number] [place] [id number] Oct, [facility] [address] [id number] [place] [id number] Oct, [facility] [place] [address] [id number] [place] [id number] Oct, [facility] [address] [id number] [place] [id number] Oct, [facility] [place] [address] [id number] [place] [id number] Oct, [facility] [address] [facility] [id number], [place] [address] Oct, [facility] [place] [address] [id number] [place] [id number] Sep, [facility] [place] [address] [id number] [place] [id number] Sep, [facility] [place] [address] [id number] [place] [id number] Aug, [facility] [place] [address] [id number] [place] [id number] Aug, [facility] [address], [place] [address] Jul, [facility] [id number] [place] [address] Jul, [facility] [id number], [place] [address] Jul, [facility] [id number] [place] [address] Jul, [facility] [id number] [id number] Jul, [facility] [id number] [address] Jul, [facility] [id number] [address] Jul, [facility] [id number] [address] Jul, [facility] [id number], [place] [address] Jul, [facility] [id number] [address] Jul, [facility] [address] [facility] [id number] [place] [address] 19 Jul, 2011 [facility] [address] [facility] [id number], [place] [address] 16 Jul, 2011 [facility] [address] [facility] [id number], [place] [address] 13 Jul, 2011 [facility] [address] [facility] [id number], [place] [address] 08 Jul, 2011 IMMUNIZATIONS No Known Immunizations [...] acute renal failure--2010. Secondary to ATN from [facility] 4.3 Medical History HX of dry [...] Surgical History Left eye retinal eye repair ([facility]) 06/2014 Surgical History amputation, toe-right third toe ([facility]) 2013 Surgical History Right eye retinal eye repair ([facility]) 09/2014 Surgical History heart [...]
--- OUTSIDE RECORDS SUMMARY | 2018-06-20 11:03 | XMS REPORT ---
Author Author SATINDER GOOD Organization [facility] Address [address] [place] [address] Care Team Providers Care Assistant Professor Of German Name Role Phone SATINDER GOOD Unavailable PROBLEMS Type Condition ICD9-CM Code VIV74-LU Code Onset Dates Condition Status SNOMED Code Problem Peripheral vascular disease I73.9 Active 269750290 Problem Coronary artery disease involving [place] coronary artery of [place]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 Active 7106309048784 Problem S/P coronary artery stent placement Z95.5 Active 089302302 Problem Chronic obstructive pulmonary disease, unspecified COPD type J44.9 Active 57519532 Problem Type 2 diabetes mellitus with diabetic neuropathy E11.40 Active 47882136 Problem Bilateral low back pain without sciatica M54.5 Active 516007933 Problem 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 Active 672341931 Problem 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 Active 854952274 Problem Hypercholesterolemia E78.0 Active 09203563 Problem Comprehensive diabetic foot examination, type 2 DM, encounter for E11.9 Active 54295267 Problem Type 2 diabetes mellitus with diabetic polyneuropathy E11.42 Active 373022397 Problem Obesity (BMI 30.0-34.9) E66.9 Active 927910822042818 Problem Personal history of carotid stenosis Z86.79 Active 489434049 Problem Aphasia R47.01 Active 68277509 Problem Chronic diarrhea K52.9 Active 322387990 Problem Uses walker Z99.89 Active 717905775 Problem Chronic fatigue R53.82 Active 48238397 Problem Mixed stress and urge urinary incontinence N39.46 Active 184275007 Problem Chronic pain syndrome G89.4 Active 075235266 Problem High risk medication use Z79.899 Active 731071096 Problem Osteomyelitis of right foot, unspecified chronicity M86.9 Active 00249265 Problem Fatigue, unspecified type R53.83 Active 00955276 Problem Diabetes type 2, uncontrolled E11.65 Active 316738277 Problem Full incontinence of feces R15.9 Active 193932732137347 Problem Other chronic pain G89.29 Active 06680020 Problem Functional diarrhea K59.1 Active 78446817 Problem Fecal urgency R15.2 Active 75101937 Problem Depression F32.9 Active 27071061 Problem CKD (chronic kidney disease), stage 3 (moderate) N18.3 Active 704923671 Problem Hyperlipidemia, unspecified hyperlipidemia E78.5 Active 99755172 Problem CKD (chronic kidney disease) stage 3, GFR 30-59 ml/min N18.3 Active 082911126 Problem Type 2 diabetes mellitus with diabetic peripheral angiopathy without gangrene E11.51 Active 910109347 Problem Pain in left shoulder M25.512 Active 56103006 Problem Insulin long-term use Z79.4 Active 109946675 Problem Essential hypertension I10 Active 04393297 Problem Type 2 diabetes mellitus with diabetic retinopathy, macular edema presence unspecified, with unspecified retinopathy severity E11.319 Active 63194800 Problem Chronic kidney disease, unspecified N18.9 Active 329569360 Problem Type 2 diabetes mellitus with foot ulcer E11.621 Active 363948333 Problem Frequent falls R29.6 Active 017561886 Problem GERD without esophagitis K21.9 Active 564900022 Problem Mixed hyperlipidemia E78.2 Active 836848717 ALLERGIES No Information ENCOUNTERS Encounter Location Date Diagnosis [facility] [address] [id number] Apr, [facility] [place] [address] [id number] Mar, [facility] [place] [id number] [place] [address] [id number] Feb, Other chronic pain G89.29 [facility] [id number] [place] [address] [id number] 27 Feb, [address] [facility] [place] [address] [id number] Feb, [facility] [address] [id number] Feb, Diabetes type 2, uncontrolled E11.65 [facility] [address] [id number] Feb, Other chronic pain G89.29 [facility] [address] [id number] [place] [id number] Jan, [facility] [id number] [place] [id number] Jan, [facility] [id number] [place] [id number] Jan, [facility] [id number] [place] [id number] Jan, Other chronic pain G89.29 [facility] [id number] [place] [id number] December, Mixed stress and urge urinary incontinence N39.46 [facility] [id number] [place] [address] [id number] December, Chronic fatigue R53.82 [facility] [address] [place] [address] [id number] December, Other chronic pain G89.29 [facility] [address] [id number] December, Diabetes type 2, uncontrolled E11.65 ; [...] type J44.9 and Other chronic pain G89.29 [facility] [address] [facility] [id number] [place] [address] December, [facility] [address] [id number] [place] [id number] December, Medicare annual wellness visit, subsequent Z00.00 ; Type 2 diabetes mellitus with diabetic polyneuropathy E11.42 ; Chronic obstructive pulmonary disease, unspecified COPD type J44.9 ; Depression F32.9 ; Peripheral vascular disease I73.9 ; Coronary artery disease involving [place] coronary artery of [place]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 ; Hypercholesterolemia E78.0 ; GERD without esophagitis K21.9 and Chronic kidney disease, unspecified N18.9 [place] [id number] [place] [address] [id number] December, Mixed stress and urge urinary incontinence N39.46 ; Full incontinence of feces R15.9 ; Fecal urgency R15.2 ; Functional diarrhea K59.1 and Type 2 diabetes mellitus with diabetic neuropathy E11.40 [place] [id number] [place] [address] [id number] Nov, Other chronic pain G89.[address] [id number] Oct, [address] [id number] Oct, [address] [id number] Oct, Other chronic pain G89.29 [place] [id number] [place] [address] [id number] Sep, Other chronic pain G89.[address] [id number] Aug, CKD (chronic kidney disease), stage 3 (moderate) N18.3 ; Anemia, unspecified type D64.9 and Dilated pore of Ly L70.[address] [id number] Aug, Other chronic pain G89.29 ; Pain in left shoulder M25.512 ; High risk medication use Z79.899 ; Uses walker Z99.89 ; Diabetes type 2, uncontrolled E11.65 and Depression F32.9 [place] [id number] [place] [address] [id number] Aug, Chronic diarrhea K52.[address] [id number] Aug, Chronic diarrhea K52.9 ; Type 2 diabetes mellitus with diabetic neuropathy E11.40 ; Diabetes type 2, uncontrolled E11.65 ; Insulin long-term use Z79.4 ; Chronic obstructive pulmonary disease, unspecified COPD type J44.9 ; Chronic pain syndrome G89.4 ; Pain in left shoulder M25.512 ; Uses walker Z99.89 ; S/P coronary artery stent placement Z95.5 ; Mixed hyperlipidemia E78.2 and Essential hypertension I10 [address] [place] [address] [id number] Aug, [place] [id number] [place] [address] [id number] Jul, Diabetes type 2, uncontrolled E11.65 [place] [id number] [place] [address] [id number] Jul, Diabetes type 2, uncontrolled E11.65 ; Type 2 diabetes mellitus with diabetic neuropathy E11.40 ; Insulin long-term use Z79.4 and Chronic obstructive pulmonary disease, unspecified COPD type J44.9 [place] [id number] [place] [address] [id number] Jun, [place] [id number] [place] [address] [id number] Jun, Essential hypertension I10 [address] [place] [address] [id number] Jun, Essential hypertension I10 [place] [address] [place] [address] [id number] Jun, Type 2 diabetes mellitus with diabetic neuropathy E11.40 ; Type 2 diabetes mellitus with diabetic polyneuropathy E11.42 ; S/P coronary artery stent placement Z95.5 ; Obesity (BMI 30.0-34.9) E66.9 ; Mixed hyperlipidemia E78.2 ; Frequent falls R29.6 ; Chronic obstructive pulmonary disease, unspecified COPD type J44.9 ; Essential hypertension I10 ; Insulin long-term use Z79.4 and High risk medication use Z79.899 [address] [place] [address] [id number] May, Diarrhea, unspecified type R19.7 ; Type 2 diabetes mellitus with diabetic neuropathy E11.40 ; Chronic obstructive pulmonary disease, unspecified COPD type J44.9 ; S/P coronary artery stent placement Z95.5 ; High risk medication use Z79.899 ; Essential hypertension I10 ; Encounter for administration of vaccine Z23 and Encounter for immunization Z23 [facility] [id number] [id number] May, Chronic obstructive pulmonary disease, unspecified COPD type J44.9 [facility] [address]00565100[place] [id number] May, Type 2 diabetes mellitus with diabetic polyneuropathy E11.42 ; Encounter for immunization Z23 ; Needs flu shot Z23 ; Comprehensive diabetic foot examination, type 2 DM, encounter for E11.9 and Obesity (BMI 30.0-34.9) E66.9 [address] [place] [address] [id number] May, [address] [place] [address] [id number] Apr, [place] [id number] [place] [address] [id number] Apr, Essential hypertension I10 and Aphasia R47.[address] [place] [address] [id number] Apr, [place] [address] [place] [address] [id number] Apr, Type 2 diabetes mellitus with diabetic neuropathy E11.40 ; Frequent falls R29.6 ; Essential hypertension I10 ; S/P coronary artery stent placement Z95.5 ; High risk medication use Z79.899 ; Hyperlipidemia, unspecified hyperlipidemia E78.5 ; CKD (chronic kidney disease), stage 3 (moderate) N18.3 ; Pain in left shoulder M25.512 and Chronic obstructive pulmonary disease, unspecified COPD type J44.[address] [id number] [place] [id number] Mar, [place] [id number] [place] [address] [id number] Mar, Type 2 diabetes mellitus with diabetic polyneuropathy E11.42 ; Leg wound, left, initial encounter S81.802A ; Hx of shoulder surgery Z98.890 ; Acute pain of left shoulder M25.512 and Fall, initial encounter W19.XXXA [facility] [id number] [place] [address] [id number] Feb, Follow-up exam Z09 ; Hx of shoulder surgery Z98.890 ; Acute pain of left shoulder M25.512 ; Essential hypertension I10 and Leg wound, left, initial encounter S81.802A [facility] [id number] [place] [address] [id number] Feb, [facility] [address] [id number] Feb, [facility] [id number] [place] [address] [id number] Feb, Chronic obstructive pulmonary disease, unspecified COPD type J44.9 [facility] [id number] [place] [address] [id number] Feb, [facility] [id number] [place] [address] [id number] Jan, Generalized weakness R53.1 ; Exertional shortness of breath R06.02 and Fungal rash of trunk B36.9 [facility] [place] [id number] [place] [address] [id number] Jan, [facility] [id number] [place] [address] [id number] Jan, [facility] [id number] [place] [address] [id number] Jan, [facility] [id number] [place] [address] [id number] Jan, [facility] [id number] [place] [address] [id number] December, High risk medication use Z79.899 [facility] [id number] [place] [address] [id number] December, Type 2 diabetes mellitus with diabetic neuropathy E11.40 [facility] [id number] [place] [address] [id number] December, High risk medication use Z79.899 [facility] [place] [id number] [place] [address] [id number] 28 Apr, 2017 Diabetes type 2, uncontrolled E11.[address] [id number] [place] [id number] Nov, Medicare annual wellness visit, initial Z00.00 ; Bilateral low back pain without sciatica M54.5 ; Pain in left shoulder M25.512 ; Chronic pain syndrome G89.4 ; Type 2 diabetes mellitus with diabetic polyneuropathy E11.42 ; High risk medication use Z79.899 and Encounter for immunization Z23 [place] [id number] [place] [address] [id number] Nov, Type 2 diabetes mellitus with diabetic neuropathy E11.40 ; Coronary artery disease involving [place] coronary artery of [place]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 and CKD (chronic kidney disease), stage 3 (moderate) N18.[address] [place] [address] [id number] Oct, Type 2 diabetes mellitus with diabetic polyneuropathy E11.42 ; Chronic pain syndrome G89.4 ; Chronic obstructive pulmonary disease, unspecified COPD type J44.9 ; Chronic kidney disease, unspecified N18.9 and Rash R21 [address] [id number] [id number] Oct, Type 2 diabetes mellitus with diabetic neuropathy E11.40 [address] [place] [address] [id number] Oct, Rash R21 and Impetigo L01.[address] [place] [address] [id number] Oct, Chronic pain syndrome G89.[address] [place] [address] [id number] Oct, [id number] [place] [address] [id number] Sep, Sebaceous cyst L72.[address] [place] [address] [id number] Sep, Sebaceous cyst L72.3 [address] [place] [address] [id number] Sep, Chronic pain syndrome G89.4 ; Pain in left shoulder M25.512 and Effusion of olecranon bursa, left M25.422 [facility] [address] [id number] [address] Aug, [facility] [id number] [place] [address] [id number] Aug, [facility] [id number] [place] [address] [id number] Aug, Mixed hyperlipidemia E78.2 and Chronic kidney disease, unspecified N18.9 [facility] [id number] [place] [address] [id number] Jul, Type 2 diabetes mellitus with diabetic neuropathy E11.40 ; Essential hypertension I10 and S/P coronary artery stent placement Z95.5 [facility] [id number] [place] [address] [id number] Jul, 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 [place] [address] [place] [address] [id number] Jul, Diabetes type 2, uncontrolled E11.65 ; Essential hypertension I10 and 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 [facility] [id number] [place] [address] [id number] Jul, [facility] [id number] [place] [address] [id number] Jul, [facility] [address] [place] [address] [id number] Jul, [facility] [id number] [place] [address] [id number] Jul, Chronic obstructive pulmonary disease, unspecified COPD type J44.9 [facility] [address] [place] [address] [id number] Jun, CKD (chronic kidney disease), stage 3 (moderate) N18.3 and Anemia, unspecified type D64.9 [facility] [id number] [place] [address] [id number] Jun, Type 2 diabetes mellitus with diabetic neuropathy E11.40 ; Decreased GFR R94.4 ; CKD (chronic kidney disease), stage 3 (moderate) N18.3 and Decreased hemoglobin R71.[address] [place] [address] [id number] Jun, CKD (chronic kidney disease), stage 3 (moderate) N18.3 and Anemia, unspecified type D64.[address] [place] [address] [id number] Jun, Type 2 diabetes mellitus with diabetic neuropathy E11.40 ; Decreased GFR R94.4 and CKD (chronic kidney disease), stage 3 (moderate) N18.3 [place] [id number] [place] [address] [id number] Jun, Type 2 diabetes mellitus with diabetic neuropathy E11.40 and Essential hypertension I10 [place] [address] [place] [address] [id number] Jun, [place] [address] [place] [address] [id number] Jun, [place] [address] [place] [address] [id number] Jun, Type 2 diabetes mellitus with diabetic neuropathy E11.40 ; S/P coronary artery stent placement Z95.5 ; Chronic obstructive pulmonary disease, unspecified COPD type J44.9 ; Essential hypertension I10 ; GERD without esophagitis K21.9 ; Peripheral vascular disease I73.9 ; Mixed hyperlipidemia E78.2 and Hospital discharge follow-up Z09 [address] [place] [address] [id number] Jun, [place] [address] [place] [address] [id number] May, Depression F32.9 and Hyperlipidemia, unspecified hyperlipidemia E78.5 [facility] [address] [address] May, [place] [address] [place] [address] [id number] May, [place] [address] [place] [address] [id number] May, Essential hypertension I10 ; Chronic pain syndrome G89.4 ; Pain in left shoulder M25.512 ; High risk medication use Z79.899 ; Chronic obstructive pulmonary disease, unspecified COPD type J44.9 ; S/P coronary artery stent placement Z95.5 ; Personal history of carotid stenosis Z86.79 ; Hyperlipidemia, unspecified hyperlipidemia E78.5 ; Decreased GFR R94.4 and Type 2 diabetes mellitus with diabetic polyneuropathy E11.42 [facility] [id number] [place] [address] [id number] May, Hemoglobin decreased R71.0 and Decreased GFR R94.[address] [id number] May, Hemoglobin decreased R71.0 and Decreased GFR R94.[address] [id number] May, [address] [id number] May, [address] [id number] Apr, [address] [id number] Apr, Type 2 diabetes mellitus with foot [...] unspecified hyperlipidemia E78.5 and Essential hypertension I10 [place] [address] [place] [address] [id number] Apr, [place] [address] [place] [address] [id number] Mar, [place] [address] [place] [address] [id number] Mar, [facility] [id number] [place] [address] [id number] Mar, [address] [id number] Feb, [facility] [id number] [place] [id number] Feb, [facility] [id number] [place] [address] [id number] Feb, [facility] [id number] [place] [address] [id number] Jan, Type 2 diabetes mellitus with diabetic polyneuropathy E11.42 ; Hypercholesterolemia E78.0 ; Chronic pain syndrome G89.4 ; Pain in left shoulder M25.512 and High risk medication use Z79.899 [facility] [address] [place] [address] [id number] Jan, [facility] [address] [place] [address] [id number] Jan, [facility] [address] [place] [address] [id number] December, [facility] [address] [place] [address] [id number] December, [facility] [id number] [place] [address] [phone] December, Diabetes type 2, uncontrolled E11.65 ; Type 2 diabetes mellitus with diabetic neuropathy E11.40 ; Peripheral vascular disease I73.9 ; 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 and 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 [facility] [id number] [place] [address] [id number] Nov, [facility] [id number] [place] [address] [id number] Nov, [facility] [id number] [place] [address] [id number] Nov, [facility] [id number] [place] [address] [id number] Nov, Right hip pain M25.551 [facility] [id number] [place] [address] [id number]- 3035 Nov, [facility] [address] [id number]- [id number] Nov, [facility] [address] [id number] [place] [id number] Nov, Diabetes with neurological manifestations, type II or unspecified type, 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.60 [facility] [address] [id number] [place] [id number] Nov, [facility] [address] [id number] [place] [id number] Nov, [facility] [address] [id number] [place] [id number] Oct, Diabetes type 2, uncontrolled E11.65 ; Type 2 diabetes mellitus with diabetic neuropathy, unspecified E11.40 and Low back pain M54.5 [facility] [address] [id number] [place] [id number] Oct, [facility] [address] [id number] [place] [id number] Oct, [facility] [address] [id number] [place] [id number] Oct, [facility] [address] [id number] [place] [id number] Sep, [facility] [place] [id number] [place] [id number] Sep, [facility] [address] [facility] [id number] [address] Sep, [facility] [address] [id number] [place] [id number] Sep, [facility] [address] [id number] [place] [id number] Sep, [facility] [address] [facility] [id number] [place] [id number] Aug, 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 [facility] [facility] [address] [id number] [place] [id number] Aug, [facility] [address] [id number] [place] [id number] Aug, Allergic rhinitis due to pollen J30.[address] [place] [address] [facility] [id number] [id number] Jul, [facility] [id number] [place] [id number] Jul, [facility] [id number] [place] [id number] Jul, [facility] [address] [id number] [place] [id number] Jun, [facility] [id number] [place] [address] [id number] Jun, Thumb tendonitis M77.8 and Ringing in ear, bilateral H93.[address] [id number][place] [id number] Jun, [facility] [id number] [place] [address] [id number] May, [place] [id number] [place] [address] 46[address] May, [place] [id number] [place] [address] [phone]- [phone] May, Pre-op evaluation Z01.818 ; Encounter for immunization Z23 ; Type 2 diabetes mellitus with diabetic peripheral angiopathy without gangrene E11.51 ; Insulin long-term use Z79.4 ; Type 2 diabetes mellitus with foot ulcer E11.621 ; Peripheral vascular disease I73.9 ; Coronary artery disease involving [place] coronary artery of [place]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 ; S/P coronary artery stent placement Z95.5 ; Osteomyelitis of right foot, unspecified chronicity M86.9 and Chronic obstructive pulmonary disease, unspecified COPD type J44.9 [facility] [address] [place] [place] [address] 67009- 6923 May, [id number] [place] [address] [phone] May, [facility] [id number] [place] [address] [phone] May, Diabetes type 2, uncontrolled E11.65 ; Encounter for immunization Z23 ; Osteopenia M85.80 and Allergic rhinitis due to pollen J30.1 [facility] [id number] [place] [id number] May, Lumbago 724.2 [facility] [id number] [place] [address] [phone] Apr, [facility] [address] [id number] [id number] Apr, [facility] [id number] [place] [address] [phone] Apr, [facility] [id number] [place] [address] [phone] Apr, [facility] [address] [id number]- 7741 Mar, [facility] [id number] [place] [address] [id number] Mar, [facility] [id number] [place] [address] [phone] Mar, [facility] [id number] [place] [address] [id number] Mar, [facility] [id number] [place] [address] [id number] Mar, [facility] [id number] [place] [address] 26922- 2200 Mar, [facility] [id number] [place] [address] [phone] Mar, [facility] [id number] [place] [address] [phone] Mar, Diabetes with neurological manifestations, type II or unspecified type, 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.60 and Severe obesity (BMI 35.0-35.9 with comorbidity) 278.01 [facility] [id number] [place] [address] [phone] Mar, [facility] [id number] [place] [address] 61939- 3951 Mar, [facility] [address] 23047- 2546 Feb, [facility] [address] [id number] [place] [id number] Feb, [facility] [id number] [place] [id number] Feb, [facility] [id number] [place] [id number] Feb, Diabetes with neurological manifestations, type II or unspecified type, 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.60 [facility] [id number] [place] [id number] Feb, [facility] [address] [place] [address] 75520- 2546 Feb, [facility] [id number] [place] [id number] Feb, [facility] [place] [id number] [place] [id number] Feb, Follow up V67.9 ; Diabetes with neurological manifestations, type II or unspecified type, 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.60 and Congestive heart failure 428.0 [facility] [id number] [place] [id number] Jan, [facility] [id number] [place] [id number] Jan, [facility] [id number] [place] [id number] Jan, [facility] [id number] [place] [id number] December, Otitis media with effusion 381.4 ; Left arm numbness 782.0 and Osteoporosis 733.00 [facility] [id number] [place] [id number] December, [facility] [id number] [place] [id number] Nov, [facility] [id number] [place] [id number] Nov, Serous otitis media 381.4 and Lumbago 724.2 [facility] [address] [id number] [address]- 9766 14 Nov, 2014 [facility] [place] [facility] [address] [id number] [place] [address]- 6086 Nov, [facility] [address] [facility] [id number] [place] [id number] Oct, [facility] [place] [facility] [address] [facility] [id number] [place] [address]- 1006 Oct, [facility] [address] [facility] [id number] [place] [id number] Oct, [facility] [place] [facility] [address] [facility] [id number] [place] [address]- 3621 Oct, [facility] [address] [facility] [id number] [place] [id number] Oct, [facility] [place] [facility] [address]005[address]100[place] [address]- 1346 Oct, [facility] [place] [facility] [address] [id number] [address]- 0436 Sep, [facility] [place] [facility] [address] [id number] [address]- 6850 Sep, [facility] [address] [id number] [place] [id number] Sep, [facility] [place] [facility] [address] [id number] [address]- 5106 Sep, [facility] [address] [facility] [id number] [place] [id number] Aug, [facility] [place] [facility] [address] [facility] [id number] [place] [address]- 7332 Aug, [facility] [address] [facility] [id number] [place] [id number] Aug, [facility] [place] [facility] [address] [facility] [id number] [place] [address]- 2546 Aug, [facility] [address] [facility] [id number] [place] [id number] Jul, [facility] [place] [facility] [address] [facility] [id number] [place] [address]- 7916 Jul, [facility] [address] [facility] [id number] [place] [id number] Jul, [facility] [place] [facility] [address] [facility] [id number] [place] [address] 2546 Jul, [facility] [address] [facility] [id number] [place] [id number] Jul, [facility] [place] [facility] [address] [facility] [id number] [place] [address]- 5084 Jul, [facility] [address] [facility] [id number] [place] [address] [id number] Jun, [facility] [place] [facility] [address] [facility] [id number] [place] [address]- 3620 Jun, [facility] [address] [id number] [place] [id number] May, [facility] [place] [facility] [address] [facility] [id number] [place] [address]- 4937 May, [facility] [address] [facility] [id number] [place] [id number] May, [facility] [place] [facility] [address] [facility] [id number] [place] [address]- 6608 May, [facility] [address] [facility] [id number] [place] [id number] May, [facility] [place] [facility] [address] [facility] [id number] [place] [address]- 5468 May, [facility] [address] [facility] [id number] [place] [id number] May, [facility] [address] [facility] [id number] [place] [id number] May, [facility] [place] [facility] [address] [facility] [id number] [place] [address]- 3215 May, [facility] [place] [facility] [address] [facility] [id number] [place] [address]- 5291 May, [facility] [address] [facility] [id number] [place] 515523483 May, [facility] [place] [facility] [address] [facility] [id number] [place] [address]- 8519 May, [facility] [place] [facility] [address] [facility] [id number] [place] 2927[place]- 3983 Apr, [facility] [address] [facility] [id number] [place] [id number] Apr, [facility] [place] [facility] [address] [facility] [id number] [place] [address]- 5399 Apr, [facility] [address] [id number] [place] [id number] Apr, [facility] [address] [facility] [id number] [place] [id number] Apr, [facility] [place] [facility] [address]65100[place] [address]- 4124 Apr, [facility] [place] [facility] [address]65100[place] [address]- 1736 Apr, [facility] [address] [facility] [id number] [place] [id number] Apr, [facility] [place] [facility] [address]65100[place] [address]- 9557 Apr, [facility] [address] [facility] [id number] [place] [id number] Apr, [facility] [place] [facility] [address] [facility] [id number] [place] [address]- 4341 Apr, [facility] [address] [facility] [id number] [place] 868476917 Apr, [facility] [place] [facility] [address] [facility] [id number] [place] [address]- 6653 Apr, [facility] [address] [facility] [id number] [place] [id number] Apr, [facility] [place] [facility] [address]65100[place] [place] 90804634- 7319 Apr, [facility] [address] [id number] [place] [id number] Apr, [facility] [place] [facility] [address] [facility] [id number] [place] [address]- 3574 Apr, [facility] [address] [id number] [place] [id number] Apr, [facility] [place] [facility] [address] [facility] [id number] [place] [address]- 2623 Apr, [facility] [address] [id number] [place] [id number] Mar, [facility] [place] [facility] [address] [facility] [id number] [place] [address]- 2043 Mar, [facility] [address] [id number] [place] [id number] Mar, [facility] [address] [facility] [id number] [place] 447026239 Mar, [facility] [place] [facility] [address] [facility] [id number] [place] [address]- 6171 Mar, [facility] [place] [facility] [address] [facility] [id number] [place] [address]- 6589 Mar, [facility] [address] [facility] [id number] [place] [id number] Mar, [facility] [place] [facility] [address] [facility] [id number] [place] [address]- 4646 Mar, [facility] [address] [id number] [place] [id number] Mar, [facility] [place] [facility] [address] [facility] [id number] [place] [address]- 0099 Mar, [facility] [address] [id number] [place] [id number] Mar, [facility] [place] [facility] [address] [facility] [id number] [place] [address]- 3047 Mar, [facility] [address] [id number] [place] [id number] Mar, [facility] [place] [facility] [address] [id number] [place] [address]- 4846 Mar, [facility] [address] [id number] [place] [id number] Mar, [facility] [place] [facility] [address] [id number] [place]- 1811 Mar, [facility] [address] [id number] [place] [id number] Mar, [facility] [place] [facility] [address] [id number] [place] [address]- 0650 Mar, [facility] [address] [id number] [place] [id number] Mar, [facility] [place] [facility] [address] [facility] [id number] [place] [address]- 7210 Mar, [facility] [address] [id number] [place] [id number] Feb, [facility] [place] [facility] [address] [facility] [id number] [place] [address]- 3107 Feb, [facility] [address] [id number] [place] [id number] Feb, [facility] [place] [facility] [address] [facility] [id number] [place] [address]- 8265 Feb, [facility] [address] [id number] [place] [id number] Feb, [facility] [place] [facility] [address] [facility] [id number] [place] [address]- 7022 Feb, [facility] [address] [id number] [place] [id number] Feb, [facility] [place] [facility] [address] [facility] [id number] [place] [address]- 1278 Feb, [facility] [address] [id number] [place] [id number] Feb, [facility] [place] [facility] [address] [facility] [id number] [place] [address]- 1950 Feb, [facility] [address] [id number] [place] [id number] Feb, [facility] [place] [facility] [address] [id number] [place] [address]- 9477 Feb, [facility] [address] [id number] [place] [id number] Feb, [facility] [place] [facility] [address] [facility] [id number] [place] [address]- 0849 Feb, [facility] [address] [id number] [place] [id number] Feb, [facility] [place] [facility] [address] [id number] [place] [address]- 8357 Feb, [facility] [address] [id number] [place] [id number] Feb, [facility] [place] [facility] [address] [facility] [id number] [place] [address]- 5397 Feb, [facility] [address] [id number] [place] [id number] Feb, [facility] [address] [id number] [place] [id number] Feb, [facility] [place] [facility] [address] [facility] [id number] [place] [address]- 5385 Feb, [facility] [place] [facility] [address] [facility] [id number] [place] [address]- 3567 Feb, [facility] [address] [id number] [place] [id number] Feb, [facility] [place] [facility] [address] [id number] [place] [address]- 2684 Feb, [facility] [address] [id number] [place] [id number] Feb, [facility] [place] [facility] [address] [id number] [place] [address]- 0139 Feb, [facility] [address] [id number] [place] [address]23[place] Feb, [facility] [place] [facility] [address] [id number] [place] [address]- 6020 Feb, [facility] [address] [id number] [place] [id number] Jan, [facility] [place] [facility] [address] [id number] [place] [address]- 4126 Jan, [facility] [place] [facility] [address] [facility] [id number] [place] [address]- 4896 Jan, [facility] [place] [facility] [address] [id number] [place] [address]- 2554 Jan, [facility] [place] [facility] [address] [facility] [id number] [place] [address]- 0951 Jan, [facility] [place] [facility] [address] [facility] [id number] [place] [address]- 3858 Jan, [facility] [address] [id number] [place] 061493491 Jan, [facility] [place] [facility] [address] [facility] [id number] [place] [address]- 5519 Jan, [facility] [place] [facility] [address] [facility] [id number] [place] [address]- 5907 Jan, [facility] [place] [facility] [address] [facility] [id number] [place] [address]- 2425 Jan, [facility] [address] [id number] [place] 158166240 Jan, [facility] [address] [id number] [place] [id number] Jan, [facility] [place] [facility] [address] [id number] [place] [address]- 0477 Jan, [facility] [place] [facility] [address] [id number] [place] [address]- 8030 Jan, [facility] [address] [id number] [place] [id number] Jan, [facility] [address] [id number] [place] 627673247 Jan, [facility] [place] [facility] [address] [id number] [place] [address]- 2826 Jan, [facility] [place] [facility] [address] [facility] [id number] [place] [address]- 2566 Jan, [facility] [place] [facility] [address] [facility] [id number] [place] [address]- 9034 Jan, [facility] [address] [facility] [id number] [place] 915144224 December, [facility] [place] [facility] [address] [facility] [id number] [place] [address]- 7106 December, [facility] [place] [facility] [address] [facility] [id number] [place] [address]- 2452 December, [facility] [address] [facility] [id number] [place] 195485248 December, [facility] [place] [facility] [address] [facility] [id number] [place] [address]- 0511 December, [facility] [address] [facility] [id number] [place] 820534817 December, [facility] [place] [facility] [address] [facility] [id number] [place] [address]- 9583 December, [facility] [address] [facility] [id number] [place] 215456928 December, [facility] [place] [facility] [address] [facility] [id number] [place] [address]- 7576 December, [facility] [address] [facility] [id number] [place] [id number] Nov, [facility] [place] [facility] [address] [facility] [id number] [place] [address]- 8085 Nov, [facility] [address] [facility] [id number] [place] 395525622 Nov, [facility] [place] [facility] [address] [facility] [id number] [place]- 3069 Nov, [facility] [address] [facility] [id number] [place] [address]- 1879 Nov, [facility] [place] [facility] [address] [facility] [id number] [place] [address]- 5794 Nov, [facility] [address] [facility] [id number] [place] [address]- 9205 Oct, [facility] [address] [facility] [id number] [place] [id number] Oct, [facility] [address] [id number] [place] [address]- 1843 Oct, [facility] [address] [facility] [id number] [place] [address] [id number] Oct, [facility] [address] [facility] [id number] [place] [address]- 8885 Oct, [facility] [id number] [place] 385757721 Sep, [facility] [address] [facility] [id number] [place] [address]- 3662 Sep, [facility] [address] [id number] [place] 942300471 Aug, [facility] [address]005[address]100[place] [address]- 6175 Aug, [facility] [address] [facility] [id number] [place] 299624657 Aug, [facility] [place] [facility] [address] [facility] [id number] [place] [address]- 3013 Aug, [facility] [place] [facility] [address] [facility] [id number] [place] [address]- 2787 Aug, [facility] [address] [facility] [id number] [place] 782255695 Aug, [facility] [place] [facility] [address] [facility] [id number] [place] [address]- 6922 Aug, [facility] [place] [facility] [address] [facility] [id number] [place] [address]- 1651 Aug, [facility] [address] [id number] [place] [id number] Aug, [facility] [place] [facility] [address] [facility] [id number] [place] [address]- 2966 Aug, [facility] [address] [facility] [id number] [place] [id number] Jul, [facility] [place] [facility] [address] [facility] [id number] [place] [address]- 1251 Jul, [facility] [address] [facility] [id number] [place] [id number] Jul, [facility] [place] [facility] [address] [facility] [id number] [place] [address] Jul, [facility] [place] [address] [id number] [place] [id number] Jul, [facility] [address] [place] [address] Jul, [facility] [place] [address] [facility] [id number] [place] [id number] Jul, [facility] [address] [address] Jul, [facility] [place] [address] [id number] [place] [id number] Jun, [facility] [address] [id number] [address] Jun, [facility] [place] [address] [facility] [id number] [place] [id number] Jun, [facility] [address] [id number] [address] Jun, [facility] [address] [facility] [id number] [place] [address] Jun, [facility] [address] [id number] [address] Jun, [facility] [place] [address] [id number] [place] [id number] Apr, [facility] [place] [address] [id number] [place] [id number] Mar, [facility] [place] [address] [id number] [place] [id number] Mar, [facility] [place] [address] [id number] [place] [id number] Feb, [facility] [place] [address] [id number] [place] [id number] Feb, [facility] [place] [address] [id number] [place] [id number] Feb, [facility] [place] [address] [id number] [place] [id number] December, [facility] [place] [address] [id number] [place] [id number] December, [facility] [address] [place] [address] December, [facility] [place] [address] [id number] [place] [id number] December, [facility] [place] [address] [id number] [place] [id number] December, [facility] [place] [address] [id number] [place] [id number] Nov, [facility] [place] [address] [id number] [place] [id number] Nov, [facility] [place] [address] [id number] [place] [id number] Nov, [facility] [place] [address] [id number] [place] [id number] Oct, [facility] [place] [address] [id number] [place] [id number] Sep, [facility] [place] [address] [id number] [place] [id number] Aug, [facility] [address] [id number] [address] Aug, [facility] [place] [address] [id number] [place] [id number] Aug, [facility] [place] [address] [id number] [place] [id number] Jul, [facility] [address] [facility] [id number] [place] [address] Jul, [facility] [place] [address] [id number] [place] [id number] Jul, [facility] [address] [facility] [id number] [place] [address] Jul, [facility] [place] [address] [id number] [place] [id number] Jun, [facility] [address] [facility] [id number] [place] [address] Jun, [facility] [place] [address] [id number] [place] [id number] May, [facility] [address] [place] [address] May, [facility] [place] [address] [id number] [place] [id number] May, [facility] [address] [facility] [id number] [place] [address] May, [facility] [place] [address] [id number] [place] [id number] Apr, [facility] [place] [address] [id number] [place] [id number] Apr, [facility] [place] [address] [id number] [place] [id number] Mar, [facility] [place] [address] [id number] [place] [id number] Mar, [facility] [place] [address] [id number] [place] [id number] Feb, [facility] [place] [address] [id number] [place] [id number] Feb, [facility] [place] [address] [id number] [place] [id number] Jan, [facility] [address] [id number] [place] [id number] Jan, [facility] [address] [id number] [place] [id number] Jan, [facility] [place] [address] [id number] [place] [id number] Jan, [facility] [address] [id number] [place] [id number] December, [facility] [place] [address] [id number] [place] [id number] December, [facility] [address] [id number] [place] [address] Nov, [facility] [place] [address] [id number] [place] [id number] Nov, [facility] [place] [address] [id number] [place] [id number] Nov, [facility] [place] [address] [id number] [place] [id number] Nov, [facility] [place] [address] [id number] [place] [id number] Nov, [facility] [address] [facility] [id number] [place] [address] Oct, [facility] [facility] [address] [facility] [id number] [place] [address] Oct, [facility] [address] [id number] [place] [id number] Oct, [facility] [address] [id number] [place] [id number] Oct, [facility] [address] [id number] [place] [id number] Oct, [facility] [address] [id number] [place] [id number] Oct, [facility] [address] [id number] [place] [id number] Oct, [facility] [address] [id number] [place] [id number] Oct, [facility] [address] [id number] [place] [id number] Oct, [facility] [address] [facility] [id number] [place] [address] Oct, [facility] [address] [id number] [place] [id number] Sep, [facility] [address] [id number] [place] [id number] Sep, [facility] [address] [id number] [place] [id number] Aug, [facility] [address] [id number] [place] [id number] Aug, [facility] [id number] [place] [address] Jul, [facility] [id number] [place] [address] Jul, [facility] [id number] [place] [address] Jul, [facility] [id number] [place] [address] Jul, [facility] [id number] [place] [address] Jul, [facility] [id number] [place] [address] Jul, [facility] [id number] [place] [address] Jul, [facility] [id number] [place] [address] Jul, [facility] [id number] [place] [address] Jul, [facility] [id number] [place] [address] Jul, [facility] [address] [facility] [id number] [place] [address] 19 Jul, 2011 [facility] [address] [facility] [id number] [place] [address] 16 Jul, 2011 [facility] [address] [facility] [id number] [place] [address] Jul, [facility] [address] [facility] [id number] [place] [address] 08 Jul, 2011 IMMUNIZATIONS No Known Immunizations SOCIAL HISTORY Never Assessed REASON FOR VISIT print rx/FYI PLAN OF CARE VITAL SIGNS MEDICATIONS Medication Instructions Dosage Frequency Start Date End Date Duration Status Disposable Brief X-Large - externally prn as directed December, 0 days Active RESULTS No Results PROCEDURES [...]
--- OUTSIDE RECORDS SUMMARY | 2018-06-20 11:05 | XMS REPORT ---
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 Active 2349761224491 Problem S/P coronary artery stent placement Z95.5 Active 507720100 Problem Chronic obstructive pulmonary disease, unspecified COPD type J44.9 Active 65781300 Problem Type 2 diabetes mellitus with diabetic neuropathy E11.40 Active 13228012 Problem Bilateral low back pain without sciatica M54.5 Active 263267148 Problem 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 Active 317750060 Problem 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 Active 729838904 Problem Hypercholesterolemia E78.0 Active 29578864 Problem Comprehensive diabetic foot examination, type 2 DM, encounter for E11.9 Active 32708990 Problem Type 2 diabetes mellitus with diabetic polyneuropathy E11.42 Active 665644049 Problem Obesity (BMI 30.0-34.9) E66.9 Active 218557483525200 Problem Personal history of carotid stenosis Z86.79 Active 931781798 Problem Aphasia R47.01 Active 89911957 Problem Chronic diarrhea K52.9 Active 413246714 Problem Uses walker Z99.89 Active 736607842 Problem Chronic fatigue R53.82 Active 32274909 Problem Mixed stress and urge urinary incontinence N39.46 Active 074194069 Problem Chronic pain syndrome G89.4 Active 944133547 Problem High risk medication use Z79.899 Active 758950501 Problem Osteomyelitis of right foot, unspecified chronicity M86.9 Active 98276008 Problem Fatigue, unspecified type R53.83 Active 22379028 Problem Diabetes type 2, uncontrolled E11.65 Active 109496897 Problem Full incontinence of feces R15.9 Active 543131662841296 Problem Other chronic pain G89.29 Active 09693305 Problem Functional diarrhea K59.1 Active 39486038 Problem Fecal urgency R15.2 Active 20232914 Problem Depression F32.9 Active 52668996 Problem CKD (chronic kidney disease), stage 3 (moderate) N18.3 Active 889509249 Problem Hyperlipidemia, unspecified hyperlipidemia E78.5 Active 32062299 Problem CKD (chronic kidney disease) stage 3, GFR 30-59 ml/min N18.3 Active 210341997 Problem Type 2 diabetes mellitus with diabetic peripheral angiopathy without gangrene E11.51 Active 327286838 Problem Pain in left shoulder M25.512 Active 98450943 Problem Insulin long-term use Z79.4 Active 649838198 Problem Essential hypertension I10 Active 33130525 Problem Type 2 diabetes mellitus with diabetic retinopathy, macular edema presence unspecified, with unspecified retinopathy severity E11.319 Active 46215587 Problem Chronic kidney disease, unspecified N18.9 Active 942682482 Problem Type 2 diabetes mellitus with foot ulcer E11.621 Active 068290769 Problem Frequent falls R29.6 Active 962861998 Problem GERD without esophagitis K21.9 Active 934270530 Problem Mixed hyperlipidemia E78.2 Active 727269477 ALLERGIES No Information ENCOUNTERS Encounter Location Date Diagnosis [facility] [address] [id number] Apr, [facility] [address] [id number] Mar, [facility] [place] [id number] [place] [address] [id number] Feb, Other chronic pain G89.29 [facility] [id number] [place] [address] [id number] 27 Feb, 2018 [facility] [place] [address] [id number] Feb, [facility] [address] [id number] Feb, Diabetes type 2, uncontrolled E11.65 [facility] [address] [id number] Feb, Other chronic pain G89.29 [facility] [address] [id number] [place] [id number] Jan, [facility] [id number] [place]ILLS[place] [id number] Jan, [facility] [id number] [place]ILL[place] [id number] Jan, [facility] [id number] [place]ILL[place] [id number] Jan, Other chronic pain G89.29 [facility] [id number] [place]ILLS[place] [id number] December, Mixed stress and urge urinary incontinence N39.46 [facility] [id number] [place] [address] [id number] December, Chronic fatigue R53.82 [facility] [address] [place] [address] [id number] December, Other chronic pain G89.29 [facility] [address]00565100[place] [id number] December, Diabetes type 2, uncontrolled E11.65 ; [...] type J44.9 and Other chronic pain G89.29 [facility] [address] [facility] [id number] [phone] December, [facility] [address] [id number] [place] [id number] December, Medicare annual wellness visit, subsequent Z00.00 ; Type 2 diabetes mellitus with diabetic polyneuropathy E11.42 ; Chronic obstructive pulmonary disease, unspecified COPD type J44.9 ; Depression F32.9 ; Peripheral vascular disease I73.9 ; 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 ; Hypercholesterolemia E78.0 ; GERD without esophagitis K21.9 and Chronic kidney disease, unspecified N18.9 [id number] [place] [address] [id number] December, Mixed stress and urge urinary incontinence N39.46 ; Full incontinence of feces R15.9 ; Fecal urgency R15.2 ; Functional diarrhea K59.1 and Type 2 diabetes mellitus with diabetic neuropathy E11.40 [place] [id number] [place] [address] [id number] Nov, Other chronic pain G89.[address] [id number] Oct, [address] [id number] Oct, [address] [id number] Oct, Other chronic pain G89.29 [place] [id number] [place] [address] [id number] Sep, Other chronic pain G89.[address] [id number] Aug, CKD (chronic kidney disease), stage 3 (moderate) N18.3 ; Anemia, unspecified type D64.9 and Dilated pore of Ly L70.[address] [id number] Aug, Other chronic pain G89.29 ; Pain in left shoulder M25.512 ; High risk medication use Z79.899 ; Uses walker Z99.89 ; Diabetes type 2, uncontrolled E11.65 and Depression F32.9 [place] [id number] [place] [address] [id number] Aug, Chronic diarrhea K52.[address] [id number] Aug, Chronic diarrhea K52.9 ; Type 2 diabetes mellitus with diabetic neuropathy E11.40 ; Diabetes type 2, uncontrolled E11.65 ; Insulin long-term use Z79.4 ; Chronic obstructive pulmonary disease, unspecified COPD type J44.9 ; Chronic pain syndrome G89.4 ; Pain in left shoulder M25.512 ; Uses walker Z99.89 ; S/P coronary artery stent placement Z95.5 ; Mixed hyperlipidemia E78.2 and Essential hypertension I10 [address] [place] [address] [id number] Aug, [place] [id number] [place] [address] [id number] Jul, Diabetes type 2, uncontrolled E11.65 [place] [id number] [place] [address] [id number] Jul, Diabetes type 2, uncontrolled E11.65 ; Type 2 diabetes mellitus with diabetic neuropathy E11.40 ; Insulin long-term use Z79.4 and Chronic obstructive pulmonary disease, unspecified COPD type J44.9 [place] [id number] [place] [address] [id number] Jun, [place] [id number] [place] [address] [id number] Jun, Essential hypertension I10 [address] [place] [address] [id number] Jun, Essential hypertension I10 [place] [id number] [place] [address] [id number] Jun, Type 2 diabetes mellitus with diabetic neuropathy E11.40 ; Type 2 diabetes mellitus with diabetic polyneuropathy E11.42 ; S/P coronary artery stent placement Z95.5 ; Obesity (BMI 30.0-34.9) E66.9 ; Mixed hyperlipidemia E78.2 ; Frequent falls R29.6 ; Chronic obstructive pulmonary disease, unspecified COPD type J44.9 ; Essential hypertension I10 ; Insulin long-term use Z79.4 and High risk medication use Z79.899 [address] [place] [address] [id number] May, Diarrhea, unspecified type R19.7 ; Type 2 diabetes mellitus with diabetic neuropathy E11.40 ; Chronic obstructive pulmonary disease, unspecified COPD type J44.9 ; S/P coronary artery stent placement Z95.5 ; High risk medication use Z79.899 ; Essential hypertension I10 ; Encounter for administration of vaccine Z23 and Encounter for immunization Z23 [facility] [id number] [place] [id number] May, Chronic obstructive pulmonary disease, unspecified COPD type J44.9 [facility] [address]00565100[place] [id number] May, Type 2 diabetes mellitus with diabetic polyneuropathy E11.42 ; Encounter for immunization Z23 ; Needs flu shot Z23 ; Comprehensive diabetic foot examination, type 2 DM, encounter for E11.9 and Obesity (BMI 30.0-34.9) E66.9 [address] [place] [address] [id number] May, [address] [place] [address] [id number] Apr, [place] [id number] [place] [address] [id number] Apr, Essential hypertension I10 and Aphasia R47.01 [address] [place] [address] [id number] Apr, [place] [address] [place] [address] [id number] Apr, Type 2 diabetes mellitus with diabetic neuropathy E11.40 ; Frequent falls R29.6 ; Essential hypertension I10 ; S/P coronary artery stent placement Z95.5 ; High risk medication use Z79.899 ; Hyperlipidemia, unspecified hyperlipidemia E78.5 ; CKD (chronic kidney disease), stage 3 (moderate) N18.3 ; Pain in left shoulder M25.512 and Chronic obstructive pulmonary disease, unspecified COPD type J44.[address] [id number] [place] [id number] Mar, [place] [id number] [place] [address] [id number] Mar, Type 2 diabetes mellitus with diabetic polyneuropathy E11.42 ; Leg wound, left, initial encounter S81.802A ; Hx of shoulder surgery Z98.890 ; Acute pain of left shoulder M25.512 and Fall, initial encounter W19.XXXA [facility] [id number] [place] [address] [id number] Feb, Follow-up exam Z09 ; Hx of shoulder surgery Z98.890 ; Acute pain of left shoulder M25.512 ; Essential hypertension I10 and Leg wound, left, initial encounter S81.802A [facility] [id number] [place] [address] [id number] Feb, [facility] [address] [id number] Feb, [facility] [id number] [place] [address] [id number] Feb, Chronic obstructive pulmonary disease, unspecified COPD type J44.9 [facility] [id number] [place] [address] [id number] Feb, [facility] [id number] [place] [address] [id number] Jan, Generalized weakness R53.1 ; Exertional shortness of breath R06.02 and Fungal rash of trunk B36.9 [facility] [place] [id number] [place] [address] [id number] Jan, [facility] [id number] [place] [address] [id number] Jan, [facility] [id number] [place] [address] [id number] Jan, [facility] [id number] [place] [address] [id number] Jan, [facility] [id number] [place] [address] [id number] December, High risk medication use Z79.899 [facility] [id number] [place] [address] [id number] December, Type 2 diabetes mellitus with diabetic neuropathy E11.40 [facility] [id number] [place] [address] [id number] December, High risk medication use Z79.899 [facility] [place] [id number] [place] [address] [id number] 28 Apr, 2017 Diabetes type 2, uncontrolled E11.[address] [id number] [place]ILL[place] [id number] Nov, Medicare annual wellness visit, initial Z00.00 ; Bilateral low back pain without sciatica M54.5 ; Pain in left shoulder M25.512 ; Chronic pain syndrome G89.4 ; Type 2 diabetes mellitus with diabetic polyneuropathy E11.42 ; High risk medication use Z79.899 and Encounter for immunization Z23 [place] [id number] [place] [address] [id number] Nov, Type 2 diabetes mellitus with diabetic neuropathy E11.40 ; 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 and CKD (chronic kidney disease), stage 3 (moderate) N18.3 [address] [place] [address] [id number] Oct, Type 2 diabetes mellitus with diabetic polyneuropathy E11.42 ; Chronic pain syndrome G89.4 ; Chronic obstructive pulmonary disease, unspecified COPD type J44.9 ; Chronic kidney disease, unspecified N18.9 and Rash R21 [address] [id number] [place] [id number] Oct, Type 2 diabetes mellitus with diabetic neuropathy E11.40 [address] [place] [address] [id number] Oct, Rash R21 and Impetigo L01.[address] [place] [address] [id number] Oct, Chronic pain syndrome G89.4 [address] [place] [address] [id number] Oct, [id number] [place] [address] [id number] Sep, Sebaceous cyst L72.3 [address] [place] [address] [id number] Sep, Sebaceous cyst L72.3 [address] [place] [address] [id number] Sep, Chronic pain syndrome G89.4 ; Pain in left shoulder M25.512 and Effusion of olecranon bursa, left M25.422 [facility] [address] [id number] [address] Aug, [facility] [id number] [place] [address] [id number] Aug, [facility] [id number] [place] [address] [id number] Aug, Mixed hyperlipidemia E78.2 and Chronic kidney disease, unspecified N18.9 [facility] [id number] [place] [address] [id number] Jul, Type 2 diabetes mellitus with diabetic neuropathy E11.40 ; Essential hypertension I10 and S/P coronary artery stent placement Z95.5 [facility] [id number] [place] [address] [id number] Jul, 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 [place] [id number] [place] [address] [id number] Jul, Diabetes type 2, uncontrolled E11.65 ; Essential hypertension I10 and 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 [facility] [id number] [place] [address] [id number] Jul, [facility] [id number] [place] [address] [id number] Jul, [facility] [id number] [place] [address] [id number] Jul, [facility] [id number] [place] [address] [id number] Jul, Chronic obstructive pulmonary disease, unspecified COPD type J44.9 [facility] [address] [place] [address] [id number] Jun, CKD (chronic kidney disease), stage 3 (moderate) N18.3 and Anemia, unspecified type D64.9 [facility] [id number] [place] [address] [id number] Jun, Type 2 diabetes mellitus with diabetic neuropathy E11.40 ; Decreased GFR R94.4 ; CKD (chronic kidney disease), stage 3 (moderate) N18.3 and Decreased hemoglobin R71.0 [address] [place] [address] [id number] Jun, CKD (chronic kidney disease), stage 3 (moderate) N18.3 and Anemia, unspecified type D64.9 [address] [place] [address] [id number] Jun, Type 2 diabetes mellitus with diabetic neuropathy E11.40 ; Decreased GFR R94.4 and CKD (chronic kidney disease), stage 3 (moderate) N18.3 [place] [id number] [place] [address] [id number] Jun, Type 2 diabetes mellitus with diabetic neuropathy E11.40 and Essential hypertension I10 [place] [id number] [place] [address] [id number] Jun, [place] [id number] [place] [address] [id number] Jun, [place] [address] [place] [address] [id number] Jun, Type 2 diabetes mellitus with diabetic neuropathy E11.40 ; S/P coronary artery stent placement Z95.5 ; Chronic obstructive pulmonary disease, unspecified COPD type J44.9 ; Essential hypertension I10 ; GERD without esophagitis K21.9 ; Peripheral vascular disease I73.9 ; Mixed hyperlipidemia E78.2 and Hospital discharge follow-up Z09 [address] [place] [address] [id number] Jun, [place] [id number] [place] [address] [id number] May, Depression F32.9 and Hyperlipidemia, unspecified hyperlipidemia E78.5 [facility] [address]00565100[place], [place] [address] May, [place] [id number] [place] [address] [id number] May, [place] [address] [place] [address] [id number] May, Essential hypertension I10 ; Chronic pain syndrome G89.4 ; Pain in left shoulder M25.512 ; High risk medication use Z79.899 ; Chronic obstructive pulmonary disease, unspecified COPD type J44.9 ; S/P coronary artery stent placement Z95.5 ; Personal history of carotid stenosis Z86.79 ; Hyperlipidemia, unspecified hyperlipidemia E78.5 ; Decreased GFR R94.4 and Type 2 diabetes mellitus with diabetic polyneuropathy E11.42 [facility] [id number] [place] [address] [id number] May, Hemoglobin decreased R71.0 and Decreased GFR R94.[address] [id number] May, Hemoglobin decreased R71.0 and Decreased GFR R94.[address] [id number] May, [address] [id number] May, [address] [id number] Apr, [address] [id number] Apr, Type 2 diabetes mellitus with foot [...] E78.5 and Essential hypertension I10 [place] [id number] [place] [address] [id number] Apr, [place] [address] [place] [address] [id number] Mar, [place] [id number] [place] [address] [id number] Mar, [facility] [id number] [place] [address] [phone] Mar, [address] [id number] Feb, [facility] [id number] [place] [id number] Feb, [facility] [id number] [place] [address] [id number] Feb, [facility] [id number] [place] [address] [id number] Jan, Type 2 diabetes mellitus with diabetic polyneuropathy E11.42 ; Hypercholesterolemia E78.0 ; Chronic pain syndrome G89.4 ; Pain in left shoulder M25.512 and High risk medication use Z79.899 [facility] [id number] [place] [address] [id number] Jan, [facility] [address] [place] [address] [id number] Jan, [facility] [id number] [place] [address] [id number] December, [facility] [id number] [place] [address] [id number] December, [facility] [id number] [place] [address] [phone]- [phone] December, Diabetes type 2, uncontrolled E11.65 ; Type 2 diabetes mellitus with diabetic neuropathy E11.40 ; Peripheral vascular disease I73.9 ; 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 and 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 [facility] [id number] [place] [address] [id number] Nov, [facility] [id number] [place] [address] [id number] Nov, [facility] [id number] [place] [address] [id number] Nov, [facility] [id number] [place] [address] [id number] Nov, Right hip pain M25.551 [facility] [id number] [place] [address] [phone]- [phone] Nov, [facility] [address] [phone] Nov, [facility] [address] [id number] [place]ILL[place] [id number] Nov, Diabetes with neurological manifestations, type II or unspecified type, 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.60 [facility] [address] [id number] [place] [id number] Nov, [facility] [address] [id number] [place]ILL[place] [id number] Nov, [facility] [address] [id number] [place]ILL[place] [id number] Oct, Diabetes type 2, uncontrolled E11.65 ; Type 2 diabetes mellitus with diabetic neuropathy, unspecified E11.40 and Low back pain M54.5 [facility] [address] [id number] [place] [id number] Oct, [facility] [address] [id number] [place]ILL[place] [id number] Oct, [facility] [address] [id number] [place]ILL[place] [id number] Oct, [facility] [address] [id number] [place]ILLS[place] [id number] Sep, [facility] [place] [id number] [place] [id number] Sep, [facility] [address] [facility] [id number], [place] [address] Sep, [facility] [address] [id number] [place]ILL[place] [id number] Sep, [facility] [address] [id number] [place] [id number] Sep, [facility] [address] [facility] [id number] [place]ILL[place] [id number] Aug, 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 [facility] [address] [id number] [place]ILL[place] [id number] Aug, [facility] [address] [id number] [place] [id number] Aug, Allergic rhinitis due to pollen J30.1 [facility] [place] [address] [facility] [id number] [place] [id number] Jul, [facility] [id number] [place] [id number] Jul, [facility] [id number] [place]ILL[place] [id number] Jul, [facility] [address] [id number] [place] [id number] Jun, [facility] [id number] [place] [address] [id number] Jun, Thumb tendonitis M77.8 and Ringing in ear, bilateral H93.[address] [id number] [place] [id number] Jun, [facility] [id number] [place] [address] [id number] May, [place] [id number] [place] [address] [phone] May, [place] [id number] [place] [address] [id number]- [phone] May, Pre-op evaluation Z01.818 ; Encounter for immunization Z23 ; Type 2 diabetes mellitus with diabetic peripheral angiopathy without gangrene E11.51 ; Insulin long-term use Z79.4 ; Type 2 diabetes mellitus with foot ulcer E11.621 ; Peripheral vascular disease I73.9 ; 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 ; S/P coronary artery stent placement Z95.5 ; Osteomyelitis of right foot, unspecified chronicity M86.9 and Chronic obstructive pulmonary disease, unspecified COPD type J44.9 [facility] [id number] [place] [address] 11564- 7486 May, [address] [place] [address] [id number] May, [facility] [address] [place] [address] [id number] May, Diabetes type 2, uncontrolled E11.65 ; Encounter for immunization Z23 ; Osteopenia M85.80 and Allergic rhinitis due to pollen J30.1 [facility] [id number] [place] [id number] May, Lumbago 724.2 [facility] [id number] [place] [address] [id number] Apr, [facility] [address] [id number] [id number] Apr, [facility] [id number] [place] [address] [id number] Apr, [facility] [id number] [place] [address] [id number] Apr, [facility] [address] [id number]- 5142 Mar, [facility] [id number] [place] [address] [id number] Mar, [facility] [id number] [place] [address] [id number] Mar, [facility] [id number] [place] [address] [id number] Mar, [facility] [id number] [place] [address] [id number] Mar, [facility] [id number] [place] [address] 36528- 6166 Mar, [facility] [id number] [place] [address] [id number] Mar, [facility] [id number] [place] [address] [id number] Mar, Diabetes with neurological manifestations, type II or unspecified type, 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.60 and Severe obesity (BMI 35.0-35.9 with comorbidity) 278.01 [facility] [id number] [place] [address] [id number] Mar, [facility] [id number] [place] [address] 85317- 7680 Mar, [facility] [address] 09369- 2546 Feb, [facility] [address] [id number] [place] [id number] Feb, [facility] [id number] [place] [id number] Feb, [facility] [id number] [place] [id number] Feb, Diabetes with neurological manifestations, type II or unspecified type, 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.60 [facility] [id number] [place] [id number] Feb, [facility] [address] [place] [address] 52405- 2546 Feb, [facility] [id number] [place]ILL[place] [id number] Feb, [facility] [id number] [place] [id number] Feb, Follow up V67.9 ; Diabetes with neurological manifestations, type II or unspecified type, 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.60 and Congestive heart failure 428.0 [facility] [id number] [place]ILL[place] [id number] Jan, [facility] [id number] [place] [id number] Jan, [facility] [id number] [place] [id number] Jan, [facility] [id number] [place] [id number] December, Otitis media with effusion 381.4 ; Left arm numbness 782.0 and Osteoporosis 733.00 [facility] [id number] [place] [id number] December, [facility] [id number] [place] [id number] Nov, [facility] [id number] [place] [id number] Nov, Serous otitis media 381.4 and Lumbago 724.2 [facility] [address] [id number], [place] [address]- 3086 14 Nov, 2014 [facility] [place] [facility] [address] [id number], [place] [address]- 1486 Nov, [facility] [address] [facility] [id number] [place] [id number] Oct, [facility] [place] [facility] [address] [facility] [id number], [place] [address]- 6006 Oct, [facility] [address] [facility] [id number] [place] [id number] Oct, [facility] [place] [facility] [address] [facility] [id number], [place] [address]- 6730 Oct, [facility] [address] [facility] [id number] [place] [id number] Oct, [facility] [place] [facility] [address]00565100[place], [place] [address]- 0809 Oct, [facility] [place] [facility] [address] [id number], [place] [address]- 1699 Sep, [facility] [place] [facility] [address] [id number], [place] [address]- 9013 Sep, [facility] [address] [id number] [place] [id number] Sep, [facility] [place] [facility] [address] [id number], [place] [address]- 8006 Sep, [facility] [address] [facility] [id number] [place] [id number] Aug, [facility] [place] [facility] [address] [facility] [id number], [place] [address]- 0411 Aug, [facility] [address] [facility] [id number] [place]ILL[place] [id number] Aug, [facility] [place] [facility] [address] [facility] [id number], [place] [address]- 2546 Aug, [facility] [address] [facility] [id number] [place] [id number] Jul, [facility] [place] [facility] [address] [facility] [id number], [place] [address]- 8166 Jul, [facility] [address] [facility] [id number] [place] [id number] Jul, [facility] [place] [facility] [address] [facility] [id number], [place] [address] 2546 Jul, [facility] [address] [facility] [id number] [place] [id number] Jul, [facility] [place] [facility] [address] [facility] [id number], [place] [address]- 4368 Jul, [facility] [address] [facility] [id number] [place] [address] [id number] Jun, [facility] [place] [facility] [address] [facility] [id number], [place] [address]- 7458 Jun, [facility] [address] [id number] [place] [id number] May, [facility] [place] [facility] [address] [facility] [id number], [place] [address]- 0274 May, [facility] [address] [facility] [id number] [place] [id number] May, [facility] [place] [facility] [address] [facility] [id number], [place] [address]- 4952 May, [facility] [address] [facility] [id number] [place] [id number] May, [facility] [place] [facility] [address] [facility] [id number], [place] [address]- 9517 May, [facility] [address] [facility] [id number] [place] [id number] May, [facility] [address] [facility] [id number] [place] [id number] May, [facility] [place] [facility] [address] [facility] [id number], [place] [address]- 1790 May, [facility] [place] [facility] [address] [facility] [id number], [place] [address]- 6225 May, [facility] [address] [facility] [id number] [place] [id number] May, [facility] [place] [facility] [address] [facility] [id number], [place] [address]- 2372 May, [facility] [place] [facility] [address] [facility] [id number], [place]86227- 5962 Apr, [facility] [address] [facility] [id number] [place] [id number] Apr, [facility] [place] [facility] [address] [facility] [id number], [place] [address]- 0561 Apr, [facility] [address] [id number] [place] [id number] Apr, [facility] [address] [facility] [id number] [place] [id number] Apr, [facility] [place] [facility] [address]00565100[place], [place] [address]- 0191 Apr, [facility] [place] [facility] [address]00565100[place], [place] [address]- 6284 Apr, [facility] [address] [facility] [id number] [place] [id number] Apr, [facility] [place] [facility] [address]00565100[place], [place] [address]- 9036 Apr, [facility] [address] [facility] [id number] [place] [id number] Apr, [facility] [place] [facility] [address] [facility] [id number], [place] [address]- 8692 Apr, [facility] [address] [facility] [id number] [place] [id number] Apr, [facility] [place] [facility] [address] [facility] [id number], [place] [address]- 5197 Apr, [facility] [address] [facility] [id number] [place] 744602052 Apr, [facility] [place] [facility] [address]00565100[place], [place] 8[place]8824- 8210 Apr, [facility] [address] [id number] [place] [id number] Apr, [facility] [place] [facility] [address] [facility] [id number] [place] [address]- 1219 Apr, [facility] [address] [id number] [place] [id number] Apr, [facility] [place] [facility] [address] [facility] [id number] [place] [address]- 1091 Apr, [facility] [address] [id number] [place] [id number] Mar, [facility] [place] [facility] [address] [facility] [id number], [place] [address]- 1929 Mar, [facility] [address] [id number] [place] [id number] Mar, [facility] [address] [facility] [id number] [place] [id number] Mar, [facility] [place] [facility] [address] [facility] [id number], [place] [address]- 1408 Mar, [facility] [place] [facility] [address] [facility] [id number], [place] [address]- 1236 Mar, [facility] [address] [facility] [id number] [place] [id number] Mar, [facility] [place] [facility] [address] [facility] [id number], [place] [address]- 6464 Mar, [facility] [address] [id number] [place] [id number] Mar, [facility] [place] [facility] [address] [facility] [id number], [place] [address]- 2404 Mar, [facility] [address] [id number] [place] [id number] Mar, [facility] [place] [facility] [address] [facility] [id number], [place] [address]- 5230 Mar, [facility] [address] [id number] [place] [id number] Mar, [facility] [place] [facility] [address] [id number] [place] [address]- 1995 Mar, [facility] [address] [id number] [place] [id number] Mar, [facility] [place] [facility] [address] [id number] [place]- 2540 Mar, [facility] [address] [id number] [place] [id number] Mar, [facility] [place] [facility] [address] [id number] [place] [address]- 1232 Mar, [facility] [address] [id number] [place] [id number] Mar, [facility] [place] [facility] [address] [facility] [id number] [place] [address]- 0536 Mar, [facility] [address] [id number] [place] [id number] Feb, [facility] [place] [facility] [address] [facility] [id number] [place] [address]- 3909 Feb, [facility] [address] [id number] [place] [id number] Feb, [facility] [place] [facility] [address] [facility] [id number] [place] [address]- 9455 Feb, [facility] [address] [id number] [place] [id number] Feb, [facility] [place] [facility] [address] [facility] [id number] [place] [address]- 8993 Feb, [facility] [address] [id number] [place] [id number] Feb, [facility] [place] [facility] [address] [facility] [id number] [place] [address]- 6892 Feb, [facility] [address] [id number] [place] [id number] Feb, [facility] [place] [facility] [address] [facility] [id number] [place] [address]- 2338 Feb, [facility] [address] [id number] [place] [id number] Feb, [facility] [place] [facility] [address] [id number] [place] [address]- 0616 Feb, [facility] [address] [id number] [place] [id number] Feb, [facility] [place] [facility] [address] [facility] [id number] [place] [address]- 8174 Feb, [facility] [address] [id number] [place] 806162285 Feb, [facility] [place] [facility] [address] [id number] [place] [address]- 8824 Feb, [facility] [address] [id number] [place] 688552456 Feb, [facility] [place] [facility] [address] [facility] [id number] [place] [address]- 6461 Feb, [facility] [address] [id number] [place] [id number] Feb, [facility] [address] [id number] [place] [id number] Feb, [facility] [place] [facility] [address] [facility] [id number] [place] [address]- 1427 Feb, [facility] [place] [facility] [address] [facility] [id number] [place] [address]- 3872 Feb, [facility] [address] [id number] [place] [id number] Feb, [facility] [place] [facility] [address] [id number] [place] [address]- 5544 Feb, [facility] [address] [id number] [place] [id number] Feb, [facility] [place] [facility] [address] [id number] [place] [address]- 1810 Feb, [facility] [address] [id number] [place] 536[address]241 Feb, [facility] [place] [facility] [address] [id number] [place] [address]- 1462 Feb, [facility] [address] [id number] [place] 634352049 Jan, [facility] [place] [facility] [address] [id number] [place] [address]- 9772 Jan, [facility] [place] [facility] [address] [facility] [id number] [place] [address]- 0776 Jan, [facility] [place] [facility] [address] [id number] [place] [address]- 2843 Jan, [facility] [place] [facility] [address] [facility] [id number] [place] [address]- 1416 Jan, [facility] [place] [facility] [address] [facility] [id number] [place] [address]- 7790 Jan, [facility] [address] [id number] [place] 048988270 Jan, [facility] [place] [facility] [address] [facility] [id number] [place] [address]- 6031 Jan, [facility] [place] [facility] [address] [facility] [id number], [place] [address]- 2480 Jan, [facility] [place] [facility] [address] [facility] [id number], [place] [address]- 7427 Jan, [facility] [address] [id number] [place] 740067003 Jan, [facility] [address] [id number] [place] 693578374 Jan, [facility] [place] [facility] [address] [id number], [place] [address]- 2465 Jan, [facility] [place] [facility] [address] [id number], [place] [address]- 8899 Jan, [facility] [address] [id number] [place] [id number] Jan, [facility] [address] [id number] [place] [id number] Jan, [facility] [place] [facility] [address] [id number] [place] [address]- 6626 Jan, [facility] [place] [facility] [address] [facility] [id number], [place] [address]- 0456 Jan, [facility] [place] [facility] [address] [facility] [id number] [place] [address]- 3419 Jan, [facility] [address] [facility] [id number] [place] [id number] December, [facility] [place] [facility] [address] [facility] [id number] [place] [address]- 0724 December, [facility] [place] [facility] [address] [facility] [id number] [place] [address]- 2724 December, [facility] [address] [facility] [id number] [place] [id number] December, [facility] [place] [facility] [address] [facility] [id number], [place] [address]- 0035 December, [facility] [address] [facility] [id number] [place] [id number] December, [facility] [place] [facility] [address] [facility] [id number], [place] [address]- 6810 December, [facility] [address] [facility] [id number] [place] 333764582 December, [facility] [place] [facility] [address] [facility] [id number], [place] [address]- 4566 December, [facility] [address] [facility] [id number] [place] [id number] Nov, [facility] [place] [facility] [address] [facility] [id number] [place] [address]- 3641 Nov, [facility] [address] [facility] [id number] [place] [id number] Nov, [facility] [place] [facility] [address] [facility] [id number] [place]- 0180 Nov, [facility] [address] [facility] [id number] [place] [address]- 2316 Nov, [facility] [place] [facility] [address] [facility] [id number] [place] [address]- 3612 Nov, [facility] [address] [facility] [id number] [place] [address]- 8877 Oct, [facility] [address] [facility] [id number] [place] [id number] Oct, [facility] [address] [id number] [place] [address]- 2624 Oct, [facility] [address] [facility] [id number] [place] [address] [id number] Oct, [facility] [address] [facility] [id number], [place] [address]- 2202 Oct, [facility] [id number] [place] [address]12 Sep, [facility] [address] [facility] [id number], [place] [address]- 3251 Sep, [facility] [address] [id number] [place] [id number] Aug, [facility] [address]00565100[place], [place] [address]- 8921 Aug, [facility] [address] [facility] [id number] [place] 759896748 Aug, [facility] [place] [facility] [address] [facility] [id number], [place] [address]- 6830 Aug, [facility] [place] [facility] [address] [facility] [id number], [place] [address]- 4273 Aug, [facility] [address] [facility] [id number] [place] [id number] Aug, [facility] [place] [facility] [address] [facility] [id number] [place] [address]- 5491 Aug, [facility] [place] [facility] [address] [facility] [id number], [place] [address]- 7054 Aug, [facility] [address] [id number] [place] [id number] Aug, [facility] [place] [facility] [address] [facility] [id number], [place] [address]- 3245 Aug, [facility] [address] [facility] [id number] [place] [id number] Jul, [facility] [place] [facility] [address] [facility] [id number], [place] [address] Jul, [facility] [place] [address] [facility] [id number] [place] [id number] Jul, [facility] [address] [facility] [id number], [place] [address] Jul, [facility] [place] [address] [id number] [place] [id number] Jul, [facility] [address]005[address], [place] [address] Jul, [facility] [place] [address] [facility] [id number] [place] [id number] Jul, [facility] [address]00565[address], [place] [address] Jul, [facility] [place] [address] [id number] [id number] Jun, [facility] [address] [id number], [place] [address] Jun, [facility] [place] [address] [facility] [id number] [place] [id number] Jun, [facility] [address] [id number], [place] [address] Jun, [facility] [address] [facility] [id number], [place] [address] Jun, [facility] [address] [id number], [place] [address] Jun, [facility] [place] [address] [id number] [place] [id number] Apr, [facility] [place] [address] [id number] [place] [id number] Mar, [facility] [place] [address] [id number] [place] [id number] Mar, [facility] [place] [address] [id number] [place] [id number] Feb, [facility] [place] [address] [id number] [place] [id number] Feb, [facility] [place] [address] [id number] [place] [id number] Feb, [facility] [place] [address] [id number] [place] [id number] December, [facility] [place] [address] [id number] [place] [address] December, [facility] [address]00565[address], [place] [address] December, [facility] [place] [address] [id number] [place] [id number] December, [facility] [place] [address] [id number] [place] [address] December, [facility] [place] [address] [id number] [place] [id number] Nov, [facility] [place] [address] [id number] [place] [id number] Nov, [facility] [place] [address] [id number] [place] [id number] Nov, [facility] [place] [address] [id number] [place] [address] Oct, [facility] [place] [address] [id number] [place] [id number] Sep, [facility] [place] [address] [id number] [place] [id number] Aug, [facility] [address] [id number], [place] [address] Aug, [facility] [place] [address] [id number] [place] [id number] Aug, [facility] [place] [address] [id number] [place] [id number] Jul, [facility] [address] [facility] [id number], [place] [address] Jul, [facility] [place] [address] [id number] [place] [id number] Jul, [facility] [address] [facility] [id number][place] [address] Jul, [facility] [place] [address] [id number] [place] [id number] Jun, [facility] [address] [facility] [id number][place] [address] Jun, [facility] [place] [address] [id number] [place] [id number] May, [facility] [address] [address] May, [facility] [place] [address] [id number] [place] [id number] May, [facility] [address] [facility] [id number][place] [address] May, [facility] [place] [address] [id number] [place] [id number] Apr, [facility] [place] [address] [id number] [place] [id number] Apr, [facility] [place] [address] [id number] [place] [address] Mar, [facility] [place] [address] [id number] [place] [id number] Mar, [facility] [place] [address] [id number] [place] [id number] Feb, [facility] [place] [address] [id number] [place] [id number] Feb, [facility] [place] [address] [id number] [place] [address] Jan, [facility] [place] [address] [id number] [place] [address] Jan, [facility] [place] [address] [id number] [place] [id number] Jan, [facility] [place] [address] [id number] [place] [id number] Jan, [facility] [place] [address] [id number] [place] [address] December, [facility] [place] [address] [id number] [place] [id number] December, [facility] [address] [id number], [place] [address] Nov, [facility] [place] [address] [id number] [place] [id number] Nov, [facility] [place] [address] [id number] [place] [id number] Nov, [facility] [place] [address] [id number] [place] [id number] Nov, [facility] [place] [address] [id number] [place] [id number] Nov, [facility] [facility] [address] [facility] [id number], [place] [address] Oct, [facility] [address] [facility] [id number], [place] [address] Oct, [facility] [address] [id number] [place] [id number] Oct, [facility] [address] [id number] [place] [id number] Oct, [facility] [address] [id number] [place] [id number] Oct, [facility] [address] [id number] [place] [id number] Oct, [facility] [address] [id number] [place] [id number] Oct, [facility] [address] [id number] [place] [id number] Oct, [facility] [address] [id number] [place] [id number] Oct, [facility] [address] [facility] [id number], [place] [address] Oct, [facility] [address] [id number] [place] [id number] Sep, [facility] [address] [id number] [place] [id number] Sep, [facility] [address] [id number] [place] [id number] Aug, [facility] [address] [id number] [place] [id number] Aug, [facility] [address]00565[place], [place] [address] Jul, [facility] [id number] [place] [address] Jul, [facility] [address]00565[address], [place] [address] Jul, [facility] [id number] [place] [address] Jul, [facility] [id number], [place] [address] Jul, [facility] [address]65[address], [place] [address] Jul, [facility] [address], [place] [address] Jul, [facility] [address], [place] [address] Jul, [facility] [address]65[address], [place] [address] Jul, [facility] [address], [place] [address] Jul, [facility] [address] [facility] [id number] [place] [address] Jul, [facility] [address] [facility] [id number] [place] [address] Jul, [facility] [address] [facility] [id number] [place] [address] Jul, [facility] [address] [facility] [id number] [address] Jul, IMMUNIZATIONS No Known Immunizations SOCIAL HISTORY Never Assessed REASON FOR VISIT Controlled Med Refill PLAN OF CARE VITAL SIGNS MEDICATIONS Medication Instructions Dosage Frequency Start Date End Date Duration Status Tramadol HCl 50 mg Orally 3 times a day, must last 28 days 1 tablet Jan, 28 days Active RESULTS No Results PROCEDURES [...] Surgical History Left eye retinal eye repair ([facility]) 06/2014 Surgical History amputation, toe-right third toe ([facility]) 2013 Surgical History Right eye retinal eye repair ([facility]) 09/2014 Surgical History heart [...]
--- OUTSIDE RECORDS SUMMARY | 2018-06-20 11:06 | XMS REPORT ---
Author Author SATINDER GOOD Organization [facility] Address [address] [place] [address] Care Team Providers Care [employer] Assistant Name Role Phone SATINDER GOOD Unavailable PROBLEMS Type Condition ICD9-CM Code RVR04-TN Code Onset Dates Condition Status SNOMED Code Problem Peripheral vascular disease I73.9 Active 804135691 Problem Coronary artery disease involving ke[place] coronary artery of keweenaw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 Active [id number] Problem S/P coronary artery stent placement Z95.5 Active 919550266 Problem Chronic obstructive pulmonary disease, unspecified COPD type J44.9 Active 51592088 Problem Type 2 diabetes mellitus with diabetic neuropathy E11.40 Active 66341457 Problem Bilateral low back pain without sciatica M54.5 Active 567447162 Problem 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 Active 389230628 Problem 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 Active 587050539 Problem Hypercholesterolemia E78.0 Active 27892667 Problem Comprehensive diabetic foot examination, type 2 DM, encounter for E11.9 Active 45502096 Problem Type 2 diabetes mellitus with diabetic polyneuropathy E11.42 Active 291101877 Problem Obesity (BMI 30.0-34.9) E66.9 Active 600608442299991 Problem Personal history of carotid stenosis Z86.79 Active 576981675 Problem Aphasia R47.01 Active 22406296 Problem Chronic diarrhea K52.9 Active 509739696 Problem Uses walker Z99.89 Active 216300638 Problem Chronic fatigue R53.82 Active 49552928 Problem Mixed stress and urge urinary incontinence N39.46 Active 328942984 Problem Chronic pain syndrome G89.4 Active 542147433 Problem High risk medication use Z79.899 Active 980947851 Problem Osteomyelitis of right foot, unspecified chronicity M86.9 Active 07480089 Problem Fatigue, unspecified type R53.83 Active 50338826 Problem Diabetes type 2, uncontrolled E11.65 Active 926089575 Problem Full incontinence of feces R15.9 Active 344700285191977 Problem Other chronic pain G89.29 Active 74759078 Problem Functional diarrhea K59.1 Active 01519075 Problem Fecal urgency R15.2 Active 24108165 Problem Depression F32.9 Active 91841355 Problem CKD (chronic kidney disease), stage 3 (moderate) N18.3 Active 101431153 Problem Hyperlipidemia, unspecified hyperlipidemia E78.5 Active 75706678 Problem CKD (chronic kidney disease) stage 3, GFR 30-59 ml/min N18.3 Active 122790463 Problem Type 2 diabetes mellitus with diabetic peripheral angiopathy without gangrene E11.51 Active 861979939 Problem Pain in left shoulder M25.512 Active 35345579 Problem Insulin long-term use Z79.4 Active 085025332 Problem Essential hypertension I10 Active 56463098 Problem Type 2 diabetes mellitus with diabetic retinopathy, macular edema presence unspecified, with unspecified retinopathy severity E11.319 Active 54497471 Problem Chronic kidney disease, unspecified N18.9 Active 431626732 Problem Type 2 diabetes mellitus with foot ulcer E11.621 Active 817914539 Problem Frequent falls R29.6 Active 922082541 Problem GERD without esophagitis K21.9 Active 067984629 Problem Mixed hyperlipidemia E78.2 Active 847188538 ALLERGIES No Information ENCOUNTERS Encounter Location Date Diagnosis [facility] [address] [id number] Apr, [facility] [address] [id number] Mar, [facility] [place] [id number] [place] [address] [id number] Feb, Other chronic pain G89.29 [facility] [id number] [place] [address] [id number] 27 Feb, 2018 [facility] [place] [address] [id number] Feb, [facility] [address] [id number] Feb, Diabetes type 2, uncontrolled E11.65 [facility] [address] [id number] Feb, Other chronic pain G89.29 [facility] [address] [id number] [id number] Jan, [facility] [id number], [place] [id number] Jan, [facility] [id number], [place] [id number] Jan, [facility] [id number], [place] [id number] Jan, Other chronic pain G89.29 [facility] [id number], [place] [id number] December, Mixed stress and urge urinary incontinence N39.46 [facility] [id number] [place] [address] [id number] December, Chronic fatigue R53.82 [facility] [address] [place] [address] [id number] December, Other chronic pain G89.29 [facility] [address]00565100[place], [place] [address]23[address] December, Diabetes type 2, uncontrolled E11.65 ; [...] type J44.9 and Other chronic pain G89.29 [facility] [address] [facility] [id number][place] [phone] December, [facility] [address] [id number], [place] [id number] December, Medicare annual wellness visit, subsequent Z00.00 ; Type 2 diabetes mellitus with diabetic polyneuropathy E11.42 ; Chronic obstructive pulmonary disease, unspecified COPD type J44.9 ; Depression F32.9 ; Peripheral vascular disease I73.9 ; Coronary artery disease involving [place] coronary artery of ke[place]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 ; Hypercholesterolemia E78.0 ; GERD without esophagitis K21.9 and Chronic kidney disease, unspecified N18.9 [place] [id number] [place] [address] [id number] December, Mixed stress and urge urinary incontinence N39.46 ; Full incontinence of feces R15.9 ; Fecal urgency R15.2 ; Functional diarrhea K59.1 and Type 2 diabetes mellitus with diabetic neuropathy E11.40 [place] [id number] [place] [address] [id number] Nov, Other chronic pain G89.[address] [id number] Oct, [address] [id number] Oct, [address] [id number] Oct, Other chronic pain G89.29 [address] [id number] [place] [address] [id number] Sep, Other chronic pain G89.[address] [id number] Aug, CKD (chronic kidney disease), stage 3 (moderate) N18.3 ; Anemia, unspecified type D64.9 and Dilated pore of Ly L70.[address] [id number] Aug, Other chronic pain G89.29 ; Pain in left shoulder M25.512 ; High risk medication use Z79.899 ; Uses walker Z99.89 ; Diabetes type 2, uncontrolled E11.65 and Depression F32.9 [place] [id number] [place] [address] [id number] Aug, Chronic diarrhea K52.[address] [id number] Aug, Chronic diarrhea K52.9 ; Type 2 diabetes mellitus with diabetic neuropathy E11.40 ; Diabetes type 2, uncontrolled E11.65 ; Insulin long-term use Z79.4 ; Chronic obstructive pulmonary disease, unspecified COPD type J44.9 ; Chronic pain syndrome G89.4 ; Pain in left shoulder M25.512 ; Uses walker Z99.89 ; S/P coronary artery stent placement Z95.5 ; Mixed hyperlipidemia E78.2 and Essential hypertension I10 [address] [place] [address] [id number] Aug, [place] [id number] [place] [address] [id number] Jul, Diabetes type 2, uncontrolled E11.65 [address] [id number] [place] [address] [id number] Jul, Diabetes type 2, uncontrolled E11.65 ; Type 2 diabetes mellitus with diabetic neuropathy E11.40 ; Insulin long-term use Z79.4 and Chronic obstructive pulmonary disease, unspecified COPD type J44.9 [place] [id number] [place] [address] [id number] Jun, [address] [address] [place] [address] [id number] Jun, Essential hypertension I10 [address] [place] [address] [id number] Jun, Essential hypertension I10 [address] [id number] [place] [address] [id number] Jun, Type 2 diabetes mellitus with diabetic neuropathy E11.40 ; Type 2 diabetes mellitus with diabetic polyneuropathy E11.42 ; S/P coronary artery stent placement Z95.5 ; Obesity (BMI 30.0-34.9) E66.9 ; Mixed hyperlipidemia E78.2 ; Frequent falls R29.6 ; Chronic obstructive pulmonary disease, unspecified COPD type J44.9 ; Essential hypertension I10 ; Insulin long-term use Z79.4 and High risk medication use Z79.899 [address] [place] [address] [id number] May, Diarrhea, unspecified type R19.7 ; Type 2 diabetes mellitus with diabetic neuropathy E11.40 ; Chronic obstructive pulmonary disease, unspecified COPD type J44.9 ; S/P coronary artery stent placement Z95.5 ; High risk medication use Z79.899 ; Essential hypertension I10 ; Encounter for administration of vaccine Z23 and Encounter for immunization Z23 [facility] [id number][place] [id number] May, Chronic obstructive pulmonary disease, unspecified COPD type J44.9 [facility] [address]00565100[place] [id number] May, Type 2 diabetes mellitus with diabetic polyneuropathy E11.42 ; Encounter for immunization Z23 ; Needs flu shot Z23 ; Comprehensive diabetic foot examination, type 2 DM, encounter for E11.9 and Obesity (BMI 30.0-34.9) E66.9 [address] [place] [address] [id number] May, [address] [place] [address] [id number] Apr, [place] [id number] [place] [address] [id number] Apr, Essential hypertension I10 and Aphasia R47.01 [address] [place] [address] [id number] Apr, [place] [id number] [place] [address] [id number] Apr, Type 2 diabetes mellitus with diabetic neuropathy E11.40 ; Frequent falls R29.6 ; Essential hypertension I10 ; S/P coronary artery stent placement Z95.5 ; High risk medication use Z79.899 ; Hyperlipidemia, unspecified hyperlipidemia E78.5 ; CKD (chronic kidney disease), stage 3 (moderate) N18.3 ; Pain in left shoulder M25.512 and Chronic obstructive pulmonary disease, unspecified COPD type J44.[address] [id number] [id number] Mar, [place] [id number] [place] [address] [id number] Mar, Type 2 diabetes mellitus with diabetic polyneuropathy E11.42 ; Leg wound, left, initial encounter S81.802A ; Hx of shoulder surgery Z98.890 ; Acute pain of left shoulder M25.512 and Fall, initial encounter W19.XXXA [facility] [id number] [place] [address] [id number] Feb, Follow-up exam Z09 ; Hx of shoulder surgery Z98.890 ; Acute pain of left shoulder M25.512 ; Essential hypertension I10 and Leg wound, left, initial encounter S81.802A [facility] [id number] [place] [address] [id number] Feb, [facility] [address] [id number] Feb, [facility] [id number] [place] [address] [id number] Feb, Chronic obstructive pulmonary disease, unspecified COPD type J44.9 [facility] [id number] [place] [address] [id number] Feb, [facility] [id number] [place] [address] [id number] Jan, Generalized weakness R53.1 ; Exertional shortness of breath R06.02 and Fungal rash of trunk B36.9 [facility] [place] [id number] [place] [address] [id number] Jan, [facility] [id number] [place] [address] [id number] Jan, [facility] [id number] [place] [address] [id number] Jan, [facility] [id number] [place] [address] [id number] Jan, [facility] [id number] [place] [address] [id number] December, High risk medication use Z79.899 [facility] [id number] [place] [address] [id number] December, Type 2 diabetes mellitus with diabetic neuropathy E11.40 [facility] [id number] [place] [address] [id number] December, High risk medication use Z79.899 [facility] [place] [id number] [place] [address] [id number] 28 Apr, 2017 Diabetes type 2, uncontrolled E11.[address] [id number], [place] [id number] Nov, Medicare annual wellness visit, initial Z00.00 ; Bilateral low back pain without sciatica M54.5 ; Pain in left shoulder M25.512 ; Chronic pain syndrome G89.4 ; Type 2 diabetes mellitus with diabetic polyneuropathy E11.42 ; High risk medication use Z79.899 and Encounter for immunization Z23 [place] [id number] [place] [address] [id number] Nov, Type 2 diabetes mellitus with diabetic neuropathy E11.40 ; Coronary artery disease involving [place] coronary artery of ke[place]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 and CKD (chronic kidney disease), stage 3 (moderate) N18.3 [address] [place] [address] [id number] Oct, Type 2 diabetes mellitus with diabetic polyneuropathy E11.42 ; Chronic pain syndrome G89.4 ; Chronic obstructive pulmonary disease, unspecified COPD type J44.9 ; Chronic kidney disease, unspecified N18.9 and Rash R21 [address] [id number] [id number] Oct, Type 2 diabetes mellitus with diabetic neuropathy E11.40 [address] [place] [address] [id number] Oct, Rash R21 and Impetigo L01.[address] [place] [address] [id number] Oct, Chronic pain syndrome G89.4 [address] [place] [address] [id number] Oct, [id number] [place] [address] [id number] Sep, Sebaceous cyst L72.3 [address] [place] [address] [id number] Sep, Sebaceous cyst L72.3 [address] [place] [address] [id number] Sep, Chronic pain syndrome G89.4 ; Pain in left shoulder M25.512 and Effusion of olecranon bursa, left M25.422 [facility] [address] [id number] [address] Aug, [facility] [id number] [place] [address] [id number] Aug, [facility] [id number] [place] [address] [id number] Aug, Mixed hyperlipidemia E78.2 and Chronic kidney disease, unspecified N18.9 [facility] [id number] [place] [address] [id number] Jul, Type 2 diabetes mellitus with diabetic neuropathy E11.40 ; Essential hypertension I10 and S/P coronary artery stent placement Z95.5 [facility] [id number] [place] [address] [id number] Jul, 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 [place] [id number] [place] [address] [id number] Jul, Diabetes type 2, uncontrolled E11.65 ; Essential hypertension I10 and 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 [facility] [id number] [place] [address] [id number] Jul, [facility] [id number] [place] [address] [id number] Jul, [facility] [id number] [place] [address] [id number] Jul, [facility] [id number] [place] [address] [id number] Jul, Chronic obstructive pulmonary disease, unspecified COPD type J44.9 [facility] [address] [place] [address] [id number] Jun, CKD (chronic kidney disease), stage 3 (moderate) N18.3 and Anemia, unspecified type D64.9 [facility] [id number] [place] [address] [id number] Jun, Type 2 diabetes mellitus with diabetic neuropathy E11.40 ; Decreased GFR R94.4 ; CKD (chronic kidney disease), stage 3 (moderate) N18.3 and Decreased hemoglobin R71.0 [address] [place] [address] [id number] Jun, CKD (chronic kidney disease), stage 3 (moderate) N18.3 and Anemia, unspecified type D64.9 [address] [place] [address] [id number] Jun, Type 2 diabetes mellitus with diabetic neuropathy E11.40 ; Decreased GFR R94.4 and CKD (chronic kidney disease), stage 3 (moderate) N18.3 [place] [id number] [place] [address] [id number] Jun, Type 2 diabetes mellitus with diabetic neuropathy E11.40 and Essential hypertension I10 [address] [address] [place] [address] [id number] Jun, [place] [address] [place] [address] [id number] Jun, [place] [address] [place] [address] [id number] Jun, Type 2 diabetes mellitus with diabetic neuropathy E11.40 ; S/P coronary artery stent placement Z95.5 ; Chronic obstructive pulmonary disease, unspecified COPD type J44.9 ; Essential hypertension I10 ; GERD without esophagitis K21.9 ; Peripheral vascular disease I73.9 ; Mixed hyperlipidemia E78.2 and Hospital discharge follow-up Z09 [address] [place] [address] [id number] Jun, [address] [id number] [place] [address] [id number] May, Depression F32.9 and Hyperlipidemia, unspecified hyperlipidemia E78.5 [facility] [address]00565100[place] [address] May, [place] [id number] [place] [address] [id number] May, [place] [address] [place] [address] [id number] May, Essential hypertension I10 ; Chronic pain syndrome G89.4 ; Pain in left shoulder M25.512 ; High risk medication use Z79.899 ; Chronic obstructive pulmonary disease, unspecified COPD type J44.9 ; S/P coronary artery stent placement Z95.5 ; Personal history of carotid stenosis Z86.79 ; Hyperlipidemia, unspecified hyperlipidemia E78.5 ; Decreased GFR R94.4 and Type 2 diabetes mellitus with diabetic polyneuropathy E11.42 [facility] [id number] [place] [address] [id number] May, Hemoglobin decreased R71.0 and Decreased GFR R94.[address] [id number] May, Hemoglobin decreased R71.0 and Decreased GFR R94.[address] [id number] May, [address] [id number] May, [address] [id number] Apr, [address] [id number] Apr, Type 2 diabetes mellitus with foot [...] unspecified hyperlipidemia E78.5 and Essential hypertension I10 [place] [address] [place] [address] [id number] Apr, [place] [address] [place] [address] [id number] Mar, [place] [address] [place] [address] [id number] Mar, [facility] [id number] [place] [address] [id number] 2221 Mar, [address] [id number] Feb, [facility] [id number][place] [id number] Feb, [facility] [id number] [place] [address] [id number] Feb, [facility] [id number] [place] [address] [id number] Jan, Type 2 diabetes mellitus with diabetic polyneuropathy E11.42 ; Hypercholesterolemia E78.0 ; Chronic pain syndrome G89.4 ; Pain in left shoulder M25.512 and High risk medication use Z79.899 [facility] [id number] [place] [address] [id number] Jan, [facility] [id number] [place] [address] [id number] Jan, [facility] [id number] [place] [address] [id number] December, [facility] [id number] [place] [address] [id number] December, [facility] [id number] [place] [address] [id number] 4117 December, Diabetes type 2, uncontrolled E11.65 ; Type 2 diabetes mellitus with diabetic neuropathy E11.40 ; Peripheral vascular disease I73.9 ; 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 and 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 [facility] [id number] [place] [address] [id number] Nov, [facility] [id number] [place] [address] [id number] Nov, [facility] [id number] [place] [address] [id number] Nov, [facility] [id number] [place] [address] [id number] Nov, Right hip pain M25.551 [facility] [id number] [place] [address] [id number]- 1588 Nov, [facility] [address] [phone] Nov, [facility] [address] [id number] [id number] Nov, Diabetes with neurological manifestations, type II or unspecified type, 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.60 [facility] [address] [id number], [place] [id number] Nov, [facility] [address] [id number], [place] [id number] Nov, [facility] [address] [id number], [place] [id number] Oct, Diabetes type 2, uncontrolled E11.65 ; Type 2 diabetes mellitus with diabetic neuropathy, unspecified E11.40 and Low back pain M54.5 [facility] [address] [id number], [place] [id number] Oct, [facility] [address] [id number], [place] [id number] Oct, [facility] [address] [id number], [place] [id number] Oct, [facility] [address] [id number], [place] [id number] Sep, [facility] [place] [id number], [place] [id number] Sep, [facility] [address] [facility] [id number], [place] [address] Sep, [facility] [address] [id number], [place] [id number] Sep, [facility] [address] [id number], [place] [id number] Sep, [facility] [address] [facility] [id number][place] [id number] Aug, 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 [facility] [address] [id number], [place] [id number] Aug, [facility] [address] [id number], [place] [id number] Aug, Allergic rhinitis due to pollen J30.1 [facility] [place] [address] [facility] [id number][place] [id number] Jul, [facility] [id number], [place] [id number] Jul, [facility] [id number], [place] [id number] Jul, [facility] [address] [id number], [place] [id number] Jun, [facility] [id number] [place] [address] [id number] Jun, Thumb tendonitis M77.8 and Ringing in ear, bilateral H93.[address] [id number][place] [id number] Jun, [facility] [id number] [place] [address] [id number] May, [place] [id number] [place] [address]- 1838 May, [place] [id number] [place] [address] [id number]- 8312 May, Pre-op evaluation Z01.818 ; Encounter for immunization Z23 ; Type 2 diabetes mellitus with diabetic peripheral angiopathy without gangrene E11.51 ; Insulin long-term use Z79.4 ; Type 2 diabetes mellitus with foot ulcer E11.621 ; Peripheral vascular disease I73.9 ; Coronary artery disease involving [place] coronary artery of [place]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 ; S/P coronary artery stent placement Z95.5 ; Osteomyelitis of right foot, unspecified chronicity M86.9 and Chronic obstructive pulmonary disease, unspecified COPD type J44.9 [facility] [id number] [place] [address] 48936- 3315 May, [id number] [place] [address] [id number] May, [facility] [id number] [place] [address] [id number] May, Diabetes type 2, uncontrolled E11.65 ; Encounter for immunization Z23 ; Osteopenia M85.80 and Allergic rhinitis due to pollen J30.1 [facility] [id number][place] [id number] May, Lumbago 724.2 [facility] [id number] [place] [address] [id number] Apr, [facility] [address] [id number] [id number] Apr, [facility] [id number] [place] [address] [id number] Apr, [facility] [id number] [place] [address] [id number] Apr, [facility] [address] [id number] 3126 Mar, [facility] [id number] [place] [address] [id number] Mar, [facility] [id number] [place] [address] [id number] Mar, [facility] [id number] [place] [address] [id number] Mar, [facility] [id number] [place] [address] [id number] Mar, [facility] [id number] [place] [address] 65582- 2543 Mar, [facility] [id number] [place] [address] [id number] Mar, [facility] [id number] [place] [address] [id number] Mar, Diabetes with neurological manifestations, type II or unspecified type, 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.60 and Severe obesity (BMI 35.0-35.9 with comorbidity) 278.01 [facility] [id number] [place] [address] [id number] Mar, [facility] [id number] [place] [address] 47332- 3665 Mar, [facility] [address] [address]- 2546 Feb, [facility] [address] [id number][place] [id number] Feb, [facility] [id number], [place] [id number] Feb, [facility] [id number], [place] [id number] Feb, Diabetes with neurological manifestations, type II or unspecified type, 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.60 [facility] [id number], [place] [id number] Feb, [facility] [id number] [place] [address] 84227- 2546 Feb, [facility] [id number], [place] [id number] Feb, [facility] [id number], [place] [id number] Feb, Follow up V67.9 ; Diabetes with neurological manifestations, type II or unspecified type, 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.60 and Congestive heart failure 428.0 [facility] [id number], [place] [id number] Jan, [facility] [id number], [place] [id number] Jan, [facility] [id number], [place] [id number] Jan, [facility] [id number], [place] [id number] December, Otitis media with effusion 381.4 ; Left arm numbness 782.0 and Osteoporosis 733.00 [facility] [id number], [place] [id number] December, [facility] [id number], [place] [id number] Nov, [facility] [id number], [place] 714661031 Nov, Serous otitis media 381.4 and Lumbago 724.2 [facility] [address] [id number] [address] 1016 14 Nov, 2014 [facility] [place] [facility] [address] [id number], [place] [address]- 7986 Nov, [facility] [address] [facility] [id number], [place] [id number] Oct, [facility] [place] [facility] [address] [facility] [id number][place] [address]- 7036 Oct, [facility] [address] [facility] [id number], [place] [id number] Oct, [facility] [place] [facility] [address] [facility] [id number][place] [address]- 5221 Oct, [facility] [address] [facility] [id number], [place] [id number] Oct, [facility] [place] [facility] [address]00565100[place], [place] [address]- 4679 Oct, [facility] [place] [facility] [address] [id number] [address]- 9924 Sep, [facility] [place] [facility] [address] [id number] [address]- 7254 Sep, [facility] [address] [id number], [place] [id number] Sep, [facility] [place] [facility] [address] [id number] [address]- 8846 Sep, [facility] [address] [facility] [id number], [place] [id number] Aug, [facility] [place] [facility] [address] [facility] [id number][place] [address]- 8588 Aug, [facility] [address] [facility] [id number], [place] [id number] Aug, [facility] [place] [facility] [address] [facility] [id number][place] [address]- 2546 Aug, [facility] [address] [facility] [id number], [place] [id number] Jul, [facility] [place] [facility] [address] [facility] [id number][place] [address]- 7676 Jul, [facility] [address] [facility] [id number] [place] [id number] Jul, [facility] [place] [facility] [address] [facility] [id number][place] [address] 2546 Jul, [facility] [address] [facility] [id number], [place] [id number] Jul, [facility] [place] [facility] [address] [facility] [id number][place] [address]- 8763 Jul, [facility] [address] [facility] [id number] [place] [address] [id number] Jun, [facility] [place] [facility] [address] [facility] [id number][place] [address]- 4084 Jun, [facility] [address] [id number], [place] [id number] May, [facility] [place] [facility] [address] [facility] [id number][place] [address]- 3329 May, [facility] [address] [facility] [id number], [place] [id number] May, [facility] [place] [facility] [address] [facility] [id number][place] [address]- 1850 May, [facility] [address] [facility] [id number], [place] [id number] May, [facility] [place] [facility] [address] [facility] [id number][place] [address]- 6537 May, [facility] [address] [facility] [id number], [place] [id number] May, [facility] [address] [facility] [id number], [place] [id number] May, [facility] [place] [facility] [address] [facility] [id number][place] [address]- 9276 May, [facility] [place] [facility] [address] [facility] [id number][place] [address]- 6592 May, [facility] [address] [facility] [id number], [place] [id number] May, [facility] [place] [facility] [address] [facility] [id number][place] [address]- 0871 May, [facility] [place] [facility] [address] [facility] [id number], [place] 919623- 1563 Apr, [facility] [address] [facility] [id number] [place] [id number] Apr, [facility] [place] [facility] [address] [facility] [id number][place] [address]- 2127 Apr, [facility] [address] [id number] [place] [id number] Apr, [facility] [address] [facility] [id number], [place] [id number] Apr, [facility] [place] [facility] [id number] [address]- 9236 Apr, [facility] [place] [facility] [address]00565100[place], [place] [address]- 4387 Apr, [facility] [address] [facility] [id number], [place] [id number] Apr, [facility] [place] [facility] [address]00565100[place], [place] [address]- 7793 Apr, [facility] [address] [facility] [id number], [place] [id number] Apr, [facility] [place] [facility] [address] [facility] [id number][place] [address]- 2581 Apr, [facility] [address] [facility] [id number], [place] [id number] Apr, [facility] [place] [facility] [address] [facility] [id number][place] [address]- 1866 Apr, [facility] [address] [facility] [id number], [place] [id number] Apr, [facility] [place] [facility] [address]00565100[place] 55661544- 1865 Apr, [facility] [address] [id number] [place] [id number] Apr, [facility] [place] [facility] [address] [facility] [id number] [place] [address]- 4255 Apr, [facility] [address] [id number] [place] [id number] Apr, [facility] [place] [facility] [address] [facility] [id number] [place] [address]- 0649 Apr, [facility] [address] [id number] [place] [id number] Mar, [facility] [place] [facility] [address] [facility] [id number][place] [address]- 2779 Mar, [facility] [address] [id number] [place] [id number] Mar, [facility] [address] [facility] [id number], [place] [id number] Mar, [facility] [place] [facility] [address] [facility] [id number][place] [address]- 7751 Mar, [facility] [place] [facility] [address] [facility] [id number][place] [address]- 5855 Mar, [facility] [address] [facility] [id number], [place] [id number] Mar, [facility] [place] [facility] [address] [facility] [id number][place] [address]- 8574 Mar, [facility] [address] [id number], [place] [id number] Mar, [facility] [place] [facility] [address] [facility] [id number][place] [address]- 3736 Mar, [facility] [address] [id number] [place] [id number] Mar, [facility] [place] [facility] [address] [facility] [id number][place] [address]- 4905 Mar, [facility] [address] [id number] [place] [id number] Mar, [facility] [place] [facility] [address] [id number] [place] [address]- 8194 Mar, [facility] [address] [id number] [place] [id number] Mar, [facility] [place] [facility] [address] [id number] [place]- 7499 Mar, [facility] [address] [id number] [place] [id number] Mar, [facility] [place] [facility] [address] [id number] [place] [address]- 1815 Mar, [facility] [address] [id number] [place] [id number] Mar, [facility] [place] [facility] [address] [facility] [id number] [place] [address]- 4578 Mar, [facility] [address] [id number] [place] [id number] Feb, [facility] [place] [facility] [address] [facility] [id number] [place] [address]- 7406 Feb, [facility] [address] [id number] [place] [id number] Feb, [facility] [place] [facility] [address] [facility] [id number] [place] [address]- 5250 Feb, [facility] [address] [id number] [place] [id number] Feb, [facility] [place] [facility] [address] [facility] [id number] [place] [address]- 2148 Feb, [facility] [address] [id number] [place] [id number] Feb, [facility] [place] [facility] [address] [facility] [id number] [place] [address]- 5366 Feb, [facility] [address] [id number] [place] [id number] Feb, [facility] [place] [facility] [address] [facility] [id number] [place] [address]- 6353 Feb, [facility] [address] [id number] [place] 719061506 Feb, [facility] [place] [facility] [address] [id number] [place] [address]- 3843 Feb, [facility] [address] [id number] [place] [id number] Feb, [facility] [place] [facility] [address] [facility] [id number] [place] [address]- 3817 Feb, [facility] [address] [id number] [place] [id number] Feb, [facility] [place] [facility] [address] [id number] [place] [address]- 5592 Feb, [facility] [address] [id number] [place] [id number] Feb, [facility] [place] [facility] [address] [facility] [id number] [place] [address]- 0586 Feb, [facility] [address] [id number] [place] [id number] Feb, [facility] [address] [id number] [place] [id number] Feb, [facility] [place] [facility] [address] [facility] [id number] [place] [address]- 2196 Feb, [facility] [place] [facility] [address] [facility] [id number] [place] [address]- 8420 Feb, [facility] [address] [id number] [place] [id number] Feb, [facility] [place] [facility] [address] [id number] [place] [address]- 5001 Feb, [facility] [address] [id number] [place] [id number] Feb, [facility] [place] [facility] [address] [id number] [place] [address]- 8041 Feb, [facility] [address] [id number] [place] 923484944 Feb, [facility] [place] [facility] [address] [id number] [place] [address]- 5779 Feb, [facility] [address] [id number] [place] [id number] Jan, [facility] [place] [facility] [address] [id number] [place] [address]- 3411 Jan, [facility] [place] [facility] [address] [facility] [id number] [place] [address]- 7556 Jan, [facility] [place] [facility] [address] [id number] [place] [address]- 8923 Jan, [facility] [place] [facility] [address] [facility] [id number] [place] [address]- 2879 Jan, [facility] [place] [facility] [address] [facility] [id number] [place] [address]- 4042 Jan, [facility] [address] [id number], [place] [id number] Jan, [facility] [place] [facility] [address] [facility] [id number] [place] [address]- 0921 Jan, [facility] [place] [facility] [address] [facility] [id number], [place] [address]- 5729 Jan, [facility] [place] [facility] [address] [facility] [id number], [place] [address]- 4203 Jan, [facility] [address] [id number], [place] 102169427 Jan, [facility] [address] [id number], [place] 192045049 Jan, [facility] [place] [facility] [address] [id number], [place] [address]- 0180 Jan, [facility] [place] [facility] [address] [id number] [address]- 1618 Jan, [facility] [address] [id number] [place] [id number] Jan, [facility] [address] [id number], [place] 914359250 Jan, [facility] [place] [facility] [address] [id number] [place] [address]- 5996 Jan, [facility] [place] [facility] [address] [facility] [id number][place] [address]- 1816 Jan, [facility] [place] [facility] [address] [facility] [id number] [place] [address]- 0693 Jan, [facility] [address] [facility] [id number], [place] [id number] December, [facility] [place] [facility] [address] [facility] [id number] [place] [address]- 2717 December, [facility] [place] [facility] [address] [facility] [id number] [place] [address]- 6811 December, [facility] [address] [facility] [id number], [place] 092115760 December, [facility] [place] [facility] [address] [facility] [id number], [place] [address]- 5239 December, [facility] [address] [facility] [id number], [place] 201515266 December, [facility] [place] [facility] [address] [facility] [id number], [place] [address]- 9626 December, [facility] [address] [facility] [id number], [place] 439010516 December, [facility] [place] [facility] [address] [facility] [id number], [place] [address]- 3646 December, [facility] [address] [facility] [id number] [place] 540626233 Nov, [facility] [place] [facility] [address] [facility] [id number] [place] [address]- 2246 Nov, [facility] [address] [facility] [id number], [place] 659449842 Nov, [facility] [place] [facility] [address] [facility] [id number] [place] 7432 Nov, [facility] [address] [facility] [id number] [place] [address]- 3257 Nov, [facility] [place] [facility] [address] [facility] [id number] [place] [address]- 0545 Nov, [facility] [address] [facility] [id number] [place] [address]- 5133 Oct, [facility] [address] [facility] [id number] [place] [id number] Oct, [facility] [address] [id number] [place] [address]- 5015 Oct, [facility] [address] [facility] [id number] [place] [address] [id number] Oct, [facility] [address] [facility] [id number][place] [address]- 0836 Oct, [facility] [id number] [id number] Sep, [facility] [address] [facility] [id number], [place] [address] Sep, [facility] [place] [address] [id number] [id number] Aug, [facility] [id number] [address] Aug, [facility] [place] [address] [facility] [id number][place] [id number] Aug, [facility] [place] [facility] [address] [facility] [id number][place] [address] Aug, [facility] [place] [facility] [address] [facility] [id number], [place] [address] Aug, [facility] [place] [address] [facility] [id number][place] [id number] Aug, [facility] [place] [facility] [address] [facility] [id number] [place] [address] Aug, [facility] [place] [facility] [address] [facility] [id number], [place] [address] Aug, [facility] [place] [address] [id number] [place] [id number] Aug, [facility] [place] [facility] [address] [facility] [id number], [place] [address] Aug, [facility] [address] [facility] [id number] [place] [id number] Jul, [facility] [place] [facility] [address] [facility] [id number][place] [address] Jul, [facility] [place] [address] [facility] [id number] [place] [id number] Jul, [facility] [place] [facility] [address] [facility] [id number][place] [address] Jul, [facility] [place] [address] [id number] [place] [id number] Jul, [facility] [place] [facility] [id number] [address] Jul, [facility] [address] [facility] [id number] [place] [id number] Jul, [facility] [place] [facility] [id number] [address] Jul, [facility] [address] [id number][place] [id number] Jun, [facility] [place] [facility] [address] [id number] [address] Jun, [facility] [address] [facility] [id number][place] [id number] Jun, [facility] [place] [facility] [address] [id number] [address] Jun, [facility] [place] [facility] [address] [facility] [id number], [place] [address] Jun, [facility] [place] [facility] [address] [id number], [place] [address] Jun, [facility] [place] [address] [id number] [place] [id number] Apr, [facility] [place] [address] [id number] [place] [id number] Mar, [facility] [place] [address] [id number] [place] [id number] Mar, [facility] [place] [address] [id number] [place] [id number] Feb, [facility] [place] [address] [id number] [place] [id number] Feb, [facility] [place] [address] [id number] [place] [id number] Feb, [facility] [place] [address] [id number] [place] [id number] December, [facility] [place] [address] [id number] [place] [id number] December, [facility] [id number], [place] [address] December, [facility] [place] [address] [id number] [place] [id number] December, [facility] [place] [address] [id number] [place] [id number] December, [facility] [place] [address] [id number] [place] [id number] Nov, [facility] [place] [address] [id number] [place] [id number] Nov, [facility] [place] [address] [id number] [place] [id number] Nov, [facility] [place] [address] [id number] [place] [id number] Oct, [facility] [place] [address] [id number] [place] [id number] Sep, [facility] [place] [address] [id number] [place] [id number] Aug, [facility] [address] [id number], [place] [address] Aug, [facility] [address] [id number] [place] [id number] Aug, [facility] [place] [address] [id number] [place] [id number] Jul, [facility] [address] [facility] [id number][place] [address] Jul, [facility] [place] [address] [id number] [place] [id number] Jul, [facility] [address] [facility] [id number][place] [address] Jul, [facility] [place] [address] [id number] [place] [id number] Jun, [facility] [address] [facility] [id number][place] [address] Jun, [facility] [address] [id number], [place] [id number] May, [facility] [id number] [address] May, [facility] [address] [id number], [place] [id number] May, [facility] [address] [facility] [id number][place] [address] May, [facility] [place] [address] [id number] [id number] Apr, [facility] [address] [id number] [place] [id number] Apr, [facility] [address] [id number] [place] [id number] Mar, [facility] [address] [id number] [place] [id number] Mar, [facility] [address] [id number] [place] [id number] Feb, [facility] [address] [id number] [place] [id number] Feb, [facility] [address] [id number] [place] [id number] Jan, [facility] [address] [id number] [place] [id number] Jan, [facility] [address] [id number] [place] [id number] Jan, [facility] [address] [id number] [place] [id number] Jan, [facility] [address] [id number] [place] [id number] December, [facility] [address] [id number] [place] [id number] December, [facility] [address] [id number] [address] Nov, [facility] [address] [id number] [place] [id number] Nov, [facility] [address] [id number] [place] [id number] Nov, [facility] [address] [id number] [place] [id number] Nov, [facility] [address] [id number] [place] [id number] Nov, [facility] [address] [facility] [id number][place] [address] Oct, [facility] [address] [facility] [id number][place] [address] Oct, [facility] [address] [id number] [place] [id number] Oct, [facility] [address] [id number] [place] [id number] Oct, [facility] [address] [id number] [place] [id number] Oct, [facility] [address] [id number] [place] [id number] Oct, [facility] [address] [id number] [place] [id number] Oct, [facility] [address] [id number] [place] [id number] Oct, [facility] [address] [id number] [place] [id number] Oct, [facility] [address] [facility] [id number][place] [address] Oct, [facility] [address] [id number] [place] [id number] Sep, [facility] [address] [id number] [place] [id number] Sep, [facility] [address] [id number] [place] [id number] Aug, [facility] [address] [id number] [place] [id number] Aug, [facility] [id number] [address] Jul, [facility] [address] [id number] [place] [address] Jul, [facility] [id number] [address] Jul, [facility] [id number] [place] [address] Jul, [facility] [id number] [address] Jul, [facility] [id number] [address] Jul, [facility] [id number], [place] [address] Jul, [facility] [id number], [place] [address] Jul, [facility] [id number], [place] [address] Jul, [facility] [id number], [place] [address] Jul, [facility] [address] [facility] [id number] [place] [address] Jul, [facility] [address] [facility] [id number][place] [address] Jul, [facility] [address] [facility] [id number][place] [address] Jul, [facility] [address] [facility] [id number][place] [address] Jul, IMMUNIZATIONS No Known Immunizations SOCIAL HISTORY Never Assessed REASON FOR VISIT order for b12 injection PLAN OF CARE VITAL SIGNS MEDICATIONS Medication Instructions Dosage Frequency Start Date End Date Duration Status Cyanocobalamin 1000 MCG/ML Fkmaqsalg-YR-eovxyw add needle and syringe with this and will be given at [facility] once every 30 days 1 ml December, December, 0 days Active RESULTS No Results [...] small vessel ischemic disease. 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
--- OUTSIDE RECORDS SUMMARY | 2018-06-20 11:07 | XMS REPORT ---
Author Author SATINDER GOOD Organization [facility] Address [address] [place] [address] Care Team Providers Care Chute Greaser Name Role Phone SATINDER GOOD Unavailable PROBLEMS Type Condition ICD9-CM Code MVD05-DX Code Onset Dates Condition Status SNOMED Code Problem Peripheral vascular disease I73.9 Active 351570995 Problem Coronary artery disease involving [place] coronary artery of [place]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 Active 0751193929283 Problem S/P coronary artery stent placement Z95.5 Active 033923517 Problem Chronic obstructive pulmonary disease, unspecified COPD type J44.9 Active 83479607 Problem Type 2 diabetes mellitus with diabetic neuropathy E11.40 Active 08127745 Problem Bilateral low back pain without sciatica M54.5 Active 095300069 Problem 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 Active 143772145 Problem 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 Active 267442102 Problem Hypercholesterolemia E78.0 Active 35292382 Problem Comprehensive diabetic foot examination, type 2 DM, encounter for E11.9 Active 52269461 Problem Type 2 diabetes mellitus with diabetic polyneuropathy E11.42 Active 886973856 Problem Obesity (BMI 30.0-34.9) E66.9 Active 308712438414664 Problem Personal history of carotid stenosis Z86.79 Active 679911552 Problem Aphasia R47.01 Active 13674291 Problem Chronic diarrhea K52.9 Active 776408665 Problem Uses walker Z99.89 Active 285389113 Problem Chronic fatigue R53.82 Active 87631732 Problem Mixed stress and urge urinary incontinence N39.46 Active 393345449 Problem Chronic pain syndrome G89.4 Active 466490936 Problem High risk medication use Z79.899 Active 012577426 Problem Osteomyelitis of right foot, unspecified chronicity M86.9 Active 60121528 Problem Fatigue, unspecified type R53.83 Active 92234158 Problem Diabetes type 2, uncontrolled E11.65 Active 294629004 Problem Full incontinence of feces R15.9 Active 426426409459576 Problem Other chronic pain G89.29 Active 49557138 Problem Functional diarrhea K59.1 Active 06979445 Problem Fecal urgency R15.2 Active 71976808 Problem Depression F32.9 Active 34095185 Problem CKD (chronic kidney disease), stage 3 (moderate) N18.3 Active 206837317 Problem Hyperlipidemia, unspecified hyperlipidemia E78.5 Active 72317538 Problem CKD (chronic kidney disease) stage 3, GFR 30-59 ml/min N18.3 Active 435303461 Problem Type 2 diabetes mellitus with diabetic peripheral angiopathy without gangrene E11.51 Active 011620862 Problem Pain in left shoulder M25.512 Active 62596123 Problem Insulin long-term use Z79.4 Active 514223372 Problem Essential hypertension I10 Active 73755150 Problem Type 2 diabetes mellitus with diabetic retinopathy, macular edema presence unspecified, with unspecified retinopathy severity E11.319 Active 21543750 Problem Chronic kidney disease, unspecified N18.9 Active 521584432 Problem Type 2 diabetes mellitus with foot ulcer E11.621 Active 944302931 Problem Frequent falls R29.6 Active 223284911 Problem GERD without esophagitis K21.9 Active 043706811 Problem Mixed hyperlipidemia E78.2 Active 588432981 ALLERGIES No Known Allergies ENCOUNTERS Encounter Location Date Diagnosis [facility] [address] [id number] Apr, [facility] [place] [address] [id number] Mar, [facility] [place] [address] [id number] Feb, Other chronic pain G89.29 [facility] [id number] [place] [address] [id number] Feb, [facility] [place] [address] [id number] Feb, [facility] [place] [address] [id number] Feb, Diabetes type 2, uncontrolled E11.65 [facility] [address] [id number] Feb, Other chronic pain G89.29 [facility] [address] [id number] [id number] Jan, [facility] [id number] [id number] Jan, [facility] [id number], [place] [id number] Jan, [facility] [id number] [place] [address] [id number] Jan, Other chronic pain G89.29 [facility] [id number], [place] [id number] December, Mixed stress and urge urinary incontinence N39.46 [facility] [address] [place] [address] [id number] December, Chronic fatigue R53.82 [address] [place] [address] [id number] December, Other chronic pain G89.29 [address]00565100[place] [id number] December, Diabetes type 2, uncontrolled E11.65 ; [...] type J44.9 and Other chronic pain G89.29 [facility] [address] [facility] [id number] [id number] December, [facility] [id number], [place] [id number] December, Medicare annual wellness visit, subsequent Z00.00 ; Type 2 diabetes mellitus with diabetic polyneuropathy E11.42 ; Chronic obstructive pulmonary disease, unspecified COPD type J44.9 ; Depression F32.9 ; Peripheral vascular disease I73.9 ; Coronary artery disease involving [place] coronary artery of [place]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 ; Hypercholesterolemia E78.0 ; GERD without esophagitis K21.9 and Chronic kidney disease, unspecified N18.9 [place] [id number] [place] [address] [id number] December, Mixed stress and urge urinary incontinence N39.46 ; Full incontinence of feces R15.9 ; Fecal urgency R15.2 ; Functional diarrhea K59.1 and Type 2 diabetes mellitus with diabetic neuropathy E11.40 [place] [id number] [place] [address] [id number] Nov, Other chronic pain G89.[address] [id number] Oct, [address] [id number] Oct, [address] [id number] Oct, Other chronic pain G89.29 [place] [id number] [place] [address] [id number] Sep, Other chronic pain G89.[address] [id number] Aug, CKD (chronic kidney disease), stage 3 (moderate) N18.3 ; Anemia, unspecified type D64.9 and Dilated pore of Ly L70.8 [place] [address] [place] [address] [id number] Aug, Other chronic pain G89.29 ; Pain in left shoulder M25.512 ; High risk medication use Z79.899 ; Uses walker Z99.89 ; Diabetes type 2, uncontrolled E11.65 and Depression F32.9 [place] [address] [place] [address] [id number] Aug, Chronic diarrhea K52.[address] [id number] Aug, Chronic diarrhea K52.9 ; Type 2 diabetes mellitus with diabetic neuropathy E11.40 ; Diabetes type 2, uncontrolled E11.65 ; Insulin long-term use Z79.4 ; Chronic obstructive pulmonary disease, unspecified COPD type J44.9 ; Chronic pain syndrome G89.4 ; Pain in left shoulder M25.512 ; Uses walker Z99.89 ; S/P coronary artery stent placement Z95.5 ; Mixed hyperlipidemia E78.2 and Essential hypertension I10 [facility] [address] [place] [address] [id number] Aug, [place] [id number] [place] [address] [id number] Jul, Diabetes type 2, uncontrolled E11.65 [place] [address] [place] [address] [id number] Jul, Diabetes type 2, uncontrolled E11.65 ; Type 2 diabetes mellitus with diabetic neuropathy E11.40 ; Insulin long-term use Z79.4 and Chronic obstructive pulmonary disease, unspecified COPD type J44.9 [address] [address] [place] [address] [id number] Jun, [facility] [id number] [place] [address] [id number] Jun, Essential hypertension I10 [place] [address] [place] [address] [id number] Jun, Essential hypertension I10 [place] [address] [place] [address] [id number] Jun, Type 2 diabetes mellitus with diabetic neuropathy E11.40 ; Type 2 diabetes mellitus with diabetic polyneuropathy E11.42 ; S/P coronary artery stent placement Z95.5 ; Obesity (BMI 30.0-34.9) E66.9 ; Mixed hyperlipidemia E78.2 ; Frequent falls R29.6 ; Chronic obstructive pulmonary disease, unspecified COPD type J44.9 ; Essential hypertension I10 ; Insulin long-term use Z79.4 and High risk medication use Z79.899 [place] [address] [place] [address] [id number] May, Diarrhea, unspecified type R19.7 ; Type 2 diabetes mellitus with diabetic neuropathy E11.40 ; Chronic obstructive pulmonary disease, unspecified COPD type J44.9 ; S/P coronary artery stent placement Z95.5 ; High risk medication use Z79.899 ; Essential hypertension I10 ; Encounter for administration of vaccine Z23 and Encounter for immunization Z23 [facility] [address] [place] [address] [id number], [place] [id number] May, Chronic obstructive pulmonary disease, unspecified COPD type J44.9 [facility] [address]00565100[place], [place] [id number] May, Type 2 diabetes mellitus with diabetic polyneuropathy E11.42 ; Encounter for immunization Z23 ; Needs flu shot Z23 ; Comprehensive diabetic foot examination, type 2 DM, encounter for E11.9 and Obesity (BMI 30.0-34.9) E66.9 [address] [place] [address] [id number] May, [place] [address] [place] [address] [id number] Apr, [place] [address] [place] [address] [id number] Apr, Essential hypertension I10 and Aphasia R47.01 [address] [place] [address] [id number] Apr, [place] [address] [place] [address] [id number] Apr, Type 2 diabetes mellitus with diabetic neuropathy E11.40 ; Frequent falls R29.6 ; Essential hypertension I10 ; S/P coronary artery stent placement Z95.5 ; High risk medication use Z79.899 ; Hyperlipidemia, unspecified hyperlipidemia E78.5 ; CKD (chronic kidney disease), stage 3 (moderate) N18.3 ; Pain in left shoulder M25.512 and Chronic obstructive pulmonary disease, unspecified COPD type J44.[address] [id number][place] [id number] Mar, [place] [address] [place] [address] [id number] Mar, Type 2 diabetes mellitus with diabetic polyneuropathy E11.42 ; Leg wound, left, initial encounter S81.802A ; Hx of shoulder surgery Z98.890 ; Acute pain of left shoulder M25.512 and Fall, initial encounter W19.XXXA [facility] [id number] [place] [address] [id number] Feb, Follow-up exam Z09 ; Hx of shoulder surgery Z98.890 ; Acute pain of left shoulder M25.512 ; Essential hypertension I10 and Leg wound, left, initial encounter S81.802A [facility] [id number] [place] [address] [id number] Feb, [facility] [id number] [place] [address] [id number] Feb, [facility] [id number] [place] [address] [id number] Feb, Chronic obstructive pulmonary disease, unspecified COPD type J44.9 [facility] [id number] [place] [address] [id number] Feb, [facility] [place] [id number] [place] [address] [id number] Jan, Generalized weakness R53.1 ; Exertional shortness of breath R06.02 and Fungal rash of trunk B36.9 [facility] [place] [id number] [place] [address] [id number] Jan, [facility] [id number] [place] [address] [id number] Jan, [facility] [id number] [place] [address] [id number] Jan, [facility] [id number] [place] [address] [id number] Jan, [facility] [id number] [place] [address] [id number] December, High risk medication use Z79.899 [facility] [place] [id number] [place] [address] [id number] December, Type 2 diabetes mellitus with diabetic neuropathy E11.40 [facility] [id number] [place] [address] [id number] December, High risk medication use Z79.899 [facility] [place] [id number] [place] [address] [id number] Nov, Diabetes type 2, uncontrolled E11.[address] [id number], [place] [id number] Nov, Medicare annual wellness visit, initial Z00.00 ; Bilateral low back pain without sciatica M54.5 ; Pain in left shoulder M25.512 ; Chronic pain syndrome G89.4 ; Type 2 diabetes mellitus with diabetic polyneuropathy E11.42 ; High risk medication use Z79.899 and Encounter for immunization Z23 [place] [id number] [place] [address] [id number] Nov, Type 2 diabetes mellitus with diabetic neuropathy E11.40 ; Coronary artery disease involving [place] coronary artery of [place]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 and CKD (chronic kidney disease), stage 3 (moderate) N18.3 [address] [place] [address] [id number] Oct, Type 2 diabetes mellitus with diabetic polyneuropathy E11.42 ; Chronic pain syndrome G89.4 ; Chronic obstructive pulmonary disease, unspecified COPD type J44.9 ; Chronic kidney disease, unspecified N18.9 and Rash R21 [address] [id number], [place] [id number] Oct, Type 2 diabetes mellitus with diabetic neuropathy E11.40 [address] [place] [address] [id number] Oct, Rash R21 and Impetigo L01.[address] [place] [address] [id number] Oct, Chronic pain syndrome G89.[id number] [place] [address] [id number] Oct, [id number] [place] [address] [id number] Sep, Sebaceous cyst L72.3 [address] [place] [address] [id number] Sep, Sebaceous cyst L72.3 [address] [place] [address] [id number] Sep, Chronic pain syndrome G89.4 ; Pain in left shoulder M25.512 and Effusion of olecranon bursa, left M25.422 [facility] [address] [id number], [place] [address] Aug, [facility] [id number] [place] [address] [id number] Aug, [facility] [id number] [place] [address] [id number] Aug, Mixed hyperlipidemia E78.2 and Chronic kidney disease, unspecified N18.9 [facility] [id number] [place] [address] [id number] Jul, Type 2 diabetes mellitus with diabetic neuropathy E11.40 ; Essential hypertension I10 and S/P coronary artery stent placement Z95.5 [facility] [id number] [place] [address] [id number] Jul, 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 [place] [address] [place] [address] [id number] Jul, Diabetes type 2, uncontrolled E11.65 ; Essential hypertension I10 and 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 [facility] [id number] [place] [address] [id number] Jul, [facility] [id number] [place] [address] [id number] Jul, [facility] [id number] [place] [address] [id number] Jul, [facility] [id number] [place] [address] [id number] Jul, Chronic obstructive pulmonary disease, unspecified COPD type J44.9 [facility] [address] [place] [address] [id number] Jun, CKD (chronic kidney disease), stage 3 (moderate) N18.3 and Anemia, unspecified type D64.9 [facility] [id number] [place] [address] [id number] Jun, Type 2 diabetes mellitus with diabetic neuropathy E11.40 ; Decreased GFR R94.4 ; CKD (chronic kidney disease), stage 3 (moderate) N18.3 and Decreased hemoglobin R71.0 [address] [id number] Jun, CKD (chronic kidney disease), stage 3 (moderate) N18.3 and Anemia, unspecified type D64.9 [address] [place] [address] [id number] Jun, Type 2 diabetes mellitus with diabetic neuropathy E11.40 ; Decreased GFR R94.4 and CKD (chronic kidney disease), stage 3 (moderate) N18.3 [place] [address] [place] [address] [id number] Jun, Type 2 diabetes mellitus with diabetic neuropathy E11.40 and Essential hypertension I10 [place] [address] [place] [address] [id number] Jun, [place] [address] [place] [address] [id number] Jun, [place] [address] [place] [address] [id number] Jun, Type 2 diabetes mellitus with diabetic neuropathy E11.40 ; S/P coronary artery stent placement Z95.5 ; Chronic obstructive pulmonary disease, unspecified COPD type J44.9 ; Essential hypertension I10 ; GERD without esophagitis K21.9 ; Peripheral vascular disease I73.9 ; Mixed hyperlipidemia E78.2 and Hospital discharge follow-up Z09 [address] [place] [address] [id number] Jun, [place] [address] [place] [address] [id number] May, Depression F32.9 and Hyperlipidemia, unspecified hyperlipidemia E78.5 [facility] [address]00565100[place], [place] [address] May, [address] [place] [address] [id number] May, [place] [address] [place] [address] [id number] May, Essential hypertension I10 ; Chronic pain syndrome G89.4 ; Pain in left shoulder M25.512 ; High risk medication use Z79.899 ; Chronic obstructive pulmonary disease, unspecified COPD type J44.9 ; S/P coronary artery stent placement Z95.5 ; Personal history of carotid stenosis Z86.79 ; Hyperlipidemia, unspecified hyperlipidemia E78.5 ; Decreased GFR R94.4 and Type 2 diabetes mellitus with diabetic polyneuropathy E11.42 [place] [address] [place] [address] [id number] May, Hemoglobin decreased R71.0 and Decreased GFR R94.[address] [id number] May, Hemoglobin decreased R71.0 and Decreased GFR R94.[address] [id number] May, [address] [id number] May, [address] [id number] Apr, [address] [id number] Apr, Type 2 diabetes mellitus with foot [...] unspecified hyperlipidemia E78.5 and Essential hypertension I10 [place] [address] [place] [address] [id number] Apr, [place] [address] [place] [address] [id number] Mar, [place] [address] [place] [address] [id number] Mar, [facility] [id number] [place] [address] [id number] Mar, [place] [address] [place] [address] [id number] Feb, [facility] [id number], [place] [id number] Feb, [facility] [id number] [place] [address] [id number] Feb, [facility] [id number] [place] [address] [id number] Jan, Type 2 diabetes mellitus with diabetic polyneuropathy E11.42 ; Hypercholesterolemia E78.0 ; Chronic pain syndrome G89.4 ; Pain in left shoulder M25.512 and High risk medication use Z79.899 [facility] [id number] [place] [address] [id number] Jan, [facility] [id number] [place] [address] [id number] Jan, [facility] [id number] [place] [address] [id number] December, [facility] [id number] [place] [address] [id number] December, [facility] [address] [id number] [id number] December, Diabetes type 2, uncontrolled E11.65 ; Type 2 diabetes mellitus with diabetic neuropathy E11.40 ; Peripheral vascular disease I73.9 ; 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 and 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 [facility] [id number] [place] [address] [id number] Nov, [facility] [id number] [place] [address] [id number] Nov, [facility] [id number] [place] [address] [id number] Nov, [facility] [id number] [place] [address] [id number] Nov, Right hip pain M25.551 [facility] [id number] [place] [address] [id number]- [phone] Nov, [facility] [address] [id number] Nov, [facility] [address] [id number], [place] [id number] Nov, Diabetes with neurological manifestations, type II or unspecified type, 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.60 [facility] [address] [id number], [place] [id number] Nov, [facility] [address] [id number], [place] [id number] Nov, [facility] [address] [id number], [place] [id number] Oct, Diabetes type 2, uncontrolled E11.65 ; Type 2 diabetes mellitus with diabetic neuropathy, unspecified E11.40 and Low back pain M54.5 [facility] [address] [id number], [place] [id number] Oct, [facility] [address] [id number], [place] [id number] Oct, [facility] [address] [id number], [place] [id number] Oct, [facility] [id number], [place] [id number] Sep, [facility] [place] [id number], [place] [id number] Sep, [facility] [address] [facility] [address] [id number], [place] [address] Sep, [facility] [address] [facility] [id number], [place] [id number] Sep, [facility] [address] [id number], [place] [phone] Sep, [facility] [address] [facility] [id number], [place] [phone] Aug, 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 [facility] [id number], [place] [id number] Aug, [facility] [address] [facility] [id number], [place] [id number] Aug, Allergic rhinitis due to pollen J30.1 [facility] [place] [address]00565100[place], [place] [id number] Jul, [facility] [address] [id number], [place] [id number] Jul, [facility] [address] [id number], [place] [id number] Jul, [facility] [address] [id number], [place] [id number] Jun, [facility] [id number] [place] [address] [id number] Jun, Thumb tendonitis M77.8 and Ringing in ear, bilateral H93.13 [place] [address] [facility] [address] [id number], [place] [id number] Jun, [facility] [id number] [place] [address] [id number] May, [place] [id number] [place] [address] May, [place] [id number] [place] [address] [id number] [phone] May, Pre-op evaluation Z01.818 ; Encounter for immunization Z23 ; Type 2 diabetes mellitus with diabetic peripheral angiopathy without gangrene E11.51 ; Insulin long-term use Z79.4 ; Type 2 diabetes mellitus with foot ulcer E11.621 ; Peripheral vascular disease I73.9 ; Coronary artery disease involving [place] coronary artery of [place]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 ; S/P coronary artery stent placement Z95.5 ; Osteomyelitis of right foot, unspecified chronicity M86.9 and Chronic obstructive pulmonary disease, unspecified COPD type J44.9 [id number] [place] [address]- 5841 May, [address] [place] [address] [id number] May, [address] [place] [address] [id number] May, Diabetes type 2, uncontrolled E11.65 ; Encounter for immunization Z23 ; Osteopenia M85.80 and Allergic rhinitis due to pollen J30.1 [facility] [id number][place] [id number] May, Lumbago 724.2 [facility] [address] [id number] [id number] Apr, [facility] [address] [id number] [id number] Apr, [facility] [id number] [place] [address] [id number] Apr, [facility] [id number] [place] [address] [id number] Apr, [facility] [address] [id number]- 0451 Mar, [facility] [id number] [place] [address] [id number] Mar, [facility] [id number] [place] [address] [id number] Mar, [facility] [id number] [place] [address] [id number] Mar, [facility] [id number] [place] [address] [id number] Mar, [facility] [id number] [place] [address] 09897- 8062 Mar, [facility] [id number] [place] [address] [id number] Mar, [facility] [id number] [place] [address] [id number] Mar, Diabetes with neurological manifestations, type II or unspecified type, 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.60 and Severe obesity (BMI 35.0-35.9 with comorbidity) 278.01 [facility] [id number] [place] [address] [id number] Mar, [facility] [id number] [place] [address] 46982- 7938 Mar, [facility] [address] [address]- 2546 Feb, [facility] [address] [id number] [id number] Feb, [facility] [id number], [place] [id number] Feb, [facility] [id number], [place] [id number] Feb, Diabetes with neurological manifestations, type II or unspecified type, 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.60 [facility] [id number], [place] [id number] Feb, [facility] [address] [place] [address] 18349- 2546 Feb, [facility] [id number] [place] [address] [id number] Feb, [facility] [id number], [place] [id number] Feb, Follow up V67.9 ; Diabetes with neurological manifestations, type II or unspecified type, 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.60 and Congestive heart failure 428.0 [facility] [id number], [place] [id number] Jan, [facility] [id number], [place] [id number] Jan, [facility] [id number], [place] [address] Jan, [facility] [id number], [place] [id number] December, Otitis media with effusion 381.4 ; Left arm numbness 782.0 and Osteoporosis 733.00 [facility] [id number], [place] [id number] December, [facility] [id number], [place] [id number] Nov, [facility] [id number], [place] [id number] Nov, Serous otitis media 381.4 and Lumbago 724.2 [facility] [address] [id number], [place] [address]- 9626 14 Nov, 2014 [facility] [place] [facility] [address] [facility] [address] [id number][place] [address]- 3586 Nov, [facility] [address] [facility] [id number], [place] [id number] Oct, [facility] [place] [facility] [address] [facility] [address] [id number], [place] [address]- 6586 Oct, [facility] [address] [facility] [id number], [place] [id number] Oct, [facility] [place] [facility] [address] [facility] [address] [id number], [place] [address]- 8581 Oct, [facility] [address] [facility] [id number][place] [id number] Oct, [facility] [place] [facility] [address]00565100[place], [place] [address]- 7746 Oct, [facility] [place] [facility] [address]00565100[place], [place] [address]- 0097 Sep, [facility] [place] [facility] [address] [id number], [place] [address]- 3386 Sep, [facility] [address] [id number], [place] [id number] Sep, [facility] [place] [facility] [address] [id number], [place] [address]- 8946 Sep, [facility] [address] [facility] [id number], [place] [id number] Aug, [facility] [place] [facility] [address] [facility] [address] [id number][place] [address]- 5396 Aug, [facility] [address] [facility] [id number], [place] [id number] Aug, [facility] [place] [facility] [address] [facility] [id number], [place] [address]- 2546 Aug, [facility] [address] [facility] [id number], [place] [id number] Jul, [facility] [place] [facility] [address] [facility] [address] [id number], [place] [address]- 3216 Jul, [facility] [address] [facility] [id number], [place] [id number] Jul, [facility] [place] [facility] [address] [facility] [address] [id number], [place] [address] 2546 Jul, [facility] [address] [facility] [id number], [place] [id number] Jul, [facility] [place] [facility] [address] [facility] [address] [id number], [place] [address]- 0389 Jul, [facility] [address] [facility] [id number] [place] [address] [id number] Jun, [facility] [place] [facility] [address]00565100[place], [place] [address]- 3296 Jun, [facility] [id number], [place] [id number] May, [facility] [place] [facility] [address]00565100[place], [place] [address]- 1797 May, [facility] [address] [facility] [id number], [place] [id number] May, [facility] [place] [facility] [address]00565100[place], [place] [address]- 0982 May, [facility] [address] [id number], [place] [id number] May, [facility] [place] [facility] [address] [facility] [address] [id number], [place] [address]- 0184 May, [facility] [address] [facility] [id number], [place] [id number] May, [facility] [address] [facility] [id number], [place] 299995977 May, [facility] [place] [facility] [address] [facility] [address] [id number], [place] [address]- 2150 May, [facility] [place] [facility] [address]00565100[place], [place] [address]- 4630 May, [facility] [address] [id number] [place] [id number] May, [facility] [place] [facility] [address] [facility] [address] [id number] [address]- 2044 May, [facility] [place] [facility] [address] [facility] [address] [id number], [place] [address]- 6939 Apr, [facility] [address] [facility] [id number] [place] 011084543 Apr, [facility] [place] [facility] [address] [facility] [address] [id number], [place] [address]- 6314 Apr, [facility] [address] [id number] [place] [id number] Apr, [facility] [address] [facility] [id number], [place] [id number] Apr, [facility] [place] [facility] [address]00565100[place], [place] [address]- 3428 Apr, [facility] [place] [facility] [address]00565100[place], [place] [address]- 1307 Apr, [facility] [address] [facility] [id number] [place] [id number] Apr, [facility] [place] [facility] [address]00565100[place], [place] [address]- 2729 Apr, [facility] [address] [facility] [id number], [place] [id number] Apr, [facility] [place] [facility] [address] [facility] [address] [id number][place] [address]- 0444 Apr, [facility] [address] [facility] [id number], [place] 646111633 Apr, [facility] [place] [facility] [address] [facility] [address] [id number], [place] 69087049- 4078 Apr, [facility] [address] [facility] [id number], [place] [id number] Apr, [facility] [place] [facility] [address] [facility] [address] [id number], [place] [address]- 0086 Apr, [facility] [address] [id number] [place] [id number] Apr, [facility] [place] [facility] [address] [facility] 2001 [id number] [place] [address]- 7060 Apr, [facility] [address] [id number] [place] [id number] Apr, [facility] [place] [facility] [address] [facility] 2001 [id number] [place] [address]- 9959 Apr, [facility] [address] [id number] [place] 976406052 Mar, [facility] [place] [facility] [address] [facility] 2001 [id number] [place] [address]- 4518 Mar, [facility] [address] [id number] [place] [id number] Mar, [facility] [address] [facility] [id number], [place] [id number] Mar, [facility] [place] [facility] [address] [facility] [address] [id number], [place] [address]- 0578 Mar, [facility] [place] [facility] [address] [facility] [address] [id number][place] [address]- 9095 Mar, [facility] [address] [facility] [id number], [place] 820602570 Mar, [facility] [place] [facility] [address] [facility] 2001 [id number], [place] [address]- 5362 Mar, [facility] [address] [facility] [id number], [place] [id number] Mar, [facility] [place] [facility] [address] [facility] [address] [id number], [place] [address]- 1255 Mar, [facility] [address] [id number] [place] [id number] Mar, [facility] [place] [facility] [address] [facility] [address] [id number], [place] [address]- 8756 Mar, [facility] [address] [id number], [place] [id number] Mar, [facility] [place] [facility] [address] [id number] [place] [address]- 8156 Mar, [facility] [address] [id number] [place] [id number] Mar, [facility] [place] [facility] [address] [facility] [address] [id number] [place] [address]- 6621 Mar, [facility] [address] [id number] [place] [id number] Mar, [facility] [place] [facility] [address] [id number] [place] [address]- 0997 Mar, [facility] [address] [id number] [place] [id number] Mar, [facility] [place] [facility] [address] [facility] [address] [id number] [place] [address]- 2922 Mar, [facility] [address] [id number] [place] [id number] Feb, [facility] [place] [facility] [address] [facility] [address] [id number] [place] [address]- 6646 Feb, [facility] [address] [id number] [place] 111683076 Feb, [facility] [place] [facility] [address] [facility] 2001 [id number] [place] [address]- 7361 Feb, [facility] [address] [id number] [place] 222835213 Feb, [facility] [place] [facility] [address] [facility] 2001 [id number] [place] [address]- 0999 Feb, [facility] [address] [id number] [place] [id number] Feb, [facility] [place] [facility] [address] [facility] 2001 [id number] [place] [address]- 8735 Feb, [facility] [address] [id number] [place] 805281040 Feb, [facility] [place] [facility] [address] [facility] [address] [id number] [place] [address]- 6765 Feb, [facility] [address] [id number] [place] 694131362 Feb, [facility] [place] [facility] [address] [id number] [place] [address]- 0222 Feb, [facility] [address] [id number] [place] [id number] Feb, [facility] [place] [facility] [address] [id number] [place] [address]- 4579 Feb, [facility] [address] [id number] [place] [id number] Feb, [facility] [place] [facility] [address] [id number] [place] [address]- 6070 Feb, [facility] [address] [id number] [place] [id number] Feb, [facility] [place] [facility] [address] [facility] 2001 [id number] [place] [address]- 7527 Feb, [facility] [address] [id number] [place] [id number] Feb, [facility] [address] [id number] [place] 536921559 Feb, [facility] [place] [facility] [address] [facility] 2001 [id number] [place] [address]- 7316 Feb, [facility] [place] [facility] [address] [id number] [place] [address]- 7432 Feb, [facility] [address] [id number] [place] 837216641 Feb, [facility] [place] [facility] [address] [id number] [place] [address]- 5673 Feb, [facility] [address] [id number] [place] [id number] Feb, [facility] [place] [facility] [address] [id number] [place] [address]- 6930 Feb, [facility] [address] [id number], [place] [id number] Feb, [facility] [place] [facility] [address] [id number] [place] [address]- 2316 Feb, [facility] [address] [id number] [place] 796273227 Jan, [facility] [place] [facility] [address] [id number] [place] [address]- 7871 Jan, [facility] [place] [facility] [address] [id number] [place] [address]- 3296 Jan, [facility] [place] [facility] [address] [id number] [place] [address]- 8802 Jan, [facility] [place] [facility] [address] [facility] 2001 [id number] [place] [address]- 7008 Jan, [facility] [place] [facility] [address] [facility] [address] [id number] [place] [address]- 7816 Jan, [facility] [address] [id number], [place] [id number] Jan, [facility] [place] [facility] [address] [facility] [address] [id number] [place] [address]- 0090 Jan, [facility] [place] [facility] [address] [facility] [address] [id number] [place] [address]- 5883 Jan, [facility] [place] [facility] [address] [facility] [address] [id number], [place] [address]- 5751 Jan, [facility] [address] [id number], [place] 334733254 Jan, [facility] [address] [id number] [place] 860352892 Jan, [facility] [place] [facility] [address] [id number] [place] [address]- 3533 Jan, [facility] [place] [facility] [address] [facility] [address] [id number] [place] [address]- 6977 Jan, [facility] [address] [id number] [place] 989797651 Jan, [facility] [address] [id number] [place] 450584057 Jan, [facility] [place] [facility] [address] [id number] [place] [address]- 2736 Jan, [facility] [place] [facility] [address] [id number] [place] [address] 2546 Jan, [facility] [place] [facility] [address] [facility] [address] [id number] [place] [address]- 3536 Jan, [facility] [address] [id number], [place] [id number] December, [facility] [place] [facility] [address] [id number] [place] [address]- 5686 December, [facility] [place] [facility] [address] [facility] 2001 [id number] [place] [address]- 3226 December, [facility] [address] [facility] [id number], [place] 766375578 December, [facility] [place] [facility] [address] [facility] [address] [id number], [place] [address]- 0167 December, [facility] [address] [facility] [id number] [place] [id number] December, [facility] [place] [facility] [address] [facility] [address] [id number], [place] [address]- 3946 December, [facility] [address] [facility] [id number], [place] 310556006 December, [facility] [place] [facility] [address] [facility] [address] [id number], [place] [address]- 7506 December, [facility] [address] [facility] [id number] [place] 520427666 Nov, [facility] [place] [facility] [address] [facility] [address] [id number] [place] [address]- 5956 Nov, [facility] [address] [facility] [id number], [place] [id number] Nov, [facility] [place] [facility] [address] [facility] [address] [id number] [place] [address]- 4842 Nov, [facility] [address] [facility] [address] [id number] [place] [address]- 5989 Nov, [facility] [place] [facility] [address] [facility] [address] [id number] [place] [address]- 4507 Nov, [facility] [place] [facility] [address] [facility] [address] [id number] [place] [address]- 5075 Oct, [facility] [address] [facility] [id number], [place] 201416134 Oct, [facility] [address] [facility] [address] [id number] [place] [address]- 1757 Oct, [facility] [address] [facility] [id number], [place] 033515452 Oct, [facility] [address] [id number], [place] [address]- 2622 Oct, [facility] [id number], [place] 349661079 Sep, [facility] [address] [facility] 2001 [id number], [place] [address]- 2198 Sep, [facility] [address] [facility] [id number], [place] 530694794 Aug, [facility] [place] [facility] [address] [id number], [place] [address]- 3582 Aug, [facility] [id number], [place] 181561856 Aug, [facility] [place] [facility] [address] [facility] [address] [id number], [place] [address]- 3082 Aug, [facility] [place] [facility] [address] [facility] 2001 [id number], [place] [address]- 8482 Aug, [facility] [address] [facility] [id number], [place] [id number] Aug, [facility] [place] [facility] [address] [facility] [address] [id number] [place] [address]- 4756 Aug, [facility] [place] [facility] [address] [facility] 2001 [id number], [place] [address]- 4098 Aug, [facility] [address] [id number] [place] [id number] Aug, [facility] [place] [facility] [address] [facility] [address] [id number], [place] [address] Aug, [facility] [place] [address] [facility] [id number] [place] [id number] Jul, [facility] [place] [facility] [address] [id number], [place] [address] Jul, [facility] [place] [address] [id number] [place] [id number] Jul, [facility] [place] [facility] [address] [facility] [address] [id number], [place] [address] Jul, [facility] [place] [address] [id number] [place] [id number] Jul, [facility] [place] [facility] [id number] [address] Jul, [facility] [place] [address] [facility] [id number] [place] [id number] Jul, [facility] [place] [facility] [id number], [place] [address] Jul, [facility] [place] [address] [id number] [place] [id number] Jun, [facility] [place] [facility] [address] [facility] [address] [id number], [place] [address] Jun, [facility] [place] [address] [facility] [id number][place] [id number] Jun, [facility] [place] [facility] [address] [facility] [address] [id number], [place] [address] Jun, [facility] [place] [facility] [address] [facility] [address] [id number], [place] [address] Jun, [facility] [place] [facility] [address] [facility] [address] [id number], [place] [address] Jun, [facility] [place] [address] [id number] [place] [id number] Apr, [facility] [place] [address] [id number] [place] [id number] Mar, [facility] [place] [address] [id number] [place] [id number] Mar, [facility] [place] [address] [id number] [place] [id number] Feb, [facility] [place] [address] [id number] [place] [id number] Feb, [facility] [place] [address] [id number] [place] [address] Feb, [facility] [place] [address] [id number] [place] [id number] December, [facility] [place] [address] [id number] [place] [id number] [place], [facility] [address], [place] [address] December, [facility] [place] [address] [id number] [place] [id number] December, [facility] [place] [address] [id number] [place] [id number] December, [facility] [place] [address] [id number] [place] [id number] Nov, [facility] [place] [address] [id number] [place] [id number] Nov, [facility] [place] [address] [id number] [place] [id number] Nov, [facility] [place] [address] [id number] [place] [address] Oct, [facility] [place] [address] [id number] [place] [address] Sep, [facility] [place] [address] [id number] [place] [id number] Aug, [facility] [address], [place] [address] Aug, [facility] [place] [address] [id number] [place] [id number] Aug, [facility] [place] [address] [id number] [place] [id number] Jul, [facility] [address] [facility] [address] [id number], [place] [address] Jul, [facility] [place] [address] [id number] [place] [id number] Jul, [facility] [address] [facility] [address] [id number] [address] Jul, [facility] [place] [address] [id number] [place] [id number] Jun, [facility] [address] [facility] [address] [id number] [address] Jun, [facility] [place] [address] [id number][place] [id number] May, [facility] [address] [address] May, [facility] [place] [address] [id number][place] [id number] May, [facility] [address] [facility] [address] [id number] [address] May, [facility] [place] [address] [id number], [place] [id number] Apr, [facility] [place] [address] [id number] [place] [id number] Apr, [facility] [place] [address] [id number] [place] [id number] Mar, [facility] [place] [address] [id number] [place] [id number] Mar, [facility] [place] [address] [id number] [place] [id number] Feb, [facility] [place] [address] [id number] [place] [id number] Feb, [facility] [place] [address] [id number] [place] [address] Jan, [facility] [place] [address] [id number] [place] [id number] Jan, [facility] [place] [address] [id number] [place] [id number] Jan, [facility] [place] [address] [id number] [place] [id number] Jan, [facility] [place] [address] [id number] [place] [address] December, [facility] [place] [address] [id number] [place] [id number] December, [facility] [address] [id number] [place] [address] Nov, [facility] [place] [address] [id number] [place] [id number] Nov, [facility] [place] [address] [id number] [place] [id number] Nov, [facility] [place] [address] [id number] [place] [id number] Nov, [facility] [place] [address] [id number] [place] [id number] Nov, [facility] [address] [facility] [address] [id number] [place] [address] Oct, [facility] [address] [address] [id number] [address] Oct, [facility] [address] [id number] [place] [id number] Oct, [facility] [address] [id number] [place] [id number] Oct, [facility] [address] [id number] [place] [id number] Oct, [facility] [address] [id number] [place] [id number] Oct, [facility] [address] [id number] [place] [id number] Oct, [facility] [address] [id number] [place] [id number] Oct, [facility] [address] [id number] [place] [id number] Oct, [facility] [address] [id number], [place] [address] Oct, [facility] [address] [id number] [place] [id number] Sep, [facility] [address] [id number] [place] [id number] Sep, [facility] [address] [id number] [place] [id number] Aug, [facility] [address] [id number] [place] [id number] Aug, [facility] [address] [id number], [place] [address] Jul, [facility] [id number] [place] [address] Jul, [facility] [place] [facility] [id number], [place] [address] Jul, [facility] [place] [facility] [address] [id number], [place] [address] Jul, [facility] [place] [facility] [id number], [place] [address] Jul, [facility] [place] [facility] [id number], [place] [address] Jul, [facility] [place] [facility] [address] [id number], [place] [address] Jul, [facility] [place] [facility] [id number], [place] [address] Jul, [facility] [place] [facility] [id number], [place] [address] Jul, [facility] [place] [facility] [id number], [place] [address] Jul, [facility] [place] [facility] [address] [id number] [place] [address] Jul, [facility] [address] [id number], [place] [address] Jul, [facility] [address] [id number], [place] [address] Jul, [facility] [address] [id number], [place] [address] Jul, IMMUNIZATIONS No Known Immunizations SOCIAL HISTORY Never Assessed REASON FOR VISIT Diabetes visit Chad GRIMALDO PLAN OF CARE Activity Details Follow Up 3 Months, prn Reason:CHM DM VITAL SIGNS Height 69 in 2018-01-11 Weight 226 lbs 2018-01-11 Temperature 97.8 degrees Fahrenheit 2018-01-11 Heart Rate 86 bpm 2018-01-11 Respiratory Rate 16 2018-01-11 BMI 33.37 kg/m2 2018-01-11 Blood pressure systolic 124 mmHg 2018-01-11 Blood pressure diastolic 68 mmHg 2018-01-11 MEDICATIONS Medication Instructions Dosage Frequency Start Date End Date Duration Status Walker - Rolator walker with seat and hand brakes Jan, Active ProAir HFA 108 (90 Base) mcg/act Inhalation 4 times a day 2 puffs as needed 6h Active Prilosec 20 mg Orally Once a day 1 capsule 24h Active Lancets - subcutaneously 3 times a day as directed 8h Jun, Active NovoLog Flexpen 100 UNIT/ML Subcutaneous 3 times a day before meals (if bs less than 90 then hold ) 5 units Aug, Active Folic Acid 1 MG Orally Once a day 1 tablet 24h Active Lasix 20 mg Orally Once a day 1 tablet 24h Active Disposable Brief X-Large - externally 4 times a day as directed 6h December, Active Victoza 18 MG/3ML INJECT (1.8) MG SUBCUTANEOUSLY ONCE DAILY IN THE MORNING.... (DOES HIMSELF) Active Levemir Flexpen 100 UNIT/ML Subcutaneous 2 times a day 46 units 12h Active Cetirizine HCl 10 MG TAKE ONE (1) TABLET BY MOUTH DAILY. Active Escitalopram Oxalate 20 MG Orally Once a day TAKE ONE (1) TABLET BY MOUTH DAILY... 24h Active Carvedilol 3.125 MG Orally 2 times a day 1/2 tablet in am and in pm 12h Active Tramadol HCl 50 mg Orally 3 times a day, must last 28 days 1 tablet Active Aspirin Adult Low Strength 81 MG Orally Once a day 1 tablet 24h Active Nitroglycerin 0.4 MG Active UltiCare Micro Pen [place] 32G X 4 MM USE TWICE DAILY... Active Domingo Contour Test - TEST BLOOD SUGAR (4) TIMES DAILY. Active Atorvastatin Calcium 40 MG TAKE ONE (1) TABLET BY MOUTH DAILY... Active RESULTS No Results PROCEDURES Procedure Date Ordered Result Body Site ROUTINE VENIPUNCTURE 2018-01-11 N/A GLYCATED HEMOGLOBIN TEST January 11, 2018 [facility] VISIT ESTABLISHED PATIENT January 11, 2018 [facility], 2018 INSTRUCTIONS MEDICATIONS ADMINISTERED No Known Medications [...] Surgical History Left eye retinal eye repair ([facility]) 06/2014 Surgical History amputation, toe-right third toe ([facility]) 2013 Surgical History Right eye retinal eye repair ([facility]) 09/2014 Surgical History heart cath with stent [...]
--- OUTSIDE RECORDS SUMMARY | 2018-06-20 11:08 | XMS REPORT ---
Author Author SATINDER GOOD Organization [facility] Address [address] [place] [address] Care Team Providers Care Wheel Roller Name Role Phone SATINDER GOOD Unavailable PROBLEMS Type Condition ICD9-CM Code [id number] Code Onset Dates Condition Status SNOMED Code Problem Peripheral vascular disease I73.9 Active 842758085 Problem Coronary artery disease involving egegik coronary artery of egegik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 Active 7920775771783 Problem S/P coronary artery stent placement Z95.5 Active 799207364 Problem Chronic obstructive pulmonary disease, unspecified COPD type J44.9 Active 82886495 Problem Type 2 diabetes mellitus with diabetic neuropathy E11.40 Active 29577161 Problem Bilateral low back pain without sciatica M54.5 Active 346533566 Problem 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 Active 586333051 Problem 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 Active 444989412 Problem Hypercholesterolemia E78.0 Active 91780855 Problem Comprehensive diabetic foot examination, type 2 DM, encounter for E11.9 Active 32306298 Problem Type 2 diabetes mellitus with diabetic polyneuropathy E11.42 Active 306171125 Problem Obesity (BMI 30.0-34.9) E66.9 Active 880975184960421 Problem Personal history of carotid stenosis Z86.79 Active 458348899 Problem Aphasia R47.01 Active 06242645 Problem Chronic diarrhea K52.9 Active 138812710 Problem Uses walker Z99.89 Active 963696405 Problem Chronic fatigue R53.82 Active 68696156 Problem Mixed stress and urge urinary incontinence N39.46 Active 103607657 Problem Chronic pain syndrome G89.4 Active 940583611 Problem High risk medication use Z79.899 Active 871356344 Problem Osteomyelitis of right foot, unspecified chronicity M86.9 Active 31390818 Problem Fatigue, unspecified type R53.83 Active 92412274 Problem Diabetes type 2, uncontrolled E11.65 Active 700974556 Problem Full incontinence of feces R15.9 Active 809690045333273 Problem Other chronic pain G89.29 Active 73203540 Problem Functional diarrhea K59.1 Active 67921704 Problem Fecal urgency R15.2 Active 82252780 Problem Depression F32.9 Active 16613190 Problem CKD (chronic kidney disease), stage 3 (moderate) N18.3 Active 093659197 Problem Hyperlipidemia, unspecified hyperlipidemia E78.5 Active 69811986 Problem CKD (chronic kidney disease) stage 3, GFR 30-59 ml/min N18.3 Active 518933642 Problem Type 2 diabetes mellitus with diabetic peripheral angiopathy without gangrene E11.51 Active 000345522 Problem Pain in left shoulder M25.512 Active 68324709 Problem Insulin long-term use Z79.4 Active 776238202 Problem Essential hypertension I10 Active 75974392 Problem Type 2 diabetes mellitus with diabetic retinopathy, macular edema presence unspecified, with unspecified retinopathy severity E11.319 Active 66277016 Problem Chronic kidney disease, unspecified N18.9 Active 380971338 Problem Type 2 diabetes mellitus with foot ulcer E11.621 Active 087617603 Problem Frequent falls R29.6 Active 553035990 Problem GERD without esophagitis K21.9 Active 053762805 Problem Mixed hyperlipidemia E78.2 Active 995225484 ALLERGIES No Information ENCOUNTERS Encounter [facility] Date [facility] [address] [id number] Feb, Other chronic pain G89.29 [facility] [id number] [place] [address] [id number] Feb, [facility] [id number] [place] [address] [id number] Feb, [facility] [id number] [place] [address] [id number] Feb, Diabetes type 2, uncontrolled E11.65 [facility] [id number] [place] [address] [id number] Feb, Other chronic pain G89.29 [facility] [id number] [place] [address] [id number] Jan, [facility] [address] [id number] Jan, [facility] [address] [facility] [id number] [id number] Jan, [address] [id number] Jan, Other chronic pain G89.29 [place] [id number] [id number] December, Mixed stress and urge urinary incontinence N39.46 [address] [id number] December, Chronic fatigue R53.82 [address] [place] [address] [id number] December, Other chronic pain G89.29 [address] [id number] December, Diabetes type 2, uncontrolled E11.65 ; [...] type J44.9 and Other chronic pain G89.29 [facility] [address] [id number] [address] December, [id number] [id number] December, Medicare annual wellness visit, subsequent Z00.00 ; Type 2 diabetes mellitus with diabetic polyneuropathy E11.42 ; Chronic obstructive pulmonary disease, unspecified COPD type J44.9 ; Depression F32.9 ; Peripheral vascular disease I73.9 ; Coronary artery disease involving egegik coronary artery of egegik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 ; Hypercholesterolemia E78.0 ; GERD without esophagitis K21.9 and Chronic kidney disease, unspecified N18.9 [address] [place] [address] [id number] December, Mixed stress and urge urinary incontinence N39.46 ; Full incontinence of feces R15.9 ; Fecal urgency R15.2 ; Functional diarrhea K59.1 and Type 2 diabetes mellitus with diabetic neuropathy E11.40 [address] [place] [address] [id number] Nov, Other chronic pain G89.29 [place] [id number] [place] [address] [id number] Oct, [place] [address] [place] [address] [id number] Oct, [address] [id number] Oct, Other chronic pain G89.29 [address] [id number] [place] [address] [id number] Sep, Other chronic pain G89.29 [address] [address] [place] [address] [id number] Aug, CKD (chronic kidney disease), stage 3 (moderate) N18.3 ; Anemia, unspecified type D64.9 and Dilated pore of Ly L70.8 [place] [address] [place] [address] [id number] Aug, Other chronic pain G89.29 ; Pain in left shoulder M25.512 ; High risk medication use Z79.899 ; Uses walker Z99.89 ; Diabetes type 2, uncontrolled E11.65 and Depression F32.9 [address] [address] [place] [address] [id number] Aug, Chronic diarrhea K52.9 [place] [address] [place] [address] [id number] Aug, Chronic diarrhea K52.9 ; Type 2 diabetes mellitus with diabetic neuropathy E11.40 ; Diabetes type 2, uncontrolled E11.65 ; Insulin long-term use Z79.4 ; Chronic obstructive pulmonary disease, unspecified COPD type J44.9 ; Chronic pain syndrome G89.4 ; Pain in left shoulder M25.512 ; Uses walker Z99.89 ; S/P coronary artery stent placement Z95.5 ; Mixed hyperlipidemia E78.2 and Essential hypertension I10 [address] [id number] Aug, [address] [place] [address] [id number] Jul, Diabetes type 2, uncontrolled E11.65 [address] [place] [address] [id number] Jul, Diabetes type 2, uncontrolled E11.65 ; Type 2 diabetes mellitus with diabetic neuropathy E11.40 ; Insulin long-term use Z79.4 and Chronic obstructive pulmonary disease, unspecified COPD type J44.9 [address] [place] [address] [id number] Jun, [address] [place] [address] [id number] Jun, Essential hypertension I10 [address] [place] [address] [id number] Jun, Essential hypertension I10 [address] [place] [address] [id number] Jun, Type 2 diabetes mellitus with diabetic neuropathy E11.40 ; Type 2 diabetes mellitus with diabetic polyneuropathy E11.42 ; S/P coronary artery stent placement Z95.5 ; Obesity (BMI 30.0-34.9) E66.9 ; Mixed hyperlipidemia E78.2 ; Frequent falls R29.6 ; Chronic obstructive pulmonary disease, unspecified COPD type J44.9 ; Essential hypertension I10 ; Insulin long-term use Z79.4 and High risk medication use Z79.[address] [id number] [id number] May, Diarrhea, unspecified type R19.7 ; Type 2 diabetes mellitus with diabetic neuropathy E11.40 ; Chronic obstructive pulmonary disease, unspecified COPD type J44.9 ; S/P coronary artery stent placement Z95.5 ; High risk medication use Z79.899 ; Essential hypertension I10 ; Encounter for administration of vaccine Z23 and Encounter for immunization Z23 [address] [id number] [id number] May, Chronic obstructive pulmonary disease, unspecified COPD type J44.9 [address] [place] [address] [id number] May, Type 2 diabetes mellitus with diabetic polyneuropathy E11.42 ; Encounter for immunization Z23 ; Needs flu shot Z23 ; Comprehensive diabetic foot examination, type 2 DM, encounter for E11.9 and Obesity (BMI 30.0-34.9) E66.9 [address] [id number] [place] [address] [id number] May, [place] [address] [place] [address] [id number] Apr, [address] [id number] Apr, Essential hypertension I10 and Aphasia R47.01 [place] [address] [place] [address] [id number] Apr, [address] [address] [place] [address] [id number] Apr, Type 2 diabetes mellitus with diabetic neuropathy E11.40 ; Frequent falls R29.6 ; Essential hypertension I10 ; S/P coronary artery stent placement Z95.5 ; High risk medication use Z79.899 ; Hyperlipidemia, unspecified hyperlipidemia E78.5 ; CKD (chronic kidney disease), stage 3 (moderate) N18.3 ; Pain in left shoulder M25.512 and Chronic obstructive pulmonary disease, unspecified COPD type J44.9 [address] [place] [address] [id number] Mar, [address] [place] [address] [id number] Mar, Type 2 diabetes mellitus with diabetic polyneuropathy E11.42 ; Leg wound, left, initial encounter S81.802A ; Hx of shoulder surgery Z98.890 ; Acute pain of left shoulder M25.512 and Fall, initial encounter W19.XXXA [address] [place] [place] [address] [id number] Feb, Follow-up exam Z09 ; Hx of shoulder surgery Z98.890 ; Acute pain of left shoulder M25.512 ; Essential hypertension I10 and Leg wound, left, initial encounter S81.802A [facility] [id number] [place] [address] [id number] Feb, [facility] [id number] [place] [address] [id number] Feb, [facility] [id number] [place] [address] [id number] Feb, Chronic obstructive pulmonary disease, unspecified COPD type J44.9 [facility] [id number] [place] [address] [id number] Feb, [facility] [id number] [place] [address] [id number] Jan, Generalized weakness R53.1 ; Exertional shortness of breath R06.02 and Fungal rash of trunk B36.9 [facility] [id number] [place] [address] [id number] Jan, [facility] [id number] [place] [address] [id number] Jan, [facility] [id number] [place] [address] [id number] Jan, [facility] [address] [place] [address] [id number] Jan, [facility] [address] [place] [address] [id number] December, High risk medication use Z79.899 [facility] [id number] [place] [address] [id number] December, Type 2 diabetes mellitus with diabetic neuropathy E11.40 [facility] [id number] [place] [address] [id number] December, High risk medication use Z79.899 [facility] [id number] [place] [address] [id number] Nov, Diabetes type 2, uncontrolled E11.65 [facility] [id number] [place] [address] [id number] Nov, Medicare annual wellness visit, initial Z00.00 ; Bilateral low back pain without sciatica M54.5 ; Pain in left shoulder M25.512 ; Chronic pain syndrome G89.4 ; Type 2 diabetes mellitus with diabetic polyneuropathy E11.42 ; High risk medication use Z79.899 and Encounter for immunization Z23 [address] [place] [address] [id number] Nov, Type 2 diabetes mellitus with diabetic neuropathy E11.40 ; Coronary artery disease involving egegik coronary artery of egegik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 and CKD (chronic kidney disease), stage 3 (moderate) N18.3 [address] [place] [address] [id number] Oct, Type 2 diabetes mellitus with diabetic polyneuropathy E11.42 ; Chronic pain syndrome G89.4 ; Chronic obstructive pulmonary disease, unspecified COPD type J44.9 ; Chronic kidney disease, unspecified N18.9 and Rash R21 [address] [place] [address] [id number] Oct, Type 2 diabetes mellitus with diabetic neuropathy E11.40 [address] [place] [place] [address] [id number] Oct, Rash R21 and Impetigo L01.[address] [id number] Oct, Chronic pain syndrome G89.4 [address] [place] [address] [id number] Oct, [address] [place] [address] [id number] Sep, Sebaceous cyst L72.3 [address] [address] [place] [address] [id number] Sep, Sebaceous cyst L72.3 [address] [place] [address] [place] [address] [id number] Sep, Chronic pain syndrome G89.4 ; Pain in left shoulder M25.512 and Effusion of olecranon bursa, left M25.422 [facility] [id number] [place] [address] [id number] 3306 Aug, [place] [id number] [place] [address] [id number] Aug, [facility] [id number] [place] [address] [id number] Aug, Mixed hyperlipidemia E78.2 and Chronic kidney disease, unspecified N18.9 [facility] [id number] [place] [address] [id number] Jul, Type 2 diabetes mellitus with diabetic neuropathy E11.40 ; Essential hypertension I10 and S/P coronary artery stent placement Z95.5 [facility] [id number] [place] [address] [id number] Jul, 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 [facility] [address] [id number] Jul, Diabetes type 2, uncontrolled E11.65 ; Essential hypertension I10 and 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 [facility] [id number] [place] [address] [id number] Jul, [facility] [id number] [place] [address] [id number] Jul, [facility] [id number] [place] [address], [place] [id number] Jul, [facility] [id number] [place] [address], [place] [id number] Jul, Chronic obstructive pulmonary disease, unspecified COPD type J44.9 [facility] [id number] [place] [address] [id number] Jun, CKD (chronic kidney disease), stage 3 (moderate) N18.3 and Anemia, unspecified type D64.9 [facility] [id number] [place] [address] [id number] Jun, Type 2 diabetes mellitus with diabetic neuropathy E11.40 ; Decreased GFR R94.4 ; CKD (chronic kidney disease), stage 3 (moderate) N18.3 and Decreased hemoglobin R71.0 [facility] [id number] [place] [address] [id number] Jun, CKD (chronic kidney disease), stage 3 (moderate) N18.3 and Anemia, unspecified type D64.9 [facility] [address] [id number] Jun, Type 2 diabetes mellitus with diabetic neuropathy E11.40 ; Decreased GFR R94.4 and CKD (chronic kidney disease), stage 3 (moderate) N18.3 [facility] [address] [place] [address] [id number] Jun, Type 2 diabetes mellitus with diabetic neuropathy E11.40 and Essential hypertension I10 [address] [id number] [place] [address] [id number] Jun, [address] [place] [place] [address] [id number] Jun, [address] [place] [address] [id number] Jun, Type 2 diabetes mellitus with diabetic neuropathy E11.40 ; S/P coronary artery stent placement Z95.5 ; Chronic obstructive pulmonary disease, unspecified COPD type J44.9 ; Essential hypertension I10 ; GERD without esophagitis K21.9 ; Peripheral vascular disease I73.9 ; Mixed hyperlipidemia E78.2 and Hospital discharge follow-up Z09 [address] [place] [address] [id number] Jun, [address] [id number] [place] [address] [id number] May, Depression F32.9 and Hyperlipidemia, unspecified hyperlipidemia E78.5 [facility] [address] [address] May, [address], [place] [id number] May, [address] [place] [address] [id number] May, Essential hypertension I10 ; Chronic pain syndrome G89.4 ; Pain in left shoulder M25.512 ; High risk medication use Z79.899 ; Chronic obstructive pulmonary disease, unspecified COPD type J44.9 ; S/P coronary artery stent placement Z95.5 ; Personal history of carotid stenosis Z86.79 ; Hyperlipidemia, unspecified hyperlipidemia E78.5 ; Decreased GFR R94.4 and Type 2 diabetes mellitus with diabetic polyneuropathy E11.42 [facility] [id number], [place] [id number] May, Hemoglobin decreased R71.0 and Decreased GFR R94.4 [facility] [id number] [place] [address] [id number] May, Hemoglobin decreased R71.0 and Decreased GFR R94.4 [facility] [id number] [place] [address] [id number] May, [facility] [id number] [place] [address] [id number] May, [facility] [id number] [place] [address] [id number] Apr, [facility] [id number] [place] [address] [id number] Apr, Type 2 diabetes mellitus with foot [...] hypertension I10 [facility] [id number] [place] [address] [id number] Apr, [facility] [id number] [place] [address] [id number] Mar, [facility] [id number], [place] [id number] Mar, [facility] [address]005[address] [address] Mar, [facility] [id number] [place] [address] [id number] Feb, [facility] [id number] [place] [address] [id number] Feb, [facility] [id number] [place] [address] [id number] Feb, [facility] [id number] [place] [address] [id number] Jan, Type 2 diabetes mellitus with diabetic polyneuropathy E11.42 ; Hypercholesterolemia E78.0 ; Chronic pain syndrome G89.4 ; Pain in left shoulder M25.512 and High risk medication use Z79.899 [facility] [address] [place] [address] [id number] Jan, [facility] [address] [place] [address] [id number] Jan, [facility] [address] [place] [address] [id number] December, [address] [id number] December, [place] [address] [address] December, Diabetes type 2, uncontrolled E11.65 ; Type 2 diabetes mellitus with diabetic neuropathy E11.40 ; Peripheral vascular disease I73.9 ; 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 and 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 [facility] [id number] [place] [address] [id number] Nov, [facility] [address] [place] [address] [id number] Nov, [facility] [address] [place] [address] [id number] Nov, [facility] [address] [place] [address] [id number] Nov, Right hip pain M25.551 [facility] [address] [id number]- 5182 Nov, [place] [address] 337668- 3587 Nov, [facility] [address] [place] [address] [id number] Nov, Diabetes with neurological manifestations, type II or unspecified type, 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.60 [facility] [address] [id number][place] [id number] Nov, [facility] [address] [id number], [place] [id number] Nov, [facility] [address] [id number], [place] [id number] Oct, Diabetes type 2, uncontrolled E11.65 ; Type 2 diabetes mellitus with diabetic neuropathy, unspecified E11.40 and Low back pain M54.5 [facility] [address] [id number], [place] [id number] Oct, [facility] [address] [id number], [place] [id number] Oct, [facility] [address] [id number], [place] [id number] Oct, [facility] [address] [id number], [place] [id number] Sep, [facility] [address] [id number], [place] [id number] Sep, [facility] [address] [id number] [address] Sep, [facility] [address] [id number], [place] [id number] Sep, [facility] [address] [id number], [place] [id number] Sep, [facility] [id number], [place] [id number] Aug, 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 [facility] [address] [id number], [place] [id number] Aug, [facility] [address] [id number], [place] [id number] Aug, Allergic rhinitis due to pollen J30.1 [facility] [place] [address] [id number] [place] [id number] Jul, [facility] [address] [id number], [place] [id number] Jul, [facility] [id number] [id number] Jul, [facility] [address] [id number], [place] [id number] Jun, [address], [place] [id number] Jun, Thumb tendonitis M77.8 and Ringing in ear, bilateral H93.[address] [id number], [place] [id number] Jun, [facility] [address]005[address], [place] [id number] May, [place] [id number] [place] [address] May, [facility] [address] [place] [address] [id number]- [id number] May, Pre-op evaluation Z01.818 ; Encounter for immunization Z23 ; Type 2 diabetes mellitus with diabetic peripheral angiopathy without gangrene E11.51 ; Insulin long-term use Z79.4 ; Type 2 diabetes mellitus with foot ulcer E11.621 ; Peripheral vascular disease I73.9 ; Coronary artery disease involving egegik coronary artery of egegik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 ; S/P coronary artery stent placement Z95.5 ; Osteomyelitis of right foot, unspecified chronicity M86.9 and Chronic obstructive pulmonary disease, unspecified COPD type J44.9 [facility] [address] [id number] [address]- 4[address] May, [place] [id number] [id number] May, [place] [id number], [place] [id number] May, Diabetes type 2, uncontrolled E11.65 ; Encounter for immunization Z23 ; Osteopenia M85.80 and Allergic rhinitis due to pollen J30.1 [facility] 120 [facility] [id number], [place] [id number] May, Lumbago 724.2 [facility] [place] [address] Street[address]65[address] [id number] Apr, [facility] [id number][place] [id number] Apr, [facility] [id number] [place] [address] [id number] Apr, [facility] [id number] [place] [address] [id number] Apr, [facility] [id number] [place] [address] 83071- 3733 Mar, [facility] [address] [id number] [place] [address] [id number] Mar, [facility] [id number] [place] [address] [id number] Mar, [facility] [id number] [place] [address] [id number] Mar, [facility] [id number] [place] [address] [id number] Mar, [facility] [id number] [place] [address] 96916- 0953 Mar, [facility] [id number] [place] [address] [id number] Mar, [facility] [id number] [place] [address] [id number] Mar, Diabetes with neurological manifestations, type II or unspecified type, 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.60 and Severe obesity (BMI 35.0-35.9 with comorbidity) 278.01 [facility] [id number], [place] [id number] Mar, [facility] [id number] [place] [address] 81868- 8332 Mar, [facility] [id number] [place] [address] 68109- 3320 Feb, [facility] [id number], [place] [id number] Feb, [facility] [id number] [place] [address] [id number] Feb, [facility] [address] [id number][place] [id number] Feb, Diabetes with neurological manifestations, type II or unspecified type, 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.60 [facility] [address] [id number][place] [id number] Feb, [facility] [id number] [address]- 8241 Feb, [facility] [id number], [place] [id number] Feb, [facility] [id number], [place] [id number] Feb, Follow up V67.9 ; Diabetes with neurological manifestations, type II or unspecified type, 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.60 and Congestive heart failure 428.0 [facility] [id number], [place] [id number] Jan, [facility] [id number], [place] [address]69697488 Jan, [facility] [id number], [place] [id number] Jan, [facility] [id number], [place] [address]88136584 December, Otitis media with effusion 381.4 ; Left arm numbness 782.0 and Osteoporosis 733.00 [facility] [address] [id number], [place] [id number] December, [facility] [id number], [place] 646285215 Nov, [facility] [address] [id number], [place] [id number] Nov, Serous otitis media 381.4 and Lumbago 724.2 [facility] [id number] 10870691- 0506 Nov, [facility] [id number] [address]- 8466 Nov, [facility] [address] [id number] [place] [id number] Oct, [facility] [place] [facility] [address] [facility] [id number] [place] [address]- 1936 Oct, [facility] [address] [facility] [id number] [place] [id number] Oct, [facility] [place] [facility] [address] [facility] [id number] [place] [address]- 4032 Oct, [facility] [address] [facility] [id number], [place] [id number] Oct, [facility] [place] [facility] [address] [facility] [id number] [place] [address]- 4028 Oct, [facility] [place] [facility] [address] [facility] [id number] [place] [address]- 7855 Sep, [facility] [place] [facility] [id number] [address]- 5337 Sep, [facility] [address] [facility] [id number], [place] [id number] Sep, [facility] [place] [facility] [address] [facility] [id number] [place] [address]- 8266 Sep, [facility] [address] [facility] [id number], [place] [id number] Aug, [facility] [place] [facility] [address] [facility] [id number] [place] [address]- 3519 Aug, [facility] [address] [facility] [id number], [place] [id number] Aug, [facility] [place] [facility] [address] [facility] [id number] [place] [address]- 7003 Aug, [facility] [address] [facility] [id number], [place] [id number] Jul, [facility] [place] [facility] [address] [facility] [id number] [place] [address]- 3048 Jul, [facility] [address] [facility] [id number], [place] [id number] Jul, [facility] [place] [facility] [address] [facility] [id number] [place] [address]- 2546 Jul, [facility] [address] [facility] [id number], [place] 945593471 Jul, [facility] [place] [facility] [address] [facility] [id number] [place] [address]- 2546 Jul, [facility] [address] [facility] [id number], [place] [id number] Jun, [facility] [place] [facility] [address] [facility] [id number] [place] [address]- 2546 Jun, [facility] [address] [facility] [id number] [place] [address] [id number] May, [facility] [place] [facility] [address] [facility] [id number] [place] [address]- 2546 May, [facility] [address] [facility] [id number], [place] [id number] May, [facility] [place] [facility] [id number] [address]- 7426 May, [facility] [address] [facility] [id number], [place] [id number] May, [facility] [place] [facility] [id number] [address] 2546 May, [facility] [address] [facility] [id number], [place] [id number] May, [facility] [address] [facility] [id number], [place] [id number] May, [facility] [place] [facility] [address] [facility] [id number] [place] [address]- 8816 May, [facility] [place] [facility] [address] [facility] [id number] [place] [address]- 2546 May, [facility] [address] [facility] [id number], [place] [id number] May, [facility] [place] [facility] [address] [facility] [id number] [place] [address]- 0259 May, [facility] [place] [facility] [address] [facility] [id number] [place] [address]- 3350 Apr, [facility] [address] [id number] [place] [id number] Apr, [facility] [place] [facility] [address] [facility] [id number] [place] [address]- 4420 Apr, [facility] [address] [id number] [place] [id number] Apr, [facility] [address] [id number] [place] [id number] Apr, [facility] [place] [facility] [address] [facility] [id number] [place] [address]- 5486 Apr, [facility] [place] [facility] [address] [id number] [address]- 2008 Apr, [facility] [address] [facility] [id number], [place] [id number] Apr, [facility] [place] [facility] [address] [facility] [id number] [place] [address]- 6991 Apr, [facility] [address] [facility] [id number], [place] [id number] Apr, [facility] [place] [facility] [address]00565100[place] [address]- 5086 Apr, [facility] [address] [id number], [place] [id number] Apr, [facility] [place] [facility] [address] [facility] [id number] [place] [address]- 7305 Apr, [facility] [address] [id number], [place] [id number] Apr, [facility] [place] [facility] [address] [facility] [id number] [place] [address]- 9196 Apr, [facility] [address] [facility] [id number], [place] [id number] Apr, [facility] [place] [facility] [address]00565100[place] [address]- 2626 Apr, [facility] [address] [id number] [place] [id number] Apr, [facility] [place] [facility] [address] [id number] [place] [address]- 8904 Apr, [facility] [address] [id number] [place] [id number] Mar, [facility] [place] [facility] [address] [id number] [place] [address]- 9643 Mar, [facility] [address] [id number] [place] [id number] Mar, [facility] [address] [id number] [place] [id number] Mar, [facility] [place] [facility] [address] [facility] [id number] [place] [address]- 9766 Mar, [facility] [place] [facility] [address] [facility] [id number] [place] [address]- 5994 Mar, [facility] [address] [id number] [place] [id number] Mar, [facility] [place] [facility] [address] [facility] [id number] [place] [address]- 8298 Mar, [facility] [address] [id number] [place] [id number] Mar, [facility] [place] [facility] [address] [facility] [id number] [place] [address]- 9368 Mar, [facility] [address] [id number] [place] [id number] Mar, [facility] [place] [facility] [address] [id number] [place] [address]- 1382 Mar, [facility] [address] [id number] [place] [id number] Mar, [facility] [place] [facility] [address] [facility] [id number] [place] 79743090- 2303 Mar, [facility] [address] [id number] [place] [id number] Mar, [facility] [place] [facility] [address] [id number] [place] 85711515- 1481 Mar, [facility] [address] [id number] [place] [id number] Mar, [facility] [place] [facility] [address] [id number] [place] [address]- 2669 Mar, [facility] [address] [id number] [place] [id number] Mar, [facility] [place] [facility] [address] [id number] [place] [address]- 6135 Mar, [facility] [address] [id number] [place] [id number] Feb, [facility] [place] [facility] [address] [facility] [id number] [place] [address]- 9290 Feb, [facility] [address] [id number] [place] [id number] Feb, [facility] [place] [facility] [address] [facility] [id number] [place] [address]- 4103 Feb, [facility] [address] [id number] [place] [id number] Feb, [facility] [place] [facility] [address] [facility] [id number] [place] [address]- 5007 Feb, [facility] [address] [id number] [place] [id number] Feb, [facility] [place] [facility] [address] [facility] [id number] [place] [address]- 6471 Feb, [facility] [address] [id number] [place] [id number] Feb, [facility] [place] [facility] [address] [facility] [id number] [place] [address]- 1062 Feb, [facility] [address] [id number] [place] [id number] Feb, [facility] [place] [facility] [address] [facility] [id number] [place] [address]- 5366 Feb, 2013 [facility] [address] [id number] [place] [id number] Feb, [facility] [place] [facility] [address] [id number] [place]12[place]- 0261 Feb, 2013 [facility] [address] [id number] [place] [id number] Feb, [facility] [place] [facility] [address] [id number] [place] [address]- 9488 Feb, 2013 [facility] [address] [id number] [place] [id number] Feb, [facility] [place] [facility] [address] [id number] [place] [address]- 4454 Feb, [facility] [address] [id number] [place] [id number] Feb, [facility] [address] [id number] [place] [id number] Feb, [facility] [place] [facility] [address] [facility] [id number] [place] [address]- 2807 Feb, [facility] [place] [facility] [address] [facility] [id number] [place] [address]- 6359 Feb, [facility] [address] [id number] [place] [id number] Feb, [facility] [place] [facility] [address] [facility] [id number] [place] [address]- 0710 Feb, [facility] [address] [id number] [place] [id number] Feb, [facility] [place] [facility] [address] [id number] [place] [address]- 5687 Feb, [facility] [address] [id number] [place] [id number] Feb, [facility] [place] [facility] [address] [facility] [id number] [place] [id number]- 8270 Feb, [facility] [address] [id number], [place] [id number] Jan, [facility] [place] [facility] [address] [facility] [id number] [place] [address]- 9636 Jan, [facility] [place] [facility] [address] [facility] [id number] [place] [address]- 9151 Jan, [facility] [place] [facility] [address] [facility] [id number] [place] [address]- 6357 Jan, [facility] [place] [facility] [address] [facility] [id number] [place] [address]- 1372 Jan, [facility] [place] [facility] [address] [facility] [id number] [place] [address]- 8221 Jan, [facility] [address] [facility] [id number], [place] 167078333 Jan, [facility] [place] [facility] [address] [facility] [id number] [place] [address]- 4768 Jan, [facility] [place] [facility] [address] [facility] [id number] [place] [address]- 2492 Jan, [facility] [place] [facility] [address] [facility] [id number] [place] [address]- 1920 Jan, [facility] [address] [facility] [id number], [place] [id number] Jan, [facility] [address] [facility] [id number], [place] 595801658 Jan, [facility] [place] [facility] [address] [facility] [id number] [place] [address]- 2473 Jan, [facility] [place] [facility] [address] [id number] [place] [address]- 8202 Jan, [facility] [address] [id number], [place] [id number] Jan, [facility] [address] [id number], [place] 309226275 Jan, [facility] [place] [facility] [address] [facility] [id number] [place] [address]- 5172 Jan, [facility] [place] [facility] [address] [id number] [place] [address]- 3100 Jan, [facility] [place] [facility] [address] [id number] [place] [address]- 7485 Jan, [facility] [address] [id number] [place] [id number] December, [facility] [place] [facility] [address] [id number] [place] [address]- 4736 December, [facility] [place] [facility] [address] [id number] [place] [address]- 8931 December, [facility] [address] [id number] [place] [id number] December, [facility] [place] [facility] [address] [facility] [id number] [place] [address]- 6776 December, [facility] [address] [facility] [id number] [place] [id number] December, [facility] [place] [facility] [address] [facility] [id number] [place] [address]- 7651 December, [facility] [address] [facility] [id number] [place] [id number] December, [facility] [place] [facility] [address] [facility] [id number] [place] [address]- 6426 December, [facility] [address] [facility] [id number], [place] [id number] Nov, [facility] [place] [facility] [address] [id number] [place] [address]- 1081 Nov, [facility] [address] [facility] [id number] [place] [id number] Nov, [facility] [place] [facility] [address] [facility] [id number] [place] [address]- 2075 Nov, [facility] [place] [facility] [address] [facility] [id number] [place] [address]- 1794 Nov, [facility] [place] [facility] [address] [facility] [id number] [place] [address]- 8526 Nov, [facility] [address] [facility] [id number] [place] [address]- 8493 Oct, [facility] [address] [facility] [id number] [place] [id number] Oct, [facility] [address] [id number] [place] [address]- 1196 Oct, [facility] [address] [facility] [id number], [place] 746159975 Oct, [facility] [address] [facility] [id number] [place] [address]- 1329 Oct, [facility] [address] [facility] [id number] [place] [id number] Sep, [facility] [place] [facility] [address]00565100[place] [address]- 7164 Sep, [facility] [address] [id number], [place] [id number] Aug, [facility] [place] [facility] [address] [facility] [id number] [place] [address]- 2337 Aug, [facility] [address] [id number], [place] [id number] Aug, [facility] [place] [facility] [address]00565100[place] [address]- 3798 Aug, [facility] [place] [facility] [address] [facility] [id number] [place] [address]- 1934 Aug, [facility] [address] [facility] [id number], [place] [id number] Aug, [facility] [place] [facility] [address] [facility] [id number] [place] [address]- 0359 Aug, [facility] [place] [facility] [address] [facility] [id number] [place] [address] Aug, [facility] [place] [address] [facility] [id number][place] [id number] Aug, [facility] [address] [id number] [place] [address] Aug, [facility] [place] [address] [id number][place] [id number] Jul, [facility] [address] [facility] [id number] [place] [address] Jul, [facility] [place] [address] [id number][place] [id number] Jul, [facility] [address] [facility] [id number] [place] [address] Jul, [facility] [place] [address] [id number], [place] [id number] Jul, [facility] [address] [facility] [id number] [place] [address] Jul, [facility] [place] [address] [id number][place] [id number] Jul, [facility] [id number] [address] Jul, [facility] [address] [facility] [id number], [place] [id number] Jun, [facility] [id number] [address] Jun, [facility] [address] [facility] [id number], [place] [id number] Jun, [facility] [address] [id number] [place] [address] Jun, [facility] [address] [facility] [id number] [place] [address] Jun, [facility] [address] [facility] [id number] [place] [address] Jun, [facility] [address] [id number], [place] [id number] Apr, [facility] [place] [address] [id number], [place] [id number] Mar, [facility] [place] [address] [id number] [place] [id number] Mar, [facility] [place] [address] [id number] [place] [id number] Feb, [facility] [address] [id number] [place] [id number] Feb, [facility] [address] [id number] [place] [id number] Feb, [facility] [place] [address] [id number] [place] [id number] December, [facility] [place] [address] [id number] [place] [id number] December, [facility] [id number] [place] [address] December, [facility] [place] [address] [id number] [place] [id number] December, [facility] [place] [address] [id number] [place] [id number] December, [facility] [place] [address] [id number] [place] [id number] Nov, [facility] [place] [address] [id number] [place] [address] Nov, [facility] [place] [address] [id number] [place] [id number] Nov, [facility] [place] [address] [id number] [place] [id number] Oct, [facility] [address] [id number] [place] [id number] Sep, [facility] [place] [address] [id number] [place] [id number] Aug, [facility] [address] [id number] [place] [address] Aug, [facility] [place] [address] [id number] [place] [id number] Aug, [facility] [place] [address] [id number] [place] [id number] Jul, [facility] [address] [facility] [id number] [place] [address] Jul, [facility] [place] [address] [id number], [place] [id number] Jul, [facility] [address] [facility] [id number] [place] [address] Jul, [facility] [place] [address] [id number], [place] [id number] Jun, [facility] [address] [facility] [id number] [place] [address] [address] Jun, [facility] [address] [id number], [place] [id number] May, [facility] [address] [facility] [id number] [place] [address] May, [facility] [address] [id number], [place] [id number] May, [facility] [address] [facility] [id number] [place] 34486[address]- [address] May, [facility] [address] [id number], [place] [id number] Apr, [facility] [address] [id number], [place] [id number] Apr, [facility] [address] [id number], [place] 406[address]69[address] Mar, [facility] [address] [id number] [place] [id number] Mar, [facility] [address] [id number], [place] [id number] Feb, [facility] [address] [id number] [place] [id number] Feb, [facility] [address] [id number] [place] [id number] Jan, [facility] [address] [id number], [place] 734595816 Jan, [facility] [address] [id number], [place] [id number] Jan, [facility] [address] [id number] [place] [id number] Jan, [facility] [address] [id number] [place] 705244498 December, [facility] [address] [id number] [place] [id number] December, [facility] [address] [id number] [place] [address] Nov, [facility] [place] [address] [id number] [place] [id number] Nov, [facility] [place] [address] [id number] [place] [id number] Nov, [facility] [place] [address] [id number] [place] [id number] Nov, [facility] [place] [address] [id number] [place] [id number] Nov, [facility] [address] [facility] [id number] [place] [address] Oct, [facility] [address] [facility] [id number] [place] [address] Oct, [facility] [address] [id number] [place] [id number] Oct, [facility] [address] [id number] [place] [id number] Oct, [facility] [address] [id number] [place] [id number] Oct, [facility] [address] [id number] [place] [id number] Oct, [facility] [address] [id number] [place] [id number] Oct, [facility] [address] [id number] [place] [id number] Oct, [facility] [address] [id number] [place] [id number] Oct, [facility] [address] [facility] [id number] [place] [address] Oct, [facility] [address] [id number] [place] [id number] Sep, [facility] [address] [id number] [place] [id number] Sep, [facility] [address] [id number] [place] [id number] Aug, [facility] [address] [id number] [place] [id number] Aug, [facility] [address] [id number] [place] [address] Jul, [facility] [address] [facility] [id number] [place] [address], [place] [address] Jul, [facility] [address] [facility] [id number] [place] [address] Jul, [facility] [place] [facility] [id number] [place] [address], [place] [address] Jul, [facility] [address] [facility] [id number] [place] [address] Jul, [facility] [place] [facility] [address] [id number] [address] Jul, [facility] [address] [id number] [place] [address] Jul, [facility] [place] [facility] [address] [id number] [place] [address] Jul, [facility] [place] [facility] [address] [facility] [id number] [place] [address] Jul, [facility] [place] [facility] [address] [facility] [id number] [place] [address] Jul, [facility] [place] [facility] [address] [facility] [id number] [place] [address] Jul, [facility] [place] [facility] [address] [facility] [id number] [place] [address] Jul, [facility] [address] [facility] [id number] [place] [address] Jul, [facility] [address] [facility] [id number] [place] [address] Jul, IMMUNIZATIONS No Known Immunizations SOCIAL HISTORY Never Assessed REASON FOR VISIT incontinence PLAN OF CARE VITAL SIGNS MEDICATIONS Medication Instructions Dosage Frequency Start Date End Date Duration Status Disposable Brief X-Large - externally 4 times a day as directed 6h December, 0 days Active RESULTS No Results [...] History Left eye retinal eye repair ([facility]) 06/2014 Surgical History amputation, toe-right third toe ([facility]) 2013 Surgical History Right eye retinal eye repair ([facility]) 09/2014 Surgical History heart cath [...]
--- OUTSIDE RECORDS SUMMARY | 2018-06-20 11:09 | XMS REPORT ---
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 Active [id number] Problem S/P coronary artery stent placement Z95.5 Active 010515380 Problem Chronic obstructive pulmonary disease, unspecified COPD type J44.9 Active 60962945 Problem Type 2 diabetes mellitus with diabetic neuropathy E11.40 Active 59521669 Problem Bilateral low back pain without sciatica M54.5 Active 786721230 Problem 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 Active 472935138 Problem 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 Active 090999565 Problem Hypercholesterolemia E78.0 Active 36158545 Problem Comprehensive diabetic foot examination, type 2 DM, encounter for E11.9 Active 77033599 Problem Type 2 diabetes mellitus with diabetic polyneuropathy E11.42 Active 813090358 Problem Obesity (BMI 30.0-34.9) E66.9 Active [id number] Problem Personal history of carotid stenosis Z86.79 Active 577738538 Problem Aphasia R47.01 Active 41421474 Problem Chronic diarrhea K52.9 Active 186622602 Problem Uses walker Z99.89 Active 520360873 Problem Chronic fatigue R53.82 Active 83334846 Problem Mixed stress and urge urinary incontinence N39.46 Active 276215604 Problem Chronic pain syndrome G89.4 Active 018536750 Problem High risk medication use Z79.899 Active 858664066 Problem Osteomyelitis of right foot, unspecified chronicity M86.9 Active 83238528 Problem Fatigue, unspecified type R53.83 Active 09996176 Problem Diabetes type 2, uncontrolled E11.65 Active 373075886 Problem Full incontinence of feces R15.9 Active 872557831046115 Problem Other chronic pain G89.29 Active 72243606 Problem Functional diarrhea K59.1 Active 14692747 Problem Fecal urgency R15.2 Active 13904442 Problem Depression F32.9 Active 72231976 Problem CKD (chronic kidney disease), stage 3 (moderate) N18.3 Active 855446217 Problem Hyperlipidemia, unspecified hyperlipidemia E78.5 Active 79669221 Problem CKD (chronic kidney disease) stage 3, GFR 30-59 ml/min N18.3 Active 566879662 Problem Type 2 diabetes mellitus with diabetic peripheral angiopathy without gangrene E11.51 Active 791227641 Problem Pain in left shoulder M25.512 Active 48232073 Problem Insulin long-term use Z79.4 Active 369440617 Problem Essential hypertension I10 Active 27223873 Problem Type 2 diabetes mellitus with diabetic retinopathy, macular edema presence unspecified, with unspecified retinopathy severity E11.319 Active 02871544 Problem Chronic kidney disease, unspecified N18.9 Active 486799861 Problem Type 2 diabetes mellitus with foot ulcer E11.621 Active 108979421 Problem Frequent falls R29.6 Active 491379634 Problem GERD without esophagitis K21.9 Active 996024005 Problem Mixed hyperlipidemia E78.2 Active 098492538 ALLERGIES No Information ENCOUNTERS Encounter Location Date Diagnosis [facility] [address] [id number] Mar, [facility] [address] [id number] Feb, [facility] [address] [id number] Feb, [facility] [id number] [place] [address] [id number] Feb, Diabetes type 2, uncontrolled E11.65 [facility] [address] [id number] Feb, 2018 Other chronic pain G89.29 [facility] [id number] [place] [address] [id number] Jan, [facility] [address] [id number] Jan, [facility] [address] [facility] [id number] [id number] Jan, [place] [id number] [id number] Jan, Other chronic pain G89.29 [facility] [address]00565[address] [id number] December, Mixed stress and urge urinary incontinence N39.46 [address]00565100[place] [id number] December, Chronic fatigue R53.[address]100[place] [id number] December, Other chronic pain G89.29 [address] [id number] December, Diabetes type 2, uncontrolled E11.65 ; [...] type J44.9 and Other chronic pain G89.29 [facility] [id number] [address] December, [id number] [id number] December, Medicare annual wellness visit, subsequent Z00.00 ; Type 2 diabetes mellitus with diabetic polyneuropathy E11.42 ; Chronic obstructive pulmonary disease, unspecified COPD type J44.9 ; Depression F32.9 ; Peripheral vascular disease I73.9 ; Coronary artery disease involving lac vieux coronary 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 ; Hypercholesterolemia E78.0 ; GERD without esophagitis K21.9 and Chronic kidney disease, unspecified N18.9 [address] [id number] December, Mixed stress and urge urinary incontinence N39.46 ; Full incontinence of feces R15.9 ; Fecal urgency R15.2 ; Functional diarrhea K59.1 and Type 2 diabetes mellitus with diabetic neuropathy E11.[address] [place] [address] [id number] Nov, Other chronic pain G89.29 [place] [id number] [place] [address] [id number] Oct, [place] [address] [place] [address] [id number] Oct, [place] [address] [place] [address] [id number] Oct, Other chronic pain G89.29 [address] [address] [place] [address] [id number] Sep, Other chronic pain G89.29 [address] [address] [place] [address] [id number] Aug, CKD (chronic kidney disease), stage 3 (moderate) N18.3 ; Anemia, unspecified type D64.9 and Dilated pore of Ly L70.8 [place] [address] [place] [address] [id number] Aug, Other chronic pain G89.29 ; Pain in left shoulder M25.512 ; High risk medication use Z79.899 ; Uses walker Z99.89 ; Diabetes type 2, uncontrolled E11.65 and Depression F32.9 [address] [id number] Aug, Chronic diarrhea K52.[address] [place] [address] [id number] Aug, Chronic diarrhea K52.9 ; Type 2 diabetes mellitus with diabetic neuropathy E11.40 ; Diabetes type 2, uncontrolled E11.65 ; Insulin long-term use Z79.4 ; Chronic obstructive pulmonary disease, unspecified COPD type J44.9 ; Chronic pain syndrome G89.4 ; Pain in left shoulder M25.512 ; Uses walker Z99.89 ; S/P coronary artery stent placement Z95.5 ; Mixed hyperlipidemia E78.2 and Essential hypertension I10 [facility] [address] [id number] Aug, [facility] [address] [place] [address] [id number] Jul, Diabetes type 2, uncontrolled E11.65 [address] [id number] Jul, Diabetes type 2, uncontrolled E11.65 ; Type 2 diabetes mellitus with diabetic neuropathy E11.40 ; Insulin long-term use Z79.4 and Chronic obstructive pulmonary disease, unspecified COPD type J44.[address] [place] [address] [id number] Jun, [address] [place] [address] [id number] Jun, Essential hypertension I10 [address] [place] [address] [id number] Jun, Essential hypertension I10 [address] [place] [address] [id number] Jun, Type 2 diabetes mellitus with diabetic neuropathy E11.40 ; Type 2 diabetes mellitus with diabetic polyneuropathy E11.42 ; S/P coronary artery stent placement Z95.5 ; Obesity (BMI 30.0-34.9) E66.9 ; Mixed hyperlipidemia E78.2 ; Frequent falls R29.6 ; Chronic obstructive pulmonary disease, unspecified COPD type J44.9 ; Essential hypertension I10 ; Insulin long-term use Z79.4 and High risk medication use Z79.899 [place] [id number] [id number] May, Diarrhea, unspecified type R19.7 ; Type 2 diabetes mellitus with diabetic neuropathy E11.40 ; Chronic obstructive pulmonary disease, unspecified COPD type J44.9 ; S/P coronary artery stent placement Z95.5 ; High risk medication use Z79.899 ; Essential hypertension I10 ; Encounter for administration of vaccine Z23 and Encounter for immunization Z23 [address] [id number] [place] [id number] May, Chronic obstructive pulmonary disease, unspecified COPD type J44.[address] [place] [address] [id number] May, Type 2 diabetes mellitus with diabetic polyneuropathy E11.42 ; Encounter for immunization Z23 ; Needs flu shot Z23 ; Comprehensive diabetic foot examination, type 2 DM, encounter for E11.9 and Obesity (BMI 30.0-34.9) E66.9 [place] [address] [place] [id number] May, [address] [id number] Apr, [address] [id number] Apr, Essential hypertension I10 and Aphasia R47.01 [place] [address] [place] [id number] Apr, [address] [id number] Apr, Type 2 diabetes mellitus with diabetic neuropathy E11.40 ; Frequent falls R29.6 ; Essential hypertension I10 ; S/P coronary artery stent placement Z95.5 ; High risk medication use Z79.899 ; Hyperlipidemia, unspecified hyperlipidemia E78.5 ; CKD (chronic kidney disease), stage 3 (moderate) N18.3 ; Pain in left shoulder M25.512 and Chronic obstructive pulmonary disease, unspecified COPD type J44.[address] [place] [address] [id number] Mar, [place] [address] [place] [address] [id number] Mar, Type 2 diabetes mellitus with diabetic polyneuropathy E11.42 ; Leg wound, left, initial encounter S81.802A ; Hx of shoulder surgery Z98.890 ; Acute pain of left shoulder M25.512 and Fall, initial encounter W19.XXXA [place] [address] [place] [address] [id number] Feb, Follow-up exam Z09 ; Hx of shoulder surgery Z98.890 ; Acute pain of left shoulder M25.512 ; Essential hypertension I10 and Leg wound, left, initial encounter S81.802A [facility] [id number] [place] [address] [id number] Feb, [facility] [address] [id number] Feb, [facility] [id number] [place] [address] [id number] Feb, Chronic obstructive pulmonary disease, unspecified COPD type J44.9 [facility] [id number] [place] [address] [id number] Feb, [facility] [address] [id number] Jan, Generalized weakness R53.1 ; Exertional shortness of breath R06.02 and Fungal rash of trunk B36.9 [facility] [id number] [place] [address] [id number] Jan, [facility] [id number] [place] [address] [id number] Jan, [facility] [id number] [place] [address] [id number] Jan, [facility] [address] [place] [address] [id number] Jan, [facility] [id number] [place] [address] [id number] December, High risk medication use Z79.899 [place] [address] [place] [address] [id number] December, Type 2 diabetes mellitus with diabetic neuropathy E11.40 [facility] [id number] [place] [address] [id number] December, High risk medication use Z79.899 [place] [id number] [place] [address] [id number] Nov, Diabetes type 2, uncontrolled E11.65 [facility] [id number] [place] [address] [id number] Nov, Medicare annual wellness visit, initial Z00.00 ; Bilateral low back pain without sciatica M54.5 ; Pain in left shoulder M25.512 ; Chronic pain syndrome G89.4 ; Type 2 diabetes mellitus with diabetic polyneuropathy E11.42 ; High risk medication use Z79.899 and Encounter for immunization Z23 [place] [address] [place] [address] [id number] Nov, Type 2 diabetes mellitus with diabetic neuropathy E11.40 ; Coronary artery disease involving lac vieux coronary 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 and CKD (chronic kidney disease), stage 3 (moderate) N18.3 [place] [address] [place] [address] [id number] Oct, Type 2 diabetes mellitus with diabetic polyneuropathy E11.42 ; Chronic pain syndrome G89.4 ; Chronic obstructive pulmonary disease, unspecified COPD type J44.9 ; Chronic kidney disease, unspecified N18.9 and Rash R21 [place] [address] [id number] Oct, Type 2 diabetes mellitus with diabetic neuropathy E11.40 [place] [address] [place] [address] [id number] Oct, Rash R21 and Impetigo L01.[address] [id number] Oct, Chronic pain syndrome G89.4 [place] [address] [place] [address] [id number] Oct, [place] [address] [place] [address] [id number] Sep, Sebaceous cyst L72.3 [place] [address] [place] [address] [id number] Sep, Sebaceous cyst L72.3 [place] [address] [place] [address] [id number] Sep, Chronic pain syndrome G89.4 ; Pain in left shoulder M25.512 and Effusion of olecranon bursa, left M25.422 [facility] [id number] [place] [address] [id number][address] [address] Aug, [address] [id number] Aug, [facility] [id number] [place] [address] [id number] Aug, Mixed hyperlipidemia E78.2 and Chronic kidney disease, unspecified N18.9 [facility] [id number] [place] [address] [id number] Jul, Type 2 diabetes mellitus with diabetic neuropathy E11.40 ; Essential hypertension I10 and S/P coronary artery stent placement Z95.5 [facility] [id number] [place] [address] [id number] Jul, 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 [place] [address] [place] [address] [id number] Jul, Diabetes type 2, uncontrolled E11.65 ; Essential hypertension I10 and 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 [facility] [id number] [place] [address] [id number] Jul, [facility] [id number] [place] [address] [id number] Jul, [facility] [id number] [place] [address] [id number] Jul, [place] [address] [place] [address] [id number] Jul, Chronic obstructive pulmonary disease, unspecified COPD type J44.[address] [place] [address] [id number] Jun, CKD (chronic kidney disease), stage 3 (moderate) N18.3 and Anemia, unspecified type D64.9 [facility] [id number] [place] [address] [id number] Jun, Type 2 diabetes mellitus with diabetic neuropathy E11.40 ; Decreased GFR R94.4 ; CKD (chronic kidney disease), stage 3 (moderate) N18.3 and Decreased hemoglobin R71.0 [facility] [address] [place] [address] [id number] Jun, CKD (chronic kidney disease), stage 3 (moderate) N18.3 and Anemia, unspecified type D64.9 [facility] [address] [id number] Jun, Type 2 diabetes mellitus with diabetic neuropathy E11.40 ; Decreased GFR R94.4 and CKD (chronic kidney disease), stage 3 (moderate) N18.[address] [place] [address] [id number] Jun, Type 2 diabetes mellitus with diabetic neuropathy E11.40 and Essential hypertension I10 [place] [address] [place] [address] [id number] Jun, [place] [address] [place] [address] [id number] Jun, [address] [place] [address] [id number] Jun, Type 2 diabetes mellitus with diabetic neuropathy E11.40 ; S/P coronary artery stent placement Z95.5 ; Chronic obstructive pulmonary disease, unspecified COPD type J44.9 ; Essential hypertension I10 ; GERD without esophagitis K21.9 ; Peripheral vascular disease I73.9 ; Mixed hyperlipidemia E78.2 and Hospital discharge follow-up Z09 [address] [id number] Jun, [place] [address] [place] [address] [id number] May, Depression F32.9 and Hyperlipidemia, unspecified hyperlipidemia E78.5 [facility] [address], [place] [address] May, [address] [id number] May, [address] [place] [address] [id number] May, Essential hypertension I10 ; Chronic pain syndrome G89.4 ; Pain in left shoulder M25.512 ; High risk medication use Z79.899 ; Chronic obstructive pulmonary disease, unspecified COPD type J44.9 ; S/P coronary artery stent placement Z95.5 ; Personal history of carotid stenosis Z86.79 ; Hyperlipidemia, unspecified hyperlipidemia E78.5 ; Decreased GFR R94.4 and Type 2 diabetes mellitus with diabetic polyneuropathy E11.42 [facility] [id number] [place] [id number] May, Hemoglobin decreased R71.0 and Decreased GFR R94.4 [facility] [id number] [place] [address] [id number] May, Hemoglobin decreased R71.0 and Decreased GFR R94.4 [facility] [id number] [place] [address] [id number] May, [facility] [id number] [place] [address] [id number] May, [facility] [id number] [place] [address] [id number] Apr, [facility] [id number] [place] [address] [id number] Apr, Type 2 diabetes mellitus with foot [...] hypertension I10 [facility] [id number] [place] [address] [id number] Apr, [facility] [id number] [place] [address] [id number] Mar, [facility] [id number] [place] [address] [id number] Mar, [facility] [address]005[address] [address] Mar, [facility] [id number] [place] [address] [id number] Feb, [facility] [id number] [place] [address] [id number] Feb, [facility] [id number] [place] [address] [id number] Feb, [facility] [id number] [place] [id number] Jan, Type 2 diabetes mellitus with diabetic polyneuropathy E11.42 ; Hypercholesterolemia E78.0 ; Chronic pain syndrome G89.4 ; Pain in left shoulder M25.512 and High risk medication use Z79.899 [facility] [id number] [place] [address] [id number] Jan, [facility] [id number] [place] [address] [id number] Jan, [facility] [id number] [place] [address] [id number] December, [facility] [id number] [place] [address] [id number] December, [facility] [address] [address] December, Diabetes type 2, uncontrolled E11.65 ; Type 2 diabetes mellitus with diabetic neuropathy E11.40 ; Peripheral vascular disease I73.9 ; 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 and 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 [facility] [id number] [place] [address] [id number] Nov, [facility] [address] [place] [address] [id number] Nov, [facility] [id number] [place] [address] [id number] Nov, [facility] [address] [place] [address] [id number] Nov, Right hip pain M25.551 [facility] [id number] [place] [address] [id number]- 5[address] Nov, [facility] [address] 301475- 69[address] Nov, [facility] [id number] [place] [address] [id number] Nov, Diabetes with neurological manifestations, type II or unspecified type, 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.60 [facility] [address] [id number] Nov, [facility] [address] [id number] [id number] Nov, [facility] [address] [id number] [place]UC[place] [id number] Oct, Diabetes type 2, uncontrolled E11.65 ; Type 2 diabetes mellitus with diabetic neuropathy, unspecified E11.40 and Low back pain M54.5 [facility] [address] [id number] [place] [id number] Oct, [facility] [address] [id number] [place] [id number] Oct, [facility] [address] [id number] [place] [id number] Oct, [facility] [address] [id number] [place] [id number] Sep, [facility] [id number] [place] [id number] Sep, [facility] [address]100[place], [place] [address] Sep, [facility] [id number] [place] [id number] Sep, [facility] [id number] [place] [id number] Sep, [facility] [id number] [place] [id number] Aug, 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 [facility] [address] [id number] [place] [id number] Aug, [facility] [address] [facility] [id number] [place] [id number] Aug, Allergic rhinitis due to pollen J30.1 [facility] [place] [address] [facility] [id number][place] [id number] Jul, [facility] [address] [id number] [place] [id number] Jul, [facility] [address] [id number] [place] [id number] Jul, [facility] 120 [facility] [id number] [place] [id number] Jun, [address] [place] [address] [id number] Jun, Thumb tendonitis M77.8 and Ringing in ear, bilateral H93.[address] [id number][place] [id number] Jun, [address] [place] [address] [id number] May, [place] [id number] [place] [address] 25138- 4417 May, [place] [address] [place] [address] 654[address]- 8141 May, Pre-op evaluation Z01.818 ; Encounter for immunization Z23 ; Type 2 diabetes mellitus with diabetic peripheral angiopathy without gangrene E11.51 ; Insulin long-term use Z79.4 ; Type 2 diabetes mellitus with foot ulcer E11.621 ; Peripheral vascular disease I73.9 ; Coronary artery disease involving lac vieux coronary 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 ; S/P coronary artery stent placement Z95.5 ; Osteomyelitis of right foot, unspecified chronicity M86.9 and Chronic obstructive pulmonary disease, unspecified COPD type J44.9 [place] [address]005[address], [place] [address] 2543 May, [place] [id number] [id number] May, [place] [id number] [id number] May, Diabetes type 2, uncontrolled E11.65 ; Encounter for immunization Z23 ; Osteopenia M85.80 and Allergic rhinitis due to pollen J30.1 [facility] [address] [place] [id number] [place] [id number] May, Lumbago 724.2 [facility] [place] [address] [place] [address] [id number] Apr, [facility] [place] [address] [id number] [id number] Apr, [facility] [place] [id number] [place] [id number] Apr, [facility] [place] [address] [id number] [place] [id number] Apr, [facility] [address]00565100[place], [place] [address] 2546 Mar, [facility] [id number] [place] [address] Mar, [facility] [id number] [place] [address] [id number] Mar, [facility] [id number] [place] [address] Mar, [facility] [id number] [place] [address] [id number] Mar, [facility] [address]00565100[place], [place] [address] Mar, [facility] [id number] [place] [address]389[address] Mar, [facility] [id number] [place] [id number] Mar, Diabetes with neurological manifestations, type II or unspecified type, 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.60 and Severe obesity (BMI 35.0-35.9 with comorbidity) 278.01 [facility] [id number] [place] [id number] Mar, [facility] [address]00565[address], [place] [address] Mar, [facility] [address]00565100[place], [place] [address] 117[address] Feb, [facility] [id number] [place] [id number] Feb, [facility] [id number] [place] [id number] Feb, [facility] [address] [id number] [place] [address] Feb, Diabetes with neurological manifestations, type II or unspecified type, 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.60 [facility] [id number] [place] [address] Feb, [facility] [address]00565100[place] [address]- [address] Feb, [facility] [id number] [place] [id number] Feb, [facility] [id number] [place] [id number] Feb, Follow up V67.9 ; Diabetes with neurological manifestations, type II or unspecified type, 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.60 and Congestive heart failure 428.0 [facility] [id number] [place] [id number] Jan, [facility] [id number] [place] [address] Jan, [facility] [address] [id number] [place] [id number] Jan, [facility] [id number] [place] [id number] December, Otitis media with effusion 381.4 ; Left arm numbness 782.0 and Osteoporosis 733.00 [facility] [id number] [place] [id number] December, [facility] [id number] [place] [address]137738[address] Nov, [facility] [address] [id number] [place] [address] Nov, Serous otitis media 381.4 and Lumbago 724.2 [facility] [id number] [place] [address] [id number]- 3699 Nov, [facility] [address]00565100[place] [address]- 5097 Nov, [facility] [id number] [place] [address] [id number] Oct, [facility] [place] [facility] [address] [facility] [id number] [place] [address]- [address] Oct, [facility] [address] [facility] [id number] [place] [address] Oct, [facility] [place] [facility] [address] [facility] [id number], [place] [address]- 8366 Oct, [facility] [address] [facility] [id number] [place] [address] Oct, [facility] [place] [facility] [address] [facility] [id number] [place] [address]- 2513 Oct, [facility] [place] [facility] [address] [facility] [id number] [place] [address]- 6276 Sep, [facility] [place] [facility] [address] [id number], [place] [address]- 2[address] Sep, [facility] [address] [facility] [id number] [place] [address]679[address]386 Sep, [facility] [place] [facility] [address] [facility] [id number], [place] [address]- 7801 Sep, [facility] [address] [facility] [id number] [place] [address]60645305 Aug, [facility] [place] [facility] [address] [id number], [place] [address]- 2406 Aug, [facility] [address] [facility] [id number] [place] 445308264 Aug, [facility] [place] [facility] [address] [facility] [id number], [place] [address]- 6856 Aug, [facility] [address] [facility] [id number] [place] 048753422 Jul, [facility] [place] [facility] [address] [facility] [id number], [place] [address]- 4596 Jul, [facility] [address] [facility] [id number] [place] [id number] Jul, [facility] [place] [facility] [address] [facility] [id number], [place] [address]- 2546 Jul, [facility] [address] [facility] [id number] [place] 912627468 Jul, [facility] [place] [facility] [address] [facility] [id number], [place] [address]- 8346 Jul, [facility] [address] [facility] [id number] [place] 847884949 Jun, [facility] [place] [facility] [address] [facility] [id number], [place] [address]- 7043 Jun, [facility] [address] [facility] [id number] [place] 679141284 May, [facility] [place] [facility] [address] [facility] [id number], [place] [address]- 1218 May, [facility] [address] [facility] [id number] [place] [id number] May, [facility] [place] [facility] [address] [facility] [id number], [place] [address]- 8029 May, [facility] [address] [facility] [id number] [place] 922700061 May, [facility] [place] [facility] [address] [facility] [id number], [place] [address]- 9231 May, [facility] [address] [facility] [id number] [place] 390803734 May, [facility] [address] [facility] [id number] [place] 398697932 May, [facility] [place] [facility] [address] [facility] [id number], [place] [address]- 7460 May, [facility] [place] [facility] [address] [facility] [id number], [place] [address]- 3394 May, [facility] [address] [facility] [id number] [place] 300510956 May, [facility] [place] [facility] [address] [facility] [id number], [place] [address]- 2178 May, [facility] [place] [facility] [address] [id number], [place] [address]- 9881 Apr, 2013 [facility] [address] [id number] [place] [id number] Apr, [facility] [place] [facility] [address] [facility] [id number], [place] [address]- 0501 Apr, [facility] [address] [id number] [place] [id number] Apr, [facility] [address] [id number] [place] 038575147 Apr, [facility] [place] [facility] [address] [facility] [id number], [place] [address]- 7549 Apr, [facility] [place] [facility] [address] [id number], [place] [address]- 0896 Apr, [facility] [address] [facility] [id number] [place] 616146562 Apr, [facility] [place] [facility] [address]00565100[place], [place] [address]- 1678 Apr, 2013 [facility] [address] [facility] [id number] [place] 918363548 Apr, [facility] [place] [facility] [address]00565100[place], [place] [address]- 8963 Apr, [facility] [address] [facility] [id number] [place] [id number] Apr, [facility] [place] [address] [facility] [id number], [place] [address]- 0294 Apr, 2013 [facility] [address] [facility] [id number] [place] 127523349 Apr, [facility] [place] [facility] [address] [facility] [id number], [place] [address]- 7359 Apr, 2013 [facility] [address] [facility] [id number] [place] 310404492 Apr, [facility] [place] [facility] [address] [facility] [id number], [place] [address]- 6565 Apr, [facility] [address] [id number] [place] [id number] Apr, [facility] [place] [facility] [address] [facility] [id number] [place] [address]- 3518 Apr, [facility] [address] [id number] [place] [id number] Mar, [facility] [place] [facility] [address] [facility] [id number] [place] [address]- 3165 Mar, [facility] [address] [id number] [place] [id number] Mar, [facility] [address] [id number] [place] [id number] Mar, [facility] [place] [facility] [address] [facility] [id number] [place] [address]- 2113 Mar, [facility] [place] [facility] [address]00565100[place], [place] [address]- 7682 Mar, [facility] [address] [facility] [id number] [place] [id number] Mar, [facility] [place] [facility] [address] [facility] [id number] [place] [address]- 2957 Mar, [facility] [address] [facility] [id number] [place] [id number] Mar, [facility] [place] [facility] [address] [facility] [id number], [place] [address]- 7545 Mar, [facility] [address] [id number] [place] [id number] Mar, [facility] [place] [facility] [address] [facility] [id number] [place] [address]- 2687 Mar, [facility] [address] [id number] [place] [id number] Mar, [facility] [place] [facility] [address] [facility] [id number] [place] [address]- 2979 Mar, [facility] [address] [id number] [place] [id number] Mar, [facility] [place] [facility] [address] [id number] [place] [address]- 9661 Mar, [facility] [address] [id number] [place] [id number] Mar, [facility] [place] [facility] [address] [facility] [id number] [place] 5082 Mar, [facility] [address] [facility] [id number] [place] [id number] Mar, [facility] [place] [facility] [address] [facility] [id number] [place] [address]- 5088 Mar, [facility] [address] [id number] [place] [id number] Feb, [facility] [place] [facility] [address] [facility] [id number], [place] [address]- 4150 Feb, [facility] [address] [facility] [id number] [place] [id number] Feb, [facility] [place] [facility] [address] [facility] [id number], [place] [address]- 9093 Feb, [facility] [address] [facility] [id number] [place] [id number] Feb, [facility] [place] [facility] [address] [facility] [id number], [place] [address]- 4583 Feb, [facility] [address] [facility] [id number] [place] [id number] Feb, [facility] [place] [facility] [address] [facility] [id number], [place] [address]- 2303 Feb, [facility] [address] [facility] [id number] [place] [id number] Feb, [facility] [place] [facility] [address] [facility] [id number] [place] [address]- 4725 Feb, [facility] [address] [id number] [place] [id number] Feb, [facility] [place] [facility] [address] [facility] [id number] [place] [address]- 0552 Feb, [facility] [address] [id number] [place] [id number] Feb, 2013 [facility] [place] [facility] [address] [id number] [place] [address]- 3038 Feb, 2013 [facility] [address] [id number] [place] [id number] Feb, 2013 [facility] [place] [facility] [address] [id number] [place] [address]- 5717 Feb, 2013 [facility] [address] [id number] [place] [id number] Feb, [facility] [place] [facility] [address] [id number] [place] [address]- 8317 Feb, [facility] [address] [id number] [place] [id number] Feb, [facility] [address] [id number] [place] [id number] Feb, [facility] [place] [facility] [address] [facility] [id number] [place] [address]- 6737 Feb, [facility] [place] [facility] [address] [facility] [id number] [place] [address]- 8484 Feb, [facility] [address] [id number] [place] [id number] Feb, [facility] [place] [facility] [address] [facility] [id number], [place] [address]- 6469 Feb, [facility] [address] [id number] [place] [id number] Feb, [facility] [place] [facility] [address] [facility] [id number] [place] [address]- 8231 Feb, [facility] [address] [id number] [place] [id number] Feb, [facility] [place] [facility] [address] [facility] [id number] [place] [address]- 9027 Feb, [facility] [address] [id number] [place] [id number] Jan, [facility] [place] [facility] [address] [id number], [place] [address]- 4785 Jan, [facility] [place] [facility] [address] [facility] [id number] [place] [address]- 6241 Jan, [facility] [place] [facility] [address] [facility] [id number] [place] [address]- 8990 Jan, [facility] [place] [facility] [address] [facility] [id number] [place] [address]- 7838 Jan, [facility] [place] [facility] [address] [facility] [id number] [place] [address]- 3468 Jan, [facility] [address] [facility] [id number] [place] [id number] Jan, [facility] [place] [facility] [address] [id number] [place] [address]- 2852 Jan, [facility] [place] [facility] [address] [facility] [id number], [place] [address]- 6082 Jan, [facility] [place] [facility] [address] [facility] [id number], [place] [address]- 8080 Jan, [facility] [address] [id number] [place] 254704770 Jan, [facility] [address] [id number] [place] 585091079 Jan, [facility] [place] [facility] [address] [facility] [id number], [place] [address]- 0580 Jan, [facility] [place] [facility] [address] [id number], [place] [address]- 5825 Jan, [facility] [address] [id number] [place] [id number] Jan, [facility] [address] [id number] [place] [id number] Jan, [facility] [place] [facility] [address] [facility] [id number], [place] [address]- 7821 Jan, [facility] [place] [facility] [address] [id number] [place] [address] 2546 Jan, [facility] [place] [facility] [address] [id number] [place] [address]- 0466 Jan, [facility] [address] [facility] [id number] [place] [id number] December, [facility] [place] [facility] [address] [id number] [place] [address]- 5886 December, [facility] [place] [facility] [address] [id number] [place] [address]- 8396 December, [facility] [address] [id number] [place] [id number] December, [facility] [place] [facility] [address] [id number] [place] [address]- 3262 December, [facility] [address] [facility] [id number] [place] [id number] December, [facility] [place] [facility] [address] [facility] [id number] [place] [address]- 2000 December, [facility] [address] [id number] [place] [id number] December, [facility] [place] [facility] [address] [facility] [id number] [place] [address]- 4866 December, [facility] [address] [facility] [id number] [place] [id number] Nov, [facility] [place] [facility] [address] [id number], [place] [address]- 1270 Nov, [facility] [address] [facility] [id number] [place] [id number] Nov, [facility] [place] [facility] [address] [facility] [id number] [place] [address]- 6172 Nov, [facility] [place] [facility] [address] [facility] [id number] [place] [address]- 6844 Nov, [facility] [place] [facility] [address] [facility] [id number] [place] [address]- 8213 Nov, [facility] [place] [facility] [address] [facility] [id number], [place] [address]- 5617 Oct, [facility] [address] [facility] [id number] [place] [id number] Oct, [facility] [place] [facility] [address] [facility] [id number], [place] [address]- 3736 Oct, [facility] [address] [facility] [id number] [place] [id number] Oct, [facility] [place] [facility] [address] [facility] [id number], [place] [address]- 7557 Oct, [facility] [address] [facility] [id number] [place] [id number] Sep, [facility] [place] [facility] [address]00565100[place], [place] [address]- 9036 Sep, [facility] [id number] [place] 8[address]69060 Aug, [facility] [place] [facility] [address] [facility] [id number], [place] [address]- 1820 Aug, [facility] [id number] [place] 013154635 Aug, [facility] [place] [facility] [address]00565100[place], [place] [address]- 6111 Aug, [facility] [place] [facility] [address] [facility] [id number], [place] [address]- 4433 Aug, [facility] [address] [facility] [id number] [place] [id number] Aug, [facility] [place] [facility] [address] [facility] [id number], [place] [address]- 0127 Aug, [facility] [place] [facility] [address] [facility] [id number], [place] [address]- 2479 Aug, [facility] [address] [facility] [id number] [place] [id number] Aug, [facility] [place] [facility] [address] [facility] [id number], [place] [address]- 6846 Aug, [facility] [address] [id number] [place] [id number] Jul, [facility] [address] [facility] [id number], [place] [address]- 2716 Jul, [facility] [address] [id number] [place] [id number] Jul, [facility] [address] [facility] [id number], [place] [address]- 7026 Jul, [facility] [address] [id number] [place] [id number] Jul, [facility] [address] [facility] [id number], [place] [address]- 5976 Jul, [facility] [address] [id number] [place] [id number] Jul, [facility] [address]00565100[place], [place] [address]- 7376 Jul, [facility] [address] [id number] [place] [id number] Jun, [facility] [address]00565100[place], [place] [address]- 0713 Jun, [facility] [address] [id number] [place] [id number] Jun, [facility] [address]00565100[place], [place] [address]- 4743 Jun, [facility] [place] [facility] [address] [facility] [id number], [place] [address]- 2546 Jun, [facility] [place] [facility] [address] [facility] [id number], [place] [address] Jun, [facility] [place] [address] [id number] [place] [id number] Apr, [facility] [place] [address] [id number] [place] [id number] Mar, [facility] [place] [address] [id number] [place] [id number] Mar, [facility] [place] [address] [id number] [place] [id number] Feb, [facility] [place] [address] [id number] [place] [id number] Feb, [facility] [place] [address] [id number] [place] [id number] Feb, [facility] [place] [address] [id number] [place] [id number] December, [facility] [place] [address] [id number] [place] [id number] December, [facility] [id number] [place] [id number] December, [facility] [place] [address] [id number] [place] [id number] December, [facility] [place] [address] [id number] [place] [id number] December, [facility] [place] [address] [id number] [place] [id number] Nov, [facility] [place] [address] [id number] [place] [address] Nov, [facility] [place] [address] [id number] [place] [id number] Nov, [facility] [place] [address] [id number] [place] [id number] Oct, [facility] [place] [address] [id number] [place] [id number] Sep, [facility] [place] [address] [id number] [place] [id number] Aug, [facility] [id number] [place] [id number] Aug, [facility] [place] [address] [id number] [place] [id number] Aug, [facility] [place] [address] [id number] [place] [id number] Jul, [facility] [address] [id number], [place] [address] Jul, [facility] [place] [address] [id number] [place] [id number] Jul, [facility] [address] [facility] [id number], [place] [address] Jul, [facility] [place] [address] [id number] [place] [id number] Jun, [facility] [address] [facility] [id number], [place] [address] Jun, [facility] [place] [address] [id number] [place] [id number] May, [facility] [address] [facility] [id number], [place] [address] May, [facility] [place] [address] [id number] [place] [id number] May, [facility] [address], [place] [address] May, [facility] [place] [address] [id number] [place] [id number] Apr, [facility] [place] [address] [id number] [place] [id number] Apr, [facility] [place] [address] [id number] [place] [id number] Mar, [facility] [place] [address] [id number] [place] [id number] Mar, [facility] [place] [address] [id number] [place] [id number] Feb, [facility] [place] [address] [id number] [place] [id number] Feb, [facility] [place] [address] [id number] [place] [id number] Jan, [facility] [place] [address] [id number] [place] [id number] Jan, [facility] [place] [address] [id number] [place] [id number] Jan, [facility] [place] [address] [id number] [place] [id number] Jan, [facility] [place] [address] [id number] [place] [id number] December, [facility] [place] [address] [id number] [place] [id number] December, [facility] [address] [id number] [place] [address] Nov, [facility] [place] [address] [id number] [place] [id number] Nov, [facility] [place] [address] [id number] [place] [id number] Nov, [facility] [place] [address] [id number] [place] [id number] Nov, [facility] [place] [address] [id number] [place] [id number] Nov, [facility] [address] [facility] [id number], [place] [address] [address] Oct, [facility] [address] [facility] [id number], [place] [address] Oct, [facility] [place] [address] [id number] [place] [id number] Oct, [facility] [place] [address] [id number] [place] [id number] Oct, [facility] [place] [address] [id number] [place] [id number] Oct, [facility] [place] [address] [id number] [place] [id number] Oct, [facility] [place] [address] [id number] [place] [id number] Oct, [facility] [place] [address] [id number] [place] [id number] Oct, [facility] [place] [address] [id number] [place] [id number] Oct, [facility] [address] [facility] [id number], [place] [address] Oct, [facility] [place] [address] [id number] [place] [id number] Sep, [facility] [place] [address] [id number] [place] [id number] Sep, [facility] [place] [address] [id number] [place] [id number] Aug, [facility] [place] [address] [facility] [id number] [place] [id number] Aug, [facility] [address] [facility] [id number], [place] [address] Jul, [facility] [place] [facility] [id number] [place] [address], [place] [address] Jul, [facility] [place] [facility] [id number] [place] [address]- 1627 Jul, [facility] [id number] [place] [address]- [address] Jul, [facility] [place] [facility] [address] [id number] [address] Jul, [facility] [id number] [place] [address] Jul, [facility] [id number], [place] [address] Jul, [facility] [id number], [place] [address] Jul, [facility] [id number], [place] [address] Jul, [facility] [id number] [address] Jul, [facility] [id number] [address] Jul, [facility] [id number] [address] 16 Jul, 2011 [facility] [address] [facility] [id number] [place] [id number] Jul, [facility] [address] [facility] [id number] [place] [id number] Jul, IMMUNIZATIONS No Known Immunizations SOCIAL HISTORY [...] renal failure--2010. Secondary to ATN from [facility] 4.3 Medical History HX of dry [...] in the future. Medical History 05/26/17 noted, detention has ended and they feel he is [...] Surgical History Left eye retinal eye repair ([facility]) 06/2014 Surgical History amputation, toe-right third toe ([facility]) 2013 Surgical History Right eye retinal eye repair ([facility]) 09/2014 Surgical History heart [...]
--- OUTSIDE RECORDS SUMMARY | 2018-06-20 11:11 | XMS REPORT ---
Author Author SATINDER GOOD [facility] Address [address] [place] [address] Care Team Providers Care Manager Labor Relations Name Role Phone SATINDER GOOD Unavailable PROBLEMS Type Condition ICD9-CM Code [id number] Code Onset Dates Condition Status SNOMED Code Problem Peripheral vascular disease I73.9 Active 698328389 Problem Coronary artery disease involving prairie band coronary artery of prairie band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 Active [id number] Problem S/P coronary artery stent placement Z95.5 Active 327943212 Problem Chronic obstructive pulmonary disease, unspecified COPD type J44.9 Active 86041348 Problem Type 2 diabetes mellitus with diabetic neuropathy E11.40 Active 50371616 Problem Bilateral low back pain without sciatica M54.5 Active 873905498 Problem 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 Active 314523385 Problem 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 Active 741154864 Problem Hypercholesterolemia E78.0 Active 43630759 Problem Comprehensive diabetic foot examination, type 2 DM, encounter for E11.9 Active 90175621 Problem Type 2 diabetes mellitus with diabetic polyneuropathy E11.42 Active 828762380 Problem Obesity (BMI 30.0-34.9) E66.9 Active 242980032142181 Problem Personal history of carotid stenosis Z86.79 Active 796938171 Problem Aphasia R47.01 Active 70903544 Problem Chronic diarrhea K52.9 Active 388510941 Problem Uses walker Z99.89 Active 748508308 Problem Chronic fatigue R53.82 Active 90515323 Problem Mixed stress and urge urinary incontinence N39.46 Active 386798770 Problem Chronic pain syndrome G89.4 Active 308452725 Problem High risk medication use Z79.899 Active 171185104 Problem Osteomyelitis of right foot, unspecified chronicity M86.9 Active 65975553 Problem Fatigue, unspecified type R53.83 Active 93978993 Problem Diabetes type 2, uncontrolled E11.65 Active 110997972 Problem Full incontinence of feces R15.9 Active 205257225973217 Problem Other chronic pain G89.29 Active 03883640 Problem Functional diarrhea K59.1 Active 51688030 Problem Fecal urgency R15.2 Active 81086007 Problem Depression F32.9 Active 17636743 Problem CKD (chronic kidney disease), stage 3 (moderate) N18.3 Active 730671864 Problem Hyperlipidemia, unspecified hyperlipidemia E78.5 Active 60740852 Problem CKD (chronic kidney disease) stage 3, GFR 30-59 ml/min N18.3 Active 833980822 Problem Type 2 diabetes mellitus with diabetic peripheral angiopathy without gangrene E11.51 Active 159674869 Problem Pain in left shoulder M25.512 Active 25359005 Problem Insulin long-term use Z79.4 Active 050037050 Problem Essential hypertension I10 Active 27968522 Problem Type 2 diabetes mellitus with diabetic retinopathy, macular edema presence unspecified, with unspecified retinopathy severity E11.319 Active 32882912 Problem Chronic kidney disease, unspecified N18.9 Active 386263567 Problem Type 2 diabetes mellitus with foot ulcer E11.621 Active 947596150 Problem Frequent falls R29.6 Active 445340337 Problem GERD without esophagitis K21.9 Active 511935503 Problem Mixed hyperlipidemia E78.2 Active 825759410 ALLERGIES No Information ENCOUNTERS Encounter Location Date Diagnosis [facility] [address] [id number] Feb, [facility] [address] [id number] Feb, [facility] [id number] [place] [address] [id number] Feb, Diabetes type 2, uncontrolled E11.65 [facility] [id number] [place] [address] [id number] 03 Feb, 2018 Other chronic pain G89.29 [facility] [id number] [place] [address] [id number] Jan, [facility] [id number] [place] [address] [id number] Jan, [facility] [address] [id number] Jan, [facility] [address] [facility] [id number] [id number] Jan, Other chronic pain G89.29 [address] [place] [address] [id number] December, Mixed stress and urge urinary incontinence N39.46 [address]100[place] [id number] December, Chronic fatigue R53.82 [address] [id number] [place] [address] [id number] December, Other chronic pain G89.29 [address] [place] [address] [id number] December, Diabetes type 2, uncontrolled E11.65 ; [...] [facility] [address] [id number] [address] December, [address]100[place] [id number] December, Medicare annual wellness visit, subsequent Z00.00 ; Type 2 diabetes mellitus with diabetic polyneuropathy E11.42 ; Chronic obstructive pulmonary disease, unspecified COPD type J44.9 ; Depression F32.9 ; Peripheral vascular disease I73.9 ; Coronary artery disease involving prairie band coronary artery of prairie band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 ; Hypercholesterolemia E78.0 ; GERD without esophagitis K21.9 and Chronic kidney disease, unspecified N18.9 [address] [id number] [id number] December, Mixed stress and urge urinary incontinence N39.46 ; Full incontinence of feces R15.9 ; Fecal urgency R15.2 ; Functional diarrhea K59.1 and Type 2 diabetes mellitus with diabetic neuropathy E11.40 [id number] [place] [address] [id number] Nov, Other chronic pain G89.29 [address] [id number] [place] [address] [id number] Oct, [address] [address] [id number] [place] [address] [id number] Oct, [place] [id number] [place] [address] [id number] Oct, Other chronic pain G89.[address] [id number] Sep, Other chronic pain G89.29 [address] [id number] [place] [address] [id number] Aug, CKD (chronic kidney disease), stage 3 (moderate) N18.3 ; Anemia, unspecified type D64.9 and Dilated pore of Ly L70.8 [address] [id number] [place] [address] [id number] Aug, Other chronic pain G89.29 ; Pain in left shoulder M25.512 ; High risk medication use Z79.899 ; Uses walker Z99.89 ; Diabetes type 2, uncontrolled E11.65 and Depression F32.9 [address] [place] [address] [id number] Aug, Chronic diarrhea K52.9 [address] [id number] [place] [address] [id number] Aug, Chronic diarrhea K52.9 ; Type 2 diabetes mellitus with diabetic neuropathy E11.40 ; Diabetes type 2, uncontrolled E11.65 ; Insulin long-term use Z79.4 ; Chronic obstructive pulmonary disease, unspecified COPD type J44.9 ; Chronic pain syndrome G89.4 ; Pain in left shoulder M25.512 ; Uses walker Z99.89 ; S/P coronary artery stent placement Z95.5 ; Mixed hyperlipidemia E78.2 and Essential hypertension I10 [address] [address] [id number] [id number] Aug, [facility] [address]100[place] [id number] Jul, Diabetes type 2, uncontrolled E11.65 [facility] [id number][place] [id number] Jul, Diabetes type 2, uncontrolled E11.65 ; Type 2 diabetes mellitus with diabetic neuropathy E11.40 ; Insulin long-term use Z79.4 and Chronic obstructive pulmonary disease, unspecified COPD type J44.9 [facility] [address]100[place] [id number] Jun, [address] [place] [address] [id number] Jun, Essential hypertension I10 [address] [place] [address] [id number] Jun, Essential hypertension I10 [address] [place] [address] [id number] Jun, Type 2 diabetes mellitus with diabetic neuropathy E11.40 ; Type 2 diabetes mellitus with diabetic polyneuropathy E11.42 ; S/P coronary artery stent placement Z95.5 ; Obesity (BMI 30.0-34.9) E66.9 ; Mixed hyperlipidemia E78.2 ; Frequent falls R29.6 ; Chronic obstructive pulmonary disease, unspecified COPD type J44.9 ; Essential hypertension I10 ; Insulin long-term use Z79.4 and High risk medication use Z79.899 [address] [id number] May, Diarrhea, unspecified type R19.7 ; Type 2 diabetes mellitus with diabetic neuropathy E11.40 ; Chronic obstructive pulmonary disease, unspecified COPD type J44.9 ; S/P coronary artery stent placement Z95.5 ; High risk medication use Z79.899 ; Essential hypertension I10 ; Encounter for administration of vaccine Z23 and Encounter for immunization Z23 [address] [address] [id number] [place] [id number] May, Chronic obstructive pulmonary disease, unspecified COPD type J44.[id number] [place] [address] [id number] May, Type 2 diabetes mellitus with diabetic polyneuropathy E11.42 ; Encounter for immunization Z23 ; Needs flu shot Z23 ; Comprehensive diabetic foot examination, type 2 DM, encounter for E11.9 and Obesity (BMI 30.0-34.9) E66.9 [address] [place] [address] [id number] May, [address] [id number] Apr, [address] [id number] Apr, Essential hypertension I10 and Aphasia R47.[address] [id number] Apr, [address] [id number] Apr, Type 2 diabetes mellitus with diabetic neuropathy E11.40 ; Frequent falls R29.6 ; Essential hypertension I10 ; S/P coronary artery stent placement Z95.5 ; High risk medication use Z79.899 ; Hyperlipidemia, unspecified hyperlipidemia E78.5 ; CKD (chronic kidney disease), stage 3 (moderate) N18.3 ; Pain in left shoulder M25.512 and Chronic obstructive pulmonary disease, unspecified COPD type J44.9 [address] [place] [address] [id number] Mar, [id number] [place] [address] [id number] Mar, Type 2 diabetes mellitus with diabetic polyneuropathy E11.42 ; Leg wound, left, initial encounter S81.802A ; Hx of shoulder surgery Z98.890 ; Acute pain of left shoulder M25.512 and Fall, initial encounter W19.XXXA [address] [id number] Feb, Follow-up exam Z09 ; Hx of shoulder surgery Z98.890 ; Acute pain of left shoulder M25.512 ; Essential hypertension I10 and Leg wound, left, initial encounter S81.802A [address], [place] [id number] Feb, [facility] [address] [id number] [id number] Feb, [facility] [id number] [place] [address] [id number] Feb, Chronic obstructive pulmonary disease, unspecified COPD type J44.9 [facility] [id number] [place] [address] [id number] Feb, [facility] [id number] [place] [address] [id number] Jan, Generalized weakness R53.1 ; Exertional shortness of breath R06.02 and Fungal rash of trunk B36.9 [facility] [id number] [place] [address] [id number] Jan, [facility] [id number] [place] [address] [id number] Jan, [facility] [id number] [place] [address] [id number] Jan, [facility] [id number] [place] [address] [id number] Jan, [facility] [id number] [place] [address] [id number] December, High risk medication use Z79.899 [facility] [id number] [place] [address] [id number] December, Type 2 diabetes mellitus with diabetic neuropathy E11.40 [facility] [id number] [place] [address] [id number] December, High risk medication use Z79.899 [facility] [id number] [id number] Nov, Diabetes type 2, uncontrolled E11.65 [facility] [id number] [place] [address] [id number] Nov, Medicare annual wellness visit, initial Z00.00 ; Bilateral low back pain without sciatica M54.5 ; Pain in left shoulder M25.512 ; Chronic pain syndrome G89.4 ; Type 2 diabetes mellitus with diabetic polyneuropathy E11.42 ; High risk medication use Z79.899 and Encounter for immunization Z23 [address] [place] [address] [id number] Nov, Type 2 diabetes mellitus with diabetic neuropathy E11.40 ; Coronary artery disease involving prairie band coronary artery of prairie band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 and CKD (chronic kidney disease), stage 3 (moderate) N18.3 [id number] [place] [address] [id number] Oct, Type 2 diabetes mellitus with diabetic polyneuropathy E11.42 ; Chronic pain syndrome G89.4 ; Chronic obstructive pulmonary disease, unspecified COPD type J44.9 ; Chronic kidney disease, unspecified N18.9 and Rash R21 [id number] [place] [address] [id number] Oct, Type 2 diabetes mellitus with diabetic neuropathy E11.40 [id number] [place] [address] [id number] Oct, Rash R21 and Impetigo L01.[address] [id number] Oct, Chronic pain syndrome G89.4 [id number] [place] [address] [id number] Oct, [address] [id number] [place] [address] [id number] Sep, Sebaceous cyst L72.3 [id number] [place] [address] [id number] Sep, Sebaceous cyst L72.3 [id number] [place] [address] [id number] Sep, Chronic pain syndrome G89.4 ; Pain in left shoulder M25.512 and Effusion of olecranon bursa, left M25.422 [facility] [address] [id number] Aug, [address] [id number] [place] [address] [id number] Aug, [address] [id number] Aug, Mixed hyperlipidemia E78.2 and Chronic kidney disease, unspecified N18.9 [id number] [place] [address] [id number] Jul, Type 2 diabetes mellitus with diabetic neuropathy E11.40 ; Essential hypertension I10 and S/P coronary artery stent placement Z95.5 [facility] [id number] [place] [address] [id number] Jul, 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 [facility] [id number] [place] [address] [id number] Jul, Diabetes type 2, uncontrolled E11.65 ; Essential hypertension I10 and 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 [place] [id number] [place] [address] [id number] Jul, [facility] [id number] [place] [address] [id number] Jul, [facility] [id number] [place] [address] [id number] Jul, [facility] [id number] [place] [address] [id number] Jul, Chronic obstructive pulmonary disease, unspecified COPD type J44.9 [id number] [place] [address] [id number] Jun, CKD (chronic kidney disease), stage 3 (moderate) N18.3 and Anemia, unspecified type D64.9 [address] [place] [address] [id number] Jun, Type 2 diabetes mellitus with diabetic neuropathy E11.40 ; Decreased GFR R94.4 ; CKD (chronic kidney disease), stage 3 (moderate) N18.3 and Decreased hemoglobin R71.0 [id number] [place] [address] [id number] Jun, CKD (chronic kidney disease), stage 3 (moderate) N18.3 and Anemia, unspecified type D64.9 [address] [place] [address] [id number] Jun, Type 2 diabetes mellitus with diabetic neuropathy E11.40 ; Decreased GFR R94.4 and CKD (chronic kidney disease), stage 3 (moderate) N18.3 [address] [place] [address] [id number] Jun, Type 2 diabetes mellitus with diabetic neuropathy E11.40 and Essential hypertension I10 [address] [id number] Jun, [address] [place] [address] [id number] Jun, [address] [id number] [place] [address] [id number] Jun, Type 2 diabetes mellitus with diabetic neuropathy E11.40 ; S/P coronary artery stent placement Z95.5 ; Chronic obstructive pulmonary disease, unspecified COPD type J44.9 ; Essential hypertension I10 ; GERD without esophagitis K21.9 ; Peripheral vascular disease I73.9 ; Mixed hyperlipidemia E78.2 and Hospital discharge follow-up Z09 [address] [place] [address] [id number] Jun, [id number] [place] [address] [id number] May, Depression F32.9 and Hyperlipidemia, unspecified hyperlipidemia E78.5 [facility] [address] [address] May, [place] [id number] [id number] May, [address] [place] [address] [id number] May, Essential hypertension I10 ; Chronic pain syndrome G89.4 ; Pain in left shoulder M25.512 ; High risk medication use Z79.899 ; Chronic obstructive pulmonary disease, unspecified COPD type J44.9 ; S/P coronary artery stent placement Z95.5 ; Personal history of carotid stenosis Z86.79 ; Hyperlipidemia, unspecified hyperlipidemia E78.5 ; Decreased GFR R94.4 and Type 2 diabetes mellitus with diabetic polyneuropathy E11.42 [address] [place] [address] [id number] May, Hemoglobin decreased R71.0 and Decreased GFR R94.4 [facility] [id number][place] [id number] May, Hemoglobin decreased R71.0 and Decreased GFR R94.4 [facility] [id number] [place] [address] [id number] May, [facility] [id number] [place] [address] [id number] May, [facility] [id number] [place] [address] [id number] Apr, [facility] [id number] [place] [address] [id number] Apr, Type 2 diabetes mellitus with foot [...] unspecified hyperlipidemia E78.5 and Essential hypertension I10 [facility] [id number] [place] [address] [id number] Apr, [facility] [id number] [place] [address] [id number] Mar, [facility] [id number] [place] [address] [id number] Mar, [facility] [address]100[place], [place] [address] Mar, [facility] [id number] [place] [address] [id number] Feb, [place] [id number] [place] [address] [id number] Feb, [facility] [id number] [place] [address] [id number] Feb, [id number] [place] [address] [id number] Jan, Type 2 diabetes mellitus with diabetic polyneuropathy E11.42 ; Hypercholesterolemia E78.0 ; Chronic pain syndrome G89.4 ; Pain in left shoulder M25.512 and High risk medication use Z79.899 [facility] [id number] [place] [address] [id number] Jan, [facility] [id number] [place] [address] [id number] Jan, [facility] [address] [id number] December, [facility] [id number] [place] [address] [id number] December, [place] [id number] [address] December, Diabetes type 2, uncontrolled E11.65 ; Type 2 diabetes mellitus with diabetic neuropathy E11.40 ; Peripheral vascular disease I73.9 ; 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 and 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 [facility] [id number] [place] [address] [id number] Nov, [facility] [id number] [place] [address] [id number] Nov, [facility] [id number] [place] [address] [id number] Nov, [facility] [id number] [place] [address] [id number] Nov, Right hip pain M25.551 [facility] [address] [address] Nov, [facility] [id number] [place] [phone] Nov, [facility] [address] [id number] Nov, Diabetes with neurological manifestations, type II or unspecified type, 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.60 [facility] [id number] [place] [address] [id number] Nov, [address] [id number] Nov, [facility] [address] [id number] [place] [id number] Oct, Diabetes type 2, uncontrolled E11.65 ; Type 2 diabetes mellitus with diabetic neuropathy, unspecified E11.40 and Low back pain M54.5 [facility] [address] [id number] [id number] Oct, [facility] [address] [id number] [place] [id number] Oct, [facility] [address] [id number] [place] [id number] Oct, [facility] [address] [id number] [place] [id number] Sep, [facility] [address] [id number][place] [id number] Sep, [facility] [address], [place] [address] Sep, [facility] [place] [address] [id number][place] [id number] Sep, [facility] [address] [id number][place] [id number] Sep, [facility] [id number], [place] [id number] Aug, 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 [facility] [address] [id number], [place] [id number] Aug, [facility] [place] [id number], [place] [id number] Aug, Allergic rhinitis due to pollen J30.1 [facility] [address] [id number], [place] [id number] Jul, [facility] [address] [id number], [place] [id number] Jul, [facility] [address] [id number][place] [id number] Jul, [facility] [id number], [place] [id number] Jun, [address] [id number], [place] [id number] Jun, Thumb tendonitis M77.8 and Ringing in ear, bilateral H93.13 [facility] [address] [id number][place] [id number] Jun, [address] [id number], [place] [id number] May, [place] [address] [id number] [place] [address] [id number] 2166 May, [place] [address] [id number] [place] [address] May, Pre-op evaluation Z01.818 ; Encounter for immunization Z23 ; Type 2 diabetes mellitus with diabetic peripheral angiopathy without gangrene E11.51 ; Insulin long-term use Z79.4 ; Type 2 diabetes mellitus with foot ulcer E11.621 ; Peripheral vascular disease I73.9 ; Coronary artery disease involving prairie band coronary artery of prairie band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 ; S/P coronary artery stent placement Z95.5 ; Osteomyelitis of right foot, unspecified chronicity M86.9 and Chronic obstructive pulmonary disease, unspecified COPD type J44.9 [place] [address]100[place], [place] [address] May, [address] [id number], [place] [id number] May, [address]100[place] [id number] May, Diabetes type 2, uncontrolled E11.65 ; Encounter for immunization Z23 ; Osteopenia M85.80 and Allergic rhinitis due to pollen J30.1 [address] [place] [address] [id number] May, Lumbago 724.2 [facility] [id number], [place] [id number] Apr, [facility] [address] [id number] [id number] Apr, [facility] [id number], [place] [id number] Apr, [facility] [address] [id number], [place] [id number] Apr, [facility] [facility] [id number], [place] [address] Mar, [facility] [address] [id number][place] [id number] Mar, [facility] [address] [id number], [place] [id number] Mar, [facility] [address] [id number] [place] [address] [id number] Mar, [facility] [id number] [place] [address] [id number] Mar, [facility] [id number] [place] [address]75- 0986 Mar, [facility] [id number], [place] [id number] Mar, [facility] [id number] [place] [address] [id number] Mar, Diabetes with neurological manifestations, type II or unspecified type, 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.60 and Severe obesity (BMI 35.0-35.9 with comorbidity) 278.01 [facility] [id number][place] [id number] Mar, [facility] [id number], [place] [address] Mar, [facility] [id number], [place] [address] Feb, [facility] [id number], [place] [id number] Feb, [facility] [address] [id number], [place] [id number] Feb, [facility] [id number], [place] [id number] Feb, Diabetes with neurological manifestations, type II or unspecified type, 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.60 [facility] [id number], [place] [id number] Feb, [facility] [id number] [place] [address]- 7358 Feb, [facility] [id number], [place] [id number] Feb, [facility] [id number] [place] [address] [id number] Feb, Follow up V67.9 ; Diabetes with neurological manifestations, type II or unspecified type, 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.60 and Congestive heart failure 428.0 [facility] [id number] [place] [address] [id number] Jan, [facility] [id number], [place] [id number] Jan, [facility] [id number] [place] [address] [id number] Jan, [facility] [id number], [place] 836206333 December, Otitis media with effusion 381.4 ; Left arm numbness 782.0 and Osteoporosis 733.00 [facility] [id number], [place] [id number] December, [facility] [id number], [place] 191327071 Nov, [facility] [id number], [place] [id number] Nov, Serous otitis media 381.4 and Lumbago 724.2 [facility] [id number], [place] [address] Nov, [facility] [id number] [place] [address] 38680- 1484 Nov, [facility] [id number], [place] [id number] Oct, [facility] [address] [id number], [place] [address] Oct, [facility] [address] [facility] [id number] [place] [id number] Oct, [facility] [place] [facility] [address] [facility] [id number], [place] [address] Oct, [facility] [address] [facility] [id number] [place] [id number] Oct, [facility] [place] [facility] [address] [facility] [id number], [place] [address]- 0658 Oct, [facility] [place] [facility] [address] [facility] [id number] [place] [address]- 2627 Sep, [facility] [place] [facility] [address] [facility] [id number] [place] [address]- 0176 Sep, [facility] [address] [id number] [place] [id number] Sep, [facility] [place] [facility] [address]005[address]100[place], [place] [address]- 7245 Sep, [facility] [address] [facility] [id number], [place] 913034039 Aug, [facility] [place] [facility] [address] [facility] [id number], [place] [address]- 6649 Aug, [facility] [address] [facility] [id number], [place] 944011390 Aug, [facility] [place] [facility] [address] [facility] [id number], [place] [address]- 2546 Aug, [facility] [address] [facility] [id number], [place] [id number] Jul, [facility] [place] [facility] [address] [facility] [id number], [place] [address]- 2546 Jul, [facility] [address] [facility] [id number], [place] [id number] Jul, [facility] [place] [facility] [address] [facility] [id number], [place] [address]- 5356 Jul, [facility] [address] [facility] [id number], [place] [id number] Jul, [facility] [place] [facility] [address] [facility] [id number], [place] [address]- 2309 Jul, [facility] [address] [facility] [id number], [place] [id number] Jun, [facility] [place] [facility] [address] [facility] [id number], [place] [address]- 2571 Jun, [facility] [address] [facility] [id number], [place] [id number] May, [facility] [place] [facility] [address] [facility] [id number], [place] [address]- 4093 May, [facility] [address] [facility] [id number], [place] [id number] May, [facility] [place] [facility] [address]00565100[place], [place] [address]- 3983 May, [facility] [address] [facility] [id number], [place] [id number] May, [facility] [place] [facility] [address] [id number], [place] [address]- 8328 May, [facility] [address] [facility] [id number], [place] [id number] May, [facility] [address] [facility] [id number], [place] 156124817 May, [facility] [place] [facility] [address]00565100[place], [place] [address] 2003 May, [facility] [place] [facility] [address] [facility] [id number], [place] [address]- 3123 May, [facility] [address] [facility] [id number], [place] [id number] May, [facility] [place] [facility] [address] [facility] [id number], [place] 730075- 2014 May, [facility] [place] [facility] [address] [id number], [place] 24609511- 3585 Apr, [facility] [address] [id number] [place] [id number] Apr, [facility] [place] [facility] [address] [facility] [id number], [place] [address]- 4441 Apr, [facility] [address] [id number] [place] 630414327 Apr, [facility] [address] [id number] [place] 009723929 Apr, [facility] [place] [facility] [address] [facility] [id number], [place] [address]- 8590 Apr, [facility] [place] [facility] [address] [facility] [id number], [place] [address]- 0744 Apr, [facility] [address] [facility] [id number] [place] 274421344 Apr, [facility] [place] [facility] [address]00565[address], [place] [address]- 9232 Apr, [facility] [address] [facility] [id number], [place] [id number] Apr, [facility] [place] [facility] [address] [facility] [id number], [place] [address]- 4722 Apr, [facility] [address] [facility] [id number], [place] 733557076 Apr, [facility] [place] [facility] [address] [facility] [id number], [place] [address]- 9212 Apr, [facility] [address] [id number], [place] 881372046 Apr, [facility] [place] [facility] [address] [facility] [id number], [place] [address]- 8798 Apr, [facility] [address] [id number], [place] 052346764 Apr, [facility] [place] [facility] [address] [facility] [id number], [place] [address]- 7011 Apr, [facility] [address] [facility] [id number], [place] 227546852 Apr, [facility] [place] [facility] [address] [id number], [place] [address]- 6555 Apr, [facility] [address] [id number] [place] 973124400 Mar, [facility] [place] [facility] [address] [facility] [id number], [place] [address]- 1771 Mar, [facility] [address] [id number] [place] 968296725 Mar, [facility] [address] [id number], [place] [id number] Mar, [facility] [place] [facility] [address] [facility] [id number], [place] [address]- 4573 Mar, [facility] [place] [facility] [address] [facility] [id number], [place] [address]- 9965 Mar, [facility] [address] [id number], [place] 817313810 Mar, [facility] [place] [facility] [address] [facility] [id number], [place] [address]- 2334 Mar, [facility] [address] [id number], [place] 694132383 Mar, [facility] [place] [facility] [address] [facility] [id number], [place] [address]- 0141 Mar, [facility] [address] [id number], [place] [id number] Mar, [facility] [place] [facility] [address] [facility] [id number], [place] [address]- 7556 Mar, [facility] [address] [id number], [place] 725417686 Mar, [facility] [place] [facility] [address] [facility] [id number], [place] [address]- 5380 Mar, [facility] [address] [id number], [place] 664297449 Mar, [facility] [place] [facility] [address] [facility] [id number], [place] [address]- 8971 Mar, [facility] [address] [id number] [place] 422938610 Mar, [facility] [place] [facility] [address] [id number] [place] [address]- 0432 Mar, [facility] [address] [id number] [place] 694156286 Mar, [facility] [place] [facility] [address] [id number] [place] 7[place]- 2415 Mar, [facility] [address] [id number] [place] [id number] Feb, [facility] [place] [facility] [address] [facility] [id number] [place] [address]- 0934 Feb, [facility] [address] [id number] [place] 472302955 Feb, [facility] [place] [facility] [address] [facility] [id number] [place] [address]- 3964 Feb, [facility] [address] [id number] [place] 577612828 Feb, [facility] [place] [facility] [address] [facility] [id number], [place] [address]- 5091 Feb, [facility] [address] [id number] [place] 589755565 Feb, [facility] [place] [facility] [address] [facility] [id number], [place] [address]- 3192 Feb, [facility] [address] [id number] [place] 217373873 Feb, [facility] [place] [facility] [address] [id number] [place] [address]- 4424 Feb, [facility] [address] [id number] [place] 196531591 Feb, [facility] [place] [facility] [address] [id number] [place] [address]- 4268 Feb, [facility] [address] [id number] [place] 800081262 Feb, [facility] [place] [facility] [address] [id number] [place] [address]- 8596 Feb, 2013 [facility] [address] [id number] [place] 109597743 Feb, [facility] [place] [facility] [address] [id number] [place] [address]- 9376 Feb, 2013 [facility] [address] [id number] [place] [id number] Feb, 2013 [facility] [place] [facility] [address] [id number] [place] [address]- 7866 Feb, 2013 [facility] [address] [id number] [place] 433271510 Feb, [facility] [address] [id number] [place] 855940946 Feb, [facility] [place] [facility] [address] [facility] [id number] [place] [address]- 2955 Feb, 2013 [facility] [place] [facility] [address] [facility] [id number] [place] [address]- 3674 Feb, [facility] [address] [id number] [place] 880566735 Feb, [facility] [place] [facility] [address] [facility] [id number] [place] [address]- 0488 Feb, [facility] [address] [id number] [place] 338414668 Feb, [facility] [place] [facility] [address] [facility] [id number] [place] [address]- 5576 Feb, [facility] [address] [id number] [place] 638771824 Feb, [facility] [place] [facility] [address] [facility] [id number] [place] [address]- 0856 Feb, [facility] [address] [id number] [place] 455902632 Jan, [facility] [place] [facility] [address] [facility] [id number] [place] [address]- 9459 Jan, [facility] [place] [facility] [address] [facility] [id number] [place] [address]- 6059 Jan, [facility] [place] [facility] [address] [facility] [id number] [place] [address]- 4642 Jan, [facility] [place] [facility] [address] [facility] [id number] [place] [address]- 8198 Jan, [facility] [place] [facility] [address] [facility] [id number] [place] [address]- 7394 Jan, [facility] [address] [facility] [id number] [place] 101477083 Jan, [facility] [place] [facility] [address] [facility] [id number], [place] [address]- 6852 Jan, [facility] [place] [facility] [address] [facility] [id number] [place] [address]- 2622 Jan, [facility] [place] [facility] [address] [facility] [id number], [place] [address]- 5705 Jan, [facility] [address] [id number] [place] 007233590 Jan, [facility] [address] [facility] [id number] [place] 830056099 Jan, [facility] [place] [facility] [address] [facility] [id number], [place] [address]- 6165 Jan, [facility] [place] [facility] [address] [facility] [id number], [place] [address]- 3405 Jan, [facility] [address] [id number], [place] 096774276 Jan, [facility] [address] [id number] [place] 952683548 Jan, [facility] [place] [facility] [address] [facility] [id number], [place] [address]- 9785 Jan, [facility] [place] [facility] [address] [facility] [id number], [place] [address]- 2953 Jan, [facility] [place] [facility] [address] [id number] [place] [address]- 2536 Jan, [facility] [address] [id number] [place] 841730216 December, [facility] [place] [facility] [address] [id number] [place] [address]- 1346 December, [facility] [place] [facility] [address] [id number] [place] [address]- 9074 December, [facility] [address] [id number] [place] 987049255 December, [facility] [place] [facility] [address] [id number] [place] [address]- 1883 December, [facility] [address] [facility] [id number] [place] 882476581 December, [facility] [place] [facility] [address] [id number] [place] [address]- 3597 December, [facility] [address] [facility] [id number] [place] 439041759 December, [facility] [place] [facility] [address] [id number] [place] [address]- 5795 December, [facility] [address] [facility] [id number][place] 709320832 Nov, [facility] [place] [facility] [address] [id number] [place] [address]- 3135 Nov, [facility] [address] [facility] [id number], [place] 273115361 Nov, [facility] [place] [facility] [address] [id number] [place] [address]- 6112 Nov, [facility] [place] [facility] [address] [id number] [place]- 1274 Nov, [facility] [place] [facility] [address] [id number] [place] [address]- 9906 Nov, [facility] [place] [facility] [address] [id number] [place] [address]- 3971 Oct, [facility] [address] [id number] [place] 329087849 Oct, [facility] [place] [facility] [address] [id number] [place] [address]- 6386 Oct, [facility] [address] [id number] [place] 657762163 Oct, [facility] [place] [facility] [address] [facility] [id number] [place] [address]- 7876 Oct, [facility] [address] [id number] [place] 148426055 Sep, [facility] [place] [facility] [address] [facility] [id number] [place] [address]- 0222 Sep, [facility] [address] [id number][place] 871792362 Aug, [facility] [address]00565100[place], [place] [address]- 9336 Aug, [facility] [address] [id number], [place] 009888961 Aug, [facility] [place] [facility] [address]00565100[place], [place] [address]- 3370 Aug, [facility] [place] [facility] [address] [facility] [id number], [place] [address]- 9108 Aug, [facility] [address] [id number], [place] 480770292 Aug, [facility] [place] [facility] [address] [facility] [id number], [place] [address]- 2106 Aug, [facility] [place] [facility] [address] [facility] [id number], [place] [address]- 4166 Aug, [facility] [address] [facility] [id number] [place] 755037358 Aug, [facility] [place] [facility] [address] [facility] [id number], [place] [address]- 0936 Aug, [facility] [address] [id number], [place] 963174176 Jul, [facility] [address] [id number], [place] [address]- 3288 Jul, [facility] [address] [id number], [place] 642734243 Jul, [facility] [address] [facility] [id number], [place] [address]- 2227 Jul, [facility] [address] [id number], [place] 665682025 Jul, [facility] [place] [facility] [address] [facility] [id number], [place] [address]- 1777 Jul, [facility] [address] [id number], [place] 121958866 Jul, [facility] [place] [facility] [address]00565100[place], [place] [address]- 3139 Jul, [facility] [address] [id number], [place] 983116054 Jun, [facility] [place] [facility] [address] [facility] [id number], [place] 226089- 5337 Jun, [facility] [address] [facility] [id number][place] [id number] Jun, [facility] [place] [facility] [address] [facility] [id number] Jun, [facility] [place] [facility] [id number], [place] [address] Jun, [facility] [place] [facility] [address] [facility] [id number], [place] [address] Jun, [facility] [address] [id number][place] [address] Apr, [facility] [address] [id number][place] [id number] Mar, [facility] [address] [id number][place] [id number] Mar, [facility] [address] [id number] [place] [id number] Feb, [facility] [place] [address] [id number] [place] [id number] Feb, [facility] [address] [id number] [place] [address] Feb, [facility] [address] [id number] [place] [id number] December, [facility] [address] [id number] [place] [address] December, [facility] [address] [facility] [id number], [place] [address] December, [facility] [place] [address] [id number] [place] [address] December, [facility] [address] [id number] [place] [address] December, [facility] [address] [id number] [place] [id number] Nov, [facility] [address] [id number] [place] [address] Nov, [facility] [address] [id number] [place] [address] Nov, [facility] [address] [id number] [place] [address] Oct, [facility] [address] [id number] [place] [address] Sep, [facility] [address] [id number] [place] [id number] Aug, [facility] [address] [facility] [id number], [place] [address] Aug, [facility] [address] [id number] [place] [id number] Aug, [facility] [address] [id number] [place] [id number] Jul, [facility] [address] [facility] [id number], [place] [address] Jul, [facility] [address] [id number] [place] [id number] Jul, [facility] [address] [id number], [place] [address] Jul, [facility] [address] [id number][place] [id number] Jun, [facility] [address] [facility] [id number], [place] [address] Jun, [facility] [address] [id number][place] [address] May, [facility] [address] [id number], [place] [address] May, [facility] [address] [id number][place] [id number] May, [facility] [address] [facility] [id number], [place] [address] May, [facility] [address] [id number][place] [address] Apr, [facility] [address] [id number][place] [address] Apr, [facility] [address] [id number][place] [id number] Mar, [facility] [address] [id number][place] [address] Mar, [facility] [address] [id number][place] [address] Feb, [facility] [address] [id number] [place] [address] Feb, [facility] [address] [id number] [place] [address] Jan, [facility] [address] [id number] [place] [id number] Jan, [facility] [address] [id number] [place] [address] Jan, [facility] [address] [id number], [place] [address] Jan, [facility] [address] [id number] [place] [address] December, [facility] [address] [id number] [place] [address] December, [facility] [address] [facility] [id number] [place] [address] Nov, [facility] [address] [id number] [place] [address] Nov, [facility] [address] [id number] [place] [address] Nov, [facility] [address] [id number] [place] [address] Nov, [facility] [address] [id number] [place] [id number] Nov, [facility] [address] [facility] [id number], [place] [address] Oct, [facility] [id number], [place] [address] Oct, [facility] [address] [id number] [place] [id number] Oct, [facility] [address] [id number] [place] [id number] Oct, [facility] [address] [id number] [place] [address] Oct, [facility] [address] [id number] [place] [address] Oct, [facility] [address] [id number] [place] [address] Oct, [facility] [address] [id number] [place] [address] Oct, [facility] [address] [id number] [place] [address] Oct, [facility] [address] [facility] [id number], [place] [address] Oct, [facility] [address] [id number] [place] [address] Sep, [facility] [address] [id number] [place] [address] Sep, [facility] [place] [address] [id number] [place] [id number] Aug, [facility] [place] [address] [id number] [place] [address] Aug, [facility] [address] [id number] [place] [address] Jul, [facility] [place] [facility] [address] [id number] [place] [address] Jul, [facility] [address] [id number] [place] [address] Jul, [facility] [address] [facility] [id number] [place] [address] Jul, [facility] [id number] [facility] [place] [address] Jul, [facility] [address] [facility] [id number] [place] [address] Jul, [facility] [place] [facility] [address] [facility] [id number] [place] [address] Jul, [facility] [address] [facility] [id number], [place] [address] Jul, [facility] [place] [facility] [address] [facility] [id number] [place] [address] Jul, [facility] [place] [facility] [address] [facility] [id number], [place] [address] Jul, [facility] [place] [facility] [address] [facility] [id number] [place] [address] Jul, [facility] [place] [facility] [address] [facility] [id number] [place] [address] 16 Jul, 2011 [facility] [place] [facility] [address] [facility] [id number], [place] [address] Jul, [facility] [address] [facility] [id number] [place] [address] Jul, IMMUNIZATIONS No Known Immunizations SOCIAL HISTORY Never Assessed REASON FOR VISIT clarification PLAN OF CARE VITAL SIGNS MEDICATIONS [...] in the future. Medical History 05/26/17 noted, prison has ended and they feel he is [...] History Left eye retinal eye repair ([facility]) 06/2014 Surgical History amputation, toe-right third toe (Nisreen) 2013 [facility]2014 Surgical History heart cath with stent in LAD ([facility]) 01/2015 Surgical History amputation, toe right great (Dr. Nielson) 05/2015 Surgical History left carpal tunnel release (Dr. Nelosn) 04/2016 Surgical History left shoulder replacement Dr. Contreras--left impacted two-part proximal humerus fracture, procedure left shoulder hemiarthroplasty with greater tuberosity repair 01/2017 Hospitalization History NSTEMI, acute respiratory failure, acute CHF, pneumonia, sepsis, CAD 01/2015 Hospitalization History [facility], Lung and Heart failure, resp insufficiency 06/2016
[2018-06-20 11:15] VITALS: BP 165/92
--- OUTSIDE RECORDS SUMMARY | 2018-06-20 11:16 | XMS REPORT | Continuity of Care Document ---
Author Author [facility] Address Unknown Phone Unavailable Allergies Active Description Code Type Severity Reaction Onset Reported/Identified Relationship to Patient Clinical Status Yes No Known Drug Allergies [id number] Drug Allergy Unknown N/A 09/16/2017 Medications There is no data. Problems Date Dx Coded Attending Type Code Diagnosis Diagnosed By 08/06/2011 FANNY RODRIGUES MD 250.02 DIABETES MELLITUS TYPE 2 - UNCOMPLICATED, UNCONTROLLED 08/06/2011 FANNY RODRIGUES MD 305.1 current smoker 08/06/2011 FANNY RODRIGUES MD 401.9 ESSENTIAL HYPERTENSION 08/06/2011 FANNY RODRIGUES MD 682.7 CELLULITIS OF THE LEFT FOOT 08/06/2011 FANNY RODRIGUES MD 250.02 DIABETES MELLITUS TYPE 2 - UNCOMPLICATED, UNCONTROLLED 08/06/2011 FANNY RODRIGUES MD 305.1 current smoker 08/06/2011 FANNY RODRIGUES MD 401.9 ESSENTIAL HYPERTENSION 08/06/2011 FANNY RODRIGUES MD 682.7 CELLULITIS OF THE LEFT FOOT 08/06/2011 250.02 DIABETES MELLITUS TYPE 2 - UNCOMPLICATED, UNCONTROLLED 08/06/2011 305.1 current smoker 08/06/2011 401.9 ESSENTIAL HYPERTENSION 08/06/2011 682.7 CELLULITIS OF THE LEFT FOOT 08/06/2011 250.02 DIABETES MELLITUS TYPE 2 - UNCOMPLICATED, UNCONTROLLED 08/06/2011 305.1 current smoker 08/06/2011 401.9 ESSENTIAL HYPERTENSION 08/06/2011 682.7 CELLULITIS OF THE LEFT FOOT 08/06/2011 250.02 DIABETES MELLITUS TYPE 2 - UNCOMPLICATED, UNCONTROLLED 08/06/2011 305.1 current smoker 08/06/2011 401.9 ESSENTIAL HYPERTENSION 08/06/2011 682.7 CELLULITIS OF THE LEFT FOOT 08/06/2011 FANNY RODRIGUES MD 250.02 DIABETES MELLITUS TYPE 2 - UNCOMPLICATED, UNCONTROLLED 08/06/2011 FANNY RODRIGUES MD 305.1 current smoker 08/06/2011 FANNY RODRIGUES MD 401.9 ESSENTIAL HYPERTENSION 08/06/2011 FANNY RODRIGUES MD 682.7 CELLULITIS OF THE LEFT FOOT 08/06/2011 250.02 DIABETES MELLITUS TYPE 2 - UNCOMPLICATED, UNCONTROLLED 08/06/2011 305.1 current smoker 08/06/2011 401.9 ESSENTIAL HYPERTENSION 08/06/2011 682.7 CELLULITIS OF THE LEFT FOOT 08/06/2011 250.02 DIABETES MELLITUS TYPE 2 - UNCOMPLICATED, UNCONTROLLED 08/06/2011 305.1 current smoker 08/06/2011 401.9 ESSENTIAL HYPERTENSION 08/06/2011 682.7 CELLULITIS OF THE LEFT FOOT 08/06/2011 FANNY RODRIGUES MD 250.02 DIABETES MELLITUS TYPE 2 - UNCOMPLICATED, UNCONTROLLED 08/06/2011 FANNY RODRIGUES MD 305.1 current smoker 08/06/2011 FANNY RODRIGUES MD 401.9 ESSENTIAL HYPERTENSION 08/06/2011 FANNY RODRIGUES MD 682.7 CELLULITIS OF THE LEFT FOOT 08/06/2011 LOPEZ DO, TEODORO K 250.02 DIABETES MELLITUS TYPE 2 - UNCOMPLICATED, UNCONTROLLED 08/06/2011 LOPEZ DO, TEODORO K 305.1 current smoker 08/06/2011 LOPEZ DO, TEODORO K 401.9 ESSENTIAL HYPERTENSION 08/06/2011 LOPEZ DO, TEODORO K 682.7 CELLULITIS OF THE LEFT FOOT 08/06/2011 LOPEZ DO, TEODORO K 250.02 DIABETES MELLITUS TYPE 2 - UNCOMPLICATED, UNCONTROLLED 08/06/2011 LOPEZ DO, TEODORO K 305.1 current smoker 08/06/2011 LOPEZ DO, TEODORO K 401.9 ESSENTIAL HYPERTENSION 08/06/2011 LOPEZ DO, TEODORO K 682.7 CELLULITIS OF THE LEFT FOOT 08/06/2011 LOPEZ DO, TEODORO K 250.02 DIABETES MELLITUS TYPE 2 - UNCOMPLICATED, UNCONTROLLED 08/06/2011 LOPEZ DO, TEODORO K 305.1 current smoker 08/06/2011 LOPEZ DO, TEODORO K 401.9 ESSENTIAL HYPERTENSION 08/06/2011 LOPEZ DO, TEODORO K 682.7 CELLULITIS OF THE LEFT FOOT 08/06/2011 LOPEZ DO, TEODORO K 250.02 DIABETES MELLITUS TYPE 2 - UNCOMPLICATED, UNCONTROLLED 08/06/2011 LOPEZ DO, TEODORO K 305.1 current smoker 08/06/2011 LOPEZ DO, TEODORO K 401.9 ESSENTIAL HYPERTENSION 08/06/2011 LOPEZ DO, TEODORO K 682.7 CELLULITIS OF THE LEFT FOOT 08/06/2011 LOPEZ DO, TEODORO K 250.02 DIABETES MELLITUS TYPE 2 - UNCOMPLICATED, UNCONTROLLED 08/06/2011 LOPEZ DO, TEODORO K 305.1 current smoker 08/06/2011 LOPEZ DO, TEODORO K 401.9 ESSENTIAL HYPERTENSION 08/06/2011 LOPEZ DO, TEODORO K 682.7 CELLULITIS OF THE LEFT FOOT 08/06/2011 [facility] PR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 E 250.02 DIABETES MELLITUS TYPE 2 - UNCOMPLICATED, UNCONTROLLED 08/06/2011 HELLYASMANI WINTERSN, MIGUEL E 305.1 current smoker 08/06/2011 MAKSIMLYASMANI WINTRESN, MIGUEL E 401.9 ESSENTIAL HYPERTENSION 08/06/2011 HELLYASMANI WINTERSN, MIGUEL E 682.7 CELLULITIS OF THE LEFT FOOT 08/06/2011 NIGEL MOSER, CONNIE N 250.02 DIABETES MELLITUS TYPE 2 - UNCOMPLICATED, UNCONTROLLED 08/06/2011 NIGEL MOSER, CONNIE N 305.1 current smoker 08/06/2011 NIGEL MOSER, CONNIE N 401.9 ESSENTIAL HYPERTENSION 08/06/2011 NIGEL MOSER, CONNIE N 682.7 CELLULITIS OF THE LEFT FOOT 08/06/2011 LOPEZ DO, TEODORO K 250.02 DIABETES MELLITUS TYPE 2 - UNCOMPLICATED, UNCONTROLLED 08/06/2011 LOPEZ DO, TEODORO K 305.1 current smoker 08/06/2011 LOPEZ DO, TEODORO K 401.9 ESSENTIAL HYPERTENSION 08/06/2011 LOPEZ DO, TEODORO K 682.7 CELLULITIS OF THE LEFT FOOT 08/06/2011 LOPEZ DO, TEODORO K 250.02 DIABETES MELLITUS TYPE 2 - UNCOMPLICATED, UNCONTROLLED 08/06/2011 LOPEZ DO, TEODORO K 305.1 current smoker 08/06/2011 LOPEZ DO, TEODORO K 401.9 ESSENTIAL HYPERTENSION 08/06/2011 LOPEZ DO, TEODORO K 682.7 CELLULITIS OF THE LEFT FOOT 08/06/2011 MAKSIMLWIG PRODUCT MARKETING SPECIALIST, MIGUEL E 250.02 DIABETES MELLITUS TYPE 2 - UNCOMPLICATED, UNCONTROLLED 08/06/2011 [facility] PR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 E 305.1 current smoker 08/06/2011 MAKSIMLYASMANI PRODUCT MARKETING SPECIALIST, MIGUEL E 401.9 ESSENTIAL HYPERTENSION 08/06/2011 HELLWIG PRODUCT MARKETING SPECIALIST, MIGUEL E 682.7 CELLULITIS OF THE LEFT FOOT 08/06/2011 LOPEZ DO, TEODORO K 250.02 DIABETES MELLITUS TYPE 2 - UNCOMPLICATED, UNCONTROLLED 08/06/2011 LOPEZ DO, TEODORO K 305.1 current smoker 08/06/2011 LOPEZ DO, TEODORO K 401.9 ESSENTIAL HYPERTENSION 08/06/2011 LOPEZ DO, TEODORO K 682.7 CELLULITIS OF THE LEFT FOOT 08/06/2011 MAKSIMPAUL PR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 E 250.02 DIABETES MELLITUS TYPE 2 - UNCOMPLICATED, UNCONTROLLED 08/06/2011 MAKSIMYASMANI PRODUCT MARKETING SPECIALIST, MIGUEL E 305.1 current smoker 08/06/2011 MAKSIMYASMANI WINTERSN, MIGUEL E 401.9 ESSENTIAL HYPERTENSION 08/06/2011 HELYASMANI PRODUCT MARKETING SPECIALIST, MIGUEL E 682.7 CELLULITIS OF THE LEFT FOOT 08/06/2011 LOPEZ DO, TEODORO K 250.02 DIABETES MELLITUS TYPE 2 - UNCOMPLICATED, UNCONTROLLED 08/06/2011 LOPEZ DO, TEODORO K 305.1 current smoker 08/06/2011 LOPEZ DO, TEODORO K 401.9 ESSENTIAL HYPERTENSION 08/06/2011 LOPEZ DO, TEODORO K 682.7 CELLULITIS OF THE LEFT FOOT 08/06/2011 LOPEZ DO, TEODORO K 250.02 DIABETES MELLITUS TYPE 2 - UNCOMPLICATED, UNCONTROLLED 08/06/2011 LOPEZ DO, TEODORO K 305.1 current smoker 08/06/2011 LOPEZ DO, TEODORO K 401.9 ESSENTIAL HYPERTENSION 08/06/2011 LOPEZ DO, TEODORO K 682.7 CELLULITIS OF THE LEFT FOOT 08/06/2011 LOPEZ DO, TEODORO K 250.02 DIABETES MELLITUS TYPE 2 - UNCOMPLICATED, UNCONTROLLED 08/06/2011 LOPEZ DO, TEODORO K 305.1 current smoker 08/06/2011 LOPEZ DO, TEODORO K 401.9 ESSENTIAL HYPERTENSION 08/06/2011 LOPEZ DO, TEODORO K 682.7 CELLULITIS OF THE LEFT FOOT 08/06/2011 LOPEZ DO, TEODORO K 250.02 DIABETES MELLITUS TYPE 2 - UNCOMPLICATED, UNCONTROLLED 08/06/2011 LOPEZ DO, TEODORO K 305.1 current smoker 08/06/2011 LOPEZ DO, TEODORO K 401.9 ESSENTIAL HYPERTENSION 08/06/2011 LOPEZ DO, TEODORO K 682.7 CELLULITIS OF THE LEFT FOOT 08/06/2011 LOPEZ DO, TEODORO K 250.02 DIABETES MELLITUS TYPE 2 - UNCOMPLICATED, UNCONTROLLED 08/06/2011 LOPEZ DO, TEODORO K 305.1 current smoker 08/06/2011 LOPEZ DO, TEODORO K 401.9 ESSENTIAL HYPERTENSION 08/06/2011 LOPEZ DO, TEODORO K 682.7 CELLULITIS OF THE LEFT FOOT 08/06/2011 LOPEZ DO, TEODORO K 250.02 DIABETES MELLITUS TYPE 2 - UNCOMPLICATED, UNCONTROLLED 08/06/2011 LOPEZ DO, TEODORO K 305.1 current smoker 08/06/2011 LOPEZ DO, TEODORO K 401.9 ESSENTIAL HYPERTENSION 08/06/2011 LOPEZ DO, TEODORO K 682.7 CELLULITIS OF THE LEFT FOOT 08/06/2011 LOPEZ DO, TEODORO K 250.02 DIABETES MELLITUS TYPE 2 - UNCOMPLICATED, UNCONTROLLED 08/06/2011 LOPEZ DO, TEODORO K 305.1 current smoker 08/06/2011 LOPEZ DO, TEODORO K 401.9 ESSENTIAL HYPERTENSION 08/06/2011 LOPEZ DO, TEODORO K 682.7 CELLULITIS OF THE LEFT FOOT 08/06/2011 LOPEZ DO, TEODORO K 250.02 DIABETES MELLITUS TYPE 2 - UNCOMPLICATED, UNCONTROLLED 08/06/2011 LOPEZ DO, TEODORO K 305.1 current smoker 08/06/2011 LOPEZ DO, TEODORO K 401.9 ESSENTIAL HYPERTENSION 08/06/2011 LOPEZ DO, TEODORO K 682.7 CELLULITIS OF THE LEFT FOOT 08/06/2011 MIRLANDE PATIÑO APRN 250.02 DIABETES MELLITUS TYPE 2 - UNCOMPLICATED, UNCONTROLLED 08/06/2011 MIRLANDE PATIÑO APRN 305.1 current smoker 08/06/2011 MIRLANDE PATIÑO APRN 401.9 ESSENTIAL HYPERTENSION 08/06/2011 MIRLANDE PATIÑO APRN 682.7 CELLULITIS OF THE LEFT FOOT 08/06/2011 LOPEZ DO, TEODORO K 250.02 DIABETES MELLITUS TYPE 2 - UNCOMPLICATED, UNCONTROLLED 08/06/2011 LOPEZ DO, TEODORO K 305.1 current smoker 08/06/2011 LOPEZ DO, TEODORO K 401.9 ESSENTIAL HYPERTENSION 08/06/2011 LOPEZ DO, TEODORO K 682.7 CELLULITIS OF THE LEFT FOOT 08/06/2011 LOPEZ DO, TEODORO K 250.02 DIABETES MELLITUS TYPE 2 - UNCOMPLICATED, UNCONTROLLED 08/06/2011 LOPEZ DO, TEODORO K 305.1 current smoker 08/06/2011 LOPEZ DO, TEODORO K 401.9 ESSENTIAL HYPERTENSION 08/06/2011 LOPEZ DO, TEODORO K 682.7 CELLULITIS OF THE LEFT FOOT 08/06/2011 LOPEZ DO, TEODORO K 250.02 DIABETES MELLITUS TYPE 2 - UNCOMPLICATED, UNCONTROLLED 08/06/2011 LOPEZ DO, TEODORO K 305.1 current smoker 08/06/2011 LOPEZ DO, TEODORO K 401.9 ESSENTIAL HYPERTENSION 08/06/2011 LOPEZ DO, TEODORO K 682.7 CELLULITIS OF THE LEFT FOOT 08/06/2011 OLPEZ DO, TEODORO K 250.02 DIABETES MELLITUS TYPE 2 - UNCOMPLICATED, UNCONTROLLED 08/06/2011 LOPEZ DO, TEODORO K 305.1 current smoker 08/06/2011 LOPEZ DO, TEODORO K 401.9 ESSENTIAL HYPERTENSION 08/06/2011 LOPEZ DO, TEODORO K 682.7 CELLULITIS OF THE LEFT FOOT 08/06/2011 LOPEZ DO, TEODORO K 250.02 DIABETES MELLITUS TYPE 2 - UNCOMPLICATED, UNCONTROLLED 08/06/2011 LOPEZ DO, TEODORO K 305.1 current smoker 08/06/2011 LOPEZ DO, TEODORO K 401.9 ESSENTIAL HYPERTENSION 08/06/2011 LOPEZ DO, TEODORO K 682.7 CELLULITIS OF THE LEFT FOOT 08/06/2011 LOPEZ DO, TEODORO K 250.02 DIABETES MELLITUS TYPE 2 - UNCOMPLICATED, UNCONTROLLED 08/06/2011 LOPEZ DO, TEODORO K 305.1 current smoker 08/06/2011 LOPEZ DO, TEODORO K 401.9 ESSENTIAL HYPERTENSION 08/06/2011 LOPEZ DO, TEODORO K 682.7 CELLULITIS OF THE LEFT FOOT 08/06/2011 [facility] PRODUCT MARKETING SPECIALIST, MIGUEL E 250.02 DIABETES MELLITUS TYPE 2 - UNCOMPLICATED, UNCONTROLLED 08/06/2011 [facility] PR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 E 305.1 current smoker 08/06/2011 [facility] PRODUCT MARKETING SPECIALIST, MIGUEL E 401.9 ESSENTIAL HYPERTENSION 08/06/2011 [facility] PR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 E 682.7 CELLULITIS OF THE LEFT FOOT 08/06/2011 LOPEZ DO, TEODORO K 250.02 DIABETES MELLITUS TYPE 2 - UNCOMPLICATED, UNCONTROLLED 08/06/2011 LOPEZ DO, TEODORO K 305.1 current smoker 08/06/2011 LOPEZ DO, TEODORO K 401.9 ESSENTIAL HYPERTENSION 08/06/2011 LOPEZ DO, TEODORO K 682.7 CELLULITIS OF THE LEFT FOOT 08/06/2011 LOPEZ DO, TEODORO K 250.02 DIABETES MELLITUS TYPE 2 - UNCOMPLICATED, UNCONTROLLED 08/06/2011 LOPEZ DO, TEODORO K 305.1 current smoker 08/06/2011 LOPEZ DO, TEODORO K 401.9 ESSENTIAL HYPERTENSION 08/06/2011 LOPEZ DO, TEODORO K 682.7 CELLULITIS OF THE LEFT FOOT 08/06/2011 LOPEZ DO, TEODORO K 250.02 DIABETES MELLITUS TYPE 2 - UNCOMPLICATED, UNCONTROLLED 08/06/2011 LOPEZ DO, TEODORO K 305.1 current smoker 08/06/2011 LOPEZ DO, TEODORO K 401.9 ESSENTIAL HYPERTENSION 08/06/2011 LOPEZ DO, TEODORO K 682.7 CELLULITIS OF THE LEFT FOOT 08/06/2011 HELLWIG PRODUCT MARKETING SPECIALIST, MIGUEL E 250.02 DIABETES MELLITUS TYPE 2 - UNCOMPLICATED, UNCONTROLLED 08/06/2011 HELLWIG PRODUCT MARKETING SPECIALIST, MIGUEL E 305.1 current smoker 08/06/2011 HELLWIG PRODUCT MARKETING SPECIALIST, MIGUEL E 401.9 ESSENTIAL HYPERTENSION 08/06/2011 HELLWIG PRODUCT MARKETING SPECIALIST, MIGUEL E 682.7 CELLULITIS OF THE LEFT FOOT 08/06/2011 HELLWIG PRODUCT MARKETING SPECIALIST, MIGUEL E 250.02 DIABETES MELLITUS TYPE 2 - UNCOMPLICATED, UNCONTROLLED 08/06/2011 HELL[facility] PRODUCT MARKETING SPECIALIST, MIGUEL E 305.1 current smoker 08/06/2011 MAKSIMLWIG PRODUCT MARKETING SPECIALIST, MIGUEL E 401.9 ESSENTIAL HYPERTENSION 08/06/2011 HELLWIG PRODUCT MARKETING SPECIALIST, MIGUEL E 682.7 CELLULITIS OF THE LEFT FOOT 08/06/2011 HELLWIG PRODUCT MARKETING SPECIALIST, MIGUEL E 250.02 DIABETES MELLITUS TYPE 2 - UNCOMPLICATED, UNCONTROLLED 08/06/2011 HELL[facility]IG PRODUCT MARKETING SPECIALIST, MIGUEL E 305.1 current smoker 08/06/2011 MAKSIMLWIG LIV, MIGUEL E 401.9 ESSENTIAL HYPERTENSION 08/06/2011 [facility] PECK, MIGUEL E 682.7 CELLULITIS OF THE LEFT FOOT 08/06/2011 MIRLANDE PATIÑO APRN R 250.02 DIABETES MELLITUS TYPE 2 - UNCOMPLICATED, UNCONTROLLED 08/06/2011 MIRLANDE PATIÑO APRN R 305.1 current smoker 08/06/2011 MIRLANDE PATIÑO APRN R 401.9 ESSENTIAL HYPERTENSION 08/06/2011 MIRLANDE PATIÑO APRN R 682.7 CELLULITIS OF THE LEFT FOOT 08/06/2011 FANNY RODRIGUES MD 250.02 DIABETES MELLITUS TYPE 2 - UNCOMPLICATED, UNCONTROLLED 08/06/2011 FANNY RODRIGUES MD 305.1 current smoker 08/06/2011 FANNY RODRIGUES MD 401.9 ESSENTIAL HYPERTENSION 08/06/2011 FANNY RODRIGUES MD 682.7 CELLULITIS OF THE LEFT FOOT 08/06/2011 MIRLANDE PATIÑO APRN R 250.02 DIABETES MELLITUS TYPE 2 - UNCOMPLICATED, UNCONTROLLED 08/06/2011 MIRLANDE PATIÑO APRN R 305.1 current smoker 08/06/2011 MIRLANDE PATIÑO APRN R 401.9 ESSENTIAL HYPERTENSION 08/06/2011 MIRLANDE PATIÑO APRN R 682.7 CELLULITIS OF THE LEFT FOOT 08/06/2011 [facility] E 250.02 DIABETES MELLITUS TYPE 2 - UNCOMPLICATED, UNCONTROLLED 08/06/2011 MAKSIMVIJAY GRUBER APRNSIE E 305.1 current smoker 08/06/2011 VIJAY ARVIZU APRNSIE E 401.9 ESSENTIAL HYPERTENSION 08/06/2011 MIGUEL ARVIZU APRN E 682.7 CELLULITIS OF THE LEFT FOOT 08/06/2011 LOPEZ DO TEODORO K 250.02 DIABETES MELLITUS TYPE 2 - UNCOMPLICATED, UNCONTROLLED 08/06/2011 LOPEZ DO, TEODORO K 305.1 current smoker 08/06/2011 LOPEZ DO, TEODORO K 401.9 ESSENTIAL HYPERTENSION 08/06/2011 LOPEZ DO, TEODORO K 682.7 CELLULITIS OF THE LEFT FOOT 08/06/2011 MIRLANDE PATIÑO APRN R 250.02 DIABETES MELLITUS TYPE 2 - UNCOMPLICATED, UNCONTROLLED 08/06/2011 MIRLANDE PATIÑO APRN R 305.1 current smoker 08/06/2011 MIRLANDE PATIÑO APRN R 401.9 ESSENTIAL HYPERTENSION 08/06/2011 MIRLANDE PATIÑO APRN 682.7 CELLULITIS OF THE LEFT FOOT 08/06/2011 MIRLANDE PATIÑO APRN 250.02 DIABETES MELLITUS TYPE 2 - UNCOMPLICATED, UNCONTROLLED 08/06/2011 MIRLANDE PATIÑO APRN R 305.1 current smoker 08/06/2011 MIRLANDE PATIÑO APRN R 401.9 ESSENTIAL HYPERTENSION 08/06/2011 MIRLANDE PATIÑO APRN R 682.7 CELLULITIS OF THE LEFT FOOT 08/06/2011 LOPEZ DO, TEODORO K 250.02 DIABETES MELLITUS TYPE 2 - UNCOMPLICATED, UNCONTROLLED 08/06/2011 LOPEZ DO, TEODORO K 305.1 current smoker 08/06/2011 LOPEZ DO, TEODORO K 401.9 ESSENTIAL HYPERTENSION 08/06/2011 LOPEZ DO, TEODORO K 682.7 CELLULITIS OF THE LEFT FOOT 08/06/2011 LOPEZ DO, TEODORO K 250.02 DIABETES MELLITUS TYPE 2 - UNCOMPLICATED, UNCONTROLLED 08/06/2011 LOPEZ DO, TEODORO K 305.1 current smoker 08/06/2011 LOPEZ DO, TEODORO K 401.9 ESSENTIAL HYPERTENSION 08/06/2011 LOPEZ DO, TEODORO K 682.7 CELLULITIS OF THE LEFT FOOT 08/06/2011 LOPEZ DO, TEODORO K 250.02 DIABETES MELLITUS TYPE 2 - UNCOMPLICATED, UNCONTROLLED 08/06/2011 LOPEZ DO, TEODORO K 305.1 current smoker 08/06/2011 LOPEZ DO, TEODORO K 401.9 ESSENTIAL HYPERTENSION 08/06/2011 LOPEZ DO, TEODORO K 682.7 CELLULITIS OF THE LEFT FOOT 08/06/2011 LOPEZ DO, TEODORO K 250.02 DIABETES MELLITUS TYPE 2 - UNCOMPLICATED, UNCONTROLLED 08/06/2011 LOPEZ DO, TEODORO K 305.1 current smoker 08/06/2011 LOPEZ DO, TEODORO K 401.9 ESSENTIAL HYPERTENSION 08/06/2011 LOPEZ DO, TEODORO K 682.7 CELLULITIS OF THE LEFT FOOT 08/06/2011 LOPEZ DO, TEODORO K 250.02 DIABETES MELLITUS TYPE 2 - UNCOMPLICATED, UNCONTROLLED 08/06/2011 LOPEZ DO, TEODORO K 305.1 current smoker 08/06/2011 LOPEZ DO, TEODORO K 401.9 ESSENTIAL HYPERTENSION 08/06/2011 LOPEZ DO, TEODORO K 682.7 CELLULITIS OF THE LEFT FOOT 08/06/2011 LOPEZ DO, TEODORO K 250.02 DIABETES MELLITUS TYPE 2 - UNCOMPLICATED, UNCONTROLLED 08/06/2011 LOPEZ DO, TEODORO K 305.1 current smoker 08/06/2011 LOPEZ DO, TEODORO K 401.9 ESSENTIAL HYPERTENSION 08/06/2011 LOPEZ DO, TEODORO K 682.7 CELLULITIS OF THE LEFT FOOT 08/06/2011 MAKSIMLWIG PRODUCT MARKETING SPECIALIST, MIGUEL E 250.02 DIABETES MELLITUS TYPE 2 - UNCOMPLICATED, UNCONTROLLED 08/06/2011 [facility] PR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 E 305.1 current smoker 08/06/2011 HELLWIG PRODUCT MARKETING SPECIALIST, MIGUEL E 401.9 ESSENTIAL HYPERTENSION 08/06/2011 HELLWIG PRODUCT MARKETING SPECIALIST, MIGUEL E 682.7 CELLULITIS OF THE LEFT FOOT 08/06/2011 LOPEZ DO, TEODORO K 250.02 DIABETES MELLITUS TYPE 2 - UNCOMPLICATED, UNCONTROLLED 08/06/2011 LOPEZ DO, TEODORO K 305.1 current smoker 08/06/2011 LOPEZ DO, TEODORO K 401.9 ESSENTIAL HYPERTENSION 08/06/2011 LOPEZ DO, TEODORO K 682.7 CELLULITIS OF THE LEFT FOOT 08/06/2011 MAKSIMWIG PRODUCT MARKETING SPECIALIST, MIGUEL E 250.02 DIABETES MELLITUS TYPE 2 - UNCOMPLICATED, UNCONTROLLED 08/06/2011 HELWIG PRODUCT MARKETING SPECIALIST, MIGUEL E 305.1 current smoker 08/06/2011 [facility]ET[facility], MIGUEL E 401.9 ESSENTIAL HYPERTENSION 08/06/2011 HELWIG PRODUCT MARKETING SPECIALIST, MIGUEL E 682.7 CELLULITIS OF THE LEFT FOOT 08/06/2011 HEL[facility] PRODUCT MARKETING SPECIALIST, MIGUEL E 250.02 DIABETES MELLITUS TYPE 2 - UNCOMPLICATED, UNCONTROLLED 08/06/2011 [facility] PR[facility] MARKETING SPECIALIST, MIGUEL E 305.1 current smoker 08/06/2011 [facility] PRODUCT MARKETING SPECIALIST, MIGUEL E 401.9 ESSENTIAL HYPERTENSION 08/06/2011 [facility] PRODUCT MARKETING SPECIALIST, MIGUEL E 682.7 CELLULITIS OF THE LEFT FOOT 08/06/2011 LOPEZ DO, TEODORO K 250.02 DIABETES MELLITUS TYPE 2 - UNCOMPLICATED, UNCONTROLLED 08/06/2011 LOPEZ DO, TEODORO K 305.1 current smoker 08/06/2011 LOPEZ DO, TEODORO K 401.9 ESSENTIAL HYPERTENSION 08/06/2011 LOPEZ DO, TEODORO K 682.7 CELLULITIS OF THE LEFT FOOT 08/06/2011 [facility] PRODUCT MARKETING SPECIALIST, MIGUEL E 250.02 DIABETES MELLITUS TYPE 2 - UNCOMPLICATED, UNCONTROLLED 08/06/2011 [facility] PRODUCT MARKETING SPECIALIST, MIGUEL E 305.1 current smoker 08/06/2011 [facility] PRODUCT MARKETING SPECIALIST, MIGUEL E 401.9 ESSENTIAL HYPERTENSION 08/06/2011 [facility] PRODUCT MARKETING SPECIALIST, MIGUEL E 682.7 CELLULITIS OF THE LEFT FOOT 08/06/2011 LOPEZ DO, TEODORO K 250.02 DIABETES MELLITUS TYPE 2 - UNCOMPLICATED, UNCONTROLLED 08/06/2011 LOPEZ DO, TEODORO K 305.1 current smoker 08/06/2011 LOPEZ DO, TEODORO K 401.9 ESSENTIAL HYPERTENSION 08/06/2011 LOPEZ DO, TEODORO K 682.7 CELLULITIS OF THE LEFT FOOT 08/13/2011 Ot 041.10 08/13/2011 Ot 112.2 08/13/2011 Ot 250.72 08/13/2011 Ot 300.00 08/13/2011 Ot 304.31 08/13/2011 Ot 305.1 08/13/2011 Ot 311 08/13/2011 Ot 351.0 08/13/2011 Ot 356.9 08/13/2011 Ot 401.9 08/13/2011 Ot 584.9 08/13/2011 Ot 682.6 08/13/2011 Ot 682.7 08/13/2011 Ot 693.0 08/13/2011 Ot 785.4 08/13/2011 Ot E930.0 08/18/2011 FANNY RODRIGUES MD 58Sabra.5 ACUTE KIDNEY FAILURE DUE TO TUBULAR NECROSIS 08/18/2011 FANNY RODRIGUES MD 785.4 GANGRENE DRY (ISCHEMIC) 08/18/2011 FANNY RODRIGUES MD 584.5 ACUTE KIDNEY FAILURE DUE TO TUBULAR NECROSIS 08/18/2011 FANNY RODRIGUES MD 785.4 GANGRENE DRY (ISCHEMIC) 08/18/2011 584.5 ACUTE KIDNEY FAILURE DUE TO TUBULAR NECROSIS 08/18/2011 785.4 GANGRENE DRY ( ISCHEMIC) 08/18/2011 584.5 ACUTE KIDNEY FAILURE DUE TO TUBULAR NECROSIS 08/18/2011 785.4 GANGRENE DRY ( ISCHEMIC) 08/18/2011 584.5 ACUTE KIDNEY FAILURE DUE TO TUBULAR NECROSIS 08/18/2011 785.4 GANGRENE DRY ( ISCHEMIC) 08/18/2011 FANNY RODRIGUES MD 584.5 ACUTE KIDNEY FAILURE DUE TO TUBULAR NECROSIS 08/18/2011 FANNY RODRIGUES MD 785.4 GANGRENE DRY (ISCHEMIC) 08/18/2011 584.5 ACUTE KIDNEY FAILURE DUE TO TUBULAR NECROSIS 08/18/2011 785.4 GANGRENE DRY ( ISCHEMIC) 08/18/2011 584.5 ACUTE KIDNEY FAILURE DUE TO TUBULAR NECROSIS 08/18/2011 785.4 GANGRENE DRY ( ISCHEMIC) 08/18/2011 FANNY RODRIGUES MD 584.5 ACUTE KIDNEY FAILURE DUE TO TUBULAR NECROSIS 08/18/2011 FANNY RODRIGUES MD 785.4 GANGRENE DRY (ISCHEMIC) 08/18/2011 TEODORO LOPEZ DO K 584.5 ACUTE KIDNEY FAILURE DUE TO TUBULAR NECROSIS 08/18/2011 TEODORO LOPEZ DO K 785.4 GANGRENE DRY (ISCHEMIC) 08/18/2011 LOPEZ DO, TEODORO K 584.5 ACUTE KIDNEY FAILURE DUE TO TUBULAR NECROSIS 08/18/2011 LOPEZ DO, TEODORO K 785.4 GANGRENE DRY (ISCHEMIC) 08/18/2011 LOPEZ DO, TEODORO K 584.5 ACUTE KIDNEY FAILURE DUE TO TUBULAR NECROSIS 08/18/2011 LOPEZ DO, TEODORO K 785.4 GANGRENE DRY (ISCHEMIC) 08/18/2011 LOPEZ DO, TEODORO K 584.5 ACUTE KIDNEY FAILURE DUE TO TUBULAR NECROSIS 08/18/2011 LOPEZ DO, TEODORO K 785.4 GANGRENE DRY (ISCHEMIC) 08/18/2011 LOPEZ DO, TEODORO K 584.5 ACUTE KIDNEY FAILURE DUE TO TUBULAR NECROSIS 08/18/2011 LOPEZ DO, TEODORO K 785.4 GANGRENE DRY (ISCHEMIC) 08/18/2011 [facility] PECK MIGUEL E 584.5 ACUTE KIDNEY FAILURE DUE TO TUBULAR NECROSIS 08/18/2011 VIJAY ARVIZU APRNSIE E 785.4 GANGRENE DRY (ISCHEMIC) 08/18/2011 CONNIE MANNING MD N 584.5 ACUTE KIDNEY FAILURE DUE TO TUBULAR NECROSIS 08/18/2011 CONNIE MANNING MD N 785.4 GANGRENE DRY (ISCHEMIC) 08/18/2011 LOPEZ DO, TEODORO K 584.5 ACUTE KIDNEY FAILURE DUE TO TUBULAR NECROSIS 08/18/2011 LOPEZ DO, TEODORO K 785.4 GANGRENE DRY (ISCHEMIC) 08/18/2011 LOPEZ DO, TEODORO K 584.5 ACUTE KIDNEY FAILURE DUE TO TUBULAR NECROSIS 08/18/2011 LOPEZ DO, TEODORO K 785.4 GANGRENE DRY (ISCHEMIC) 08/18/2011 [facility] WINTERSN MIGUEL E 584.5 ACUTE KIDNEY FAILURE DUE TO TUBULAR NECROSIS 08/18/2011 [facility] WINTERSN MIGUEL E 785.4 GANGRENE DRY (ISCHEMIC) 08/18/2011 LOPEZ DO, TEODORO K 584.5 ACUTE KIDNEY FAILURE DUE TO TUBULAR NECROSIS 08/18/2011 LOPEZ DO, TEODORO K 785.4 GANGRENE DRY (ISCHEMIC) 08/18/2011 [facility] [employer]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 E 584.5 ACUTE KIDNEY FAILURE DUE TO TUBULAR NECROSIS 08/18/2011 [facility] WINTERSN MIGUEL E 785.4 GANGRENE DRY (ISCHEMIC) 08/18/2011 LOPEZ DO, TEODORO K 584.5 ACUTE KIDNEY FAILURE DUE TO TUBULAR NECROSIS 08/18/2011 LOPEZ DO, TEODORO K 785.4 GANGRENE DRY (ISCHEMIC) 08/18/2011 LOPEZ DO, TEODORO K 584.5 ACUTE KIDNEY FAILURE DUE TO TUBULAR NECROSIS 08/18/2011 LOPEZ DO, TEODORO K 785.4 GANGRENE DRY (ISCHEMIC) 08/18/2011 LOPEZ DO, TEODORO K 584.5 ACUTE KIDNEY FAILURE DUE TO TUBULAR NECROSIS 08/18/2011 LOPEZ DO, TEODORO K 785.4 GANGRENE DRY (ISCHEMIC) 08/18/2011 LOPEZ DO, TEODORO K 584.5 ACUTE KIDNEY FAILURE DUE TO TUBULAR NECROSIS 08/18/2011 LOPEZ DO, TEODORO K 785.4 GANGRENE DRY (ISCHEMIC) 08/18/2011 LOPEZ DO, TEODORO K 584.5 ACUTE KIDNEY FAILURE DUE TO TUBULAR NECROSIS 08/18/2011 LOPEZ DO, TEODORO K 785.4 GANGRENE DRY (ISCHEMIC) 08/18/2011 LOPEZ DO, TEODORO K 584.5 ACUTE KIDNEY FAILURE DUE TO TUBULAR NECROSIS 08/18/2011 LOPEZ DO, TEODORO K 785.4 GANGRENE DRY (ISCHEMIC) 08/18/2011 LOPEZ DO, TEODORO K 584.5 ACUTE KIDNEY FAILURE DUE TO TUBULAR NECROSIS 08/18/2011 LOPEZ DO, TEODORO K 785.4 GANGRENE DRY (ISCHEMIC) 08/18/2011 LOPEZ DO, TEODORO K 584.5 ACUTE KIDNEY FAILURE DUE TO TUBULAR NECROSIS 08/18/2011 LOPEZ DO, TEODORO K 785.4 GANGRENE DRY (ISCHEMIC) 08/18/2011 MIRLANDE PATIÑO APRN 584.5 ACUTE KIDNEY FAILURE DUE TO TUBULAR NECROSIS 08/18/2011 MIRLANDE PATIÑO APRN 785.4 GANGRENE DRY (ISCHEMIC) 08/18/2011 LOPEZ DO, TEODORO K 584.5 ACUTE KIDNEY FAILURE DUE TO TUBULAR NECROSIS 08/18/2011 LOPEZ DO, TEODORO K 785.4 GANGRENE DRY (ISCHEMIC) 08/18/2011 LOPEZ DO, TEODORO K 584.5 ACUTE KIDNEY FAILURE DUE TO TUBULAR NECROSIS 08/18/2011 LOPEZ DO, TEODORO K 785.4 GANGRENE DRY (ISCHEMIC) 08/18/2011 LOPEZ DO, TEODORO K 584.5 ACUTE KIDNEY FAILURE DUE TO TUBULAR NECROSIS 08/18/2011 LOPEZ DO, TEODORO K 785.4 GANGRENE DRY (ISCHEMIC) 08/18/2011 LOPEZ DO, TEODORO K 584.5 ACUTE KIDNEY FAILURE DUE TO TUBULAR NECROSIS 08/18/2011 LOPEZ DO, TEODORO K 785.4 GANGRENE DRY (ISCHEMIC) 08/18/2011 LOPEZ DO, TEODORO K 584.5 ACUTE KIDNEY FAILURE DUE TO TUBULAR NECROSIS 08/18/2011 LOPEZ DO, TEODORO K 785.4 GANGRENE DRY (ISCHEMIC) 08/18/2011 LOPEZ DO, TEODORO K 584.5 ACUTE KIDNEY FAILURE DUE TO TUBULAR NECROSIS 08/18/2011 LOPEZ DO, TEODORO K 785.4 GANGRENE DRY (ISCHEMIC) 08/18/2011 [facility] [employer]IST, MIGUEL E 584.5 ACUTE KIDNEY FAILURE DUE TO TUBULAR NECROSIS 08/18/2011 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, 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 E 785.4 GANGRENE DRY (ISCHEMIC) 08/18/2011 LOPEZ DO, TEODORO K 584.5 ACUTE KIDNEY FAILURE DUE TO TUBULAR NECROSIS 08/18/2011 LOPEZ DO, TEODORO K 785.4 GANGRENE DRY (ISCHEMIC) 08/18/2011 LOPEZ DO, TEODORO K 584.5 ACUTE KIDNEY FAILURE DUE TO TUBULAR NECROSIS 08/18/2011 LOPEZ DO, TEODORO K 785.4 GANGRENE DRY (ISCHEMIC) 08/18/2011 LOPEZ DO, TEODORO K 584.5 ACUTE KIDNEY FAILURE DUE TO TUBULAR NECROSIS 08/18/2011 LOPEZ DO, TEODORO K 785.4 GANGRENE DRY (ISCHEMIC) 08/18/2011 HELLWIG PRODUCT MARKETING SPECIALIST, MIGUEL E 584.5 ACUTE KIDNEY FAILURE DUE TO TUBULAR NECROSIS 08/18/2011 HELLWIG PRODUCT MARKETING SPECIALIST, MIGUEL E 785.4 GANGRENE DRY (ISCHEMIC) 08/18/2011 HELLWIG PRODUCT MARKETING SPECIALIST, MIGUEL E 584.5 ACUTE KIDNEY FAILURE DUE TO TUBULAR NECROSIS 08/18/2011 HELLWIG PRODUCT MARKETING SPECIALIST, MIGUEL E 785.4 GANGRENE DRY (ISCHEMIC) 08/18/2011 HELLWIG PRODUCT MARKETING SPECIALIST, MIGUEL E 584.5 ACUTE KIDNEY FAILURE DUE TO TUBULAR NECROSIS 08/18/2011 HELLWIG PRODUCT MARKETING SPECIALIST, MIGUEL E 785.4 GANGRENE DRY (ISCHEMIC) 08/18/2011 MIRLANDE PATIÑO APRN 584.5 ACUTE KIDNEY FAILURE DUE TO TUBULAR NECROSIS 08/18/2011 MIRLANDE PATIÑO APRN 785.4 GANGRENE DRY (ISCHEMIC) 08/18/2011 FANNY RODRIGUES MD 584.5 ACUTE KIDNEY FAILURE DUE TO TUBULAR NECROSIS 08/18/2011 FANNY RODRIGUES MD 785.4 GANGRENE DRY (ISCHEMIC) 08/18/2011 MIRLANDE PATIÑO APRN 584.5 ACUTE KIDNEY FAILURE DUE TO TUBULAR NECROSIS 08/18/2011 MIRLANDE PATIÑO APRN 785.4 GANGRENE DRY (ISCHEMIC) 08/18/2011 MIGUEL ARVIZU APRN 584.5 ACUTE KIDNEY FAILURE DUE TO TUBULAR NECROSIS 08/18/2011 MIGUEL ARVIZU APRN 785.4 GANGRENE DRY (ISCHEMIC) 08/18/2011 VIJAY LOPEZ DOA K 584.5 ACUTE KIDNEY FAILURE DUE TO TUBULAR NECROSIS 08/18/2011 JESSICA HAMM TEODORO K 785.4 GANGRENE DRY (ISCHEMIC) 08/18/2011 MIRLANDE PATIÑO APRN 584.5 ACUTE KIDNEY FAILURE DUE TO TUBULAR NECROSIS 08/18/2011 MIRLANDE PATIÑO APRN 785.4 GANGRENE DRY (ISCHEMIC) 08/18/2011 MIRLANDE PATIÑO APRN 584.5 ACUTE KIDNEY FAILURE DUE TO TUBULAR NECROSIS 08/18/2011 MIRLANDE PATIÑO APRN 785.4 GANGRENE DRY (ISCHEMIC) 08/18/2011 JESSICA DO TEODORO K 584.5 ACUTE KIDNEY FAILURE DUE TO TUBULAR NECROSIS 08/18/2011 LOPEZ DO, TEODORO K 785.4 GANGRENE DRY (ISCHEMIC) 08/18/2011 LOPEZ DO, TEODORO K 584.5 ACUTE KIDNEY FAILURE DUE TO TUBULAR NECROSIS 08/18/2011 LOPEZ DO, TEODORO K 785.4 GANGRENE DRY (ISCHEMIC) 08/18/2011 LOPEZ DO, TEODORO K 584.5 ACUTE KIDNEY FAILURE DUE TO TUBULAR NECROSIS 08/18/2011 LOPEZ DO, TEODORO K 785.4 GANGRENE DRY (ISCHEMIC) 08/18/2011 LOPEZ DO TEODORO K 584.5 ACUTE KIDNEY FAILURE DUE TO TUBULAR NECROSIS 08/18/2011 LOPEZ DO, TEODORO K 785.4 GANGRENE DRY (ISCHEMIC) 08/18/2011 LOPEZ DO, TEODORO K 584.5 ACUTE KIDNEY FAILURE DUE TO TUBULAR NECROSIS 08/18/2011 LOPEZ DO, TEODORO K 785.4 GANGRENE DRY (ISCHEMIC) 08/18/2011 LOPEZ DO, TEODORO K 584.5 ACUTE KIDNEY FAILURE DUE TO TUBULAR NECROSIS 08/18/2011 LOPEZ DO, TEODORO K 785.4 GANGRENE DRY (ISCHEMIC) 08/18/2011 HELLWIG PRODUCT MARKETING SPECIALIST, MIGUEL E 584.5 ACUTE KIDNEY FAILURE DUE TO TUBULAR NECROSIS 08/18/2011 HELLWIG PRODUCT MARKETING SPECIALIST, MIGUEL E 785.4 GANGRENE DRY (ISCHEMIC) 08/18/2011 LOPEZ DO, TEODORO K 584.5 ACUTE KIDNEY FAILURE DUE TO TUBULAR NECROSIS 08/18/2011 LOPEZ DO, TEODORO K 785.4 GANGRENE DRY (ISCHEMIC) 08/18/2011 HELLWIG PRODUCT MARKETING SPECIALIST, MIGUEL E 584.5 ACUTE KIDNEY FAILURE DUE TO TUBULAR NECROSIS 08/18/2011 HELLWIG PRODUCT MARKETING SPECIALIST, MIGUEL E 785.4 GANGRENE DRY (ISCHEMIC) 08/18/2011 HELL[employer]IG PRODUCT MARKETING SPECIALIST, MIGUEL E 584.5 ACUTE KIDNEY FAILURE DUE TO TUBULAR NECROSIS 08/18/2011 HELL[employer]IG PRODUCT MARKETING SPECIALIST, MIGUEL E 785.4 GANGRENE DRY (ISCHEMIC) 08/18/2011 LOPEZ DO, TEODORO K 584.5 ACUTE KIDNEY FAILURE DUE TO TUBULAR NECROSIS 08/18/2011 LOPEZ DO, TEODORO K 785.4 GANGRENE DRY (ISCHEMIC) 08/18/2011 HELLWIG PRODUCT MARKETING SPECIALIST, MIGUEL E 584.5 ACUTE KIDNEY FAILURE DUE TO TUBULAR NECROSIS 08/18/2011 HELLWIG PRODUCT MARKETING SPECIALIST, MIGUEL E 785.4 GANGRENE DRY (ISCHEMIC) 08/18/2011 LOPEZ DO, TEODORO K 584.5 ACUTE KIDNEY FAILURE DUE TO TUBULAR NECROSIS 08/18/2011 LOPEZ DO, TEODORO K 785.4 GANGRENE DRY (ISCHEMIC) 08/25/2011 FANNY RODRIGUES MD 250.00 DIABETES MELLITUS TYPE 2 - UNCOMPLICATED, CONTROLLED 08/25/2011 FANNY RODRIGUES MD 250.00 DIABETES MELLITUS TYPE 2 - UNCOMPLICATED, CONTROLLED 08/25/2011 250.00 DIABETES MELLITUS TYPE 2 - UNCOMPLICATED, CONTROLLED 08/25/2011 250.00 DIABETES MELLITUS TYPE 2 - UNCOMPLICATED, CONTROLLED 08/25/2011 250.00 DIABETES MELLITUS TYPE 2 - UNCOMPLICATED, CONTROLLED 08/25/2011 LILIA MOSER, FANNY 250.00 DIABETES MELLITUS TYPE 2 - UNCOMPLICATED, CONTROLLED 08/25/2011 250.00 DIABETES MELLITUS TYPE 2 - UNCOMPLICATED, CONTROLLED 08/25/2011 250.00 DIABETES MELLITUS TYPE 2 - UNCOMPLICATED, CONTROLLED 08/25/2011 LILIA MOSER, FANNY 250.00 DIABETES MELLITUS TYPE 2 - UNCOMPLICATED, CONTROLLED 08/25/2011 LOPEZ DO, TEODORO K 250.00 DIABETES MELLITUS TYPE 2 - UNCOMPLICATED, CONTROLLED 08/25/2011 LOPEZ DO, TEODORO K 250.00 DIABETES MELLITUS TYPE 2 - UNCOMPLICATED, CONTROLLED 08/25/2011 LOPEZ DO, TEODORO K 250.00 DIABETES MELLITUS TYPE 2 - UNCOMPLICATED, CONTROLLED 08/25/2011 LOPEZ DO, TEODORO K 250.00 DIABETES MELLITUS TYPE 2 - UNCOMPLICATED, CONTROLLED 08/25/2011 LOPEZ DO, TEODORO K 250.00 DIABETES MELLITUS TYPE 2 - UNCOMPLICATED, CONTROLLED 08/25/2011 MIGUEL ARVIZU APRN E 250.00 DIABETES MELLITUS TYPE 2 - UNCOMPLICATED, CONTROLLED 08/25/2011 NIGEL MOSER, CONNIE N 250.00 DIABETES MELLITUS TYPE 2 - UNCOMPLICATED, CONTROLLED 08/25/2011 LOPEZ DO, TEODORO K 250.00 DIABETES MELLITUS TYPE 2 - UNCOMPLICATED, CONTROLLED 08/25/2011 LOPEZ DO, TEODORO K 250.00 DIABETES MELLITUS TYPE 2 - UNCOMPLICATED, CONTROLLED 08/25/2011 MIGUEL ARVIZU APRN E 250.00 DIABETES MELLITUS TYPE 2 - UNCOMPLICATED, CONTROLLED 08/25/2011 LOPEZ DO, TEODORO K 250.00 DIABETES MELLITUS TYPE 2 - UNCOMPLICATED, CONTROLLED 08/25/2011 MIGUEL ARVIZU APRN E 250.00 DIABETES MELLITUS TYPE 2 - UNCOMPLICATED, CONTROLLED 08/25/2011 LOPEZ DO, TEODORO K 250.00 DIABETES MELLITUS TYPE 2 - UNCOMPLICATED, CONTROLLED 08/25/2011 LOPEZ DO, TEODORO K 250.00 DIABETES MELLITUS TYPE 2 - UNCOMPLICATED, CONTROLLED 08/25/2011 LOPEZ DO, TEODORO K 250.00 DIABETES MELLITUS TYPE 2 - UNCOMPLICATED, CONTROLLED 08/25/2011 LOPEZ DO, TEODORO K 250.00 DIABETES MELLITUS TYPE 2 - UNCOMPLICATED, CONTROLLED 08/25/2011 LOPEZ DO, TEODORO K 250.00 DIABETES MELLITUS TYPE 2 - UNCOMPLICATED, CONTROLLED 08/25/2011 LOPEZ DO, TEODORO K 250.00 DIABETES MELLITUS TYPE 2 - UNCOMPLICATED, CONTROLLED 08/25/2011 LOPEZ DO, TEODORO K 250.00 DIABETES MELLITUS TYPE 2 - UNCOMPLICATED, CONTROLLED 08/25/2011 LOPEZ DO, TEODORO K 250.00 DIABETES MELLITUS TYPE 2 - UNCOMPLICATED, CONTROLLED 08/25/2011 MIRLANDE PATIÑO APRN 250.00 DIABETES MELLITUS TYPE 2 - UNCOMPLICATED, CONTROLLED 08/25/2011 LOPEZ DO, TEODORO K 250.00 DIABETES MELLITUS TYPE 2 - UNCOMPLICATED, CONTROLLED 08/25/2011 LOPEZ DO, TEODORO K 250.00 DIABETES MELLITUS TYPE 2 - UNCOMPLICATED, CONTROLLED 08/25/2011 LOPEZ DO, TEODORO K 250.00 DIABETES MELLITUS TYPE 2 - UNCOMPLICATED, CONTROLLED 08/25/2011 LOPEZ DO, TEODORO K 250.00 DIABETES MELLITUS TYPE 2 - UNCOMPLICATED, CONTROLLED 08/25/2011 LOPEZ DO, TEODORO K 250.00 DIABETES MELLITUS TYPE 2 - UNCOMPLICATED, CONTROLLED 08/25/2011 LOPEZ DO, TEODORO K 250.00 DIABETES MELLITUS TYPE 2 - UNCOMPLICATED, CONTROLLED 08/25/2011 LATOYA ARVIZU APRNE E 250.00 DIABETES MELLITUS TYPE 2 - UNCOMPLICATED, CONTROLLED 08/25/2011 LOPEZ DO, TEODORO K 250.00 DIABETES MELLITUS TYPE 2 - UNCOMPLICATED, CONTROLLED 08/25/2011 LOPEZ DO, TEODORO K 250.00 DIABETES MELLITUS TYPE 2 - UNCOMPLICATED, CONTROLLED 08/25/2011 LOPEZ DO, TEODORO K 250.00 DIABETES MELLITUS TYPE 2 - UNCOMPLICATED, CONTROLLED 08/25/2011 LATOYA AVRIZU APRNE E 250.00 DIABETES MELLITUS TYPE 2 - UNCOMPLICATED, CONTROLLED 08/25/2011 MIGUEL ARVIZU APRN E 250.00 DIABETES MELLITUS TYPE 2 - UNCOMPLICATED, CONTROLLED 08/25/2011 MIGUEL ARVIZU APRN E 250.00 DIABETES MELLITUS TYPE 2 - UNCOMPLICATED, CONTROLLED 08/25/2011 MIRLANDE PATIÑO APRN 250.00 DIABETES MELLITUS TYPE 2 - UNCOMPLICATED, CONTROLLED 08/25/2011 FANNY RODRIGUES MD 250.00 DIABETES MELLITUS TYPE 2 - UNCOMPLICATED, CONTROLLED 08/25/2011 MIRLANDE PATIÑO APRN 250.00 DIABETES MELLITUS TYPE 2 - UNCOMPLICATED, CONTROLLED 08/25/2011 MIGUEL ARVIZU APRN E 250.00 DIABETES MELLITUS TYPE 2 - UNCOMPLICATED, CONTROLLED 08/25/2011 LOPEZ DO, TEODORO K 250.00 DIABETES MELLITUS TYPE 2 - UNCOMPLICATED, CONTROLLED 08/25/2011 MIRLANDE PATIÑO APRN R 250.00 DIABETES MELLITUS TYPE 2 - UNCOMPLICATED, CONTROLLED 08/25/2011 MIRLANDE PATIÑO APRN R 250.00 DIABETES MELLITUS TYPE 2 - UNCOMPLICATED, CONTROLLED 08/25/2011 LOPEZ DO, TEODORO K 250.00 DIABETES MELLITUS TYPE 2 - UNCOMPLICATED, CONTROLLED 08/25/2011 LOPEZ DO, TEODORO K 250.00 DIABETES MELLITUS TYPE 2 - UNCOMPLICATED, CONTROLLED 08/25/2011 LOPEZ DO, TEODORO K 250.00 DIABETES MELLITUS TYPE 2 - UNCOMPLICATED, CONTROLLED 08/25/2011 LOPEZ DO, TEODORO K 250.00 DIABETES MELLITUS TYPE 2 - UNCOMPLICATED, CONTROLLED 08/25/2011 LOPEZ DO, TEODORO K 250.00 DIABETES MELLITUS TYPE 2 - UNCOMPLICATED, CONTROLLED 08/25/2011 LOPEZ DO, TEODORO K 250.00 DIABETES MELLITUS TYPE 2 - UNCOMPLICATED, CONTROLLED 08/25/2011 [facility] PECK MIGUEL E 250.00 DIABETES MELLITUS TYPE 2 - UNCOMPLICATED, CONTROLLED 08/25/2011 LOPEZ DO, TEODORO K 250.00 DIABETES MELLITUS TYPE 2 - UNCOMPLICATED, CONTROLLED 08/25/2011 [facility] PECK MIGUEL E 250.00 DIABETES MELLITUS TYPE 2 - UNCOMPLICATED, CONTROLLED 08/25/2011 [facility] PECK MIGUEL E 250.00 DIABETES MELLITUS TYPE 2 - UNCOMPLICATED, CONTROLLED 08/25/2011 LOPEZ DO, TEODORO K 250.00 DIABETES MELLITUS TYPE 2 - UNCOMPLICATED, CONTROLLED 08/25/2011 [facility] PECK MIGUEL E 250.00 DIABETES MELLITUS TYPE 2 - UNCOMPLICATED, CONTROLLED 08/25/2011 LOPEZ DO, TEODORO K 250.00 DIABETES MELLITUS TYPE 2 - UNCOMPLICATED, CONTROLLED 08/28/2011 FANNY RODRIGUES MD 607.84 MALE ERECTILE DISORDER DUE TO PHYSICAL CONDITION 08/28/2011 FANNY RODRIGUES MD 607.84 MALE ERECTILE DISORDER DUE TO PHYSICAL CONDITION 08/28/2011 607.84 MALE ERECTILE DISORDER DUE TO PHYSICAL CONDITION 08/28/2011 607.84 MALE ERECTILE DISORDER DUE TO PHYSICAL CONDITION 08/28/2011 607.84 MALE ERECTILE DISORDER DUE TO PHYSICAL CONDITION 08/28/2011 FANNY RODRIGUES MD 607.84 MALE ERECTILE DISORDER DUE TO PHYSICAL CONDITION 08/28/2011 607.84 MALE ERECTILE DISORDER DUE TO PHYSICAL CONDITION 08/28/2011 607.84 MALE ERECTILE DISORDER DUE TO PHYSICAL CONDITION 08/28/2011 RODRIGUES MD, FANNY 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 08/28/2011 LOPEZ DO, TEODORO K 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 08/28/2011 LOPEZ DO, TEODORO K 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 08/28/2011 LOPEZ DO, TEODORO K 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 08/28/2011 LOPEZ DO, TEODORO K 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 08/28/2011 LOPEZ DO, TEODORO K 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 08/28/2011 [facility] P[facility]K MIGUEL E 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 08/28/2011 NIGEL MOSER, CONNIE Akhtar 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 08/28/2011 LOPEZ DO, TEODORO K 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 08/28/2011 LOPEZ DO, TEODORO K 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 08/28/2011 [facility] P[facility] MIGUEL E 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 08/28/2011 LOPEZ DO, TEODORO K 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 08/28/2011 [facility] P[facility]K MIGUEL E 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 08/28/2011 LOPEZ DO, TEODORO K 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 08/28/2011 LOPEZ DO, TEODORO K 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 08/28/2011 LOPEZ DO, TEODORO K 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 08/28/2011 LOPEZ DO, TEODORO K 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 08/28/2011 LOPEZ DO, TEODORO K 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 08/28/2011 LOPEZ DO, TEODORO K 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 08/28/2011 LOPEZ DO, TEODORO K 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 08/28/2011 LOPEZ DO, TEODORO K 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 08/28/2011 MIRLANDE PATIÑO APRN 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 08/28/2011 LOPEZ DO, TEODORO K 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 08/28/2011 LOPEZ DO, TEODORO K 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 08/28/2011 LOPEZ DO, TEODORO K 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 08/28/2011 LOPEZ DO, TEODORO K 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 08/28/2011 LOPEZ DO, TEODORO K 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 08/28/2011 LOPEZ DO, TEODORO K 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 08/28/2011 [facility] P[facility]K MIGUEL E 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 08/28/2011 LOPEZ DO, TEODORO K 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 08/28/2011 LOPEZ DO, TEODORO K 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 08/28/2011 LOPEZ DO, TEODORO K 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 08/28/2011 [facility] P[facility]K MIGUEL E 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 08/28/2011 [facility] P[facility]K MIGUEL E 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 08/28/2011 [facility] P[facility]K MIGUEL E 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 08/28/2011 MIRLANDE PATIÑO APRN R 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 08/28/2011 LOPEZ DO, TEODORO K 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 08/28/2011 [facility] PECK, MIGUEL E 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 08/28/2011 LOPEZ DO, TEODORO K 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 08/28/2011 [facility] PRODUCT MARKETING SPECIALIST, MIGUEL E 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 08/28/2011 [facility] PRODUCT MARKETING SPECIALIST, MIGUEL E 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 08/28/2011 LOPEZ DO, TEODORO K 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 08/28/2011 [facility] PRODUCT MARKETING SPECIALIST, MIGUEL E 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 08/28/2011 LOPEZ DO, TEODORO K 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 10/06/2011 FANNY RODRIGUES MD 250.60 DIABETES WITH DIABETIC NEUROPATHY 10/06/2011 FANNY RODRIGUES MD V03.82 Need For Vaccination Pneumococcal 10/06/2011 FANNY RODRIGUES MD V04.81 Vaccines Prophylactic Need Against Influenza 10/06/2011 FANNY RODRIGUES MD 250.60 DIABETES WITH DIABETIC NEUROPATHY 10/06/2011 FANNY RODRIGUES MD V03.82 Need For Vaccination Pneumococcal 10/06/2011 FANNY RODRIGUES MD V04.81 Vaccines Prophylactic Need Against Influenza 10/06/2011 250.60 DIABETES WITH DIABETIC NEUROPATHY 10/06/2011 V03.82 Need For Vaccination Pneumococcal 10/06/2011 V04.81 Vaccines Prophylactic Need Against Influenza 10/06/2011 250.60 DIABETES WITH DIABETIC NEUROPATHY 10/06/2011 V03.82 Need For Vaccination Pneumococcal 10/06/2011 V04.81 Vaccines Prophylactic Need Against Influenza 10/06/2011 250.60 DIABETES WITH DIABETIC NEUROPATHY 10/06/2011 V03.82 Need For Vaccination Pneumococcal 10/06/2011 V04.81 Vaccines Prophylactic Need Against Influenza 10/06/2011 FANNY RODRIGUES MD 250.60 DIABETES WITH DIABETIC NEUROPATHY 10/06/2011 FANNY RODRIGUES MD V03.82 Need For Vaccination Pneumococcal 10/06/2011 FANNY RODRIGUES MD V04.81 Vaccines Prophylactic Need Against Influenza 10/06/2011 250.60 DIABETES WITH DIABETIC NEUROPATHY 10/06/2011 V03.82 Need For Vaccination Pneumococcal 10/06/2011 V04.81 Vaccines Prophylactic Need Against Influenza 10/06/2011 250.60 DIABETES WITH DIABETIC NEUROPATHY 10/06/2011 V03.82 Need For Vaccination Pneumococcal 10/06/2011 V04.81 Vaccines Prophylactic Need Against Influenza 10/06/2011 FANNY RODRIGUES MD 250.60 DIABETES WITH DIABETIC NEUROPATHY 10/06/2011 FANNY RODRIGUES MD V03.82 Need For Vaccination Pneumococcal 10/06/2011 FANNY RODRIGUES MD V04.81 Vaccines Prophylactic Need Against Influenza 10/06/2011 TEODORO LOPEZ DO K 250.60 DIABETES WITH DIABETIC NEUROPATHY 10/06/2011 OLPEZ DO TEODORO K V03.82 Need For Vaccination Pneumococcal 10/06/2011 LOPEZ DO TEODORO K V04.81 Vaccines Prophylactic Need Against Influenza 10/06/2011 LOPEZ DO TEODORO K 250.60 DIABETES WITH DIABETIC NEUROPATHY 10/06/2011 LOPEZ DO, TEODORO K V03.82 Need For Vaccination Pneumococcal 10/06/2011 LOPEZ DO TEODORO K V04.81 Vaccines Prophylactic Need Against Influenza 10/06/2011 LOPEZ DO TEODORO K 250.60 DIABETES WITH DIABETIC NEUROPATHY 10/06/2011 LOPEZ DO, TEODORO K V03.82 Need For Vaccination Pneumococcal 10/06/2011 JESSICA HAMM TEODORO K V04.81 Vaccines Prophylactic Need Against Influenza 10/06/2011 JESSICA HAMM TEODORO K 250.60 DIABETES WITH DIABETIC NEUROPATHY 10/06/2011 LOPEZ DO, TEODORO K V03.82 Need For Vaccination Pneumococcal 10/06/2011 JESSICA HAMM TEODORO K V04.81 Vaccines Prophylactic Need Against Influenza 10/06/2011 JESSICA HAMM TEODORO K 250.60 DIABETES WITH DIABETIC NEUROPATHY 10/06/2011 LOPEZ DO TEODORO K V03.82 Need For Vaccination Pneumococcal 10/06/2011 JESSICA HAMM TEODORO K V04.81 Vaccines Prophylactic Need Against Influenza 10/06/2011 MIGUEL ARVIZU APRN 250.60 DIABETES WITH DIABETIC NEUROPATHY 10/06/2011 MIGUEL ARVIZU APRN V03.82 Need For Vaccination Pneumococcal 10/06/2011 MIGUEL ARVIZU APRN V04.81 Vaccines Prophylactic Need Against Influenza 10/06/2011 CONNIE MANNING MD 250.60 DIABETES WITH DIABETIC NEUROPATHY 10/06/2011 CONNIE MANNING MD V03.82 Need For Vaccination Pneumococcal 10/06/2011 CONNIE MANNING MD V04.81 Vaccines Prophylactic Need Against Influenza 10/06/2011 TEODORO LOPEZ DO 250.60 DIABETES WITH DIABETIC NEUROPATHY 10/06/2011 LOPEZ DO, TEODORO K V03.82 Need For Vaccination Pneumococcal 10/06/2011 LOPEZ DO, TEODORO K V04.81 Vaccines Prophylactic Need Against Influenza 10/06/2011 JESSICA DO TEODORO K 250.60 DIABETES WITH DIABETIC NEUROPATHY 10/06/2011 LOPEZ DO, TEODORO K V03.82 Need For Vaccination Pneumococcal 10/06/2011 LOPEZ DO, TEODORO K V04.81 Vaccines Prophylactic Need Against Influenza 10/06/2011 [facility] PR[facility] MARKETING SPECIALISTMIGUEL 250.60 DIABETES WITH DIABETIC NEUROPATHY 10/06/2011 HELW[facility] PRODUCT MARKETING SPECIALISTMIGUEL E V03.82 Need For Vaccination Pneumococcal 10/06/2011 [facility] PRODUCT MARKETING SPECIALISTLATOYAE E V04.81 Vaccines Prophylactic Need Against Influenza 10/06/2011 JESSICA DOTEODORO K 250.60 DIABETES WITH DIABETIC NEUROPATHY 10/06/2011 JESSICA DO TEODORO K V03.82 Need For Vaccination Pneumococcal 10/06/2011 LOPEZ DO, TEODORO K V04.81 Vaccines Prophylactic Need Against Influenza 10/06/2011 [facility] GRUBER APRN 250.60 DIABETES WITH DIABETIC NEUROPATHY 10/06/2011 [facility] PRODUCT MARKETING SPECIALISTMIGUEL Akhtar V03.82 Need For Vaccination Pneumococcal 10/06/2011 [facility] PRODUCT MARKETING SPECIALISTLATOYA AkhtarE E V04.81 Vaccines Prophylactic Need Against Influenza 10/06/2011 JESSICA DOVIJAYA K 250.60 DIABETES WITH DIABETIC NEUROPATHY 10/06/2011 JESSICA DO TEODORO K V03.82 Need For Vaccination Pneumococcal 10/06/2011 JESSICA DO TEODORO K V04.81 Vaccines Prophylactic Need Against Influenza 10/06/2011 JESSICA DO TEODORO K 250.60 DIABETES WITH DIABETIC NEUROPATHY 10/06/2011 JESSICA DO, TEODORO K V03.82 Need For Vaccination Pneumococcal 10/06/2011 LOPEZ DO, TEODORO K V04.81 Vaccines Prophylactic Need Against Influenza 10/06/2011 LOPEZ DO TEODORO K 250.60 DIABETES WITH DIABETIC NEUROPATHY 10/06/2011 LOPEZ DO TEODORO K V03.82 Need For Vaccination Pneumococcal 10/06/2011 LOPEZ DO TEODORO K V04.81 Vaccines Prophylactic Need Against Influenza 10/06/2011 LOPEZ DO TEODORO K 250.60 DIABETES WITH DIABETIC NEUROPATHY 10/06/2011 JESSICA DO TEODORO K V03.82 Need For Vaccination Pneumococcal 10/06/2011 LOPEZ DO, TEODORO K V04.81 Vaccines Prophylactic Need Against Influenza 10/06/2011 LOPEZ DOTEODORO K 250.60 DIABETES WITH DIABETIC NEUROPATHY 10/06/2011 JESSICA DO, TEODORO K V03.82 Need For Vaccination Pneumococcal 10/06/2011 LOPEZ DO, TEODORO K V04.81 Vaccines Prophylactic Need Against Influenza 10/06/2011 LOPEZ DO, TEODORO K 250.60 DIABETES WITH DIABETIC NEUROPATHY 10/06/2011 LOPEZ DO, TEODORO K V03.82 Need For Vaccination Pneumococcal 10/06/2011 LOPEZ DO, TEODORO K V04.81 Vaccines Prophylactic Need Against Influenza 10/06/2011 LOPEZ DO, TEODORO K 250.60 DIABETES WITH DIABETIC NEUROPATHY 10/06/2011 LOPEZ DO, TEODORO K V03.82 Need For Vaccination Pneumococcal 10/06/2011 LOPEZ DO, TEODORO K V04.81 Vaccines Prophylactic Need Against Influenza 10/06/2011 LOPEZ DOTEODORO 250.60 DIABETES WITH DIABETIC NEUROPATHY 10/06/2011 JESSICA DO, TEODORO K V03.82 Need For Vaccination Pneumococcal 10/06/2011 JESSICA DO, TEODORO K V04.81 Vaccines Prophylactic Need Against Influenza 10/06/2011 MIRLANDE PATIÑO APRN 250.60 DIABETES WITH DIABETIC NEUROPATHY 10/06/2011 MIRLANDE PATIÑO APRN V03.82 Need For Vaccination Pneumococcal 10/06/2011 MIRLANDE PATIÑO APRN V04.81 Vaccines Prophylactic Need Against Influenza 10/06/2011 JESSICA DOTEODORO 250.60 DIABETES WITH DIABETIC NEUROPATHY 10/06/2011 JESSICA DOVIJAYA K V03.82 Need For Vaccination Pneumococcal 10/06/2011 JESSICA DOVIJAYA K V04.81 Vaccines Prophylactic Need Against Influenza 10/06/2011 JESSICA DOTEODORO 250.60 DIABETES WITH DIABETIC NEUROPATHY 10/06/2011 JESSICA DO, TEODORO K V03.82 Need For Vaccination Pneumococcal 10/06/2011 JESSICA DOVIJAYA K V04.81 Vaccines Prophylactic Need Against Influenza 10/06/2011 JESSICA DOTEODORO 250.60 DIABETES WITH DIABETIC NEUROPATHY 10/06/2011 JESSICA DO TEODORO K V03.82 Need For Vaccination Pneumococcal 10/06/2011 JESSICA DOVIJAYA K V04.81 Vaccines Prophylactic Need Against Influenza 10/06/2011 JESSICA DOTEODORO K 250.60 DIABETES WITH DIABETIC NEUROPATHY 10/06/2011 LOPEZ DO, TEODORO K V03.82 Need For Vaccination Pneumococcal 10/06/2011 LPOEZ DO, TEODORO K V04.81 Vaccines Prophylactic Need Against Influenza 10/06/2011 LOPEZ DO, TEODORO K 250.60 DIABETES WITH DIABETIC NEUROPATHY 10/06/2011 LOPEZ DO, TEODORO K V03.82 Need For Vaccination Pneumococcal 10/06/2011 LOPEZ DO, TEODORO K V04.81 Vaccines Prophylactic Need Against Influenza 10/06/2011 LOPEZ DO, TEODORO K 250.60 DIABETES WITH DIABETIC NEUROPATHY 10/06/2011 LOPEZ DO, TEODORO K V03.82 Need For Vaccination Pneumococcal 10/06/2011 LOPEZ DO, TEODORO K V04.81 Vaccines Prophylactic Need Against Influenza 10/06/2011 [employer]IGUEL Akhtar 250.60 DIABETES WITH DIABETIC NEUROPATHY 10/06/2011 [employer] MARK[employer] SPECIALISTMIGUEL Akhtar E V03.82 Need For Vaccination Pneumococcal 10/06/2011 HELLW[employer]ODUCT MARKETING SPECIALISTLATOYAE E V04.81 Vaccines Prophylactic Need Against Influenza 10/06/2011 LOPEZ DO, TEODORO K 250.60 DIABETES WITH DIABETIC NEUROPATHY 10/06/2011 LOPEZ DO, TEODORO K V03.82 Need For Vaccination Pneumococcal 10/06/2011 LOPEZ DO, TEODORO K V04.81 Vaccines Prophylactic Need Against Influenza 10/06/2011 LOPEZ DO, TEODORO K 250.60 DIABETES WITH DIABETIC NEUROPATHY 10/06/2011 LOPEZ DO, TEODORO K V03.82 Need For Vaccination Pneumococcal 10/06/2011 LOPEZ DO, TEODORO K V04.81 Vaccines Prophylactic Need Against Influenza 10/06/2011 LOPEZ DO, TEODORO K 250.60 DIABETES WITH DIABETIC NEUROPATHY 10/06/2011 LOPEZ DO, TEODORO K V03.82 Need For Vaccination Pneumococcal 10/06/2011 LOPEZ DO, TEODORO K V04.81 Vaccines Prophylactic Need Against Influenza 10/06/2011 [employer] MARKET[employer] SPECIALISTMIGUEL 250.60 DIABETES WITH DIABETIC NEUROPATHY 10/06/2011 [employer] MARK[employer] SPECIALISTMIGUEL Akhtar V03.82 Need For Vaccination Pneumococcal 10/06/2011 [employer] MARK[employer] SPECIALISTMIGUEL Akhtar V04.81 Vaccines Prophylactic Need Against Influenza 10/06/2011 [employer] MARKET[employer] SPECIALISTMIGUEL Akhtar 250.60 DIABETES WITH DIABETIC NEUROPATHY 10/06/2011 [employer] MARKET[employer] SPECIALISTMIGUEL Akhtar E V03.82 Need For Vaccination Pneumococcal 10/06/2011 [facility] E V04.81 Vaccines Prophylactic Need Against Influenza 10/06/2011 MAKSIMMIGUEL GRUBER APRN 250.60 DIABETES WITH DIABETIC NEUROPATHY 10/06/2011 [facility] E V03.82 Need For Vaccination Pneumococcal 10/06/2011 [facility] E V04.81 Vaccines Prophylactic Need Against Influenza 10/06/2011 PATIÑO MIRLANDE PECK 250.60 DIABETES WITH DIABETIC NEUROPATHY 10/06/2011 PATIÑO MIRLANDE PECK V03.82 Need For Vaccination Pneumococcal 10/06/2011 PATIÑO MIRLANDE PECK R V04.81 Vaccines Prophylactic Need Against Influenza 10/06/2011 FANNY RODRIGUES MD 250.60 DIABETES WITH DIABETIC NEUROPATHY 10/06/2011 FANNY RODRIGUES MD V03.82 Need For Vaccination Pneumococcal 10/06/2011 FANNY RODRIGUES MD V04.81 Vaccines Prophylactic Need Against Influenza 10/06/2011 PATIÑO MIRLANDE PECK 250.60 DIABETES WITH DIABETIC NEUROPATHY 10/06/2011 PATIÑO MIRLANDE PECK R V03.82 Need For Vaccination Pneumococcal 10/06/2011 PATIÑO MIRLANDE PECK R V04.81 Vaccines Prophylactic Need Against Influenza 10/06/2011 MAKSIMMIGUEL GRUBER APRN 250.60 DIABETES WITH DIABETIC NEUROPATHY 10/06/2011 MAKSIMMIGUEL GRUBER APRN E V03.82 Need For Vaccination Pneumococcal 10/06[facility] E V04.81 Vaccines Prophylactic Need Against Influenza 10/06/2011 VIJAY LOPEZ DOA K 250.60 DIABETES WITH DIABETIC NEUROPATHY 10/06/2011 TEODORO LOPEZ DO K V03.82 Need For Vaccination Pneumococcal 10/06/2011 VIJAY LOPEZ DOA K V04.81 Vaccines Prophylactic Need Against Influenza 10/06/2011 MIRLANDE PATIÑO APRN 250.60 DIABETES WITH DIABETIC NEUROPATHY 10/06/2011 PATIÑO MIRLANDE PECK V03.82 Need For Vaccination Pneumococcal 10/06/2011 PATIÑO MIRLANDE PECK R V04.81 Vaccines Prophylactic Need Against Influenza 10/06/2011 PATIÑO MIRLANDE PECK 250.60 DIABETES WITH DIABETIC NEUROPATHY 10/06/2011 PATIÑO MIRLANDE PECK V03.82 Need For Vaccination Pneumococcal 10/06/2011 MIRLANDE PATIÑO APRN V04.81 Vaccines Prophylactic Need Against Influenza 10/06/2011 LOPEZ DO, TEODORO Starr 250.60 DIABETES WITH DIABETIC NEUROPATHY 10/06/2011 LPOEZ DO, TEODORO K V03.82 Need For Vaccination Pneumococcal 10/06/2011 LOPEZ DO, TEODORO K V04.81 Vaccines Prophylactic Need Against Influenza 10/06/2011 LOPEZ DOTEODORO K 250.60 DIABETES WITH DIABETIC NEUROPATHY 10/06/2011 LOPEZ DO, TEODORO K V03.82 Need For Vaccination Pneumococcal 10/06/2011 LOPEZ DO, TEODORO K V04.81 Vaccines Prophylactic Need Against Influenza 10/06/2011 LOPEZ DO, TEODORO K 250.60 DIABETES WITH DIABETIC NEUROPATHY 10/06/2011 LOPEZ DO, TEODORO K V03.82 Need For Vaccination Pneumococcal 10/06/2011 LOPEZ DO, TEODORO K V04.81 Vaccines Prophylactic Need Against Influenza 10/06/2011 LOPEZ DO, TEODORO K 250.60 DIABETES WITH DIABETIC NEUROPATHY 10/06/2011 LOPEZ DO, TEODORO K V03.82 Need For Vaccination Pneumococcal 10/06/2011 LOPEZ DO, TEODORO K V04.81 Vaccines Prophylactic Need Against Influenza 10/06/2011 LOPEZ DO, TEODORO K 250.60 DIABETES WITH DIABETIC NEUROPATHY 10/06/2011 LOPEZ DO, TEODORO K V03.82 Need For Vaccination Pneumococcal 10/06/2011 LOPEZ DO, TEODORO K V04.81 Vaccines Prophylactic Need Against Influenza 10/06/2011 LOPEZ DO, TEODORO K 250.60 DIABETES WITH DIABETIC NEUROPATHY 10/06/2011 LOPEZ DO, TEODORO K V03.82 NEED FOR VACCINATION PNEUMOCOCCAL 10/06/2011 LOPEZ DO, TEODORO K V04.81 VACCINES PROPHYLACTIC NEED AGAINST INFLUENZA 10/06/2011 HELWIG PRODUCT MARKETING SPECIALISTMIGUEL 250.60 DIABETES WITH DIABETIC NEUROPATHY 10/06/2011 HELWIG PRODUCT MARKETING SPECIALISTMIGUEL V03.82 NEED FOR VACCINATION PNEUMOCOCCAL 10/06/2011 HELWIG PRODUCT MARKETING SPECIALISTMIGUEL V04.81 VACCINES PROPHYLACTIC NEED AGAINST INFLUENZA 10/06/2011 LOPEZ DOTEODORO K 250.60 DIABETES WITH DIABETIC NEUROPATHY 10/06/2011 LOPEZ DO, TEODORO K V03.82 NEED FOR VACCINATION PNEUMOCOCCAL 10/06/2011 LOPEZ DO, TEODORO K V04.81 VACCINES PROPHYLACTIC NEED AGAINST INFLUENZA 10/06/2011 [facility] MIGUEL PECK 250.60 DIABETES WITH DIABETIC NEUROPATHY 10/06/2011 [facility] MIGUEL PECK V03.82 NEED FOR VACCINATION PNEUMOCOCCAL 10/06/2011 [facility] MIGUEL PECK E V04.81 VACCINES PROPHYLACTIC NEED AGAINST INFLUENZA 10/06/2011 [facility] MIGUEL PECK 250.60 DIABETES WITH DIABETIC NEUROPATHY 10/06/2011 [facility] MIGUEL PECK V03.82 NEED FOR VACCINATION PNEUMOCOCCAL 10/06/2011 [facility] MIGUEL PECK E V04.81 VACCINES PROPHYLACTIC NEED AGAINST INFLUENZA 10/06/2011 TEODORO LOPEZ DO K 250.60 DIABETES WITH DIABETIC NEUROPATHY 10/06/2011 TEODORO LOPEZ DO K V03.82 NEED FOR VACCINATION PNEUMOCOCCAL 10/06/2011 TEODORO LOPEZ DO K V04.81 VACCINES PROPHYLACTIC NEED AGAINST INFLUENZA 10/06/2011 [facility] MIGUEL PECK 250.60 DIABETES WITH DIABETIC NEUROPATHY 10/06/2011 [facility] MIGUEL PECK V03.82 NEED FOR VACCINATION PNEUMOCOCCAL 10/06/2011 [facility] MIGUEL PECK V04.81 VACCINES PROPHYLACTIC NEED AGAINST INFLUENZA 10/06/2011 TEODORO LOPEZ DO K 250.60 DIABETES WITH DIABETIC NEUROPATHY 10/06/2011 VIJAY LOPEZ DOA K V03.82 NEED FOR VACCINATION PNEUMOCOCCAL 10/06/2011 VIJAY LOPEZ DOA K V04.81 VACCINES PROPHYLACTIC NEED AGAINST INFLUENZA 10/30/2011 Ot 041.02 10/30/2011 Ot 041.89 10/30/2011 Ot 250.00 10/30/2011 Ot 285.9 10/30/2011 Ot 305.1 10/30/2011 Ot 305.20 10/30/2011 Ot 401.9 10/30/2011 Ot 440.24 10/30/2011 Ot 681.10 11/16/2011 Ot 250.72 11/16/2011 Ot 300.00 11/16/2011 Ot 305.00 11/16/2011 Ot 305.1 11/16/2011 Ot 305.20 11/16/2011 Ot 311 11/16/2011 Ot 401.9 11/16/2011 Ot 440.24 11/16/2011 Ot 440.4 11/16/2011 Ot 564.00 11/16/2011 Ot V58.67 11/25/2011 LILIA MOSER, FANNY V58.31 WOUND DRESSING 11/25/2011 LILIA MOSER, FANNY V58.31 WOUND DRESSING 11/25/2011 V58.31 WOUND DRESSING 11/25/2011 V58.31 WOUND DRESSING 11/25/2011 V58.31 WOUND DRESSING 11/25/2011 LILIA MOSER, FANNY V58.31 WOUND DRESSING 11/25/2011 V58.31 WOUND DRESSING 11/25/2011 V58.31 WOUND DRESSING 11/25/2011 LILIA MOSER, FANNY V58.31 WOUND DRESSING 11/25/2011 LOPEZ DO, TEODORO K V58.31 WOUND DRESSING 11/25/2011 LOPEZ DO, TEODORO K V58.31 WOUND DRESSING 11/25/2011 LOPEZ DO, TEODORO K V58.31 WOUND DRESSING 11/25/2011 LOPEZ DO, TEODORO K V58.31 WOUND DRESSING 11/25/2011 LOPEZ DO, TEODORO K V58.31 WOUND DRESSING 11/25/2011 MIGUEL ARVIZU APRN E V58.31 WOUND DRESSING 11/25/2011 CONNIE MANNING MD V58.31 WOUND DRESSING 11/25/2011 LOPEZ DO, TEODORO K V58.31 WOUND DRESSING 11/25/2011 LOPEZ DO, TEODORO K V58.31 WOUND DRESSING 11/25/2011 MIGUEL ARVIZU APRN E V58.31 WOUND DRESSING 11/25/2011 LOPEZ DO, TEODORO K V58.31 WOUND DRESSING 11/25/2011 MIGUEL ARVIZU APRN E V58.31 WOUND DRESSING 11/25/2011 LOPEZ DO, TEODORO K V58.31 WOUND DRESSING 11/25/2011 LOPEZ DO, TEODORO K V58.31 WOUND DRESSING 11/25/2011 LOPEZ DO, TEODORO K V58.31 WOUND DRESSING 11/25/2011 LOPEZ DO, TEODORO K V58.31 WOUND DRESSING 11/25/2011 LOPEZ DO, TEODORO K V58.31 WOUND DRESSING 11/25/2011 LOPEZ DO, TEODORO K V58.31 WOUND DRESSING 11/25/2011 LOPEZ DO, TEODORO K V58.31 WOUND DRESSING 11/25/2011 LOPEZ DO, TEODORO K V58.31 WOUND DRESSING 11/25/2011 MIRLANDE PATIÑO APRN V58.31 WOUND DRESSING 11/25/2011 LOPEZ DO, TEODORO K V58.31 WOUND DRESSING 11/25/2011 LOPEZ DO, TEODORO K V58.31 WOUND DRESSING 11/25/2011 LOPEZ DO, TEODORO K V58.31 WOUND DRESSING 11/25/2011 LOPEZ DO, TEODORO K V58.31 WOUND DRESSING 11/25/2011 LOPEZ DO, TEODORO K V58.31 WOUND DRESSING 11/25/2011 LOPEZ DO, TEODORO K V58.31 WOUND DRESSING 11/25/2011 VIJAY ARVIZU APRNSIE E V58.31 WOUND DRESSING 11/25/2011 LOPEZ DO, TEODORO K V58.31 WOUND DRESSING 11/25/2011 LOPEZ DO, TEODORO K V58.31 WOUND DRESSING 11/25/2011 LOPEZ DO, TEODORO K V58.31 WOUND DRESSING 11/25/2011 LATOYA ARVIZU APRNE E V58.31 WOUND DRESSING 11/25/2011 MIGUEL ARVIZU APRN E V58.31 WOUND DRESSING 11/25/2011 MIGUEL ARVIZU APRN E V58.31 WOUND DRESSING 11/25/2011 MIRLANDE PATIÑO APRN R V58.31 WOUND DRESSING 11/25/2011 FANNY RODRIGUES MD V58.31 WOUND DRESSING 11/25/2011 MIRLANDE PATIÑO APRN R V58.31 WOUND DRESSING 11/25/2011 MIGUEL ARVIZU APRN E V58.31 WOUND DRESSING 11/25/2011 LOPEZ DO, TEODORO K V58.31 WOUND DRESSING 11/25/2011 MIRLANDE PATIÑO APRN R V58.31 WOUND DRESSING 11/25/2011 KAYLYN PECK MIRLANDE R V58.31 WOUND DRESSING 11/25/2011 LOPEZ DO, TEODORO K V58.31 WOUND DRESSING 11/25/2011 LOPEZ DO, TEODORO K V58.31 WOUND DRESSING 11/25/2011 LOPEZ DO, TEODORO K V58.31 WOUND DRESSING 11/25/2011 LOPEZ DO, TEODORO K V58.31 WOUND DRESSING 11/25/2011 LOPEZ DO, TEODORO K V58.31 WOUND DRESSING 11/25/2011 LOPEZ DO, TEODORO K V58.31 WOUND DRESSING 11/25/2011 VIJAY ARVIZU APRNSIE E V58.31 WOUND DRESSING 11/25/2011 LOPEZ DO, TEODORO K V58.31 WOUND DRESSING 11/25/2011 MIGUEL ARVIZU APRN E V58.31 WOUND DRESSING 11/25/2011 MIGUEL ARVIZU APRN E V58.31 WOUND DRESSING 11/25/2011 TEODORO LOPEZ DO K V58.31 WOUND DRESSING 11/25/2011 MIGUEL ARVIZU APRN E V58.31 WOUND DRESSING 11/25/2011 TEODORO LOPEZ DO K V58.31 WOUND DRESSING 02/24/2012 FANNY RODRIGUES MD 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 02/24/2012 FANNY RODRIGUES MD 706.2 SEBACEOUS CYST 02/24/2012 FANNY RODRIGUES MD 997.62 CHRONIC INFECTION OF AMPUTATION STUMP 02/24/2012 FANNY RODRIGUES MD 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 02/24/2012 FANNY RODRIGUES MD 706.2 SEBACEOUS CYST 02/24/2012 FANNY RODRIGUES MD 997.62 CHRONIC INFECTION OF AMPUTATION STUMP 02/24/2012 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 02/24/2012 706.2 SEBACEOUS CYST 02/24/2012 997.62 CHRONIC INFECTION OF AMPUTATION STUMP 02/24/2012 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 02/24/2012 706.2 SEBACEOUS CYST 02/24/2012 997.62 CHRONIC INFECTION OF AMPUTATION STUMP 02/24/2012 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 02/24/2012 706.2 SEBACEOUS CYST 02/24/2012 997.62 CHRONIC INFECTION OF AMPUTATION STUMP 02/24/2012 FANNY RODRIGUES MD 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 02/24/2012 FANNY RODRIGUES MD 706.2 SEBACEOUS CYST 02/24/2012 FANNY RODRIGUES MD 997.62 CHRONIC INFECTION OF AMPUTATION STUMP 02/24/2012 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 02/24/2012 706.2 SEBACEOUS CYST 02/24/2012 997.62 CHRONIC INFECTION OF AMPUTATION STUMP 02/24/2012 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 02/24/2012 706.2 SEBACEOUS CYST 02/24/2012 997.62 CHRONIC INFECTION OF AMPUTATION STUMP 02/24/2012 FANNY RODRIGUES MD 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 02/24/2012 FANNY RODRIGUES MD 706.2 SEBACEOUS CYST 02/24/2012 FANNY RODRIGUES MD 997.62 CHRONIC INFECTION OF AMPUTATION STUMP 02/24/2012 LOPEZ DO, TEODORO K 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 02/24/2012 LOPEZ DO, TEODORO K 706.2 SEBACEOUS CYST 02/24/2012 LOPEZ DO, TEODORO K 997.62 CHRONIC INFECTION OF AMPUTATION STUMP 02/24/2012 LOPEZ DO, TEODORO K 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 02/24/2012 LOPEZ DO, TEODORO K 706.2 SEBACEOUS CYST 02/24/2012 LOPEZ DO, TEODORO K 997.62 CHRONIC INFECTION OF AMPUTATION STUMP 02/24/2012 LOPEZ DO, TEODORO K 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 02/24/2012 LOPEZ DO, TEODORO K 706.2 SEBACEOUS CYST 02/24/2012 LOPEZ DO, TEODORO K 997.62 CHRONIC INFECTION OF AMPUTATION STUMP 02/24/2012 LOPEZ DO, TEODORO K 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 02/24/2012 LOPEZ DO, TEODORO K 706.2 SEBACEOUS CYST 02/24/2012 LOPEZ DO, TEODORO K 997.62 CHRONIC INFECTION OF AMPUTATION STUMP 02/24/2012 LOPEZ DO, TEODORO K 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 02/24/2012 LOPEZ DO, TEODORO K 706.2 SEBACEOUS CYST 02/24/2012 LOPEZ DO, TEODORO K 997.62 CHRONIC INFECTION OF AMPUTATION STUMP 02/24/2012 VIJAY ARVIZU APRNSIE E 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 02/24/2012 VIJAY ARVIZU APRNSIE E 706.2 SEBACEOUS CYST 02/24/2012 VIJAY ARVIZU APRNSIE E 997.62 CHRONIC INFECTION OF AMPUTATION STUMP 02/24/2012 CONNIE MANNING MD 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 02/24/2012 CONNIE MANNING MD 706.2 SEBACEOUS CYST 02/24/2012 CONNIE MANNING MD N 997.62 CHRONIC INFECTION OF AMPUTATION STUMP 02/24/2012 LOPEZ DO, TEODORO K 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 02/24/2012 LOPEZ DO, TEODORO K 706.2 SEBACEOUS CYST 02/24/2012 LOPEZ DO, TEODORO K 997.62 CHRONIC INFECTION OF AMPUTATION STUMP 02/24/2012 LOPEZ DO, TEODORO K 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 02/24/2012 LOPEZ DO, TEODORO K 706.2 SEBACEOUS CYST 02/24/2012 LOPEZ DO, TEODORO K 997.62 CHRONIC INFECTION OF AMPUTATION STUMP 02/24/2012 MAKSIMYASMANI PR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 E 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 02/24/2012 MAKSIMVIJAY GRUBER APRNSIE E 706.2 SEBACEOUS CYST 02/24/2012 MAKSIMYASMANI PRODUCT MARKETING SPECIALIST, MIGUEL E 997.62 CHRONIC INFECTION OF AMPUTATION STUMP 02/24/2012 LOPEZ DO, TEODORO K 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 02/24/2012 LOPEZ DO, TEODORO K 706.2 SEBACEOUS CYST 02/24/2012 LOPEZ DO, TEODORO K 997.62 CHRONIC INFECTION OF AMPUTATION STUMP 02/24/2012 MAKSIMYASMANI PECK MIGUEL E 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 02/24/2012 [facility] APRNE E 706.2 SEBACEOUS CYST 02/24/2012 [facility] APRNSIE E 997.62 CHRONIC INFECTION OF AMPUTATION STUMP 02/24/2012 LOPEZ DO, TEODORO K 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 02/24/2012 LOPEZ DO, TEODORO K 706.2 SEBACEOUS CYST 02/24/2012 LOPEZ DO, TEODORO K 997.62 CHRONIC INFECTION OF AMPUTATION STUMP 02/24/2012 LOPEZ DO, TEODORO K 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 02/24/2012 LOPEZ DO, TEODORO K 706.2 SEBACEOUS CYST 02/24/2012 LOPEZ DO, TEODORO K 997.62 CHRONIC INFECTION OF AMPUTATION STUMP 02/24/2012 LOPEZ DO, TEODORO K 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 02/24/2012 LOPEZ DO, TEODORO K 706.2 SEBACEOUS CYST 02/24/2012 LOPEZ DO, TEODORO K 997.62 CHRONIC INFECTION OF AMPUTATION STUMP 02/24/2012 LOPEZ DO, TEODORO K 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 02/24/2012 LOPEZ DO, TEODORO K 706.2 SEBACEOUS CYST 02/24/2012 LOPEZ DO, TEODORO K 997.62 CHRONIC INFECTION OF AMPUTATION STUMP 02/24/2012 LOPEZ DO, TEODORO K 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 02/24/2012 LOPEZ DO, TEODORO K 706.2 SEBACEOUS CYST 02/24/2012 LOPEZ DO, TEODORO K 997.62 CHRONIC INFECTION OF AMPUTATION STUMP 02/24/2012 LOPEZ DO, TEODORO K 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 02/24/2012 LOPEZ DO, TEODORO K 706.2 SEBACEOUS CYST 02/24/2012 LOPEZ DO, TEODORO K 997.62 CHRONIC INFECTION OF AMPUTATION STUMP 02/24/2012 LOPEZ DO, TEODORO K 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 02/24/2012 LOPEZ DO, TEODORO K 706.2 SEBACEOUS CYST 02/24/2012 LOPEZ DO, TEODORO K 997.62 CHRONIC INFECTION OF AMPUTATION STUMP 02/24/2012 LOPEZ DO, TEODORO K 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 02/24/2012 LOPEZ DO, TEODORO K 706.2 SEBACEOUS CYST 02/24/2012 LOPEZ DO, TEODORO K 997.62 CHRONIC INFECTION OF AMPUTATION STUMP 02/24/2012 PATIÑO MIRLANDE PECK R 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 02/24/2012 PATIÑOMIRLANDE GUPTA APRN 706.2 SEBACEOUS CYST 02/24/2012 PATIÑO PRODUCT MARKETING SPECIALISTMIRLANDE Akhtar 997.62 CHRONIC INFECTION OF AMPUTATION STUMP 02/24/2012 LOPEZ DO, TEODORO K 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 02/24/2012 LOPEZ DO, TEODORO K 706.2 SEBACEOUS CYST 02/24/2012 LOPEZ DO, TEODORO K 997.62 CHRONIC INFECTION OF AMPUTATION STUMP 02/24/2012 LOPEZ DO, TEODORO K 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 02/24/2012 LOPEZ DO, TEODORO K 706.2 SEBACEOUS CYST 02/24/2012 LOPEZ DO, TEODORO K 997.62 CHRONIC INFECTION OF AMPUTATION STUMP 02/24/2012 LOPEZ DO, TEODORO K 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 02/24/2012 LOPEZ DO, TEODORO K 706.2 SEBACEOUS CYST 02/24/2012 LOPEZ DO, TEODORO K 997.62 CHRONIC INFECTION OF AMPUTATION STUMP 02/24/2012 LOPEZ DO, TEODORO K 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 02/24/2012 LOPEZ DO, TEODORO K 706.2 SEBACEOUS CYST 02/24/2012 LOPEZ DO, TEODORO K 997.62 CHRONIC INFECTION OF AMPUTATION STUMP 02/24/2012 LOPEZ DO, TEODORO K 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 02/24/2012 LOPEZ DO, TEODORO K 706.2 SEBACEOUS CYST 02/24/2012 LOPEZ DO, TEODORO K 997.62 CHRONIC INFECTION OF AMPUTATION STUMP 02/24/2012 LOPEZ DO, TEODORO K 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 02/24/2012 LOPEZ DO, TEODORO K 706.2 SEBACEOUS CYST 02/24/2012 LOPEZ DO, TEODORO K 997.62 CHRONIC INFECTION OF AMPUTATION STUMP 02/24/2012 VIJAY ARVIZU APRNSIE E 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 02/24/2012 VIJAY ARVIZU APRNSIE E 706.2 SEBACEOUS CYST 02/24/2012 VIJAY ARVIZU APRNSIE E 997.62 CHRONIC INFECTION OF AMPUTATION STUMP 02/24/2012 LOPEZ DO, TEODORO K 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 02/24/2012 LOPEZ DO, TEODORO K 706.2 SEBACEOUS CYST 02/24/2012 OLPEZ DO, TEODORO K 997.62 CHRONIC INFECTION OF AMPUTATION STUMP 02/24/2012 LOPEZ DO, TEODORO K 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 02/24/2012 LOPEZ DO, TEODORO K 706.2 SEBACEOUS CYST 02/24/2012 LOPEZ DO, TEODORO K 997.62 CHRONIC INFECTION OF AMPUTATION STUMP 02/24/2012 LOPEZ DO, TEODORO K 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 02/24/2012 LOPEZ DO, TEODORO K 706.2 SEBACEOUS CYST 02/24/2012 LOPEZ DO, TEODORO K 997.62 CHRONIC INFECTION OF AMPUTATION STUMP 02/24/2012 VIJAY ARVIZU APRNSIE E 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 02/24/2012 MAKSIMVIJAY GRUBER APRNSIE E 706.2 SEBACEOUS CYST 02/24/2012 [facility] PECK MIGUEL E 997.62 CHRONIC INFECTION OF AMPUTATION STUMP 02/24/2012 VIJAY ARVIZU APRNSIE E 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 02/24/2012 VIJAY ARVIZU APRNSIE E 706.2 SEBACEOUS CYST 02/24/2012 MAKSIMVIJAY GRUBER APRNSIE E 997.62 CHRONIC INFECTION OF AMPUTATION STUMP 02/24/2012 VIJAY ARVIZU APRNSIE E 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 02/24/2012 VIJAY ARVIZU APRNSIE E 706.2 SEBACEOUS CYST 02/24/2012 VIJAY ARVIZU APRNSIE E 997.62 CHRONIC INFECTION OF AMPUTATION STUMP 02/24/2012 MIRLANDE PATIÑO APRN 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 02/24/2012 MIRLANDE PATIÑO APRN 706.2 SEBACEOUS CYST 02/24/2012 MIRLANDE PATIÑO APRN 997.62 CHRONIC INFECTION OF AMPUTATION STUMP 02/24/2012 FANNY RODRIGUES MD 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 02/24/2012 FANNY RODRIGUES MD 706.2 SEBACEOUS CYST 02/24/2012 FANNY RODRIGUES MD 997.62 CHRONIC INFECTION OF AMPUTATION STUMP 02/24/2012 MIRLANDE PATIÑO APRN R 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 02/24/2012 MIRLANDE PATIÑO APRN 706.2 SEBACEOUS CYST 02/24/2012 MIRLANDE PATIÑO APRN 997.62 CHRONIC INFECTION OF AMPUTATION STUMP 02/24/2012 MIGUEL ARVIZU APRN E 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 02/24/2012 MIGUEL ARVIZU APRN E 706.2 SEBACEOUS CYST 02/24/2012 MIGUEL ARVIZU APRN 997.62 CHRONIC INFECTION OF AMPUTATION STUMP 02/24/2012 LOPEZ DO TEODORO K 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 02/24/2012 LOPEZ DO TEODORO K 706.2 SEBACEOUS CYST 02/24/2012 TEODORO LOPEZ DO K 997.62 CHRONIC INFECTION OF AMPUTATION STUMP 02/24/2012 MIRLANDE PATIÑO APRN R 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 02/24/2012 MIRLANDE PATIÑO APRN 706.2 SEBACEOUS CYST 02/24/2012 MIRLANDE PATIÑO APRN 997.62 CHRONIC INFECTION OF AMPUTATION STUMP 02/24/2012 MIRLANDE PATIÑO APRN 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 02/24/2012 MIRLANDE PATIÑO APRN 706.2 SEBACEOUS CYST 02/24/2012 MIRLANDE PATIÑO APRN 997.62 CHRONIC INFECTION OF AMPUTATION STUMP 02/24/2012 LOPEZ DO, TEODORO K 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 02/24/2012 LOPEZ DO, TEODORO K 706.2 SEBACEOUS CYST 02/24/2012 LOPEZ DO, TEODORO K 997.62 CHRONIC INFECTION OF AMPUTATION STUMP 02/24/2012 LOPEZ DO, TEODORO K 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 02/24/2012 LOPEZ DO, TEODORO K 706.2 SEBACEOUS CYST 02/24/2012 LOPEZ DO, TEODORO K 997.62 CHRONIC INFECTION OF AMPUTATION STUMP 02/24/2012 LOPEZ DO, TEODORO K 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 02/24/2012 LOPEZ DO, TEODORO K 706.2 SEBACEOUS CYST 02/24/2012 LOPEZ DO, TEODORO K 997.62 CHRONIC INFECTION OF AMPUTATION STUMP 02/24/2012 LOPEZ DO, TEODORO K 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 02/24/2012 LOPEZ DO, TEODORO K 706.2 SEBACEOUS CYST 02/24/2012 LOPEZ DO, TEODORO K 997.62 CHRONIC INFECTION OF AMPUTATION STUMP 02/24/2012 LOPEZ DO, TEODORO K 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 02/24/2012 LOPEZ DO, TEODORO K 706.2 SEBACEOUS CYST 02/24/2012 LOPEZ DO, TEODORO K 997.62 CHRONIC INFECTION OF AMPUTATION STUMP 02/24/2012 LOPEZ DO, TEODORO K 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 02/24/2012 LOPEZ DO, TEODORO K 706.2 SEBACEOUS CYST 02/24/2012 LOPEZ DO, TEODORO K 997.62 CHRONIC INFECTION OF AMPUTATION STUMP 02/24/2012 [facility] 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 E 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 02/24/2012 [facility] PECK MIGUEL E 706.2 SEBACEOUS CYST 02/24/2012 [facility] [employer]ODUCT MARKET[employer] SPECIALIST, MIGUEL E 997.62 CHRONIC INFECTION OF AMPUTATION STUMP 02/24/2012 LOPEZ DO, TEODORO K 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 02/24/2012 LOPEZ DO, TEODORO K 706.2 SEBACEOUS CYST 02/24/2012 LOPEZ DO, TEODORO K 997.62 CHRONIC INFECTION OF AMPUTATION STUMP 02/24/2012 [facility] 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 E 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 02/24/2012 [facility] 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 E 706.2 SEBACEOUS CYST 02/24/2012 DAMEONWIG PR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 E 997.62 CHRONIC INFECTION OF AMPUTATION STUMP 02/24/2012 HELLWIG PRODUCT MARKETING SPECIALIST, MIGUEL E 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 02/24/2012 DAMEONWIG PRODUCT MARKETING SPECIALIST, MIGUEL E 706.2 SEBACEOUS CYST 02/24/2012 MAKSIMLWIG PRODUCT MARKETING SPECIALIST, MIGUEL E 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.62 CHRONIC INFECTION OF AMPUTATION STUMP 02/24/2012 LOPEZ DO, TOEDORO K 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 02/24/2012 LOPEZ DO, TEODORO K 706.2 SEBACEOUS CYST 02/24/2012 LOPEZ DO, TEODORO K 997.62 CHRONIC INFECTION OF AMPUTATION STUMP 02/24/2012 MIGUEL ARVIZU APRN E 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 02/24/2012 MIGUEL ARVIZU APRN E 706.2 SEBACEOUS CYST 02/24/2012 LATOYA ARVIZU APRNE E 997.62 CHRONIC INFECTION OF AMPUTATION STUMP 02/24/2012 LOPEZ DO, TEODORO K 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 02/24/2012 LOPEZ DO, TEODORO K 706.2 SEBACEOUS CYST 02/24/2012 LOPEZ DO, TEODORO K 997.62 CHRONIC INFECTION OF AMPUTATION STUMP 03/24/2012 LILIA MOSER, FANNY 894.0 WOUND OPEN LOWER LIMB 03/24/2012 LILIA MOSER, FANNY 894.0 WOUND OPEN LOWER LIMB 03/24/2012 894.0 WOUND OPEN LOWER LIMB 03/24/2012 894.0 WOUND OPEN LOWER LIMB 03/24/2012 894.0 WOUND OPEN LOWER LIMB 03/24/2012 LILIA MOSER, FANNY 894.0 WOUND OPEN LOWER LIMB 03/24/2012 894.0 WOUND OPEN LOWER LIMB 03/24/2012 894.0 WOUND OPEN LOWER LIMB 03/24/2012 LILIA MOSER, FANNY 894.0 WOUND OPEN LOWER LIMB 03/24/2012 LOPEZ DO, TEODORO K 894.0 WOUND OPEN LOWER LIMB 03/24/2012 LOPEZ DO, TEODORO K 894.0 WOUND OPEN LOWER LIMB 03/24/2012 LOPEZ DO, TEODORO K 894.0 WOUND OPEN LOWER LIMB 03/24/2012 LOPEZ DO, TEODORO K 894.0 WOUND OPEN LOWER LIMB 03/24/2012 LOPEZ DO, TEODORO K 894.0 WOUND OPEN LOWER LIMB 03/24/2012 LATOYA ARVIZU APRNE E 894.0 WOUND OPEN LOWER LIMB 03/24/2012 NIGEL MOSER, CONNIE Akhtar 894.0 WOUND OPEN LOWER LIMB 03/24/2012 LOPEZ DO, TEODORO K 894.0 WOUND OPEN LOWER LIMB 03/24/2012 LOPEZ DO, TEODORO K 894.0 WOUND OPEN LOWER LIMB 03/24/2012 VIJAY ARVIZU APRNSIE E 894.0 WOUND OPEN LOWER LIMB 03/24/2012 LOPEZ DO, TEODORO K 894.0 WOUND OPEN LOWER LIMB 03/24/2012 ALTOYA ARVIZU APRNE E 894.0 WOUND OPEN LOWER LIMB 03/24/2012 LOPEZ DO, TEODORO K 894.0 WOUND OPEN LOWER LIMB 03/24/2012 LOPEZ DO, TEODORO K 894.0 WOUND OPEN LOWER LIMB 03/24/2012 LOPEZ DO, TEODORO K 894.0 WOUND OPEN LOWER LIMB 03/24/2012 LOPEZ DO, TEODORO K 894.0 WOUND OPEN LOWER LIMB 03/24/2012 LOPEZ DO, TEODORO K 894.0 WOUND OPEN LOWER LIMB 03/24/2012 LOPEZ DO, TEODORO K 894.0 WOUND OPEN LOWER LIMB 03/24/2012 LOPEZ DO, TEODORO K 894.0 WOUND OPEN LOWER LIMB 03/24/2012 LOPEZ DO, TEODORO K 894.0 WOUND OPEN LOWER LIMB 03/24/2012 MIRLANDE PATIÑO APRN 894.0 WOUND OPEN LOWER LIMB 03/24/2012 LOPEZ DO, TEODORO K 894.0 WOUND OPEN LOWER LIMB 03/24/2012 LOPEZ DO, TEODORO K 894.0 WOUND OPEN LOWER LIMB 03/24/2012 LOPEZ DO, TEODORO K 894.0 WOUND OPEN LOWER LIMB 03/24/2012 LOPEZ DO, TEODORO K 894.0 WOUND OPEN LOWER LIMB 03/24/2012 LOPEZ DO, TEODORO K 894.0 WOUND OPEN LOWER LIMB 03/24/2012 LOPEZ DO, TEODORO K 894.0 WOUND OPEN LOWER LIMB 03/24/2012 MIGUEL ARVIZU APRN E 894.0 WOUND OPEN LOWER LIMB 03/24/2012 LOPEZ DO, TEODORO K 894.0 WOUND OPEN LOWER LIMB 03/24/2012 LOPEZ DO, TEODORO K 894.0 WOUND OPEN LOWER LIMB 03/24/2012 LOPEZ DO, TEODORO K 894.0 WOUND OPEN LOWER LIMB 03/24/2012 MIGUEL ARVIZU APRN E 894.0 WOUND OPEN LOWER LIMB 03/24/2012 MIGUEL ARVIZU APRN E 894.0 WOUND OPEN LOWER LIMB 03/24/2012 MIGUEL ARVIZU APRN E 894.0 WOUND OPEN LOWER LIMB 03/24/2012 MIRLANDE PATIÑO APRN 894.0 WOUND OPEN LOWER LIMB 03/24/2012 LILIA MOSER, FANNY 894.0 WOUND OPEN LOWER LIMB 03/24/2012 MIRLANDE PATIÑO APRN 894.0 WOUND OPEN LOWER LIMB 03/24/2012 HELVIJAY MILLER APRNSIE E 894.0 WOUND OPEN LOWER LIMB 03/24/2012 LOPEZ DO, TEODORO K 894.0 WOUND OPEN LOWER LIMB 03/24/2012 MIRLANDE PATIÑO APRN 894.0 WOUND OPEN LOWER LIMB 03/24/2012 PATIÑOMIRLANDE GUPTA APRN 894.0 WOUND OPEN LOWER LIMB 03/24/2012 LOPEZ DO, TEODORO K 894.0 WOUND OPEN LOWER LIMB 03/24/2012 LOPEZ DO, TEODORO K 894.0 WOUND OPEN LOWER LIMB 03/24/2012 LOPEZ DO, TEODORO K 894.0 WOUND OPEN LOWER LIMB 03/24/2012 LOPEZ DO, TEODORO K 894.0 WOUND OPEN LOWER LIMB 03/24/2012 LOPEZ DO, TEODORO K 894.0 WOUND OPEN LOWER LIMB 03/24/2012 LOPEZ DO, TEODORO K 894.0 WOUND OPEN LOWER LIMB 03/24/2012 MIGUEL ARVIZU APRN E 894.0 WOUND OPEN LOWER LIMB 03/24/2012 LOPEZ DO, TEODORO K 894.0 WOUND OPEN LOWER LIMB 03/24/2012 VIJAY ARVIZU APRNSIE E 894.0 WOUND OPEN LOWER LIMB 03/24/2012 VIJAY ARVIZU APRNSIE E 894.0 WOUND OPEN LOWER LIMB 03/24/2012 LOPEZ DO, TEODORO K 894.0 WOUND OPEN LOWER LIMB 03/24/2012 VIJAY ARVIZU APRNSIE E 894.0 WOUND OPEN LOWER LIMB 03/24/2012 LOPEZ DO, TEODORO K 894.0 WOUND OPEN LOWER LIMB 04/29/2012 Ot 707.15 ULCER OF OTHER PART OF FOOT 09/27/2012 787.1 heartburn 09/27/2012 787.1 heartburn 09/27/2012 787.1 heartburn 09/27/2012 FANNY RODRIGUES MD 787.1 heartburn 09/27/2012 787.1 heartburn 09/27/2012 787.1 heartburn 09/27/2012 FANNY RODRIGUES MD 787.1 heartburn 09/27/2012 LOPEZ DO, TEODORO K 787.1 heartburn 09/27/2012 LOPEZ DO, TEODORO K 787.1 heartburn 09/27/2012 LOPEZ DO, TEODORO K 787.1 heartburn 09/27/2012 LOPEZ DO, TEODORO K 787.1 heartburn 09/27/2012 LOPEZ DO, TEODORO K 787.1 heartburn 09/27/2012 MIGUEL ARVIZU APRN E 787.1 heartburn 09/27/2012 NIGEL MOSER, CONNIE Akhtar 787.1 heartburn 09/27/2012 LOPEZ DO, TEODORO K 787.1 heartburn 09/27/2012 LOPEZ DO, TEODORO K 787.1 heartburn 09/27/2012 MIGUEL ARVIZU APRN E 787.1 heartburn 09/27/2012 LOPEZ DO, TEODORO K 787.1 heartburn 09/27/2012 MIGUEL ARVIZU APRN E 787.1 heartburn 09/27/2012 LOPEZ DO, TEODORO K 787.1 heartburn 09/27/2012 LOPEZ DO, TEODORO K 787.1 heartburn 09/27/2012 LOPEZ DO, TEODORO K 787.1 heartburn 09/27/2012 LOPEZ DO, TEODORO K 787.1 heartburn 09/27/2012 LOPEZ DO, TEODORO K 787.1 heartburn 09/27/2012 LOPEZ DO, TEODORO K 787.1 heartburn 09/27/2012 LOPEZ DO, TEODORO K 787.1 heartburn 09/27/2012 LOPEZ DO, TEODORO K 787.1 heartburn 09/27/2012 MIRLANDE PATIÑO APRN 787.1 heartburn 09/27/2012 LOPEZ DO, TEODORO K 787.1 heartburn 09/27/2012 LOPEZ DO, TEODORO K 787.1 heartburn 09/27/2012 LOPEZ DO, TEODORO K 787.1 heartburn 09/27/2012 LOPEZ DO, TEODORO K 787.1 heartburn 09/27/2012 LOPEZ DO, TEODORO K 787.1 heartburn 09/27/2012 LOPEZ DO, TEODORO K 787.1 heartburn 09/27/2012 MIGUEL ARVIZU APRN E 787.1 heartburn 09/27/2012 LOPEZ DO, TEODORO K 787.1 heartburn 09/27/2012 LOPEZ DO, TEODORO K 787.1 heartburn 09/27/2012 LOPEZ DO, TEODORO K 787.1 heartburn 09/27/2012 [facility] MIGUEL E 787.1 heartburn 09/27/2012 [facility] LIV, MIGUEL E 787.1 heartburn 09/27/2012 [facility] P[facility]K, MIGUEL E 787.1 heartburn 09/27/2012 MIRLANDE PATIÑO APRN R 787.1 heartburn 09/27/2012 FANNY RODRIGUES MD 787.1 heartburn 09/27/2012 MIRLANDE PATIÑO APRN R 787.1 heartburn 09/27/2012 [facility] APRN E 787.1 heartburn 09/27/2012 LOPEZ DO, TEODORO K 787.1 heartburn 09/27/2012 MIRLANDE PATIÑO APRN R 787.1 heartburn 09/27/2012 PATIÑOMIRLANDE GUPTA APRN R 787.1 heartburn 09/27/2012 LOPEZ DO, TEODORO K 787.1 heartburn 09/27/2012 LOPEZ DO, TEODORO K 787.1 heartburn 09/27/2012 LOPEZ DO, TEODORO K 787.1 heartburn 09/27/2012 LOPEZ DO, TEODORO K 787.1 heartburn 09/27/2012 LOPEZ DO, TEODORO K 787.1 heartburn 09/27/2012 LOPEZ DO, TEODORO K 787.1 HEARTBURN 09/27/2012 [facility] P[facility]K MIGUEL E 787.1 HEARTBURN 09/27/2012 LOPEZ DO, TEODORO K 787.1 HEARTBURN 09/27/2012 [facility] VIJAY PECKSIE E 787.1 HEARTBURN 09/27/2012 [facility] LIV MIGUEL E 787.1 HEARTBURN 09/27/2012 LOPEZ DO, TEODORO K 787.1 HEARTBURN 09/27/2012 [facility] LIV MIGUEL E 787.1 HEARTBURN 09/27/2012 LOPEZ DO, TEODORO K 787.1 HEARTBURN 04/07/2013 FANNY RODRIGUES MD 272.4 DYSLIPIDEMIA 04/07/2013 LOPEZ DO, TEODORO K 272.4 DYSLIPIDEMIA 04/07/2013 LOPEZ DO, TEODORO K 272.4 DYSLIPIDEMIA 04/07/2013 LOPEZ DO, TEODORO K 272.4 DYSLIPIDEMIA 04/07/2013 LOPEZ DO, TEODORO K 272.4 DYSLIPIDEMIA 04/07/2013 LOPEZ DO, TEODORO K 272.4 DYSLIPIDEMIA 04/07/2013 [employer] MARKET[employer] SPECIALIST, MIGUEL E 272.4 DYSLIPIDEMIA 04/07/2013 NIGEL MOSER, CONNIE Akhtar 272.4 DYSLIPIDEMIA 04/07/2013 LOPEZ DO, TEODORO K 272.4 DYSLIPIDEMIA 04/07/2013 LOPEZ DO, TEODORO K 272.4 DYSLIPIDEMIA 04/07/2013 [employer] PRODUCT MARKETING SPECIALIST, MIGUEL E 272.4 DYSLIPIDEMIA 04/07/2013 LOPEZ DO, TEODORO K 272.4 DYSLIPIDEMIA 04/07/2013 HE[employer] PRODUCT MARKETING SPECIALIST, MIGUEL E 272.4 DYSLIPIDEMIA 04/07/2013 LOPEZ DO, TEODORO K 272.4 DYSLIPIDEMIA 04/07/2013 LOPEZ DO, TEODORO K 272.4 DYSLIPIDEMIA 04/07/2013 LOPEZ DO, TEODORO K 272.4 DYSLIPIDEMIA 04/07/2013 LOPEZ DO, TEODORO K 272.4 DYSLIPIDEMIA 04/07/2013 LOPEZ DO, TEODORO K 272.4 DYSLIPIDEMIA 04/07/2013 LOPEZ DO, TEODORO K 272.4 DYSLIPIDEMIA 04/07/2013 LOPEZ DO, TEODORO K 272.4 DYSLIPIDEMIA 04/07/2013 LOPEZ DO, TEODORO K 272.4 DYSLIPIDEMIA 04/07/2013 MIRLANDE PATIÑO APRN 272.4 DYSLIPIDEMIA 04/07/2013 LOPEZ DO, TEODORO K 272.4 DYSLIPIDEMIA 04/07/2013 LOPEZ DO, TEODORO K 272.4 DYSLIPIDEMIA 04/07/2013 LOPEZ DO, TEODORO K 272.4 DYSLIPIDEMIA 04/07/2013 LOPEZ DO, TEODORO K 272.4 DYSLIPIDEMIA 04/07/2013 LOPEZ DO, TEODORO K 272.4 DYSLIPIDEMIA 04/07/2013 LOPEZ DO, TEODORO K 272.4 DYSLIPIDEMIA 04/07/2013 [employer]ODUCT MARKET[employer] SPECIALIST, MIGUEL E 272.4 DYSLIPIDEMIA 04/07/2013 LOPEZ DO, TEODORO K 272.4 DYSLIPIDEMIA 04/07/2013 LOPEZ DO, TEODORO K 272.4 DYSLIPIDEMIA 04/07/2013 LOPEZ DO, TEODORO K 272.4 DYSLIPIDEMIA 04/07/2013 [facility], MIGULE E 272.4 DYSLIPIDEMIA 04/07/2013 [facility] PRODUCT MARKETING SPECIALIST, MIGUEL E 272.4 DYSLIPIDEMIA 04/07/2013 [employer] PRODUCT MARKETING SPECIALIST, MIGUEL E 272.4 DYSLIPIDEMIA 04/07/2013 MIRLANDE PATIÑO APRN 272.4 DYSLIPIDEMIA 04/07/2013 FANNY RODRIGUES MD 272.4 DYSLIPIDEMIA 04/07/2013 MIRLANDE PATIÑO APRN R 272.4 DYSLIPIDEMIA 04/07/2013 [facility] MIGUEL E 272.4 DYSLIPIDEMIA 04/07/2013 LOPEZ DO, TEODORO K 272.4 DYSLIPIDEMIA 04/07/2013 KAYLYN PECK, MIRLANDE R 272.4 DYSLIPIDEMIA 04/07/2013 PATIÑOMIRLANDE GUPTA APRN R 272.4 DYSLIPIDEMIA 04/07/2013 LOPEZ DO, TEODORO K 272.4 DYSLIPIDEMIA 04/07/2013 LOPEZ DO, TEODORO K 272.4 DYSLIPIDEMIA 04/07/2013 LOPEZ DO, TEODORO K 272.4 DYSLIPIDEMIA 04/07/2013 LOPEZ DO, TEODORO K 272.4 DYSLIPIDEMIA 04/07/2013 LOPEZ DO, TEODORO K 272.4 DYSLIPIDEMIA 04/07/2013 LOPEZ DO, TEODORO K 272.4 DYSLIPIDEMIA 04/07/2013 [facility] PECK MIGUEL E 272.4 DYSLIPIDEMIA 04/07/2013 LOPEZ DO, TEODORO K 272.4 DYSLIPIDEMIA 04/07/2013 [facility] MIGUEL E 272.4 DYSLIPIDEMIA 04/07/2013 [facility], MIGUEL E 272.4 DYSLIPIDEMIA 04/07/2013 LOPEZ DO, TEODORO K 272.4 DYSLIPIDEMIA 04/07/2013 [facility] PECK MIGUEL E 272.4 DYSLIPIDEMIA 04/07/2013 LOPEZ DO, TEODORO K 272.4 DYSLIPIDEMIA 07/20/2013 LOPEZ DO, TEODORO K 724.2 LUMBAGO 07/20/2013 LOPEZ DO, TEODORO K 724.2 LUMBAGO 07/20/2013 LOPEZ DO, TEODORO K 724.2 LUMBAGO 07/20/2013 LOPEZ DO, TEODORO K 724.2 LUMBAGO 07/20/2013 [facility] PECK MIGUEL E 724.2 LUMBAGO 07/20/2013 CONNIE MANNING MD 724.2 LUMBAGO 07/20/2013 LOPEZ DO, TEODORO K 724.2 LUMBAGO 07/20/2013 LOPEZ DO, TEODORO K 724.2 LUMBAGO 07/20/2013 [facility] PECK MIGUEL E 724.2 LUMBAGO 07/20/2013 LOPEZ DO, TEODORO K 724.2 LUMBAGO 07/20/2013 [facility] PECK, MIGUEL E 724.2 LUMBAGO 07/20/2013 LOPEZ DO, TEODORO K 724.2 LUMBAGO 07/20/2013 LOPEZ DO, TEODORO K 724.2 LUMBAGO 07/20/2013 LOPEZ DO, TEODORO K 724.2 LUMBAGO 07/20/2013 LOPEZ DO, TEODORO K 724.2 LUMBAGO 07/20/2013 LOPEZ DO, TEODORO K 724.2 LUMBAGO 07/20/2013 LOPEZ DO, TEODORO K 724.2 LUMBAGO 07/20/2013 LOPEZ DO, TEODORO K 724.2 LUMBAGO 07/20/2013 LOPEZ DO, TEODORO K 724.2 LUMBAGO 07/20/2013 MIRLANDE PATIÑO APRN 724.2 LUMBAGO 07/20/2013 LOPEZ DO, TEODORO K 724.2 LUMBAGO 07/20/2013 LOPEZ DO, TEODORO K 724.2 LUMBAGO 07/20/2013 LOPEZ DO, TEODORO K 724.2 LUMBAGO 07/20/2013 LOPEZ DO, TEODORO K 724.2 LUMBAGO 07/20/2013 LOPEZ DO, TEODORO K 724.2 LUMBAGO 07/20/2013 LOPEZ DO, TEODORO K 724.2 LUMBAGO 07/20/2013 [facility] PECK MIGUEL E 724.2 LUMBAGO 07/20/2013 LOPEZ DO, TEODORO K 724.2 LUMBAGO 07/20/2013 LOPEZ DO, TEODORO K 724.2 LUMBAGO 07/20/2013 LOPEZ DO, TEODORO K 724.2 LUMBAGO 07/20/2013 [facility] PECK MIGUEL E 724.2 LUMBAGO 07/20/2013 [facility] PECK MIGUEL E 724.2 LUMBAGO 07/20/2013 [facility] PECK MIGUEL E 724.2 LUMBAGO 07/20/2013 MIRLANDE PATIÑO APRN 724.2 LUMBAGO 07/20/2013 FANNY RODRIGUES MD 724.2 LUMBAGO 07/20/2013 MIRLANDE PATIÑO APRN 724.2 LUMBAGO 07/20/2013 HELLYASMANI PECK MIGUEL E 724.2 LUMBAGO 07/20/2013 LOPEZ DO, TEODORO K 724.2 LUMBAGO 07/20/2013 PATIÑOMIRLANDE GUPTA APRN 724.2 LUMBAGO 07/20/2013 PATIÑO MIRLANDE PECK R 724.2 LUMBAGO 07/20/2013 LOPEZ DO, TEODORO K 724.2 LUMBAGO 07/20/2013 LOPEZ DO, TEODORO K 724.2 LUMBAGO 07/20/2013 LOPEZ DO, TEODORO K 724.2 LUMBAGO 07/20/2013 LOPEZ DO, TEODORO K 724.2 LUMBAGO 07/20/2013 LOPEZ DO, TEODORO K 724.2 LUMBAGO 07/20/2013 LOPEZ DO, TEODORO K 724.2 LUMBAGO 07/20/2013 [facility] PECK MIGUEL E 724.2 LUMBAGO 07/20/2013 LOPEZ DO, TEODORO K 724.2 LUMBAGO 07/20/2013 [facility] PECK MIGUEL E 724.2 LUMBAGO 07/20/2013 HELPAUL PECK MIGUEL E 724.2 LUMBAGO 07/20/2013 LOPEZ DO, TEODORO K 724.2 LUMBAGO 07/20/2013 [facility] PECK MIGUEL E 724.2 LUMBAGO 07/20/2013 LOPEZ DO, TEODORO K 724.2 LUMBAGO 08/14/2013 LILIA MOSER, [place] E 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 08/17/2013 LOPEZ DO, TEODORO K 311 DEPRESSIVE DISORDER NOT ELSEWHERE CLASSIFIED 08/17/2013 LOPEZ DO, TEODORO K 311 DEPRESSIVE DISORDER NOT ELSEWHERE CLASSIFIED 08/17/2013 [facility] PECK MIGUEL E 311 DEPRESSIVE DISORDER NOT ELSEWHERE CLASSIFIED 08/17/2013 NIGEL MOSER, CONNIE Akhtar 311 DEPRESSIVE DISORDER NOT ELSEWHERE CLASSIFIED 08/17/2013 LOPEZ DO, TEODORO K 311 DEPRESSIVE DISORDER NOT ELSEWHERE CLASSIFIED 08/17/2013 LOPEZ DO, TEODORO K 311 DEPRESSIVE DISORDER NOT ELSEWHERE CLASSIFIED 08/17/2013 [facility] PECK MIGUEL E 311 DEPRESSIVE DISORDER NOT ELSEWHERE CLASSIFIED 08/17/2013 LOPEZ DO, TEODORO K 311 DEPRESSIVE DISORDER NOT ELSEWHERE CLASSIFIED 08/17/2013 [employer] PRODUCT MARKETING SPECIALIST, MIGUEL E 311 DEPRESSIVE DISORDER NOT ELSEWHERE CLASSIFIED 08/17/2013 LOPEZ DO, TEODORO K 311 DEPRESSIVE DISORDER NOT ELSEWHERE CLASSIFIED 08/17/2013 LOPEZ DO, TEODORO K 311 DEPRESSIVE DISORDER NOT ELSEWHERE CLASSIFIED 08/17/2013 LOPEZ DO, TEODORO K 311 DEPRESSIVE DISORDER NOT ELSEWHERE CLASSIFIED 08/17/2013 LOPEZ DO, TEODORO K 311 DEPRESSIVE DISORDER NOT ELSEWHERE CLASSIFIED 08/17/2013 LOPEZ DO, TEODORO K 311 DEPRESSIVE DISORDER NOT ELSEWHERE CLASSIFIED 08/17/2013 LOPEZ DO, TEODORO K 311 DEPRESSIVE DISORDER NOT ELSEWHERE CLASSIFIED 08/17/2013 LOPEZ DO, TEODORO K 311 DEPRESSIVE DISORDER NOT ELSEWHERE CLASSIFIED 08/17/2013 LOPEZ DO, TEODORO K 311 DEPRESSIVE DISORDER NOT ELSEWHERE CLASSIFIED 08/17/2013 KAYLYN PECK MIRLANDE R 311 DEPRESSIVE DISORDER NOT ELSEWHERE CLASSIFIED 08/17/2013 LOPEZ DO, TEODORO K 311 DEPRESSIVE DISORDER NOT ELSEWHERE CLASSIFIED 08/17/2013 LOPEZ DO, TEODORO K 311 DEPRESSIVE DISORDER NOT ELSEWHERE CLASSIFIED 08/17/2013 LOPEZ DO, TEODORO K 311 DEPRESSIVE DISORDER NOT ELSEWHERE CLASSIFIED 08/17/2013 LOPEZ DO, TEODORO K 311 DEPRESSIVE DISORDER NOT ELSEWHERE CLASSIFIED 08/17/2013 LOPEZ DO, TEODORO K 311 DEPRESSIVE DISORDER NOT ELSEWHERE CLASSIFIED 08/17/2013 LOPEZ DO, TEODORO K 311 DEPRESSIVE DISORDER NOT ELSEWHERE CLASSIFIED 08/17/2013 MAKSIMLYASMANI PRODUCT MARKETING SPECIALIST, MIGUEL E 311 DEPRESSIVE DISORDER NOT ELSEWHERE CLASSIFIED 08/17/2013 LOPEZ DO, TEODORO K 311 DEPRESSIVE DISORDER NOT ELSEWHERE CLASSIFIED 08/17/2013 LOPEZ DO, TEODORO K 311 DEPRESSIVE DISORDER NOT ELSEWHERE CLASSIFIED 08/17/2013 LOPEZ DO, TEODORO K 311 DEPRESSIVE DISORDER NOT ELSEWHERE CLASSIFIED 08/17/2013 [facility] PRODUCT MARKETING SPECIALIST, MIGUEL E 311 DEPRESSIVE DISORDER NOT ELSEWHERE CLASSIFIED 08/17/2013 [facility] PRODUCT MARKETING SPECIALIST, MIGUEL E 311 DEPRESSIVE DISORDER NOT ELSEWHERE CLASSIFIED 08/17/2013 [facility] [employer] MARKETING SPECIALIST, MIGUEL E 311 DEPRESSIVE DISORDER NOT ELSEWHERE CLASSIFIED 08/17/2013 MIRLANDE PATIÑO APRN R 311 DEPRESSIVE DISORDER NOT ELSEWHERE CLASSIFIED 08/17/2013 FANNY RODRIGUES MD 311 DEPRESSIVE DISORDER NOT ELSEWHERE CLASSIFIED 08/17/2013 MIRLANDE PATIÑO APRN R 311 DEPRESSIVE DISORDER NOT ELSEWHERE CLASSIFIED 08/17/2013 [facility] PRODUCT MARKETING SPECIALIST, MIGUEL E 311 DEPRESSIVE DISORDER NOT ELSEWHERE CLASSIFIED 08/17/2013 LOPEZ DO, TEODORO K 311 DEPRESSIVE DISORDER NOT ELSEWHERE CLASSIFIED 08/17/2013 PATIÑO PRODUCT MARKETING SPECIALIST, MIRLANDE R 311 DEPRESSIVE DISORDER NOT ELSEWHERE CLASSIFIED 08/17/2013 PATIÑO PRODUCT MARKETING SPECIALIST, MIRLANDE R 311 DEPRESSIVE DISORDER NOT ELSEWHERE CLASSIFIED 08/17/2013 LOPEZ DO, TEODORO K 311 DEPRESSIVE DISORDER NOT ELSEWHERE CLASSIFIED 08/17/2013 LOPEZ DO, TEODORO K 311 DEPRESSIVE DISORDER NOT ELSEWHERE CLASSIFIED 08/17/2013 LOPEZ DO, TEODORO K 311 DEPRESSIVE DISORDER NOT ELSEWHERE CLASSIFIED 08/17/2013 LOPEZ DO, TEODORO K 311 DEPRESSIVE DISORDER NOT ELSEWHERE CLASSIFIED 08/17/2013 LOPEZ DO, TEODORO K 311 DEPRESSIVE DISORDER NOT ELSEWHERE CLASSIFIED 08/17/2013 LOPEZ DO, TEODORO K 311 DEPRESSIVE DISORDER NOT ELSEWHERE CLASSIFIED 08/17/2013 [employer] PRODUCT MARKETING SPECIALIST, MIGUEL E 311 DEPRESSIVE DISORDER NOT ELSEWHERE CLASSIFIED 08/17/2013 LOPEZ DO, TEODORO K 311 DEPRESSIVE DISORDER NOT ELSEWHERE CLASSIFIED 08/17/2013 [employer] PRODUCT MARKETING SPECIALIST, MIGUEL E 311 DEPRESSIVE DISORDER NOT ELSEWHERE CLASSIFIED 08/17/2013 [employer] PRODUCT MARKETING SPECIALIST, MIGUEL E 311 DEPRESSIVE DISORDER NOT ELSEWHERE CLASSIFIED 08/17/2013 LOPEZ DO, TEODORO K 311 DEPRESSIVE DISORDER NOT ELSEWHERE CLASSIFIED 08/17/2013 [employer] PRODUCT MARKETING SPECIALIST, MIGUEL E 311 DEPRESSIVE DISORDER NOT ELSEWHERE CLASSIFIED 08/17/2013 LOPEZ DO, TEODORO K 311 DEPRESSIVE DISORDER NOT ELSEWHERE CLASSIFIED 09/25/2013 [employer] PRODUCT MARKETING SPECIALIST, MIGUEL E V67.59 OTHER FOLLOW-UP EXAMINATION 09/25/2013 NIGEL MOSER, CONNIE Akhtar V67.59 OTHER FOLLOW-UP EXAMINATION 09/25/2013 LOPEZ DO, TEODORO K V67.59 OTHER FOLLOW-UP EXAMINATION 09/25/2013 LOPEZ DO, TEODORO K V67.59 OTHER FOLLOW-UP EXAMINATION 09/25/2013 [employer] PR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 E V67.59 OTHER FOLLOW-UP EXAMINATION 09/25/2013 LOPEZ DO, TEODORO K V67.59 OTHER FOLLOW-UP EXAMINATION 09/25/2013 [employer] PR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 E V67.59 OTHER FOLLOW-UP EXAMINATION 09/25/2013 LOPEZ DO, TEODORO K V67.59 OTHER FOLLOW-UP EXAMINATION 09/25/2013 LOPEZ DO, TEODORO K V67.59 OTHER FOLLOW-UP EXAMINATION 09/25/2013 LOPEZ DO, TEODORO K V67.59 OTHER FOLLOW-UP EXAMINATION 09/25/2013 LOPEZ DO, TEODORO K V67.59 OTHER FOLLOW-UP EXAMINATION 09/25/2013 LOPEZ DO, TEODORO K V67.59 OTHER FOLLOW-UP EXAMINATION 09/25/2013 LOPEZ DO, TEODORO K V67.59 OTHER FOLLOW-UP EXAMINATION 09/25/2013 LOPEZ DO, TEODORO K V67.59 OTHER FOLLOW-UP EXAMINATION 09/25/2013 LOPEZ DO, TEODORO K V67.59 OTHER FOLLOW-UP EXAMINATION 09/25/2013 MIRLANDE PATIÑO APRN V67.59 OTHER FOLLOW-UP EXAMINATION 09/25/2013 LOPEZ DO, TEODORO K V67.59 OTHER FOLLOW-UP EXAMINATION 09/25/2013 LOPEZ DO, TEODORO K V67.59 OTHER FOLLOW-UP EXAMINATION 09/25/2013 LOPEZ DO, TEODORO K V67.59 OTHER FOLLOW-UP EXAMINATION 09/25/2013 LOPEZ DO, TEODORO K V67.59 OTHER FOLLOW-UP EXAMINATION 09/25/2013 LOPEZ DO, TEODORO K V67.59 OTHER FOLLOW-UP EXAMINATION 09/25/2013 LOPEZ DO, TEODORO K V67.59 OTHER FOLLOW-UP EXAMINATION 09/25/2013 [facility] PECK MIGUEL E V67.59 OTHER FOLLOW-UP EXAMINATION 09/25/2013 LOPEZ DO, TEODORO K V67.59 OTHER FOLLOW-UP EXAMINATION 09/25/2013 LOPEZ DO, TEODORO K V67.59 OTHER FOLLOW-UP EXAMINATION 09/25/2013 LOPEZ DO, TEODORO K V67.59 OTHER FOLLOW-UP EXAMINATION 09/25/2013 [facility] PECK MIGUEL E V67.59 OTHER FOLLOW-UP EXAMINATION 09/25/2013 [facility] PECK MIGUEL E V67.59 OTHER FOLLOW-UP EXAMINATION 09/25/2013 [facility] PECK MIGUEL E V67.59 OTHER FOLLOW-UP EXAMINATION 09/25/2013 MIRLANDE PATIÑO APRN V67.59 OTHER FOLLOW-UP EXAMINATION 09/25/2013 FANNY RODRIGUES MD V67.59 OTHER FOLLOW-UP EXAMINATION 09/25/2013 MIRLANDE PATIÑO APRN V67.59 OTHER FOLLOW-UP EXAMINATION 09/25/2013 MIGUEL ARVIZU APRN E V67.59 OTHER FOLLOW-UP EXAMINATION 09/25/2013 LOPEZ DO, TEODORO K V67.59 OTHER FOLLOW-UP EXAMINATION 09/25/2013 KAYLYN PECK MIRLANDE Mckeon V67.59 OTHER FOLLOW-UP EXAMINATION 09/25/2013 PATIÑO PRODUCT MARKETING SPECIALIST, MIRLANDE Mckeon V67.59 OTHER FOLLOW-UP EXAMINATION 09/25/2013 LOPEZ DO, TEODORO K V67.59 OTHER FOLLOW-UP EXAMINATION 09/25/2013 LOPEZ DO, TEODORO K V67.59 OTHER FOLLOW-UP EXAMINATION 09/25/2013 LOPEZ DO, TEODORO K V67.59 OTHER FOLLOW-UP EXAMINATION 09/25/2013 LOPEZ DO, TEODORO K V67.59 OTHER FOLLOW-UP EXAMINATION 09/25/2013 LOPEZ DO, TEODORO K V67.59 OTHER FOLLOW-UP EXAMINATION 09/25/2013 LOPEZ DO, TEODORO K V67.59 OTHER FOLLOW-UP EXAMINATION 09/25/2013 DAMEONWIG PRODUCT MARKETING SPECIALIST, MIGUEL E V67.59 OTHER FOLLOW-UP EXAMINATION 09/25/2013 LOPEZ DO, TEODORO K V67.59 OTHER FOLLOW-UP EXAMINATION 09/25/2013 [facility], MIGUEL E V67.59 OTHER FOLLOW-UP EXAMINATION 09/25/2013 [facility] PR[facility] MARKETING SPECIALIST, MIGUEL E V67.59 OTHER FOLLOW-UP EXAMINATION 09/25/2013 LOPEZ DO, TEODORO K V67.59 OTHER FOLLOW-UP EXAMINATION 09/25/2013 HELW[employer] PRODUCT MARKETING SPECIALIST, MIGUEL E V67.59 OTHER FOLLOW-UP EXAMINATION 09/25/2013 LOPEZ DO, TEODORO K V67.59 OTHER FOLLOW-UP EXAMINATION 12/20/2013 LOPEZ DO, TEODORO K 892.0 OPEN WOUND OF FOOT EXCEPT TOE(S) ALONE WITHOUT COMPLICATION 12/20/2013 LOPEZ DO, TEODORO K 892.0 OPEN WOUND OF FOOT EXCEPT TOE(S) ALONE WITHOUT COMPLICATION 12/20/2013 [facility] PR[facility] MARKETING SPECIALIST, MIGUEL E 892.0 OPEN WOUND OF FOOT EXCEPT TOE(S) ALONE WITHOUT COMPLICATION 12/20/2013 LOPEZ DO, TEODORO K 892.0 OPEN WOUND OF FOOT EXCEPT TOE(S) ALONE WITHOUT COMPLICATION 12/20/2013 HE[employer]IG PRODUCT MARKETING SPECIALIST, MIGUEL E 892.0 OPEN WOUND OF FOOT EXCEPT TOE(S) ALONE WITHOUT COMPLICATION 12/20/2013 LOPEZ DO, TEODORO K 892.0 OPEN WOUND OF FOOT EXCEPT TOE(S) ALONE WITHOUT COMPLICATION 12/20/2013 LOPEZ DO, TEODORO K 892.0 OPEN WOUND OF FOOT EXCEPT TOE(S) ALONE WITHOUT COMPLICATION 12/20/2013 LOPEZ DO, TEODORO K 892.0 OPEN WOUND OF FOOT EXCEPT TOE(S) ALONE WITHOUT COMPLICATION 12/20/2013 LOPEZ DO, TEODORO K 892.0 OPEN WOUND OF FOOT EXCEPT TOE(S) ALONE WITHOUT COMPLICATION 12/20/2013 LOPEZ DO, TEODORO K 892.0 OPEN WOUND OF FOOT EXCEPT TOE(S) ALONE WITHOUT COMPLICATION 12/20/2013 LOPEZ DO, TEODORO K 892.0 OPEN WOUND OF FOOT EXCEPT TOE(S) ALONE WITHOUT COMPLICATION 12/20/2013 LOPEZ DO, TEODORO K 892.0 OPEN WOUND OF FOOT EXCEPT TOE(S) ALONE WITHOUT COMPLICATION 12/20/2013 LOPEZ DO, TEODORO K 892.0 OPEN WOUND OF FOOT EXCEPT TOE(S) ALONE WITHOUT COMPLICATION 12/20/2013 MIRLANDE PATIÑO APRN 892.0 OPEN WOUND OF FOOT EXCEPT TOE(S) ALONE WITHOUT COMPLICATION 12/20/2013 LOPEZ DO, TEODORO K 892.0 OPEN WOUND OF FOOT EXCEPT TOE(S) ALONE WITHOUT COMPLICATION 12/20/2013 LOPEZ DO, TEODORO K 892.0 OPEN WOUND OF FOOT EXCEPT TOE(S) ALONE WITHOUT COMPLICATION 12/20/2013 LOPEZ DO, TEODORO K 892.0 OPEN WOUND OF FOOT EXCEPT TOE(S) ALONE WITHOUT COMPLICATION 12/20/2013 LOPEZ DO, TEODORO K 892.0 OPEN WOUND OF FOOT EXCEPT TOE(S) ALONE WITHOUT COMPLICATION 12/20/2013 LOPEZ DO, TEODORO K 892.0 OPEN WOUND OF FOOT EXCEPT TOE(S) ALONE WITHOUT COMPLICATION 12/20/2013 LOPEZ DO, TEODORO K 892.0 OPEN WOUND OF FOOT EXCEPT TOE(S) ALONE WITHOUT COMPLICATION 12/20/2013 MIGUEL ARVIZU APRN E 892.0 OPEN WOUND OF FOOT EXCEPT TOE(S) ALONE WITHOUT COMPLICATION 12/20/2013 LOPEZ DO, TEODORO K 892.0 OPEN WOUND OF FOOT EXCEPT TOE(S) ALONE WITHOUT COMPLICATION 12/20/2013 LOPEZ DO, TEODORO K 892.0 OPEN WOUND OF FOOT EXCEPT TOE(S) ALONE WITHOUT COMPLICATION 12/20/2013 LOPEZ DO, TEODORO K 892.0 OPEN WOUND OF FOOT EXCEPT TOE(S) ALONE WITHOUT COMPLICATION 12/20/2013 MIGUEL ARVIZU APRN E 892.0 OPEN WOUND OF FOOT EXCEPT TOE(S) ALONE WITHOUT COMPLICATION 12/20/2013 MIGUEL ARVIZU APRN E 892.0 OPEN WOUND OF FOOT EXCEPT TOE(S) ALONE WITHOUT COMPLICATION 12/20/2013 MIGUEL ARVIZU APRN E 892.0 OPEN WOUND OF FOOT EXCEPT TOE(S) ALONE WITHOUT COMPLICATION 12/20/2013 MIRLANDE PATIÑO APRN 892.0 OPEN WOUND OF FOOT EXCEPT TOE(S) ALONE WITHOUT COMPLICATION 12/20/2013 FANNY RODRIGUES MD 892.0 OPEN WOUND OF FOOT EXCEPT TOE(S) ALONE WITHOUT COMPLICATION 12/20/2013 MIRLANDE PATIÑO APRN 892.0 OPEN WOUND OF FOOT EXCEPT TOE(S) ALONE WITHOUT COMPLICATION 12/20/2013 MIGUEL ARVIZU APRN E 892.0 OPEN WOUND OF FOOT EXCEPT TOE(S) ALONE WITHOUT COMPLICATION 12/20/2013 JESSICA DO, TEODORO K 892.0 OPEN WOUND OF FOOT EXCEPT TOE(S) ALONE WITHOUT COMPLICATION 12/20/2013 MIRLANDE PATIÑO APRN 892.0 OPEN WOUND OF FOOT EXCEPT TOE(S) ALONE WITHOUT COMPLICATION 12/20/2013 MIRLANDE PATIÑO APRN 892.0 OPEN WOUND OF FOOT EXCEPT TOE(S) ALONE WITHOUT COMPLICATION 12/20/2013 LOPEZ DO, TEODORO K 892.0 OPEN WOUND OF FOOT EXCEPT TOE(S) ALONE WITHOUT COMPLICATION 12/20/2013 LOPEZ DO, TEODORO K 892.0 OPEN WOUND OF FOOT EXCEPT TOE(S) ALONE WITHOUT COMPLICATION 12/20/2013 LOPEZ DO, TEODORO K 892.0 OPEN WOUND OF FOOT EXCEPT TOE(S) ALONE WITHOUT COMPLICATION 12/20/2013 LOPEZ DO, TEODORO K 892.0 OPEN WOUND OF FOOT EXCEPT TOE(S) ALONE WITHOUT COMPLICATION 12/20/2013 LOPEZ DO, TEODORO K 892.0 OPEN WOUND OF FOOT EXCEPT TOE(S) ALONE WITHOUT COMPLICATION 12/20/2013 LOPEZ DO, TEODORO K 892.0 OPEN WOUND OF FOOT EXCEPT TOE(S) ALONE WITHOUT COMPLICATION 12/20/2013 MIGUEL ARVIZU APRN E 892.0 OPEN WOUND OF FOOT EXCEPT TOE(S) ALONE WITHOUT COMPLICATION 12/20/2013 LOPEZ DO, TEODORO K 892.0 OPEN WOUND OF FOOT EXCEPT TOE(S) ALONE WITHOUT COMPLICATION 12/20/2013 MIGUEL ARVIZU APRN E 892.0 OPEN WOUND OF FOOT EXCEPT TOE(S) ALONE WITHOUT COMPLICATION 12/20/2013 MIGUEL ARVIZU APRN 892.0 OPEN WOUND OF FOOT EXCEPT TOE(S) ALONE WITHOUT COMPLICATION 12/20/2013 JESSICA HAMM, TEODORO K 892.0 OPEN WOUND OF FOOT EXCEPT TOE(S) ALONE WITHOUT COMPLICATION 12/20/2013 MIGUEL ARVIZU APRN E 892.0 OPEN WOUND OF FOOT EXCEPT TOE(S) ALONE WITHOUT COMPLICATION 12/20/2013 JESSICA HAMM, TEODORO K 892.0 OPEN WOUND OF FOOT EXCEPT TOE(S) ALONE WITHOUT COMPLICATION 12/27/2013 JESSICA HAMM TEODORO K 250.80 DIABETES WITH OTHER SPECIFIED MANIFESTATIONS TYPE II OR UNSPECIFIED TYPE NOT STATED UNCONTROLLED 12/27/2013 MIGUEL ARVIZU APRN 250.80 DIABETES WITH OTHER SPECIFIED MANIFESTATIONS TYPE II OR UNSPECIFIED TYPE NOT STATED UNCONTROLLED 12/27/2013 TEODORO LOPEZ DO K 250.80 DIABETES WITH OTHER SPECIFIED MANIFESTATIONS TYPE II OR UNSPECIFIED TYPE NOT STATED UNCONTROLLED 12/27/2013 MIGUEL ARVIZU APRN 250.80 DIABETES WITH OTHER SPECIFIED MANIFESTATIONS TYPE II OR UNSPECIFIED TYPE NOT STATED UNCONTROLLED 12/27/2013 JESSICA HAMM TEODORO K 250.80 DIABETES WITH OTHER SPECIFIED MANIFESTATIONS TYPE II OR UNSPECIFIED TYPE NOT STATED UNCONTROLLED 12/27/2013 VIJAY LOPEZ DOA K 250.80 DIABETES WITH OTHER SPECIFIED MANIFESTATIONS TYPE II OR UNSPECIFIED TYPE NOT STATED UNCONTROLLED 12/27/2013 JESSICA HAMM TEODORO K 250.80 DIABETES WITH OTHER SPECIFIED MANIFESTATIONS TYPE II OR UNSPECIFIED TYPE NOT STATED UNCONTROLLED 12/27/2013 VIJAY LOPEZ DOA K 250.80 DIABETES WITH OTHER SPECIFIED MANIFESTATIONS TYPE II OR UNSPECIFIED TYPE NOT STATED UNCONTROLLED 12/27/2013 JESSICA HAMM TEODORO K 250.80 DIABETES WITH OTHER SPECIFIED MANIFESTATIONS TYPE II OR UNSPECIFIED TYPE NOT STATED UNCONTROLLED 12/27/2013 JESSICA HAMM TEODORO K 250.80 DIABETES WITH OTHER SPECIFIED MANIFESTATIONS TYPE II OR UNSPECIFIED TYPE NOT STATED UNCONTROLLED 12/27/2013 JESSICA HAMM TEODORO K 250.80 DIABETES WITH OTHER SPECIFIED MANIFESTATIONS TYPE II OR UNSPECIFIED TYPE NOT STATED UNCONTROLLED 12/27/2013 JESSICA HAMM TEODORO K 250.80 DIABETES WITH OTHER SPECIFIED MANIFESTATIONS TYPE II OR UNSPECIFIED TYPE NOT STATED UNCONTROLLED 12/27/2013 MIRLANDE PATIÑO APRN 250.80 DIABETES WITH OTHER SPECIFIED MANIFESTATIONS TYPE II OR UNSPECIFIED TYPE NOT STATED UNCONTROLLED 12/27/2013 TEODORO LOPEZ DO 250.80 DIABETES WITH OTHER SPECIFIED MANIFESTATIONS TYPE II OR UNSPECIFIED TYPE NOT STATED UNCONTROLLED 12/27/2013 TEODORO LOPEZ DO 250.80 DIABETES WITH OTHER SPECIFIED MANIFESTATIONS TYPE II OR UNSPECIFIED TYPE NOT STATED UNCONTROLLED 12/27/2013 TEODORO LOPEZ DO 250.80 DIABETES WITH OTHER SPECIFIED MANIFESTATIONS TYPE II OR UNSPECIFIED TYPE NOT STATED UNCONTROLLED 12/27/2013 TEODORO LOPEZ DO 250.80 DIABETES WITH OTHER SPECIFIED MANIFESTATIONS TYPE II OR UNSPECIFIED TYPE NOT STATED UNCONTROLLED 12/27/2013 TEODORO LOPEZ DO 250.80 DIABETES WITH OTHER SPECIFIED MANIFESTATIONS TYPE II OR UNSPECIFIED TYPE NOT STATED UNCONTROLLED 12/27/2013 TEODORO LOPEZ DO 250.80 DIABETES WITH OTHER SPECIFIED MANIFESTATIONS TYPE II OR UNSPECIFIED TYPE NOT STATED UNCONTROLLED 12/27/2013 MIGUEL ARVIZU APRN 250.80 DIABETES WITH OTHER SPECIFIED MANIFESTATIONS TYPE II OR UNSPECIFIED TYPE NOT STATED UNCONTROLLED 12/27/2013 TEODORO LOPEZ DO 250.80 DIABETES WITH OTHER SPECIFIED MANIFESTATIONS TYPE II OR UNSPECIFIED TYPE NOT STATED UNCONTROLLED 12/27/2013 TEODORO LOPEZ DO 250.80 DIABETES WITH OTHER SPECIFIED MANIFESTATIONS TYPE II OR UNSPECIFIED TYPE NOT STATED UNCONTROLLED 12/27/2013 TEODORO LOPZE DO 250.80 DIABETES WITH OTHER SPECIFIED MANIFESTATIONS TYPE II OR UNSPECIFIED TYPE NOT STATED UNCONTROLLED 12/27/2013 MIGUEL ARVIZU APRN 250.80 DIABETES WITH OTHER SPECIFIED MANIFESTATIONS TYPE II OR UNSPECIFIED TYPE NOT STATED UNCONTROLLED 12/27/2013 MIGUEL ARVIZU APRN 250.80 DIABETES WITH OTHER SPECIFIED MANIFESTATIONS TYPE II OR UNSPECIFIED TYPE NOT STATED UNCONTROLLED 12/27/2013 MIGUEL ARVIZU APRN 250.80 DIABETES WITH OTHER SPECIFIED MANIFESTATIONS TYPE II OR UNSPECIFIED TYPE NOT STATED UNCONTROLLED 12/27/2013 MIRLANDE PATIÑO APRN 250.80 DIABETES WITH OTHER SPECIFIED MANIFESTATIONS TYPE II OR UNSPECIFIED TYPE NOT STATED UNCONTROLLED 12/27/2013 FANNY RODRIGUES MD 250.80 DIABETES WITH OTHER SPECIFIED MANIFESTATIONS TYPE II OR UNSPECIFIED TYPE NOT STATED UNCONTROLLED 12/27/2013 MIRLANDE PATIÑO APRN 250.80 DIABETES WITH OTHER SPECIFIED MANIFESTATIONS TYPE II OR UNSPECIFIED TYPE NOT STATED UNCONTROLLED 12/27/2013 MIGUEL ARVIZU APRN 250.80 DIABETES WITH OTHER SPECIFIED MANIFESTATIONS TYPE II OR UNSPECIFIED TYPE NOT STATED UNCONTROLLED 12/27/2013 TEODORO LOPEZ DO 250.80 DIABETES WITH OTHER SPECIFIED MANIFESTATIONS TYPE II OR UNSPECIFIED TYPE NOT STATED UNCONTROLLED 12/27/2013 MIRLANDE PATIÑO APRN 250.80 DIABETES WITH OTHER SPECIFIED MANIFESTATIONS TYPE II OR UNSPECIFIED TYPE NOT STATED UNCONTROLLED 12/27/2013 MIRLANDE PATIÑO APRN 250.80 DIABETES WITH OTHER SPECIFIED MANIFESTATIONS TYPE II OR UNSPECIFIED TYPE NOT STATED UNCONTROLLED 12/27/2013 TEODORO LOPEZ DO 250.80 DIABETES WITH OTHER SPECIFIED MANIFESTATIONS TYPE II OR UNSPECIFIED TYPE NOT STATED UNCONTROLLED 12/27/2013 TEODORO LOPEZ DO 250.80 DIABETES WITH OTHER SPECIFIED MANIFESTATIONS TYPE II OR UNSPECIFIED TYPE NOT STATED UNCONTROLLED 12/27/2013 TEODORO LOPEZ DO 250.80 DIABETES WITH OTHER SPECIFIED MANIFESTATIONS TYPE II OR UNSPECIFIED TYPE NOT STATED UNCONTROLLED 12/27/2013 TEODORO LOPEZ DO 250.80 DIABETES WITH OTHER SPECIFIED MANIFESTATIONS TYPE II OR UNSPECIFIED TYPE NOT STATED UNCONTROLLED 12/27/2013 TEODORO LOPEZ DO 250.80 DIABETES WITH OTHER SPECIFIED MANIFESTATIONS TYPE II OR UNSPECIFIED TYPE NOT STATED UNCONTROLLED 12/27/2013 TEODORO LOPEZ DO 250.80 DIABETES WITH OTHER SPECIFIED MANIFESTATIONS TYPE II OR UNSPECIFIED TYPE NOT STATED UNCONTROLLED 12/27/2013 MIGUEL ARVIZU APRN 250.80 DIABETES WITH OTHER SPECIFIED MANIFESTATIONS TYPE II OR UNSPECIFIED TYPE NOT STATED UNCONTROLLED 12/27/2013 TEODORO LOPEZ DO 250.80 DIABETES WITH OTHER SPECIFIED MANIFESTATIONS TYPE II OR UNSPECIFIED TYPE NOT STATED UNCONTROLLED 12/27/2013 MIGUEL ARVIZU APRN 250.80 DIABETES WITH OTHER SPECIFIED MANIFESTATIONS TYPE II OR UNSPECIFIED TYPE NOT STATED UNCONTROLLED 12/27/2013 MIGUEL ARVIZU APRN 250.80 DIABETES WITH OTHER SPECIFIED MANIFESTATIONS TYPE II OR UNSPECIFIED TYPE NOT STATED UNCONTROLLED 12/27/2013 TEODORO LOPEZ DO 250.80 DIABETES WITH OTHER SPECIFIED MANIFESTATIONS TYPE II OR UNSPECIFIED TYPE NOT STATED UNCONTROLLED 12/27/2013 MIGUEL ARVIZU APRN 250.80 DIABETES WITH OTHER SPECIFIED MANIFESTATIONS TYPE II OR UNSPECIFIED TYPE NOT STATED UNCONTROLLED 12/27/2013 LOPEZ DO, TEOODRO K 250.80 DIABETES WITH OTHER SPECIFIED MANIFESTATIONS TYPE II OR UNSPECIFIED TYPE NOT STATED UNCONTROLLED 01/17/2014 LOPEZ DO, TEODORO K 682.2 CELLULITIS AND ABSCESS OF TRUNK 01/17/2014 MIGUEL ARVIZU APRN 682.2 CELLULITIS AND ABSCESS OF TRUNK 01/17/2014 LOPEZ DO, TEODORO K 682.2 CELLULITIS AND ABSCESS OF TRUNK 01/17/2014 LOPEZ DO, TEODORO K 682.2 CELLULITIS AND ABSCESS OF TRUNK 01/17/2014 LOPEZ DO, TEODORO K 682.2 CELLULITIS AND ABSCESS OF TRUNK 01/17/2014 LOPEZ DO, TEODORO K 682.2 CELLULITIS AND ABSCESS OF TRUNK 01/17/2014 LOPEZ DO, TEODORO K 682.2 CELLULITIS AND ABSCESS OF TRUNK 01/17/2014 LOPEZ DO, TEODORO K 682.2 CELLULITIS AND ABSCESS OF TRUNK 01/17/2014 LOPEZ DO, TEODORO K 682.2 CELLULITIS AND ABSCESS OF TRUNK 01/17/2014 LOPEZ DO, TEODORO K 682.2 CELLULITIS AND ABSCESS OF TRUNK 01/17/2014 MIRLANDE PATIÑO APRN 682.2 CELLULITIS AND ABSCESS OF TRUNK 01/17/2014 LOPEZ DO, TEODORO K 682.2 CELLULITIS AND ABSCESS OF TRUNK 01/17/2014 LOPEZ DO, TEODORO K 682.2 CELLULITIS AND ABSCESS OF TRUNK 01/17/2014 LOPEZ DO, TEODORO K 682.2 CELLULITIS AND ABSCESS OF TRUNK 01/17/2014 LOPEZ DO, TEODORO K 682.2 CELLULITIS AND ABSCESS OF TRUNK 01/17/2014 LOPEZ DO, TEODORO K 682.2 CELLULITIS AND ABSCESS OF TRUNK 01/17/2014 LOPEZ DO, TEODORO K 682.2 CELLULITIS AND ABSCESS OF TRUNK 01/17/2014 MIGUEL ARVIZU APRN 682.2 CELLULITIS AND ABSCESS OF TRUNK 01/17/2014 LOPEZ DO, TEODORO K 682.2 CELLULITIS AND ABSCESS OF TRUNK 01/17/2014 LOPEZ DO, TEODORO K 682.2 CELLULITIS AND ABSCESS OF TRUNK 01/17/2014 LOPEZ DO, TEODORO K 682.2 CELLULITIS AND ABSCESS OF TRUNK 01/17/2014 MIGUEL ARVIZU APRN 682.2 CELLULITIS AND ABSCESS OF TRUNK 01/17/2014 MIGUEL ARVIZU APRN E 682.2 CELLULITIS AND ABSCESS OF TRUNK 01/17/2014 MIGUEL ARVIZU APRN E 682.2 CELLULITIS AND ABSCESS OF TRUNK 01/17/2014 MIRLANDE PATIÑO APRN 682.2 CELLULITIS AND ABSCESS OF TRUNK 01/17/2014 FANNY RODRIGUES MD 682.2 CELLULITIS AND ABSCESS OF TRUNK 01/17/2014 MIRLANDE PATIÑO APRN 682.2 CELLULITIS AND ABSCESS OF TRUNK 01/17/2014 MIGUEL ARVIZU APRN E 682.2 CELLULITIS AND ABSCESS OF TRUNK 01/17/2014 JESSICA DO, TEODORO K 682.2 CELLULITIS AND ABSCESS OF TRUNK 01/17/2014 MIRLANDE PATIÑO APRN 682.2 CELLULITIS AND ABSCESS OF TRUNK 01/17/2014 MIRLANDE PATIÑO APRN 682.2 CELLULITIS AND ABSCESS OF TRUNK 01/17/2014 LOPEZ DO, TEODORO K 682.2 CELLULITIS AND ABSCESS OF TRUNK 01/17/2014 LOPEZ DO, TEODORO K 682.2 CELLULITIS AND ABSCESS OF TRUNK 01/17/2014 LOPEZ DO, TEODORO K 682.2 CELLULITIS AND ABSCESS OF TRUNK 01/17/2014 LOPEZ DO, TEODORO K 682.2 CELLULITIS AND ABSCESS OF TRUNK 01/17/2014 LOPEZ DO, TEODORO K 682.2 CELLULITIS AND ABSCESS OF TRUNK 01/17/2014 LOPEZ DO, TEODORO K 682.2 CELLULITIS AND ABSCESS OF TRUNK 01/17/2014 MIGUEL ARVIZU APRN E 682.2 CELLULITIS AND ABSCESS OF TRUNK 01/17/2014 LOPEZ DO, TEODORO K 682.2 CELLULITIS AND ABSCESS OF TRUNK 01/17/2014 MIGUEL ARVIZU APRN E 682.2 CELLULITIS AND ABSCESS OF TRUNK 01/17/2014 MIGUEL ARVIZU APRN E 682.2 CELLULITIS AND ABSCESS OF TRUNK 01/17/2014 LOPEZ DO, TEODORO K 682.2 CELLULITIS AND ABSCESS OF TRUNK 01/17/2014 MIGUEL ARVIZU APRN E 682.2 CELLULITIS AND ABSCESS OF TRUNK 01/17/2014 LOPEZ DO, TEODORO K 682.2 CELLULITIS AND ABSCESS OF TRUNK 02/16/2014 LOPEZ DO, TEODORO K 110.1 ONYCHOMYCOSIS 02/16/2014 LOPEZ DO, TEODORO K 250.40 DIABETES W/ NEPHROPATHY, DM TYPE 2 02/16/2014 LOPEZ DO, TEODORO K 707.15 ULCER-FOOT/TOES 02/16/2014 LOPEZ DO, TEODORO K 110.1 ONYCHOMYCOSIS 02/16/2014 LOPEZ DO, TEODORO K 250.40 DIABETES W/ NEPHROPATHY, DM TYPE 2 02/16/2014 LOPEZ DO, TEODORO K 707.15 ULCER-FOOT/TOES 02/16/2014 LOPEZ DO, TEODORO K 110.1 ONYCHOMYCOSIS 02/16/2014 LOPEZ DO, TEODORO K 250.40 DIABETES W/ NEPHROPATHY, DM TYPE 2 02/16/2014 LOPEZ DO, TEODORO K 707.15 ULCER-FOOT/TOES 02/16/2014 LOPEZ DO, TEODORO K 110.1 ONYCHOMYCOSIS 02/16/2014 LOPEZ DO, TEODORO K 250.40 DIABETES W/ NEPHROPATHY, DM TYPE 2 02/16/2014 LOPEZ DO, TEODORO K 707.15 ULCER-FOOT/TOES 02/16/2014 LOPEZ DO, TEODORO K 110.1 ONYCHOMYCOSIS 02/16/2014 LOPEZ DO, TEODORO K 250.40 DIABETES W/ NEPHROPATHY, DM TYPE 2 02/16/2014 LOPEZ DO, TEODORO K 707.15 ULCER-FOOT/TOES 02/16/2014 LOPEZ DO, TEODORO K 110.1 ONYCHOMYCOSIS 02/16/2014 LOPEZ DO, TEODORO K 250.40 DIABETES W/ NEPHROPATHY, DM TYPE 2 02/16/2014 LOPEZ DO, TEODORO K 707.15 ULCER-FOOT/TOES 02/16/2014 LOPEZ DO, TEODORO K 110.1 ONYCHOMYCOSIS 02/16/2014 LOPEZ DO, TEODORO K 250.40 DIABETES W/ NEPHROPATHY, DM TYPE 2 02/16/2014 LOPEZ DO, TEODORO K 707.15 ULCER-FOOT/TOES 02/16/2014 MIRLANDE PATIÑO APRN 110.1 ONYCHOMYCOSIS 02/16/2014 MIRLANDE PATIÑO APRN 250.40 DIABETES W/ NEPHROPATHY, DM TYPE 2 02/16/2014 MIRLANDE PATIÑO APRN 707.15 ULCER-FOOT/TOES 02/16/2014 LOPEZ DO, TEODORO K 110.1 ONYCHOMYCOSIS 02/16/2014 LOPEZ DO, TEODORO K 250.40 DIABETES W/ NEPHROPATHY, DM TYPE 2 02/16/2014 LOPEZ DO, TEODORO K 707.15 ULCER-FOOT/TOES 02/16/2014 LOPEZ DO, TEODORO K 110.1 ONYCHOMYCOSIS 02/16/2014 LOPEZ DO, TEODORO K 250.40 DIABETES W/ NEPHROPATHY, DM TYPE 2 02/16/2014 LOPEZ DO, TEODORO K 707.15 ULCER-FOOT/TOES 02/16/2014 LOPEZ DO, TEODORO K 110.1 ONYCHOMYCOSIS 02/16/2014 LOPEZ DO, TEODORO K 250.40 DIABETES W/ NEPHROPATHY, DM TYPE 2 02/16/2014 LOPEZ DO, TEODORO K 707.15 ULCER-FOOT/TOES 02/16/2014 LOPEZ DO, TEODORO K 110.1 ONYCHOMYCOSIS 02/16/2014 LOPEZ DO, TEODORO K 250.40 DIABETES W/ NEPHROPATHY, DM TYPE 2 02/16/2014 LOPEZ DO, TEODORO K 707.15 ULCER-FOOT/TOES 02/16/2014 LOPEZ DO, TEODORO K 110.1 ONYCHOMYCOSIS 02/16/2014 LOPEZ DO, TEODORO K 250.40 DIABETES W/ NEPHROPATHY, DM TYPE 2 02/16/2014 LOPEZ DO, TEODORO K 707.15 ULCER-FOOT/TOES 02/16/2014 LOPEZ DO, TEODORO K 110.1 ONYCHOMYCOSIS 02/16/2014 LOPEZ DO, TEODORO K 250.40 DIABETES W/ NEPHROPATHY, DM TYPE 2 02/16/2014 LOPEZ DO, TEODORO K 707.15 ULCER-FOOT/TOES 02/16/2014 [facility] 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 E 110.1 ONYCHOMYCOSIS 02/16/2014 MAKSIMLYASMANI 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 E 250.40 DIABETES W/ NEPHROPATHY, DM TYPE 2 02/16/2014 [facility] 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 E 707.15 ULCER-FOOT/TOES 02/16/2014 LOPEZ DO, TEODORO K 110.1 ONYCHOMYCOSIS 02/16/2014 LOPEZ DO, TEODORO K 250.40 DIABETES W/ NEPHROPATHY, DM TYPE 2 02/16/2014 LOPEZ DO, TEODORO K 707.15 ULCER-FOOT/TOES 02/16/2014 LOPZE DO, TEODORO K 110.1 ONYCHOMYCOSIS 02/16/2014 LOPEZ DO, TEODORO K 250.40 DIABETES W/ NEPHROPATHY, DM TYPE 2 02/16/2014 LOPEZ DO, TEODORO K 707.15 ULCER-FOOT/TOES 02/16/2014 LOPEZ DO, TEODORO K 110.1 ONYCHOMYCOSIS 02/16/2014 LOPEZ DO, TEODORO K 250.40 DIABETES W/ NEPHROPATHY, DM TYPE 2 02/16/2014 LOPEZ DO, TEODORO K 707.15 ULCER-FOOT/TOES 02/16/2014 [facility] [employer]IST, MIGUEL E 110.1 ONYCHOMYCOSIS 02/16/2014 [facility] [employer] MARKET[employer] SPECIALIST, MIGUEL E 250.40 DIABETES W/ NEPHROPATHY, DM TYPE 2 02/16/2014 [facility] [employer] MARKET[employer] SPECIALIST, MIGUEL E 707.15 ULCER-FOOT/TOES 02/16/2014 [facility] [employer] MARKET[employer] SPECIALIST, MIGUEL E 110.1 ONYCHOMYCOSIS 02/16/2014 [facility], MIGUEL E 250.40 DIABETES W/ NEPHROPATHY, DM TYPE 2 02/16/2014 [facility] [employer] MARKET[employer] SPECIALIST, MIGUEL E 707.15 ULCER-FOOT/TOES 02/16/2014 [facility] [employer]ET[employer]IST, MIGUEL E 110.1 ONYCHOMYCOSIS 02/16/2014 [facility] [employer] MARKET[employer] SPECIALIST, MIGUEL E 250.40 DIABETES W/ NEPHROPATHY, DM TYPE 2 02/16/2014 [facility] [employer]IST, MIGUEL E 707.15 ULCER-FOOT/TOES 02/16/2014 MIRLANDE PATIÑO APRN R 110.1 ONYCHOMYCOSIS 02/16/2014 MIRLANDE PATIÑO APRN 250.40 DIABETES W/ NEPHROPATHY, DM TYPE 2 02/16/2014 MIRLANDE PATIÑO APRN 707.15 ULCER-FOOT/TOES 02/16/2014 FANNY RODRIGUES MD 110.1 ONYCHOMYCOSIS 02/16/2014 FANNY RODRIGUES MD 250.40 DIABETES W/ NEPHROPATHY, DM TYPE 2 02/16/2014 FANNY RODRIGUES MD 707.15 ULCER-FOOT/TOES 02/16/2014 MIRLANDE PATIÑO APRN 110.1 ONYCHOMYCOSIS 02/16/2014 MIRLANDE PATIÑO APRN 250.40 DIABETES W/ NEPHROPATHY, DM TYPE 2 02/16/2014 MIRLANDE PATIÑO APRN R 707.15 ULCER-FOOT/TOES 02/16/2014 [facility] MIGUEL PECK E 110.1 ONYCHOMYCOSIS 02/16/2014 [facility] MIGUEL PECK E 250.40 DIABETES W/ NEPHROPATHY, DM TYPE 2 02/16/2014 [facility] MIGUEL PECK E 707.15 ULCER-FOOT/TOES 02/16/2014 LOPEZ DO, TEODORO K 110.1 ONYCHOMYCOSIS 02/16/2014 LOPEZ DO, TEODORO K 250.40 DIABETES W/ NEPHROPATHY, DM TYPE 2 02/16/2014 LOPEZ DO, TEODORO K 707.15 ULCER-FOOT/TOES 02/16/2014 MIRLANDE PATIÑO APRN R 110.1 ONYCHOMYCOSIS 02/16/2014 MIRLANDE PATIÑO APRN R 250.40 DIABETES W/ NEPHROPATHY, DM TYPE 2 02/16/2014 MIRLANDE PATIÑO APRN 707.15 ULCER-FOOT/TOES 02/16/2014 MIRLANDE PATIÑO APRN R 110.1 ONYCHOMYCOSIS 02/16/2014 MIRLANDE PATIÑO APRN R 250.40 DIABETES W/ NEPHROPATHY, DM TYPE 2 02/16/2014 MIRLANDE PATIÑO APRN 707.15 ULCER-FOOT/TOES 02/16/2014 LOPEZ DO, TEODORO K 110.1 ONYCHOMYCOSIS 02/16/2014 LOPEZ DO, TEODORO K 250.40 DIABETES W/ NEPHROPATHY, DM TYPE 2 02/16/2014 LOPEZ DO, TEODORO K 707.15 ULCER-FOOT/TOES 02/16/2014 LOPEZ DO, TEODORO K 110.1 ONYCHOMYCOSIS 02/16/2014 LOPEZ DO, TEODORO K 250.40 DIABETES W/ NEPHROPATHY, DM TYPE 2 02/16/2014 LOPEZ DO, TEODORO K 707.15 ULCER-FOOT/TOES 02/16/2014 LOPEZ DO, TEODORO K 110.1 ONYCHOMYCOSIS 02/16/2014 LOPEZ DO, TEODORO K 250.40 DIABETES W/ NEPHROPATHY, DM TYPE 2 02/16/2014 LOPEZ DO, TEODORO K 707.15 ULCER-FOOT/TOES 02/16/2014 LOPEZ DO, TEODORO K 110.1 ONYCHOMYCOSIS 02/16/2014 LOPEZ DO, TEODORO K 250.40 DIABETES W/ NEPHROPATHY, DM TYPE 2 02/16/2014 LOPEZ DO, TEODORO K 707.15 ULCER-FOOT/TOES 02/16/2014 LOPEZ DO, TEODORO K 110.1 ONYCHOMYCOSIS 02/16/2014 LOPEZ DO, TEODORO K 250.40 DIABETES W/ NEPHROPATHY, DM TYPE 2 02/16/2014 LOPEZ DO, TEODORO K 707.15 ULCER-FOOT/TOES 02/16/2014 LOPEZ DO, TEODORO K 110.1 ONYCHOMYCOSIS 02/16/2014 LOPEZ DO, TEODORO K 250.40 DIABETES W/ NEPHROPATHY, DM TYPE 2 02/16/2014 LOPEZ DO, TEODORO K 707.15 ULCER-FOOT/TOES 02/16/2014 [facility] [employer], MIGUEL E 110.1 ONYCHOMYCOSIS 02/16/2014 [facility] [employer], MIGUEL E 250.40 DIABETES W/ NEPHROPATHY, DM TYPE 2 02/16/2014 [facility] [employer]IST, MIGUEL E 707.15 ULCER-FOOT/TOES 02/16/2014 LOPEZ DO, TEODORO K 110.1 ONYCHOMYCOSIS 02/16/2014 LOPEZ DO, TEODORO K 250.40 DIABETES W/ NEPHROPATHY, DM TYPE 2 02/16/2014 LOPEZ DO, TEODORO K 707.15 ULCER-FOOT/TOES 02/16/2014 [facility] [employer]IST, MIGUEL E 110.1 ONYCHOMYCOSIS 02/16/2014 [facility] [employer] MARKET[employer] SPECIALIST, MIGUEL E 250.40 DIABETES W/ NEPHROPATHY, DM TYPE 2 02/16/2014 [facility] [employer]IST, MIGUEL E 707.15 ULCER-FOOT/TOES 02/16/2014 [facility] [employer] MARKET[employer] SPECIALIST, MIGUEL E 110.1 ONYCHOMYCOSIS 02/16/2014 [facility] [employer] MARKET[employer] SPECIALIST, MIGUEL E 250.40 DIABETES W/ NEPHROPATHY, DM TYPE 2 02/16/2014 [facility] [employer] MARKET[employer] SPECIALIST, MIGUEL E 707.15 ULCER-FOOT/TOES 02/16/2014 LOPEZ DO, TEODORO K 110.1 ONYCHOMYCOSIS 02/16/2014 LOPEZ DO, TEODORO K 250.40 DIABETES W/ NEPHROPATHY, DM TYPE 2 02/16/2014 LOPEZ DO, TEODORO K 707.15 ULCER-FOOT/TOES 02/16/2014 MIGUEL ARVIZU APRN E 110.1 ONYCHOMYCOSIS 02/16/2014 MIGUEL ARVIZU APRN E 250.40 DIABETES W/ NEPHROPATHY, DM TYPE 2 02/16/2014 MIGUEL ARVIZU APRN E 707.15 ULCER-FOOT/TOES 02/16/2014 LOPEZ DO, TEODORO K 110.1 ONYCHOMYCOSIS 02/16/2014 LOPEZ DO, TEODORO K 250.40 DIABETES W/ NEPHROPATHY, DM TYPE 2 02/16/2014 LOPEZ DO, TEODORO K 707.15 ULCER-FOOT/TOES 02/26/2014 LOPEZ DO, TEODORO K NODX NO DIAGNOSIS 02/26/2014 LOPEZ DO, TEODORO K NODX NO DIAGNOSIS 02/26/2014 LOPEZ DO, TEODORO K NODX NO DIAGNOSIS 02/26/2014 LOPEZ DO, TEODORO K NODX NO DIAGNOSIS 02/26/2014 LOPEZ DO, TEODORO K NODX NO DIAGNOSIS 02/26/2014 MIRLANDE PATIÑO APRN R NODX NO DIAGNOSIS 02/26/2014 LOPEZ DO, TEODORO K NODX NO DIAGNOSIS 02/26/2014 LOPEZ DO, TEODORO K NODX NO DIAGNOSIS 02/26/2014 LOPEZ DO, TEODORO K NODX NO DIAGNOSIS 02/26/2014 LOPEZ DO, TEODORO K NODX NO DIAGNOSIS 02/26/2014 LOPEZ DO, TEODORO K NODX NO DIAGNOSIS 02/26/2014 LOPEZ DO, TEODORO K NODX NO DIAGNOSIS 02/26/2014 [facility] NODX NO DIAGNOSIS 02/26/2014 LOPEZ DO, TEODORO K NODX NO DIAGNOSIS 02/26/2014 LOPEZ DO, TEODORO K NODX NO DIAGNOSIS 02/26/2014 LOPEZ DO, TEODORO K NODX NO DIAGNOSIS 02/26/2014 [facility] E NODX NO DIAGNOSIS 02/26/2014 MIGUEL ARVIZU APRN E NODX NO DIAGNOSIS 02/26/2014 MIGUEL ARVIZU APRN E NODX NO DIAGNOSIS 02/26/2014 MIRLANDE PATIÑO APRN NODX NO DIAGNOSIS 02/26/2014 LILIA MOSER, FANNY NODX NO DIAGNOSIS 02/26/2014 MIRLANDE PATIÑO APRN NODX NO DIAGNOSIS 02/26/2014 [facility] [employer]IST, MIGUEL E NODX NO DIAGNOSIS 02/26/2014 LOPEZ DO, TEODORO K NODX NO DIAGNOSIS 02/26/2014 MIRLANDE PATIÑO APRN NODX NO DIAGNOSIS 02/26/2014 PATIÑO PRODUCT MARKETING SPECIALISTMIRLANDE Akhtar NODX NO DIAGNOSIS 02/26/2014 LOPEZ DO, TEODORO K NODX NO DIAGNOSIS 02/26/2014 LOPEZ DO, TEODORO K NODX NO DIAGNOSIS 02/26/2014 LOPEZ DO, TEODORO K NODX NO DIAGNOSIS 02/26/2014 LOPEZ DO, TEODORO K NODX NO DIAGNOSIS 02/26/2014 LOPEZ DO, TEODORO K NODX NO DIAGNOSIS 02/26/2014 LOPEZ DO, TEODORO K NODX NO DIAGNOSIS 02/26/2014 [facility], MIGUEL E NODX NO DIAGNOSIS 02/26/2014 LOPEZ DO, TEODORO K NODX NO DIAGNOSIS 02/26/2014 [facility]ETING SPECIAL[facility], MIGUEL E NODX NO DIAGNOSIS 02/26/2014 [facility] MIGUEL E NODX NO DIAGNOSIS 02/26/2014 LOPEZ DO, TEODORO K NODX NO DIAGNOSIS 02/26/2014 [facility] PECK MIGUEL E NODX NO DIAGNOSIS 02/26/2014 LOPEZ DO, TEODORO K NODX NO DIAGNOSIS 05/14/2014 LALO DPM, MISAEL Q Ot 250.00 DIAB GEORGI WO COMPL, TYPE II OR UNSPEC TY 05/14/2014 LALO DPM, MISAEL Q Ot 443.9 PERIPH VASCULAR DIS NOS 05/14/2014 LALO DPM, MISAEL Q Ot 707.15 ULCER OF OTHER PART OF FOOT 05/14/2014 LALO DPM, MISAEL Q Ot 785.4 GANGRENE 05/14/2014 LALO DPM, MISAEL Q Ot V57.1 PHYSICAL THERAPY NEC 08/13/2014 LOPEZ DO, TEODORO K 466.0 ACUTE BRONCHITIS 08/13/2014 [facility] [employer], MIGUEL E 466.0 ACUTE BRONCHITIS 08/13/2014 LOPEZ DO, TEODORO K 466.0 ACUTE BRONCHITIS 08/13/2014 [facility] [employer]IST, MIGUEL E 466.0 ACUTE BRONCHITIS 08/13/2014 [facility] [employer]ET[employer] SPECIALIST, MIGUEL E 466.0 ACUTE BRONCHITIS 08/13/2014 LOPEZ DO, TEODORO K 466.0 ACUTE BRONCHITIS 08/13/2014 [facility] [employer]IST, MIGUEL E 466.0 ACUTE BRONCHITIS 08/13/2014 TEODROO LOPEZ DO K 466.0 ACUTE BRONCHITIS 10/25/2014 TEODORO LOPEZ DO K 443.9 PERIPHERAL VASCULAR DISEASE UNSPECIFIED 10/25/2014 [facility] MIGUEL E 443.9 PERIPHERAL VASCULAR DISEASE UNSPECIFIED 10/25/2014 [facility] [employer]ET[employer]IST, MIGUEL E 443.9 PERIPHERAL VASCULAR DISEASE UNSPECIFIED 10/25/2014 TEODORO LOPEZ DO K 443.9 PERIPHERAL VASCULAR DISEASE UNSPECIFIED 10/25/2014 MAKSIMPAUL PR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 E 443.9 PERIPHERAL VASCULAR DISEASE UNSPECIFIED 10/25/2014 TEODORO LOPEZ DO K 443.9 PERIPHERAL VASCULAR DISEASE UNSPECIFIED 12/13/2014 MAKSIMPAUL PRODUCT MARKETING SPECIALIST, MIGUEL E NODX NO DIAGNOSIS 12/13/2014 TEODORO LOPEZ DO NODX NO DIAGNOSIS 06/14/2015 Ot 681.10 06/14/2015 Ot 785.4 06/14/2015 Ot V72.63 06/14/2015 Ot V74.8 06/14/2015 Ot 250.00 06/14/2015 Ot 707.15 06/14/2015 EM MOSER, LUDMILA A Ot 185 06/14/2015 LILIA MOSER, [place] E Ot 185 06/14/2015 LILIA MOSER, [place] E Ot 715.31 06/14/2015 LILIA MOSER, [place] E Ot 726.10 06/14/2015 LILIA MOSER, [place] E Ot 727.61 06/14/2015 LILIA MOSER, [place] E Ot 733.90 06/14/2015 Ot 185 06/14/2015 LALO DPM, MISAEL Q Ot 707.10 06/14/2015 LALO DPM, MISAEL Q Ot 785.4 06/14/2015 LALO DPM, MISAEL Q Ot V72.84 06/14/2015 LALO DPM, MISAEL Q Ot V74.8 06/28/2015 LALO DPM, MISAEL Q Ot 707.10 06/28/2015 LALO DPM, MISAEL Q Ot 785.4 06/28/2015 LALO DPM, MISAEL Q Ot V72.84 06/28/2015 LALO DPM, MISAEL Q Ot V74.8 06/28/2015 LALO DPM, MISAEL Q Ot G57.51 06/28/2015 LALO DPM, MISAEL Q Ot M76.821 06/28/2015 LALO DPM, MISAEL Q Ot M86.9 06/28/2015 LALO DPM, MISAEL Q Ot Z01.818 06/28/2015 LALO DPM, MISAEL Q Ot M86.9 OSTEOMYELITIS, UNSPECIFIED 06/28/2015 LALO DPM, MISAEL Q Ot Z79.899 OTHER DATA MIGRATION CONSULTANT (CURRENT) DRUG THERAPY 07/04/2015 LALO DPM, MISAEL Q Ot G57.51 07/04/2015 LALO DPM, MISAEL Q Ot M76.821 07/19/2015 LALO DPM, MISAEL Q Ot G57.51 07/19/2015 LALO DPM, MISAEL Q Ot M76.821 08/02/2015 LALO DPM, MISAEL Q Ot 707.10 08/02/2015 LALO DPM, MISAEL Q Ot 785.4 08/02/2015 LALO DPM, MISAEL Q Ot V72.84 08/02/2015 LALO DPM, MISAEL Q Ot V74.8 08/02/2015 LALO DPM, MISAEL Q Ot G57.51 08/02/2015 LALO DPM, MISAEL Q Ot M76.821 08/02/2015 LALO DPM, MISAEL Q Ot M86.9 08/02/2015 LALO DPM, MISAEL Q Ot Z01.818 08/09/2015 Ot 681.10 08/09/2015 Ot 785.4 08/09/2015 Ot V72.63 08/09/2015 Ot V74.8 08/09/2015 Ot 250.00 08/09/2015 Ot 707.15 08/09/2015 EM MOSER, LUDMILA A Ot 185 08/09/2015 LILIA MOSER, [place] Aranda Ot 185 08/09/2015 LILIA MOSER, [place] Aranda Ot 715.31 08/09/2015 [place] RODRIGUES MD Ot 726.10 08/09/2015 LILIA MOSER, [place] Aranda Ot 727.61 08/09/2015 LILIA MOSER, [place] Aranda Ot 733.90 08/09/2015 Ot 185 08/09/2015 LALO DPM, MISAEL Q Ot 707.10 08/09/2015 LALO DPM, MISAEL Q Ot 785.4 08/09/2015 LALO DPM, MISAEL Q Ot V72.84 08/09/2015 LALO DPM, MISAEL Q Ot V74.8 08/09/2015 LALO DPM, MISAEL Q Ot G57.51 08/09/2015 LALO DPM, MISAEL Q Ot M76.821 08/09/2015 LALO DPM, MISAEL Q Ot M86.9 08/09/2015 LALO DPM, MISAEL Q Ot Z01.818 08/09/2015 LALO DPM, MISAEL Q Ot 707.10 08/09/2015 LALO DPM, MISAEL Q Ot 785.4 08/09/2015 LALO DPM, MISAEL Q Ot V72.84 08/09/2015 LALO DPM, MISAEL Q Ot V74.8 08/09/2015 LALO DPM, MISAEL Q Ot G57.51 08/09/2015 LALO DPM, MISAEL Q Ot M76.821 08/09/2015 LALO DPM, MISAEL Q Ot M86.9 08/09/2015 LALO DPM, MISAEL Q Ot Z01.818 09/03/2015 ALEXEI MOSER, MIRLANDE P Ot H93.19 09/03/2015 ALEXEI MOSER, MIRLANDE P Ot I65.22 09/03/2015 ALEXEI MOSER, MIRLANDE P Ot R49.0 09/03/2015 ALEXEI MOSER, MIRLANDE P Ot Z87.891 09/13/2015 ALEXEI MOSER, MIRLANDE P Ot H93.19 09/13/2015 ALEXEI MOSER, MIRLANDE P Ot I65.22 09/13/2015 ALEXEI MOSER, MIRLANDE P Ot R49.0 09/13/2015 ALEXEI MOSER, MIRLANDE P Ot Z87.891 09/15/2017 ALEXEI MOSER, MIRLANDE Leon Ot H93.19 TINNITUS, UNSPECIFIED EAR 09/15/2017 ALEXEI MOSER, MIRLANDE P Ot 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 09/15/2017 ALEXEI MOSER, MIRLANDE P Ot R49.0 DYSPHONIA 09/15/2017 ALEXEI MOSER, MIRLANDE P Ot Z87.891 PERSONAL HISTORY OF NICOTINE DEPENDENCE 09/16/2017 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 09/17/2017 PATRICIA CERVANTES DO Ot K21.9 GASTRO-ESOPHAGEAL REFLUX DISEASE WITHOUT 09/17/2017 PATRICIA CERVANTES DO Ot K52.9 NONINFECTIVE GASTROENTERITIS AND COLITIS 09/17/2017 PATRICIA CERVANTES DO Ot Z01.818 ENCOUNTER FOR OTHER PREPROCEDURAL EXAMIN 09/17/2017 EM MOSER, LUDMILA A 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 09/17/2017 LILIA MOSER, [place] Aranda 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 09/17/2017 LILIA MOSER, [place] E Ot 715.31 LOC OSTEOARTH NOS-SHLDER 09/17/2017 LILIA MOSER, [place] Aranda Ot 726.10 BURSAE TENDONS DIS SHLDER NOS 09/17/2017 LILIA MOSER, [place] Aranda Ot 727.61 ROTATOR CUFF RUPTURE 09/17/2017 LILIA MOSER, [place] E Ot 733.90 BONE CARTILAGE DIS NOS 09/17/2017 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 09/17/2017 LALO DPM, MISAEL Q Ot 707.10 ULCER OF LOWER LIMB NOS 09/17/2017 LALO DPM, MISAEL Q Ot 785.4 GANGRENE 09/17/2017 LALO DPM, MISAEL Q Ot V72.84 EXAM PRE-OPERATIVE NOS 09/17/2017 LALO DPM, MISAEL Q Ot V74.8 SCREEN-BACTERIAL DIS NEC 09/17/2017 LALO DPM, MISAEL Q Ot G57.51 TARSAL TUNNEL SYNDROME, RIGHT LOWER LIMB 09/17/2017 LALO DPM, MISAEL Q Ot M76.821 POSTERIOR TIBIAL TENDINITIS, RIGHT LEG 09/17/2017 LALO DPM, MISAEL Q Ot M86.9 OSTEOMYELITIS, UNSPECIFIED 09/17/2017 LALO DPM, MISAEL Q Ot Z01.818 ENCOUNTER FOR OTHER PREPROCEDURAL EXAMIN 09/17/2017 MIRLANDE LINDA MD Ot H93.19 TINNITUS, UNSPECIFIED EAR 09/17/2017 MIRLANDE LINDA MD Ot 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 09/17/2017 MIRLANDE LINDA MD Ot R49.0 DYSPHONIA 09/17/2017 MIRLANDE LINDA MD Ot Z87.891 PERSONAL HISTORY OF NICOTINE DEPENDENCE 09/17/2017 PATRICIA CERVANTES DO Ot K21.9 GASTRO-ESOPHAGEAL REFLUX DISEASE WITHOUT 09/17/2017 NARAAUSTIN DO PATRICIA B Ot K52.9 NONINFECTIVE GASTROENTERITIS AND COLITIS 09/17/2017 NARAAUSTIN DO PATRICIA B Ot Z01.818 ENCOUNTER FOR OTHER PREPROCEDURAL EXAMIN 09/22/2017 HELEN BHAVNA HAMMIC B Ot K21.9 GASTRO-ESOPHAGEAL REFLUX DISEASE WITHOUT 09/22/2017 HELEN HAMM PATRICIA B Ot K52.9 NONINFECTIVE GASTROENTERITIS AND COLITIS 09/22/2017 HELEN DO PATRICIA B Ot Z01.818 ENCOUNTER FOR OTHER PREPROCEDURAL EXAMIN 09/22/2017 EM MOSER, LUDMILA A 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 09/22/2017 LILIA MOSER, [place] E 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 09/22/2017 LILIA MOSER, [place] E Ot 715.31 LOC OSTEOARTH NOS-SHLDER 09/22/2017 LILIA MOSER, [place] E Ot 726.10 BURSAE TENDONS DIS SHLDER NOS 09/22/2017 LILIA MOSER, [place] E Ot 727.61 ROTATOR CUFF RUPTURE 09/22/2017 LILIA MOSER, [place] E Ot 733.90 BONE CARTILAGE DIS NOS 09/22/2017 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 09/22/2017 LALO DPM, MISAEL Q Ot 707.10 ULCER OF LOWER LIMB NOS 09/22/2017 LALO DPM, MISAEL Q Ot 785.4 GANGRENE 09/22/2017 LALO DPM, MISAEL Q Ot V72.84 EXAM PRE-OPERATIVE NOS 09/22/2017 LALO DPM, MISAEL Q Ot V74.8 SCREEN-BACTERIAL DIS NEC 09/22/2017 LALO DPM, MISAEL Q Ot G57.51 TARSAL TUNNEL SYNDROME, RIGHT LOWER LIMB 09/22/2017 LALO DPM, MISAEL Q Ot M76.821 POSTERIOR TIBIAL TENDINITIS, RIGHT LEG 09/22/2017 LALO DPM, MISAEL Q Ot M86.9 OSTEOMYELITIS, UNSPECIFIED 09/22/2017 LALO DPM, MISAEL Q Ot Z01.818 ENCOUNTER FOR OTHER PREPROCEDURAL EXAMIN 09/22/2017 ALEXEI MOSER, MIRLANDE Leon Ot H93.19 TINNITUS, UNSPECIFIED EAR 09/22/2017 ALEXEI MOSER, MIRLANDE Leon Ot 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 09/22/2017 ALEXEI MOSER, MIRLANDE Leon Ot R49.0 DYSPHONIA 09/22/2017 ALEXEI MOSER, MIRLANDE Leon Ot Z87.891 PERSONAL HISTORY OF NICOTINE DEPENDENCE 09/22/2017 PATRICIA CERVANTES DO Ot K21.9 GASTRO-ESOPHAGEAL REFLUX DISEASE WITHOUT 09/22/2017 PATRICIA CERVANTES DO Ot K52.9 NONINFECTIVE GASTROENTERITIS AND COLITIS 09/22/2017 PATRICIA CERVANTES DO Ot Z01.818 ENCOUNTER FOR OTHER PREPROCEDURAL EXAMIN 09/22/2017 PATRICIA CERVANTES DO Ot D12.4 BENIGN NEOPLASM OF DESCENDING COLON 09/22/2017 PATRICIA CERVANTES DO Ot E11.40 TYPE 2 DIABETES MELLITUS WITH DIABETIC N 09/22/2017 PATRICIA CERVANTES DO Ot E78.5 HYPERLIPIDEMIA, UNSPECIFIED 09/22/2017 PATRICIA CERVANTES DO Ot F17.210 NICOTINE DEPENDENCE, CIGARETTES, UNCOMPL 09/22/2017 PATRICIA CERVANTES DO Ot I10 ESSENTIAL (PRIMARY) HYPERTENSION 09/22/2017 PATRICIA CERVANTES DO Ot I25.10 ATHSCL HEART DISEASE OF [place] CORONARY 09/22/2017 PATRICIA CERVANTES DO Ot J44.9 CHRONIC OBSTRUCTIVE PULMONARY DISEASE, U 09/22/2017 PATRICIA CERVANTES DO Ot K21.9 GASTRO-ESOPHAGEAL REFLUX DISEASE WITHOUT 09/22/2017 PATRICIA CERVANTES DO Ot K29.70 GASTRITIS, UNSPECIFIED, WITHOUT BLEEDING 09/22/2017 PATRICIA CERVANTES DO Ot K44.9 DIAPHRAGMATIC HERNIA WITHOUT OBSTRUCTION 09/22/2017 PATRICIA CERVANTES DO Ot K64.8 OTHER HEMORRHOIDS 09/22/2017 PATRICIA CERVANTES DO Ot Z12.11 ENCOUNTER FOR SCREENING FOR MALIGNANT NE 09/22/2017 PATRICIA CERVANTES DO Ot Z79.4 DATA MIGRATION CONSULTANT (CURRENT) USE OF INSULIN 09/22/2017 PATRICIA CERVANTES DO Ot Z79.82 ALF (CURRENT) USE OF ASPIRIN 09/22/2017 PATRICIA CERVANTES DO Ot Z79.899 OTHER DATA MIGRATION CONSULTANT (CURRENT) DRUG THERAPY 09/22/2017 PATRICIA CERVANTES DO Ot Z85.46 PERSONAL HISTORY OF MALIGNANT NEOPLASM O 09/22/2017 PATRICIA CERVANTES DO Ot Z86.73 PRSNL HX OF TIA (TIA), AND CEREB INFRC W 09/22/2017 PATRICIA CERVANTES DO B Ot Z95.5 PRESENCE OF CORONARY ANGIOPLASTY IMPLANT 09/24/2017 PATRICIA CERVANTES DO Ot D12.4 BENIGN NEOPLASM OF DESCENDING COLON 09/24/2017 BHAVNA CERVANTES DOIC B Ot E11.40 TYPE 2 DIABETES MELLITUS WITH DIABETIC N 09/24/2017 PATRICIA CERVANTES DO B Ot E78.5 HYPERLIPIDEMIA, UNSPECIFIED 09/24/2017 PATRICIA CERVANTES DO Ot F17.210 NICOTINE DEPENDENCE, CIGARETTES, UNCOMPL 09/24/2017 BHAVNA CERVANTES DOIC B Ot I10 ESSENTIAL (PRIMARY) HYPERTENSION 09/24/2017 BHAVNA CERVANTES DOIC B Ot I25.10 ATHSCL HEART DISEASE OF [place] CORONARY 09/24/2017 PATRICIA CERVANTES DO Ot J44.9 CHRONIC OBSTRUCTIVE PULMONARY DISEASE, U 09/24/2017 PATRICIA CERVANTES DO B Ot K21.9 GASTRO-ESOPHAGEAL REFLUX DISEASE WITHOUT 09/24/2017 PATRICIA CERVANTES DO B Ot K29.70 GASTRITIS, UNSPECIFIED, WITHOUT BLEEDING 09/24/2017 PATRICIA CERVANTES DO B Ot K44.9 DIAPHRAGMATIC HERNIA WITHOUT OBSTRUCTION 09/24/2017 PATRICIA CERVANTES DO B Ot K64.8 OTHER HEMORRHOIDS 09/24/2017 PATRICIA CERVANTES DO Ot Z12.11 ENCOUNTER FOR SCREENING FOR MALIGNANT NE 09/24/2017 PATRICIA CERVANTES DO Ot Z79.4 DATA MIGRATION CONSULTANT (CURRENT) USE OF INSULIN 09/24/2017 PATRICIA CERVANTES DO B Ot Z79.82 DATA MIGRATION CONSULTANT (CURRENT) USE OF ASPIRIN 09/24/2017 PATRICIA CERVANTES DO Ot Z79.899 OTHER DATA MIGRATION CONSULTANT (CURRENT) DRUG THERAPY 09/24/2017 PATRICIA CERVANTES DO B Ot Z85.46 PERSONAL HISTORY OF MALIGNANT NEOPLASM O 09/24/2017 PATRICIA CERVANTES DO B Ot Z86.73 PRSNL HX OF TIA (TIA), AND CEREB INFRC W 09/24/2017 PATRICIA CERVANTES DO B Ot Z95.5 PRESENCE OF CORONARY ANGIOPLASTY IMPLANT 09/30/2017 PATRICIA CERVANTES DO Ot D12.4 BENIGN NEOPLASM OF DESCENDING COLON 09/30/2017 PATRICIA CERVANTES DO B Ot E11.40 TYPE 2 DIABETES MELLITUS WITH DIABETIC N 09/30/2017 BHAVNA CERVANTES DOIC B Ot E78.5 HYPERLIPIDEMIA, UNSPECIFIED 09/30/2017 HELEN HAMM PATRICIA Hernandez Ot F17.210 NICOTINE DEPENDENCE, CIGARETTES, UNCOMPL 09/30/2017 HELEN PATRICIA HAMM Ot I10 ESSENTIAL (PRIMARY) HYPERTENSION 09/30/2017 HELEN HAMM PATRICIA Hernandez Ot I25.10 ATHSCL HEART DISEASE OF [place] CORONARY 09/30/2017 HELEN HAMMPATRICIA Ot J44.9 CHRONIC OBSTRUCTIVE PULMONARY DISEASE, U 09/30/2017 NARAAUSTIN PATRICIA HAMM Ot K21.9 GASTRO-ESOPHAGEAL REFLUX DISEASE WITHOUT 09/30/2017 HELEN PATRICIA HAMM Ot K29.70 GASTRITIS, UNSPECIFIED, WITHOUT BLEEDING 09/30/2017 NARAAUSTIN PATRICIA HAMM Ot K44.9 DIAPHRAGMATIC HERNIA WITHOUT OBSTRUCTION 09/30/2017 NARAAUSTIN PATRICIA HAMM Ot K64.8 OTHER HEMORRHOIDS 09/30/2017 HELEN DO PATRICIA B Ot Z12.11 ENCOUNTER FOR SCREENING FOR MALIGNANT NE 09/30/2017 NARAAUSTIN PATRICIA HAMM Ot Z79.4 DATA MIGRATION CONSULTANT (CURRENT) USE OF INSULIN 09/30/2017 NARAAUSTIN PATRICIA HAMM Ot Z79.82 DATA MIGRATION CONSULTANT (CURRENT) USE OF ASPIRIN 09/30/2017 NARAAUSTIN PATRICIA HAMM Ot Z79.899 OTHER DATA MIGRATION CONSULTANT (CURRENT) DRUG THERAPY 09/30/2017 NARAAUSTIN PATRICIA HAMM Ot Z85.46 PERSONAL HISTORY OF MALIGNANT NEOPLASM O 09/30/2017 NARAAUSTIN DO PATRICIA B Ot Z86.73 PRSNL HX OF TIA (TIA), AND CEREB INFRC W 09/30/2017 NARAAUSTIN PATRICIA HAMM Ot Z95.5 PRESENCE OF CORONARY ANGIOPLASTY IMPLANT 05/05/2018 EM MOSER, LUDMILA A 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 05/05/2018 LILIA MOSER, [place] Aranda 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 05/05/2018 LILIA MOSER, [place] Aranda Ot 715.31 LOC OSTEOARTH NOS-SHLDER 05/05/2018 LILIA MOSER, [place] Aranda Ot 726.10 BURSAE TENDONS DIS SHLDER NOS 05/05/2018 [place] RODRIGUES MD Ot 727.61 ROTATOR CUFF RUPTURE 05/05/2018 LILIA MOSER, [place] Aranda Ot 733.90 BONE CARTILAGE DIS NOS 05/05/2018 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 05/05/2018 LALO DPM, MISAEL Q Ot 707.10 ULCER OF LOWER LIMB NOS 05/05/2018 LALO DPM, MISAEL Q Ot 785.4 GANGRENE 05/05/2018 LALO DPM, MISAEL Q Ot V72.84 EXAM PRE-OPERATIVE NOS 05/05/2018 LALO DPM, MISAEL Q Ot V74.8 SCREEN-BACTERIAL DIS NEC 05/05/2018 LALO DPM, MISAEL Q Ot G57.51 TARSAL TUNNEL SYNDROME, RIGHT LOWER LIMB 05/05/2018 LALO DPM, MISAEL Q Ot M76.821 POSTERIOR TIBIAL TENDINITIS, RIGHT LEG 05/05/2018 LALO DPM, MISAEL Q Ot M86.9 OSTEOMYELITIS, UNSPECIFIED 05/05/2018 LALO DPM, MISAEL Q Ot Z01.818 ENCOUNTER FOR OTHER PREPROCEDURAL EXAMIN 05/05/2018 ALEXEI MOSER, MIRLANDE Leon Ot H93.19 TINNITUS, UNSPECIFIED EAR 05/05/2018 ALEXEI MOSER, MIRLANDE Leon Ot 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 05/05/2018 ALEXEI MOSER, MIRLANDE Leon Ot R49.0 DYSPHONIA 05/05/2018 ALEXEI MOSER, MIRLANDE Leon Ot Z87.891 PERSONAL HISTORY OF NICOTINE DEPENDENCE 05/05/2018 PATRICIA CERVANTES DO Ot K21.9 GASTRO-ESOPHAGEAL REFLUX DISEASE WITHOUT 05/05/2018 PATRICIA CERVANTES DO Ot K52.9 NONINFECTIVE GASTROENTERITIS AND COLITIS 05/05/2018 PATRICIA CERVANTES DO Ot Z01.818 ENCOUNTER FOR OTHER PREPROCEDURAL EXAMIN 06/16/2018 EM MOSER, LUDMILA A 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 06/16/2018 LILIA MOSER, [place] Aranda 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 06/16/2018 LILIA MOSER, [place] Aranda Ot 715.31 LOC OSTEOARTH NOS-SHLDER 06/16/2018 LILIA MOSER, [place] Aranda Ot 726.10 BURSAE TENDONS DIS SHLDER NOS 06/16/2018 LILIA MOSER, [place] Aranda Ot 727.61 ROTATOR CUFF RUPTURE 06/16/2018 LILIA MOSER, [place] Aranda Ot 733.90 BONE CARTILAGE DIS NOS 06/16/2018 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 06/16/2018 LALO DPM, MISAEL Q Ot 707.10 ULCER OF LOWER LIMB NOS 06/16/2018 LALO DPM, MISAEL Q Ot 785.4 GANGRENE 06/16/2018 LALO DPM, MISAEL Q Ot V72.84 EXAM PRE-OPERATIVE NOS 06/16/2018 LALO DPM, MISAEL Q Ot V74.8 SCREEN-BACTERIAL DIS NEC 06/16/2018 LALO DPM, MISAEL Q Ot G57.51 TARSAL TUNNEL SYNDROME, RIGHT LOWER LIMB 06/16/2018 LALO DPM, MISAEL Q Ot M76.821 POSTERIOR TIBIAL TENDINITIS, RIGHT LEG 06/16/2018 LALO DPM, MISAEL Q Ot M86.9 OSTEOMYELITIS, UNSPECIFIED 06/16/2018 LALO DPM, MISAEL Q Ot Z01.818 ENCOUNTER FOR OTHER PREPROCEDURAL EXAMIN 06/16/2018 ALEXEI MOSER, MIRLANDE Leon Ot H93.19 TINNITUS, UNSPECIFIED EAR 06/16/2018 ALEXEI MOSER, MIRLANDE Leon Ot 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 06/16/2018 ALEXEI MOSER, MIRLANDE Leon Ot R49.0 DYSPHONIA 06/16/2018 ALEXEI MOSER, MIRLANDE Leon Ot Z87.891 PERSONAL HISTORY OF NICOTINE DEPENDENCE 06/16/2018 PATRICIA CERVANTES DO Ot K21.9 GASTRO-ESOPHAGEAL REFLUX DISEASE WITHOUT 06/16/2018 PATRICIA CERVANTES DO Ot K52.9 NONINFECTIVE GASTROENTERITIS AND COLITIS 06/16/2018 PATRICIA CERVANTES DO Ot Z01.818 ENCOUNTER FOR OTHER PREPROCEDURAL EXAMIN 06/20/2018 EM MOSER, LUDMILA A 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 06/20/2018 LILIA MOSER, [place] Aranda 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 06/20/2018 LILIA MOSER, [place] Aranda Ot 715.31 LOC OSTEOARTH NOS-SHLDER 06/20/2018 LILIA MOSER, [place] Aranda Ot 726.10 BURSAE TENDONS DIS SHLDER NOS 06/20/2018 LILIA MOSER, [place] Aranda Ot 727.61 ROTATOR CUFF RUPTURE 06/20/2018 LILIA MOSER, [place] Aranda Ot 733.90 BONE CARTILAGE DIS NOS 06/20/2018 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 06/20/2018 LALO DPM, MISAEL Q Ot 707.10 ULCER OF LOWER LIMB NOS 06/20/2018 LALO DPM, MISAEL Q Ot 785.4 GANGRENE 06/20/2018 LALO DPM, MISAEL Q Ot V72.84 EXAM PRE-OPERATIVE NOS 06/20/2018 LALO DPM, MISAEL Q Ot V74.8 SCREEN-BACTERIAL DIS NEC 06/20/2018 LALO DPM, MISAEL Q Ot G57.51 TARSAL TUNNEL SYNDROME, RIGHT LOWER LIMB 06/20/2018 LALO DPM, MISAEL Q Ot M76.821 POSTERIOR TIBIAL TENDINITIS, RIGHT LEG 06/20/2018 LALO DPM, MISAEL Q Ot M86.9 OSTEOMYELITIS, UNSPECIFIED 06/20/2018 LALO DPM, MISAEL Q Ot Z01.818 ENCOUNTER FOR OTHER PREPROCEDURAL EXAMIN 06/20/2018 ALEXEI MOSER, MIRLANDE Leon Ot H93.19 TINNITUS, UNSPECIFIED EAR 06/20/2018 ALEXEI MOSER, MIRLANDE Leon Ot 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 06/20/2018 ALEXEI MOSER, MIRLANDE Leon Ot R49.0 DYSPHONIA 06/20/2018 ALEXEI MOSER, MIRLANDE Leon Ot Z87.891 PERSONAL HISTORY OF NICOTINE DEPENDENCE 06/20/2018 PATRICIA CERVANTES DO Ot K21.9 GASTRO-ESOPHAGEAL REFLUX DISEASE WITHOUT 06/20/2018 PATRICIA CERVANTES DO Ot K52.9 NONINFECTIVE GASTROENTERITIS AND COLITIS 06/20/2018 PATRICIA CERVANTES DO, Ot Z01.818 ENCOUNTER FOR OTHER PREPROCEDURAL EXAMIN Procedures Code Description [place] [address] A1C (IN-HOUSE) 09/27/2012 40824 H PYLORI (IN-HOUSE) 10/05/2012 21194 A1C (IN-HOUSE) 01/03/2013 45877 ROUTINE VENIPUNCTURE 01/04/2013 01852 CMP 01/04/2013 70951 LIPID PANEL 01/04/2013 21661 TESTOSTERONE PANEL (FREE, TOTAL, and SHBG) 01/04/2013 09616 CBC 01/04/2013 61204 A1C (IN-HOUSE) 07/20/2013 17395 ROUTINE VENIPUNCTURE 07/31/2013 80949 LIPID PANEL 07/31/2013 33118 A1C (IN-HOUSE) 12/20/2013 PODIATRY MISAEL MAY 12/20/2013 65407 CULTURE WOUND (AEROBIC) 01/17/2014 03320 CULTURE WOUND (AEROBIC) 02/02/2014 43151 DEBRIDE NAIL 1-5 02/16/2014 95206 XRAY FOOT RIGHT COMP MIN 3 VIEWS 02/16/2014 41510 DEBRIDE SKIN TISSUE 02/23/2014 96981 DEBRIDE SKIN TISSUE 02/23/2014 88634 NO CHARGE 02/26/2014 96579 NO CHARGE 02/27/2014 55473 NO CHARGE 02/28/2014 75420 NO CHARGE 03/01/2014 51538 NO CHARGE 03/07/2014 00693 NO CHARGE 03/09/2014 35103 NO CHARGE 03/13/2014 09712 NO CHARGE 03/14/2014 42885 NO CHARGE 03/16/2014 75640 NO CHARGE 03/20/2014 78291 NO CHARGE 03/22/2014 30684 ROUTINE VENIPUNCTURE 03/26/2014 33426 A1C (IN-HOUSE) 03/26/2014 36689 CMP 03/26/2014 85004 LIPID PANEL 03/26/2014 49792 TSH 03/26/2014 65746 CBC 03/26/2014 31053 NO CHARGE 03/27/2014 30251 NO CHARGE 04/12/2014 67027 NO CHARGE 04/13/2014 95665 NO CHARGE 04/16/2014 96579 NO CHARGE 04/17/2014 01109 NO CHARGE 04/19/2014 88104 NO CHARGE 04/23/2014 57852 NO CHARGE 04/25/2014 64094 NO CHARGE 04/27/2014 21933 NO CHARGE 05/02/2014 81424 NO CHARGE 05/02/2014 23745 NO CHARGE 2014 71974 NO CHARGE 05/08/2014 29881 NO CHARGE 05/08/2014 40962 NO CHARGE 05/11/2014 34114 NO CHARGE 05/11/2014 32227 NO CHARGE 05/30/2014 73727 NO CHARGE 06/05/2014 37728 NO CHARGE 06/05/2014 30744 NO CHARGE 06/08/2014 00302 A1C (IN-HOUSE) 08/13/2014 52130 GLUCOSE FINGER STICK 12/10/2014 34530 GLUCOSE FINGER STICK 12/12/2014 67146 NO CHARGE 12/13/2014 87468 NO CHARGE 12/14/2014 Results Test Result Range CBC - 06/25/17 13:01 WHITE BLOOD CELL COUNT 8.7 Thousand/uL 3.8-10.8 RED BLOOD CELL COUNT 4.28 Million/uL 4.20-5.80 HEMOGLOBIN 11.9 g/dL 13.2-17.1 HEMATOCRIT 36.1 % 38.5-50.0 MCV 84.3 fL 80.0-100.0 MCH 27.8 pg 27.0-33.0 MCHC 33.0 g/dL 32.0-36.0 RDW 15.1 % 11.0-15.0 PLATELET COUNT 246 Thousand/uL 140-400 MPV 10.2 fL 7.5-12.5 ABSOLUTE NEUTROPHILS 6368 cells/uL 4275-9567 ABSOLUTE LYMPHOCYTES 1523 cells/uL 850-3900 ABSOLUTE MONOCYTES 548 cells/uL 200-950 ABSOLUTE EOSINOPHILS 209 cells/uL 15-500 ABSOLUTE BASOPHILS 52 cells/uL 0-200 NEUTROPHILS 73.2 % NRG LYMPHOCYTES 17.5 % NRG MONOCYTES 6.3 % NRG EOSINOPHILS 2.4 % NRG BASOPHILS 0.6 % NRG CBC - 09/03/17 10:59 WHITE BLOOD CELL COUNT 8.6 Thousand/uL 3.8-10.8 RED BLOOD CELL COUNT 4.36 Million/uL 4.20-5.80 HEMOGLOBIN 12.6 g/dL 13.2-17.1 HEMATOCRIT 37.6 % 38.5-50.0 MCV 86.2 fL 80.0-100.0 MCH 28.9 pg 27.0-33.0 MCHC 33.5 g/dL 32.0-36.0 RDW 13.1 % 11.0-15.0 PLATELET COUNT 208 Thousand/uL 140-400 MPV 10.5 fL 7.5-12.5 ABSOLUTE NEUTROPHILS 5599 cells/uL 2136-8534 ABSOLUTE LYMPHOCYTES 2098 cells/uL 850-3900 ABSOLUTE MONOCYTES 688 cells/uL 200-950 ABSOLUTE EOSINOPHILS 172 cells/uL 15-500 ABSOLUTE BASOPHILS 43 cells/uL 0-200 NEUTROPHILS 65.1 % NRG LYMPHOCYTES 24.4 % NRG MONOCYTES 8.0 % NRG EOSINOPHILS 2.0 % NRG BASOPHILS 0.5 % NRG Capillary blood glucose measurement by glucometer (mass/volume) - 09/22/17 10: 46 Capillary blood glucose measurement by glucometer (mass/volume) 92 mg/dL 70-110 CMP - 09/27/17 13:29 GLUCOSE 75 mg/dL 65-99 UREA NITROGEN (BUN) 19 mg/dL 7-25 CREATININE 1.22 mg/dL 0.70-1.18 eGFR NON-AFR. IVORIAN 60 mL/min/1.73m2 > OR=60 eGFR 69 mL/min/1.73m2 > OR=60 BUN/CREATININE RATIO 16 (calc) 6-22 SODIUM 142 mmol/L 135-146 POTASSIUM 4.1 mmol/L 3.5-5.3 CHLORIDE 105 mmol/L 98-110 CARBON DIOXIDE 27 mmol/L 20-31 CALCIUM 9.5 mg/dL 8.6-10.3 PROTEIN, TOTAL 7.1 g/dL 6.1-8.1 ALBUMIN 4.5 g/dL 3.6-5.1 GLOBULIN 2.6 g/dL (calc) 1.9-3.7 ALBUMIN/GLOBULIN RATIO 1.7 (calc) 1.0-2.5 BILIRUBIN, TOTAL 0.7 mg/dL 0.2-1.2 ALKALINE PHOSPHATASE 101 U/L 40-115 AST 9 U/L 10-35 ALT 11 U/L 9-46 CBC - 09/27/17 13:29 WHITE BLOOD CELL COUNT 8.6 Thousand/uL 3.8-10.8 RED BLOOD CELL COUNT 4.56 Million/uL 4.20-5.80 HEMOGLOBIN 13.2 g/dL 13.2-17.1 HEMATOCRIT 39.7 % 38.5-50.0 MCV 87.1 fL 80.0-100.0 MCH 28.9 pg 27.0-33.0 MCHC 33.2 g/dL 32.0-36.0 RDW 13.4 % 11.0-15.0 PLATELET COUNT 248 Thousand/uL 140-400 MPV 10.1 fL 7.5-12.5 ABSOLUTE NEUTROPHILS 5083 cells/uL 4471-4674 ABSOLUTE LYMPHOCYTES 2485 cells/uL 850-3900 ABSOLUTE MONOCYTES 740 cells/uL 200-950 ABSOLUTE EOSINOPHILS 224 cells/uL 15-500 ABSOLUTE BASOPHILS 69 cells/uL 0-200 NEUTROPHILS 59.1 % NRG LYMPHOCYTES 28.9 % NRG MONOCYTES 8.6 % NRG EOSINOPHILS 2.6 % NRG BASOPHILS 0.8 % NRG THYROID ANALYZER - 01/11/18 10:42 TSH 2.57 mIU/L 0.40-4.50 DIFFERENTIAL, MANUAL - 01/11/18 10:42 ABSOLUTE NEUTROPHILS 4362 cells/uL 3421-9590 ABSOLUTE MONOCYTES 707 cells/uL 200-950 ABSOLUTE EOSINOPHILS 213 cells/uL 15-500 ABSOLUTE BASOPHILS 68 cells/uL 0-200 NEUTROPHILS 57.4 % NRG LYMPHOCYTES 29.6 % NRG MONOCYTES 9.3 % NRG EOSINOPHILS 2.8 % NRG BASOPHILS 0.9 % NRG ABSOLUTE LYMPHOCYTES 2250 cells/uL 850-3900 CBC MORPHOLOGY NORMAL Methicillin resistant Staphylococcus aureus (MRSA) screening culture - 14:50 Methicillin resistant Staphylococcus aureus (MRSA) screening culture NEG NRG Capillary blood glucose measurement by glucometer (mass/volume) - 06/20/18 08: 51 Capillary blood glucose measurement by glucometer (mass/volume) 237 mg/dL 70-110 Whole blood basic metabolic panel - 06/20/18 08:56 Serum or plasma sodium measurement (moles/volume) 138 mmol/L 135-145 Serum or plasma potassium measurement (moles/volume) 4.6 mmol/L 3.6-5.0 Serum or plasma chloride measurement (moles/volume) 108 mmol/L 98-107 Carbon dioxide 21 mmol/L 21-32 Serum or plasma anion gap determination (moles/volume) 9 mmol/L 5-14 Serum or plasma urea nitrogen measurement (mass/volume) 19 mg/dL 7-18 Serum or plasma creatinine measurement (mass/volume) 1.27 mg/dL 0.60-1.30 Serum or plasma urea nitrogen/creatinine mass ratio 15 NRG Serum or plasma creatinine measurement with calculation of estimated glomerular filtration rate 56 NRG Serum or plasma glucose measurement (mass/volume) 258 mg/dL 70-105 Serum or plasma calcium measurement (mass/volume) 9.3 mg/dL 8.5-10.1 Encounters ACCT No. Visit Date/Time Discharge Status Pt. Type Provider Facility Loc./Unit Complaint [id number] 12/14/2014 13:19:00 12/14/2014 23:59:59 CLS Outpatient TEODORO LOPEZ DO [id number] 12/13/2014 11:14:00 12/13/2014 23:59:59 [facility] [id number] 12/12/2014 11:26:00 12/12/2014 23:59:59 CLS Outpatient TEODORO LOPEZ DO [id number] 12/10/2014 10:07:00 12/10/2014 23:59:59 [facility] [id number] 11/12/2014 10:53:00 11/12/2014 23:59:59 CLS Outpatient [employer], MIGUEL E [id number] 11/12/2014 10:53:00 11/12/2014 23:59:59 CLS Outpatient TEODORO LOPEZ DO [id number] 08/13/2014 09:26:00 08/13/2014 23:59:59 CLS Outpatient MIGUEL ARVIZU APRN [id number] 08/13/2014 09:26:00 08/13/2014 23:59:59 CLS Outpatient LOPEZ DOTEODORO [id number] 06/08/2014 10:43:00 06/08/2014 23:59:59 CLS Outpatient LOPEZ DOTEODORO [id number] 06/05/2014 13:12:00 06/05/2014 23:59:59 CLS Outpatient LOPEZ DOTEODORO [id number] 06/04/2014 13:24:00 06/04/2014 23:59:59 CLS Outpatient LOPEZ DOTEODORO [id number] 05/30/2014 11:34:00 05/30/2014 23:59:59 CLS Outpatient LOPEZ DOTEODORO [id number] 05/11/2014 14:38:00 05/11/2014 23:59:59 CLS Outpatient LOPEZ DOTEODORO [id number] 05/08/2014 12:10:00 05/08/2014 23:59:59 CLS Outpatient MIRLANDE PATIÑO APRN [id number] 2014 11:23:00 2014 23:59:59 CLS Outpatient MIRLANDE PATIÑO APRN [id number] 05/02/2014 11:40:00 05/02/2014 23:59:59 CLS Outpatient TEODORO LOPEZ DO Ro [id number] 05/01/2014 09:28:00 05/01/2014 23:59:59 CLS Outpatient DAMEONMIGUEL GRUBER APRN [id number] 04/27/2014 13:16:00 04/27/2014 23:59:59 CLS Outpatient MIRLANDE PATIÑO APRN [id number] 04/25/2014 12:16:00 04/25/2014 23:59:59 CLS Outpatient FANNY RODRIGUES MD [id number] 04/24/2014 12:51:00 04/24/2014 23:59:59 CLS Outpatient MIRLANDE PATIÑO APRN [id number] 04/23/2014 12:26:00 04/23/2014 23:59:59 CLS Outpatient MIGUEL ARVIZU APRN [id number] 04/19/2014 11:37:00 04/19/2014 23:59:59 CLS Outpatient MAKSIMLMIGUEL GRUBER APRN [id number] 04/17/2014 12:08:00 04/17/2014 23:59:59 CLS Outpatient MAKSIMLMIGUEL GRUBER APRN [id number] 04/16/2014 10:48:00 04/16/2014 23:59:59 CLS Outpatient LOPEZ DO, TEODORO Ro [id number] 04/13/2014 11:13:00 04/13/2014 23:59:59 CLS Outpatient LOPEZ DO, TEODORO Ro [id number] 04/12/2014 11:30:00 04/12/2014 23:59:59 CLS Outpatient LOPEZ DO, TEODORO Ro [id number] 03/27/2014 11:11:00 03/27/2014 23:59:59 CLS Outpatient MIGUEL ARVIZU APRN [id number] 03/26/2014 11:16:00 03/26/2014 23:59:59 CLS Outpatient LOPEZ DO, TEODORO Ro [id number] 03/22/2014 11:33:00 03/22/2014 23:59:59 CLS Outpatient LOPEZ DO, TEODORO K [id number] 03/20/2014 10:40:00 03/20/2014 23:59:59 CLS Outpatient LOPEZ DO, TEODORO Ro [id number] 03/16/2014 10:52:00 03/16/2014 23:59:59 CLS Outpatient LOPEZ DO, TEODORO Ro [id number] 03/14/2014 09:54:00 03/14/2014 23:59:59 CLS Outpatient LOPEZ DO, TEODORO K [id number] 03/13/2014 10:32:00 03/13/2014 23:59:59 CLS Outpatient LOPEZ DO, TEODORO K [id number] 03/09/2014 10:23:00 03/09/2014 23:59:59 CLS Outpatient PATI[facility] [employer]ANDE [id number] 03/07/2014 11:36:00 03/07/2014 23:59:59 CLS Outpatient LOPEZ DO, TEODORO K [id number] 03/01/2014 11:32:00 03/01/2014 23:59:59 CLS Outpatient LOPEZ DO, TEODORO K [id number] 02/28/2014 10:48:00 02/28/2014 23:59:59 CLS Outpatient LOPEZ DOTEODORO [id number] 02/27/2014 11:01:00 02/27/2014 23:59:59 CLS Outpatient LOPEZ DOTEODORO [id number] 02/26/2014 10:38:00 02/26/2014 23:59:59 CLS Outpatient LOPEZ DOTEODORO [id number] 02/23/2014 08:38:00 02/23/2014 23:59:59 CLS Outpatient LOPEZ DO, TEODORO Starr [id number] 02/16/2014 10:03:00 02/16/2014 23:59:59 CLS Outpatient LOPEZ DOTEODORO [id number] 02/02/2014 13:55:00 02/02/2014 23:59:59 CLS Outpatient LOPEZ DOTEODORO [id number] 01/24/2014 10:27:00 01/24/2014 23:59:59 CLS Outpatient MIGUEL ARVIZU APRN [id number] 01/17/2014 11:01:00 01/17/2014 23:59:59 CLS Outpatient LOPEZ DOTEODORO [id number] 01/01/2014 11:56:00 01/01/2014 23:59:59 CLS Outpatient MIGUEL ARVIZU APRN [id number] 12/27/2013 09:47:00 12/27/2013 23:59:59 CLS Outpatient LOPEZ DOTEODORO [id number] 12/20/2013 15:14:00 12/20/2013 23:59:59 CLS Outpatient LOPEZ DOTEODORO oR [id number] 12/20/2013 10:40:00 12/20/2013 23:59:59 CLS Outpatient CONNIE MANNING MD [id number] 09/25/2013 10:24:00 09/25/2013 23:59:59 CLS Outpatient MIGUEL ARVIZU APRN [id number] 08/31/2013 10:51:00 08/31/2013 23:59:59 CLS Outpatient LOPEZ DOTEODORO [id number] 08/17/2013 13:25:00 08/17/2013 23:59:59 CLS Outpatient LOPEZ DOTEODORO Ro [id number] 07/31/2013 11:24:00 07/31/2013 23:59:59 CLS Outpatient TEODORO LOPEZ DO [id number] 07/20/2013 13:59:00 07/20/2013 23:59:59 CLS Outpatient TEODORO LOPEZ DO [id number] 07/06/2013 13:44:00 07/06/2013 23:59:59 CLS Outpatient TEODORO LOPEZ DO [id number] 04/07/2013 09:47:00 04/07/2013 23:59:59 CLS Outpatient FANNY RODRIGUES MD [id number] 12/07/2012 14:31:00 12/07/2012 23:59:59 CLS Outpatient FANNY RODRIGUES MD [id number] 10/05/2012 16:15:00 10/05/2012 23:59:59 CLS Outpatient [id number] 10/05/2012 16:15:00 10/05/2012 23:59:59 CLS Outpatient [id number] 09/27/2012 10:24:00 09/27/2012 23:59:59 CLS Outpatient [id number] 06/17/2012 10:19:00 06/17/2012 23:59:59 CLS Outpatient FANNY RODRIGUES MD [id number] 06/17/2012 10:19:00 06/17/2012 23:59:59 CLS Outpatient FANNY RODRIGUES MD [id number] 01/04/2013 11:22:00 Document Registration [id number] 01/03/2013 08:49:00 Document Registration [id number] 03/31/2018 14:00:00 03/31/2018 23:59:59 CLS Outpatient MIKEMONTANAJUANITAHema SATINDER ALMAZAN [facility] [id number] 01/11/2018 10:00:00 Document Registration [id number] 09/27/2017 12:40:00 Document Registration [id number] 09/03/2017 10:00:00 Document Registration [id number] 06/25/2017 11:20:00 Document Registration [id number] 06/16/2018 14:14:00 06/16/2018 16:30:00 DIS Outpatient LALO DPMT FreireIN Q [facility] PREOP HYPERTROPHIC LEFT 2ND METATARSAL [id number] 05/20/2018 13:00:00 05/20/2018 23:59:59 CLS Preadmit LALO DPM MISAEL Q [facility] SDC HYPERTROPHIC LEFT 2ND METATARSAL [id number] 09/22/2017 10:14:00 09/22/2017 13:40:00 DIS Outpatient PATRICIA CERVANTES DO [facility] ENDO CHRONIC DIARRHEA/REFLUX [id number] 09/16/2017 05:33:00 09/16/2017 23:59:59 CLS Outpatient PATRICIA CERVANTES DO [facility] PREOP COLONOSCOPY/EGD [id number] 08/09/2015 09:13:00 08/09/2015 23:59:59 CLS Outpatient MIRLANDE LINDA MD [facility] RAD TENITUS,HISTORY OF HEAVY SMOKING,HOARSENESS [id number] 06/28/2015 06:09:00 06/28/2015 10:45:00 DIS Outpatient LALO DPM, MISAEL Q [facility] OSTEOMYLITIS RIGHT FOOT [id number] 06/26/2015 05:33:00 06/26/2015 23:59:59 CLS Outpatient LALO DPM, MISAEL Q [facility] PREOP OSTEOMYLITIS RIGHT FOOT [id number] 06/14/2015 12:06:00 06/14/2015 23:59:59 CLS Outpatient LALO DPM, MISAEL Q [facility] RAD POSTERIOR TIBIAL TENDONOSIS [id number] 05/14/2014 08:47:00 05/14/2014 13:45:00 DIS Outpatient LALO DPM, MISAEL Q [facility] GANGRENOUS TOE [id number] 05/09/2014 14:55:00 05/09/2014 23:59:59 CLS Outpatient LALO DPM, MISAEL Q [facility] PREOP GANGRENOUS TOE [id number] 05/30/2013 08:31:00 08/14/2013 00:01:00 DIS Outpatient LOUIS RODRIGUES MD [facility] ONC [id number] 05/19/2013 11:58:00 05/19/2013 23:59:59 CLS Outpatient LOUIS RODRIGUES MD [facility] RAD PROSTATE CA,ABNORMAL CT AND BONE SCAN [id number] 04/21/2013 11:43:00 04/21/2013 23:59:59 CLS Outpatient LUDMILA STRICKLAND MD [facility] RAD PROSTATE CA [id number] 06/20/2018 08:05:00 ACT Outpatient MISAEL MAY DPM [facility] SDC HYPERTROPHIC LEFT 2ND METATARSAL [id number] 08/15/2013 00:00:00 Document Registration [id number] 04/29/2012 13:40:00 Document Registration [id number] 03/14/2012 13:38:00 Document Registration [id number] 11/11/2011 05:44:00 Document Registration [id number] 11/09/2011 08:11:00 Document Registration [id number] 10/21/2011 17:36:00 Document Registration [id number] 09/23/2011 17:13:00 Document Registration [id number] 08/06/2011 16:03:00 Document Registration
[2018-06-20 11:34] VITALS: BP 165/92
--- NOTE | 2018-06-20 11:52 | Physical Therapy Ortho Eval ---
PT Orthopedic Evaluation Type of Surgery Exostosis, left 2nd Metatarsal Prior Level of Function Current Living Status: FPC 4WW Subjective Subjective "What you want and what you are going to get are not the same." His response to instruction on PWB status. Reports he uses a 4WW at the [facility]. Reports "I''m going to get in my chair and stay there." Pt reports he does not feel that he can or will be able to maintain PWB status of the left foot. Entry Into Home: Level Entry ROM ROM: WFL Strength Strength: WFL Transfer Bed mobility is indep and sit to stand is indep. Does not maintain PWB in transition of sit to / from stand. Gait Gait Assistive Device: FWW Right Lower Extremity: Right Weight Bearing Status RLE: Full Weight Bearing Left Lower Extremity: Left Weight Bearing Status LLE: Partial Weight Bearing Other Weight Bearing Inst.: Splint shoe to the left foot Education on importance of PWB status. Instructed and demonstrated PWB on the left. Instructed his ex - on PWB. Gait (FIM): 5 Summary/Comments Pt able to walk with FWW without assist but does not maintain PWB status despite instruction verbally and demonstrative. Pt has a 4WW at home, instructed him and his ex (she brought him to this procedure) that a FWW is recommended for PWB status. He and his ex reported he "probably would not use a FWW, he will use a 4WW." Assessment/Goals Goal Time Frame: 1 Visit Safe Ambulation: Yes (Safe in terms of balance, but does not maintain PWB status. ) Nursing notified of WB concern and she contacted Dr. Nielson's office. Plan Treatment Plan: Discharge PT/Family Agrees to Plan: Yes Time Time In: 1045 Time Out: 1110 Total Billed Treatment Time: 25 Billed Treatment Time visit EVM 25 Yes PT/OT Therapy GCodes Therapy Functional Limitation: Physical Therapy Test(s)/Tool used to determine: Level of Assistance Scale Functional Limitation-Current Charge Code: MOBCUR Modifier: CJ Functional Limitation-Goal Charge Code: MOBGOAL Modifier: CI Functional Limitation-D/C Charge Codes: MOBDC Modifier: CJ (as he does not maintain PWB status) DICK GREGG PT Jun 20, 2018 11:52
--- NOTE | 2018-06-20 14:58 | Anesthesia-General Post-Op ---
MAC Patient Condition Mental Status/LOC: Same as Preop Cardiovascular: Satisfactory Nausea/Vomiting: Absent Respiratory: Satisfactory Pain: Controlled Complications: Absent Post Op Complications Complications None Follow Up Care/Instructions Patient Instructions None needed. Anesthesiology Discharge Order Discharge Order Patient is doing well, no complaints, stable vital signs, no apparent adverse anesthesia problems. No complications reported per nursing. SARAH DE LUNA CRNA Jun 20, 2018 14:58
--- NOTE | 2018-06-20 19:56 | OPERATIVE REPORT ---
DATE OF SERVICE: 06/20/2018 SURGEON: Casie Nielson DPM PREOPERATIVE DIAGNOSIS: Hypertrophic left second metatarsal head with exostosis. POSTOPERATIVE DIAGNOSES: 1. Hypertrophic left second metatarsal head with exostosis. 2. 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 PROCEDURE: Partial head resection to the left second metatarsal. WOUND CLASS: Clean. ANESTHESIA: Monitored anesthesia care. HEMOSTASIS: Pneumatic ankle tourniquet at 250 mmHg. INDICATIONS: This 73-year-old male presents with an episodic ulceration to the plantar aspect of the left second metatarsal head. The ulceration would wax and wane as far as being healed, then having a complication. X-rays demonstrate a partial regrowth of the second metatarsal head with exostosis and bony growth. The patient is agreeable to surgical intervention after risks and complications were discussed at length. No guarantees were extended to the patient and he is willing to proceed. DESCRIPTION OF PROCEDURE: The patient was brought back to the operative table, placed in a secure supine position. Appropriate time out was performed. Pneumatic ankle tourniquet was placed on the left lower extremity over several layers of padding. The left foot was then prepped and draped in normal sterile manner. The area was anesthetized utilizing a 1:1 mixture of 0.5% Marcaine and 2% Xylocaine plain injected in a local infusion to the left second metatarsal head area, 10 mL were utilized in total. The left leg was then elevated and allowed to exsanguinate after which the tourniquet was inflated to 250 mmHg. Attention was then directed to the sulcus area of the second ray, left foot where a medial to lateral incision of approximately 1.5 cm was created. Blunt dissection was carried out to bone where the plantar prominence was identified and blunt dissection was carried out as well as some sharp dissection to the inferior aspect of the second metatarsal after which a power sagittal saw was utilized to reduce the bony prominence. The bone was sent for gross and microscopic evaluation. The plantar aspect of the second metatarsal distal aspect was then rasped with a hand rasp and found to be smooth. The wound was flushed with copious amounts of normal saline and closure was performed in layers. Deep closure was performed with 3-0 Vicryl, superficial with 4-0 Vicryl and skin closed with 4-0 Prolene in a simple interrupted type stitch. The tourniquet was released noted appropriate cap refill time to all remaining digits of the left foot. Postoperative dressing consisted of Betadine soaked Adaptic, sterile 4 x 4, sterile Kerlix all secured with Coban wrap. The patient tolerated the anesthesia and procedure well, was transported from the operating room to the recovery area with vital signs stable and vascular status intact to all digits of the left foot. The patient is to follow up in my office in 10 days' period of time or sooner if necessary. He is to ambulate with only partial weightbearing left foot with walker and a surgical splint shoe. Job ID: [id number] DocumentID: [id number] Dictated Date: 06/20/2018 10:11:22 Compliance Director Date: 06/20/2018 19:55:35 Dictated By: ADDISON DÍAZ
== END 2018-06-20 11:35 | disposition home or self-care (01) ==
LOC: SDC 08:05
PROVIDERS: ATTEND Podiatrist Foot & Ankle Surgery
DX: M89.372 Hypertrophy of bone, left ankle and foot (principal); L97.529 Non-pressure chronic ulcer of other part of left foot with unspecified severity; E11.40 Type 2 diabetes mellitus with diabetic neuropathy, unspecified; E11.621 Type 2 diabetes mellitus with foot ulcer; I25.10 Atherosclerotic heart disease of native coronary artery without angina pectoris; F32.0 Major depressive disorder, single episode, mild; I10 Essential (primary) hypertension; F41.9 Anxiety disorder, unspecified; Z86.73 Personal history of transient ischemic attack (TIA), and cerebral infarction without residual deficits; Z85.46 Personal history of malignant neoplasm of prostate; Z87.891 Personal history of nicotine dependence; Z79.4 Long term (current) use of insulin; Z79.899 Other long term (current) drug therapy; Z95.5 Presence of coronary angioplasty implant and graft
CPT/HCPCS: 36415; 80048; 82962

== ENCOUNTER 2018-11-01 13:33 | Inpatient (IN) | payer MEDICARE, MEDICAID ==
[~2018-11-01] VITALS: Ht 205.7 cm; Wt 100.9 kg
[~2018-11-01 13:33] MED LIST changes: -HYDR-3454 PO; +HYDR-3455 PO
--- OUTSIDE RECORDS SUMMARY | 2018-11-01 14:26 | XMS REPORT | Clinical Summary ---
Author Author [facility] Organization [facility] Address Unknown Phone Unavailable Care Team Providers Care Splicing Technician Name Role Phone PCP Unavailable Allergies No [...] ophthalmic 07/20/2014 manifestations, not stated as uncontrolled(250.50) ([facility]) Proliferative diabetic retinopathy, both eyes ([facility]) 07/20/2014 Resolved Problems Problem Noted Date Resolved Date Epiretinal membrane, right eye 01/01/2015 01/07/2015 Proliferative diabetic retinopathy, right eye ([facility]) 10/09/2014 10/10/2014 Traction retinal detachment involving macula of right eye 10/05/201410/10 Vitreous hemorrhage of right eye ([facility]) 07/20/2014 10/10/2014 Social History Tobacco Use Types [...] Not on file Implants Implanted Type Area Global President Device Expiration Model / Identifier Date Serial / Lot Stent Right Leg Implanted: Explanted: Results Not on filefrom Last 3 Months
--- NOTE | 2018-11-01 15:30 | NUR ---
PATIENT IN ROOM 411. VITAL SIGNS STABLE ON ROOM AIR. NO PAIN REPORTED AT THIS TIME. ORIENTED TO ROOM AND CALL LIGHT. LEFT FOOT WRAPPED IN GAUZE DRESSING.
[2018-11-01] MEDS ORDERED: VANCOMYCIN INJECTION 0.1 MG in NS (IVPB) 250 ML IV SCH (15:45)
[2018-11-01] MEDS ORDERED: VANCOMYCIN INJECTION 1,000 MG in NS (IVPB) 250 ML IV SCH (15:45)
[2018-11-01 16:00] VITALS: BP 137/69
[2018-11-01 16:42] LABS: BASOPHILS % (AUTO) 0 % (0-10); EOSINOPHILS # (AUTO) 0.3 10^3/uL (0.0-0.3); EOSINOPHILS % (AUTO) 4 % (0-10); HEMATOCRIT 31 % (40-54); LYMPHOCYTES # (AUTO) 1.7 X 10^3 (1.0-4.0); LYMPHOCYTES % (AUTO) 23 % (12-44); MEAN CORPUSCULAR HEMOGLOBIN 28 PG (25-34); MEAN CORPUSCULAR HGB CONC 33 G/DL (32-36); MEAN CORPUSCULAR VOLUME 86 FL (80-99); MEAN PLATELET VOLUME 8.7 FL (7.4-10.4); MONOCYTES # (AUTO) 0.8 X 10^3 (0.0-1.0); MONOCYTES % (AUTO) 10 % (0-12); NEUTROPHILS # (AUTO) 4.8 X 10^3 (1.8-7.8); NEUTROPHILS % (AUTO) 63 % (42-75); PLATELET COUNT 300 10^3/uL (130-400); RED CELL DISTRIBUTION WIDTH 14.2 % (10.0-14.5); WHITE BLOOD COUNT 7.6 10^3/uL (4.3-11.0)
[2018-11-01 16:52] LABS: ALBUMIN 3.5 GM/DL (3.2-4.5); BILIRUBIN,TOTAL 0.4 MG/DL (0.1-1.0); CALCIUM 9.2 MG/DL (8.5-10.1); CREATININE SERUM 1.44 MG/DL (0.60-1.30); POTASSIUM 4.3 MMOL/L (3.6-5.0)
--- NOTE | 2018-11-01 17:10 | NUR ---
PHARMACY TO DOSE VANCOMYCIN: BASED ON IBW 98.3KG SCr 1.44, EST CrCl 65.4 LOADING DOSE: 2,500 MG MAIN DOSE: 1,500 MG IV Q12HRS VANCOMYCIN TROUGH ORDERED FOR 11/03/18 @ 05:00 IF TROUGH IS GREATER THAN 20 HOLD 11/03/18 06:00 DOSE
[2018-11-01] MEDS ORDERED: CATHETER FLUSH 10 ML SYR IV PRN (17:15)
[2018-11-01] MEDS: inSUlin ASPART (NovoLOG) 1 UNIT/0.01 ML (CHARGE PER UNIT) SC SCH (17:17)
[2018-11-01] MEDS ORDERED: VANCOMYCIN 2,500 MG/NS 500 ML IVPB IV NR ×2 (17:30)
[2018-11-01 19:51] VITALS: BP 169/89
--- NOTE | 2018-11-01 20:55 | NUR ---
this rn called dr. smart to inform him pt o2 sat 90% raTiffani order 49 units pt bs 88, pt was wondering about his pain medication being restarted. new orders received, repeated back, dr. smart agreed
[2018-11-01] MEDS ORDERED: inSUlin DETERMIR 1 UNIT/0.01 ML (LEVEMIR) CHARGE PER UNIT SQ SCH (21:00)
[2018-11-01] MEDS ORDERED: inSUlin DETERMIR 1 UNIT/0.01 ML (LEVEMIR) CHARGE PER UNIT SQ ONE ×2 (21:00→21:21)
[2018-11-01] MEDS: inSUlin DETERMIR 1 UNIT/0.01 ML (LEVEMIR) CHARGE PER UNIT SQ SCH (21:25)
[2018-11-01] MEDS: CATHETER FLUSH 10 ML SYR IV SCH (21:25)
[2018-11-02 00:38] VITALS: BP 153/84
[2018-11-02 04:29] VITALS: BP 148/86
[2018-11-02] MEDS: VANCOMYCIN 1500 MG/NS 500 ML IVPB IV SCH ×4 (06:59→18:12)
[2018-11-02] MEDS: inSUlin ASPART (NovoLOG) 1 UNIT/0.01 ML (CHARGE PER UNIT) SC SCH ×3 (06:59→21:04)
[2018-11-02] MEDS: CATHETER FLUSH 10 ML SYR IV SCH ×3 (06:59→20:59)
[2018-11-02] MEDS: inSUlin DETERMIR 1 UNIT/0.01 ML (LEVEMIR) CHARGE PER UNIT SQ SCH ×2 (08:10→21:00)
[2018-11-02 08:33] VITALS: BP 189/94
[2018-11-02] MEDS ORDERED: RT-ALBUINH INH (08:50)
[2018-11-02] MEDS ORDERED: INSU100I14 SC (08:50)
[2018-11-02] MEDS ORDERED: NITR0.4T42 SL (08:50)
[2018-11-02] MEDS ORDERED: DOXY100T2 PO (08:50)
--- NOTE | 2018-11-02 08:50 | NUR ---
UPDATED MED REC WITH MAR FROM [facility] IN [place]
[2018-11-02] MEDS: ENOXAPARIN 40 MG/0.4 ML (LOVENOX) SYR SC SCH (09:31)
[2018-11-02] MEDS: CARVEDILOL 3.125 MG (COREG) TABLET PO SCH ×2 (09:31→20:58)
[2018-11-02 09:32] LABS: ABSOLUTE RETIC # 52 10e9/L (24-90); BASOPHILS # (AUTO) 0.1 10^3/uL (0.0-0.1); BASOPHILS % (AUTO) 1 % (0-10); EOSINOPHILS # (AUTO) 0.3 10^3/uL (0.0-0.3); EOSINOPHILS % (AUTO) 4 % (0-10); HEMATOCRIT 32 % (40-54); HEMOGLOBIN 10.1 G/DL (13.3-17.7); LYMPHOCYTES # (AUTO) 1.2 X 10^3 (1.0-4.0); LYMPHOCYTES % (AUTO) 17 % (12-44); MEAN CORPUSCULAR HEMOGLOBIN 27 PG (25-34); MEAN CORPUSCULAR HGB CONC 31 G/DL (32-36); MEAN CORPUSCULAR VOLUME 87 FL (80-99); MEAN PLATELET VOLUME 8.3 FL (7.4-10.4); MONOCYTES # (AUTO) 0.7 X 10^3 (0.0-1.0); MONOCYTES % (AUTO) 9 % (0-12); NEUTROPHILS # (AUTO) 5.1 X 10^3 (1.8-7.8); NEUTROPHILS % (AUTO) 70 % (42-75); PLATELET COUNT 288 10^3/uL (130-400); RED CELL DISTRIBUTION WIDTH 13.8 % (10.0-14.5); WHITE BLOOD COUNT 7.3 10^3/uL (4.3-11.0)
[2018-11-02 10:03] LABS: BAND NEUTROPHILS 2 %; BASOPHILS % (MANUAL) 0 %; EOSINOPHILS % (MANUAL) 5 %; LYMPHOCYTES % (MANUAL) 17 %; MONOCYTES % (MANUAL) 3 %; NEUTROPHILS % (MANUAL) 73 %; RBC MORPH NORMAL
--- NOTE | 2018-11-02 11:19 | History & Physical-Hospitalist ---
History of Present Illness HPI/Chief Complaint The patient is a 73-year-old white male admitted to the hospitalist service by a phone call from Dr. MISAEL MAY, staff metal forger's assistant. He had seen the patient in his office after complaints of pain and discharge from the stump of his previous left great toe amputation. Dr. May had debrided and placed iodoform in to tracts. He stated that a culture from the day before had been positive for MRSA. He therefore wished to have the patient admitted for IV antibiotic therapy. The patient reports that he is a diabetic of long-standing and also had amputation of the left third toe. He is not able to state his last hemoglobin A1c [place] Source: patient Date Seen 11/01/18 Time Seen by a Provider: 16:00 Attending Physician Jason Boudreaux MD PCP [facility] Referring Physician Date of Admission Nov 01, 2018 at 13:33 Home Medications & Allergies Home Medications Reviewed patient Home Medication Reconciliation performed by pharmacy medication reconciliations concrete technician and/or nursing. Patients Allergies have been reviewed. Allergies Allergies Coded Allergies No Known Drug Allergies (Unverified09/16/17) Past Hvujrgh-Agrelk-Muleyt Hx Past Med/Social Hx: Reviewed Nursing Past Med/Soc Hx Patient Social History Alcohol Use: Denies Use Recreational Drug Use: No Former Smoker, Quit: Sep 16, 2003 Physical Abuse Screen: No Sexual Abuse: No Recent Foreign Travel: No Contact w/other who traveled: No Recent Hopitalizations: No Recent Infectious Disease Expo: No Immunizations Up To Date Date of Pneumonia Vaccine: Jun 17, 2018 Date of Influenza Vaccine: Jul 04, 2018 Seasonal Allergies Seasonal Allergies: No Past Medical History Cardiac: Coronary Artery Disease, Heart Attack, High Cholesterol, Hypertension Neurological: Neuropathy, Stroke Reproductive: No Sexually Transmitted Disease: No HIV/AIDS: No Genitourinary: Prostate Problems Gastrointestinal: Gastroesophageal Reflux Musculoskeletal: Arthritis, Chronic Back Pain Are Your Blood Sugars Over 250: No HEENT: Cataract, Tinnitis Loss of Vision: Right Hearing Impairment: Denies Cancer: Prostate Did You Recieve Any Treatments: Yes What Type of Treatment Did You: Chemotherapy, Surgical Intervention Psychosocial: Depression Skin/Integumentary: Eczema, Psoriasis History of Blood Disorders: No Adverse Reaction to Blood Gutiérrez: No Review of Systems Constitutional: see HPI EENTM: no symptoms reported Respiratory: no symptoms reported Cardiovascular: no symptoms reported, Hx of Intervention, other (previous FL) Genitourinary: other (prostate cancer treated with surgery and medications) Skin: no symptoms reported Psychiatric/Neurological: No Symptoms Reported Physical Exam Physical Exam Vital Signs Vital Signs - First Documented 11/01/18 11/01/18 11/02/18 15:30 16:00 00:38 Temp 98.1 Pulse 86 Resp 20 B/P (MAP) 137/69 (91) Pulse Ox 95 O2 Delivery Room Air O2 Flow Rate 2.00 Capillary Refill : Height, Weight, BMI Height: 6'9.00" Weight: 222lbs. 7.0oz. 100.448589da; 23.8 BMI Method: General Appearance: No Apparent Distress, WD/WN Eyes: Bilateral Eye Normal Inspection HEENT: Normal ENT Inspection Neck: Full Range of Motion, Normal Inspection, Supple Respiratory: Chest Non Tender, Lungs Clear, Normal Breath Sounds, No Accessory Muscle Use, No Respiratory Distress Cardiovascular: Regular Rate, Rhythm, No Edema, No Gallop, No JVD, No Murmur, Normal Peripheral Pulses Gastrointestinal: Normal Bowel Sounds, No Organomegaly, No Pulsatile Mass, Non Tender, Soft Neurologic/Psychiatric: Alert, Oriented x3, public works inspector II-XII Norm as Tested Comments The left great toes amputated at the MP joint. There is erythema over the very distal stump. There are 2 tracts which are packed with iodoform. Results Results/Procedures Labs Laboratory Tests 11/01/18 16:27 11/02/18 09:22 Patient resulted labs reviewed. Assessment/Plan Admission Diagnosis Cellulitis/likely osteomyelitis left first metatarsal. 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 3.peripheral neuropathy. 4.previous myocardial infarct/coronary artery disease. Admission Status: Inpatient Order (span 2 midnights) Reason for Inpatient Admission: Stop cellulitis/osteomyelitis will require long course of antibiotics Assessment and Plan IV vancomycin. Consult with Dr. May Clinical Quality Measures DVT/VTE Risk/Contraindication: Risk Factor Score Per Nursin RFS Level Per Nursing on Admit: 4+=Very High JASON BOUDREAUX MD Nov 02, 2018 11:19
[2018-11-02 11:27] VITALS: BP 167/75
[2018-11-02] MEDS ORDERED: NITROGLYCERIN 0.4 MG SL TABS BTL 25'S SL PRN (11:30)
--- NOTE | 2018-11-02 12:28 | Podiatry Progress Note ---
Standard Progress Note Progress Notes/Assess & Plan Date Seen by a Provider: Nov 02, 2018 Time Seen by a Provider: 12:23 Progress/Assessment & Plan Consult dictated. He has responded well to the incision & drainage performed in my office yesterday and to the current IV antibiotics. I believe he would do well with PICC line for outpatient IV antibiotic and wound care. The dressing was changed today. Final Diagnosis Cellulitis left foot, Abscess (deep) left foot, Diabetic Neuropathy MISAEL MAY DPM Nov 02, 2018 12:28
[2018-11-02] MEDS ORDERED: RT-ALBUTEROL SULF 2.5 MG/3 ML PRE-MIX VIAL INH PRN (12:30)
--- NOTE | 2018-11-02 13:48 | CONSULTATION REPORT ---
DATE OF SERVICE: HISTORY OF PRESENT ILLNESS: This is a 73-year-old diabetic patient, who was seen in my office yesterday with an ulceration to his left foot. He was previously seen at the [facility] in [place] for wound care. He was given an injection of antibiotics, but does not know what he was given. His ulceration became progressively worse. He indicated that a culture was taken, which he presented for my review yesterday in the office, which demonstrated MRSA. Yesterday in my clinic, the patient had significant erythema and increasing calor to the left forefoot with a partial thickness wound to the plantar aspect of the left forefoot. After debridement, there were sinus tracts that went from the plantar aspect of the left forefoot down to the first metatarsal head and bogginess noted to the medial aspect of the left forefoot that tracked down to bone. The wound was flushed after which an iodoform packing was applied. He was admitted for IV antibiotics. He was previously utilizing doxycycline daily. PAST MEDICAL HISTORY: Includes coronary artery disease, myocardial infarction, hypercholesterolemia, hypertension, diabetes, peripheral neuropathy, CVA. He does have a history of prostate issues, gastroesophageal reflux, arthritis with chronic back pain, eczema, psoriasis. 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 SOCIAL HISTORY: The patient denies tobacco, alcohol or illicit drug use. He is currently a resident in [place] at [facility]. ALLERGIES: The patient has no known drug allergies. The patient is currently afebrile. He has no significant elevation to white count at this time. PHYSICAL EXAMINATION: On examination, the patient has significantly decreased erythema to the left forefoot as compared to the pen dilia that I made yesterday in the office. The patient still has the iodoform packing. There is some fibrotic tissue into the sinus tract from the medial and plantar wounds extending down to deep tissue including bone. No proximal streaking, no bogginess noted. The lesion to the medial aspect of the left first metatarsal is approximately 1 cm in diameter and to the plantar aspect of the left first metatarsal head area. It is approximately 5 mm in diameter. The patient has absent pedal pulses on left. Capillary refill time is less than 3 seconds to the distal aspect of the left forefoot. The patient has absent protective sensation per 10 gram monofilament wire examination and diminished vibratory sensation in left foot. ASSESSMENT: 1. Cellulitis, left foot, improved. 2. History of MRSA left foot. 3. Diabetic neuropathy and atherosclerosis, left foot. PLAN: The lesions to the left forefoot were flushed with normal saline after which half inch iodoform packing was reintroduced into the plantar and medial ulceration site. Sterile gauze and Kerlix wrap was then applied and secured with an Cliff wrap. Since the patient is responding so well to current therapy, it is my anticipation that we will be able to provide the patient with a PICC line and outpatient IV antibiotics. Wound care can be performed daily on an outpatient basis as well. Job ID: [id number] DocumentID: [id number] Dictated Date: 11/02/2018 12:23:26 Sliver Machine Operator Date: 11/02/2018 13:47:01 Dictated By: MISAEL MAY DPM
[2018-11-02 15:51] VITALS: BP 160/84
--- NOTE | 2018-11-02 15:52 | NUR ---
CM/SS, respond to consult for post hospital care plan. PLAN: Tentatively, Swing Bed [place], Wednesday. SWB/Coordinator: Cristal Howe FX: [phone] Direct Line: [phone] Following patient for results of diagnostics regarding foot cellulitis and IV Rx to treat. Will need to fax referral to MICHAEL/Cristal once treatment plan is known. Assess for midline vs PICC depending on length of need for IV Rx. SUMMARY: Patient has established residency at [facility]. He does not drive and patient's extended caregiver, Melia Rose, states the [facility] does not transport. Melia is patient's ex- but does continue in a friendship and caregiver role and is reportedly his DPOA. She is generally the one to transport for appointments and necessary errands. Meila is leaving Wednesday11/05/18 and gone 3 weeks. We discussed options of either SNF/[facility] or [facility] SW[facility]. We agreed preference would be SWB if patient's stay is anticipated short term and since he has established residency at [facility]. Followup tomorrow, confer with physician and pharmacist about Rx regime and timeline.
[2018-11-02] MEDS: TAMSULOSIN 0.4 MG (FLOMAX) CAP PO SCH (16:57)
[2018-11-02] MEDS ORDERED: ZOLPIDEM 5 MG (AMBIEN) TAB PO PRN (18:00)
--- NOTE | 2018-11-02 20:57 | Progress Note (SOAP) ---
Subjective Subjective/Events-last exam Afebrile, no acute events. He is anxious to go home. Review of Systems Date Seen by Provider: Nov 02, 2018 Time Seen by Provider: 11:30 Objective Exam Last Set of Vital Signs Vital Signs Date Time Temp Pulse Resp B/P (MAP) Pulse Ox O2 Delivery O2 Flow Rate FiO2 11/02/18 19:53 Room Air 11/02/18 15:51 98.8 94 18 160/84 (109) 94 11/02/18 08:33 2.00 Capillary Refill : I&O Intake and Output 11/02/18 00:00 Intake Total 725 ml Output Total 350 ml Balance 375 ml Intake Oral 200 ml IV Total 525 ml Output Urine Total 350 ml Daily Weight Change Unsure Unsure General: Alert, No Acute Distress Lungs: Clear to Auscultation, Normal Air Movement Heart: Regular Rate, No Murmurs Skin: Other (Left foot with first and second digit amputated and ulceration above and below first metatarsal with mild surrounding erythema and exudate, right foot with first and third digits amputated) Psych/Mental Status: Mental Status NL Results/Procedures Lab Laboratory Tests 11/02/18 06:40: Glucometer 160H 11/02/18 09:22: White Blood Count 7.3, Red Blood Count 3.71L, Hemoglobin 10.1L, Hematocrit 32L, Mean Corpuscular Volume 87, Mean Corpuscular Hemoglobin 27, Mean Corpuscular Hemoglobin Concent 31L, Red Cell Distribution Width 13.8, Platelet Count 288, Mean Platelet Volume 8.3, Neutrophils (%) (Auto) 70, Lymphocytes (%) (Auto) 17, Monocytes (%) (Auto) 9, Eosinophils (%) (Auto) 4, Basophils (%) (Auto) 1, Neutrophils # (Auto) 5.1, Lymphocytes # (Auto) 1.2, Monocytes # (Auto) 0.7, Eosinophils # (Auto) 0.3, Basophils # (Auto) 0.1, Neutrophils % (Manual) 73, Lymphocytes % (Manual) 17, Monocytes % (Manual) 3, Eosinophils % (Manual) 5, Basophils % (Manual) 0, Band Neutrophils 2, Blood Morphology Comment NORMAL, Absolute Reticulocyte Count 52, Percent Reticulocyte Count 1.40, Iron Level 29L , Total Iron Binding Capacity 224L, Unsaturated Iron Binding Capacity 195, Transferrin % Saturation 13L 3/6/19 11:33: Glucometer 178H 11/02/18 14:57: Glucometer 167H Assessment/Plan Assessment/Plan (1) Cellulitis Status: Acute Assessment & Plan: Markedly improved today per Dr. Nielson's evaluation. Continue IV vancomycin, cultures pending. Qualifiers: (2) Diabetes mellitus Status: Chronic Assessment & Plan: Diabetic diet, home Victoza resumed, insulin held, SSI Qualifiers: Qualified Codes: E11.621 - Type 2 diabetes mellitus with foot ulcer; L97.509 - Non-pressure chronic ulcer of other part of unspecified foot with unspecified severity; Z79.4 - shelter (current) use of insulin (3) Chronic kidney disease Status: Chronic Assessment & Plan: Stable Qualifiers: Qualified Codes: N18.3 - Chronic kidney disease, stage 3 (moderate) (4) Hyperlipidemia Status: Chronic Assessment & Plan: Resume statin (5) Coronary artery disease Status: Chronic Assessment & Plan: Resume home medications Qualifiers: Qualified Codes: I25.10 - Atherosclerotic heart disease of minto coronary artery without angina pectoris (6) Chronic pain Status: Chronic Assessment & Plan: Resume home tramadol (7) Anemia Assessment & Plan: Suspect anemia of chronic disease, check ferritin, TIBC, iron and peripheral smear, retic count. (8) DVT prophylaxis Status: Acute Assessment & Plan: Enoxaparin Clinical Quality Measures DVT/VTE Risk/Contraindication: Risk Factor Score Per Nursin RFS Level Per Nursing on Admit: 4+=Very High CONNIE MANNING MD Nov 02, 2018 20:57
[2018-11-02] MEDS: MEGESTROL 40 MG (MEGACE) TAB PO SCH (20:58)
[2018-11-02] MEDS ORDERED: CARVEDILOL PO SCH (21:00)
[2018-11-02] MEDS ORDERED: ATORVASTATIN 40 MG (LIPITOR) TABLET PO SCH (21:00)
[2018-11-03 00:15] VITALS: BP 160/91
[2018-11-03 04:29] LABS: HEMOGLOBIN 11.1 G/DL (13.3-17.7); MEAN PLATELET VOLUME 8.5 FL (7.4-10.4); RED CELL DISTRIBUTION WIDTH 13.8 % (10.0-14.5); WHITE BLOOD COUNT 8.4 10^3/uL (4.3-11.0)
[2018-11-03 04:51] LABS: BUN/CREATININE RATIO 17; CALCIUM 9.4 MG/DL (8.5-10.1); CARBON DIOXIDE 19 MMOL/L (21-32); CHLORIDE 111 MMOL/L (98-107); CREATININE SERUM 0.94 MG/DL (0.60-1.30); GFR ESTIMATED > 60; GLUCOSE 114 MG/DL (70-105); POTASSIUM 4.2 MMOL/L (3.6-5.0); SODIUM 140 MMOL/L (135-145)
[2018-11-03] MEDS ORDERED: TROUGH ORDER-PHARMACY XX NR ×2 (05:00→11:00)
[2018-11-03 05:14] LABS: VANCOMYCIN,TROUGH 28.3 UG/ML (10.0-20.0)
--- NOTE | 2018-11-03 05:21 | NUR ---
NOTIFIED DR MANNING OF CRITICAL LAB VALUE, VANCO TROUGH OF 28.3. HOLDING 6AM DOSE OF VANCOMYCIN. NO FURTHER ORDERS
[2018-11-03] MEDS: VANCOMYCIN 1500 MG/NS 500 ML IVPB IV SCH ×2 (05:24)
[2018-11-03] MEDS: CATHETER FLUSH 10 ML SYR IV SCH ×2 (06:18→14:11)
--- NOTE | 2018-11-03 07:29 | NUR ---
PTD VANCOMYCIN LABS: SCR 0.94 (1.44) VANCOMYCIN TROUGH LEVEL 28.3 (PRIOR TO 4TH DOSE, INCLUDING BOLUS DOSE) PLAN: RECHECK A LEVEL AT 1100 (7 HRS AFTER FIRST LEVEL) AND CALCULATE ESTIMATED T1/2 AND CLEARANCE. MOST LIKELY WILL NEED TO CHANGE TO Q24 HOUR DOSING. Addendum: 11/03/18 at 1214 by CALEB EDUARDO [facility] repeat lvl at 1107 is 22.9 t1/2: 23 hours kd: 0.0302 plan: change vancomycin to 1500mg iv q 24 hours. starting on 11/04/18
[2018-11-03 08:00] VITALS: BP_SYST 114; BP_SYST 146; BP_DIAS 71; BP_DIAS 80
[2018-11-03] MEDS ORDERED: FUROSEMIDE 20 MG (LASIX) TAB PO SCH (09:00)
[2018-11-03] MEDS ORDERED: ASPIRIN 81 MG CHEW (CHILDREN'S ASA) PO SCH (09:00)
[2018-11-03] MEDS ORDERED: PANTOPRAZOLE 20 MG TABLET (PROTONIX) PO SCH (09:00)
[2018-11-03] MEDS ORDERED: NON-FORMULARY MEDICATION 1 EA EA (Liraglutide (Victoza 2-Pak) 1.8 MG) SQ SCH (09:00)
[2018-11-03] MEDS: CARVEDILOL 3.125 MG (COREG) TABLET PO SCH (09:31)
[2018-11-03] MEDS: ENOXAPARIN 40 MG/0.4 ML (LOVENOX) SYR SC SCH (09:32)
[2018-11-03] MEDS: MEGESTROL 40 MG (MEGACE) TAB PO SCH (09:32)
[2018-11-03] MEDS: inSUlin ASPART (NovoLOG) 1 UNIT/0.01 ML (CHARGE PER UNIT) SC SCH (09:40)
[2018-11-03] MEDS: inSUlin DETERMIR 1 UNIT/0.01 ML (LEVEMIR) CHARGE PER UNIT SQ SCH (09:40)
[2018-11-03] MEDS ORDERED: VANC1.5P21 IV (10:54)
--- NOTE | 2018-11-03 10:58 | Discharge Instructions ---
Discharge [facility] Discharge Medications New, Converted or Re-Newed RX: RX on Chart New Medications: Vancomycin HCl in Dextrose 5 % (Vancomycin 1.5 Gram/500 ml-D5w) 1.5 Gm/500 Ml Plast..bag 1.5 GM IV DAILY for 7 Days, ML 0 Refills Continued Medications: Albuterol Sulfate (Ventolin Hfa) 1 Puff Puff 2 PUFF INH QID PRN for WHEEZING, INHALER Aspirin (Aspir 81) 81 Mg Tablet.dr 81 MG PO DAILY, TAB Atorvastatin Calcium (Atorvastatin Calcium) 40 Mg Tablet 40 MG PO HS, TAB Carvedilol (Carvedilol) 3.125 Mg Tablet 0.5 TAB PO BID, TAB Cetirizine HCl (Cetirizine HCl) 10 Mg Tablet 10 MG PO DAILY, TAB Cyanocobalamin (Cyanocobalamin Injection) 1,000 Mcg/Ml Inj 1000 MCG IM MONTHLY, VIAL Escitalopram Oxalate (Escitalopram Oxalate) 20 Mg Tablet 20 MG PO DAILY, TAB Folic Acid (Folic Acid) 1 Mg Tablet 1 MG PO DAILY, TAB Furosemide (Furosemide) 20 Mg Tablet 10 MG PO DAILY, TAB TAKES 1/2 (20MG) TABLET Insulin Aspart (Novolog Flexpen) 300 Units/3 Ml Solution 7 UNITS SC TIDAC, EA HOLD FOR BS LESS THAN 130 Insulin Detemir (Levemir Flextouch) 100 Unit/1 Ml Insuln.pen 54 UNIT SQ BID, EA Liraglutide (Victoza 2-Grupo) 0.6 Mg/0.1 Ml Pen.injctr 1.8 MG SQ DAILY, EA Megestrol Acetate (Megestrol Acetate) 40 Mg Tablet 20 MG PO BID, TAB TAKES 1/2 (40MG) TABLET Nitroglycerin (Nitroglycerin) 0.4 Mg Tab.subl 0.4 MG SL UD PRN for CHEST PAIN, TAB Omeprazole (Omeprazole) 20 Mg Capsule.dr 20 MG PO DAILY, CAP Tamsulosin HCl (Tamsulosin HCl) 0.4 Mg Cap.er.24h 0.4 MG PO 1630, CAP Tramadol HCl (Tramadol HCl) 50 Mg Tablet 50 MG PO 0800,1400,2000, TAB Discontinued Medications: Doxycycline Hyclate (Doxycycline Hyclate) 100 Mg Tablet 100 MG PO BID for 10 Days, TAB START DATE 10-25-18 END DATE 11-04-18 AM DOSE Patient Instructions Goal/Follow Up Appt: Follow up with Jose Parson at [facility] in [place] on 11/09 at 11:20 am. Follow up with Dr. Nielson as directed. [facility]: Fever, worsening redness in foot or foul drainage. Activity & Diet Discharge Diet: ADA CONNIE Selby MD Nov 03, 2018 10:58
--- NOTE | 2018-11-03 12:06 | Podiatry Progress Note ---
Standard Progress Note Progress Notes/Assess & Plan Date Seen by a Provider: Nov 03, 2018 Time Seen by a Provider: 11:56 Progress/Assessment & Plan The patient denies F/C/N/V. No pain to the left foot. There is minimal erythema to the left forefoot. Full thickness wounds that probe down to bone from the medial and plantar aspect of the left 1st metatarsal head area. The wound size is unchanged but there is no purulent discharge and minimal serous drainage, no mal-odor, no proximal streaking. Laboratory Tests 11/02/18 14:57: Glucometer 167H 11/02/18 20:55: Glucometer 139H 11/03/18 04:08: White Blood Count 8.4, Red Blood Count 3.93L, Hemoglobin 11.1L, Hematocrit 33L, Mean Corpuscular Volume 85, Mean Corpuscular Hemoglobin 28, Mean Corpuscular Hemoglobin Concent 33, Red Cell Distribution Width 13.8, Platelet Count 303, Mean Platelet Volume 8.5, Sodium Level 140, Potassium Level 4.2, Chloride Level 111H, Carbon Dioxide Level 19L, Anion Gap 10, Blood Urea Nitrogen 16, Creatinine 0.94, Estimat Glomerular Filtration Rate > 60, BUN/Creatinine Ratio 17, Glucose Level 114H, Calcium Level 9.4, Vancomycin Level Trough 28.3*H 11/03/18 11:15: Vancomycin Level Trough 22.9H 11/03/18 11:45: Glucometer 149H Vital Signs Date Time Temp Pulse Resp B/P (MAP) Pulse Ox O2 Delivery O2 Flow Rate FiO2 11/03/18 08:00 98.4 86 18 114/71 (85) 94 Room Air 11/03/18 00:15 97.0 86 20 160/91 (114) 96 Room Air 11/02/18 20:00 Nasal Cannula 2.00 11/02/18 19:53 Room Air 11/02/18 15:51 98.8 94 18 160/84 (109) 94 Room Air 11/02/18 13:05 93 Room Air I & O 11/03/18 07:00 Intake Total 1498 ml Balance 1498 ml A/P Cellulitis left foot - improved Abscess left foot - improved History of MRSA left foot The dressing was changed today. Continue with wound care daily to the left foot when he is discharged: 1) Clean with wound wash 2) Pack medial and plantar wounds with Iodoform packing for 3 days then transition to wet-to-dry light packing (09/02") with sterile technique 3) Cover with gauze and kirlex. 4) Follow up in Dr. May's office in one weeks time 5) Continue with IV antibiotics until final cultures are reviewed Final Diagnosis Cellulitis left foot - improved Full Thickness Ulcerations left foot - Improved Diabetic Neuropathy MISAEL MAY DPM Nov 03, 2018 12:06
--- NOTE | 2018-11-03 14:07 | NUR ---
unable to scan lunch time 6 units insulin - administered
[2018-11-03] MEDS: TAMSULOSIN 0.4 MG (FLOMAX) CAP PO SCH (14:11)
--- NOTE | 2018-11-03 14:50 | NUR ---
CM/SS. Patient discharged to return to established residency with [facility] via transport with Melia Rose. Rx IV: Coordinated outpatient Rx IV Vancomycin daily x 7 days via midline with [facility]. Provided all requested information for Rx and wound dressing/care. Updated Lovely at [facility], she will provide transport daily for patient because Melia will be out of town 3 weeks. All orders and arrangements appear final.
[2018-11-03 15:10] VITALS: BP 114/71
--- NOTE | 2018-11-03 21:20 | Discharge Summary ---
Diagnosis/Chief Complaint Date of Admission Nov 01, 2018 at 13:33 Date of Discharge Nov 03, 2018 at 15:18 Admission Diagnosis Admission Diagnosis Cellulitis Discharge Diagnosis See problem list Problems/Diagnosis: (1) Cellulitis Assessment & Plan: Markedly improved today per Dr. Nielson's evaluation. Continue IV vancomycin, cultures pending. Discharged on IV vancomycin outpatient until follow up with Dr. Nielson. Qualifiers: Status: Acute (2) Diabetes mellitus Assessment & Plan: Diabetic diet, home Victoza resumed, insulin held, SSI Qualifiers: Qualified Codes: E11.621 - Type 2 diabetes mellitus with foot ulcer; L97.509 - Non-pressure chronic ulcer of other part of unspecified foot with unspecified severity; Z79.4 - jail (current) use of insulin Status: Chronic (3) Chronic kidney disease Assessment & Plan: Stable Qualifiers: Qualified Codes: N18.3 - Chronic kidney disease, stage 3 (moderate) Status: Chronic (4) Hyperlipidemia Assessment & Plan: Resume statin Status: Chronic (5) Coronary artery disease Assessment & Plan: Resume home medications Qualifiers: Qualified Codes: I25.10 - Atherosclerotic heart disease of [place] coronary artery without angina pectoris Status: Chronic (6) Chronic pain Assessment & Plan: Resume home tramadol Status: Chronic (7) Anemia Assessment & Plan: Suspect anemia of chronic disease, check ferritin, TIBC, iron and peripheral smear, retic count. Low iron and TIBC, nml ferritin and retic, consistent with chronic disease. Qualifiers: Qualified Codes: N18.3 - Chronic kidney disease, stage 3 (moderate); D63.1 - Anemia in chronic kidney disease Status: Chronic Chief Complaint/HPI Chief Complaint/HPI 73 yo male sent by Dr. Nielson due to cellulitis in chronic foot wound. Discharge Summary-Simple/Stand Consultations Discharge Physical Examination Allergies: Coded Allergies: No Known Drug Allergies (Unverified , 09/16/17) Vitals & I&Os Vital Sign - Last 12Hours Date Time Temp Pulse Resp B/P (MAP) Pulse Ox O2 Delivery O2 Flow Rate FiO2 11/03/18 15:10 86 18 114/71 94 Room Air 2.00 11/03/18 08:00 98.4 Intake and Output 11/03/18 00:00 Intake Total 1198 ml Balance 1198 ml General Appearance: Alert, No Acute Distress Respiratory: Clear to Auscultation, Normal Air Movement Cardiovascular: Regular Rate, No Murmurs Skin: Other (Metatarsal wound on left foot with minimal erythema and no drainage) Neuro: Normal Speech Hospital Course See final discharge diagnosis. Labs Laboratory Tests Test 11/02/18 06:40 11/02/18 09:22 11/02/18 11:33 11/02/18 14:57 Range/Units Glucometer 160 H 178 H 167 H 70-110 MG/DL White Blood Count 7.3 4.3-11.0 10^3/uL Red Blood Count 3.71 L 4.35-5.85 10^6/uL Hemoglobin 10.1 L 13.3-17.7 G/DL Hematocrit 32 L 40-54 % Mean Corpuscular Volume 87 80-99 FL Mean Corpuscular Hemoglobin 27 25-34 PG Mean Corpuscular Hemoglobin Concent 31 L 32-36 G/DL Red Cell Distribution Width 13.8 10.0-14.5 % Platelet Count 288 130-400 10^3/uL Mean Platelet Volume 8.3 7.4-10.4 FL Neutrophils (%) (Auto) 70 42-75 % Lymphocytes (%) (Auto) 17 12-44 % Monocytes (%) (Auto) 9 0-12 % Eosinophils (%) (Auto) 4 0-10 % Basophils (%) (Auto) 1 0-10 % Neutrophils # (Auto) 5.1 1.8-7.8 X 10^3 Lymphocytes # (Auto) 1.2 1.0-4.0 X 10^3 Monocytes # (Auto) 0.7 0.0-1.0 X 10^3 Eosinophils # (Auto) 0.3 0.0-0.3 10^3/uL Basophils # (Auto) 0.1 0.0-0.1 10^3/uL Neutrophils % (Manual) 73 % Lymphocytes % (Manual) 17 % Monocytes % (Manual) 3 % Eosinophils % (Manual) 5 % Basophils % (Manual) 0 % Band Neutrophils 2 % Blood Morphology Comment NORMAL Absolute Reticulocyte Count 52 24-90 10e9/L Percent Reticulocyte Count 1.40 0.50-2.40 % Iron Level 29 L 40-180 ug/dL Total Iron Binding Capacity 224 L 280-380 ug/dL Unsaturated Iron Binding Capacity 195 55-450 ug/dL Transferrin % Saturation 13 L 15-50 % Ferritin 249.3 32.0-356.0 ng/mL Test 11/02/18 20:55 11/03/18 04:08 11/03/18 11:15 11/03/18 11:45 Range/Units Glucometer 139 H 149 H 70-110 MG/DL White Blood Count 8.4 4.3-11.0 10^3/uL Red Blood Count 3.93 L 4.35-5.85 10^6/uL Hemoglobin 11.1 L 13.3-17.7 G/DL Hematocrit 33 L 40-54 % Mean Corpuscular Volume 85 80-99 FL Mean Corpuscular Hemoglobin 28 25-34 PG Mean Corpuscular Hemoglobin Concent 33 32-36 G/DL Red Cell Distribution Width 13.8 10.0-14.5 % Platelet Count 303 130-400 10^3/uL Mean Platelet Volume 8.5 7.4-10.4 FL Sodium Level 140 135-145 MMOL/L Potassium Level 4.2 3.6-5.0 MMOL/L Chloride Level 111 H 98-107 MMOL/L Carbon Dioxide Level 19 L 21-32 MMOL/L Anion Gap 10 5-14 MMOL/L Blood Urea Nitrogen 16 7-18 MG/DL Creatinine 0.94 0.60-1.30 MG/DL Estimat Glomerular Filtration Rate > 60 BUN/Creatinine Ratio 17 Glucose Level 114 H 70-105 MG/DL Calcium Level 9.4 8.5-10.1 MG/DL Vancomycin Level Trough 28.3 *H 22.9 H 10.0-20.0 UG/ML Discharge Instructions to patient/family Please see electronic discharge instructions given to patient. Discharge Medications Reviewed and agree with Discharge Medication list on patient's Discharge Instruction sheet Clinical Quality Measures DVT/VTE Risk/Contraindication: Risk Factor Score Per Nursin RFS Level Per Nursing on Admit: 4+=Very High Copy Copies To 1: LIV Knight BETHANY N MD Nov 03, 2018 21:20
[2018-11-04] MEDS ORDERED: VANCOMYCIN 1500 MG/NS 500 ML IVPB IV SCH ×2 (09:00)
== END 2018-11-03 15:18 | DRG 565 ==
LOC: 4TH 13:33
PROVIDERS: ADMIT Internal Medicine; ATTEND Internal Medicine
DX: T87.44 Infection of amputation stump, left lower extremity (principal); L03.116 Cellulitis of left lower limb; E11.621 Type 2 diabetes mellitus with foot ulcer; L97.529 Non-pressure chronic ulcer of other part of left foot with unspecified severity; E11.42 Type 2 diabetes mellitus with diabetic polyneuropathy; I70.245 Atherosclerosis of native arteries of left leg with ulceration of other part of foot; B95.62 Methicillin resistant Staphylococcus aureus infection as the cause of diseases classified elsewhere; I25.10 Atherosclerotic heart disease of native coronary artery without angina pectoris; I12.9 Hypertensive chronic kidney disease with stage 1 through stage 4 chronic kidney disease, or unspecified chronic kidney disease; N18.3 Chronic kidney disease, stage 3 (moderate); I25.2 Old myocardial infarction; E78.00 Pure hypercholesterolemia, unspecified; D63.8 Anemia in other chronic diseases classified elsewhere; K21.9 Gastro-esophageal reflux disease without esophagitis; M19.91 Primary osteoarthritis, unspecified site; M54.9 Dorsalgia, unspecified; F32.9 Major depressive disorder, single episode, unspecified; H93.19 Tinnitus, unspecified ear; L30.9 Dermatitis, unspecified; L40.9 Psoriasis, unspecified; Z89.412 Acquired absence of left great toe; Z89.422 Acquired absence of other left toe(s); Z89.421 Acquired absence of other right toe(s); Z85.46 Personal history of malignant neoplasm of prostate; Z92.21 Personal history of antineoplastic chemotherapy; Z86.73 Personal history of transient ischemic attack (TIA), and cerebral infarction without residual deficits; Z79.4 Long term (current) use of insulin
CPT/HCPCS: 36415; 76937; 80048; 80053; 80202; 82728; 82962; 83540; 85007; 85025; 85027; 85045; 94760

== ENCOUNTER 2019-03-31 11:30 | Outpatient (CLI) | payer MEDICARE, MEDICAID ==
[~2019-03-31] VITALS: Ht 175.3 cm; Wt 102.3 kg
[~2019-03-31 11:30] MED LIST changes: +DOXY100T2 PO; +INSU100I14 SC; +NITR0.4T42 SL; +RT-ALBUINH INH; +VANC1.5P21 IV
== END 2019-03-31 12:35 | disposition home or self-care (01) ==
LOC: PREOP 11:30
PROVIDERS: ATTEND Podiatrist Foot & Ankle Surgery
DX: Z01.818 Encounter for other preprocedural examination (principal)

== ENCOUNTER 2019-04-03 06:15 | Day surgery (SDC) | payer MEDICARE, MEDICAID ==
[~2019-04-03] VITALS: Ht 175.3 cm; Wt 101.8 kg
[~2019-04-03 06:15] MED LIST changes: -OMEP20CA12 PO; +OMEP20CA13 PO
--- OUTSIDE RECORDS SUMMARY | 2019-04-03 06:20 | XMS REPORT | Clinical Summary ---
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 Take 1 tablet in am and 1/2 tablet in pm Take DOS Active pantoprazole (PROTONIX) Take 40 mg by 0 40 MG tablet mouth daily. Take DOS Active atorvastatin (LIPITOR) 20 Take 20 mg by 0 MG tablet mouth daily. Take DOS Active escitalopram oxalate Take 10 mg by 0 (LEXAPRO) 10 MG tablet mouth daily. Take DOS Active amLODIPine (NORVASC) 10 Take 10 mg by 0 MG tablet mouth daily. Take DOS Active metFORMIN (GLUCOPHAGE) Take 1,000 mg 0 1000 MG tablet by mouth 2 (two) times a day with meals. Active insulin detemir (LEVEMIR) Inject 30 0 100 unit/mL injection Units under the skin nightly. Active insulin aspart (NOVOLOG) Inject 20 0 100 unit/mL injection Units under the skin 3 (three) times a day before meals. Active pregabalin (LYRICA) 50 MG Take 50 mg by 0 capsule mouth 2 (two) times a day. 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, not stated as uncontrolled(250.50) Proliferative diabetic retinopathy, both eyes 07/20/2014 Resolved Problems Problem Noted Date Resolved Date Epiretinal membrane, right eye 01/01/2015 01/07/2015 Proliferative diabetic retinopathy, right eye 10/09/2014 10/10/2014 Traction retinal detachment involving macula of right eye 10/05/2014 10/10/2014 Vitreous hemorrhage of right eye 07/20/2014 10/10/2014 Social History Date Tobacco Use Types Packs/Day Years Used Quit: 07/20/2011 Former Smoker 1 45 Smokeless Tobacco: Never Used Drinks/Week oz/Week Comments Alcohol Use [employer] Yes Sex Assigned at Date Recorded Not on file Industry Job Start Date Occupation Not on file Not on file Not on file Travel End Travel History Travel Start No recent travel history available. Last Filed Vital Signs Reading Time Taken Comments Vital Sign 153/66 01/07/2015 10:45 AM CDT Blood Pressure 68 01/07/2015 10:45 AM CDT Pulse 36.3 C (97.3 F) 01/07/2015 10:45 AM CDT Temperature 9 01/07/2015 10:45 AM CDT Respiratory Rate 97% 01/07/2015 10:45 AM CDT Oxygen Saturation - - Inhaled Oxygen Concentration 108.9 kg (240 lb) 12/31/2014 2:27 PM CDT Weight 175.3 cm (5' 9.02") 12/31/2014 2:27 PM CDT Height 35.43 12/31/2014 2:27 PM CDT Body Mass Index Plan of Treatment Not on file Implants Device Identifier Shelf Expiration Date Model / Serial / Lot Implanted Type Area Manufactur er Stent Right Leg Implanted: (Quantity not on file) Explanted: (Quantity not on file) Results Not on filefrom Last 3 Months Advance Directives Date Inactivated Comments Code Status Date Activated 10/10/2014 1:04 PM Full Code 10/09/2014 4:48 PM 10/09/2014 4:48 PM Full Code 10/09/2014 4:47 PM 10/09/2014 4:47 PM Full Code 10/08/2014 11:48 AM
--- OUTSIDE RECORDS SUMMARY | 2019-04-03 06:20 | XMS REPORT | Encounter Summary ---
Author Author [facility] Organization [facility] Address Unknown Phone Unavailable Care Team Providers Care De Icer Finisher Name Role Phone PCP Unavailable Encounter Details Care Team Description Date Type Department Stalin Glover MD [address] [place] [address] [phone] 25 GAUGE EYE VITRECTOMY, MEMBRANE PEEL, ENDOLASER, , DELAMINATION OF INTERNAL LIMITING MEMBRANE, AIR-FLUID GAS EXCHANGE, SUBTENON'S INJECTION 01/07/2015 [place] [address] Social History Date Tobacco Use Types Packs/Day Years Used Quit: 07/20/2011 Former Smoker 1 45 Smokeless Tobacco: Never Used Drinks/Week oz/Week Comments Alcohol Use VERY RARE BEER Yes Sex Assigned at Date Recorded Not on file Industry Job Start Date Occupation Not on file Not on file Not on file Travel End Travel History Travel Start No recent travel history available. documented as of this encounter Last Filed Vital Signs Reading Time Taken [...] 12/31/2014 2:27 PM CDT Body Mass Index documented in this encounter Medications at Time of Discharge Start Date End Date Medication Sig Dispensed Refills amLODIPine (NORVASC) 10 Take 10 mg by 0 MG tablet mouth daily. Take DOS escitalopram oxalate Take 10 mg by 0 (LEXAPRO) 10 MG tablet mouth daily. Take DOS insulin aspart (NOVOLOG) Inject 20 0 100 unit/mL injection Units under the skin 3 (three) times a day before meals. insulin detemir (LEVEMIR) Inject 30 0 100 unit/mL injection Units under the skin nightly. metFORMIN (GLUCOPHAGE) Take 1,000 mg 0 1000 MG tablet by mouth 2 (two) times a day with meals. metoprolol (TOPROL-XL) Take 200 mg 0 200 MG 24 hr tablet by mouth daily. Take 1 tablet in am and 1/2 tablet in pm Take DOS pantoprazole (PROTONIX) Take 40 mg by 0 40 MG tablet mouth daily. Take DOS pregabalin (LYRICA) 50 MG Take 50 mg by 0 capsule mouth 2 (two) times a day. Take DOS atorvastatin (LIPITOR) 20 Take 20 mg by 0 MG tablet mouth daily. Take DOS 01/08/2015 01/11/2015 homatropine (ISOPTO Instill one 15 mL 0 HOMATROPINE) 5 % drop into the ophthalmic solution right eye 2 (two) times a day. 01/08/2015 01/18/2015 ofloxacin (OCUFLOX) 0.3 % Instill one 5 mL 0 ophthalmic solution drop into the right eye 4 (four) times a day. 01/08/2015 01/18/2015 prednisoLONE acetate Instill one 5 mL 0 (PRED FORTE) 1 % drop into the ophthalmic suspension right eye 4 (four) times a day. 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 Hypertension UNDER CONTROL PVD (peripheral vascular disease) RECENT ARTERIOGRAM/ MIDDLE TOE RIGHT FOOT AMPUTATION/LEFT FOOT GREAT AND SECON D TOES REMOVED/STENT IN RIGHT LEG Diabetes mellitus type II Hyperlipidemia UNDER COTROL WITH MEDS Chronic constipation BPH (benign prostatic hypertrophy) Prostate cancer ON HORMONE SHOTS Osteoarthritis FINGERS Neuropathy Peripheral vascular disease stent right leg; has lost toes on both feet Past Surgical History: Past Surgical History Procedure Laterality Date Toe amputation LEFT 2ND TOE AND GREAT TOE/RIGHT 3RD TOE Eye surgery Bilateral CATARACT Tonsillectomy Angioplasty percutaneous transluminal peripheral Vitrectomy eye 25 gauge Left 07/23/2014 Procedure: 25 GAUGE VITRECTOMY, ENDOLASER , MEMBRANE PEEL, AIR FLUID GAS EXCHA NGE AND SUNTENONS INJECTION; Surgeon: Stalin Glover MD; Location: [facility]; Service: Ophthalmology; Laterality: Left; Vitrectomy eye 25 gauge Right 10/09/2014 Procedure: 25 GAUGE VITRECTOMY, MEMBRANE PEEL, EVACUATION OF SUBRETINAL HEMORR LUCIA, ENDOLASER, AIR - FLUID GAS EXCHANGE SUBTENONS INJECTION; Surgeon: Stlain Glover MD; Location: [facility]; Service: Ophthalmology; Laterality: Right; Social History: History Social History Marital Status: Single Spouse Name: N/A Number of Children: N/A Years of Education: N/A Occupational History Not on file. Social History Main Topics Smoking status: Former Smoker -- 1.00 packs/day for 45 years Quit date: 07/20/2011 Smokeless tobacco: Never Used Alcohol Use: Yes Comment: VERY RARE BEER Drug Use: No Sexual Activity: Not on file Other Topics Concern Not on file Social History Narrative Family History: History reviewed. No pertinent family history. No Known Allergies Medications: No current facility-administered medications for this encounter. Current Outpatient Prescriptions Medication Sig Dispense Refill amLODIPine (NORVASC) 10 MG tablet Take 10 mg by mouth daily. Take DOS atorvastatin (LIPITOR) 20 MG tablet Take 20 mg by mouth daily. Take DOS escitalopram oxalate (LEXAPRO) 10 MG tablet Take 10 mg by mouth daily. Take DOS insulin aspart (NOVOLOG) 100 unit/mL injection Inject 20 Units under the ski n 3 (three) times a day before meals. insulin detemir (LEVEMIR) 100 unit/mL injection Inject 30 Units under the sk in nightly. metFORMIN (GLUCOPHAGE) 1000 MG tablet Take 1,000 mg by mouth 2 (two) times a day with meals. metoprolol (TOPROL-XL) 200 MG 24 hr tablet Take 200 mg by mouth daily. Take 1 tablet in am and 1/2 tablet in pm Take DOS pantoprazole (PROTONIX) 40 MG tablet Take 40 mg by mouth daily. Take DOS pregabalin (LYRICA) 50 MG capsule Take 50 mg by mouth 2 (two) times a day. Deandre GONZALES OCULAR EXAMINATION: VISUAL ACUITY: with correction OD: HM OS: 20/30 APPLANATION TONOMETRY: OD: 15 mmHg OS: 15 mmHg LIDS: ? 2+ blepharochalasis OU SLIT-LAMP BIOMICROSCOPY: ? Conjunctiva/Sclera o Nasal and temporal pinguecula, 1+ injection OU ? Cornea o Clear OU o Peripheral arcus senilis 1+ OU ? Anterior Chamber o Deep and quiet OU ? Iris o Normal contours and configurations OU ? Lens o PCIOL OU ? Anterior Vitreous o Clear OD o Trace strand OS FUNDUS BIOMICROSCOPY: ? Optic Nerve o Cup-to-disc ratio of 0.15 OU ? Vascular o Arteriolar narrowing, venous engorgement OU ? Macula o Epiretinal membrane with macular pucker OD o Mild epiretinal membrane OS ? Periphery o Widespread louise retinal laser photocoagulation OU Impressions: Patient Active Problem List Diagnosis SNOMED CT(R) Type II or unspecified type diabetes mellitus with ophthalmic manifestations , not stated as uncontrolled DIABETES MELLITUS Proliferative diabetic retinopathy, both eyes DIABETES MELLITUS Epiretinal membrane, right eye EPIRETINAL MEMBRANE Plan: Mr. Martínez is to undergo a 25 gauge vitrectomy, membrane peel, delamination of in ternal limiting membrane, and intravitreal steroid injection OD under general an esthesia. Electronically signed by Stalin Glover 01/01/2015 2:31 PM documented in this encounter Nursing Notes * Beverly Jones RN - 01/07/2015 11:19 AM CDT Pt up with assistance at bedside and assisted with getting dressed. IV removed. Discharge instructions discussed with pt and his ex-. All questions answered . Eye drops & eye kit given to pt. All belongings with pt including glasses & dentures. * Beverly Jones RN - 01/07/2015 10:[address] Baibn for sign out. * Beverly Jones RN - 01/07/2015 10:43 AM CDT Removed NC a couple of times however pts O2 sat 88-90%. Encouraged deep breathin g and use of I.S. O2 sat back up to 93-96%. * Beverly Jones RN - 01/07/2015 10:14 AM CDT Patient arousable on calling. Denies any pain. VSS. Replaced NRB with 4L NC. * Melania Dobbs RN - 01/04/2015 10:57 AM CDT Geno, nurse at Dr. Glover's office called regarding pts lantus use, he was told to take entire dose but pt stated he had problem with blood sugar before l ast surgery, blood sugars too high. Pt was requesting to take 1/2 dose night b efore; called Dr. Devries who agreed that it would be acceptable to only take 1/ 2 Dose or 15 units. documented in this encounter Miscellaneous Notes * Operative Note - Stalin Glover MD - 01/07/2015 10:18 AM CDT Name: JOHN MARTÍNEZ _[id number] Date of : 1945 Attending Physician: Stalin Glover MD Date of Procedure: 01/07/2015 PREOPERATIVE DIAGNOSES: 1. Proliferative diabetic retinopathy. 2. Disseminated chorioretinal scars. 3. Epiretinal membranes, macular pucker, right eye. 4. Traction retinal detachment. 5. Proliferative vitreoretinopathy. 6. Type 2 diabetes. 7. Retinal diabetic macular edema. OPERATIVE PROCEDURES: 1. A 25-gauge pars plana vitrectomy. 2. Membrane peeling. 3. Delamination of internal limiting membrane. 4. Endolaser photocoagulation. 5. Air-fluid gas exchange. 6. Subtenons steroid injection. SURGEON: Dr. Stalin Glover. ANESTHESIA: General endotracheal. COMPLICATIONS: None. OPERATIVE PROCEDURE IN DETAIL: After obtaining the proper informed consent, the patient was premedicated and was transported to the operating room. The patient was placed in the supine position and with the appropriate cardiac monitoring and intravenous infusion lines, a general endotracheal anesthetic was induced by the department of anesthesia without difficulty. The patient was then prepped and draped in the usual sterile fashion for vitreoretinal surgery. Ivy lid sp eculums were inserted right eye and the operating microscope was positioned abov e the patient's right eye. Copious irrigation with normal salt tissue solution was delivered to the conjunctival cul-de-sacs and to the lid margins. A dilia wa s then positioned exactly 3.5 mm posterior to the corneoscleral limbus in the in ferior temporal quadrant. A 25-gauge trocar stylet system was introduced in the vitreous cavity at that dilia. A biplanar incision was utilized and the stylet was withdrawn. A 4.0-mm cannulated infusion was placed in the trocar and approp riate placement of the trocar and infusion in the vitreous cavity was confirmed by direct observation prior to opening the infusion line at 35 mmHg pressure. S imilar sclerotomies were then created in the superotemporal and superonasal quad rants exactly 3.5 mm posterior to the corneoscleral limbus with the same type of 25-gauge trocar stylet system. The stylets were withdrawn and once again self- sealing trocars were confirmed in their position by direct observation. The BIO M wide field microscopic viewing system was then rotated into position. With th e high-speed 25-gauge vitrectomy instrument in the superior temporal sclerotomy site and the intraocular light pipe in the superior nasal site, vitrectomy was c arried out. Prior vitrectomy had been performed. Therefore, extensive 360-degr ee scleral depression was used to remove any residual peripheral vitreous. Foll owing completion of vitrectomy, the intraocular instruments were removed and the BIOM was rotated out of position. A flat contact lens was placed on the cornea and using both the internal limiting membrane forceps and end gripping 25-gauge forceps, preretinal fibrotic membranes were engaged and delaminated. The fixed retinal folds were mobilized and the retinal tears were freed temporal to the m acula. Following completion of epiretinal membrane peeling, the contact lens wa s removed and the BIOM was again returned to the operative field. The vitrectom y instrument was used to perform an air-fluid exchange. Residual fluid was tabitha luisito with a brush backflush needle. Indocyanine green dye was then placed on the macular surface and was left in contact for exactly 60 seconds. The dye was th en aspirated and fluid was returned to the eye. Adequate staining of the manager of internal audit al limiting membrane was identified. The BIOM was then again rotated out of pos ition and a contact lens was placed on the cornea. Using a 25-gauge internal li miting membrane forceps, the residual internal limiting membrane was delaminated through the macular zone. A removal extended over a 2 disk diameter radius emmy tered on the fovea. Following completion of internal limiting membrane removal, the contact lens was again removed and air-fluid exchange was performed. The r etinal tears flattened completely and there was no residual retinal distortion o r folds present. The endolaser was introduced and focal laser was delivered to the zones of posterior tears. Additional peripheral panretinal laser was also a pplied with good uptake. At completion of laser, the intraocular instruments we re removed. The superior nasal trocar was pulled as massage and electrocautery were delivered to the sclerotomy site. The sclerotomy was found to be airtight. A venting device was placed in the superior temporal sclerotomy side and air-g as exchange using 15% propofol propylene was delivered. The cannula and venting device were then removed as massage and electrocautery were delivered to the sc lerotomy site. Again, the sclerotomy was found to be airtight. A similar techn ique was used as the infusion canula and trocar were removed from inferior tempo ral sclerotomy site. The eye was then copiously irrigated with Garamycin ophtha lmic solutions. Depo-Medrol 40 mg per mL was injected in the subtenon space. I ndirect ophthalmoscopy showed good optic nerve perfusion with an attached retina and early laser photocoagulation reaction. At completion of procedure, the eye was patched with topical TobraDex ointment, the anesthetic agent was reversed w ithout difficulty. The patient was extubated and was transported to the recover y room in good condition. Stalin Glover MD [id number] CC: * Brief Operative Note - Stalin Glover MD - 01/07/2015 9:37 AM CDT 25 GAUGE EYE VITRECTOMY, MEMBRANE PEEL, ENDOLASER, , DELAMINATION OF INTERNAL LI MITING MEMBRANE, AIR-FLUID GAS EXCHANGE, SUBTENON'S INJECTION , VITRECTOMY ENDOL ASER MEMBRANE PEEL EYE Procedure Note John Tran Mauricio 01/07/2015 Pre-op Diagnosis: EPIRETINAL MEMBRANE 362.56 Post-op Diagnosis: Post-Op Diagnosis Codes: * Proliferative diabetic retinopathy of both eyes [250.50, 362.02] * Macular puckering of retina [362.56] * Retinal detachment with multiple retinal tears [361.02] * Proliferative vitreoretinopathy, right eye [362.29] * Type II or unspecified type diabetes mellitus with ophthalmic manifestation s, not stated as uncontrolled [250.50] Procedure(s): 25 GAUGE EYE VITRECTOMY, MEMBRANE PEEL, ENDOLASER, , DELAMINATION OF INTERNAL LI MITING MEMBRANE, AIR-FLUID GAS EXCHANGE, SUBTENON'S INJECTION VITRECTOMY ENDOLASER MEMBRANE PEEL EYE Surgeon(s) and Role: * Stalin Glover MD - Primary Anesthesia Type: General Staff: Customer Account Executive: Amita Robbins RN Relief Scrub: María Ang RN Scrub Person: Hung Birmingham Anesthesiologist: Rosas Ceja MD; Rachel Babin MD Anesthesiologist Physician Liaison: JOSE A Lockett; JOSE A Garcia Findings: Posterior traction, Endolaser # 391, 15% [id number] Complications: None Condition: Good Estimated Blood Loss: Minimal Specimens: * No orders in the log * Drains: None Stalin Glover Date: 01/07/2015 Time: 9:37 AM documented in this encounter Plan of Treatment Not on filedocumented as of this encounter Procedures Comments Procedure Name Priority Date/Time Associated Diagnosis LAB SUMMARY 01/08/2015 2:15 AM CDT GLUCOSE POC Routine 01/07/2015 9:46 AM CDT GLUCOSE POC Routine 01/07/2015 8:32 AM CDT VITRECTOMY WITH ENDOLASER 01/07/2015 Proliferative diabetic PHOTOCOAGULATION OF 7:52 AM CDT retinopathy of both eyes RETINA AND EPIMACULAR (HCC) MEMBRANE PEELING Macular puckering of retina Retinal detachment with multiple retinal tears Proliferative vitreoretinopathy, right eye Type II or unspecified type diabetes mellitus with ophthalmic manifestations, not stated as uncontrolled (HCC) VITRECTOMY, USING 01/07/2015 Proliferative diabetic 25-GAUGE INSTRUMENTS 7:52 AM CDT retinopathy of both eyes (HCC) Macular puckering of retina Retinal detachment with multiple retinal tears Proliferative vitreoretinopathy, right eye Type II or unspecified type diabetes mellitus with ophthalmic manifestations, not stated as uncontrolled (HCC) GLUCOSE POC Routine 01/07/2015 7:11 AM CDT BASIC METABOLIC PANEL Routine 01/07/2015 6:48 AM CDT documented in this encounter Results * LAB SUMMARY (01/08/2015 2:15 AM CDT) Narrative Performed At Ordered by an unspecified provider. * GLUCOSE POC (01/07/2015 9:46 AM CDT) Only the most recent of 3 results within the time period is included. Glucose POC 153 (H) 70 - 100 mg/dL [facility] Specimen Performing Organization Address City/State/Zipcode Phone Number [address] [address] LABORATORIES * Basic Metabolic Panel (01/07/2015 6:48 AM CDT) Pathologist [facility] Sodium 137 133 - 147 MEQ/L [facility] Potassium 5.2 3.5 - 5.3 MEQ/L [facility] Chloride 102 96 - 112 MEQ/L [facility] Carbon Dioxide 27 20 - 32 MEQ/L [facility] Anion Gap 8 5 - 17 [facility] Calcium 9.7 8.4 - 10.5 mg/dL [facility] Glucose 261 (H) 70 - 100 mg/dL [facility] Blood Urea 39 (H) 7 - 26 mg/dL [facility] Creatinine 1.3 0.6 - 1.3 mg/dL [facility] eGFR Male AA 67 60 - 200 [facility] Comment: REGIONAL Chronic Kidney Disease less LABORATORIES than 60 mL/min/1.73 sq.m Kidney failure less than 15 mL/min/1.73 sq.m eGFR Male 55 (L) 60 - 200 [facility] Non-AA Comment: REGIONAL Chronic Kidney Disease less LABORATORIES than 60 mL/min/1.73 sq.m Kidney failure less than 15 mL/min/1.73 sq.m Specimen Blood Performing Organization Address City/State/Zipcode Phone Number [facility] [address] [place] [address] LABORATORIES documented in this encounter Visit Diagnoses Diagnosis Proliferative diabetic retinopathy of both eyes (HCC) Type II or unspecified type diabetes mellitus with ophthalmic manifestations, not stated as uncontrolled Macular puckering of retina Retinal detachment with multiple retinal tears Proliferative vitreoretinopathy, right eye Other nondiabetic proliferative retinopathy Type II or unspecified type diabetes mellitus with ophthalmic manifestations, not stated as uncontrolled(250.50) (HCC) Type II or unspecified type diabetes mellitus with ophthalmic manifestations, not stated as uncontrolled documented in this encounter Administered Medications Action Date Dose Rate Site Medication Order MAR Action 01/07/2015 8:23 AM CDT 15 mL balanced salt irrig (BSS) solution Given As needed, Starting Wed01/07/15 at 0823, Intra-op 01/07/2015 8:23 AM CDT BSS PLUS intraocular solution (500 mL) Given w/epinephrine 0.3 mg and dextrose 50% 3 mL Right Eye, As Needed in OR, per intra op, Starting Wed01/07/15 at 0745, Intra-op 01/07/2015 7:25 AM CDT 1 drop flurbiprofen (OCUFEN) 0.03 % ophthalmic Given solution 1 drop 1 drop, Left Eye, Every 5 min, First dose on Wed01/07/15 at 0715, For 3 doses, Pre-op, Start medications in Pre-op Admissions 45 minutes prior to surgery, 1 drop Given 01/07/2015 7:20 AM CDT 1 drop Given 01/07/2015 7:15 AM CDT 01/07/2015 8:23 AM CDT 1 Bottle gentamicin (GARAMYCIN) 0.3 % ophthalmic Given solution As needed, Starting 01/07/15 at 0823, Intra-op 01/07/2015 7:40 AM CDT 1 drop homatropine (ISOPTO HOMATROPINE) 5 % Given ophthalmic solution 1 drop 1 drop, Both Eyes, Every 5 min, First dose on 01/07/15 at 0715, For 3 doses, Pre-op, Start medications in Pre-op Admissions 45 minutes prior to surgery, 1 drop Given 01/07/2015 7:37 AM CDT 1 drop Given 01/07/2015 7:30 AM CDT 01/07/2015 8:23 AM CDT 2 drops hydroxypropyl methylcellulose (GONAK) Given 2.5 % ophthalmic solution As needed, Starting Wed01/07/15 at 0823, Intra-op 01/07/2015 8:23 AM CDT 1.5 mg Operative Site indocyanine green (IC-GREEN) injection Given As needed, Starting Wed01/07/15 at 0823, Intra-op 01/07/2015 7:30 AM CDT 6 Units Abdominal Tissue insulin lispro (HumaLOG) injection 6 Given Units 6 Units, Subcutaneous, 3 times daily before meals, First dose on Wed01/07/15 at 1130, Pre-op 01/07/2015 10:03 AM CDT 50 mL/hr 50 mL/hr lactated ringers infusion New Bag 50 mL/hr, Intravenous, Continuous, Starting Wed01/07/15 at 0715, Pre-op New Bag 01/07/2015 9:42 AM CDT 50 mL/hr 50 mL/hr New Bag 01/07/2015 7:37 AM CDT 01/07/2015 6:50 AM CDT 0.1 mL lidocaine (XYLOCAINE) 10 mg/mL (1 %) Given injection 0.1-0.3 mL 0.1-0.3 mL, Intradermal, Once, Wed01/07/15 at 0715, For 1 dose, Pre-op, Prior to / for IV insertion., 01/07/2015 9:10 AM CDT 40 mg Right Eye methylPREDNISolone acetate (DEPO-MEDROL) Given 40 mg/mL injection As needed, Starting Wed01/07/15 at 0910, Intra-op 01/07/2015 8:23 AM CDT 1,000 mL Operative Site multiple electrolyte (pH 7.4) (NORMOSOL) Given solution As needed, Starting Wed01/07/15 at 0823, Intra-op 01/07/2015 7:25 AM CDT 1 drop ofloxacin (OCUFLOX) 0.3 % ophthalmic Given solution 1 drop 1 drop, Right Eye, Every 5 min, First dose on 01/07/15 at 0715, For 3 doses, Pre-op, Number of drops 3 spaced 5 minutes apart., 1 drop Given 01/07/2015 7:20 AM CDT 1 drop Given 01/07/2015 7:15 AM CDT 01/07/2015 7:39 AM CDT 1 drop phenylephrine (MYDFRIN) 2.5 % ophthalmic Given solution 1 drop 1 drop, Both Eyes, Every 5 min, First dose on Wed01/07/15 at 0715, For 3 doses, Pre-op, Start medications in Pre-op Admissions 45 minutes prior to surgery, 1 drop Given 01/07/2015 7:30 AM CDT 1 drop Given 01/07/2015 7:25 AM CDT 01/07/2015 8:21 AM CDT 2 drops phenylephrine (MYDFRIN) 2.5 % ophthalmic Given solution As needed, Starting Wed01/07/15 at 0817, Intra-op 2 drops Given 01/07/2015 8:17 AM CDT 01/07/2015 7:25 AM CDT 1 drop tropicamide (MYDRIACYL) 1 % ophthalmic Given solution 1 drop 1 drop, Both Eyes, Every 5 min, First dose on Wed01/07/15 at 0715, For 3 doses, Pre-op, Start medications in Pre-op Admissions 45 minutes prior to surgery, 1 drop Given 01/07/2015 7:20 AM CDT 1 drop Given 01/07/2015 7:15 AM CDT documented in this encounter
--- OUTSIDE RECORDS SUMMARY | 2019-04-03 06:21 | XMS REPORT | Encounter Summary ---
Author Author [facility] Organization [facility] Address Unknown Phone Unavailable Care Team Providers Care Spare Parts Clerk Name Role Phone PCP Unavailable Reason for Referral * (Routine) Referred By Contact Referred To Contact Status Reason Specialty Diagnoses / Procedures Stalin Glover MD [address] [place] [address] Closed Procedures Discharge follow-up * (Routine) Referred By Contact Referred To Contact Status Reason Specialty Diagnoses / Procedures Stalin Glover MD [address] [place] [address] at Bedside and send home with: Eye pack, Bottle of eye wash, Cotton balls, Tape, Eye shield, Eye patch (Please specify) * (Routine) Referred By Contact Referred To Contact Status Reason Specialty Diagnoses / Procedures Stalin Glover MD [address] [place] [address] Closed Procedures Discharge instructions * (Routine) Referred By Contact Referred To Contact Status Reason Specialty Diagnoses / Procedures Stalin Glover MD [address] [place] [address] Closed Procedures Nurse to identify discharge medications to the patient as "dilating drops", "antibiotic drops", "pressure drops", etc * (Routine) Referred By Contact Referred To Contact Status Reason Specialty Diagnoses / Procedures Stalin Glover MD [address] [place] [address] Closed Procedures Eye patch to remain in place until removed at physician's office * (Routine) Referred By Contact Referred To Contact Status Reason Specialty Diagnoses / [place] [id number] [address] Closed Procedures Activity order * (Routine) Referred By Contact Referred To Contact Status Reason Specialty Diagnoses / [place] [id number] [address] Closed Procedures Notify physician Encounter Details Care Team Description [place] [id number] [address] [phone] Proliferative diabetic retinopathy of both eyes (HCC) (Primary Dx); Macular puckering of retina; Retinal detachment with multiple retinal tears; Proliferative vitreoretinopathy, right eye; Type II or unspecified type diabetes mellitus with ophthalmic manifestations, not stated as uncontrolled (HCC) 01/07/2015 [facility] Encounter [address] [place] [address] Social History Date Tobacco Use Types Packs/Day [...] Glover MD - 01/01/2015 2:31 PM CDT [facility] History & Physical Date: 01/01/2015 PCP: Family [...] SUNTENONS INJECTION; Surgeon: Stalin Glover MD; Location: [facility]; Service: Ophthalmology; Laterality: Left; Vitrectomy eye 25 gauge Right 10/09/2014 Procedure: 25 GAUGE VITRECTOMY, MEMBRANE PEEL, EVACUATION OF SUBRETINAL HEMORR LUCIA, ENDOLASER, AIR - FLUID GAS EXCHANGE SUBTENONS INJECTION; Surgeon: Stalin Glover MD; Location: [facility]; Service: Ophthalmology; Laterality: Right; Social History: History [...] by mouth 2 (two) times a day. T christal GONZALES OCULAR EXAMINATION: VISUAL ACUITY: with correction [...] - 01/07/2015 10:[address] Babin for sign out. * Beverly Jones RN [...] Dobbs RN - 01/04/2015 10:57 AM CDT Geno nurse at Dr. Glover's office called regarding [...] to the eye. Adequate staining of the accounting intern al limiting membrane was identified. The BIOM [...] room in good condition. Stalin Glover MD [id number] CC: * Brief Operative Note - Stalin [...] MD - Primary Anesthesia Type: General Staff: Drywall Hanger Framer: Amita Robbins RN Relief Scrub: María Ang RN Scrub Person: Hung [place] Anesthesiologist: Rosas Ceja MD; Rachel Babin MD Anesthesiologist Beauty Parlor Cleaner: JOSE A Lockett; JOSE A Garcia Findings: [...] POC 153 (H) 70 - 100 mg/dL [facility] Specimen Performing Organization Address City/State/Zipcode Phone Number [facility] [address] [place] [address] LABORATORIES * Basic Metabolic Panel (01/07/2015 6:48 AM CDT) Sodium 137 133 - 147 MEQ/L [facility] Potassium 5.2 3.5 - 5.3 MEQ/L [facility] Chloride 102 96 - 112 MEQ/L [facility] LABORATORIES Carbon Dioxide 27 20 - 32 MEQ/L [facility] Anion Gap 8 5 - 17 [facility] Calcium 9.7 8.4 - 10.5 mg/dL [facility] Glucose 261 (H) 70 - 100 mg/dL [facility] Blood Urea 39 (H) 7 - 26 mg/dL [facility] Creatinine 1.3 0.6 - 1.3 mg/dL [facility] eGFR Male AA 67 60 - 200 [facility] Comment: REGIONAL Chronic Kidney Disease less LABORATORIES than 60 mL/min/1.73 sq.m Kidney failure less than 15 mL/min/1.73 sq.m eGFR Male 55 (L) 60 - 200 [facility] Non-AA Comment: REGIONAL Chronic Kidney Disease less LABORATORIES than 60 mL/min/1.73 sq.m Kidney failure less than 15 mL/min/1.73 sq.m Specimen Blood Performing Organization Address City/State/Zipcode Phone Number [facility] [address] [place] [address] LABORATORIES documented in this encounter Visit Diagnoses Diagnosis Proliferative diabetic retinopathy of both eyes (HCC) - Primary Type II or unspecified type diabetes mellitus [...] Rate Site Medication Order MAR Action 01/07/2015 7:25 AM CDT 1 drop flurbiprofen (OCUFEN) 0.03 % ophthalmic Given solution 1 drop 1 drop, Left Eye, Every 5 min, First dose on Wed01/07/15 at 0715, For 3 doses, Pre-op, Start medications in Pre-op Admissions 45 minutes prior to surgery, 1 drop Given 01/07/2015 7:20 AM CDT 1 drop Given 01/07/2015 7:15 AM CDT 01/07/2015 7:40 AM CDT 1 drop homatropine (ISOPTO HOMATROPINE) 5 % Given ophthalmic solution 1 drop 1 drop, Both Eyes, Every 5 min, First dose on Wed01/07/15 at 0715, For 3 doses, Pre-op, Start medications in Pre-op Admissions 45 minutes prior to surgery, 1 drop Given 01/07/2015 7:37 AM CDT 1 drop Given 01/07/2015 7:30 AM CDT 01/07/2015 7:30 AM CDT 6 Units Abdominal [...] Prior to / for IV insertion., 01/07/2015 7:25 AM CDT 1 drop ofloxacin (OCUFLOX) 0.3 % ophthalmic Given solution 1 drop 1 drop, Right Eye, Every 5 min, First dose on Wed01/07/15 at 0715, For 3 doses, Pre-op, Number [...] drop Given 01/07/2015 7:25 AM CDT 01/07/2015 7:25 AM CDT 1 [...]
--- OUTSIDE RECORDS SUMMARY | 2019-04-03 06:21 | XMS REPORT | Encounter Summary ---
Author Author [facility] Organization [facility] Address Unknown Phone Unavailable Care Team Providers Care Tool Distributor Name Role Phone PCP Unavailable Encounter Details Care Team Description Date [place] [address] [place] [address] [phone] 25 GAUGE VITRECTOMY, MEMBRANE PEEL, EVACUATION OF SUBRETINAL HEMORRHAGE, ENDOLASER, AIR - FLUID GAS EXCHANGE SUBTENONS INJECTION 10/09/[address] [address] Social History Date Tobacco Use Types Packs/Day [...] Signs Reading Time Taken Comments Vital Sign 120/62 10/10/2014 7:12 AM CUT OFF SAW TENDER METAL Blood Pressure 68 10/10/2014 8:32 AM CUT OFF [employer] T[employer] METAL Pulse 36.4 C (97.5 F) 10/10/2014 7:12 AM CUT OFF SAW TENDER METAL Temperature 18 10/10/2014 7:12 AM CUT OFF SAW TENDER METAL Respiratory Rate 92% 10/10/2014 8:32 AM CUT OFF SAW T[employer]ER METAL Oxygen Saturation - - Inhaled Oxygen Concentration 109.8 kg (242 lb) 10/10/2014 7:12 AM CUT OFF SAW TENDER METAL Weight 175.3 cm (5' 9.02") 10/10/2014 7:12 AM CUT OFF SAW TENDER METAL Height 35.72 10/10/2014 7:12 AM CUT OFF SAW TENDER METAL Body Mass Index documented in this encounter [...] 0 MG tablet mouth daily. Take DOS 10/10/2014 10/13/2014 homatropine (ISOPTO Administer 1 15 mL 0 HOMATROPINE) 5 % drop to the ophthalmic solution right eye 2 (two) times a day. 10/10/2014 10/20/2014 ofloxacin (OCUFLOX) 0.3 % Administer 1 5 mL 0 ophthalmic solution drop to the right eye 4 (four) times a day. 10/10/2014 10/20/2014 prednisoLONE acetate Administer 1 5 mL 0 (PRED FORTE) 1 % drop to the ophthalmic suspension right eye 4 (four) times a day. documented as of this encounter H&P Notes * Stalin Glover MD - 10/08/2014 2:50 PM CUT OFF SAW TENDER METAL H&P was reviewed, the patient was examined, no change has occurred in the patient's condition since H&P completed. OFF SAW TENDER METAL * Stalin Glover MD - 10/05/2014 10:53 AM CUT OFF SAW TENDER METAL [facility] History & Physical Date: 10/05/2014 PCP: Family D No HPI: proliferative diabetic retinopathy with vitreous hemorrhage and a traction retinal detachment in the right eye Past Medical History: Past Medical History Diagnosis Date Sam's palsy VERY LITTLE RESIDUAL/LEFT EYE LOWER THAN RIGHT Retinal disorder Cataract 2013 Visual impairment WEARS GLASSES Exercise tolerance finding [employer] WITHOUT SOA Hypertension UNDER CONTROL PVD (peripheral vascular disease) RECENT ARTERIOGRAM/ MIDDLE TOE RIGHT FOOT AMPUTATION/LEFT FOOT GREAT AND SECON D TOES REMOVED/STENT IN RIGHT LEG Diabetes mellitus type II Peripheral vascular disease Hyperlipidemia UNDER COTROL WITH MEDS Chronic constipation BPH (benign prostatic hypertrophy) Prostate cancer ON HORMONE SHOTS Osteoarthritis FINGERS Past Surgical History: Past Surgical History Procedure Laterality Date Toe amputation LEFT 2ND TOE AND GREAT TOE/RIGHT 3RD TOE Eye surgery Bilateral CATARACT Tonsillectomy Angioplasty percutaneous transluminal peripheral Vitrectomy eye 25 gauge Left 07/23/2014 Procedure: 25 GAUGE VITRECTOMY, ENDOLASER , MEMBRANE PEEL, AIR FLUID GAS EXCHA NGE AND SUNTENONS INJECTION; Surgeon: Stalin Glover MD; Location: [facility]; Service: Ophthalmology; Laterality: Left; Social History: History Social History Marital Status: [...] Concern Not on file Social History Narrative No narrative on file Family History: No family history on file. No Known Allergies Medications: No current facility-administered medications for this encounter. Current Outpatient Prescriptions Medication Sig Dispense Refill amLODIPine (NORVASC) 10 MG tablet Take 10 mg by mouth daily. atorvastatin (LIPITOR) 20 MG tablet Take 20 mg by mouth daily. escitalopram oxalate (LEXAPRO) 10 MG tablet Take 10 mg by mouth daily. insulin aspart (NOVOLOG) 100 unit/mL injection Inject 20 Units under the ski n 3 (three) times a day before meals. insulin detemir (LEVEMIR) 100 unit/mL injection Inject 30 Units under the sk in nightly. metFORMIN (GLUCOPHAGE) 1000 MG tablet Take 1,000 mg by mouth 2 (two) times a day with meals. metoprolol (LOPRESSOR) 100 MG tablet Take 100 mg by mouth daily. metoprolol (TOPROL-XL) 200 MG 24 hr tablet Take 200 mg by mouth daily. pantoprazole (PROTONIX) 40 MG tablet Take 40 mg by mouth daily. prednisoLONE acetate (PRED FORTE) 1 % ophthalmic suspension Administer 1 andrew p to the right eye 4 (four) times a day. pregabalin (LYRICA) 50 MG capsule Take 50 mg by mouth 2 (two) times a day. OCULAR EXAMINATION: VISUAL ACUITY: with correction OD: CF OS: 20/50 APPLANATION TONOMETRY: OD: 13 mmHg OS: 12 mmHg LIDS: ? 2+ blepharochalasis OU SLIT-LAMP BIOMICROSCOPY: ? Conjunctiva/Sclera o Nasal and temporal pinguecula, 1+ injection OU ? Cornea o Clear OU o Peripheral arcus senilis 1+ OU ? Anterior Chamber o Deep and quiet OU ? Iris o Normal contours and configurations OU ? Lens o PCIOL OU ? Anterior Vitreous o Trace strand OD o Normal OU FUNDUS BIOMICROSCOPY: Unable to visualize and posterior details due to disperse d vitreous hemorrhage and traction OD ? Optic Nerve o Cup-to-disc ratio of 0.2, temporal pallor OS ? Vascular o Normal OS ? Macula o Delicate epiretinal membrane OS ? 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 Martínez is to undergo a 25 gauge pars plana vitrectomy, membrane peel, endolas er, and an air fluid gas exchange OD under general anesthesia. Electronically signed by Stalin Glover 10/05/2014 10:54 AM OFF SAW TENDER METAL documented in this encounter Miscellaneous Notes * Operative Note - Stalin Glover MD - 09/02/2015 6:52 AM CUT OFF SAW TENDER METAL Name: JOHN MARTÍNEZ _[id number] Date of : 1945 Attending Physician: Stalin Glover MD Date of Procedure: 10/09/2014 PREOPERATIVE DIAGNOSES: 1. Proliferative diabetic retinopathy. 2. Vitreous hemorrhage, right eye. POSTOPERATIVE DIAGNOSES: 1. Proliferative diabetic retinopathy, right eye. 2. Type 2 diabetes with ophthalmic manifestations. 3. Vitreous hemorrhage, right eye. 4. Vitreous membranes and strands, right eye. 5. Epiretinal membrane, right eye. 6. Traction of retinal detachment, right eye. 7. Diabetic macular edema. OPERATIVE PROCEDURES: 1. A 25-gauge pars plana vitrectomy. 2. Membrane peeling. 3. Evacuation of subretinal hemorrhage. 4. Endolaser photocoagulation. 5. Air-fluid gas exchange. 6. Subtenon steroid injection. ANESTHESIA: General endotracheal. COMPLICATIONS: None. SURGEON: Stalin Glover M.D. OPERATIVE PROCEDURE IN DETAIL: After obtaining proper informed consent, the pat ient was premedicated and was transported to the operating room. The patient wa s placed in the supine position and with the appropriate cardiac monitoring and intravenous infusion lines, a general endotracheal anesthetic was induced by the department of anesthesia without difficulty. The patient was then prepped and draped in the usual sterile fashion for vitreoretinal surgery. Ivy lid specul ums were inserted right eye and the operating microscope was positioned above th e patient's right eye. Copious irrigation with normal salt tissue solution was delivered to the conjunctival cul-de-sacs and to the lid margins. A dilia was th en positioned exactly 3.5 mm posterior to the corneoscleral limbus in the inferi or temporal quadrant. The inferior temporal quadrant. A 25-gauge trocar stylet system was introduced in the vitreous cavity at that dilia. A biplanar incision was utilized and the stylet was withdrawn. A 4.0-mm cannulated infusion was pl aced in the trocar. Appropriate placement of the trocar and infusion in the vit reous cavity was confirmed by direct observation prior to opening the infusion l ine at 35 mmHg pressure. Similar sclerotomies were created in the superotempora l and superonasal quadrants exactly 3.5 mm posterior to the corneoscleral limbus using the same type of 25-gauge trocar stylet system. Again, placement of the trocars was confirmed by direct observation. The BIOM wide field microscopic vi renee system was then rotated into position. With the high-speed 25-gauge vitre ctomy instrument in the superior temporal sclerotomy site and the intraocular li ght pipe in the superior nasal site, a central core vitrectomy was initiated wit hout difficulty. The vitrectomy was carried posteriorly and numerous zones of v itreoretinal adhesion and epiretinal membrane were identified. The curved 25-ga uge intraocular scissors were introduced and the vitreoretinal adhesions were se quentially cut. An enbloc type of dissection was carried out. The posterior me mbrane was carefully delaminated using both scissors and forceps. The posterior hyaloid with associated membranes was elevated to the mid vitreous cavity and p eripheral vitrectomy was carried out using extensive 360 degrees scleral depress ion. Following the membrane peeling, posterior drainage was carried out using a brush backflush needle. Subretinal hemorrhage was identified and it was extrac nawaf through a posterior break. Air-fluid exchange was performed and the retina flattened in its entirety. Due the directional endolaser probe was introduced a nd extensive endolaser was delivered to the posterior segment surrounding porcelain mixer ior retinal breaks and to the peripheral equatorial zone in a panretinal fashion . A total of 1299 applications were delivered with good uptake. Following comp letion of endolaser photocoagulation, the intraocular instruments were removed a nd the superior nasal trocar was pulled. Massage and electrocautery were delive red to the sclerotomy site, which was found to be airtight. A venting device wa s then placed in the superior temporal trocar. Air gas exchange using 15% propo fol perfluoropropane (C3F8) gas was carried out. The trocar and venting device were then removed and massage and electrocautery were again delivered to the scl erotomy site, which was found to be airtight. A similar technique was utilized as the infusion cannula and trocar were removed from the inferior temporal site. Indirect ophthalmoscopy showed attached retina with widespread laser photocoag ulation reaction and good optic nerve perfusion. Intraocular tension by [place]ra[place] er tonometry was 15 mmHg. The eye was then copiously irrigated with Garamycin o phthalmic solution. Depo-Medrol 40 mg per mL was injected in the subtenon space . The eye was patched with topical TobraDex ointment. At completion of procedu re, the anesthetic agent was reversed without difficulty. The patient was extub ated and was transported to the recovery room in good condition. Stalin Glover MD [id number] CC: OFF SAW TENDER METAL * Multidisciplinary Discharge Rounds Note - Stalin Glover MD - 10/10/2014 8:00 AM CUT OFF SAW TENDER METAL [facility] DISCHARGE NOTE Patient: John Martínez : 1945 Age: 69 y.o. SUBJECTIVE: Patient comfortable. EXAM: Vital signs stable, afebrile IOP: 20 mmHg Lids: 1+ lid edema Conjunctiva: 3+ injeciton Cornea: clear Anterior Chamber: formed Lens: PCIOL Media: 100% gas fill Optic Nerve - Cup-to-disc: 0.2, blood clot on nerve Macula: flat Peripheral Retina: good early laser reaction Procedure(s): 25 GAUGE VITRECTOMY, MEMBRANE PEEL, EVACUATION OF SUBRETINAL HEMORRHAGE, ENDOLAS ER, AIR - FLUID GAS EXCHANGE SUBTENONS INJECTION FINAL DIAGNOSIS: Post-Op Diagnosis Codes: * Proliferative diabetic retinopathy, right eye [250.50, 362.02] * Type II or unspecified type diabetes mellitus with ophthalmic manifestation s, not stated as uncontrolled [250.50] * Vitreous hemorrhage of right eye [379.23] * Vitreous membranes and strands of right eye [379.25] * Epiretinal membrane, right eye [362.56] * Traction retinal detachment, right [361.81] * Diabetic macular edema [250.50, 362.07, 362.01] ASSESSMENT: Stable. PLAN: Discharge and follow as an outpatient. Electronically signed by: Stalin Glover 10/10/2014 8:00 AM OFF SAW TENDER METAL * Plan of Care - Grace White RN - 10/10/2014 3:26 AM CUT OFF SAW TENDER METAL Problem: Knowledge Deficit Goal: Patient/family/caregiver demonstrates understanding of disease process, tr eatment plan, medications, and discharge instructions Complete learning assessment and assess knowledge base. Outcome: Progressing Goal: Patient/Family/Caregiver sets realistic goals Outcome: Progressing Problem: Pain Goal: Patients pain/discomfort is manageable Outcome: Progressing Problem: Skin Integrity Goal: Skin integrity is maintained or improved Assess and monitor skin integrity. Identify patients at risk for skin breakdown on admission and per policy. Collaborate with interdisciplinary team and initiat e plans and interventions as needed. Outcome: Progressing Problem: Safety Goal: Patient will be injury free during hospitalization Outcome: Progressing Problem: Risk for Falls Goal: Patient will not fall during their Inpatient stay Outcome: Progressing Problem: Potential for Compromised Skin Integrity Goal: Skin integrity is maintained or improved Assess and monitor skin integrity. Identify patients at risk for skin breakdown on admission and per policy. Collaborate with interdisciplinary team and initiat e plans and interventions as needed. Outcome: Progressing OFF SAW TENDER METAL * Brief Operative Note - Stalin Glover MD - 10/09/2014 4:38 PM CUT OFF SAW TENDER METAL 25 GAUGE VITRECTOMY, MEMBRANE PEEL, EVACUATION OF SUBRETINAL HEMORRHAGE, ENDOLAS ER, AIR - FLUID GAS EXCHANGE SUBTENONS INJECTION Procedure Note John Martínez 10/09/2014 Pre-op Diagnosis: 250.50, 379.23, 362.07 Post-op Diagnosis: Post-Op Diagnosis Codes: * Proliferative diabetic retinopathy, right eye [250.50, 362.02] * Type II or unspecified type diabetes mellitus with ophthalmic manifestation s, not stated as uncontrolled [250.50] * Vitreous hemorrhage of right eye [379.23] * Vitreous membranes and strands of right eye [379.25] * Epiretinal membrane, right eye [362.56] * Traction retinal detachment, right [361.81] * Diabetic macular edema [250.50, 362.07, 362.01] Procedure(s): 25 GAUGE VITRECTOMY, MEMBRANE PEEL, EVACUATION OF SUBRETINAL HEMORRHAGE, ENDOLAS ER, AIR - FLUID GAS EXCHANGE SUBTENONS INJECTION Surgeon(s) and Role: * Stalin Glover MD - Primary Anesthesia Type: General Staff: Staff Reporter: Yee Yeager RN Scrub Person: Elisa Chiang Private Scrub: Melania Castaneda RN Anesthesiologist: Mohamud Ayala MD CELLOPHANE BATH MIXER: Sebastian Mendez RN CELLOPHANE BATH MIXER; Law Bustamante RN CELLOPHANE BATH MIXER Findings: Extensive traction retinal detachment, subretinal hemorrhage, Endolase r # [id number] Complications: None Condition: Good Estimated Blood Loss: Minimal Specimens: Order Name Source Comment Collection Info Order Time CULTURE, MRSA SCREEN Nasal For all total joint procedures 10-14 days prior to procedure 10/09/2014 8:39 AM Drains: None Stalin Glover Date: 10/09/2014 Time: 4:38 PM OFF SAW TENDER METAL documented in this encounter Plan of Treatment Not on filedocumented as of this encounter Procedures Comments Procedure Name Priority Date/Time Associated Diagnosis LAB SUMMARY 10/11/2014 2:36 AM CUT OFF SAW TENDER METAL GLUCOSE POC Routine 10/10/2014 7:34 AM CUT OFF SAW TENDER METAL GLUCOSE POC Routine 10/09/2014 9:37 PM CUT OFF SAW TENDER METAL GLUCOSE POC Routine 10/09/2014 4:45 PM CUT OFF SAW TENDER METAL GLUCOSE POC Routine 10/09/2014 3:57 PM CUT OFF SAW TENDER METAL VITRECTOMY, USING 10/09/2014 Proliferative diabetic 25-GAUGE INSTRUMENTS 3:03 PM CUT OFF SAW TENDER METAL retinopathy, right eye (HCC) Type II or unspecified type diabetes mellitus with ophthalmic manifestations, not stated as uncontrolled (HCC) Vitreous hemorrhage of right eye (HCC) Vitreous membranes and strands of right eye Epiretinal membrane, right eye Traction retinal detachment, right Diabetic macular edema (HCC) GLUCOSE POC Routine 10/09/2014 12:52 PM CUT OFF SAW TENDER METAL GLUCOSE POC Routine 10/09/2014 11:54 AM CUT OFF SAW TENDER METAL GLUCOSE POC Routine 10/09/2014 10:54 AM CUT OFF SAW TENDER METAL GLUCOSE POC Routine 10/09/2014 9:42 AM CUT OFF SAW TENDER METAL GLUCOSE POC Routine 10/09/2014 8:54 AM CUT OFF SAW TENDER METAL HEMOGLOBIN STAT 10/09/2014 8:54 AM CUT OFF SAW TENDER METAL BASIC METABOLIC PANEL STAT 10/09/2014 8:54 AM CUT OFF SAW TENDER METAL ECG Routine 10/09/2014 8:48 AM CUT OFF SAW TENDER METAL documented in this encounter Results * LAB SUMMARY (10/11/2014 2:36 AM CUT OFF SAW TENDER METAL) Narrative Performed At Ordered by an unspecified provider. * GLUCOSE POC (10/10/2014 7:34 AM CUT OFF SAW TENDER METAL) Only the most recent of 9 results within the time period is included. Glucose POC 213 (H) 70 - 100 mg/dL [facility] Specimen Blood Performing Organization Address City/[facility]/Zipcode Phone Number [address] [address] LABORATORIES * Hemoglobin (10/09/2014 8:54 AM CUT OFF SAW TENDER METAL) Pathologist [facility] Hemoglobin 12.0 (L) 13.0 - 17.0 g/dL [facility] Specimen Blood - Blood Performing Organization Address City/[facility] Phone Number [address] [address] LABORATORIES * Basic Metabolic Panel (10/09/2014 8:54 AM CUT OFF SAW TENDER METAL) Pathologist [facility] Sodium 142 133 - 147 MEQ/L [facility] Potassium 4.9 3.5 - 5.3 MEQ/L [facility] Chloride 103 96 - 112 MEQ/L [facility] Carbon Dioxide 27 20 - 32 MEQ/L [facility] Anion Gap 13 5 - 17 [facility] Calcium 9.9 8.4 - 10.5 mg/dL [facility] Glucose 320 (H) 70 - 100 mg/dL [facility] Blood Urea 38 (H) 7 - 26 mg/dL [facility] LABORATORIES Creatinine 1.0 0.6 - 1.3 mg/dL [facility] eGFR Male AA 90 60 - 200 [facility] Comment: REGIONAL Chronic Kidney Disease less LABORATORIES than 60 mL/min/1.73 sq.m Kidney failure less than 15 mL/min/1.73 sq.m eGFR Male 75 60 - 200 [facility] Non-AA Comment: REGIONAL Chronic Kidney Disease less LABORATORIES than 60 mL/min/1.73 sq.m Kidney failure less than 15 mL/min/1.73 sq.m Specimen Blood - Blood Performing Organization Address City/State/Zipcode Phone Number [address] [address] LABORATORIES * Electrocardiogram (ECG) (10/09/2014 8:48 AM CUT OFF SAW TENDER METAL) Specimen Narrative Performed At [facility] Name JOHN MARTÍNEZ Date of Birth1945 SexM [id number] Facility [facility] Service Date 10/09/2014, 08:48:02 67 [phone] 439 13 6 158 44 -6 -5 - ABNORMAL ECG - SINUS RHYTHM normal P axis, V-rate 50-99 RIGHT BUNDLE BRANCH BLOCK QRSd\\T\\gt;120, terminal axis(90,270) FINAL REPORT Performing Organization Address City/State/Zipcode Phone Number JOHNATHAN documented in this encounter Visit Diagnoses Diagnosis Proliferative diabetic retinopathy, right eye (HCC) Type II or unspecified type diabetes mellitus with ophthalmic manifestations, not stated as uncontrolled Type II or unspecified type diabetes mellitus with ophthalmic manifestations, not stated as uncontrolled(250.50) (HCC) Type II or unspecified type diabetes mellitus with ophthalmic manifestations, not stated as uncontrolled Vitreous hemorrhage of right eye (HCC) Vitreous hemorrhage Vitreous membranes and strands of right eye Epiretinal membrane, right eye Macular puckering of retina Traction retinal detachment, right Traction detachment of retina Diabetic macular edema (HCC) documented in this encounter Administered Medications Action Date Dose Rate Site Medication Order MAR Action 10/09/2014 7:10 PM CUT OFF SAW TENDER METAL 2 tablets acetaminophen-codeine (TYLENOL #3) Given 300-30 mg per tablet 1-2 tablet 1-2 tablet, Oral, Every 4 hours PRN, moderate pain (pain score 4-6), Starting e 10/09/14 at 1836, Do not exceed 4 GM/DAY of acetaminophen. If 65 or older do not exceed 3 GM/DAY. If chronic alcoholic do not exceed 2 GM/DAY. , 10/09/2014 11:05 PM CUT OFF SAW TENDER METAL 250 mg acetaZOLAMIDE (DIAMOX) injection 250 mg Given 250 mg, Intravenous, Once, Wed10/09/14 at 2245, For 1 dose, Dilute with 5 mL sterile water for injection, 10/10/2014 8:53 AM CUT OFF SAW TENDER METAL 10 mg amLODIPine (NORVASC) tablet 10 mg Given 10 mg, Oral, Daily, First dose on Wed10/09/14 at 1900 10/10/2014 8:54 AM CUT OFF SAW TENDER METAL 20 mg atorvastatin (LIPITOR) tablet 20 mg Given 20 mg, Oral, Daily, First dose on Wed10/09/14 at 1900 10/09/2014 3:41 PM CUT OFF SAW TENDER METAL 15 mL Operative Site balanced salt irrig (BSS) solution Given As needed, Starting Wed10/09/14 at 1541, Intra-op 10/09/2014 3:42 PM CUT OFF SAW TENDER METAL 500 mL Right Eye BSS PLUS intraocular solution (500 mL) Given w/epinephrine 0.3 mg and dextrose 50% 3 mL Both Eyes, As Needed in OR, per intra op, Starting Wed10/08/14 at 1512, Intra-op 10/10/2014 8:54 AM CUT OFF SAW TENDER METAL 10 mg escitalopram oxalate (LEXAPRO) tablet 10 Given mg 10 mg, Oral, Daily, First dose on Wed10/09/14 at 1900 10/09/2014 9:50 AM CUT OFF SAW TENDER METAL 1 drop flurbiprofen (OCUFEN) 0.03 % ophthalmic Given solution 1 drop 1 drop, Right Eye, Every 5 min, First dose on Wed10/09/14 at 0900, For 3 doses, Pre-op, Start medications in Pre-op Admissions 45 minutes prior to surgery, 1 drop Given 10/09/2014 9:45 AM CUT OFF SAW TENDER METAL 10/09/2014 3:42 PM CUT OFF SAW TENDER METAL 1 Bottle Operative Site gentamicin (GARAMYCIN) 0.3 % ophthalmic Given solution As needed, Starting Wed10/09/14 at 1542, Intra-op 10/09/2014 9:49 AM CUT OFF SAW TENDER METAL 1 drop homatropine (ISOPTO HOMATROPINE) 5 % Given ophthalmic solution 1 drop 1 drop, Both Eyes, Every 5 min, First dose on Wed10/09/14 at 0900, For 3 doses, Pre-op, Start medications in Pre-op Admissions 45 minutes prior to surgery, 1 drop Given 10/09/2014 9:44 AM CUT OFF SAW TENDER METAL 10/10/2014 6:15 AM CUT OFF SAW TENDER METAL 1 drop homatropine (ISOPTO HOMATROPINE) 5 % Given ophthalmic solution 1 drop 1 drop, Right Eye, 2 times daily, First dose on Wed10/10/14 at 0600, Contact lenses should be removed before installation. Do not reinsert contact lenses within 15 minutes of drops., 10/10/2014 6:14 AM CUT OFF SAW TENDER METAL 1 tablet HYDROcodone-acetaminophen (NORCO) 5-325 Given mg per tablet 1 tablet 1 tablet, Oral, Every 6 hours PRN, moderate pain (pain score 4-6), Starting Wed10/09/14 at 2226, Do not exceed 4 GM/DAY of acetaminophen. If 65 or older do not exceed 3 GM/DAY. If chronic alcoholic do not exceed 2 GM/DAY., 1 tablet Given 10/09/2014 11:06 PM CUT OFF SAW TENDER METAL 10/09/2014 3:42 PM CUT OFF SAW TENDER METAL 2 drops Operative Site hydroxypropyl methylcellulose (GONAK) Given 2.5 % ophthalmic solution As needed, Starting Wed10/09/14 at 1542, Intra-op 10/09/2014 3:42 PM CUT OFF SAW TENDER METAL 25 mg Operative Site indocyanine green (IC-GREEN) injection Given As needed, Starting Wed10/09/14 at 1542, Intra-op 10/09/2014 9:35 PM CUT OFF SAW TENDER METAL 30 Units Abdominal Tissue insulin detemir (LEVEMIR) injection 30 Given Units 30 Units, Subcutaneous, Nightly, First dose on Wed10/09/14 at 2100 10/09/2014 12:03 PM CUT OFF SAW TENDER METAL 6 Units Abdominal Tissue insulin regular (HumuLIN R) injection 6 Given Units 6 Units, Subcutaneous, Once, Wed10/09/14 at 1215, For 1 dose, Pre-op 10/09/2014 9:15 AM CUT OFF SAW TENDER METAL 7 Units Abdominal Tissue insulin regular (HumuLIN R) injection 7 Given Units 7 Units, Subcutaneous, Once, Wed10/09/14 at 0930, For 1 dose, Pre-op 10/09/2014 9:57 AM CUT OFF SAW TENDER METAL 7 Units Abdominal Tissue insulin regular (HumuLIN R) injection 7 Given Units 7 Units, Subcutaneous, Once, Wed10/09/14 at 1015, For 1 dose, Pre-op 10/09/2014 4:40 PM CUT OFF SAW TENDER METAL lactated ringers infusion New Bag 50 mL/hr, Intravenous, Continuous, Starting Wed10/09/14 at 0900 50 mL/hr 50 mL/hr New Bag 10/09/2014 9:15 AM CUT OFF SAW TENDER METAL 10/10/2014 8:53 AM CUT OFF SAW TENDER METAL 1,000 mg metFORMIN (GLUCOPHAGE) tablet 1,000 mg Given 1,000 mg, Oral, 2 times daily with meals, First dose on Wed10/09/14 at 1900 10/09/2014 3:42 PM CUT OFF SAW TENDER METAL 40 mg Right Eye methylPREDNISolone acetate (DEPO-MEDROL) Given 40 mg/mL injection As needed, Starting Wed10/09/14 at 1542, Intra-op 10/10/2014 8:53 AM CUT OFF SAW TENDER METAL 200 mg metoprolol succinate (TOPROL-XL) 24 hr Given tablet 200 mg 200 mg, Oral, Daily, First dose on Wed10/09/14 at 1900, DO NOT CRUSH OR CHEW., 10/09/2014 3:43 PM CUT OFF SAW TENDER METAL 1,000 mL Operative Site multiple electrolyte (pH 7.4) (NORMOSOL) Given solution As needed, Starting Wed10/09/14 at 1543, Intra-op 10/09/2014 9:50 AM CUT OFF SAW TENDER METAL 1 drop ofloxacin (OCUFLOX) 0.3 % ophthalmic Given solution 1 drop 1 drop, Right Eye, Every 5 min, First dose on Wed10/09/14 at 0900, For 3 doses, Pre-op, Number of drops 3 spaced 5 minutes apart., 1 drop Given 10/09/2014 9:45 AM CUT OFF SAW TENDER METAL 10/10/2014 9:00 AM CUT OFF SAW TENDER METAL 1 drop ofloxacin (OCUFLOX) 0.3 % ophthalmic Given solution 1 drop 1 drop, Right Eye, 4 times daily, First dose on Wed10/10/14 at 0600 1 drop Given 10/10/2014 6:17 AM CUT OFF SAW TENDER METAL 10/10/2014 6:14 AM CUT OFF SAW TENDER METAL 40 mg pantoprazole (PROTONIX) EC tablet 40 mg Given 40 mg, Oral, Daily, First dose on Wed10/09/14 at 1845, DO NOT CRUSH OR CHEW., 10/09/2014 9:49 AM CUT OFF SAW TENDER METAL 1 drop phenylephrine (MYDFRIN) 2.5 % ophthalmic Given solution 1 drop 1 drop, Both Eyes, Every 5 min, First dose on Wed10/09/14 at 0900, For 3 doses, Pre-op, Start medications in Pre-op Admissions 45 minutes prior to surgery, 1 drop Given 10/09/2014 9:45 AM CUT OFF SAW TENDER METAL 10/10/2014 9:00 AM CUT OFF SAW TENDER METAL 1 drop prednisoLONE acetate (PRED FORTE) 1 % Given ophthalmic suspension 1 drop 1 drop, Right Eye, 4 times daily, First dose on Wed10/10/14 at 0600, SHAKE WELL BEFORE USING, 1 drop Given 10/10/2014 6:18 AM CUT OFF SAW TENDER METAL 10/10/2014 8:53 AM CUT OFF SAW TENDER METAL 50 mg pregabalin (LYRICA) capsule 50 mg Given 50 mg, Oral, 2 times daily, First dose on Wed10/09/14 at 2100 50 mg Given 10/09/2014 9:34 PM CUT OFF SAW TENDER METAL 10/09/2014 3:43 PM CUT OFF SAW TENDER METAL 1,000 mL Operative Site sterile water irrigation irrigation Given solution As needed, Starting Wed10/09/14 at 1543, Intra-op 10/09/2014 3:43 PM CUT OFF SAW TENDER METAL 1 application tobramycin-dexamethasone (TOBRADEX) Given ophthalmic ointment As needed, Starting Wed10/09/14 at 1543, Intra-op 10/09/2014 9:50 AM CUT OFF SAW TENDER METAL 1 drop tropicamide (MYDRIACYL) 1 % ophthalmic Given solution 1 drop 1 drop, Both Eyes, Every 5 min, First dose on Wed10/09/14 at 0900, For 3 doses, Pre-op, Start medications in Pre-op Admissions 45 minutes prior to surgery, 1 drop Given 10/09/2014 9:45 AM CUT OFF SAW TENDER METAL documented in this encounter
--- OUTSIDE RECORDS SUMMARY | 2019-04-03 06:21 | XMS REPORT | Encounter Summary ---
Author Author [facility] Organization [facility] Address Unknown Phone Unavailable Care Team Providers Care Senior Sales Representative Name Role Phone PCP Unavailable Encounter Details Care Team Description Date Type Department Stalin Glover MD [address] [place] [address] [phone] 10/09/2014 Hospital [facility] - Encounter [address] 10/10/2014 [place] [address] Social History Date Tobacco Use Types Packs/Day [...] Comments Vital Sign 120/62 10/10/2014 7:12 AM PAPER BOX MAKER Blood Pressure 68 10/10/2014 8:32 AM PAPER BOX MAKER Pulse 36.4 C (97.5 F) 10/10/2014 7:12 AM PAPER BOX MAKER Temperature 18 10/10/2014 7:12 AM PAPER BOX MAKER Respiratory Rate 92% 10/10/2014 8:32 AM PAPER BOX MAKER Oxygen Saturation - - Inhaled Oxygen Concentration 109.8 kg (242 lb) 10/10/2014 7:12 AM PAPER BOX MAKER Weight 175.3 cm (5' 9.02") 10/10/2014 7:12 AM PAPER BOX MAKER Height 35.72 10/10/2014 7:12 AM PAPER BOX MAKER Body Mass Index documented in this encounter [...] Stalin Glover MD - 10/08/2014 2:50 PM PAPER BOX MAKER H&P was reviewed, the patient was examined, no change has occurred in the patient's condition since H&P completed. 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 Past Medical History: Past Medical History Diagnosis Date Sam's palsy VERY LITTLE RESIDUAL/LEFT EYE LOWER THAN RIGHT Retinal disorder Cataract 2014 Visual impairment WEARS GLASSES Exercise tolerance finding [...] SUNTENONS INJECTION; Surgeon: Stalin Glover MD; Location: [facility]; Service: Ophthalmology; Laterality: Left; Social History: History [...] signed by Stalin Glover 10/05/2014 10:54 AM R BOX MAKER documented in this encounter Miscellaneous Notes * Operative Note - Stalin Glover MD - 09/02/2015 6:52 AM PAPER BOX MAKER Name: JOHN MARTÍNEZ _[id number] Date of : [...] was delivered to the posterior segment surrounding tank farm operator ior retinal breaks and to the peripheral [...] room in good condition. Stalin Glover MD [id number] CC: R BOX MAKER * Multidisciplinary Discharge Rounds Note - Stalin Glover MD - 10/10/2014 8:00 AM PAPER BOX MAKER [facility] DISCHARGE NOTE Patient: John Martínez : 1945 [...] signed by: Stalin Glover 10/10/2014 8:00 AM R BOX MAKER * Plan of Care - Grace White RN - 10/10/2014 3:26 AM PAPER BOX MAKER Problem: Knowledge Deficit Goal: Patient/family/caregiver demonstrates understanding [...] plans and interventions as needed. Outcome: Progressing R BOX MAKER * Brief Operative Note - Stalin Glover MD - 10/09/2014 4:38 PM PAPER BOX MAKER 25 GAUGE VITRECTOMY, MEMBRANE PEEL, EVACUATION OF [...] MD - Primary Anesthesia Type: General Staff: Commercial [employer] Professional: Yee Yeager RN Scrub Person: Elisa Chiang Private Scrub: Melania Castaneda RN Anesthesiologist: Mohamud Ayala MD UNIVERSITY EXTENSION SPECIALIST: Sebastian Mendez RN UNIVERSITY EXTENSION SPECIALIST; Law Bustamante RN UNIVERSITY EXTENSION SPECIALIST Findings: Extensive traction retinal detachment, subretinal hemorrhage, Endolase r # [id number] Complications: None Condition: Good Estimated Blood Loss: Minimal Specimens: Order Name Source Comment Collection Info Order Time CULTURE, MRSA SCREEN Nasal For all total joint procedures 10-14 days prior to procedure 10/09/2014 8:39 AM Drains: None Stalin Glover Date: 10/09/2014 Time: 4:38 PM R BOX MAKER documented in this encounter Plan of Treatment Not on filedocumented as of this encounter Procedures Comments Procedure Name Priority Date/Time Associated Diagnosis LAB SUMMARY 10/11/2014 2:36 AM PAPER BOX MAKER GLUCOSE POC Routine 10/10/2014 7:34 AM PAPER BOX MAKER GLUCOSE POC Routine 10/09/2014 9:37 PM PAPER BOX MAKER GLUCOSE POC Routine 10/09/2014 4:45 PM PAPER BOX MAKER GLUCOSE POC Routine 10/09/2014 3:57 PM PAPER BOX MAKER VITRECTOMY, USING 10/09/2014 Proliferative diabetic 25-GAUGE INSTRUMENTS 3:03 PM PAPER BOX MAKER retinopathy, right eye (HCC) Type II or unspecified type diabetes mellitus with ophthalmic manifestations, not stated as uncontrolled (HCC) Vitreous hemorrhage of right eye (HCC) Vitreous membranes and strands of right eye Epiretinal membrane, right eye Traction retinal detachment, right Diabetic macular edema (HCC) GLUCOSE POC Routine 10/09/2014 12:52 PM PAPER BOX MAKER GLUCOSE POC Routine 10/09/2014 11:54 AM PAPER BOX MAKER GLUCOSE POC Routine 10/09/2014 10:54 AM PAPER BOX MAKER GLUCOSE POC Routine 10/09/2014 9:42 AM PAPER BOX MAKER GLUCOSE POC Routine 10/09/2014 8:54 AM PAPER BOX MAKER HEMOGLOBIN STAT 10/09/2014 8:54 AM PAPER BOX MAKER BASIC METABOLIC PANEL STAT 10/09/2014 8:54 AM PAPER BOX MAKER ECG Routine 10/09/2014 8:48 AM PAPER BOX MAKER documented in this encounter Results * LAB SUMMARY (10/11/2014 2:36 AM PAPER BOX MAKER) Narrative Performed At Ordered by an unspecified provider. * GLUCOSE POC (10/10/2014 7:34 AM PAPER BOX MAKER) Only the most recent of 9 results within the time period is included. Glucose POC 213 (H) 70 - 100 mg/dL [facility] Specimen Blood Performing Organization Address City/[facility] Phone Number [address] [address] LABORATORIES * Hemoglobin (10/09/2014 8:54 AM PAPER BOX MAKER) Pathologist [facility] Hemoglobin 12.0 (L) 13.0 - 17.0 g/dL [facility] Specimen Blood - Blood Performing Organization Address [facility] Phone Number [address] [address] LABORATORIES * Basic Metabolic Panel (10/09/2014 8:54 AM PAPER BOX MAKER) Pathologist [facility] Sodium 142 133 - 147 MEQ/L [facility] Potassium 4.9 3.5 - 5.3 MEQ/L [facility] Chloride 103 96 - 112 MEQ/L [facility] Carbon Dioxide 27 20 - 32 MEQ/L [facility] Anion Gap 13 5 - 17 [facility] Calcium 9.9 8.4 - 10.5 mg/dL [facility] Glucose 320 (H) 70 - 100 mg/dL [facility] LABORATORIES Blood Urea 38 (H) 7 - 26 mg/dL [facility] Creatinine 1.0 0.6 - 1.3 mg/dL [facility] eGFR Male AA 90 60 - 200 [facility] Comment: REGIONAL Chronic Kidney Disease less LABORATORIES than 60 mL/min/1.73 sq.m Kidney failure less than 15 mL/min/1.73 sq.m eGFR Male 75 60 - [address] [facility] Non-AA Comment: REGIONAL Chronic Kidney Disease less LABORATORIES than 60 mL/min/1.73 sq.m Kidney failure less than 15 mL/min/1.73 sq.m Specimen Blood - Blood Performing Organization Address City/[facility] Phone Number [facility] [address] LABORATORIES * Electrocardiogram (ECG) (10/09/2014 8:48 AM PAPER BOX MAKER) Specimen Narrative Performed At [facility] Name JOHN MARTÍNEZ Date of Birth1945 SexM [id number] Facility [facility] Service Date 10/09/2014, 08:48:02 67 [phone] 439 13 6 158 44 -6 -5 - ABNORMAL ECG - SINUS RHYTHM normal P axis, V-rate 50-99 RIGHT BUNDLE BRANCH BLOCK QRSd\\T\\gt;120, terminal axis(90,270) FINAL REPORT Performing Organization Address City/State/Zipcode Phone Number [facility] documented in this encounter Visit Diagnoses Not on filedocumented in this encounter Administered Medications Action Date Dose Rate Site Medication Order MAR Action 10/09/2014 7:10 PM PAPER BOX MAKER 2 tablets acetaminophen-codeine (TYLENOL #3) Given 300-30 mg per tablet 1-2 tablet 1-2 tablet, Oral, Every 4 hours PRN, moderate pain (pain score 4-6), Starting Wed10/09/14 at 1836, Do not exceed 4 GM/DAY of acetaminophen. If 65 or older do not exceed 3 GM/DAY. If chronic alcoholic do not exceed 2 GM/DAY. , 10/09/2014 11:05 PM PAPER BOX MAKER 250 mg acetaZOLAMIDE (DIAMOX) injection 250 mg Given 250 mg, Intravenous, Once, Wed10/09/14 at 2245, For 1 dose, Dilute with 5 mL sterile water for injection, 10/10/2014 8:53 AM PAPER BOX MAKER 10 mg amLODIPine (NORVASC) tablet 10 mg Given 10 mg, Oral, Daily, First dose on Wed10/09/14 at 19010/10/2014 8:54 AM PAPER BOX MAKER 20 mg atorvastatin (LIPITOR) tablet 20 mg Given 20 mg, Oral, Daily, First dose on Wed10/09/14 at 19010/10/2014 8:54 AM PAPER BOX MAKER 10 mg escitalopram oxalate (LEXAPRO) tablet 10 Given mg 10 mg, Oral, Daily, First dose on Wed10/09/14 at 189910/09/2014 9:50 AM PAPER BOX MAKER 1 drop flurbiprofen (OCUFEN) 0.03 % ophthalmic Given solution 1 drop 1 drop, Right Eye, Every 5 min, First dose on Wed10/09/14 at 0900, For 3 doses, Pre-op, Start medications in Pre-op Admissions 45 minutes prior to surgery, 1 drop Given 10/09/2014 9:45 AM PAPER BOX MAKER 10/09/2014 9:49 AM PAPER BOX MAKER 1 drop homatropine (ISOPTO HOMATROPINE) 5 % Given ophthalmic solution 1 drop 1 drop, Both Eyes, Every 5 min, First dose on Wed10/09/14 at 0900, For 3 doses, Pre-op, Start medications in Pre-op Admissions 45 minutes prior to surgery, 1 drop Given 10/09/2014 9:44 AM PAPER BOX MAKER 10/10/2014 6:15 AM PAPER BOX MAKER 1 drop homatropine (ISOPTO HOMATROPINE) 5 % Given ophthalmic solution 1 drop 1 drop, Right Eye, 2 times daily, First dose on Wed10/10/14 at 0600, Contact lenses should be removed before installation. Do not reinsert contact lenses within 15 minutes of drops., 10/10/2014 6:14 AM PAPER BOX MAKER 1 tablet HYDROcodone-acetaminophen (NORCO) 5-325 Given mg per tablet 1 tablet 1 tablet, Oral, Every 6 hours PRN, moderate pain (pain score 4-6), Starting Wed10/09/14 at 2226, Do not exceed 4 GM/DAY of acetaminophen. If 65 or older do not exceed 3 GM/DAY. If chronic alcoholic do not exceed 2 GM/DAY., 1 tablet Given 10/09/2014 11:06 PM PAPER BOX MAKER 10/09/2014 9:35 PM PAPER BOX MAKER 30 Units Abdominal Tissue insulin detemir (LEVEMIR) injection 30 Given Units 30 Units, Subcutaneous, Nightly, First dose on Wed10/09/14 at 2100 10/09/2014 12:03 PM PAPER BOX MAKER 6 Units Abdominal Tissue insulin regular (HumuLIN R) injection 6 Given Units 6 Units, Subcutaneous, Once, Wed10/09/14 at 1215, For 1 dose, Pre-op 10/09/2014 9:15 AM PAPER BOX MAKER 7 Units Abdominal Tissue insulin regular (HumuLIN R) injection 7 Given Units 7 Units, Subcutaneous, Once, Wed10/09/14 at 0930, For 1 dose, Pre-op 10/09/2014 9:57 AM PAPER BOX MAKER 7 Units Abdominal Tissue insulin regular (HumuLIN R) injection 7 Given Units 7 Units, Subcutaneous, Once, Wed10/09/14 at 1015, For 1 dose, Pre-op 10/09/2014 4:40 PM PAPER BOX MAKER lactated ringers infusion New Bag 50 mL/hr, Intravenous, Continuous, Starting Wed10/09/14 at 0900 50 mL/hr 50 mL/hr New Bag 10/09/2014 9:15 AM PAPER BOX MAKER 10/10/2014 8:53 AM PAPER BOX MAKER 1,000 mg metFORMIN (GLUCOPHAGE) tablet 1,000 mg Given 1,000 mg, Oral, 2 times daily with meals, First dose on Wed10/09/14 at 1900 10/10/2014 8:53 AM PAPER BOX MAKER 200 mg metoprolol succinate (TOPROL-XL) 24 hr Given tablet 200 mg 200 mg, Oral, Daily, First dose on Wed10/09/14 at 1900, DO NOT CRUSH OR CHEW., 10/09/2014 9:50 AM PAPER BOX MAKER 1 drop ofloxacin (OCUFLOX) 0.3 % ophthalmic Given solution 1 drop 1 drop, Right Eye, Every 5 min, First dose on Wed10/09/14 at 0900, For 3 doses, Pre-op, Number of drops 3 spaced 5 minutes apart., 1 drop Given 10/09/2014 9:45 AM PAPER BOX MAKER 10/10/2014 9:00 AM PAPER BOX MAKER 1 drop ofloxacin (OCUFLOX) 0.3 % ophthalmic Given solution 1 drop 1 drop, Right Eye, 4 times daily, First dose on Wed10/10/14 at 0600 1 drop Given 10/10/2014 6:17 AM PAPER BOX MAKER 10/10/2014 6:14 AM PAPER BOX MAKER 40 mg pantoprazole (PROTONIX) EC tablet 40 mg Given 40 mg, Oral, Daily, First dose on Wed10/09/14 at 1845, DO NOT CRUSH OR CHEW., 10/09/2014 9:49 AM PAPER BOX MAKER 1 drop phenylephrine (MYDFRIN) 2.5 % ophthalmic Given solution 1 drop 1 drop, Both Eyes, Every 5 min, First dose on Wed10/09/14 at 0900, For 3 doses, Pre-op, Start medications in Pre-op Admissions 45 minutes prior to surgery, 1 drop Given 10/09/2014 9:45 AM PAPER BOX MAKER 10/10/2014 9:00 AM PAPER BOX MAKER 1 drop prednisoLONE acetate (PRED FORTE) 1 % Given ophthalmic suspension 1 drop 1 drop, Right Eye, 4 times daily, First dose on Wed10/10/14 at 0600, SHAKE WELL BEFORE USING, 1 drop Given 10/10/2014 6:18 AM PAPER BOX MAKER 10/10/2014 8:53 AM PAPER BOX MAKER 50 mg pregabalin (LYRICA) capsule 50 mg Given 50 mg, Oral, 2 times daily, First dose on Wed10/09/14 at 2100 50 mg Given 10/09/2014 9:34 PM PAPER BOX MAKER 10/09/2014 9:50 AM PAPER BOX MAKER 1 drop tropicamide (MYDRIACYL) 1 % ophthalmic Given solution 1 drop 1 drop, Both Eyes, Every 5 min, First dose on Wed10/09/14 at 0900, For 3 doses, Pre-op, Start medications in Pre-op Admissions 45 minutes prior to surgery, 1 drop Given 10/09/2014 9:45 AM PAPER BOX MAKER documented in this encounter
--- OUTSIDE RECORDS SUMMARY | 2019-04-03 06:21 | XMS REPORT | Encounter Summary ---
Author Author [facility] Organization [facility] Address Unknown Phone Unavailable Care Team Providers Care Candy Depositing Machine Operator Name Role Phone PCP Unavailable Encounter Details Care Team Description Date Type Department Rachel Babin MD [address] [place], [place] [phone] Corrina Devries MD [address] [place], [place] [phone] 01/07/2015 Anesthesia [facility] Event [address] [place], [place] [id number] Anesthesia Record Responsible Anesthesiologist Anesthesia Start Time Anesthesia Stop Time Procedure Name Rachel Baibn MD 01/07/15 0752 01/07/15 0948 25 GAUGE EYE VITRECTOMY, MEMBRANE PEEL, ENDOLASER, , DELAMINATION OF INTERNAL LIMITING MEMBRANE, AIR-FLUID GAS EXCHANGE, SUBTENON'S INJECTION (Right Eye) Date Time Event Comment 658 AN Equip Check 2014 706 Anesthesia Initial Contact 0719 Anesthesia Initial Contact 0722 0752 In room 0752 An Start 0752 An Start Data 0752 Quick Note Late start due to surgeon late arrival 0753 Pt eval immediately prior to anesthesia 0753 Preoxygenated Prior to Induction 0755 Anesthesiologis t Present 0756 An Induction 0759 An Intubation 0804 Anesthesia Ready 0807 PreOp Abx complete 0815 Time out complete 0823 Procedure start - Primary Case 0833 Quick Note SVTD=298up/dL 0845 Anesthesiologis t Present 0931 Procedure stop - Primary case 0934 Spontaneous respirations 0936 Anesthesiologis t Present 0942 Adequate Tidal Volume 0942 FiO2 to 100% Prior to Suctioning 0942 Suction 0942 An Extubation 0943 Oxygen per nasal cannula 0943 an stop data 0943 Transported with O2 0943 Out of Room 0948 Handoff I completed my SBAR handoff to the receiving nurse in the PACU. 0948 An Stop Meds Name Total midazolam 1mg/mL 2 mg fentaNYL (SUBLIMAZE) injection 50 mcg/mL 100 mcg lidocaine 2% (PF) 40 mg propofol 10mg/mL 150 mg rocuronium 10mg/mL 50 mg ondansetron 2mg/mL 4 mg ephedrine 10mg/mL 20 mg neostigmine 0.5mg/mL 4 mg glycopyrrolate 0.2mg/mL 0.6 mg ceFAZolin (ANCEF) injection 1 g 2 g lactated ringers infusion 1,000 mL * Name O2 N2O Air EtSEVO EtISO EtN2O * No blood administrations on file. Removal Type Details Placement Peripheral Date: 07/23/14; Time: 0650; Size 07/23/14 0650 by IV (gauge): 20 G; Orientation: Left; Patty Amaro RN Location: Hand; Site Prep: Chlorhexidine; Local Anesthetic: Intradermal; Insertion Attempts: 1; Inserted By: Adan Montes RN 03/19/19 0836 by User Epicbatch (Retired 07/23/14; 0858; Eye; Right; 03/19/19 07/23/14 0858 by Nelsy Freire 09/21/18; (This LDA has been removed & completed AUDIE Johnson search via automated utility); 0836 (This LDA "wound" if has been removed & completed via placing automated utility) new) Wound - Incision Assessment 03/19/19 0836 by User Epicbatch (Retired 07/23/14; 0858; Face; no incision; 07/23/14 0858 by Nelsy Freire 09/21/18; 03/19/19 (This LDA has been removed & AUDIE Johnson search completed via automated utility); 0836 "wound" if (This LDA has been removed & completed placing via automated utility) new) Wound - Incision Assessment 03/19/19 0836 by User Epicbatch (Retired 10/09/14; 1544; Eye; Right; TOBRADEX 10/09/14 1544 by Yee 09/21/18; OINTMENT; 07/21/19 (This LDA has been L Radha, RN search removed & completed via automated "wound" if utility); 0836 (This LDA has been placing removed & completed via automated new) utility) Wound - Incision Assessment 01/07/15 111 by Beverly Jones RN Peripheral Date: 01/07/15; Time: 0650; Size 01/07/15 0650 by Keila Aranda IV (gauge): 20 G; Orientation: Left; AUDIE Montes Location: Hand; Local Anesthetic: Intradermal; Insertion Attempts: 1; Inserted By: Jr BRONSON; Removal Date: 01/07/15; Removal Time: 11101/07/15 0942 by JOSE A Garcia Non-Surgic Date: 01/07/15; Time: 758; Placed By: 01/07/15 075 by Law zaidi Airway Director Of Corporate Sales; Site: Oral; Device: ETT - JOSE A Simons Cuffed; Size: 7.5; Units: Millimeters; Method: Laryngoscope; Blade Type: MAC; Blade Size: 4; Attempts: 1; Grade View: I; Airway Observations: oropharynx clear, cords visualized, arytenoids visualized; Cuff Volume: 8; Placement Verified By: Ausculation, Capnometry; Secured At (cm): 23; Measured From: Lips; Removal Date: 01/07/15; Removal Time: 941 documented in this encounter Social History Date Tobacco Use Types Packs/Day [...] history available. documented as of this encounter Miscellaneous Notes * Anesthesia Postprocedure Evaluation - Rachel Babin MD - 01/08/2015 12:21 PM CDT Patient: John Martínez Procedure(s): 25 GAUGE EYE VITRECTOMY, MEMBRANE PEEL, ENDOLASER, , DELAMINATION OF INTERNAL LI MITING MEMBRANE, AIR-FLUID GAS EXCHANGE, SUBTENON'S INJECTION VITRECTOMY ENDOLASER MEMBRANE PEEL EYE Final Anesthesia Type Performed: general Patient location: home (patient was discharged home prior to this note being deandre flowers. I was not in hospital when patient was discharged. This note is generated from the nursing records) Last Vitals Filed Vitals: 01/07/15 1038 01/07/15 1045 BP: 153/66 Pulse: 71 68 Temp: 36.3 C (97.3 F) Resp: 11 9 SpO2: 95% 97% Level of consciousness: awake, alert and oriented Post-anesthesia pain: adequate analgesia Airway patency: patent Respiratory: unassisted, spontaneous ventilation, room air Cardiovascular: stable and blood pressure at baseline Hydration: adequate PostOp Nausea/Vomiting: controlled Difficult Airway: no Anesthetic complications: no Discharge from anesthesia care: Appropriate for discharge from anesthesia care, no apparent anesthesia related complications * Anesthesia Preprocedure Evaluation - Rosas Ceja MD - 01/07/2015 7:19 AM CDT Anesthesia Evaluation Patient summary reviewed No history of anesthetic complications History of tobacco (45 pack year history. quit 2010) use. NO history of alcohol and drug use. Airway Mallampati: II Dental (+) upper dentures and lower dentures Pulmonary breath sounds clear to auscultation (-) COPD, asthma Cardiovascular Exercise tolerance: poor (+) hypertension well controlled, Dyslipidemia, Peripheral Vascular Disease, (-) past [place] Rhythm: regular Rate: normal ROS comment: RBBB on EKG. Neuro/Psych (-) TIA, CVA Comments: H/o Sam's palsy GI/Hepatic/Renal (+) GERD well controlled, (-) liver disease Comments: BPH Prostate Ca Endo/Other (+) diabetes mellitus type 2 poorly controlled using insulin, Comments: Obesity Abdominal (+) obese, Obstetrics HEENT Musculoskeletal Anesthesia Plan ASA 3 Type: general () Plan to include: ETT and IV induction Patient was taking beta blockers as a home medication. Beta sourav will be mariola ntained perioperatively. Anesthetic plan and risks discussed with patient. Plan discussed with TICKET COLLECTOR and attending. Post-operative analgesia: routine analgesia and antiemetics Recovery plan: PACU Risk factors for PONV: non smoker PONV risk level: low Notes BG 263, ordered 6 units IV. documented in this encounter Plan of Treatment Not on filedocumented as of this encounter Visit Diagnoses Not on filedocumented in this encounter Administered Medications Action Date Dose Rate Site Medication Order MAR Action 01/07/2015 8:07 AM CDT 2 g ceFAZolin (ANCEF) injection Given As needed, Starting Wed01/07/15 at 0807, Anesthesia Intra-op 01/07/2015 8:44 AM CDT 10 mg EPHEDrine 10 mg/mL syringe Given As needed, Starting Wed01/07/15 at 0805, Anesthesia Intra-op 10 mg Given 01/07/2015 8:05 AM CDT 01/07/2015 7:56 AM CDT 100 mcg fentaNYL (SUBLIMAZE) injection Given As needed, Starting Wed01/07/15 at 0756, Anesthesia Intra-op 01/07/2015 9:31 AM CDT 0.6 mg glycopyrrolate (ROBINUL) injection Given As needed, secretions, Starting Wed01/07/15 at 0931, Anesthesia Intra-op 01/07/2015 10:03 AM CDT 50 mL/hr 50 mL/hr lactated ringers infusion New Bag 50 mL/hr, Intravenous, Continuous, Starting Wed01/07/15 at 0715, Pre-op New Bag 01/07/2015 9:42 AM CDT 50 mL/hr 50 mL/hr New Bag 01/07/2015 7:37 AM CDT 01/07/2015 7:56 AM CDT 40 mg lidocaine (pf) (XYLOCAINE-MPF) 20 mg/mL Given (2 %) injection As needed, Starting Wed01/07/15 at 0756, Anesthesia Intra-op 01/07/2015 7:50 AM CDT 2 mg midazolam (VERSED) injection Given As needed, Starting Wed01/07/15 at 0750, Anesthesia Intra-op 01/07/2015 9:31 AM CDT 4 mg neostigmine (PROSTIGMIN) injection Given As needed, Starting Wed01/07/15 at 0931, Anesthesia Intra-op 01/07/2015 9:22 AM CDT 4 mg ondansetron (ZOFRAN) 4 mg/2 mL injection Given As needed, nausea, vomiting, Starting Wed01/07/15 at 0922, Anesthesia Intra-op 01/07/2015 7:56 AM CDT 150 mg propofol (DIPRIVAN) injection Given As needed, Starting Wed01/07/15 at 0756, Anesthesia Intra-op 01/07/2015 7:56 AM CDT 50 mg rocuronium (ZEMURON) injection Given As needed, Starting Wed01/07/15 at 0756, Anesthesia Intra-op documented in this encounter
--- OUTSIDE RECORDS SUMMARY | 2019-04-03 06:22 | XMS REPORT | Encounter Summary ---
Author Author [facility] Organization [facility] Address Unknown Phone Unavailable Care Team Providers Care Clothing Busheler Name Role Phone PCP Unavailable Encounter Details Care Team Description Date Type Department Mohamud Ayala MD [address] [place] [id number] Stephanie Orosco MD no forwarding address 10/09/2014 Anesthesia [facility] Event [address] [place] [address] Anesthesia Record Responsible Anesthesiologist Anesthesia Start Time Anesthesia Stop Time Procedure Name Mohamud Ayala MD 10/09/14 1503 10/09/14 1645 25 GAUGE VITRECTOMY, MEMBRANE PEEL, EVACUATION OF SUBRETINAL HEMORRHAGE, ENDOLASER, AIR - FLUID GAS EXCHANGE SUBTENONS INJECTION (Right Eye) Date Time Event Comment 903 Anesthesia 2015 Initial Contact 1500 AN Equip Check 1503 In room 1503 An Start 1503 An Start Data 1503 Pt eval immediately prior to anesthesia 1503 Preoxygenated Prior to Induction 1507 An Data Art 1511 An Induction 1512 RSI/Cricoid 1512 An Intubation 1512 Atraumatic intubation/LMA 1512 ETCO2 wavefrom present 1512 Bilat/=breath sounds 1513 Anesthesiologis t Present 1522 Anesthesia Ready 1524 PreOp Abx complete 1527 Time out complete 1535 Procedure start - Primary Case 1553 Quick Note esphageal temp probe not reading appropriately 1611 Anesthesiologis t Present 1632 Procedure stop - Primary case 1635 Spontaneous respirations 1637 Adequate Tidal Volume 1637 FiO2 to 100% Prior to Suctioning 1637 Suction 1637 An Extubation 1638 Anesthesiologis t Present 1639 Oxygen per nasal cannula 1640 an stop data 1640 Transported with O2 1640 Out of Room 1644 1645 Handoff I completed my SBAR handoff to the receiving nurse in the PACU., Good 02/C02 exchange with oral airway, Vital Signs Stable 1645 An Stop Meds Name Total midazolam 1mg/mL 2 mg fentaNYL (SUBLIMAZE) injection 50 mcg/mL 50 mcg lidocaine 2% (PF) 80 mg propofol 10mg/mL 160 mg succinylcholine 20 mg/mL 160 mg rocuronium 10mg/mL 40 mg ondansetron 2mg/mL 4 mg ephedrine 10mg/mL 50 mg neostigmine 0.5mg/mL 4 mg glycopyrrolate 0.2mg/mL 0.6 mg ceFAZolin (ANCEF) injection 1 g 2 g lactated ringers infusion 1,000 mL * Name O2 N2O Air EtSEVO EtN2O * No blood administrations on file. [...] automated utility) new) Wound - Incision Assessment 10/10/14 0954 by Stevie Perez RN Peripheral Date: 10/09/14; Size (gauge): 20 G; 10/09/14 0000 by Nicole Tran IV Orientation: Left; Location: Arm; AUDIE Cowan Removal Date: 10/10/14; Removal Time: 0954 10/09/14 163 by Cam Mendez CRNA Non-Surgic Date: 10/09/14; Time: 1511; Placed By: 10/09/14 151 by Cam zaidi Airway International Account Representative; Site: Oral; Device: ETT - ORI Mendez Cuffed; Size: 7.5; Units: Millimeters; Method: Laryngoscope; Blade Type: Yin; Blade Size: 2; Attempts: 1; Grade View: I; Misc: Cricoid Pressure; Airway Observations: oropharynx clear, cords visualized; Cuff Volume: 7; Placement Verified By: Ausculation, Capnometry; Secured At (cm): 23; Measured From: Teeth; Removal Date: 10/09/14; Removal Time: 16303/19/19 0836 by User Epicbatch (Retired 10/09/14; 1544; Eye; Right; TOBRADEX 10/09/14 1544 by Yee 09/21/18; OINTMENT; 03/19/19 (This LDA has been Marc Garcia RN search removed & completed via automated "wound" if utility); 0836 (This LDA has been placing removed & completed via automated new) utility) Wound - Incision Assessment 10/09/141651 by Nicole Cowan RN Non-Surgic Date: 10/09/14; Time: 1629; Placed By: 10/09/14 163 by Nicole zaidi [employer]way [employer] Account Representative; Site: Oral; Device: Oral AUDIE Cowan Pharyngeal Airway; Size: 90; Units: Millimeters; Removal Date: 10/09/14; Removal Time: 1651 documented in this encounter Social History Date [...] Miscellaneous Notes * Anesthesia Postprocedure Evaluation - Rosas Ceja MD - 10/09/2014 5:52 PM ELECTRICAL EQUIPMENT TECHNICIAN Patient: John Martínez Procedure(s): 25 GAUGE VITRECTOMY, MEMBRANE PEEL, EVACUATION OF SUBRETINAL HEMORRHAGE, ENDOLAS ER, AIR - FLUID GAS EXCHANGE SUBTENONS INJECTION Final Anesthesia Type Performed: general *Block Type (if peripheral regional or epidural used): No value filed. Patient location: PACU Last Vitals Filed Vitals: 10/09/14 1730 10/09/14 1744 BP: 164/81 162/80 Pulse: 79 82 Temp: Resp: 21 21 SpO2: 98% 97% Level of consciousness: awake, alert and oriented Post-anesthesia pain: adequate analgesia Airway patency: patent Respiratory: unassisted Cardiovascular: stable and blood pressure at baseline Hydration: adequate PostOp Nausea/Vomiting: controlled Difficult Airway: no Anesthetic complications: no Discharge from anesthesia care: Appropriate for discharge from anesthesia care, no apparent anesthesia related complications TRICAL EQUIPMENT TECHNICIAN * Anesthesia Preprocedure Evaluation - Mohamud Ayala MD - 10/09/2014 9:53 AM ELECTRICAL EQUIPMENT TECHNICIAN Anesthesia Evaluation Patient summary reviewed No history of anesthetic complications History of tobacco (45 pack year history. quit 2010) use. NO history of alcohol and drug use. Airway Mallampati: II Dental (+) upper dentures and lower dentures Pulmonary breath sounds clear to auscultation (-) COPD, asthma Cardiovascular Exercise tolerance: poor (+) hypertension well controlled, Dyslipidemia, Peripheral Vascular Disease, (-) past [place] Rhythm: regular Rate: normal Neuro/Psych (-) TIA, CVA Comments: H/o Sam's palsy GI/Hepatic/Renal (+) GERD well controlled, (-) liver disease Comments: BPH Prostate Ca Endo/Other (+) diabetes mellitus type 2 poorly controlled using insulin, Comments: Obesity Abdominal (+) obese, Obstetrics Anesthesia Plan ASA 3 Type: general () Plan to include: ETT, IV induction and RSI Patient was taking beta blockers as a home medication. Beta sourav will be mariola ntained perioperatively. Anesthetic plan and risks discussed with patient. Plan discussed with SIGNALS INTELLIGENCE ANALYSIS MANAGER and attending. Post-operative analgesia: routine analgesia and antiemetics Recovery plan: PACU Risk factors for PONV: non smoker PONV risk level: low Notes BG 295 after 7 units regular. Agree with resident's note/plan/ASA status. Pt. examined, hx reviewed. Verified that the resident discussed plan and risks. TRICAL EQUIPMENT TECHNICIAN documented in this encounter Plan of Treatment Not on filedocumented as of this encounter Visit Diagnoses Not on filedocumented in this encounter Administered Medications Action Date Dose Rate Site Medication Order MAR Action 10/09/2014 3:22 PM ELECTRICAL EQUIPMENT TECHNICIAN 2 g ceFAZolin (ANCEF) injection Given As needed, Starting 10/09/14 at 1522, Anesthesia Intra-op 10/09/2014 3:47 PM ELECTRICAL EQUIPMENT TECHNICIAN 20 mg EPHEDrine 10 mg/mL syringe Given As needed, Starting 10/09/14 at 1514, Anesthesia Intra-op 10 mg Given 10/09/2014 3:23 PM ELECTRICAL EQUIPMENT TECHNICIAN 20 mg Given 10/09/2014 3:14 PM ELECTRICAL EQUIPMENT TECHNICIAN 10/09/2014 3:10 PM ELECTRICAL EQUIPMENT TECHNICIAN 50 mcg fentaNYL (SUBLIMAZE) injection Given As needed, Starting 10/09/14 at 1510, Anesthesia Intra-op 10/09/2014 4:31 PM ELECTRICAL EQUIPMENT TECHNICIAN 0.6 mg glycopyrrolate (ROBINUL) injection Given As needed, secretions, Starting 10/09/14 at 1631, Anesthesia Intra-op 10/09/2014 4:40 PM ELECTRICAL EQUIPMENT TECHNICIAN lactated ringers infusion New Bag 50 mL/hr, Intravenous, Continuous, Starting 10/09/14 at 0900 50 mL/hr 50 mL/hr New Bag 10/09/2014 9:15 AM ELECTRICAL EQUIPMENT TECHNICIAN 10/09/2014 3:11 PM ELECTRICAL EQUIPMENT TECHNICIAN 80 mg lidocaine (pf) (XYLOCAINE-MPF) 20 mg/mL Given (2 %) injection As needed, Starting 10/09/14 at 1511, Anesthesia Intra-op 10/09/2014 3:03 PM ELECTRICAL EQUIPMENT TECHNICIAN 2 mg midazolam (VERSED) injection Given As needed, Starting 10/09/14 at 1503, Anesthesia Intra-op 10/09/2014 4:31 PM ELECTRICAL EQUIPMENT TECHNICIAN 4 mg neostigmine (PROSTIGMIN) injection Given As needed, Starting 10/09/14 at 1631, Anesthesia Intra-op 10/09/2014 4:31 PM ELECTRICAL EQUIPMENT TECHNICIAN 4 mg ondansetron (ZOFRAN) 4 mg/2 mL injection Given As needed, nausea, vomiting, Starting 10/09/14 at 1631, Anesthesia Intra-op 10/09/2014 3:11 PM ELECTRICAL EQUIPMENT TECHNICIAN 160 mg propofol (DIPRIVAN) injection Given As needed, Starting 10/09/14 at 1511, Anesthesia Intra-op 10/09/2014 3:26 PM ELECTRICAL EQUIPMENT TECHNICIAN 40 mg rocuronium (ZEMURON) injection Given As needed, Starting 10/09/14 at 1526, Anesthesia Intra-op 10/09/2014 3:11 PM ELECTRICAL EQUIPMENT TECHNICIAN 160 mg succinylcholine (ANECTINE) injection Given As needed, Starting 10/09/14 at 1511, Anesthesia Intra-op documented in this encounter
--- OUTSIDE RECORDS SUMMARY | 2019-04-03 06:22 | XMS REPORT | Encounter Summary ---
Author Author [facility] Organization [facility] Address Unknown Phone Unavailable Care Team Providers Care Siding Installer Name Role Phone PCP Unavailable Encounter Details Care Team Description Date Type Department Stalin Glover MD [address] [place] [address] [id number] [phone] 07/23/2014 [facility] Encounter [address], [place] [id number] Social History Date Tobacco Use Types Packs/Day [...] Signs Reading Time Taken Comments Vital Sign 143/86 07/23/2014 10:37 AM CLINICAL QUALITY ASSURANCE ASSOCIATE Blood Pressure 68 07/23/2014 10:37 AM CLINICAL QUALITY ASSURANCE ASSOCIATE Pulse 36.7 C (98 F) 07/23/2014 10:35 AM CLINICAL QUALITY ASSURANCE ASSOCIATE Temperature 10 07/23/2014 10:37 AM CLINICAL QUALITY ASSURANCE ASSOCIATE Respiratory Rate 99% 07/23/2014 10:37 AM CLINICAL QUALITY ASSURANCE ASSOCIATE Oxygen Saturation - - Inhaled Oxygen Concentration 99.8 kg (220 lb) 07/20/2014 1:21 PM CLINICAL QUALITY ASSURANCE ASSOCIATE Weight 175.3 cm (5' 9") 07/20/2014 1:21 PM CLINICAL QUALITY ASSURANCE ASSOCIATE Height 32.49 07/20/2014 1:21 PM CLINICAL QUALITY ASSURANCE ASSOCIATE Body Mass Index documented in this encounter [...] 0 MG tablet mouth daily. Take DOS 07/23/2014 07/26/2014 homatropine (ISOPTO Administer 1 15 mL 0 HOMATROPINE) 5 % drop into the ophthalmic solution left eye 2 (two) times a day. 07/23/2014 08/02/2014 ofloxacin (OCUFLOX) 0.3 % Administer 1 5 mL 0 ophthalmic solution drop into the left eye 4 (four) times a day. 07/23/2014 08/02/2014 prednisoLONE acetate Administer 1 5 mL 0 (PRED FORTE) 1 % drop into the ophthalmic suspension left eye 4 (four) times a day. 10/05/2014 metoprolol (LOPRESSOR) Take 100 mg 0 100 MG tablet by mouth daily. Takes 100 mg in am and 50 mg in pm 10/10/2014 prednisoLONE acetate Administer 1 0 (PRED FORTE) 1 % drop to the ophthalmic suspension right eye 4 (four) times a day. documented as of this encounter H&P Notes * Stalin Glover MD - 07/20/2014 9:22 AM CLINICAL QUALITY ASSURANCE ASSOCIATE [facility] History & Physical Date: 07/23/2014 PCP: Family Hema No HPI: proliferative diabetic retinopathy with associated hemorrhage Past Medical History: Past Medical History Diagnosis [...] Bilateral CATARACT Tonsillectomy Angioplasty percutaneous transluminal peripheral Social History: History Social History Marital Status: Single Spouse Name: N/A Number of Children: N/A Years of Education: N/A Occupational History Not on file. Social History Main Topics Smoking status: Former Smoker -- 1.00 packs/day for 45 years Quit date: 07/20/2011 Smokeless tobacco: Never Used Alcohol Use: Yes Comment: [employer] Drug Use: No Sexually Active: Not on file Other Topics Concern Not on file Social History Narrative No narrative on file Family History: History reviewed. No pertinent family history. No Known Allergies Medications: Current Facility-Administered Medications Medication Dose Route Frequency Provider Last Rate Last Dose BSS PLUS intraocular solution (500 mL) w/epinephrine 0.3 mg and dextrose 50% 3 mL Left Eye See Admin Instructions Stalin Glover MD flurbiprofen (OCUFEN) 0.03 % ophthalmic solution 1 drop 1 drop Left Eye Q5 Min Stalin Glover MD homatropine (ISOPTO HOMATROPINE) 5 % ophthalmic solution 1 drop 1 drop Both Eyes Q5 Min Stalin Glover MD lidocaine (XYLOCAINE) 10 mg/mL (1 %) injection 0.1-0.3 mL 0.1-0.3 mL Intrad ermal Once Tee Perales MD ofloxacin (OCUFLOX) 0.3 % ophthalmic solution 1 drop 1 drop Left Eye Q5 Min Stalin Glover MD phenylephrine (MYDFRIN) 2.5 % ophthalmic solution 1 drop 1 drop Both Eyes Q 5 Min Stalin Glover MD sodium chloride 0.9% infusion 50 mL/hr Intravenous Continuous Tee Perales MD tropicamide (MYDRIACYL) 1 % ophthalmic solution 1 drop 1 drop Both Eyes Q5 Min Stalin Glover MD OCULAR EXAMINATION: VISUAL ACUITY: with correction OD: 20/80 OS: 20/60 APPLANATION TONOMETRY: OD: 10 mmHg OS: 10 mmHg LIDS: 2+ blepharochalasis OU SLIT-LAMP BIOMICROSCOPY: Conjunctiva/Sclera o Nasal and temporal pinguecula, 1-2+ injection OU Cornea o Clear OU o Peripheral arcus senilis 1+ OU o Basement membrane disease OD Anterior Chamber o Deep and quiet OU Iris o Normal contours and configurations OU Lens o PCIOL intact capsule OU Anterior Vitreous o 1+ strand OD o Clear OS FUNDUS BIOMICROSCOPY: Optic Nerve o Cup-to-disc ratio of 0.2 OD o Cup-to-disc ratio of 0.25 OS Vascular o Normal OU Macula o Dispersed hemorrhage, Posterior elevation, vitreomacular traction, macula thre atened OD o Dispersed hemorrhage, less traction than OD Periphery o Extensive traction detachment, prior PRP, neovascularization OD o Hemorrhage inferiorly OS Impressions: Patient Active Problem List Diagnosis SNOMED CT(R) Type II or unspecified type diabetes mellitus with ophthalmic manifestations , not stated as uncontrolled DIABETIC OCULOPATHY ASSOCIATED WITH TYPE II DIABETE S MELLITUS Proliferative diabetic retinopathy, both eyes PROLIFERATIVE DIABETIC RETINOP ATHY Vitreous hemorrhage of both eyes VITREOUS HEMORRHAGE Plan: Mr. Martínez is to undergo a 25 gauge vitrectomy and endolaser OS under general ane sthesia. Electronically signed by Stalin Glover 07/23/2014 6:50 AM ICAL QUALITY ASSURANCE ASSOCIATE documented in this encounter Nursing Notes * Rhonda Murillo RN - 07/23/2014 11:06 AM CLINICAL QUALITY ASSURANCE ASSOCIATE Discharge instructions reviewed with patient, former . Verbalized understan michaelle. ICAL QUALITY ASSURANCE ASSOCIATE documented in this encounter Miscellaneous Notes * Operative Note - Stalin Glover MD - 07/23/2014 10:29 AM CLINICAL QUALITY ASSURANCE ASSOCIATE Name: JOHN MARTÍNEZ Date of : 1945 Attending Physician: Stalin Glover MD Date of Procedure: 07/23/2014 PREOPERATIVE DIAGNOSES: 1. Proliferative diabetic retinopathy, left eye. 2. Nonclearing vitreous hemorrhage, left eye. 3. Type 2 diabetes. 4. Epiretinal membrane, left eye. 5. Vitreoretinal traction. POSTOPERATIVE DIAGNOSES: 1. Proliferative diabetic retinopathy, left eye. 2. Nonclearing vitreous hemorrhage, left eye. 3. Type 2 diabetes. 4. Epiretinal membrane, left eye. 5. Vitreoretinal traction. 6. 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 OPERATIVE PROCEDURES: 1. A 25-gauge pars plana vitrectomy. 2. Endolaser photocoagulation. 3. Membrane peeling. 4. Air-fluid gas exchange. 5. Sub-Tenon steroid injection. SURGEON: Dr. Stalin Glover. ANESTHESIA: General endotracheal. COMPLICATIONS: None. DESCRIPTION OF PROCEDURE: After obtaining the proper informed consent, the ricardo ent was premedicated and was transported to the operating room. The patient was placed in the supine position and with the appropriate cardiac monitoring and i ntravenous infusion lines, a general endotracheal anesthetic was induced by depa rtment of anesthesia without difficulty. The patient was then prepped and drape d in the usual sterile fashion for vitreoretinal surgery. Ivy lid speculums w ere inserted in left eye, and the operating microscope was positioned above the patient's left eye. Copious irrigation with normal salt tissue solution was del ivered to the conjunctival cul-de-sacs and to the lid margins. A dilia was then positioned exactly 3.5 mm posterior to the corneoscleral limbus in the inferior temporal quadrant. A 25-gauge trocar stylet system was placed in the vitreous c avity at that dilia using a biplanar incision. The stylet was withdrawn, and a 4 .0-mm cannulated infusion was placed in the trocar. Appropriate placement of th e trocar and infusion in the vitreous cavity was confirmed by direct observation prior to opening the infusion line at 35 mmHg pressure. Similar sclerotomies w ere then created in the superior temporal and superonasal quadrants exactly 3.5 mm posterior to the corneoscleral limbus. The same type of 25-gauge trocar was utilized and biplanar incisions were made. Once again, appropriate placement of the cannula in the vitreous cavity was confirmed by direct observation. The BI OM wide field microscopic viewing system was then rotated into position. With t he high-speed 25-gauge vitrectomy instrument in the superior nasal sclerotomy si te and the intraocular light pipe in superior temporal site, a central core vitr ectomy was initiated without difficulty. The vitrectomy was carried posteriorly until the posterior hyaloid was identified at the optic nerve. The hyaloid was engaged and was carefully delaminated. Numerous zones of preretinal fibrotic m embrane and vitreoretinal adhesion were present. These were carefully delaminat ed using the vitrectomy instrument and intraocular forceps. The posterior hyalo id and associated membranes were removed from Bloss and peripheral vitrectomy wa s accomplished using 360-degree scleral depression. Following completion of vit rectomy, it was noted that an inferior retinal horseshoe tear was present with l imited surrounding subretinal fluid. Air-fluid exchange was carried out using a brush backflush needle. The retina flattened in its entirety. Endolaser photo coagulation was then delivered from the directional endolaser probe at a power o f 300 milliwatts. A total of 1074 applications were delivered with good uptake. Following completion of laser, the intraocular instruments were removed and the superior nasal trocar was pulled. Massage and electrocautery were delivered to the sclerotomy site, which was found to be airtight. Air gas exchange using 15% propofol propylene C3F8 was delivered. The superior temporal trocar and venting device were removed and again massage and electrocautery were delivered to the sclerotomy site, which was found to be airtight. A similar technique was uti lized as the trocar and infusion cannula were pulled from the inferior temporal sclerotomy. The eye was then copiously irrigated with Garamycin ophthalmic solu tion. Depo-Medrol 40 mg per mL was injected in the subtenon space. Indirect op hthalmoscopy showed attached retina with good laser photocoagulation reaction. Good optic nerve perfusion was also present. At completion of procedure, the ey e was patched with topical TobraDex ointment, the anesthetic agent was reversed without difficulty. The patient was extubated and was transported to the [facility] room in good condition. Stalin Glover MD [id number] CC: ICAL QUALITY ASSURANCE ASSOCIATE * Brief Operative Note - Stalin Glover MD - 07/23/2014 9:46 AM CLINICAL QUALITY ASSURANCE ASSOCIATE 25 GAUGE VITRECTOMY, ENDOLASER , MEMBRANE PEEL, AIR FLUID GAS EXCHANGE AND SUNTE NONS INJECTION Procedure Note John Tran Mauricio 07/23/2014 Pre-op Diagnosis: PROLIFERATIVE DIABETIC RETINOPATHY Post-op Diagnosis: Post-Op Diagnosis Codes: * Proliferative diabetic retinopathy of left eye [250.50, 362.02] * Type II or unspecified type diabetes mellitus with ophthalmic manifestation s, not stated as uncontrolled [250.50, 379.90] * Vitreous hemorrhage of left eye [379.23] * Epiretinal membrane, left eye [362.56] * Retinal horseshoe tear without detachment, left [361.32] Procedure(s): 25 GAUGE VITRECTOMY, ENDOLASER , MEMBRANE PEEL, AIR FLUID GAS EXCHANGE AND SUNTE NONS INJECTION Surgeon(s) and Role: * Stalin Glover MD - Primary Anesthesia Type: General Staff: Management Internship: Nelsy Johnson RN Relief Management Internship: Radha Chavez RN Relief Scrub: Jalyn Jang Scrub Person: Aneta Chang Private Scrub: Melania Castaneda RN Float: Radha Chavez RN Anesthesiologist: Corrina Devries MD ASTRONAUT [employer] SPECIALIST: Louis Mock RN ASTRONAUT [employer] SPECIALIST Findings: Vitreoretinal traction with inferior retinal horseshoe tear, Endolas er #[id number] Complications: None Condition: Good Estimated Blood Loss: Minimal Specimens: None * No orders in the log * Drains: None Stalin Glover Date: 07/23/2014 Time: 9:46 AM ICAL QUALITY ASSURANCE ASSOCIATE documented in this encounter Plan of Treatment Not on filedocumented as of this encounter Procedures Comments Procedure Name Priority Date/Time Associated Diagnosis LAB SUMMARY 07/24/2014 2:25 AM CLINICAL QUALITY ASSURANCE ASSOCIATE GLUCOSE POC Routine 07/23/2014 9:51 AM CLINICAL QUALITY ASSURANCE ASSOCIATE VITRECTOMY, USING 07/23/2014 Proliferative diabetic 25-GAUGE INSTRUMENTS 8:12 AM CLINICAL QUALITY ASSURANCE ASSOCIATE retinopathy of left eye (HCC) Type II or unspecified type diabetes mellitus with ophthalmic manifestations, not stated as uncontrolled (HCC) Vitreous hemorrhage of left eye (HCC) Epiretinal membrane, left eye Retinal horseshoe tear without detachment, left GLUCOSE POC Routine 07/23/2014 7:39 AM CLINICAL QUALITY ASSURANCE ASSOCIATE GLUCOSE POC Routine 07/23/2014 6:25 AM CLINICAL QUALITY ASSURANCE ASSOCIATE COMPLETE BLOOD COUNT Routine 07/23/2014 6:24 AM CLINICAL QUALITY ASSURANCE ASSOCIATE BASIC METABOLIC PANEL Routine 07/23/2014 6:24 AM CLINICAL QUALITY ASSURANCE ASSOCIATE documented in this encounter Results * LAB SUMMARY (07/24/2014 2:25 AM CLINICAL QUALITY ASSURANCE ASSOCIATE) Narrative Performed At Ordered by an unspecified provider. * GLUCOSE POC (07/23/2014 9:51 AM CLINICAL QUALITY ASSURANCE ASSOCIATE) Only the most recent of 3 results within the time period is included. Pathologist [facility] Glucose POC 173 (H) 70 - 100 mg/dL [facility] Specimen Blood Performing Organization Address City/[facility] Phone Number [address] [address] LABORATORIES * Complete Blood Count (07/23/2014 6:24 AM CLINICAL QUALITY ASSURANCE ASSOCIATE) Pathologist [facility] WBC 9.42 4.00 - 11.00 TH/uL [facility] RBC 4.80 4.31 - 5.84 MIL/uL [facility] Hemoglobin 13.2 13.0 - 17.0 g/dL [facility] Hematocrit 39 (L) 40 - 50 % [facility] MCV 82 80 - 99 fL [facility] MCH 28 27 - 34 pg [facility] MCHC 34 32 - 36 % [facility] RDW 13.5 9.0 - 14.5 % [facility] Platelet Count 258 140 - 400 TH/uL [facility] MPV 9.2 (L) 9.4 - 12.3 fL [facility] Nucleated RBCs 0 0 - 0 /100 [facility] Specimen Blood - Blood Performing Organization Address City/[facility] Phone Number [address] [address] LABORATORIES * Basic Metabolic Panel (07/23/2014 6:24 AM CLINICAL QUALITY ASSURANCE ASSOCIATE) Sodium 144 133 - 147 MEQ/L [facility] Potassium 4.5 3.5 - 5.3 MEQ/L [facility] Chloride 103 96 - 112 MEQ/L [facility] Carbon Dioxide 28 20 - 32 MEQ/L [facility] Anion Gap 12 5 - 17 [facility] Calcium 9.8 8.4 - 10.5 mg/dL [facility] Glucose 245 (H) 70 - 100 mg/dL [facility] Blood Urea 23 7 - 26 mg/dL [facility] Creatinine 0.9 0.6 - 1.3 mg/dL [facility] eGFR Male AA 102 60 - 200 [facility] Comment: REGIONAL Chronic Kidney Disease less LABORATORIES than 60 mL/min/1.73 sq.m Kidney failure less than 15 mL/min/1.73 sq.m eGFR Male 84 60 - 200 [facility] Non-AA Comment: REGIONAL Chronic Kidney Disease less LABORATORIES than 60 mL/min/1.73 sq.m Kidney failure less than 15 mL/min/1.73 sq.m Specimen Blood - Blood Performing Organization Address City/State/Zipcode Phone Number [facility] [phone] [place] [address] LABORATORIES documented in this encounter Visit Diagnoses Not on filedocumented in this encounter Administered Medications Action Date Dose Rate Site Medication Order MAR Action 07/23/2014 10:49 AM CLINICAL QUALITY ASSURANCE ASSOCIATE 1 tablet acetaminophen-codeine (TYLENOL #3) Given 300-30 mg per tablet 1 tablet 1 tablet, Oral, Every 4 hours PRN, as needed, Starting Wed07/23/14 at 1036, Do not exceed 4 GM/DAY of acetaminophen. If 65 or older do not exceed 3 GM/DAY. If chronic alcoholic do not exceed 2 GM/DAY., 07/23/2014 7:30 AM CLINICAL QUALITY ASSURANCE ASSOCIATE 1 drop flurbiprofen (OCUFEN) 0.03 % ophthalmic Given solution 1 drop 1 drop, Left Eye, Every 5 min, First dose on Wed07/23/14 at 0700, For 3 doses, Pre-op, Start medications in Pre-op Admissions 45 minutes prior to surgery, 1 drop Given 07/23/2014 7:26 AM CLINICAL QUALITY ASSURANCE ASSOCIATE 1 drop Given 07/23/2014 7:20 AM CLINICAL QUALITY ASSURANCE ASSOCIATE 07/23/2014 7:31 AM CLINICAL QUALITY ASSURANCE ASSOCIATE 1 drop homatropine (ISOPTO HOMATROPINE) 5 % Given ophthalmic solution 1 drop 1 drop, Both Eyes, Every 5 min, First dose on Wed07/23/14 at 0700, For 3 doses, Pre-op, Start medications in Pre-op Admissions 45 minutes prior to surgery, 1 drop Given 07/23/2014 7:26 AM CLINICAL QUALITY ASSURANCE ASSOCIATE 1 drop Given 07/23/2014 7:21 AM CLINICAL QUALITY ASSURANCE ASSOCIATE 07/23/2014 7:15 AM CLINICAL QUALITY ASSURANCE ASSOCIATE 5 Units Left Arm insulin regular (HumuLIN R) injection 5 Given Units 5 Units, Subcutaneous, Once, Wed07/23/14 at 0730, For 1 dose, Pre-op 07/23/2014 6:50 AM CLINICAL QUALITY ASSURANCE ASSOCIATE 0.1 mL lidocaine (XYLOCAINE) 10 mg/mL (1 %) Given injection 0.1-0.3 mL 0.1-0.3 mL, Intradermal, Once, Wed07/23/14 at 0645, For 1 dose, Pre-op, Prior to / for IV insertion., 07/23/2014 7:32 AM CLINICAL QUALITY ASSURANCE ASSOCIATE 1 drop ofloxacin (OCUFLOX) 0.3 % ophthalmic Given solution 1 drop 1 drop, Left Eye, Every 5 min, First dose on Wed07/23/14 at 0700, For 3 doses, Pre-op, Number of drops 3 spaced 5 minutes apart., 1 drop Given 07/23/2014 7:27 AM CLINICAL QUALITY ASSURANCE ASSOCIATE 1 drop Given 07/23/2014 7:21 AM CLINICAL QUALITY ASSURANCE ASSOCIATE 07/23/2014 7:33 AM CLINICAL QUALITY ASSURANCE ASSOCIATE 1 drop phenylephrine (MYDFRIN) 2.5 % ophthalmic Given solution 1 drop 1 drop, Both Eyes, Every 5 min, First dose on Wed07/23/14 at 0700, For 3 doses, Pre-op, Start medications in Pre-op Admissions 45 minutes prior to surgery, 1 drop Given 07/23/2014 7:28 AM CLINICAL QUALITY ASSURANCE ASSOCIATE 1 drop Given 07/23/2014 7:23 AM CLINICAL QUALITY ASSURANCE ASSOCIATE 07/23/2014 6:50 AM CLINICAL QUALITY ASSURANCE ASSOCIATE 50 mL/hr 50 mL/hr sodium chloride 0.9% infusion New Bag 50 mL/hr, Intravenous, Continuous, Starting Wed07/23/14 at 0645, Pre-op 07/23/2014 7:34 AM CLINICAL QUALITY ASSURANCE ASSOCIATE 1 drop tropicamide (MYDRIACYL) 1 % ophthalmic Given solution 1 drop 1 drop, Both Eyes, Every 5 min, First dose on Wed07/23/14 at 0700, For 3 doses, Pre-op, Start medications in Pre-op Admissions 45 minutes prior to surgery, 1 drop Given 07/23/2014 7:28 AM CLINICAL QUALITY ASSURANCE ASSOCIATE 1 drop Given 07/23/2014 7:25 AM CLINICAL QUALITY ASSURANCE ASSOCIATE documented in this encounter
--- OUTSIDE RECORDS SUMMARY | 2019-04-03 06:22 | XMS REPORT | Encounter Summary ---
Author Author [facility] Organization [facility] Address Unknown Phone Unavailable Care Team Providers Care Data Base Design Analyst Name Role Phone PCP Unavailable Encounter Details Care Team Description Date Type Department Corrina Devries MD [address] [place] [address] [phone] Tee Perales MD [address] [place] [address] [phone] 07/23/2014 Anesthesia [facility] Event [address] [place] [address] Anesthesia Record Responsible Anesthesiologist Anesthesia Start Time Anesthesia Stop Time Procedure Name Corrina Devries MD 07/23/14 0812 07/23/14 0952 25 GAUGE VITRECTOMY, ENDOLASER , MEMBRANE PEEL, AIR FLUID GAS EXCHANGE AND SUNTENONS INJECTION (Left Eye) Date Time Event Comment 708 08 AN Equip Check 0812 In room 0812 An Start 0812 An Start Data 0815 Pt eval immediately prior to anesthesia 0815 Preoxygenated Prior to Induction 0816 An Induction 0818 An Intubation 0818 Atraumatic intubation/LMA 0818 ETCO2 wavefrom present 0818 Bilat/=breath sounds 0819 Anesthesia Ready 0846 PreOp Abx complete 0847 Time out complete 0848 Procedure start - Primary Case 0857 Anesthesiologis t Present 0938 Procedure stop - Primary case 0938 Spontaneous respirations 0943 Adequate Tidal Volume 0943 FiO2 to 100% Prior to Suctioning 0943 Suction 0943 An Extubation 0945 Oxygen per nasal cannula 0945 an stop data 0945 Transported with O2 0946 Out of Room 0952 An Stop 0953 Handoff I completed my SBAR handoff to the receiving nurse in the PACU. Vitals stable, patent airway. Meds Name Total midazolam 1mg/mL 1 mg fentaNYL (SUBLIMAZE) injection 50 mcg/mL 100 mcg lidocaine 2% (PF) 100 mg propofol 10mg/mL 180 mg rocuronium 10mg/mL 40 mg ondansetron 2mg/mL 4 mg phenylephrine 0.1mg/mL 300 mcg ePHEDrine 10mg/mL 10 mg neostigmine 0.5mg/mL 3 mg glycopyrrolate 0.2mg/mL 0.6 mg ceFAZolin (ANCEF) injection 1 g 2 g lactated ringers 800 mL * Name O2 N2O Air EtSEVO EtN2O * No blood administrations on file. Removal Type Details Placement Peripheral Date: 07/23/14; Time: 0650; Size 07/23/14 0650 by IV (gauge): 20 G; Orientation: Left; Patty Amaor RN Location: Hand; Site Prep: Chlorhexidine; Local Anesthetic: Intradermal; Insertion Attempts: 1; Inserted By: Adan Montes RN 07/23/14 0943 by Louis Mock RN CONSERVATION ASSISTANT Non-Surgic Placed By: Cyber Intel Planner; Site: Oral; 07/23/14 0851 by al Airway Device: ETT - Cuffed; Size: 7.5; Units: Millimeters; Method: Laryngoscope, Standard Stylet; Blade Type: MAC; Blade Size: 3; Attempts: 1; Grade View: I; Airway Observations: oropharynx clear, cords visualized; Placement Verified By: Ausculation, Capnometry; Secured At (cm): 22; Measured From: Lips; Removal Date: 07/23/14; Removal Time: 0943 03/19/19 0836 by User [employer] (Retired 07/23/14; 0858; Eye; Right; 03/19/19 07/23/14 0858 by Nelsy Freire 09/21/18; (This LDA has been removed & completed AUDIE Johnson search via automated utility); 0836 (This LDA "wound" if has been removed & completed via placing automated utility) new) Wound - Incision Assessment 03/19/19 0836 by User [employer] (Retired 07/23/14; 0858; Face; no incision; 07/23/14 0858 by Nelsy Freire 09/21/18; 03/19/19 (This LDA has been removed & AUDIE Johnson search completed via automated utility); 0836 "wound" if (This LDA has been removed & completed placing via automated utility) new) Wound - Incision Assessment documented in this encounter Social History Date [...] Miscellaneous Notes * Anesthesia Postprocedure Evaluation - Walter Vaughn MD - 07/23/2014 10:30 AM PROFILE GRINDER Patient: John Martínez Procedure(s): 25 GAUGE VITRECTOMY, ENDOLASER , MEMBRANE PEEL, AIR FLUID GAS EXCHANGE AND SUNTE NONS INJECTION Final Anesthesia Type Performed: general *Block Type (if peripheral regional or epidural used): No value filed. Patient location: PACU Last Vitals Filed Vitals: 07/23/14 1006 07/23/14 1020 BP: 156/70 159/76 Pulse: 77 75 Temp: Resp: 15 22 SpO2: 93% 98% Level of consciousness: awake, alert and oriented Post-anesthesia pain: adequate analgesia Airway patency: patent Respiratory: unassisted Cardiovascular: stable and blood pressure at baseline Hydration: adequate PostOp Nausea/Vomiting: controlled Difficult Airway: no Anesthetic complications: no Discharge from anesthesia care: Appropriate for discharge from anesthesia care, no apparent anesthesia related complications ILE GRINDER * Anesthesia Preprocedure Evaluation - Corrina Devries MD - 07/20/2014 6:03 PM PROFILE GRINDER Anesthesia Evaluation History of tobacco (History of smoking quit in 2010, 45 pack year history ) use. Airway Mallampati: III TM distance: >3 FB Neck ROM: full Comment: Full osborn Dental (+) upper dentures and lower dentures Pulmonary breath sounds clear to auscultation Cardiovascular (+) hypertension, Rhythm: regular Rate: normal Neuro/Psych Comments: History of Sam's palsy GI/Hepatic/Renal Endo/Other (+) diabetes mellitus type 2 poorly controlled using insulin, Comments: Proliferative diabetic retinopathy Abdominal Obstetrics Anesthesia Plan ASA 3 Type: general () Plan to include: ETT ETT: oral Anesthetic plan and risks discussed with patient. Plan discussed with CONSERVATION ASSISTANT. Post-operative analgesia: routine analgesia and antiemetics Recovery plan: PACU PONV risk level: low Notes 69 yo male with proliferative diabetic retinopathy undergoing vitrectomy ILE GRINDER documented in this encounter Plan of Treatment Not on filedocumented as of this encounter Visit Diagnoses Not on filedocumented in this encounter Administered Medications Action Date Dose Rate Site Medication Order MAR Action 07/23/2014 8:45 AM PROFILE GRINDER 2 g ceFAZolin (ANCEF) injection Given As needed, Starting Wed07/23/14 at 0845, Anesthesia Intra-op 07/23/2014 8:30 AM PROFILE GRINDER 10 mg EPHEDrine 10 mg/mL syringe Given As needed, Starting Wed07/23/14 at 0830, Anesthesia Intra-op 07/23/2014 8:52 AM PROFILE GRINDER 50 mcg fentaNYL (SUBLIMAZE) injection Given As needed, Starting Wed07/23/14 at 0816, Anesthesia Intra-op 50 mcg Given 07/23/2014 8:16 AM PROFILE GRINDER 07/23/2014 9:35 AM PROFILE GRINDER 0.6 mg glycopyrrolate (ROBINUL) injection Given As needed, secretions, Starting Wed07/23/14 at 0935, Anesthesia Intra-op 07/23/2014 8:12 AM PROFILE GRINDER lactated ringers infusion New Bag Continuous PRN, Starting Wed07/23/14 at 0812, Anesthesia Intra-op 07/23/2014 8:16 AM PROFILE GRINDER 100 mg lidocaine (pf) (XYLOCAINE-MPF) 20 mg/mL Given (2 %) injection As needed, Starting Wed07/23/14 at 0816, Anesthesia Intra-op 07/23/2014 8:12 AM PROFILE GRINDER 1 mg midazolam (VERSED) injection Given As needed, Starting Wed07/23/14 at 0812, Anesthesia Intra-op 07/23/2014 9:35 AM PROFILE GRINDER 3 mg neostigmine (PROSTIGMIN) injection Given As needed, Starting Wed07/23/14 at 0935, Anesthesia Intra-op 07/23/2014 9:30 AM PROFILE GRINDER 4 mg ondansetron (ZOFRAN) 4 mg/2 mL injection Given As needed, nausea, vomiting, Starting Wed07/23/14 at 0930, Anesthesia Intra-op 07/23/2014 9:25 AM PROFILE GRINDER 100 mcg phenylephrine HCl in 0.9% NaCl Given (NEOSYNEPHRINE) 1 mg/10 mL (100 mcg/mL) injection As needed, Starting Wed07/23/14 at 0834, Anesthesia Intra-op 100 mcg Given 07/23/2014 8:56 AM PROFILE GRINDER 100 mcg Given 07/23/2014 8:34 AM PROFILE GRINDER 07/23/2014 8:16 AM PROFILE GRINDER 180 mg propofol (DIPRIVAN) injection Given As needed, Starting Wed07/23/14 at 0816, Anesthesia Intra-op 07/23/2014 8:16 AM PROFILE GRINDER 40 mg rocuronium (ZEMURON) injection Given As needed, Starting Wed07/23/14 at 0816, Anesthesia Intra-op documented in this encounter
--- OUTSIDE RECORDS SUMMARY | 2019-04-03 06:22 | XMS REPORT | Encounter Summary ---
Author Author [facility] Organization [facility] Address Unknown Phone Unavailable Care Team Providers Care Vacuum Drier Tender Name Role Phone PCP Unavailable Encounter Details Care Team Description Date Type Department Stalin Glover MD [address] [place] [id number] [phone] 25 GAUGE VITRECTOMY, ENDOLASER , MEMBRANE PEEL, AIR FLUID GAS EXCHANGE AND SUNTENONS INJECTION 07/23/[address] [address] Social History Date Tobacco Use Types Packs/Day [...] Comments Vital Sign 143/86 07/23/2014 10:37 AM NETWORK OPERATIONS CENTER TECHNICIAN Blood Pressure 68 07/23/2014 10:37 AM NETWORK OPERATIONS CENTER TECHNICIAN Pulse 36.7 C (98 F) 07/23/2014 10:35 AM NETWORK OPERATIONS CENTER TECHNICIAN Temperature 10 07/23/2014 10:37 AM NETWORK OPERATIONS CENTER TECHNICIAN Respiratory Rate 99% 07/23/2014 10:37 AM NETWORK OPERATIONS CENTER TECHNICIAN Oxygen Saturation - - Inhaled Oxygen Concentration 99.8 kg (220 lb) 07/20/2014 1:21 PM NETWORK OPERATIONS CENTER TECHNICIAN Weight 175.3 cm (5' 9") 07/20/2014 1:21 PM NETWORK OPERATIONS CENTER TECHNICIAN Height 32.49 07/20/2014 1:21 PM NETWORK OPERATIONS CENTER TECHNICIAN Body Mass Index documented in this encounter [...] Stalin Glover MD - 07/20/2014 9:22 AM NETWORK OPERATIONS CENTER TECHNICIAN [facility] History & Physical Date: 07/23/2014 PCP: Family [facility] No HPI: proliferative diabetic retinopathy with associated [...] signed by Stalin Glover 07/23/2014 6:50 AM ORK OPERATIONS CENTER TECHNICIAN documented in this encounter Nursing Notes * Rhonda Murillo RN - 07/23/2014 11:06 AM NETWORK OPERATIONS CENTER TECHNICIAN Discharge instructions reviewed with patient, former . Verbalized understmihaela braswell. ORK OPERATIONS CENTER TECHNICIAN documented in this encounter Miscellaneous Notes * Operative Note - Stalin Glover MD - 07/23/2014 10:29 AM NETWORK OPERATIONS CENTER TECHNICIAN Name: JOHN MARTÍNEZ Date of : 1945 [...] cavity was confirmed by direct observation. The [facility] wide field microscopic viewing system was then [...] was extubated and was transported to the [facility] room in good condition. Stalin Glover MD [id number] CC: ORK OPERATIONS CENTER TECHNICIAN * Brief Operative Note - Stalin Glover MD - 07/23/2014 9:46 AM NETWORK OPERATIONS CENTER TECHNICIAN 25 GAUGE VITRECTOMY, ENDOLASER , MEMBRANE PEEL, [...] MD - Primary Anesthesia Type: General Staff: Light Oil Operator: Nelsy Johnson RN Relief Light Oil Operator: Radha Chaevz RN Relief Scrub: Jalyn Jang Scrub Person: Aneta Chang Private Scrub: Melania Castaneda RN Float: Radha Chavez RN Anesthesiologist: Corrina Devries MD BOOK CRITIC: Louis Mock RN BOOK CRITIC Findings: Vitreoretinal traction with inferior retinal horseshoe tear, Endolas er #[id number] Complications: None Condition: Good Estimated Blood Loss: Minimal Specimens: None * No orders in the log * Drains: None Stalin Glover Date: 07/23/2014 Time: 9:46 AM ORK OPERATIONS CENTER TECHNICIAN documented in this encounter Plan of Treatment Not on filedocumented as of this encounter Procedures Comments Procedure Name Priority Date/Time Associated Diagnosis LAB SUMMARY 07/24/2014 2:25 AM NETWORK OPERATIONS CENTER TECHNICIAN GLUCOSE POC Routine 07/23/2014 9:51 AM NETWORK OPERATIONS CENTER TECHNICIAN VITRECTOMY, USING 07/23/2014 Proliferative diabetic 25-GAUGE INSTRUMENTS 8:12 AM NETWORK OPERATIONS CENTER TECHNICIAN retinopathy of left eye (HCC) Type II or unspecified type diabetes mellitus with ophthalmic manifestations, not stated as uncontrolled (HCC) Vitreous hemorrhage of left eye (HCC) Epiretinal membrane, left eye 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 * GLUCOSE POC (07/23/2014 9:51 AM NETWORK OPERATIONS CENTER TECHNICIAN) Only the most recent of 3 results within the time period is included. Pathologist [facility] Glucose POC 173 (H) 70 - 100 mg/dL [facility] Specimen Blood Performing Organization Address City/[facility] Hospital[facility] Phone Number [address] [address] LABORATORIES * Complete Blood Count (07/23/2014 6:24 AM NETWORK OPERATIONS CENTER TECHNICIAN) Pathologist [facility] WBC 9.42 4.00 - 11.00 TH/uL [facility]ORATORIES RBC 4.80 4.31 - 5.84 MIL/uL [facility] Hemoglobin 13.2 13.0 - 17.0 g/dL [facility] Hematocrit 39 (L) 40 - 50 % [facility] MCV 82 80 - 99 fL [facility] MCH 28 27 - 34 pg [facility] MCHC 34 32 - 36 % [facility] RDW 13.5 9.0 - 14.5 % [facility] Platelet Count 258 140 - 400 TH/uL [facility] MPV 9.2 (L) 9.4 - 12.3 fL [facility] Nucleated RBCs 0 0 - 0 /100 [facility] Specimen Blood - Blood Performing Organization Address City/[facility]/Zipcode Phone Number [facility] [address] [place] [address] LABORATORIES * Basic Metabolic Panel (07/23/2014 6:24 AM NETWORK OPERATIONS CENTER TECHNICIAN) Sodium 144 133 - 147 MEQ/L [facility] Potassium 4.5 3.5 - 5.3 MEQ/L [facility] Chloride 103 96 - 112 MEQ/L [facility] Carbon Dioxide 28 20 - 32 MEQ/L [facility] Anion Gap 12 5 - 17 [facility] Calcium 9.8 8.4 - 10.5 mg/dL [facility] Glucose 245 (H) 70 - 100 mg/dL [facility] Blood Urea 23 7 - 26 mg/dL [facility] Creatinine 0.9 0.6 - 1.3 mg/dL [facility] eGFR Male AA 102 60 - 200 [facility] Comment: REGIONAL Chronic Kidney Disease less LABORATORIES than 60 mL/min/1.73 sq.m Kidney failure less than 15 mL/min/1.73 sq.m eGFR Male 84 60 - 200 [facility] Non-AA Comment: REGIONAL Chronic Kidney Disease less LABORATORIES than 60 mL/min/1.73 sq.m Kidney failure less than 15 mL/min/1.73 sq.m Specimen Blood - Blood Performing Organization Address City/State/Zipcode Phone Number [facility] [address] [place] [address] LABORATORIES documented in this encounter Visit Diagnoses Diagnosis Proliferative diabetic retinopathy of left eye (HCC) Type II or unspecified type diabetes mellitus with ophthalmic manifestations, not stated as uncontrolled Type II or unspecified type diabetes mellitus with ophthalmic manifestations, not stated as uncontrolled(250.50) (HCC) Type II or unspecified type diabetes mellitus with ophthalmic manifestations, not stated as uncontrolled Vitreous hemorrhage of left eye (HCC) Vitreous hemorrhage Epiretinal membrane, left eye 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 If 65 or older do not exceed 3 GM/DAY. If chronic alcoholic do not exceed 2 GM/DAY., 07/23/2014 8:55 AM NETWORK OPERATIONS CENTER TECHNICIAN 15 mL balanced salt irrig (BSS) solution Given As needed, Starting Wed07/23/14 at 0855, Intra-op 07/23/2014 8:55 AM NETWORK OPERATIONS CENTER TECHNICIAN BSS PLUS intraocular solution (500 mL) Given w/epinephrine 0.3 mg and dextrose 50% 3 mL Left Eye, As Needed in OR, per intra op, Starting Wed07/20/14 at 1410, Intra-op 07/23/2014 7:30 AM NETWORK OPERATIONS CENTER TECHNICIAN 1 drop flurbiprofen (OCUFEN) 0.03 % ophthalmic Given solution 1 drop 1 drop, Left Eye, Every 5 min, First dose on Wed07/23/14 at 0700, For 3 doses, Pre-op, Start medications in Pre-op Admissions 45 minutes prior to surgery, 1 drop Given 07/23/2014 7:26 AM NETWORK OPERATIONS CENTER TECHNICIAN 1 drop Given 07/23/2014 7:20 AM NETWORK OPERATIONS CENTER TECHNICIAN 07/23/2014 8:55 AM NETWORK OPERATIONS CENTER TECHNICIAN 1 Bottle gentamicin (GARAMYCIN) 0.3 % ophthalmic Given solution As needed, Starting Wed07/23/14 at 0855, Intra-op 07/23/2014 7:31 AM NETWORK OPERATIONS CENTER TECHNICIAN 1 drop homatropine (ISOPTO HOMATROPINE) 5 % Given ophthalmic solution 1 drop 1 drop, Both Eyes, Every 5 min, First dose on Wed07/23/14 at 0700, For 3 doses, Pre-op, Start medications in Pre-op Admissions 45 minutes prior to surgery, 1 drop Given 07/23/2014 7:26 AM NETWORK OPERATIONS CENTER TECHNICIAN 1 drop Given 07/23/2014 7:21 AM NETWORK OPERATIONS CENTER TECHNICIAN 07/23/2014 8:55 AM NETWORK OPERATIONS CENTER TECHNICIAN 2 drops hydroxypropyl methylcellulose (GONAK) Given 2.5 % ophthalmic solution As needed, dry eyes, Starting Wed07/23/14 at 0855, Intra-op 07/23/2014 7:15 AM NETWORK OPERATIONS CENTER TECHNICIAN 5 Units Left Arm insulin regular (HumuLIN R) injection 5 Given Units 5 Units, Subcutaneous, Once, Wed07/23/14 at 0730, For 1 dose, Pre-op 07/23/2014 6:50 AM NETWORK OPERATIONS CENTER TECHNICIAN 0.1 mL lidocaine (XYLOCAINE) 10 mg/mL (1 %) Given injection 0.1-0.3 mL 0.1-0.3 mL, Intradermal, Once, Wed07/23/14 at 0645, For 1 dose, Pre-op, Prior to / for IV insertion., 07/23/2014 8:56 AM NETWORK OPERATIONS CENTER TECHNICIAN 1,000 mL Operative Site multiple electrolyte (pH 7.4) (NORMOSOL) Given solution As needed, Starting Wed07/23/14 at 0856, Intra-op 07/23/2014 7:32 AM NETWORK OPERATIONS CENTER TECHNICIAN 1 drop ofloxacin (OCUFLOX) 0.3 % ophthalmic Given solution 1 drop 1 drop, Left Eye, Every 5 min, First dose on Wed07/23/14 at 0700, For 3 doses, Pre-op, Number of drops 3 spaced 5 minutes apart., 1 drop Given 07/23/2014 7:27 AM NETWORK OPERATIONS CENTER TECHNICIAN 1 drop Given 07/23/2014 7:21 AM NETWORK OPERATIONS CENTER TECHNICIAN 07/23/2014 7:33 AM NETWORK OPERATIONS CENTER TECHNICIAN 1 drop phenylephrine (MYDFRIN) 2.5 % ophthalmic Given solution 1 drop 1 drop, Both Eyes, Every 5 min, First dose on Wed07/23/14 at 0700, For 3 doses, Pre-op, Start medications in Pre-op Admissions 45 minutes prior to surgery, 1 drop Given 07/23/2014 7:28 AM NETWORK OPERATIONS CENTER TECHNICIAN 1 drop Given 07/23/2014 7:23 AM NETWORK OPERATIONS CENTER TECHNICIAN 07/23/2014 6:50 AM NETWORK OPERATIONS CENTER TECHNICIAN 50 mL/hr 50 mL/hr sodium chloride 0.9% infusion New Bag 50 mL/hr, Intravenous, Continuous, Starting Wed07/23/14 at 0645, Pre-op 07/23/2014 8:56 AM NETWORK OPERATIONS CENTER TECHNICIAN 1,000 mL sterile water irrigation irrigation Given solution As needed, irrigation, Starting Wed07/23/14 at 0856, Intra-op 07/23/2014 8:57 AM NETWORK OPERATIONS CENTER TECHNICIAN 1 inch tobramycin-dexamethasone (TOBRADEX) Given ophthalmic ointment As needed, Starting Wed07/23/14 at 0857, Intra-op 07/23/2014 7:34 AM NETWORK OPERATIONS CENTER TECHNICIAN 1 drop tropicamide (MYDRIACYL) 1 % ophthalmic Given solution 1 drop 1 drop, Both Eyes, Every 5 min, First dose on Wed07/23/14 at 0700, For 3 doses, Pre-op, Start medications in Pre-op Admissions 45 minutes prior to surgery, 1 drop Given 07/23/2014 7:28 AM NETWORK OPERATIONS CENTER TECHNICIAN 1 drop Given 07/23/2014 7:25 AM NETWORK OPERATIONS CENTER TECHNICIAN documented in this encounter
--- OUTSIDE RECORDS SUMMARY | 2019-04-03 06:23 | XMS REPORT ---
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 Active 217553623 Problem 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 Active 640446809 Problem Type 2 diabetes mellitus with diabetic polyneuropathy E11.42 Active 221467760 Problem Hypercholesterolemia E78.0 Active 14776467 Problem Fatigue, unspecified type R53.83 Active 21298288 Problem Personal history of carotid stenosis Z86.79 Active 203848131 Problem Uses walker Z99.89 Active 469042036 Problem Type 2 diabetes mellitus with diabetic neuropathy E11.40 Active 84042245 Problem Aphasia R47.01 Active 50018701 Problem S/P coronary artery stent placement Z95.5 Active 808715226 Problem Type 2 diabetes mellitus with diabetic retinopathy, macular edema presence unspecified, with unspecified retinopathy severity E11.319 Active 63701351 Problem Osteomyelitis of right foot, unspecified chronicity M86.9 Active 36031343 Problem CKD (chronic kidney disease), stage 3 (moderate) N18.3 Active 004467278 Problem Essential hypertension I10 Active 78175546 Problem GERD without esophagitis K21.9 Active 278073142 Problem Insulin long-term use Z79.4 Active 469030249 Problem CKD (chronic kidney disease) stage 3, GFR 30-59 ml/min N18.3 Active 666791350 Problem Type 2 diabetes mellitus with diabetic peripheral angiopathy without gangrene E11.51 Active 643590010 Problem Chronic kidney disease, unspecified N18.9 Active 716577612 Problem Coronary artery disease involving [place] coronary artery of [place]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 Active 9832758143501 Problem Mixed hyperlipidemia E78.2 Active 874572959 Problem Hyperlipidemia, unspecified hyperlipidemia E78.5 Active 02972180 Problem Obesity (BMI 30.0-34.9) E66.9 Active 566383015344397 Problem Chronic obstructive pulmonary disease, unspecified COPD type J44.9 Active 69198369 Problem Frequent falls R29.6 Active 953825225 Problem Peripheral vascular disease I73.9 Active 324505863 Problem Chronic diarrhea K52.9 Active 035509702 Problem Other chronic pain G89.29 Active 51475337 Problem Full incontinence of feces R15.9 Active 510937187754164 Problem Major depressive disorder, single episode, mild F32.0 Active 57428508 Problem Pain in left shoulder M25.512 Active 76399733 Problem Ulcer of left foot, unspecified ulcer stage L97.529 Active 39997775 Problem Chronic pain syndrome G89.4 Active 931085392 Problem Diabetes type 2, uncontrolled E11.65 Active 970464387 Problem High risk medication use Z79.899 Active 362727344 Problem Fecal urgency R15.2 Active 32168668 Problem Functional diarrhea K59.1 Active 66873603 Problem Type 2 diabetes mellitus with foot ulcer E11.621 Active 394828738 Problem Mixed stress and urge urinary incontinence N39.46 Active 475980541 Problem Chronic fatigue R53.82 Active 01276776 ALLERGIES No Information ENCOUNTERS Encounter Location Date Diagnosis [facility] [id number] [place] [address] [id number] Jan, Type 2 diabetes mellitus with diabetic neuropathy E11.40 [address] [id number] [place] [address] [id number] December, Bilateral low back pain without sciatica M54.5 [facility] [id number] [place] [address] [id number] Nov, Bilateral low back pain without sciatica M54.5 [address] [place] [address] [id number] Oct, Bilateral low back pain without sciatica M54.5 [id number] [id number] Oct, [facility], [place] [id number] [place] [address] Oct, [facility] [id number] [place] [address] [id number] Sep, Other chronic pain G89.29 and Diabetes type 2, uncontrolled E11.65 [facility] [address] [id number] [place] [id number] Sep, Type 2 diabetes mellitus with diabetic neuropathy E11.40 ; Atherosclerosis of [place] artery of both lower extremities, with unspecified presence of clinical manifestation I70.203 and Ulcer of left foot, unspecified ulcer stage L97.529 [facility] [id number] [place] [address] [id number] Sep, Bilateral low back pain without sciatica M54.5 [facility] [id number] [place] [address] [id number] Aug, Bilateral low back pain without sciatica M54.5 [facility] [id number] [place] [address] [id number] Aug, [facility] [id number] [place] [address] [id number] Aug, Essential hypertension I10 [facility] [id number] [place] [address] [id number] Aug, [facility] [id number] [place] [address] [id number] Jul, [facility] [id number] [place] [address] [id number] Jul, Bilateral low back pain without sciatica M54.5 [facility] [id number] [place] [address] [id number] Jul, Hyperlipidemia, unspecified hyperlipidemia E78.5 [facility] [id number] [place] [address] [id number] Jul, [facility] [id number] [place] [address] [id number] Jul, Type 2 diabetes mellitus with diabetic neuropathy E11.40 [facility] [id number] [place] [address] [id number] Jun, [facility] [address] [id number] Jun, Bilateral low back pain without sciatica M54.5 [facility] [id number][place] [id number] 14 Jun, 2018 Chronic fatigue R53.82 [facility] [id number][place] [id number] Jun, Type 2 diabetes mellitus with diabetic polyneuropathy E11.42 and Bilateral low back pain without sciatica M54.5 [facility] [id number][place] [id number] May, Other chronic pain G89.29 [facility] [id number], [place] [id number] May, Diabetes type 2, uncontrolled E11.65 [facility], [place] [address] [address] 16 May, 2018 Type 2 diabetes mellitus with diabetic neuropathy E11.40 ; Coronary artery disease involving [place] coronary artery of [place]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 and Major depressive disorder, single episode, mild F32.0 [facility] [address] [facility] [id number][place] [id number] May, [facility] [id number] [id number] May, [facility] [id number], [place] [id number] May, [facility] [id number], [place] [id number] Apr, Other chronic pain G89.29 [facility] [address] [id number] [id number] 05 Apr, 2018 [facility] [address] [facility] [id number][place] [id number] Apr, Essential hypertension I10 [facility] [id number], [place] [id number] Mar, Other chronic pain G89.29 [facility] [address] [id number][place] [phone] Mar, [facility] [id number] [place] [address] [id number] Feb, Other chronic pain G89.29 [facility] [id number] [place] [address] [id number] Feb, Diabetes type 2, uncontrolled E11.65 ; Type 2 diabetes mellitus with diabetic retinopathy, macular edema presence unspecified, with unspecified retinopathy severity E11.319 and Bilateral low back pain without sciatica M54.5 [facility] [id number] [place] [address] [id number] Feb, [facility] [id number] [place] [address] [id number] Feb, Diabetes type 2, uncontrolled E11.65 [facility] [id number] [place] [address] [id number] Feb, Other chronic pain G89.29 [facility] [id number] [place] [address] [id number] Jan, [facility] [id number] [place] [address] [id number] Jan, [facility] [id number] [place] [address] [id number] Jan, [facility] [id number] [place] [address] [id number] Jan, Other chronic pain G89.29 [facility] [id number] [place] [address] [id number] December, Mixed stress and urge urinary incontinence N39.46 [facility] [id number] [place] [address] [id number] December, Chronic fatigue R53.82 [facility] [id number] [place] [address] [id number] December, Other chronic pain G89.29 [facility] [id number] [place] [address] [id number] December, Diabetes type 2, uncontrolled E11.65 ; Type 2 diabetes mellitus with diabetic neuropathy E11.40 ; Hyperlipidemia, unspecified hyperlipidemia E78.5 ; Insulin long-term use Z79.4 ; Anemia, unspecified type D64.9 ; Foot callus L84 ; Bilateral low back pain without sciatica M54.5 ; Pain in left shoulder M25.512 ; GERD without esophagitis K21.9 ; Chronic kidney disease, unspecified N18.9 ; Uses walker Z99. 89 ; Mixed stress and urge urinary incontinence N39.46 ; Essential hypertension I10 ; Chronic obstructive pulmonary disease, unspecified COPD type J44.9 and Other chronic pain G89.29 [facility], [place] [address]00565100[place], [place] [address] December, [place] [id number] [place] [address] [id number] December, Medicare annual wellness visit, subsequent Z00.00 ; Type 2 diabetes mellitus with diabetic polyneuropathy E11.42 ; Chronic obstructive pulmonary disease, unspecified COPD type J44.9 ; Depression F32.9 ; Peripheral vascular disease I73.9 ; Coronary artery disease involving [place] coronary artery of [place]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 ; Hypercholesterolemia E78.0 ; GERD without esophagitis K21.9 and Chronic kidney disease, unspecified N18.9 [address] [id number] [place] [address] [id number] December, Mixed stress and urge urinary incontinence N39.46 ; Full incontinence of feces R15.9 ; Fecal urgency R15.2 ; Functional diarrhea K59.1 and Type 2 diabetes mellitus with diabetic neuropathy E11.40 [address] [id number] [place] [address] [id number] Nov, Other chronic pain G89.29 [address] [place] [address] [id number] Oct, [id number] [place] [address] [id number] Oct, [id number] [place] [address] [id number] Oct, Other chronic pain G89.29 [id number] [place] [address] [id number] Sep, Other chronic pain G89.29 [id number] [place] [address] [id number] Aug, CKD (chronic kidney disease), stage 3 (moderate) N18.3 ; Anemia, unspecified type D64.9 and Dilated pore of Ly L70.8 [facility] [id number] [place] [address] [id number] Aug, Other chronic pain G89.29 ; Pain in left shoulder M25.512 ; High risk medication use Z79.899 ; Uses walker Z99.89 ; Diabetes type 2, uncontrolled E11.65 and Depression F32.9 [facility] [id number] [place] [address] [id number] Aug, Chronic diarrhea K52.9 [place] [id number] [place] [address] [id number] Aug, Chronic diarrhea K52.9 ; Type 2 diabetes mellitus with diabetic neuropathy E11.40 ; Diabetes type 2, uncontrolled E11.65 ; Insulin long-term use Z79.4 ; Chronic obstructive pulmonary disease, unspecified COPD type J44.9 ; Chronic pain syndrome G89.4 ; Pain in left shoulder M25.512 ; Uses walker Z99.89 ; S/P coronary artery stent placement Z95.5 ; Mixed hyperlipidemia E78.2 and Essential hypertension I10 [place] [id number] [place] [address] [id number] Aug, [place] [id number] [place] [address] [id number] Jul, Diabetes type 2, uncontrolled E11.65 [place] [id number] [place] [address] [id number] Jul, Diabetes type 2, uncontrolled E11.65 ; Type 2 diabetes mellitus with diabetic neuropathy E11.40 ; Insulin long-term use Z79.4 and Chronic obstructive pulmonary disease, unspecified COPD type J44.9 [address] [place] [address] [id number] Jun, [address] [id number] [place] [address] [id number] Jun, Essential hypertension I10 [id number] [place] [address] [id number] Jun, Essential hypertension I10 [id number] [place] [address] [id number] Jun, Type 2 diabetes mellitus with diabetic neuropathy E11.40 ; Type 2 diabetes mellitus with diabetic 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 ; S/P coronary artery stent placement Z95.5 ; Obesity (BMI 30.0-34.9) E66.9 ; Mixed hyperlipidemia E78.2 ; Frequent falls R29.6 ; Chronic obstructive pulmonary disease, unspecified COPD type J44.9 ; Essential hypertension I10 ; Insulin long-term use Z79.4 and High risk medication use Z79.899 [address] [place] [address] [id number] May, Diarrhea, unspecified type R19.7 ; Type 2 diabetes mellitus with diabetic neuropathy E11.40 ; Chronic obstructive pulmonary disease, unspecified COPD type J44.9 ; S/P coronary artery stent placement Z95.5 ; High risk medication use Z79.899 ; Essential hypertension I10 ; Encounter for administration of vaccine Z23 and Encounter for immunization Z23 [address] [id number] [id number] May, Chronic obstructive pulmonary disease, unspecified COPD type J44.[id number] [place] [address] [id number] May, Type 2 diabetes mellitus with diabetic polyneuropathy E11.42 ; Encounter for immunization Z23 ; Needs flu shot Z23 ; Comprehensive diabetic foot examination, type 2 DM, encounter for E11.9 and Obesity (BMI 30.0-34.9) E66.9 [address] [place] [address] [id number] May, [address] [place] [address] [id number] Apr, [address] [place] [address] [id number] Apr, Essential hypertension I10 and Aphasia R47.[address] [place] [address] [id number] Apr, [address] [place] [address] [id number] Apr, Type 2 diabetes mellitus with diabetic neuropathy E11.40 ; Frequent falls R29.6 ; Essential hypertension I10 ; S/P coronary artery stent placement Z95.5 ; High risk medication use Z79.899 ; Hyperlipidemia, unspecified hyperlipidemia E78.5 ; CKD (chronic kidney disease), stage 3 (moderate) N18.3 ; Pain in left shoulder M25.512 and Chronic obstructive pulmonary disease, unspecified COPD type J44.9 [facility] [id number] [place] [address] [id number] Mar, [facility] [address] [id number] Mar, Type 2 diabetes mellitus with diabetic polyneuropathy E11.42 ; Leg wound, left, initial encounter S81.802A ; Hx of shoulder surgery Z98.890 ; Acute pain of left shoulder M25.512 and Fall, initial encounter W19.XXXA [facility] [address] [id number] Feb, Follow-up exam Z09 ; Hx of shoulder surgery Z98.890 ; Acute pain of left shoulder M25.512 ; Essential hypertension I10 and Leg wound, left, initial encounter S81.802A [facility] [id number] [place] [address] [id number] Feb, [facility] [address] [id number] Feb, [facility] [id number] [place] [address] [id number] Feb, Chronic obstructive pulmonary disease, unspecified COPD type J44.9 [facility] [id number] [place] [address] [id number] Feb, [facility] [id number] [place] [address] [id number] Jan, Generalized weakness R53.1 ; Exertional shortness of breath R06.02 and Fungal rash of trunk B36.9 [facility] [id number] [place] [address] [id number] Jan, [facility] [id number] [place] [address] [id number] Jan, [facility] [address] [id number] Jan, [place] [address] [facility] [id number] [id number] Jan, [address] [place] [address] [id number] December, High risk medication use Z79.899 [address] [id number] [id number] December, Type 2 diabetes mellitus with diabetic neuropathy E11.40 [address] [id number] December, High risk medication use Z79.899 [address] [id number] Nov, Diabetes type 2, uncontrolled E11.65 [address] [place] [address] [id number] Nov, Medicare annual wellness visit, initial Z00.00 ; Bilateral low back pain without sciatica M54.5 ; Pain in left shoulder M25.512 ; Chronic pain syndrome G89.4 ; Type 2 diabetes mellitus with diabetic polyneuropathy E11.42 ; High risk medication use Z79.899 and Encounter for immunization Z23 [address] [id number] Nov, Type 2 diabetes mellitus with diabetic neuropathy E11.40 ; Coronary artery disease involving [place] coronary artery of [place]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 and CKD (chronic kidney disease), stage 3 (moderate) N18.[address] [id number][place] [id number] Oct, Type 2 diabetes mellitus with diabetic polyneuropathy E11.42 ; Chronic pain syndrome G89.4 ; Chronic obstructive pulmonary disease, unspecified COPD type J44.9 ; Chronic kidney disease, unspecified N18.9 and Rash R21 [address] [id number] [id number] Oct, Type 2 diabetes mellitus with diabetic neuropathy E11.[address] [id number][place] [id number] Oct, Rash R21 and Impetigo L01.00 [facility] [id number], [place] [id number] Oct, Chronic pain syndrome G89.4 [facility] [id number] [place] [address] [id number] Oct, [facility] [id number] [place] [address] [id number] Sep, Sebaceous cyst L72.3 [facility] [id number] [place] [address] [id number] Sep, Sebaceous cyst L72.3 [facility] [id number] [place] [address] [id number] Sep, Chronic pain syndrome G89.4 ; Pain in left shoulder M25.512 and Effusion of olecranon bursa, left M25.422 [facility] [place] [address], [place] [address] Aug, [facility] [address] [place] [address] [id number] Aug, [place] [id number] [place] [address] [id number] Aug, Mixed hyperlipidemia E78.2 and Chronic kidney disease, unspecified N18.9 [address] [place] [address] [id number] Jul, Type 2 diabetes mellitus with diabetic neuropathy E11.40 ; Essential hypertension I10 and S/P coronary artery stent placement Z95.5 [facility] [address] [id number] Jul, 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 [address] [id number] Jul, Diabetes type 2, uncontrolled E11.65 ; Essential hypertension I10 and 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 [address] [id number] Jul, [address] [place] [address] [id number] Jul, [place] [address] [id number] Jul, [address] [place] [address] [id number] Jul, Chronic obstructive pulmonary disease, unspecified COPD type J44.9 [address] [place] [address] [id number] Jun, CKD (chronic kidney disease), stage 3 (moderate) N18.3 and Anemia, unspecified type D64.9 [address] [place] [address] [id number] Jun, Type 2 diabetes mellitus with diabetic neuropathy E11.40 ; Decreased GFR R94.4 ; CKD (chronic kidney disease), stage 3 (moderate) N18.3 and Decreased hemoglobin R71.0 [place] [id number] [place] [address] [id number] Jun, CKD (chronic kidney disease), stage 3 (moderate) N18.3 and Anemia, unspecified type D64.9 [address] [place] [address] [id number] Jun, Type 2 diabetes mellitus with diabetic neuropathy E11.40 ; Decreased GFR R94.4 and CKD (chronic kidney disease), stage 3 (moderate) N18.3 [address] [place] [address] [id number] Jun, Type 2 diabetes mellitus with diabetic neuropathy E11.40 and Essential hypertension I10 [address] [place] [address] [id number] Jun, [place] [id number] [place] [address] [id number] Jun, [address] [place] [address] [id number] Jun, Type 2 diabetes mellitus with diabetic neuropathy E11.40 ; S/P coronary artery stent placement Z95.5 ; Chronic obstructive pulmonary disease, unspecified COPD type J44.9 ; Essential hypertension I10 ; GERD without esophagitis K21.9 ; Peripheral vascular disease I73.9 ; Mixed hyperlipidemia E78.2 and Hospital discharge follow-up Z09 [place] [id number] [id number] Jun, [facility] [address] [id number][place] [id number] May, Depression F32.9 and Hyperlipidemia, unspecified hyperlipidemia E78.5 [facility] [place] [address] [id number] [address] May, [facility] [address], [place] [id number] May, [facility] [address] [id number] May, Essential hypertension I10 ; Chronic pain syndrome G89.4 ; Pain in left shoulder M25.512 ; High risk medication use Z79.899 ; Chronic obstructive pulmonary disease, unspecified COPD type J44.9 ; S/P coronary artery stent placement Z95.5 ; Personal history of carotid stenosis Z86.79 ; Hyperlipidemia, unspecified hyperlipidemia E78.5 ; Decreased GFR R94.4 and Type 2 diabetes mellitus with diabetic polyneuropathy E11.42 [facility] [address] [place] [address] [id number] May, Hemoglobin decreased R71.0 and Decreased GFR R94.4 [place] [id number] [place] [address] [id number] May, Hemoglobin decreased R71.0 and Decreased GFR R94.4 [address] [place] [address] [id number] May, [address] [id number] May, [address] [id number] [id number] Apr, [id number] [place] [address] [id number] Apr, Type 2 diabetes mellitus with foot ulcer E11.621 ; Dizziness R42 ; Fatigue, unspecified type R53.83 ; Chronic pain syndrome G89.4 ; Encounter for immunization Z23 ; Pain in left shoulder M25.512 ; Personal history of carotid stenosis Z86.79 ; High risk medication use Z79.899 ; Chronic obstructive pulmonary disease, unspecified COPD type J44.9 ; S/P coronary artery stent placement Z95.5 ; Depression F32.9 ; Hyperlipidemia, unspecified hyperlipidemia E78.5 and Essential hypertension I10 [facility] [id number] [place] [address] [id number] Apr, [facility] [id number] [place] [address] [id number] Mar, [facility] [id number] [place] [address] [id number] Mar, [address] [id number] [place] [phone] Mar, [facility] [id number] [place] [address] [id number] Feb, [facility] [id number] [place] [address] [id number] Feb, [facility] [id number] [place] [address] [id number] Feb, [facility] [id number] [place] [address] [id number] Jan, Type 2 diabetes mellitus with diabetic polyneuropathy E11.42 ; Hypercholesterolemia E78.0 ; Chronic pain syndrome G89.4 ; Pain in left shoulder M25.512 and High risk medication use Z79.899 [facility] [id number] [place] [address] [id number] Jan, [id number] [place] [address] [id number] Jan, [facility] [id number] [place] [address] [id number] December, [facility] [id number] [place] [address] [id number] December, [facility], [place] [id number] [place] [phone] December, Diabetes type 2, uncontrolled E11.65 ; Type 2 diabetes mellitus with diabetic neuropathy E11.40 ; Peripheral vascular disease I73.9 ; 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 and 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 [facility] [address] [id number] [place] [id number] Nov, [facility] [address] [id number] [place] [id number] Nov, [facility] [address] [id number] [place] [id number] Nov, [facility] [address] [id number] [place] [id number] Nov, Right hip pain M25.551 [facility], [place] [id number] [place] [phone] Nov, [facility], [place] [address] [address] Nov, [facility] [id number] [place] [address] [id number] Nov, Diabetes with neurological manifestations, type II or unspecified type, 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.60 [facility] [id number] [place] [address] [id number] Nov, [facility] [id number] [place] [address] [id number] Nov, [facility] [id number] [place] [address] [id number] Oct, Diabetes type 2, uncontrolled E11.65 ; Type 2 diabetes mellitus with diabetic neuropathy, unspecified E11.40 and Low back pain M54.5 [facility] [id number] [place] [address] [id number] Oct, [facility] [address] [id number] [id number] Oct, [facility] [id number] [place] [address] [id number] Oct, [facility] [address] [id number] [place] [address] [id number] Sep, [facility] [id number] [place] [address] [id number] Sep, [facility], [place] [id number] [place] [phone] Sep, [facility] [id number] [id number] Sep, [facility] [id number] [place] [address] [id number] Sep, [facility] [id number] [place] [address] [id number] Aug, 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 [facility] [id number] [place] [address] [id number] Aug, [facility] [id number] [place] [address] [id number] Aug, Allergic rhinitis due to pollen J30.[id number] [place] [address] [phone] Jul, [facility] [id number] [place] [address] [id number] Jul, [facility] [id number] [place] [address] [id number] Jul, [facility] [id number] [place] [address] [id number] Jun, [place] [id number] [place] [address] [id number] Jun, Thumb tendonitis M77.8 and Ringing in ear, bilateral H93.13 [facility] [address] [id number] [id number] Jun, [facility] [address] [id number] May, [facility], [place] [id number] [place] [phone] May, [facility], [place] [id number] [place] [address] May, Pre-op evaluation Z01.818 ; Encounter for immunization Z23 ; Type 2 diabetes mellitus with diabetic peripheral angiopathy without gangrene E11.51 ; Insulin long-term use Z79.4 ; Type 2 diabetes mellitus with foot ulcer E11.621 ; Peripheral vascular disease I73.9 ; Coronary artery disease involving [place] coronary artery of [place]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 ; S/P coronary artery stent placement Z95.5 ; Osteomyelitis of right foot, unspecified chronicity M86.9 and Chronic obstructive pulmonary disease, unspecified COPD type J44.9 [facility], [place] [id number] [place] [address] May, [facility] [address] [id number] May, [address] [id number] May, Diabetes type 2, uncontrolled E11.65 ; Encounter for immunization Z23 ; Osteopenia M85.80 and Allergic rhinitis due to pollen J30.1 [facility] [id number] [place] [address] [id number] May, Lumbago 724.2 [facility] [id number] [place] [address] [id number] Apr, [facility] [id number] [place] [address] [phone] Apr, [facility] [id number] [place] [address] [id number] Apr, [facility] [id number] [place] [address] [id number] Apr, [facility], [place] [id number] [place] [phone] Mar, [facility] [id number] [place] [address] [id number] Mar, [facility] [id number] [place] [address] [id number] Mar, [facility] [id number] [place] [address] [id number] Mar, [facility] [id number] [place] [address] [id number] Mar, [facility], [place] [id number] [place] [phone] Mar, [facility] [address] [id number] [id number] Mar, [facility] [address] [id number] [place] [id number] Mar, Diabetes with neurological manifestations, type II or unspecified type, 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.60 and Severe obesity (BMI 35.0-35.9 with comorbidity) 278.01 [facility] [id number] [place] [address] [id number] Mar, [facility] [id number] [place] [phone] Mar, [facility] [id number] [place] [phone] Feb, [facility] [id number] [place] [address] [id number] Feb, [facility] [address] [id number] [place] [address] [id number] Feb, [facility] [address] [id number] [place] [id number] Feb, Diabetes with neurological manifestations, type II or unspecified type, 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.60 [facility] [address] [id number] [place] [id number] Feb, [facility], [place] [address], [place] [address] Feb, [facility] [address] [id number][place] [id number] Feb, [facility] [address] [id number] [place] [id number] Feb, Follow up V67.9 ; Diabetes with neurological manifestations, type II or unspecified type, 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.60 and Congestive heart failure 428.0 [facility] [address] [id number] [place] [id number] Jan, [facility] [address] [id number][place] [id number] Jan, [facility] [address] [id number] [id number] Jan, [facility] [id number] [id number] December, Otitis media with effusion 381.4 ; Left arm numbness 782.0 and Osteoporosis 733.00 [facility] [address] [id number] [id number] December, [facility] [id number], [place] [id number] Nov, [facility] [id number], [place] [id number] Nov, Serous otitis media 381.4 and Lumbago 724.2 [facility] [id number] [place] [phone] Nov, [facility] [id number] [place] [phone] Nov, [facility] [id number] [id number] Oct, [facility] [address] [place] [phone] Oct, [facility] [id number] [id number] Oct, [facility] [address], [place] [address] Oct, [facility] [id number] [id number] Oct, [facility] [place] [facility] [address], [place] [address] Oct, [facility] [place] [facility] [id number] [place] [phone] Sep, [facility] [place] [facility] [address], [place] [address] Sep, [facility] [address] [id number], [place] [id number] Sep, [facility] [place] [facility] [address] [facility] [id number] [place] [address] Sep, [facility] [address] [facility] [id number] [place] [id number] Aug, [facility] [place] [facility] [address] [facility] [id number] [place] [address] Aug, [facility] [address] [facility] [address] [id number] [id number] Aug, [facility] [place] [facility] [address] [facility] [id number], [place] [address] Aug, [facility] [address] [facility] [address] [id number][place] [id number] Jul, [facility] [place] [facility] [address] [facility] [id number], [place] [address] Jul, [facility] [address] [facility] [address] [id number][place] [id number] Jul, [facility] [place] [facility] [address] [facility] [id number], [place] [address] Jul, [facility] [address] [facility] [id number][place] [id number] Jul, [facility] [place] [facility] [address] [facility] [id number], [place] [address] Jul, [facility] [address] [facility] [id number][place] [id number] Jun, [facility] [place] [facility] [address] [facility] [id number], [place] [address] Jun, [facility] [address] [facility] [id number], [place] [id number] May, [facility] [place] [facility] [address] [facility] [id number], [place] [address] May, [facility] [address] [facility] [id number], [place] [id number] May, [facility] [place] [facility] [address] [facility] [id number], [place] [address] May, [facility] [address] [id number], [place] [id number] May, [facility] [place] [facility] [address] [facility] [id number], [place] [address] May, [facility] [address] [id number], [place] [id number] May, [facility] [address] [facility] [id number], [place] [id number] May, [facility] [place] [facility] [address] [facility] [id number], [place] [address] May, [facility] [place] [facility] [address] [facility] [id number], [place] [address] May, [facility] [address] [facility] [id number], [place] [id number] May, [facility] [place] [facility] [address], [place] [address] May, [facility] [place] [facility] [address], [place] [address] Apr, [facility] [address] [facility] [id number], [place] [id number] Apr, [facility] [place] [facility] [address] [id number], [place] [address] Apr, [facility] [address] [facility] [id number], [place] [id number] Apr, [facility] [address] [facility] [id number], [place] [id number] Apr, [facility] [place] [facility] [address] [facility] [id number], [place] [address] Apr, [facility] [place] [facility] [address] [facility] [id number], [place] [address] Apr, [facility] [address] [facility] [id number], [place] [id number] Apr, [facility] [place] [facility] [address] [facility] [id number], [place] [address] Apr, [facility] [address] [id number] [place] [id number] Apr, [facility] [place] [facility] [address] [facility] [id number] [place] [address] Apr, [facility] [address] [id number] [place] [id number] Apr, [facility] [place] [facility] [address] [facility] [id number] [place] [address] Apr, [facility] [address] [id number] [place] [id number] Apr, [facility] [place] [facility] [address] [facility] [id number] [place] [address] Apr, [facility] [address] [id number] [place] [id number] Apr, [facility] [place] [facility] [address] [facility] [id number], [place] [address] Apr, [facility] [address] [id number] [place] [id number] Apr, [facility] [place] [facility] [address] [facility] [id number][place] [address] Apr, [facility] [address] [facility] [id number] [place] [id number] Mar, [facility] [place] [facility] [address] [facility] [id number], [place] [address] Mar, [facility] [address] [id number] [place] 982117437 Mar, [facility] [address] [id number] [place] 896363585 Mar, [facility] [place] [facility] [address] [facility] [id number], [place] [address] Mar, [facility] [place] [facility] [address] [facility] [id number], [place] [address] Mar, [facility] [address] [id number] [place] [id number] Mar, [facility] [place] [facility] [address] [id number] [place] [address] Mar, [facility] [address] [id number] [place] [id number] Mar, [facility] [place] [facility] [address] [facility] [id number] [place] [address] Mar, [facility] [address] [id number] [place] [id number] Mar, [facility] [place] [facility] [address] [id number] [place] [address] Mar, [facility] [address] [id number] [place] [id number] Mar, [facility] [place] [facility] [address] [facility] [id number] [place] [address] Mar, [facility] [address] [id number] [place] [id number] Mar, [facility] [place] [facility] [address] [facility] [id number] [place] [address] Mar, [facility] [address] [id number] [place] [id number] Mar, [facility] [place] [facility] [address] [facility] [id number] [place] [address] Mar, [facility] [address] [id number] [place] [id number] Mar, [facility] [place] [facility] [address] [facility] [id number] [place] [address] Mar, [facility] [address] [id number] [place] [id number] Feb, [facility] [place] [facility] [address] [facility] [id number] [place] [address] Feb, [facility] [address] [id number] [place] [id number] Feb, [facility] [place] [facility] [address] [facility] [id number] [place] [address] Feb, [facility] [address] [id number] [place] [id number] Feb, [facility] [place] [facility] [address] [id number] [place] [address] Feb, [facility] [address] [id number] [place] [id number] Feb, [facility] [place] [facility] [address] [id number] [place] [address] Feb, [facility] [address] [id number] [place] [id number] Feb, [facility] [place] [facility] [address] [facility] [id number] [place] [address] Feb, [facility] [address] [id number] [place] [id number] Feb, [facility] [place] [facility] [address] [facility] [id number] [place] [address] Feb, [facility] [address] [id number] [place] [id number] Feb, [facility] [place] [facility] [address] [facility] [id number], [place] [address] Feb, [facility] [address] [id number] [place] [id number] Feb, [facility] [place] [facility] [address] [facility] [id number], [place] [address] Feb, [facility] [address] [id number] [place] [id number] Feb, [facility] [place] [facility] [address] [id number] [place] [address] Feb, [facility] [address] [id number] [place] [id number] Feb, [facility] [address] [id number] [place] [id number] Feb, [facility] [place] [facility] [address] [facility] [id number], [place] [address] Feb, [facility] [place] [facility] [address] [id number] [place] [address] Feb, [facility] [address] [id number] [place] [id number] Feb, [facility] [place] [facility] [address] [id number] [place] [address] Feb, [facility] [address] [id number] [place] [id number] Feb, [facility] [place] [facility] [address] [id number] [place] [address] Feb, [facility] [address] [id number] [place] [id number] Feb, [facility] [place] [facility] [address] [facility] [id number] [place] [address] Feb, [facility] [address] [facility] [id number] [place] [id number] Jan, [facility] [place] [facility] [address] [id number] [place] [address] Jan, [facility] [place] [facility] [address] [id number] [place] [address] Jan, [facility] [place] [facility] [address] [facility] [id number] [place] [address] Jan, [facility] [place] [facility] [address] [facility] [id number] [place] [address] Jan, [facility] [place] [facility] [address] [id number] [place] [address] Jan, [facility] [address] [id number] [place] [id number] Jan, [facility] [place] [facility] [address] [id number] [place] [address] Jan, [facility] [place] [facility] [address] [id number] [place] [address] Jan, [facility] [place] [facility] [address] [id number] [place] [address] Jan, [facility] [address] [id number] [place] [id number] Jan, [facility] [address] [id number] [place] [id number] Jan, [facility] [place] [facility] [address] [facility] [id number] [place] [address] Jan, [facility] [place] [facility] [address] [id number] [place] [address] Jan, [facility] [address] [id number] [place] [id number] Jan, [facility] [address] [id number] [place] [id number] Jan, [facility] [place] [facility] [address] [facility] [id number] [place] [address] Jan, [facility] [place] [facility] [address] [facility] [id number], [place] [address] Jan, [facility] [place] [facility] [address] [facility] [id number], [place] [address] Jan, [facility] [address] [id number] [id number] December, [facility] [place] [facility] [address] [facility] [id number] [place] [address] December, [facility] [place] [facility] [address] [facility] [id number], [place] [address] December, [facility] [address] [id number] [place] [id number] December, [facility] [place] [facility] [address] [facility] [id number] [place] [address] December, [facility] [address] [id number] [place] [id number] December, [facility] [place] [facility] [address] [facility] [id number], [place] [address] December, [facility] [address] [id number] [place] [id number] December, [facility] [place] [facility] [address] [facility] [id number], [place] [address] December, [facility] [address] [id number] [place] [id number] Nov, [facility] [place] [facility] [address] [facility] [id number] [place] [address] Nov, [facility] [address] [id number][place] [id number] Nov, [facility] [place] [facility] [address] [facility] [id number] [place] [address] Nov, [facility] [place] [facility] [address] [id number], [place] [address] Nov, [facility] [place] [facility] [id number] [address] Nov, [facility] [place] [facility] [id number], [place] [address] Oct, [facility] [address] [id number][place] [id number] Oct, [facility] [place] [facility] [id number], [place] [address] Oct, [facility] [address] [id number][place] [id number] Oct, [facility] [place] [facility] [address] [facility] [id number], [place] [address] Oct, [facility] [address] [id number] [place] [id number] Sep, [facility] [place] [facility] [address] [facility] [id number], [place] [address] Sep, [facility] [address] [id number][place] [id number] Aug, [facility] [place] [facility] [address] [id number], [place] [address] Aug, [facility] [address] [id number] [place] [id number] Aug, [facility] [place] [facility] [address] [facility] [id number], [place] [address] Aug, [facility] [place] [facility] [address] [facility] [id number] [place] [address] Aug, [facility] [address] [id number][place] [id number] Aug, [facility] [place] [facility] [address] [facility] [id number] [place] [address] Aug, [facility] [place] [facility] [address] [facility] [id number], [place] [address] Aug, [facility] [address] [id number] [place] [id number] Aug, [facility] [address] [facility] [id number], [place] [address] Aug, [facility] [address] [facility] [address] [id number][place] [id number] Jul, [facility] [address] [facility] [id number], [place] [address] Jul, [facility] [address] [id number][place] [id number] Jul, [facility] [address] [facility] [id number], [place] [address] Jul, [facility] [address] [id number][place] [id number] Jul, [facility] [address] [facility] [id number], [place] [address] Jul, [facility] [address] [facility] [address] [id number], [place] [id number] Jul, [facility] [address] [facility] [id number], [place] [address] Jul, [facility] [address] [id number] [place] [id number] Jun, [facility] [address] [id number], [place] [address] Jun, [facility] [address] [id number] [place] [id number] Jun, [facility] [address] [facility] [id number], [place] [address] Jun, [facility] [address] [facility] [id number], [place] [address] Jun, [facility] [address] [facility] [id number], [place] [address] Jun, [facility] [address] [id number], [place] [id number] Apr, [facility] [address] [id number] [place] [id number] Mar, [facility] [address] [id number], [place] [id number] Mar, [facility] [address] [id number] [place] [id number] Feb, [facility] [address] [id number] [place] [id number] Feb, [facility] [address] [id number] [place] [id number] Feb, [facility] [address] [id number][place] [id number] December, [facility] [address] [id number], [place] [id number] December, [facility] [address] [id number], [place] [address] December, [facility] [address] [id number] [place] [id number] December, [facility] [address] [id number] [place] [id number] December, [facility] [address] [id number], [place] [id number] Nov, [facility] [address] [id number] [place] [id number] Nov, [facility] [address] [id number] [place] [id number] Nov, [facility] [address] [id number] [place] [id number] Oct, [facility] [address] [id number] [place] [id number] Sep, [facility] [address] [id number] [place] [id number] Aug, [facility] [address] [id number], [place] [address] Aug, [facility] [address] [id number] [place] [id number] Aug, [facility] [address] [id number] [place] [id number] Jul, [facility] [address] [facility] [id number], [place] [address] Jul, [facility] [address] [id number] [place] [id number] Jul, [facility] [address] [facility] [id number], [place] [address] Jul, [facility] [address] [id number] [place] [id number] Jun, [facility] [address] [facility] [id number], [place] [address] Jun, [facility] [address] [id number][place] [id number] May, [facility] [address] [facility] [id number], [place] [address] May, [facility] [address] [id number][place] [id number] May, [facility] [address] [facility] [id number], [place] [address] May, [facility] [address] [id number] [place] [id number] Apr, [facility] [address] [id number] [place] [address] Apr, [facility] [address] [id number] [place] [id number] Mar, [facility] [address] [id number] [place] [address] Mar, [facility] [address] [id number] [place] [id number] Feb, [facility] [address] [id number] [place] [id number] Feb, [facility] [address] [id number] [place] [id number] Jan, [facility] [address] [id number] [place] [id number] Jan, [facility] [address] [id number] [place] [id number] Jan, [facility] [address] [id number] [place] [address] Jan, [facility] [address] [id number] [place] [id number] December, [facility] [address] [id number] [place] [id number] December, [facility] [address]005[address], [place] [address] Nov, [facility] [address] [id number] [place] [id number] Nov, [facility] [address] [id number] [place] [id number] Nov, [facility] [address] [id number] [place] [id number] Nov, [facility] [address] [id number] [place] [id number] Nov, [facility] [id number], [place] [address] Oct, [facility] [address] [id number], [place] [address] Oct, [facility] [address] [id number] [place] [address]5940 Oct, [facility] [address] [id number] [place] [address]297935[address] Oct, [facility] [address] [id number] [place] [id number] Oct, [facility] [address] [id number] [place] 859497[address] Oct, [facility] [address] [id number] [place] 2907317[address] Oct, [facility] [address] [id number] [place] [id number] Oct, [facility] [address] [id number] [place] [id number] Oct, [facility] [address], [place] [address] Oct, [facility] [address] [id number] [place] [id number] Sep, [facility] [address] [id number] [place] [id number] Sep, [facility] [address] [id number] [place] 193848141 Aug, [facility] [address] [id number] [place] [id number] Aug, [facility] [id number], [place] [address] Jul, [facility] [id number], [place] [address] Jul, [facility] [id number] [place] [address] Jul, [facility] [id number] [place] [address] Jul, [facility] [id number] [place] [address] Jul, [facility] [place] [address] [id number], [place] [address] Jul, [facility] [place] [id number], [place] [address] Jul, [facility] [place] [id number], [place] [address] Jul, [facility] [place] [id number], [place] [address] Jul, [facility] [place] [id number], [place] [address] Jul, [facility] [place] [id number] [place] [address] Jul, [facility] [place] [id number], [place] [address] Jul, [facility] [place] [id number], [place] [address] Jul, [facility] [place] [address] [id number], [place] [address] Jul, IMMUNIZATIONS No Known Immunizations SOCIAL HISTORY Never Assessed REASON FOR VISIT PLAN OF CARE VITAL SIGNS Height 69 in 2014-11-12 Weight 245 lbs 2014-11-12 Temperature 97.2 degrees Fahrenheit 2014-11-12 Heart Rate 82 bpm 2014-11-12 Respiratory Rate 20 2014-11-12 Blood pressure systolic 122 mmHg 2014-11-12 Blood pressure diastolic 84 mmHg 2014-11-12 MEDICATIONS Unknown Medications RESULTS No Results PROCEDURES Procedure Date Ordered Result Body Site GLYCATED HEMOGLOBIN TEST November 12, 2014 INSTRUCTIONS MEDICATIONS ADMINISTERED No Known Medications MEDICAL (GENERAL) HISTORY Type Description Date Medical History peripheral vascular disease s/p angioplasty w/ stent R leg Medical History hypertension Medical 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 Medical History 05/26/17 noted, intermediate has ended and they feel he is [...] artery ([facility]) 10/2011 Surgical History cataract-lens implants-bilateral ([facility]) 05/2014 Surgical History Left eye retinal eye repair ([facility]) 06/2014 Surgical History amputation, toe-right third toe ([facility]) 2013 Surgical History Right eye retinal eye repair ([facility]) 09/2014 Surgical History heart cath with stent [...]
--- OUTSIDE RECORDS SUMMARY | 2019-04-03 06:24 | XMS REPORT ---
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 Active 023186359 Problem 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 Active 271670788 Problem Type 2 diabetes mellitus with diabetic polyneuropathy E11.42 Active 718241592 Problem Hypercholesterolemia E78.0 Active 08034855 Problem Fatigue, unspecified type R53.83 Active 82789934 Problem Personal history of carotid stenosis Z86.79 Active 100720225 Problem Uses walker Z99.89 Active 878324657 Problem Type 2 diabetes mellitus with diabetic neuropathy E11.40 Active 81743120 Problem Aphasia R47.01 Active 03395639 Problem S/P coronary artery stent placement Z95.5 Active 331694560 Problem Type 2 diabetes mellitus with diabetic retinopathy, macular edema presence unspecified, with unspecified retinopathy severity E11.319 Active 92417147 Problem Osteomyelitis of right foot, unspecified chronicity M86.9 Active 34257677 Problem CKD (chronic kidney disease), stage 3 (moderate) N18.3 Active 188048519 Problem Essential hypertension I10 Active 86186177 Problem GERD without esophagitis K21.9 Active 669743553 Problem Insulin long-term use Z79.4 Active 589760929 Problem CKD (chronic kidney disease) stage 3, GFR 30-59 ml/min N18.3 Active 374738125 Problem Type 2 diabetes mellitus with diabetic peripheral angiopathy without gangrene E11.51 Active 893611712 Problem Chronic kidney disease, unspecified N18.9 Active 252143310 Problem Coronary artery disease 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 Active 8496516636477 Problem Mixed hyperlipidemia E78.2 Active 858298052 Problem Hyperlipidemia, unspecified hyperlipidemia E78.5 Active 50532632 Problem Obesity (BMI 30.0-34.9) E66.9 Active 929028766948916 Problem Chronic obstructive pulmonary disease, unspecified COPD type J44.9 Active 91856052 Problem Frequent falls R29.6 Active 373717970 Problem Peripheral vascular disease I73.9 Active 036536195 Problem Chronic diarrhea K52.9 Active 972714284 Problem Other chronic pain G89.29 Active 52554088 Problem Full incontinence of feces R15.9 Active 366628835264740 Problem Major depressive disorder, single episode, mild F32.0 Active 90907039 Problem Pain in left shoulder M25.512 Active 08354674 Problem Ulcer of left foot, unspecified ulcer stage L97.529 Active 49929198 Problem Chronic pain syndrome G89.4 Active 318474776 Problem Diabetes type 2, uncontrolled E11.65 Active 998409995 Problem High risk medication use Z79.899 Active 309534096 Problem Fecal urgency R15.2 Active 99654047 Problem Functional diarrhea K59.1 Active 97927357 Problem Type 2 diabetes mellitus with foot ulcer E11.621 Active 822403089 Problem Mixed stress and urge urinary incontinence N39.46 Active 643273583 Problem Chronic fatigue R53.82 Active 47377152 ALLERGIES No Known Allergies ENCOUNTERS Encounter Location Date Diagnosis [address] [place] [address] [id number] Jan, Type 2 diabetes mellitus with diabetic neuropathy E11.[address] [place] [address] [id number] December, Bilateral low back pain without sciatica M54.5 [facility] [id number] [place] [address] [id number] Nov, Bilateral low back pain without sciatica M54.5 [address] [place] [address] [id number] Oct, Bilateral low back pain without sciatica M54.5 [facility] [address] [id number] [place] [id number] Oct, [facility] [id number] [place] [address] Oct, [facility] [id number] [place] [address] [id number] Sep, Other chronic pain G89.29 and Diabetes type 2, uncontrolled E11.65 [facility] [address] [id number] [place] [id number] Sep, Type 2 diabetes mellitus with diabetic neuropathy E11.40 ; Atherosclerosis of diomede artery of both lower extremities, with unspecified presence of clinical manifestation I70.203 and Ulcer of left foot, unspecified ulcer stage L97.529 [facility] [address] [id number] [place] [id number] Sep, Bilateral low back pain without sciatica M54.5 [facility] [address] [id number] [place] [id number] Aug, Bilateral low back pain without sciatica M54.5 [facility] [id number] [place] [address] [id number] Aug, [facility] [id number] [place] [address] [id number] Aug, Essential hypertension I10 [facility] [id number] [place] [address] [id number] Aug, [facility] [address] [id number] [place] [address] [id number] Jul, [facility] [address] [id number] [place] [address] [id number] Jul, Bilateral low back pain without sciatica M54.5 [facility] [id number] [place] [address] [id number] Jul, Hyperlipidemia, unspecified hyperlipidemia E78.5 [facility] [address] [id number] [place] [id number] Jul, [facility] [address] [id number] [place] [address] [id number] Jul, Type 2 diabetes mellitus with diabetic neuropathy E11.40 [facility] [address] [id number] [place] [address] [id number] Jun, [facility] [address] [id number] [place] [address] [id number] Jun, Bilateral low back pain without sciatica M54.5 [facility] [id number] [place] [id number] 14 Jun, 2018 [facility] fatigue R53.82 [facility] [id number] [place] [id number] Jun, Type 2 diabetes mellitus with diabetic polyneuropathy E11.42 and Bilateral low back pain without sciatica M54.5 [facility] [id number] [place] [id number] May, Other chronic pain G89.29 [facility] [id number] [place] [id number] May, Diabetes type 2, uncontrolled E11.65 [facility] [address] [address] 16 May, 2018 Type 2 diabetes mellitus with diabetic neuropathy E11.40 ; Coronary artery disease 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 and Major depressive disorder, single episode, mild F32.0 [facility] [id number] [place] [id number] May, [facility] [id number] [place] [id number] May, [facility] [id number] [place] [id number] May, [facility] [id number] [place] [id number] Apr, Other chronic pain G89.[address] [facility] [address] [id number][place] [id number] 05 Apr, 2018 [facility] [address] [facility] [id number] [place] [id number] Apr, Essential hypertension I10 [facility] [id number] [place] [id number] Mar, Other chronic pain G89.29 [facility] [address] [id number] [place] [id number] Mar, [facility] [id number] [place] [id number] Feb, Other chronic pain G89.29 [facility] [id number] [place] [id number] Feb, Diabetes type 2, uncontrolled E11.65 ; Type 2 diabetes mellitus with diabetic retinopathy, macular edema presence unspecified, with unspecified retinopathy severity E11.319 and Bilateral low back pain without sciatica M54.5 [facility] [address] [id number] [place] [address] [id number] Feb, [facility] [id number] [place] [address] [id number] Feb, Diabetes type 2, uncontrolled E11.65 [facility] [id number] [place] [address] [id number] Feb, Other chronic pain G89.29 [facility] [id number] [place] [address] [id number] Jan, [facility] [id number] [place] [address] [id number] Jan, [facility] [id number] [place] [address] [id number] Jan, [facility] [id number] [place] [address] [id number] Jan, Other chronic pain G89.29 [facility] [id number] [place] [address] [id number] December, Mixed stress and urge urinary incontinence N39.46 [facility] [id number] [place] [id number] December, Chronic fatigue R53.82 [facility] [id number] [place] [address] [id number] December, Other chronic pain G89.29 [facility] [id number] [place] [id number] December, Diabetes type 2, uncontrolled E11.65 ; [...] G89.29 [facility] [address]100[place] [address] December, [place] [id number] [place] [address] [id number] December, Medicare annual wellness visit, subsequent Z00.00 ; Type 2 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 ; Chronic obstructive pulmonary disease, unspecified COPD type J44.9 ; Depression F32.9 ; Peripheral vascular disease I73.9 ; Coronary artery disease 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 ; Hypercholesterolemia E78.0 ; GERD without esophagitis K21.9 and Chronic kidney disease, unspecified N18.9 [id number] [place] [address] [id number] December, Mixed stress and urge urinary incontinence N39.46 ; Full incontinence of feces R15.9 ; Fecal urgency R15.2 ; Functional diarrhea K59.1 and Type 2 diabetes mellitus with diabetic neuropathy E11.40 [id number] [place] [address] [id number] Nov, Other chronic pain G89.29 [id number] [place] [address] [id number] Oct, [address] [id number] [place] [address] [id number] Oct, [address] [place] [id number] [place] [address] [id number] Oct, Other chronic pain G89.29 [id number] [place] [address] [id number] Sep, Other chronic pain G89.29 [id number] [place] [address] [id number] Aug, CKD (chronic kidney disease), stage 3 (moderate) N18.3 ; Anemia, unspecified type D64.9 and Dilated pore of Ly L70.8 [facility] [id number] [place] [address] [id number] Aug, Other chronic pain G89.29 ; Pain in left shoulder M25.512 ; High risk medication use Z79.899 ; Uses walker Z99.89 ; Diabetes type 2, uncontrolled E11.65 and Depression F32.9 [place] [id number] [place] [address] [id number] Aug, Chronic diarrhea K52.9 [place] [id number] [place] [address] [id number] Aug, Chronic diarrhea K52.9 ; Type 2 diabetes mellitus with diabetic neuropathy E11.40 ; Diabetes type 2, uncontrolled E11.65 ; Insulin long-term use Z79.4 ; Chronic obstructive pulmonary disease, unspecified COPD type J44.9 ; Chronic pain syndrome G89.4 ; Pain in left shoulder M25.512 ; Uses walker Z99.89 ; S/P coronary artery stent placement Z95.5 ; Mixed hyperlipidemia E78.2 and Essential hypertension I10 [place] [id number] [place] [address] [id number] Aug, [address] [id number] [place] [address] [id number] Jul, Diabetes type 2, uncontrolled E11.65 [facility] [id number] [place] [address] [id number] Jul, Diabetes type 2, uncontrolled E11.65 ; Type 2 diabetes mellitus with diabetic neuropathy E11.40 ; Insulin long-term use Z79.4 and Chronic obstructive pulmonary disease, unspecified COPD type J44.9 [place] [id number] [place] [address] [id number] Jun, [address] [id number] [place] [address] [id number] Jun, Essential hypertension I10 [address] [id number] [place] [address] [id number] Jun, Essential hypertension I10 [address] [place] [address] [id number] 01 Nov, 2017 Type 2 diabetes mellitus with diabetic neuropathy E11.40 ; Type 2 diabetes mellitus with diabetic polyneuropathy E11.42 ; S/P coronary artery stent placement Z95.5 ; Obesity (BMI 30.0-34.9) E66.9 ; Mixed hyperlipidemia E78.2 ; Frequent falls R29.6 ; Chronic obstructive pulmonary disease, unspecified COPD type J44.9 ; Essential hypertension I10 ; Insulin long-term use Z79.4 and High risk medication use Z79.899 [address] [place] [address] [id number] May, Diarrhea, unspecified type R19.7 ; Type 2 diabetes mellitus with diabetic neuropathy E11.40 ; Chronic obstructive pulmonary disease, unspecified COPD type J44.9 ; S/P coronary artery stent placement Z95.5 ; High risk medication use Z79.899 ; Essential hypertension I10 ; Encounter for administration of vaccine Z23 and Encounter for immunization Z23 [address] [id number][place] [id number] May, Chronic obstructive pulmonary disease, unspecified COPD type J44.9 [address] [place] [address] [id number] May, Type 2 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 ; Encounter for immunization Z23 ; Needs flu shot Z23 ; Comprehensive diabetic foot examination, type 2 DM, encounter for E11.9 and Obesity (BMI 30.0-34.9) E66.9 [address] [place] [address] [id number] May, [address] [place] [address] [id number] Apr, [address] [place] [address] [id number] Apr, Essential hypertension I10 and Aphasia R47.[address] [id number] Apr, [address] [place] [id number] [place] [address] [id number] Apr, Type 2 diabetes mellitus with diabetic neuropathy E11.40 ; Frequent falls R29.6 ; Essential hypertension I10 ; S/P coronary artery stent placement Z95.5 ; High risk medication use Z79.899 ; Hyperlipidemia, unspecified hyperlipidemia E78.5 ; CKD (chronic kidney disease), stage 3 (moderate) N18.3 ; Pain in left shoulder M25.512 and Chronic obstructive pulmonary disease, unspecified COPD type J44.9 [facility] [id number] [place] [address] [id number] Mar, [address] [id number] Mar, Type 2 diabetes mellitus with diabetic 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 ; Leg wound, left, initial encounter S81.802A ; Hx of shoulder surgery Z98.890 ; Acute pain of left shoulder M25.512 and Fall, initial encounter W19.XXXA [address] [id number] Feb, Follow-up exam Z09 ; Hx of shoulder surgery Z98.890 ; Acute pain of left shoulder M25.512 ; Essential hypertension I10 and Leg wound, left, initial encounter S81.802A [facility] [id number] [place] [address] [id number] Feb, [address] [id number] Feb, [address] [place] [id number] [place] [address] [id number] Feb, Chronic obstructive pulmonary disease, unspecified COPD type J44.9 [id number] [place] [address] [id number] Feb, [address] [place] [address] [place] [address] [id number] Jan, Generalized weakness R53.1 ; Exertional shortness of breath R06.02 and Fungal rash of trunk B36.9 [address] [place] [place] [address] [id number] Jan, [address] [place] [place] [address] [id number] Jan, [address] [place] [place] [address] [id number] Jan, [place] [address] [facility] [id number] [place] [id number] Jan, [address] [id number] December, High risk medication use Z79.899 [address] [id number] December, Type 2 diabetes mellitus with diabetic neuropathy E11.40 [address] [place] [address] [id number] December, High risk medication use Z79.899 [address] [place] [address] [id number] Nov, Diabetes type 2, uncontrolled E11.65 [address] [place] [address] [id number] Nov, Medicare annual wellness visit, initial Z00.00 ; Bilateral low back pain without sciatica M54.5 ; Pain in left shoulder M25.512 ; Chronic pain syndrome G89.4 ; Type 2 diabetes mellitus with diabetic polyneuropathy E11.42 ; High risk medication use Z79.899 and Encounter for immunization Z23 [address] [place] [address] [id number] Nov, Type 2 diabetes mellitus with diabetic neuropathy E11.40 ; Coronary artery disease 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 and CKD (chronic kidney disease), stage 3 (moderate) N18.3 [address] [id number] Oct, Type 2 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 ; Chronic pain syndrome G89.4 ; Chronic obstructive pulmonary disease, unspecified COPD type J44.9 ; Chronic kidney disease, unspecified N18.9 and Rash R21 [address] [id number][place] [id number] Oct, Type 2 diabetes mellitus with diabetic neuropathy E11.[address] [id number] [place] [id number] Oct, Rash R21 and Impetigo L01.[address] [id number] [place] [id number] Oct, Chronic pain syndrome G89.4 [facility] [id number] [place] [address] [id number] Oct, [facility] [id number] [place] [address] [id number] Sep, Sebaceous cyst L72.3 [facility] [id number] [place] [address] [id number] Sep, Sebaceous cyst L72.3 [facility] [id number] [place] [address] [id number] Sep, Chronic pain syndrome G89.4 ; Pain in left shoulder M25.512 and Effusion of olecranon bursa, left M25.422 [facility] [address] [address] Aug, [address] [place] [address] [id number] Aug, [facility] [id number] [place] [address] [id number] Aug, Mixed hyperlipidemia E78.2 and Chronic kidney disease, unspecified N18.9 [address] [address] [place] [address] [id number] Jul, Type 2 diabetes mellitus with diabetic neuropathy E11.40 ; Essential hypertension I10 and S/P coronary artery stent placement Z95.5 [address] [id number] Jul, 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 [address] [id number] Jul, Diabetes type 2, uncontrolled E11.65 ; Essential hypertension I10 and 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 [address] [id number] Jul, [address] [place] [address] [id number] Jul, [place] [address] [place] [address] [id number] Jul, [address] [place] [address] [id number] Jul, Chronic obstructive pulmonary disease, unspecified COPD type J44.9 [address] [place] [address] [id number] Jun, CKD (chronic kidney disease), stage 3 (moderate) N18.3 and Anemia, unspecified type D64.9 [address] [address] [place] [address] [id number] Jun, Type 2 diabetes mellitus with diabetic neuropathy E11.40 ; Decreased GFR R94.4 ; CKD (chronic kidney disease), stage 3 (moderate) N18.3 and Decreased hemoglobin R71.0 [place] [address] [place] [address] [id number] Jun, CKD (chronic kidney disease), stage 3 (moderate) N18.3 and Anemia, unspecified type D64.9 [address] [place] [address] [id number] Jun, Type 2 diabetes mellitus with diabetic neuropathy E11.40 ; Decreased GFR R94.4 and CKD (chronic kidney disease), stage 3 (moderate) N18.3 [address] [address] [place] [address] [id number] Jun, Type 2 diabetes mellitus with diabetic neuropathy E11.40 and Essential hypertension I10 [address] [place] [address] [id number] Jun, [address] [place] [place] [address] [id number] Jun, [address] [place] [address] [id number] Jun, Type 2 diabetes mellitus with diabetic neuropathy E11.40 ; S/P coronary artery stent placement Z95.5 ; Chronic obstructive pulmonary disease, unspecified COPD type J44.9 ; Essential hypertension I10 ; GERD without esophagitis K21.9 ; Peripheral vascular disease I73.9 ; Mixed hyperlipidemia E78.2 and Hospital discharge follow-up Z09 [id number] [place] [address] [id number] Jun, [place] [id number] [id number] May, Depression F32.9 and Hyperlipidemia, unspecified hyperlipidemia E78.5 [facility] [address] [facility] [id number] [address] May, [place] [id number] [id number] May, [address] [place] [address] [id number] May, Essential hypertension I10 ; Chronic pain syndrome G89.4 ; Pain in left shoulder M25.512 ; High risk medication use Z79.899 ; Chronic obstructive pulmonary disease, unspecified COPD type J44.9 ; S/P coronary artery stent placement Z95.5 ; Personal history of carotid stenosis Z86.79 ; Hyperlipidemia, unspecified hyperlipidemia E78.5 ; Decreased GFR R94.4 and Type 2 diabetes mellitus with diabetic polyneuropathy E11.42 [address] [id number] May, Hemoglobin decreased R71.0 and Decreased GFR R94.[address] [place] [address] [id number] May, Hemoglobin decreased R71.0 and Decreased GFR R94.[address] [place] [address] [id number] May, [address] [id number] May, [address] [id number] Apr, [address] [id number] Apr, Type 2 diabetes mellitus with foot [...] unspecified hyperlipidemia E78.5 and Essential hypertension I10 [facility] [id number] [place] [address] [id number] Apr, [facility] [id number] [place] [address] [id number] Mar, [facility] [id number] [place] [address] [id number] Mar, [place] [address] [address] Mar, [facility] [id number] [place] [address] [id number] Feb, [facility] [id number] [place] [address] [id number] Feb, [facility] [id number] [place] [address] [id number] Feb, [facility] [id number] [place] [address] [id number] Jan, Type 2 diabetes mellitus with diabetic polyneuropathy E11.42 ; Hypercholesterolemia E78.0 ; Chronic pain syndrome G89.4 ; Pain in left shoulder M25.512 and High risk medication use Z79.899 [facility] [id number] [place] [address] [id number] Jan, [place] [id number] [place] [address] [id number] Jan, [facility] [id number] [place] [address] [id number] December, [facility] [id number] [place] [address] [id number] December, [facility] [id number] [place] [address] December, Diabetes type 2, uncontrolled E11.65 ; Type 2 diabetes mellitus with diabetic neuropathy E11.40 ; Peripheral vascular disease I73.9 ; 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 and 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 [facility] [address] [id number] [place] [id number] Nov, [facility] [address] [id number] [place] [id number] Nov, [facility] [address] [id number] [place] [id number] Nov, [facility] [address] [id number] [place] [id number] Nov, Right hip pain M25.551 [facility] [id number] [place] [address] Nov, [facility] [id number] [place] [address] Nov, [facility] [id number] [place] [address] [id number] Nov, Diabetes with neurological manifestations, type II or unspecified type, 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.60 [facility] [address] [id number] [place] [id number] Nov, [facility] [address] [id number] [place] [id number] Nov, [facility] [address] [id number] [place] [address] [id number] Oct, Diabetes type 2, uncontrolled E11.65 ; Type 2 diabetes mellitus with diabetic neuropathy, unspecified E11.40 and Low back pain M54.5 [facility] [address] [id number] [place] [id number] Oct, [facility] [address] [id number] [place] [id number] Oct, [facility] [address] [id number] [place] [id number] Oct, [facility] [address] [id number] [place] [address] [id number] Sep, [facility] [id number] [place] [address] [id number] Sep, [facility] [id number] [place] [address] Sep, [facility] [id number] [place] [id number] Sep, [facility] [id number] [place] [address] [id number] Sep, [facility] [id number] [place] [address] [id number] Aug, 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 [facility] [id number] [place] [address] [id number] Aug, [facility] [id number] [place] [address] [id number] Aug, Allergic rhinitis due to pollen J30.1 [id number] [place] [address] [id number] Jul, [facility] [id number] [place] [address] [id number] Jul, [address] [place] [address] [id number] Jul, [id number] [place] [address] [id number] Jun, [address] [place] [address] [id number] Jun, Thumb tendonitis M77.8 and Ringing in ear, bilateral H93.13 [facility] [address] [id number] [id number] Jun, [address] [place] [address] [id number] May, [facility] [address] [place] [address] May, [facility] [address] [place] [address] May, Pre-op evaluation Z01.818 ; Encounter for immunization Z23 ; Type 2 diabetes mellitus with diabetic peripheral angiopathy without gangrene E11.51 ; Insulin long-term use Z79.4 ; Type 2 diabetes mellitus with foot ulcer E11.621 ; Peripheral vascular disease I73.9 ; Coronary artery disease 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 ; S/P coronary artery stent placement Z95.5 ; Osteomyelitis of right foot, unspecified chronicity M86.9 and Chronic obstructive pulmonary disease, unspecified COPD type J44.9 [facility] [id number] [place] [address] May, [id number] [place] [address] [id number] May, [address] [id number] May, Diabetes type 2, uncontrolled E11.65 ; Encounter for immunization Z23 ; Osteopenia M85.80 and Allergic rhinitis due to pollen J30.1 [facility] [address] [id number] May, Lumbago 724.2 [address] [id number] Apr, [address] [place] [address] [id number] Apr, [facility] [id number] [place] [address] [id number] Apr, [facility] [id number] [place] [address] [id number] Apr, [facility] [id number] [place] [address] Mar, [facility] [id number] [place] [address] [id number] Mar, [facility] [id number] [place] [address] [id number] Mar, [facility] [id number] [place] [address] [id number] Mar, [facility] [id number] [place] [address] [id number] Mar, [facility] [id number] [place] [address] Mar, [facility] [address] [id number] [place] [id number] Mar, [facility] [id number] [place] [id number] Mar, Diabetes with neurological manifestations, type II or unspecified type, 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.60 and Severe obesity (BMI 35.0-35.9 with comorbidity) 278.01 [facility] [address] [id number] [id number] Mar, [facility] [id number] [place] [address] Mar, [facility] [id number] [place] [address] Feb, [facility] [id number] [place] [address] [id number] Feb, [facility] [id number] [place] [id number] Feb, [facility] [id number] [place] [address] [id number] Feb, Diabetes with neurological manifestations, type II or unspecified type, 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.60 [facility] [id number] [place] [id number] Feb, [facility] [address] [place] [phone] Feb, [facility] [id number] [place] [id number] Feb, [facility] [id number] [place] [id number] Feb, Follow up V67.9 ; Diabetes with neurological manifestations, type II or unspecified type, 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.60 and Congestive heart failure 428.0 [facility] [id number] [place] [id number] Jan, [facility] [id number] [place] [id number] Jan, [facility] [address] [id number] [id number] Jan, [facility] [address] [id number] [place] [id number] December, Otitis media with effusion 381.4 ; Left arm numbness 782.0 and Osteoporosis 733.00 [facility] [address] [id number] [place] [id number] December, [facility] [id number] [place] [id number] Nov, [facility] [id number] [place] [id number] Nov, Serous otitis media 381.4 and Lumbago 724.2 [facility] [place] [facility] [id number] [place] [address] Nov, [facility] [place] [facility] [id number] [place] [address] Nov, [facility] [id number] [place] [id number] Oct, [facility] [place] [facility] [address]00565100[place], [place] [address] Oct, [facility] [id number] [place] [id number] Oct, [facility] [place] [facility] [address]00565100[place], [place] [address] Oct, [facility] [address] [id number] [place] [id number] Oct, [facility] [place] [facility] [address]00565100[place], [place] [address] Oct, [facility] [place] [facility] [address]00565100[place], [place] [address] Sep, [facility] [place] [facility] [address]00565100[place], [place] [address] Sep, [facility] [address] [id number] [place] [id number] Sep, [facility] [place] [facility] [address] [id number] [address] Sep, [facility] [address] [id number] [place] [id number] Aug, [facility] [place] [facility] [address] [facility] [id number], [place] [address] Aug, [facility] [address] [facility] [id number] [place] [id number] Aug, [facility] [place] [facility] [address] [facility] [id number], [place] [address] Aug, [facility] [address] [facility] [id number] [place] [id number] Jul, [facility] [place] [facility] [address] [facility] [id number], [place] [address] Jul, [facility] [address] [id number] [place] [id number] Jul, [facility] [place] [facility] [address] [facility] [id number], [place] [address] Jul, [facility] [address] [facility] [id number] [place] [id number] Jul, [facility] [place] [facility] [address] [facility] [id number][place] [address] Jul, [facility] [address] [id number] [place] [id number] Jun, [facility] [place] [facility] [address] [facility] [id number], [place] [address] Jun, [facility] [address] [facility] [id number] [place] [id number] May, [facility] [place] [facility] [address] [facility] [id number], [place] [address] May, [facility] [address] [facility] [id number] [place] [id number] May, [facility] [place] [facility] [address] [facility] [id number], [place] [address] May, [facility] [address] [id number] [place] [id number] May, [facility] [place] [facility] [address] [id number], [place] [address] May, [facility] [address] [id number] [place] [id number] May, [facility] [address] [id number] [place] [id number] May, [facility] [place] [facility] [address] [id number], [place] [address] May, [facility] [place] [facility] [address] [facility] [id number][place] [address] May, [facility] [address] [facility] [id number] [place] [id number] May, [facility] [place] [facility] [address] [facility] [id number][place] [address] May, [facility] [place] [facility] [address] [facility] [id number], [place] [address] Apr, [facility] [address] [id number] [place] [id number] Apr, [facility] [place] [facility] [address] [facility] [id number], [place] [address] Apr, [facility] [address] [facility] [id number] [place] [id number] Apr, [facility] [address] [id number] [place] [id number] Apr, [facility] [place] [facility] [address] [facility] [id number], [place] [address] Apr, [facility] [place] [facility] [address] [facility] [id number][place] [address] Apr, [facility] [address] [id number] [place] [id number] Apr, [facility] [place] [facility] [address] [facility] [id number][place] [address] Apr, [facility] [address] [id number] [place] [id number] Apr, [facility] [place] [facility] [address] [facility] [id number][place] [address] Apr, [facility] [address] [id number] [place] [id number] Apr, [facility] [place] [facility] [address] [facility] [id number][place] [address] Apr, [facility] [address] [id number] [place] [id number] Apr, [facility] [place] [facility] [address] [facility] [id number][place] [address] Apr, [facility] [address] [facility] [id number] [place] [id number] Apr, [facility] [place] [facility] [address]00565100[place], [place] [address] Apr, [facility] [address] [facility] [id number] [place] [id number] Apr, [facility] [place] [facility] [address] [facility] [id number][place] [address] Apr, [facility] [address] [facility] [id number] [place] 066351411 Mar, [facility] [place] [facility] [address] [facility] [id number][place] [address] Mar, [facility] [address] [id number] [place] [id number] Mar, [facility] [address] [id number] [place] [id number] Mar, [facility] [place] [facility] [address] [facility] [id number], [place] [address] Mar, [facility] [place] [facility] [address] [facility] [id number], [place] [address] Mar, [facility] [address] [id number] [place] [id number] Mar, [facility] [place] [facility] [address] [id number] [place] [address] Mar, [facility] [address] [id number] [place] [id number] Mar, [facility] [place] [facility] [address] [facility] [id number] [place] [address] Mar, [facility] [address] [id number] [place] [id number] Mar, [facility] [place] [facility] [address] [facility] [id number] [place] [address] Mar, [facility] [address] [id number] [place] [id number] Mar, [facility] [place] [facility] [address] [facility] [id number] [place] [address] Mar, [facility] [address] [id number] [place] [id number] Mar, [facility] [place] [facility] [address] [facility] [id number] [place] [address] Mar, [facility] [address] [id number] [place] [id number] Mar, [facility] [place] [facility] [address] [facility] [id number], [place] [address] Mar, [facility] [address] [facility] [id number] [place] [id number] Mar, [facility] [place] [facility] [address] [facility] [id number], [place] [address] Mar, [facility] [address] [id number] [place] [id number] Feb, [facility] [place] [facility] [address] [facility] [id number] [place] [address] Feb, [facility] [address] [id number] [place] [id number] Feb, [facility] [place] [facility] [address] [facility] [id number], [place] [address] Feb, [facility] [address] [id number] [place] [id number] Feb, [facility] [place] [facility] [address] [id number] [place] [address] Feb, [facility] [address] [id number] [place] [id number] Feb, [facility] [place] [facility] [address] [id number] [place] [address] Feb, [facility] [address] [id number] [place] [id number] Feb, [facility] [place] [facility] [address] [id number] [place] [address] Feb, [facility] [address] [id number] [place] [id number] Feb, [facility] [place] [facility] [address] [facility] [id number] [place] [address] Feb, [facility] [address] [id number] [place] [id number] Feb, [facility] [place] [facility] [address] [id number] [place] [address] Feb, [facility] [address] [id number] [place] [id number] Feb, [facility] [place] [facility] [address] [id number], [place] [address] Feb, [facility] [address] [id number] [place] [id number] Feb, [facility] [place] [facility] [address] [id number] [place] [address] Feb, [facility] [address] [id number] [place] [id number] Feb, [facility] [address] [id number] [place] [id number] Feb, [facility] [place] [facility] [address] [id number], [place] [address] Feb, [facility] [place] [facility] [address] [id number], [place] [address] Feb, [facility] [address] [facility] [id number] [place] [id number] Feb, [facility] [place] [facility] [address] [facility] [id number] [place] [address] Feb, [facility] [address] [facility] [id number] [place] [id number] Feb, [facility] [place] [facility] [address] [id number] [place] [address] Feb, [facility] [address] [facility] [id number] [place] [id number] Feb, [facility] [place] [facility] [address] [facility] [id number] [place] [address] Feb, [facility] [address] [facility] [id number] [place] [id number] Jan, [facility] [place] [facility] [address] [id number], [place] [address] Jan, [facility] [place] [facility] [address] [facility] [id number], [place] [address] Jan, [facility] [place] [facility] [address] [facility] [id number], [place] [address] Jan, [facility] [place] [facility] [address] [facility] [id number], [place] [address] Jan, [facility] [place] [facility] [address] [facility] [id number], [place] [address] Jan, [facility] [address] [facility] [id number] [place] [id number] Jan, [facility] [place] [facility] [address] [id number], [place] [address] Jan, [facility] [place] [facility] [address] [facility] [id number] [place] [address] Jan, [facility] [place] [facility] [address] [facility] [id number] [place] [address] Jan, [facility] [address] [id number] [place] [id number] Jan, [facility] [address] [id number] [place] [id number] Jan, [facility] [place] [facility] [address] [facility] [id number] [place] [address] Jan, [facility] [place] [facility] [address] [facility] [id number] [place] [address] Jan, [facility] [address] [id number] [place] [id number] Jan, [facility] [address] [id number] [place] [id number] Jan, [facility] [place] [facility] [address] [facility] [id number] [place] [address] Jan, [facility] [place] [facility] [address] [facility] [id number] [place] [address] Jan, [facility] [place] [facility] [address] [facility] [id number] [place] [address] Jan, [facility] [address] [facility] [id number] [place] [id number] December, [facility] [place] [facility] [address] [facility] [id number] [place] [address] December, [facility] [place] [facility] [address] [facility] [id number] [place] [address] December, [facility] [address] [id number] [place] [id number] December, [facility] [place] [facility] [address] [id number] [place] [address] December, [facility] [address] [id number] [place] [id number] December, [facility] [place] [facility] [address] [facility] [id number] [place] [address] December, [facility] [address] [id number] [place] [id number] December, [facility] [place] [facility] [address] [facility] [id number] [place] [address] December, [facility] [address] [facility] [id number] [place] [id number] Nov, [facility] [place] [facility] [address] [facility] [id number] [place] [address] Nov, [facility] [address] [facility] [id number] [place] [id number] Nov, [facility] [place] [facility] [address] [facility] [id number] [place] [address] Nov, [facility] [place] [facility] [address] [facility] [id number] [place] [address] Nov, [facility] [place] [facility] [id number] [place] [address] Nov, [facility] [place] [facility] [address] [id number] [place] [address] Oct, [facility] [address] [facility] [id number] [place] [id number] Oct, [facility] [place] [facility] [address] [id number] [address] Oct, [facility] [address] [facility] [id number] [place] [id number] Oct, [facility] [place] [facility] [address] [facility] [id number], [place] [address] Oct, [facility] [address] [facility] [id number] [place] [id number] Sep, [facility] [place] [facility] [address] [facility] [id number], [place] [address] Sep, [facility] [address] [facility] [id number] [place] [id number] Aug, [facility] [place] [facility] [address] [facility] [id number], [place] [address] Aug, [facility] [address] [id number] [place] [id number] Aug, [facility] [place] [facility] [address] [facility] [id number] [place] [address] Aug, [facility] [place] [facility] [address] [facility] [id number] [place] [address] Aug, [facility] [address] [id number] [place] [id number] Aug, [facility] [place] [facility] [address] [id number] [place] [address] Aug, [facility] [place] [facility] [address] [facility] [id number] [place] [address] Aug, [facility] [address] [facility] [id number] [place] [id number] Aug, [facility] [place] [facility] [id number] [place] [address] Aug, [facility] [address] [id number] [place] [id number] Jul, [facility] [place] [facility] [address] [facility] [id number], [place] [address] Jul, [facility] [address] [facility] [id number] [place] [id number] Jul, [facility] [address] [facility] [id number][place] [address] Jul, [facility] [address] [id number] [place] [id number] Jul, [facility] [address] [facility] [id number][place] [address] Jul, [facility] [address] [id number] [place] [id number] Jul, [facility] [address] [facility] [id number], [place] [address] Jul, [facility] [address] [id number] [place] [id number] Jun, [facility] [address] [id number][place] [address] Jun, [facility] [address] [id number] [place] [id number] Jun, [facility] [address] [facility] [id number][place] [address] Jun, [facility] [address] [facility] [id number], [place] [address] Jun, [facility] [address] [facility] [id number][place] [address] Jun, [facility] [address] [id number] [place] [id number] Apr, [facility] [address] [id number] [place] [id number] Mar, [facility] [address] [id number] [place] [id number] Mar, [facility] [address] [id number] [place] [id number] Feb, [facility] [address] [id number] [place] [id number] Feb, [facility] [address] [id number] [place] [id number] Feb, [facility] [address] [id number] [place] [id number] December, [facility] [address] [id number] [place] [id number] December, [facility] [address] [id number], [place] [address] December, [facility] [address] [id number] [place] [id number] December, [facility] [address] [id number] [place] [id number] December, [facility] [address] [id number] [place] [id number] Nov, [facility] [address] [id number] [place] [id number] Nov, [facility] [address] [id number] [place] [id number] Nov, [facility] [address] [id number] [place] [phone] Oct, [facility] [address] [id number] [place] [id number] Sep, [facility] [address] [id number] [place] [id number] Aug, [facility] [address] [id number], [place] [address] Aug, [facility] [address] [id number] [place] [id number] Aug, [facility] [address] [id number] [place] [id number] Jul, [facility] [address] [facility] [id number], [place] [address] Jul, [facility] [address] [id number] [place] [id number] Jul, [facility] [address] [facility] [id number], [place] [address] Jul, [facility] [address] [id number] [place] [id number] Jun, [facility] [address] [facility] [id number], [place] [address] Jun, [facility] [address] [id number] [place] [id number] May, [facility] [address] [facility] [id number], [place] [address] May, [facility] [address] [id number] [place] [id number] May, [facility] [address] [facility] [id number], [place] [address] May, [facility] [address] [id number] [place] [id number] Apr, [facility] [address] [id number] [place] [id number] Apr, [facility] [address] [id number] [place] [id number] Mar, [facility] [address] [id number] [place] [id number] Mar, [facility] [address] [id number] [place] [id number] Feb, [facility] [address] [id number] [place] [id number] Feb, [facility] [address] [id number] [place] [id number] Jan, [facility] [address] [id number] [place] [id number] Jan, [facility] [address] [id number] [place] [id number] Jan, [facility] [address] [id number] [place] [id number] Jan, [facility] [address] [id number] [place] [address] December, [facility] [address] [id number] [place] [id number] December, [facility] [address]00565[address], [place] [address] Nov, [facility] [address] [id number] [place] [phone] Nov, [facility] [address] [id number] [place] [id number] Nov, [facility] [address] [id number] [place] [id number] Nov, [facility] [address] [id number] [place] [id number] Nov, [facility] [id number] [place] [address] Oct, [facility] [id number] [place] [address] Oct, [facility] [address] [id number] [place] [id number] Oct, [facility] [address] [id number] [place] [id number] Oct, [facility] [address] [id number] [place] [id number] Oct, [facility] [address] [id number] [place] [id number] Oct, [facility] [address] [id number] [place] [id number] Oct, [facility] [address] [id number] [place] [id number] Oct, [facility] [address] [id number] [place] [id number] Oct, [facility] [address], [place] [address] Oct, [facility] [address] [id number] [place] [id number] Sep, [facility] [address] [id number] [place] [id number] Sep, [facility] [address] [id number] [place] [id number] Aug, [facility] [address] [id number] [place] [id number] Aug, [facility] [address], [place] [address] Jul, [facility] [address], [place] [address] Jul, [facility] [address] [id number], [place] [address] Jul, [facility] [address], [place] [address] Jul, [facility] [address], [place] [address] Jul, [facility] [address] [id number], [place] [address] Jul, [facility] [address], [place] [address] Jul, [facility] [address], [place] [address] Jul, [facility] [address], [place] [address] Jul, [facility] [address], [place] [address] Jul, [facility] [address] [place] [address] Jul, [facility] [address], [place] [address] Jul, [facility] [address], [place] [address] Jul, [facility] [address] [id number], [place] [address] Jul, IMMUNIZATIONS No Known Immunizations SOCIAL HISTORY Never Assessed REASON FOR VISIT A1C, needs updated controlled contract and PDM, foot exam needed. Hx of foot [facility] eulalia licea PLAN OF CARE Activity Details Follow Up 4 Weeks Reason:dm VITAL SIGNS Height 69 in 2018-10-24 Weight 233.6 lbs 2018-10-24 Temperature 98.3 degrees Fahrenheit 2018-10-24 Heart Rate 100 bpm 2018-10-24 Respiratory Rate 18 2018-10-24 Oximetry 95 % 2018-10-24 BMI 34.49 kg/m2 2018-10-24 Blood pressure systolic 122 mmHg 2018-10-24 Blood pressure diastolic 64 mmHg 2018-10-24 MEDICATIONS Medication Instructions Dosage Frequency Start Date End Date Duration Status Domingo Contour Test - In Vitro 4 times a day, DX E11.42 ...TEST BLOOD SUGAR 30 days Active Megestrol Acetate 40 mg Orally Once a day 1/2 tablet 24h Active Folic Acid 1 mg Orally Once a day 1 tablet 24h 0 Active Escitalopram Oxalate 20 MG TAKE ONE (1) TABLET BY MOUTH DAILY... Once a day Orally 0 days 0 Active Lancets - subcutaneously 3 times a day as directed 8h Jun, Active Cetirizine HCl 10 mg Orally Once a day 1 tablet 24h 0 days Active ProAir HFA 108 (90 Base) mcg/act Inhalation 4 times a day 2 puffs as needed 6h Active Tramadol HCl 50 mg Orally 3 times a day,must last 28 days 1 tablet 28 days Active Tamsulosin HCl 0.4 MG Orally Once a day 1 capsule 24h Active Aspirin Adult Low Strength 81 MG Orally Once a day 1 tablet 24h Active Prilosec 20 MG TAKE ONE (1) CAPSULE BY MOUTH ONCE DAILY... Active Atorvastatin Calcium 40 mg Orally Once a day 1 tablet 24h Active Disposable Brief X-Large - externally prn as directed December, 0 days Active Nitroglycerin 0.4 MG Active Walker - Rolator walker with seat and hand brakes Jan, Active Victoza 18 MG/3ML INJECT (1.8) MG SUBCUTANEOUSLY ONCE DAILY IN THE MORNING.... (DOES HIMSELF).. Active NovoLog Flexpen 100 UNIT/ML Subcutaneous 3 times a day before meals (if bs less than 130 then hold ) 7 units Active UltiCare Micro Pen [place] 32G X 4 MM USE TWICE DAILY... Active Levemir FlexTouch 100 UNIT/ML INJECT 54 am 52 unit pm 12h Active Cyanocobalamin 1000 MCG/ML Siajsxnhi-DC-mbmndx add needle and syringe with this and will be given at [facility] once every 30 days 1 ml December, 0 days Active Lasix 20 MG TAKE 1/2 TABLET BY MOUTH ONCE DAILY. 90 Active Carvedilol 3.125 MG Orally 2 times a day 1/2 tablet in am and in pm 12h 30 days Active RESULTS Name Result Date Reference Range A1C (IN HOUSE) 2018-10-24 A1C IN HOUSE 8.6 4.3 - 5.6 % Previous A1c 8.4 Lot [id number] Exp date 08/18 PROCEDURES Procedure Date Ordered Result Body Site GLYCATED HEMOGLOBIN TEST Oct 24, 2018 [facility] VISIT ESTABLISHED PATIENT Oct 24, 2018 INSTRUCTIONS MEDICATIONS ADMINISTERED No Known Medications MEDICAL (GENERAL) HISTORY Type Description Date Medical History peripheral vascular disease s/p angioplasty w/ stent R leg Medical History hypertension Medical 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) 09/2014 Surgical History heart cath [...]
--- OUTSIDE RECORDS SUMMARY | 2019-04-03 06:25 | XMS REPORT ---
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 Active 190163328 Problem 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 Active 356647248 Problem Type 2 diabetes mellitus with diabetic polyneuropathy E11.42 Active 956825420 Problem Hypercholesterolemia E78.0 Active 25933166 Problem Fatigue, unspecified type R53.83 Active 12201779 Problem Personal history of carotid stenosis Z86.79 Active 888801892 Problem Uses walker Z99.89 Active 348652984 Problem Type 2 diabetes mellitus with diabetic neuropathy E11.40 Active 40884780 Problem Aphasia R47.01 Active 06990242 Problem S/P coronary artery stent placement Z95.5 Active 861498810 Problem Type 2 diabetes mellitus with diabetic retinopathy, macular edema presence unspecified, with unspecified retinopathy severity E11.319 Active 10660398 Problem Osteomyelitis of right foot, unspecified chronicity M86.9 Active 07102311 Problem CKD (chronic kidney disease), stage 3 (moderate) N18.3 Active 453748791 Problem Essential hypertension I10 Active 11001839 Problem GERD without esophagitis K21.9 Active 823940924 Problem Insulin long-term use Z79.4 Active 642654014 Problem CKD (chronic kidney disease) stage 3, GFR 30-59 ml/min N18.3 Active 702667368 Problem Type 2 diabetes mellitus with diabetic peripheral angiopathy without gangrene E11.51 Active 799937552 Problem Chronic kidney disease, unspecified N18.9 Active 834082989 Problem Coronary artery disease involving [place] coronary artery of big [place]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 Active 2932899192582 Problem Mixed hyperlipidemia E78.2 Active 449478782 Problem Hyperlipidemia, unspecified hyperlipidemia E78.5 Active 76684085 Problem Obesity (BMI 30.0-34.9) E66.9 Active 801150810559118 Problem Chronic obstructive pulmonary disease, unspecified COPD type J44.9 Active 96780467 Problem Frequent falls R29.6 Active 723170278 Problem Peripheral vascular disease I73.9 Active 540711618 Problem Chronic diarrhea K52.9 Active 557742493 Problem Other chronic pain G89.29 Active 01302761 Problem Full incontinence of feces R15.9 Active 495608436455177 Problem Major depressive disorder, single episode, mild F32.0 Active 61779502 Problem Pain in left shoulder M25.512 Active 98735503 Problem Ulcer of left foot, unspecified ulcer stage L97.529 Active 80968278 Problem Chronic pain syndrome G89.4 Active 192169752 Problem Diabetes type 2, uncontrolled E11.65 Active 364952594 Problem High risk medication use Z79.899 Active 895855591 Problem Fecal urgency R15.2 Active 41198792 Problem Functional diarrhea K59.1 Active 82203102 Problem Type 2 diabetes mellitus with foot ulcer E11.621 Active 548600407 Problem Mixed stress and urge urinary incontinence N39.46 Active 659032642 Problem Chronic fatigue R53.82 Active 91619186 ALLERGIES No Information ENCOUNTERS Encounter Location Date Diagnosis [facility] [id number] [place] [address] [id number] Jan, Type 2 diabetes mellitus with diabetic neuropathy E11.40 [place] [id number] [place] [address] [id number] December, Bilateral low back pain without sciatica M54.5 [facility] [id number] [place] [address] [id number] Nov, Bilateral low back pain without sciatica M54.5 [address] [place] [address] [id number] Oct, Bilateral low back pain without sciatica M54.5 [place] [id number] [id number] Oct, [facility] [id number] [place] [address] Oct, [facility] [place] [id number] [place] [address] [id number] Sep, Other chronic pain G89.29 and Diabetes type 2, uncontrolled E11.65 [facility] [place] [address] [id number] [place] [id number] Sep, Type 2 diabetes mellitus with diabetic neuropathy E11.40 ; Atherosclerosis of big lag[place] artery of both lower extremities, with unspecified presence of clinical manifestation I70.203 and Ulcer of left foot, unspecified ulcer stage L97.529 [facility] [place] [id number] [place] [address] [id number] Sep, Bilateral low back pain without sciatica M54.5 [facility] [id number] [place] [address] [id number] Aug, Bilateral low back pain without sciatica M54.5 [facility] [id number] [place] [address] [id number] Aug, [facility] [place] [id number] [place] [address] [id number] Aug, Essential hypertension I10 [facility] [place] [id number] [place] [address] [id number] Aug, [facility] [id number] [place] [address] [id number] Jul, [facility] [place] [id number] [place] [address] [id number] Jul, Bilateral low back pain without sciatica M54.5 [facility] [place] [id number] [place] [address] [id number] Jul, Hyperlipidemia, unspecified hyperlipidemia E78.5 [facility] [place] [id number] [place] [address] [id number] Jul, [facility] [id number] [place] [address] [id number] Jul, Type 2 diabetes mellitus with diabetic neuropathy E11.40 [facility] [place] [id number] [place] [address] [id number] Jun, [facility] [address] [id number] Jun, Bilateral low back pain without sciatica M54.5 [facility] [id number], [place] [id number] 14 Jun, 2018 Chronic fatigue R53.82 [facility] [id number], [place] [id number] Jun, Type 2 diabetes mellitus with diabetic polyneuropathy E11.42 and Bilateral low back pain without sciatica M54.5 [facility] [id number], [place] [id number] May, Other chronic pain G89.29 [facility] [id number], [place] [id number] May, Diabetes type 2, uncontrolled E11.65 [facility] [address], [place] [address] 16 May, 2018 Type 2 diabetes mellitus with diabetic neuropathy E11.40 ; Coronary artery disease involving big lagoon coronary artery of big lagoon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 and Major depressive disorder, single episode, mild F32.0 [facility] [address] [facility] [id number][place] [id number] May, [facility] [id number], [place] [id number] May, [facility] [id number], [place] [id number] May, [facility] [id number], [place] [id number] Apr, Other chronic pain G89.29 [facility] [address] [id number] [id number] 05 Apr, 2018 [facility] [address] [facility] [id number][place] [id number] Apr, Essential hypertension I10 [facility] [id number], [place] [id number] Mar, Other chronic pain G89.29 [facility] [address] [id number][place] [id number] Mar, [facility] [id number] [place] [address] [id number] Feb, Other chronic pain G89.29 [facility] [id number] [place] [address] [id number] Feb, Diabetes type 2, uncontrolled E11.65 ; Type 2 diabetes mellitus with diabetic retinopathy, macular edema presence unspecified, with unspecified retinopathy severity E11.319 and Bilateral low back pain without sciatica M54.5 [facility] [id number] [place] [address] [id number] Feb, [facility] [id number] [place] [address] [id number] Feb, Diabetes type 2, uncontrolled E11.65 [facility] [id number] [place] [address] [id number] Feb, Other chronic pain G89.29 [facility] [id number] [place] [address] [id number] Jan, [facility] [id number] [place] [address] [id number] Jan, [facility] [id number] [place] [address] [id number] Jan, [facility] [id number] [place] [address] [id number] Jan, Other chronic pain G89.29 [facility] [id number] [place] [address] [id number] December, Mixed stress and urge urinary incontinence N39.46 [facility] [id number] [place] [address] [id number] December, Chronic fatigue R53.82 [facility] [id number] [place] [address] [id number] December, Other chronic pain G89.29 [facility] [id number] [place] [address] [id number] December, Diabetes type 2, uncontrolled E11.65 ; [...] pain G89.29 [facility] [address]00565100[place], [place] [address] December, [place] [id number] [place] [address] [id number] December, Medicare annual wellness visit, subsequent Z00.00 ; Type 2 diabetes mellitus with diabetic 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 ; Chronic obstructive pulmonary disease, unspecified COPD type J44.9 ; Depression F32.9 ; Peripheral vascular disease I73.9 ; Coronary artery disease involving big [place] coronary artery of big lag[place]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 ; Hypercholesterolemia E78.0 ; GERD without esophagitis K21.9 and Chronic kidney disease, unspecified N18.9 [place] [id number] [place] [address] [id number] December, Mixed stress and urge urinary incontinence N39.46 ; Full incontinence of feces R15.9 ; Fecal urgency R15.2 ; Functional diarrhea K59.1 and Type 2 diabetes mellitus with diabetic neuropathy E11.40 [place] [id number] [place] [address] [id number] Nov, Other chronic pain G89.29 [address] [place] [address] [id number] Oct, [place] [id number] [place] [address] [id number] Oct, [place] [id number] [place] [address] [id number] Oct, Other chronic pain G89.29 [place] [id number] [place] [address] [id number] Sep, Other chronic pain G89.29 [place] [id number] [place] [address] [id number] Aug, CKD (chronic kidney disease), stage 3 (moderate) N18.3 ; Anemia, unspecified type D64.9 and Dilated pore of Ly L70.8 [facility] [id number] [place] [address] [id number] Aug, Other chronic pain G89.29 ; Pain in left shoulder M25.512 ; High risk medication use Z79.899 ; Uses walker Z99.89 ; Diabetes type 2, uncontrolled E11.65 and Depression F32.9 [facility] [id number] [place] [address] [id number] Aug, Chronic diarrhea K52.9 [place] [id number] [place] [address] [id number] Aug, Chronic diarrhea K52.9 ; Type 2 diabetes mellitus with diabetic neuropathy E11.40 ; Diabetes type 2, uncontrolled E11.65 ; Insulin long-term use Z79.4 ; Chronic obstructive pulmonary disease, unspecified COPD type J44.9 ; Chronic pain syndrome G89.4 ; Pain in left shoulder M25.512 ; Uses walker Z99.89 ; S/P coronary artery stent placement Z95.5 ; Mixed hyperlipidemia E78.2 and Essential hypertension I10 [place] [id number] [place] [address] [id number] Aug, [place] [id number] [place] [address] [id number] Jul, Diabetes type 2, uncontrolled E11.65 [place] [id number] [place] [address] [id number] Jul, Diabetes type 2, uncontrolled E11.65 ; Type 2 diabetes mellitus with diabetic neuropathy E11.40 ; Insulin long-term use Z79.4 and Chronic obstructive pulmonary disease, unspecified COPD type J44.9 [address] [place] [address] [id number] Jun, [place] [id number] [place] [address] [id number] Jun, Essential hypertension I10 [place] [id number] [place] [address] [id number] Jun, Essential hypertension I10 [place] [id number] [place] [address] [id number] Jun, Type 2 diabetes mellitus with diabetic neuropathy E11.40 ; Type 2 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 ; S/P coronary artery stent placement Z95.5 ; Obesity (BMI 30.0-34.9) E66.9 ; Mixed hyperlipidemia E78.2 ; Frequent falls R29.6 ; Chronic obstructive pulmonary disease, unspecified COPD type J44.9 ; Essential hypertension I10 ; Insulin long-term use Z79.4 and High risk medication use Z79.899 [address] [place] [address] [id number] May, Diarrhea, unspecified type R19.7 ; Type 2 diabetes mellitus with diabetic neuropathy E11.40 ; Chronic obstructive pulmonary disease, unspecified COPD type J44.9 ; S/P coronary artery stent placement Z95.5 ; High risk medication use Z79.899 ; Essential hypertension I10 ; Encounter for administration of vaccine Z23 and Encounter for immunization Z23 [address] [id number] [id number] May, Chronic obstructive pulmonary disease, unspecified COPD type J44.[id number] [place] [address] [id number] May, Type 2 diabetes mellitus with diabetic 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 ; Encounter for immunization Z23 ; Needs flu shot Z23 ; Comprehensive diabetic foot examination, type 2 DM, encounter for E11.9 and Obesity (BMI 30.0-34.9) E66.9 [address] [place] [address] [id number] May, [address] [place] [address] [id number] Apr, [address] [place] [address] [id number] Apr, Essential hypertension I10 and Aphasia R47.[address] [place] [address] [id number] Apr, [address] [place] [address] [id number] Apr, Type 2 diabetes mellitus with diabetic neuropathy E11.40 ; Frequent falls R29.6 ; Essential hypertension I10 ; S/P coronary artery stent placement Z95.5 ; High risk medication use Z79.899 ; Hyperlipidemia, unspecified hyperlipidemia E78.5 ; CKD (chronic kidney disease), stage 3 (moderate) N18.3 ; Pain in left shoulder M25.512 and Chronic obstructive pulmonary disease, unspecified COPD type J44.9 [facility] [id number] [place] [address] [id number] Mar, [facility] [address] [id number] Mar, Type 2 diabetes mellitus with diabetic 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 ; Leg wound, left, initial encounter S81.802A ; Hx of shoulder surgery Z98.890 ; Acute pain of left shoulder M25.512 and Fall, initial encounter W19.XXXA [facility] [address] [id number] Feb, Follow-up exam Z09 ; Hx of shoulder surgery Z98.890 ; Acute pain of left shoulder M25.512 ; Essential hypertension I10 and Leg wound, left, initial encounter S81.802A [facility] [id number] [place] [address] [id number] Feb, [facility] [address] [id number] Feb, [facility] [id number] [place] [address] [id number] Feb, Chronic obstructive pulmonary disease, unspecified COPD type J44.9 [facility] [id number] [place] [address] [id number] Feb, [facility] [id number] [place] [address] [id number] Jan, Generalized weakness R53.1 ; Exertional shortness of breath R06.02 and Fungal rash of trunk B36.9 [facility] [id number] [place] [address] [id number] Jan, [facility] [id number] [place] [address] [id number] Jan, [facility] [address] [id number] Jan, [place] [address] [facility] [id number] [id number] Jan, [address] [place] [address] [id number] December, High risk medication use Z79.899 [place] [id number] [id number] December, Type 2 diabetes mellitus with diabetic neuropathy E11.40 [address] [id number] December, High risk medication use Z79.899 [address]100[place] [id number] Nov, Diabetes type 2, uncontrolled E11.65 [address] [place] [address] [id number] Nov, Medicare annual wellness visit, initial Z00.00 ; Bilateral low back pain without sciatica M54.5 ; Pain in left shoulder M25.512 ; Chronic pain syndrome G89.4 ; Type 2 diabetes mellitus with diabetic polyneuropathy E11.42 ; High risk medication use Z79.899 and Encounter for immunization Z23 [address] [id number] Nov, Type 2 diabetes mellitus with diabetic neuropathy E11.40 ; Coronary artery disease involving big [place] coronary artery of big lag[place]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 and CKD (chronic kidney disease), stage 3 (moderate) N18.[address] [id number][place] [id number] Oct, Type 2 diabetes mellitus with diabetic polyneuropathy E11.42 ; Chronic pain syndrome G89.4 ; Chronic obstructive pulmonary disease, unspecified COPD type J44.9 ; Chronic kidney disease, unspecified N18.9 and Rash R21 [address] [id number][place] [id number] Oct, Type 2 diabetes mellitus with diabetic neuropathy E11.[address] [id number], [place] [id number] Oct, Rash R21 and Impetigo L01.00 [facility] [id number], [place] [id number] Oct, Chronic pain syndrome G89.4 [facility] [id number] [place] [address] [id number] Oct, [facility] [id number] [place] [address] [id number] Sep, Sebaceous cyst L72.3 [facility] [id number] [place] [address] [id number] Sep, Sebaceous cyst L72.3 [facility] [id number] [place] [address] [id number] Sep, Chronic pain syndrome G89.4 ; Pain in left shoulder M25.512 and Effusion of olecranon bursa, left M25.422 [facility] [address]00565100[place], [place] [address] Aug, [facility] [address] [place] [address] [id number] Aug, [place] [id number] [place] [address] [id number] Aug, Mixed hyperlipidemia E78.2 and Chronic kidney disease, unspecified N18.9 [address] [place] [address] [id number] Jul, Type 2 diabetes mellitus with diabetic neuropathy E11.40 ; Essential hypertension I10 and S/P coronary artery stent placement Z95.5 [facility] [address], [place] [id number] Jul, 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 [address] [id number] Jul, Diabetes type 2, uncontrolled E11.65 ; Essential hypertension I10 and 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 [address], [place] [id number] Jul, [address] [place] [address] [id number] Jul, [id number] [id number] Jul, [address] [place] [address] [id number] Jul, Chronic obstructive pulmonary disease, unspecified COPD type J44.9 [address] [place] [address] [id number] Jun, CKD (chronic kidney disease), stage 3 (moderate) N18.3 and Anemia, unspecified type D64.9 [address] [place] [address] [id number] Jun, Type 2 diabetes mellitus with diabetic neuropathy E11.40 ; Decreased GFR R94.4 ; CKD (chronic kidney disease), stage 3 (moderate) N18.3 and Decreased hemoglobin R71.0 [place] [id number] [place] [address] [id number] Jun, CKD (chronic kidney disease), stage 3 (moderate) N18.3 and Anemia, unspecified type D64.9 [address] [place] [address] [id number] Jun, Type 2 diabetes mellitus with diabetic neuropathy E11.40 ; Decreased GFR R94.4 and CKD (chronic kidney disease), stage 3 (moderate) N18.3 [address] [place] [address] [id number] Jun, Type 2 diabetes mellitus with diabetic neuropathy E11.40 and Essential hypertension I10 [address] [place] [address] [id number] Jun, [place] [id number] [place] [address] [id number] Jun, [address] [place] [address] [id number] Jun, Type 2 diabetes mellitus with diabetic neuropathy E11.40 ; S/P coronary artery stent placement Z95.5 ; Chronic obstructive pulmonary disease, unspecified COPD type J44.9 ; Essential hypertension I10 ; GERD without esophagitis K21.9 ; Peripheral vascular disease I73.9 ; Mixed hyperlipidemia E78.2 and Hospital discharge follow-up Z09 [id number] [id number] Jun, [facility] [address] [id number], [place] [id number] May, Depression F32.9 and Hyperlipidemia, unspecified hyperlipidemia E78.5 [facility] [address] [id number] [address] May, [facility] [address]100[place], [place] [id number] May, [facility] [address], [place] [id number] May, Essential hypertension I10 ; Chronic pain syndrome G89.4 ; Pain in left shoulder M25.512 ; High risk medication use Z79.899 ; Chronic obstructive pulmonary disease, unspecified COPD type J44.9 ; S/P coronary artery stent placement Z95.5 ; Personal history of carotid stenosis Z86.79 ; Hyperlipidemia, unspecified hyperlipidemia E78.5 ; Decreased GFR R94.4 and Type 2 diabetes mellitus with diabetic polyneuropathy E11.42 [facility] [address] [place] [address] [id number] May, Hemoglobin decreased R71.0 and Decreased GFR R94.4 [place] [id number] [place] [address] [id number] May, Hemoglobin decreased R71.0 and Decreased GFR R94.4 [address] [place] [address] [id number] May, [address], [place] [id number] May, [address], [place] [id number] Apr, [address] [place] [address] [id number] Apr, Type 2 diabetes mellitus with foot [...] unspecified hyperlipidemia E78.5 and Essential hypertension I10 [facility] [id number] [place] [address] [id number] Apr, [facility] [id number] [place] [address] [id number] Mar, [facility] [id number] [place] [address] [id number] Mar, [place] [id number] [place] [address] Mar, [facility] [id number] [place] [address] [id number] Feb, [facility] [id number] [place] [address] [id number] Feb, [facility] [id number] [place] [address] [id number] Feb, [facility] [id number] [place] [address] [id number] Jan, Type 2 diabetes mellitus with diabetic polyneuropathy E11.42 ; Hypercholesterolemia E78.0 ; Chronic pain syndrome G89.4 ; Pain in left shoulder M25.512 and High risk medication use Z79.899 [facility] [id number] [place] [address] [id number] Jan, [id number] [place] [address] [id number] Jan, [facility] [id number] [place] [address] [id number] December, [facility] [id number] [place] [address] [id number] December, [facility] [id number] [place] [address] December, Diabetes type 2, uncontrolled E11.65 ; Type 2 diabetes mellitus with diabetic neuropathy E11.40 ; Peripheral vascular disease I73.9 ; 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 and 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 [facility] [address] [id number] [place] [id number] Nov, [facility] [address] [id number] [place] [id number] Nov, [facility] [address] [id number] [place] [id number] Nov, [facility] [place] [address] [id number] [place] [id number] Nov, Right hip pain M25.551 [facility] [id number] [place] [address] Nov, [facility] [address] [address] Nov, [facility] [id number] [place] [address] [id number] Nov, Diabetes with neurological manifestations, type II or unspecified type, not stated as uncontrolled 250.60 [facility] [address] [id number] [place] [address] [id number] Nov, [facility] [address] [id number] [place] [address] [id number] Nov, [facility] [id number] [place] [address] [id number] Oct, Diabetes type 2, uncontrolled E11.65 ; Type 2 diabetes mellitus with diabetic neuropathy, unspecified E11.40 and Low back pain M54.5 [facility] [id number] [place] [address] [id number] Oct, [facility] [address] [id number], [place] [id number] Oct, [facility] [address] [id number] [place] [address] [id number] Oct, [facility] [id number] [place] [address] [id number] Sep, [facility] [id number] [place] [address] [id number] Sep, [facility] [id number] [place] [address] Sep, [facility] [id number], [place] [id number] Sep, [facility] [id number] [place] [address] [id number] Sep, [facility] [id number] [place] [address] [id number] Aug, 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 [facility] [id number] [place] [address] [id number] Aug, [facility] [id number] [place] [address] [id number] Aug, Allergic rhinitis due to pollen J30.1 [id number] [place] [address] [id number] Jul, [facility] [id number] [place] [address] [id number] Jul, [facility] [id number] [place] [address] [id number] Jul, [facility] [id number] [place] [address] [id number] Jun, [place] [id number] [place] [address] [id number] Jun, Thumb tendonitis M77.8 and Ringing in ear, bilateral H93.13 [facility] [address] [id number] [id number] Jun, [facility] [address]00565[place] [id number] May, [facility] [id number] [place] [address] May, [facility] [id number] [place] [address] May, Pre-op evaluation Z01.818 ; Encounter for [...] type J44.9 [facility] [id number] [place] [address] May, [facility] [address] [id number] May, [address] [id number] May, Diabetes type 2, uncontrolled E11.65 ; Encounter for immunization Z23 ; Osteopenia M85.80 and Allergic rhinitis due to pollen J30.1 [facility] [id number] [place] [address] [id number] May, Lumbago 724.2 [facility] [id number] [place] [address] [id number] Apr, [facility] [id number] [place] [address] [id number] Apr, [facility] [id number] [place] [address] [id number] Apr, [facility] [id number] [place] [address] [id number] Apr, [facility] [id number] [place] [address] Mar, [facility] [id number] [place] [address] [id number] Mar, [facility] [id number] [place] [address] [id number] Mar, [facility] [id number] [place] [address] [id number] Mar, [facility] [id number] [place] [address] [id number] Mar, [facility] [id number] [place] [id number] Mar, [facility] [address] [id number], [place] [id number] Mar, [facility] [address] [id number] [place] [id number] Mar, Diabetes with neurological manifestations, type II or unspecified type, not stated as uncontrolled 250.60 and Severe obesity (BMI 35.0-35.9 with comorbidity) 278.01 [facility] [address] [id number] [place] [address] [id number] Mar, [facility] [id number] [place] [address] Mar, [facility] [id number] [place] [address] Feb, [facility] [place] [address] [id number] [place] [address] [id number] Feb, [facility] [address] [id number] [place] [address] [id number] Feb, [facility] [address] [id number] [place] [id number] Feb, Diabetes with neurological manifestations, type II or unspecified type, not stated as uncontrolled 250.60 [facility] [address] [id number] [place] [id number] Feb, [facility] [address]00565100[place] [address] Feb, [facility] [address] [id number], [place] [id number] Feb, [facility] [address] [id number] [place] [id number] Feb, Follow up V67.9 ; Diabetes with neurological manifestations, type II or unspecified type, not stated as uncontrolled 250.60 and Congestive heart failure 428.0 [facility] [address] [id number] [place] [id number] Jan, [facility] [address] [id number], [place] [id number] Jan, [facility] [address] [id number], [place] [id number] Jan, [facility] [place] [id number], [place] [id number] December, Otitis media with effusion 381.4 ; Left arm numbness 782.0 and Osteoporosis 733.00 [facility] [address] [id number][place] [id number] December, [facility] [id number], [place] [id number] Nov, [facility] [place] [id number], [place] [id number] Nov, Serous otitis media 381.4 and Lumbago 724.2 [facility] [id number] [place] [address] Nov, [facility] [id number] [place] [address] Nov, [facility] [place] [id number], [place] [id number] Oct, [facility] [id number] [place] [address] Oct, [facility] [id number], [place] [id number] Oct, [facility] [address]00565100[place], [place] [address] Oct, [facility] [id number], [place] [id number] Oct, [facility] [place] [facility] [address]00565100[place], [place] [address] Oct, [facility] [place] [facility] [id number] [place] [address] Sep, [facility] [place] [facility] [address]00565100[place], [place] [address] Sep, [facility] [address] [id number], [place] [id number] Sep, [facility] [place] [facility] [address] [facility] [id number] [place] [address] Sep, [facility] [address] [facility] [id number] [place] [id number] Aug, [facility] [place] [facility] [address] [facility] [id number] [place] [address] Aug, [facility] [address] [facility] [id number], [place] [id number] Aug, [facility] [place] [facility] [address] [facility] [id number], [place] [address] Aug, [facility] [address] [facility] [id number], [place] [id number] Jul, [facility] [place] [facility] [address] [facility] [id number], [place] [address] Jul, [facility] [address] [facility] [id number], [place] [id number] Jul, [facility] [place] [facility] [address] [facility] [id number], [place] [address] Jul, [facility] [address] [facility] [id number], [place] [id number] Jul, [facility] [place] [facility] [address] [facility] [id number], [place] [address] Jul, [facility] [address] [facility] [id number], [place] [id number] Jun, [facility] [place] [facility] [address] [facility] [id number], [place] [address] Jun, [facility] [address] [facility] [id number], [place] [id number] May, [facility] [place] [facility] [address] [facility] [id number], [place] [address] May, [facility] [address] [facility] [id number], [place] [id number] May, [facility] [place] [facility] [address] [facility] [id number], [place] [address] May, [facility] [address] [id number], [place] [id number] May, [facility] [place] [facility] [address] [facility] [id number], [place] [address] May, [facility] [address] [id number], [place] [id number] May, [facility] [address] [facility] [id number], [place] [id number] May, [facility] [place] [facility] [address] [facility] [id number], [place] [address] May, [facility] [place] [facility] [address] [facility] [id number], [place] [address] May, [facility] [address] [facility] [id number], [place] [id number] May, [facility] [place] [facility] [address]00565100[place], [place] [address] May, [facility] [place] [facility] [address]00565100[place], [place] [address] Apr, [facility] [address] [facility] [id number], [place] [id number] Apr, [facility] [place] [facility] [address] [id number], [place] [address] Apr, [facility] [address] [facility] [id number], [place] [id number] Apr, [facility] [address] [facility] [id number], [place] [id number] Apr, [facility] [place] [facility] [address] [facility] [id number], [place] [address] Apr, [facility] [place] [facility] [address] [facility] [id number], [place] [address] Apr, [facility] [address] [facility] [id number], [place] [id number] Apr, [facility] [place] [facility] [address] [facility] [id number], [place] [address] Apr, [facility] [address] [id number] [place] [id number] Apr, [facility] [place] [facility] [address] [facility] [id number] [place] [address] Apr, [facility] [address] [id number] [place] [id number] Apr, [facility] [place] [facility] [address] [facility] [id number] [place] [address] Apr, [facility] [address] [id number] [place] [id number] Apr, [facility] [place] [facility] [address] [facility] [id number] [place] [address] Apr, [facility] [address] [id number] [place] [id number] Apr, [facility] [place] [facility] [address] [facility] [id number], [place] [address] Apr, [facility] [address] [id number] [place] [id number] Apr, [facility] [place] [facility] [address] [facility] [id number], [place] [address] Apr, [facility] [address] [facility] [id number] [place] [id number] Mar, [facility] [place] [facility] [address] [facility] [id number], [place] [address] Mar, [facility] [address] [id number] [place] [id number] Mar, [facility] [address] [id number] [place] [id number] Mar, [facility] [place] [facility] [address] [facility] [id number], [place] [address] Mar, [facility] [place] [facility] [address] [facility] [id number], [place] [address] Mar, [facility] [address] [id number] [place] [id number] Mar, [facility] [place] [facility] [address] [id number] [place] [address] Mar, [facility] [address] [id number] [place] [id number] Mar, [facility] [place] [facility] [address] [facility] [id number] [place] [address] Mar, [facility] [address] [id number] [place] [id number] Mar, [facility] [place] [facility] [address] [id number] [place] [address] Mar, [facility] [address] [id number] [place] [id number] Mar, [facility] [place] [facility] [address] [facility] [id number] [place] [address] Mar, [facility] [address] [id number] [place] [id number] Mar, [facility] [place] [facility] [address] [facility] [id number] [place] [address] Mar, [facility] [address] [id number] [place] [id number] Mar, [facility] [place] [facility] [address] [facility] [id number] [place] [address] Mar, [facility] [address] [id number] [place] [id number] Mar, [facility] [place] [facility] [address] [facility] [id number] [place] [address] Mar, [facility] [address] [id number] [place] [id number] Feb, [facility] [place] [facility] [address] [facility] [id number] [place] [address] Feb, [facility] [address] [id number] [place] [id number] Feb, [facility] [place] [facility] [address] [facility] [id number] [place] [address] Feb, [facility] [address] [id number] [place] [id number] Feb, [facility] [place] [facility] [address] [id number] [place] [address] Feb, [facility] [address] [id number] [place] [id number] Feb, [facility] [place] [facility] [address] [id number] [place] [address] Feb, [facility] [address] [id number] [place] [id number] Feb, [facility] [place] [facility] [address] [facility] [id number] [place] [address] Feb, [facility] [address] [id number] [place] [id number] Feb, [facility] [place] [facility] [address] [facility] [id number] [place] [address] Feb, [facility] [address] [id number] [place] [id number] Feb, [facility] [place] [facility] [address] [facility] [id number], [place] [address] Feb, [facility] [address] [id number] [place] [id number] Feb, [facility] [place] [facility] [address] [facility] [id number], [place] [address] Feb, [facility] [address] [id number] [place] [id number] Feb, [facility] [place] [facility] [address] [id number] [place] [address] Feb, [facility] [address] [id number] [place] [id number] Feb, [facility] [address] [id number] [place] [id number] Feb, [facility] [place] [facility] [address] [facility] [id number], [place] [address] Feb, [facility] [place] [facility] [address] [id number] [place] [address] Feb, [facility] [address] [id number] [place] [id number] Feb, [facility] [place] [facility] [address] [id number] [place] [address] Feb, [facility] [address] [id number] [place] [id number] Feb, [facility] [place] [facility] [address] [id number] [place] [address] Feb, [facility] [address] [id number] [place] [id number] Feb, [facility] [place] [facility] [address] [facility] [id number] [place] [address] Feb, [facility] [address] [facility] [id number] [place] [id number] Jan, [facility] [place] [facility] [address] [id number] [place] [address] Jan, [facility] [place] [facility] [address] [id number] [place] [address] Jan, [facility] [place] [facility] [address] [facility] [id number] [place] [address] Jan, [facility] [place] [facility] [address] [facility] [id number] [place] [address] Jan, [facility] [place] [facility] [address] [id number] [place] [address] Jan, [facility] [address] [id number] [place] [id number] Jan, [facility] [place] [facility] [address] [id number] [place] [address] Jan, [facility] [place] [facility] [address] [id number] [place] [address] Jan, [facility] [place] [facility] [address] [id number] [place] [address] Jan, [facility] [address] [id number] [place] [id number] Jan, [facility] [address] [id number] [place] [id number] Jan, [facility] [place] [facility] [address] [facility] [id number] [place] [address] Jan, [facility] [place] [facility] [address] [id number] [place] [address] Jan, [facility] [address] [id number] [place] [id number] Jan, [facility] [address] [id number] [place] [id number] Jan, [facility] [place] [facility] [address] [facility] [id number] [place] [address] Jan, [facility] [place] [facility] [address] [facility] [id number], [place] [address] Jan, [facility] [place] [facility] [address] [facility] [id number], [place] [address] Jan, [facility] [address] [facility] [id number], [place] [id number] December, [facility] [place] [facility] [address] [facility] [id number] [place] [address] December, [facility] [place] [facility] [address] [facility] [id number], [place] [address] December, [facility] [address] [id number] [place] [id number] December, [facility] [place] [facility] [address] [facility] [id number] [place] [address] December, [facility] [address] [id number] [place] [id number] December, [facility] [place] [facility] [address] [facility] [id number], [place] [address] December, [facility] [address] [id number] [place] [id number] December, [facility] [place] [facility] [address] [facility] [id number], [place] [address] December, [facility] [address] [facility] [id number] [place] [id number] Nov, [facility] [place] [facility] [address] [facility] [id number] [place] [address] Nov, [facility] [address] [facility] [id number][place] [id number] Nov, [facility] [place] [facility] [address] [facility] [id number] [place] [address] Nov, [facility] [place] [facility] [address] [id number], [place] [address] Nov, [facility] [place] [facility] [id number] [place] [address] Nov, [facility] [place] [facility] [id number], [place] [address] Oct, [facility] [address] [facility] [id number][place] [id number] Oct, [facility] [place] [facility] [id number], [place] [address] Oct, [facility] [address] [id number][place] [id number] Oct, [facility] [place] [facility] [address] [facility] [id number], [place] [address] Oct, [facility] [address] [facility] [id number] [place] [id number] Sep, [facility] [place] [facility] [address] [facility] [id number], [place] [address] Sep, [facility] [address] [facility] [id number][place] [id number] Aug, [facility] [place] [facility] [address] [id number], [place] [address] Aug, [facility] [address] [id number] [place] [id number] Aug, [facility] [place] [facility] [address] [facility] [id number], [place] [address] Aug, [facility] [place] [facility] [address] [facility] [id number] [place] [address] Aug, [facility] [address] [id number][place] [id number] Aug, [facility] [place] [facility] [address] [facility] [id number] [place] [address] Aug, [facility] [place] [facility] [address] [facility] [id number], [place] [address] Aug, [facility] [address] [facility] [id number] [place] [id number] Aug, [facility] [place] [facility] [address] [facility] [id number], [place] [address] Aug, [facility] [address] [facility] [id number][place] [id number] Jul, [facility] [place] [facility] [address] [facility] [id number], [place] [address] Jul, [facility] [address] [id number][place] [id number] Jul, [facility] [place] [facility] [address] [facility] [id number], [place] [address] Jul, [facility] [address] [id number][place] [id number] Jul, [facility] [place] [facility] [address] [facility] [id number], [place] [address] Jul, [facility] [address] [facility] [id number][place] [id number] Jul, [facility] [place] [facility] [address] [facility] [id number], [place] [address] Jul, [facility] [address] [id number] [place] [id number] Jun, [facility] [address] [id number], [place] [address] Jun, [facility] [address] [id number] [place] [id number] Jun, [facility] [address] [facility] [id number], [place] [address] Jun, [facility] [address] [facility] [id number], [place] [address] Jun, [facility] [address] [facility] [id number], [place] [address] Jun, [facility] [address] [id number], [place] [id number] Apr, [facility] [address] [id number] [place] [id number] Mar, [facility] [address] [id number], [place] [id number] Mar, [facility] [address] [id number] [place] [id number] Feb, [facility] [address] [id number] [place] [id number] Feb, [facility] [address] [id number] [place] [id number] Feb, [facility] [address] [id number][place] [id number] December, [facility] [address] [id number][place] [id number] December, [facility] [address] [id number], [place] [address] December, [facility] [address] [id number] [place] [id number] December, [facility] [address] [id number] [place] [id number] December, [facility] [address] [id number], [place] [id number] Nov, [facility] [address] [id number] [place] [id number] Nov, [facility] [place] [address] [id number] [place] [id number] Nov, [facility] [place] [address] [id number] [place] [id number] Oct, [facility] [place] [address] [id number] [place] [id number] Sep, [facility] [place] [address] [id number] [place] [id number] Aug, [facility] [address] [id number], [place] [address] Aug, [facility] [place] [address] [id number] [place] [id number] Aug, [facility] [place] [address] [id number] [place] [id number] Jul, [facility] [address] [facility] [id number], [place] [address] Jul, [facility] [place] [address] [id number] [place] [id number] Jul, [facility] [address] [facility] [id number], [place] [address] Jul, [facility] [place] [address] [id number] [place] [id number] Jun, [facility] [address] [facility] [id number], [place] [address] Jun, [facility] [place] [address] [id number][place] [id number] May, [facility] [address] [facility] [id number], [place] [address] May, [facility] [address] [id number][place] [id number] May, [facility] [address] [facility] [id number], [place] [address] May, [facility] [place] [address] [id number] [place] [id number] Apr, [facility] [place] [address] [id number] [place] [id number] Apr, [facility] [place] [address] [id number] [place] [id number] Mar, [facility] [place] [address] [id number] [place] [id number] Mar, [facility] [place] [address] [id number] [place] [id number] Feb, [facility] [place] [address] [id number] [place] [id number] Feb, [facility] [place] [address] [id number] [place] [id number] Jan, [facility] [place] [address] [id number] [place] [id number] Jan, [facility] [place] [address] [id number] [place] [id number] Jan, [facility] [address] [id number] [place] [id number] Jan, [facility] [place] [address] [id number] [place] [id number] December, [facility] [place] [address] [id number] [place] [id number] December, [facility] [address]00565[place], [place] [address] Nov, [facility] [address] [id number] [place] [id number] Nov, [facility] [address] [id number] [place] [id number] Nov, [facility] [place] [address] [id number] [place] [id number] Nov, [facility] [place] [address] [id number] [place] [id number] Nov, [facility] [address]65[address], [place] [address] Oct, [facility] [address] [id number], [place] [address] Oct, [facility] [place] [address] [id number] [place] [id number] Oct, [facility] [place] [address] [id number] [place] [id number] Oct, [facility] [place] [address] [id number] [place] [id number] Oct, [facility] [place] [address] [id number] [place] [id number] Oct, [facility] [place] [address] [id number] [place] [id number] Oct, [facility] [place] [address] [id number] [place] [id number] Oct, [facility] [place] [address] [id number] [place] [id number] Oct, [facility] [address]65[address], [place] [address] Oct, [facility] [place] [address] [id number] [place] [id number] Sep, [facility] [place] [address] [id number] [place] [id number] Sep, [facility] [address] [id number] [place] [id number] Aug, [facility] [place] [address] [id number] [place] [id number] Aug, [facility] [address]65[address], [place] [address] Jul, [facility] [address]65[address], [place] [address] Jul, [facility] [id number] [place] [address] Jul, [facility] [id number] [place] [address] Jul, [facility] [id number] [place] [address] Jul, [facility] [address] [id number], [place] [address] Jul, [facility] [address]65[address], [place] [address] Jul, [facility] [address]65[address], [place] [address] Jul, [facility] [id number] [place] [address] Jul, [facility] [address]65[address], [place] [address] Jul, [facility] [id number] [place] [address] Jul, [facility] [id number] [place] [address] Jul, [facility] [address]65[address], [place] [address] Jul, [facility] [address] [id number], [place] [address] Jul, IMMUNIZATIONS No Known Immunizations SOCIAL HISTORY [...] the future. Medical History 05/26/17 noted, senior care has ended and they feel he is [...] Surgical History Left eye retinal eye repair ([facility]) 06/2014 Surgical History amputation, toe-right third toe ([facility]) 2013 Surgical History Right eye retinal eye repair ([facility]) 09/2014 Surgical History heart [...]
--- OUTSIDE RECORDS SUMMARY | 2019-04-03 06:26 | XMS REPORT ---
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 Active 641943928 Problem 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 Active 165822832 Problem Type 2 diabetes mellitus with diabetic polyneuropathy E11.42 Active 213615759 Problem Hypercholesterolemia E78.0 Active 24128577 Problem Fatigue, unspecified type R53.83 Active 96858005 Problem Personal history of carotid stenosis Z86.79 Active 528466229 Problem Uses walker Z99.89 Active 858715023 Problem Type 2 diabetes mellitus with diabetic neuropathy E11.40 Active 27182912 Problem Aphasia R47.01 Active 38931498 Problem S/P coronary artery stent placement Z95.5 Active 973755279 Problem Type 2 diabetes mellitus with diabetic retinopathy, macular edema presence unspecified, with unspecified retinopathy severity E11.319 Active 44585930 Problem Osteomyelitis of right foot, unspecified chronicity M86.9 Active 23551841 Problem CKD (chronic kidney disease), stage 3 (moderate) N18.3 Active 529465119 Problem Essential hypertension I10 Active 41888179 Problem GERD without esophagitis K21.9 Active 302935899 Problem Insulin long-term use Z79.4 Active 054756711 Problem CKD (chronic kidney disease) stage 3, GFR 30-59 ml/min N18.3 Active 209908376 Problem Type 2 diabetes mellitus with diabetic peripheral angiopathy without gangrene E11.51 Active 779184386 Problem Chronic kidney disease, unspecified N18.9 Active 288539815 Problem Coronary artery disease involving [place] coronary artery of [place]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 Active 0758124310937 Problem Mixed hyperlipidemia E78.2 Active 269244375 Problem Hyperlipidemia, unspecified hyperlipidemia E78.5 Active 35886501 Problem Obesity (BMI 30.0-34.9) E66.9 Active 615705587052065 Problem Chronic obstructive pulmonary disease, unspecified COPD type J44.9 Active 37780894 Problem Frequent falls R29.6 Active 303676969 Problem Peripheral vascular disease I73.9 Active 825531010 Problem Chronic diarrhea K52.9 Active 790940641 Problem Other chronic pain G89.29 Active 20024364 Problem Full incontinence of feces R15.9 Active 429928585421202 Problem Major depressive disorder, single episode, mild F32.0 Active 30346066 Problem Pain in left shoulder M25.512 Active 00966394 Problem Ulcer of left foot, unspecified ulcer stage L97.529 Active 11590358 Problem Chronic pain syndrome G89.4 Active 550079559 Problem Diabetes type 2, uncontrolled E11.65 Active 814469283 Problem High risk medication use Z79.899 Active 510556518 Problem Fecal urgency R15.2 Active 18932344 Problem Functional diarrhea K59.1 Active 79572234 Problem Type 2 diabetes mellitus with foot ulcer E11.621 Active 557198590 Problem Mixed stress and urge urinary incontinence N39.46 Active 007027392 Problem Chronic fatigue R53.82 Active 11458820 ALLERGIES No Information ENCOUNTERS Encounter Location Date Diagnosis [facility] [id number] [place] [address] [id number] Jan, Type 2 diabetes mellitus with diabetic neuropathy E11.40 [id number] [place] [address] [id number] December, Bilateral low back pain without sciatica M54.5 [facility] [id number] [place] [address] [id number] Nov, Bilateral low back pain without sciatica M54.5 [address] [place] [address] [id number] Oct, Bilateral low back pain without sciatica M54.5 [id number] [id number] Oct, [facility] [id number] [place] [phone] Oct, [facility] [id number] [place] [address] [id number] Sep, Other chronic pain G89.29 and Diabetes type 2, uncontrolled E11.65 [facility] [address] [id number] [place] [id number] Sep, Type 2 diabetes mellitus with diabetic neuropathy E11.40 ; Atherosclerosis of [place] artery of both lower extremities, with unspecified presence of clinical manifestation I70.203 and Ulcer of left foot, unspecified ulcer stage L97.529 [facility] [id number] [place] [address] [id number] Sep, Bilateral low back pain without sciatica M54.5 [facility] [id number] [place] [address] [id number] Aug, Bilateral low back pain without sciatica M54.5 [facility] [id number] [place] [address] [id number] Aug, [facility] [id number] [place] [address] [id number] Aug, Essential hypertension I10 [facility] [id number] [place] [address] [id number] Aug, [facility] [address] [id number] [place] [address] [id number] Jul, [facility] [id number] [place] [address] [id number] Jul, Bilateral low back pain without sciatica M54.5 [facility] [id number] [place] [address] [id number] Jul, Hyperlipidemia, unspecified hyperlipidemia E78.5 [facility] [id number] [place] [address] [id number] Jul, [facility] [address] [id number] [place] [address] [id number] Jul, Type 2 diabetes mellitus with diabetic neuropathy E11.40 [facility] [id number] [place] [address] [id number] Jun, [facility] [address] [id number] Jun, Bilateral low back pain without sciatica M54.5 [facility] [id number], [place] [id number] 14 Jun, 2018 Chronic fatigue R53.82 [facility] [id number], [place] [id number] Jun, Type 2 diabetes mellitus with diabetic polyneuropathy E11.42 and Bilateral low back pain without sciatica M54.5 [facility] [id number], [place] [id number] May, Other chronic pain G89.29 [facility] [id number], [place] [id number] May, Diabetes type 2, uncontrolled E11.65 [facility] [address] [address] 16 May, 2018 Type 2 diabetes mellitus with diabetic neuropathy E11.40 ; Coronary artery disease involving [place] coronary artery of [place]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 and Major depressive disorder, single episode, mild F32.0 [facility] [address] [facility] [id number] [id number] May, [facility] [id number], [place] [id number] May, [facility] [id number], [place] [id number] May, [facility] [id number], [place] [id number] Apr, Other chronic pain G89.29 [facility] [address] [id number] [id number] 05 Apr, 2018 [facility] [address] [facility] [id number], [place] [id number] Apr, Essential hypertension I10 [facility] [id number], [place] [id number] Mar, Other chronic pain G89.29 [facility] [address] [id number], [place] [id number] Mar, [facility] [id number] [place] [address] [id number] Feb, Other chronic pain G89.29 [facility] [id number] [place] [address] [id number] Feb, Diabetes type 2, uncontrolled E11.65 ; Type 2 diabetes mellitus with diabetic retinopathy, macular edema presence unspecified, with unspecified retinopathy severity E11.319 and Bilateral low back pain without sciatica M54.5 [facility] [id number] [place] [address] [id number] Feb, [facility] [id number] [place] [address] [id number] Feb, Diabetes type 2, uncontrolled E11.65 [facility] [id number] [place] [address] [id number] Feb, Other chronic pain G89.29 [facility] [id number] [place] [address] [id number] Jan, [facility] [id number] [place] [address] [id number] Jan, [facility] [id number] [place] [address] [id number] Jan, [facility] [id number] [place] [address] [id number] Jan, Other chronic pain G89.29 [facility] [id number] [place] [address] [id number] December, Mixed stress and urge urinary incontinence N39.46 [facility] [id number] [place] [address] [id number] December, Chronic fatigue R53.82 [facility] [id number] [place] [address] [id number] December, Other chronic pain G89.29 [facility] [id number] [place] [address] [id number] December, Diabetes type 2, uncontrolled E11.65 ; [...] pain G89.29 [facility] [address]00565100[place] [address] December, [id number] [place] [address] [id number] December, Medicare annual wellness visit, subsequent Z00.00 ; Type 2 diabetes mellitus with diabetic 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 ; Chronic obstructive pulmonary disease, unspecified COPD type J44.9 ; Depression F32.9 ; Peripheral vascular disease I73.9 ; Coronary artery disease involving [place] coronary artery of [place]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 ; Hypercholesterolemia E78.0 ; GERD without esophagitis K21.9 and Chronic kidney disease, unspecified N18.9 [id number] [place] [address] [id number] December, Mixed stress and urge urinary incontinence N39.46 ; Full incontinence of feces R15.9 ; Fecal urgency R15.2 ; Functional diarrhea K59.1 and Type 2 diabetes mellitus with diabetic neuropathy E11.40 [id number] [place] [address] [id number] Nov, Other chronic pain G89.29 [address] [place] [address] [id number] Oct, [id number] [place] [address] [id number] Oct, [id number] [place] [address] [id number] Oct, Other chronic pain G89.29 [id number] [place] [address] [id number] Sep, Other chronic pain G89.29 [id number] [place] [address] [id number] Aug, CKD (chronic kidney disease), stage 3 (moderate) N18.3 ; Anemia, unspecified type D64.9 and Dilated pore of Ly L70.8 [facility] [id number] [place] [address] [id number] Aug, Other chronic pain G89.29 ; Pain in left shoulder M25.512 ; High risk medication use Z79.899 ; Uses walker Z99.89 ; Diabetes type 2, uncontrolled E11.65 and Depression F32.9 [facility] [id number] [place] [address] [id number] Aug, Chronic diarrhea K52.9 [place] [id number] [place] [address] [id number] Aug, Chronic diarrhea K52.9 ; Type 2 diabetes mellitus with diabetic neuropathy E11.40 ; Diabetes type 2, uncontrolled E11.65 ; Insulin long-term use Z79.4 ; Chronic obstructive pulmonary disease, unspecified COPD type J44.9 ; Chronic pain syndrome G89.4 ; Pain in left shoulder M25.512 ; Uses walker Z99.89 ; S/P coronary artery stent placement Z95.5 ; Mixed hyperlipidemia E78.2 and Essential hypertension I10 [place] [id number] [place] [address] [id number] Aug, [place] [id number] [place] [address] [id number] Jul, Diabetes type 2, uncontrolled E11.65 [place] [id number] [place] [address] [id number] Jul, Diabetes type 2, uncontrolled E11.65 ; Type 2 diabetes mellitus with diabetic neuropathy E11.40 ; Insulin long-term use Z79.4 and Chronic obstructive pulmonary disease, unspecified COPD type J44.9 [address] [place] [address] [id number] Jun, [id number] [place] [address] [id number] Jun, Essential hypertension I10 [id number] [place] [address] [id number] Jun, Essential hypertension I10 [id number] [place] [address] [id number] Jun, Type 2 diabetes mellitus with diabetic neuropathy E11.40 ; Type 2 diabetes mellitus with diabetic 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 ; S/P coronary artery stent placement Z95.5 ; Obesity (BMI 30.0-34.9) E66.9 ; Mixed hyperlipidemia E78.2 ; Frequent falls R29.6 ; Chronic obstructive pulmonary disease, unspecified COPD type J44.9 ; Essential hypertension I10 ; Insulin long-term use Z79.4 and High risk medication use Z79.899 [address] [place] [address] [id number] May, Diarrhea, unspecified type R19.7 ; Type 2 diabetes mellitus with diabetic neuropathy E11.40 ; Chronic obstructive pulmonary disease, unspecified COPD type J44.9 ; S/P coronary artery stent placement Z95.5 ; High risk medication use Z79.899 ; Essential hypertension I10 ; Encounter for administration of vaccine Z23 and Encounter for immunization Z23 [address] [id number] [id number] May, Chronic obstructive pulmonary disease, unspecified COPD type J44.[id number] [place] [address] [id number] May, Type 2 diabetes mellitus with diabetic 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 ; Encounter for immunization Z23 ; Needs flu shot Z23 ; Comprehensive diabetic foot examination, type 2 DM, encounter for E11.9 and Obesity (BMI 30.0-34.9) E66.9 [address] [place] [address] [id number] May, [address] [place] [address] [id number] Apr, [address] [place] [address] [id number] Apr, Essential hypertension I10 and Aphasia R47.[address] [place] [address] [id number] Apr, [address] [place] [address] [id number] Apr, Type 2 diabetes mellitus with diabetic [...] [facility] [id number] [place] [address] [id number] Mar, [facility] [address] [id number] Mar, Type 2 diabetes mellitus with diabetic polyneuropathy E11.42 ; Leg wound, left, initial encounter S81.802A ; Hx of shoulder surgery Z98.890 ; Acute pain of left shoulder M25.512 and Fall, initial encounter W19.XXXA [facility] [address] [id number] Feb, Follow-up exam Z09 ; Hx of shoulder surgery Z98.890 ; Acute pain of left shoulder M25.512 ; Essential hypertension I10 and Leg wound, left, initial encounter S81.802A [facility] [id number] [place] [address] [id number] Feb, [facility] [address] [id number] Feb, [facility] [id number] [place] [address] [id number] Feb, Chronic obstructive pulmonary disease, unspecified COPD type J44.9 [facility] [id number] [place] [address] [id number] Feb, [facility] [id number] [place] [address] [id number] Jan, Generalized weakness R53.1 ; Exertional shortness of breath R06.02 and Fungal rash of trunk B36.9 [facility] [id number] [place] [address] [id number] Jan, [facility] [id number] [place] [address] [id number] Jan, [facility] [address] [id number] Jan, [place] [facility] [id number] [id number] Jan, [address] [place] [address] [id number] December, High risk medication use Z79.899 [id number] [id number] December, Type 2 diabetes mellitus with diabetic neuropathy E11.40 [address]65[address], [place] [id number] December, High risk medication use Z79.899 [address]65100[place] [id number] Nov, Diabetes type 2, uncontrolled E11.65 [address] [place] [address] [id number] Nov, Medicare annual wellness visit, initial Z00.00 ; Bilateral low back pain without sciatica M54.5 ; Pain in left shoulder M25.512 ; Chronic pain syndrome G89.4 ; Type 2 diabetes mellitus with diabetic polyneuropathy E11.42 ; High risk medication use Z79.899 and Encounter for immunization Z23 [address]65[address] [id number] Nov, Type 2 diabetes mellitus with diabetic neuropathy E11.40 ; Coronary artery disease involving [place] coronary artery of [place]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 and CKD (chronic kidney disease), stage 3 (moderate) N18.[address] [id number], [place] [id number] Oct, Type 2 diabetes mellitus with diabetic 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 ; Chronic pain syndrome G89.4 ; Chronic obstructive pulmonary disease, unspecified COPD type J44.9 ; Chronic kidney disease, unspecified N18.9 and Rash R21 [address] [id number], [place] [id number] Oct, Type 2 diabetes mellitus with diabetic neuropathy E11.[address] [id number], [place] [id number] Oct, Rash R21 and Impetigo L01.00 [facility] [id number], [place] [id number] Oct, Chronic pain syndrome G89.4 [facility] [id number] [place] [address] [id number] Oct, [facility] [id number] [place] [address] [id number] Sep, Sebaceous cyst L72.3 [facility] [address] [place] [address] [id number] Sep, Sebaceous cyst L72.3 [facility] [id number] [place] [address] [id number] Sep, Chronic pain syndrome G89.4 ; Pain in left shoulder M25.512 and Effusion of olecranon bursa, left M25.422 [facility] [address]00565100[place] [address] Aug, [facility] [address] [place] [address] [id number] Aug, [address] [id number] [place] [address] [id number] Aug, Mixed hyperlipidemia E78.2 and Chronic kidney disease, unspecified N18.9 [address] [place] [address] [id number] Jul, Type 2 diabetes mellitus with diabetic neuropathy E11.40 ; Essential hypertension I10 and S/P coronary artery stent placement Z95.5 [facility] [address]00565100[place], [place] [id number] Jul, 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 [address], [place] [id number] Jul, Diabetes type 2, uncontrolled E11.65 ; Essential hypertension I10 and 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 [address]00565100[place], [place] [id number] Jul, [address] [place] [address] [id number] Jul, [id number] [id number] Jul, [address] [place] [address] [id number] Jul, Chronic obstructive pulmonary disease, unspecified COPD type J44.9 [address] [place] [address] [id number] Jun, CKD (chronic kidney disease), stage 3 (moderate) N18.3 and Anemia, unspecified type D64.9 [address] [place] [address] [id number] Jun, Type 2 diabetes mellitus with diabetic neuropathy E11.40 ; Decreased GFR R94.4 ; CKD (chronic kidney disease), stage 3 (moderate) N18.3 and Decreased hemoglobin R71.0 [id number] [place] [address] [id number] Jun, CKD (chronic kidney disease), stage 3 (moderate) N18.3 and Anemia, unspecified type D64.9 [address] [place] [address] [id number] Jun, Type 2 diabetes mellitus with diabetic neuropathy E11.40 ; Decreased GFR R94.4 and CKD (chronic kidney disease), stage 3 (moderate) N18.3 [address] [place] [address] [id number] Jun, Type 2 diabetes mellitus with diabetic neuropathy E11.40 and Essential hypertension I10 [address] [place] [address] [id number] Jun, [id number] [place] [address] [id number] Jun, [address] [place] [address] [id number] Jun, Type 2 diabetes mellitus with diabetic neuropathy E11.40 ; S/P coronary artery stent placement Z95.5 ; Chronic obstructive pulmonary disease, unspecified COPD type J44.9 ; Essential hypertension I10 ; GERD without esophagitis K21.9 ; Peripheral vascular disease I73.9 ; Mixed hyperlipidemia E78.2 and Hospital discharge follow-up Z09 [id number] [id number] Jun, [facility] [address] [id number] [id number] May, Depression F32.9 and Hyperlipidemia, unspecified hyperlipidemia E78.5 [facility] [id number] [address] May, [facility] [address]00565100[place], [place] [id number] May, [facility] [address], [place] [id number] May, Essential hypertension I10 ; Chronic pain [...] [facility] [address] [place] [address] [id number] May, Hemoglobin decreased R71.0 and Decreased GFR R94.4 [id number] [place] [address] [id number] May, Hemoglobin decreased R71.0 and Decreased GFR R94.4 [address] [place] [address] [id number] May, [address], [place] [id number] May, [address]65100[place], [place] [id number] Apr, [address] [place] [address] [id number] Apr, Type 2 diabetes mellitus with foot [...] unspecified hyperlipidemia E78.5 and Essential hypertension I10 [facility] [id number] [place] [address] [id number] Apr, [facility] [id number] [place] [address] [id number] Mar, [facility] [address] [place] [address] [id number] Mar, [place] [id number] [place] [phone] Mar, [facility] [id number] [place] [address] [id number] Feb, [facility] [address] [place] [address] [id number] Feb, [facility] [id number] [place] [address] [id number] Feb, [facility] [address] [place] [address] [id number] Jan, Type 2 diabetes mellitus with diabetic polyneuropathy E11.42 ; Hypercholesterolemia E78.0 ; Chronic pain syndrome G89.4 ; Pain in left shoulder M25.512 and High risk medication use Z79.899 [facility] [id number] [place] [address] [id number] Jan, [id number] [place] [address] [id number] Jan, [facility] [id number] [place] [address] [id number] December, [facility] [address] [place] [address] [id number] December, [facility] [id number] [place] [id number] December, Diabetes type 2, uncontrolled E11.65 ; Type 2 diabetes mellitus with diabetic neuropathy E11.40 ; Peripheral vascular disease I73.9 ; 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 and 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 [facility] [address] [address] [id number] [place] [id number] Nov, [facility] [address] [id number] [place] [id number] Nov, [facility] [address] [id number] [place] [id number] Nov, [facility] [address] [id number] [place] [id number] Nov, Right hip pain M25.551 [facility] [id number] [place] [address] Nov, [facility] [address] [address] Nov, [facility] [id number] [place] [address] [id number] Nov, Diabetes with neurological manifestations, type II or unspecified type, not stated as uncontrolled 250.60 [facility] [address] [id number] [place] [address] [id number] Nov, [facility] [address] [id number] [place] [address] [id number] Nov, [facility] [address] [id number] [place] [address] [id number] Oct, Diabetes type 2, uncontrolled E11.65 ; Type 2 diabetes mellitus with diabetic neuropathy, unspecified E11.40 and Low back pain M54.5 [facility] [address] [id number] [place] [address] [id number] Oct, [facility] [address] [id number], [place] [id number] Oct, [facility] [address] [id number] [place] [address] [id number] Oct, [facility] [address] [id number] [place] [address] [id number] Sep, [facility] [id number] [place] [address] [id number] Sep, [facility] [id number] [place] [address] Sep, [facility] [id number][place] [id number] Sep, [facility] [id number] [place] [address] [id number] Sep, [facility] [id number] [place] [address] [id number] Aug, 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 [facility] [id number] [place] [address] [id number] Aug, [facility] [id number] [place] [address] [id number] Aug, Allergic rhinitis due to pollen J30.1 [id number] [place] [address] [id number] Jul, [facility] [id number] [place] [address] [id number] Jul, [facility] [id number] [place] [address] [id number] Jul, [facility] [id number] [place] [address] [id number] Jun, [address] [id number] [place] [address] [phone] Jun, Thumb tendonitis M77.8 and Ringing in ear, bilateral H93.13 [facility] [address] [id number] [id number] Jun, [facility] [address]00565[address] [id number] May, [facility] [id number] [place] [address] May, [facility] [id number] [place] [address] May, Pre-op evaluation Z01.818 ; Encounter for immunization Z23 ; Type 2 diabetes mellitus with diabetic peripheral angiopathy without gangrene E11.51 ; Insulin long-term use Z79.4 ; Type 2 diabetes mellitus with foot ulcer E11.621 ; Peripheral vascular disease I73.9 ; Coronary artery disease involving [place] coronary artery of [place]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 ; S/P coronary artery stent placement Z95.5 ; Osteomyelitis of right foot, unspecified chronicity M86.9 and Chronic obstructive pulmonary disease, unspecified COPD type J44.9 [facility] [id number] [place] [address] May, [facility] [address] [id number] May, [address] [id number] May, Diabetes type 2, uncontrolled E11.65 ; Encounter for immunization Z23 ; Osteopenia M85.80 and Allergic rhinitis due to pollen J30.1 [facility] [id number] [place] [address] [id number] May, Lumbago 724.2 [facility] [id number] [place] [address] [id number] Apr, [facility] [id number] [place] [address] [id number] Apr, [facility] [id number] [place] [address] [id number] Apr, [facility] [id number] [place] [address] [id number] Apr, [facility] [id number] [place] [phone] Mar, [facility] [id number] [place] [address] [id number] Mar, [facility] [id number] [place] [address] [id number] Mar, [facility] [id number] [place] [address] [id number] Mar, [facility] [id number] [place] [address] [id number] Mar, [facility] [id number] [place] [phone] Mar, [facility] [address] [id number], [place] [id number] Mar, [facility] [address] [id number] [place] [id number] Mar, Diabetes with neurological manifestations, type II or unspecified type, not stated as uncontrolled 250.60 and Severe obesity (BMI 35.0-35.9 with comorbidity) 278.01 [facility] [address] [id number] [place] [address] [id number] Mar, [facility] [id number] [place] [phone] Mar, [facility] [id number] [place] [phone] Feb, [facility] [address] [id number] [place] [address] [id number] Feb, [facility] [address] [id number] [place] [address] [id number] Feb, [facility] [address] [id number] [place] [id number] Feb, Diabetes with neurological manifestations, type II or unspecified type, not stated as uncontrolled 250.60 [facility] [address] [id number] [place] [id number] Feb, [facility] [address]00565100[place] [address] Feb, [facility] [address] [id number], [place] [id number] Feb, [facility] [address] [id number] [place] [id number] Feb, Follow up V67.9 ; Diabetes with neurological manifestations, type II or unspecified type, not stated as uncontrolled 250.60 and Congestive heart failure 428.0 [facility] [address] [id number] [place] [id number] Jan, [facility] [address] [id number], [place] [id number] Jan, [facility] [address] [id number], [place] [id number] Jan, [facility] [id number], [place] [id number] December, Otitis media with effusion 381.4 ; Left arm numbness 782.0 and Osteoporosis 733.00 [facility] [address] [id number], [place] [id number] December, [facility] [id number], [place] [id number] Nov, [facility] [id number], [place] [id number] Nov, Serous otitis media 381.4 and Lumbago 724.2 [facility] [id number] [place] [address] Nov, [facility] [id number] [place] [address] Nov, [facility] [id number], [place] [id number] Oct, [facility] [id number] [place] [id number] Oct, [facility] [id number], [place] [id number] Oct, [facility] [address]00565100[place] [address] Oct, [facility] [id number], [place] [id number] Oct, [facility] [place] [facility] [address]00565100[place] [address] Oct, [facility] [place] [facility] [id number] [place] [address] Sep, [facility] [place] [facility] [address]00565100[place] [address] Sep, [facility] [address] [id number], [place] [id number] Sep, [facility] [place] [facility] [address] [facility] [id number] [place] [address] Sep, [facility] [address] [facility] [id number] [place] [id number] Aug, [facility] [place] [facility] [address] [facility] [id number] [place] [address] Aug, [facility] [address] [facility] [id number], [place] [id number] Aug, [facility] [place] [facility] [address] [facility] [id number] [address] Aug, [facility] [address] [facility] [id number], [place] [id number] Jul, [facility] [place] [facility] [address] [facility] [id number] [place] [address] Jul, [facility] [address] [facility] [id number], [place] [id number] Jul, [facility] [place] [facility] [address] [facility] [id number] [place] [address] Jul, [facility] [address] [facility] [id number], [place] [id number] Jul, [facility] [place] [facility] [address] [facility] [id number] [place] [address] Jul, [facility] [address] [facility] [id number], [place] [id number] Jun, [facility] [place] [facility] [address] [facility] [id number] [place] [address] Jun, [facility] [address] [facility] [id number], [place] [id number] May, [facility] [place] [facility] [address] [facility] [id number] [place] [address] May, [facility] [address] [facility] [id number], [place] [id number] May, [facility] [place] [facility] [address] [facility] [id number] [place] [address] May, [facility] [address] [id number], [place] [id number] May, [facility] [place] [facility] [address] [facility] [id number] [place] [address] May, [facility] [address] [id number], [place] [id number] May, [facility] [address] [facility] [id number], [place] [id number] May, [facility] [place] [facility] [address] [facility] [id number] [place] [address] May, [facility] [place] [facility] [address] [facility] [id number] [place] [address] May, [facility] [address] [facility] [id number], [place] [id number] May, [facility] [place] [facility] [address]00565100[place] [address] May, [facility] [place] [facility] [address]00565100[place] [address] Apr, [facility] [address] [facility] [id number], [place] [id number] Apr, [facility] [place] [facility] [address] [id number] [address] Apr, [facility] [address] [facility] [id number], [place] [id number] Apr, [facility] [address] [facility] [id number], [place] [id number] Apr, [facility] [place] [facility] [address] [facility] [id number] [place] [address] Apr, [facility] [place] [facility] [address] [facility] [id number] [place] [address] Apr, [facility] [address] [facility] [id number], [place] [id number] Apr, [facility] [place] [facility] [address] [facility] [id number] [place] [address] Apr, [facility] [address] [id number] [place] [id number] Apr, [facility] [place] [facility] [address] [facility] [id number] [place] [address] Apr, [facility] [address] [id number] [place] [id number] Apr, [facility] [place] [facility] [address] [facility] [id number] [place] [address] Apr, [facility] [address] [id number] [place] [id number] Apr, [facility] [place] [facility] [address] [facility] [id number] [place] [address] Apr, [facility] [address] [id number] [place] [id number] Apr, [facility] [place] [facility] [address] [facility] [id number] [place] [address] Apr, [facility] [address] [id number] [place] [id number] Apr, [facility] [place] [facility] [address] [facility] [id number] [place] [address] Apr, [facility] [address] [facility] [id number] [place] [id number] Mar, [facility] [place] [facility] [address] [facility] [id number] [place] [address] Mar, [facility] [address] [id number] [place] [id number] Mar, [facility] [address] [id number] [place] [id number] Mar, [facility] [place] [facility] [address] [facility] [id number] [place] [address] Mar, [facility] [place] [facility] [address] [facility] [id number] [place] [address] Mar, [facility] [address] [id number] [place] [id number] Mar, [facility] [place] [facility] [address] [id number] [place] [address] Mar, [facility] [address] [id number] [place] [id number] Mar, [facility] [place] [facility] [address] [facility] [id number] [place] [address] Mar, [facility] [address] [id number] [place] [id number] Mar, [facility] [place] [facility] [address] [id number] [place] [address] Mar, [facility] [address] [id number] [place] [id number] Mar, [facility] [place] [facility] [address] [facility] [id number] [place] [address] Mar, [facility] [address] [id number] [place] [id number] Mar, [facility] [place] [facility] [address] [facility] [id number] [place] [address] Mar, [facility] [address] [id number] [place] 635751525 Mar, [facility] [place] [facility] [address] [facility] [id number] [place] [address] Mar, [facility] [address] [id number] [place] [id number] Mar, [facility] [place] [facility] [address] [facility] [id number] [place] [address] Mar, [facility] [address] [id number] [place] [id number] Feb, [facility] [place] [facility] [address] [facility] [id number] [place] [address] Feb, [facility] [address] [id number] [place] [id number] Feb, [facility] [place] [facility] [address] [facility] [id number] [place] [address] Feb, [facility] [address] [id number] [place] [id number] Feb, [facility] [place] [facility] [address] [id number] [place] [address] Feb, [facility] [address] [id number] [place] [id number] Feb, [facility] [place] [facility] [address] [id number] [place] [address] Feb, [facility] [address] [id number] [place] [id number] Feb, [facility] [place] [facility] [address] [facility] [id number] [place] [address] Feb, [facility] [address] [id number] [place] [id number] Feb, [facility] [place] [facility] [address] [facility] [id number] [place] [address] Feb, [facility] [address] [id number] [place] [id number] Feb, [facility] [place] [facility] [address] [facility] [id number] [place] [address] Feb, [facility] [address] [id number] [place] [id number] Feb, [facility] [place] [facility] [address] [facility] [id number] [place] [address] Feb, [facility] [address] [id number] [place] [id number] Feb, [facility] [place] [facility] [address] [id number] [place] [address] Feb, [facility] [address] [id number] [place] [id number] Feb, [facility] [address] [id number] [place] 638800791 Feb, [facility] [place] [facility] [address] [facility] [id number] [address] Feb, [facility] [place] [facility] [address] [id number] [place] [address] Feb, [facility] [address] [id number] [place] [id number] Feb, [facility] [place] [facility] [address] [id number] [place] [address] Feb, [facility] [address] [id number] [place] [id number] Feb, [facility] [place] [facility] [address] [id number] [place] [address] Feb, [facility] [address] [id number] [place] [id number] Feb, [facility] [place] [facility] [address] [facility] [id number] [place] [address] Feb, [facility] [address] [facility] [id number] [place] [id number] Jan, [facility] [place] [facility] [address] [id number] [place] [address] Jan, [facility] [place] [facility] [address] [id number] [place] [address] Jan, [facility] [place] [facility] [address] [facility] [id number] [place] [address] Jan, [facility] [place] [facility] [address] [facility] [id number] [place] [address] Jan, [facility] [place] [facility] [address] [id number] [place] [address] Jan, [facility] [address] [id number] [place] [id number] Jan, [facility] [place] [facility] [address] [id number] [place] [address] Jan, [facility] [place] [facility] [address] [id number] [place] [address] Jan, [facility] [place] [facility] [address] [id number] [place] [address] Jan, [facility] [address] [id number] [place] [id number] Jan, [facility] [address] [id number] [place] [id number] Jan, [facility] [place] [facility] [address] [facility] [id number] [place] [address] Jan, [facility] [place] [facility] [address] [id number] [place] [address] Jan, [facility] [address] [id number] [place] [id number] Jan, [facility] [address] [id number] [place] [id number] Jan, [facility] [place] [facility] [address] [facility] [id number] [place] [address] Jan, [facility] [place] [facility] [address] [facility] [id number] [place] [address] Jan, [facility] [place] [facility] [address] [facility] [id number] [place] [address] Jan, [facility] [address] [facility] [id number], [place] [id number] December, [facility] [place] [facility] [address] [facility] [id number] [place] [address] December, [facility] [place] [facility] [address] [facility] [id number] [place] [address] December, [facility] [address] [id number] [place] [id number] December, [facility] [place] [facility] [address] [facility] [id number] [place] [address] December, [facility] [address] [id number] [place] [id number] December, [facility] [place] [facility] [address] [facility] [id number] [place] [address] December, [facility] [address] [id number] [place] [id number] December, [facility] [place] [facility] [address] [facility] [id number] [place] [address] December, [facility] [address] [facility] [id number] [place] [id number] Nov, [facility] [place] [facility] [address] [facility] [id number] [place] [address] Nov, [facility] [address] [facility] [id number][place] [id number] Nov, [facility] [place] [facility] [address] [facility] [id number] [place] [address] Nov, [facility] [place] [facility] [address] [id number] [address] Nov, [facility] [place] [facility] [id number] [place] [address] Nov, [facility] [place] [facility] [id number] [address] Oct, [facility] [address] [facility] [id number][place] [id number] Oct, [facility] [place] [facility] [id number] [address] Oct, [facility] [address] [id number][place] [id number] Oct, [facility] [place] [facility] [address] [facility] [id number] [place] [address] Oct, [facility] [address] [facility] [id number] [place] [id number] Sep, [facility] [place] [facility] [address] [facility] [id number] [place] [address] Sep, [facility] [address] [facility] [id number][place] [id number] Aug, [facility] [place] [facility] [address] [id number] [address] Aug, [facility] [address] [id number] [place] [id number] Aug, [facility] [place] [facility] [address] [facility] [id number] [place] [address] Aug, [facility] [place] [facility] [address] [facility] [id number] [place] [address] Aug, [facility] [address] [id number][place] [id number] Aug, [facility] [place] [facility] [address] [facility] [id number] [place] [address] Aug, [facility] [place] [facility] [address] [facility] [id number] [place] [address] Aug, [facility] [address] [facility] [id number] [place] [id number] Aug, [facility] [place] [facility] [address] [facility] [id number] [place] [address] Aug, [facility] [address] [facility] [id number][place] [id number] Jul, [facility] [place] [facility] [address] [facility] [id number] [place] [address] Jul, [facility] [address] [id number][place] [id number] Jul, [facility] [place] [facility] [address] [facility] [id number] [place] [address] Jul, [facility] [address] [id number][place] [id number] Jul, [facility] [place] [facility] [address] [facility] [id number] [place] [address] Jul, [facility] [address] [facility] [id number][place] [id number] Jul, [facility] [place] [facility] [address] [facility] [id number] [place] [address] Jul, [facility] [address] [id number] [place] [id number] Jun, [facility] [address] [id number] [place] [address] Jun, [facility] [address] [id number] [place] [id number] Jun, [facility] [address] [facility] [id number] [place] [address] Jun, [facility] [address] [facility] [id number] [place] [address] Jun, [facility] [address] [facility] [id number] [place] [address] Jun, [facility] [address] [id number][place] [id number] Apr, [facility] [address] [id number] [place] [id number] Mar, [facility] [address] [id number][place] [id number] Mar, [facility] [address] [id number] [place] [id number] Feb, [facility] [address] [id number] [place] [id number] Feb, [facility] [address] [id number] [place] [id number] Feb, [facility] [address] [id number][place] [id number] December, [facility] [address] [id number][place] [id number] December, [facility] [address] [id number] [address] December, [facility] [address] [id number] [place] [id number] December, [facility] [address] [id number] [place] [id number] December, [facility] [address] [id number][place] [id number] Nov, [facility] [address] [id number] [place] [id number] Nov, [facility] [address] [id number] [place] [id number] Nov, [facility] [address] [id number] [place] [id number] Oct, [facility] [address] [id number] [place] [id number] Sep, [facility] [address] [id number] [place] [id number] Aug, [facility] [address] [id number] [address] Aug, [facility] [address] [id number] [place] [id number] Aug, [facility] [address] [id number] [place] [id number] Jul, [facility] [address] [facility] [id number] [place] [address] Jul, [facility] [address] [id number] [place] [id number] Jul, [facility] [address] [facility] [id number] [place] [address] Jul, [facility] [address] [id number] [place] [id number] Jun, [facility] [address] [facility] [id number] [place] [address] Jun, [facility] [address] [id number][place] [id number] May, [facility] [address] [facility] [id number] [place] [address] May, [facility] [address] [id number][place] [id number] May, [facility] [address] [facility] [id number] [place] [address] May, [facility] [place] [address] [id number] [place] [id number] Apr, [facility] [place] [address] [id number] [place] [id number] Apr, [facility] [place] [address] [id number] [place] [id number] Mar, [facility] [address] [id number] [place] [id number] Mar, [facility] [place] [address] [id number] [place] [id number] Feb, [facility] [place] [address] [id number] [place] [id number] Feb, [facility] [address] [id number] [place] [id number] Jan, [facility] [place] [address] [id number] [place] [id number] Jan, [facility] [place] [address] [id number] [place] [id number] Jan, [facility] [address] [id number] [place] [id number] Jan, [facility] [address] [id number] [place] [id number] December, [facility] [address] [id number] [place] [id number] December, [facility] [address]00565100[place] [address] Nov, [facility] [address] [id number] [place] [id number] Nov, [facility] [address] [id number] [place] [id number] Nov, [facility] [address] [id number] [place] [id number] Nov, [facility] [address] [id number] [place] [id number] Nov, [facility] [address]00565100[place] [address] Oct, [facility] [address] [id number] [address] Oct, [facility] [place] [address] [id number] [place] [id number] Oct, [facility] [place] [address] [id number] [place] [id number] Oct, [facility] [place] [address] [id number] [place] [id number] Oct, [facility] [place] [address] [id number] [place] [id number] Oct, [facility] [place] [address] [id number] [place] [id number] Oct, [facility] [place] [address] [id number] [place] [id number] Oct, [facility] [place] [address] [id number] [place] [id number] Oct, [facility] [address]00565100[place] [address] Oct, [facility] [place] [address] [id number] [place] [id number] Sep, [facility] [address] [id number] [place] [id number] Sep, [facility] [address] [id number] [place] [id number] Aug, [facility] [address] [id number] [place] [id number] Aug, [facility] [address]00565100[place] [address] Jul, [facility] [address]00565100[place] [address] Jul, [facility] [id number] [place] [address] Jul, [facility] [id number] [place] [address] Jul, [facility] [id number] [place] [address] Jul, [facility] [address] [id number] [address] Jul, [facility] [address]00565100[place] [address] Jul, [facility] [address]00565100[place] [address] Jul, [facility] [id number] [place] [address] Jul, [facility] [address]00565100[place] [address] Jul, [facility] [id number] [place] [address] Jul, [facility] [id number] [place] [address] Jul, [facility] [address]00565100[place] [address] Jul, [facility] [address] [id number] [address] Jul, IMMUNIZATIONS No Known Immunizations SOCIAL HISTORY [...] Surgical History Left eye retinal eye repair ([facility]) 06/2014 Surgical History amputation, toe-right third toe ([facility]) 2013 Surgical History Right eye retinal eye repair ([facility]) 09/2014 Surgical History heart cath with [...]
--- OUTSIDE RECORDS SUMMARY | 2019-04-03 06:27 | XMS REPORT ---
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 Active 881804061 Problem 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 Active 609514693 Problem Type 2 diabetes mellitus with diabetic polyneuropathy E11.42 Active 572811497 Problem Hypercholesterolemia E78.0 Active 02288020 Problem Fatigue, unspecified type R53.83 Active 85029229 Problem Personal history of carotid stenosis Z86.79 Active 002678201 Problem Uses walker Z99.89 Active 321126296 Problem Type 2 diabetes mellitus with diabetic neuropathy E11.40 Active 11340949 Problem Aphasia R47.01 Active 21084018 Problem S/P coronary artery stent placement Z95.5 Active 117625997 Problem Type 2 diabetes mellitus with diabetic retinopathy, macular edema presence unspecified, with unspecified retinopathy severity E11.319 Active 52994227 Problem Osteomyelitis of right foot, unspecified chronicity M86.9 Active 90299554 Problem CKD (chronic kidney disease), stage 3 (moderate) N18.3 Active 043206157 Problem Essential hypertension I10 Active 92601147 Problem GERD without esophagitis K21.9 Active 530015159 Problem Insulin long-term use Z79.4 Active 662664103 Problem CKD (chronic kidney disease) stage 3, GFR 30-59 ml/min N18.3 Active 059410905 Problem Type 2 diabetes mellitus with diabetic peripheral angiopathy without gangrene E11.51 Active 362768736 Problem Chronic kidney disease, unspecified N18.9 Active 998589089 Problem Coronary artery disease involving yomba shoshone coronary artery of yomba shoshone heart without angina pectoris I25.10 Active 1218466022802 Problem Mixed hyperlipidemia E78.2 Active 484248910 Problem Hyperlipidemia, unspecified hyperlipidemia E78.5 Active 21733560 Problem Obesity (BMI 30.0-34.9) E66.9 Active 091918459123060 Problem Chronic obstructive pulmonary disease, unspecified COPD type J44.9 Active 07022519 Problem Frequent falls R29.6 Active 833286326 Problem Peripheral vascular disease I73.9 Active 559679508 Problem Chronic diarrhea K52.9 Active 164434141 Problem Other chronic pain G89.29 Active 13084643 Problem Full incontinence of feces R15.9 Active 282220321701333 Problem Major depressive disorder, single episode, mild F32.0 Active 99996269 Problem Pain in left shoulder M25.512 Active 33463646 Problem Ulcer of left foot, unspecified ulcer stage L97.529 Active 91448399 Problem Chronic pain syndrome G89.4 Active 676146336 Problem Diabetes type 2, uncontrolled E11.65 Active 589299941 Problem High risk medication use Z79.899 Active 795768795 Problem Fecal urgency R15.2 Active 19344455 Problem Functional diarrhea K59.1 Active 54403483 Problem Type 2 diabetes mellitus with foot ulcer E11.621 Active 806389508 Problem Mixed stress and urge urinary incontinence N39.46 Active 155715307 Problem Chronic fatigue R53.82 Active 02741227 ALLERGIES No Information ENCOUNTERS Encounter Location Date Diagnosis [facility] [id number] [place] [address] [id number] Jan, Type 2 diabetes mellitus with diabetic neuropathy E11.40 [id number] [place] [address] [id number] December, Bilateral low back pain without sciatica M54.5 [facility] [id number] [place] [address] [id number] Nov, Bilateral low back pain without sciatica M54.[address] [place] [address] [id number] Oct, Bilateral low back pain without sciatica M54.5 [id number] [phone] Oct, [facility] [id number] [place] [phone] Oct, [facility] [place] [id number] [place] [address] [id number] Sep, Other chronic pain G89.29 and Diabetes type 2, uncontrolled E11.65 [facility] [address] [id number] [place] [id number] Sep, Type 2 diabetes mellitus with diabetic neuropathy E11.40 ; Atherosclerosis of yomba shoshone artery of both lower extremities, with unspecified presence of clinical manifestation I70.203 and Ulcer of left foot, unspecified ulcer stage L97.529 [facility] [place] [id number] [place] [address] [id number] Sep, Bilateral low back pain without sciatica M54.5 [facility] [id number] [place] [address] [id number] Aug, Bilateral low back pain without sciatica M54.5 [facility] [id number] [place] [address] [id number] Aug, [facility] [place] [id number] [place] [address] [phone] Aug, Essential hypertension I10 [facility] [place] [id number] [place] [address] [id number] Aug, [facility] [id number] [place] [address] [id number] Jul, [facility] [place] [id number] [place] [address] [phone] Jul, Bilateral low back pain without sciatica M54.5 [facility] [place] [id number] [place] [address] [id number] Jul, Hyperlipidemia, unspecified hyperlipidemia E78.5 [facility] [place] [id number] [place] [address] [id number] Jul, [facility] [id number] [place] [address] [id number] Jul, Type 2 diabetes mellitus with diabetic neuropathy E11.40 [facility] [place] [id number] [place] [address] [id number] Jun, [facility] [address] [id number] Jun, Bilateral low back pain without sciatica M54.5 [facility] [id number] [id number] 14 Jun, 2018 Chronic fatigue R53.82 [facility] [id number], [place] [phone] Jun, Type 2 diabetes mellitus with diabetic polyneuropathy E11.42 and Bilateral low back pain without sciatica M54.5 [facility] [id number], [place] [id number] May, Other chronic pain G89.29 [facility] [id number], [place] [phone] May, Diabetes type 2, uncontrolled E11.65 [facility] [address] [address] 16 May, 2018 Type 2 diabetes mellitus with diabetic neuropathy E11.40 ; Coronary artery disease involving yomba shoshone coronary artery of yomba shoshone heart without angina pectoris I25.10 and Major depressive disorder, single episode, mild F32.0 [facility] [address] [facility] [id number] [phone] May, [facility] [id number], [place] [id number] May, [facility] [id number], [place] [phone] May, [facility] [id number], [place] [id number] Apr, Other chronic pain G89.29 [facility] [address] [id number] [place] [phone] 05 Apr, 2018 [facility] [address] [facility] [id number][place] [phone] Apr, Essential hypertension I10 [facility] [id number], [place] [id number] Mar, Other chronic pain G89.29 [facility] [address] [id number][place] [phone] Mar, [facility] [id number] [place] [address] [id number] Feb, Other chronic pain G89.29 [facility] [id number] [place] [address] [id number] Feb, Diabetes type 2, uncontrolled E11.65 ; Type 2 diabetes mellitus with diabetic retinopathy, macular edema presence unspecified, with unspecified retinopathy severity E11.319 and Bilateral low back pain without sciatica M54.5 [facility] [id number] [place] [address] [id number] Feb, [facility] [id number] [place] [address] [id number] Feb, Diabetes type 2, uncontrolled E11.65 [facility] [id number] [place] [address] [id number] Feb, Other chronic pain G89.29 [facility] [id number] [place] [address] [id number] Jan, [facility] [id number] [place] [address] [id number] Jan, [facility] [id number] [place] [address] [id number] Jan, [facility] [id number] [place] [address] [id number] Jan, Other chronic pain G89.29 [facility] [id number] [place] [address] [id number] December, Mixed stress and urge urinary incontinence N39.46 [facility] [id number] [place] [address] [id number] December, Chronic fatigue R53.82 [facility] [id number] [place] [address] [id number] December, Other chronic pain G89.29 [facility] [id number] [place] [address] [id number] December, Diabetes type 2, uncontrolled E11.65 ; [...] pain G89.29 [facility] [address]100[place] [address] December, [address] [id number] [place] [address] [id number] December, Medicare annual wellness visit, subsequent Z00.00 ; Type 2 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 ; Chronic obstructive pulmonary disease, unspecified COPD type J44.9 ; Depression F32.9 ; Peripheral vascular disease I73.9 ; Coronary artery disease involving yomba shoshone coronary artery of yomba shoshone heart without angina pectoris I25.10 ; Hypercholesterolemia E78.0 ; GERD without esophagitis K21.9 and Chronic kidney disease, unspecified N18.9 [id number] [place] [address] [id number] December, Mixed stress and urge urinary incontinence N39.46 ; Full incontinence of feces R15.9 ; Fecal urgency R15.2 ; Functional diarrhea K59.1 and Type 2 diabetes mellitus with diabetic neuropathy E11.40 [id number] [place] [address] [id number] Nov, Other chronic pain G89.29 [address] [place] [address] [id number] Oct, [id number] [place] [address] [id number] Oct, [id number] [place] [address] [id number] Oct, Other chronic pain G89.29 [id number] [place] [address] [id number] Sep, Other chronic pain G89.29 [id number] [place] [address] [id number] Aug, CKD (chronic kidney disease), stage 3 (moderate) N18.3 ; Anemia, unspecified type D64.9 and Dilated pore of Ly L70.8 [facility] [id number] [place] [address] [id number] Aug, Other chronic pain G89.29 ; Pain in left shoulder M25.512 ; High risk medication use Z79.899 ; Uses walker Z99.89 ; Diabetes type 2, uncontrolled E11.65 and Depression F32.9 [facility] [id number] [place] [address] [id number] Aug, Chronic diarrhea K52.9 [place] [id number] [place] [address] [id number] Aug, Chronic diarrhea K52.9 ; Type 2 diabetes mellitus with diabetic neuropathy E11.40 ; Diabetes type 2, uncontrolled E11.65 ; Insulin long-term use Z79.4 ; Chronic obstructive pulmonary disease, unspecified COPD type J44.9 ; Chronic pain syndrome G89.4 ; Pain in left shoulder M25.512 ; Uses walker Z99.89 ; S/P coronary artery stent placement Z95.5 ; Mixed hyperlipidemia E78.2 and Essential hypertension I10 [place] [id number] [place] [address] [phone] Aug, [place] [id number] [place] [address] [id number] Jul, Diabetes type 2, uncontrolled E11.65 [place] [id number] [place] [address] [id number] Jul, Diabetes type 2, uncontrolled E11.65 ; Type 2 diabetes mellitus with diabetic neuropathy E11.40 ; Insulin long-term use Z79.4 and Chronic obstructive pulmonary disease, unspecified COPD type J44.9 [address] [place] [address] [id number] Jun, [id number] [place] [address] [id number] Jun, Essential hypertension I10 [id number] [place] [address] [id number] Jun, Essential hypertension I10 [id number] [place] [address] [id number] Jun, Type 2 diabetes mellitus with diabetic neuropathy E11.40 ; Type 2 diabetes mellitus with diabetic 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 ; S/P coronary artery stent placement Z95.5 ; Obesity (BMI 30.0-34.9) E66.9 ; Mixed hyperlipidemia E78.2 ; Frequent falls R29.6 ; Chronic obstructive pulmonary disease, unspecified COPD type J44.9 ; Essential hypertension I10 ; Insulin long-term use Z79.4 and High risk medication use Z79.899 [address] [place] [address] [id number] May, Diarrhea, unspecified type R19.7 ; Type 2 diabetes mellitus with diabetic neuropathy E11.40 ; Chronic obstructive pulmonary disease, unspecified COPD type J44.9 ; S/P coronary artery stent placement Z95.5 ; High risk medication use Z79.899 ; Essential hypertension I10 ; Encounter for administration of vaccine Z23 and Encounter for immunization Z23 [address] [id number] [place] [id number] May, Chronic obstructive pulmonary disease, unspecified COPD type J44.[id number] [place] [address] [id number] May, Type 2 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 ; Encounter for immunization Z23 ; Needs flu shot Z23 ; Comprehensive diabetic foot examination, type 2 DM, encounter for E11.9 and Obesity (BMI 30.0-34.9) E66.9 [address] [place] [address] [id number] May, [address] [place] [address] [id number] Apr, [address] [place] [address] [id number] Apr, Essential hypertension I10 and Aphasia R47.[address] [place] [address] [id number] Apr, [address] [place] [address] [id number] Apr, Type 2 diabetes mellitus with diabetic [...] J44.9 [facility] [id number] [place] [address] [id number] Mar, [facility] [address] [id number] Mar, Type 2 diabetes mellitus with diabetic 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 ; Leg wound, left, initial encounter S81.802A ; Hx of shoulder surgery Z98.890 ; Acute pain of left shoulder M25.512 and Fall, initial encounter W19.XXXA [facility] [address] [id number] Feb, Follow-up exam Z09 ; Hx of shoulder surgery Z98.890 ; Acute pain of left shoulder M25.512 ; Essential hypertension I10 and Leg wound, left, initial encounter S81.802A [facility] [id number] [place] [address] [id number] Feb, [facility] [address] [id number] Feb, [facility] [id number] [place] [address] [id number] Feb, Chronic obstructive pulmonary disease, unspecified COPD type J44.9 [facility] [id number] [place] [address] [id number] Feb, [facility] [id number] [place] [address] [id number] Jan, Generalized weakness R53.1 ; Exertional shortness of breath R06.02 and Fungal rash of trunk B36.9 [facility] [id number] [place] [address] [id number] Jan, [facility] [id number] [place] [address] [id number] Jan, [facility] [address] [id number] Jan, [place] [address] [facility] [id number] [id number] Jan, [address] [place] [address] [id number] December, High risk medication use Z79.899 [id number] [phone] December, Type 2 diabetes mellitus with diabetic neuropathy E11.40 [address]100[place] [id number] December, High risk medication use Z79.899 [address]65100[place], [place] [id number] Nov, Diabetes type 2, uncontrolled E11.65 [address] [place] [address] [id number] Nov, Medicare annual wellness visit, initial Z00.00 ; Bilateral low back pain without sciatica M54.5 ; Pain in left shoulder M25.512 ; Chronic pain syndrome G89.4 ; Type 2 diabetes mellitus with diabetic polyneuropathy E11.42 ; High risk medication use Z79.899 and Encounter for immunization Z23 [address]100[place] [id number] Nov, Type 2 diabetes mellitus with diabetic neuropathy E11.40 ; Coronary artery disease involving yomba shoshone coronary artery of yomba shoshone heart without angina pectoris I25.10 and CKD (chronic kidney disease), stage 3 (moderate) N18.[address] [id number][place] [id number] Oct, Type 2 diabetes mellitus with diabetic polyneuropathy E11.42 ; Chronic pain syndrome G89.4 ; Chronic obstructive pulmonary disease, unspecified COPD type J44.9 ; Chronic kidney disease, unspecified N18.9 and Rash R21 [address] [id number] [place] [id number] Oct, Type 2 diabetes mellitus with diabetic neuropathy E11.[address] [id number][place] [id number] Oct, Rash R21 and Impetigo L01.00 [facility] [id number], [place] [id number] Oct, Chronic pain syndrome G89.4 [facility] [id number] [place] [address] [id number] Oct, [facility] [id number] [place] [address] [id number] Sep, Sebaceous cyst L72.3 [facility] [id number] [place] [address] [id number] Sep, Sebaceous cyst L72.3 [facility] [id number] [place] [address] [id number] Sep, Chronic pain syndrome G89.4 ; Pain in left shoulder M25.512 and Effusion of olecranon bursa, left M25.422 [facility] [address]100[place], [place] [address] Aug, [facility] [address] [place] [address] [id number] Aug, [place] [id number] [place] [address] [id number] Aug, Mixed hyperlipidemia E78.2 and Chronic kidney disease, unspecified N18.[address] [place] [address] [id number] Jul, Type 2 diabetes mellitus with diabetic neuropathy E11.40 ; Essential hypertension I10 and S/P coronary artery stent placement Z95.5 [facility] [address], [place] [id number] Jul, 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3 and Anemia, unspecified type D64.[address] [place] [address] [id number] Jun, Type 2 diabetes mellitus with diabetic neuropathy E11.40 ; Decreased GFR R94.4 ; CKD (chronic kidney disease), stage 3 (moderate) N18.3 and Decreased hemoglobin R71.0 [id number] [place] [address] [id number] Jun, CKD (chronic kidney disease), stage 3 (moderate) N18.3 and Anemia, unspecified type D64.9 [address] [place] [address] [id number] Jun, Type 2 diabetes mellitus with diabetic neuropathy E11.40 ; Decreased GFR R94.4 and CKD (chronic kidney disease), stage 3 (moderate) N18.[address] [place] [address] [id number] Jun, Type 2 diabetes mellitus with diabetic neuropathy E11.40 and Essential hypertension I10 [address] [place] [address] [id number] Jun, [address] [id number] [place] [address] [id number] Jun, [address] [place] [address] [id number] Jun, Type 2 diabetes mellitus with diabetic neuropathy E11.40 ; S/P coronary artery stent placement Z95.5 ; Chronic obstructive pulmonary disease, unspecified COPD type J44.9 ; Essential hypertension I10 ; GERD without esophagitis K21.9 ; Peripheral vascular disease I73.9 ; Mixed hyperlipidemia E78.2 and Hospital discharge follow-up Z09 [place] [address] [id number] [id number] Jun, [facility] [address] [id number] [id number] May, Depression F32.9 and Hyperlipidemia, unspecified hyperlipidemia E78.5 [facility] [address] [id number] [address] May, [facility] [address], [place] [id number] May, [facility] [address], [place] [id number] May, Essential hypertension I10 ; Chronic pain syndrome G89.4 ; Pain in left shoulder M25.512 ; High risk medication use Z79.899 ; Chronic obstructive pulmonary disease, unspecified COPD type J44.9 ; S/P coronary artery stent placement Z95.5 ; Personal history of carotid stenosis Z86.79 ; Hyperlipidemia, unspecified hyperlipidemia E78.5 ; Decreased GFR R94.4 and Type 2 diabetes mellitus with diabetic polyneuropathy E11.42 [facility] [address] [place] [address] [id number] May, Hemoglobin decreased R71.0 and Decreased GFR R94.4 [place] [id number] [place] [address] [id number] May, Hemoglobin decreased R71.0 and Decreased GFR R94.[address] [place] [address] [id number] May, [address], [place] [id number] May, [address], [place] [id number] Apr, [address] [place] [address] [id number] Apr, Type 2 diabetes mellitus with foot [...] unspecified hyperlipidemia E78.5 and Essential hypertension I10 [facility] [id number] [place] [address] [id number] Apr, [facility] [id number] [place] [address] [id number] Mar, [facility] [phone] [place] [address] [phone] Mar[address] [place] [id number] [place] [phone] Mar, [facility] [phone] [place] [address] [phone] Feb, [facility] [facility] [id number] [place] [address] [phone] Feb, [facility] [id number] [place] [address] [id number] Feb, [facility] [id number] [place] [address] [phone] Jan, Type 2 diabetes mellitus with diabetic polyneuropathy E11.42 ; Hypercholesterolemia E78.0 ; Chronic pain syndrome G89.4 ; Pain in left shoulder M25.512 and High risk medication use Z79.899 [facility] [id number] [place] [address] [phone] Jan, [id number] [place] [address] [id number] Jan, [facility] [id number] [place] [address] [phone] December, [facility] [id number] [place] [address] [phone] December, [facility] [id number] [place] [address] December, Diabetes type 2, uncontrolled E11.65 ; Type 2 diabetes mellitus with diabetic neuropathy E11.40 ; Peripheral vascular disease I73.9 ; 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 and 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 [facility] [address] [id number] [place] [id number] Nov, [facility] [address] [id number] [place] [id number] Nov, [facility] [address] [id number] [place] [id number] Nov, [facility] [place] [address] [id number] [place] [id number] Nov, Right hip pain M25.551 [facility] [id number] [place] [address] Nov, [facility] [address] [address] Nov, [facility] [id number] [place] [address] [id number] Nov, Diabetes with neurological manifestations, type II or unspecified type, not stated as uncontrolled 250.60 [facility] [id number] [place] [address] [id number] Nov, [facility] [address] [id number] [place] [address] [phone] Nov, [facility] [address] [id number] [place] [address] [phone] Oct, Diabetes type 2, uncontrolled E11.65 ; Type 2 diabetes mellitus with diabetic neuropathy, unspecified E11.40 and Low back pain M54.5 [facility] [id number] [place] [address] [phone] Oct, [facility] [address] [id number] [id number] Oct, [facility] [address] [id number] [place] [address] [phone] Oct, [facility] [address] [id number] [place] [address] [id number] Sep, [facility] [id number] [place] [address] [phone] Sep, [facility] [id number] [place] [address] Sep, [facility] [id number], [place] [id number] Sep, [facility] [id number] [place] [address] [phone] Sep, [facility] [id number] [place] [address] [phone] Aug, 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 [facility] [id number] [place] [address] [phone] Aug, [facility] [id number] [place] [address] [phone] Aug, Allergic rhinitis due to pollen J30.[id number] [place] [address] [phone] Jul, [facility] [id number] [place] [address] [id number] Jul, [facility] [id number] [place] [address] [phone] Jul, [facility] [id number] [place] [address] [phone] Jun, [place] [id number] [place] [address] [phone] Jun, Thumb tendonitis M77.8 and Ringing in ear, bilateral H93.13 [facility] [address] [id number] [place] [phone] Jun, [facility] [address] [id number] May, [facility] [id number] [place] [address] May, [facility] [id number] [place] [address] May, Pre-op evaluation Z01.818 ; Encounter for immunization Z23 ; Type 2 diabetes mellitus with diabetic peripheral angiopathy without gangrene E11.51 ; Insulin long-term use Z79.4 ; Type 2 diabetes mellitus with foot ulcer E11.621 ; Peripheral vascular disease I73.9 ; Coronary artery disease involving [place] coronary artery of [place] heart without angina pectoris I25.10 ; S/P coronary artery stent placement Z95.5 ; Osteomyelitis of right foot, unspecified chronicity M86.9 and Chronic obstructive pulmonary disease, unspecified COPD type J44.9 [facility] [id number] [place] [address] May, [facility] [address] [id number] May, [address] [id number] May, Diabetes type 2, uncontrolled E11.65 ; Encounter for immunization Z23 ; Osteopenia M85.80 and Allergic rhinitis due to pollen J30.1 [facility] [id number] [place] [address] [phone] May, Lumbago 724.2 [facility] [id number] [place] [address] [phone] Apr, [facility] [id number] [place] [address] [phone] Apr, [facility] [id number] [place] [address] [phone] Apr, [facility] [id number] [place] [address] [phone] Apr, [facility] [id number] [place] [address] Mar, [facility] [id number] [place] [address] [phone] Mar, [facility] [id number] [place] [address] [phone] Mar, [facility] [id number] [place] [address] [phone] Mar, [facility] [id number] [place] [address] [phone] Mar, [facility] [id number] [place] [phone] Mar, [facility] [address] [id number][place] [phone] Mar, [facility] [address] [id number] [place] [id number] Mar, Diabetes with neurological manifestations, type II or unspecified type, not stated as uncontrolled 250.60 and Severe obesity (BMI 35.0-35.9 with comorbidity) 278.01 [facility] [id number] [place] [address] [phone] Mar, [facility] [id number] [place] [address] Mar, [facility] [id number] [place] [address] Feb, [facility] [place] [address] [id number] [place] [address] [phone] Feb, [facility] [id number] [place] [address] [phone] Feb, [facility] [address] [id number] [place] [id number] Feb, Diabetes with neurological manifestations, type II or unspecified type, not stated as uncontrolled 250.60 [facility] [address] [id number] [place] [phone] Feb, [facility] [address] [address] Feb, [facility] [address] [id number][place] [id number] Feb, [facility] [address] [id number] [place] [id number] Feb, Follow up V67.9 ; Diabetes with neurological manifestations, type II or unspecified type, not stated as uncontrolled 250.60 and Congestive heart failure 428.0 [facility] [address] [id number] [place] [id number] Jan, [facility] [address] [id number], [place] [id number] Jan, [facility] [address] [id number][place] [id number] Jan, [facility] [place] [id number], [place] [id number] December, Otitis media with effusion 381.4 ; Left arm numbness 782.0 and Osteoporosis 733.00 [facility] [address] [id number][place] [id number] December, [facility] [id number], [place] [id number] Nov, [facility] [id number], [place] [id number] Nov, Serous otitis media 381.4 and Lumbago 724.2 [facility] [id number] [place] [phone] Nov, [facility] [id number] [place] [phone] Nov, [facility] [id number], [place] [id number] Oct, [facility] [id number] [place] [address] Oct, [facility] [id number], [place] [id number] Oct, [facility] [address], [place] [address] Oct, [facility] [id number], [place] [id number] Oct, [facility] [place] [facility] [address], [place] [address] Oct, [facility] [place] [facility] [id number] [place] [address] Sep, [facility] [place] [facility] [address], [place] [address] Sep, [facility] [address] [id number], [place] [id number] Sep, [facility] [place] [facility] [address] [facility] [id number] [place] [address] Sep, [facility] [address] [facility] [id number] [place] [id number] Aug, [facility] [place] [facility] [address] [facility] [id number] [place] [address] Aug, [facility] [address] [facility] [id number], [place] [id number] Aug, [facility] [place] [facility] [address] [facility] [id number][place] [address] Aug, [facility] [address] [facility] [id number], [place] [id number] Jul, [facility] [place] [facility] [address] [facility] [id number][place] [address] Jul, [facility] [address] [facility] [id number], [place] [id number] Jul, [facility] [place] [facility] [address] [facility] [id number][place] [address] Jul, [facility] [address] [facility] [id number], [place] [id number] Jul, [facility] [place] [facility] [address] [facility] [id number], [place] [address] Jul, [facility] [address] [facility] [id number], [place] [id number] Jun, [facility] [place] [facility] [address] [facility] [id number], [place] [address] Jun, [facility] [address] [facility] [id number], [place] [id number] May, [facility] [place] [facility] [address] [facility] [id number][place] [address] May, [facility] [address] [facility] [id number], [place] [id number] May, [facility] [place] [facility] [address] [facility] [id number][place] [address] May, [facility] [address] [id number], [place] [id number] May, [facility] [place] [facility] [address] [facility] [id number][place] [address] May, [facility] [address] [id number], [place] [id number] May, [facility] [address] [facility] [id number], [place] [id number] May, [facility] [place] [facility] [address] [facility] [id number][place] [address] May, [facility] [place] [facility] [address] [facility] [id number], [place] [address] May, [facility] [address] [facility] [id number], [place] [id number] May, [facility] [place] [facility] [address]00565100[place], [place] [address] May, [facility] [place] [facility] [address]00565100[place], [place] [address] Apr, [facility] [address] [facility] [id number], [place] [id number] Apr, [facility] [place] [facility] [address] [id number], [place] [address] Apr, [facility] [address] [facility] [id number], [place] [id number] Apr, [facility] [address] [facility] [id number], [place] [id number] Apr, [facility] [place] [facility] [address] [facility] [id number], [place] [address] Apr, [facility] [place] [facility] [address] [facility] [id number], [place] [address] Apr, [facility] [address] [facility] [id number], [place] [id number] Apr, [facility] [place] [facility] [address] [facility] [id number], [place] [address] Apr, [facility] [address] [id number] [place] [id number] Apr, [facility] [place] [facility] [address] [facility] [id number] [place] [address] Apr, [facility] [address] [id number] [place] [id number] Apr, [facility] [place] [facility] [address] [facility] [id number] [place] [address] Apr, [facility] [address] [id number] [place] [id number] Apr, [facility] [place] [facility] [address] [facility] [id number] [place] [address] Apr, [facility] [address] [id number] [place] [id number] Apr, [facility] [place] [facility] [address] [facility] [id number], [place] [address] Apr, [facility] [address] [id number] [place] [id number] Apr, [facility] [place] [facility] [address] [facility] [id number][place] [address] Apr, [facility] [address] [facility] [id number] [place] [id number] Mar, [facility] [place] [facility] [address] [facility] [id number], [place] [address] Mar, [facility] [address] [id number] [place] [id number] Mar, [facility] [address] [id number] [place] [id number] Mar, [facility] [place] [facility] [address] [facility] [id number], [place] [address] Mar, [facility] [place] [facility] [address] [facility] [id number][place] [address] Mar, [facility] [address] [id number] [place] [id number] Mar, [facility] [place] [facility] [address] [id number] [place] [address] Mar, [facility] [address] [id number] [place] [id number] Mar, [facility] [place] [facility] [address] [facility] [id number] [place] [address] Mar, [facility] [address] [id number] [place] [id number] Mar, [facility] [place] [facility] [address] [id number] [place] [address] Mar, [facility] [address] [id number] [place] [id number] Mar, [facility] [place] [facility] [address] [facility] [id number] [place] [address] Mar, [facility] [address] [id number] [place] [id number] Mar, [facility] [place] [facility] [address] [facility] [id number] [place] [address] Mar, [facility] [address] [id number] [place] [id number] Mar, [facility] [place] [facility] [address] [facility] [id number] [place] [address] Mar, [facility] [address] [id number] [place] [id number] Mar, [facility] [place] [facility] [address] [facility] [id number] [place] [address] Mar, [facility] [address] [id number] [place] [id number] Feb, [facility] [place] [facility] [address] [facility] [id number] [place] [address] Feb, [facility] [address] [id number] [place] [id number] Feb, [facility] [place] [facility] [address] [facility] [id number] [place] [address] Feb, [facility] [address] [id number] [place] [id number] Feb, [facility] [place] [facility] [address] [id number] [place] [address] Feb, [facility] [address] [id number] [place] [id number] Feb, [facility] [place] [facility] [address] [id number] [place] [address] Feb, [facility] [address] [id number] [place] [id number] Feb, [facility] [place] [facility] [address] [facility] [id number] [place] [address] Feb, [facility] [address] [id number] [place] [id number] Feb, [facility] [place] [facility] [address] [facility] [id number] [place] [address] Feb, [facility] [address] [id number] [place] 015775885 Feb, [facility] [place] [facility] [address] [facility] [id number], [place] [address] Feb, [facility] [address] [id number] [place] [id number] Feb, [facility] [place] [facility] [address] [facility] [id number][place] [address] Feb, [facility] [address] [id number] [place] [id number] Feb, [facility] [place] [facility] [address] [id number] [place] [address] Feb, [facility] [address] [id number] [place] [id number] Feb, [facility] [address] [id number] [place] 154053761 Feb, [facility] [place] [facility] [address] [facility] [id number], [place] [address] Feb, [facility] [place] [facility] [address] [id number] [place] [address] Feb, [facility] [address] [id number] [place] [id number] Feb, [facility] [place] [facility] [address] [id number] [place] [address] Feb, [facility] [address] [id number] [place] [id number] Feb, [facility] [place] [facility] [address] [id number] [place] [address] Feb, [facility] [address] [id number] [place] [id number] Feb, [facility] [place] [facility] [address] [facility] [id number] [place] [address] Feb, [facility] [address] [facility] [id number] [place] [id number] Jan, [facility] [place] [facility] [address] [id number] [place] [address] Jan, [facility] [place] [facility] [address] [id number] [place] [address] Jan, [facility] [place] [facility] [address] [facility] [id number] [place] [address] Jan, [facility] [place] [facility] [address] [facility] [id number] [place] [address] Jan, [facility] [place] [facility] [address] [id number] [place] [address] Jan, [facility] [address] [id number] [place] [id number] Jan, [facility] [place] [facility] [address] [id number] [place] [address] Jan, [facility] [place] [facility] [address] [id number] [place] [address] Jan, [facility] [place] [facility] [address] [id number] [place] [address] Jan, [facility] [address] [id number] [place] [id number] Jan, [facility] [address] [id number] [place] [id number] Jan, [facility] [place] [facility] [address] [facility] [id number] [place] [address] Jan, [facility] [place] [facility] [address] [id number] [place] [address] Jan, [facility] [address] [id number] [place] [id number] Jan, [facility] [address] [id number] [place] [id number] Jan, [facility] [place] [facility] [address] [facility] [id number] [place] [address] Jan, [facility] [place] [facility] [address] [facility] [id number] [address] Jan, [facility] [place] [facility] [address] [facility] [id number][place] [address] Jan, [facility] [address] [facility] [id number] [id number] December, [facility] [place] [facility] [address] [facility] [id number] [place] [address] December, [facility] [place] [facility] [address] [facility] [id number][place] [address] December, [facility] [address] [id number] [place] [id number] December, [facility] [place] [facility] [address] [facility] [id number] [place] [address] December, [facility] [address] [id number] [place] [id number] December, [facility] [place] [facility] [address] [facility] [id number][place] [address] December, [facility] [address] [id number] [place] [id number] December, [facility] [place] [facility] [address] [facility] [id number], [place] [address] December, [facility] [address] [facility] [id number] [place] [id number] Nov, [facility] [place] [facility] [address] [facility] [id number] [place] [address] Nov, [facility] [address] [facility] [id number][place] [id number] Nov, [facility] [place] [facility] [address] [facility] [id number] [place] [address] Nov, [facility] [place] [facility] [address] [id number], [place] [address] Nov, [facility] [place] [facility] [id number] [place] [address] Nov, [facility] [place] [facility] [id number], [place] [address] Oct, [facility] [address] [facility] [id number][place] [id number] Oct, [facility] [place] [facility] [id number], [place] [address] Oct, [facility] [address] [id number] [id number] Oct, [facility] [place] [facility] [address] [facility] [id number], [place] [address] Oct, [facility] [address] [facility] [id number] [place] [id number] Sep, [facility] [place] [facility] [address] [facility] [id number][place] [address] Sep, [facility] [address] [facility] [id number][place] [id number] Aug, [facility] [place] [facility] [address] [id number], [place] [address] Aug, [facility] [address] [id number] [place] [id number] Aug, [facility] [place] [facility] [address] [facility] [id number], [place] [address] Aug, [facility] [place] [facility] [address] [facility] [id number] [place] [address] Aug, [facility] [address] [id number][place] [id number] Aug, [facility] [place] [facility] [address] [facility] [id number] [place] [address] Aug, [facility] [place] [facility] [address] [facility] [id number], [place] [address] Aug, [facility] [address] [facility] [id number] [place] [id number] Aug, [facility] [place] [facility] [address] [facility] [id number], [place] [address] Aug, [facility] [address] [facility] [id number][place] [id number] Jul, [facility] [place] [facility] [address] [facility] [id number], [place] [address] Jul, [facility] [address] [id number][place] [id number] Jul, [facility] [place] [facility] [address] [facility] [facility] [id number] [address] Jul, [facility] [address] [id number][place] [id number] Jul, [facility] [address] [facility] [id number], [place] [address] Jul, [facility] [address] [facility] [id number][place] [id number] Jul, [facility] [address] [facility] [id number], [place] [address] Jul, [facility] [address] [id number] [place] [id number] Jun, [facility] [address] [id number] [address] Jun, [facility] [address] [id number] [place] [id number] Jun, [facility] [address] [facility] [id number][place] [address] Jun, [facility] [address] [facility] [id number], [place] [address] Jun, [facility] [address] [facility] [id number], [place] [address] Jun, [facility] [address] [id number][place] [id number] Apr, [facility] [address] [id number] [place] [id number] Mar, [facility] [address] [id number][place] [id number] Mar, [facility] [address] [id number] [place] [id number] Feb, [facility] [address] [id number] [place] [id number] Feb, [facility] [address] [id number] [place] [id number] Feb, [facility] [address] [id number][place] [id number] December, [facility] [address] [id number], [place] [id number] December, [facility] [address] [id number], [place] [address] December, [facility] [address] [id number] [place] [id number] December, [facility] [address] [id number] [place] [id number] December, [facility] [address] [id number][place] [id number] Nov, [facility] [address] [id number] [place] [id number] Nov, [facility] [address] [id number] [place] [id number] Nov, [facility] [address] [id number] [place] [id number] Oct, [facility] [address] [id number] [place] [id number] Sep, [facility] [address] [id number] [place] [id number] Aug, [facility] [address] [id number], [place] [address] Aug, [facility] [address] [id number] [place] [id number] Aug, [facility] [address] [id number] [place] [id number] Jul, [facility] [address] [facility] [id number], [place] [address] Jul, [facility] [address] [id number] [place] [id number] Jul, [facility] [address] [facility] [id number], [place] [address] Jul, [facility] [address] [id number] [place] [id number] Jun, [facility] [address] [facility] [id number], [place] [address] Jun, [facility] [address] [id number], [place] [id number] May, [facility] [address] [facility] [id number], [place] [address] May, [facility] [address] [id number][place] [id number] May, [facility] [address] [facility] [id number], [place] [address] May, [facility] [address] [id number] [place] [id number] Apr, [facility] [address] [id number] [place] [id number] Apr, [facility] [address] [id number] [place] [id number] Mar, [facility] [address] [id number] [place] [id number] Mar, [facility] [address] [id number] [place] [id number] Feb, [facility] [address] [id number] [place] [id number] Feb, [facility] [address] [id number] [place] [id number] Jan, [facility] [address] [id number] [place] [id number] Jan, [facility] [address] [id number] [place] [id number] Jan, [facility] [address] [id number] [place] [id number] Jan, [facility] [address] [id number] [place] [address] December, [facility] [address] [id number] [place] [id number] December, [facility] [address]00565100[place], [place] [address] Nov, [facility] [address] [id number] [place] [id number] Nov, [facility] [address] [id number] [place] [id number] Nov, [facility] [address] [id number] [place] [id number] Nov, [facility] [address] [id number] [place] [id number] Nov, [facility] [address]00565100[place], [place] [address] Oct, [facility] [address] [id number], [place] [address] Oct, [facility] [address] [id number] [place] [id number] Oct, [facility] [address] [id number] [place] [id number] Oct, [facility] [address] [id number] [place] [id number] Oct, [facility] [address] [id number] [place] [id number] Oct, [facility] [address] [id number] [place] [address]65468[address] Oct, [facility] [place] [address] [id number] [place] [id number] Oct, [facility] [address] [id number] [place] [id number] Oct, [facility] [address]00565100[place], [place] [address] Oct, [facility] [address] [id number] [place] [id number] Sep, [facility] [address] [id number] [place] [id number] Sep, [facility] [address] [id number] [place] [id number] Aug, [facility] [address] [id number] [place] [id number] Aug, [facility] [address]00565100[place], [place] [address] Jul, [facility] [address]00565100[place], [place] [address] Jul, [facility] [address] [place] [id number] [place] [address] Jul, [facility] [id number] [place] [address] Jul, [facility] [id number] [place] [address] Jul, [facility] [address] [id number], [place] [address] Jul, [facility] [id number], [place] [address] Jul, [facility] [id number], [place] [address] Jul, [facility] [id number] [place] [address] Jul, [facility] [address]65100[place], [place] [address] Jul, [facility] [id number] [place] [address] Jul, [facility] [id number] [place] [address] Jul, [facility] [address]65100[place], [place] [address] Jul, [facility] [address] [id number], [place] [address] Jul, IMMUNIZATIONS No Known Immunizations SOCIAL HISTORY [...] Surgical History Left eye retinal eye repair ([facility]) 06/2014 Surgical History amputation, toe-right third toe ([facility]) 2013 Surgical History Right eye retinal eye repair ([facility]) 09/2014 Surgical History heart cath with [...]
--- OUTSIDE RECORDS SUMMARY | 2019-04-03 06:28 | XMS REPORT ---
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 Active 342879478 Problem 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 Active 199568072 Problem Type 2 diabetes mellitus with diabetic polyneuropathy E11.42 Active 871493521 Problem Hypercholesterolemia E78.0 Active 39231281 Problem Fatigue, unspecified type R53.83 Active 23311671 Problem Personal history of carotid stenosis Z86.79 Active 268084303 Problem Uses walker Z99.89 Active 768593753 Problem Type 2 diabetes mellitus with diabetic neuropathy E11.40 Active 67551097 Problem Aphasia R47.01 Active 05815441 Problem S/P coronary artery stent placement Z95.5 Active 710579875 Problem Type 2 diabetes mellitus with diabetic retinopathy, macular edema presence unspecified, with unspecified retinopathy severity E11.319 Active 16408930 Problem Osteomyelitis of right foot, unspecified chronicity M86.9 Active 15482334 Problem CKD (chronic kidney disease), stage 3 (moderate) N18.3 Active 549502641 Problem Essential hypertension I10 Active 94940730 Problem GERD without esophagitis K21.9 Active 459110595 Problem Insulin long-term use Z79.4 Active 807048873 Problem CKD (chronic kidney disease) stage 3, GFR 30-59 ml/min N18.3 Active 854262650 Problem Type 2 diabetes mellitus with diabetic peripheral angiopathy without gangrene E11.51 Active 638155178 Problem Chronic kidney disease, unspecified N18.9 Active 132670515 Problem Coronary artery disease involving [place] coronary artery of [place] heart without angina pectoris I25.10 Active 3271032836048 Problem Mixed hyperlipidemia E78.2 Active 376895477 Problem Hyperlipidemia, unspecified hyperlipidemia E78.5 Active 44114900 Problem Obesity (BMI 30.0-34.9) E66.9 Active 128310877220419 Problem Chronic obstructive pulmonary disease, unspecified COPD type J44.9 Active 94466827 Problem Frequent falls R29.6 Active 900510807 Problem Peripheral vascular disease I73.9 Active 970545814 Problem Chronic diarrhea K52.9 Active 395895072 Problem Other chronic pain G89.29 Active 30274256 Problem Full incontinence of feces R15.9 Active 007472278892438 Problem Major depressive disorder, single episode, mild F32.0 Active 16631729 Problem Pain in left shoulder M25.512 Active 11087185 Problem Ulcer of left foot, unspecified ulcer stage L97.529 Active 33652242 Problem Chronic pain syndrome G89.4 Active 013146812 Problem Diabetes type 2, uncontrolled E11.65 Active 149289226 Problem High risk medication use Z79.899 Active 092435003 Problem Fecal urgency R15.2 Active 58683490 Problem Functional diarrhea K59.1 Active 32314965 Problem Type 2 diabetes mellitus with foot ulcer E11.621 Active 314775932 Problem Mixed stress and urge urinary incontinence N39.46 Active 493498684 Problem Chronic fatigue R53.82 Active 60396855 ALLERGIES No Information ENCOUNTERS Encounter Location Date Diagnosis [facility] [id number] [place] [address] [id number] Jan, Type 2 diabetes mellitus with diabetic neuropathy E11.40 [address] [id number] [place] [address] [id number] December, Bilateral low back pain without sciatica M54.5 [facility] [id number] [place] [address] [id number] Nov, Bilateral low back pain without sciatica M54.5 [address] [place] [address] [id number] Oct, Bilateral low back pain without sciatica M54.5 [id number] [id number] Oct, [facility] [place] [id number] [place] [phone] Oct, [facility] [id number] [place] [address] [id number] Sep, Other chronic pain G89.29 and Diabetes type 2, uncontrolled E11.65 [facility] [address] [id number] [place] [id number] Sep, Type 2 diabetes mellitus with diabetic neuropathy E11.40 ; Atherosclerosis of [place] artery of both lower extremities, with unspecified presence of clinical manifestation I70.203 and Ulcer of left foot, unspecified ulcer stage L97.529 [facility] [id number] [place] [address] [id number] Sep, Bilateral low back pain without sciatica M54.5 [facility] [id number] [place] [address] [id number] Aug, Bilateral low back pain without sciatica M54.5 [facility] [id number] [place] [address] [id number] Aug, [facility] [id number] [place] [address] [id number] Aug, Essential hypertension I10 [facility] [id number] [place] [address] [id number] Aug, [facility] [address] [id number] [place] [address] [id number] Jul, [facility] [id number] [place] [address] [id number] Jul, Bilateral low back pain without sciatica M54.5 [facility] [id number] [place] [address] [id number] Jul, Hyperlipidemia, unspecified hyperlipidemia E78.5 [facility] [id number] [place] [address] [id number] Jul, [facility] [id number] [place] [address] [id number] Jul, Type 2 diabetes mellitus with diabetic neuropathy E11.40 [facility] [id number] [place] [address] [id number] Jun, [facility] [address] [id number] Jun, Bilateral low back pain without sciatica M54.5 [facility] [id number] [id number] 14 Jun, 2018 Chronic fatigue R53.82 [facility] [id number][place] [id number] Jun, Type 2 diabetes mellitus with diabetic polyneuropathy E11.42 and Bilateral low back pain without sciatica M54.5 [facility] [id number], [place] [id number] May, Other chronic pain G89.29 [facility] [id number], [place] [id number] May, Diabetes type 2, uncontrolled E11.65 [facility] [place] [address]65[address] [address] 16 May, 2018 Type 2 diabetes mellitus with diabetic neuropathy E11.40 ; Coronary artery disease involving [place] coronary artery of [place] heart without angina pectoris I25.10 and Major depressive disorder, single episode, mild F32.0 [facility] [address] [facility] [id number] [id number] May, [facility] [id number], [place] [id number] May, [facility] [id number], [place] [id number] May, [facility] [id number], [place] [id number] Apr, Other chronic pain G89.[address] [facility] [address] [id number] [id number] 05 Apr, 2018 [facility] [address] [facility] [id number][place] [id number] Apr, Essential hypertension I10 [facility] [id number], [place] [id number] Mar, Other chronic pain G89.29 [facility] [address] [id number][place] [id number] Mar, [facility] [id number] [place] [address] [id number] Feb, Other chronic pain G89.29 [facility] [id number] [place] [address] [id number] Feb, Diabetes type 2, uncontrolled E11.65 ; Type 2 diabetes mellitus with diabetic retinopathy, macular edema presence unspecified, with unspecified retinopathy severity E11.319 and Bilateral low back pain without sciatica M54.5 [facility] [id number] [place] [address] [id number] Feb, [facility] [id number] [place] [address] [id number] Feb, Diabetes type 2, uncontrolled E11.65 [facility] [id number] [place] [address] [id number] Feb, Other chronic pain G89.29 [facility] [id number] [place] [address] [id number] Jan, [facility] [id number] [place] [address] [id number] Jan, [facility] [id number] [place] [address] [id number] Jan, [facility] [id number] [place] [address] [id number] Jan, Other chronic pain G89.29 [facility] [id number] [place] [address] [id number] December, Mixed stress and urge urinary incontinence N39.46 [facility] [id number] [place] [address] [id number] December, Chronic fatigue R53.82 [facility] [id number] [place] [address] [id number] December, Other chronic pain G89.29 [facility] [id number] [place] [address] [id number] December, Diabetes type 2, uncontrolled E11.65 ; [...] type J44.9 and Other chronic pain G89.29 [facility] [place], [facility] [address]00565[address] [address] December, [address] [id number] [place] [address] [id number] December, Medicare annual wellness visit, subsequent Z00.00 ; Type 2 diabetes mellitus with diabetic polyneuropathy E11.42 ; Chronic obstructive pulmonary disease, unspecified COPD type J44.9 ; Depression F32.9 ; Peripheral vascular disease I73.9 ; Coronary artery disease involving [place] coronary artery of [place] heart without angina pectoris I25.10 ; Hypercholesterolemia E78.0 ; GERD without esophagitis K21.9 and Chronic kidney disease, unspecified N18.9 [address] [id number] [place] [address] [id number] December, Mixed stress and urge urinary incontinence N39.46 ; Full incontinence of feces R15.9 ; Fecal urgency R15.2 ; Functional diarrhea K59.1 and Type 2 diabetes mellitus with diabetic neuropathy E11.40 [address] [id number] [place] [address] [id number] Nov, Other chronic pain G89.29 [address] [place] [address] [id number] Oct, [address] [id number] [place] [address] [id number] Oct, [id number] [place] [address] [id number] Oct, Other chronic pain G89.29 [id number] [place] [address] [id number] Sep, Other chronic pain G89.29 [address] [id number] [place] [address] [id number] Aug, CKD (chronic kidney disease), stage 3 (moderate) N18.3 ; Anemia, unspecified type D64.9 and Dilated pore of Ly L70.8 [facility] [id number] [place] [address] [id number] Aug, Other chronic pain G89.29 ; Pain in left shoulder M25.512 ; High risk medication use Z79.899 ; Uses walker Z99.89 ; Diabetes type 2, uncontrolled E11.65 and Depression F32.9 [facility] [id number] [place] [address] [id number] Aug, Chronic diarrhea K52.9 [place] [id number] [place] [address] [id number] Aug, Chronic diarrhea K52.9 ; Type 2 diabetes mellitus with diabetic neuropathy E11.40 ; Diabetes type 2, uncontrolled E11.65 ; Insulin long-term use Z79.4 ; Chronic obstructive pulmonary disease, unspecified COPD type J44.9 ; Chronic pain syndrome G89.4 ; Pain in left shoulder M25.512 ; Uses walker Z99.89 ; S/P coronary artery stent placement Z95.5 ; Mixed hyperlipidemia E78.2 and Essential hypertension I10 [place] [id number] [place] [address] [id number] Aug, [place] [id number] [place] [address] [id number] Jul, Diabetes type 2, uncontrolled E11.65 [place] [id number] [place] [address] [id number] Jul, Diabetes type 2, uncontrolled E11.65 ; Type 2 diabetes mellitus with diabetic neuropathy E11.40 ; Insulin long-term use Z79.4 and Chronic obstructive pulmonary disease, unspecified COPD type J44.9 [address] [place] [address] [id number] Jun, [address] [id number] [place] [address] [id number] Jun, Essential hypertension I10 [address] [id number] [place] [address] [id number] Jun, Essential hypertension I10 [id number] [place] [address] [id number] Jun, Type 2 diabetes mellitus with diabetic neuropathy E11.40 ; Type 2 diabetes mellitus with diabetic polyneuropathy E11.42 ; S/P coronary artery stent placement Z95.5 ; Obesity (BMI 30.0-34.9) E66.9 ; Mixed hyperlipidemia E78.2 ; Frequent falls R29.6 ; Chronic obstructive pulmonary disease, unspecified COPD type J44.9 ; Essential hypertension I10 ; Insulin long-term use Z79.4 and High risk medication use Z79.899 [address] [place] [address] [id number] May, Diarrhea, unspecified type R19.7 ; Type 2 diabetes mellitus with diabetic neuropathy E11.40 ; Chronic obstructive pulmonary disease, unspecified COPD type J44.9 ; S/P coronary artery stent placement Z95.5 ; High risk medication use Z79.899 ; Essential hypertension I10 ; Encounter for administration of vaccine Z23 and Encounter for immunization Z23 [address] [id number] [id number] May, Chronic obstructive pulmonary disease, unspecified COPD type J44.[id number] [place] [address] [id number] May, Type 2 diabetes mellitus with diabetic polyneuropathy E11.42 ; Encounter for immunization Z23 ; Needs flu shot Z23 ; Comprehensive diabetic foot examination, type 2 DM, encounter for E11.9 and Obesity (BMI 30.0-34.9) E66.9 [address] [place] [address] [id number] May, [address] [place] [address] [id number] Apr, [address] [place] [address] [id number] Apr, Essential hypertension I10 and Aphasia R47.01 [address] [place] [address] [id number] Apr, [address] [place] [address] [id number] Apr, Type 2 diabetes mellitus with diabetic neuropathy E11.40 ; Frequent falls R29.6 ; Essential hypertension I10 ; S/P coronary artery stent placement Z95.5 ; High risk medication use Z79.899 ; Hyperlipidemia, unspecified hyperlipidemia E78.5 ; CKD (chronic kidney disease), stage 3 (moderate) N18.3 ; Pain in left shoulder M25.512 and Chronic obstructive pulmonary disease, unspecified COPD type J44.9 [facility] [id number] [place] [address] [id number] Mar, [facility] [address] [id number] Mar, Type 2 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 ; Leg wound, left, initial encounter S81.802A ; Hx of shoulder surgery Z98.890 ; Acute pain of left shoulder M25.512 and Fall, initial encounter W19.XXXA [facility] [address] [id number] Feb, Follow-up exam Z09 ; Hx of shoulder surgery Z98.890 ; Acute pain of left shoulder M25.512 ; Essential hypertension I10 and Leg wound, left, initial encounter S81.802A [facility] [id number] [place] [address] [id number] Feb, [facility] [address] [id number] Feb, [facility] [id number] [place] [address] [id number] Feb, Chronic obstructive pulmonary disease, unspecified COPD type J44.9 [facility] [id number] [place] [address] [id number] Feb, [facility] [id number] [place] [address] [id number] Jan, Generalized weakness R53.1 ; Exertional shortness of breath R06.02 and Fungal rash of trunk B36.9 [facility] [id number] [place] [address] [id number] Jan, [facility] [id number] [place] [address] [id number] Jan, [facility] [address] [id number] Jan, [place] [address] [facility] [id number] [id number] Jan, [address] [place] [address] [id number] December, High risk medication use Z79.899 [id number] [id number] December, Type 2 diabetes mellitus with diabetic neuropathy E11.40 [address] [id number] December, High risk medication use Z79.899 [address]65100[place] [id number] Nov, Diabetes type 2, uncontrolled E11.65 [address] [place] [address] [id number] Nov, Medicare annual wellness visit, initial Z00.00 ; Bilateral low back pain without sciatica M54.5 ; Pain in left shoulder M25.512 ; Chronic pain syndrome G89.4 ; Type 2 diabetes mellitus with diabetic 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 ; High risk medication use Z79.899 and Encounter for immunization Z23 [address]65100[place] [id number] Nov, Type 2 diabetes mellitus with diabetic neuropathy E11.40 ; Coronary artery disease involving [place] coronary artery of [place] heart without angina pectoris I25.10 and CKD (chronic kidney disease), stage 3 (moderate) N18.[address] [id number][place] [id number] Oct, Type 2 diabetes mellitus with diabetic polyneuropathy E11.42 ; Chronic pain syndrome G89.4 ; Chronic obstructive pulmonary disease, unspecified COPD type J44.9 ; Chronic kidney disease, unspecified N18.9 and Rash R21 [address] [id number] [id number] Oct, Type 2 diabetes mellitus with diabetic neuropathy E11.[address] [id number], [place] [id number] Oct, Rash R21 and Impetigo L01.00 [facility] [id number], [place] [id number] Oct, Chronic pain syndrome G89.4 [facility] [id number] [place] [address] [id number] Oct, [facility] [id number] [place] [address] [id number] Sep, Sebaceous cyst L72.3 [facility] [id number] [place] [address] [id number] Sep, Sebaceous cyst L72.3 [facility] [id number] [place] [address] [id number] Sep, Chronic pain syndrome G89.4 ; Pain in left shoulder M25.512 and Effusion of olecranon bursa, left M25.422 [facility] [place] [address]00565100[place] [address] Aug, [facility] [address] [place] [address] [id number] Aug, [place] [id number] [place] [address] [id number] Aug, Mixed hyperlipidemia E78.2 and Chronic kidney disease, unspecified N18.9 [address] [place] [address] [id number] Jul, Type 2 diabetes mellitus with diabetic neuropathy E11.40 ; Essential hypertension I10 and S/P coronary artery stent placement Z95.5 [facility] [address]00565100[place] [id number] Jul, 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 [address]100[place] [id number] Jul, Diabetes type 2, uncontrolled E11.65 ; Essential hypertension I10 and 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 [address]100[place], [place] [id number] Jul, [address] [place] [address] [id number] Jul, [address] [id number] [id number] Jul, [address] [place] [address] [id number] Jul, Chronic obstructive pulmonary disease, unspecified COPD type J44.9 [address] [place] [address] [id number] Jun, CKD (chronic kidney disease), stage 3 (moderate) N18.3 and Anemia, unspecified type D64.9 [address] [place] [address] [id number] Jun, Type 2 diabetes mellitus with diabetic neuropathy E11.40 ; Decreased GFR R94.4 ; CKD (chronic kidney disease), stage 3 (moderate) N18.3 and Decreased hemoglobin R71.0 [address] [id number] [place] [address] [id number] Jun, CKD (chronic kidney disease), stage 3 (moderate) N18.3 and Anemia, unspecified type D64.9 [address] [place] [address] [id number] Jun, Type 2 diabetes mellitus with diabetic neuropathy E11.40 ; Decreased GFR R94.4 and CKD (chronic kidney disease), stage 3 (moderate) N18.3 [address] [place] [address] [id number] Jun, Type 2 diabetes mellitus with diabetic neuropathy E11.40 and Essential hypertension I10 [address] [place] [address] [id number] Jun, [id number] [place] [address] [id number] Jun, [address] [place] [address] [id number] Jun, Type 2 diabetes mellitus with diabetic neuropathy E11.40 ; S/P coronary artery stent placement Z95.5 ; Chronic obstructive pulmonary disease, unspecified COPD type J44.9 ; Essential hypertension I10 ; GERD without esophagitis K21.9 ; Peripheral vascular disease I73.9 ; Mixed hyperlipidemia E78.2 and Hospital discharge follow-up Z09 [address] [id number] [id number] Jun, [facility] [address] [id number], [place] [id number] May, Depression F32.9 and Hyperlipidemia, unspecified hyperlipidemia E78.5 [facility] [place] [address] [id number] [address] May, [facility] [address]005[address]100[place], [place] [id number] May, [facility] [address]65100[place], [place] [id number] May, Essential hypertension I10 ; Chronic pain syndrome G89.4 ; Pain in left shoulder M25.512 ; High risk medication use Z79.899 ; Chronic obstructive pulmonary disease, unspecified COPD type J44.9 ; S/P coronary artery stent placement Z95.5 ; Personal history of carotid stenosis Z86.79 ; Hyperlipidemia, unspecified hyperlipidemia E78.5 ; Decreased GFR R94.4 and Type 2 diabetes mellitus with diabetic polyneuropathy E11.42 [facility] [address] [place] [address] [id number] May, Hemoglobin decreased R71.0 and Decreased GFR R94.4 [place] [id number] [place] [address] [id number] May, Hemoglobin decreased R71.0 and Decreased GFR R94.4 [address] [place] [address] [id number] May, [address]100[place], [place] [id number] May, [address]100[place] [id number] Apr, [address] [place] [address] [id number] Apr, Type 2 diabetes mellitus with foot [...] unspecified hyperlipidemia E78.5 and Essential hypertension I10 [facility] [id number] [place] [address] [id number] Apr, [facility] [id number] [place] [address] [id number] Mar, [facility] [id number] [place] [address] [id number] Mar, [id number] [place] [id number] Mar, [facility] [id number] [place] [address] [id number] Feb, [facility] [id number] [place] [address] [id number] Feb, [facility] [id number] [place] [address] [id number] Feb, [facility] [id number] [place] [address] [id number] Jan, Type 2 diabetes mellitus with diabetic polyneuropathy E11.42 ; Hypercholesterolemia E78.0 ; Chronic pain syndrome G89.4 ; Pain in left shoulder M25.512 and High risk medication use Z79.899 [facility] [id number] [place] [address] [id number] Jan, [id number] [place] [address] [id number] Jan, [facility] [id number] [place] [address] [id number] December, [facility] [id number] [place] [address] [id number] December, [facility] [place] [id number] [place] [address] December, Diabetes type 2, uncontrolled E11.65 ; Type 2 diabetes mellitus with diabetic neuropathy E11.40 ; Peripheral vascular disease I73.9 ; 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 and 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 [facility] [address] [id number] [place] [id number] Nov, [facility] [address] [id number] [place] [id number] Nov, [facility] [address] [id number] [place] [id number] Nov, [facility] [address] [id number] [place] [id number] Nov, Right hip pain M25.551 [facility] [place] [id number] [place] [phone] Nov, [facility] [place] [address] [address] Nov, [facility] [id number] [place] [address] [id number] Nov, Diabetes with neurological manifestations, type II or unspecified type, not stated as uncontrolled 250.60 [facility] [id number] [place] [address] [id number] Nov, [facility] [address] [id number] [place] [address] [id number] Nov, [facility] [id number] [place] [address] [id number] Oct, Diabetes type 2, uncontrolled E11.65 ; Type 2 diabetes mellitus with diabetic neuropathy, unspecified E11.40 and Low back pain M54.5 [facility] [id number] [place] [address] [id number] Oct, [facility] [address] [id number] [id number] Oct, [facility] [address] [id number] [place] [address] [id number] Oct, [facility] [address] [id number] [place] [address] [id number] Sep, [facility] [id number] [place] [address] [id number] Sep, [facility] [place] [id number] [place] [phone] Sep, [facility] [id number][place] [id number] Sep, [facility] [id number] [place] [address] [id number] Sep, [facility] [id number] [place] [address] [id number] Aug, 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 [facility] [id number] [place] [address] [phone] Aug, [facility] [id number] [place] [address] [id number] Aug, Allergic rhinitis due to pollen J30.1 [id number] [place] [address] [id number] Jul, [facility] [id number] [place] [address] [id number] Jul, [facility] [id number] [place] [address] [id number] Jul, [facility] [id number] [place] [address] [id number] Jun, [id number] [place] [address] [id number] Jun, Thumb tendonitis M77.8 and Ringing in ear, bilateral H93.[address] [facility] [address] [id number] [id number] Jun, [facility] [address]00565[address] [id number] May, [facility] [place] [id number] [place] [phone] May, [facility] [place] [id number] [place] [phone] May, Pre-op evaluation Z01.818 ; Encounter for immunization Z23 ; Type 2 diabetes mellitus with diabetic peripheral angiopathy without gangrene E11.51 ; Insulin long-term use Z79.4 ; Type 2 diabetes mellitus with foot ulcer E11.621 ; Peripheral vascular disease I73.9 ; Coronary artery disease involving [place] coronary artery of [place] heart without angina pectoris I25.10 ; S/P coronary artery stent placement Z95.5 ; Osteomyelitis of right foot, unspecified chronicity M86.9 and Chronic obstructive pulmonary disease, unspecified COPD type J44.9 [facility] [place] [id number] [place] [phone] May, [facility] [address] [id number] May, [address] [id number] May, Diabetes type 2, uncontrolled E11.65 ; Encounter for immunization Z23 ; Osteopenia M85.80 and Allergic rhinitis due to pollen J30.1 [facility] [id number] [place] [address] [id number] May, Lumbago 724.2 [facility] [id number] [place] [address] [id number] Apr, [facility] [id number] [place] [address] [id number] Apr, [facility] [id number] [place] [address] [id number] Apr, [facility] [id number] [place] [address] [id number] Apr, [facility] [place] [id number] [place] [phone] Mar, [facility] [id number] [place] [address] [id number] Mar, [facility] [id number] [place] [address] [id number] Mar, [facility] [id number] [place] [address] [id number] Mar, [facility] [id number] [place] [address] [id number] Mar, [facility] [place] [id number] [place] [phone] Mar, [facility] [address] [id number][place] [id number] Mar, [facility] [address] [id number] [place] [id number] Mar, Diabetes with neurological manifestations, type II or unspecified type, not stated as uncontrolled 250.60 and Severe obesity (BMI 35.0-35.9 with comorbidity) 278.01 [facility] [address] [id number] [place] [address] [id number] Mar, [facility] [id number] [place] [phone] Mar, [facility] [id number] [place] [phone] Feb, [facility] [address] [id number] [place] [address] [id number] Feb, [facility] [address] [id number] [place] [address] [id number] Feb, [facility] [address] [id number] [place] [id number] Feb, Diabetes with neurological manifestations, type II or unspecified type, not stated as uncontrolled 250.60 [facility] [address] [id number] [place] [id number] Feb, [facility] [place] [address]00565100[place] [address] Feb, [facility] [address] [id number], [place] [id number] Feb, [facility] [address] [id number] [place] [id number] Feb, Follow up V67.9 ; Diabetes with neurological manifestations, type II or unspecified type, not stated as uncontrolled 250.60 and Congestive heart failure 428.0 [facility] [address] [id number] [place] [id number] Jan, [facility] [address] [id number][place] [id number] Jan, [facility] [address] [id number], [place] [id number] Jan, [facility] [id number], [place] [id number] December, Otitis media with effusion 381.4 ; Left arm numbness 782.0 and Osteoporosis 733.00 [facility] [address] [id number] [id number] December, [facility] [id number], [place] [id number] Nov, [facility] [id number], [place] [id number] Nov, Serous otitis media 381.4 and Lumbago 724.2 [facility] [id number] [place] [phone] Nov, [facility] [id number] [place] [phone] Nov, [facility] [id number], [place] [id number] Oct, [facility] [id number] [place] [phone] Oct, [facility] [id number], [place] [id number] Oct, [facility] [address]00565100[place] [address] Oct, [facility] [id number], [place] [id number] Oct, [facility] [place] [facility] [address]00565100[place] [address] Oct, [facility] [place] [facility] [id number] [place] [phone] Sep, [facility] [place] [facility] [address]00565100[place] [address] Sep, [facility] [address] [id number], [place] [id number] Sep, [facility] [place] [facility] [address] [facility] [id number] [place] [address] Sep, [facility] [address] [facility] [id number] [place] [id number] Aug, [facility] [place] [facility] [address] [facility] [id number] [place] [address] Aug, [facility] [address] [facility] [id number], [place] [id number] Aug, [facility] [place] [facility] [address] [facility] [id number] [place] [address] Aug, [facility] [address] [facility] [id number], [place] [id number] Jul, [facility] [place] [facility] [address] [facility] [id number] [place] [address] Jul, [facility] [address] [facility] [id number], [place] [id number] Jul, [facility] [place] [facility] [address] [facility] [id number] [place] [address] Jul, [facility] [address] [facility] [id number], [place] [id number] Jul, [facility] [place] [facility] [address] [facility] [id number] [place] [address] Jul, [facility] [address] [facility] [id number], [place] [id number] Jun, [facility] [place] [facility] [address] [facility] [id number] [place] [address] Jun, [facility] [address] [facility] [id number], [place] [id number] May, [facility] [place] [facility] [address] [facility] [id number] [place] [address] May, [facility] [address] [facility] [id number], [place] [id number] May, [facility] [place] [facility] [address] [facility] [id number] [place] [address] May, [facility] [address] [id number], [place] [id number] May, [facility] [place] [facility] [address] [facility] [id number] [place] [address] May, [facility] [address] [id number], [place] [id number] May, [facility] [address] [facility] [id number], [place] [id number] May, [facility] [place] [facility] [address] [facility] [id number] [place] [address] May, [facility] [place] [facility] [address] [facility] [id number] [place] [address] May, [facility] [address] [facility] [id number], [place] [id number] May, [facility] [place] [facility] [address]00565100[place] [address] May, [facility] [place] [facility] [address]00565100[place] [address] Apr, [facility] [address] [facility] [id number], [place] [id number] Apr, [facility] [place] [facility] [address] [id number] [address] Apr, [facility] [address] [facility] [id number], [place] [id number] Apr, [facility] [address] [facility] [id number], [place] [id number] Apr, [facility] [place] [facility] [address] [facility] [id number] [place] [address] Apr, [facility] [place] [facility] [address] [facility] [id number] [place] [address] Apr, [facility] [address] [facility] [id number], [place] [id number] Apr, [facility] [place] [facility] [address] [facility] [id number] [place] [address] Apr, [facility] [address] [id number] [place] [id number] Apr, [facility] [place] [facility] [address] [facility] [id number] [place] [address] Apr, [facility] [address] [id number] [place] [id number] Apr, [facility] [place] [facility] [address] [facility] [id number] [place] [address] Apr, [facility] [address] [id number] [place] [id number] Apr, [facility] [place] [facility] [address] [facility] [id number] [place] [address] Apr, [facility] [address] [id number] [place] [id number] Apr, [facility] [place] [facility] [address] [facility] [id number] [place] [address] Apr, [facility] [address] [id number] [place] [id number] Apr, [facility] [place] [facility] [address] [facility] [id number] [place] [address] Apr, [facility] [address] [facility] [id number] [place] [id number] Mar, [facility] [place] [facility] [address] [facility] [id number] [place] [address] Mar, [facility] [address] [id number] [place] [id number] Mar, [facility] [address] [id number] [place] [id number] Mar, [facility] [place] [facility] [address] [facility] [id number] [place] [address] Mar, [facility] [place] [facility] [address] [facility] [id number] [place] [address] Mar, [facility] [address] [id number] [place] [id number] Mar, [facility] [place] [facility] [address] [id number] [place] [address] Mar, [facility] [address] [id number] [place] [id number] Mar, [facility] [place] [facility] [address] [facility] [id number] [place] [address] Mar, [facility] [address] [id number] [place] [id number] Mar, [facility] [place] [facility] [address] [id number] [place] [address] Mar, [facility] [address] [id number] [place] [id number] Mar, [facility] [place] [facility] [address] [facility] [id number] [place] [address] Mar, [facility] [address] [id number] [place] [id number] Mar, [facility] [place] [facility] [address] [facility] [id number] [place] [address] Mar, [facility] [address] [id number] [place] [id number] Mar, [facility] [place] [facility] [address] [facility] [id number] [place] [address] Mar, [facility] [address] [id number] [place] [id number] Mar, [facility] [place] [facility] [address] [facility] [id number] [place] [address] Mar, [facility] [address] [id number] [place] [id number] Feb, [facility] [place] [facility] [address] [facility] [id number] [place] [address] Feb, [facility] [address] [id number] [place] [id number] Feb, [facility] [place] [facility] [address] [facility] [id number] [place] [address] Feb, [facility] [address] [id number] [place] [id number] Feb, [facility] [place] [facility] [address] [id number] [place] [address] Feb, [facility] [address] [id number] [place] [id number] Feb, [facility] [place] [facility] [address] [id number] [place] [address] Feb, [facility] [address] [id number] [place] [id number] Feb, [facility] [place] [facility] [address] [facility] [id number] [place] [address] Feb, [facility] [address] [id number] [place] [id number] Feb, [facility] [place] [facility] [address] [facility] [id number] [place] [address] Feb, [facility] [address] [id number] [place] [id number] Feb, [facility] [place] [facility] [address] [facility] [id number] [place] [address] Feb, [facility] [address] [id number] [place] [id number] Feb, [facility] [place] [facility] [address] [facility] [id number] [place] [address] Feb, [facility] [address] [id number] [place] [id number] Feb, [facility] [place] [facility] [address] [id number] [place] [address] Feb, [facility] [address] [id number] [place] [id number] Feb, [facility] [address] [id number] [place] [id number] Feb, [facility] [place] [facility] [address] [facility] [id number] [place] [address] Feb, [facility] [place] [facility] [address] [id number] [place] [address] Feb, [facility] [address] [id number] [place] [id number] Feb, [facility] [place] [facility] [address] [id number] [place] [address] Feb, [facility] [address] [id number] [place] [id number] Feb, [facility] [place] [facility] [address] [id number] [place] [address] Feb, [facility] [address] [id number] [place] [id number] Feb, [facility] [place] [facility] [address] [facility] [id number] [place] [address] Feb, [facility] [address] [facility] [id number] [place] [id number] Jan, [facility] [place] [facility] [address] [id number] [place] [address] Jan, [facility] [place] [facility] [address] [id number] [place] [address] Jan, [facility] [place] [facility] [address] [facility] [id number] [place] [address] Jan, [facility] [place] [facility] [address] [facility] [id number] [place] [address] Jan, [facility] [place] [facility] [address] [id number] [place] [address] Jan, [facility] [address] [id number] [place] [id number] Jan, [facility] [place] [facility] [address] [id number] [place] [address] Jan, [facility] [place] [facility] [address] [id number] [place] [address] Jan, [facility] [place] [facility] [address] [id number] [place] [address] Jan, [facility] [address] [id number] [place] [id number] Jan, [facility] [address] [id number] [place] [id number] Jan, [facility] [place] [facility] [address] [facility] [id number] [place] [address] Jan, [facility] [place] [facility] [address] [id number] [place] [address] Jan, [facility] [address] [id number] [place] [id number] Jan, [facility] [address] [id number] [place] [id number] Jan, [facility] [place] [facility] [address] [facility] [id number] [place] [address] Jan, [facility] [place] [facility] [address] [facility] [id number] [place] [address] Jan, [facility] [place] [facility] [address] [facility] [id number] [place] [address] Jan, [facility] [address] [facility] [id number] [id number] December, [facility] [place] [facility] [address] [facility] [id number] [place] [address] December, [facility] [place] [facility] [address] [facility] [id number] [place] [address] December, [facility] [address] [id number] [place] [id number] December, [facility] [place] [facility] [address] [facility] [id number] [place] [address] December, [facility] [address] [id number] [place] [id number] December, [facility] [place] [facility] [address] [facility] [id number] [place] [address] December, [facility] [address] [id number] [place] [id number] December, [facility] [place] [facility] [address] [facility] [id number] [place] [address] December, [facility] [address] [facility] [id number] [place] [id number] Nov, [facility] [place] [facility] [address] [facility] [id number] [place] [address] Nov, [facility] [address] [facility] [id number][place] [id number] Nov, [facility] [place] [facility] [address] [facility] [id number] [place] [address] Nov, [facility] [place] [facility] [address] [id number] [place] [address] Nov, [facility] [place] [facility] [id number] [place] [address] Nov, [facility] [place] [facility] [id number] [address] Oct, [facility] [address] [facility] [id number][place] [id number] Oct, [facility] [place] [facility] [id number] [address] Oct, [facility] [address] [id number] [id number] Oct, [facility] [place] [facility] [address] [facility] [id number] [place] [address] Oct, [facility] [address] [facility] [id number] [place] [id number] Sep, [facility] [place] [facility] [address] [facility] [id number] [place] [address] Sep, [facility] [address] [facility] [id number][place] [id number] Aug, [facility] [place] [facility] [address] [id number] [address] Aug, [facility] [address] [id number] [place] [id number] Aug, [facility] [place] [facility] [address] [facility] [id number] [place] [address] Aug, [facility] [place] [facility] [address] [facility] [id number] [place] [address] Aug, [facility] [address] [address] [id number][place] [id number] Aug, [facility] [place] [facility] [address] [facility] [id number] [place] [address] Aug, [facility] [place] [facility] [address] [facility] [id number] [place] [address] Aug, [facility] [place] [address] [facility] [id number] [place] [id number] Aug, [facility] [place] [facility] [address] [facility] [id number] [place] [address] Aug, [facility] [place] [address] [facility] [id number][place] [id number] Jul, [facility] [place] [facility] [address] [facility] [id number] [place] [address] Jul, [facility] [address] [id number][place] [id number] Jul, [facility] [place] [facility] [address] [facility] [id number] [place] [address] Jul, [facility] [place] [address] [id number][place] [id number] Jul, [facility] [place] [facility] [address] [facility] [id number] [place] [address] Jul, [facility] [address] [facility] [id number][place] [id number] Jul, [facility] [place] [facility] [address] [facility] [id number] [place] [address] Jul, [facility] [address] [id number] [place] [id number] Jun, [facility] [address] [id number] [place] [address] Jun, [facility] [place] [address] [id number] [place] [id number] Jun, [facility] [address] [facility] [id number] [place] [address] Jun, [facility] [address] [facility] [id number] [place] [address] Jun, [facility] [address] [facility] [id number] [place] [address] Jun, [facility] [address] [id number], [place] [id number] Apr, [facility] [address] [id number] [place] [id number] Mar, [facility] [address] [id number][place] [id number] Mar, [facility] [address] [id number] [place] [id number] Feb, [facility] [address] [id number] [place] [id number] Feb, [facility] [address] [id number] [place] [id number] Feb, [facility] [address] [id number][place] [id number] December, [facility] [address] [id number][place] [id number] December, [facility] [address] [id number] [place] [address] December, [facility] [address] [id number] [place] [id number] December, [facility] [address] [id number] [place] [id number] December, [facility] [address] [id number][place] [id number] Nov, [facility] [address] [id number] [place] [id number] Nov, [facility] [address] [id number] [place] [id number] Nov, [facility] [address] [id number] [place] [id number] Oct, [facility] [address] [id number] [place] [id number] Sep, [facility] [address] [id number] [place] [id number] Aug, [facility] [address] [id number] [place] [address] Aug, [facility] [address] [id number] [place] [id number] Aug, [facility] [address] [id number] [place] [id number] Jul, [facility] [address] [facility] [id number] [place] [address] Jul, [facility] [address] [id number] [place] [id number] Jul, [facility] [place] [facility] [address] [facility] [id number] [place] [address] Jul, [facility] [address] [id number] [place] [id number] Jun, [facility] [place] [facility] [address] [facility] [id number] [place] [address] Jun, [facility] [address] [id number], [place] [id number] May, [facility] [place] [facility] [address] [facility] [id number] [place] [address] May, [facility] [address] [id number], [place] [id number] May, [facility] [place] [facility] [address] [facility] [id number] [place] [address] May, [facility] [place] [address] [id number] [place] [id number] Apr, [facility] [place] [address] [id number] [place] [id number] Apr, [facility] [place] [address] [id number] [place] [id number] Mar, [facility] [place] [address] [id number] [place] [id number] Mar, [facility] [place] [address] [id number] [place] [id number] Feb, [facility] [place] [address] [id number] [place] [id number] Feb, [facility] [place] [address] [id number] [place] [id number] Jan, [facility] [place] [address] [id number] [place] [id number] Jan, [facility] [place] [address] [id number] [place] [id number] Jan, [facility] [place] [address] [id number] [place] [id number] Jan, [facility] [address] [id number] [place] [id number] December, [facility] [place] [address] [id number] [place] [id number] December, [facility] [address]00565100[place] [address] Nov, [facility] [address] [id number] [place] [id number] Nov, [facility] [place] [address] [id number] [place] [id number] Nov, [facility] [place] [address] [id number] [place] [id number] Nov, [facility] [place] [address] [id number] [place] [id number] Nov, [facility] [address]00565100[place] [address] Oct, [facility] [address] [id number] [address] Oct, [facility] [place] [address] [id number] [place] [id number] Oct, [facility] [place] [address] [id number] [place] [address] Oct, [facility] [place] [address] [id number] [place] [id number] Oct, [facility] [place] [address] [id number] [place] [id number] Oct, [facility] [place] [address] [id number] [place] [id number] Oct, [facility] [place] [address] [id number] [place] [id number] Oct, [facility] [place] [address] [id number] [place] [id number] Oct, [facility] [address]00565100[place] [address] Oct, [facility] [place] [address] [id number] [place] [id number] Sep, [facility] [place] [address] [id number] [place] [id number] Sep, [facility] [place] [address] [id number] [place] [id number] Aug, [facility] [place] [address] [id number] [place] [id number] Aug, [facility] [address]00565100[place] [address] Jul, [facility] [address]00565100[place] [address] Jul, [facility] [id number] [place] [address] Jul, [facility] [id number] [place] [address] Jul, [facility] [id number] [place] [address] Jul, [facility] [place] [address] [id number] [address] Jul, [facility] [place] [address]00565100[place] [address] Jul, [facility] [place] [address]00565100[place] [address] Jul, [facility] [place] [id number] [place] [address] Jul, [facility] [place] [address]00565100[place] [address] Jul, [facility] [place] [id number] [place] [address] Jul, [facility] [place] [id number] [place] [address] Jul, [facility] [place] [address]00565100[place] [address] Jul, [facility] [place] [address] [id number] [address] Jul, IMMUNIZATIONS No Known Immunizations SOCIAL HISTORY [...] fu by card Medical History 04/06/17 Dr. Lasron FU. Asymptomatic no need for heart cath, [...] Surgical History Left eye retinal eye repair ([facility]) 06/2014 Surgical History amputation, toe-right third toe ([facility]) 2013 Surgical History Right eye retinal eye repair ([facility]) 09/2014 Surgical History heart cath [...]
--- OUTSIDE RECORDS SUMMARY | 2019-04-03 06:29 | XMS REPORT ---
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 Active 149286959 Problem 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 Active 504052130 Problem Type 2 diabetes mellitus with diabetic polyneuropathy E11.42 Active 182511445 Problem Hypercholesterolemia E78.0 Active 76760028 Problem Fatigue, unspecified type R53.83 Active 71910470 Problem Personal history of carotid stenosis Z86.79 Active 907624118 Problem Uses walker Z99.89 Active 839976351 Problem Type 2 diabetes mellitus with diabetic neuropathy E11.40 Active 40566385 Problem Aphasia R47.01 Active 22761618 Problem S/P coronary artery stent placement Z95.5 Active 110353396 Problem Type 2 diabetes mellitus with diabetic retinopathy, macular edema presence unspecified, with unspecified retinopathy severity E11.319 Active 76694301 Problem Osteomyelitis of right foot, unspecified chronicity M86.9 Active 66506281 Problem CKD (chronic kidney disease), stage 3 (moderate) N18.3 Active 257534720 Problem Essential hypertension I10 Active 08281832 Problem GERD without esophagitis K21.9 Active 417677971 Problem Insulin long-term use Z79.4 Active 526972860 Problem CKD (chronic kidney disease) stage 3, GFR 30-59 ml/min N18.3 Active 787003382 Problem Type 2 diabetes mellitus with diabetic peripheral angiopathy without gangrene E11.51 Active 883638723 Problem Chronic kidney disease, unspecified N18.9 Active 039268289 Problem Coronary artery disease involving umkumiut coronary artery of umkumiut heart without angina pectoris I25.10 Active 7840772040826 Problem Mixed hyperlipidemia E78.2 Active 273611420 Problem Hyperlipidemia, unspecified hyperlipidemia E78.5 Active 62653582 Problem Obesity (BMI 30.0-34.9) E66.9 Active 406800241289885 Problem Chronic obstructive pulmonary disease, unspecified COPD type J44.9 Active 61617066 Problem Frequent falls R29.6 Active 507100238 Problem Peripheral vascular disease I73.9 Active 972169081 Problem Chronic diarrhea K52.9 Active 483560557 Problem Other chronic pain G89.29 Active 23744272 Problem Full incontinence of feces R15.9 Active 319013891914011 Problem Major depressive disorder, single episode, mild F32.0 Active 67771489 Problem Pain in left shoulder M25.512 Active 82735250 Problem Ulcer of left foot, unspecified ulcer stage L97.529 Active 63121330 Problem Chronic pain syndrome G89.4 Active 186355123 Problem Diabetes type 2, uncontrolled E11.65 Active 682755398 Problem High risk medication use Z79.899 Active 134976986 Problem Fecal urgency R15.2 Active 41685824 Problem Functional diarrhea K59.1 Active 66175284 Problem Type 2 diabetes mellitus with foot ulcer E11.621 Active 091906163 Problem Mixed stress and urge urinary incontinence N39.46 Active 904149454 Problem Chronic fatigue R53.82 Active 49129388 ALLERGIES No Information ENCOUNTERS Encounter Location Date Diagnosis [facility] [id number] [place] [address] [id number] Jan, Type 2 diabetes mellitus with diabetic neuropathy E11.40 [id number] [place] [address] [id number] December, Bilateral low back pain without sciatica M54.5 [facility] [id number] [place] [address] [id number] Nov, Bilateral low back pain without sciatica M54.5 [address] [place] [address] [id number] Oct, Bilateral low back pain without sciatica M54.5 [place] [id number] [id number] Oct, [facility] [id number] [place] [address] Oct, [facility] [id number] [place] [address] [id number] Sep, Other chronic pain G89.29 and Diabetes type 2, uncontrolled E11.65 [facility] [address] [id number] [place] [id number] Sep, Type 2 diabetes mellitus with diabetic neuropathy E11.40 ; Atherosclerosis of umkumiut artery of both lower extremities, with unspecified presence of clinical manifestation I70.203 and Ulcer of left foot, unspecified ulcer stage L97.529 [facility] [id number] [place] [address] [id number] Sep, Bilateral low back pain without sciatica M54.5 [facility] [id number] [place] [address] [id number] Aug, Bilateral low back pain without sciatica M54.5 [facility] [id number] [place] [address] [id number] Aug, [facility] [id number] [place] [address] [id number] Aug, Essential hypertension I10 [facility] [id number] [place] [address] [id number] Aug, [facility] [id number] [place] [address] [id number] Jul, [facility] [id number] [place] [address] [id number] Jul, Bilateral low back pain without sciatica M54.5 [facility] [id number] [place] [address] [id number] Jul, Hyperlipidemia, unspecified hyperlipidemia E78.5 [facility] [id number] [place] [address] [id number] Jul, [facility] [id number] [place] [address] [id number] Jul, Type 2 diabetes mellitus with diabetic neuropathy E11.40 [facility] [id number] [place] [address] [id number] Jun, [facility] [address] [id number] Jun, Bilateral low back pain without sciatica M54.5 [facility] [id number] [id number] 14 Jun, 2018 Chronic fatigue R53.82 [facility] [id number], [place] [id number] Jun, Type 2 diabetes mellitus with diabetic polyneuropathy E11.42 and Bilateral low back pain without sciatica M54.5 [facility] [id number][place] [id number] May, Other chronic pain G89.29 [facility] [id number], [place] [id number] May, Diabetes type 2, uncontrolled E11.65 [facility] [address]005[address], [place] [address] 16 May, 2018 Type 2 diabetes mellitus with diabetic neuropathy E11.40 ; Coronary artery disease involving umkumiut coronary artery of umkumiut heart without angina pectoris I25.10 and Major depressive disorder, single episode, mild F32.0 [facility] [address] [facility] [id number][place] [id number] May, [facility] [id number], [place] [id number] May, [facility] [id number], [place] [id number] May, [facility] [id number], [place] [id number] Apr, Other chronic pain G89.29 [facility] [address] [id number] [id number] 05 Apr, 2018 [facility] [address] [facility] [id number][place] [id number] Apr, Essential hypertension I10 [facility] [id number], [place] [id number] Mar, Other chronic pain G89.29 [facility] [address] [id number][place] [id number] Mar, [facility] [id number] [place] [address] [id number] Feb, Other chronic pain G89.29 [facility] [id number] [place] [address] [id number] Feb, Diabetes type 2, uncontrolled E11.65 ; Type 2 diabetes mellitus with diabetic retinopathy, macular edema presence unspecified, with unspecified retinopathy severity E11.319 and Bilateral low back pain without sciatica M54.5 [facility] [id number] [place] [address] [id number] Feb, [facility] [id number] [place] [address] [id number] Feb, Diabetes type 2, uncontrolled E11.65 [facility] [id number] [place] [address] [id number] Feb, Other chronic pain G89.29 [facility] [id number] [place] [address] [id number] Jan, [facility] [id number] [place] [address] [id number] Jan, [facility] [id number] [place] [address] [id number] Jan, [facility] [id number] [place] [address] [id number] Jan, Other chronic pain G89.29 [facility] [id number] [place] [address] [id number] December, Mixed stress and urge urinary incontinence N39.46 [facility] [id number] [place] [address] [id number] December, Chronic fatigue R53.82 [facility] [id number] [place] [address] [id number] December, Other chronic pain G89.29 [facility] [id number] [place] [address] [id number] December, Diabetes type 2, uncontrolled E11.65 ; [...] type J44.9 and Other chronic pain G89.29 [facility] [address]00565100[place], [place] [address] December, [place] [id number] [place] [address] [id number] December, Medicare annual wellness visit, subsequent Z00.00 ; Type 2 diabetes mellitus with diabetic polyneuropathy E11.42 ; Chronic obstructive pulmonary disease, unspecified COPD type J44.9 ; Depression F32.9 ; Peripheral vascular disease I73.9 ; Coronary artery disease involving umkumiut coronary artery of umkumiut heart without angina pectoris I25.10 ; Hypercholesterolemia E78.0 ; GERD without esophagitis K21.9 and Chronic kidney disease, unspecified N18.9 [place] [id number] [place] [address] [id number] December, Mixed stress and urge urinary incontinence N39.46 ; Full incontinence of feces R15.9 ; Fecal urgency R15.2 ; Functional diarrhea K59.1 and Type 2 diabetes mellitus with diabetic neuropathy E11.40 [place] [id number] [place] [address] [id number] Nov, Other chronic pain G89.29 [address] [place] [address] [id number] Oct, [place] [id number] [place] [address] [id number] Oct, [place] [id number] [place] [address] [id number] Oct, Other chronic pain G89.29 [place] [id number] [place] [address] [id number] Sep, Other chronic pain G89.29 [place] [id number] [place] [address] [id number] Aug, CKD (chronic kidney disease), stage 3 (moderate) N18.3 ; Anemia, unspecified type D64.9 and Dilated pore of Ly L70.8 [facility] [id number] [place] [address] [id number] Aug, Other chronic pain G89.29 ; Pain in left shoulder M25.512 ; High risk medication use Z79.899 ; Uses walker Z99.89 ; Diabetes type 2, uncontrolled E11.65 and Depression F32.9 [facility] [id number] [place] [address] [id number] Aug, Chronic diarrhea K52.9 [place] [id number] [place] [address] [id number] Aug, Chronic diarrhea K52.9 ; Type 2 [...] E78.2 and Essential hypertension I10 [place] [id number] [place] [address] [id number] Aug, [place] [id number] [place] [address] [id number] Jul, Diabetes type 2, uncontrolled E11.65 [place] [id number] [place] [address] [id number] Jul, Diabetes type 2, uncontrolled E11.65 ; Type 2 diabetes mellitus with diabetic neuropathy E11.40 ; Insulin long-term use Z79.4 and Chronic obstructive pulmonary disease, unspecified COPD type J44.9 [address] [place] [address] [id number] Jun, [place] [id number] [place] [address] [id number] Jun, Essential hypertension I10 [place] [id number] [place] [address] [id number] Jun, Essential hypertension I10 [place] [id number] [place] [address] [id number] Jun, Type 2 diabetes mellitus with diabetic neuropathy E11.40 ; Type 2 diabetes mellitus with diabetic polyneuropathy E11.42 ; S/P coronary artery stent placement Z95.5 ; Obesity (BMI 30.0-34.9) E66.9 ; Mixed hyperlipidemia E78.2 ; Frequent falls R29.6 ; Chronic obstructive pulmonary disease, unspecified COPD type J44.9 ; Essential hypertension I10 ; Insulin long-term use Z79.4 and High risk medication use Z79.899 [address] [place] [address] [id number] May, Diarrhea, unspecified type R19.7 ; Type 2 diabetes mellitus with diabetic neuropathy E11.40 ; Chronic obstructive pulmonary disease, unspecified COPD type J44.9 ; S/P coronary artery stent placement Z95.5 ; High risk medication use Z79.899 ; Essential hypertension I10 ; Encounter for administration of vaccine Z23 and Encounter for immunization Z23 [address] [id number] [place] [id number] May, Chronic obstructive pulmonary disease, unspecified COPD type J44.[id number] [place] [address] [id number] May, Type 2 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 ; Encounter for immunization Z23 ; Needs flu shot Z23 ; Comprehensive diabetic foot examination, type 2 DM, encounter for E11.9 and Obesity (BMI 30.0-34.9) E66.9 [address] [place] [address] [id number] May, [address] [place] [address] [id number] Apr, [address] [place] [address] [id number] Apr, Essential hypertension I10 and Aphasia R47.[address] [place] [address] [id number] Apr, [address] [place] [address] [id number] Apr, Type 2 diabetes mellitus with diabetic neuropathy E11.40 ; Frequent falls R29.6 ; Essential hypertension I10 ; S/P coronary artery stent placement Z95.5 ; High risk medication use Z79.899 ; Hyperlipidemia, unspecified hyperlipidemia E78.5 ; CKD (chronic kidney disease), stage 3 (moderate) N18.3 ; Pain in left shoulder M25.512 and Chronic obstructive pulmonary disease, unspecified COPD type J44.9 [facility] [id number] [place] [address] [id number] Mar, [facility] [address] [id number] Mar, Type 2 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 ; Leg wound, left, initial encounter S81.802A ; Hx of shoulder surgery Z98.890 ; Acute pain of left shoulder M25.512 and Fall, initial encounter W19.XXXA [facility] [address] [id number] Feb, Follow-up exam Z09 ; Hx of shoulder surgery Z98.890 ; Acute pain of left shoulder M25.512 ; Essential hypertension I10 and Leg wound, left, initial encounter S81.802A [facility] [id number] [place] [address] [id number] Feb, [facility] [address] [id number] Feb, [facility] [id number] [place] [address] [id number] Feb, Chronic obstructive pulmonary disease, unspecified COPD type J44.9 [facility] [id number] [place] [address] [id number] Feb, [facility] [id number] [place] [address] [id number] Jan, Generalized weakness R53.1 ; Exertional shortness of breath R06.02 and Fungal rash of trunk B36.9 [facility] [id number] [place] [address] [id number] Jan, [facility] [id number] [place] [address] [id number] Jan, [facility] [address] [id number] Jan, [place] [address] [facility] [id number] [id number] Jan, [address] [place] [address] [id number] December, High risk medication use Z79.899 [id number] [id number] December, Type 2 diabetes mellitus with diabetic neuropathy E11.40 [address]100[place] [id number] December, High risk medication use Z79.899 [address]00565100[place] [id number] Nov, Diabetes type 2, uncontrolled E11.65 [address] [place] [address] [id number] Nov, Medicare annual wellness visit, initial Z00.00 ; Bilateral low back pain without sciatica M54.5 ; Pain in left shoulder M25.512 ; Chronic pain syndrome G89.4 ; Type 2 diabetes mellitus with diabetic 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 ; High risk medication use Z79.899 and Encounter for immunization Z23 [address]00565100[place] [id number] Nov, Type 2 diabetes mellitus with diabetic neuropathy E11.40 ; Coronary artery disease involving umkumiut coronary artery of umkumiut heart without angina pectoris I25.10 and CKD (chronic kidney disease), stage 3 (moderate) N18.[address] [id number][place] [id number] Oct, Type 2 diabetes mellitus with diabetic polyneuropathy E11.42 ; Chronic pain syndrome G89.4 ; Chronic obstructive pulmonary disease, unspecified COPD type J44.9 ; Chronic kidney disease, unspecified N18.9 and Rash R21 [address] [id number] [place] [id number] Oct, Type 2 diabetes mellitus with diabetic neuropathy E11.[address] [id number], [place] [id number] Oct, Rash R21 and Impetigo L01.00 [facility] [id number], [place] [id number] Oct, Chronic pain syndrome G89.4 [facility] [id number] [place] [address] [id number] Oct, [facility] [id number] [place] [address] [id number] Sep, Sebaceous cyst L72.3 [facility] [id number] [place] [address] [id number] Sep, Sebaceous cyst L72.3 [facility] [id number] [place] [address] [id number] Sep, Chronic pain syndrome G89.4 ; Pain in left shoulder M25.512 and Effusion of olecranon bursa, left M25.422 [facility] [address]005[address]100[place], [place] [address] Aug, [facility] [address] [place] [address] [id number] Aug, [place] [id number] [place] [address] [id number] Aug, Mixed hyperlipidemia E78.2 and Chronic kidney disease, unspecified N18.9 [address] [place] [address] [id number] Jul, Type 2 diabetes mellitus with diabetic neuropathy E11.40 ; Essential hypertension I10 and S/P coronary artery stent placement Z95.5 [facility] [address]00565100[place] [id number] Jul, 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 [address]65100[place] [id number] Jul, Diabetes type 2, uncontrolled E11.65 ; Essential hypertension I10 and 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 [address]65100[place], [place] [id number] Jul, [address] [place] [address] [id number] Jul, [place] [id number] [id number] Jul, [address] [place] [address] [id number] Jul, Chronic obstructive pulmonary disease, unspecified COPD type J44.9 [address] [place] [address] [id number] Jun, CKD (chronic kidney disease), stage 3 (moderate) N18.3 and Anemia, unspecified type D64.9 [address] [place] [address] [id number] Jun, Type 2 diabetes mellitus with diabetic neuropathy E11.40 ; Decreased GFR R94.4 ; CKD (chronic kidney disease), stage 3 (moderate) N18.3 and Decreased hemoglobin R71.0 [place] [id number] [place] [address] [id number] Jun, CKD (chronic kidney disease), stage 3 (moderate) N18.3 and Anemia, unspecified type D64.9 [address] [place] [address] [id number] Jun, Type 2 diabetes mellitus with diabetic neuropathy E11.40 ; Decreased GFR R94.4 and CKD (chronic kidney disease), stage 3 (moderate) N18.3 [address] [place] [address] [id number] Jun, Type 2 diabetes mellitus with diabetic neuropathy E11.40 and Essential hypertension I10 [address] [place] [address] [id number] Jun, [place] [id number] [place] [address] [id number] Jun, [address] [place] [address] [id number] Jun, Type 2 diabetes mellitus with diabetic neuropathy E11.40 ; S/P coronary artery stent placement Z95.5 ; Chronic obstructive pulmonary disease, unspecified COPD type J44.9 ; Essential hypertension I10 ; GERD without esophagitis K21.9 ; Peripheral vascular disease I73.9 ; Mixed hyperlipidemia E78.2 and Hospital discharge follow-up Z09 [place] [address] [id number] Jun, [facility] [address] [id number], [place] [id number] May, Depression F32.9 and Hyperlipidemia, unspecified hyperlipidemia E78.5 [facility] [address] [id number] [address] May, [facility] [address]65100[place] [id number] May, [facility] [address]65100[place], [place] [id number] May, Essential hypertension I10 ; Chronic pain syndrome G89.4 ; Pain in left shoulder M25.512 ; High risk medication use Z79.899 ; Chronic obstructive pulmonary disease, unspecified COPD type J44.9 ; S/P coronary artery stent placement Z95.5 ; Personal history of carotid stenosis Z86.79 ; Hyperlipidemia, unspecified hyperlipidemia E78.5 ; Decreased GFR R94.4 and Type 2 diabetes mellitus with diabetic polyneuropathy E11.42 [facility] [address] [place] [address] [id number] May, Hemoglobin decreased R71.0 and Decreased GFR R94.4 [place] [id number] [place] [address] [id number] May, Hemoglobin decreased R71.0 and Decreased GFR R94.[address] [place] [address] [id number] May, [address]00565100[place] [id number] May, [address]00565100[place], [place] [id number] Apr, [address] [place] [address] [id number] Apr, Type 2 diabetes mellitus with foot [...] unspecified hyperlipidemia E78.5 and Essential hypertension I10 [facility] [id number] [place] [address] [id number] Apr, [facility] [id number] [place] [address] [id number] Mar, [facility] [id number] [place] [address] [id number] Mar, [place] [id number] [place] [address] Mar, [facility] [id number] [place] [address] [id number] Feb, [facility] [id number] [place] [address] [id number] Feb, [facility] [id number] [place] [address] [id number] Feb, [facility] [id number] [place] [address] [id number] Jan, Type 2 diabetes mellitus with diabetic polyneuropathy E11.42 ; Hypercholesterolemia E78.0 ; Chronic pain syndrome G89.4 ; Pain in left shoulder M25.512 and High risk medication use Z79.899 [facility] [id number] [place] [address] [id number] Jan, [id number] [place] [address] [id number] Jan, [facility] [id number] [place] [address] [id number] December, [facility] [id number] [place] [address] [id number] December, [facility] [id number] [place] [address] December, Diabetes type 2, uncontrolled E11.65 ; Type 2 diabetes mellitus with diabetic neuropathy E11.40 ; Peripheral vascular disease I73.9 ; 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 and 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 [facility] [address] [id number] [place] [id number] Nov, [facility] [address] [id number] [place] [id number] Nov, [facility] [address] [id number] [place] [id number] Nov, [facility] [address] [id number] [place] [id number] Nov, Right hip pain M25.551 [facility] [id number] [place] [address] Nov, [facility] [address] [address] Nov, [facility] [id number] [place] [address] [id number] Nov, Diabetes with neurological manifestations, type II or unspecified type, not stated as uncontrolled 250.60 [facility] [id number] [place] [address] [id number] Nov, [facility] [address] [id number] [place] [address] [id number] Nov, [facility] [address] [id number] [place] [address] [id number] Oct, Diabetes type 2, uncontrolled E11.65 ; Type 2 diabetes mellitus with diabetic neuropathy, unspecified E11.40 and Low back pain M54.5 [facility] [id number] [place] [address] [id number] Oct, [facility] [address] [id number], [place] [id number] Oct, [facility] [id number] [place] [address] [id number] Oct, [facility] [address] [id number] [place] [address] [id number] Sep, [facility] [id number] [place] [address] [id number] Sep, [facility] [id number] [place] [address] Sep, [facility] [id number], [place] [id number] Sep, [facility] [id number] [place] [address] [id number] Sep, [facility] [id number] [place] [address] [id number] Aug, 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 [facility] [id number] [place] [address] [id number] Aug, [facility] [id number] [place] [address] [id number] Aug, Allergic rhinitis due to pollen J30.[id number] [place] [address] [id number] Jul, [facility] [id number] [place] [address] [id number] Jul, [facility] [id number] [place] [address] [id number] Jul, [facility] [id number] [place] [address] [id number] Jun, [place] [id number] [place] [address] [id number] Jun, Thumb tendonitis M77.8 and Ringing in ear, bilateral H93.13 [facility] [address] [id number] [id number] Jun, [facility] [address]00565100[place] [id number] May, [facility] [id number] [place] [address] May, [facility] [id number] [place] [address] May, Pre-op evaluation Z01.818 ; Encounter for immunization Z23 ; Type 2 diabetes mellitus with diabetic peripheral angiopathy without gangrene E11.51 ; Insulin long-term use Z79.4 ; Type 2 diabetes mellitus with foot ulcer E11.621 ; Peripheral vascular disease I73.9 ; Coronary artery disease involving umkumiut coronary artery of umkumiut heart without angina pectoris I25.10 ; S/P coronary artery stent placement Z95.5 ; Osteomyelitis of right foot, unspecified chronicity M86.9 and Chronic obstructive pulmonary disease, unspecified COPD type J44.9 [facility] [id number] [place] [address] May, [facility] [address] [id number] May, [address] [id number] May, Diabetes type 2, uncontrolled E11.65 ; Encounter for immunization Z23 ; Osteopenia M85.80 and Allergic rhinitis due to pollen J30.1 [facility] [id number] [place] [address] [id number] May, Lumbago 724.2 [facility] [id number] [place] [address] [id number] Apr, [facility] [id number] [place] [address] [id number] Apr, [facility] [id number] [place] [address] [id number] Apr, [facility] [id number] [place] [address] [id number] Apr, [facility] [id number] [place] [address] Mar, [facility] [id number] [place] [address] [id number] Mar, [facility] [id number] [place] [address] [id number] Mar, [facility] [id number] [place] [address] [id number] Mar, [facility] [id number] [place] [address] [id number] Mar, [facility] [id number] [place] [phone] Mar, [facility] [address] [id number], [place] [id number] Mar, [facility] [address] [id number] [place] [id number] Mar, Diabetes with neurological manifestations, type II or unspecified type, not stated as uncontrolled 250.60 and Severe obesity (BMI 35.0-35.9 with comorbidity) 278.01 [facility] [id number] [place] [address] [id number] Mar, [facility] [id number] [place] [phone] Mar, [facility] [id number] [place] [phone] Feb, [facility] [address] [id number] [place] [address] [id number] Feb, [facility] [id number] [place] [address] [id number] Feb, [facility] [address] [id number] [place] [id number] Feb, Diabetes with neurological manifestations, type II or unspecified type, not stated as uncontrolled 250.60 [facility] [address] [id number] [place] [id number] Feb, [facility] [address]00565100[place], [place] [address] Feb, [facility] [address] [id number], [place] [id number] Feb, [facility] [address] [id number] [place] [id number] Feb, Follow up V67.9 ; Diabetes with neurological manifestations, type II or unspecified type, not stated as uncontrolled 250.60 and Congestive heart failure 428.0 [facility] [address] [id number] [place] [id number] Jan, [facility] [address] [id number], [place] [id number] Jan, [facility] [address] [id number], [place] [id number] Jan, [facility] [id number], [place] [id number] December, Otitis media with effusion 381.4 ; Left arm numbness 782.0 and Osteoporosis 733.00 [facility] [address] [id number], [place] [id number] December, [facility] [id number], [place] [id number] Nov, [facility] [id number], [place] [id number] Nov, Serous otitis media 381.4 and Lumbago 724.2 [facility] [id number] [place] [phone] Nov, [facility] [id number] [place] [phone] Nov, [facility] [id number], [place] [id number] Oct, [facility] [id number] [place] [address] Oct, [facility] [id number], [place] [id number] Oct, [facility] [address]00565100[place], [place] [address] Oct, [facility] [id number], [place] [id number] Oct, [facility] [place] [facility] [address]00565100[place], [place] [address] Oct, [facility] [place] [facility] [id number] [place] [phone] Sep, [facility] [place] [facility] [address]00565100[place], [place] [address] Sep, [facility] [address] [id number], [place] [id number] Sep, [facility] [place] [facility] [address] [facility] [id number] [place] [address] Sep, [facility] [address] [facility] [id number] [place] [id number] Aug, [facility] [place] [facility] [address] [facility] [id number] [place] [address] Aug, [facility] [address] [facility] [id number], [place] [id number] Aug, [facility] [place] [facility] [address] [facility] [id number], [place] [address] Aug, [facility] [address] [facility] [id number], [place] [id number] Jul, [facility] [place] [facility] [address] [facility] [id number], [place] [address] Jul, [facility] [address] [facility] [id number], [place] [id number] Jul, [facility] [place] [facility] [address] [facility] [id number], [place] [address] Jul, [facility] [address] [facility] [id number], [place] [id number] Jul, [facility] [place] [facility] [address] [facility] [id number], [place] [address] Jul, [facility] [address] [facility] [id number], [place] [id number] Jun, [facility] [place] [facility] [address] [facility] [id number], [place] [address] Jun, [facility] [address] [facility] [id number], [place] [id number] May, [facility] [place] [facility] [address] [facility] [id number], [place] [address] May, [facility] [address] [facility] [id number], [place] [id number] May, [facility] [place] [facility] [address] [facility] [id number], [place] [address] May, [facility] [address] [id number], [place] [id number] May, [facility] [place] [facility] [address] [facility] [id number], [place] [address] May, [facility] [address] [id number], [place] [id number] May, [facility] [address] [facility] [id number], [place] [id number] May, [facility] [place] [facility] [address] [facility] [id number], [place] [address] May, [facility] [place] [facility] [address] [facility] [id number], [place] [address] May, [facility] [address] [facility] [id number], [place] [id number] May, [facility] [place] [facility] [address]00565100[place], [place] [address] May, [facility] [place] [facility] [address]00565100[place], [place] [address] Apr, [facility] [address] [facility] [id number], [place] [id number] Apr, [facility] [place] [facility] [address] [id number], [place] [address] Apr, [facility] [address] [facility] [id number], [place] [id number] Apr, [facility] [address] [facility] [id number], [place] [id number] Apr, [facility] [place] [facility] [address] [facility] [id number], [place] [address] Apr, [facility] [place] [facility] [address] [facility] [id number], [place] [address] Apr, [facility] [address] [facility] [id number], [place] [id number] Apr, [facility] [place] [facility] [address] [facility] [id number], [place] [address] Apr, [facility] [address] [id number] [place] [id number] Apr, [facility] [place] [facility] [address] [facility] [id number] [place] [address] Apr, [facility] [address] [id number] [place] [id number] Apr, [facility] [place] [facility] [address] [facility] [id number] [place] [address] Apr, [facility] [address] [id number] [place] [id number] Apr, [facility] [place] [facility] [address] [facility] [id number] [place] [address] Apr, [facility] [address] [id number] [place] [id number] Apr, [facility] [place] [facility] [address] [facility] [id number], [place] [address] Apr, [facility] [address] [id number] [place] [id number] Apr, [facility] [place] [facility] [address] [facility] [id number], [place] [address] Apr, [facility] [address] [facility] [id number] [place] [id number] Mar, [facility] [place] [facility] [address] [facility] [id number], [place] [address] Mar, [facility] [address] [id number] [place] 829220095 Mar, [facility] [address] [id number] [place] 689251461 Mar, [facility] [place] [facility] [address] [facility] [id number], [place] [address] Mar, [facility] [place] [facility] [address] [facility] [id number], [place] [address] Mar, [facility] [address] [id number] [place] [id number] Mar, [facility] [place] [facility] [address] [id number] [place] [address] Mar, [facility] [address] [id number] [place] [id number] Mar, [facility] [place] [facility] [address] [facility] [id number] [place] [address] Mar, [facility] [address] [id number] [place] [id number] Mar, [facility] [place] [facility] [address] [id number] [place] [address] Mar, [facility] [address] [id number] [place] [id number] Mar, [facility] [place] [facility] [address] [facility] [id number] [place] [address] Mar, [facility] [address] [id number] [place] [id number] Mar, [facility] [place] [facility] [address] [facility] [id number] [place] [address] Mar, [facility] [address] [id number] [place] [id number] Mar, [facility] [place] [facility] [address] [facility] [id number] [place] [address] Mar, [facility] [address] [id number] [place] [id number] Mar, [facility] [place] [facility] [address] [facility] [id number] [place] [address] Mar, [facility] [address] [id number] [place] [id number] Feb, [facility] [place] [facility] [address] [facility] [id number] [place] [address] Feb, [facility] [address] [id number] [place] [id number] Feb, [facility] [place] [facility] [address] [facility] [id number] [place] [address] Feb, [facility] [address] [id number] [place] [id number] Feb, [facility] [place] [facility] [address] [id number] [place] [address] Feb, [facility] [address] [id number] [place] [id number] Feb, [facility] [place] [facility] [address] [id number] [place] [address] Feb, [facility] [address] [id number] [place] 138851983 Feb, [facility] [place] [facility] [address] [facility] [id number] [place] [address] Feb, [facility] [address] [id number] [place] 967997781 Feb, [facility] [place] [facility] [address] [facility] [id number] [place] [address] Feb, [facility] [address] [id number] [place] [id number] Feb, [facility] [place] [facility] [address] [facility] [id number], [place] [address] Feb, [facility] [address] [id number] [place] 763257410 Feb, [facility] [place] [facility] [address] [facility] [id number], [place] [address] Feb, [facility] [address] [id number] [place] [id number] Feb, [facility] [place] [facility] [address] [id number] [place] [address] Feb, [facility] [address] [id number] [place] [id number] Feb, [facility] [address] [id number] [place] 310083003 Feb, [facility] [place] [facility] [address] [facility] [id number], [place] [address] Feb, [facility] [place] [facility] [address] [id number] [place] [address] Feb, [facility] [address] [id number] [place] [id number] Feb, [facility] [place] [facility] [address] [id number] [place] [address] Feb, [facility] [address] [id number] [place] [id number] Feb, [facility] [place] [facility] [address] [id number] [place] [address] Feb, [facility] [address] [id number] [place] [id number] Feb, [facility] [place] [facility] [address] [facility] [id number] [place] [address] Feb, [facility] [address] [facility] [id number] [place] [id number] Jan, [facility] [place] [facility] [address] [id number] [place] [address] Jan, [facility] [place] [facility] [address] [id number] [place] [address] Jan, [facility] [place] [facility] [address] [facility] [id number] [place] [address] Jan, [facility] [place] [facility] [address] [facility] [id number] [place] [address] Jan, [facility] [place] [facility] [address] [id number] [place] [address] Jan, [facility] [address] [id number] [place] [id number] Jan, [facility] [place] [facility] [address] [id number] [place] [address] Jan, [facility] [place] [facility] [address] [id number] [place] [address] Jan, [facility] [place] [facility] [address] [id number] [place] [address] Jan, [facility] [address] [id number] [place] 193810084 Jan, [facility] [address] [id number] [place] [id number] Jan, [facility] [place] [facility] [address] [facility] [id number] [place] [address] Jan, [facility] [place] [facility] [address] [id number] [place] [address] Jan, [facility] [address] [id number] [place] [id number] Jan, [facility] [address] [id number] [place] [id number] Jan, [facility] [place] [facility] [address] [facility] [id number] [place] [address] Jan, [facility] [place] [facility] [address] [facility] [id number], [place] [address] Jan, [facility] [place] [facility] [address] [facility] [id number], [place] [address] Jan, [facility] [address] [facility] [id number] [id number] December, [facility] [place] [facility] [address] [facility] [id number] [place] [address] December, [facility] [place] [facility] [address] [facility] [id number], [place] [address] December, [facility] [address] [id number] [place] [id number] December, [facility] [place] [facility] [address] [facility] [id number] [place] [address] December, [facility] [address] [id number] [place] [id number] December, [facility] [place] [facility] [address] [facility] [id number], [place] [address] December, [facility] [address] [id number] [place] [id number] December, [facility] [place] [facility] [address] [facility] [id number], [place] [address] December, [facility] [address] [facility] [id number] [place] [id number] Nov, [facility] [place] [facility] [address] [facility] [id number] [place] [address] Nov, [facility] [address] [facility] [id number][place] [id number] Nov, [facility] [place] [facility] [address] [facility] [id number] [place] [address] Nov, [facility] [facility] [address] [id number], [place] [address] Nov, [facility] [facility] [id number] [address] Nov, [facility] [facility] [id number], [place] [address] Oct, [facility] [address] [facility] [id number][place] [id number] Oct, [facility] [id number], [place] [address] Oct, [facility] [address] [id number][place] [id number] Oct, [facility] [address] [facility] [id number], [place] [address] Oct, [facility] [address] [facility] [id number] [place] [id number] Sep, [facility] [facility] [address] [facility] [id number], [place] [address] Sep, [facility] [address] [facility] [id number][place] [id number] Aug, [facility] [facility] [address] [id number], [place] [address] Aug, [facility] [address] [id number] [place] [id number] Aug, [facility] [facility] [address] [facility] [id number], [place] [address] Aug, [facility] [address] [facility] [id number] [place] [address] Aug, [facility] [address] [id number][place] [id number] Aug, [facility] [address] [facility] [id number] [place] [address] Aug, [facility] [facility] [address] [facility] [id number], [place] [address] Aug, [facility] [address] [facility] [id number] [place] [id number] Aug, [facility] [address] [facility] [id number], [place] [address] Aug, [facility] [address] [facility] [id number][place] [id number] Jul, [facility] [facility] [address] [facility] [id number], [place] [address] Jul, [facility] [address] [id number][place] [id number] Jul, [facility] [address] [facility] [id number], [place] [address] Jul, [facility] [address] [id number][place] [id number] Jul, [facility] [address] [facility] [id number], [place] [address] Jul, [facility] [address] [facility] [id number][place] [id number] Jul, [facility] [address] [facility] [id number], [place] [address] Jul, [facility] [address] [id number] [place] [id number] Jun, [facility] [facility] [address] [id number], [place] [address] Jun, [facility] [address] [id number] [place] [id number] Jun, [facility] [address] [facility] [id number], [place] [address] Jun, [facility] [address] [facility] [id number], [place] [address] Jun, [facility] [address] [facility] [id number], [place] [address] Jun, [facility] [address] [id number] [id number] Apr, [facility] [address] [id number] [place] [id number] Mar, [facility] [address] [id number][place] [id number] Mar, [facility] [address] [id number] [place] [id number] Feb, [facility] [address] [id number] [place] [id number] Feb, [facility] [address] [id number] [place] [id number] Feb, [facility] [address] [id number][place] [id number] December, [facility] [address] [id number][place] [id number] December, [facility] [address] [id number], [place] [address] December, [facility] [address] [id number] [place] [id number] December, [facility] [address] [id number] [place] [id number] December, [facility] [address] [id number][place] [id number] Nov, [facility] [address] [id number] [place] [id number] Nov, [facility] [address] [id number] [place] [id number] Nov, [facility] [address] [id number] [place] [id number] Oct, [facility] [address] [id number] [place] [id number] Sep, [facility] [address] [id number] [place] [id number] Aug, [facility] [address] [id number], [place] [address] Aug, [facility] [address] [id number] [place] [id number] Aug, [facility] [address] [id number] [place] [id number] Jul, [facility] [address] [facility] [id number], [place] [address] Jul, [facility] [address] [id number] [place] [id number] Jul, [facility] [address] [facility] [id number], [place] [address] Jul, [facility] [address] [id number] [place] [id number] Jun, [facility] [address] [facility] [id number], [place] [address] Jun, [facility] [address] [id number][place] [id number] May, [facility] [address] [facility] [id number], [place] [address] May, [facility] [address] [id number][place] [id number] May, [facility] [address] [facility] [id number], [place] [address] May, [facility] [address] [id number] [place] [id number] Apr, [facility] [address] [id number] [place] [id number] Apr, [facility] [address] [id number] [place] [id number] Mar, [facility] [address] [id number] [place] [id number] Mar, [facility] [address] [id number] [place] [address] Feb, [facility] [address] [id number] [place] [id number] Feb, [facility] [address] [id number] [place] [id number] Jan, [facility] [address] [id number] [place] [id number] Jan, [facility] [address] [id number] [place] [id number] Jan, [facility] [address] [id number] [place] [id number] Jan, [facility] [address] [id number] [place] [id number] December, [facility] [address] [id number] [place] [address] December, [facility] [address]00565100[place], [place] [address] Nov, [facility] [address] [id number] [place] [id number] Nov, [facility] [address] [id number] [place] [id number] Nov, [facility] [address] [id number] [place] [id number] Nov, [facility] [address] [id number] [place] [id number] Nov, [facility] [address]00565100[place], [place] [address] Oct, [facility] [address] [id number], [place] [address] Oct, [facility] [address] [id number] [place] [id number] Oct, [facility] [address] [id number] [place] [id number] Oct, [facility] [address] [id number] [place] [address] Oct, [facility] [address] [id number] [place] [id number] Oct, [facility] [address] [id number] [place] [id number] Oct, [facility] [address] [id number] [place] [id number] Oct, [facility] [address] [id number] [place] [id number] Oct, [facility] [address]00565100[place], [place] [address] Oct, [facility] [address] [id number] [place] [id number] Sep, [facility] [address] [id number] [place] [id number] Sep, [facility] [address] [id number] [place] [id number] Aug, [facility] [address] [id number] [place] [id number] Aug, [facility] [address]65[address], [place] [address] Jul, [facility] [address]00565[address], [place] [address] Jul, [facility] [id number] [place] [address] Jul, [facility] [id number] [place] [address] Jul, [facility] [id number] [place] [address] Jul, [facility] [address] [id number], [place] [address] Jul, [facility] [address]65[address], [place] [address] Jul, [facility] [address]00565[address], [place] [address] Jul, [facility] [id number] [place] [address] Jul, [facility] [address]65100[place], [place] [address] Jul, [facility] [id number] [place] [address] Jul, [facility] [id number] [place] [address] Jul, [facility] [address]65[address], [place] [address] Jul, [facility] [address] [id number], [place] [address] Jul, IMMUNIZATIONS No Known Immunizations SOCIAL HISTORY [...] History Left eye retinal eye repair ([facility]) 06/2014 Surgical History amputation, toe-right third toe ([facility]) 2013 Surgical History Right eye retinal eye repair ([facility]) 09/2014 Surgical History heart cath [...]
[2019-04-03 06:30] VITALS: BP 123/64
[2019-04-03] MEDS ORDERED: VANCOMYCIN INJECTION 1,000 MG in NS (IVPB) 250 ML IV ONE (06:30)
--- OUTSIDE RECORDS SUMMARY | 2019-04-03 06:30 | XMS REPORT ---
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 Active 455121163 Problem 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 Active 352529571 Problem Type 2 diabetes mellitus with diabetic polyneuropathy E11.42 Active 583469452 Problem Hypercholesterolemia E78.0 Active 89300079 Problem Fatigue, unspecified type R53.83 Active 11552249 Problem Personal history of carotid stenosis Z86.79 Active 924443012 Problem Uses walker Z99.89 Active 257451506 Problem Type 2 diabetes mellitus with diabetic neuropathy E11.40 Active 89654084 Problem Aphasia R47.01 Active 75564165 Problem S/P coronary artery stent placement Z95.5 Active 885502898 Problem Type 2 diabetes mellitus with diabetic retinopathy, macular edema presence unspecified, with unspecified retinopathy severity E11.319 Active 56224199 Problem Osteomyelitis of right foot, unspecified chronicity M86.9 Active 04180676 Problem CKD (chronic kidney disease), stage 3 (moderate) N18.3 Active 935245347 Problem Essential hypertension I10 Active 96244326 Problem GERD without esophagitis K21.9 Active 442323295 Problem Insulin long-term use Z79.4 Active 690870300 Problem CKD (chronic kidney disease) stage 3, GFR 30-59 ml/min N18.3 Active 639092998 Problem Type 2 diabetes mellitus with diabetic peripheral angiopathy without gangrene E11.51 Active 661851466 Problem Chronic kidney disease, unspecified N18.9 Active 246891968 Problem 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 Active 2904683468708 Problem Mixed hyperlipidemia E78.2 Active 666253912 Problem Hyperlipidemia, unspecified hyperlipidemia E78.5 Active 12386120 Problem Obesity (BMI 30.0-34.9) E66.9 Active 737006198010251 Problem Chronic obstructive pulmonary disease, unspecified COPD type J44.9 Active 56337231 Problem Frequent falls R29.6 Active 343503880 Problem Peripheral vascular disease I73.9 Active 420042100 Problem Chronic diarrhea K52.9 Active 398071612 Problem Other chronic pain G89.29 Active 59521100 Problem Full incontinence of feces R15.9 Active 750398546614713 Problem Major depressive disorder, single episode, mild F32.0 Active 05788518 Problem Pain in left shoulder M25.512 Active 21975736 Problem Ulcer of left foot, unspecified ulcer stage L97.529 Active 52692630 Problem Chronic pain syndrome G89.4 Active 771030553 Problem Diabetes type 2, uncontrolled E11.65 Active 243114967 Problem High risk medication use Z79.899 Active 146380728 Problem Fecal urgency R15.2 Active 43945130 Problem Functional diarrhea K59.1 Active 23341536 Problem Type 2 diabetes mellitus with foot ulcer E11.621 Active 704108906 Problem Mixed stress and urge urinary incontinence N39.46 Active 937973902 Problem Chronic fatigue R53.82 Active 13826742 ALLERGIES No Information ENCOUNTERS Encounter Location Date Diagnosis [id number] [place] [address] [id number] Jan, Type 2 diabetes mellitus with diabetic neuropathy E11.40 [facility] [id number] [place] [address] [id number] December, Bilateral low back pain without sciatica M54.5 [facility] [address] [place] [address] [id number] [place] [address] [id number] Nov, Bilateral low back pain without sciatica M54.5 [facility] [id number] [place] [address] [id number] Oct, Bilateral low back pain without sciatica M54.5 [facility] [address] [id number] [place] [address] [id number] Oct, [facility] [id number] [place] [phone] Oct, [facility] [id number] [place] [address] [id number] Sep, Other chronic pain G89.29 and Diabetes type 2, uncontrolled E11.65 [facility] [address] [id number] [place] [id number] Sep, Type 2 diabetes mellitus with diabetic neuropathy E11.40 ; Atherosclerosis of georgetown artery of both lower extremities, with unspecified presence of clinical manifestation I70.203 and Ulcer of left foot, unspecified ulcer stage L97.529 [facility] [address] [id number] [place] [id number] Sep, Bilateral low back pain without sciatica M54.5 [facility] [address] [id number] [place] [id number] Aug, Bilateral low back pain without sciatica M54.5 [facility] [address] [id number] Aug, [facility] [id number] [place] [address] [id number] Aug, Essential hypertension I10 [facility] [id number] [place] [address] [id number] Aug, [facility] [id number] [place] [address] [id number] Jul, [facility] [id number] [place] [address] [id number] Jul, Bilateral low back pain without sciatica M54.5 [facility] [id number] [place] [address] [id number] Jul, Hyperlipidemia, unspecified hyperlipidemia E78.5 [facility] [address] [id number] [place] [id number] Jul, [facility] [id number] [place] [address] [id number] Jul, Type 2 diabetes mellitus with diabetic neuropathy E11.40 [facility] [id number] [place] [address] [id number] Jun, [facility] [address] [id number] [place] [address] [id number] Jun, Bilateral low back pain without sciatica M54.5 [facility] [id number], [place] [id number] Jun, Chronic fatigue R53.82 [facility] [id number], [place] [id number] Jun, Type 2 diabetes mellitus with diabetic polyneuropathy E11.42 and Bilateral low back pain without sciatica M54.5 [facility] [id number] [place] [address] [id number] May, Other chronic pain G89.29 [facility] [id number], [place] [id number] May, Diabetes type 2, uncontrolled E11.65 [facility] [address] [address] May, Type 2 diabetes mellitus with diabetic neuropathy E11.40 ; 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 and Major depressive disorder, single episode, mild F32.0 [facility] [id number], [place] [id number] May, [facility] [id number], [place] [id number] May, [facility] [id number], [place] [id number] May, [facility] [id number], [place] [id number] Apr, Other chronic pain G89.29 [facility] [address] [id number] [place] [phone] Apr, [facility] [address] [facility][1] [id number][place] [phone] Apr, Essential hypertension I10 [facility] [id number], [place] [id number] Mar, Other chronic pain G89.29 [facility] [address] [id number][place] [id number] Mar, [facility] [id number], [place] [id number] Feb, Other chronic pain G89.29 [facility] [id number], [place] [id number] Feb, Diabetes type 2, uncontrolled E11.65 ; Type 2 diabetes mellitus with diabetic retinopathy, macular edema presence unspecified, with unspecified retinopathy severity E11.319 and Bilateral low back pain without sciatica M54.5 [facility] [id number] [place] [address] [id number] Feb, [facility] [id number] [place] [address] [id number] Feb, Diabetes type 2, uncontrolled E11.65 [facility] [id number] [place] [address] [id number] Feb, Other chronic pain G89.29 [facility] [id number] [place] [address] [id number] Jan, [facility] [id number] [place] [address] [id number] Jan, [facility] [id number] [place] [address] [id number] Jan, [facility] [id number] [place] [address] [id number] Jan, Other chronic pain G89.29 [facility] [id number] [place] [address] [id number] December, Mixed stress and urge urinary incontinence N39.46 [facility] [id number], [place] [id number] December, Chronic fatigue R53.82 [facility] [id number] [place] [address] [id number] December, Other chronic pain G89.29 [facility] [id number] [place] [address] [id number] December, Diabetes type 2, uncontrolled E11.65 ; [...] type J44.9 and Other chronic pain G89.29 [facility] [address], [place] [address] December, [place] [id number] [place] [address] [id number] December, Medicare annual wellness visit, subsequent Z00.00 ; Type 2 diabetes mellitus with diabetic polyneuropathy E11.42 ; Chronic obstructive pulmonary disease, unspecified COPD type J44.9 ; Depression F32.9 ; Peripheral vascular disease I73.9 ; 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 ; Hypercholesterolemia E78.0 ; GERD without esophagitis K21.9 and Chronic kidney disease, unspecified N18.9 [place] [id number] [place] [address] [id number] December, Mixed stress and urge urinary incontinence N39.46 ; Full incontinence of feces R15.9 ; Fecal urgency R15.2 ; Functional diarrhea K59.1 and Type 2 diabetes mellitus with diabetic neuropathy E11.40 [address] [place] [address] [id number] Nov, Other chronic pain G89.29 [place] [id number] [place] [address] [id number] Oct, [place] [id number] [place] [address] [id number] Oct, [place] [id number] [place] [address] [id number] Oct, Other chronic pain G89.29 [place] [id number] [place] [address] [id number] Sep, Other chronic pain G89.29 [place] [id number] [place] [address] [id number] Aug, CKD (chronic kidney disease), stage 3 (moderate) N18.3 ; Anemia, unspecified type D64.9 and Dilated pore of Ly L70.8 [facility] [id number] [place] [address] [id number] Aug, Other chronic pain G89.29 ; Pain in left shoulder M25.512 ; High risk medication use Z79.899 ; Uses walker Z99.89 ; Diabetes type 2, uncontrolled E11.65 and Depression F32.9 [address] [place] [address] [id number] Aug, Chronic diarrhea K52.9 [place] [id number] [place] [address] [id number] Aug, Chronic diarrhea K52.9 ; Type 2 diabetes mellitus with diabetic neuropathy E11.40 ; Diabetes type 2, uncontrolled E11.65 ; Insulin long-term use Z79.4 ; Chronic obstructive pulmonary disease, unspecified COPD type J44.9 ; Chronic pain syndrome G89.4 ; Pain in left shoulder M25.512 ; Uses walker Z99.89 ; S/P coronary artery stent placement Z95.5 ; Mixed hyperlipidemia E78.2 and Essential hypertension I10 [address] [place] [address] [id number] Aug, [place] [id number] [place] [address] [id number] Jul, Diabetes type 2, uncontrolled E11.65 [address] [place] [address] [id number] Jul, Diabetes type 2, uncontrolled E11.65 ; Type 2 diabetes mellitus with diabetic neuropathy E11.40 ; Insulin long-term use Z79.4 and Chronic obstructive pulmonary disease, unspecified COPD type J44.9 [address] [place] [address] [id number] Jun, [place] [id number] [place] [address] [id number] Jun, Essential hypertension I10 [place] [id number] [place] [address] [id number] Jun, Essential hypertension I10 [address] [place] [address] [id number] Jun, Type 2 diabetes mellitus with diabetic neuropathy E11.40 ; Type 2 diabetes mellitus with diabetic polyneuropathy E11.42 ; S/P coronary artery stent placement Z95.5 ; Obesity (BMI 30.0-34.9) E66.9 ; Mixed hyperlipidemia E78.2 ; Frequent falls R29.6 ; Chronic obstructive pulmonary disease, unspecified COPD type J44.9 ; Essential hypertension I10 ; Insulin long-term use Z79.4 and High risk medication use Z79.899 [address] [place] [address] [id number] May, Diarrhea, unspecified type R19.7 ; Type 2 diabetes mellitus with diabetic neuropathy E11.40 ; Chronic obstructive pulmonary disease, unspecified COPD type J44.9 ; S/P coronary artery stent placement Z95.5 ; High risk medication use Z79.899 ; Essential hypertension I10 ; Encounter for administration of vaccine Z23 and Encounter for immunization Z23 [address] [id number] [place] [id number] May, Chronic obstructive pulmonary disease, unspecified COPD type J44.9 [address] [place] [address] [id number] May, Type 2 diabetes mellitus with diabetic polyneuropathy E11.42 ; Encounter for immunization Z23 ; Needs flu shot Z23 ; Comprehensive diabetic foot examination, type 2 DM, encounter for E11.9 and Obesity (BMI 30.0-34.9) E66.9 [address] [place] [address] [id number] May, [address] [place] [address] [id number] Apr, [address] [place] [address] [id number] Apr, Essential hypertension I10 and Aphasia R47.[address] [id number] Apr, [place] [id number] [place] [address] [id number] Apr, Type 2 diabetes mellitus with diabetic neuropathy E11.40 ; Frequent falls R29.6 ; Essential hypertension I10 ; S/P coronary artery stent placement Z95.5 ; High risk medication use Z79.899 ; Hyperlipidemia, unspecified hyperlipidemia E78.5 ; CKD (chronic kidney disease), stage 3 (moderate) N18.3 ; Pain in left shoulder M25.512 and Chronic obstructive pulmonary disease, unspecified COPD type J44.9 [facility] [id number] [place] [address] [id number] Mar, [address] [id number] Mar, Type 2 diabetes mellitus with diabetic polyneuropathy E11.42 ; Leg wound, left, initial encounter S81.802A ; Hx of shoulder surgery Z98.890 ; Acute pain of left shoulder M25.512 and Fall, initial encounter W19.XXXA [address] [id number] Feb, Follow-up exam Z09 ; Hx of shoulder surgery Z98.890 ; Acute pain of left shoulder M25.512 ; Essential hypertension I10 and Leg wound, left, initial encounter S81.802A [facility] [id number] [place] [address] [id number] Feb, [place] [address] [id number] Feb, [address] [id number] Feb, Chronic obstructive pulmonary disease, unspecified COPD type J44.9 [place] [id number] [place] [address] [id number] Feb, [address] [id number] Jan, Generalized weakness R53.1 ; Exertional shortness of breath R06.02 and Fungal rash of trunk B36.[address] [id number] Jan, [place] [id number] [place] [address] [id number] Jan, [address] [id number] Jan, [facility] [address] [facility][1] [id number], [place] [id number] Jan, [address]65[address] [id number] December, High risk medication use Z79.899 [address]65100[place] [id number] December, Type 2 diabetes mellitus with diabetic neuropathy E11.40 [address] [place] [address] [id number] December, High risk medication use Z79.899 [address]65100[place] [id number] Nov, Diabetes type 2, uncontrolled E11.65 [address] [place] [address] [id number] Nov, Medicare annual wellness visit, initial Z00.00 ; Bilateral low back pain without sciatica M54.5 ; Pain in left shoulder M25.512 ; Chronic pain syndrome G89.4 ; Type 2 diabetes mellitus with diabetic polyneuropathy E11.42 ; High risk medication use Z79.899 and Encounter for immunization Z23 [address]65100[place] [id number] Nov, Type 2 diabetes mellitus with diabetic neuropathy E11.40 ; 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 and CKD (chronic kidney disease), stage 3 (moderate) N18.3 [address]100[place] [id number] Oct, Type 2 diabetes mellitus with diabetic polyneuropathy E11.42 ; Chronic pain syndrome G89.4 ; Chronic obstructive pulmonary disease, unspecified COPD type J44.9 ; Chronic kidney disease, unspecified N18.9 and Rash R21 [address] [id number] [place] [id number] Oct, Type 2 diabetes mellitus with diabetic neuropathy E11.[address] [id number][place] [id number] Oct, Rash R21 and Impetigo L01.00 [place] [id number] [id number] Oct, Chronic pain syndrome G89.4 [facility] [id number] [place] [address] [id number] Oct, [facility] [id number] [place] [address] [id number] Sep, Sebaceous cyst L72.3 [facility] [id number] [place] [address] [id number] Sep, Sebaceous cyst L72.3 [facility] [id number] [place] [address] [id number] Sep, Chronic pain syndrome G89.4 ; Pain in left shoulder M25.512 and Effusion of olecranon bursa, left M25.422 [facility] [address], [place] [address] Aug, [address] [place] [address] [id number] Aug, [facility] [id number] [place] [address] [id number] Aug, Mixed hyperlipidemia E78.2 and Chronic kidney disease, unspecified N18.9 [place] [id number] [place] [address] [id number] Jul, Type 2 diabetes mellitus with diabetic neuropathy E11.40 ; Essential hypertension I10 and S/P coronary artery stent placement Z95.5 [address]100[place] [id number] Jul, 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 [address] [place] [address] [id number] Jul, Diabetes type 2, uncontrolled E11.65 ; Essential hypertension I10 and 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 [address] [place] [address] [id number] Jul, [address] [place] [address] [id number] Jul, [place] [id number] [place] [address] [id number] Jul, [address] [place] [address] [id number] Jul, Chronic obstructive pulmonary disease, unspecified COPD type J44.9 [place] [id number] [place] [address] [id number] Jun, CKD (chronic kidney disease), stage 3 (moderate) N18.3 and Anemia, unspecified type D64.9 [place] [id number] [place] [address] [id number] Jun, Type 2 diabetes mellitus with diabetic neuropathy E11.40 ; Decreased GFR R94.4 ; CKD (chronic kidney disease), stage 3 (moderate) N18.3 and Decreased hemoglobin R71.0 [place] [id number] [place] [address] [id number] Jun, CKD (chronic kidney disease), stage 3 (moderate) N18.3 and Anemia, unspecified type D64.9 [place] [id number] [place] [address] [id number] Jun, Type 2 diabetes mellitus with diabetic neuropathy E11.40 ; Decreased GFR R94.4 and CKD (chronic kidney disease), stage 3 (moderate) N18.3 [place] [id number] [place] [address] [id number] Jun, Type 2 diabetes mellitus with diabetic neuropathy E11.40 and Essential hypertension I10 [place] [id number] [place] [address] [id number] Jun, [place] [id number] [place] [address] [id number] Jun, [address] [place] [address] [id number] Jun, Type 2 diabetes mellitus with diabetic neuropathy E11.40 ; S/P coronary artery stent placement Z95.5 ; Chronic obstructive pulmonary disease, unspecified COPD type J44.9 ; Essential hypertension I10 ; GERD without esophagitis K21.9 ; Peripheral vascular disease I73.9 ; Mixed hyperlipidemia E78.2 and Hospital discharge follow-up Z09 [place] [id number] [place] [address] [id number] Jun, [place] [id number] [id number] May, Depression F32.9 and Hyperlipidemia, unspecified hyperlipidemia E78.5 [facility] [address] [facility] [id number] [place] [address] May, [place] [id number] [id number] May, [address]100[place], [place] [id number] May, Essential hypertension I10 ; Chronic pain syndrome G89.4 ; Pain in left shoulder M25.512 ; High risk medication use Z79.899 ; Chronic obstructive pulmonary disease, unspecified COPD type J44.9 ; S/P coronary artery stent placement Z95.5 ; Personal history of carotid stenosis Z86.79 ; Hyperlipidemia, unspecified hyperlipidemia E78.5 ; Decreased GFR R94.4 and Type 2 diabetes mellitus with diabetic polyneuropathy E11.42 [address] [id number] May, Hemoglobin decreased R71.0 and Decreased GFR R94.4 [address] [place] [address] [id number] May, Hemoglobin decreased R71.0 and Decreased GFR R94.4 [address] [place] [address] [id number] May, [address]100[place], [place] [id number] May, [address] [place] [address] [id number] Apr, [address], [place] [id number] Apr, Type 2 diabetes mellitus with foot [...] unspecified hyperlipidemia E78.5 and Essential hypertension I10 [facility] [id number] [place] [address] [id number] Apr, [facility] [id number] [place] [address] [id number] Mar, [facility] [id number] [place] [address] [id number] Mar, [place] [address] [place] [id number] [place] [address] Mar, [facility] [id number] [place] [address] [id number] Feb, [facility] [id number] [place] [address] [id number] Feb, [facility] [address] [id number] [place] [address] [id number] Feb, [facility] [id number] [place] [address] [id number] Jan, Type 2 diabetes mellitus with diabetic polyneuropathy E11.42 ; Hypercholesterolemia E78.0 ; Chronic pain syndrome G89.4 ; Pain in left shoulder M25.512 and High risk medication use Z79.899 [facility] [id number] [place] [address] [id number] Jan, [place] [id number] [place] [address] [id number] Jan, [facility] [id number] [place] [address] [id number] December, [facility] [facility] [id number] [place] [address] [id number] December, [facility] [id number] [place] [address] December, Diabetes type 2, uncontrolled E11.65 ; Type 2 diabetes mellitus with diabetic neuropathy E11.40 ; Peripheral vascular disease I73.9 ; 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 and 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 [facility] [address] [id number] [place] [id number] Nov, [facility] [address] [id number] [place] [id number] Nov, [facility] [address] [id number] [place] [id number] Nov, [facility] [address] [id number] [place] [id number] Nov, Right hip pain M25.551 [facility] [id number] [place] [address] Nov, [facility] [id number] [place] [address] Nov, [facility] [id number] [place] [address] [id number] Nov, Diabetes with neurological manifestations, type II or unspecified type, not stated as uncontrolled 250.60 [facility] [address] [id number] [place] [phone] Nov, [facility] [address] [id number], [place] [id number] Nov, [facility] [address] [id number], [place] [id number] Oct, Diabetes type 2, uncontrolled E11.65 ; Type 2 diabetes mellitus with diabetic neuropathy, unspecified E11.40 and Low back pain M54.5 [facility] [address] [id number], [place] [id number] Oct, [facility] [address] [id number], [place] [id number] Oct, [facility] [address] [id number], [place] [id number] Oct, [facility] [address] [id number] [place] [address] [id number] Sep, [facility] [address] [id number] [place] [address] [id number] Sep, [facility] [id number] [place] [address] Sep, [facility] [id number], [place] [id number] Sep, [facility] [id number] [place] [address] [id number] Sep, [facility] [id number] [place] [address] [id number] Aug, 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 [facility] [id number] [place] [address] [id number] Aug, [facility] [id number] [place] [address] [id number] Aug, Allergic rhinitis due to pollen J30.1 [facility] [address] [place] [id number] [place] [address] [id number] Jul, [facility] [id number] [place] [address] [id number] Jul, [id number] [place] [address] [id number] Jul, [facility] [id number] [place] [address] [id number] Jun, [place] [id number] [place] [address] [id number] Jun, Thumb tendonitis M77.8 and Ringing in ear, bilateral H93.13 [facility] [address] [id number] [place] [phone] Jun, [id number] [place] [address] [phone] May, [facility] [id number] [place] [address] May, [facility] [id number] [place] [address] May, Pre-op evaluation Z01.818 ; Encounter for immunization Z23 ; Type 2 diabetes mellitus with diabetic peripheral angiopathy without gangrene E11.51 ; Insulin long-term use Z79.4 ; Type 2 diabetes mellitus with foot ulcer E11.621 ; Peripheral vascular disease I73.9 ; 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 ; S/P coronary artery stent placement Z95.5 ; Osteomyelitis of right foot, unspecified chronicity M86.9 and Chronic obstructive pulmonary disease, unspecified COPD type J44.9 [facility] [id number] [place] [address] May, [facility] [id number] [place] [address] [phone] May, [facility] [address] [id number] May, Diabetes type 2, uncontrolled E11.65 ; Encounter for immunization Z23 ; Osteopenia M85.80 and Allergic rhinitis due to pollen J30.1 [facility] [id number] [place] [address] [id number] May, Lumbago 724.2 [address] [place] [id number] [place] [address] [id number] Apr, [place] [id number] [place] [address] [id number] Apr, [facility] [id number] [place] [address] [phone] Apr, [facility] [id number] [place] [address] [id number] Apr, [facility] [id number] [place] [address] Mar, [facility] [id number] [place] [address] [id number] Mar, [facility] [id number] [place] [address] [id number] Mar, [facility] [id number] [place] [address] [id number] Mar, [facility] [id number] [place] [address] [id number] Mar, [facility] [id number] [place] [address] Mar, [place] [id number], [place] [id number] Mar, [facility] [id number], [place] [id number] Mar, Diabetes with neurological manifestations, type II or unspecified type, not stated as uncontrolled 250.60 and Severe obesity (BMI 35.0-35.9 with comorbidity) 278.01 [facility] [address] [id number] [id number] Mar, [facility] [address] [address] Mar, [facility] [id number] [place] [address] Feb, [facility] [id number] [place] [address] [id number] Feb, [facility] [id number], [place] [id number] Feb, [facility] [id number] [place] [address] [phone] Feb, Diabetes with neurological manifestations, type II or unspecified type, not stated as uncontrolled 250.60 [facility] [id number], [place] [id number] Feb, [facility] [id number] [place] [address] Feb, [facility] [id number], [place] [id number] Feb, [facility] [id number], [place] [id number] Feb, Follow up V67.9 ; Diabetes with neurological manifestations, type II or unspecified type, not stated as uncontrolled 250.60 and Congestive heart failure 428.0 [facility] [id number], [place] [id number] Jan, [facility] [id number], [place] [id number] Jan, [facility] [address] [id number] [id number] Jan, [facility] [id number], [place] [id number] December, Otitis media with effusion 381.4 ; Left arm numbness 782.0 and Osteoporosis 733.00 [facility] [address] [id number], [place] [id number] December, [facility] [address] [id number], [place] [id number] Nov, [facility] [id number], [place] [id number] Nov, Serous otitis media 381.4 and Lumbago 724.2 [facility] [place] [facility] [id number] [place] [address] Nov, [facility] [place] [facility] [id number] [place] [address] Nov, [facility] [id number], [place] [id number] Oct, [facility] [place] [facility] [address]005[address]100[place], [place] [address] Oct, [facility] [id number], [place] [id number] Oct, [facility] [place] [facility] [address] [id number], [place] [address] Oct, [facility] [address] [id number], [place] [id number] Oct, [facility] [place] [facility] [address]00565100[place], [place] [address] Oct, [facility] [place] [facility] [address]00565100[place], [place] [address] Sep, [facility] [place] [facility] [address]00565100[place], [place] [address] Sep, [facility] [address] [id number], [place] [id number] Sep, [facility] [place] [facility] [address] [id number], [place] [address] Sep, [facility] [address] [id number] [place] [id number] Aug, [facility] [place] [facility] [address] [facility] [id number][place] [address] Aug, [facility] [address] [facility]] [id number] [place] [id number] Aug, [facility] [place] [facility] [address] [facility] [id number][place] [address] Aug, [facility] [address] [facility][1] [id number] [place] [id number] Jul, [facility] [place] [facility] [address] [facility] [id number][place] [address] Jul, [facility] [address] [id number] [place] [id number] Jul, [facility] [place] [facility] [address]00565100[place], [place] [address] Jul, [facility] [address] [facility][1] [id number] [place] [id number] Jul, [facility] [place] [facility] [address] [facility] [id number], [place] [address] Jul, [facility] [address] [id number] [place] [id number] Jun, [facility] [place] [facility] [address] [facility] [id number], [place] [address] Jun, [facility] [address] [facility][1] [id number], [place] [id number] May, [facility] [place] [facility] [address] [facility] [id number], [place] [address] May, [facility] [address] [facility][1] [id number] [place] [id number] May, [facility] [place] [facility] [address] [facility] [id number], [place] [address] May, [facility] [address] [id number], [place] [id number] May, [facility] [address] [id number], [place] [address] May, [facility] [address] [id number], [place] [id number] May, [facility] [address] [facility][1] [id number] [place] [id number] May, [facility] [place] [facility] [address] [facility] [id number], [place] [address] May, [facility] [place] [facility] [address] [facility] [id number], [place] [address] May, [facility] [address] [facility][1] [id number], [place] [id number] May, [facility] [place] [facility] [address]00565100[place], [place] [address] May, [facility] [place] [facility] [address] [facility] [id number], [place] [address] Apr, [facility] [address] [facility][1] [id number], [place] [id number] Apr, [facility] [place] [facility] [address] [facility] [id number], [place] [address] Apr, [facility] [address] [facility][1] [id number], [place] [id number] Apr, [facility] [address] [facility][1] [id number], [place] [id number] Apr, [facility] [place] [facility] [address] [facility] [id number][place] [address] Apr, [facility] [place] [facility] [address] [facility] [id number], [place] [address] Apr, [facility] [address] [facility][1] [id number], [place] [id number] Apr, [facility] [place] [facility] [address] [facility] [id number], [place] [address] Apr, [facility] [address] [id number] [place] [id number] Apr, [facility] [place] [facility] [address] [id number], [place] [address] Apr, [facility] [address] [id number] [place] [id number] Apr, [facility] [place] [facility] [address] [facility] [id number], [place] [address] Apr, [facility] [address] [id number] [place] [id number] Apr, [facility] [place] [facility] [address] [facility] [id number][place] [address] Apr, [facility] [address] [id number] [place] [id number] Apr, [facility] [place] [facility] [address]00565100[place], [place] [address] Apr, [facility] [address] [id number], [place] [id number] Apr, [facility] [place] [facility] [address] [facility] [id number], [place] [address] Apr, [facility] [address] [id number], [place] [id number] Mar, [facility] [place] [facility] [address] [facility] [id number], [place] [address] Mar, [facility] [address] [id number], [place] [id number] Mar, [facility] [address] [id number], [place] [id number] Mar, [facility] [place] [facility] [address] [facility] [id number], [place] [address] Mar, [facility] [place] [facility] [address] [facility] [id number], [place] [address] Mar, [facility] [address] [id number], [place] [id number] Mar, [facility] [place] [facility] [address] [id number] [place] [address] Mar, [facility] [address] [id number] [place] [id number] Mar, [facility] [place] [facility] [address] [facility] [id number] [place] [address] Mar, [facility] [address] [id number] [place] [id number] Mar, [facility] [place] [facility] [address] [facility] [id number] [place] [address] Mar, [facility] [address] [id number] [place] [id number] Mar, [facility] [place] [facility] [address] [facility] [id number] [place] [address] Mar, [facility] [address] [facility][1] [id number] [place] [id number] Mar, [facility] [place] [facility] [address] [facility] [id number] [place] [address] Mar, [facility] [address] [id number] [place] [id number] Mar, [facility] [place] [facility] [address] [facility] [id number] [place] [address] Mar, [facility] [address] [id number] [place] [id number] Mar, [facility] [place] [facility] [address] [facility] [id number] [place] [address] Mar, [facility] [address] [id number] [place] [id number] Feb, [facility] [place] [facility] [address] [facility] [id number] [place] [address] Feb, [facility] [address] [id number] [place] [id number] Feb, [facility] [place] [facility] [address] [facility] [id number] [place] [address] Feb, [facility] [address] [id number] [place] [id number] Feb, [facility] [place] [facility] [address] [id number] [place] [address] Feb, [facility] [address] [id number] [place] [id number] Feb, [facility] [place] [facility] [address] [id number] [place] [address] Feb, [facility] [address] [id number] [place] [id number] Feb, [facility] [place] [facility] [address] [id number] [place] [address] Feb, [facility] [address] [id number] [place] [id number] Feb, [facility] [place] [facility] [address] [id number], [place] [address] Feb, [facility] [address] [id number] [place] [id number] Feb, [facility] [place] [facility] [address] [id number] [place] [address] Feb, [facility] [address] [id number] [place] [id number] Feb, [facility] [place] [facility] [address] [id number], [place] [address] Feb, [facility] [address] [id number] [place] [id number] Feb, [facility] [place] [facility] [address] [id number] [place] [address] Feb, [facility] [address] [id number] [place] [id number] Feb, [facility] [address] [id number] [place] [id number] Feb, [facility] [place] [facility] [address] [id number], [place] [address] Feb, [facility] [place] [facility] [address] [id number] [place] [address] Feb, [facility] [address] [facility][1] [id number] [place] [id number] Feb, [facility] [place] [facility] [address] [facility] [id number] [place] [address] Feb, [facility] [address] [facility][1] [id number] [place] [id number] Feb, [facility] [place] [facility] [address] [facility] [id number] [place] [address] Feb, [facility] [address] [facility][1] [id number] [place] [id number] Feb, [facility] [place] [facility] [address] [facility] [id number] [place] [address] Feb, [facility] [address] [id number] [place] [id number] Jan, [facility] [place] [facility] [address] [id number], [place] [address] Jan, [facility] [place] [facility] [address] [facility] [id number], [place] [address] Jan, [facility] [place] [facility] [address] [facility] [id number], [place] [address] Jan, [facility] [place] [facility] [address] [facility] [id number], [place] [address] Jan, [facility] [place] [facility] [address] [facility] [id number], [place] [address] Jan, [facility] [address] [facility][1] [id number] [place] [id number] Jan, [facility] [place] [facility] [address] [facility] [id number], [place] [address] Jan, [facility] [place] [facility] [address] [facility] [id number] [place] [address] Jan, [facility] [place] [facility] [address] [facility] [id number] [place] [address] Jan, [facility] [address] [id number] [place] [id number] Jan, [facility] [address] [id number] [place] [id number] Jan, [facility] [place] [facility] [address] [id number] [place] [address] Jan, [facility] [place] [facility] [address] [id number] [place] [address] Jan, [facility] [address] [id number] [place] [id number] Jan, [facility] [address] [id number] [place] [id number] Jan, [facility] [place] [facility] [address] [facility] [id number] [place] [address] Jan, [facility] [place] [facility] [address] [facility] [id number] [place] [address] Jan, [facility] [place] [facility] [address] [id number] [place] [address] Jan, [facility] [address] [id number] [place] [id number] December, [facility] [place] [facility] [address] [facility] [id number] [place] [address] December, [facility] [place] [facility] [address] [facility] [id number] [address] December, [facility] [address] [id number] [place] [id number] December, [facility] [place] [facility] [address] [id number] [place] [address] December, [facility] [address] [id number] [place] [id number] December, [facility] [place] [facility] [address] [id number] [place] [address] December, [facility] [address] [id number] [place] [id number] December, [facility] [place] [facility] [address] [facility] [id number] [place] [address] December, [facility] [address] [facility][1] [id number] [place] [id number] Nov, [facility] [place] [facility] [address] [facility] [id number] [place] [address] Nov, [facility] [address] [facility][1] [id number][place] [id number] Nov, [facility] [place] [facility] [address] [facility] [id number] [place] [address] Nov, [facility] [place] [facility] [address] [facility] [id number] [place] [address] Nov, [facility] [place] [facility] [id number] [place] [address] Nov, [facility] [place] [facility] [address] [id number] [address] Oct, [facility] [address] [facility][1] [id number] [place] [id number] Oct, [facility] [place] [facility] [address] [id number] [address] Oct, [facility] [address] [facility][1] [id number][place] [id number] Oct, [facility] [place] [facility] [address] [facility] [id number], [place] [address] Oct, [facility] [address] [facility][1] [id number] [place] [id number] Sep, [facility] [place] [facility] [address] [facility] [id number], [place] [address] Sep, [facility] [address] [facility][1] [id number] [place] [id number] Aug, [facility] [place] [facility] [address] [id number] [address] Aug, [facility] [address] [id number] [place] [id number] Aug, [facility] [place] [facility] [address] [facility] [id number] [place] [address] Aug, [facility] [place] [facility] [address] [facility] [id number] [place] [address] Aug, [facility] [address] [id number] [place] [id number] Aug, [facility] [place] [facility] [address] [facility] [id number] [place] [address] Aug, [facility] [place] [facility] [address] [facility] [id number] [place] [address] Aug, [facility] [address] [facility][1] [id number] [place] [id number] Aug, [facility] [place] [facility] [id number] [place] [address] Aug, [facility] [address] [facility][1] [id number][place] [id number] Jul, [facility] [place] [facility] [address] [facility] [id number], [place] [address] Jul, [facility] [address] [facility][1] [id number][place] [id number] Jul, [facility] [place] [facility] [address] [facility] [id number], [place] [address] Jul, [facility] [address] [id number][place] [id number] Jul, [facility] [place] [facility] [address] [facility] [id number], [place] [address] Jul, [facility] [address] [id number][place] [id number] Jul, [facility] [place] [facility] [address] [facility] [id number], [place] [address] Jul, [facility] [address] [id number][place] [id number] Jun, [facility] [address] [id number], [place] [address] Jun, [facility] [address] [id number][place] [id number] Jun, [facility] [address] [facility] [id number], [place] [address] Jun, [facility] [address] [facility] [id number], [place] [address] Jun, [facility] [address] [facility] [id number] [address] Jun, [facility] [address] [id number] [place] [id number] Apr, [facility] [address] [id number] [place] [id number] Mar, [facility] [address] [id number] [place] [id number] Mar, [facility] [address] [id number] [place] [id number] Feb, [facility] [address] [id number] [place] [id number] Feb, [facility] [address] [id number] [place] [id number] Feb, [facility] [address] [id number][place] [id number] December, [facility] [address] [id number][place] [id number] December, [facility] [address] [id number], [place] [address] December, [facility] [address] [id number] [place] [id number] December, [facility] [address] [id number] [place] [id number] December, [facility] [address] [id number], [place] [id number] Nov, [facility] [address] [id number] [place] [id number] Nov, [facility] [address] [id number] [place] [id number] Nov, [facility] [address] [id number] [place] [id number] Oct, [facility] [address] [id number] [place] [id number] Sep, [facility] [address] [id number] [place] [id number] Aug, [facility] [address] [id number], [place] [address] Aug, [facility] [address] [id number] [place] [id number] Aug, [facility] [address] [id number] [place] [id number] Jul, [facility] [address] [facility] [id number], [place] [address] Jul, [facility] [address] [id number] [place] [id number] Jul, [facility] [address] [facility] [id number], [place] [address] Jul, [facility] [address] [id number], [place] [id number] Jun, [facility] [address] [facility] [id number], [place] [address] Jun, [facility] [address] [id number], [place] [id number] May, [facility] [address] [facility] [id number], [place] [address] May, [facility] [address] [id number], [place] [id number] May, [facility] [address] [facility] [id number], [place] [address] May, [facility] [address] [id number], [place] [id number] Apr, [facility] [address] [id number] [place] [id number] Apr, [facility] [address] [id number] [place] [id number] Mar, [facility] [address] [id number] [place] [id number] Mar, [facility] [address] [id number] [place] [id number] Feb, [facility] [address] [id number] [place] [id number] Feb, [facility] [address] [id number] [place] [id number] Jan, [facility] [address] [id number] [place] [id number] Jan, [facility] [address] [id number] [place] [id number] Jan, [facility] [address] [id number] [place] [id number] Jan, [facility] [address] [id number] [place] [id number] December, [facility] [address] [id number] [place] [id number] December, [facility] [id number], [place] [address] Nov, [facility] [address] [id number] [place] [id number] Nov, [facility] [address] [id number] [place] [id number] Nov, [facility] [address] [id number] [place] [id number] Nov, [facility] [address] [id number] [place] [id number] Nov, [facility] [id number] [place] [address] Oct, [facility] [id number] [place] [address] Oct, [facility] [address] [id number] [place] [id number] Oct, [facility] [address] [id number] [place] [id number] Oct, [facility] [address] [id number] [place] [id number] Oct, [facility] [address] [id number] [place] [id number] Oct, [facility] [address] [id number] [place] [id number] Oct, [facility] [address] [id number] [place] [id number] Oct, [facility] [address] [id number] [place] [id number] Oct, [facility] [address] [facility] [id number], [place] [address] Oct, [facility] [address] [id number] [place] [id number] Sep, [facility] [address] [id number] [place] [id number] Sep, [facility] [address] [id number] [place] [id number] Aug, [facility] [address] [id number] [place] [id number] Aug, [facility] [address]65100[place], [place] [address] Jul, [facility] [address]65100[place], [place] [address] Jul, [facility] [id number] [place] [address] Jul, [facility] [address]65[address], [place] [address] Jul, [facility] [id number], [place] [address] Jul, [facility] [address] [id number], [place] [address] Jul, [facility] [id number], [place] [address] Jul, [facility] [address] [id number], [place] [address] Jul, [facility] [address], [place] [address] Jul, [facility] [address]65[address], [place] [address] Jul, [facility] [id number] [place] [address] Jul, [facility] [id number] [place] [address] Jul, [facility] [address], [place] [address] Jul, [facility] [address] [id number], [place] [address] Jul, IMMUNIZATIONS No Known Immunizations SOCIAL HISTORY Never Assessed REASON FOR VISIT RX-Folic acid refill PLAN OF CARE VITAL SIGNS MEDICATIONS Medication Instructions Dosage Frequency Start Date End Date Duration Status Folic Acid 1 mg Orally Once a day 1 tablet 24h 0 Active RESULTS No Results PROCEDURES No Known [...] Medical History Osteoporosis Medical History Carotid US 11-2016 Right mild dx 1-39% Left Severe Dx [...] Surgical History Left eye retinal eye repair ([facility]) 06/2014 Surgical History amputation, toe-right third toe ([facility]) 2013 Surgical History Right eye retinal eye repair ([facility]) 09/2014 Surgical History heart cath [...]
--- OUTSIDE RECORDS SUMMARY | 2019-04-03 06:31 | XMS REPORT ---
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 Active 148668031 Problem 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 Active 470502269 Problem Type 2 diabetes mellitus with diabetic polyneuropathy E11.42 Active 303189074 Problem Hypercholesterolemia E78.0 Active 00457010 Problem Fatigue, unspecified type R53.83 Active 37697071 Problem Personal history of carotid stenosis Z86.79 Active 414352396 Problem Uses walker Z99.89 Active 888485888 Problem Type 2 diabetes mellitus with diabetic neuropathy E11.40 Active 66488061 Problem Aphasia R47.01 Active 84483419 Problem S/P coronary artery stent placement Z95.5 Active 819076715 Problem Type 2 diabetes mellitus with diabetic retinopathy, macular edema presence unspecified, with unspecified retinopathy severity E11.319 Active 84150167 Problem Osteomyelitis of right foot, unspecified chronicity M86.9 Active 88431674 Problem CKD (chronic kidney disease), stage 3 (moderate) N18.3 Active 563450530 Problem Essential hypertension I10 Active 84185101 Problem GERD without esophagitis K21.9 Active 245426449 Problem Insulin long-term use Z79.4 Active 581619349 Problem CKD (chronic kidney disease) stage 3, GFR 30-59 ml/min N18.3 Active 577204245 Problem Type 2 diabetes mellitus with diabetic peripheral angiopathy without gangrene E11.51 Active 870235322 Problem Chronic kidney disease, unspecified N18.9 Active 959552107 Problem Coronary artery disease involving peters[place] coronary artery of [place] heart without angina pectoris I25.10 Active 0862786787191 Problem Mixed hyperlipidemia E78.2 Active 184963476 Problem Hyperlipidemia, unspecified hyperlipidemia E78.5 Active 68510009 Problem Obesity (BMI 30.0-34.9) E66.9 Active [id number] Problem Chronic obstructive pulmonary disease, unspecified COPD type J44.9 Active 17660652 Problem Frequent falls R29.6 Active 113833770 Problem Peripheral vascular disease I73.9 Active 790390360 Problem Chronic diarrhea K52.9 Active 584407498 Problem Other chronic pain G89.29 Active 87347286 Problem Full incontinence of feces R15.9 Active 459659381342207 Problem Major depressive disorder, single episode, mild F32.0 Active 99245133 Problem Pain in left shoulder M25.512 Active 75954957 Problem Ulcer of left foot, unspecified ulcer stage L97.529 Active 16882577 Problem Chronic pain syndrome G89.4 Active 967243467 Problem Diabetes type 2, uncontrolled E11.65 Active 520302905 Problem High risk medication use Z79.899 Active 936488418 Problem Fecal urgency R15.2 Active 32049395 Problem Functional diarrhea K59.1 Active 66129710 Problem Type 2 diabetes mellitus with foot ulcer E11.621 Active 580363325 Problem Mixed stress and urge urinary incontinence N39.46 Active 570296841 Problem Chronic fatigue R53.82 Active 14721193 ALLERGIES No Information ENCOUNTERS Encounter Location Date Diagnosis [id number] [place] [address] [id number] December, Bilateral low back pain without sciatica M54.5 [facility] [address] [place] [address] [id number] Nov, Bilateral low back pain without sciatica M54.5 [facility] [address] [place] [address] [id number] Oct, Bilateral low back pain without sciatica M54.5 [facility] [id number] [place] [address] [id number] Oct, [facility] [address] [place] [phone] Oct, [facility] [address] [place] [address] [id number] Sep, Other chronic pain G89.29 and Diabetes type 2, uncontrolled E11.65 [facility] [id number] [place] [address] [id number] Sep, Type 2 diabetes mellitus with diabetic neuropathy E11.40 ; Atherosclerosis of petersburg artery of both lower extremities, with unspecified presence of clinical manifestation I70.203 and Ulcer of left foot, unspecified ulcer stage L97.529 [facility] [address] [id number] [place] [id number] Sep, Bilateral low back pain without sciatica M54.5 [facility] [place] [address] [id number] [place] [id number] Aug, Bilateral low back pain without sciatica M54.5 [facility] [facility] [address] [id number] [place] [id number] Aug, [facility] [place] [address] [id number] [place] [id number] Aug, Essential hypertension I10 [facility] [place] [id number] [place] [address] [id number] Aug, [facility] [place] [id number] [place] [address] [id number] Jul, [facility] [place] [address] [id number] [place] [id number] Jul, Bilateral low back pain without sciatica M54.5 [facility] [address] [id number] [place] [id number] Jul, Hyperlipidemia, unspecified hyperlipidemia E78.5 [facility] [place] [id number] [place] [address] [id number] Jul, [facility] [place] [id number] [place] [address] [id number] Jul, Type 2 diabetes mellitus with diabetic neuropathy E11.40 [facility] [id number] [place] [address] [id number] Jun, [facility] [place] [id number] [place] [address] [id number] Jun, Bilateral low back pain without sciatica M54.5 [facility] [place] [id number] [place] [address] [id number] Jun, Chronic fatigue R53.82 [facility] [place] [address] [id number] [id number] Jun, Type 2 diabetes mellitus with diabetic 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 and Bilateral low back pain without sciatica M54.5 [facility] [id number] [place] [address] [id number] May, Other chronic pain G89.29 [facility] [id number], [place] [id number] May, Diabetes type 2, uncontrolled E11.65 [facility] [address] [address] 16 May, 2018 Type 2 diabetes mellitus with diabetic neuropathy E11.40 ; Coronary artery disease involving peters[place] coronary artery of [place] heart without angina pectoris I25.10 and Major depressive disorder, single episode, mild F32.0 [facility] [id number], [place] [id number] May, [facility] [id number], [place] [id number] May, [facility] [id number], [place] [id number] May, [facility] [id number], [place] [id number] Apr, Other chronic pain G89.29 [place] [address] [facility] [address] [id number][place] [id number] 05 Apr, 2018 [facility] [id number], [place] [id number] Apr, Essential hypertension I10 [facility] [id number], [place] [id number] Mar, Other chronic pain G89.29 [facility] [id number], [place] [id number] Mar, [facility] [id number], [place] [id number] Feb, Other chronic pain G89.29 [facility] [id number], [place] [id number] Feb, Diabetes type 2, uncontrolled E11.65 ; Type 2 diabetes mellitus with diabetic retinopathy, macular edema presence unspecified, with unspecified retinopathy severity E11.319 and Bilateral low back pain without sciatica M54.5 [facility] [id number] [place] [address] [id number] Feb, [facility] [id number] [place] [address] [id number] Feb, Diabetes type 2, uncontrolled E11.65 [facility] [id number] [place] [address] [id number] Feb, Other chronic pain G89.29 [facility] [id number] [place] [address] [id number] Jan, [facility] [id number] [place] [address] [id number] Jan, [facility] [id number] [place] [address] [id number] Jan, [facility] [id number] [place] [address] [id number] Jan, Other chronic pain G89.29 [facility] [id number] [place] [address] [id number] December, Mixed stress and urge urinary incontinence N39.46 [facility] [id number] [place] [address] [id number] December, Chronic fatigue R53.82 [facility] [id number] [place] [address] [id number] December, Other chronic pain G89.29 [facility] [id number] [place] [address] [id number] December, Diabetes type 2, uncontrolled E11.65 ; [...] type J44.9 and Other chronic pain G89.29 [facility] [address]005[address]100[place] [address] December, [place] [id number] [place] [address] [id number] December, Medicare annual wellness visit, subsequent Z00.00 ; Type 2 diabetes mellitus with diabetic polyneuropathy E11.42 ; Chronic obstructive pulmonary disease, unspecified COPD type J44.9 ; Depression F32.9 ; Peripheral vascular disease I73.9 ; Coronary artery disease involving p[place] coronary artery of p[place] heart without angina pectoris I25.10 ; Hypercholesterolemia E78.0 ; GERD without esophagitis K21.9 and Chronic kidney disease, unspecified N18.9 [place] [id number] [place] [address] [id number] December, Mixed stress and urge urinary incontinence N39.46 ; Full incontinence of feces R15.9 ; Fecal urgency R15.2 ; Functional diarrhea K59.1 and Type 2 diabetes mellitus with diabetic neuropathy E11.40 [place] [id number] [place] [address] [id number] Nov, Other chronic pain G89.29 [place] [id number] [place] [address] [id number] Oct, [place] [id number] [place] [address] [id number] Oct, [place] [id number] [place] [address] [id number] Oct, Other chronic pain G89.29 [place] [id number] [place] [address] [id number] Sep, Other chronic pain G89.29 [place] [id number] [place] [address] [id number] Aug, CKD (chronic kidney disease), stage 3 (moderate) N18.3 ; Anemia, unspecified type D64.9 and Dilated pore of Ly L70.8 [address] [place] [address] [id number] Aug, Other chronic pain G89.29 ; Pain in left shoulder M25.512 ; High risk medication use Z79.899 ; Uses walker Z99.89 ; Diabetes type 2, uncontrolled E11.65 and Depression F32.9 [place] [id number] [place] [address] [id number] Aug, Chronic diarrhea K52.9 [place] [id number] [place] [address] [id number] Aug, Chronic diarrhea K52.9 ; Type 2 diabetes mellitus with diabetic neuropathy E11.40 ; Diabetes type 2, uncontrolled E11.65 ; Insulin long-term use Z79.4 ; Chronic obstructive pulmonary disease, unspecified COPD type J44.9 ; Chronic pain syndrome G89.4 ; Pain in left shoulder M25.512 ; Uses walker Z99.89 ; S/P coronary artery stent placement Z95.5 ; Mixed hyperlipidemia E78.2 and Essential hypertension I10 [place] [id number] [place] [address] [id number] Aug, [address] [id number] Jul, Diabetes type 2, uncontrolled E11.65 [place] [id number] [place] [address] [id number] Jul, Diabetes type 2, uncontrolled E11.65 ; Type 2 diabetes mellitus with diabetic neuropathy E11.40 ; Insulin long-term use Z79.4 and Chronic obstructive pulmonary disease, unspecified COPD type J44.9 [place] [id number] [place] [address] [id number] Jun, [address] [id number] Jun, Essential hypertension I10 [place] [id number] [place] [address] [id number] Jun, Essential hypertension I10 [address] [id number] Jun, Type 2 diabetes mellitus with diabetic neuropathy E11.40 ; Type 2 diabetes mellitus with diabetic polyneuropathy E11.42 ; S/P coronary artery stent placement Z95.5 ; Obesity (BMI 30.0-34.9) E66.9 ; Mixed hyperlipidemia E78.2 ; Frequent falls R29.6 ; Chronic obstructive pulmonary disease, unspecified COPD type J44.9 ; Essential hypertension I10 ; Insulin long-term use Z79.4 and High risk medication use Z79.899 [address] [place] [address] [id number] May, Diarrhea, unspecified type R19.7 ; Type 2 diabetes mellitus with diabetic neuropathy E11.40 ; Chronic obstructive pulmonary disease, unspecified COPD type J44.9 ; S/P coronary artery stent placement Z95.5 ; High risk medication use Z79.899 ; Essential hypertension I10 ; Encounter for administration of vaccine Z23 and Encounter for immunization Z23 [address] [id number] [id number] May, Chronic obstructive pulmonary disease, unspecified COPD type J44.9 [address] [id number] May, Type 2 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 ; Encounter for immunization Z23 ; Needs flu shot Z23 ; Comprehensive diabetic foot examination, type 2 DM, encounter for E11.9 and Obesity (BMI 30.0-34.9) E66.9 [place] [id number] [place] [address] [id number] May, [address] [place] [address] [id number] Apr, [place] [id number] [place] [address] [id number] Apr, Essential hypertension I10 and Aphasia R47.01 [place] [id number] [place] [address] [id number] Apr, [address] [place] [address] [id number] Apr, Type 2 diabetes mellitus with diabetic neuropathy E11.40 ; Frequent falls R29.6 ; Essential hypertension I10 ; S/P coronary artery stent placement Z95.5 ; High risk medication use Z79.899 ; Hyperlipidemia, unspecified hyperlipidemia E78.5 ; CKD (chronic kidney disease), stage 3 (moderate) N18.3 ; Pain in left shoulder M25.512 and Chronic obstructive pulmonary disease, unspecified COPD type J44.9 [facility] [place] [id number] [place] [address] [id number] Mar, [facility] [place] [id number] [place] [address] [id number] Mar, Type 2 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 ; Leg wound, left, initial encounter S81.802A ; Hx of shoulder surgery Z98.890 ; Acute pain of left shoulder M25.512 and Fall, initial encounter W19.XXXA [facility] [place] [id number] [place] [address] [id number] Feb, Follow-up exam Z09 ; Hx of shoulder surgery Z98.890 ; Acute pain of left shoulder M25.512 ; Essential hypertension I10 and Leg wound, left, initial encounter S81.802A [facility] [id number] [place] [address] [id number] Feb, [facility] [id number] [place] [address] [id number] Feb, [facility] [id number] [place] [address] [id number] Feb, Chronic obstructive pulmonary disease, unspecified COPD type J44.9 [facility] [id number] [place] [address], [place] [id number] Feb, [facility] [id number] [place] [address] [id number] Jan, Generalized weakness R53.1 ; Exertional shortness of breath R06.02 and Fungal rash of trunk B36.9 [facility] [id number] [place] [address] [id number] Jan, [facility] [place] [id number] [place] [address] [id number] Jan, [facility] [place] [id number] [place] [address] [id number] Jan, [facility] [place] [id number] [place] [address] [id number] Jan, [facility] [id number] [place] [address] [id number] December, High risk medication use Z79.[address] [id number][place] [id number] December, Type 2 diabetes mellitus with diabetic neuropathy E11.40 [address] [place] [address] [id number] December, High risk medication use Z79.[id number] [place] [address] [id number] Nov, Diabetes type 2, uncontrolled E11.65 [place] [id number] [place] [address] [id number] Nov, Medicare annual wellness visit, initial Z00.00 ; Bilateral low back pain without sciatica M54.5 ; Pain in left shoulder M25.512 ; Chronic pain syndrome G89.4 ; Type 2 diabetes mellitus with diabetic polyneuropathy E11.42 ; High risk medication use Z79.899 and Encounter for immunization Z23 [address] [place] [address] [id number] Nov, Type 2 diabetes mellitus with diabetic neuropathy E11.40 ; Coronary artery disease involving [place] coronary artery of [place] heart without angina pectoris I25.10 and CKD (chronic kidney disease), stage 3 (moderate) N18.3 [address] [place] [address] [id number] Oct, Type 2 diabetes mellitus with diabetic polyneuropathy E11.42 ; Chronic pain syndrome G89.4 ; Chronic obstructive pulmonary disease, unspecified COPD type J44.9 ; Chronic kidney disease, unspecified N18.9 and Rash R21 [address] [id number] [id number] Oct, Type 2 diabetes mellitus with diabetic neuropathy E11.[address] [id number], [place] [id number] Oct, Rash R21 and Impetigo L01.[id number] [place] [address] [id number] Oct, Chronic pain syndrome G89.[address] [id number], [place] [id number] Oct, [address] [id number], [place] [id number] Sep, Sebaceous cyst L72.3 [facility] [id number] [place] [address] [id number] Sep, Sebaceous cyst L72.3 [facility] [id number] [place] [address] [id number] Sep, Chronic pain syndrome G89.4 ; Pain in left shoulder M25.512 and Effusion of olecranon bursa, left M25.422 [facility] [address] [id number] [address] Aug, [facility] [id number] [place] [address] [id number] Aug, [facility] [id number] [place] [address] [id number] Aug, Mixed hyperlipidemia E78.2 and Chronic kidney disease, unspecified N18.9 [facility] [id number] [place] [address] [id number] Jul, Type 2 diabetes mellitus with diabetic neuropathy E11.40 ; Essential hypertension I10 and S/P coronary artery stent placement Z95.5 [facility] [id number] [place] [address] [id number] Jul, 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 [place] [id number] [place] [address] [id number] Jul, Diabetes type 2, uncontrolled E11.65 ; Essential hypertension I10 and 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 [facility] [id number] [place] [address] [id number] Jul, [facility] [id number] [place] [address] [id number] Jul, [facility] [id number] [place] [address] [id number] Jul, [facility] [id number] [place] [address] [id number] Jul, Chronic obstructive pulmonary disease, unspecified COPD type J44.9 [facility] [address] [id number] [id number] Jun, CKD (chronic kidney disease), stage 3 (moderate) N18.3 and Anemia, unspecified type D64.9 [address] [place] [address] [id number] Jun, Type 2 diabetes mellitus with diabetic neuropathy E11.40 ; Decreased GFR R94.4 ; CKD (chronic kidney disease), stage 3 (moderate) N18.3 and Decreased hemoglobin R71.0 [place] [id number] [place] [address] [id number] Jun, CKD (chronic kidney disease), stage 3 (moderate) N18.3 and Anemia, unspecified type D64.9 [address] [place] [address] [id number] Jun, Type 2 diabetes mellitus with diabetic neuropathy E11.40 ; Decreased GFR R94.4 and CKD (chronic kidney disease), stage 3 (moderate) N18.3 [place] [id number] [place] [address] [id number] Jun, Type 2 diabetes mellitus with diabetic neuropathy E11.40 and Essential hypertension I10 [address] [place] [address] [id number] Jun, [place] [id number] [place] [address] [id number] Jun, [place] [id number] [place] [address] [id number] Jun, Type 2 diabetes mellitus with diabetic neuropathy E11.40 ; S/P coronary artery stent placement Z95.5 ; Chronic obstructive pulmonary disease, unspecified COPD type J44.9 ; Essential hypertension I10 ; GERD without esophagitis K21.9 ; Peripheral vascular disease I73.9 ; Mixed hyperlipidemia E78.2 and Hospital discharge follow-up Z09 [address] [place] [address] [id number] 07 Jun, 2016 [place] [id number] [place] [address] [id number] May, Depression F32.9 and Hyperlipidemia, unspecified hyperlipidemia E78.5 [facility] [address] [id number] [address] May, [address] [place] [address] [id number] May, [place] [id number] [place] [address] [id number] May, Essential hypertension I10 ; Chronic pain syndrome G89.4 ; Pain in left shoulder M25.512 ; High risk medication use Z79.899 ; Chronic obstructive pulmonary disease, unspecified COPD type J44.9 ; S/P coronary artery stent placement Z95.5 ; Personal history of carotid stenosis Z86.79 ; Hyperlipidemia, unspecified hyperlipidemia E78.5 ; Decreased GFR R94.4 and Type 2 diabetes mellitus with diabetic polyneuropathy E11.42 [place] [id number] [place] [address] [id number] May, Hemoglobin decreased R71.0 and Decreased GFR R94.4 [place] [id number] [place] [address] [id number] May, Hemoglobin decreased R71.0 and Decreased GFR R94.4 [address] [id number] [place] [address] [id number] May, [place] [id number] [place] [address] [id number] May, [id number] [place] [address] [id number] Apr, [id number] [place] [address] [id number] Apr, Type 2 diabetes mellitus with foot [...] unspecified hyperlipidemia E78.5 and Essential hypertension I10 [place] [id number] [place] [address] [id number] Apr, [facility] [id number], [place] [phone] Mar, [facility] [id number] [place] [address] [id number] Mar, [facility] [address]005[address]100[place] [address] Mar, [facility] [id number] [place] [address] [id number] Feb, [facility] [id number] [place] [address] [id number] Feb, [facility] [id number] [place] [address] [id number] Feb, [facility] [id number] [place] [address] [id number] Jan, Type 2 diabetes mellitus with diabetic polyneuropathy E11.42 ; Hypercholesterolemia E78.0 ; Chronic pain syndrome G89.4 ; Pain in left shoulder M25.512 and High risk medication use Z79.899 [facility] [id number], [place] [id number] Jan, [facility] [id number] [place] [address] [id number] Jan, [facility] [id number] [place] [address] [id number] December, [facility] [id number] [place] [address] [id number] December, [facility] [address]005[address], [place] [address] December, Diabetes type 2, uncontrolled E11.65 ; Type 2 diabetes mellitus with diabetic neuropathy E11.40 ; Peripheral vascular disease I73.9 ; 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 and 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 [facility] [id number], [place] [id number] Nov, [facility] [id number], [place] [id number] Nov, [facility] [address] [id number] [id number] Nov, [facility] [id number], [place] [id number] Nov, Right hip pain M25.551 [facility] [address]00565100[place] [address] Nov, [facility] [address]00565100[place], [place] [address] Nov, [facility] [place] [id number] [place] [address] [id number] Nov, Diabetes with neurological manifestations, type II or unspecified type, not stated as uncontrolled 250.60 [facility] [place] [id number] [place] [address] [id number] Nov, [facility] [place] [id number] [place] [address] [id number] Nov, [facility] [id number] [place] [address] [id number] Oct, Diabetes type 2, uncontrolled E11.65 ; Type 2 diabetes mellitus with diabetic neuropathy, unspecified E11.40 and Low back pain M54.5 [facility] [place] [address] [id number], [place] [id number] Oct, [facility] [place] [address] [id number], [place] [id number] Oct, [facility] [place] [address] [id number], [place] [id number] Oct, [facility] [place] [address] [id number], [place] [id number] Sep, [facility] [place] [address] [id number], [place] [id number] Sep, [facility] [address]005[address]100[place], [place] [address] Sep, [facility] [place] [address] [id number], [place] [id number] Sep, [facility] [id number], [place] [id number] Sep, [facility] [id number], [place] [id number] Aug, 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 [facility] [id number] [place] [address] [id number] Aug, [facility] [id number] [place] [address] [id number] Aug, Allergic rhinitis due to pollen J30.[id number] [place] [address] [id number] Jul, [facility] [id number] [place] [address] [id number] Jul, [place] [id number] [place] [address] [id number] Jul, [facility] [id number] [place] [address] [id number] Jun, [place] [id number] [place] [address] [id number] Jun, Thumb tendonitis M77.8 and Ringing in ear, bilateral H93.[address] [id number], [place] [id number] Jun, [place] [id number] [place] [address] [id number] May, [place] [address] [place] [id number] [place] [address] May, [facility] [address] [address] May, Pre-op evaluation Z01.818 ; Encounter for immunization Z23 ; Type 2 diabetes mellitus with diabetic peripheral angiopathy without gangrene E11.51 ; Insulin long-term use Z79.4 ; Type 2 diabetes mellitus with foot ulcer E11.621 ; Peripheral vascular disease I73.9 ; Coronary artery disease involving [place] coronary artery of [place] heart without angina pectoris I25.10 ; S/P coronary artery stent placement Z95.5 ; Osteomyelitis of right foot, unspecified chronicity M86.9 and Chronic obstructive pulmonary disease, unspecified COPD type J44.9 [place] [address]00565100[place] [address] May, [facility] [id number] [place] [address] [id number] May, [facility] [id number] [place] [address] [id number] May, Diabetes type 2, uncontrolled E11.65 ; Encounter for immunization Z23 ; Osteopenia M85.80 and Allergic rhinitis due to pollen J30.1 [facility] [id number] [place] [address] [id number] May, Lumbago 724.2 [facility] [id number] [place] [address] [id number] Apr, [facility] [id number] [place] [address] [id number] Apr, [facility] [id number] [place] [address] [id number] Apr, [facility] [id number] [place] [address] [id number] Apr, [facility] [id number] [place] [address] Mar, [facility] [id number] [place] [address] [phone] Mar, [facility] [id number] [place] [address] [id number] Mar, [facility] [id number] [place] [address] [id number] Mar, [facility] [id number] [place] [address] [id number] Mar, [facility] [id number] [place] [phone] Mar, [facility] [id number] [place] [address] [id number] Mar, [facility] [id number] [place] [address] [id number] Mar, Diabetes with neurological manifestations, type II or unspecified type, not stated as uncontrolled 250.60 and Severe obesity (BMI 35.0-35.9 with comorbidity) 278.01 [facility] [id number] [place] [address] [id number] Mar, [facility] [id number] [place] [phone] Mar, [facility] [id number] [place] [phone] Feb, [facility] [id number] [place] [address] [id number] Feb, [facility] [id number] [place] [address] [id number] Feb, [facility] [id number] [place] [address] [id number] Feb, Diabetes with neurological manifestations, type II or unspecified type, not stated as uncontrolled 250.60 [facility] [address] [id number] [place] [address] [id number] Feb, [facility] [id number] [place] [phone] Feb, [facility] [id number] [place] [address] [id number] Feb, [facility] [id number] [place] [address] [phone] Feb, Follow up V67.9 ; Diabetes with neurological manifestations, type II or unspecified type, not stated as uncontrolled 250.60 and Congestive heart failure 428.0 [facility] [place] [id number], [place] [id number] Jan, [facility] [id number], [place] [id number] Jan, [facility] [id number] [place] [address] [id number] Jan, [facility] [id number] [place] [address] [id number] December, Otitis media with effusion 381.4 ; Left arm numbness 782.0 and Osteoporosis 733.00 [facility] [place] [address] [id number], [place] [id number] December, [facility] [address] [facility] [id number] [place] [phone] Nov, [facility] [address] [place] [address] [id number], [place] [id number] Nov, Serous otitis media 381.4 and Lumbago 724.2 [facility] [place] [facility] [id number] [place] [phone] Nov, [facility] [place] [facility] [address], [place] [address] Nov, [facility] [id number], [place] [id number] Oct, [facility] [place] [facility] [address], [place] [address] Oct, [facility] [id number], [place] [id number] Oct, [facility] [place] [facility] [address], [place] [address] Oct, [facility] [id number], [place] [id number] Oct, [facility] [place] [facility] [address], [place] [address] Oct, [facility] [place] [facility] [address], [place] [address] Sep, [facility] [place] [facility] [address], [place] [address] Sep, [facility] [address] [id number], [place] [id number] Sep, [facility] [place] [facility] [address]100[place], [place] [address] Sep, [facility] [address] [id number], [place] [id number] Aug, [facility] [place] [facility] [address] [id number] [address] Aug, [facility] [address] [id number] [place] [id number] Aug, [facility] [place] [facility] [address] [facility] [id number] [address] Aug, [facility] [address] [facility] [id number] [place] [id number] Jul, [facility] [place] [facility] [address] [facility]] [id number] [address] Jul, [facility] [address] [facility] [id number] [place] [id number] Jul, [facility] [place] [facility] [address] [facility]] [id number] [address] Jul, [facility] [address] [facility] [id number] [place] [id number] Jul, [facility] [place] [facility] [address] [facility]] [id number] [address] Jul, [facility] [address] [facility] [id number], [place] [id number] Jun, [facility] [place] [facility] [address] [facility]] [id number] [address] Jun, [facility] [address] [facility] [id number], [place] [id number] May, [facility] [place] [facility] [address] [facility]] [id number] [address] May, [facility] [address] [facility] [id number], [place] [id number] May, [facility] [place] [facility] [address] [facility]] [id number] [address] May, [facility] [address] [facility] [id number], [place] [id number] May, [facility] [place] [facility] [address] [facility]] [id number] [address] May, [facility] [address] [id number], [place] [id number] May, [facility] [address] [id number] [place] [id number] May, [facility] [place] [facility] [address] [facility]] [id number], [place] [address] May, [facility] [place] [facility] [address] [facility]] [id number] [address] May, [facility] [address] [facility] [id number], [place] [id number] May, [facility] [place] [facility] [address] [facility]] [id number] [place] [address] May, [facility] [place] [facility] [address] [id number] [address] Apr, [facility] [address] [facility] [id number], [place] [id number] Apr, [facility] [place] [facility] [address], [place] [address] Apr, [facility] [address] [id number], [place] [id number] Apr, [facility] [address] [facility] [id number], [place] [id number] Apr, [facility] [place] [facility] [address], [place] [address] Apr, [facility] [place] [facility] [address] [facility]] [id number] [address] Apr, [facility] [address] [id number], [place] [id number] Apr, [facility] [place] [facility] [address] [facility]] [id number], [place] [address] Apr, [facility] [address] [facility] [id number], [place] [id number] Apr, [facility] [place] [facility] [address] [facility]] [id number] [address] Apr, [facility] [address] [id number] [place] [id number] Apr, [facility] [place] [facility] [address] [id number] [place] [address] Apr, [facility] [address] [id number] [place] [id number] Apr, [facility] [place] [facility] [address] [facility]] [id number] [address] Apr, [facility] [address] [id number] [place] [id number] Apr, [facility] [place] [facility] [address] [facility]] [id number] [address] Apr, [facility] [address] [id number] [place] [id number] Apr, [facility] [place] [facility] [address]005[address]100[place] [address] Apr, [facility] [address] [id number], [place] [id number] Mar, [facility] [place] [facility] [address] [facility]] [id number] [address] Mar, [facility] [address] [id number], [place] [id number] Mar, [facility] [address] [id number], [place] [id number] Mar, [facility] [place] [facility] [address] [facility]] [id number], [place] [address] Mar, [facility] [place] [facility] [address] [facility]] [id number] [address] Mar, [facility] [address] [id number] [place] [id number] Mar, [facility] [place] [facility] [address] [facility]] [id number] [place] [address] Mar, [facility] [address] [id number], [place] 824077174 Mar, [facility] [place] [facility] [address] [id number] [place] [address] Mar, [facility] [address] [id number] [place] [id number] Mar, [facility] [place] [facility] [address] [facility]] [id number] [place] [address] Mar, [facility] [address] [id number] [place] [id number] Mar, [facility] [place] [facility] [address] [facility]] [id number] [place] [address] Mar, [facility] [address] [id number] [place] [id number] Mar, [facility] [place] [facility] [address] [facility] 3] [id number] [place] [address] Mar, [facility] [address] [facility] [id number] [place] [id number] Mar, [facility] [place] [facility] [address] [facility] 3] [id number] [place] [address] Mar, [facility] [address] [id number] [place] [id number] Mar, [facility] [place] [facility] [address] [facility]] [id number] [place] [address] Mar, [facility] [address] [facility] [id number] [place] [id number] Feb, [facility] [place] [facility] [address] [facility]] [id number] [place] [address] Feb, [facility] [address] [id number] [place] [id number] Feb, [facility] [place] [facility] [address] [facility] 3] [id number] [place] [address] Feb, [facility] [address] [id number] [place] [id number] Feb, [facility] [place] [facility] [address] [facility]] [id number] [place] [address] Feb, [facility] [address] [id number] [place] [id number] Feb, [facility] [place] [facility] [address] [id number] [place] [address] Feb, [facility] [address] [id number] [place] [id number] Feb, [facility] [place] [facility] [address] [id number] [place] [address] Feb, [facility] [address] [id number] [place] [id number] Feb, [facility] [place] [facility] [address] [id number] [place] [address] Feb, [facility] [address] [id number] [place] [id number] Feb, [facility] [place] [facility] [address] [facility] [id number] [place] [address] Feb, [facility] [address] [id number] [place] [id number] Feb, [facility] [place] [facility] [address] [facility]] [id number] [place] [address] Feb, [facility] [address] [id number] [place] [id number] Feb, [facility] [place] [facility] [address] [id number] [place] [address] Feb, [facility] [address] [id number] [place] [id number] Feb, [facility] [address] [id number] [place] [id number] Feb, [facility] [place] [facility] [address] [facility][NOTE 3] [id number] [place] [address] Feb, [facility] [place] [facility] [address] [facility][NOTE 3] [id number] [place] [address] Feb, [facility] [address] [id number] [place] [id number] Feb, [facility] [place] [facility] [address] [facility][NOTE 3] [id number] [address] Feb, [facility] [address] [id number] [place] [id number] Feb, [facility] [place] [facility] [address] [facility][NOTE 3] [id number] [address] Feb, [facility] [address] [id number] [place] [id number] Feb, [facility] [place] [facility] [address] [facility][NOTE 3] [id number] [place] [address] Feb, [facility] [address] [facility] [id number] [place] [id number] Jan, [facility] [place] [facility] [address] [facility][NOTE 3] [id number] [address] Jan, [facility] [place] [facility] [address] [facility][NOTE 3] [id number] [address] Jan, [facility] [place] [facility] [address] [facility][NOTE 3] [id number] [address] Jan, [facility] [place] [facility] [address] [facility][NOTE 3] [id number] [address] Jan, [facility] [place] [facility] [address] [facility][NOTE 3] [id number] [address] Jan, [facility] [address] [facility] [id number][place] [id number] Jan, [facility] [place] [facility] [address] [facility][NOTE 3] [id number] [address] Jan, [facility] [place] [facility] [address] [facility][NOTE 3] [id number] [address] Jan, [facility] [place] [facility] [address] [facility][NOTE 3] [id number] [address] Jan, [facility] [address] [id number][place] [id number] Jan, [facility] [address] [id number][place] [id number] Jan, [facility] [place] [facility] [address] [id number] [place] [address] Jan, [facility] [place] [facility] [address] [facility][NOTE 3] [id number] [place] [address] Jan, [facility] [address] [id number] [place] [id number] Jan, [facility] [address] [facility] [id number][place] [id number] Jan, [facility] [place] [facility] [address] [id number] [place] [address] Jan, [facility] [place] [facility] [address] [facility][NOTE 3] [id number] [place] [address] Jan, [facility] [place] [facility] [address] [facility][NOTE 3] [id number] [place] [address] Jan, [facility] [address] [facility] [id number][place] [id number] December, [facility] [place] [facility] [address] [facility][NOTE 3] [id number] [place] [address] December, [facility] [place] [facility] [address] [facility][NOTE 3] [id number] [address] December, [facility] [address] [facility] [id number][place] [id number] December, [facility] [place] [facility] [address] [facility][NOTE 3] [id number] [address] December, [facility] [address] [facility] [id number][place] [id number] December, [facility] [place] [facility] [address] [id number] [address] December, [facility] [address] [facility] [id number][place] [id number] December, [facility] [place] [facility] [address] [facility]NOTE 3] [id number] [place] [address] December, [facility] [address] [facility] [id number] [place] [id number] Nov, [facility] [place] [facility] [address] [facility][NOTE 3] [id number] [address] Nov, [facility] [address] [facility] [id number] [place] [id number] Nov, [facility] [place] [facility] [address] [facility][NOTE 3] [id number] [place] [address] Nov, [facility] [place] [facility] [address] [facility][NOTE 3] [id number] [address] Nov, [facility] [place] [facility] [address] [facility][NOTE 3] [id number] [place] [address] Nov, [facility] [place] [facility] [address] [id number] [address] Oct, [facility] [id number][place] [id number] Oct, [facility] [place] [facility] [address]00565100[place] [address] Oct, [facility] [address] [facility] [id number], [place] [id number] Oct, [facility] [place] [facility] [address]00565100[place] [address] Oct, [facility] [address] [facility] [id number] [place] [id number] Sep, [facility] [place] [facility] [address] [facility][NOTE 3] [id number] [address] Sep, [facility] [address] [facility] [id number] [place] [id number] Aug, [facility] [place] [facility] [address] [facility][NOTE 3] [id number] [address] Aug, [facility] [address] [facility] [id number][place] [id number] Aug, [facility] [place] [facility] [address]65100[place] [address] Aug, [facility] [address] [facility][NOTE 3] [id number] [place] [address] Aug, [facility] [address] [id number] [place] [id number] Aug, [facility] [place] [facility] [address] [facility][NOTE 3] [id number] [place] [address] Aug, [facility] [place] [facility] [address] [facility][NOTE 3] [id number] [place] [address] Aug, [facility] [address] [facility] [id number] [place] [id number] Aug, [facility] [place] [facility] [address] [facility][NOTE 3] [id number] [place] [address] Aug, [facility] [address] [id number] [place] [id number] Jul, [facility] [id number] [address] Jul, [facility] [address] [facility] [id number], [place] [id number] Jul, [facility] [address] [id number] [address] Jul, [facility] [address] [facility] [id number], [place] [id number] Jul, [facility] [place] [facility] [address] [facility][NOTE 3] [id number] [address] Jul, [facility] [address] [facility] [id number], [place] [id number] Jul, [facility] [place] [facility] [address] [facility][NOTE 3] [id number] [address] Jul, [facility] [address] [id number], [place] [id number] Jun, [facility] [place] [facility] [address] [facility][NOTE 3] [id number] [address] Jun, [facility] [address] [id number], [place] [id number] Jun, [facility] [address] [id number] [place] [address] Jun, [facility] [address] [facility][NOTE 3] [id number] [address] Jun, [facility] [address] [facility][NOTE 3] [id number] [place] [address] Jun, [facility] [address] [id number] [place] [id number] Apr, [facility] [address] [id number] [place] [id number] Mar, [facility] [address] [id number] [place] [id number] Mar, [facility] [address] [id number] [place] [id number] Feb, [facility] [address] [id number] [place] [id number] Feb, [facility] [address] [id number] [place] [id number] Feb, [facility] [address] [id number] [place] [id number] December, [facility] [address] [id number] [place] [id number] December, [facility] [address] [facility][NOTE 3] [id number], [place] [address] December, [facility] [address] [id number] [place] [id number] December, [facility] [address] [id number] [place] [id number] December, [facility] [address] [id number] [place] [id number] Nov, [facility] [address] [id number] [place] [id number] Nov, [facility] [address] [id number] [place] [id number] Nov, [facility] [address] [id number] [place] [id number] Oct, [facility] [address] [id number] [place] [address] Sep, [facility] [address] [id number] [place] [address] Aug, [facility] [address] [facility][NOTE 3] [id number] [address] Aug, [facility] [address] [id number] [place] [id number] Aug, [facility] [address] [id number] [place] [id number] Jul, [facility] [address] [facility][NOTE 3] [id number] [address] Jul, [facility] [address] [id number], [place] [address] Jul, [facility] [address]00565100[place] [address] Jul, [facility] [address] [id number], [place] [id number] Jun, [facility] [address]00565100[place] [address] Jun, [facility] [id number], [place] [id number] May, [facility] [address] [id number] [address] May, [facility] [address] [id number], [place] [address] May, [facility] [place] [facility] [address] [facility][NOTE 3] [id number] [address] May, [facility] [address] [id number], [place] [address] Apr, [facility] [address] [id number] [place] [id number] Apr, [facility] [address] [id number] [place] [id number] Mar, [facility] [address] [id number] [place] [id number] Mar, [facility] [address] [id number] [place] [id number] Feb, [facility] [address] [id number] [place] [address] Feb, [facility] [address] [id number] [place] [id number] Jan, [facility] [address] [id number] [place] [id number] Jan, [facility] [address] [id number] [place] [id number] Jan, [facility] [address] [id number] [place] [address] Jan, [facility] [address] [id number] [place] [id number] December, [facility] [address] [id number] [place] [id number] December, [facility] [place] [facility] [address] [facility][NOTE 3] [id number] [address] Nov, [facility] [address] [id number] [place] [id number] Nov, [facility] [address] [id number] [place] [id number] Nov, [facility] [address] [id number] [place] [id number] Nov, [facility] [address] [id number] [place] 984[address]12[address] Nov, [facility] [address] [facility][NOTE 3] [id number] [address] Oct, [facility] [place] [facility] [address] [facility][NOTE 3] [id number] [address] Oct, [facility] [address] [id number] [place] [id number] Oct, [facility] [address] [id number] [place] [id number] Oct, [facility] [address] [id number] [place] [id number] Oct, [facility] [address] [id number] [place] [id number] Oct, [facility] [address] [id number] [place] [address] Oct, [facility] [address] [id number] [place] [id number] Oct, [facility] [address] [id number] [place] [id number] Oct, [facility] [address] [facility][NOTE 3] [id number] [address] Oct, [facility] [address] [id number] [place] [address] Sep, [facility] [address] [id number] [place] [id number] Sep, [facility] [address] [id number] [place] [id number] Aug, [facility] [address] [id number] [place] [id number] Aug, [facility] [address]00565100[place] [address] Jul, [facility] [place] [facility] [address]00565100[place] [address] Jul, [facility] [place] [facility] [address]00565100[place] [address] Jul, [facility] [place] [facility] [address]65100[place] [address] Jul, [facility] [place] [facility] [address] [id number] [address] Jul, [facility] [place] [facility] [address]00565100[place] [address] Jul, [facility] [place] [facility] [address]00565100[place] [address] Jul, [facility] [address] [id number] [address] Jul, [facility] [address] [facility][NOTE 3] [id number] [address] Jul, [facility] [address] [id number] [address] Jul, [facility] [address]00565100[place] [address] Jul, [facility] [address]00565100[place] [address] Jul, [facility] [id number] [place] [address] Jul, [facility] [address]00565100[place] [address] Jul, IMMUNIZATIONS No Known Immunizations SOCIAL HISTORY Never Assessed REASON FOR VISIT [facility] [place] VITAL SIGNS MEDICATIONS Unknown Medications RESULTS No Results PROCEDURES No Known procedures INSTRUCTIONS MEDICATIONS ADMINISTERED No Known Medications MEDICAL (GENERAL) HISTORY Type Description Date Medical History peripheral vascular disease s/p angioplasty w/ stent R leg Medical History hypertension Medical 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
--- OUTSIDE RECORDS SUMMARY | 2019-04-03 06:32 | XMS REPORT ---
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 Active 822362634 Problem 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 Active 701245222 Problem Type 2 diabetes mellitus with diabetic polyneuropathy E11.42 Active 139961522 Problem Hypercholesterolemia E78.0 Active 47808953 Problem Fatigue, unspecified type R53.83 Active 62311177 Problem Personal history of carotid stenosis Z86.79 Active 977018221 Problem Uses walker Z99.89 Active 920699775 Problem Type 2 diabetes mellitus with diabetic neuropathy E11.40 Active 94229417 Problem Aphasia R47.01 Active 00659445 Problem S/P coronary artery stent placement Z95.5 Active 244765924 Problem Type 2 diabetes mellitus with diabetic retinopathy, macular edema presence unspecified, with unspecified retinopathy severity E11.319 Active 22437199 Problem Osteomyelitis of right foot, unspecified chronicity M86.9 Active 49387544 Problem CKD (chronic kidney disease), stage 3 (moderate) N18.3 Active 330028062 Problem Essential hypertension I10 Active 95806440 Problem GERD without esophagitis K21.9 Active 159896013 Problem Insulin long-term use Z79.4 Active 200748819 Problem CKD (chronic kidney disease) stage 3, GFR 30-59 ml/min N18.3 Active 086453652 Problem Type 2 diabetes mellitus with diabetic peripheral angiopathy without gangrene E11.51 Active 255370198 Problem Chronic kidney disease, unspecified N18.9 Active 678037698 Problem Coronary artery disease involving chalk[place]ik coronary artery of chalk[place]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 Active 2076660134315 Problem Mixed hyperlipidemia E78.2 Active 101301699 Problem Hyperlipidemia, unspecified hyperlipidemia E78.5 Active 30331766 Problem Obesity (BMI 30.0-34.9) E66.9 Active 311449942039283 Problem Chronic obstructive pulmonary disease, unspecified COPD type J44.9 Active 96277549 Problem Frequent falls R29.6 Active 802129074 Problem Peripheral vascular disease I73.9 Active 146509378 Problem Chronic diarrhea K52.9 Active 641722445 Problem Other chronic pain G89.29 Active 45628232 Problem Full incontinence of feces R15.9 Active 813720270166802 Problem Major depressive disorder, single episode, mild F32.0 Active 65172213 Problem Pain in left shoulder M25.512 Active 24297156 Problem Ulcer of left foot, unspecified ulcer stage L97.529 Active 96083764 Problem Chronic pain syndrome G89.4 Active 000816501 Problem Diabetes type 2, uncontrolled E11.65 Active 250966524 Problem High risk medication use Z79.899 Active 138986722 Problem Fecal urgency R15.2 Active 40192408 Problem Functional diarrhea K59.1 Active 24016608 Problem Type 2 diabetes mellitus with foot ulcer E11.621 Active 682928883 Problem Mixed stress and urge urinary incontinence N39.46 Active 512846811 Problem Chronic fatigue R53.82 Active 68689985 ALLERGIES No Information ENCOUNTERS Encounter Location Date Diagnosis [id number] [place] [address] [id number] December, Bilateral low back pain without sciatica M54.5 [facility] [address] [place] [address] [id number] Nov, Bilateral low back pain without sciatica M54.5 [facility] [address] [place] [address] [id number] Oct, Bilateral low back pain without sciatica M54.5 [facility] [id number] [place] [address] [id number] Oct, [facility] [address] [place] [id number] Oct, [facility] [address] [place] [address] [id number] Sep, Other chronic pain G89.29 and Diabetes type 2, uncontrolled E11.65 [facility] [address] [id number] [place] [address] [id number] Sep, Type 2 diabetes mellitus with diabetic neuropathy E11.40 ; Atherosclerosis of [place] artery of both lower extremities, with unspecified presence of clinical manifestation I70.203 and Ulcer of left foot, unspecified ulcer stage L97.529 [facility] [address] [id number] [place] [id number] Sep, Bilateral low back pain without sciatica M54.5 [facility] [place] [address] [id number] [place] [id number] Aug, Bilateral low back pain without sciatica M54.5 [facility] [address] [id number] [place] [id number] Aug, [facility] [address] [id number] [place] [id number] Aug, Essential hypertension I10 [facility] [id number] [place] [address] [id number] Aug, [facility] [id number] [place] [address] [id number] Jul, [facility] [address] [id number] [place] [id number] Jul, Bilateral low back pain without sciatica M54.5 [facility] [address] [id number] [place] [id number] Jul, Hyperlipidemia, unspecified hyperlipidemia E78.5 [facility] [id number] [place] [address] [id number] Jul, [facility] [id number] [place] [address] [id number] Jul, Type 2 diabetes mellitus with diabetic neuropathy E11.40 [facility] [address] [id number] [place] [address] [id number] Jun, [facility] [address] [id number] [place] [address] [id number] Jun, Bilateral low back pain without sciatica M54.5 [facility] [id number] [place] [address] [id number] Jun, Chronic fatigue R53.82 [facility] [address] [id number] [place] [id number] Jun, Type 2 diabetes mellitus with diabetic polyneuropathy E11.42 and Bilateral low back pain without sciatica M54.5 [facility] [id number] [place] [address] [id number] May, Other chronic pain G89.29 [facility] [id number] [place] [id number] May, Diabetes type 2, uncontrolled E11.65 [facility] [address] [address] 16 May, 2018 Type 2 diabetes mellitus with diabetic neuropathy E11.40 ; Coronary artery disease involving chalkyits[place] coronary artery of chalky[place] heart without angina pectoris I25.10 and Major depressive disorder, single episode, mild F32.0 [facility] [id number] [place] [id number] May, [facility] [id number] [place] [id number] May, [facility] [id number] [place] [id number] May, [facility] [id number] [place] [id number] Apr, Other chronic pain G89.29 [place] [id number] [facility] [id number] [id number] 05 Apr, 2018 [facility] [id number] [place] [id number] Apr, Essential hypertension I10 [facility] [id number] [place] [id number] Mar, Other chronic pain G89.29 [facility] [id number] [place] [id number] Mar, [facility] [id number] [place] [id number] Feb, Other chronic pain G89.29 [facility] [id number] [place] [id number] Feb, Diabetes type 2, uncontrolled E11.65 ; Type 2 diabetes mellitus with diabetic retinopathy, macular edema presence unspecified, with unspecified retinopathy severity E11.319 and Bilateral low back pain without sciatica M54.5 [facility] [id number] [place] [address] [id number] Feb, [facility] [id number] [place] [address] [id number] Feb, Diabetes type 2, uncontrolled E11.65 [facility] [address] [address] [id number] [place] [address] [id number] Feb, Other chronic pain G89.29 [facility] [id number] [place] [address] [id number] Jan, [facility] [id number] [place] [address] [id number] Jan, [facility] [id number] [place] [address] [id number] Jan, [facility] [id number] [place] [address] [id number] Jan, Other chronic pain G89.29 [facility] [id number] [place] [address] [id number] December, Mixed stress and urge urinary incontinence N39.46 [facility] [id number] [place] [address] [id number] December, Chronic fatigue R53.82 [facility] [id number] [place] [address] [id number] December, Other chronic pain G89.29 [facility] [id number] [place] [address] [id number] December, Diabetes type 2, uncontrolled E11.65 ; [...] type J44.9 and Other chronic pain G89.29 [facility] [address] [address] December, [place] [id number] [place] [address] [id number] December, Medicare annual wellness visit, subsequent Z00.00 ; Type 2 diabetes mellitus with diabetic polyneuropathy E11.42 ; Chronic obstructive pulmonary disease, unspecified COPD type J44.9 ; Depression F32.9 ; Peripheral vascular disease I73.9 ; Coronary artery disease involving chalky[place] coronary artery of chalky[place] heart without angina pectoris I25.10 ; Hypercholesterolemia E78.0 ; GERD without esophagitis K21.9 and Chronic kidney disease, unspecified N18.9 [place] [id number] [place] [address] [id number] December, Mixed stress and urge urinary incontinence N39.46 ; Full incontinence of feces R15.9 ; Fecal urgency R15.2 ; Functional diarrhea K59.1 and Type 2 diabetes mellitus with diabetic neuropathy E11.40 [place] [id number] [place] [address] [id number] Nov, Other chronic pain G89.29 [place] [id number] [place] [address] [id number] Oct, [place] [id number] [place] [address] [id number] Oct, [place] [id number] [place] [address] [id number] Oct, Other chronic pain G89.29 [place] [id number] [place] [address] [id number] Sep, Other chronic pain G89.29 [place] [id number] [place] [address] [id number] Aug, CKD (chronic kidney disease), stage 3 (moderate) N18.3 ; Anemia, unspecified type D64.9 and Dilated pore of Ly L70.8 [address] [place] [address] [id number] Aug, Other chronic pain G89.29 ; Pain in left shoulder M25.512 ; High risk medication use Z79.899 ; Uses walker Z99.89 ; Diabetes type 2, uncontrolled E11.65 and Depression F32.9 [place] [id number] [place] [address] [id number] Aug, Chronic diarrhea K52.9 [place] [id number] [place] [address] [id number] Aug, Chronic diarrhea K52.9 ; Type 2 diabetes mellitus with diabetic neuropathy E11.40 ; Diabetes type 2, uncontrolled E11.65 ; Insulin long-term use Z79.4 ; Chronic obstructive pulmonary disease, unspecified COPD type J44.9 ; Chronic pain syndrome G89.4 ; Pain in left shoulder M25.512 ; Uses walker Z99.89 ; S/P coronary artery stent placement Z95.5 ; Mixed hyperlipidemia E78.2 and Essential hypertension I10 [place] [id number] [place] [address] [id number] Aug, [address] [id number] Jul, Diabetes type 2, uncontrolled E11.65 [place] [id number] [place] [address] [id number] Jul, Diabetes type 2, uncontrolled E11.65 ; Type 2 diabetes mellitus with diabetic neuropathy E11.40 ; Insulin long-term use Z79.4 and Chronic obstructive pulmonary disease, unspecified COPD type J44.9 [place] [id number] [place] [address] [id number] Jun, [address] [id number] Jun, Essential hypertension I10 [place] [id number] [place] [address] [id number] Jun, Essential hypertension I10 [address] [id number] Jun, Type 2 diabetes mellitus with diabetic neuropathy E11.40 ; Type 2 diabetes mellitus with diabetic polyneuropathy E11.42 ; S/P coronary artery stent placement Z95.5 ; Obesity (BMI 30.0-34.9) E66.9 ; Mixed hyperlipidemia E78.2 ; Frequent falls R29.6 ; Chronic obstructive pulmonary disease, unspecified COPD type J44.9 ; Essential hypertension I10 ; Insulin long-term use Z79.4 and High risk medication use Z79.899 [address] [place] [address] [id number] May, Diarrhea, unspecified type R19.7 ; Type 2 diabetes mellitus with diabetic neuropathy E11.40 ; Chronic obstructive pulmonary disease, unspecified COPD type J44.9 ; S/P coronary artery stent placement Z95.5 ; High risk medication use Z79.899 ; Essential hypertension I10 ; Encounter for administration of vaccine Z23 and Encounter for immunization Z23 [address] [id number] [id number] May, Chronic obstructive pulmonary disease, unspecified COPD type J44.9 [address]100[place] [id number] May, Type 2 diabetes mellitus with diabetic 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 ; Encounter for immunization Z23 ; Needs flu shot Z23 ; Comprehensive diabetic foot examination, type 2 DM, encounter for E11.9 and Obesity (BMI 30.0-34.9) E66.9 [place] [id number] [place] [address] [id number] May, [address] [place] [address] [id number] Apr, [place] [id number] [place] [address] [id number] Apr, Essential hypertension I10 and Aphasia R47.01 [place] [id number] [place] [address] [id number] Apr, [address] [place] [address] [id number] Apr, Type 2 diabetes mellitus with diabetic neuropathy E11.40 ; Frequent falls R29.6 ; Essential hypertension I10 ; S/P coronary artery stent placement Z95.5 ; High risk medication use Z79.899 ; Hyperlipidemia, unspecified hyperlipidemia E78.5 ; CKD (chronic kidney disease), stage 3 (moderate) N18.3 ; Pain in left shoulder M25.512 and Chronic obstructive pulmonary disease, unspecified COPD type J44.9 [facility] [id number] [place] [address] [id number] Mar, [facility] [address] [place] [id number] [place] [address] [id number] Mar, Type 2 diabetes mellitus with diabetic polyneuropathy E11.42 ; Leg wound, left, initial encounter S81.802A ; Hx of shoulder surgery Z98.890 ; Acute pain of left shoulder M25.512 and Fall, initial encounter W19.XXXA [facility] [id number] [place] [address] [id number] Feb, Follow-up exam Z09 ; Hx of shoulder surgery Z98.890 ; Acute pain of left shoulder M25.512 ; Essential hypertension I10 and Leg wound, left, initial encounter S81.802A [facility] [address] [id number] [place] [address] [id number] Feb, [facility] [address] [id number] [place] [address] [id number] Feb, [facility] [address] [id number] [place] [address] [id number] Feb, Chronic obstructive pulmonary disease, unspecified COPD type J44.9 [facility] [id number] [place] [address], [place] [id number] Feb, [facility] [id number] [place] [address] [id number] Jan, Generalized weakness R53.1 ; Exertional shortness of breath R06.02 and Fungal rash of trunk B36.9 [facility] [address] [id number] [place] [address] [id number] Jan, [facility] [id number] [place] [address] [id number] Jan, [facility] [id number] [place] [address] [id number] Jan, [facility] [id number] [place] [address] [id number] Jan, [facility] [id number] [place] [address] [id number] December, High risk medication use Z79.[address] [id number] [place] [id number] December, Type 2 diabetes mellitus with diabetic neuropathy E11.40 [address] [place] [address] [id number] December, High risk medication use Z79.[id number] [place] [address] [id number] Nov, Diabetes type 2, uncontrolled E11.65 [place] [id number] [place] [address] [id number] Nov, Medicare annual wellness visit, initial Z00.00 ; Bilateral low back pain without sciatica M54.5 ; Pain in left shoulder M25.512 ; Chronic pain syndrome G89.4 ; Type 2 diabetes mellitus with diabetic polyneuropathy E11.42 ; High risk medication use Z79.899 and Encounter for immunization Z23 [address] [place] [address] [id number] Nov, Type 2 diabetes mellitus with diabetic neuropathy E11.40 ; Coronary artery disease involving chalky[place]ik coronary artery of chalky[place]ik heart without angina pectoris I25.10 and CKD (chronic kidney disease), stage 3 (moderate) N18.3 [address] [place] [address] [id number] Oct, Type 2 diabetes mellitus with diabetic polyneuropathy E11.42 ; Chronic pain syndrome G89.4 ; Chronic obstructive pulmonary disease, unspecified COPD type J44.9 ; Chronic kidney disease, unspecified N18.9 and Rash R21 [address] [id number] [id number] Oct, Type 2 diabetes mellitus with diabetic neuropathy E11.[address] [id number] [place] [id number] Oct, Rash R21 and Impetigo L01.[id number] [place] [address] [id number] Oct, Chronic pain syndrome G89.[address] [id number] [place] [id number] Oct, [address] [id number] [place] [id number] Sep, Sebaceous cyst L72.3 [facility] [address] [id number] [place] [address] [id number] Sep, Sebaceous cyst L72.3 [facility] [address] [id number] [place] [address] [id number] Sep, Chronic pain syndrome G89.4 ; Pain in left shoulder M25.512 and Effusion of olecranon bursa, left M25.422 [facility] [address] [place] [address] [id number] [address] Aug, [facility] [address] [id number] [place] [address] [id number] Aug, [facility] [address] [id number] [place] [address] [id number] Aug, Mixed hyperlipidemia E78.2 and Chronic kidney disease, unspecified N18.9 [facility] [address] [id number] [place] [address] [id number] Jul, Type 2 diabetes mellitus with diabetic neuropathy E11.40 ; Essential hypertension I10 and S/P coronary artery stent placement Z95.5 [facility] [address] [id number] [place] [address] [id number] Jul, 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 [place] [id number] [place] [address] [id number] Jul, Diabetes type 2, uncontrolled E11.65 ; Essential hypertension I10 and 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 [facility] [id number] [place] [address] [id number] Jul, [facility] [address] [id number] [place] [address] [id number] Jul, [facility] [id number] [place] [address] [id number] Jul, [facility] [id number] [place] [address] [id number] Jul, Chronic obstructive pulmonary disease, unspecified COPD type J44.9 [facility] [address] [place] [id number] [id number] Jun, CKD (chronic kidney disease), stage 3 (moderate) N18.3 and Anemia, unspecified type D64.9 [address] [place] [address] [id number] Jun, Type 2 diabetes mellitus with diabetic neuropathy E11.40 ; Decreased GFR R94.4 ; CKD (chronic kidney disease), stage 3 (moderate) N18.3 and Decreased hemoglobin R71.0 [place] [id number] [place] [address] [id number] Jun, CKD (chronic kidney disease), stage 3 (moderate) N18.3 and Anemia, unspecified type D64.9 [address] [place] [address] [id number] Jun, Type 2 diabetes mellitus with diabetic neuropathy E11.40 ; Decreased GFR R94.4 and CKD (chronic kidney disease), stage 3 (moderate) N18.3 [place] [id number] [place] [address] [id number] Jun, Type 2 diabetes mellitus with diabetic neuropathy E11.40 and Essential hypertension I10 [address] [place] [address] [id number] Jun, [place] [id number] [place] [address] [id number] Jun, [place] [id number] [place] [address] [id number] Jun, Type 2 diabetes mellitus with diabetic neuropathy E11.40 ; S/P coronary artery stent placement Z95.5 ; Chronic obstructive pulmonary disease, unspecified COPD type J44.9 ; Essential hypertension I10 ; GERD without esophagitis K21.9 ; Peripheral vascular disease I73.9 ; Mixed hyperlipidemia E78.2 and Hospital discharge follow-up Z09 [address] [place] [address] [id number] 07 Jun, 2016 [place] [id number] [place] [address] [id number] May, Depression F32.9 and Hyperlipidemia, unspecified hyperlipidemia E78.5 [facility] [address] [id number] [address] May, [id number] [place] [address] [id number] May, [place] [id number] [place] [address] [id number] May, Essential hypertension I10 ; Chronic pain syndrome G89.4 ; Pain in left shoulder M25.512 ; High risk medication use Z79.899 ; Chronic obstructive pulmonary disease, unspecified COPD type J44.9 ; S/P coronary artery stent placement Z95.5 ; Personal history of carotid stenosis Z86.79 ; Hyperlipidemia, unspecified hyperlipidemia E78.5 ; Decreased GFR R94.4 and Type 2 diabetes mellitus with diabetic polyneuropathy E11.42 [place] [id number] [place] [address] [id number] May, Hemoglobin decreased R71.0 and Decreased GFR R94.4 [place] [id number] [place] [address] [id number] May, Hemoglobin decreased R71.0 and Decreased GFR R94.4 [address] [place] [address] [id number] May, [place] [id number] [place] [address] [id number] May, [address] [place] [address] [id number] Apr, [address] [place] [address] [id number] Apr, Type 2 diabetes mellitus with foot [...] unspecified hyperlipidemia E78.5 and Essential hypertension I10 [place] [id number] [place] [address] [id number] Apr, [facility] [id number] [place] [phone] Mar, [facility] [id number] [place] [address] [id number] Mar, [facility] [address]005[address] [address] Mar, [facility] [id number] [place] [address] [id number] Feb, [facility] [id number] [place] [address] [id number] Feb, [facility] [id number] [place] [address] [id number] Feb, [facility] [id number] [place] [address] [id number] Jan, Type 2 diabetes mellitus with diabetic polyneuropathy E11.42 ; Hypercholesterolemia E78.0 ; Chronic pain syndrome G89.4 ; Pain in left shoulder M25.512 and High risk medication use Z79.899 [facility] [id number] [place] [id number] Jan, [facility] [id number] [place] [address] [id number] Jan, [facility] [id number] [place] [address] [id number] December, [facility] [id number] [place] [address] [id number] December, [facility] [address]005[address] [address] December, Diabetes type 2, uncontrolled E11.65 ; Type 2 diabetes mellitus with diabetic neuropathy E11.40 ; Peripheral vascular disease I73.9 ; 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 and 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 [facility] [id number] [place] [phone] Nov, [facility] [id number] [place] [id number] Nov, [facility] [address] [id number] [id number] Nov, [facility] [id number] [place] [id number] Nov, Right hip pain M25.551 [facility] [address]005[address] [address] Nov, [facility] [address]00565100[place] [address] Nov, [facility] [id number] [place] [address] [id number] Nov, Diabetes with neurological manifestations, type II or unspecified type, not stated as uncontrolled 250.60 [facility] [id number] [place] [address] [id number] Nov, [facility] [address] [id number] [place] [address] [id number] Nov, [facility] [id number] [place] [address] [id number] Oct, Diabetes type 2, uncontrolled E11.65 ; Type 2 diabetes mellitus with diabetic neuropathy, unspecified E11.40 and Low back pain M54.5 [facility] [address] [id number] [place] [phone] Oct, [facility] [address] [id number] [place] [id number] Oct, [facility] [address] [id number] [place] [id number] Oct, [facility] [address] [id number] [place] [id number] Sep, [facility] [address] [id number] [place] [id number] Sep, [facility] [address]005[address] [address] Sep, [facility] [address] [id number] [place] [id number] Sep, [facility] [id number] [place] [id number] Sep, [facility] [id number] [place] [id number] Aug, 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 [facility] [id number] [place] [address] [id number] Aug, [facility] [id number] [place] [address] [id number] Aug, Allergic rhinitis due to pollen J30.[id number] [place] [address] [id number] Jul, [facility] [id number] [place] [address] [id number] Jul, [place] [id number] [place] [address] [id number] Jul, [facility] [id number] [place] [address] [id number] Jun, [place] [id number] [place] [address] [id number] Jun, Thumb tendonitis M77.8 and Ringing in ear, bilateral H93.[address] [id number] [phone] Jun, [place] [id number] [place] [address] [id number] May, [place] [address] [id number] [place] [address] May, [facility] [address] [address] May, Pre-op evaluation Z01.818 ; Encounter for immunization Z23 ; Type 2 diabetes mellitus with diabetic peripheral angiopathy without gangrene E11.51 ; Insulin long-term use Z79.4 ; Type 2 diabetes mellitus with foot ulcer E11.621 ; Peripheral vascular disease I73.9 ; Coronary artery disease involving chalkyitsik coronary artery of chalkyitsik heart without angina pectoris I25.10 ; S/P coronary artery stent placement Z95.5 ; Osteomyelitis of right foot, unspecified chronicity M86.9 and Chronic obstructive pulmonary disease, unspecified COPD type J44.9 [place] [address] [address] May, [facility] [id number] [place] [address] [id number] May, [facility] [id number] [place] [address] [id number] May, Diabetes type 2, uncontrolled E11.65 ; Encounter for immunization Z23 ; Osteopenia M85.80 and Allergic rhinitis due to pollen J30.1 [facility] [id number] [place] [address] [id number] May, Lumbago 724.2 [facility] [id number] [place] [address] [id number] Apr, [facility] [id number] [place] [address] [id number] Apr, [facility] [id number] [place] [address] [id number] Apr, [facility] [id number] [place] [address] [id number] Apr, [facility] [address] [place] [address] Mar, [facility] [id number] [place] [address] [id number] Mar, [facility] [id number] [place] [address] [id number] Mar, [facility] [id number] [place] [address] [id number] Mar, [facility] [id number] [place] [address] [id number] Mar, [facility] [id number] [place] [address] Mar, [facility] [id number] [place] [address] [id number] Mar, [facility] [id number] [place] [address] [id number] Mar, Diabetes with neurological manifestations, type II or unspecified type, not stated as uncontrolled 250.60 and Severe obesity (BMI 35.0-35.9 with comorbidity) 278.01 [facility] [id number] [place] [address] [id number] Mar, [facility] [id number] [place] [address] Mar, [facility] [id number] [place] [address] Feb, [facility] [id number] [place] [address] [id number] Feb, [facility] [id number] [place] [address] [id number] Feb, [facility] [id number] [place] [address] [id number] Feb, Diabetes with neurological manifestations, type II or unspecified type, not stated as uncontrolled 250.60 [facility] [id number] [place] [address] [id number] Feb, [facility] [address] [place] [address] Feb, [facility] [id number] [place] [address] [id number] Feb, [facility] [id number] [place] [address] [phone] Feb, Follow up V67.9 ; Diabetes with neurological manifestations, type II or unspecified type, not stated as uncontrolled 250.60 and Congestive heart failure 428.0 [facility] [id number] [place] [id number] Jan, [facility] [id number] [place] [id number] Jan, [facility] [id number] [place] [address] [id number] Jan, [facility] [id number] [place] [address] [id number] December, Otitis media with effusion 381.4 ; Left arm numbness 782.0 and Osteoporosis 733.00 [facility] [address] [id number] [place] [phone] December, [facility] [address] [facility] [id number] [place] [id number] Nov, [facility] [address] [id number] [place] [id number] Nov, Serous otitis media 381.4 and Lumbago 724.2 [facility] [place] [facility] [id number] [place] [address] Nov, [facility] [place] [facility] [address]005[address]100[place] [address] Nov, [facility] [id number] [place] [id number] Oct, [facility] [place] [facility] [address]100[place] [address] Oct, [facility] [id number] [place] [id number] Oct, [facility] [place] [facility] [address] [address] Oct, [facility] [id number] [place] [id number] Oct, [facility] [place] [facility] [address] [address] Oct, [facility] [place] [facility] [address]005[address]100[place] [address] Sep, [facility] [place] [facility] [address]100[place] [address] Sep, [facility] [address] [id number] [place] [id number] Sep, [facility] [place] [facility] [address] [address] Sep, [facility] [address] [id number] [place] [id number] Aug, [facility] [place] [facility] [address] [id number] [address] Aug, [facility] [address] [id number] [place] [id number] Aug, [facility] [place] [facility] [address] [facility] [id number] [place] [address] Aug, [facility] [address] [facility] [id number] [place] [id number] Jul, [facility] [place] [facility] [address] [facility] [id number] [place] [address] Jul, [facility] [address] [facility] [id number] [place] [id number] Jul, [facility] [place] [facility] [address] [facility] [id number] [place] [address] Jul, [facility] [address] [facility] [id number] [place] [id number] Jul, [facility] [place] [facility] [address] [facility] [id number] [place] [address] Jul, [facility] [address] [facility] [id number] [place] [id number] Jun, [facility] [place] [facility] [address] [facility] [id number] [place] [address] Jun, [facility] [address] [facility] [id number] [place] [id number] May, [facility] [place] [facility] [address] [facility] [id number] [place] [address] May, [facility] [address] [facility] [id number] [place] [id number] May, [facility] [place] [facility] [address] [facility] [id number] [place] [address] May, [facility] [address] [facility] [id number] [place] [id number] May, [facility] [place] [facility] [address] [facility] [id number] [place] [address] May, [facility] [address] [id number] [place] [id number] May, [facility] [address] [id number] [place] [id number] May, [facility] [place] [facility] [address] [facility] [id number] [place] [address] May, [facility] [place] [facility] [address] [facility] [id number] [place] [address] May, [facility] [address] [facility] [id number] [place] [id number] May, [facility] [place] [facility] [address] [facility] [id number] [place] [address] May, [facility] [place] [facility] [address] [id number] [address] Apr, [facility] [address] [facility] [id number] [place] [id number] Apr, [facility] [place] [facility] [address]005[address] [address] Apr, [facility] [address] [id number] [place] [id number] Apr, [facility] [address] [facility] [id number] [place] [id number] Apr, [facility] [place] [facility] [address]00565100[place] [address] Apr, [facility] [place] [facility] [address] [facility] [id number] [place] [address] Apr, [facility] [address] [id number] [place] [id number] Apr, [facility] [place] [facility] [address] [facility] [id number] [place] [address] Apr, [facility] [address] [facility] [id number] [place] [id number] Apr, [facility] [place] [facility] [address] [facility] [id number] [place] [address] Apr, [facility] [address] [id number] [place] [id number] Apr, [facility] [place] [facility] [address] [id number] [place] [address] Apr, [facility] [address] [id number] [place] [id number] Apr, [facility] [place] [facility] [address] [facility] [id number] [place] [address] Apr, [facility] [address] [id number] [place] [id number] Apr, [facility] [place] [facility] [address] [facility] [id number] [place] [address] Apr, [facility] [address] [id number] [place] [id number] Apr, [facility] [place] [facility] [address]00565100[place] [address] Apr, [facility] [address] [id number] [place] [id number] Mar, [facility] [place] [facility] [address] [facility] [id number] [place] [address] Mar, [facility] [address] [id number] [place] [id number] Mar, [facility] [address] [id number] [place] 130412521 Mar, [facility] [place] [facility] [address] [facility] [id number] [place] [address] Mar, [facility] [place] [facility] [address] [facility] [id number] [place] [address] Mar, [facility] [address] [id number] [place] [id number] Mar, [facility] [place] [facility] [address] [facility] [id number] [place] [address] Mar, [facility] [address] [id number] [place] [id number] Mar, [facility] [place] [facility] [address] [id number] [place] [address] Mar, [facility] [address] [id number] [place] [id number] Mar, [facility] [place] [facility] [address] [facility] [id number] [place] [address] Mar, [facility] [address] [id number] [place] [id number] Mar, [facility] [place] [facility] [address] [facility] [id number] [place] [address] Mar, [facility] [address] [id number] [place] [id number] Mar, [facility] [place] [facility] [address] [facility] [id number] [place] [address] Mar, [facility] [address] [facility] [id number] [place] [id number] Mar, [facility] [place] [facility] [address] [facility] [id number] [place] [address] Mar, [facility] [address] [id number] [place] [id number] Mar, [facility] [place] [facility] [address] [facility] [id number] [place] [address] Mar, [facility] [address] [facility] [id number] [place] [id number] Feb, [facility] [place] [facility] [address] [facility] [id number] [place] [address] Feb, [facility] [address] [id number] [place] [id number] Feb, [facility] [place] [facility] [address] [facility] [id number] [place] [address] Feb, [facility] [address] [id number] [place] [id number] Feb, [facility] [place] [facility] [address] [facility] [id number] [place] [address] Feb, [facility] [address] [id number] [place] [id number] Feb, [facility] [place] [facility] [address] [id number] [place] [address] Feb, [facility] [address] [id number] [place] [id number] Feb, [facility] [place] [facility] [address] [id number] [place] [address] Feb, [facility] [address] [id number] [place] [id number] Feb, [facility] [place] [facility] [address] [id number] [place] [address] Feb, [facility] [address] [id number] [place] [id number] Feb, [facility] [place] [facility] [address] [facility] [id number] [place] [address] Feb, [facility] [address] [id number] [place] [id number] Feb, [facility] [place] [facility] [address] [facility] [id number] [place] [address] Feb, [facility] [address] [id number] [place] [id number] Feb, [facility] [place] [facility] [address] [id number] [place] [address] Feb, [facility] [address] [id number] [place] [id number] Feb, [facility] [address] [id number] [place] [id number] Feb, [facility] [place] [facility] [address] [facility] [id number] [place] [address] Feb, [facility] [place] [facility] [address] [facility] [id number] [place] [address] Feb, [facility] [address] [id number] [place] [id number] Feb, [facility] [place] [facility] [address] [facility] [id number] [place] [address] Feb, [facility] [address] [id number] [place] [id number] Feb, [facility] [place] [facility] [address] [facility] [id number] [place] [address] Feb, [facility] [address] [id number] [place] [id number] Feb, [facility] [place] [facility] [address] [facility] [id number] [place] [address] Feb, [facility] [address] [facility] [id number] [place] [id number] Jan, [facility] [place] [facility] [address] [facility] [id number] [place] [address] Jan, [facility] [place] [facility] [address] [facility] [id number] [place] [address] Jan, [facility] [place] [facility] [address] [facility] [id number] [place] [address] Jan, [facility] [place] [facility] [address] [facility] [id number] [place] [address] Jan, [facility] [place] [facility] [address] [facility] [id number] [place] [address] Jan, [facility] [address] [facility] [id number] [place] [id number] Jan, [facility] [place] [facility] [address] [facility] [id number] [place] [address] Jan, [facility] [place] [facility] [address] [facility] [id number] [place] [address] Jan, [facility] [place] [facility] [address] [facility] [id number] [place] [address] Jan, [facility] [address] [id number] [place] [id number] Jan, [facility] [address] [id number] [place] [id number] Jan, [facility] [place] [facility] [address] [id number] [place] [address] Jan, [facility] [place] [facility] [address] [facility] [id number] [place] [address] Jan, [facility] [address] [id number] [place] [id number] Jan, [facility] [address] [facility] [id number] [place] [id number] Jan, [facility] [place] [facility] [address] [id number] [place] [address] Jan, [facility] [place] [facility] [address] [facility] [id number] [place] [address] Jan, [facility] [place] [facility] [address] [facility] [id number] [place] [address] Jan, [facility] [address] [facility] [id number] [place] [id number] December, [facility] [place] [facility] [address] [facility] [id number] [place] [address] December, [facility] [place] [facility] [address] [facility] [id number] [place] [address] December, [facility] [address] [facility] [id number] [place] [id number] December, [facility] [place] [facility] [address] [facility] [id number] [place] [address] December, [facility] [address] [facility] [id number] [place] [id number] December, [facility] [place] [facility] [address] [id number] [place] [address] December, [facility] [address] [facility] [id number] [place] [id number] December, [facility] [place] [facility] [address] [facility] [id number] [place] [address] December, [facility] [address] [facility] [id number] [place] [id number] Nov, [facility] [place] [facility] [address] [facility] [id number] [place] [address] Nov, [facility] [address] [facility] [id number] [place] [id number] Nov, [facility] [place] [facility] [address] [facility] [id number] [place] [address] Nov, [facility] [place] [facility] [address] [facility] [id number] [place] [address] Nov, [facility] [place] [facility] [address] [facility] [id number] [place] [address] Nov, [facility] [place] [facility] [address] [id number] [place] [address] Oct, [facility] [id number] [place] [id number] Oct, [facility] [place] [facility] [address]00565100[place] [address] Oct, [facility] [address] [facility] [id number] [place] [id number] Oct, [facility] [place] [facility] [address]00565100[place] [address] Oct, [facility] [address] [facility] [id number] [place] [id number] Sep, [facility] [place] [facility] [address] [facility] [id number] [place] [address] Sep, [facility] [address] [facility] [id number] [place] [id number] Aug, [facility] [place] [facility] [address] [facility] [id number] [place] [address] Aug, [facility] [address] [facility] [id number] [place] [id number] Aug, [facility] [place] [facility] [address]65100[place] [address] Aug, [facility] [address] [facility] [id number] [place] [address] Aug, [facility] [address] [id number] [place] [id number] Aug, [facility] [place] [facility] [address] [facility] [id number] [place] [address] Aug, [facility] [place] [facility] [address] [facility] [id number] [place] [address] Aug, [facility] [address] [facility] [id number] [place] [id number] Aug, [facility] [place] [facility] [address] [facility] [id number] [place] [address] Aug, [facility] [address] [id number] [place] [id number] Jul, [facility] [address]00565100[place] [address] Jul, [facility] [address] [facility] [id number] [place] [id number] Jul, [facility] [address] [id number] [place] [address] Jul, [facility] [address] [facility] [id number] [place] [id number] Jul, [facility] [place] [facility] [address] [facility] [id number] [place] [address] Jul, [facility] [address] [facility] [id number] [place] [id number] Jul, [facility] [place] [facility] [address] [facility] [id number] [place] [address] Jul, [facility] [address] [id number] [place] [id number] Jun, [facility] [place] [facility] [address] [facility] [id number] [place] [address] Jun, [facility] [address] [id number] [place] [id number] Jun, [facility] [address] [id number] [place] [address] Jun, [facility] [address] [facility] [id number] [place] [address] Jun, [facility] [address] [facility] [id number] [place] [address] Jun, [facility] [address] [id number] [place] [id number] Apr, [facility] [address] [id number] [place] [address] Mar, [facility] [address] [id number] [place] [id number] Mar, [facility] [address] [id number] [place] [id number] Feb, [facility] [address] [id number] [place] [id number] Feb, [facility] [address] [id number] [place] [id number] Feb, [facility] [address] [id number] [place] [id number] December, [facility] [address] [id number] [place] [id number] December, [facility] [address] [facility] [id number] [place] [address] December, [facility] [address] [id number] [place] [id number] December, [facility] [address] [id number] [place] [id number] December, [facility] [address] [id number] [place] [id number] Nov, [facility] [address] [id number] [place] [id number] Nov, [facility] [address] [id number] [place] [id number] Nov, [facility] [address] [id number] [place] [id number] Oct, [facility] [address] [id number] [place] [id number] Sep, [facility] [address] [id number] [place] [id number] Aug, [facility] [address] [facility] [id number] [place] [address] Aug, [facility] [address] [id number] [place] [id number] Aug, [facility] [address] [id number] [place] [id number] Jul, [facility] [address] [facility] [id number] [place] [address] Jul, [facility] [address] [id number] [place] [id number] Jul, [facility] [address]00565100[place] [address] Jul, [facility] [address] [id number] [place] [id number] Jun, [facility] [address]65100[place] [address] Jun, [facility] [id number] [place] [id number] May, [facility] [address] [id number] [place] [address] May, [facility] [address] [id number] [place] [id number] May, [facility] [place] [facility] [address] [facility] [id number] [place] [address] May, [facility] [address] [id number] [place] [id number] Apr, [facility] [address] [id number] [place] [id number] Apr, [facility] [address] [id number] [place] [id number] Mar, [facility] [address] [id number] [place] [id number] Mar, [facility] [address] [id number] [place] [id number] Feb, [facility] [address] [id number] [place] [id number] Feb, [facility] [address] [id number] [place] [id number] Jan, [facility] [address] [id number] [place] [address] Jan, [facility] [address] [id number] [place] [id number] Jan, [facility] [address] [id number] [place] [id number] Jan, [facility] [address] [id number] [place] [id number] December, [facility] [address] [id number] [place] [id number] December, [facility] [place] [facility] [address] [facility] [id number] [place] [address] Nov, [facility] [address] [id number] [place] [id number] Nov, [facility] [address] [id number] [place] [id number] Nov, [facility] [address] [id number] [place] [id number] Nov, [facility] [address] [id number] [place] [id number] Nov, [facility] [address] [facility] [id number] [place] [address] Oct, [facility] [place] [facility] [address] [facility] [id number] [place] [address] Oct, [facility] [address] [id number] [place] [id number] Oct, [facility] [address] [id number] [place] [id number] Oct, [facility] [address] [id number] [place] [id number] Oct, [facility] [place] [address] [id number] [place] [id number] Oct, [facility] [address] [id number] [place] [id number] Oct, [facility] [address] [id number] [place] [id number] Oct, [facility] [address] [id number] [place] [id number] Oct, [facility] [address] [facility] [id number] [place] [address] Oct, [facility] [address] [id number] [place] [address] Sep, [facility] [address] [id number] [place] [id number] Sep, [facility] [address] [id number] [place] [id number] Aug, [facility] [address] [id number] [place] [id number] Aug, [facility] [address]00565100[place] [address] Jul, [facility] [place] [facility] [address]00565100[place] [address] Jul, [facility] [place] [facility] [address]00565100[place] [address] Jul, [facility] [place] [facility] [address]00565100[place] [address] Jul, [facility] [place] [facility] [address] [id number] [place] [address] Jul, [facility] [place] [facility] [address]00565100[place] [address] Jul, [facility] [place] [facility] [address]00565100[place] [address] Jul, [facility] [address] [id number] [address] Jul, [facility] [address] [facility] [id number] [place] [address] Jul, [facility] [address] [id number] [address] Jul, [facility] [address]00565100[place] [address] Jul, [facility] [address]00565100[place] [address] Jul, [facility] [id number] [place] [address] Jul, [facility] [address]00565100[place] [address] Jul, IMMUNIZATIONS No Known Immunizations SOCIAL HISTORY Never Assessed REASON FOR VISIT 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 Secondary to ATN from [facility] 4.3 Medical History HX of [...]
--- OUTSIDE RECORDS SUMMARY | 2019-04-03 06:33 | XMS REPORT ---
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 Active 604624764 Problem 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 Active 116400354 Problem Type 2 diabetes mellitus with diabetic polyneuropathy E11.42 Active 652435378 Problem Hypercholesterolemia E78.0 Active 37943277 Problem Fatigue, unspecified type R53.83 Active 68465553 Problem Personal history of carotid stenosis Z86.79 Active 320916815 Problem Uses walker Z99.89 Active 096144003 Problem Type 2 diabetes mellitus with diabetic neuropathy E11.40 Active 78246248 Problem Aphasia R47.01 Active 66300539 Problem S/P coronary artery stent placement Z95.5 Active 765939005 Problem Type 2 diabetes mellitus with diabetic retinopathy, macular edema presence unspecified, with unspecified retinopathy severity E11.319 Active 08398106 Problem Osteomyelitis of right foot, unspecified chronicity M86.9 Active 63886773 Problem CKD (chronic kidney disease), stage 3 (moderate) N18.3 Active 567424774 Problem Essential hypertension I10 Active 86904054 Problem GERD without esophagitis K21.9 Active 963486757 Problem Insulin long-term use Z79.4 Active 696229611 Problem CKD (chronic kidney disease) stage 3, GFR 30-59 ml/min N18.3 Active 673838445 Problem Type 2 diabetes mellitus with diabetic peripheral angiopathy without gangrene E11.51 Active 247079436 Problem Chronic kidney disease, unspecified N18.9 Active 027832395 Problem Coronary artery disease involving snoqualmie coronary artery of snoqualmie heart without angina pectoris I25.10 Active 5188229615186 Problem Mixed hyperlipidemia E78.2 Active 972967441 Problem Hyperlipidemia, unspecified hyperlipidemia E78.5 Active 70057673 Problem Obesity (BMI 30.0-34.9) E66.9 Active 836945013730037 Problem Chronic obstructive pulmonary disease, unspecified COPD type J44.9 Active 35676068 Problem Frequent falls R29.6 Active 929223075 Problem Peripheral vascular disease I73.9 Active 684847958 Problem Chronic diarrhea K52.9 Active 746638225 Problem Other chronic pain G89.29 Active 80493961 Problem Full incontinence of feces R15.9 Active 420171154930013 Problem Major depressive disorder, single episode, mild F32.0 Active 93591791 Problem Pain in left shoulder M25.512 Active 32962477 Problem Ulcer of left foot, unspecified ulcer stage L97.529 Active 77533933 Problem Chronic pain syndrome G89.4 Active 138613139 Problem Diabetes type 2, uncontrolled E11.65 Active 867419174 Problem High risk medication use Z79.899 Active 114582277 Problem Fecal urgency R15.2 Active 52687099 Problem Functional diarrhea K59.1 Active 42780486 Problem Type 2 diabetes mellitus with foot ulcer E11.621 Active 352157169 Problem Mixed stress and urge urinary incontinence N39.46 Active 965246496 Problem Chronic fatigue R53.82 Active 81210099 ALLERGIES No Information ENCOUNTERS Encounter Location Date Diagnosis [id number] [place] [address] [id number] Nov, Bilateral low back pain without sciatica M54.5 [address] [place] [address] [id number] Oct, Bilateral low back pain without sciatica M54.5 [address] [place] [address] [id number] Oct, [facility] [id number] [address] Oct, [id number] [place] [address] [id number] Sep, Other chronic pain G89.29 and Diabetes type 2, uncontrolled E11.65 [address] [place] [address] [id number] Sep, Type 2 diabetes mellitus with diabetic neuropathy E11.40 ; Atherosclerosis of snoqualmie artery of both lower extremities, with unspecified presence of clinical manifestation I70.203 and Ulcer of left foot, unspecified ulcer stage L97.529 [facility] [address] [id number] [place] [id number] Sep, Bilateral low back pain without sciatica M54.5 [facility] [address] [id number] [place] [id number] Aug, Bilateral low back pain without sciatica M54.5 [facility] [address] [id number] [place] [id number] Aug, [facility] [address] [id number] [place] [id number] Aug, Essential hypertension I10 [facility] [address] [id number] [place] [id number] Aug, [facility] [address] [id number] [place] [id number] Jul, [facility] [address] [id number] [place] [id number] Jul, Bilateral low back pain without sciatica M54.5 [facility] [address] [id number] [place] [id number] Jul, Hyperlipidemia, unspecified hyperlipidemia E78.5 [facility] [address] [id number] [place] [id number] Jul, [facility] [address] [id number] [place] [id number] Jul, Type 2 diabetes mellitus with diabetic neuropathy E11.40 [facility] [address] [id number] [place] [id number] Jun, [facility] [address] [id number] [place] [id number] Jun, Bilateral low back pain without sciatica M54.5 [facility] [address] [id number] [place] [id number] Jun, Chronic fatigue R53.82 [facility] [address] [id number] [place] [id number] Jun, Type 2 diabetes mellitus with diabetic polyneuropathy E11.42 and Bilateral low back pain without sciatica M54.5 [facility] [id number] [place] [address] [id number] May, Other chronic pain G89.29 [facility] [id number] [place] [address] [id number] May, Diabetes type 2, uncontrolled E11.65 [facility] [id number] [place] [phone] 16 May, 2018 Type 2 diabetes mellitus with diabetic neuropathy E11.40 ; Coronary artery disease involving s[place]qual[place] coronary artery of snoqualmie heart without angina pectoris I25.10 and Major depressive disorder, single episode, mild F32.0 [facility] [id number] [place] [address] [id number] May, [facility] [id number] [place] [address] [id number] May, [facility] [id number] [place] [address] [id number] May, [facility] [id number] [place] [address] [id number] Apr, Other chronic pain G89.29 [address] [facility] [id number] [id number] Apr, [facility] [id number] [place] [address] [id number] Apr, Essential hypertension I10 [facility] [id number] [place] [address] [id number] Mar, Other chronic pain G89.29 [facility] [id number] [id number] Mar, [facility] [id number] [place] [address] [id number] Feb, Other chronic pain G89.29 [facility] [id number] [place] [address] [id number] Feb, Diabetes type 2, uncontrolled E11.65 ; Type 2 diabetes mellitus with diabetic retinopathy, macular edema presence unspecified, with unspecified retinopathy severity E11.319 and Bilateral low back pain without sciatica M54.5 [facility] [id number][place] [id number] Feb, [facility] [id number] [place] [address] [id number] Feb, Diabetes type 2, uncontrolled E11.65 [facility] [id number] [place] [address] [id number] Feb, Other chronic pain G89.29 [facility] [id number] [place] [address] [id number] Jan, [facility] [id number] [place] [address] [id number] Jan, [facility] [id number] [place] [address] [id number] Jan, [facility] [id number] [place] [address] [id number] Jan, Other chronic pain G89.29 [facility] [id number] [place] [address] [id number] December, Mixed stress and urge urinary incontinence N39.46 [facility] [id number] [place] [address] [id number] December, Chronic fatigue R53.82 [facility] [id number] [place] [address] [id number] December, Other chronic pain G89.29 [id number] [place] [address] [id number] December, Diabetes type 2, uncontrolled E11.65 ; [...] type J44.9 and Other chronic pain G89.29 [facility] [id number] [address] December, [address] [place] [address] [id number] December, Medicare annual wellness visit, subsequent Z00.00 ; Type 2 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 ; Chronic obstructive pulmonary disease, unspecified COPD type J44.9 ; Depression F32.9 ; Peripheral vascular disease I73.9 ; Coronary artery disease involving s[place]qual[place] coronary artery of snoqualmie heart without angina pectoris I25.10 ; Hypercholesterolemia E78.0 ; GERD without esophagitis K21.9 and Chronic kidney disease, unspecified N18.9 [address] [place] [address] [id number] December, Mixed stress and urge urinary incontinence N39.46 ; Full incontinence of feces R15.9 ; Fecal urgency R15.2 ; Functional diarrhea K59.1 and Type 2 diabetes mellitus with diabetic neuropathy E11.40 [id number] [place] [address] [id number] Nov, Other chronic pain G89.29 [address] [place] [address] [id number] Oct, [id number] [place] [address] [id number] Oct, [id number] [place] [address] [id number] Oct, Other chronic pain G89.29 [id number] [place] [address] [id number] Sep, Other chronic pain G89.29 [address] [place] [address] [id number] Aug, CKD (chronic kidney disease), stage 3 (moderate) N18.3 ; Anemia, unspecified type D64.9 and Dilated pore of Ly L70.8 [address] [place] [address] [id number] Aug, Other chronic pain G89.29 ; Pain in left shoulder M25.512 ; High risk medication use Z79.899 ; Uses walker Z99.89 ; Diabetes type 2, uncontrolled E11.65 and Depression F32.9 [address] [place] [address] [id number] Aug, Chronic diarrhea K52.9 [id number] [place] [address] [id number] Aug, Chronic diarrhea K52.9 ; Type 2 diabetes mellitus with diabetic neuropathy E11.40 ; Diabetes type 2, uncontrolled E11.65 ; Insulin long-term use Z79.4 ; Chronic obstructive pulmonary disease, unspecified COPD type J44.9 ; Chronic pain syndrome G89.4 ; Pain in left shoulder M25.512 ; Uses walker Z99.89 ; S/P coronary artery stent placement Z95.5 ; Mixed hyperlipidemia E78.2 and Essential hypertension I10 [id number] [place] [address] [id number] Aug, [id number] [place] [address] [id number] Jul, Diabetes type 2, uncontrolled E11.65 [address] [place] [id number] [place] [address] [id number] Jul, Diabetes type 2, uncontrolled E11.65 ; Type 2 diabetes mellitus with diabetic neuropathy E11.40 ; Insulin long-term use Z79.4 and Chronic obstructive pulmonary disease, unspecified COPD type J44.9 [address] [id number] [place] [address] [id number] Jun, [address] [place] [id number] [place] [address] [id number] Jun, Essential hypertension I10 [address] [id number] [place] [address] [id number] Jun, Essential hypertension I10 [address] [place] [address] [id number] Jun, Type 2 diabetes mellitus with diabetic neuropathy E11.40 ; Type 2 diabetes mellitus with diabetic 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899 ; Essential hypertension I10 ; Encounter for administration of vaccine Z23 and Encounter for immunization Z23 [facility] [address] [id number] [id number] May, Chronic obstructive pulmonary disease, unspecified COPD type J44.9 [address] [id number] May, Type 2 diabetes mellitus with diabetic polyneuropathy E11.42 ; Encounter for immunization Z23 ; Needs flu shot Z23 ; Comprehensive diabetic foot examination, type 2 DM, encounter for E11.9 and Obesity (BMI 30.0-34.9) E66.[id number] [place] [address] [id number] May, [id number] [place] [address] [id number] Apr, [address] [id number] [place] [address] [id number] Apr, Essential hypertension I10 and Aphasia R47.01 [address] [place] [address] [id number] Apr, [id number] [place] [address] [id number] Apr, Type 2 diabetes mellitus with diabetic neuropathy E11.40 ; Frequent falls R29.6 ; Essential hypertension I10 ; S/P coronary artery stent placement Z95.5 ; High risk medication use Z79.899 ; Hyperlipidemia, unspecified hyperlipidemia E78.5 ; CKD (chronic kidney disease), stage 3 (moderate) N18.3 ; Pain in left shoulder M25.512 and Chronic obstructive pulmonary disease, unspecified COPD type J44.9 [address] [id number] [place] [address] [id number] Mar, [facility] [id number] [place] [address] [id number] Mar, Type 2 diabetes mellitus with diabetic 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 ; Leg wound, left, initial encounter S81.802A ; Hx of shoulder surgery Z98.890 ; Acute pain of left shoulder M25.512 and Fall, initial encounter W19.XXXA [facility] [id number] [place] [address] [id number] Feb, Follow-up exam Z09 ; Hx of shoulder surgery Z98.890 ; Acute pain of left shoulder M25.512 ; Essential hypertension I10 and Leg wound, left, initial encounter S81.802A [facility] [id number] [place] [address] [id number] Feb, [facility] [id number] [place] [address] [id number] Feb, [facility] [id number] [place] [address] [id number] Feb, Chronic obstructive pulmonary disease, unspecified COPD type J44.9 [facility] [id number] [place] [address] [id number] Feb, [facility] [id number] [place] [address] [id number] Jan, Generalized weakness R53.1 ; Exertional shortness of breath R06.02 and Fungal rash of trunk B36.9 [facility] [id number] [place] [address] [id number] Jan, [facility] [id number] [place] [address] [id number] Jan, [facility] [id number] [place] [address] [id number] Jan, [facility] [id number] [place] [address] [id number] Jan, [facility] [id number] [place] [address] [id number] December, High risk medication use Z79.899 [facility] [address] [id number] December, Type 2 diabetes mellitus with diabetic neuropathy E11.[address] [id number] [id number] December, High risk medication use Z79.899 [facility] [address] [place] [address] [id number] Nov, Diabetes type 2, uncontrolled E11.65 [address] [id number] [place] [address] [id number] Nov, Medicare annual wellness visit, initial Z00.00 ; Bilateral low back pain without sciatica M54.5 ; Pain in left shoulder M25.512 ; Chronic pain syndrome G89.4 ; Type 2 diabetes mellitus with diabetic polyneuropathy E11.42 ; High risk medication use Z79.899 and Encounter for immunization Z23 [address] [place] [address] [id number] Nov, Type 2 diabetes mellitus with diabetic neuropathy E11.40 ; Coronary artery disease involving s[place] coronary artery of snoqualmie heart without angina pectoris I25.10 and CKD (chronic kidney disease), stage 3 (moderate) N18.3 [address] [place] [address] [id number] Oct, Type 2 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 ; Chronic pain syndrome G89.4 ; Chronic obstructive pulmonary disease, unspecified COPD type J44.9 ; Chronic kidney disease, unspecified N18.9 and Rash R21 [address] [id number] [id number] Oct, Type 2 diabetes mellitus with diabetic neuropathy E11.[address] [id number] [id number] Oct, Rash R21 and Impetigo L01.00 [address] [place] [address] [id number] Oct, Chronic pain syndrome G89.[address] [id number] [id number] Oct, [id number] [place] [address] [id number] Sep, Sebaceous cyst L72.3 [facility] [id number][place] [id number] Sep, Sebaceous cyst L72.3 [facility] [id number] [place] [address] [id number] Sep, Chronic pain syndrome G89.4 ; Pain in left shoulder M25.512 and Effusion of olecranon bursa, left M25.422 [facility] [address] [id number] [address] Aug, [facility] [id number] [place] [address] [id number] Aug, [id number] [place] [address] [id number] Aug, Mixed hyperlipidemia E78.2 and Chronic kidney disease, unspecified N18.9 [id number] [place] [address] [id number] Jul, Type 2 diabetes mellitus with diabetic neuropathy E11.40 ; Essential hypertension I10 and S/P coronary artery stent placement Z95.5 [id number] [place] [address] [id number] Jul, 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 [address] [place] [place] [address] [id number] Jul, Diabetes type 2, uncontrolled E11.65 ; Essential hypertension I10 and 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 [address] [place] [address] [id number] Jul, [facility] [address] [place] [address] [id number] Jul, [address] [id number] [place] [address] [id number] Jul, [address] [place] [place] [address] [id number] Jul, Chronic obstructive pulmonary disease, unspecified COPD type J44.9 [address] [place] [place] [address] [id number] Jun, CKD (chronic kidney disease), stage 3 (moderate) N18.3 and Anemia, unspecified type D64.9 [address] [place] [address] [id number] Jun, Type 2 diabetes mellitus with diabetic neuropathy E11.40 ; Decreased GFR R94.4 ; CKD (chronic kidney disease), stage 3 (moderate) N18.3 and Decreased hemoglobin R71.[address] [id number] Jun, CKD (chronic kidney disease), stage 3 (moderate) N18.3 and Anemia, unspecified type D64.9 [address] [place] [id number] [place] [address] [id number] Jun, Type 2 diabetes mellitus with diabetic neuropathy E11.40 ; Decreased GFR R94.4 and CKD (chronic kidney disease), stage 3 (moderate) N18.3 [address] [id number] [place] [address] [id number] Jun, Type 2 diabetes mellitus with diabetic neuropathy E11.40 and Essential hypertension I10 [address] [id number] [place] [address] [id number] Jun, [address] [id number] Jun, [address] [id number] [place] [address] [id number] Jun, Type 2 diabetes mellitus with diabetic neuropathy E11.40 ; S/P coronary artery stent placement Z95.5 ; Chronic obstructive pulmonary disease, unspecified COPD type J44.9 ; Essential hypertension I10 ; GERD without esophagitis K21.9 ; Peripheral vascular disease I73.9 ; Mixed hyperlipidemia E78.2 and Hospital discharge follow-up Z09 [address] [place] [id number] [place] [address] [id number] Jun, [address] [id number] May, Depression F32.9 and Hyperlipidemia, unspecified hyperlipidemia E78.5 [facility] [id number] [place] [phone] May, [address] [place] [address] [id number] May, [id number] [place] [address] [id number] May, Essential hypertension I10 ; Chronic pain syndrome G89.4 ; Pain in left shoulder M25.512 ; High risk medication use Z79.899 ; Chronic obstructive pulmonary disease, unspecified COPD type J44.9 ; S/P coronary artery stent placement Z95.5 ; Personal history of carotid stenosis Z86.79 ; Hyperlipidemia, unspecified hyperlipidemia E78.5 ; Decreased GFR R94.4 and Type 2 diabetes mellitus with diabetic polyneuropathy E11.42 [address] [id number] [place] [address] [id number] May, Hemoglobin decreased R71.0 and Decreased GFR R94.[address] [id number] May, Hemoglobin decreased R71.0 and Decreased GFR R94.4 [id number] [place] [address] [id number] May, [id number] [place] [address] [id number] May, [id number] [place] [address] [id number] Apr, [id number] [place] [address] [id number] Apr, Type 2 diabetes mellitus with foot [...] unspecified hyperlipidemia E78.5 and Essential hypertension I10 [address] [id number] [place] [address] [id number] Apr, [address] [place] [id number] Mar, [facility] [id number] [place] [address] [id number] Mar, [facility] [id number] [place] [phone] Mar, [facility] [id number] [place] [address] [id number] Feb, [facility] [id number] [place] [address] [id number] Feb, [facility] [id number] [place] [address] [id number] Feb, [facility] [id number] [place] [address] [id number] Jan, Type 2 diabetes mellitus with diabetic polyneuropathy E11.42 ; Hypercholesterolemia E78.0 ; Chronic pain syndrome G89.4 ; Pain in left shoulder M25.512 and High risk medication use Z79.899 [facility] [id number] [place] [address] [id number] Jan, [facility] [id number] [place] [address] [id number] Jan, [facility] [id number] [place] [address] [id number] December, [facility] [id number] [place] [address] [id number] December, [address] [place] [phone] December, Diabetes type 2, uncontrolled E11.65 ; Type 2 diabetes mellitus with diabetic neuropathy E11.40 ; Peripheral vascular disease I73.9 ; 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 and 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 [facility] [id number] [place] [address] [id number] Nov, [facility] [id number] [place] [address] [id number] Nov, [facility] [id number] [place] [address] [phone] Nov, [facility] [address] [id number], [place] [id number] Nov, Right hip pain M25.551 [facility] [id number] [place] [phone] Nov, [facility] [id number] [place] [address] Nov, [facility] [address] [id number] [place] [address] [id number] Nov, Diabetes with neurological manifestations, type II or unspecified type, not stated as uncontrolled 250.60 [facility] [address] [id number] [place] [id number] Nov, [facility] [id number] [place] [address] [id number] Nov, [facility] [id number] [place] [address] [id number] Oct, Diabetes type 2, uncontrolled E11.65 ; Type 2 diabetes mellitus with diabetic neuropathy, unspecified E11.40 and Low back pain M54.5 [facility] [address] [id number], [place] [id number] Oct, [facility] [address] [id number] [place] [address] [id number] Oct, [facility] [address] [id number] [place] [address] [phone] Oct, [facility] [address] [id number] [place] [address] [id number] Sep, [facility] [address] [id number] [place] [address] [id number] Sep, [facility] [address] [facility] [id number], [place] [address] Sep, [facility] [id number] [place] [address] [id number] Sep, [facility] [address] [id number][place] [phone] Sep, [facility] [id number] [place] [address] [id number] Aug, 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 [facility] [id number], [place] [id number] Aug, [facility] [id number] [place] [address] [id number] Aug, Allergic rhinitis due to pollen J30.[address] [id number] [place] [id number] Jul, [facility] [id number] [place] [address] [phone] Jul, [facility] [id number] [place] [address] [id number] Jul, [place] [id number] [place] [address] [id number] Jun, [facility] [id number] [place] [address] [id number] Jun, Thumb tendonitis M77.8 and Ringing in ear, bilateral H93.[address] [id number] [place] [phone] Jun, [id number] [place] [address] [id number] May, [place] [address] [address] May, [facility] [id number] [place] [phone] May, Pre-op evaluation Z01.818 ; Encounter for immunization Z23 ; Type 2 diabetes mellitus with diabetic peripheral angiopathy without gangrene E11.51 ; Insulin long-term use Z79.4 ; Type 2 diabetes mellitus with foot ulcer E11.621 ; Peripheral vascular disease I73.9 ; Coronary artery disease involving s[place]qualmie coronary artery of snoqualmie heart without angina pectoris I25.10 ; S/P coronary artery stent placement Z95.5 ; Osteomyelitis of right foot, unspecified chronicity M86.9 and Chronic obstructive pulmonary disease, unspecified COPD type J44.9 [place] [address] [address] May, [facility] [id number] [place] [address] [id number] May, [facility] [id number] [place] [address] [id number] May, Diabetes type 2, uncontrolled E11.65 ; Encounter for immunization Z23 ; Osteopenia M85.80 and Allergic rhinitis due to pollen J30.1 [facility] [id number] [place] [address] [phone] May, Lumbago 724.2 [facility] [id number] [place] [address] [phone] Apr, [facility] [id number] [place] [address] [phone] Apr, [facility] [id number] [place] [address] [phone] Apr, [facility] [id number] [place] [address] [phone] Apr, [facility] [id number] [place] [phone] Mar, [facility] [id number] [place] [address] [id number] Mar, [facility] [id number] [place] [address] [phone] Mar, [facility] [id number] [place] [address] [phone] Mar, [facility] [id number] [place] [address] [id number] Mar, [facility] [id number] [place] [phone] Mar, [facility] [id number] [place] [address] [id number] Mar, [facility] [id number] [place] [address] [id number] Mar, Diabetes with neurological manifestations, type II or unspecified type, not stated as uncontrolled 250.60 and Severe obesity (BMI 35.0-35.9 with comorbidity) 278.01 [facility] [id number], [place] [id number] Mar, [facility] [id number] [place] [phone] Mar, [facility] [id number] [place] [phone] Feb, [facility] [id number], [place] [id number] Feb, [facility] [id number] [place] [address] [id number] Feb, [facility] [id number] [place] [address] [phone] Feb, Diabetes with neurological manifestations, type II or unspecified type, not stated as uncontrolled 250.60 [facility] [id number] [place] [address] [id number] Feb, [facility] [address]00565100[place] [address] Feb, [facility] [id number], [place] [phone] Feb, [facility] [id number] [place] [address] [phone] Feb, Follow up V67.9 ; Diabetes with neurological manifestations, type II or unspecified type, not stated as uncontrolled 250.60 and Congestive heart failure 428.0 [facility] [id number], [place] [id number] Jan, [facility] [id number], [place] [id number] Jan, [facility] [address] [id number], [place] [id number] Jan, [facility] [id number] [place] [address] [phone] December, Otitis media with effusion 381.4 ; Left arm numbness 782.0 and Osteoporosis 733.00 [facility] [id number] [place] [address] [id number] December, [facility] [address] [facility] [id number], [place] [id number] Nov, [facility] [address] [facility] [id number], [place] [id number] Nov, Serous otitis media 381.4 and Lumbago 724.2 [facility] [place] [facility] [address]00565100[place] [address] Nov, [facility] [place] [facility] [address] [facility] [id number], [place] [address] Nov, [facility] [address] [id number], [place] [id number] Oct, [facility] [place] [facility] [address]00565100[place], [place] [address] Oct, [facility] [id number], [place] [id number] Oct, [facility] [place] [facility] [address]00565100[place], [place] [address] Oct, [facility] [id number], [place] [id number] Oct, [facility] [place] [facility] [address]00565100[place] [address] Oct, [facility] [place] [facility] [address]00565100[place] [address] Sep, [facility] [place] [facility] [address]00565100[place], [place] [address] Sep, [facility] [address] [id number], [place] [phone] Sep, [facility] [place] [facility] [address]00565100[place], [place] [address] Sep, [facility] [address] [id number], [place] [id number] Aug, [facility] [place] [facility] [address]00565100[place], [place] [address] Aug, [facility] [address] [id number] [place] [id number] Aug, [facility] [place] [facility] [address] [facility] [id number][place] [address] Aug, [facility] [address] [facility] [id number] [place] [id number] Jul, [facility] [place] [facility] [address] [facility] [id number][place] [address] Jul, [facility] [address] [id number], [place] [id number] Jul, [facility] [place] [facility] [address] [facility] [id number][place] [address] Jul, [facility] [address] [facility] [id number], [place] [id number] Jul, [facility] [place] [facility] [address] [facility] [id number][place] [address] Jul, [facility] [address] [facility] [id number], [place] [id number] Jun, [facility] [place] [facility] [address] [facility] [id number][place] [address] Jun, [facility] [address] [facility] [id number], [place] [id number] May, [facility] [place] [facility] [address] [facility] [id number][place] [address] May, [facility] [address] [facility] [id number], [place] [id number] May, [facility] [place] [facility] [address] [facility] [id number] [address] May, [facility] [address] [facility] [id number], [place] [id number] May, [facility] [place] [facility] [address] [facility] [id number][place] [address] May, [facility] [address] [facility] [id number], [place] [id number] May, [facility] [address] [id number] [place] [id number] May, [facility] [place] [facility] [address] [facility] [id number] [place] [address] May, [facility] [place] [facility] [address] [facility] [id number] [place] [address] May, [facility] [address] [id number] [place] [id number] May, [facility] [place] [facility] [address] [facility] [id number] [place] [address] May, [facility] [place] [facility] [address] [facility] [id number] [place] [address] Apr, [facility] [address] [facility] [id number], [place] [id number] Apr, [facility] [place] [facility] [address] [facility] [id number] [place] [address] Apr, [facility] [address] [id number], [place] [id number] Apr, [facility] [address] [id number], [place] [id number] Apr, [facility] [place] [facility] [address] [facility] [id number][place] [address] Apr, [facility] [place] [facility] [address] [facility] [id number][place] [address] Apr, [facility] [address] [facility] [id number], [place] [id number] Apr, [facility] [place] [facility] [address] [facility] [id number] [place] [address] Apr, [facility] [address] [facility] [id number], [place] [phone] Apr, [facility] [place] [facility] [address] [facility] [id number][place] [address] Apr, [facility] [address] [id number], [place] [id number] Apr, [facility] [place] [facility] [address] [id number] [place] [address] Apr, [facility] [address] [id number] [place] [id number] Apr, [facility] [place] [facility] [address] [facility] [id number][place] [address] Apr, [facility] [address] [id number] [place] [id number] Apr, [facility] [place] [facility] [address] [id number][place] [address] Apr, [facility] [address] [id number] [place] [id number] Apr, [facility] [place] [facility] [address] [facility] [id number][place] [address] Apr, [facility] [address] [id number] [place] [id number] Mar, [facility] [place] [facility] [address] [facility] [id number][place] [address] Mar, [facility] [address] [id number] [place] [id number] Mar, [facility] [address] [id number], [place] [id number] Mar, [facility] [place] [facility] [address] [facility] [id number][place] [address] Mar, [facility] [place] [facility] [address] [facility] [id number][place] [address] Mar, [facility] [address] [id number] [place] [id number] Mar, [facility] [place] [facility] [address] [facility] [id number] [address] Mar, [facility] [address] [id number] [place] [id number] Mar, [facility] [place] [facility] [address] [facility] [id number][place] [address] Mar, [facility] [address] [id number] [place] [id number] Mar, [facility] [place] [facility] [address] [id number] [place] [address] Mar, [facility] [address] [id number] [place] [id number] Mar, [facility] [place] [facility] [address] [facility] [id number] [place] [address] Mar, [facility] [address] [id number] [place] [id number] Mar, [facility] [place] [facility] [address] [facility] [id number] [place] [address] Mar, [facility] [address] [id number] [place] [id number] Mar, [facility] [place] [facility] [address] [place] [address] Mar, [facility] [address] [id number] [place] [id number] Mar, [facility] [place] [facility] [address] [facility] [id number] [place] [address] Mar, [facility] [address] [id number] [place] [id number] Feb, [facility] [place] [facility] [address] [facility] [id number][place] [address] Feb, [facility] [address] [id number] [place] [id number] Feb, [facility] [place] [facility] [address] [id number] [place] [address] Feb, [facility] [address] [id number] [place] [id number] Feb, [facility] [place] [facility] [address] [facility] [id number] [place] [address] Feb, [facility] [address] [id number] [place] [id number] Feb, [facility] [place] [facility] [address] [id number] [place] [address] Feb, [facility] [address] [id number] [place] [id number] Feb, [facility] [place] [facility] [address] [id number] [place] [address] Feb, [facility] [address] [id number] [place] 836153082 Feb, [facility] [place] [facility] [address] [id number] [place] [address] Feb, [facility] [address] [id number] [place] [id number] Feb, [facility] [place] [facility] [address] [facility] [id number] [place] [address] Feb, [facility] [address] [id number] [place] [id number] Feb, [facility] [place] [facility] [address] [facility] [id number] [place] [address] Feb, [facility] [address] [id number] [place] [id number] Feb, [facility] [place] [facility] [address] [facility] [id number] [place] [address] Feb, [facility] [address] [id number] [place] [id number] Feb, [facility] [address] [id number] [place] [id number] Feb, [facility] [place] [facility] [address] [id number] [place] [address] Feb, [facility] [place] [facility] [address] [facility] [id number] [place] [address] Feb, [facility] [address] [id number] [place] [id number] Feb, [facility] [place] [facility] [address] [id number], [place] [address] Feb, [facility] [address] [id number] [place] [id number] Feb, [facility] [place] [facility] [address] [facility] [id number] [place] [address] Feb, [facility] [address] [id number] [place] [id number] Feb, [facility] [place] [facility] [address] [id number] [place] [address] Feb, [facility] [address] [id number] [place] [id number] Jan, [facility] [place] [facility] [address] [facility] [id number] [place] [address] Jan, [facility] [place] [facility] [address] [facility] [id number] [place] [address] Jan, [facility] [place] [facility] [address] [facility] [id number][place] [address] Jan, [facility] [place] [facility] [address] [facility] [id number] [place] [address] Jan, [facility] [place] [facility] [address] [facility] [id number][place] [address] Jan, [facility] [address] [id number], [place] [id number] Jan, [facility] [place] [facility] [address] [facility] [id number] [address] Jan, [facility] [place] [facility] [address] [facility] [id number] [address] Jan, [facility] [place] [facility] [address] [facility] [id number][place] [address] Jan, [facility] [address] [id number] [place] [id number] Jan, [facility] [address] [id number] [place] [id number] Jan, [facility] [place] [facility] [address] [facility] [id number], [place] [address] Jan, [facility] [place] [facility] [address] [facility] [id number] [place] [address] Jan, [facility] [address] [facility] [id number], [place] [id number] Jan, [facility] [address] [facility] [id number], [place] [id number] Jan, [facility] [place] [facility] [address] [facility] [id number] [place] [address] Jan, [facility] [place] [facility] [address] [facility] [id number] [place] [address] Jan, [facility] [place] [facility] [address] [facility] [id number] [place] [address] Jan, [facility] [address] [facility] [id number][place] [id number] December, [facility] [place] [facility] [address] [facility] [id number], [place] [address] December, [facility] [place] [facility] [address] [facility] [id number][place] [address] December, [facility] [address] [facility] [id number][place] [id number] December, [facility] [place] [facility] [address] [facility] [id number][place] [address] December, [facility] [address] [facility] [id number][place] [id number] December, [facility] [place] [facility] [address] [facility] [id number] [address] December, [facility] [address] [facility] [id number], [place] [id number] December, [facility] [place] [facility] [address] [facility] [id number][place] [address] December, [facility] [address] [facility] [id number][place] [id number] Nov, [facility] [place] [facility] [address] [facility] [id number], [place] [address] Nov, [facility] [address] [facility] [id number] [place] [id number] Nov, [facility] [place] [facility] [address] [facility] [id number] [place] [address] Nov, [facility] [place] [facility] [address] [facility] [id number] [place] [address] Nov, [facility] [place] [facility] [address] [facility] [id number] [place] [address] Nov, [facility] [place] [facility] [address] [facility] [id number] [place] [address] Oct, [facility] [address] [id number][place] [id number] Oct, [facility] [place] [facility] [id number] [address] Oct, [facility] [address] [facility] [id number][place] [id number] Oct, [facility] [place] [facility] [id number], [place] [address] Oct, [facility] [address] [facility] [id number][place] [id number] Sep, [facility] [place] [facility] [address] [id number] [address] Sep, [facility] [address] [facility] [id number][place] [id number] Aug, [facility] [place] [facility] [address] [facility] [id number] [address] Aug, [facility] [address] [facility] [id number][place] [id number] Aug, [facility] [place] [facility] [address] [id number] [address] Aug, [facility] [place] [facility] [id number] [address] Aug, [facility] [address] [id number] [place] [id number] Aug, [facility] [place] [facility] [address] [facility] [id number], [place] [address] Aug, [facility] [place] [facility] [address] [facility] [id number] [address] Aug, [facility] [address] [id number], [place] [id number] Aug, [facility] [place] [facility] [address] [facility] [id number] [place] [address] Aug, [facility] [address] [facility] [id number] [place] [id number] Jul, [facility] [place] [facility] [id number] [address] Jul, [facility] [address] [id number], [place] [id number] Jul, [facility] [place] [facility] [address] [id number] [address] Jul, [facility] [address] [facility] [id number], [place] [id number] Jul, [facility] [place] [facility] [address] [id number], [place] [address] Jul, [facility] [address] [facility] [id number][place] [id number] Jul, [facility] [place] [facility] [address] [facility] [facility] [id number], [place] [address] Jul, [facility] [address] [id number] [id number] Jun, [facility] [place] [facility] [address] [facility] [id number] [place] [address] Jun, [facility] [address] [id number][place] [id number] Jun, [facility] [place] [facility] [address] [facility] [id number][place] [address] Jun, [facility] [address] [facility] [id number], [place] [address] Jun, [facility] [address] [facility] [id number][place] [address] Jun, [facility] [address] [id number] [place] [id number] Apr, [facility] [address] [id number] [place] [id number] Mar, [facility] [address] [id number] [place] [id number] Mar, [facility] [address] [id number] [place] [id number] Feb, [facility] [address] [id number] [place] [id number] Feb, [facility] [address] [id number] [place] [id number] Feb, [facility] [address] [id number] [place] [id number] December, [facility] [address] [id number] [place] [id number] December, [facility] [address] [facility] [id number], [place] [address] December, [facility] [address] [id number] [place] [id number] December, [facility] [address] [id number] [place] [id number] December, [facility] [address] [id number] [place] [address] Nov, [facility] [address] [id number] [place] [id number] Nov, [facility] [address] [id number] [place] [id number] Nov, [facility] [address] [id number] [place] [id number] Oct, [facility] [address] [id number][place] [address] Sep, [facility] [address] [id number] [place] [id number] Aug, [facility] [place] [facility] [address] [facility] [id number], [place] [address] Aug, [facility] [address] [id number][place] [id number] Aug, [facility] [address] [id number][place] [id number] Jul, [facility] [place] [facility] [address] [facility] [id number], [place] [address] Jul, [facility] [address] [id number][place] [address] Jul, [facility] [place] [facility] [address] [facility] [id number][place] [address] Jul, [facility] [address] [id number][place] [address] Jun, [facility] [place] [facility] [address] [facility] [id number][place] [address] Jun, [facility] [address] [id number][place] [address] May, [facility] [place] [facility] [address] [facility] [id number], [place] [address] May, [facility] [address] [id number], [place] [address] May, [facility] [place] [facility] [address] [facility] [id number], [place] [address] May, [facility] [address] [id number], [place] [id number] Apr, [facility] [address] [id number], [place] [id number] Apr, [facility] [address] [id number][place] [address] Mar, [facility] [address] [id number] [place] [address] Mar, [facility] [address] [id number] [place] [id number] Feb, [facility] [address] [id number] [place] [id number] Feb, [facility] [address] [id number] [place] [address] Jan, [facility] [address] [id number] [place] [address] Jan, [facility] [address] [id number] [place] [id number] Jan, [facility] [address] [id number] [place] [id number] Jan, [facility] [address] [id number] [place] [address]40[address] December, [facility] [address] [id number] [place] [id number] December, [facility] [address] [facility] [id number], [place] [address] Nov, [facility] [address] [id number] [place] [id number] Nov, [facility] [address] [id number] [place] [address] Nov, [facility] [address] [id number] [place] [id number] Nov, [facility] [address] [id number] [place] [id number] Nov, [facility] [address] [facility] [id number], [place] [address] Oct, [facility] [address] [facility] [id number], [place] [address] Oct, [facility] [address] [id number] [place] [id number] Oct, [facility] [address] [id number] [place] 699[address]47[address] Oct, [facility] [address] [id number] [place] [id number] Oct, [facility] [place] [address] [id number] [place] [id number] Oct, [facility] [place] [address] [id number] [place] [address] Oct, [facility] [place] [address] [id number] [place] [id number] Oct, [facility] [place] [address] [id number] [place] [id number] Oct, [facility] [address] [id number] [place] [address] Oct, [facility] [place] [address] [id number] [place] [id number] Sep, [facility] [place] [address] [id number] [place] [address] Sep, [facility] [address] [id number] [place] [address] Aug, [facility] [address] [id number] [place] [address] Aug, [facility] [place] [facility] [address] [id number], [place] [address] Jul, [facility] [place] [facility] [address] [id number], [place] [address] Jul, [facility] [place] [facility] [id number], [place] [address] Jul, [facility] [place] [facility] [address] [id number], [place] [address] Jul, [facility] [place] [facility] [address] [facility] [id number], [place] [address] Jul, [facility] [place] [facility] [address] [facility] [id number], [place] [address] Jul, [facility] [place] [facility] [id number] [address] Jul, [facility] [place] [facility] [address] [id number], [place] [address] Jul, [facility] [address] [id number], [place] [address] Jul, [facility] [id number], [place] [address] Jul, [facility] [id number], [place] [address] Jul, [facility] [id number], [place] [address] Jul, [facility] [id number] [place] [address] Jul, [facility] [address]00565100[place], [place] [address] Jul, IMMUNIZATIONS No Known Immunizations SOCIAL HISTORY Never Assessed REASON FOR VISIT Hospital Discharge PLAN OF CARE VITAL SIGNS MEDICATIONS Unknown Medications RESULTS No Results PROCEDURES No Known procedures INSTRUCTIONS MEDICATIONS ADMINISTERED No Known Medications MEDICAL (GENERAL) HISTORY Type Description Date Medical History peripheral vascular disease s/p angioplasty w/ stent R leg Medical History hypertension Medical 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 Secondary to ATN from [facility] 4.3 Medical History HX of [...]
--- OUTSIDE RECORDS SUMMARY | 2019-04-03 06:34 | XMS REPORT ---
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 Active 483453573 Problem Type 2 diabetes mellitus with diabetic polyneuropathy E11.42 Active 001059724 Problem Hypercholesterolemia E78.0 Active 81505086 Problem Fatigue, unspecified type R53.83 Active 47519146 Problem Personal history of carotid stenosis Z86.79 Active 389472943 Problem Uses walker Z99.89 Active 922524093 Problem Type 2 diabetes mellitus with diabetic neuropathy E11.40 Active 15017655 Problem Aphasia R47.01 Active 33679980 Problem S/P coronary artery stent placement Z95.5 Active 171158777 Problem Type 2 diabetes mellitus with diabetic retinopathy, macular edema presence unspecified, with unspecified retinopathy severity E11.319 Active 03419359 Problem Osteomyelitis of right foot, unspecified chronicity M86.9 Active 33259202 Problem CKD (chronic kidney disease), stage 3 (moderate) N18.3 Active 711916744 Problem Essential hypertension I10 Active 84263891 Problem GERD without esophagitis K21.9 Active 936873768 Problem Insulin long-term use Z79.4 Active 555845334 Problem CKD (chronic kidney disease) stage 3, GFR 30-59 ml/min N18.3 Active 346037303 Problem Type 2 diabetes mellitus with diabetic peripheral angiopathy without gangrene E11.51 Active 578571124 Problem Chronic kidney disease, unspecified N18.9 Active 893184323 Problem Coronary artery 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 Active 1728641457643 Problem Mixed hyperlipidemia E78.2 Active 001031612 Problem Hyperlipidemia, unspecified hyperlipidemia E78.5 Active 28689224 Problem Obesity (BMI 30.0-34.9) E66.9 Active 359826762220439 Problem Chronic obstructive pulmonary disease, unspecified COPD type J44.9 Active 09739762 Problem Frequent falls R29.6 Active 942833845 Problem Peripheral vascular disease I73.9 Active 814947060 Problem Chronic diarrhea K52.9 Active 558524583 Problem Other chronic pain G89.29 Active 01973379 Problem Full incontinence of feces R15.9 Active 019645655446486 Problem Major depressive disorder, single episode, mild F32.0 Active 59192824 Problem Pain in left shoulder M25.512 Active 04782515 Problem Ulcer of left foot, unspecified ulcer stage L97.529 Active 59222003 Problem Chronic pain syndrome G89.4 Active 167089825 Problem Diabetes type 2, uncontrolled E11.65 Active 778535012 Problem High risk medication use Z79.899 Active 469822194 Problem Fecal urgency R15.2 Active 52304840 Problem Functional diarrhea K59.1 Active 56175066 Problem Type 2 diabetes mellitus with foot ulcer E11.621 Active 070453445 Problem Mixed stress and urge urinary incontinence N39.46 Active 406671573 Problem Chronic fatigue R53.82 Active 28738702 ALLERGIES No Information ENCOUNTERS Encounter Location Date Diagnosis [facility] [address] [address] December, [place] [id number] [place] [address] [id number] Nov, Bilateral low back pain without sciatica M54.5 [place] [id number] [place] [address] [id number] Oct, Bilateral low back pain without sciatica M54.5 [place] [id number] [place] [address] [id number] Oct, [facility] [address] [address] Oct, [place] [id number] [place] [address] [id number] Sep, Other chronic pain G89.29 and Diabetes type 2, uncontrolled E11.65 [facility] [address] [id number] Sep, Type 2 diabetes mellitus with diabetic neuropathy E11.40 ; Atherosclerosis of comanche artery of both lower extremities, with unspecified presence of clinical manifestation I70.203 and Ulcer of left foot, unspecified ulcer stage L97.529 [facility] [place] [address] [id number] [id number] Sep, Bilateral low back pain without sciatica M54.5 [facility] [place] [id number] [place] [address] [id number] Aug, Bilateral low back pain without sciatica M54.5 [facility] [id number] [place] [address] [id number] Aug, [facility] [place] [address] [place] [address] [id number] Aug, Essential hypertension I10 [facility] [id number] [place] [address] [id number] Aug, [facility] [id number] [place] [address] [id number] Jul, [facility] [id number] [place] [address] [id number] Jul, Bilateral low back pain without sciatica M54.5 [facility] [id number] [place] [address] [id number] Jul, Hyperlipidemia, unspecified hyperlipidemia E78.5 [facility] [id number] [place] [address] [id number] Jul, [facility] [address] [id number] [place] [address] [id number] Jul, Type 2 diabetes mellitus with diabetic neuropathy E11.40 [facility] [address] [id number] [place] [address] [id number] Jun, [facility] [place] [id number] [place] [address] [id number] Jun, Bilateral low back pain without sciatica M54.5 [facility] [place] [id number] [place] [address] [id number] Jun, Chronic fatigue R53.82 [facility] [id number] [place] [address] [id number] Jun, Type 2 diabetes mellitus with diabetic polyneuropathy E11.42 and Bilateral low back pain without sciatica M54.5 [facility] [id number] [place] [address] [id number] May, Other chronic pain G89.29 [facility] [id number][place] [id number] May, Diabetes type 2, uncontrolled E11.65 [facility] [address] [id number] [address] 16 May, 2018 Type 2 diabetes mellitus with diabetic neuropathy E11.40 ; Coronary artery 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 and Major depressive disorder, single episode, mild F32.0 [facility] [id number], [place] [id number] May, [facility] [id number][place] [id number] May, [facility] [id number] [place] [address] [id number] May, [facility] [address] [place] [address] [id number] [place] [address] [id number] Apr, Other chronic pain G89.29 [place] [id number] [facility] [id number][place] [id number] Apr, [facility] [id number], [place] [id number] Apr, Essential hypertension I10 [facility] [id number] [place] [address] [id number] Mar, Other chronic pain G89.29 [facility] [id number], [place] [id number] Mar, [facility] [id number] [place] [address] [id number] Feb, Other chronic pain G89.29 [facility] [id number], [place] [id number] Feb, Diabetes type 2, uncontrolled E11.65 ; Type 2 diabetes mellitus with diabetic retinopathy, macular edema presence unspecified, with unspecified retinopathy severity E11.319 and Bilateral low back pain without sciatica M54.5 [facility] [id number] [place] [address] [id number] Feb, [facility] [address] [id number] Feb, Diabetes type 2, uncontrolled E11.65 [facility] [address] [address] [id number] [place] [address] [id number] Feb, Other chronic pain G89.29 [facility] [address] [place] [address] [id number] [place] [address] [id number] Jan, [place] [address] [place] [id number] [place] [address] [id number] Jan, [facility] [address] [address] [id number] [place] [address] [id number] Jan, [facility] [address] [place] [address] [id number] [place] [address] [id number] Jan, Other chronic pain G89.29 [facility] [address] [address] [id number] [place] [address] [id number] December, Mixed stress and urge urinary incontinence N39.46 [place] [id number] [place] [address] [id number] December, Chronic fatigue R53.82 [facility] [address] [place] [address] [id number] [place] [address] [id number] December, Other chronic pain G89.29 [place] [id number] [place] [address] [id number] December, Diabetes type 2, uncontrolled E11.65 ; [...] G89.29 [facility] [address]00565100[place], [place] [address] December, [place] [id number] [place] [address] [id number] December, Medicare annual wellness visit, subsequent Z00.00 ; Type 2 diabetes mellitus with diabetic polyneuropathy E11.42 ; Chronic obstructive pulmonary disease, unspecified COPD type J44.9 ; Depression F32.9 ; Peripheral vascular disease I73.9 ; Coronary artery 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 ; Hypercholesterolemia E78.0 ; GERD without esophagitis K21.9 and Chronic kidney disease, unspecified N18.9 [place] [id number] [place] [address] [id number] December, Mixed stress and urge urinary incontinence N39.46 ; Full incontinence of feces R15.9 ; Fecal urgency R15.2 ; Functional diarrhea K59.1 and Type 2 diabetes mellitus with diabetic neuropathy E11.40 [place] [id number] [place] [address] [id number] Nov, Other chronic pain G89.29 [place] [id number] [place] [address] [id number] Oct, [place] [id number] [place] [address] [id number] Oct, [place] [id number] [place] [address] [id number] Oct, Other chronic pain G89.29 [place] [id number] [place] [address] [id number] Sep, Other chronic pain G89.29 [address] [place] [address] [id number] Aug, CKD (chronic kidney disease), stage 3 (moderate) N18.3 ; Anemia, unspecified type D64.9 and Dilated pore of Ly L70.8 [address] [place] [address] [id number] Aug, Other chronic pain G89.29 ; Pain in left shoulder M25.512 ; High risk medication use Z79.899 ; Uses walker Z99.89 ; Diabetes type 2, uncontrolled E11.65 and Depression F32.9 [place] [id number] [place] [address] [id number] Aug, Chronic diarrhea K52.9 [place] [id number] [place] [address] [id number] Aug, Chronic diarrhea K52.9 ; Type 2 diabetes mellitus with diabetic neuropathy E11.40 ; Diabetes type 2, uncontrolled E11.65 ; Insulin long-term use Z79.4 ; Chronic obstructive pulmonary disease, unspecified COPD type J44.9 ; Chronic pain syndrome G89.4 ; Pain in left shoulder M25.512 ; Uses walker Z99.89 ; S/P coronary artery stent placement Z95.5 ; Mixed hyperlipidemia E78.2 and Essential hypertension I10 [place] [id number] [place] [address] [id number] Aug, [address] [id number] Jul, Diabetes type 2, uncontrolled E11.65 [place] [id number] [place] [address] [id number] Jul, Diabetes type 2, uncontrolled E11.65 ; Type 2 diabetes mellitus with diabetic neuropathy E11.40 ; Insulin long-term use Z79.4 and Chronic obstructive pulmonary disease, unspecified COPD type J44.9 [address] [place] [address] [id number] Jun, [place] [id number] [place] [address] [id number] Jun, Essential hypertension I10 [place] [id number] [place] [address] [id number] Jun, Essential hypertension I10 [place] [id number] [place] [address] [id number] Jun, Type 2 diabetes mellitus with diabetic neuropathy E11.40 ; Type 2 diabetes mellitus with diabetic polyneuropathy E11.42 ; S/P coronary artery stent placement Z95.5 ; Obesity (BMI 30.0-34.9) E66.9 ; Mixed hyperlipidemia E78.2 ; Frequent falls R29.6 ; Chronic obstructive pulmonary disease, unspecified COPD type J44.9 ; Essential hypertension I10 ; Insulin long-term use Z79.4 and High risk medication use Z79.899 [address] [place] [address] [id number] May, Diarrhea, unspecified type R19.7 ; Type 2 diabetes mellitus with diabetic neuropathy E11.40 ; Chronic obstructive pulmonary disease, unspecified COPD type J44.9 ; S/P coronary artery stent placement Z95.5 ; High risk medication use Z79.899 ; Essential hypertension I10 ; Encounter for administration of vaccine Z23 and Encounter for immunization Z23 [address] [id number][place] [id number] May, Chronic obstructive pulmonary disease, unspecified COPD type J44.9 [address] [place] [address] [id number] May, Type 2 diabetes mellitus with diabetic polyneuropathy E11.42 ; Encounter for immunization Z23 ; Needs flu shot Z23 ; Comprehensive diabetic foot examination, type 2 DM, encounter for E11.9 and Obesity (BMI 30.0-34.9) E66.9 [address] [place] [address] [id number] May, [place] [id number] [place] [address] [id number] Apr, [place] [id number] [place] [address] [id number] Apr, Essential hypertension I10 and Aphasia R47.01 [place] [id number] [place] [address] [id number] Apr, [place] [id number] [place] [address] [id number] Apr, Type 2 diabetes mellitus with diabetic [...] J44.9 [facility] [id number] [place] [address] [id number] Mar, [facility] [address] [id number] [place] [address] [id number] Mar, Type 2 diabetes mellitus with diabetic polyneuropathy E11.42 ; Leg wound, left, initial encounter S81.802A ; Hx of shoulder surgery Z98.890 ; Acute pain of left shoulder M25.512 and Fall, initial encounter W19.XXXA [facility] [address] [id number] [place] [address] [id number] Feb, Follow-up exam Z09 ; Hx of shoulder surgery Z98.890 ; Acute pain of left shoulder M25.512 ; Essential hypertension I10 and Leg wound, left, initial encounter S81.802A [facility] [address] [address] [id number] [place] [address] [id number] Feb, [facility] [address] [address] [id number] [place] [address] [id number] Feb, [facility] [address] [address] [id number] [place] [address] [id number] Feb, Chronic obstructive pulmonary disease, unspecified COPD type J44.9 [facility] [address] [address] [id number] [place] [address] [id number] Feb, [facility] [address] [address] [id number] [place] [address] [id number] Jan, Generalized weakness R53.1 ; Exertional shortness of breath R06.02 and Fungal rash of trunk B36.9 [facility] [address] [address] [id number] [place] [address] [id number] Jan, [facility] [id number] [place] [address] [id number] Jan, [facility] [address] [place] [id number] [place] [address] [id number] Jan, [facility] [address] [id number] [place] [address] [id number] Jan, [facility] [address] [address] [id number] [place] [address] [id number] December, High risk medication use Z79.[address] [id number], [place] [id number] December, Type 2 diabetes mellitus with diabetic neuropathy E11.40 [address] [place] [address] [id number] December, High risk medication use Z79.[address] [id number], [place] [id number] Nov, Diabetes type 2, uncontrolled E11.65 [place] [id number] [place] [address] [id number] Nov, Medicare annual wellness visit, initial Z00.00 ; Bilateral low back pain without sciatica M54.5 ; Pain in left shoulder M25.512 ; Chronic pain syndrome G89.4 ; Type 2 diabetes mellitus with diabetic polyneuropathy E11.42 ; High risk medication use Z79.899 and Encounter for immunization Z23 [address] [place] [address] [id number] Nov, Type 2 diabetes mellitus with diabetic neuropathy E11.40 ; Coronary artery 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 and CKD (chronic kidney disease), stage 3 (moderate) N18.3 [address] [place] [address] [id number] Oct, Type 2 diabetes mellitus with diabetic polyneuropathy E11.42 ; Chronic pain syndrome G89.4 ; Chronic obstructive pulmonary disease, unspecified COPD type J44.9 ; Chronic kidney disease, unspecified N18.9 and Rash R21 [place] [address] [facility] [id number][place] [id number] Oct, Type 2 diabetes mellitus with diabetic neuropathy E11.[address] [id number], [place] [id number] Oct, Rash R21 and Impetigo L01.00 [address] [id number] Oct, Chronic pain syndrome G89.[address] [id number], [place] [id number] Oct, [place] [id number] [id number] Sep, Sebaceous cyst L72.3 [facility] [id number] [place] [address] [id number] Sep, Sebaceous cyst L72.3 [facility] [address] [id number] [place] [address] [id number] Sep, Chronic pain syndrome G89.4 ; Pain in left shoulder M25.512 and Effusion of olecranon bursa, left M25.422 [facility] [address] [id number], [place] [address] Aug, [facility] [address] [id number] [place] [address] [id number] Aug, [facility] [address] [id number] [place] [address] [id number] Aug, Mixed hyperlipidemia E78.2 and Chronic kidney disease, unspecified N18.9 [facility] [address] [id number] [place] [address] [id number] Jul, Type 2 diabetes mellitus with diabetic neuropathy E11.40 ; Essential hypertension I10 and S/P coronary artery stent placement Z95.5 [facility] [address] [id number] [place] [address] [id number] Jul, 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 [facility] [address] [id number] [place] [address] [id number] Jul, Diabetes type 2, uncontrolled E11.65 ; Essential hypertension I10 and 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 [facility] [id number] [place] [address] [id number] Jul, [facility] [id number] [place] [address] [id number] Jul, [facility] [address] [id number] [place] [address] [id number] Jul, [facility] [id number] [place] [address] [id number] Jul, Chronic obstructive pulmonary disease, unspecified COPD type J44.9 [facility] [id number] [place] [address] [id number] Jun, CKD (chronic kidney disease), stage 3 (moderate) N18.3 and Anemia, unspecified type D64.9 [place] [id number] [place] [address] [id number] Jun, Type 2 diabetes mellitus with diabetic neuropathy E11.40 ; Decreased GFR R94.4 ; CKD (chronic kidney disease), stage 3 (moderate) N18.3 and Decreased hemoglobin R71.0 [place] [id number] [place] [address] [id number] Jun, CKD (chronic kidney disease), stage 3 (moderate) N18.3 and Anemia, unspecified type D64.9 [place] [id number] [place] [address] [id number] Jun, Type 2 diabetes mellitus with diabetic neuropathy E11.40 ; Decreased GFR R94.4 and CKD (chronic kidney disease), stage 3 (moderate) N18.3 [place] [id number] [place] [address] [id number] Jun, Type 2 diabetes mellitus with diabetic neuropathy E11.40 and Essential hypertension I10 [place] [id number] [place] [address] [id number] Jun, [address] [id number] Jun, [place] [id number] [place] [address] [id number] Jun, Type 2 diabetes mellitus with diabetic neuropathy E11.40 ; S/P coronary artery stent placement Z95.5 ; Chronic obstructive pulmonary disease, unspecified COPD type J44.9 ; Essential hypertension I10 ; GERD without esophagitis K21.9 ; Peripheral vascular disease I73.9 ; Mixed hyperlipidemia E78.2 and Hospital discharge follow-up Z09 [place] [id number] [place] [address] [id number] 07 Jun, [address] [id number] May, 2016 Depression F32.9 and Hyperlipidemia, unspecified hyperlipidemia E78.5 [facility] [id number] [place] [address] May, [address] [place] [address] [id number] May, [address] [id number] May, Essential hypertension I10 ; Chronic pain syndrome G89.4 ; Pain in left shoulder M25.512 ; High risk medication use Z79.899 ; Chronic obstructive pulmonary disease, unspecified COPD type J44.9 ; S/P coronary artery stent placement Z95.5 ; Personal history of carotid stenosis Z86.79 ; Hyperlipidemia, unspecified hyperlipidemia E78.5 ; Decreased GFR R94.4 and Type 2 diabetes mellitus with diabetic polyneuropathy E11.42 [place] [id number] [place] [address] [id number] May, Hemoglobin decreased R71.0 and Decreased GFR R94.4 [place] [id number] [place] [address] [id number] May, Hemoglobin decreased R71.0 and Decreased GFR R94.4 [place] [id number] [place] [address] [id number] May, [place] [id number] [place] [address] [id number] May, [place] [id number] [place] [address] [id number] Apr, [place] [id number] [place] [address] [id number] Apr, Type 2 diabetes mellitus with foot [...] unspecified hyperlipidemia E78.5 and Essential hypertension I10 [place] [id number] [place] [address] [id number] Apr, [address] [id number][place] [id number] Mar, [facility] [id number], [place] [id number] Mar, [facility] [address]65100[place], [place] [address] Mar, [facility] [id number] [place] [address] [id number] Feb, [facility] [id number] [place] [address] [id number] Feb, [facility] [id number] [place] [address] [id number] Feb, [facility] [id number] [place] [address] [id number] Jan, Type 2 diabetes mellitus with diabetic polyneuropathy E11.42 ; Hypercholesterolemia E78.0 ; Chronic pain syndrome G89.4 ; Pain in left shoulder M25.512 and High risk medication use Z79.899 [facility] [id number], [place] [id number] Jan, [facility] [id number] [place] [address] [id number] Jan, [facility] [id number] [place] [address] [id number] December, [facility] [facility] [id number] [place] [address] [id number] December, [place] [address]00565100[place], [place] [address] December, Diabetes type 2, uncontrolled E11.65 ; Type 2 diabetes mellitus with diabetic neuropathy E11.40 ; Peripheral vascular disease I73.9 ; 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 and 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 [facility] [id number], [place] [id number] Nov, [facility] [id number], [place] [id number] Nov, [facility] [address] [id number] [place] [address] [id number] Nov, [facility] [address] [id number], [place] [id number] Nov, Right hip pain M25.551 [facility] [address] [facility] [id number] [place] [address] Nov, [facility] [address] [facility] [id number], [place] [address] Nov, [facility] [id number] [place] [address] [id number] Nov, Diabetes with neurological manifestations, type II or unspecified type, not stated as uncontrolled 250.60 [facility] [address] [id number] [place] [address] [id number] Nov, [facility] [id number] [place] [address] [id number] Nov, [facility] [address] [id number] [place] [address] [id number] Oct, Diabetes type 2, uncontrolled E11.65 ; Type 2 diabetes mellitus with diabetic neuropathy, unspecified E11.40 and Low back pain M54.5 [facility] [address] [id number], [place] [id number] Oct, [facility] [address] [id number], [place] [id number] Oct, [facility] [address] [id number], [place] [id number] Oct, [facility] [address] [id number], [place] [id number] Sep, [facility] [address] [id number], [place] [id number] Sep, [facility] [address] [facility] [id number], [place] [address] Sep, [facility] [address] [id number], [place] [id number] Sep, [facility] [address] [id number], [place] [id number] Sep, [facility] [place]00565100[place] [id number] Aug, 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 [place] [id number], [place] [id number] Aug, [facility] [id number] [place] [address] [id number] Aug, Allergic rhinitis due to pollen J30.1 [facility] [address] [place], [place] [address] [id number][place] [id number] Jul, [place] [id number] [place] [address] [id number] Jul, [id number] [place] [address] [id number] Jul, [address] [place] [address] [id number] Jun, [address] [place] [address] [id number] Jun, Thumb tendonitis M77.8 and Ringing in ear, bilateral H93.13 [facility] [address] [facility] [id number][place] [id number] Jun, [address] [place] [address] [id number] May, [facility] [address] [id number] [place] [address] May, [facility] [address] [place] [id number] [place] [address] May, Pre-op evaluation Z01.818 ; Encounter for immunization Z23 ; Type 2 diabetes mellitus with diabetic peripheral angiopathy without gangrene E11.51 ; Insulin long-term use Z79.4 ; Type 2 diabetes mellitus with foot ulcer E11.621 ; Peripheral vascular disease I73.9 ; Coronary artery 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 ; S/P coronary artery stent placement Z95.5 ; Osteomyelitis of right foot, unspecified chronicity M86.9 and Chronic obstructive pulmonary disease, unspecified COPD type J44.9 [facility] [address] [id number] [place] [address] May, [facility] [id number] [place] [address] [id number] May, [facility] [id number] [place] [address] [id number] May, Diabetes type 2, uncontrolled E11.65 ; Encounter for immunization Z23 ; Osteopenia M85.80 and Allergic rhinitis due to pollen J30.1 [facility] [id number] [place] [address] [id number] May, Lumbago 724.2 [facility] [id number] [place] [address] [id number] Apr, [facility] [id number] [place] [address] [id number] Apr, [facility] [id number] [place] [address] [id number] Apr, [facility] [id number] [place] [address] [id number] Apr, [facility] [id number] [place] [address] Mar, [facility] [id number] [place] [address] [id number] Mar, [facility] [id number] [place] [address] [id number] Mar, [facility] [id number] [place] [address] [id number] Mar, [facility] [id number] [place] [address] [id number] Mar, [facility] [id number] [place] [address] Mar, [facility] [id number] [place] [address] [id number] Mar, [facility] [id number] [place] [address] [id number] Mar, Diabetes with neurological manifestations, type II or unspecified type, not stated as uncontrolled 250.60 and Severe obesity (BMI 35.0-35.9 with comorbidity) 278.01 [facility] [id number], [place] [id number] Mar, [facility] [address]00565100[place], [place] [address] Mar, [facility] [address]00565100[place], [place] [address] Feb, [facility] [id number], [place] [id number] Feb, [facility] [id number], [place] [id number] Feb, [facility] [id number] [place] [address] [id number] Feb, Diabetes with neurological manifestations, type II or unspecified type, not stated as uncontrolled 250.60 [facility] [id number], [place] [id number] Feb, [facility] [address]00565100[place], [place] [address] Feb, [facility] [id number], [place] [id number] Feb, [facility] [id number] [place] [address] [id number] Feb, Follow up V67.9 ; Diabetes with neurological manifestations, type II or unspecified type, not stated as uncontrolled 250.60 and Congestive heart failure 428.0 [facility] [id number], [place] [id number] Jan, [facility] [id number], [place] [id number] Jan, [facility] [id number], [place] [id number] Jan, [facility] [id number], [place] [id number] December, Otitis media with effusion 381.4 ; Left arm numbness 782.0 and Osteoporosis 733.00 [facility] [address] [address] [id number], [place] [id number] December, [facility] [address] [facility] [id number], [place] [id number] Nov, [facility] [address] [place] [address] [id number], [place] [id number] Nov, Serous otitis media 381.4 and Lumbago 724.2 [facility] [place] [facility] [address] [id number], [place] [address] Nov, [facility] [place] [address]00565100[place], [place] [address] Nov, [facility] [id number], [place] [id number] Oct, [facility] [place] [address]00565100[place], [place] [address] Oct, [facility] [id number], [place] [id number] Oct, [facility] [place] [facility] [address]00565100[place], [place] [address] Oct, [facility] [id number], [place] [id number] Oct, [facility] [place] [facility] [address]00565100[place], [place] [address] Oct, [facility] [place] [facility] [address]00565100[place], [place] [address] Sep, [facility] [place] [facility] [address]00565100[place], [place] [address] Sep, [facility] [address] [place] [id number], [place] [id number] Sep, [facility] [place] [facility] [address]00565100[place], [place] [address] Sep, [facility] [address] [place] [address] [id number], [place] [id number] Aug, [facility] [place] [facility] [address]00565100[place], [place] [address] Aug, [facility] [address] [id number] [place] [id number] Aug, [facility] [place] [facility] [address] [facility] [id number], [place] [address] Aug, [facility] [address] [id number] [place] [id number] Jul, [facility] [place] [facility] [address] [facility] [id number], [place] [address] Jul, [facility] [address] [id number] [place] [id number] Jul, [facility] [address] [facility] [id number], [place] [address] Jul, [facility] [address] [facility] [id number], [place] [id number] Jul, [facility] [address] [facility] [id number], [place] [address] Jul, [facility] [address] [id number], [place] [id number] Jun, [facility] [address] [facility] [id number], [place] [address] Jun, [facility] [address] [facility] [id number], [place] [id number] May, [facility] [place] [facility] [address] [facility] [id number], [place] [address] May, [facility] [address] [id number], [place] [id number] May, [facility] [place] [facility] [address] [facility] [id number], [place] [address] May, [facility] [address] [id number], [place] [id number] May, [facility] [place] [facility] [address] [facility] [id number], [place] [address] May, [facility] [address] [id number], [place] [id number] May, [facility] [address] [id number] [place] [id number] May, [facility] [place] [facility] [address] [facility] [id number] [place] [address] May, [facility] [place] [facility] [address] [facility] [id number] [place] [address] May, [facility] [address] [id number] [place] [id number] May, [facility] [place] [facility] [address] [facility] [id number] [place] [address] May, [facility] [place] [facility] [address] [facility] [id number] [place] [address] Apr, [facility] [address] [facility] [id number] [place] [id number] Apr, [facility] [place] [facility] [address] [facility] [id number], [place] [address] Apr, [facility] [address] [id number], [place] [id number] Apr, [facility] [address] [id number], [place] [id number] Apr, [facility] [place] [facility] [address] [facility] [id number], [place] [address] Apr, [facility] [place] [facility] [address] [facility] [id number], [place] [address] Apr, [facility] [address] [id number], [place] [id number] Apr, [facility] [place] [facility] [address] [facility] [id number], [place] [address] Apr, [facility] [address] [facility] [id number], [place] [id number] Apr, [facility] [place] [facility] [address] [facility] [id number], [place] [address] Apr, [facility] [address] [id number] [place] [id number] Apr, [facility] [place] [facility] [address] [id number] [place] [address] Apr, [facility] [address] [id number] [place] [id number] Apr, [facility] [place] [facility] [address] [facility] [id number], [place] [address] Apr, [facility] [address] [id number] [place] [id number] Apr, [facility] [place] [facility] [address] [facility] [id number] [place] [address] Apr, [facility] [address] [id number] [place] 729863883 Apr, [facility] [place] [facility] [address]00565100[place], [place] [address] Apr, [facility] [address] [id number], [place] 080449277 Mar, [facility] [place] [facility] [address] [facility] [id number], [place] [address] Mar, [facility] [address] [id number], [place] [id number] Mar, [facility] [address] [id number], [place] 634266003 Mar, [facility] [place] [facility] [address] [facility] [id number], [place] [address] Mar, [facility] [place] [facility] [address] [facility] [id number], [place] [address] Mar, [facility] [address] [id number] [place] [id number] Mar, [facility] [place] [facility] [address] [facility] [id number], [place] [address] Mar, [facility] [address] [id number] [place] [id number] Mar, [facility] [place] [facility] [address] [facility] [id number] [place] [address] Mar, [facility] [address] [id number] [place] [id number] Mar, [facility] [place] [facility] [address] [facility] [id number] [place] [address] Mar, [facility] [address] [id number] [place] [id number] Mar, [facility] [place] [facility] [address] [id number] [place] [address] Mar, [facility] [address] [id number] [place] [id number] Mar, [facility] [place] [facility] [address] [facility] [id number] [place] [address] Mar, [facility] [address] [id number] [place] [id number] Mar, [facility] [place] [facility] [address] [facility] [id number], [place] [address] Mar, [facility] [address] [id number] [place] [id number] Mar, [facility] [place] [facility] [address] [facility] [id number] [place] [address] Mar, [facility] [address] [id number] [place] [id number] Feb, [facility] [place] [facility] [address] [facility] [id number] [place] [address] Feb, [facility] [address] [id number] [place] [id number] Feb, [facility] [place] [facility] [address] [id number] [place] [address] Feb, [facility] [address] [id number] [place] [id number] Feb, [facility] [place] [facility] [address] [facility] [id number] [place] [address] Feb, [facility] [address] [id number] [place] [id number] Feb, [facility] [place] [facility] [address] [id number] [place] [address] Feb, [facility] [address] [id number] [place] [id number] Feb, [facility] [place] [facility] [address] [id number] [place] [address] Feb, [facility] [address] [id number] [place] [id number] Feb, [facility] [place] [facility] [address] [id number] [place] [address] Feb, [facility] [address] [id number] [place] [id number] Feb, [facility] [place] [facility] [address] [facility] [id number] [place] [address] Feb, [facility] [address] [id number] [place] [id number] Feb, [facility] [place] [facility] [address] [facility] [id number] [place] [address] Feb, [facility] [address] [id number] [place] [id number] Feb, [facility] [place] [facility] [address] [id number] [place] [address] Feb, [facility] [address] [id number] [place] 069152534 Feb, [facility] [address] [id number] [place] [id number] Feb, [facility] [place] [facility] [address] [id number] [place] [address] Feb, [facility] [place] [facility] [address] [id number] [place] [address] Feb, [facility] [address] [id number] [place] 122541510 Feb, [facility] [place] [facility] [address] [facility] [id number], [place] [address] Feb, [facility] [address] [id number] [place] [id number] Feb, [facility] [place] [facility] [address] [facility] [id number], [place] [address] Feb, [facility] [address] [id number] [place] 660744211 Feb, [facility] [place] [facility] [address] [facility] [id number], [place] [address] Feb, [facility] [address] [facility] [id number] [place] 212813160 Jan, [facility] [place] [facility] [address] [facility] [id number], [place] [address] Jan, [facility] [place] [facility] [address] [facility] [id number], [place] [address] Jan, [facility] [place] [facility] [address] [facility] [id number], [place] [address] Jan, [facility] [place] [facility] [address] [facility] [id number], [place] [address] Jan, [facility] [place] [facility] [address] [facility] [id number], [place] [address] Jan, [facility] [address] [facility] [id number], [place] [id number] Jan, [facility] [place] [facility] [address] [facility] [id number], [place] [address] Jan, [facility] [place] [facility] [address] [facility] [id number], [place] [address] Jan, [facility] [place] [facility] [address] [facility] [id number], [place] [address] Jan, [facility] [address] [id number] [place] [id number] Jan, [facility] [address] [id number] [place] [id number] Jan, [facility] [place] [facility] [address] [id number] [place] [address] Jan, [facility] [place] [facility] [address] [id number] [place] [address] Jan, [facility] [address] [id number] [place] [id number] Jan, [facility] [address] [id number] [place] 919216114 Jan, [facility] [place] [facility] [address] [id number] [place] [address] Jan, [facility] [place] [facility] [address] [id number] [place] [address] Jan, [facility] [place] [facility] [address] [facility] [id number] [place] [address] Jan, [facility] [address] [facility] [id number], [place] [id number] December, [facility] [place] [facility] [address] [facility] [id number] [place] [address] December, [facility] [place] [facility] [address] [facility] [id number] [place] [address] December, [facility] [address] [facility] [id number], [place] [id number] December, [facility] [place] [facility] [address] [facility] [id number] [place] [address] December, [facility] [address] [facility] [id number][place] [id number] December, [facility] [place] [facility] [address] [id number], [place] [address] December, [facility] [address] [facility] [id number][place] [id number] December, [facility] [place] [facility] [address] [facility] [id number] [place] [address] December, [facility] [address] [id number][place] [id number] Nov, [facility] [place] [facility] [address] [facility] [id number] [place] [address] Nov, [facility] [address] [facility] [id number][place] [id number] Nov, [facility] [place] [facility] [address] [facility] [id number] [place] [address] Nov, [facility] [place] [facility] [address] [facility] [id number], [place] [address] Nov, [facility] [place] [facility] [address] [facility] [id number] [place] [address] Nov, [facility] [place] [facility] [address] [facility] [id number], [place] [address] Oct, [facility] [address] [id number][place] [id number] Oct, [facility] [place] [facility] [address] [facility] [id number], [place] [address] Oct, [facility] [address] [facility] [id number] [place] [id number] Oct, [facility] [place] [facility] [address] [facility] [id number], [place] [address] Oct, [facility] [address] [facility] [id number], [place] [id number] Sep, [facility] [place] [facility] [address] [facility] [id number], [place] [address] Sep, [facility] [address] [facility] [id number][place] [id number] Aug, [facility] [place] [facility] [address] [facility] [id number], [place] [address] Aug, [facility] [address] [facility] [id number][place] [id number] Aug, [facility] [place] [facility] [address] [facility] [id number], [place] [address] Aug, [facility] [place] [facility] [address] [facility] [id number], [place] [address] Aug, [facility] [address] [facility] [id number] [place] [id number] Aug, [facility] [place] [facility] [address] [facility] [id number] [place] [address] Aug, [facility] [place] [facility] [address] [facility] [id number], [place] [address] Aug, [facility] [address] [facility] [id number] [place] [id number] Aug, [facility] [place] [facility] [address] [facility] [id number], [place] [address] Aug, [facility] [address] [id number] [place] [id number] Jul, [facility] [id number] [address] Jul, [facility] [address] [id number][place] [id number] Jul, [facility] [address] [facility] [id number], [place] [address] Jul, [facility] [address] [id number][place] [id number] Jul, [facility] [place] [facility] [address] [facility] [id number], [place] [address] Jul, [facility] [address] [facility] [id number][place] [id number] Jul, [facility] [place] [facility] [address] [facility] [id number], [place] [address] Jul, [facility] [address] [facility] [id number], [place] [id number] Jun, [facility] [place] [facility] [address] [facility] [id number], [place] [address] Jun, [facility] [address] [facility] [id number], [place] [id number] Jun, [facility] [address] [facility] [id number], [place] [address] Jun, [facility] [address] [facility] [id number], [place] [address] Jun, [facility] [address] [facility] [id number], [place] [address] Jun, [facility] [address] [id number] [place] [id number] Apr, [facility] [address] [id number] [place] [id number] Mar, [facility] [address] [id number] [place] [id number] Mar, [facility] [address] [id number] [place] [id number] Feb, [facility] [address] [id number] [place] [id number] Feb, [facility] [address] [id number] [place] [id number] Feb, [facility] [address] [id number] [place] [id number] December, [facility] [address] [id number] [place] [id number] December, [facility] [address] [facility] [id number], [place] [address] December, [facility] [address] [id number] [place] [id number] December, [facility] [address] [id number] [place] [id number] December, [facility] [address] [id number] [place] [id number] Nov, [facility] [address] [id number] [place] [id number] Nov, [facility] [address] [id number] [place] [id number] Nov, [facility] [address] [id number][place] [id number] Oct, [facility] [address] [id number] [place] [id number] Sep, [facility] [address] [id number] [place] [id number] Aug, [facility] [address] [facility] [id number], [place] [address] Aug, [facility] [address] [id number] [place] [id number] Aug, [facility] [address] [id number] [place] [id number] Jul, [facility] [address] [facility] [id number], [place] [address] Jul, [facility] [address] [facility] [id number][place] [id number] Jul, [facility] [address] [facility] [id number], [place] [address] Jul, [facility] [address] [facility] [id number][place] [id number] Jun, [facility] [address] [facility] [id number], [place] [address] Jun, [facility] [address] [facility] [id number][place] [id number] May, [facility] [address] [facility] [id number], [place] [address] May, [facility] [address] [id number][place] [id number] May, [facility] [place] [facility] [address] [facility] [id number], [place] [address] May, [facility] [address] [id number][place] [id number] Apr, [facility] [address] [id number][place] [id number] Apr, [facility] [address] [id number], [place] [id number] Mar, [facility] [address] [id number] [place] [id number] Mar, [facility] [address] [id number] [place] [id number] Feb, [facility] [address] [id number] [place] [id number] Feb, [facility] [address] [id number] [place] [id number] Jan, [facility] [address] [id number] [place] [id number] Jan, [facility] [address] [id number] [place] [id number] Jan, [facility] [address] [id number] [place] [id number] Jan, [facility] [address] [id number] [place] [id number] December, [facility] [address] [id number] [place] [id number] December, [facility] [place] [facility] [address] [facility] [id number], [place] [address] Nov, [facility] [address] [id number] [place] [id number] Nov, [facility] [address] [id number] [place] [id number] Nov, [facility] [address] [id number] [place] [id number] Nov, [facility] [address] [id number] [place] [id number] Nov, [facility] [place] [facility] [address] [facility] [id number], [place] [address] Oct, [facility] [place] [facility] [address] [facility] [id number] [place] [address] Oct, [facility] [address] [id number] [place] [id number] Oct, [facility] [address] [id number] [place] [id number] Oct, [facility] [address] [id number] [place] [id number] Oct, [facility] [address] [id number] [place] [id number] Oct, [facility] [address] [id number] [place] [id number] Oct, [facility] [address] [id number] [place] [id number] Oct, [facility] [address] [id number] [place] [id number] Oct, [facility] [place] [facility] [address] [id number] [place] [address] Oct, [facility] [address] [id number] [place] [id number] Sep, [facility] [address] [id number] [place] [id number] Sep, [facility] [address] [id number] [place] [id number] Aug, [facility] [address] [id number] [place] [address] Aug, [facility] [place] [facility] [address], [place] [address] Jul, [facility] [place] [facility] [address], [place] [address] Jul, [facility] [place] [facility] [address], [place] [address] Jul, [facility] [place] [facility] [address] [facility] [id number], [place] [address] Jul, [facility] [place] [facility] [address] [facility] [id number], [place] [address] Jul, [facility] [place] [facility] [address] [facility] [id number], [place] [address] Jul, [facility] [place] [facility] [address], [place] [address] Jul, [facility] [address] [id number], [place] [address] Jul, [facility] [address]65[address], [place] [address] Jul, [facility] [address] [id number], [place] [address] Jul, [facility] [id number] [place] [address] Jul, [facility] [address], [place] [address] Jul, [facility] [address], [place] [address] Jul, [facility] [address], [place] [address] Jul, IMMUNIZATIONS No Known Immunizations SOCIAL HISTORY Never Assessed REASON FOR VISIT [facility] PLAN OF CARE VITAL SIGNS MEDICATIONS Unknown Medications RESULTS No Results PROCEDURES No Known procedures INSTRUCTIONS MEDICATIONS ADMINISTERED No Known Medications MEDICAL (GENERAL) HISTORY Type Description Date Medical History peripheral vascular disease s/p angioplasty w/ stent R leg Medical History hypertension Medical 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 Secondary to ATN from [facility] 4.3 Medical History HX of dry [...] Surgical History Left eye retinal eye repair ([facility]) 06/2014 Surgical History amputation, toe-right third toe ([facility]) 2013 Surgical History Right eye retinal eye repair ([facility]) 09/2014 Surgical History heart cath with [...]
--- OUTSIDE RECORDS SUMMARY | 2019-04-03 06:35 | XMS REPORT ---
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 Active 226230514 Problem 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 Active 880033087 Problem Type 2 diabetes mellitus with diabetic polyneuropathy E11.42 Active 775473191 Problem Hypercholesterolemia E78.0 Active 28853351 Problem Fatigue, unspecified type R53.83 Active 52241734 Problem Personal history of carotid stenosis Z86.79 Active 850844838 Problem Uses walker Z99.89 Active 880110691 Problem Chronic obstructive pulmonary disease, unspecified COPD type J44.9 Active 93095320 Problem Aphasia R47.01 Active 17553314 Problem Peripheral vascular disease I73.9 Active 554737025 Problem Type 2 diabetes mellitus with diabetic neuropathy E11.40 Active 35801627 Problem S/P coronary artery stent placement Z95.5 Active 054614348 Problem CKD (chronic kidney disease), stage 3 (moderate) N18.3 Active 676783175 Problem Essential hypertension I10 Active 32326033 Problem GERD without esophagitis K21.9 Active 648523834 Problem Type 2 diabetes mellitus with diabetic peripheral angiopathy without gangrene E11.51 Active 066513544 Problem CKD (chronic kidney disease) stage 3, GFR 30-59 ml/min N18.3 Active 286902973 Problem Type 2 diabetes mellitus with foot ulcer E11.621 Active 507766247 Problem Chronic kidney disease, unspecified N18.9 Active 915188300 Problem Depression F32.9 Active 86543880 Problem Mixed hyperlipidemia E78.2 Active 670558666 Problem Insulin long-term use Z79.4 Active 980432700 Problem Obesity (BMI 30.0-34.9) E66.9 Active 386626998220109 Problem Coronary artery disease involving [place] coronary artery of [place] heart without angina pectoris I25.10 Active 7577777027368 Problem Frequent falls R29.6 Active 351185942 Problem Hyperlipidemia, unspecified hyperlipidemia E78.5 Active 60097751 Problem Chronic diarrhea K52.9 Active 386154880 Problem Other chronic pain G89.29 Active 94536358 Problem Full incontinence of feces R15.9 Active 184637456062082 Problem Major depressive disorder, single episode, mild F32.0 Active 65020132 Problem Chronic pain syndrome G89.4 Active 436402405 Problem Ulcer of left foot, unspecified ulcer stage L97.529 Active 64814939 Problem High risk medication use Z79.899 Active 199277027 Problem Osteomyelitis of right foot, unspecified chronicity M86.9 Active 51662135 Problem Pain in left shoulder M25.512 Active 75316727 Problem Diabetes type 2, uncontrolled E11.65 Active 105935925 Problem Fecal urgency R15.2 Active 22026464 Problem Functional diarrhea K59.1 Active 33188395 Problem Type 2 diabetes mellitus with diabetic retinopathy, macular edema presence unspecified, with unspecified retinopathy severity E11.319 Active 07440666 Problem Mixed stress and urge urinary incontinence N39.46 Active 820842366 Problem Chronic fatigue R53.82 Active 55405170 ALLERGIES No Information ENCOUNTERS Encounter Location Date Diagnosis [facility] [address] [address] 14 Dec, [address] [id number] Nov, Encounter for Medicare annual wellness exam Z00.00 [facility] [address] [id number] Oct, Bilateral low back pain without sciatica M54.5 [place] [id number] [place] [address] [id number] 15 Oct, 2018 [facility] [address] [address] 07 Oct, 2018 [place] [id number] [place] [address] [id number] Sep, Other chronic pain G89.29 and Diabetes type 2, uncontrolled E11.65 [address] [id number] Sep, Type 2 diabetes mellitus with diabetic neuropathy E11.40 ; Atherosclerosis of [place] artery of both lower extremities, with unspecified presence of clinical manifestation I70.203 and Ulcer of left foot, unspecified ulcer stage L97.529 [facility] [address] [id number] [place] [id number] Sep, Bilateral low back pain without sciatica M54.5 [facility] [address] [id number] [place] [id number] Aug, Bilateral low back pain without sciatica M54.5 [facility] [address] [id number] [place] [id number] Aug, [facility] [address] [id number] [place] [id number] Aug, Essential hypertension I10 [facility] [address] [id number] [place] [id number] Aug, [facility] [address] [id number] [place] [address] [id number] Jul, [facility] [address] [id number] [place] [id number] Jul, Bilateral low back pain without sciatica M54.5 [facility] [address] [id number] [place] [id number] Jul, Hyperlipidemia, unspecified hyperlipidemia E78.5 [facility] [id number] [place] [address] [id number] Jul, [facility] [id number] [place] [address] [id number] Jul, Type 2 diabetes mellitus with diabetic neuropathy E11.40 [facility] [address] [id number] [place] [id number] Jun, [facility] [address] [id number] [place] [id number] Jun, Bilateral low back pain without sciatica M54.5 [facility] [address] [id number] [place] [id number] Jun, Chronic fatigue R53.82 [facility] [address] [id number][place] [id number] Jun, Type 2 diabetes mellitus with diabetic polyneuropathy E11.42 and Bilateral low back pain without sciatica M54.5 [facility] [id number] [place] [address] [id number] May, Other chronic pain G89.29 [facility] [id number], [place] [id number] May, Diabetes type 2, uncontrolled E11.65 [facility] [address] [id number] [address] 16 May, 2018 Type 2 diabetes mellitus with diabetic neuropathy E11.40 ; Coronary artery disease involving [place] coronary artery of [place] heart without angina pectoris I25.10 and Major depressive disorder, single episode, mild F32.0 [facility] [id number], [place] [id number] May, [facility] [id number], [place] [id number] May, [facility] [id number] [place] [address] [id number] May, [facility] [id number], [place] [id number] Apr, Other chronic pain G89.29 [facility] [address] [facility] [address] [id number] [id number] Apr, [facility] [id number], [place] [id number] Apr, Essential hypertension I10 [facility] [id number], [place] [id number] Mar, Other chronic pain G89.29 [facility] [id number], [place] [id number] Mar, [facility] [id number] [place] [address] [id number] Feb, Other chronic pain G89.29 [facility] [id number], [place] [id number] Feb, Diabetes type 2, uncontrolled E11.65 ; Type 2 diabetes mellitus with diabetic retinopathy, macular edema presence unspecified, with unspecified retinopathy severity E11.319 and Bilateral low back pain without sciatica M54.5 [facility] [id number] [place] [address] [id number] Feb, [facility] [id number] [place] [address] [id number] Feb, Diabetes type 2, uncontrolled E11.65 [facility] [id number] [place] [address] [id number] Feb, Other chronic pain G89.29 [facility] [id number] [place] [address] [id number] Jan, [facility] [id number] [place] [address] [id number] Jan, [facility] [id number] [place] [address] [id number] Jan, [facility] [id number] [place] [address] [id number] Jan, Other chronic pain G89.29 [facility] [id number] [place] [address] [id number] December, Mixed stress and urge urinary incontinence N39.46 [facility] [id number] [place] [address] [id number] December, Chronic fatigue R53.82 [facility] [id number] [place] [address] [id number] December, Other chronic pain G89.29 [facility] [id number] [place] [address] [id number] December, Diabetes type 2, uncontrolled E11.65 ; [...] G89.29 [facility] [address] [address] December, [place] [id number] [place] [address] [id number] December, Medicare annual wellness visit, subsequent Z00.00 ; Type 2 diabetes mellitus with diabetic polyneuropathy E11.42 ; Chronic obstructive pulmonary disease, unspecified COPD type J44.9 ; Depression F32.9 ; Peripheral vascular disease I73.9 ; Coronary artery disease involving [place] coronary artery of [place] heart without angina pectoris I25.10 ; Hypercholesterolemia E78.0 ; GERD without esophagitis K21.9 and Chronic kidney disease, unspecified N18.9 [place] [id number] [place] [address] [id number] December, Mixed stress and urge urinary incontinence N39.46 ; Full incontinence of feces R15.9 ; Fecal urgency R15.2 ; Functional diarrhea K59.1 and Type 2 diabetes mellitus with diabetic neuropathy E11.40 [place] [id number] [place] [address] [id number] Nov, Other chronic pain G89.29 [place] [id number] [place] [address] [id number] Oct, [place] [id number] [place] [address] [id number] Oct, [place] [id number] [place] [address] [id number] Oct, Other chronic pain G89.29 [place] [id number] [place] [address] [id number] Sep, Other chronic pain G89.29 [address] [place] [address] [id number] Aug, CKD (chronic kidney disease), stage 3 (moderate) N18.3 ; Anemia, unspecified type D64.9 and Dilated pore of Ly L70.8 [place] [id number] [place] [address] [id number] Aug, Other chronic pain G89.29 ; Pain in left shoulder M25.512 ; High risk medication use Z79.899 ; Uses walker Z99.89 ; Diabetes type 2, uncontrolled E11.65 and Depression F32.9 [place] [id number] [place] [address] [id number] Aug, Chronic diarrhea K52.[address] [id number] Aug, Chronic diarrhea K52.9 ; Type 2 diabetes mellitus with diabetic neuropathy E11.40 ; Diabetes type 2, uncontrolled E11.65 ; Insulin long-term use Z79.4 ; Chronic obstructive pulmonary disease, unspecified COPD type J44.9 ; Chronic pain syndrome G89.4 ; Pain in left shoulder M25.512 ; Uses walker Z99.89 ; S/P coronary artery stent placement Z95.5 ; Mixed hyperlipidemia E78.2 and Essential hypertension I10 [place] [id number] [place] [address] [id number] Aug, [address] [id number] Jul, Diabetes type 2, uncontrolled E11.65 [place] [id number] [place] [address] [id number] Jul, Diabetes type 2, uncontrolled E11.65 ; Type 2 diabetes mellitus with diabetic neuropathy E11.40 ; Insulin long-term use Z79.4 and Chronic obstructive pulmonary disease, unspecified COPD type J44.9 [place] [id number] [place] [address] [id number] Jun, [address] [id number] Jun, Essential hypertension I10 [place] [id number] [place] [address] [id number] Jun, Essential hypertension I10 [address] [id number] Jun, Type 2 diabetes mellitus with diabetic neuropathy E11.40 ; Type 2 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 ; S/P coronary artery stent placement Z95.5 ; Obesity (BMI 30.0-34.9) E66.9 ; Mixed hyperlipidemia E78.2 ; Frequent falls R29.6 ; Chronic obstructive pulmonary disease, unspecified COPD type J44.9 ; Essential hypertension I10 ; Insulin long-term use Z79.4 and High risk medication use Z79.899 [address] [place] [address] [id number] May, Diarrhea, unspecified type R19.7 ; Type 2 diabetes mellitus with diabetic neuropathy E11.40 ; Chronic obstructive pulmonary disease, unspecified COPD type J44.9 ; S/P coronary artery stent placement Z95.5 ; High risk medication use Z79.899 ; Essential hypertension I10 ; Encounter for administration of vaccine Z23 and Encounter for immunization Z23 [address] [id number] [id number] May, Chronic obstructive pulmonary disease, unspecified COPD type J44.9 [address] [place] [address] [id number] May, Type 2 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 ; Encounter for immunization Z23 ; Needs flu shot Z23 ; Comprehensive diabetic foot examination, type 2 DM, encounter for E11.9 and Obesity (BMI 30.0-34.9) E66.9 [place] [id number] [place] [address] [id number] May, [place] [id number] [place] [address] [id number] Apr, [place] [id number] [place] [address] [id number] Apr, Essential hypertension I10 and Aphasia R47.01 [place] [id number] [place] [address] [id number] Apr, [place] [id number] [place] [address] [id number] Apr, Type 2 diabetes mellitus with diabetic neuropathy E11.40 ; Frequent falls R29.6 ; Essential hypertension I10 ; S/P coronary artery stent placement Z95.5 ; High risk medication use Z79.899 ; Hyperlipidemia, unspecified hyperlipidemia E78.5 ; CKD (chronic kidney disease), stage 3 (moderate) N18.3 ; Pain in left shoulder M25.512 and Chronic obstructive pulmonary disease, unspecified COPD type J44.9 [facility] [id number] [place] [address] [id number] Mar, [facility] [id number] [place] [address] [id number] Mar, Type 2 diabetes mellitus with diabetic 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 ; Leg wound, left, initial encounter S81.802A ; Hx of shoulder surgery Z98.890 ; Acute pain of left shoulder M25.512 and Fall, initial encounter W19.XXXA [facility] [id number] [place] [address] [id number] Feb, Follow-up exam Z09 ; Hx of shoulder surgery Z98.890 ; Acute pain of left shoulder M25.512 ; Essential hypertension I10 and Leg wound, left, initial encounter S81.802A [facility] [id number] [place] [address] [id number] Feb, [facility] [id number] [place] [address] [id number] Feb, [facility] [id number] [place] [address] [id number] Feb, Chronic obstructive pulmonary disease, unspecified COPD type J44.9 [facility] [address] [id number] [place] [id number] Feb, [facility] [id number] [place] [address] [id number] Jan, Generalized weakness R53.1 ; Exertional shortness of breath R06.02 and Fungal rash of trunk B36.9 [facility] [id number] [place] [address] [id number] Jan, [facility] [id number] [place] [address] [id number] Jan, [facility] [id number] [place] [address] [id number] Jan, [facility] [address] [id number] [place] [address] [id number] Jan, [facility] [id number] [place] [address] [id number] December, High risk medication use Z79.899 [address] [id number] December, Type 2 diabetes mellitus with diabetic neuropathy E11.40 [address] [place] [address] [id number] December, High risk medication use Z79.899 [address] [place] [address] [id number] Nov, Diabetes type 2, uncontrolled E11.65 [place] [id number] [place] [address] [id number] Nov, Medicare annual wellness visit, initial Z00.00 ; Bilateral low back pain without sciatica M54.5 ; Pain in left shoulder M25.512 ; Chronic pain syndrome G89.4 ; Type 2 diabetes mellitus with diabetic polyneuropathy E11.42 ; High risk medication use Z79.899 and Encounter for immunization Z23 [address] [place] [address] [id number] Nov, Type 2 diabetes mellitus with diabetic neuropathy E11.40 ; Coronary artery disease involving [place] coronary artery of [place] heart without angina pectoris I25.10 and CKD (chronic kidney disease), stage 3 (moderate) N18.3 [address] [place] [address] [id number] Oct, Type 2 diabetes mellitus with diabetic polyneuropathy E11.42 ; Chronic pain syndrome G89.4 ; Chronic obstructive pulmonary disease, unspecified COPD type J44.9 ; Chronic kidney disease, unspecified N18.9 and Rash R21 [place] [id number] [facility] [address] [id number] [id number] Oct, Type 2 diabetes mellitus with diabetic neuropathy E11.[id number] [place] [address] [id number] Oct, Rash R21 and Impetigo L01.[address] [place] [address] [id number] Oct, Chronic pain syndrome G89.[id number] [place] [address] [id number] Oct, [place] [id number], [place] [id number] Sep, Sebaceous cyst L72.3 [facility] [id number] [place] [address] [id number] Sep, Sebaceous cyst L72.3 [facility] [id number] [place] [address] [id number] Sep, Chronic pain syndrome G89.4 ; Pain in left shoulder M25.512 and Effusion of olecranon bursa, left M25.422 [facility] [address] [id number] [address] Aug, [facility] [id number] [place] [address] [id number] Aug, [facility] [id number] [place] [address] [id number] Aug, Mixed hyperlipidemia E78.2 and Chronic kidney disease, unspecified N18.9 [facility] [id number] [place] [address] [id number] Jul, Type 2 diabetes mellitus with diabetic neuropathy E11.40 ; Essential hypertension I10 and S/P coronary artery stent placement Z95.5 [facility] [id number] [place] [address] [id number] Jul, 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 [facility] [id number] [place] [address] [id number] Jul, Diabetes type 2, uncontrolled E11.65 ; Essential hypertension I10 and 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 [facility] [id number] [place] [address] [id number] Jul, [facility] [id number] [place] [address] [id number] Jul, [facility] [id number] [place] [address] [id number] Jul, [facility] [id number] [place] [address] [id number] Jul, Chronic obstructive pulmonary disease, unspecified COPD type J44.9 [facility] [address] [place] [address] [id number] Jun, CKD (chronic kidney disease), stage 3 (moderate) N18.3 and Anemia, unspecified type D64.9 [address] [place] [address] [id number] Jun, Type 2 diabetes mellitus with diabetic neuropathy E11.40 ; Decreased GFR R94.4 ; CKD (chronic kidney disease), stage 3 (moderate) N18.3 and Decreased hemoglobin R71.0 [place] [id number] [place] [address] [id number] Jun, CKD (chronic kidney disease), stage 3 (moderate) N18.3 and Anemia, unspecified type D64.9 [place] [id number] [place] [address] [id number] Jun, Type 2 diabetes mellitus with diabetic neuropathy E11.40 ; Decreased GFR R94.4 and CKD (chronic kidney disease), stage 3 (moderate) N18.3 [address] [place] [address] [id number] Jun, Type 2 diabetes mellitus with diabetic neuropathy E11.40 and Essential hypertension I10 [address] [place] [address] [id number] Jun, [place] [id number] [place] [address] [id number] Jun, [place] [id number] [place] [address] [id number] Jun, Type 2 diabetes mellitus with diabetic neuropathy E11.40 ; S/P coronary artery stent placement Z95.5 ; Chronic obstructive pulmonary disease, unspecified COPD type J44.9 ; Essential hypertension I10 ; GERD without esophagitis K21.9 ; Peripheral vascular disease I73.9 ; Mixed hyperlipidemia E78.2 and Hospital discharge follow-up Z09 [address] [place] [address] [id number] 07 Jun, 2016 [place] [id number] [place] [address] [id number] 31 May, 2016 Depression F32.9 and Hyperlipidemia, unspecified hyperlipidemia E78.5 [facility] [address] [id number] [address] May, [address] [place] [address] [id number] May, [place] [id number] [place] [address] [id number] May, Essential hypertension I10 ; Chronic pain syndrome G89.4 ; Pain in left shoulder M25.512 ; High risk medication use Z79.899 ; Chronic obstructive pulmonary disease, unspecified COPD type J44.9 ; S/P coronary artery stent placement Z95.5 ; Personal history of carotid stenosis Z86.79 ; Hyperlipidemia, unspecified hyperlipidemia E78.5 ; Decreased GFR R94.4 and Type 2 diabetes mellitus with diabetic polyneuropathy E11.42 [place] [id number] [place] [address] [id number] May, Hemoglobin decreased R71.0 and Decreased GFR R94.4 [place] [address] [place] [address] [id number] May, Hemoglobin decreased R71.0 and Decreased GFR R94.4 [place] [id number] [place] [address] [id number] May, [place] [id number] [place] [address] [id number] May, [address] [place] [address] [id number] Apr, [place] [id number] [place] [address] [id number] Apr, Type 2 diabetes mellitus with foot [...] unspecified hyperlipidemia E78.5 and Essential hypertension I10 [place] [id number] [place] [address] [id number] Apr, [facility] [address] [id number] [id number] Mar, [facility] [id number], [place] [id number] Mar, [facility] [address]005[address] [address] Mar, [facility] [id number], [place] [id number] Feb, [facility] [id number] [place] [address] [id number] Feb, [facility] [id number] [place] [address] [id number] Feb, [facility] [id number] [place] [address] [id number] Jan, Type 2 diabetes mellitus with diabetic polyneuropathy E11.42 ; Hypercholesterolemia E78.0 ; Chronic pain syndrome G89.4 ; Pain in left shoulder M25.512 and High risk medication use Z79.899 [facility] [id number], [place] [id number] Jan, [facility] [id number] [place] [address] [id number] Jan, [facility] [id number] [place] [address] [id number] December, [facility] [id number], [place] [id number] December, [facility] [address] [address] December, Diabetes type 2, uncontrolled E11.65 ; Type 2 diabetes mellitus with diabetic neuropathy E11.40 ; Peripheral vascular disease I73.9 ; 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 and 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 [facility] [id number], [place] [id number] Nov, [facility] [id number], [place] [id number] Nov, [facility] [address] [id number], [place] [id number] Nov, [facility] [place] [address] [id number], [place] [id number] Nov, Right hip pain M25.551 [facility] [address] [facility] [id number], [place] [address] Nov, [facility] [id number] [place] [address] Nov, [facility] [place] [address] [id number], [place] [id number] Nov, Diabetes with neurological manifestations, type II or unspecified type, not stated as uncontrolled 250.60 [facility] [id number] [place] [address] [id number] Nov, [facility] [address] [id number], [place] [id number] Nov, [facility] [id number] [place] [address] [id number] Oct, Diabetes type 2, uncontrolled E11.65 ; Type 2 diabetes mellitus with diabetic neuropathy, unspecified E11.40 and Low back pain M54.5 [facility] [address] [id number], [place] [id number] Oct, [facility] [address] [id number], [place] [id number] Oct, [facility] [address] [id number], [place] [id number] Oct, [facility] [address] [id number], [place] [id number] Sep, [facility] [address] [id number], [place] [id number] Sep, [facility] [address]65100[place], [place] [address] Sep, [facility] [address] [id number], [place] [id number] Sep, [facility] [facility] [id number], [place] [id number] Sep, [facility] [id number], [place] [id number] Aug, 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 [facility] [id number] [place] [address] [id number] Aug, [facility] [id number] [place] [address] [id number] Aug, Allergic rhinitis due to pollen J30.1 [address] [place] [address] [id number] Jul, [facility] [id number] [place] [address] [id number] Jul, [address] [place] [address] [id number] Jul, [facility] [id number] [place] [address] [id number] Jun, [id number] [place] [address] [id number] Jun, Thumb tendonitis M77.8 and Ringing in ear, bilateral H93.[address] [id number], [place] [id number] Jun, [id number] [place] [address] [id number] May, [place] [id number] [place] [address] May, [facility] [id number] [place] [address] May, Pre-op evaluation Z01.818 ; Encounter for immunization Z23 ; Type 2 diabetes mellitus with diabetic peripheral angiopathy without gangrene E11.51 ; Insulin long-term use Z79.4 ; Type 2 diabetes mellitus with foot ulcer E11.621 ; Peripheral vascular disease I73.9 ; Coronary artery disease involving [place] coronary artery of [place]on heart without angina pectoris I25.10 ; S/P coronary artery stent placement Z95.5 ; Osteomyelitis of right foot, unspecified chronicity M86.9 and Chronic obstructive pulmonary disease, unspecified COPD type J44.9 [facility] [address] [place] [address] May, [facility] [id number] [place] [address] [id number] May, [facility] [id number] [place] [address] [id number] May, Diabetes type 2, uncontrolled E11.65 ; Encounter for immunization Z23 ; Osteopenia M85.80 and Allergic rhinitis due to pollen J30.1 [facility] [place] [id number] [place] [address] [id number] May, Lumbago 724.2 [facility] [address] [id number] Apr, [facility] [id number] [place] [address] [id number] Apr, [facility] [id number] [place] [address] [id number] Apr, [facility] [id number] [place] [address] [id number] Apr, [facility] [id number] [place] [address] Mar, [facility] [id number] [place] [address] [id number] Mar, [facility] [place] [id number] [place] [address] [id number] Mar, [facility] [id number] [place] [address] [id number] Mar, [facility] [place] [id number] [place] [address] [id number] Mar, [facility] [id number] [place] [address] Mar, [facility] [place] [id number] [place] [address] [id number] Mar, [facility] [id number] [place] [address] [id number] Mar, Diabetes with neurological manifestations, type II or unspecified type, not stated as uncontrolled 250.60 and Severe obesity (BMI 35.0-35.9 with comorbidity) 278.01 [facility] [id number] [place] [address] [id number] Mar, [facility] [id number] [place] [address] Mar, [facility] [id number] [place] [address] Feb, [facility] [id number], [place] [id number] Feb, [facility] [id number] [place] [address] [id number] Feb, [facility] [id number] [place] [address] [id number] Feb, Diabetes with neurological manifestations, type II or unspecified type, not stated as uncontrolled 250.60 [facility] [id number], [place] [id number] Feb, [facility] [address] [place] [address] Feb, [facility] [id number], [place] [id number] Feb, [facility] [id number], [place] [id number] Feb, Follow up V67.9 ; Diabetes with neurological manifestations, type II or unspecified type, not stated as uncontrolled 250.60 and Congestive heart failure 428.0 [facility] [place] [id number], [place] [id number] Jan, [facility] [id number], [place] [id number] Jan, [facility] [id number], [place] [id number] Jan, [facility] [id number], [place] [id number] December, Otitis media with effusion 381.4 ; Left arm numbness 782.0 and Osteoporosis 733.00 [facility] [place] [id number], [place] [id number] December, [facility] [address] [id number], [place] [id number] Nov, [facility] [id number], [place] [id number] Nov, Serous otitis media 381.4 and Lumbago 724.2 [facility] [place] [facility] [id number] [place] [address] Nov, [facility] [place] [facility] [address]100[place], [place] [address] Nov, [facility] [id number], [place] [id number] Oct, [facility] [address]005[address]100[place], [place] [address] Oct, [facility] [id number], [place] [id number] Oct, [facility] [address]005[address]100[place], [place] [address] Oct, [facility] [id number], [place] [id number] Oct, [facility] [place] [facility] [address]00565100[place], [place] [address] Oct, [facility] [place] [address]005[address]100[place], [place] [address] Sep, [facility] [place] [facility] [address]005[address]100[place], [place] [address] Sep, [facility] [address] [id number], [place] [id number] Sep, [facility] [place] [facility] [address], [place] [address] Sep, [facility] [address] [id number], [place] [id number] Aug, [facility] [place] [facility] [address]00565100[place], [place] [address] Aug, [facility] [address] [id number] [place] [id number] Aug, [facility] [place] [facility] [address] [facility] [id number], [place] [address] Aug, [facility] [address] [facility] [id number] [place] [id number] Jul, [facility] [place] [facility] [address] [facility] [id number], [place] [address] Jul, [facility] [address] [id number] [place] [id number] Jul, [facility] [place] [facility] [address] [facility] [id number], [place] [address] Jul, [facility] [address] [facility] [id number] [place] [id number] Jul, [facility] [place] [facility] [address] [facility] [id number], [place] [address] Jul, [facility] [address] [facility] [id number], [place] [id number] Jun, [facility] [place] [facility] [address] [facility] [id number], [place] [address] Jun, [facility] [address] [facility] [id number], [place] [id number] May, [facility] [place] [facility] [address] [facility] [id number], [place] [address] May, [facility] [address] [id number], [place] [id number] May, [facility] [place] [facility] [address] [facility] [id number], [place] [address] May, [facility] [address] [facility] [id number], [place] [id number] May, [facility] [place] [facility] [address] [facility] [id number], [place] [address] May, [facility] [address] [id number] [place] [id number] May, [facility] [address] [id number] [place] [id number] May, [facility] [place] [facility] [address] [facility] [id number] [place] [address] May, [facility] [place] [facility] [address] [facility] [id number], [place] [address] May, [facility] [address] [id number], [place] [id number] May, [facility] [place] [facility] [address] [facility] [id number] [place] [address] May, [facility] [place] [facility] [address] [facility] [id number], [place] [address] Apr, [facility] [address] [facility] [id number], [place] [id number] Apr, [facility] [place] [facility] [address] [facility] [id number], [place] [address] Apr, [facility] [address] [id number] [place] [id number] Apr, [facility] [address] [facility] [id number], [place] [id number] Apr, [facility] [place] [facility] [address] [facility] [id number], [place] [address] Apr, [facility] [place] [facility] [address] [facility] [id number], [place] [address] Apr, [facility] [address] [id number], [place] [id number] Apr, [facility] [place] [facility] [address] [facility] [id number], [place] [address] Apr, [facility] [address] [facility] [id number], [place] [id number] Apr, [facility] [place] [facility] [address] [facility] [id number], [place] [address] Apr, [facility] [address] [id number] [place] [id number] Apr, [facility] [place] [facility] [address] [id number], [place] [address] Apr, [facility] [address] [id number] [place] [id number] Apr, [facility] [place] [facility] [address] [facility] [id number], [place] [address] Apr, [facility] [address] [id number] [place] [id number] Apr, [facility] [place] [facility] [address] [facility] [id number], [place] [address] Apr, [facility] [address] [id number], [place] [id number] Apr, [facility] [place] [facility] [address]005[address], [place] [address] Apr, [facility] [address] [facility] [id number], [place] [id number] Mar, [facility] [place] [facility] [address]00565100[place], [place] [address] Mar, [facility] [address] [id number], [place] [id number] Mar, [facility] [address] [facility] [id number], [place] [id number] Mar, [facility] [place] [facility] [address], [place] [address] Mar, [facility] [place] [facility] [address] [facility] [id number], [place] [address] Mar, [facility] [address] [id number], [place] [id number] Mar, [facility] [place] [facility] [address] [facility] [id number], [place] [address] Mar, [facility] [address] [id number], [place] [id number] Mar, [facility] [place] [facility] [address] [id number] [place] [address] Mar, [facility] [address] [id number] [place] [id number] Mar, [facility] [place] [facility] [address] [facility] [id number] [place] [address] Mar, [facility] [address] [id number] [place] [id number] Mar, [facility] [place] [facility] [address] [facility] [id number] [place] [address] Mar, [facility] [address] [id number] [place] [id number] Mar, [facility] [place] [facility] [address] [facility] [id number] [place] [address] Mar, [facility] [address] [facility] [id number] [place] [id number] Mar, [facility] [place] [facility] [address] [facility] [id number] [place] [address] Mar, [facility] [address] [id number] [place] [id number] Mar, [facility] [place] [facility] [address] [facility] [id number], [place] [address] Mar, [facility] [address] [facility] [id number] [place] [id number] Feb, [facility] [place] [facility] [address] [facility] [id number], [place] [address] Feb, [facility] [address] [id number] [place] [id number] Feb, [facility] [place] [facility] [address] [facility] [id number] [place] [address] Feb, [facility] [address] [id number] [place] [id number] Feb, [facility] [place] [facility] [address] [facility] [id number] [place] [address] Feb, [facility] [address] [id number] [place] [id number] Feb, [facility] [place] [facility] [address] [id number] [place] [address] Feb, [facility] [address] [id number] [place] [id number] Feb, [facility] [place] [facility] [address] [id number] [place] [address] Feb, [facility] [address] [id number] [place] [id number] Feb, [facility] [place] [facility] [address] [id number] [place] [address] Feb, [facility] [address] [id number] [place] [id number] Feb, [facility] [place] [facility] [address] [facility] [id number] [place] [address] Feb, [facility] [address] [id number] [place] [id number] Feb, [facility] [place] [facility] [address] [facility] [id number] [place] [address] Feb, [facility] [address] [id number] [place] [id number] Feb, [facility] [place] [facility] [address] [id number] [place] [address] Feb, [facility] [address] [id number] [place] [id number] Feb, [facility] [address] [id number] [place] [id number] Feb, [facility] [place] [facility] [address] [facility] [id number] [place] [address] Feb, [facility] [place] [facility] [address] [facility] [id number] [place] [address] Feb, [facility] [address] [id number] [place] [id number] Feb, [facility] [place] [facility] [address] [id number], [place] [address] Feb, [facility] [address] [id number] [place] [id number] Feb, [facility] [place] [facility] [address] [facility] [id number] [place] [address] Feb, [facility] [address] [id number] [place] [id number] Feb, [facility] [place] [facility] [address] [id number] [place] [address] Feb, [facility] [address] [id number] [place] 018734405 Jan, [facility] [place] [facility] [address] [facility] [id number] [place] [address] Jan, [facility] [place] [facility] [address] [facility] [id number], [place] [address] Jan, [facility] [place] [facility] [address] [facility] [id number], [place] [address] Jan, [facility] [place] [facility] [address] [facility] [id number] [place] [address] Jan, [facility] [place] [facility] [address] [facility] [id number] [place] [address] Jan, [facility] [address] [id number], [place] [id number] Jan, [facility] [place] [facility] [address] [facility] [id number], [place] [address] Jan, [facility] [place] [facility] [address] [facility] [id number], [place] [address] Jan, [facility] [place] [facility] [address] [facility] [id number], [place] [address] Jan, [facility] [address] [id number], [place] 840962665 Jan, [facility] [address] [id number], [place] [id number] Jan, [facility] [place] [facility] [address] [id number] [place] [address] Jan, [facility] [place] [facility] [address] [facility] [id number] [place] [address] Jan, [facility] [address] [id number] [place] [id number] Jan, [facility] [address] [id number], [place] [id number] Jan, [facility] [place] [facility] [address] [id number] [place] [address] Jan, [facility] [place] [facility] [address] [facility] [id number] [place] [address] Jan, [facility] [place] [facility] [address] [facility] [id number] [place] [address] Jan, [facility] [address] [facility] [id number], [place] [id number] December, [facility] [place] [facility] [address] [facility] [id number] [place] [address] December, [facility] [place] [facility] [address] [facility] [id number] [place] [address] December, [facility] [address] [facility] [id number], [place] [id number] December, [facility] [place] [facility] [address] [facility] [id number], [place] [address] December, [facility] [address] [facility] [id number], [place] [id number] December, [facility] [place] [facility] [address] [id number] [place] [address] December, [facility] [address] [facility] [id number], [place] [id number] December, [facility] [place] [facility] [address] [facility] [id number], [place] [address] December, [facility] [address] [id number] [place] [id number] Nov, [facility] [place] [facility] [address] [facility] [id number] [place] [address] Nov, [facility] [address] [facility] [id number][place] [id number] Nov, [facility] [place] [facility] [address] [facility] [id number], [place] [address] Nov, [facility] [place] [facility] [address] [facility] [id number], [place] [address] Nov, [facility] [place] [facility] [address] [facility] [id number], [place] [address] Nov, [facility] [place] [facility] [address] [facility] [id number], [place] [address] Oct, [facility] [address] [facility] [id number][place] [id number] Oct, [facility] [place] [facility] [address] [id number], [place] [address] Oct, [facility] [address] [facility] [id number][place] [id number] Oct, [facility] [place] [facility] [address] [id number], [place] [address] Oct, [facility] [address] [facility] [id number][place] [id number] Sep, [facility] [place] [facility] [address] [facility] [id number], [place] [address] Sep, [facility] [address] [facility] [id number] [place] [id number] Aug, [facility] [place] [facility] [address] [facility] [id number], [place] [address] Aug, [facility] [address] [facility] [id number][place] [id number] Aug, [facility] [place] [facility] [address] [facility] [id number], [place] [address] Aug, [facility] [place] [facility] [address] [facility] [id number] [place] [address] Aug, [facility] [address] [id number] [place] [id number] Aug, [facility] [place] [facility] [address] [facility] [id number], [place] [address] Aug, [facility] [place] [facility] [address] [facility] [id number] [place] [address] Aug, [facility] [address] [id number] [place] [id number] Aug, [facility] [place] [facility] [address] [facility] [id number] [place] [address] Aug, [facility] [address] [facility] [id number][place] [id number] Jul, [facility] [address] [id number], [place] [address] Jul, [facility] [address] [id number][place] [id number] Jul, [facility] [place] [facility] [address] [facility] [id number], [place] [address] Jul, [facility] [address] [facility] [id number][place] [id number] Jul, [facility] [place] [facility] [address] [facility] [id number], [place] [address] Jul, [facility] [address] [facility] [id number], [place] [id number] Jul, [facility] [place] [facility] [address] [facility] [id number], [place] [address] Jul, [facility] [address] [id number][place] [id number] Jun, [facility] [place] [facility] [address] [facility] [id number], [place] [address] Jun, [facility] [address] [id number][place] [id number] Jun, [facility] [address] [facility] [id number] [place] [address] Jun, [facility] [address] [facility] [id number], [place] [address] Jun, [facility] [address] [facility] [id number], [place] [address] Jun, [facility] [address] [id number] [place] [id number] Apr, [facility] [address] [id number] [place] [id number] Mar, [facility] [address] [id number] [place] [id number] Mar, [facility] [address] [id number] [place] [id number] Feb, [facility] [address] [id number] [place] [id number] Feb, [facility] [address] [id number] [place] [id number] Feb, [facility] [address] [id number] [place] [id number] December, [facility] [address] [id number] [place] [id number] December, [facility] [address] [facility] [id number], [place] [address] December, [facility] [address] [id number] [place] [id number] December, [facility] [address] [id number] [place] [address] December, [facility] [address] [id number] [place] [id number] Nov, [facility] [address] [id number] [place] [id number] Nov, [facility] [address] [id number] [place] [id number] Nov, [facility] [address] [id number] [place] [id number] Oct, [facility] [address] [id number] [place] [id number] Sep, [facility] [address] [id number] [place] [id number] Aug, [facility] [address] [facility] [id number], [place] [address] Aug, [facility] [address] [id number] [place] [id number] Aug, [facility] [address] [id number] [place] [id number] Jul, [facility] [address] [facility] [id number], [place] [address] Jul, [facility] [address] [id number][place] [id number] Jul, [facility] [address], [place] [address] Jul, [facility] [address] [id number][place] [id number] Jun, [facility] [address] [address] Jun, [facility] [address] [id number][place] [id number] May, [facility] [address], [place] [address] May, [facility] [address] [id number][place] [id number] May, [facility] [address] [facility] [id number], [place] [address] May, [facility] [address] [id number][place] [id number] Apr, [facility] [address] [id number], [place] [id number] Apr, [facility] [address] [id number][place] [id number] Mar, [facility] [address] [id number] [place] [id number] Mar, [facility] [address] [id number] [place] [id number] Feb, [facility] [address] [id number] [place] [id number] Feb, [facility] [address] [id number] [place] [id number] Jan, [facility] [address] [id number] [place] [id number] Jan, [facility] [address] [id number] [place] [id number] Jan, [facility] [address] [id number] [place] [id number] Jan, [facility] [address] [id number] [place] [id number] December, [facility] [address] [id number] [place] [id number] December, [facility] [address] [facility] [id number], [place] [address] Nov, [facility] [address] [id number] [place] [id number] Nov, [facility] [address] [id number] [place] [id number] Nov, [facility] [address] [id number] [place] [id number] Nov, [facility] [address] [id number] [place] [id number] Nov, [facility] [address] [facility] [id number], [place] [address] Oct, [facility] [address] [facility] [id number], [place] [address] Oct, [facility] [address] [id number] [place] [id number] Oct, [facility] [address] [id number] [place] [id number] Oct, [facility] [place] [address] [id number] [place] [id number] Oct, [facility] [place] [address] [id number] [place] [id number] Oct, [facility] [place] [address] [id number] [place] [address] Oct, [facility] [address] [id number] [place] [id number] Oct, [facility] [address] [id number] [place] [id number] Oct, [facility] [address] [facility] [id number] [place] [address] Oct, [facility] [address] [id number] [place] [id number] Sep, [facility] [address] [id number] [place] [id number] Sep, [facility] [address] [id number] [place] [id number] Aug, [facility] [address] [id number] [place] [id number] Aug, [facility] [id number] [place] [address] Jul, [facility] [address], [place] [address] Jul, [facility] [address] [id number], [place] [address] Jul, [facility] [address] [facility] [id number], [place] [address] Jul, [facility] [address] [facility] [id number] [place] [address] Jul, [facility] [address] [facility] [id number], [place] [address] Jul, [facility] [id number] [place] [address] Jul, [facility] [address] [facility] [id number], [place] [address] Jul, [facility] [address] [id number], [place] [address] Jul, [facility] [address] [id number], [place] [address] Jul, [facility] [id number], [place] [address] Jul, [facility] [id number], [place] [address] Jul, [facility] [address], [place] [address] Jul, [facility] [address] [id number], [place] [address] Jul, IMMUNIZATIONS No Known Immunizations SOCIAL HISTORY Never Assessed REASON FOR VISIT [facility] PLAN OF CARE VITAL SIGNS MEDICATIONS Unknown Medications RESULTS No Results PROCEDURES No Known procedures INSTRUCTIONS MEDICATIONS ADMINISTERED No Known Medications MEDICAL (GENERAL) HISTORY Type Description Date Medical History peripheral vascular disease s/p angioplasty w/ stent R leg Medical History hypertension Medical 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 Secondary to ATN from [facility] 4.3 Medical History HX of [...]
--- OUTSIDE RECORDS SUMMARY | 2019-04-03 06:36 | XMS REPORT ---
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 Active 331585126 Problem 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 Active 933131765 Problem Type 2 diabetes mellitus with diabetic polyneuropathy E11.42 Active 487296345 Problem Hypercholesterolemia E78.0 Active 03115733 Problem Fatigue, unspecified type R53.83 Active 64249594 Problem Personal history of carotid stenosis Z86.79 Active 183417482 Problem Uses walker Z99.89 Active 561674848 Problem Chronic obstructive pulmonary disease, unspecified COPD type J44.9 Active 64261305 Problem Aphasia R47.01 Active 40807378 Problem Peripheral vascular disease I73.9 Active 578249502 Problem Type 2 diabetes mellitus with diabetic neuropathy E11.40 Active 03146063 Problem S/P coronary artery stent placement Z95.5 Active 606883812 Problem CKD (chronic kidney disease), stage 3 (moderate) N18.3 Active 672709200 Problem Essential hypertension I10 Active 64865809 Problem GERD without esophagitis K21.9 Active 486838594 Problem Type 2 diabetes mellitus with diabetic peripheral angiopathy without gangrene E11.51 Active 756211489 Problem CKD (chronic kidney disease) stage 3, GFR 30-59 ml/min N18.3 Active 545408714 Problem Type 2 diabetes mellitus with foot ulcer E11.621 Active 260468407 Problem Chronic kidney disease, unspecified N18.9 Active 390056676 Problem Depression F32.9 Active 21976464 Problem Mixed hyperlipidemia E78.2 Active 146738532 Problem Insulin long-term use Z79.4 Active 578127755 Problem Obesity (BMI 30.0-34.9) E66.9 Active 630636846086596 Problem Coronary artery disease involving [place] coronary artery of [place] heart without angina pectoris I25.10 Active 0176302225986 Problem Frequent falls R29.6 Active 170825734 Problem Hyperlipidemia, unspecified hyperlipidemia E78.5 Active 95121736 Problem Chronic diarrhea K52.9 Active 003322463 Problem Other chronic pain G89.29 Active 24036978 Problem Full incontinence of feces R15.9 Active 254914981125523 Problem Major depressive disorder, single episode, mild F32.0 Active 63355969 Problem Chronic pain syndrome G89.4 Active 980331269 Problem Ulcer of left foot, unspecified ulcer stage L97.529 Active 74912908 Problem High risk medication use Z79.899 Active 985957952 Problem Osteomyelitis of right foot, unspecified chronicity M86.9 Active 07503342 Problem Pain in left shoulder M25.512 Active 61570822 Problem Diabetes type 2, uncontrolled E11.65 Active 306233601 Problem Fecal urgency R15.2 Active 10128124 Problem Functional diarrhea K59.1 Active 56141336 Problem Type 2 diabetes mellitus with diabetic retinopathy, macular edema presence unspecified, with unspecified retinopathy severity E11.319 Active 55902112 Problem Mixed stress and urge urinary incontinence N39.46 Active 348396284 Problem Chronic fatigue R53.82 Active 51514243 ALLERGIES No Information ENCOUNTERS Encounter Location Date Diagnosis [facility] [address] [address] 14 Dec, 2018 [place] [id number] [place] [address] [id number] Nov, [place] [id number] [place] [address] [id number] Oct, Bilateral low back pain without sciatica M54.5 [place] [id number] [place] [address] [id number] Oct, [facility] [address] [address] Oct, [address] [id number] [place] [address] [id number] Sep, Other chronic pain G89.29 and Diabetes type 2, uncontrolled E11.[address] [id number] Sep, Type 2 diabetes mellitus with diabetic neuropathy E11.40 ; Atherosclerosis of [place] artery of both lower extremities, with unspecified presence of clinical manifestation I70.203 and Ulcer of left foot, unspecified ulcer stage L97.529 [facility] [id number] [place] [address] [id number] Sep, Bilateral low back pain without sciatica M54.5 [facility] [id number] [place] [address] [id number] Aug, Bilateral low back pain without sciatica M54.5 [facility] [id number] [place] [address] [id number] Aug, [facility] [place] [address] [place] [address] [id number] Aug, Essential hypertension I10 [facility] [id number] [place] [address] [id number] Aug, [facility] [id number] [place] [address] [id number] Jul, [facility] [address] [id number] [place] [address] [id number] Jul, Bilateral low back pain without sciatica M54.5 [facility] [id number] [place] [address] [id number] Jul, Hyperlipidemia, unspecified hyperlipidemia E78.5 [facility] [address] [id number] [place] [address] [id number] Jul, [facility] [address] [id number] [place] [address] [id number] Jul, Type 2 diabetes mellitus with diabetic neuropathy E11.40 [facility] [id number] [place] [address] [id number] Jun, [facility] [id number] [place] [address] [id number] Jun, Bilateral low back pain without sciatica M54.5 [facility] [address] [id number] [place] [address] [id number] Jun, Chronic fatigue R53.82 [facility] [place] [id number] [place] [address] [id number] Jun, Type 2 diabetes mellitus with diabetic polyneuropathy E11.42 and Bilateral low back pain without sciatica M54.5 [facility] [id number] [place] [address] [id number] May, Other chronic pain G89.29 [facility] [id number] [place] [id number] May, Diabetes type 2, uncontrolled E11.65 [facility] [id number] [address] 16 May, 2018 Type 2 diabetes mellitus with diabetic neuropathy E11.40 ; Coronary artery disease involving [place] coronary artery of [place] heart without angina pectoris I25.10 and Major depressive disorder, single episode, mild F32.0 [facility] [id number] [place] [id number] May, [facility] [id number] [place] [id number] May, [facility] [id number] [place] [address] [id number] May, [facility] [id number] [place] [address] [id number] Apr, Other chronic pain G89.29 [place] [address] [facility] [id number] [place] [phone] Apr, [facility] [id number] [place] [id number] Apr, Essential hypertension I10 [facility] [id number] [place] [id number] Mar, Other chronic pain G89.29 [facility] [address] [facility] [id number] [place] [id number] Mar, [facility] [id number] [place] [address] [id number] Feb, Other chronic pain G89.29 [facility] [id number] [place] [id number] Feb, Diabetes type 2, uncontrolled E11.65 ; Type 2 diabetes mellitus with diabetic retinopathy, macular edema presence unspecified, with unspecified retinopathy severity E11.319 and Bilateral low back pain without sciatica M54.5 [facility] [id number] [place] [address] [id number] Feb, [facility] [address] [id number] [place] [address] [id number] Feb, Diabetes type 2, uncontrolled E11.65 [facility] [address] [place] [id number] [place] [address] [id number] Feb, Other chronic pain G89.29 [facility] [id number] [place] [address] [id number] Jan, [facility] [address] [id number] [place] [phone] Jan, [facility] [id number] [place] [address] [id number] Jan, [facility] [id number] [place] [address] [id number] Jan, Other chronic pain G89.29 [facility] [id number] [place] [address] [id number] December, Mixed stress and urge urinary incontinence N39.46 [facility] [id number] [place] [address] [id number] December, Chronic fatigue R53.82 [facility] [id number] [place] [address] [id number] December, Other chronic pain G89.29 [facility] [id number] [place] [address] [id number] December, Diabetes type 2, uncontrolled E11.65 ; [...] type J44.9 and Other chronic pain G89.29 [facility] [address] [address] December, [place] [id number] [place] [address] [id number] December, Medicare annual wellness visit, subsequent Z00.00 ; Type 2 diabetes 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 ; Chronic obstructive pulmonary disease, unspecified COPD type J44.9 ; Depression F32.9 ; Peripheral vascular disease I73.9 ; Coronary artery disease involving [place] coronary artery of [place] heart without angina pectoris I25.10 ; Hypercholesterolemia E78.0 ; GERD without esophagitis K21.9 and Chronic kidney disease, unspecified N18.9 [place] [id number] [place] [address] [id number] December, Mixed stress and urge urinary incontinence N39.46 ; Full incontinence of feces R15.9 ; Fecal urgency R15.2 ; Functional diarrhea K59.1 and Type 2 diabetes mellitus with diabetic neuropathy E11.40 [place] [id number] [place] [address] [id number] Nov, Other chronic pain G89.29 [place] [id number] [place] [address] [id number] Oct, [place] [id number] [place] [address] [id number] Oct, [place] [id number] [place] [address] [id number] Oct, Other chronic pain G89.29 [place] [id number] [place] [address] [id number] Sep, Other chronic pain G89.29 [id number] [place] [address] [id number] Aug, CKD (chronic kidney disease), stage 3 (moderate) N18.3 ; Anemia, unspecified type D64.9 and Dilated pore of Ly L70.8 [address] [place] [address] [id number] Aug, Other chronic pain G89.29 ; Pain in left shoulder M25.512 ; High risk medication use Z79.899 ; Uses walker Z99.89 ; Diabetes type 2, uncontrolled E11.65 and Depression F32.9 [place] [id number] [place] [address] [id number] Aug, Chronic diarrhea K52.9 [place] [id number] [place] [address] [id number] Aug, Chronic diarrhea K52.9 ; Type 2 [...] E78.2 and Essential hypertension I10 [place] [id number] [place] [address] [id number] Aug, [address] [id number] Jul, Diabetes type 2, uncontrolled E11.65 [place] [id number] [place] [address] [id number] Jul, Diabetes type 2, uncontrolled E11.65 ; Type 2 diabetes mellitus with diabetic neuropathy E11.40 ; Insulin long-term use Z79.4 and Chronic obstructive pulmonary disease, unspecified COPD type J44.9 [id number] [place] [address] [id number] Jun, [place] [id number] [place] [address] [id number] Jun, Essential hypertension I10 [place] [id number] [place] [address] [id number] Jun, Essential hypertension I10 [place] [id number] [place] [address] [id number] Jun, Type 2 diabetes mellitus with diabetic neuropathy E11.40 ; Type 2 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 ; S/P coronary artery stent placement Z95.5 ; Obesity (BMI 30.0-34.9) E66.9 ; Mixed hyperlipidemia E78.2 ; Frequent falls R29.6 ; Chronic obstructive pulmonary disease, unspecified COPD type J44.9 ; Essential hypertension I10 ; Insulin long-term use Z79.4 and High risk medication use Z79.899 [address] [place] [address] [id number] May, Diarrhea, unspecified type R19.7 ; Type 2 diabetes mellitus with diabetic neuropathy E11.40 ; Chronic obstructive pulmonary disease, unspecified COPD type J44.9 ; S/P coronary artery stent placement Z95.5 ; High risk medication use Z79.899 ; Essential hypertension I10 ; Encounter for administration of vaccine Z23 and Encounter for immunization Z23 [address] [id number] [id number] May, Chronic obstructive pulmonary disease, unspecified COPD type J44.9 [id number] [place] [address] [id number] May, Type 2 diabetes mellitus with diabetic 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 ; Encounter for immunization Z23 ; Needs flu shot Z23 ; Comprehensive diabetic foot examination, type 2 DM, encounter for E11.9 and Obesity (BMI 30.0-34.9) E66.9 [place] [id number] [place] [address] [id number] May, [place] [id number] [place] [address] [id number] Apr, [place] [id number] [place] [address] [id number] Apr, Essential hypertension I10 and Aphasia R47.01 [place] [id number] [place] [address] [id number] Apr, [place] [id number] [place] [address] [id number] Apr, Type 2 diabetes mellitus with diabetic neuropathy E11.40 ; Frequent falls R29.6 ; Essential hypertension I10 ; S/P coronary artery stent placement Z95.5 ; High risk medication use Z79.899 ; Hyperlipidemia, unspecified hyperlipidemia E78.5 ; CKD (chronic kidney disease), stage 3 (moderate) N18.3 ; Pain in left shoulder M25.512 and Chronic obstructive pulmonary disease, unspecified COPD type J44.9 [place] [id number] [place] [address] [id number] Mar, [facility] [place] [id number] [place] [address] [id number] Mar, Type 2 diabetes mellitus with diabetic polyneuropathy E11.42 ; Leg wound, left, initial encounter S81.802A ; Hx of shoulder surgery Z98.890 ; Acute pain of left shoulder M25.512 and Fall, initial encounter W19.XXXA [facility] [id number] [place] [address] [id number] Feb, Follow-up exam Z09 ; Hx of shoulder surgery Z98.890 ; Acute pain of left shoulder M25.512 ; Essential hypertension I10 and Leg wound, left, initial encounter S81.802A [facility] [id number] [place] [address] [id number] Feb, [facility] [place] [id number] [place] [address] [id number] Feb, [facility] [id number] [place] [address] [id number] Feb, Chronic obstructive pulmonary disease, unspecified COPD type J44.9 [facility] [id number] [place] [address] [id number] Feb, [facility] [id number] [place] [address] [id number] Jan, Generalized weakness R53.1 ; Exertional shortness of breath R06.02 and Fungal rash of trunk B36.9 [facility] [id number] [place] [address] [id number] Jan, [facility] [id number] [place] [address] [id number] Jan, [facility] [id number] [place] [address] [id number] Jan, [facility] [id number] [place] [address] [id number] Jan, [facility] [id number] [place] [address] [id number] December, High risk medication use Z79.[address] [id number] [place] [id number] December, Type 2 diabetes mellitus with diabetic neuropathy E11.40 [address] [place] [address] [id number] December, High risk medication use Z79.[address] [id number] [place] [id number] Nov, Diabetes type 2, uncontrolled E11.65 [place] [id number] [place] [address] [id number] Nov, Medicare annual wellness visit, initial Z00.00 ; Bilateral low back pain without sciatica M54.5 ; Pain in left shoulder M25.512 ; Chronic pain syndrome G89.4 ; Type 2 diabetes mellitus with diabetic polyneuropathy E11.42 ; High risk medication use Z79.899 and Encounter for immunization Z23 [address] [place] [address] [id number] Nov, Type 2 diabetes mellitus with diabetic neuropathy E11.40 ; Coronary artery disease involving [place] coronary artery of [place] heart without angina pectoris I25.10 and CKD (chronic kidney disease), stage 3 (moderate) N18.3 [address] [place] [address] [id number] Oct, Type 2 diabetes mellitus with diabetic polyneuropathy E11.42 ; Chronic pain syndrome G89.4 ; Chronic obstructive pulmonary disease, unspecified COPD type J44.9 ; Chronic kidney disease, unspecified N18.9 and Rash R21 [place] [address] [facility] [id number] [id number] Oct, Type 2 diabetes mellitus with diabetic neuropathy E11.[address] [id number] [place] [id number] Oct, Rash R21 and Impetigo L01.00 [address]100[place] [id number] Oct, Chronic pain syndrome G89.[address] [id number] [place] [id number] Oct, [place] [id number] [id number] Sep, Sebaceous cyst L72.3 [facility] [id number] [place] [address] [id number] Sep, Sebaceous cyst L72.3 [facility] [id number] [place] [address] [id number] Sep, Chronic pain syndrome G89.4 ; Pain in left shoulder M25.512 and Effusion of olecranon bursa, left M25.422 [facility] [address] [id number] [address] Aug, [facility] [id number] [place] [address] [id number] Aug, [facility] [id number] [place] [address] [id number] Aug, Mixed hyperlipidemia E78.2 and Chronic kidney disease, unspecified N18.9 [facility] [id number] [place] [address] [id number] Jul, Type 2 diabetes mellitus with diabetic neuropathy E11.40 ; Essential hypertension I10 and S/P coronary artery stent placement Z95.5 [place] [id number] [place] [address] [id number] Jul, 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 [facility] [id number] [place] [address] [id number] Jul, Diabetes type 2, uncontrolled E11.65 ; Essential hypertension I10 and 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 [facility] [id number] [place] [address] [id number] Jul, [facility] [id number] [place] [address] [id number] Jul, [facility] [id number] [place] [address] [id number] Jul, [facility] [id number] [place] [address] [id number] Jul, Chronic obstructive pulmonary disease, unspecified COPD type J44.9 [facility] [address] [place] [id number] [place] [address] [id number] Jun, CKD (chronic kidney disease), stage 3 (moderate) N18.3 and Anemia, unspecified type D64.9 [place] [id number] [place] [address] [id number] Jun, Type 2 diabetes mellitus with diabetic neuropathy E11.40 ; Decreased GFR R94.4 ; CKD (chronic kidney disease), stage 3 (moderate) N18.3 and Decreased hemoglobin R71.0 [place] [id number] [place] [address] [id number] Jun, CKD (chronic kidney disease), stage 3 (moderate) N18.3 and Anemia, unspecified type D64.9 [place] [id number] [place] [address] [id number] Jun, Type 2 diabetes mellitus with diabetic neuropathy E11.40 ; Decreased GFR R94.4 and CKD (chronic kidney disease), stage 3 (moderate) N18.3 [place] [id number] [place] [address] [id number] Jun, Type 2 diabetes mellitus with diabetic neuropathy E11.40 and Essential hypertension I10 [place] [id number] [place] [address] [id number] Jun, [address] [id number] Jun, [place] [id number] [place] [address] [id number] Jun, Type 2 diabetes mellitus with diabetic neuropathy E11.40 ; S/P coronary artery stent placement Z95.5 ; Chronic obstructive pulmonary disease, unspecified COPD type J44.9 ; Essential hypertension I10 ; GERD without esophagitis K21.9 ; Peripheral vascular disease I73.9 ; Mixed hyperlipidemia E78.2 and Hospital discharge follow-up Z09 [place] [id number] [place] [address] [id number] 07 Jun, [address] [id number] May, 2016 Depression F32.9 and Hyperlipidemia, unspecified hyperlipidemia E78.5 [facility] [id number] [place] [phone] May, [id number] [place] [address] [id number] May, [place] [id number] [place] [address] [id number] May, Essential hypertension I10 ; Chronic pain syndrome G89.4 ; Pain in left shoulder M25.512 ; High risk medication use Z79.899 ; Chronic obstructive pulmonary disease, unspecified COPD type J44.9 ; S/P coronary artery stent placement Z95.5 ; Personal history of carotid stenosis Z86.79 ; Hyperlipidemia, unspecified hyperlipidemia E78.5 ; Decreased GFR R94.4 and Type 2 diabetes mellitus with diabetic polyneuropathy E11.42 [place] [id number] [place] [address] [id number] May, Hemoglobin decreased R71.0 and Decreased GFR R94.4 [place] [id number] [place] [address] [id number] May, Hemoglobin decreased R71.0 and Decreased GFR R94.4 [address] [place] [address] [id number] May, [place] [id number] [place] [address] [id number] May, [place] [id number] [place] [address] [id number] Apr, [address] [place] [address] [id number] Apr, Type 2 diabetes mellitus with foot [...] unspecified hyperlipidemia E78.5 and Essential hypertension I10 [address] [place] [address] [id number] Apr, [place] [id number] [id number] Mar, [facility] [id number] [place] [id number] Mar, [facility] [id number] [place] [phone] Mar, [facility] [id number] [place] [address] [id number] Feb, [facility] [id number] [place] [address] [id number] Feb, [facility] [id number] [place] [address] [id number] Feb, [facility] [id number] [place] [address] [id number] Jan, Type 2 diabetes mellitus with diabetic polyneuropathy E11.42 ; Hypercholesterolemia E78.0 ; Chronic pain syndrome G89.4 ; Pain in left shoulder M25.512 and High risk medication use Z79.899 [facility] [id number] [place] [id number] Jan, [facility] [id number] [place] [address] [id number] Jan, [facility] [id number] [place] [address] [id number] December, [facility] [id number] [place] [address] [id number] December, [place] [id number] [place] [address] December, Diabetes type 2, uncontrolled E11.65 ; Type 2 diabetes mellitus with diabetic neuropathy E11.40 ; Peripheral vascular disease I73.9 ; 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 and 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 [facility] [id number] [place] [id number] Nov, [facility] [id number] [place] [id number] Nov, [facility] [address] [id number] [place] [address] [id number] Nov, [facility] [address] [id number] [place] [id number] Nov, Right hip pain M25.551 [facility] [address] [facility] [id number] [place] [address] Nov, [facility] [address] [facility] [id number] [place] [address] Nov, [facility] [id number] [place] [address] [id number] Nov, Diabetes with neurological manifestations, type II or unspecified type, not stated as uncontrolled 250.60 [facility] [id number] [place] [address] [id number] Nov, [facility] [address] [id number] [place] [address] [id number] Nov, [facility] [address] [id number] [place] [address] [id number] Oct, Diabetes type 2, uncontrolled E11.65 ; Type 2 diabetes mellitus with diabetic neuropathy, unspecified E11.40 and Low back pain M54.5 [facility] [address] [id number] [place] [id number] Oct, [facility] [address] [id number] [place] [id number] Oct, [facility] [address] [id number] [place] [id number] Oct, [facility] [address] [id number] [place] [id number] Sep, [facility] [address] [id number] [place] [id number] Sep, [facility] [address] [facility] [id number] [place] [address] Sep, [facility] [address] [id number] [place] [id number] Sep, [facility] [address] [id number] [place] [id number] Sep, [facility] [address] [id number] [place] [id number] Aug, 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 [facility] [id number] [place] [address] [id number] Aug, [facility] [id number] [place] [address] [id number] Aug, Allergic rhinitis due to pollen J30.1 [facility] [address] [place], [place] [address] [id number] [place] [address] [id number] Jul, [facility] [id number] [place] [address] [id number] Jul, [place] [id number] [place] [address] [id number] Jul, [place] [id number] [place] [address] [id number] Jun, [place] [id number] [place] [address] [id number] Jun, Thumb tendonitis M77.8 and Ringing in ear, bilateral H93.13 [facility] [address] [facility] [id number] [id number] Jun, [place] [id number] [place] [address] [id number] May, [facility] [id number] [place] [phone] May, [facility] [id number] [place] [address] May, Pre-op evaluation Z01.818 ; Encounter for immunization Z23 ; Type 2 diabetes mellitus with diabetic peripheral angiopathy without gangrene E11.51 ; Insulin long-term use Z79.4 ; Type 2 diabetes mellitus with foot ulcer E11.621 ; Peripheral vascular disease I73.9 ; Coronary artery disease involving bridge[place] coronary artery of [place] heart without angina pectoris I25.10 ; S/P coronary artery stent placement Z95.5 ; Osteomyelitis of right foot, unspecified chronicity M86.9 and Chronic obstructive pulmonary disease, unspecified COPD type J44.9 [facility] [address] [place] [id number] [address] May, [facility] [id number] [place] [address] [id number] May, [facility] [id number] [place] [address] [id number] May, Diabetes type 2, uncontrolled E11.65 ; Encounter for immunization Z23 ; Osteopenia M85.80 and Allergic rhinitis due to pollen J30.1 [facility] [id number] [place] [address] [id number] May, Lumbago 724.2 [place] [address] [place] [id number] [place] [address] [id number] Apr, [place] [address] [place] [id number] [place] [address] [id number] Apr, [facility] [id number] [place] [address] [id number] Apr, [facility] [id number] [place] [address] [id number] Apr, [facility] [id number] [place] [phone] Mar, [facility] [id number] [place] [address] [id number] Mar, [facility] [id number] [place] [address] [id number] Mar, [facility] [id number] [place] [address] [id number] Mar, [facility] [id number] [place] [address] [id number] Mar, [facility] [id number] [place] [phone] Mar, [facility] [id number] [place] [address] [id number] Mar, [facility] [id number] [place] [address] [id number] Mar, Diabetes with neurological manifestations, type II or unspecified type, not stated as uncontrolled 250.60 and Severe obesity (BMI 35.0-35.9 with comorbidity) 278.01 [facility] [id number] [place] [id number] Mar, [facility] [address] [place] [id number] [place] [phone] Mar, [facility] [id number] [place] [phone] Feb, [facility] [id number] [place] [id number] Feb, [facility] [id number] [place] [address] [id number] Feb, [facility] [address] [id number] [place] [address] [id number] Feb, Diabetes with neurological manifestations, type II or unspecified type, not stated as uncontrolled 250.60 [facility] [id number] [place] [address] [id number] Feb, [facility] [address]65100[place] [address] Feb, [facility] [id number] [place] [id number] Feb, [facility] [id number] [place] [address] [id number] Feb, Follow up V67.9 ; Diabetes with neurological manifestations, type II or unspecified type, not stated as uncontrolled 250.60 and Congestive heart failure 428.0 [facility] [id number] [place] [id number] Jan, [facility] [id number] [place] [id number] Jan, [facility] [id number] [place] [address] [id number] Jan, [facility] [id number] [place] [address] [id number] December, Otitis media with effusion 381.4 ; Left arm numbness 782.0 and Osteoporosis 733.00 [facility] [address] [place] [address] [id number] [place] [id number] December, [facility] [address] [facility] [id number] [place] [id number] Nov, [facility] [address] [facility] [id number] [place] [phone] Nov, Serous otitis media 381.4 and Lumbago 724.2 [facility] [place] [facility] [address] [id number] [address] Nov, [facility] [place] [facility] [id number] [address] Nov, [facility] [id number] [place] [id number] Oct, [facility] [place] [facility] [id number] [address] Oct, [facility] [id number] [place] [id number] Oct, [facility] [place] [facility] [address]65[address] [address] Oct, [facility] [address] [place] [address] [id number] [place] [id number] Oct, [facility] [place] [facility] [id number] [address] Oct, [facility] [place] [facility] [id number] [address] Sep, [facility] [place] [facility] [address] [place] [id number] [address] Sep, [facility] [address] [place] [address] [id number] [place] [id number] Sep, [facility] [place] [facility] [id number] [address] Sep, [facility] [address] [place] [address] [id number] [place] [id number] Aug, [facility] [place] [facility] [address]65[address] [address] Aug, [facility] [address] [id number] [place] [id number] Aug, [facility] [place] [facility] [address] [facility] [id number] [place] [address] Aug, [facility] [address] [id number] [place] [id number] Jul, [facility] [place] [facility] [address] [facility] [id number] [place] [address] Jul, [facility] [address] [id number] [place] [id number] Jul, [facility] [place] [facility] [address] [facility] [id number] [place] [address] Jul, [facility] [address] [facility] [id number] [place] [id number] Jul, [facility] [place] [facility] [address] [facility] [id number] [place] [address] Jul, [facility] [address] [id number] [place] [id number] Jun, [facility] [place] [facility] [address] [facility] [id number] [place] [address] Jun, [facility] [address] [facility] [id number] [place] [id number] May, [facility] [place] [facility] [address] [facility] [id number] [place] [address] May, [facility] [address] [id number] [place] [id number] May, [facility] [place] [facility] [address] [facility] [id number] [place] [address] May, [facility] [address] [id number] [place] [id number] May, [facility] [place] [facility] [address] [facility] [id number] [place] [address] May, [facility] [address] [id number] [place] [id number] May, [facility] [address] [id number] [place] [id number] May, [facility] [place] [facility] [address] [facility] [id number] [place] [address] May, [facility] [place] [facility] [address] [facility] [id number] [place] [address] May, [facility] [address] [id number] [place] [id number] May, [facility] [place] [facility] [address] [facility] [id number] [place] [address] May, [facility] [place] [facility] [address] [facility] [id number] [place] [address] Apr, [facility] [address] [facility] [id number] [place] [id number] Apr, [facility] [place] [facility] [address] [facility] [id number] [place] [address] Apr, [facility] [address] [id number] [place] [id number] Apr, [facility] [address] [id number] [place] [id number] Apr, [facility] [place] [facility] [address] [facility] [id number] [place] [address] Apr, [facility] [place] [facility] [address] [facility] [id number] [place] [address] Apr, [facility] [address] [id number] [place] [id number] Apr, [facility] [place] [facility] [address] [facility] [id number] [place] [address] Apr, [facility] [address] [facility] [id number] [place] [id number] Apr, [facility] [place] [facility] [address] [facility] [id number] [place] [address] Apr, [facility] [address] [id number] [place] [id number] Apr, [facility] [place] [facility] [address] [id number] [place] [address] Apr, [facility] [address] [id number] [place] [id number] Apr, [facility] [place] [facility] [address] [facility] [id number] [place] [address] Apr, [facility] [address] [id number] [place] [id number] Apr, [facility] [place] [facility] [address] [id number] [place] [address] Apr, [facility] [address] [id number] [place] [id number] Apr, [facility] [place] [facility] [address] [facility] [id number] [place] [address] Apr, [facility] [address] [id number] [place] [id number] Mar, [facility] [place] [facility] [address] [facility] [id number] [place] [address] Mar, [facility] [address] [id number] [place] [id number] Mar, [facility] [address] [id number] [place] [id number] Mar, [facility] [place] [facility] [address] [facility] [id number] [place] [address] Mar, [facility] [place] [facility] [address] [facility] [id number] [place] [address] Mar, [facility] [address] [id number] [place] [id number] Mar, [facility] [place] [facility] [address] [facility] [id number] [place] [address] Mar, [facility] [address] [id number] [place] [id number] Mar, [facility] [place] [facility] [address] [facility] [id number] [place] [address] Mar, [facility] [address] [id number] [place] [id number] Mar, [facility] [place] [facility] [address] [facility] [id number] [place] [address] Mar, [facility] [address] [id number] [place] [id number] Mar, [facility] [place] [facility] [address] [facility] [id number] [place] [address] Mar, [facility] [address] [id number] [place] [id number] Mar, [facility] [place] [facility] [address] [facility] [id number] [place] [address] Mar, [facility] [address] [id number] [place] [id number] Mar, [facility] [place] [facility] [address] [facility] [id number] [place] [address] Mar, [facility] [address] [id number] [place] [id number] Mar, [facility] [place] [facility] [address] [facility] [id number] [place] [address] Mar, [facility] [address] [id number] [place] [id number] Feb, [facility] [place] [facility] [address] [facility] [id number] [place] [address] Feb, [facility] [address] [id number] [place] [id number] Feb, [facility] [place] [facility] [address] [facility] [id number] [place] [address] Feb, [facility] [address] [id number] [place] [id number] Feb, [facility] [place] [facility] [address] [facility] [id number] [place] [address] Feb, [facility] [address] [id number] [place] [id number] Feb, [facility] [place] [facility] [address] [id number] [place] [address] Feb, [facility] [address] [id number] [place] [id number] Feb, [facility] [place] [facility] [address] [id number] [place] [address] Feb, [facility] [address] [id number] [place] [id number] Feb, [facility] [place] [facility] [address] [id number] [place] [address] Feb, [facility] [address] [id number] [place] [id number] Feb, [facility] [place] [facility] [address] [facility] [id number] [place] [address] Feb, [facility] [address] [id number] [place] [id number] Feb, [facility] [place] [facility] [address] [facility] [id number] [place] [address] Feb, [facility] [address] [id number] [place] [id number] Feb, [facility] [place] [facility] [address] [facility] [id number] [place] [address] Feb, [facility] [address] [id number] [place] [id number] Feb, [facility] [address] [id number] [place] [id number] Feb, [facility] [place] [facility] [address] [id number] [place] [address] Feb, [facility] [place] [facility] [address] [facility] [id number] [place] [address] Feb, [facility] [address] [id number] [place] [id number] Feb, [facility] [place] [facility] [address] [facility] [id number] [place] [address] Feb, [facility] [address] [id number] [place] [id number] Feb, [facility] [place] [facility] [address] [facility] [id number] [place] [address] Feb, [facility] [address] [id number] [place] [id number] Feb, [facility] [place] [facility] [address] [facility] [id number] [place] [address] Feb, [facility] [address] [id number] [place] [id number] Jan, [facility] [place] [facility] [address] [facility] [id number] [place] [address] Jan, [facility] [place] [facility] [address] [facility] [id number] [place] [address] Jan, [facility] [place] [facility] [address] [facility] [id number] [place] [address] Jan, [facility] [place] [facility] [address] [facility] [id number] [place] [address] Jan, [facility] [place] [facility] [address] [facility] [id number] [place] [address] Jan, [facility] [address] [facility] [id number] [place] [id number] Jan, [facility] [place] [facility] [address] [facility] [id number] [place] [address] Jan, [facility] [place] [facility] [address] [facility] [id number] [place] [address] Jan, [facility] [place] [facility] [address] [facility] [id number] [place] [address] Jan, [facility] [address] [id number] [place] [id number] Jan, [facility] [address] [id number] [place] [id number] Jan, [facility] [place] [facility] [address] [id number] [place] [address] Jan, [facility] [place] [facility] [address] [id number] [place] [address] Jan, [facility] [address] [id number] [place] [id number] Jan, [facility] [address] [facility] [id number] [place] [id number] Jan, [facility] [place] [facility] [address] [id number] [place] [address] Jan, [facility] [place] [facility] [address] [id number] [place] [address] Jan, [facility] [place] [facility] [address] [facility] [id number] [place] [address] Jan, [facility] [address] [facility] [id number] [place] [id number] December, [facility] [place] [facility] [address] [facility] [id number] [place] [address] December, [facility] [place] [facility] [address] [facility] [id number] [place] [address] December, [facility] [address] [facility] [id number] [place] [id number] December, [facility] [place] [facility] [address] [facility] [id number] [place] [address] December, [facility] [address] [facility] [id number] [place] [id number] December, [facility] [place] [facility] [address] [id number] [place] [address] December, [facility] [address] [facility] [id number] [place] [id number] December, [facility] [place] [facility] [address] [facility] [id number] [place] [address] December, [facility] [address] [facility] [id number] [place] [id number] Nov, [facility] [place] [facility] [address] [facility] [id number] [place] [address] Nov, [facility] [address] [facility] [id number] [place] [id number] Nov, [facility] [place] [facility] [address] [facility] [id number] [place] [address] Nov, [facility] [place] [facility] [address] [facility] [id number] [address] Nov, [facility] [place] [facility] [address] [facility] [id number] [place] [address] Nov, [facility] [place] [facility] [address] [facility] [id number] [place] [address] Oct, [facility] [place] [address] [id number] [place] [id number] Oct, [facility] [address] [id number] [address] Oct, [facility] [address] [facility] [id number] [place] [id number] Oct, [facility] [address] [id number] [address] Oct, [facility] [address] [facility] [id number] [place] [id number] Sep, [facility] [place] [facility] [address] [facility] [id number] [place] [address] Sep, [facility] [address] [facility] [id number] [place] [id number] Aug, [facility] [place] [facility] [address] [facility] [id number] [place] [address] Aug, [facility] [address] [facility] [id number] [place] [id number] Aug, [facility] [place] [facility] [address] [facility] [id number] [place] [address] Aug, [facility] [place] [facility] [address] [id number] [place] [address] Aug, [facility] [address] [facility] [id number] [place] [id number] Aug, [facility] [place] [facility] [address] [facility] [id number] [place] [address] Aug, [facility] [address] [id number] [place] [address] Aug, [facility] [address] [facility] [id number] [place] [id number] Aug, [facility] [place] [facility] [address] [facility] [id number] [place] [address] Aug, [facility] [address] [id number] [place] [id number] Jul, [facility] [id number] [address] Jul, [facility] [address] [id number] [place] [id number] Jul, [facility] [address] [id number] [address] Jul, [facility] [address] [id number] [place] [id number] Jul, [facility] [place] [facility] [address] [id number] [address] Jul, [facility] [address] [facility] [id number] [place] [id number] Jul, [facility] [place] [facility] [address] [facility] [id number] [place] [address] Jul, [facility] [address] [facility] [id number] [place] [id number] Jun, [facility] [place] [facility] [address] [facility] [id number] [place] [address] Jun, [facility] [address] [id number] [place] [id number] Jun, [facility] [place] [facility] [address] [facility] [id number] [place] [address] Jun, [facility] [address] [facility] [id number] [place] [address] Jun, [facility] [address] [facility] [id number] [place] [address] Jun, [facility] [address] [id number] [place] [id number] Apr, [facility] [address] [id number] [place] [id number] Mar, [facility] [address] [id number] [place] [id number] Mar, [facility] [address] [id number] [place] [id number] Feb, [facility] [address] [id number] [place] [id number] Feb, [facility] [address] [id number] [place] [id number] Feb, [facility] [address] [id number] [place] [id number] December, [facility] [address] [id number] [place] [id number] December, [facility] [address] [facility] [id number] [place] [address] December, [facility] [address] [id number] [place] [id number] December, [facility] [address] [id number] [place] [address]57[address]44[address] December, [facility] [address] [id number] [place] [id number] Nov, [facility] [address] [id number] [place] [id number] Nov, [facility] [address] [id number] [place] [id number] Nov, [facility] [address] [id number] [place] [id number] Oct, [facility] [address] [id number] [place] [id number] Sep, [facility] [address] [id number] [place] [id number] Aug, [facility] [address] [id number] [place] [address] Aug, [facility] [address] [id number] [place] [id number] Aug, [facility] [address] [id number] [place] [id number] Jul, [facility] [address] [facility] [id number] [place] [address] Jul, [facility] [address] [id number] [place] [id number] Jul, [facility] [id number] [address] Jul, [facility] [address] [id number] [place] [id number] Jun, [facility] [address] [facility] [id number] [place] [address] Jun, [facility] [address] [facility] [id number] [place] [id number] May, [facility] [address] [facility] [id number] [place] [address] May, [facility] [address] [id number] [place] [id number] May, [facility] [place] [facility] [address] [facility] [id number] [place] [address] May, [facility] [address] [id number] [place] [id number] Apr, [facility] [address] [id number] [place] [id number] Apr, [facility] [address] [id number] [place] [id number] Mar, [facility] [place] [address] [id number] [place] [address]40046[address] Mar, [facility] [place] [address] [id number] [place] [id number] Feb, [facility] [place] [address] [id number] [place] [id number] Feb, [facility] [place] [address] [id number] [place] 445421047 Jan, [facility] [place] [address] [id number] [place] [id number] Jan, [facility] [place] [address] [id number] [place] [id number] Jan, [facility] [place] [address] [id number] [place] [id number] Jan, [facility] [address] [id number] [place] [id number] December, [facility] [address] [id number] [place] [id number] December, [facility] [place] [facility] [address] [facility] [id number] [place] [address] Nov, [facility] [address] [id number] [place] [id number] Nov, [facility] [address] [id number] [place] [id number] Nov, [facility] [address] [id number] [place] [id number] Nov, [facility] [address] [id number] [place] [id number] Nov, [facility] [place] [facility] [address] [facility] [id number] [place] [address] Oct, [facility] [place] [facility] [address] [facility] [id number] [place] [address] Oct, [facility] [address] [id number] [place] [id number] Oct, [facility] [address] [id number] [place] [id number] Oct, [facility] [place] [address] [id number] [place] [id number] Oct, [facility] [place] [address] [id number] [place] [id number] Oct, [facility] [place] [address] [id number] [place] [id number] Oct, [facility] [place] [address] [id number] [place] [id number] Oct, [facility] [place] [address] [id number] [place] 714799193 Oct, [facility] [place] [facility] [address] [id number] [place] [address] Oct, [facility] [place] [address] [id number] [place] [id number] Sep, [facility] [place] [address] [id number] [place] [id number] Sep, [facility] [place] [address] [id number] [place] [id number] Aug, [facility] [place] [address] [id number] [place] [id number] Aug, [facility] [place] [facility] [id number] [address] Jul, [facility] [place] [facility] [id number] [address] Jul, [facility] [place] [facility] [id number] [address] Jul, [facility] [place] [facility] [address] [id number] [address] Jul, [facility] [place] [facility] [address] [id number] [address] Jul, [facility] [place] [facility] [address] [id number] [address] Jul, [facility] [place] [facility] [id number] [address] Jul, [facility] [address] [id number] [address] Jul, [facility] [id number] [address] Jul, [facility] [id number] [address] Jul, [facility] [id number] [place] [address] Jul, [facility] [id number] [place] [address] Jul, [facility] [id number] [place] [address] Jul, [facility] [id number] [address] Jul, IMMUNIZATIONS No Known Immunizations SOCIAL HISTORY Never Assessed REASON FOR VISIT EMR-[facility] [place] PLAN OF CARE VITAL [...] acute renal failure--2010. Secondary to ATN from [facility] 4.3 Medical History HX of dry [...] History Left eye retinal eye repair ([facility]) 06/2014 Surgical History amputation, toe-right third toe ([facility]) 2013 Surgical History Right eye retinal eye repair ([facility]) 09/2014 Surgical History heart cath with stent [...]
--- OUTSIDE RECORDS SUMMARY | 2019-04-03 06:37 | XMS REPORT ---
Author Author Migration, Doctor Organization 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 Active 842114475 Problem 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 Active 056045480 Problem Type 2 diabetes mellitus with diabetic polyneuropathy E11.42 Active 248525315 Problem Hypercholesterolemia E78.0 Active 75361141 Problem Fatigue, unspecified type R53.83 Active 72965294 Problem Personal history of carotid stenosis Z86.79 Active 851400600 Problem Uses walker Z99.89 Active 653293909 Problem Chronic obstructive pulmonary disease, unspecified COPD type J44.9 Active 67414958 Problem Aphasia R47.01 Active 72454540 Problem Peripheral vascular disease I73.9 Active 252308822 Problem Type 2 diabetes mellitus with diabetic neuropathy E11.40 Active 61883037 Problem S/P coronary artery stent placement Z95.5 Active 993420722 Problem CKD (chronic kidney disease), stage 3 (moderate) N18.3 Active 546764093 Problem Essential hypertension I10 Active 00895226 Problem GERD without esophagitis K21.9 Active 384602290 Problem Type 2 diabetes mellitus with diabetic peripheral angiopathy without gangrene E11.51 Active 445571517 Problem CKD (chronic kidney disease) stage 3, GFR 30-59 ml/min N18.3 Active 075340870 Problem Type 2 diabetes mellitus with foot ulcer E11.621 Active 615215590 Problem Chronic kidney disease, unspecified N18.9 Active 902120803 Problem Depression F32.9 Active 12126556 Problem Mixed hyperlipidemia E78.2 Active 590834446 Problem Insulin long-term use Z79.4 Active 647122414 Problem Obesity (BMI 30.0-34.9) E66.9 Active 359508733014157 Problem Coronary artery disease involving [place] coronary artery of [place] heart without angina pectoris I25.10 Active 6649457048502 Problem Frequent falls R29.6 Active 799262994 Problem Hyperlipidemia, unspecified hyperlipidemia E78.5 Active 33674364 Problem Chronic diarrhea K52.9 Active 863067939 Problem Other chronic pain G89.29 Active 59591202 Problem Full incontinence of feces R15.9 Active 198038331071041 Problem Major depressive disorder, single episode, mild F32.0 Active 52312851 Problem Chronic pain syndrome G89.4 Active 831991810 Problem Ulcer of left foot, unspecified ulcer stage L97.529 Active 60319429 Problem High risk medication use Z79.899 Active 117470488 Problem Osteomyelitis of right foot, unspecified chronicity M86.9 Active 35210141 Problem Pain in left shoulder M25.512 Active 51782800 Problem Diabetes type 2, uncontrolled E11.65 Active 252171648 Problem Fecal urgency R15.2 Active 46600563 Problem Functional diarrhea K59.1 Active 88771402 Problem Type 2 diabetes mellitus with diabetic retinopathy, macular edema presence unspecified, with unspecified retinopathy severity E11.319 Active 66643783 Problem Mixed stress and urge urinary incontinence N39.46 Active 993815166 Problem Chronic fatigue R53.82 Active 42052835 ALLERGIES No Information ENCOUNTERS Encounter Location Date Diagnosis [facility] [address] [address] 14 Dec, 2018 [place] [id number] [place] [address] [id number] Nov, [place] [id number] [place] [address] [id number] Oct, Bilateral low back pain without sciatica M54.5 [place] [id number] [place] [address] [id number] Oct, [facility] [address] [address] Oct, [place] [id number] [place] [address] [id number] Sep, Other chronic pain G89.29 and Diabetes type 2, uncontrolled E11.[address] [id number] Sep, Type 2 diabetes mellitus with diabetic neuropathy E11.40 ; Atherosclerosis of [place] artery of both lower extremities, with unspecified presence of clinical manifestation I70.203 and Ulcer of left foot, unspecified ulcer stage L97.529 [facility] [id number] [place] [address] [id number] Sep, Bilateral low back pain without sciatica M54.5 [facility] [address] [id number] [place] [address] [id number] Aug, Bilateral low back pain without sciatica M54.5 [facility] [id number] [place] [address] [id number] Aug, [facility] [address] [place] [address] [id number] Aug, Essential hypertension I10 [facility] [id number] [place] [address] [id number] Aug, [facility] [address] [id number] [place] [address] [id number] Jul, [facility] [id number] [place] [address] [id number] Jul, Bilateral low back pain without sciatica M54.5 [facility] [id number] [place] [address] [id number] Jul, Hyperlipidemia, unspecified hyperlipidemia E78.5 [facility] [address] [id number] [place] [address] [id number] Jul, [facility] [id number] [place] [address] [id number] Jul, Type 2 diabetes mellitus with diabetic neuropathy E11.40 [facility] [id number] [place] [address] [id number] Jun, [facility] [address] [id number] [place] [address] [id number] Jun, Bilateral low back pain without sciatica M54.5 [facility] [id number] [place] [address] [id number] Jun, Chronic fatigue R53.82 [facility] [address] [id number] [place] [address] [id number] Jun, Type 2 diabetes mellitus with diabetic polyneuropathy E11.42 and Bilateral low back pain without sciatica M54.5 [facility] [id number] [place] [address] [id number] May, Other chronic pain G89.29 [facility] [id number][place] [id number] May, Diabetes type 2, uncontrolled E11.65 [facility] [id number] [address] 16 May, 2018 Type 2 diabetes mellitus with diabetic neuropathy E11.40 ; Coronary artery disease involving [place] coronary artery of [place] heart without angina pectoris I25.10 and Major depressive disorder, single episode, mild F32.0 [facility] [id number][place] [id number] May, [facility] [id number][place] [id number] May, [facility] [id number] [place] [address] [id number] May, [facility] [id number] [place] [address] [id number] Apr, Other chronic pain G89.29 [place] [address] [facility] [id number] [place] [id number] Apr, [facility] [id number], [place] [id number] Apr, Essential hypertension I10 [facility] [id number][place] [id number] Mar, Other chronic pain G89.29 [facility] [address] [facility] [id number][place] [id number] Mar, [facility] [id number] [place] [address] [id number] Feb, Other chronic pain G89.29 [facility] [id number], [place] [id number] Feb, Diabetes type 2, uncontrolled E11.65 ; Type 2 diabetes mellitus with diabetic retinopathy, macular edema presence unspecified, with unspecified retinopathy severity E11.319 and Bilateral low back pain without sciatica M54.5 [facility] [id number] [place] [address] [id number] Feb, [facility] [address] [id number] [place] [address] [id number] Feb, Diabetes type 2, uncontrolled E11.65 [facility] [address] [place] [id number] [place] [address] [id number] Feb, Other chronic pain G89.29 [facility] [address] [id number] [place] [address] [id number] Jan, [facility] [address] [id number] [place] [id number] Jan, [facility] [id number] [place] [address] [id number] Jan, [facility] [address] [id number] [place] [address] [id number] Jan, Other chronic pain G89.29 [facility] [id number] [place] [address] [id number] December, Mixed stress and urge urinary incontinence N39.46 [facility] [address] [place] [id number] [place] [address] [id number] December, Chronic fatigue R53.82 [facility] [id number] [place] [address] [id number] December, Other chronic pain G89.29 [facility] [id number] [place] [address] [id number] December, Diabetes type 2, uncontrolled E11.65 ; [...] pain G89.29 [facility] [address]65100[place], [place] [address] December, [place] [id number] [place] [address] [id number] December, Medicare annual wellness visit, subsequent Z00.00 ; Type 2 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 ; Chronic obstructive pulmonary disease, unspecified COPD type J44.9 ; Depression F32.9 ; Peripheral vascular disease I73.9 ; Coronary artery disease involving [place] coronary artery of [place] heart without angina pectoris I25.10 ; Hypercholesterolemia E78.0 ; GERD without esophagitis K21.9 and Chronic kidney disease, unspecified N18.9 [place] [id number] [place] [address] [id number] December, Mixed stress and urge urinary incontinence N39.46 ; Full incontinence of feces R15.9 ; Fecal urgency R15.2 ; Functional diarrhea K59.1 and Type 2 diabetes mellitus with diabetic neuropathy E11.40 [place] [id number] [place] [address] [id number] Nov, Other chronic pain G89.29 [place] [id number] [place] [address] [id number] Oct, [place] [id number] [place] [address] [id number] Oct, [place] [address] [place] [address] [id number] Oct, Other chronic pain G89.29 [place] [address] [place] [address] [id number] Sep, Other chronic pain G89.29 [address] [place] [address] [id number] Aug, CKD (chronic kidney disease), stage 3 (moderate) N18.3 ; Anemia, unspecified type D64.9 and Dilated pore of Ly L70.8 [address] [place] [address] [id number] Aug, Other chronic pain G89.29 ; Pain in left shoulder M25.512 ; High risk medication use Z79.899 ; Uses walker Z99.89 ; Diabetes type 2, uncontrolled E11.65 and Depression F32.9 [place] [id number] [place] [address] [id number] Aug, Chronic diarrhea K52.9 [place] [address] [place] [address] [id number] Aug, Chronic diarrhea K52.9 ; Type 2 [...] E78.2 and Essential hypertension I10 [place] [id number] [place] [address] [id number] Aug, [address] [id number] Jul, Diabetes type 2, uncontrolled E11.65 [place] [address] [place] [address] [id number] Jul, Diabetes type 2, uncontrolled E11.65 ; Type 2 diabetes mellitus with diabetic neuropathy E11.40 ; Insulin long-term use Z79.4 and Chronic obstructive pulmonary disease, unspecified COPD type J44.9 [address] [place] [address] [id number] Jun, [place] [id number] [place] [address] [id number] Jun, Essential hypertension I10 [place] [id number] [place] [address] [id number] Jun, Essential hypertension I10 [place] [id number] [place] [address] [id number] Jun, Type 2 diabetes mellitus with diabetic neuropathy E11.40 ; Type 2 diabetes mellitus with diabetic polyneuropathy E11.42 ; S/P coronary artery stent placement Z95.5 ; Obesity (BMI 30.0-34.9) E66.9 ; Mixed hyperlipidemia E78.2 ; Frequent falls R29.6 ; Chronic obstructive pulmonary disease, unspecified COPD type J44.9 ; Essential hypertension I10 ; Insulin long-term use Z79.4 and High risk medication use Z79.899 [address] [place] [address] [id number] May, Diarrhea, unspecified type R19.7 ; Type 2 diabetes mellitus with diabetic neuropathy E11.40 ; Chronic obstructive pulmonary disease, unspecified COPD type J44.9 ; S/P coronary artery stent placement Z95.5 ; High risk medication use Z79.899 ; Essential hypertension I10 ; Encounter for administration of vaccine Z23 and Encounter for immunization Z23 [address] [id number] [place] [id number] May, Chronic obstructive pulmonary disease, unspecified COPD type J44.9 [address] [place] [address] [id number] May, Type 2 diabetes 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 ; Encounter for immunization Z23 ; Needs flu shot Z23 ; Comprehensive diabetic foot examination, type 2 DM, encounter for E11.9 and Obesity (BMI 30.0-34.9) E66.9 [place] [id number] [place] [address] [id number] May, [place] [address] [place] [address] [id number] Apr, [place] [address] [place] [address] [id number] Apr, Essential hypertension I10 and Aphasia R47.01 [place] [address] [place] [address] [id number] Apr, [place] [address] [place] [address] [id number] Apr, Type 2 diabetes mellitus with diabetic neuropathy E11.40 ; Frequent falls R29.6 ; Essential hypertension I10 ; S/P coronary artery stent placement Z95.5 ; High risk medication use Z79.899 ; Hyperlipidemia, unspecified hyperlipidemia E78.5 ; CKD (chronic kidney disease), stage 3 (moderate) N18.3 ; Pain in left shoulder M25.512 and Chronic obstructive pulmonary disease, unspecified COPD type J44.9 [place] [id number] [place] [address] [id number] Mar, [facility] [address] [id number] [place] [address] [id number] Mar, Type 2 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 ; Leg wound, left, initial encounter S81.802A ; Hx of shoulder surgery Z98.890 ; Acute pain of left shoulder M25.512 and Fall, initial encounter W19.XXXA [facility] [id number] [place] [address] [id number] Feb, Follow-up exam Z09 ; Hx of shoulder surgery Z98.890 ; Acute pain of left shoulder M25.512 ; Essential hypertension I10 and Leg wound, left, initial encounter S81.802A [facility] [address] [id number] [place] [address] [id number] Feb, [facility] [address] [id number] [place] [address] [id number] Feb, [facility] [address] [id number] [place] [address] [id number] Feb, Chronic obstructive pulmonary disease, unspecified COPD type J44.9 [facility] [address] [id number] [place] [address] [id number] Feb, [facility] [address] [id number] [place] [address] [id number] Jan, Generalized weakness R53.1 ; Exertional shortness of breath R06.02 and Fungal rash of trunk B36.9 [facility] [id number] [place] [address] [id number] Jan, [facility] [id number] [place] [address] [id number] Jan, [facility] [id number] [place] [address] [id number] Jan, [facility] [id number] [place] [address] [id number] Jan, [facility] [id number] [place] [address] [id number] December, High risk medication use Z79.[address] [id number][place] [id number] December, Type 2 diabetes mellitus with diabetic neuropathy E11.40 [address] [place] [address] [id number] December, High risk medication use Z79.[address] [id number][place] [id number] Nov, Diabetes type 2, uncontrolled E11.65 [place] [address] [place] [address] [id number] Nov, Medicare annual wellness visit, initial Z00.00 ; Bilateral low back pain without sciatica M54.5 ; Pain in left shoulder M25.512 ; Chronic pain syndrome G89.4 ; Type 2 diabetes mellitus with diabetic polyneuropathy E11.42 ; High risk medication use Z79.899 and Encounter for immunization Z23 [address] [place] [address] [id number] Nov, Type 2 diabetes mellitus with diabetic neuropathy E11.40 ; Coronary artery disease involving [place] coronary artery of [place] heart without angina pectoris I25.10 and CKD (chronic kidney disease), stage 3 (moderate) N18.3 [address] [place] [address] [id number] Oct, Type 2 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 ; Chronic pain syndrome G89.4 ; Chronic obstructive pulmonary disease, unspecified COPD type J44.9 ; Chronic kidney disease, unspecified N18.9 and Rash R21 [place] [address] [facility] [id number] [place] [id number] Oct, Type 2 diabetes mellitus with diabetic neuropathy E11.[address] [id number], [place] [id number] Oct, Rash R21 and Impetigo L01.00 [address] [id number] Oct, Chronic pain syndrome G89.[address] [id number][place] [id number] Oct, [place] [id number] [id number] Sep, Sebaceous cyst L72.3 [facility] [id number] [place] [address] [id number] Sep, Sebaceous cyst L72.3 [facility] [id number] [place] [address] [id number] Sep, Chronic pain syndrome G89.4 ; Pain in left shoulder M25.512 and Effusion of olecranon bursa, left M25.422 [facility] [id number] [address] Aug, [facility] [id number] [place] [address] [id number] Aug, [facility] [id number] [place] [address] [id number] Aug, Mixed hyperlipidemia E78.2 and Chronic kidney disease, unspecified N18.9 [facility] [id number] [place] [address] [id number] Jul, Type 2 diabetes mellitus with diabetic neuropathy E11.40 ; Essential hypertension I10 and S/P coronary artery stent placement Z95.5 [place] [id number] [place] [address] [id number] Jul, 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 [facility] [id number] [place] [address] [id number] Jul, Diabetes type 2, uncontrolled E11.65 ; Essential hypertension I10 and 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 [facility] [id number] [place] [address] [id number] Jul, [facility] [id number] [place] [address] [id number] Jul, [facility] [id number] [place] [address] [id number] Jul, [facility] [id number] [place] [address] [id number] Jul, Chronic obstructive pulmonary disease, unspecified COPD type J44.9 [facility] [id number] [place] [address] [id number] Jun, CKD (chronic kidney disease), stage 3 (moderate) N18.3 and Anemia, unspecified type D64.9 [place] [address] [place] [address] [id number] Jun, Type 2 diabetes mellitus with diabetic neuropathy E11.40 ; Decreased GFR R94.4 ; CKD (chronic kidney disease), stage 3 (moderate) N18.3 and Decreased hemoglobin R71.0 [place] [address] [place] [address] [id number] Jun, CKD (chronic kidney disease), stage 3 (moderate) N18.3 and Anemia, unspecified type D64.9 [place] [address] [place] [address] [id number] Jun, Type 2 diabetes mellitus with diabetic neuropathy E11.40 ; Decreased GFR R94.4 and CKD (chronic kidney disease), stage 3 (moderate) N18.3 [place] [address] [place] [address] [id number] Jun, Type 2 diabetes mellitus with diabetic neuropathy E11.40 and Essential hypertension I10 [place] [address] [place] [address] [id number] Jun, [address] [id number] Jun, [place] [address] [place] [address] [id number] Jun, Type 2 diabetes mellitus with diabetic neuropathy E11.40 ; S/P coronary artery stent placement Z95.5 ; Chronic obstructive pulmonary disease, unspecified COPD type J44.9 ; Essential hypertension I10 ; GERD without esophagitis K21.9 ; Peripheral vascular disease I73.9 ; Mixed hyperlipidemia E78.2 and Hospital discharge follow-up Z09 [place] [address] [place] [address] [id number] 07 Jun, [address] [id number] 31 May, 2016 Depression F32.9 and Hyperlipidemia, unspecified hyperlipidemia E78.5 [facility] [id number] [place] [address] May, [address] [place] [address] [id number] May, [place] [address] [place] [address] [id number] May, Essential hypertension I10 ; Chronic pain syndrome G89.4 ; Pain in left shoulder M25.512 ; High risk medication use Z79.899 ; Chronic obstructive pulmonary disease, unspecified COPD type J44.9 ; S/P coronary artery stent placement Z95.5 ; Personal history of carotid stenosis Z86.79 ; Hyperlipidemia, unspecified hyperlipidemia E78.5 ; Decreased GFR R94.4 and Type 2 diabetes mellitus with diabetic polyneuropathy E11.42 [place] [address] [place] [address] [id number] May, Hemoglobin decreased R71.0 and Decreased GFR R94.4 [place] [address] [place] [address] [id number] May, Hemoglobin decreased R71.0 and Decreased GFR R94.4 [address] [place] [address] [id number] May, [place] [address] [place] [address] [id number] May, [place] [address] [place] [address] [id number] Apr, [address] [place] [address] [id number] Apr, Type 2 diabetes mellitus with foot [...] unspecified hyperlipidemia E78.5 and Essential hypertension I10 [address] [place] [address] [id number] Apr, [place] [id number] [id number] Mar, [facility] [id number], [place] [id number] Mar, [facility] [id number] [place] [address] Mar, [facility] [id number] [place] [address] [id number] Feb, [facility] [id number] [place] [address] [id number] Feb, [facility] [id number] [place] [address] [id number] Feb, [facility] [facility] [id number] [place] [address] [id number] Jan, Type 2 diabetes mellitus with diabetic polyneuropathy E11.42 ; Hypercholesterolemia E78.0 ; Chronic pain syndrome G89.4 ; Pain in left shoulder M25.512 and High risk medication use Z79.899 [facility] [id number], [place] [id number] Jan, [facility] [id number] [place] [address] [id number] Jan, [facility] [id number] [place] [address] [id number] December, [facility] [id number] [place] [address] [id number] December, [place] [id number] [place] [address] December, Diabetes type 2, uncontrolled E11.65 ; Type 2 diabetes mellitus with diabetic neuropathy E11.40 ; Peripheral vascular disease I73.9 ; 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 [id number] [place] [address] Nov, [facility] [address] [facility] [id number], [place] [address] Nov, [facility] [id number] [place] [address] [id number] Nov, Diabetes with neurological manifestations, type II or unspecified type, not stated as uncontrolled 250.60 [facility] [id number] [place] [address] [id number] Nov, [facility] [address] [id number] [place] [address] [id number] Nov, [facility] [address] [id number] [place] [address] [id number] Oct, Diabetes type 2, uncontrolled E11.65 ; Type 2 diabetes mellitus with diabetic neuropathy, unspecified E11.40 and Low back pain M54.5 [facility] [address] [id number], [place] [id number] Oct, [facility] [address] [id number], [place] [id number] Oct, [facility] [address] [id number], [place] [id number] Oct, [facility] [address] [id number], [place] [id number] Sep, [facility] [address] [id number], [place] [id number] Sep, [facility] [address] [facility] [id number], [place] [address] Sep, [facility] [address] [id number], [place] [id number] Sep, [facility] [address] [id number], [place] [id number] Sep, [facility] [address] [id number] [id number] Aug, 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 [facility] [id number] [place] [address] [id number] Aug, [facility] [id number] [place] [address] [id number] Aug, Allergic rhinitis due to pollen J30.1 [facility] [address] [place], [place] [address] [id number] [place] [address] [id number] Jul, [facility] [id number] [place] [address] [id number] Jul, [place] [id number] [place] [address] [id number] Jul, [place] [id number] [place] [address] [id number] Jun, [place] [id number] [place] [address] [id number] Jun, Thumb tendonitis M77.8 and Ringing in ear, bilateral H93.13 [facility] [address] [facility] [id number] [place] [id number] Jun, [place] [id number] [place] [address] [id number] May, [facility] [id number] [place] [address] May, [facility] [id number] [place] [address] May, Pre-op evaluation Z01.818 ; Encounter for immunization Z23 ; Type 2 diabetes mellitus with diabetic peripheral angiopathy without gangrene E11.51 ; Insulin long-term use Z79.4 ; Type 2 diabetes mellitus with foot ulcer E11.621 ; Peripheral vascular disease I73.9 ; Coronary artery disease involving [place] coronary artery of [place] heart without angina pectoris I25.10 ; S/P coronary artery stent placement Z95.5 ; Osteomyelitis of right foot, unspecified chronicity M86.9 and Chronic obstructive pulmonary disease, unspecified COPD type J44.9 [facility] [address] [id number] [address] May, [facility] [id number] [place] [address] [id number] May, [facility] [id number] [place] [address] [id number] May, Diabetes type 2, uncontrolled E11.65 ; Encounter for immunization Z23 ; Osteopenia M85.80 and Allergic rhinitis due to pollen J30.1 [facility] [id number] [place] [address] [id number] May, Lumbago 724.2 [place] [id number] [place] [address] [id number] Apr, [place] [id number] [place] [address] [id number] Apr, [facility] [id number] [place] [address] [id number] Apr, [facility] [id number] [place] [address] [id number] Apr, [facility] [id number] [place] [address] Mar, [facility] [id number] [place] [address] [id number] Mar, [facility] [id number] [place] [address] [id number] Mar, [facility] [id number] [place] [address] [id number] Mar, [facility] [id number] [place] [address] [id number] Mar, [facility] [id number] [place] [address] Mar, [facility] [id number] [place] [address] [id number] Mar, [facility] [id number] [place] [address] [id number] Mar, Diabetes with neurological manifestations, type II or unspecified type, not stated as uncontrolled 250.60 and Severe obesity (BMI 35.0-35.9 with comorbidity) 278.01 [facility] [id number], [place] [id number] Mar, [facility] [id number] [place] [phone] Mar, [facility] [id number] [place] [phone] Feb, [facility] [id number], [place] [id number] Feb, [facility] [id number] [place] [address] [id number] Feb, [facility] [id number] [place] [address] [id number] Feb, Diabetes with neurological manifestations, type II or unspecified type, not stated as uncontrolled 250.60 [facility] [id number] [place] [address] [id number] Feb, [facility] [address]00565100[place], [place] [address] Feb, [facility] [id number], [place] [id number] Feb, [facility] [id number] [place] [address] [id number] Feb, Follow up V67.9 ; Diabetes with neurological manifestations, type II or unspecified type, not stated as uncontrolled 250.60 and Congestive heart failure 428.0 [facility] [id number], [place] [id number] Jan, [facility] [id number], [place] [id number] Jan, [facility] [id number] [place] [address] [id number] Jan, [facility] [id number] [place] [address] [id number] December, Otitis media with effusion 381.4 ; Left arm numbness 782.0 and Osteoporosis 733.00 [facility] [address] [id number], [place] [id number] December, [facility] [address] [facility] [id number], [place] [id number] Nov, [facility] [address] [facility] [id number], [place] [id number] Nov, Serous otitis media 381.4 and Lumbago 724.2 [facility] [place] [facility] [address] [id number], [place] [address] Nov, [facility] [place] [facility] [address]00565100[place], [place] [address] Nov, [facility] [id number], [place] [id number] Oct, [facility] [place] [facility] [address]00565100[place], [place] [address] Oct, [facility] [id number], [place] [id number] Oct, [facility] [place] [facility] [address]00565100[place], [place] [address] Oct, [facility] [address] [id number], [place] [id number] Oct, [facility] [place] [address]00565100[place], [place] [address] Oct, [facility] [place] [address]00565100[place], [place] [address] Sep, [facility] [place] [address] [id number], [place] [address] Sep, [facility] [address] [id number], [place] [id number] Sep, [facility] [place] [facility] [address]00565100[place], [place] [address] Sep, [facility] [address] [id number], [place] [id number] Aug, [facility] [place] [facility] [address]00565100[place], [place] [address] Aug, [facility] [address] [id number] [place] [id number] Aug, [facility] [address] [facility] [id number], [place] [address] Aug, [facility] [address] [id number] [place] [id number] Jul, [facility] [address] [facility] [id number], [place] [address] Jul, [facility] [address] [id number] [place] [id number] Jul, [facility] [address] [facility] [id number], [place] [address] Jul, [facility] [address] [facility] [id number], [place] [id number] Jul, [facility] [address] [facility] [id number], [place] [address] Jul, [facility] [address] [id number], [place] [id number] Jun, [facility] [address] [facility] [id number], [place] [address] Jun, [facility] [address] [facility] [id number], [place] [id number] May, [facility] [address] [facility] [id number], [place] [address] May, [facility] [address] [id number], [place] [id number] May, [facility] [address] [facility] [id number], [place] [address] May, [facility] [address] [id number], [place] [id number] May, [facility] [address] [facility] [id number], [place] [address] May, [facility] [address] [id number], [place] [id number] May, [facility] [address] [id number] [place] [id number] May, [facility] [place] [facility] [address] [facility] [id number] [place] [address] May, [facility] [place] [facility] [address] [facility] [id number] [place] [address] May, [facility] [address] [id number] [place] [id number] May, [facility] [place] [facility] [address] [facility] [id number] [place] [address] May, [facility] [place] [facility] [address] [facility] [id number] [place] [address] Apr, [facility] [address] [facility] [id number], [place] [id number] Apr, [facility] [place] [facility] [address] [facility] [id number], [place] [address] Apr, [facility] [address] [id number], [place] [id number] Apr, [facility] [address] [id number], [place] 429793453 Apr, [facility] [place] [facility] [address] [facility] [id number], [place] [address] Apr, [facility] [place] [facility] [address] [facility] [id number], [place] [address] Apr, [facility] [address] [id number], [place] [id number] Apr, [facility] [place] [facility] [address] [facility] [id number], [place] [address] Apr, [facility] [address] [facility] [id number], [place] [id number] Apr, [facility] [place] [facility] [address] [facility] [id number], [place] [address] Apr, [facility] [address] [id number] [place] [id number] Apr, [facility] [place] [facility] [address] [id number] [place] [address] Apr, [facility] [address] [id number] [place] 945163459 Apr, [facility] [place] [facility] [address] [facility] [id number], [place] [address] Apr, [facility] [address] [id number] [place] [id number] Apr, [facility] [place] [facility] [address] [id number], [place] [address] Apr, [facility] [address] [id number] [place] [id number] Apr, [facility] [place] [facility] [address] [facility] [id number], [place] [address] Apr, [facility] [address] [id number], [place] [id number] Mar, [facility] [place] [facility] [address] [facility] [id number], [place] [address] Mar, [facility] [address] [id number], [place] 537716157 Mar, [facility] [address] [id number], [place] 824548224 Mar, [facility] [facility] [address] [facility] [id number], [place] [address] Mar, [facility] [place] [facility] [address] [facility] [id number], [place] [address] Mar, [facility] [address] [id number], [place] [id number] Mar, [facility] [place] [facility] [address] [facility] [id number], [place] [address] Mar, [facility] [address] [id number] [place] [id number] Mar, [facility] [place] [facility] [address] [facility] [id number] [place] [address] Mar, [facility] [address] [id number] [place] [id number] Mar, [facility] [place] [facility] [address] [facility] [id number] [place] [address] Mar, [facility] [address] [id number] [place] [id number] Mar, [facility] [place] [facility] [address] [facility] [id number] [place] [address] Mar, [facility] [address] [id number] [place] [id number] Mar, [facility] [place] [facility] [address] [facility] [id number] [place] [address] Mar, [facility] [address] [id number] [place] [id number] Mar, [facility] [place] [facility] [address] [facility] [id number], [place] [address] Mar, [facility] [address] [id number] [place] 070295412 Mar, [facility] [place] [facility] [address] [facility] [id number], [place] [address] Mar, [facility] [address] [id number] [place] [id number] Feb, [facility] [place] [facility] [address] [facility] [id number], [place] [address] Feb, [facility] [address] [id number] [place] [id number] Feb, [facility] [place] [facility] [address] [facility] [id number] [place] [address] Feb, [facility] [address] [id number] [place] [id number] Feb, [facility] [place] [facility] [address] [facility] [id number] [place] [address] Feb, [facility] [address] [id number] [place] 755806621 Feb, [facility] [place] [facility] [address] [id number] [place] [address] Feb, [facility] [address] [id number] [place] [id number] Feb, [facility] [place] [facility] [address] [id number] [place] [address] Feb, [facility] [address] [id number] [place] [id number] Feb, [facility] [place] [facility] [address] [id number] [place] [address] Feb, [facility] [address] [id number] [place] [id number] Feb, [facility] [place] [facility] [address] [facility] [id number] [place] [address] Feb, [facility] [address] [id number] [place] 799142665 Feb, [facility] [place] [facility] [address] [facility] [id number] [place] [address] Feb, [facility] [address] [id number] [place] [id number] Feb, [facility] [place] [facility] [address] [facility] [id number] [place] [address] Feb, [facility] [address] [id number] [place] 016510558 Feb, [facility] [address] [id number] [place] [id number] Feb, [facility] [place] [facility] [address] [id number] [place] [address] Feb, [facility] [place] [facility] [address] [facility] [id number] [place] [address] Feb, [facility] [address] [id number] [place] [id number] Feb, [facility] [place] [facility] [address] [facility] [id number], [place] [address] Feb, [facility] [address] [id number] [place] [id number] Feb, [facility] [place] [facility] [address] [facility] [id number], [place] [address] Feb, [facility] [address] [id number] [place] [id number] Feb, [facility] [place] [facility] [address] [facility] [id number], [place] [address] Feb, [facility] [address] [id number] [place] [id number] Jan, [facility] [place] [facility] [address] [facility] [id number], [place] [address] Jan, [facility] [place] [facility] [address] [facility] [id number], [place] [address] Jan, [facility] [place] [facility] [address] [facility] [id number], [place] [address] Jan, [facility] [place] [facility] [address] [facility] [id number], [place] [address] Jan, [facility] [place] [facility] [address] [facility] [id number], [place] [address] Jan, [facility] [address] [facility] [id number][place] [id number] Jan, [facility] [place] [facility] [address] [facility] [id number], [place] [address] Jan, [facility] [place] [facility] [address] [facility] [id number], [place] [address] Jan, [facility] [place] [facility] [address] [facility] [id number], [place] [address] Jan, [facility] [address] [id number] [place] [id number] Jan, [facility] [address] [id number] [place] [id number] Jan, [facility] [place] [facility] [address] [id number] [place] [address] Jan, [facility] [place] [facility] [address] [id number] [place] [address] Jan, [facility] [address] [id number] [place] [id number] Jan, [facility] [address] [facility] [id number] [place] [id number] Jan, [facility] [place] [facility] [address] [id number] [place] [address] Jan, [facility] [place] [facility] [address] [id number] [place] [address] Jan, [facility] [place] [facility] [address] [facility] [id number] [place] [address] Jan, [facility] [address] [facility] [id number][place] [id number] December, [facility] [place] [facility] [address] [facility] [id number] [place] [address] December, [facility] [place] [facility] [address] [facility] [id number] [place] [address] December, [facility] [address] [facility] [id number][place] [id number] December, [facility] [place] [facility] [address] [facility] [id number], [place] [address] December, [facility] [address] [facility] [id number][place] [id number] December, [facility] [place] [facility] [address] [id number], [place] [address] December, [facility] [address] [facility] [id number][place] [id number] December, [facility] [place] [facility] [address] [facility] [id number] [place] [address] December, [facility] [address] [facility] [id number][place] [id number] Nov, [facility] [place] [facility] [address] [facility] [id number] [place] [address] Nov, [facility] [address] [facility] [id number][place] [id number] Nov, [facility] [place] [facility] [address] [facility] [id number] [place] [address] Nov, [facility] [place] [facility] [address] [facility] [id number], [place] [address] Nov, [facility] [place] [facility] [address] [facility] [id number] [place] [address] Nov, [facility] [place] [facility] [address] [facility] [id number], [place] [address] Oct, [facility] [address] [id number][place] [id number] Oct, [facility] [address] [id number], [place] [address] Oct, [facility] [address] [facility] [id number][place] [id number] Oct, [facility] [address] [id number], [place] [address] Oct, [facility] [address] [facility] [id number][place] [id number] Sep, [facility] [place] [facility] [address] [facility] [id number], [place] [address] Sep, [facility] [address] [facility] [id number][place] [id number] Aug, [facility] [place] [facility] [address] [facility] [id number], [place] [address] Aug, [facility] [address] [facility] [id number][place] [id number] Aug, [facility] [place] [facility] [address] [facility] [id number], [place] [address] Aug, [facility] [place] [facility] [address] [id number], [place] [address] Aug, [facility] [address] [facility] [id number] [place] [id number] Aug, [facility] [place] [facility] [address] [facility] [id number] [place] [address] Aug, [facility] [address] [id number] [place] [address] Aug, [facility] [place] [address] [facility] [id number][place] [id number] Aug, [facility] [place] [facility] [address] [facility] [id number], [place] [address] Aug, [facility] [place] [address] [id number] [place] [id number] Jul, [facility] [address]65100[place] [address] Jul, [facility] [place] [address] [id number][place] [id number] Jul, [facility] [address] [id number] [address] Jul, [facility] [place] [address] [id number][place] [id number] Jul, [facility] [place] [facility] [address] [id number] [address] Jul, [facility] [place] [address] [facility] [id number][place] [id number] Jul, [facility] [place] [facility] [address] [facility] [id number], [place] [address] Jul, [facility] [place] [address] [facility] [id number][place] [id number] Jun, [facility] [place] [facility] [address] [facility] [id number] [place] [address] Jun, [facility] [place] [address] [id number][place] [id number] Jun, [facility] [place] [facility] [address] [facility] [id number], [place] [address] Jun, [facility] [address] [facility] [id number], [place] [address] Jun, [facility] [address] [facility] [id number] [place] [address] Jun, [facility] [place] [address] [id number] [place] [id number] Apr, [facility] [place] [address] [id number] [place] [id number] Mar, [facility] [place] [address] [id number] [place] [id number] Mar, [facility] [place] [address] [id number] [place] [id number] Feb, [facility] [place] [address] [id number] [place] [id number] Feb, [facility] [place] [address] [id number] [place] [id number] Feb, [facility] [place] [address] [id number] [place] [address] December, [facility] [place] [address] [id number] [place] [id number] December, [facility] [address] [facility] [id number], [place] [address] December, [facility] [place] [address] [id number] [place] [id number] December, [facility] [place] [address] [id number] [place] [address] December, [facility] [place] [address] [id number] [place] [address] Nov, [facility] [place] [address] [id number] [place] [id number] Nov, [facility] [place] [address] [id number] [place] [id number] Nov, [facility] [place] [address] [id number] [place] [id number] Oct, [facility] [place] [address] [id number] [place] [id number] Sep, [facility] [place] [address] [id number] [place] [address] Aug, [facility] [address] [id number], [place] [address] Aug, [facility] [place] [address] [id number][place] [id number] Aug, [facility] [place] [address] [id number][place] [id number] Jul, [facility] [address] [facility] [id number], [place] [address] Jul, [facility] [place] [address] [id number][place] [id number] Jul, [facility] [address]00565100[place], [place] [address] Jul, [facility] [place] [address] [id number], [place] [id number] Jun, [facility] [address] [facility] [id number], [place] [address] Jun, [facility] [place] [address] [facility] [id number][place] [id number] May, [facility] [address] [facility] [id number], [place] [address] May, [facility] [address] [id number], [place] [address] May, [facility] [place] [facility] [address] [facility] [id number], [place] [address] May, [facility] [address] [id number], [place] [id number] Apr, [facility] [address] [id number], [place] [address]30[address] Apr, [facility] [address] [id number], [place] [id number] Mar, [facility] [place] [address] [id number] [place] [id number] Mar, [facility] [place] [address] [id number] [place] [id number] Feb, [facility] [place] [address] [id number] [place] [address] Feb, [facility] [place] [address] [id number] [place] [id number] Jan, [facility] [place] [address] [id number] [place] [id number] Jan, [facility] [place] [address] [id number] [place] [id number] Jan, [facility] [place] [address] [id number] [place] [address]39[address] Jan, [facility] [place] [address] [id number] [place] [id number] December, [facility] [place] [address] [id number] [place] [address] December, [facility] [place] [facility] [address] [facility] [id number], [place] [address] Nov, [facility] [place] [address] [id number] [place] [id number] Nov, [facility] [place] [address] [id number] [place] [address] Nov, [facility] [place] [address] [id number] [place] [id number] Nov, [facility] [place] [address] [id number] [place] [address] Nov, [facility] [place] [facility] [address] [facility] [id number], [place] [address] Oct, [facility] [place] [facility] [address] [facility] [id number], [place] [address] Oct, [facility] [place] [address] [id number] [place] [id number] Oct, [facility] [place] [address] [id number] [place] [address] Oct, [facility] [place] [address] [id number] [place] [address] Oct, [facility] [place] [address] [id number] [place] [address] Oct, [facility] [place] [address] [id number] [place] [id number] Oct, [facility] [place] [address] [id number] [place] [id number] Oct, [facility] [place] [address] [id number] [place] [address] Oct, [facility] [place] [facility] [address] [id number] [place] [address] Oct, [facility] [place] [address] [id number] [place] [address] Sep, [facility] [place] [address] [id number] [place] [id number] Sep, [facility] [place] [address] [id number] [place] [id number] Aug, [facility] [place] [address] [id number] [place] [id number] Aug, [facility] [place] [facility] [address]00565100[place], [place] [address] Jul, [facility] [place] [facility] [address]65100[place], [place] [address] Jul, [facility] [place] [facility] [address]65100[place], [place] [address] Jul, [facility] [place] [facility] [address] [id number], [place] [address] Jul, [facility] [place] [facility] [address] [id number], [place] [address] Jul, [facility] [place] [facility] [address] [id number], [place] [address] Jul, [facility] [place] [facility] [address]00565100[place], [place] [address] Jul, [facility] [address] [id number], [place] [address] Jul, [facility] [address]00565100[place], [place] [address] Jul, [facility] [id number], [place] [address] Jul, [facility] [id number] [place] [address] Jul, [facility] [id number] [place] [address] Jul, [facility] [id number] [place] [address] Jul, [facility] [address], [place] [address] Jul, IMMUNIZATIONS No Known Immunizations SOCIAL HISTORY Never Assessed REASON FOR VISIT EMR-[facility] PLAN OF CARE VITAL SIGNS MEDICATIONS Unknown [...] failure--2010. 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
--- OUTSIDE RECORDS SUMMARY | 2019-04-03 06:38 | XMS REPORT ---
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 Active 521275114 Problem 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 Active 738247678 Problem Type 2 diabetes mellitus with diabetic polyneuropathy E11.42 Active 356168534 Problem Hypercholesterolemia E78.0 Active 22243307 Problem Fatigue, unspecified type R53.83 Active 35297387 Problem Personal history of carotid stenosis Z86.79 Active 674817977 Problem Uses walker Z99.89 Active 942410754 Problem Chronic obstructive pulmonary disease, unspecified COPD type J44.9 Active 19846399 Problem Aphasia R47.01 Active 04639707 Problem Peripheral vascular disease I73.9 Active 866206802 Problem Type 2 diabetes mellitus with diabetic neuropathy E11.40 Active 05590799 Problem S/P coronary artery stent placement Z95.5 Active 553462328 Problem CKD (chronic kidney disease), stage 3 (moderate) N18.3 Active 564063729 Problem Essential hypertension I10 Active 23953490 Problem GERD without esophagitis K21.9 Active 759710198 Problem Type 2 diabetes mellitus with diabetic peripheral angiopathy without gangrene E11.51 Active 642524843 Problem CKD (chronic kidney disease) stage 3, GFR 30-59 ml/min N18.3 Active 055962736 Problem Type 2 diabetes mellitus with foot ulcer E11.621 Active 989319423 Problem Chronic kidney disease, unspecified N18.9 Active 359492666 Problem Depression F32.9 Active 03015593 Problem Mixed hyperlipidemia E78.2 Active 908321101 Problem Insulin long-term use Z79.4 Active 276748933 Problem Obesity (BMI 30.0-34.9) E66.9 Active 983762489142702 Problem Coronary artery disease involving false pass coronary artery of false pass heart without angina pectoris I25.10 Active 3960068714741 Problem Frequent falls R29.6 Active 788235052 Problem Hyperlipidemia, unspecified hyperlipidemia E78.5 Active 82263125 Problem Chronic diarrhea K52.9 Active 099860377 Problem Other chronic pain G89.29 Active 53943914 Problem Full incontinence of feces R15.9 Active 468854144696012 Problem Major depressive disorder, single episode, mild F32.0 Active 59074239 Problem Chronic pain syndrome G89.4 Active 535653620 Problem Ulcer of left foot, unspecified ulcer stage L97.529 Active 32724087 Problem High risk medication use Z79.899 Active 697594802 Problem Osteomyelitis of right foot, unspecified chronicity M86.9 Active 40157672 Problem Pain in left shoulder M25.512 Active 95339661 Problem Diabetes type 2, uncontrolled E11.65 Active 021202316 Problem Fecal urgency R15.2 Active 01414214 Problem Functional diarrhea K59.1 Active 04694250 Problem Type 2 diabetes mellitus with diabetic retinopathy, macular edema presence unspecified, with unspecified retinopathy severity E11.319 Active 10947554 Problem Mixed stress and urge urinary incontinence N39.46 Active 515198971 Problem Chronic fatigue R53.82 Active 04630162 ALLERGIES No Information ENCOUNTERS Encounter Location Date Diagnosis [facility] [address] [address] Nov, [place] [id number] [place] [address] [id number] Nov, [place] [id number] [place] [address] [id number] Oct, Bilateral low back pain without sciatica M54.5 [place] [id number] [place] [address] [id number] Oct, [facility] [address] [address] Oct, [place] [id number] [place] [address] [id number] Sep, Other chronic pain G89.29 and Diabetes type 2, uncontrolled E11.[address] [id number] Sep, Type 2 diabetes mellitus with diabetic neuropathy E11.40 ; Atherosclerosis of false pass artery of both lower extremities, with unspecified presence of clinical manifestation I70.203 and Ulcer of left foot, unspecified ulcer stage L97.529 [facility] [id number] [place] [address] [id number] Sep, Bilateral low back pain without sciatica M54.5 [facility] [address] [id number] [place] [address] [id number] Aug, Bilateral low back pain without sciatica M54.5 [facility] [id number] [place] [address] [id number] Aug, [facility] [address] [place] [address] [id number] Aug, Essential hypertension I10 [facility] [id number] [place] [address] [id number] Aug, [facility] [address] [id number] [place] [address] [id number] Jul, [facility] [id number] [place] [address] [id number] Jul, Bilateral low back pain without sciatica M54.5 [facility] [id number] [place] [address] [id number] Jul, Hyperlipidemia, unspecified hyperlipidemia E78.5 [facility] [id number] [place] [address] [id number] Jul, [facility] [id number] [place] [address] [id number] Jul, Type 2 diabetes mellitus with diabetic neuropathy E11.40 [facility] [id number] [place] [address] [id number] Jun, [facility] [id number] [place] [address] [id number] Jun, Bilateral low back pain without sciatica M54.5 [facility] [id number] [place] [address] [id number] Jun, Chronic fatigue R53.82 [facility] [address] [id number] [place] [address] [id number] Jun, Type 2 diabetes mellitus with diabetic polyneuropathy E11.42 and Bilateral low back pain without sciatica M54.5 [facility] [id number] [place] [address] [id number] May, Other chronic pain G89.29 [facility] [id number], [place] [id number] May, Diabetes type 2, uncontrolled E11.65 [facility] [id number] [address] 16 May, 2018 Type 2 diabetes mellitus with diabetic neuropathy E11.40 ; Coronary artery disease involving false pass coronary artery of false pass heart without angina pectoris I25.10 and Major depressive disorder, single episode, mild F32.0 [facility] [id number], [place] [id number] May, [facility] [id number], [place] [id number] May, [facility] [id number] [place] [address] [id number] May, [facility] [id number] [place] [address] [id number] Apr, Other chronic pain G89.29 [place] [id number] [facility] [id number] [phone] Apr, [facility] [id number], [place] [id number] Apr, Essential hypertension I10 [facility] [id number], [place] [id number] Mar, Other chronic pain G89.29 [facility] [address] [facility] [id number][place] [id number] Mar, [facility] [id number] [place] [address] [id number] Feb, Other chronic pain G89.29 [facility] [id number], [place] [id number] Feb, Diabetes type 2, uncontrolled E11.65 ; Type 2 diabetes mellitus with diabetic retinopathy, macular edema presence unspecified, with unspecified retinopathy severity E11.319 and Bilateral low back pain without sciatica M54.5 [facility] [address] [id number] [place] [address] [id number] Feb, [facility] [address] [id number] [place] [address] [id number] Feb, Diabetes type 2, uncontrolled E11.65 [facility] [address] [place] [id number] [place] [address] [id number] Feb, Other chronic pain G89.29 [facility] [id number] [place] [address] [id number] Jan, [facility] [address] [id number] [place] [id number] Jan, [facility] [id number] [place] [address] [id number] Jan, [facility] [id number] [place] [address] [id number] Jan, Other chronic pain G89.29 [facility] [id number] [place] [address] [id number] December, Mixed stress and urge urinary incontinence N39.46 [facility] [address] [place] [id number] [place] [address] [id number] December, Chronic fatigue R53.82 [facility] [address] [place] [address] [id number] [place] [address] [id number] December, Other chronic pain G89.29 [facility] [id number] [place] [address] [id number] December, Diabetes type 2, uncontrolled E11.65 ; [...] pain G89.29 [facility] [address]00565100[place] [address] December, [place] [id number] [place] [address] [id number] December, Medicare annual wellness visit, subsequent Z00.00 ; Type 2 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 ; Chronic obstructive pulmonary disease, unspecified COPD type J44.9 ; Depression F32.9 ; Peripheral vascular disease I73.9 ; Coronary artery disease involving false pass coronary artery of false pass heart without angina pectoris I25.10 ; Hypercholesterolemia E78.0 ; GERD without esophagitis K21.9 and Chronic kidney disease, unspecified N18.9 [place] [address] [place] [address] [id number] December, Mixed stress and urge urinary incontinence N39.46 ; Full incontinence of feces R15.9 ; Fecal urgency R15.2 ; Functional diarrhea K59.1 and Type 2 diabetes mellitus with diabetic neuropathy E11.40 [place] [id number] [place] [address] [id number] Nov, Other chronic pain G89.29 [place] [address] [place] [address] [id number] Oct, [place] [address] [place] [address] [id number] Oct, [place] [address] [place] [address] [id number] Oct, Other chronic pain G89.29 [place] [address] [place] [address] [id number] Sep, Other chronic pain G89.29 [address] [place] [address] [id number] Aug, CKD (chronic kidney disease), stage 3 (moderate) N18.3 ; Anemia, unspecified type D64.9 and Dilated pore of Ly L70.8 [address] [place] [address] [id number] Aug, Other chronic pain G89.29 ; Pain in left shoulder M25.512 ; High risk medication use Z79.899 ; Uses walker Z99.89 ; Diabetes type 2, uncontrolled E11.65 and Depression F32.9 [place] [address] [place] [address] [id number] Aug, Chronic diarrhea K52.9 [place] [address] [place] [address] [id number] Aug, Chronic diarrhea K52.9 ; Type 2 diabetes mellitus with diabetic neuropathy E11.40 ; Diabetes type 2, uncontrolled E11.65 ; Insulin long-term use Z79.4 ; Chronic obstructive pulmonary disease, unspecified COPD type J44.9 ; Chronic pain syndrome G89.4 ; Pain in left shoulder M25.512 ; Uses walker Z99.89 ; S/P coronary artery stent placement Z95.5 ; Mixed hyperlipidemia E78.2 and Essential hypertension I10 [place] [address] [place] [address] [id number] Aug, [address] [id number] Jul, Diabetes type 2, uncontrolled E11.65 [place] [address] [place] [address] [id number] Jul, Diabetes type 2, uncontrolled E11.65 ; Type 2 diabetes mellitus with diabetic neuropathy E11.40 ; Insulin long-term use Z79.4 and Chronic obstructive pulmonary disease, unspecified COPD type J44.9 [address] [place] [address] [id number] Jun, [place] [address] [place] [address] [id number] Jun, Essential hypertension I10 [place] [address] [place] [address] [id number] Jun, Essential hypertension I10 [place] [address] [place] [address] [id number] Jun, Type 2 diabetes mellitus with diabetic neuropathy E11.40 ; Type 2 diabetes mellitus with diabetic polyneuropathy E11.42 ; S/P coronary artery stent placement Z95.5 ; Obesity (BMI 30.0-34.9) E66.9 ; Mixed hyperlipidemia E78.2 ; Frequent falls R29.6 ; Chronic obstructive pulmonary disease, unspecified COPD type J44.9 ; Essential hypertension I10 ; Insulin long-term use Z79.4 and High risk medication use Z79.899 [address] [place] [address] [id number] May, Diarrhea, unspecified type R19.7 ; Type 2 diabetes mellitus with diabetic neuropathy E11.40 ; Chronic obstructive pulmonary disease, unspecified COPD type J44.9 ; S/P coronary artery stent placement Z95.5 ; High risk medication use Z79.899 ; Essential hypertension I10 ; Encounter for administration of vaccine Z23 and Encounter for immunization Z23 [address] [id number][place] [id number] May, Chronic obstructive pulmonary disease, unspecified COPD type J44.9 [address] [place] [address] [id number] May, Type 2 diabetes mellitus with diabetic polyneuropathy E11.42 ; Encounter for immunization Z23 ; Needs flu shot Z23 ; Comprehensive diabetic foot examination, type 2 DM, encounter for E11.9 and Obesity (BMI 30.0-34.9) E66.9 [place] [id number] [place] [address] [id number] May, [place] [address] [place] [address] [id number] Apr, [place] [address] [place] [address] [id number] Apr, Essential hypertension I10 and Aphasia R47.01 [place] [address] [place] [address] [id number] Apr, [place] [address] [place] [address] [id number] Apr, Type 2 diabetes mellitus with diabetic neuropathy E11.40 ; Frequent falls R29.6 ; Essential hypertension I10 ; S/P coronary artery stent placement Z95.5 ; High risk medication use Z79.899 ; Hyperlipidemia, unspecified hyperlipidemia E78.5 ; CKD (chronic kidney disease), stage 3 (moderate) N18.3 ; Pain in left shoulder M25.512 and Chronic obstructive pulmonary disease, unspecified COPD type J44.9 [place] [id number] [place] [address] [id number] Mar, [facility] [address] [place] [id number] [place] [address] [id number] Mar, Type 2 diabetes mellitus with diabetic 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 ; Leg wound, left, initial encounter S81.802A ; Hx of shoulder surgery Z98.890 ; Acute pain of left shoulder M25.512 and Fall, initial encounter W19.XXXA [facility] [address] [place] [address] [id number] [place] [address] [id number] Feb, Follow-up exam Z09 ; Hx of shoulder surgery Z98.890 ; Acute pain of left shoulder M25.512 ; Essential hypertension I10 and Leg wound, left, initial encounter S81.802A [facility] [address] [place] [address] [id number] [place] [address] [id number] Feb, [facility] [address] [place] [id number] [place] [address] [id number] Feb, [facility] [address] [place] [address] [id number] [place] [address] [id number] Feb, Chronic obstructive pulmonary disease, unspecified COPD type J44.9 [facility] [address] [place] [id number] [place] [address] [id number] Feb, [facility] [address] [place] [address] [id number] [place] [address] [id number] Jan, Generalized weakness R53.1 ; Exertional shortness of breath R06.02 and Fungal rash of trunk B36.9 [facility] [address] [place] [address] [id number] [place] [address] [id number] Jan, [facility] [id number] [place] [address] [id number] Jan, [facility] [address] [address] [id number] [place] [address] [id number] Jan, [facility] [address] [id number] [place] [address] [id number] Jan, [facility] [id number] [place] [address] [id number] December, High risk medication use Z79.[address] [id number] [id number] December, Type 2 diabetes mellitus with diabetic neuropathy E11.40 [address] [place] [address] [id number] December, High risk medication use Z79.[address] [id number], [place] [id number] Nov, Diabetes type 2, uncontrolled E11.65 [place] [address] [place] [address] [id number] Nov, Medicare annual wellness visit, initial Z00.00 ; Bilateral low back pain without sciatica M54.5 ; Pain in left shoulder M25.512 ; Chronic pain syndrome G89.4 ; Type 2 diabetes mellitus with diabetic polyneuropathy E11.42 ; High risk medication use Z79.899 and Encounter for immunization Z23 [address] [place] [address] [id number] Nov, Type 2 diabetes mellitus with diabetic neuropathy E11.40 ; Coronary artery disease involving false pass coronary artery of false pass heart without angina pectoris I25.10 and CKD (chronic kidney disease), stage 3 (moderate) N18.3 [address] [place] [address] [id number] Oct, Type 2 diabetes mellitus with diabetic polyneuropathy E11.42 ; Chronic pain syndrome G89.4 ; Chronic obstructive pulmonary disease, unspecified COPD type J44.9 ; Chronic kidney disease, unspecified N18.9 and Rash R21 [place] [address] [facility] [id number][place] [id number] Oct, Type 2 diabetes mellitus with diabetic neuropathy E11.[address] [id number], [place] [id number] Oct, Rash R21 and Impetigo L01.00 [address], [place] [id number] Oct, Chronic pain syndrome G89.[address] [id number], [place] [id number] Oct, [place] [address] [id number] Sep, Sebaceous cyst L72.3 [facility] [id number] [place] [address] [id number] Sep, Sebaceous cyst L72.3 [facility] [address] [place] [id number] [place] [address] [id number] Sep, Chronic pain syndrome G89.4 ; Pain in left shoulder M25.512 and Effusion of olecranon bursa, left M25.422 [facility] [id number], [place] [address] Aug, [facility] [id number] [place] [address] [id number] Aug, [facility] [id number] [place] [address] [id number] Aug, Mixed hyperlipidemia E78.2 and Chronic kidney disease, unspecified N18.9 [facility] [id number] [place] [address] [id number] Jul, Type 2 diabetes mellitus with diabetic neuropathy E11.40 ; Essential hypertension I10 and S/P coronary artery stent placement Z95.5 [place] [address] [place] [id number] [place] [address] [id number] Jul, 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 [facility] [id number] [place] [address] [id number] Jul, Diabetes type 2, uncontrolled E11.65 ; Essential hypertension I10 and 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 [facility] [id number] [place] [address] [id number] Jul, [facility] [id number] [place] [address] [id number] Jul, [facility] [id number] [place] [address] [id number] Jul, [facility] [id number] [place] [address] [id number] Jul, Chronic obstructive pulmonary disease, unspecified COPD type J44.9 [facility] [id number] [place] [address] [id number] Jun, CKD (chronic kidney disease), stage 3 (moderate) N18.3 and Anemia, unspecified type D64.9 [place] [address] [place] [address] [id number] Jun, Type 2 diabetes mellitus with diabetic neuropathy E11.40 ; Decreased GFR R94.4 ; CKD (chronic kidney disease), stage 3 (moderate) N18.3 and Decreased hemoglobin R71.0 [place] [address] [place] [address] [id number] Jun, CKD (chronic kidney disease), stage 3 (moderate) N18.3 and Anemia, unspecified type D64.9 [place] [address] [place] [address] [id number] Jun, Type 2 diabetes mellitus with diabetic neuropathy E11.40 ; Decreased GFR R94.4 and CKD (chronic kidney disease), stage 3 (moderate) N18.3 [place] [address] [place] [address] [id number] Jun, Type 2 diabetes mellitus with diabetic neuropathy E11.40 and Essential hypertension I10 [place] [address] [place] [address] [id number] Jun, [address] [id number] Jun, [place] [address] [place] [address] [id number] Jun, Type 2 diabetes mellitus with diabetic neuropathy E11.40 ; S/P coronary artery stent placement Z95.5 ; Chronic obstructive pulmonary disease, unspecified COPD type J44.9 ; Essential hypertension I10 ; GERD without esophagitis K21.9 ; Peripheral vascular disease I73.9 ; Mixed hyperlipidemia E78.2 and Hospital discharge follow-up Z09 [place] [address] [place] [address] [id number] 07 Jun, [address] [id number] May, 2016 Depression F32.9 and Hyperlipidemia, unspecified hyperlipidemia E78.5 [facility] [id number] [place] [id number] May, [address] [place] [address] [id number] May, [place] [address] [place] [address] [id number] May, Essential hypertension I10 ; Chronic pain syndrome G89.4 ; Pain in left shoulder M25.512 ; High risk medication use Z79.899 ; Chronic obstructive pulmonary disease, unspecified COPD type J44.9 ; S/P coronary artery stent placement Z95.5 ; Personal history of carotid stenosis Z86.79 ; Hyperlipidemia, unspecified hyperlipidemia E78.5 ; Decreased GFR R94.4 and Type 2 diabetes mellitus with diabetic polyneuropathy E11.42 [place] [address] [place] [address] [id number] May, Hemoglobin decreased R71.0 and Decreased GFR R94.4 [place] [address] [place] [address] [id number] May, Hemoglobin decreased R71.0 and Decreased GFR R94.4 [address] [place] [address] [id number] May, [place] [address] [place] [address] [id number] May, [place] [address] [place] [address] [id number] Apr, [address] [place] [address] [id number] Apr, Type 2 diabetes mellitus with foot [...] hyperlipidemia E78.5 and Essential hypertension I10 [address] [place] [address] [id number] Apr, [place] [id number] [id number] Mar, [facility] [id number], [place] [id number] Mar, [facility] [id number] [place] [phone] Mar, [facility] [id number] [place] [address] [id number] Feb, [facility] [id number] [place] [address] [id number] Feb, [facility] [facility] [id number] [place] [address] [id number] Feb, [facility] [id number] [place] [address] [id number] Jan, Type 2 diabetes mellitus with diabetic polyneuropathy E11.42 ; Hypercholesterolemia E78.0 ; Chronic pain syndrome G89.4 ; Pain in left shoulder M25.512 and High risk medication use Z79.899 [facility] [id number], [place] [id number] Jan, [facility] [id number] [place] [address] [id number] Jan, [facility] [id number] [place] [address] [id number] December, [facility] [id number] [place] [address] [id number] December, [place] [id number] [place] [address] December, Diabetes type 2, uncontrolled E11.65 ; Type 2 diabetes mellitus with diabetic neuropathy E11.40 ; Peripheral vascular disease I73.9 ; 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 and 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 [facility] [id number], [place] [id number] Nov, [facility] [id number], [place] [id number] Nov, [facility] [id number] [place] [address] [id number] Nov, [facility] [address] [id number], [place] [id number] Nov, Right hip pain M25.551 [facility] [address] [facility] [id number] [place] [address] Nov, [facility] [address] [facility] [id number], [place] [address] Nov, [facility] [address] [id number] [place] [address] [id number] Nov, Diabetes with neurological manifestations, type II or unspecified type, not stated as uncontrolled 250.60 [facility] [id number] [place] [address] [id number] Nov, [facility] [id number] [place] [address] [id number] Nov, [facility] [address] [id number] [place] [address] [id number] Oct, Diabetes type 2, uncontrolled E11.65 ; Type 2 diabetes mellitus with diabetic neuropathy, unspecified E11.40 and Low back pain M54.5 [facility] [address] [id number], [place] [id number] Oct, [facility] [address] [id number], [place] [id number] Oct, [facility] [address] [id number], [place] [id number] Oct, [facility] [address] [id number], [place] [id number] Sep, [facility] [address] [id number], [place] [id number] Sep, [facility] [address] [facility] [id number], [place] [address] Sep, [facility] [address] [id number], [place] [id number] Sep, [facility] [address] [id number], [place] [id number] Sep, [facility] [address] [id number], [place] [id number] Aug, 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 [facility] [id number] [place] [address] [id number] Aug, [facility] [id number] [place] [address] [id number] Aug, Allergic rhinitis due to pollen J30.1 [facility] [address] [place], [place] [address] [id number] [place] [address] [id number] Jul, [facility] [id number] [place] [address] [id number] Jul, [place] [id number] [place] [address] [id number] Jul, [id number] [place] [address] [id number] Jun, [address] [id number] [place] [address] [id number] Jun, Thumb tendonitis M77.8 and Ringing in ear, bilateral H93.13 [facility] [address] [facility] [id number][place] [id number] Jun, [place] [id number] [place] [address] [id number] May, [facility] [id number] [place] [address] May, [facility] [id number] [place] [address] May, Pre-op evaluation Z01.818 ; Encounter for immunization Z23 ; Type 2 diabetes mellitus with diabetic peripheral angiopathy without gangrene E11.51 ; Insulin long-term use Z79.4 ; Type 2 diabetes mellitus with foot ulcer E11.621 ; Peripheral vascular disease I73.9 ; Coronary artery disease involving false pass coronary artery of false pass heart without angina pectoris I25.10 ; S/P coronary artery stent placement Z95.5 ; Osteomyelitis of right foot, unspecified chronicity M86.9 and Chronic obstructive pulmonary disease, unspecified COPD type J44.9 [facility] [address] [id number], [place] [address] May, [facility] [id number] [place] [address] [id number] May, [facility] [id number] [place] [address] [id number] May, Diabetes type 2, uncontrolled E11.65 ; Encounter for immunization Z23 ; Osteopenia M85.80 and Allergic rhinitis due to pollen J30.1 [facility] [id number] [place] [address] [id number] May, Lumbago 724.2 [place] [id number] [place] [address] [id number] Apr, [place] [id number] [place] [address] [id number] Apr, [facility] [id number] [place] [address] [id number] Apr, [facility] [id number] [place] [address] [id number] Apr, [facility] [id number] [place] [address] Mar, [facility] [id number] [place] [address] [id number] Mar, [facility] [id number] [place] [address] [id number] Mar, [facility] [id number] [place] [address] [id number] Mar, [facility] [id number] [place] [address] [id number] Mar, [facility] [id number] [place] [id number] Mar, [facility] [id number] [place] [address] [id number] Mar, [facility] [id number] [place] [address] [id number] Mar, Diabetes with neurological manifestations, type II or unspecified type, not stated as uncontrolled 250.60 and Severe obesity (BMI 35.0-35.9 with comorbidity) 278.01 [facility] [id number], [place] [id number] Mar, [facility] [id number] [place] [phone] Mar, [facility] [id number] [place] [address] Feb, [facility] [id number], [place] [id number] Feb, [facility] [id number] [place] [address] [id number] Feb, [facility] [id number] [place] [address] [id number] Feb, Diabetes with neurological manifestations, type II or unspecified type, not stated as uncontrolled 250.60 [facility] [id number] [place] [address] [id number] Feb, [facility] [address]00565100[place], [place] [address] Feb, [facility] [id number], [place] [id number] Feb, [facility] [id number] [place] [address] [id number] Feb, Follow up V67.9 ; Diabetes with neurological manifestations, type II or unspecified type, not stated as uncontrolled 250.60 and Congestive heart failure 428.0 [facility] [id number], [place] [id number] Jan, [facility] [id number], [place] [id number] Jan, [facility] [id number] [place] [address] [id number] Jan, [facility] [id number] [place] [address] [id number] December, Otitis media with effusion 381.4 ; Left arm numbness 782.0 and Osteoporosis 733.00 [facility] [address] [id number], [place] [id number] December, [facility] [address] [facility] [id number], [place] [id number] Nov, [facility] [address] [facility] [id number], [place] [id number] Nov, Serous otitis media 381.4 and Lumbago 724.2 [facility] [place] [facility] [address] [id number], [place] [address] Nov, [facility] [place] [facility] [address]00565100[place], [place] [address] Nov, [facility] [id number], [place] [id number] Oct, [facility] [place] [facility] [address]00565100[place], [place] [address] Oct, [facility] [id number], [place] [id number] Oct, [facility] [place] [address]00565100[place], [place] [address] Oct, [facility] [address] [id number], [place] [id number] Oct, [facility] [place] [address]00565100[place], [place] [address] Oct, [facility] [place] [address]00565100[place], [place] [address] Sep, [facility] [place] [facility] [address] [id number], [place] [address] Sep, [facility] [address] [id number], [place] [id number] Sep, [facility] [place] [facility] [address]00565100[place], [place] [address] Sep, [facility] [address] [id number], [place] [id number] Aug, [facility] [place] [facility] [address]00565100[place], [place] [address] Aug, [facility] [address] [id number] [place] [id number] Aug, [facility] [place] [facility] [address] [facility] [id number], [place] [address] Aug, [facility] [address] [id number] [place] [id number] Jul, [facility] [address] [facility] [id number], [place] [address] Jul, [facility] [address] [id number] [place] [id number] Jul, [facility] [address] [facility] [id number], [place] [address] Jul, [facility] [address] [facility] [id number], [place] [id number] Jul, [facility] [place] [address] [facility] [id number], [place] [address] Jul, [facility] [address] [id number], [place] [id number] Jun, [facility] [address] [facility] [id number], [place] [address] Jun, [facility] [address] [facility] [id number], [place] [id number] May, [facility] [place] [facility] [address] [facility] [id number], [place] [address] May, [facility] [address] [id number], [place] [id number] May, [facility] [address] [facility] [id number], [place] [address] May, [facility] [address] [id number], [place] [id number] May, [facility] [facility] [address] [facility] [id number], [place] [address] May, [facility] [address] [id number], [place] [id number] May, [facility] [address] [id number] [place] [id number] May, [facility] [place] [facility] [address] [facility] [id number] [place] [address] May, [facility] [place] [facility] [address] [facility] [id number] [place] [address] May, [facility] [address] [id number] [place] [id number] May, [facility] [place] [facility] [address] [facility] [id number] [place] [address] May, [facility] [place] [facility] [address] [facility] [id number] [place] [address] Apr, [facility] [address] [facility] [id number], [place] [id number] Apr, [facility] [place] [facility] [address] [facility] [id number], [place] [address] Apr, [facility] [address] [id number], [place] [id number] Apr, [facility] [address] [id number], [place] [id number] Apr, [facility] [place] [facility] [address] [facility] [id number], [place] [address] Apr, [facility] [place] [facility] [address] [facility] [id number], [place] [address] Apr, [facility] [address] [id number], [place] [id number] Apr, [facility] [place] [facility] [address] [facility] [id number], [place] [address] Apr, [facility] [address] [facility] [id number], [place] [id number] Apr, [facility] [place] [facility] [address] [facility] [id number], [place] [address] Apr, [facility] [address] [id number] [place] [id number] Apr, [facility] [place] [facility] [address] [id number] [place] [address] Apr, [facility] [address] [id number] [place] [id number] Apr, [facility] [place] [facility] [address] [facility] [id number], [place] [address] Apr, [facility] [address] [id number] [place] [id number] Apr, [facility] [place] [facility] [address] [id number], [place] [address] Apr, [facility] [address] [id number] [place] [id number] Apr, [facility] [place] [facility] [address] [facility] [id number], [place] [address] Apr, [facility] [address] [id number], [place] [id number] Mar, [facility] [place] [facility] [address] [facility] [id number], [place] [address] Mar, [facility] [address] [id number], [place] [id number] Mar, [facility] [address] [id number], [place] [id number] Mar, [facility] [place] [facility] [address] [facility] [id number], [place] [address] Mar, [facility] [place] [facility] [address] [facility] [id number], [place] [address] Mar, [facility] [address] [id number], [place] [id number] Mar, [facility] [place] [facility] [address] [facility] [id number], [place] [address] Mar, [facility] [address] [id number] [place] [id number] Mar, [facility] [place] [facility] [address] [facility] [id number] [place] [address] Mar, [facility] [address] [id number] [place] [id number] Mar, [facility] [place] [facility] [address] [facility] [id number] [place] [address] Mar, [facility] [address] [id number] [place] [id number] Mar, [facility] [place] [facility] [address] [facility] [id number] [place] [address] Mar, [facility] [address] [id number] [place] [id number] Mar, [facility] [place] [facility] [address] [facility] [id number] [place] [address] Mar, [facility] [address] [id number] [place] [id number] Mar, [facility] [place] [facility] [address] [facility] [id number], [place] [address] Mar, [facility] [address] [id number] [place] [id number] Mar, [facility] [place] [facility] [address] [facility] [id number], [place] [address] Mar, [facility] [address] [id number] [place] [id number] Feb, [facility] [place] [facility] [address] [facility] [id number], [place] [address] Feb, [facility] [address] [id number] [place] [id number] Feb, [facility] [place] [facility] [address] [facility] [id number] [place] [address] Feb, [facility] [address] [id number] [place] [id number] Feb, [facility] [place] [facility] [address] [facility] [id number] [place] [address] Feb, [facility] [address] [id number] [place] [id number] Feb, [facility] [place] [facility] [address] [id number] [place] [address] Feb, [facility] [address] [id number] [place] [id number] Feb, [facility] [place] [facility] [address] [id number] [place] [address] Feb, [facility] [address] [id number] [place] [id number] Feb, [facility] [place] [facility] [address] [id number] [place] [address] Feb, [facility] [address] [id number] [place] [id number] Feb, [facility] [place] [facility] [address] [facility] [id number] [place] [address] Feb, [facility] [address] [id number] [place] [id number] Feb, [facility] [place] [facility] [address] [facility] [id number] [place] [address] Feb, [facility] [address] [id number] [place] [id number] Feb, [facility] [place] [facility] [address] [facility] [id number] [place] [address] Feb, [facility] [address] [id number] [place] [id number] Feb, [facility] [address] [id number] [place] [id number] Feb, [facility] [place] [facility] [address] [id number] [place] [address] Feb, [facility] [place] [facility] [address] [facility] [id number] [place] [address] Feb, [facility] [address] [id number] [place] [id number] Feb, [facility] [place] [facility] [address] [facility] [id number], [place] [address] Feb, [facility] [address] [id number] [place] [id number] Feb, [facility] [place] [facility] [address] [facility] [id number], [place] [address] Feb, [facility] [address] [id number] [place] [id number] Feb, [facility] [place] [facility] [address] [facility] [id number], [place] [address] Feb, [facility] [address] [id number] [place] [id number] Jan, [facility] [place] [facility] [address] [facility] [id number], [place] [address] Jan, [facility] [place] [facility] [address] [facility] [id number], [place] [address] Jan, [facility] [place] [facility] [address] [facility] [id number], [place] [address] Jan, [facility] [place] [facility] [address] [facility] [id number], [place] [address] Jan, [facility] [place] [facility] [address] [facility] [id number], [place] [address] Jan, [facility] [address] [facility] [id number], [place] [id number] Jan, [facility] [place] [facility] [address] [facility] [id number], [place] [address] Jan, [facility] [place] [facility] [address] [facility] [id number], [place] [address] Jan, [facility] [place] [facility] [address] [facility] [id number], [place] [address] Jan, [facility] [address] [id number] [place] [id number] Jan, [facility] [address] [id number] [place] [id number] Jan, [facility] [place] [facility] [address] [id number] [place] [address] Jan, [facility] [place] [facility] [address] [id number] [place] [address] Jan, [facility] [address] [id number] [place] [id number] Jan, [facility] [address] [facility] [id number] [place] [id number] Jan, [facility] [place] [facility] [address] [id number] [place] [address] Jan, [facility] [place] [facility] [address] [id number] [place] [address] Jan, [facility] [place] [facility] [address] [facility] [id number] [place] [address] Jan, [facility] [address] [facility] [id number][place] [id number] December, [facility] [place] [facility] [address] [facility] [id number] [place] [address] December, [facility] [place] [facility] [address] [facility] [id number] [place] [address] December, [facility] [address] [facility] [id number][place] [id number] December, [facility] [place] [facility] [address] [facility] [id number], [place] [address] December, [facility] [address] [facility] [id number][place] [id number] December, [facility] [place] [facility] [address] [id number], [place] [address] December, [facility] [address] [facility] [id number][place] [id number] December, [facility] [place] [facility] [address] [facility] [id number] [place] [address] December, [facility] [address] [facility] [id number][place] [id number] Nov, [facility] [place] [facility] [address] [facility] [id number] [place] [address] Nov, [facility] [address] [facility] [id number][place] [id number] Nov, [facility] [place] [facility] [address] [facility] [id number] [place] [address] Nov, [facility] [place] [facility] [address] [facility] [id number], [place] [address] Nov, [facility] [place] [facility] [address] [facility] [id number] [place] [address] Nov, [facility] [place] [facility] [address] [facility] [id number], [place] [address] Oct, [facility] [address] [id number][place] [id number] Oct, [facility] [address] [id number], [place] [address] Oct, [facility] [address] [facility] [id number][place] [id number] Oct, [facility] [address] [id number], [place] [address] Oct, [facility] [address] [facility] [id number][place] [id number] Sep, [facility] [place] [facility] [address] [facility] [id number], [place] [address] Sep, [facility] [address] [facility] [id number][place] [id number] Aug, [facility] [place] [facility] [address] [facility] [id number], [place] [address] Aug, [facility] [address] [facility] [id number][place] [id number] Aug, [facility] [place] [facility] [address] [facility] [id number], [place] [address] Aug, [facility] [place] [facility] [address] [id number], [place] [address] Aug, [facility] [address] [facility] [id number] [place] [id number] Aug, [facility] [place] [facility] [address] [facility] [id number] [place] [address] Aug, [facility] [address] [id number] [place] [address] Aug, [facility] [address] [facility] [id number][place] [id number] Aug, [facility] [place] [facility] [address] [facility] [id number], [place] [address] Aug, [facility] [address] [id number] [place] [id number] Jul, [facility] [id number], [place] [address] Jul, [facility] [address] [id number][place] [id number] Jul, [facility] [address] [id number], [place] [address] Jul, [facility] [address] [id number][place] [id number] Jul, [facility] [place] [facility] [address] [id number], [place] [address] Jul, [facility] [address] [facility] [id number][place] [id number] Jul, [facility] [place] [facility] [address] [facility] [id number], [place] [address] Jul, [facility] [address] [facility] [id number][place] [id number] Jun, [facility] [place] [facility] [address] [facility] [id number] [place] [address] Jun, [facility] [address] [id number][place] [id number] Jun, [facility] [place] [facility] [address] [facility] [id number], [place] [address] Jun, [facility] [address] [facility] [id number], [place] [address] Jun, [facility] [address] [facility] [id number] [place] [address] Jun, [facility] [address] [id number] [place] [id number] Apr, [facility] [address] [id number] [place] [id number] Mar, [facility] [address] [id number] [place] [id number] Mar, [facility] [address] [id number] [place] [id number] Feb, [facility] [address] [id number] [place] [id number] Feb, [facility] [address] [id number] [place] [id number] Feb, [facility] [address] [id number] [place] [id number] December, [facility] [address] [id number] [place] [id number] December, [facility] [address] [facility] [id number], [place] [address] December, [facility] [address] [id number] [place] [id number] December, [facility] [address] [id number] [place] [id number] December, [facility] [address] [id number] [place] [id number] Nov, [facility] [address] [id number] [place] [id number] Nov, [facility] [address] [id number] [place] [id number] Nov, [facility] [address] [id number] [place] [id number] Oct, [facility] [address] [id number] [place] [id number] Sep, [facility] [address] [id number] [place] [id number] Aug, [facility] [address] [id number], [place] [address] Aug, [facility] [address] [id number], [place] [id number] Aug, [facility] [address] [id number][place] [id number] Jul, [facility] [address] [facility] [id number], [place] [address] Jul, [facility] [address] [id number], [place] [id number] Jul, [facility] [address], [place] [address] Jul, [facility] [address] [id number][place] [id number] Jun, [facility] [address] [facility] [id number], [place] [address] Jun, [facility] [address] [facility] [id number][place] [id number] May, [facility] [address] [facility] [id number], [place] [address] May, [facility] [address] [id number], [place] [id number] May, [facility] [place] [facility] [address] [facility] [id number], [place] [address] May, [facility] [address] [id number][place] [id number] Apr, [facility] [address] [id number], [place] [id number] Apr, [facility] [address] [id number], [place] [id number] Mar, [facility] [address] [id number] [place] [id number] Mar, [facility] [address] [id number] [place] [id number] Feb, [facility] [address] [id number] [place] [id number] Feb, [facility] [place] [address] [id number] [place] [id number] Jan, [facility] [address] [id number] [place] [id number] Jan, [facility] [address] [id number] [place] [id number] Jan, [facility] [address] [id number] [place] [id number] Jan, [facility] [address] [id number] [place] [id number] December, [facility] [address] [id number] [place] [id number] December, [facility] [place] [facility] [address] [facility] [id number], [place] [address] Nov, [facility] [address] [id number] [place] [id number] Nov, [facility] [address] [id number] [place] [id number] Nov, [facility] [address] [id number] [place] [id number] Nov, [facility] [address] [id number] [place] [id number] Nov, [facility] [place] [facility] [address] [facility] [id number], [place] [address] Oct, [facility] [place] [facility] [address] [facility] [id number], [place] [address] Oct, [facility] [address] [id number] [place] [id number] Oct, [facility] [address] [id number] [place] [id number] Oct, [facility] [address] [id number] [place] [id number] Oct, [facility] [address] [id number] [place] [id number] Oct, [facility] [address] [id number] [place] [address] Oct, [facility] [address] [id number] [place] [id number] Oct, [facility] [address] [id number] [place] [id number] Oct, [facility] [place] [facility] [address] [id number] [place] [address] Oct, [facility] [address] [id number] [place] [id number] Sep, [facility] [address] [id number] [place] [id number] Sep, [facility] [place] [address] [id number] [place] [id number] Aug, [facility] [address] [id number] [place] [id number] Aug, [facility] [place] [facility] [address], [place] [address] Jul, [facility] [place] [facility] [address], [place] [address] Jul, [facility] [place] [facility] [address], [place] [address] Jul, [facility] [place] [facility] [address] [id number], [place] [address] Jul, [facility] [place] [facility] [address] [id number], [place] [address] Jul, [facility] [place] [facility] [address] [id number], [place] [address] Jul, [facility] [place] [facility] [address], [place] [address] Jul, [facility] [address] [facility] [id number], [place] [address] Jul, [facility] [address] [id number], [place] [address] Jul, [facility] [address] [facility] [id number], [place] [address] Jul, [facility] [address], [place] [address] Jul, [facility] [address] [id number], [place] [address] Jul, [facility] [address], [place] [address] Jul, [facility] [address] [id number], [place] [address] Jul, IMMUNIZATIONS No Known Immunizations SOCIAL HISTORY Never Assessed REASON FOR VISIT [facility] [place] VITAL SIGNS MEDICATIONS Medication Instructions Dosage Frequency Start Date End Date Duration Status Azithromycin 250 mg 2 Tablet by Oral route on day 1 then take 1 daily for 4 days Jul, Active Bactrim DS 800-160 mg 1 tablet by Oral route 2 times per day for 7 day(s) December, Active Lexapro 10 mg 1 tablet by Oral route 1 time per day Oct, Active Ampicillin 500 mg 1 capsule by Oral route 4 times per day for 10 days December, Active Bydureon 2 mg/0.65 mL 2 Mg by Subcutaneous route 1 time per week Oct, Active Protonix 40 mg take 1 tablet by Oral route 1 time per day for acid reflux Aug, Active metformin 1,000 mg take 1 tablet by Oral route with morning and evening meals 2 times per day Jun, Active amlodipine 10 mg 1 tablet by Oral route 1 time per day Oct, Active Cephalexin 500 mg take 1 Capsule by Oral route 3 times per day for 10 days Nov, Active Lyrica 50 mg 2 capsule by Oral route 2 times per day DX 250.40 Oct, Active Symbicort 160-4.5 mcg/actuation inhale 2 puffs by inhalation route 2 times per day in the morning and evening Nov, Active Metoprolol Succinate 200 mg take 1 tablets by Oral route 2 times per day 1 tablet in AM and 0.5 tab in PM Aug, Active Bactroban 2 % 1 homer by Topical route 2 times per day for 14 day(s) Nov, Active ProAir HFA 90 mcg/actuation inhale 2 puffs by Inhalation route every 4 hours as needed PRN shortness of breath/cough Jul, Active RESULTS No Results PROCEDURES No Known procedures INSTRUCTIONS MEDICATIONS ADMINISTERED No Known Medications MEDICAL (GENERAL) HISTORY Type Description Date Medical History peripheral vascular disease s/p angioplasty w/ stent R leg Medical History hypertension Medical 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2014 Surgical History heart cath [...]
--- OUTSIDE RECORDS SUMMARY | 2019-04-03 06:39 | XMS REPORT ---
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 Active 018753339 Problem 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 Active 695369389 Problem Type 2 diabetes mellitus with diabetic polyneuropathy E11.42 Active 134728099 Problem Hypercholesterolemia E78.0 Active 04986938 Problem Fatigue, unspecified type R53.83 Active 10173255 Problem Personal history of carotid stenosis Z86.79 Active 911689886 Problem Uses walker Z99.89 Active 280300871 Problem Chronic obstructive pulmonary disease, unspecified COPD type J44.9 Active 91050114 Problem Aphasia R47.01 Active 56499556 Problem Peripheral vascular disease I73.9 Active 538489738 Problem Type 2 diabetes mellitus with diabetic neuropathy E11.40 Active 63976061 Problem S/P coronary artery stent placement Z95.5 Active 495702373 Problem CKD (chronic kidney disease), stage 3 (moderate) N18.3 Active 267695705 Problem Essential hypertension I10 Active 28116144 Problem GERD without esophagitis K21.9 Active 490948454 Problem Type 2 diabetes mellitus with diabetic peripheral angiopathy without gangrene E11.51 Active 206675122 Problem CKD (chronic kidney disease) stage 3, GFR 30-59 ml/min N18.3 Active 616139112 Problem Type 2 diabetes mellitus with foot ulcer E11.621 Active 340086556 Problem Chronic kidney disease, unspecified N18.9 Active 699881890 Problem Depression F32.9 Active 42103714 Problem Mixed hyperlipidemia E78.2 Active 983985343 Problem Insulin long-term use Z79.4 Active 836781698 Problem Obesity (BMI 30.0-34.9) E66.9 Active 289762617778249 Problem Coronary artery disease involving algaaciq coronary artery of algaaciq heart without angina pectoris I25.10 Active 7144098214313 Problem Frequent falls R29.6 Active 406194434 Problem Hyperlipidemia, unspecified hyperlipidemia E78.5 Active 05268429 Problem Chronic diarrhea K52.9 Active 380458509 Problem Other chronic pain G89.29 Active 52789770 Problem Full incontinence of feces R15.9 Active 674418427737434 Problem Major depressive disorder, single episode, mild F32.0 Active 24177513 Problem Chronic pain syndrome G89.4 Active 589157779 Problem Ulcer of left foot, unspecified ulcer stage L97.529 Active 54461113 Problem High risk medication use Z79.899 Active 636482758 Problem Osteomyelitis of right foot, unspecified chronicity M86.9 Active 55745909 Problem Pain in left shoulder M25.512 Active 16190996 Problem Diabetes type 2, uncontrolled E11.65 Active 984005538 Problem Fecal urgency R15.2 Active 22755090 Problem Functional diarrhea K59.1 Active 98537410 Problem Type 2 diabetes mellitus with diabetic retinopathy, macular edema presence unspecified, with unspecified retinopathy severity E11.319 Active 60217823 Problem Mixed stress and urge urinary incontinence N39.46 Active 741922890 Problem Chronic fatigue R53.82 Active 83862904 ALLERGIES No Information ENCOUNTERS Encounter Location Date Diagnosis [place] [id number] [address] 05 Nov, 2018 [facility] [id number] [place] [address] [id number] Nov, [facility] [address] [id number] Oct, [facility] [id number] [place] [address] Oct, [facility] [id number] [place] [address] [id number] Sep, Other chronic pain G89.29 and Diabetes type 2, uncontrolled E11.65 [facility] [address] [id number] Sep, Type 2 diabetes mellitus with diabetic neuropathy E11.40 ; Atherosclerosis of algaaciq artery of both lower extremities, with unspecified presence of clinical manifestation I70.203 and Ulcer of left foot, unspecified ulcer stage L97.529 [facility] [place] [address] [id number] [id number] Sep, Bilateral low back pain without sciatica M54.5 [facility] [place] [address] [id number] [place] [id number] Aug, Bilateral low back pain without sciatica M54.5 [facility] [id number] [place] [address] [id number] Aug, [facility] [id number] [place] [address] [id number] Aug, Essential hypertension I10 [facility] [place] [address] [id number] [place] [address] [id number] Aug, [facility] [place] [address] [id number] [place] [address] [id number] Jul, [facility] [place] [id number] [place] [address] [id number] Jul, Bilateral low back pain without sciatica M54.5 [facility] [place] [id number] [place] [address] [id number] Jul, Hyperlipidemia, unspecified hyperlipidemia E78.5 [facility] [place] [address] [id number] [place] [address] [id number] Jul, [facility] [place] [id number] [place] [address] [id number] Jul, Type 2 diabetes mellitus with diabetic neuropathy E11.40 [facility] [place] [id number] [place] [address] [id number] Jun, [facility] [place] [id number] [place] [address] [id number] Jun, Bilateral low back pain without sciatica M54.5 [facility] [place] [id number] [place] [address] [id number] Jun, Chronic fatigue R53.82 [facility] [place] [id number] [place] [address] [id number] Jun, Type 2 diabetes mellitus with diabetic polyneuropathy E11.42 and Bilateral low back pain without sciatica M54.5 [facility] [address] [id number][place] [id number] May, Other chronic pain G89.29 [facility] [place] [id number], [place] [id number] May, Diabetes type 2, uncontrolled E11.65 [facility] [address] [facility] [id number], [place] [address] 16 May, 2018 Type 2 diabetes mellitus with diabetic neuropathy E11.40 ; Coronary artery disease involving algaaciq coronary artery of algaaciq heart without angina pectoris I25.10 and Major depressive disorder, single episode, mild F32.0 [facility] [id number][place] [id number] May, [facility] [place] [id number] [place] [address] [id number] May, [facility] [id number], [place] [id number] May, [facility] [id number], [place] [id number] Apr, Other chronic pain G89.29 [facility] [place] [place] [address] [id number], [place] [id number] Apr, [facility] [place] [id number], [place] [id number] Apr, Essential hypertension I10 [facility] [place] [id number], [place] [id number] Mar, Other chronic pain G89.29 [facility] [place] [id number], [place] [id number] Mar, [facility] [place] [id number], [place] [id number] Feb, Other chronic pain G89.29 [facility] [place] [id number], [place] [id number] Feb, Diabetes type 2, uncontrolled E11.65 ; Type 2 diabetes mellitus with diabetic retinopathy, macular edema presence unspecified, with unspecified retinopathy severity E11.319 and Bilateral low back pain without sciatica M54.5 [facility] [place] [id number] [place] [address] [id number] Feb, [facility] [address] [place] [id number] [id number] Feb, Diabetes type 2, uncontrolled E11.65 [facility] [id number] [place] [address] [id number] Feb, Other chronic pain G89.29 [facility] [id number] [place] [address] [id number] Jan, [facility] [address] [id number] [place] [address] [id number] Jan, [facility] [id number] [place] [address] [id number] Jan, [facility] [address] [id number] [place] [address] [id number] Jan, Other chronic pain G89.29 [facility] [id number] [place] [address] [id number] December, Mixed stress and urge urinary incontinence N39.46 [facility] [id number] [place] [address] [id number] December, Chronic fatigue R53.82 [facility] [id number] [place] [address] [id number] December, Other chronic pain G89.29 [facility] [id number] [place] [address] [id number] December, Diabetes type 2, uncontrolled E11.65 ; [...] G89.29 [facility] [address]005[address]100[place], [place] [address] December, [place] [id number] [place] [address] [id number] December, Medicare annual wellness visit, subsequent Z00.00 ; Type 2 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 ; Chronic obstructive pulmonary disease, unspecified COPD type J44.9 ; Depression F32.9 ; Peripheral vascular disease I73.9 ; Coronary artery disease involving algaaciq coronary artery of algaaciq heart without angina pectoris I25.10 ; Hypercholesterolemia E78.0 ; GERD without esophagitis K21.9 and Chronic kidney disease, unspecified N18.9 [place] [id number] [place] [address] [id number] December, Mixed stress and urge urinary incontinence N39.46 ; Full incontinence of feces R15.9 ; Fecal urgency R15.2 ; Functional diarrhea K59.1 and Type 2 diabetes mellitus with diabetic neuropathy E11.40 [place] [id number] [place] [address] [id number] Nov, Other chronic pain G89.[address] [id number] Oct, [place] [id number] [place] [address] [id number] Oct, [address] [id number] Oct, Other chronic pain G89.29 [place] [id number] [place] [address] [id number] Sep, Other chronic pain G89.[address] [id number] Aug, CKD (chronic kidney disease), stage 3 (moderate) N18.3 ; Anemia, unspecified type D64.9 and Dilated pore of Ly L70.[address] [id number] Aug, Other chronic pain G89.29 ; Pain in left shoulder M25.512 ; High risk medication use Z79.899 ; Uses walker Z99.89 ; Diabetes type 2, uncontrolled E11.65 and Depression F32.[address] [id number] Aug, Chronic diarrhea K52.9 [address]100[place] [id number] Aug, Chronic diarrhea K52.9 ; Type 2 [...] hyperlipidemia E78.2 and Essential hypertension I10 [address] [place] [address] [id number] Aug, [place] [id number] [place] [address] [id number] Jul, Diabetes type 2, uncontrolled E11.65 [address] [place] [address] [id number] Jul, Diabetes type 2, uncontrolled E11.65 ; Type 2 diabetes mellitus with diabetic neuropathy E11.40 ; Insulin long-term use Z79.4 and Chronic obstructive pulmonary disease, unspecified COPD type J44.9 [address]00565100[place] [id number] Jun, [place] [id number] [place] [address] [id number] Jun, Essential hypertension I10 [address]65100[place], [place] [id number] Jun, Essential hypertension I10 [address] [place] [address] [id number] Jun, Type 2 diabetes mellitus with diabetic neuropathy E11.40 ; Type 2 diabetes mellitus with diabetic polyneuropathy E11.42 ; S/P coronary artery stent placement Z95.5 ; Obesity (BMI 30.0-34.9) E66.9 ; Mixed hyperlipidemia E78.2 ; Frequent falls R29.6 ; Chronic obstructive pulmonary disease, unspecified COPD type J44.9 ; Essential hypertension I10 ; Insulin long-term use Z79.4 and High risk medication use Z79.899 [place] [id number] [place] [address] [id number] May, Diarrhea, unspecified type R19.7 ; Type 2 diabetes mellitus with diabetic neuropathy E11.40 ; Chronic obstructive pulmonary disease, unspecified COPD type J44.9 ; S/P coronary artery stent placement Z95.5 ; High risk medication use Z79.899 ; Essential hypertension I10 ; Encounter for administration of vaccine Z23 and Encounter for immunization Z23 [address] [id number][place] [id number] May, Chronic obstructive pulmonary disease, unspecified COPD type J44.9 [address] [place] [address] [id number] May, Type 2 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 ; Encounter for immunization Z23 ; Needs flu shot Z23 ; Comprehensive diabetic foot examination, type 2 DM, encounter for E11.9 and Obesity (BMI 30.0-34.9) E66.9 [address] [place] [address] [id number] May, [address] [place] [address] [id number] Apr, [place] [id number] [place] [address] [id number] Apr, Essential hypertension I10 and Aphasia R47.[address] [place] [address] [id number] Apr, [place] [id number] [place] [address] [id number] Apr, Type 2 diabetes mellitus with diabetic neuropathy E11.40 ; Frequent falls R29.6 ; Essential hypertension I10 ; S/P coronary artery stent placement Z95.5 ; High risk medication use Z79.899 ; Hyperlipidemia, unspecified hyperlipidemia E78.5 ; CKD (chronic kidney disease), stage 3 (moderate) N18.3 ; Pain in left shoulder M25.512 and Chronic obstructive pulmonary disease, unspecified COPD type J44.9 [address]100[place] [id number] Mar, [place] [id number] [place] [address] [id number] Mar, Type 2 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 ; Leg wound, left, initial encounter S81.802A ; Hx of shoulder surgery Z98.890 ; Acute pain of left shoulder M25.512 and Fall, initial encounter W19.XXXA [facility] [id number] [place] [address] [id number] Feb, Follow-up exam Z09 ; Hx of shoulder surgery Z98.890 ; Acute pain of left shoulder M25.512 ; Essential hypertension I10 and Leg wound, left, initial encounter S81.802A [facility] [address] [id number] [place] [address] [id number] Feb, [facility] [address] [id number] [place] [address] [id number] Feb, [facility] [address] [id number] [place] [address] [id number] Feb, Chronic obstructive pulmonary disease, unspecified COPD type J44.9 [facility] [id number] [place] [address] [id number] Feb, [facility] [address] [id number] [place] [address] [id number] Jan, Generalized weakness R53.1 ; Exertional shortness of breath R06.02 and Fungal rash of trunk B36.9 [facility] [address] [id number] [place] [address] [id number] Jan, [facility] [address] [id number] [place] [address] [id number] Jan, [facility] [id number] [place] [address] [id number] Jan, [facility] [id number] [place] [address] [id number] Jan, [facility] [id number] [place] [address] [id number] December, High risk medication use Z79.899 [facility] [address] [id number] [place] [address] [id number] December, Type 2 diabetes mellitus with diabetic neuropathy E11.40 [facility] [address] [facility] [id number][place] [id number] December, High risk medication use Z79.899 [address] [place] [address] [id number] Nov, Diabetes type 2, uncontrolled E11.65 [address]100[place], [place] [id number] Nov, Medicare annual wellness visit, initial Z00.00 ; Bilateral low back pain without sciatica M54.5 ; Pain in left shoulder M25.512 ; Chronic pain syndrome G89.4 ; Type 2 diabetes mellitus with diabetic polyneuropathy E11.42 ; High risk medication use Z79.899 and Encounter for immunization Z23 [place] [id number] [place] [address] [id number] Nov, Type 2 diabetes mellitus with diabetic neuropathy E11.40 ; Coronary artery disease involving algaaciq coronary artery of algaaciq heart without angina pectoris I25.10 and CKD (chronic kidney disease), stage 3 (moderate) N18.3 [address] [place] [address] [id number] Oct, Type 2 diabetes mellitus with diabetic polyneuropathy E11.42 ; Chronic pain syndrome G89.4 ; Chronic obstructive pulmonary disease, unspecified COPD type J44.9 ; Chronic kidney disease, unspecified N18.9 and Rash R21 [address] [id number] [id number] Oct, Type 2 diabetes mellitus with diabetic neuropathy E11.[address] [id number][place] [id number] Oct, Rash R21 and Impetigo L01.[id number] [place] [address] [id number] Oct, Chronic pain syndrome G89.[id number] [place] [address] [id number] Oct, [address] [place] [address] [id number] Sep, Sebaceous cyst L72.3 [address] [place] [address] [id number] Sep, Sebaceous cyst L72.3 [place] [address] [place] [address] [id number] Sep, Chronic pain syndrome G89.4 ; Pain in left shoulder M25.512 and Effusion of olecranon bursa, left M25.422 [facility] [address], [place] [address] Aug, [place] [id number] [place] [address] [id number] Aug, [place] [id number] [place] [address] [id number] Aug, Mixed hyperlipidemia E78.2 and Chronic kidney disease, unspecified N18.9 [place] [id number] [place] [address] [id number] Jul, Type 2 diabetes mellitus with diabetic neuropathy E11.40 ; Essential hypertension I10 and S/P coronary artery stent placement Z95.5 [place] [id number] [place] [address] [id number] Jul, 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 [place] [address] [place] [address] [id number] Jul, Diabetes type 2, uncontrolled E11.65 ; Essential hypertension I10 and 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 [place] [address] [place] [address] [id number] Jul, [place] [address] [place] [address] [id number] Jul, [address] [place] [address] [id number] Jul, [place] [id number] [place] [address] [id number] Jul, Chronic obstructive pulmonary disease, unspecified COPD type J44.9 [address] [place] [address] [id number] Jun, CKD (chronic kidney disease), stage 3 (moderate) N18.3 and Anemia, unspecified type D64.9 [address] [place] [address] [id number] Jun, Type 2 diabetes mellitus with diabetic neuropathy E11.40 ; Decreased GFR R94.4 ; CKD (chronic kidney disease), stage 3 (moderate) N18.3 and Decreased hemoglobin R71.0 [place] [id number] [place] [address] [id number] Jun, CKD (chronic kidney disease), stage 3 (moderate) N18.3 and Anemia, unspecified type D64.9 [place] [id number] [place] [address] [id number] Jun, Type 2 diabetes mellitus with diabetic neuropathy E11.40 ; Decreased GFR R94.4 and CKD (chronic kidney disease), stage 3 (moderate) N18.3 [place] [id number] [place] [address] [id number] Jun, Type 2 diabetes mellitus with diabetic neuropathy E11.40 and Essential hypertension I10 [place] [address] [place] [address] [id number] Jun, [place] [address] [place] [address] [id number] Jun, [place] [address] [place] [address] [id number] Jun, Type 2 diabetes mellitus with diabetic neuropathy E11.40 ; S/P coronary artery stent placement Z95.5 ; Chronic obstructive pulmonary disease, unspecified COPD type J44.9 ; Essential hypertension I10 ; GERD without esophagitis K21.9 ; Peripheral vascular disease I73.9 ; Mixed hyperlipidemia E78.2 and Hospital discharge follow-up Z09 [address] [place] [address] [id number] Jun, [place] [address] [place] [address] [id number] May, Depression F32.9 and Hyperlipidemia, unspecified hyperlipidemia E78.5 [facility] [address], [place] [address] May, [place] [address] [place] [address] [id number] May, [address] [place] [address] [id number] May, Essential hypertension I10 ; Chronic pain syndrome G89.4 ; Pain in left shoulder M25.512 ; High risk medication use Z79.899 ; Chronic obstructive pulmonary disease, unspecified COPD type J44.9 ; S/P coronary artery stent placement Z95.5 ; Personal history of carotid stenosis Z86.79 ; Hyperlipidemia, unspecified hyperlipidemia E78.5 ; Decreased GFR R94.4 and Type 2 diabetes mellitus with diabetic polyneuropathy E11.42 [place] [id number] [place] [address] [id number] May, Hemoglobin decreased R71.0 and Decreased GFR R94.[address] [id number] May, Hemoglobin decreased R71.0 and Decreased GFR R94.4 [place] [id number] [place] [address] [id number] May, [place] [address] [place] [address] [id number] May, [place] [id number] [place] [address] [id number] Apr, [address] [id number] Apr, Type 2 diabetes mellitus with foot [...] unspecified hyperlipidemia E78.5 and Essential hypertension I10 [place] [id number] [place] [address] [id number] Apr, [place] [address] [place] [address] [id number] Mar, [place] [id number] [place] [address] [id number] Mar, [facility] [address], [place] [address] Mar, [facility] [id number], [place] [id number] Feb, [facility] [id number], [place] [id number] Feb, [facility] [address] [id number] [place] [address] [id number] Feb, [facility] [id number] [place] [address] [id number] Jan, Type 2 diabetes mellitus with diabetic polyneuropathy E11.42 ; Hypercholesterolemia E78.0 ; Chronic pain syndrome G89.4 ; Pain in left shoulder M25.512 and High risk medication use Z79.899 [facility] [id number] [place] [address] [id number] Jan, [facility] [id number] [place] [address] [id number] Jan, [facility] [id number], [place] [id number] December, [facility] [id number] [place] [address] [id number] December, [facility] [address]00565100[place], [place] [address] December, Diabetes type 2, uncontrolled E11.65 ; Type 2 diabetes mellitus with diabetic neuropathy E11.40 ; Peripheral vascular disease I73.9 ; 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 and 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 [facility] [id number], [place] [id number] Nov, [facility] [id number], [place] [id number] Nov, [facility] [id number], [place] [id number] Nov, [facility] [id number], [place] [id number] Nov, Right hip pain M25.551 [facility] [address] [id number], [place] [address] Nov, [facility] [id number] [place] [address] Nov, [facility] [place] [id number] [place] [address] [id number] Nov, Diabetes with neurological manifestations, type II or unspecified type, not stated as uncontrolled 250.60 [facility] [id number] [place] [address] [id number] Nov, [facility] [address] [id number] [place] [id number] Nov, [facility] [place] [id number] [place] [address] [id number] Oct, Diabetes type 2, uncontrolled E11.65 ; Type 2 diabetes mellitus with diabetic neuropathy, unspecified E11.40 and Low back pain M54.5 [facility] [place] [address] [id number] [place] [address] [id number] Oct, [facility] [address] [id number] [place] [address] [id number] Oct, [facility] [address] [id number] [place] [address] [id number] Oct, [facility] [address] [id number] [place] [address] [id number] Sep, [facility] [place] [id number] [place] [address] [id number] Sep, [facility] [address]00565100[place], [place] [address] Sep, [facility] [address] [id number] [place] [address] [id number] Sep, [facility] [address] [id number] [place] [address] [id number] Sep, [facility] [id number] [place] [address] [id number] Aug, 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 [facility] [address] [id number] [id number] Aug, [facility] [address] [id number] [id number] Aug, Allergic rhinitis due to pollen J30.1 [facility] [id number], [place] [id number] Jul, [facility] [id number], [place] [id number] Jul, [facility] [id number] [place] [address] [id number] Jul, [facility] [id number] [place] [address] [id number] Jun, [facility] [id number] [place] [address] [id number] Jun, Thumb tendonitis M77.8 and Ringing in ear, bilateral H93.13 [facility] [id number][place] [id number] Jun, [facility] [id number], [place] [id number] May, [facility] [id number] [place] [address] May, [facility] [id number] [place] [address] May, Pre-op evaluation Z01.818 ; Encounter for immunization Z23 ; Type 2 diabetes mellitus with diabetic peripheral angiopathy without gangrene E11.51 ; Insulin long-term use Z79.4 ; Type 2 diabetes mellitus with foot ulcer E11.621 ; Peripheral vascular disease I73.9 ; Coronary artery disease involving algaaciq coronary artery of algaaciq heart without angina pectoris I25.10 ; S/P coronary artery stent placement Z95.5 ; Osteomyelitis of right foot, unspecified chronicity M86.9 and Chronic obstructive pulmonary disease, unspecified COPD type J44.9 [facility] [id number] [place] [address] May, [facility] [id number] [place] [address] [id number] May, [facility] [id number] [place] [address] [id number] May, Diabetes type 2, uncontrolled E11.65 ; Encounter for immunization Z23 ; Osteopenia M85.80 and Allergic rhinitis due to pollen J30.1 [facility] [id number] [place] [address] [id number] May, Lumbago 724.2 [address] [place] [id number] [place] [address] [id number] Apr, [facility] [id number] [place] [address] [id number] Apr, [facility] [id number] [place] [address] [id number] Apr, [facility] [id number] [place] [address] [id number] Apr, [facility] [id number] [place] [phone] Mar, [facility] [id number] [place] [address] [id number] Mar, [facility] [id number] [place] [address] [id number] Mar, [facility] [id number] [place] [address] [id number] Mar, [facility] [id number] [place] [address] [id number] Mar, [facility] [id number] [place] [phone] Mar, [facility] [id number] [place] [address] [id number] Mar, [facility] [id number] [place] [address] [id number] Mar, Diabetes with neurological manifestations, type II or unspecified type, not stated as uncontrolled 250.60 and Severe obesity (BMI 35.0-35.9 with comorbidity) 278.01 [facility] [id number] [place] [address] [id number] Mar, [facility] [address]00565100[place], [place] [address] Mar, 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.60 [facility] [place] [id number] [place] [address] [id number] Feb, [facility] [address]00565100[place], [place] [address] Feb, [facility] [place] [id number], [place] [id number] Feb, [facility] [place] [id number], [place] [id number] Feb, Follow up V67.9 ; Diabetes with neurological manifestations, type II or unspecified type, 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.60 and Congestive heart failure 428.0 [facility] [id number], [place] [id number] Jan, [facility] [id number], [place] [id number] Jan, [facility] [address] [id number], [place] [id number] Jan, [facility] [place] [address] [id number], [place] [id number] December, Otitis media with effusion 381.4 ; Left arm numbness 782.0 and Osteoporosis 733.00 [facility] [address] [id number], [place] [id number] December, [facility] [place] [id number], [place] [id number] Nov, [facility] [address] [id number], [place] [id number] Nov, Serous otitis media 381.4 and Lumbago 724.2 [facility] [place] [facility] [address]005[address], [place] [address] 14 Nov, 2014 [facility] [place] [facility] [address]00565100[place], [place] [address] Nov, [facility] [id number], [place] [id number] Oct, [facility] [address]00565100[place], [place] [address] Oct, [facility] [id number], [place] [id number] Oct, [facility] [address]00565100[place], [place] [address] Oct, [facility] [id number], [place] [id number] Oct, [facility] [address]100[place], [place] [address] Oct, [facility] [address]00565100[place], [place] [address] Sep, [facility] [address] [id number], [place] [address] Sep, [facility] [id number], [place] [id number] Sep, [facility] [place] [facility] [address] [id number], [place] [address] Sep, [facility] [id number], [place] [id number] Aug, [facility] [address] [id number], [place] [address] Aug, [facility] [address] [id number], [place] [id number] Aug, [facility] [address] [facility] [id number], [place] [address] Aug, [facility] [address] [id number], [place] [id number] Jul, [facility] [address] [facility] [id number], [place] [address] Jul, [facility] [address] [facility] [id number], [place] [id number] Jul, [facility] [address] [facility] [id number], [place] [address] Jul, [facility] [address] [id number], [place] [id number] Jul, [facility] [address] [facility] [id number], [place] [address] Jul, [facility] [address] [facility] [id number], [place] [id number] Jun, [facility] [address] [facility] [id number], [place] [address] Jun, [facility] [address] [facility] [id number], [place] [id number] May, [facility] [address] [facility] [id number], [place] [address] May, [facility] [address] [facility] [id number], [place] [id number] May, [facility] [address] [facility] [id number], [place] [address] May, [facility] [address] [id number], [place] [id number] May, [facility] [address] [facility] [id number], [place] [address] May, [facility] [address] [id number], [place] [id number] May, [facility] [address] [id number], [place] 949407574 May, [facility] [facility] [address] [id number], [place] [address] May, [facility] [place] [facility] [address] [facility] [id number] [place] [address] May, [facility] [address] [id number], [place] [id number] May, [facility] [place] [facility] [address] [facility] [id number], [place] [address] May, [facility] [place] [facility] [address] [facility] [id number], [place] [address] Apr, [facility] [address] [id number] [place] [id number] Apr, [facility] [place] [facility] [address] [facility] [id number], [place] [address] Apr, [facility] [address] [id number], [place] [id number] Apr, [facility] [address] [facility] [id number], [place] [id number] Apr, [facility] [place] [facility] [address] [facility] [id number], [place] [address] Apr, [facility] [place] [facility] [address] [facility] [id number], [place] [address] Apr, [facility] [address] [facility] [id number], [place] [id number] Apr, [facility] [place] [facility] [address] [facility] [id number], [place] [address] Apr, [facility] [address] [facility] [id number], [place] [id number] Apr, [facility] [place] [facility] [address] [facility] [id number], [place] [address] Apr, [facility] [address] [facility] [id number], [place] [id number] Apr, [facility] [place] [facility] [address] [facility] [id number], [place] [address] Apr, [facility] [address] [id number] [place] [id number] Apr, [facility] [place] [facility] [address] [id number] [place] [address] Apr, [facility] [address] [id number] [place] 615001553 Apr, [facility] [place] [facility] [address] [facility] [id number] [place] [address] Apr, [facility] [address] [id number] [place] 480268880 Apr, [facility] [place] [facility] [address] [facility] [id number] [place] [address] Apr, [facility] [address] [id number] [place] 512617245 Mar, [facility] [place] [facility] [address] [address] Mar, [facility] [address] [id number] [place] [id number] Mar, [facility] [address] [id number] [place] [id number] Mar, [facility] [place] [facility] [address] [facility] [id number], [place] [address] Mar, [facility] [place] [facility] [address] [facility] [id number], [place] [address] Mar, [facility] [address] [id number] [place] 792205006 Mar, [facility] [place] [facility] [address] [id number] [place] [address] Mar, [facility] [address] [id number] [place] 748503427 Mar, [facility] [place] [facility] [address] [facility] [id number] [place] [address] Mar, [facility] [address] [id number], [place] 605726964 Mar, [facility] [place] [facility] [address] [id number] [place] [address] Mar, [facility] [address] [id number] [place] [id number] Mar, [facility] [place] [facility] [address] [facility] [id number] [place] [address] Mar, [facility] [address] [id number] [place] 179945253 Mar, [facility] [place] [facility] [address] [id number] [place] [address] Mar, [facility] [address] [id number] [place] 283088189 Mar, [facility] [place] [facility] [address] [facility] [id number], [place] [address] Mar, [facility] [address] [id number] [place] [id number] Mar, [facility] [place] [facility] [address] [facility] [id number], [place] [address] Mar, [facility] [address] [id number] [place] 774672526 Feb, [facility] [place] [facility] [address] [facility] [id number], [place] [address] Feb, [facility] [address] [id number] [place] 069427655 Feb, [facility] [place] [facility] [address] [facility] [id number], [place] [address] Feb, [facility] [address] [id number] [place] 898106641 Feb, [facility] [place] [facility] [address] [facility] [id number] [place] [address] Feb, [facility] [address] [id number] [place] 078950449 Feb, [facility] [place] [facility] [address] [facility] [id number], [place] [address] Feb, [facility] [address] [id number] [place] 146420969 Feb, [facility] [place] [facility] [address] [id number] [place] [address] Feb, [facility] [address] [id number] [place] 035364465 Feb, [facility] [place] [facility] [address] [id number] [place] [address] Feb, [facility] [address] [id number] [place] 093671277 Feb, [facility] [place] [facility] [address] [id number] [place] [address] Feb, [facility] [address] [id number] [place] 717276534 Feb, [facility] [place] [facility] [address] [facility] [id number] [place] [address] Feb, [facility] [address] [id number] [place] 450206171 Feb, [facility] [place] [facility] [address] [facility] [id number] [place] [address] Feb, [facility] [address] [id number] [place] 155222936 Feb, [facility] [address] [id number] [place] 121669516 Feb, [facility] [place] [facility] [address] [facility] [id number], [place] [address] Feb, [facility] [place] [facility] [address] [id number] [place] [address] Feb, [facility] [address] [id number] [place] 400389734 Feb, [facility] [place] [facility] [address] [facility] [id number] [place] [address] Feb, [facility] [address] [id number] [place] 645637495 Feb, [facility] [place] [facility] [address] [id number] [place] [address] Feb, [facility] [address] [id number] [place] 525244116 Feb, [facility] [place] [facility] [address] [id number] [place] [address] Feb, [facility] [address] [id number] [place] 311170786 Jan, [facility] [place] [facility] [address] [id number] [place] [address] Jan, [facility] [place] [facility] [address] [id number] [place] [address] Jan, [facility] [place] [facility] [address] [facility] [id number] [place] [address] Jan, [facility] [place] [facility] [address] [facility] [id number] [place] [address] Jan, [facility] [place] [facility] [address] [facility] [id number] [place] [address] Jan, [facility] [address] [facility] [id number], [place] [id number] Jan, [facility] [place] [facility] [address] [facility] [id number], [place] [address] Jan, [facility] [place] [facility] [address] [facility] [id number], [place] [address] Jan, [facility] [place] [facility] [address] [id number], [place] [address] Jan, [facility] [address] [id number] [place] 532447446 Jan, [facility] [address] [id number] [place] 257868359 Jan, [facility] [place] [facility] [address] [id number], [place] [address] Jan, [facility] [place] [facility] [address] [id number] [place] [address] Jan, [facility] [address] [id number] [place] 639103189 Jan, [facility] [address] [id number] [place] 009843224 Jan, [facility] [place] [facility] [address] [facility] [id number] [place] [address] Jan, [facility] [place] [facility] [address] [facility] [id number] [place] [address] Jan, [facility] [place] [facility] [address] [facility] [id number] [place] [address] Jan, [facility] [address] [facility] [id number] [place] [id number] December, [facility] [place] [facility] [address] [facility] [id number] [place] [address] December, [facility] [place] [facility] [address] [facility] [id number] [place] [address] December, [facility] [address] [id number] [place] [id number] December, [facility] [place] [facility] [address] [facility] [id number][place] [address] December, [facility] [address] [facility] [id number] [place] [id number] December, [facility] [place] [facility] [address] [facility] [id number], [place] [address] December, [facility] [address] [id number] [place] [id number] December, [facility] [place] [facility] [address] [facility] [id number] [place] [address] December, [facility] [address] [id number] [place] [id number] Nov, [facility] [place] [facility] [address] [facility] [id number] [place] [address] Nov, [facility] [address] [facility] [id number] [place] [id number] Nov, [facility] [place] [facility] [address] [facility] [id number] [place] [address] Nov, [facility] [place] [facility] [address] [facility] [id number] [place] [address] Nov, [facility] [place] [facility] [address] [facility] [id number] [place] [address] Nov, [facility] [place] [facility] [address] [facility] [id number] [place] [address] Oct, [facility] [address] [facility] [id number] [place] [id number] Oct, [facility] [place] [facility] [address] [id number] [address] Oct, [facility] [address] [facility] [id number][place] [id number] Oct, [facility] [place] [facility] [address] [facility] [id number], [place] [address] Oct, [facility] [address] [facility] [id number] [place] [id number] Sep, [facility] [place] [facility] [address] [facility] [id number], [place] [address] Sep, [facility] [address] [facility] [id number][place] [id number] Aug, [facility] [place] [facility] [address] [facility] [id number], [place] [address] Aug, [facility] [address] [facility] [id number][place] [id number] Aug, [facility] [place] [facility] [address] [facility] [id number], [place] [address] Aug, [facility] [place] [facility] [address] [facility] [id number], [place] [address] Aug, [facility] [address] [facility] [id number][place] [id number] Aug, [facility] [address] [facility] [id number], [place] [address] Aug, [facility] [place] [facility] [address] [facility] [id number], [place] [address] Aug, [facility] [address] [facility] [id number][place] [id number] Aug, [facility] [place] [facility] [address] [facility] [id number], [place] [address] Aug, [facility] [address] [facility] [id number] [place] [id number] Jul, [facility] [place] [facility] [address] [facility] [id number], [place] [address] Jul, [facility] [address] [id number][place] [id number] Jul, [facility] [id number], [place] [address] Jul, [facility] [address] [facility] [id number][place] [id number] Jul, [facility] [id number], [place] [address] Jul, [facility] [address] [facility] [id number][place] [id number] Jul, [facility] [place] [facility] [address] [facility] [id number], [place] [address] Jul, [facility] [address] [facility] [id number][place] [id number] Jun, [facility] [place] [facility] [address] [facility] [id number], [place] [address] Jun, [facility] [address] [facility] [id number] [id number] Jun, [facility] [place] [facility] [address] [facility] [id number], [place] [address] Jun, [facility] [place] [facility] [address] [facility] [id number], [place] [address] Jun, [facility] [address] [facility] [id number], [place] [address] Jun, [facility] [place] [address] [id number] [place] [id number] Apr, [facility] [place] [address] [id number] [place] [id number] Mar, [facility] [place] [address] [id number] [place] [id number] Mar, [facility] [place] [address] [id number] [place] [id number] Feb, [facility] [place] [address] [id number] [place] [id number] Feb, [facility] [place] [address] [id number] [place] [id number] Feb, [facility] [place] [address] [id number] [place] [id number] December, [facility] [place] [address] [id number] [place] [id number] December, [facility] [address] [facility] [id number], [place] [address] December, [facility] [place] [address] [id number] [place] [id number] December, [facility] [place] [address] [id number] [place] [id number] December, [facility] [place] [address] [id number] [place] [id number] Nov, [facility] [place] [address] [id number] [place] [id number] Nov, [facility] [place] [address] [id number] [place] [id number] Nov, [facility] [place] [address] [id number] [place] [id number] Oct, [facility] [place] [address] [id number] [place] [id number] Sep, [facility] [place] [address] [id number][place] [address] Aug, [facility] [address] [facility] [id number], [place] [address] Aug, [facility] [place] [address] [id number][place] [id number] Aug, [facility] [place] [address] [id number], [place] [id number] Jul, [facility] [address] [facility] [id number], [place] [address] Jul, [facility] [place] [address] [id number], [place] [id number] Jul, [facility] [address] [facility] [id number], [place] [address] Jul, [facility] [place] [address] [facility] [id number][place] [id number] Jun, [facility] [address], [place] [address] Jun, [facility] [place] [address] [facility] [id number][place] [id number] May, [facility] [address], [place] [address] May, [facility] [place] [address] [facility] [id number], [place] [id number] May, [facility] [address] [facility] [id number], [place] [address] May, [facility] [place] [address] [id number], [place] [address] Apr, [facility] [place] [address] [id number], [place] [id number] Apr, [facility] [place] [address] [id number], [place] [id number] Mar, [facility] [place] [address] [id number][place] [id number] Mar, [facility] [place] [address] [id number], [place] [id number] Feb, [facility] [place] [address] [id number] [place] [id number] Feb, [facility] [place] [address] [id number] [place] [id number] Jan, [facility] [place] [address] [id number] [place] [address] Jan, [facility] [place] [address] [id number] [place] [id number] Jan, [facility] [place] [address] [id number] [place] [id number] Jan, [facility] [place] [address] [id number] [place] [id number] December, [facility] [place] [address] [id number] [place] [id number] December, [facility] [address] [facility] [id number], [place] [address] Nov, [facility] [place] [address] [id number] [place] [address] Nov, [facility] [place] [address] [id number] [place] [address] Nov, [facility] [place] [address] [id number] [place] [id number] Nov, [facility] [place] [address] [id number] [place] [id number] Nov, [facility] [address] [facility] [id number], [place] [address] Oct, [facility] [address] [facility] [id number], [place] [address] Oct, [facility] [place] [address] [id number] [place] [id number] Oct, [facility] [place] [address] [id number] [place] [address] Oct, [facility] [place] [address] [id number] [place] [address] Oct, [facility] [place] [address] [id number] [place] [id number] Oct, [facility] [place] [address] [id number] [place] [id number] Oct, [facility] [place] [address] [id number] [place] [id number] Oct, [facility] [place] [address] [id number] [place] 659[address]69[address] Oct, [facility] [address] [facility] [id number] [place] [address] Oct, [facility] [place] [address] [id number] [place] [id number] Sep, [facility] [place] [address] [id number] [place] [address]34[address] Sep, [facility] [place] [address] [id number] [place] [id number] Aug, [facility] [place] [address] [id number] [place] [id number] Aug, [facility] [place] [facility] [address], [place] [address] Jul, [facility] [place] [facility] [address], [place] [address] Jul, [facility] [place] [facility] [address], [place] [address] Jul, [facility] [place] [facility] [address], [place] [address] Jul, [facility] [place] [facility] [address], [place] [address] Jul, [facility] [place] [facility] [address], [place] [address] Jul, [facility] [place] [facility] [address], [place] [address] Jul, [facility] [place] [facility] [address], [place] [address] Jul, [facility] [place] [facility] [address] [facility] [id number] [place] [address] Jul, [facility] [address] [facility] [id number], [place] [address] Jul, [facility] [address] [id number], [place] [address] Jul, [facility] [address] [id number], [place] [address] Jul, [facility] [address] [id number], [place] [address] Jul, [facility] [address] [id number], [place] [address] Jul, IMMUNIZATIONS No Known Immunizations SOCIAL HISTORY Never Assessed REASON FOR VISIT EMR-[facility] [place]AN OF CARE VITAL SIGNS MEDICATIONS Unknown [...] Surgical History Left eye retinal eye repair ([facility]) 06/2014 Surgical History amputation, toe-right third toe ([facility]) 2013 Surgical History Right eye retinal eye repair ([facility]) 09/2014 Surgical History heart cath [...]
[2019-04-03] MEDS ORDERED: LIDOCAINE 1% INJ 20 ML 20 ML VIAL ONE (06:53)
[2019-04-03] MEDS ORDERED: BUPIVACAINE 0.5% 30 ML (SENSORCAINE) VIAL ONE (06:53)
[2019-04-03] MEDS ORDERED: LACTATED RINGERS 1,000 ML IV PRN (07:08)
--- NOTE | 2019-04-03 07:09 | Progress Note-Pre Operative ---
Pre-Operative Progress Note H&P Reviewed The H&P was reviewed, patient examined and no changes noted. Date Seen by Provider: Apr 03, 2019 Time Seen by Provider: 07:07 Date H&P Reviewed: Apr 03, 2019 Time H&P Reviewed: 07:09 Pre-Operative Diagnosis: Osteomyelitis, right 2nd toe MISAEL MAY DPM Apr 03, 2019 07:09
--- NOTE | 2019-04-03 07:11 | NUR ---
DR. MAY ON FLOOR AND INFORMED NO NEED FOR H&P DUE TO NOT USING ANESTHESIA.
[2019-04-03] MEDS ORDERED: FERR-84 PO (07:21)
[2019-04-03] MEDS ORDERED: SULF1TAB35 PO (07:21)
--- OUTSIDE RECORDS SUMMARY | 2019-04-03 07:29 | XMS REPORT | Continuity of Care Document ---
Author Organization Unknown Address Unknown Phone Unavailable Allergies Active Description Code Type Severity Reaction Onset Reported/Identified Relationship to Patient Clinical Status Yes No Known Drug Allergies [id number] Drug Allergy Unknown N/A 09/16/2017 Medications There [...] CELLULITIS OF THE LEFT FOOT 08/06/2011 [facility] PECK MIGUEL E 250.02 DIABETES MELLITUS TYPE 2 - UNCOMPLICATED, UNCONTROLLED 08/06/2011 [facility] WINTERSN, MIGUEL E 305.1 current smoker [facility]/06[facility]EL E 401.9 ESSENTIAL HYPERTENSION 08/06/2011 [facility] MIGUEL E 682.7 CELLULITIS OF THE [...] CELLULITIS OF THE LEFT FOOT 08/06/2011 [facility] PECK, MIGUEL E 250.02 DIABETES MELLITUS TYPE 2 - UNCOMPLICATED, UNCONTROLLED 08/06/2011 [facility] PECK, MIGUEL E 305.1 current smoker 08/06/2011 [facility] PECK, MIGUEL E 401.9 ESSENTIAL HYPERTENSION 08/06/2011 [facility] NEUROSURGERY PHYSICIAN, MIGUEL E 682.7 CELLULITIS OF THE LEFT FOOT 08/06/2011 [facility] DO, TEODORO K 250.02 DIABETES MELLITUS TYPE 2 - UNCOMPLICATED, UNCONTROLLED 08/06/2011 [facility] DO, TEODORO K 305.1 current smoker 08/06/2011 [facility] DO, TEODORO K 401.9 ESSENTIAL HYPERTENSION 08/06/2011 [facility] DO, TEODORO K 682.7 CELLULITIS OF THE LEFT FOOT 08/06/2011 [facility] PECK MIGUEL E 250.02 DIABETES MELLITUS TYPE 2 - UNCOMPLICATED, UNCONTROLLED 08/06/2011 [facility] NEUROSURGERY PHYSICIAN MIGUEL E 305.1 current smoker 08/06/2011 MAKSIMYASMANI WINTERSN, MIGUEL E 401.9 ESSENTIAL HYPERTENSION 08/06/2011 [facility]YASMANI NEUROSURGERY PHYSICIAN, MIGUEL E 682.7 CELLULITIS OF THE LEFT [...] 682.7 CELLULITIS OF THE LEFT FOOT 08/06/2011 MAKSIMLYASMANI NEUROSURGERY PHYSICIAN MIGUEL E 250.02 DIABETES MELLITUS TYPE 2 - UNCOMPLICATED, UNCONTROLLED 08/06/2011 [facility] NEUROSURGERY PHYSICIAN MIGUEL E 305.1 current smoker 08/06/2011 [facility] NEUROSURGERY PHYSICIAN MIGUEL E 401.9 ESSENTIAL HYPERTENSION 08/06/2011 [facility] NEUROSURGERY PHYSICIAN MIGUEL E 682.7 CELLULITIS OF THE LEFT [...] CELLULITIS OF THE LEFT FOOT 08/06/2011 [facility] NEUROSURG[facility] PHYSICIAN, MIGUEL E 250.02 DIABETES MELLITUS TYPE 2 - UNCOMPLICATED, UNCONTROLLED 08/06/2011 [facility] NEUROSURG[facility] PHYSICIAN, MIGUEL E 305.1 current smoker 08/06/2011 [facility] NEUROSURGERY PHYSICIAN, MIGUEL E 401.9 ESSENTIAL HYPERTENSION 08/06/2011 [facility] NEUROSURGERY PHYSICIAN, MIGUEL E 682.7 CELLULITIS OF THE LEFT FOOT 08/06/2011 [facility] NEUROSURG[facility] PHYSICIAN, MIGUEL E 250.02 DIABETES MELLITUS TYPE 2 - UNCOMPLICATED, UNCONTROLLED 08/06/2011 [facility] NEUROSURG[facility] PHYSICIAN, MIGUEL E 305.1 current smoker 08/06/2011 [facility] NEUROSURG[facility] PHYSICIAN, MIGUEL E 401.9 ESSENTIAL HYPERTENSION 08/06/2011 [facility] NEUROSURGERY PHYSICIAN, MIGUEL E 682.7 CELLULITIS OF THE LEFT FOOT 08/06/2011 [facility] NEUROS[facility] PHYSICIAN, MIGUEL E 250.02 DIABETES MELLITUS TYPE 2 - UNCOMPLICATED, UNCONTROLLED 08/06/2011 [facility] NEUROS[facility] PHYSICIAN, MIGUEL E 305.1 current smoker 08/06/2011 [facility] NEUROSURGERY PHYSICIAN, MIGUEL E 401.9 ESSENTIAL HYPERTENSION 08/06/2011 [facility] NEUROS[facility] PHYSICIAN, MIGUEL E 682.7 CELLULITIS OF THE LEFT [...] 682.7 CELLULITIS OF THE LEFT FOOT 08/06/2011 LATOYA ARVIZU APRNE E 250.02 DIABETES MELLITUS TYPE 2 - UNCOMPLICATED, UNCONTROLLED 08/06/2011 [facility] PECK MIGUEL E 305.1 current smoker 08/06/2011 MAKSIMVIJAY GRUBER APRNSIE E 401.9 ESSENTIAL HYPERTENSION 08/06/2011 MAKSIMVIJAY GRUBER APRNSIE E 682.7 CELLULITIS OF THE LEFT FOOT [...] CELLULITIS OF THE LEFT FOOT 08/06/2011 [facility] NEUROSURGERY PHYSICIAN MIGUEL E 250.02 DIABETES MELLITUS TYPE 2 - UNCOMPLICATED, UNCONTROLLED 08/06/2011 [facility] NEUROS[facility] PHYSICIAN, MIGUEL E 305.1 current smoker 08/06/2011 [facility] NEUROSURG[facility] PHYSICIAN, MIGUEL E 401.9 ESSENTIAL HYPERTENSION 08/06/2011 [facility] NEUROSURG[facility] PHYSICIAN, MIGUEL E 682.7 CELLULITIS OF THE LEFT FOOT 08/06/2011 [facility] DO, TEODORO K 250.02 DIABETES MELLITUS TYPE 2 - UNCOMPLICATED, UNCONTROLLED 08/06/2011 [facility] DO, TEODORO K 305.1 current smoker 08/06/2011 [facility] DO, TEODORO K 401.9 ESSENTIAL HYPERTENSION 08/06/2011 [facility] DO, TEODORO K 682.7 CELLULITIS OF THE LEFT FOOT 08/06/2011 [facility] NEUROSURGERY PHYSICIAN, MIGUEL E 250.02 DIABETES MELLITUS TYPE 2 - UNCOMPLICATED, UNCONTROLLED 08/06/2011 [facility]YASMANI NEUROSURGERY PHYSICIAN, MIGUEL E 305.1 current smoker 08/06/2011 MAKSIMMarcYASMANI NEUROSURGERY PHYSICIAN, MIGUEL E 401.9 ESSENTIAL HYPERTENSION 08/06/2011 MAKSIMYASMANI NEUROSURGERY PHYSICIAN, MIGUEL E 682.7 CELLULITIS OF THE LEFT FOOT 08/06/2011 MAKSIMMarcYASMANI NEUROSURGERY PHYSICIAN, MIGUEL E 250.02 DIABETES MELLITUS TYPE 2 - UNCOMPLICATED, UNCONTROLLED 08/06/2011 MA[facility]IMYASMANI PECK MIGUEL E 305.1 current smoker 08/06/2011 MAKSIMYASMANI NEUROSURGERY PHYSICIAN, MIGUEL E 401.9 ESSENTIAL HYPERTENSION 08/06/2011 [facility]IMYASMANI NEUROSURGERY PHYSICIAN, MIGUEL E 682.7 CELLULITIS OF THE LEFT FOOT 08/06/2011 [facility] DO, TEODORO K 250.02 DIABETES MELLITUS TYPE 2 - UNCOMPLICATED, UNCONTROLLED 08/06/2011 [facility] DO, TEODORO K 305.1 current smoker 08/06/2011 [facility] DO, TEODORO K 401.9 ESSENTIAL HYPERTENSION 08/06/2011 [facility] DO, TEODORO K 682.7 CELLULITIS OF THE LEFT FOOT 08/06/2011 [facility] PECK MIGUEL E 250.02 DIABETES MELLITUS TYPE 2 - UNCOMPLICATED, UNCONTROLLED 08/06/2011 MAKSIMYASMANI NEUROSURGERY PHYSICIAN, MIGUEL E 305.1 current sm[facility]/06[facility] E 401.9 ESSENTIAL HYPERTENSION 08/06/2011 [facility], MIGUEL E 682.7 CELLULITIS OF THE LEFT FOOT 08/06/2011 [facility] DO, TEODORO K 250.02 DIABETES MELLITUS TYPE 2 - UNCOMPLICATED, UNCONTROLLED 08/06/2011 [facility] DO, TEODORO K 305.1 current smoker 08/06/2011 [facility] DO, TEOODRO K 401.9 ESSENTIAL HYPERTENSION 08/06/2011 [facility] DO, [...] 08/13/2011 Ot E930.0 08/18/2011 FANNY RODRIGUES MD 584.5 ACUTE KIDNEY FAILURE DUE TO TUBULAR NECROSIS 08/18/2011 FANNY RODRIGUES MD 785.4 GANGRENE DRY (ISCHEMIC) 08/18/2011 FANNY RODRIGUES MD 584.5 ACUTE KIDNEY FAILURE DUE TO TUBULAR NECROSIS 08/18/2011 FANNY RODRIGUES MD 78Xiao.4 GANGRENE DRY (ISCHEMIC) 08/18/2011 584.5 ACUTE KIDNEY FAILURE DUE TO TUBULAR NECROSIS 08/18/2011 785.4 GANGRENE DRY (ISCHEMIC) 08/18/2011 584.5 ACUTE KIDNEY FAILURE DUE TO TUBULAR NECROSIS 08/18/2011 785.4 GANGRENE DRY (ISCHEMIC) 08/18/2011 584.5 ACUTE KIDNEY FAILURE DUE TO TUBULAR NECROSIS 08/18/2011 785.4 GANGRENE DRY (ISCHEMIC) 08/18/2011 FANNY RODRIGUES MD 584.5 ACUTE KIDNEY FAILURE DUE TO TUBULAR NECROSIS 08/18/2011 FANNY RODRIGUES MD 785.4 GANGRENE DRY (ISCHEMIC) 08/18/2011 584.5 ACUTE KIDNEY FAILURE DUE TO TUBULAR NECROSIS 08/18/2011 785.4 GANGRENE DRY (ISCHEMIC) 08/18/2011 584.5 ACUTE KIDNEY FAILURE DUE TO TUBULAR NECROSIS 08/18/2011 785.4 GANGRENE DRY (ISCHEMIC) 08/18/2011 FANNY RODRIGUES MD 584.5 ACUTE KIDNEY FAILURE DUE TO TUBULAR NECROSIS 08/18/2011 FANNY RODRIGUES MD 78Xiao.4 GANGRENE DRY (ISCHEMIC) 08/18/2011 TEODORO LOPEZ DO 584.5 ACUTE KIDNEY FAILURE DUE TO TUBULAR NECROSIS 08/18/2011 TEODORO LOPEZ DO 785.4 GANGRENE DRY (ISCHEMIC) 08/18/2011 TEODORO LOPEZ DO 584.5 ACUTE KIDNEY FAILURE DUE TO TUBULAR [...] FAILURE DUE TO TUBULAR NECROSIS 08/18/2011 [facility] PECK MIGUEL E 785.4 GANGRENE DRY (ISCHEMIC) 08/18/2011 CONNIE [...] K 785.4 GANGRENE DRY (ISCHEMIC) 08/18/2011 [facility] NEUROSURGERY PHYSICIAN MIGUEL E 584.5 ACUTE KIDNEY FAILURE DUE TO TUBULAR NECROSIS 08/18/2011 [facility] NEUROSURGERY PHYSICIAN MIGUEL E 785.4 GANGRENE DRY (ISCHEMIC) 08/18/2011 [facility] DO, TEODORO K 584.5 ACUTE KIDNEY FAILURE DUE TO TUBULAR NECROSIS 08/18/2011 [facility] DO, TEODORO K 785.4 GANGRENE DRY (ISCHEMIC) 08/18/2011 [facility] NEUROSURGERY PHYSICIAN, MIGUEL E 584.5 ACUTE KIDNEY FAILURE DUE TO TUBULAR NECROSIS 08/18/2011 [facility] NEUROSURGERY PHYSICIAN, MIGUEL E 785.4 GANGRENE DRY (ISCHEMIC) 08/18/2011 [...] K 785.4 GANGRENE DRY (ISCHEMIC) 08/18/2011 [facility] NEUROSURGERY PHYSICIAN, MIGUEL E 584.5 ACUTE KIDNEY FAILURE DUE TO TUBULAR NECROSIS 08/18/2011 [facility] NEUROSURG[facility] PHYSICIAN, MIGUEL E 785.4 GANGRENE DRY (ISCHEMIC) 08/18/2011 [...] K 785.4 GANGRENE DRY (ISCHEMIC) 08/18/2011 [facility] NEUROSURGERY PHYSICIAN, MIGUEL E 584.5 ACUTE KIDNEY FAILURE DUE TO TUBULAR NECROSIS 08/18/2011 [facility] NEUROSURGERY PHYSICIAN, MIGUEL E 785.4 GANGRENE DRY (ISCHEMIC) 08/18/2011 [facility] NEUROSURGERY PHYSICIAN, MIGUEL E 584.5 ACUTE KIDNEY FAILURE DUE TO TUBULAR NECROSIS 08/18/2011 [facility] NEUROSURG[facility] PHYSICIAN, MIGUEL E 785.4 GANGRENE DRY (ISCHEMIC) 08/18/2011 [facility] NEUROSURGERY PHYSICIAN, MIGUEL E 584.5 ACUTE KIDNEY FAILURE DUE TO TUBULAR NECROSIS 08/18/2011 [facility] NEUROSURGERY PHYSICIAN, MIGUEL E 785.4 GANGRENE DRY (ISCHEMIC) 08/18/2011 [...] ARVIZU APRN 785.4 GANGRENE DRY (ISCHEMIC) 08/18/2011 TEODORO LOPEZ DO K 584.5 ACUTE KIDNEY FAILURE DUE TO TUBULAR NECROSIS 08/18/2011 JESSICA DO TEODORO K 785.4 GANGRENE DRY (ISCHEMIC) 08/18/2011 MIRLANDE PATIÑO APRN 584.5 ACUTE KIDNEY FAILURE DUE TO TUBULAR NECROSIS 08/18/2011 MIRLANDE PATIÑO APRN 785.4 GANGRENE DRY (ISCHEMIC) 08/18/2011 MIRLANDE PATIÑO APRN 584.5 ACUTE KIDNEY FAILURE DUE TO TUBULAR NECROSIS 08/18/2011 MIRLANDE PATIÑO APRN 785.4 GANGRENE DRY (ISCHEMIC) 08/18/2011 JESSICA DO TEODORO K 584.5 ACUTE KIDNEY FAILURE DUE TO TUBULAR NECROSIS 08/18/2011 [facility] DO TEODORO K 785.4 GANGRENE DRY (ISCHEMIC) 08/18/2011 [...] FAILURE DUE TO TUBULAR NECROSIS 08/18/2011 [facility] DO TEODORO K 785.4 GANGRENE DRY (ISCHEMIC) 08/18/2011 [facility] DO, TEODORO K 584.5 ACUTE KIDNEY FAILURE DUE TO TUBULAR NECROSIS 08/18/2011 [facility] DO, TEODORO K 785.4 GANGRENE DRY (ISCHEMIC) 08/18/2011 [facility] DO, TEODORO K 584.5 ACUTE KIDNEY FAILURE DUE TO TUBULAR NECROSIS 08/18/2011 [facility] DO, TEODORO K 785.4 GANGRENE DRY (ISCHEMIC) 08/18/2011 [facility] NEUROSURGERY PHYSICIAN, MIGUEL E 584.5 ACUTE KIDNEY FAILURE DUE TO TUBULAR NECROSIS 08/18/2011 [facility] NEUROSURGERY PHYSICIAN, MIGUEL E 785.4 GANGRENE DRY (ISCHEMIC) 08/18/2011 [facility] DO, TEODORO K 584.5 ACUTE KIDNEY FAILURE DUE TO TUBULAR NECROSIS 08/18/2011 [facility] DO, TEODORO K 785.4 GANGRENE DRY (ISCHEMIC) 08/18/2011 [facility] NEUROSURGERY PHYSICIAN, MIGUEL E 584.5 ACUTE KIDNEY FAILURE DUE TO TUBULAR NECROSIS 08/18/2011 [facility] NEUROSURGERY PHYSICIAN, MIGUEL E 785.4 GANGRENE DRY (ISCHEMIC) 08/18/2011 [facility] NEUROSURGERY PHYSICIAN, MIGUEL E 584.5 ACUTE KIDNEY FAILURE DUE TO TUBULAR NECROSIS 08/18/2011 [facility] NEUROSURGERY PHYSICIAN, MIGUEL E 785.4 GANGRENE DRY (ISCHEMIC) 08/18/2011 [facility] DO, TEODORO K 584.5 ACUTE KIDNEY FAILURE DUE TO TUBULAR NECROSIS 08/18/2011 [facility] DO, TEODORO K 785.4 GANGRENE DRY (ISCHEMIC) 08/18/2011 [facility] NEUROSURGERY PHYSICIAN, MIGUEL E 584.5 ACUTE KIDNEY FAILURE DUE TO TUBULAR NECROSIS 08/18/2011 [facility] NEUROSURGERY PHYSICIAN, MIGUEL E 785.4 GANGRENE DRY (ISCHEMIC) 08/18/2011 [...] - UNCOMPLICATED, CONTROLLED 08/25/2011 NIGEL MOSER, CONNIE Akhtar 250.00 DIABETES MELLITUS TYPE 2 - UNCOMPLICATED, [...] TYPE 2 - UNCOMPLICATED, CONTROLLED 08/25/2011 [facility] DO TEODORO K 250.00 DIABETES MELLITUS TYPE 2 - UNCOMPLICATED, CONTROLLED 08/25/2011 [facility] NEUROSURGERY PHYSICIAN, MIRLANDE R 250.00 DIABETES MELLITUS TYPE 2 - [...] MELLITUS TYPE 2 - UNCOMPLICATED, CONTROLLED 08/25/2011 VIJAY ARVIZU APRNSIE E 250.00 DIABETES MELLITUS TYPE 2 - UNCOMPLICATED, CONTROLLED 08/25/2011 [facility] DO, TEODORO K 250.00 DIABETES MELLITUS TYPE 2 - UNCOMPLICATED, CONTROLLED 08/25/2011 VIJAY ARVIZU APRNSIE E 250.00 DIABETES MELLITUS TYPE 2 - UNCOMPLICATED, CONTROLLED 08/25/2011 VIJAY ARVIZU APRNSIE E 250.00 DIABETES MELLITUS TYPE 2 - UNCOMPLICATED, CONTROLLED 08/25/2011 [facility] DO, TEODORO K 250.00 DIABETES MELLITUS TYPE 2 - UNCOMPLICATED, CONTROLLED 08/25/2011 VIJAY ARVIZU APRNSIE E 250.00 DIABETES MELLITUS TYPE 2 - [...] PHYSICAL CONDITION 08/28/2011 FANNY RODRIGUES MD 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 08/28/2011 [facility] DO, TEODORO K 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 08/28/2011 [facility] DO, TEODORO K 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 08/28/2011 [facility] DO, TEODORO K 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 08/28/2011 [facility] DO, TEODORO K 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 08/28/2011 [facility] DO, TEODORO K 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 08/28/2011 VIJAY ARVIZU APRNSIE E 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 08/28/2011 CONNIE MANNING MD 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 08/28/2011 [facility] DO, TEODORO K 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 08/28/2011 [facility] DO, TEODORO K 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 08/28/2011 VIJAY ARVIZU APRNSIE E 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 08/28/2011 [facility] DO, [...] MIRLANDE PATIÑO APRN 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 08/28/2011 MAKSIMYASMANI PECK MIGUEL E 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 08/28/2011 [...] MIGUEL E 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 08/28/2011 LOPEZ , TEODORO K 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 08/28/2011 [facility] NEUROSURGERY PHYSICIAN, MIGUEL E 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 08/28/2011 [facility] NEUROSURGERY PHYSICIAN, MIGUEL E 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 08/28/2011 LOPEZ , TEODORO K 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81 Vaccines Prophylactic Need Against Influenza 10/06/2011 TEODORO LOPEZ DO 250.60 DIABETES WITH DIABETIC NEUROPATHY 10/06/2011 JESSICA HAMM TEODORO K V03.82 Need For Vaccination Pneumococcal 10/06/2011 [facility] DO, TEODORO K V04.81 Vaccines Prophylactic Need Against Influenza 10/06/2011 [facility] DO, TEODORO K 250.60 DIABETES WITH DIABETIC NEUROPATHY 10/06/2011 [facility] DO, TEODORO K V03.82 Need For Vaccination Pneumococcal 10/06/2011 [facility] DO, TEODORO K V04.81 Vaccines Prophylactic Need Against Influenza 10/06/2011 [facility] MIGUEL PECK 250.60 DIABETES WITH DIABETIC NEUROPATHY 10/06/2011 [facility] MIGUEL PECK E V03.82 Need For Vaccination Pneumococcal 10/06/2011 [facility] NEUROSURGERY PHYSICIANMIGUEL E V04.81 Vaccines Prophylactic Need Against Influenza 10/06/2011 [facility] DO TEODORO K 250.60 DIABETES WITH DIABETIC NEUROPATHY 10/06/2011 JESSICA DO, TEODORO K V03.82 Need For Vaccination Pneumococcal 10/06/2011 [facility] DO TEODORO K V04.81 Vaccines Prophylactic Need Against Influenza 10/06/2011 [facility] MIGUEL PECK 250.60 DIABETES WITH DIABETIC NEUROPATHY 10/06/2011 [facility] MIGUEL PECK E V03.82 Need For Vaccination Pneumococcal 10/06/2011 [facility] NEUROSURGERY PHYSICIANLATOYA AkhtarE E V04.81 Vaccines Prophylactic Need Against Influenza 10/06/2011 [facility] DOVIJAYA K 250.60 DIABETES WITH DIABETIC NEUROPATHY [...] Vaccines Prophylactic Need Against Influenza 10/06/2011 JESSICA DO, TEODORO K 250.60 DIABETES WITH DIABETIC [...] Starr 250.60 DIABETES WITH DIABETIC NEUROPATHY 10/06/2011 JESSICA [...] Vaccines Prophylactic Need Against Influenza 10/06/2011 [facility] NEUROSURGERY PHYSICIANMIGUEL E 250.60 DIABETES WITH DIABETIC NEUROPATHY 10/06/2011 [facility] NEUROSURGERY PHYSICIANMIGUEL E V03.82 Need For Vaccination Pneumococcal 10/06/2011 [facility] NEUROSURGERY PHYSICIANLATOYAE E V04.81 Vaccines Prophylactic Need Against Influenza [...] Vaccines Prophylactic Need Against Influenza 10/06/2011 [facility] NEUROSURGERY PHYSICIANMIGUEL 250.60 DIABETES WITH DIABETIC NEUROPATHY 10/06/2011 [facility] NEUROSURGERY PHYSICIANMIGUEL E V03.82 Need For Vaccination Pneumococcal 10/06/2011 [facility] NEUROSURGERY PHYSICIANMIGUEL V04.81 Vaccines Prophylactic Need Against Influenza 10/06/2011 [facility] NEUROSURGERY PHYSICIANMIGUEL 250.60 DIABETES WITH DIABETIC NEUROPATHY 10/06/2011 [facility] NEUROSURGERY PHYSICIANMIGUEL V03.82 Need For Vaccination Pneumococcal 10/06/2011 [facility] MIGUEL PECK E V04.81 Vaccines Prophylactic Need Against Influenza 10/06/2011 [facility] MIGUEL PECK E 250.60 DIABETES WITH DIABETIC NEUROPATHY 10/06/2011 [facility] MIGUEL PECK E V03.82 Need For Vaccination Pneumococcal 10/06/2011 [facility] MIGUEL PECK E V04.81 Vaccines Prophylactic [...] V04.81 Vaccines Prophylactic Need Against Influenza 10/06/2011 [facility] MIGUEL PECK 250.60 DIABETES WITH DIABETIC NEUROPATHY 10/06/2011 [facility] MIGUEL PECK E V03.82 Need For Vaccination Pneumococcal 10/06/2011 [facility] MIGUEL PECK E V04.81 Vaccines Prophylactic [...] R V03.82 Need For Vaccination Pneumococcal 10/06/2011 MIRLANDE [...] V04.81 VACCINES PROPHYLACTIC NEED AGAINST INFLUENZA 10/06/2011 MIGUEL ARVIZU APRN 250.60 DIABETES WITH DIABETIC NEUROPATHY 10/06/2011 MIGUEL ARVIZU APRN V03.82 NEED FOR VACCINATION PNEUMOCOCCAL 10/06/2011 MIGUEL ARVIZU APRN V04.81 VACCINES PROPHYLACTIC NEED AGAINST INFLUENZA 10/06/2011 JESSICA DOTEODORO 250.60 DIABETES WITH DIABETIC NEUROPATHY 10/06/2011 [facility] DO, TEODORO K V03.82 NEED FOR VACCINATION PNEUMOCOCCAL 10/06/2011 [facility] DO, TEODORO K V04.81 VACCINES PROPHYLACTIC NEED AGAINST INFLUENZA 10/06/2011 MIGUEL ARVIZU APRN 250.60 DIABETES WITH DIABETIC NEUROPATHY 10/06/2011 [facility] MIGUEL PECK V03.82 NEED FOR VACCINATION PNEUMOCOCCAL 10/06/2011 [facility] MIGUEL PECK V04.81 VACCINES PROPHYLACTIC NEED AGAINST INFLUENZA 10/06/2011 [facility] MIGUEL PECK 250.60 DIABETES WITH DIABETIC NEUROPATHY 10/06/2011 [facility] MIGUEL PECK E V03.82 NEED FOR VACCINATION PNEUMOCOCCAL 10/06/2011 [facility] MIGUEL PECK V04.81 VACCINES PROPHYLACTIC NEED AGAINST INFLUENZA 10/06/2011 TE[facility]O LOPEZ DO K 250.60 DIABETES WITH DIABETIC NEUROPATHY 10/06/2011 VIJAY LOPEZ DOA K V03.82 NEED FOR VACCINATION PNEUMOCOCCAL 10/06/2011 TEODORO LOPEZ DO K V04.81 VACCINES PROPHYLACTIC NEED AGAINST INFLUENZA 10/06/2011 [facility] MIGUEL PECK 250.60 DIABETES WITH DIABETIC NEUROPATHY 10/06/2011 [facility] MIGUEL PECK V03.82 NEED FOR VACCINATION PNEUMOCOCCAL 10/06/2011 [facility] MIGUEL PECK V04.81 VACCINES PROPHYLACTIC NEED [...] ARVIZU APRN E V58.31 WOUND DRESSING 11/25/2011 NIGEL MOSER, CONNIE Akhtar V58.31 WOUND DRESSING 11/25/2011 [facility] DO, TEODORO K V58.31 WOUND DRESSING 11/25/2011 [facility] DO, TEODORO K V58.31 WOUND DRESSING 11/25/2011 LATOYA ARVIZU APRNE E V58.31 WOUND DRESSING 11/25/2011 [facility] DO, TEODORO K V58.31 WOUND DRESSING 11/25/2011 LATOYA ARVIZU APRNE E V58.31 WOUND DRESSING 11/25/2011 [facility] DO, [...] DO, TEODORO K V58.31 WOUND DRESSING 11/25/2011 [facility] NEUROSURGERY PHYSICIAN, MIGUEL E V58.31 WOUND DRESSING 11/25/2011 [facility] DO, TEODORO K V58.31 WOUND DRESSING 11/25/2011 [facility] DO, TEODORO K V58.31 WOUND DRESSING 11/25/2011 [facility] DO, TEODORO K V58.31 WOUND DRESSING 11/25/2011 VIJAY ARVIZU APRNSIE E V58.31 WOUND DRESSING 11/25/2011 VIJAY ARVIZU APRNSIE E V58.31 WOUND DRESSING 11/25/2011 LATOYA ARVIZU APRNE E V58.31 WOUND DRESSING 11/25/2011 [facility] PECK MIRLANDE R V58.31 WOUND DRESSING 11/25/2011 FANNY RODRIGUES MD V58.31 WOUND DRESSING 11/25/2011 [facility] NEUROSURGERY PHYSICIAN, MIRLANDE R V58.31 WOUND DRESSING 11/25/2011 LATOYA ARVIZU APRNE E V58.31 WOUND DRESSING 11/25/2011 LOPEZ DO, TEODORO K V58.31 WOUND DRESSING 11/25/2011 KAYLYN PECK, MIRLANDE R V58.31 WOUND DRESSING 11/25/2011 PATIÑO NEUROSURGERY PHYSICIAN, MIRLANDE R V58.31 WOUND DRESSING 11/25/2011 LOPEZ [...] DO, TEODORO K V58.31 WOUND DRESSING 11/25/2011 [facility] PECK MIGUEL E V58.31 WOUND DRESSING 11/25/2011 MIGUEL ARVIZU APRN E V58.31 WOUND DRESSING 11/25/2011 VIJAY LOPEZ DOA K V58.31 WOUND DRESSING 11/25/2011 MIGUEL ARVIZU [...] 997.62 CHRONIC INFECTION OF AMPUTATION STUMP 02/24/2012 TEODORO LOPEZ DO K 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 02/24/2012 LOPEZ DO, TEODORO K 706.2 SEBACEOUS CYST 02/24/2012 LOPEZ DO, TEODOOR K 997.62 CHRONIC INFECTION OF AMPUTATION STUMP [...] OF AMPUTATION STUMP 02/24/2012 MIGUEL ARVIZU APRN 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 02/24/2012 MIGUEL ARVIZU APRN 706.2 SEBACEOUS CYST 02/24/2012 MIGUEL ARVIZU APRN 997.62 CHRONIC INFECTION OF AMPUTATION STUMP 02/24/2012 CONNIE MANNING MD 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 02/24/2012 CONNIE MANNING MD 706.2 SEBACEOUS CYST 02/24/2012 CONNIE MANNING MD 997.62 CHRONIC INFECTION OF AMPUTATION STUMP [...] CHRONIC INFECTION OF AMPUTATION STUMP 02/24/2012 HELLWIG NEUROSURGERY PHYSICIAN, MIGUEL E 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 02/24/2012 MAKSIMYASMANI NEUROSURGERY PHYSICIAN, MIGUEL E 706.2 SEBACEOUS CYST 02/24/2012 MAKSIMYASMANI NEUROSURGERY PHYSICIAN, MIGUEL E 997.62 CHRONIC INFECTION OF AMPUTATION STUMP 02/24/2012 LOPEZ DO, TEODORO K 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 02/24/2012 LOPEZ DO, TEODORO K 706.2 SEBACEOUS CYST 02/24/2012 LOPEZ DO, TEODORO K 997.62 CHRONIC INFECTION OF AMPUTATION STUMP 02/24/2012 MAKSIMYASMANI NEUROSURGERY PHYSICIAN, MIGUEL E 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 02/24/2012 [facility] MIGUEL E 706.2 SEBACEOUS CYST 02/24/2012 [facility], MIGUEL E 997.62 CHRONIC INFECTION OF AMPUTATION [...] PECK R 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 02/24/2012 PATIÑO MIRLANDE PECK 706.2 SEBACEOUS CYST 02/24/2012 PATIÑO MIRLANDE PECK 997.62 CHRONIC INFECTION OF AMPUTATION STUMP 02/24/2012 [...] GRUBER APRNSIE E 706.2 SEBACEOUS CYST 02/24/2012 VIJAY ARVIZU APRNSIE E 997.62 CHRONIC INFECTION OF AMPUTATION STUMP 02/24/2012 VIJAY ARVIZU APRNSIE E 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 02/24/2012 VIJAY ARVIZU APRNSIE E 706.2 SEBACEOUS CYST 02/24/2012 MAKSIMVIJAY GRUBER APRNSIE E 997.62 CHRONIC INFECTION OF AMPUTATION STUMP 02/24/2012 VIJAY ARVIZU APRNSIE E 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 02/24/2012 MAKSIMVIJAY GRUBER APRNSIE E 706.2 SEBACEOUS CYST 02/24/2012 VIJAY [...] 997.62 CHRONIC INFECTION OF AMPUTATION STUMP 02/24/2012 PATIÑOMIRLANDE GUPTA APRN R 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 02/24/2012 [...] DO, TEODORO K 706.2 SEBACEOUS CYST 02/24/2012 VIJAY LOPEZ DOA K 997.62 CHRONIC INFECTION OF AMPUTATION STUMP [...] CHRONIC INFECTION OF AMPUTATION STUMP 02/24/2012 [facility] PECK MIGUEL E 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 02/24/2012 [facility] PECK MIGUEL E 706.2 SEBACEOUS CYST 02/24/2012 [facility] PECK MIGUEL E 997.62 CHRONIC INFECTION OF AMPUTATION STUMP 02/24/2012 LOPEZ DO, TEODORO K 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 02/24/2012 LOPEZ DO, TEODORO K 706.2 SEBACEOUS CYST 02/24/2012 LOPEZ DO, TEODORO K 997.62 CHRONIC INFECTION OF AMPUTATION STUMP 02/24/2012 [facility] PECK MIGUEL E 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 02/24/2012 [facility] PECK MIGUEL E 706.2 SEBACEOUS CYST 02/24/2012 [facility] PECK MIGUEL E 997.62 CHRONIC INFECTION OF AMPUTATION STUMP 02/24/2012 [facility] NEUROSURGERY PHYSICIAN MIGUEL E 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 02/24/2012 [facility] NEUROSURGERY PHYSICIAN, MIGUEL E 706.2 SEBACEOUS CYST 02/24/2012 [facility] NEUROSURGERY PHYSICIAN, MIGUEL E 997.62 CHRONIC INFECTION OF AMPUTATION STUMP 02/24/2012 LOPEZ DO, TEODORO K 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 02/24/2012 LOPEZ DO, TEODORO K 706.2 SEBACEOUS CYST 02/24/2012 LOPEZ DO, TEODORO K 997.62 CHRONIC INFECTION OF AMPUTATION STUMP 02/24/2012 MIGUEL ARVIZU APRN E 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 02/24/2012 MIGUEL ARVIZU APRN E 706.2 SEBACEOUS CYST 02/24/2012 MIGUEL ARVIZU APRN E 997.62 CHRONIC INFECTION OF AMPUTATION STUMP 02/24/2012 LOPEZ DO, TEODORO K 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 02/24/2012 LOPEZ DO, TEODORO K 706.2 SEBACEOUS CYST 02/24/2012 LOPEZ DO, TEODORO K 997.62 CHRONIC INFECTION OF AMPUTATION STUMP 03/24/2012 FANNY RODRIGUES MD 894.0 WOUND OPEN LOWER LIMB 03/24/2012 FANNY RODRIGUES MD 894.0 WOUND OPEN LOWER LIMB 03/24/2012 894.0 WOUND OPEN LOWER LIMB 03/24/2012 894.0 WOUND OPEN LOWER LIMB 03/24/2012 894.0 WOUND OPEN LOWER LIMB 03/24/2012 FANNY RODRIGUES MD 894.0 WOUND OPEN LOWER LIMB 03/24/2012 894.0 WOUND OPEN LOWER LIMB 03/24/2012 894.0 WOUND OPEN LOWER LIMB 03/24/2012 FANNY RODRIGUES MD 894.0 WOUND OPEN LOWER LIMB 03/24/2012 LOPEZ [...] WOUND OPEN LOWER LIMB 03/24/2012 LOPEZ DO, ETODORO K 894.0 WOUND OPEN LOWER LIMB 03/24/2012 [...] K 894.0 WOUND OPEN LOWER LIMB 03/24/2012 LOEPZ DO, TEODORO K 894.0 WOUND OPEN LOWER LIMB 03/24/2012 MIGUEL ARVIZU APRN E 894.0 WOUND OPEN LOWER LIMB 03/24/2012 MIGUEL ARVIZU APRN E 894.0 WOUND OPEN LOWER LIMB 03/24/2012 MIGUEL ARVIZU APRN E 894.0 WOUND OPEN LOWER LIMB 03/24/2012 MIRLANDE PATIÑO APRN 894.0 WOUND OPEN LOWER LIMB 03/24/2012 FANNY RODRIGUES MD 894.0 WOUND OPEN LOWER LIMB 03/24/2012 MIRLANDE PATIÑO APRN 894.0 WOUND OPEN LOWER LIMB 03/24/2012 VIJAY ARVIZU APRNSIE E 894.0 WOUND OPEN LOWER LIMB 03/24/2012 LOPEZ DO, TEODORO K 894.0 WOUND OPEN LOWER LIMB 03/24/2012 MIRLANDE PATIÑO APRN 894.0 WOUND OPEN LOWER LIMB 03/24/2012 PATIÑO NEUROSURGERY PHYSICIANMIRLANDE Akhtar 894.0 WOUND OPEN LOWER LIMB 03/24/2012 [...] E 894.0 WOUND OPEN LOWER LIMB 03/24/2012 [facility] PECK MIGUEL E 894.0 WOUND OPEN LOWER LIMB 03/24/2012 LOPEZ DO, TEODORO K 894.0 WOUND OPEN LOWER LIMB 03/24/2012 [facility] PCEK MIGUEL E 894.0 WOUND OPEN LOWER LIMB 03/24/2012 [...] K 787.1 heartburn 09/27/2012 MIGUEL ARVIZU APRN 787.1 heartburn 09/27/2012 NIGEL MOSER, CONNIE Akhtar 787.1 heartburn 09/27/2012 LOPEZ DO, TEODORO K 787.1 heartburn 09/27/2012 LOPEZ DO, TEODORO K 787.1 heartburn 09/27/2012 MIGUEL ARVIZU APRN E 787.1 heartburn 09/27/2012 LOPEZ DO, TEODORO K 787.1 heartburn 09/27/2012 MIGUEL ARVIZU APRN 787.1 heartburn 09/27/2012 LOPEZ DO, TEODORO [...] K 787.1 heartburn 09/27/2012 MIGUEL ARVIZU APRN 787.1 heartburn 09/27/2012 LOPEZ DO, TEODORO K 787.1 heartburn 09/27/2012 LOPEZ DO, TEODORO K 787.1 heartburn 09/27/2012 LOPEZ DO, TEODORO K 787.1 heartburn 09/27/2012 MIGUEL ARVIZU APRN 787.1 heartburn 09/27/2012 [facility] APRNSIE E 787.1 heartburn 09/27/2012 [facility] APRNSIE E 787.1 heartburn 09/27/2012 MIRLANDE PATIÑO APRN R 787.1 heartburn 09/27/2012 LILIA MOSER, FANNY 787.1 heartburn 09/27/2012 MIRLANDE PATIÑO APRN 787.1 heartburn 09/27/2012 [facility] APRN E 787.1 heartburn 09/27/2012 LOPEZ DO, TEODORO K 787.1 heartburn 09/27/2012 MIRLANDE PATIÑO APRN 787.1 heartburn 09/27/2012 IMRLANDE PATIÑO APRN 787.1 heartburn 09/27/2012 LOPEZ DO, TEODORO K 787.1 heartburn 09/27/2012 LOPEZ DO, TEODORO K 787.1 heartburn 09/27/2012 LOPEZ DO, TEODORO K 787.1 heartburn 09/27/2012 LOEPZ DO, TEODORO K 787.1 heartburn 09/27/2012 LOPEZ DO, TEODORO K 787.1 heartburn 09/27/2012 LOPEZ DO, TEODORO K 787.1 HEARTBURN 09/27/2012 [facility] APRNSIE E 787.1 HEARTBURN 09/27/2012 LOPEZ DO, TEODORO K 787.1 HEARTBURN 09/27/2012 [facility] APRNSIE E 787.1 HEARTBURN 09/27/2012 [facility] APRNSIE E 787.1 HEARTBURN 09/27/2012 LOPEZ DO, TEODORO K 787.1 HEARTBURN 09/27/2012 [facility] PECK MIGUEL E 787.1 HEARTBURN 09/27/2012 LOPEZ DO, TEODORO K 787.1 HEARTBURN 04/07/2013 LILIA MOSER, FANNY 272.4 DYSLIPIDEMIA 04/07/2013 LOPEZ DO, TEODORO K 272.4 DYSLIPIDEMIA 04/07/2013 LOPEZ DO, TEODORO K 272.4 DYSLIPIDEMIA 04/07/2013 LOPEZ DO, TEODORO K 272.4 DYSLIPIDEMIA 04/07/2013 LOPEZ DO, TEODORO K 272.4 DYSLIPIDEMIA 04/07/2013 LOPEZ DO, TEODORO K 272.4 DYSLIPIDEMIA 04/07/2013 [facility] NEUROSURGERY PHYSICIAN, MIGUEL E 272.4 DYSLIPIDEMIA 04/07/2013 NIGEL MOSER, CONNIE Akhtar 272.4 DYSLIPIDEMIA 04/07/2013 LOPEZ DO, TEODORO K 272.4 DYSLIPIDEMIA 04/07/2013 LOPEZ DO, TEODORO K 272.4 DYSLIPIDEMIA 04/07/2013 [facility] PHYSICIAN, MIGUEL E 272.4 DYSLIPIDEMIA 04/07/2013 LOPEZ DO, TEODORO K 272.4 DYSLIPIDEMIA 04/07/2013 [facility] NEUROSURGERY PHYSICIAN, MIGUEL E 272.4 DYSLIPIDEMIA 04/07/2013 LOPEZ DO, [...] K 272.4 DYSLIPIDEMIA 04/07/2013 MIRLANDE PATIÑO APRN R 272.4 DYSLIPIDEMIA 04/07/2013 LOPEZ DO, TEODORO K 272.4 DYSLIPIDEMIA 04/07/2013 LOPEZ DO, TEODORO K 272.4 DYSLIPIDEMIA 04/07/2013 LOPEZ DO, TEODORO K 272.4 DYSLIPIDEMIA 04/07/2013 LOPEZ DO, TEODORO K 272.4 DYSLIPIDEMIA 04/07/2013 LOPEZ DO, TEODORO K 272.4 DYSLIPIDEMIA 04/07/2013 LOPEZ DO, TEODORO K 272.4 DYSLIPIDEMIA 04/07/2013 [facility] PHYSICIAN, MIGUEL E 272.4 DYSLIPIDEMIA 04/07/2013 LOPEZ DO, TEODORO K 272.4 DYSLIPIDEMIA 04/07/2013 LOPEZ DO, TEODORO K 272.4 DYSLIPIDEMIA 04/07/2013 LOPEZ DO, TEODORO K 272.4 DYSLIPIDEMIA 04/07/2013 [facility] P[facility]K, MIGUEL E 272.4 DYSLIPIDEMIA 04/07/2013 [facility] NEUROSUR[facility] PHYSICIAN, MIGUEL E 272.4 DYSLIPIDEMIA 04/07/2013 [facility] P[facility], MIGUEL E 272.4 DYSLIPIDEMIA 04/07/2013 MIRLANDE PATIÑO APRN 272.4 DYSLIPIDEMIA 04/07/2013 LILIA MOSER, FANNY 272.4 DYSLIPIDEMIA 04/07/2013 PATIÑO NEUROSURGERY PHYSICIAN, MIRLANDE R 272.4 DYSLIPIDEMIA 04/07/2013 [facility] PECK MIGUEL E 272.4 DYSLIPIDEMIA 04/07/2013 LOPEZ DO, TEODORO K 272.4 DYSLIPIDEMIA 04/07/2013 PATIÑO NEUROSURGERY PHYSICIAN, MIRLANDE R 272.4 DYSLIPIDEMIA 04/07/2013 PATIÑO NEUROSURGERY PHYSICIAN, MIRLANDE R 272.4 DYSLIPIDEMIA 04/07/2013 LOPEZ DO, TEODORO K 272.4 DYSLIPIDEMIA 04/07/2013 LOPEZ DO, TEODORO K 272.4 DYSLIPIDEMIA 04/07/2013 LOPEZ DO, TEODORO K 272.4 DYSLIPIDEMIA 04/07/2013 LOPEZ DO, TEODORO K 272.4 DYSLIPIDEMIA 04/07/2013 LOPEZ DO, TEODORO K 272.4 DYSLIPIDEMIA 04/07/2013 LOPEZ DO, TEODORO K 272.4 DYSLIPIDEMIA 04/07/2013 [facility] PECK MIGUEL E 272.4 DYSLIPIDEMIA 04/07/2013 LOPEZ DO, TEODORO K 272.4 DYSLIPIDEMIA 04/07/2013 VIJAY ARVIZU APRNSIE E 272.4 DYSLIPIDEMIA 04/07/2013 [facility] PECK MIGUEL E 272.4 DYSLIPIDEMIA 04/07/2013 LOPEZ DO, TEODORO K 272.4 DYSLIPIDEMIA 04/07/2013 [facility] E 272.4 DYSLIPIDEMIA 04/07/2013 LOPEZ DO, TEODORO K 272.4 DYSLIPIDEMIA 07/20/2013 LOPEZ DO, TEODORO K 724.2 LUMBAGO 07/20/2013 LOPEZ DO, TEODORO K 724.2 LUMBAGO 07/20/2013 LOPEZ DO, TEODORO K 724.2 LUMBAGO 07/20/2013 LOPEZ DO, TEODORO K 724.2 LUMBAGO 07/20/2013 [facility] MIGUEL E 724.2 LUMBAGO 07/20/2013 NIGEL MOSER, CONNIE Akhtar 724.2 LUMBAGO 07/20/2013 LOPEZ DO, TEODORO K 724.2 LUMBAGO 07/20/2013 LOPEZ DO, TEODORO K 724.2 LUMBAGO 07/20/2013 [facility] MIGUEL E 724.2 LUMBAGO 07/20/2013 LOPEZ DO, TEODORO K 724.2 LUMBAGO 07/20/2013 MIGUEL ARVIZU APRN E 724.2 LUMBAGO 07/20/2013 LOPEZ DO, TEODORO [...] LOPEZ DO, TEODORO K 724.2 LUMBAGO 07/20/2013 MIGUEL ARVIZU APRN E 724.2 LUMBAGO 07/20/2013 LOPEZ DO, TEODORO K 724.2 LUMBAGO 07/20/2013 LOPEZ DO, TEODORO K 724.2 LUMBAGO 07/20/2013 LOPEZ DO, TEODORO K 724.2 LUMBAGO 07/20/2013 LATOYA ARVIZU APRNE E 724.2 LUMBAGO 07/20/2013 VIJAY ARVIZU APRNSIE E 724.2 LUMBAGO 07/20/2013 MIGUEL ARVIZU APRN E 724.2 LUMBAGO 07/20/2013 MIRLANDE PATIÑO APRN 724.2 LUMBAGO 07/20/2013 FANNY RODRIGUES MD 724.2 LUMBAGO 07/20/2013 MIRLANDE PATIÑO APRN 724.2 LUMBAGO 07/20/2013 MIGUEL ARVIZU APRN 724.2 LUMBAGO 07/20/2013 LOPEZ DO, TEODORO K 724.2 LUMBAGO 07/20/2013 MIRLANDE PATIÑO APRN 724.2 LUMBAGO 07/20/2013 PATIÑOMIRLANDE GUPTA APRN R 724.2 LUMBAGO 07/20/2013 LOPEZ DO, TEODORO K 724.2 LUMBAGO 07/20/2013 LOPEZ DO, TEODORO K 724.2 LUMBAGO 07/20/2013 LOPEZ DO, TEODORO K 724.2 LUMBAGO 07/20/2013 LOPEZ DO, TEODORO K 724.2 LUMBAGO 07/20/2013 LOPEZ DO, TEODORO K 724.2 LUMBAGO 07/20/2013 LOPEZ DO, TEODORO K 724.2 LUMBAGO 07/20/2013 VIJAY ARVIZU APRNSIE E 724.2 LUMBAGO 07/20/2013 LOPEZ DO, TEODORO K 724.2 LUMBAGO 07/20/2013 VIJAY ARVIZU APRNSIE E 724.2 LUMBAGO 07/20/2013 VIJAY ARVIZU APRNSIE E 724.2 LUMBAGO 07/20/2013 LOPEZ DO, TEODORO K 724.2 LUMBAGO 07/20/2013 LATOYA ARVIZU APRNE E 724.2 LUMBAGO 07/20/2013 LOPEZ DO, TEODORO K 724.2 LUMBAGO 08/14/2013 LILIA MOSER, [place] E 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 08/17/2013 LOPEZ DO TEODORO K 311 DEPRESSIVE DISORDER NOT ELSEWHERE CLASSIFIED 08/17/2013 LOPEZ DO TEODORO K 311 DEPRESSIVE DISORDER NOT ELSEWHERE CLASSIFIED 08/17/2013 MIGUEL ARVIZU APRN 311 DEPRESSIVE DISORDER NOT ELSEWHERE CLASSIFIED 08/17/2013 NIGEL MOSER, CONNIE Akhtar 311 DEPRESSIVE DISORDER NOT ELSEWHERE CLASSIFIED 08/17/2013 LOPEZ DO, TEODORO K 311 DEPRESSIVE DISORDER NOT ELSEWHERE CLASSIFIED 08/17/2013 LOPEZ DO, TEODORO K 311 DEPRESSIVE DISORDER NOT ELSEWHERE CLASSIFIED 08/17/2013 MIGUEL ARVIZU APRN 311 DEPRESSIVE DISORDER NOT ELSEWHERE CLASSIFIED 08/17/2013 LOPEZ DO TEODORO K 311 DEPRESSIVE DISORDER NOT ELSEWHERE CLASSIFIED 08/17/2013 MIGUEL ARVIZU APRN E 311 DEPRESSIVE DISORDER NOT ELSEWHERE CLASSIFIED [...] DEPRESSIVE DISORDER NOT ELSEWHERE CLASSIFIED 08/17/2013 PATIÑO NEUROSURGERY PHYSICIAN, MIRLANDE R 311 DEPRESSIVE DISORDER NOT ELSEWHERE CLASSIFIED 08/17/2013 LOPEZ DO, TEODORO K 311 DEPRESSIVE DISORDER NOT ELSEWHERE CLASSIFIED 08/17/2013 LOPEZ DO, TEODORO K 311 DEPRESSIVE DISORDER NOT ELSEWHERE CLASSIFIED 08/17/2013 LOPEZ DO, TEODROO K 311 DEPRESSIVE DISORDER NOT ELSEWHERE CLASSIFIED 08/17/2013 LOPEZ DO, TEODORO K 311 DEPRESSIVE DISORDER NOT ELSEWHERE CLASSIFIED 08/17/2013 LOPEZ DO, TEODORO K 311 DEPRESSIVE DISORDER NOT ELSEWHERE CLASSIFIED 08/17/2013 LOPEZ DO, TEODORO K 311 DEPRESSIVE DISORDER NOT ELSEWHERE CLASSIFIED 08/17/2013 HELLWIG NEUROSURGERY PHYSICIAN, MIGUEL E 311 DEPRESSIVE DISORDER NOT ELSEWHERE CLASSIFIED 08/17/2013 LOPEZ DO, TEODORO K 311 DEPRESSIVE DISORDER NOT ELSEWHERE CLASSIFIED 08/17/2013 LOPEZ DO, TEODORO K 311 DEPRESSIVE DISORDER NOT ELSEWHERE CLASSIFIED 08/17/2013 LOPEZ DO, TEODORO K 311 DEPRESSIVE DISORDER NOT ELSEWHERE CLASSIFIED 08/17/2013 HELLWIG NEUROSURGERY PHYSICIAN, MIGUEL E 311 DEPRESSIVE DISORDER NOT ELSEWHERE CLASSIFIED 08/17/2013 HELLWIG NEUROSURGERY PHYSICIAN, MIGUEL E 311 DEPRESSIVE DISORDER NOT ELSEWHERE CLASSIFIED 08/17/2013 HELLWIG NEUROSURGERY PHYSICIAN, MIGUEL E 311 DEPRESSIVE DISORDER NOT ELSEWHERE CLASSIFIED 08/17/2013 PATIÑO NEUROSURGERY PHYSICIAN, MIRLANDE R 311 DEPRESSIVE DISORDER NOT ELSEWHERE CLASSIFIED 08/17/2013 FANNY RODRIGUES MD 311 DEPRESSIVE DISORDER NOT ELSEWHERE CLASSIFIED 08/17/2013 KAYLYN NEUROSURGERY PHYSICIAN, MIRLANDE R 311 DEPRESSIVE DISORDER NOT ELSEWHERE CLASSIFIED 08/17/2013 HELLYASMANI NEUROSURGERY PHYSICIAN, MIGUEL E 311 DEPRESSIVE DISORDER NOT ELSEWHERE CLASSIFIED 08/17/2013 LOPEZ DO, TEODORO K 311 DEPRESSIVE DISORDER NOT ELSEWHERE CLASSIFIED 08/17/2013 KAYLYN NEUROSURGERY PHYSICIAN MIRLANDE R 311 DEPRESSIVE DISORDER NOT ELSEWHERE [...] DEPRESSIVE DISORDER NOT ELSEWHERE CLASSIFIED 08/17/2013 HELLWIG NEUROSURGERY PHYSICIAN, MIGUEL E 311 DEPRESSIVE DISORDER NOT ELSEWHERE CLASSIFIED 08/17/2013 LOPEZ DO, TEODORO K 311 DEPRESSIVE DISORDER NOT ELSEWHERE CLASSIFIED 08/17/2013 HELLYASMANI NEUROSURGERY PHYSICIAN, MIGUEL E 311 DEPRESSIVE DISORDER NOT ELSEWHERE CLASSIFIED 08/17/2013 HELLWIG NEUROSURGERY PHYSICIAN MIGUEL E 311 DEPRESSIVE DISORDER NOT ELSEWHERE CLASSIFIED 08/17/2013 LOPEZ DO, TEODORO K 311 DEPRESSIVE DISORDER NOT ELSEWHERE CLASSIFIED 08/17/2013 HELLWIG NEUROSURGERY PHYSICIAN, MIGUEL E 311 DEPRESSIVE DISORDER NOT ELSEWHERE CLASSIFIED 08/17/2013 LOPEZ DO, TEODORO K 311 DEPRESSIVE DISORDER NOT ELSEWHERE CLASSIFIED 09/25/2013 HELLYASMANI NEUROSURGERY PHYSICIAN MIGUEL E V67.59 OTHER FOLLOW-UP EXAMINATION 09/25/2013 NIGEL MOSER, CONNIE Akhtar V67.59 OTHER FOLLOW-UP EXAMINATION 09/25/2013 LOPEZ DO, TEODORO K V67.59 OTHER FOLLOW-UP EXAMINATION 09/25/2013 LOPEZ DO, TEODORO K V67.59 OTHER FOLLOW-UP EXAMINATION 09/25/2013 [facility]IG NEUROSURGERY PHYSICIAN MIGUEL E V67.59 OTHER FOLLOW-UP EXAMINATION 09/25/2013 LOPEZ DO, TEODORO K V67.59 OTHER FOLLOW-UP EXAMINATION 09/25/2013 HELLWIG NEUROSURGERY PHYSICIAN MIGUEL E V67.59 OTHER FOLLOW-UP EXAMINATION 09/25/2013 [...] TEODORO K V67.59 OTHER FOLLOW-UP EXAMINATION 09/25/2013 LATOYA ARVIZU APRNE E V67.59 OTHER FOLLOW-UP EXAMINATION 09/25/2013 LOPEZ DO, TEODORO K V67.59 OTHER FOLLOW-UP EXAMINATION 09/25/2013 LOPEZ DO, TEODORO K V67.59 OTHER FOLLOW-UP EXAMINATION 09/25/2013 LOPEZ DO, TEODORO K V67.59 OTHER FOLLOW-UP EXAMINATION 09/25/2013 MIGUEL ARVIZU APRN E V67.59 OTHER FOLLOW-UP EXAMINATION 09/25/2013 MIGUEL ARVIZU APRN E V67.59 OTHER FOLLOW-UP EXAMINATION 09/25/2013 MIGUEL ARVIZU APRN E V67.59 OTHER FOLLOW-UP EXAMINATION 09/25/2013 MIRLANDE PATIÑO APRN V67.59 OTHER FOLLOW-UP EXAMINATION 09/25/2013 FANNY RODRIGUES MD V67.59 OTHER FOLLOW-UP EXAMINATION 09/25/2013 MIRLANDE PATIÑO APRN V67.59 OTHER FOLLOW-UP EXAMINATION 09/25/2013 MIGUEL ARVIZU APRN V67.59 OTHER FOLLOW-UP EXAMINATION 09/25/2013 LOPEZ DO, TEODORO K V67.59 OTHER FOLLOW-UP EXAMINATION 09/25/2013 MIRLANDE PATIÑO APRN V67.59 OTHER FOLLOW-UP EXAMINATION 09/25/2013 PATIÑO NEUROSURGERY PHYSICIAN, MIRLANDE Mckeon V67.59 OTHER FOLLOW-UP EXAMINATION 09/25/2013 LOPEZ DO, TEODORO K V67.59 OTHER FOLLOW-UP EXAMINATION 09/25/2013 LOPEZ DO, TEODORO K V67.59 OTHER FOLLOW-UP EXAMINATION 09/25/2013 LOPEZ DO, TEODORO K V67.59 OTHER FOLLOW-UP EXAMINATION 09/25/2013 LOPEZ DO, TEODORO K V67.59 OTHER FOLLOW-UP EXAMINATION 09/25/2013 LOPEZ DO, TEODORO K V67.59 OTHER FOLLOW-UP EXAMINATION 09/25/2013 LOPEZ DO, TEODORO K V67.59 OTHER FOLLOW-UP EXAMINATION 09/25/2013 HELLWIG NEUROSURGERY PHYSICIAN, MIGUEL E V67.59 OTHER FOLLOW-UP EXAMINATION 09/25/2013 LOPEZ DO, TEODORO K V67.59 OTHER FOLLOW-UP EXAMINATION 09/25/2013 HELLWIG NEUROSURGERY PHYSICIAN, MIGUEL E V67.59 OTHER FOLLOW-UP EXAMINATION 09/25/2013 HELWIG NEUROSURGERY PHYSICIAN, MIGUEL E V67.59 OTHER FOLLOW-UP EXAMINATION 09/25/2013 LOPEZ DO, TEODORO K V67.59 OTHER FOLLOW-UP EXAMINATION 09/25/2013 HELLWIG NEUROSURGERY PHYSICIAN, MIGUEL E V67.59 OTHER FOLLOW-UP EXAMINATION 09/25/2013 LOPEZ DO, TEODORO K V67.59 OTHER FOLLOW-UP EXAMINATION 12/20/2013 LOPEZ DO, TEODORO K 892.0 OPEN WOUND OF FOOT EXCEPT TOE(S) ALONE WITHOUT COMPLICATION 12/20/2013 LOPEZ DO, TEODORO K 892.0 OPEN WOUND OF FOOT EXCEPT TOE(S) ALONE WITHOUT COMPLICATION 12/20/2013 HELLWIG NEUROSURGERY PHYSICIAN, MIGUEL E 892.0 OPEN WOUND OF FOOT EXCEPT TOE(S) ALONE WITHOUT COMPLICATION 12/20/2013 LOPEZ DO, TEODORO K 892.0 OPEN WOUND OF FOOT EXCEPT TOE(S) ALONE WITHOUT COMPLICATION 12/20/2013 HELLWIG NEUROSURGERY PHYSICIAN, MIGUEL E 892.0 OPEN WOUND OF FOOT [...] FOOT EXCEPT TOE(S) ALONE WITHOUT COMPLICATION 12/20/2013 [facility] NEUROSURGERY PHYSICIANVIJAYMIGUEL E 892.0 OPEN WOUND OF FOOT EXCEPT TOE(S) ALONE WITHOUT COMPLICATION 12/20/2013 LOPEZ DO, TEODORO K 892.0 OPEN WOUND OF FOOT EXCEPT TOE(S) ALONE WITHOUT COMPLICATION 12/20/2013 LOPEZ DO, TEODORO K 892.0 OPEN WOUND OF FOOT EXCEPT TOE(S) ALONE WITHOUT COMPLICATION 12/20/2013 LOPEZ DO, TEODORO K 892.0 OPEN WOUND OF FOOT EXCEPT TOE(S) ALONE WITHOUT COMPLICATION 12/20/2013 HELPAUL NEUROSURGERY PHYSICIAN, MIGUEL E 892.0 OPEN WOUND OF FOOT [...] FOOT EXCEPT TOE(S) ALONE WITHOUT COMPLICATION 12/20/2013 TEODORO LOPEZ DO 892.0 OPEN WOUND OF FOOT EXCEPT TOE(S) ALONE WITHOUT COMPLICATION 12/20/2013 MIGUEL ARVIZU APRN 892.0 OPEN WOUND OF FOOT EXCEPT TOE(S) ALONE WITHOUT COMPLICATION 12/20/2013 TEODORO LOPEZ DO 892.0 OPEN WOUND OF FOOT EXCEPT TOE(S) ALONE WITHOUT COMPLICATION 12/27/2013 TEODORO LOPEZ DO 250.80 DIABETES WITH [...] 682.2 CELLULITIS AND ABSCESS OF TRUNK 01/17/2014 LATOYA ARVIZU APRNE E 682.2 CELLULITIS AND ABSCESS OF TRUNK 01/17/2014 LOPEZ DO, TEODORO K 682.2 CELLULITIS AND ABSCESS OF TRUNK 01/17/2014 LATOYA ARVIZU APRNE E 682.2 CELLULITIS AND ABSCESS OF TRUNK 01/17/2014 LATOYA ARVIZU APRNE E 682.2 CELLULITIS AND ABSCESS OF TRUNK 01/17/2014 LOPEZ DO, TEODORO K 682.2 CELLULITIS AND ABSCESS OF TRUNK 01/17/2014 VIJAY ARVIZU APRNSIE E 682.2 CELLULITIS AND ABSCESS OF TRUNK [...] LOPEZ DO, TEODORO K 707.15 ULCER-FOOT/TOES 02/16/2014 MAKSIMLYASMANI NEUROSURGERY PHYSICIAN MIGUEL E 110.1 ONYCHOMYCOSIS 02/16/2014 MAKSIMLYASMANI NEUROSURGERY PHYSICIAN MIGUEL E 250.40 DIABETES W/ NEPHROPATHY, DM TYPE 2 02/16/2014 HELLWIG NEUROSURGERY PHYSICIAN MIGUEL E 707.15 ULCER-FOOT/TOES 02/16/2014 LOPEZ DO, [...] LOPEZ DO, TEODORO K 707.15 ULCER-FOOT/TOES 02/16/2014 [facility], MIGUEL E 110.1 ONYCHOMYCOSIS 02/16/2014 [facility], MIGUEL E 250.40 DIABETES W/ NEPHROPATHY, DM TYPE 2 02/16/2014 HEL[facility]IG NEUROSURGERY PHYSICIAN, MIGUEL E 707.15 ULCER-FOOT/TOES 02/16/2014 HELWIG NEUROSURGERY PHYSICIAN, MIGUEL E 110.1 ONYCHOMYCOSIS 02/16/2014 [facility] NEUROSURGERY PHYSICIAN, MIGUEL E 250.40 DIABETES W/ NEPHROPATHY, DM TYPE 2 02/16/2014 [facility], MIGUEL E 707.15 ULCER-FOOT/TOES 02/16/2014 [facility] NEUROSURGERY PHYSICIAN, MIGUEL E 110.1 ONYCHOMYCOSIS 02/16/2014 [facility] NEUROSURGERY PHYSICIAN, MIGUEL E 250.40 DIABETES W/ NEPHROPATHY, DM TYPE 2 02/16/2014 [facility], MIGUEL E 707.15 ULCER-FOOT/TOES 02/16/2014 MIRLANDE PATIÑO [...] DIABETES W/ NEPHROPATHY, DM TYPE 2 02/16/2014 PATIÑO NEUROSURGERY PHYSICIAN, MIRLANDE R 707.15 ULCER-FOOT/TOES 02/16/2014 MAKSIMMIGUEL GRUBER APRN E 110.1 ONYCHOMYCOSIS 02/16/2014 [facility] MIGUEL PECK E 250.40 DIABETES W/ NEPHROPATHY, DM TYPE 2 02/16/2014 [facility] MIGUEL PECK E 707.15 ULCER-FOOT/TOES 02/16/2014 LOPEZ DO, TEODORO K 110.1 ONYCHOMYCOSIS 02/16/2014 LOPEZ DO, TEODORO K 250.40 DIABETES W/ NEPHROPATHY, DM TYPE 2 02/16/2014 JESSICA DO, TEODORO K 707.15 ULCER-FOOT/TOES 02/16/2014 MIRLANDE PATIÑO APRN 110.1 ONYCHOMYCOSIS 02/16/2014 MIRLANDE PATIÑO APRN 250.40 DIABETES W/ NEPHROPATHY, DM TYPE 2 02/16/2014 MIRLANDE PATIÑO APRN 707.15 ULCER-FOOT/TOES 02/16/2014 MIRLANDE PATIÑO APRN 110.1 ONYCHOMYCOSIS 02/16/2014 PATIÑO MIRLANDE PECK 250.40 DIABETES W/ NEPHROPATHY, DM TYPE 2 02/16/2014 PATIÑO MIRLANDE PECK 707.15 ULCER-FOOT/TOES 02/16/2014 JESSICA DO, TEODORO K 110.1 ONYCHOMYCOSIS 02/16/2014 JESSICA DO, TEODORO K 250.40 DIABETES W/ NEPHROPATHY, [...] DO, TEODORO K 707.15 ULCER-FOOT/TOES 02/16/2014 HELLWIG NEUROSURGERY PHYSICIAN, MIGUEL E 110.1 ONYCHOMYCOSIS 02/16/2014 HELLWIG NEUROSURGERY PHYSICIAN, MIGUEL E 250.40 DIABETES W/ NEPHROPATHY, DM TYPE 2 02/16/2014 HELLWIG NEUROSURGERY PHYSICIAN, MIGUEL E 707.15 ULCER-FOOT/TOES 02/16/2014 LOPEZ DO, TEODORO K 110.1 ONYCHOMYCOSIS 02/16/2014 LOPEZ DO, TEODORO K 250.40 DIABETES W/ NEPHROPATHY, DM TYPE 2 02/16/2014 LOPEZ DO, TEODORO K 707.15 ULCER-FOOT/TOES 02/16/2014 HELLWIG NEUROSURGERY PHYSICIAN, MIGUEL E 110.1 ONYCHOMYCOSIS 02/16/2014 HELLWIG NEUROSURGERY PHYSICIAN, MIGUEL E 250.40 DIABETES W/ NEPHROPATHY, DM TYPE 2 02/16/2014 HELLWIG NEUROSURGERY PHYSICIAN, MIGUEL E 707.15 ULCER-FOOT/TOES 02/16/2014 HELLWIG NEUROSURGERY PHYSICIAN, MIGUEL E 110.1 ONYCHOMYCOSIS 02/16/2014 HELLWIG NEUROSURGERY PHYSICIAN, MIGUEL E 250.40 DIABETES W/ NEPHROPATHY, DM TYPE 2 02/16/2014 [facility] NEUROSURGERY PHYSICIAN, MIGUEL E 707.15 ULCER-FOOT/TOES 02/16/2014 LOPEZ DO, TEODORO K 110.1 ONYCHOMYCOSIS 02/16/2014 LOPEZ DO, TEODORO K 250.40 DIABETES W/ NEPHROPATHY, DM TYPE 2 02/16/2014 LOPEZ DO, TEODORO K 707.15 ULCER-FOOT/TOES 02/16/2014 [facility] NEUROSURGERY PHYSICIAN, MIGUEL E 110.1 ONYCHOMYCOSIS 02/16/2014 MIGUEL ARVIZU APRN [...] DO, TEODORO K NODX NO DIAGNOSIS 02/26/2014 LATOYA ARVIZU APRNE E NODX NO DIAGNOSIS 02/26/2014 LOPEZ DO, TEODORO K NODX NO DIAGNOSIS 02/26/2014 LOPEZ DO, TEODORO K NODX NO DIAGNOSIS 02/26/2014 LOPEZ DO, TEODORO K NODX NO DIAGNOSIS 02/26/2014 LATOYA ARVIZU APRNE E NODX NO DIAGNOSIS 02/26/2014 MIGEUL ARVIZU APRN E NODX NO DIAGNOSIS 02/26/2014 MIGUEL ARVIZU APRN E NODX NO DIAGNOSIS 02/26/2014 MIRLANDE PATIÑO APRN NODX NO DIAGNOSIS 02/26/2014 FANNY RODRIGUES MD NODX NO DIAGNOSIS 02/26/2014 MIRLANDE PATIÑO APRN NODX NO DIAGNOSIS 02/26/2014 MIGUEL ARVIZU APRN E NODX NO DIAGNOSIS 02/26/2014 LOPEZ DO, TEODORO K NODX NO DIAGNOSIS 02/26/2014 PATIÑOMIRLANDE GUPTA APRN NODX NO DIAGNOSIS 02/26/2014 PATIÑOMIRLANDE [place] APRN NODX NO DIAGNOSIS 02/26/2014 LOPEZ DO, TEODORO K NODX NO DIAGNOSIS 02/26/2014 LOPEZ DO, TEODORO K NODX NO DIAGNOSIS 02/26/2014 LOPEZ DO, TEODORO K NODX NO DIAGNOSIS 02/26/2014 LOPEZ DO, TEODORO K NODX NO DIAGNOSIS 02/26/2014 LOPEZ DO, TEODORO K NODX NO DIAGNOSIS 02/26/2014 LOPEZ DO, TEODORO K NODX NO DIAGNOSIS 02/26/2014 [facility] NEUROSURGERY PHYSICIAN, MIGUEL E NODX NO DIAGNOSIS 02/26/2014 LOPEZ DO, TEODORO K NODX NO DIAGNOSIS 02/26/2014 [facility] NEUROSURGERY PHYSICIAN, MIGUEL E NODX NO DIAGNOSIS 02/26/2014 [facility] VIJAY PECKSIE E NODX NO DIAGNOSIS 02/26/2014 LOPEZ DO, TEODORO K NODX NO DIAGNOSIS 02/26/2014 [facility] VIJAY PECKSIE E NODX NO DIAGNOSIS 02/26/2014 LOPEZ DO, [...] DO, TEODORO K 466.0 ACUTE BRONCHITIS 08/13/2014 [facility] NEUROSURGERY PHYSICIAN MIGUEL E 466.0 ACUTE BRONCHITIS 08/13/2014 LOPEZ DO, TEODORO K 466.0 ACUTE BRONCHITIS 08/13/2014 [facility] NEUROSURGERY PHYSICIAN MIGUEL E 466.0 ACUTE BRONCHITIS 08/13/2014 [facility] NEUROSURGERY PHYSICIAN, MIGUEL E 466.0 ACUTE BRONCHITIS 08/13/2014 LOPEZ DO, TEODORO K 466.0 ACUTE BRONCHITIS 08/13/2014 [facility] NEUROSURGERY PHYSICIAN, MIGUEL E 466.0 ACUTE BRONCHITIS 08/13/2014 LOPEZ DO, TEODORO K 466.0 ACUTE BRONCHITIS 10/25/2014 TEODORO LOPEZ DO K 443.9 PERIPHERAL VASCULAR DISEASE UNSPECIFIED 10/25/2014 [facility] PECK MIGUEL E 443.9 PERIPHERAL VASCULAR DISEASE UNSPECIFIED 10/25/2014 MAKSIMMarcYASMANI PECK MIGUEL E 443.9 PERIPHERAL VASCULAR DISEASE UNSPECIFIED 10/25/2014 VIJAY LOPEZ DOA K 443.9 PERIPHERAL VASCULAR DISEASE UNSPECIFIED 10/25/2014 [facility] PECK MIGUEL E 443.9 PERIPHERAL VASCULAR DISEASE UNSPECIFIED 10/25/2014 JESSICA HAMM, TEODORO K 443.9 PERIPHERAL VASCULAR DISEASE UNSPECIFIED 12/13/2014 [facility] NEUROSURGERY PHYSICIAN, MIGUEL E NODX NO DIAGNOSIS 12/13/2014 TEODORO LOPEZ DO K NODX NO DIAGNOSIS 06/14/2015 Ot 681.10 06/14/2015 Ot 785.4 06/14/2015 Ot V72.63 06/14/2015 Ot V74.8 06/14/2015 Ot 250.00 06/14/2015 Ot 707.15 06/14/2015 EM MOSER, LUDMILA A Ot 185 06/14/2015 LILIA MOSER, [place] Aranda Ot 185 06/14/2015 LILIA MOSER, [place] E [...] LALO DPM, MISAEL Q Ot Z01.818 06/28/2015 ALLO DPM, MISAEL Q Ot M86.9 OSTEOMYELITIS, UNSPECIFIED 06/28/2015 LALO DPM, MISAEL Q Ot Z79.899 OTHER WATCH CRYSTAL CUTTER (CURRENT) DRUG THERAPY 07/04/2015 LALO DPM, MISAEL [...] P Ot Z87.891 09/15/2017 ALEXEI MOSER, MIRLANDE P Ot H93.19 TINNITUS, UNSPECIFIED EAR 09/15/2017 ALEXEI [...] PROSTATE 09/17/2017 LILIA MOSER, [place] E 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 09/17/2017 LILIA MOSER, [place] E Ot 715.31 LOC OSTEOARTH NOS-SHLDER 09/17/2017 LILIA MOSER, [place] E Ot 726.10 BURSAE TENDONS DIS SHLDER NOS 09/17/2017 LILIA MOSER, [place] E Ot 727.61 ROTATOR CUFF RUPTURE 09/17/2017 LILIA [...] Z01.818 ENCOUNTER FOR OTHER PREPROCEDURAL EXAMIN 09/17/2017 ALEXEI MOSER, MIRLANDE Leon Ot H93.19 TINNITUS, UNSPECIFIED EAR 09/17/2017 MIRLANDE [...] Z01.818 ENCOUNTER FOR OTHER PREPROCEDURAL EXAMIN 09/22/2017 NARAAUSTIN PATRICIA HAMM Ot K21.9 GASTRO-ESOPHAGEAL REFLUX DISEASE WITHOUT 09/22/2017 PATRICIA CERVANTES DO Ot K52.9 NONINFECTIVE GASTROENTERITIS AND COLITIS 09/22/2017 HELEN HAMMPATRICIA Ot Z01.818 ENCOUNTER FOR OTHER PREPROCEDURAL EXAMIN [...] DO Ot I25.10 ATHSCL HEART DISEASE OF [place] CORONARY 09/22/2017 PATRICIA CERVANTES DO Ot J44.9 CHRONIC OBSTRUCTIVE PULMONARY DISEASE, U 09/22/2017 PATRICIA CERVANTES DO Ot K21.9 GASTRO-ESOPHAGEAL REFLUX DISEASE WITHOUT 09/22/2017 PATRICIA CERVANTES DO Ot K29.70 GASTRITIS, UNSPECIFIED, WITHOUT BLEEDING 09/22/2017 PATRICIA CEVRANTES DO Ot K44.9 DIAPHRAGMATIC HERNIA WITHOUT OBSTRUCTION 09/22/2017 PATRICIA CERVANTES DO Ot K64.8 OTHER HEMORRHOIDS 09/22/2017 PATRICIA CERVANTES DO Ot Z12.11 ENCOUNTER FOR SCREENING FOR MALIGNANT NE 09/22/2017 PATRICIA CERVANTES DO Ot Z79.4 WATCH CRYSTAL CUTTER (CURRENT) USE OF INSULIN 09/22/2017 PATRICIA CERVANTES DO Ot Z79.82 WATCH CRYSTAL CUTTER (CURRENT) USE OF ASPIRIN 09/22/2017 PATRICIA CERVANTES DO Ot Z79.899 OTHER CUSTODIAL (CURRENT) DRUG THERAPY 09/22/2017 PATRICIA CERVANTES DO Ot Z85.46 PERSONAL HISTORY OF MALIGNANT NEOPLASM O 09/22/2017 PATRICIA CERVANTES DO Ot Z86.73 PRSNL HX OF TIA (TIA), AND CEREB INFRC W 09/22/2017 PATRICIA CERVANTES DO Ot Z95.5 PRESENCE OF CORONARY ANGIOPLASTY IMPLANT 09/24/2017 PATRICIA CERVANTES DO Ot D12.4 BENIGN NEOPLASM OF DESCENDING COLON 09/24/2017 PATRICIA CERVANTES DO Ot E11.40 TYPE 2 DIABETES MELLITUS WITH DIABETIC N 09/24/2017 PATRICIA CERVANTES DO Ot E78.5 HYPERLIPIDEMIA, UNSPECIFIED 09/24/2017 PATRICIA CERVANTES DO Ot F17.210 NICOTINE DEPENDENCE, CIGARETTES, UNCOMPL 09/24/2017 PATRICIA CERVANTES DO Ot I10 ESSENTIAL (PRIMARY) HYPERTENSION 09/24/2017 PATRICIA CERVANTES DO Ot I25.10 ATHSCL HEART DISEASE OF [place] CORONARY 09/24/2017 PATRICIA CERVANTES DO Ot J44.9 CHRONIC OBSTRUCTIVE PULMONARY DISEASE, U 09/24/2017 PATRICIA CERVANTES DO Ot K21.9 GASTRO-ESOPHAGEAL REFLUX DISEASE WITHOUT 09/24/2017 PATRICIA CERVANTES DO Ot K29.70 GASTRITIS, UNSPECIFIED, WITHOUT BLEEDING 09/24/2017 PATRICIA CERVANTES DO Ot K44.9 DIAPHRAGMATIC HERNIA WITHOUT OBSTRUCTION 09/24/2017 PATRICIA CERVANTES DO Ot K64.8 OTHER HEMORRHOIDS 09/24/2017 PATRICIA CERVANTES DO Ot Z12.11 ENCOUNTER FOR SCREENING FOR MALIGNANT NE 09/24/2017 PATRICIA CERVANTES DO Ot Z79.4 CUSTODIAL (CURRENT) USE OF INSULIN 09/24/2017 PATRICIA CERVANTES DO Ot Z79.82 WATCH CRYSTAL CUTTER (CURRENT) USE OF ASPIRIN 09/24/2017 PATRICIA CERVANTES DO Ot Z79.899 OTHER CUSTODIAL (CURRENT) DRUG THERAPY 09/24/2017 PATRICIA CERVANTES DO Ot Z85.46 PERSONAL HISTORY OF MALIGNANT NEOPLASM O 09/24/2017 PATRICIA CERVANTES DO Ot Z86.73 PRSNL HX OF TIA (TIA), AND CEREB INFRC W 09/24/2017 PATRICIA CERVANTES DO Ot Z95.5 PRESENCE OF CORONARY ANGIOPLASTY IMPLANT 09/30/2017 PATRICIA CERVANTES DO Ot D12.4 BENIGN NEOPLASM OF DESCENDING COLON 09/30/2017 PATRICIA CERVANTES DO Ot E11.40 TYPE 2 DIABETES MELLITUS WITH DIABETIC N 09/30/2017 PATRICIA CERVANTES DO Ot E78.5 HYPERLIPIDEMIA, UNSPECIFIED 09/30/2017 PATRICIA CERVANTES DO B Ot F17.210 NICOTINE DEPENDENCE, CIGARETTES, UNCOMPL 09/30/2017 NARAAUSTIN PATRICIA HAMM Ot I10 ESSENTIAL (PRIMARY) HYPERTENSION 09/30/2017 NARAAUSTIN PATRICIA HAMM Ot I25.10 ATHSCL HEART DISEASE OF [place] CORONARY 09/30/2017 NARAAUSTIN PATRICIA HAMM Ot J44.9 CHRONIC OBSTRUCTIVE PULMONARY DISEASE, U 09/30/2017 PATRICIA CERVANTES DO Ot K21.9 GASTRO-ESOPHAGEAL REFLUX DISEASE WITHOUT 09/30/2017 NARAAUSTIN PATRICIA HAMM Ot K29.70 GASTRITIS, UNSPECIFIED, WITHOUT BLEEDING 09/30/2017 NARAAUSTIN PATRICIA HAMM Ot K44.9 DIAPHRAGMATIC HERNIA WITHOUT OBSTRUCTION 09/30/2017 NARAAUSTIN PATRICIA HAMM Ot K64.8 OTHER HEMORRHOIDS 09/30/2017 NARAAUSTIN PATRICIA HAMM Ot Z12.11 ENCOUNTER FOR SCREENING FOR MALIGNANT NE 09/30/2017 PATRICIA CERVANTES DO Ot Z79.4 WATCH CRYSTAL CUTTER (CURRENT) USE OF INSULIN 09/30/2017 PATRICIA CERVANTES DO Ot Z79.82 WATCH CRYSTAL CUTTER (CURRENT) USE OF ASPIRIN 09/30/2017 PATRICIA CERVANTES DO Ot Z79.899 OTHER CUSTODIAL (CURRENT) DRUG THERAPY 09/30/2017 PATRICIA CERVANTES DO Ot Z85.46 PERSONAL HISTORY OF MALIGNANT NEOPLASM O 09/30/2017 NARAAUSTIN PATRICIA HAMM Ot Z86.73 PRSNL HX OF TIA (TIA), AND CEREB INFRC W 09/30/2017 PATRICIA CERVANTES DO Ot Z95.5 PRESENCE OF CORONARY ANGIOPLASTY IMPLANT 05/05/2018 EM MOSER, LUDMILA A 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 05/05/2018 LOUIS RODRIGUES MD 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 05/05/2018 LOUIS RODRIGUES MD Ot 715.31 LOC OSTEOARTH NOS-SHLDER 05/05/2018 LOUIS RODRIGUES MD Ot 726.10 BURSAE TENDONS DIS SHLDER NOS 05/05/2018 LOUIS RODRIGUES MD Ot 727.61 ROTATOR CUFF RUPTURE 05/05/2018 LOUIS RODRIGUES MD Ot 733.90 BONE CARTILAGE DIS NOS 05/05/2018 [...] Leon Ot H93.19 TINNITUS, UNSPECIFIED EAR 05/05/2018 MIRLANDE LINDA MD Ot 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 05/05/2018 MIRLANDE LINDA MD Ot R49.0 DYSPHONIA 05/05/2018 MIRLANDE LINDA MD Ot Z87.891 PERSONAL HISTORY [...] Leon Ot H93.19 TINNITUS, UNSPECIFIED EAR 06/16/2018 MIRLANDE LINDA MD Ot 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 06/16/2018 MIRLANDE LINDA MD Ot R49.0 DYSPHONIA 06/16/2018 MIRLANDE LINDA MD Ot Z87.891 PERSONAL HISTORY OF NICOTINE DEPENDENCE 06/16/2018 PATRICIA CERVANTES DO B Ot K21.9 GASTRO-ESOPHAGEAL REFLUX DISEASE WITHOUT 06/16/2018 PATRICIA CERVANTES DO B Ot K52.9 NONINFECTIVE GASTROENTERITIS AND COLITIS 06/16/2018 PATRICIA CERVANTES DO B Ot Z01.818 ENCOUNTER FOR OTHER PREPROCEDURAL EXAMIN 06/16/2018 LALO DPM, MISAEL Q Ot M89.372 HYPERTROPHY OF BONE, LEFT ANKLE AND FOOT 06/16/2018 LALO DPM, MISAEL Q Ot Z01.810 ENCOUNTER FOR PREPROCEDURAL CARDIOVASCUL 06/16/2018 LALO DPM, MISAEL Q Ot Z11.2 ENCOUNTER FOR SCREENING FOR OTHER BACTER 06/20/2018 EM MOSER, LUDMILA A 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 06/20/2018 LOUIS RODRIGUES MD 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 06/20/2018 LILIA MOSER, LOUIS Aranda Ot 715.31 LOC OSTEOARTH NOS-SHLDER 06/20/2018 LILIA MOSER, [place] Aranda Ot 726.10 BURSAE TENDONS DIS SHLDER NOS 06/20/2018 LILIA MOSER, [place] Aranda Ot 727.61 ROTATOR CUFF RUPTURE 06/20/2018 LOUIS RODRIGUES MD Ot 733.90 BONE CARTILAGE DIS NOS 06/20/2018 [...] NONINFECTIVE GASTROENTERITIS AND COLITIS 06/20/2018 PATRICIA CERVANTES DO Ot Z01.818 ENCOUNTER FOR OTHER PREPROCEDURAL EXAMIN 06/20/2018 LALO DPM, MISAEL Q Ot E11.40 TYPE 2 DIABETES MELLITUS WITH DIABETIC N 06/20/2018 LALO DPM, MISAEL Q Ot E11.621 TYPE 2 DIABETES MELLITUS WITH FOOT ULCER 06/20/2018 LALO DPM, MISAEL Q Ot F32.0 MAJOR DEPRESSIVE DISORDER, SINGLE EPISOD 06/20/2018 LALO DPM, MISAEL Q Ot F41.9 ANXIETY DISORDER, UNSPECIFIED 06/20/2018 LALO DPM, MISAEL Q Ot I10 ESSENTIAL (PRIMARY) HYPERTENSION 06/20/2018 LALO DPM, MISAEL Q Ot I25.10 ATHSCL HEART DISEASE OF [place] CORONARY 06/20/2018 LALO DPM, MISAEL Q Ot L97.529 NON-PRESSURE CHRONIC ULCER OTH PRT LEFT 06/20/2018 LALO DPM, MISAEL Q Ot M89.372 HYPERTROPHY OF BONE, LEFT ANKLE AND FOOT 06/20/2018 LALO DPM, MISAEL Q Ot Z79.4 CUSTODIAL (CURRENT) USE OF INSULIN 06/20/2018 LALO DPM, MISAEL Q Ot Z79.899 OTHER CUSTODIAL (CURRENT) DRUG THERAPY 06/20/2018 LALO DPM, MISAEL Q Ot Z85.46 PERSONAL HISTORY OF MALIGNANT NEOPLASM O 06/20/2018 LALO DPM, MISAEL Q Ot Z86.73 PRSNL HX OF TIA (TIA), AND CEREB INFRC W 06/20/2018 LALO DPM, MISAEL Q Ot Z87.891 PERSONAL HISTORY OF NICOTINE DEPENDENCE 06/20/2018 LALO DPM, MISAEL Q Ot Z95.5 PRESENCE OF CORONARY ANGIOPLASTY IMPLANT 06/22/2018 LALO DPM, MISAEL Q Ot E11.40 TYPE 2 DIABETES MELLITUS WITH DIABETIC N 06/22/2018 LALO DPM, MISAEL Q Ot E11.621 TYPE 2 DIABETES MELLITUS WITH FOOT ULCER 06/22/2018 LALO DPM, MISAEL Q Ot F32.0 MAJOR DEPRESSIVE DISORDER, SINGLE EPISOD 06/22/2018 LALO DPM, MISAEL Q Ot F41.9 ANXIETY DISORDER, UNSPECIFIED 06/22/2018 LALO DPM, MISAEL Q Ot I10 ESSENTIAL (PRIMARY) HYPERTENSION 06/22/2018 LALO DPM, MISAEL Q Ot I25.10 ATHSCL HEART DISEASE OF [place] CORONARY 06/22/2018 LALO DPM, MISAEL Q Ot L97.529 NON-PRESSURE CHRONIC ULCER OTH PRT LEFT 06/22/2018 LALO DPM, MISAEL Q Ot M89.372 HYPERTROPHY OF BONE, LEFT ANKLE AND FOOT 06/22/2018 LALO DPM, MISAEL Q Ot Z79.4 CUSTODIAL (CURRENT) USE OF INSULIN 06/22/2018 LALO DPM, MISAEL Q Ot Z79.899 OTHER CUSTODIAL (CURRENT) DRUG THERAPY 06/22/2018 LALO DPM, MISAEL Q Ot Z85.46 PERSONAL HISTORY OF MALIGNANT NEOPLASM O 06/22/2018 LALO DPM, MISAEL Q Ot Z86.73 PRSNL HX OF TIA (TIA), AND CEREB INFRC W 06/22/2018 LALO DPM, MISAEL Q Ot Z87.891 PERSONAL HISTORY OF NICOTINE DEPENDENCE 06/22/2018 LALO DPM, MISAEL Q Ot Z95.5 PRESENCE OF CORONARY ANGIOPLASTY IMPLANT 06/24/2018 LALO DPM, MISAEL Q Ot M89.372 HYPERTROPHY OF BONE, LEFT ANKLE AND FOOT 06/24/2018 LALO DPM, MISAEL Q Ot Z01.810 ENCOUNTER FOR PREPROCEDURAL CARDIOVASCUL 06/24/2018 LALO DPM, MISAEL Q Ot Z11.2 ENCOUNTER FOR SCREENING FOR OTHER BACTER 11/01/2018 LILIA MOSER, LOUIS E 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 11/01/2018 LILIA MOSER, LOU[place] Aranda Ot 715.31 LOC OSTEOARTH NOS-SHLDER 11/01/2018 LOUIS RODRIGUES MD Ot 726.10 BURSAE TENDONS DIS SHLDER NOS 11/01/2018 LILIA MOSER, LOUIS Aranda Ot 727.61 ROTATOR CUFF RUPTURE 11/01/2018 LILIA MOSER, L[place] Aranda Ot 733.90 BONE CARTILAGE DIS NOS 11/01/2018 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 11/01/2018 LALO DPM, MISAEL Q Ot 707.10 ULCER OF LOWER LIMB NOS 11/01/2018 LALO DPM, MISAEL Q Ot 785.4 GANGRENE 11/01/2018 LALO DPM, MISAEL Q Ot V72.84 EXAM PRE-OPERATIVE NOS 11/01/2018 LALO DPM, MISAEL Q Ot V74.8 SCREEN-BACTERIAL DIS NEC 11/01/2018 LALO DPM, MISAEL Q Ot G57.51 TARSAL TUNNEL SYNDROME, RIGHT LOWER LIMB 11/01/2018 LALO DPM, MISAEL Q Ot M76.821 POSTERIOR TIBIAL TENDINITIS, RIGHT LEG 11/01/2018 LALO DPM, MISAEL Q Ot M86.9 OSTEOMYELITIS, UNSPECIFIED 11/01/2018 LALO DPM, MISAEL Q Ot Z01.818 ENCOUNTER FOR OTHER PREPROCEDURAL EXAMIN 11/01/2018 ALEXEI MOSER, MIRLANED Leon Ot H93.19 TINNITUS, UNSPECIFIED EAR 11/01/2018 MIRLANDE LINDA MD Ot 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 11/01/2018 MIRLANDE LINDA MD Ot R49.0 DYSPHONIA 11/01/2018 MIRLANDE LINDA MD Ot Z87.891 PERSONAL HISTORY OF NICOTINE DEPENDENCE 11/01/2018 PATRICIA CERVANTES DO Ot K21.9 GASTRO-ESOPHAGEAL REFLUX DISEASE WITHOUT 11/01/2018 PATRICIA CERVANTES DO Ot K52.9 NONINFECTIVE GASTROENTERITIS AND COLITIS 11/01/2018 PATRICIA CERVANTES DO Ot Z01.818 ENCOUNTER FOR OTHER PREPROCEDURAL EXAMIN 11/01/2018 LILIA MOSER, [place] E 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 11/01/2018 LILIA MOSER, [place] E Ot 715.31 LOC OSTEOARTH NOS-SHLDER 11/01/2018 LOUIS RODRIGUES MD Ot 726.10 BURSAE TENDONS DIS SHLDER NOS 11/01/2018 LILIA MOSER, L[place] E Ot 727.61 ROTATOR CUFF RUPTURE 11/01/2018 LILIA MOSER, L[place] E Ot 733.90 BONE CARTILAGE DIS NOS 11/01/2018 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 11/01/2018 LALO DPM, MISAEL Q Ot 707.10 ULCER OF LOWER LIMB NOS 11/01/2018 LALO DPM, MISAEL Q Ot 785.4 GANGRENE 11/01/2018 LALO DPM, MISAEL Q Ot V72.84 EXAM PRE-OPERATIVE NOS 11/01/2018 LALO DPM, MISAEL Q Ot V74.8 SCREEN-BACTERIAL DIS NEC 11/01/2018 LALO DPM, MISAEL Q Ot G57.51 TARSAL TUNNEL SYNDROME, RIGHT LOWER LIMB 11/01/2018 LALO DPM, MISAEL Q Ot M76.821 POSTERIOR TIBIAL TENDINITIS, RIGHT LEG 11/01/2018 LALO DPM, MISAEL Q Ot M86.9 OSTEOMYELITIS, UNSPECIFIED 11/01/2018 LALO DPM, MISAEL Q Ot Z01.818 ENCOUNTER FOR OTHER PREPROCEDURAL EXAMIN 11/01/2018 MIRLANDE LINDA MD Ot H93.19 TINNITUS, UNSPECIFIED EAR 11/01/2018 MIRLANDE LINDA MD Ot 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 11/01/2018 MIRLANDE LINDA MD Ot R49.0 DYSPHONIA 11/01/2018 MIRLANDE LINDA MD Ot Z87.891 PERSONAL HISTORY OF NICOTINE DEPENDENCE 11/01/2018 PATRICIA CERVANTES DO Ot K21.9 GASTRO-ESOPHAGEAL REFLUX DISEASE WITHOUT 11/01/2018 PATRICIA CERVANTES DO Ot K52.9 NONINFECTIVE GASTROENTERITIS AND COLITIS 11/01/2018 PATRICIA CERVANTES DO Ot Z01.818 ENCOUNTER FOR OTHER PREPROCEDURAL EXAMIN 11/03/2018 GLO BOUDREAUX MD Ot B95.62 METHICILLIN RESIS STAPH INFCT CAUSING DI 11/03/2018 GLO BOUDREAUX MD Ot D63.8 ANEMIA IN OTHER CHRONIC DISEASES CLASSIF 11/03/2018 GLO BOUDREAUX MD Ot E11.42 TYPE 2 DIABETES MELLITUS WITH DIABETIC P 11/03/2018 GLO BOUDREAUX MD, Ot E11.621 TYPE 2 DIABETES MELLITUS WITH FOOT ULCER 11/03/2018 GLO BOUDREAUX MD Ot E78.00 PURE HYPERCHOLESTEROLEMIA, UNSPECIFIED 11/03/2018 GLO BOUDREAUX MD Ot F32.9 MAJOR DEPRESSIVE DISORDER, SINGLE EPISOD 11/03/2018 GLO BOUDREAUX MD Ot H93.19 TINNITUS, UNSPECIFIED EAR 11/03/2018 GLO BOUDREAUX MD Ot I12.9 HYPERTENSIVE CHRONIC KIDNEY DISEASE W ST 11/03/2018 GLO BOUDREAUX MD Ot I25.10 ATHSCL HEART DISEASE OF [place] CORONARY 11/03/2018 GLO BOUDREAUX MD Ot I25.2 OLD MYOCARDIAL INFARCTION 11/03/2018 GLO BOUDREAUX MD Ot 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 11/03/2018 GLO BOUDREAUX MD, Ot K21.9 GASTRO-ESOPHAGEAL REFLUX DISEASE WITHOUT 11/03/2018 GLO BOUDREAUX MD Ot L03.116 CELLULITIS OF LEFT LOWER LIMB 11/03/2018 GLO BOUDREAUX MD Ot L30.9 DERMATITIS, UNSPECIFIED 11/03/2018 GLO BOUDREAUX MD Ot L40.9 PSORIASIS, UNSPECIFIED 11/03/2018 GLO BOUDREAUX MD Ot L97.529 NON-PRESSURE CHRONIC ULCER OTH PRT LEFT 11/03/2018 GLO BOUDREAUX MD Ot M19.91 PRIMARY OSTEOARTHRITIS, UNSPECIFIED SITE 11/03/2018 GLO BOUDREAUX MD Ot M54.9 DORSALGIA, UNSPECIFIED 11/03/2018 GLO BOUDREAUX MD Ot N18.3 CHRONIC KIDNEY DISEASE, STAGE 3 (MODERAT 11/03/2018 GLO BOUDREAUX MD Ot T87.44 INFECTION OF AMPUTATION STUMP, LEFT LOWE 11/03/2018 GLO BOUDREAUX MD Ot Z79.4 CUSTODIAL (CURRENT) USE OF INSULIN 11/03/2018 GLO BOUDREAUX MD, Ot Z85.46 PERSONAL HISTORY OF MALIGNANT NEOPLASM O 11/03/2018 GLO BOUDREAUX MD, Ot Z86.73 PRSNL HX OF TIA (TIA), AND CEREB INFRC W 11/03/2018 GLO BOUDREAUX MD, Ot Z89.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 11/03/2018 GLO BOUDREAUX MD, Ot Z89.421 ACQUIRED ABSENCE OF OTHER RIGHT TOE(S) 11/03/2018 GLO BOUDREAUX MD, Ot Z89.422 ACQUIRED ABSENCE OF OTHER LEFT TOE(S) 11/03/2018 GLO BOUDREAUX MD Ot Z92.21 PERSONAL HISTORY OF ANTINEOPLASTIC CHEMO 03/31/2019 MISAEL MAY DPM Ot Z01.818 ENCOUNTER FOR OTHER PREPROCEDURAL EXAMIN Procedures Code Description [place] [address] A1C (IN-HOUSE) 09/27/2012 83893 H PYLORI (IN-HOUSE) 10/05/2012 83932 A1C (IN-HOUSE) 01/03/2013 28597 ROUTINE VENIPUNCTURE 01/04/2013 55349 CMP 01/04/2013 31339 LIPID PANEL 01/04/2013 23421 TESTOSTERONE PANEL (FREE, TOTAL, and SHBG) 01/04/2013 47378 CBC 01/04/2013 88824 A1C (IN-HOUSE) 07/20/2013 50805 ROUTINE VENIPUNCTURE 07/31/2013 56311 LIPID PANEL 07/31/2013 23667 A1C (IN-HOUSE) 12/20/2013 PODIATRY MISAEL MAY 12/20/2013 94774 CULTURE WOUND (AEROBIC) 01/17/2014 88175 CULTURE WOUND (AEROBIC) 02/02/2014 20601 DEBRIDE NAIL 1-5 02/16/2014 57592 XRAY FOOT RIGHT COMP MIN 3 VIEWS 02/16/2014 24579 DEBRIDE SKIN TISSUE 02/23/2014 36922 DEBRIDE SKIN TISSUE 02/23/2014 35797 NO CHARGE 02/26/2014 74293 NO CHARGE 02/27/2014 77014 NO CHARGE 02/28/2014 12771 NO CHARGE 03/01/2014 08943 NO CHARGE 03/07/2014 85270 NO CHARGE 03/09/2014 85656 NO CHARGE 03/13/2014 09234 NO CHARGE 03/14/2014 06024 NO CHARGE 03/16/2014 53230 NO CHARGE 03/20/2014 77311 NO CHARGE 03/22/2014 17391 ROUTINE VENIPUNCTURE 03/26/2014 26433 A1C (IN-HOUSE) 03/26/2014 44717 CMP 03/26/2014 47271 LIPID PANEL 03/26/2014 38600 TSH 03/26/2014 88857 CBC 03/26/2014 25887 NO CHARGE 03/27/2014 87023 NO CHARGE 04/12/2014 24905 NO CHARGE 04/13/2014 08129 NO CHARGE 04/16/2014 21640 NO CHARGE 04/17/2014 26106 NO CHARGE 04/19/2014 48013 NO CHARGE 04/23/2014 46251 NO CHARGE 04/25/2014 81441 NO CHARGE 04/27/2014 83207 NO CHARGE 05/02/2014 50858 NO CHARGE 05/02/2014 25729 NO CHARGE 2014 43999 NO CHARGE 05/08/2014 39514 NO CHARGE 05/08/2014 16441 NO CHARGE 05/11/2014 80171 NO CHARGE 05/11/2014 38048 NO CHARGE 05/30/2014 75821 NO CHARGE 06/05/2014 29336 NO CHARGE 06/05/2014 63565 NO CHARGE 06/08/2014 44890 A1C (IN-HOUSE) 08/13/2014 98459 GLUCOSE FINGER STICK 12/10/2014 47967 GLUCOSE FINGER STICK 12/12/2014 74268 NO CHARGE 12/13/2014 41379 NO CHARGE 12/14/2014 Results Test Result Range CBC - 06/25/17 13:01 WHITE BLOOD CELL COUNT 8.7 Thousand/uL 3.8-10.8 RED BLOOD CELL COUNT 4.28 Million/uL 4.20-5.80 HEMOGLOBIN 11.9 g/dL 13.2-17.1 HEMATOCRIT 36.1 % 38.5-50.0 MCV 84.3 fL 80.0-100.0 MCH 27.8 pg 27.0-33.0 MCHC 33.0 g/dL 32.0-36.0 RDW 15.1 % 11.0-15.0 PLATELET COUNT 246 Thousand/uL 140-400 MPV 10.2 fL 7.5-12.5 ABSOLUTE NEUTROPHILS 6368 cells/uL 7251-5240 ABSOLUTE LYMPHOCYTES 1523 cells/uL 850-3900 ABSOLUTE MONOCYTES [...] 10.5 fL 7.5-12.5 ABSOLUTE NEUTROPHILS 5599 cells/uL 7308-9668 ABSOLUTE LYMPHOCYTES 2098 cells/uL 850-3900 ABSOLUTE MONOCYTES 688 cells/uL 200-950 ABSOLUTE EOSINOPHILS 172 cells/uL 15-500 ABSOLUTE BASOPHILS 43 cells/uL 0-200 NEUTROPHILS 65.1 % NRG LYMPHOCYTES 24.4 % NRG MONOCYTES 8.0 % NRG EOSINOPHILS 2.0 % NRG BASOPHILS 0.5 % NRG Capillary blood glucose measurement by glucometer (mass/volume) - 09/22/17 10:46 Capillary blood glucose measurement by glucometer (mass/volume) 92 mg/dL 70-110 CMP - 09/27/17 13:29 GLUCOSE 75 mg/dL 65-99 UREA NITROGEN (BUN) 19 mg/dL 7-25 CREATININE 1.22 mg/dL 0.70-1.18 eGFR NON-AFR. [place] 60 mL/min/1.73m2 > OR=60 eGFR 69 mL/min/1.73m2 [...] 10.1 fL 7.5-12.5 ABSOLUTE NEUTROPHILS 5083 cells/uL 2238-7868 ABSOLUTE LYMPHOCYTES 2485 cells/uL 850-3900 ABSOLUTE MONOCYTES 740 cells/uL 200-950 ABSOLUTE EOSINOPHILS 224 cells/uL 15-500 ABSOLUTE BASOPHILS 69 cells/uL 0-200 NEUTROPHILS 59.1 % NRG LYMPHOCYTES 28.9 % NRG MONOCYTES 8.6 % NRG EOSINOPHILS 2.6 % NRG BASOPHILS 0.8 % NRG THYROID ANALYZER - 01/11/18 10:42 TSH 2.57 mIU/L 0.40-4.50 DIFFERENTIAL, MANUAL - 01/11/18 10:42 ABSOLUTE NEUTROPHILS 4362 cells/uL 0454-2979 ABSOLUTE MONOCYTES 707 cells/uL 200-950 ABSOLUTE EOSINOPHILS 213 cells/uL 15-500 ABSOLUTE BASOPHILS 68 cells/uL 0-200 NEUTROPHILS 57.4 % NRG LYMPHOCYTES 29.6 % NRG MONOCYTES 9.3 % NRG EOSINOPHILS 2.8 % NRG BASOPHILS 0.9 % NRG ABSOLUTE LYMPHOCYTES 2250 cells/uL 850-3900 CBC MORPHOLOGY NORMAL Methicillin resistant Staphylococcus aureus (MRSA) screening culture - 06/16/18 14:50 Methicillin resistant Staphylococcus aureus (MRSA) screening culture NEG NRG Capillary blood glucose measurement by glucometer (mass/volume) - 06/20/18 08:51 Capillary blood glucose measurement by glucometer (mass/volume) [...] plasma calcium measurement (mass/volume) 9.3 mg/dL 8.5-10.1 - PANEL (PROFILE 1) - 10/25/18 11:00 Prescribed Drug 1 Tramadol NRG Creatinine 46.8 mg/dL > or=20.0 pH 7.75 4.5 - 9.0 Oxidant NEGATIVE mcg/mL <200 Amphetamines NEGATIVE ng/mL <500 medMATCH Amphetamines CONSISTENT NRG Benzodiazepines NEGATIVE ng/mL <100 medMATCH Benzodiazepines CONSISTENT NRG Marijuana Metabolite NEGATIVE ng/mL <20 medMATCH Marijuana Metab CONSISTENT NRG Cocaine Metabolite NEGATIVE ng/mL <150 medMATCH Cocaine Metab CONSISTENT NRG Opiates NEGATIVE ng/mL <100 medMATCH Opiates CONSISTENT NRG Oxycodone NEGATIVE ng/mL <100 medMATCH Oxycodone CONSISTENT NRG COMMENT NRG Barbiturates NEGATIVE ng/mL <300 medMATCH Barbiturates CONSISTENT NRG Methadone Metabolite NEGATIVE ng/mL <100 medMATCH Methadone Metab CONSISTENT NRG Phencyclidine NEGATIVE ng/mL <25 medMATCH Phencyclidine CONSISTENT NRG Complete blood count (CBC) with automated white blood cell (WBC) differential - 11/01/18 16:27 Blood leukocytes automated count (number/volume) 7.6 10*3/uL 4.3-11.0 Blood erythrocytes automated count (number/volume) 3.57 10*6/uL 4.35-5.85 Venous blood hemoglobin measurement (mass/volume) 10.0 g/dL 13.3-17.7 Blood hematocrit (volume fraction) 31 % 40-54 Automated erythrocyte mean corpuscular volume 86 [foz_us] 80-99 Automated erythrocyte mean corpuscular hemoglobin (mass per erythrocyte) 28 pg 25-34 Automated erythrocyte mean corpuscular hemoglobin concentration measurement (mass/volume) 33 g/dL 32-36 Automated erythrocyte distribution width ratio 14.2 % 10.0- 14.5 Automated blood platelet count (count/volume) 300 10*3/uL 130-400 Automated blood platelet mean volume measurement 8.7 [foz_us] 7.4-10.4 Automated blood neutrophils/100 leukocytes 63 % 42-75 Automated blood lymphocytes/100 leukocytes 23 % 12-44 Blood monocytes/100 leukocytes 10 % 0-12 Automated blood eosinophils/100 leukocytes 4 % 0-10 Automated blood basophils/100 leukocytes 0 % 0-10 Blood neutrophils automated count (number/volume) 4.8 10*3 1.8-7.8 Blood lymphocytes automated count (number/volume) 1.7 10*3 1.0-4.0 Blood monocytes automated count (number/volume) 0.8 10*3 0.0- 1.0 Automated eosinophil count 0.3 10*3/uL 0.0-0.3 Automated blood basophil count (count/volume) 0.0 10*3/uL 0.0-0.1 Comprehensive metabolic panel - 11/01/18 16:27 Serum or plasma sodium measurement (moles/volume) 142 mmol/L 135-145 Serum or plasma potassium measurement (moles/volume) 4.3 mmol/L 3.6-5.0 Serum or plasma chloride measurement (moles/volume) 110 mmol/L 98-107 Carbon dioxide 22 mmol/L 21-32 Serum or plasma anion gap determination (moles/volume) 10 mmol/L 5-14 Serum or plasma urea nitrogen measurement (mass/volume) 19 mg/dL 7-18 Serum or plasma creatinine measurement (mass/volume) 1.44 mg/dL 0.60-1.30 Serum or plasma urea nitrogen/creatinine mass ratio 13 NRG Serum or plasma creatinine measurement with calculation of estimated glomerular filtration rate 48 NRG Serum or plasma glucose measurement (mass/volume) 138 mg/dL 70-105 Serum or plasma calcium measurement (mass/volume) 9.2 mg/dL 8.5-10.1 Serum or plasma total bilirubin measurement (mass/volume) 0.4 mg/dL 0.1-1.0 Serum or plasma alkaline phosphatase measurement (enzymatic activity/volume) 74 U/L 40-136 Serum or plasma aspartate aminotransferase measurement (enzymatic activity/volume) 9 U/L 5-34 Serum or plasma alanine aminotransferase measurement (enzymatic activity/volume) 9 U/L 0-55 Serum or plasma protein measurement (mass/volume) 7.0 g/dL 6.4-8.2 Serum or plasma albumin measurement (mass/volume) 3.5 g/dL 3.2-4.5 CALCIUM CORRECTED 9.6 mg/dL 8.5-10.1 Capillary blood glucose measurement by glucometer (mass/volume) - 11/01/18 20:03 Capillary blood glucose measurement by glucometer (mass/volume) 88 mg/dL 70-110 Capillary blood glucose measurement by glucometer (mass/volume) - 11/02/18 06:40 Capillary blood glucose measurement by glucometer (mass/volume) 160 mg/dL 70-110 Pathologist review of blood test by comment - 11/02/18 09:22 Blood leukocytes automated count (number/volume) 7.3 10*3/uL 4.3-11.0 Blood erythrocytes automated count (number/volume) 3.71 10*6/uL 4.35-5.85 Venous blood hemoglobin measurement (mass/volume) 10.1 g/dL 13.3-17.7 Blood hematocrit (volume fraction) 32 % 40-54 Automated erythrocyte mean corpuscular volume 87 [foz_us] 80-99 Automated erythrocyte mean corpuscular hemoglobin (mass per erythrocyte) 27 pg 25-34 Automated erythrocyte mean corpuscular hemoglobin concentration measurement (mass/volume) 31 g/dL 32-36 Automated erythrocyte distribution width ratio 13.8 % 10.0- 14.5 Automated blood platelet count (count/volume) 288 10*3/uL 130-400 Automated blood platelet mean volume measurement 8.3 [foz_us] 7.4-10.4 Automated blood neutrophils/100 leukocytes 70 % 42-75 Automated blood lymphocytes/100 leukocytes 17 % 12-44 Blood monocytes/100 leukocytes 3 % NRG Automated blood eosinophils/100 leukocytes 4 % 0-10 Automated blood basophils/100 leukocytes 1 % 0-10 Blood neutrophils automated count (number/volume) 5.1 10*3 1.8-7.8 Blood lymphocytes automated count (number/volume) 1.2 10*3 1.0-4.0 Blood monocytes automated count (number/volume) 0.7 10*3 0.0- 1.0 Automated eosinophil count 0.3 10*3/uL 0.0-0.3 Automated blood basophil count (count/volume) 0.1 10*3/uL 0.0-0.1 Manual blood segmented neutrophils/100 leukocytes 73 % NRG Blood band neutrophils/100 leukocytes 2 % NRG Manual blood lymphocytes/100 leukocytes 17 % NRG Manual eosinophils/100 leukocytes in nose 5 % NRG Manual blood basophils/100 leukocytes 0 % NRG Blood erythrocyte morphology finding identification NORMAL NRG Blood reticulocytes count (number/volume) 52 10*9/L 24-90 Blood reticulocytes/100 erythrocytes 1.40 % 0.50-2.40 Serum iron and total iron binding capacity panel - 11/02/18 09:22 Serum or plasma iron measurement (mass/volume) 29 % 40-180 Total iron binding capacity and transferrin saturation measurement 13 % 15-50 Iron binding capacity [mass/volume] in serum or plasma 224 % 280-380 UIBC (unsaturated iron binding capacity) 195 % 55-450 Serum or plasma ferritin measurement (mass/volume) 249.3 % 32.0-356.0 Capillary blood glucose measurement by glucometer (mass/volume) - 11/02/18 11:33 Capillary blood glucose measurement by glucometer (mass/volume) 178 mg/dL 70-110 Capillary blood glucose measurement by glucometer (mass/volume) - 11/02/18 14:57 Capillary blood glucose measurement by glucometer (mass/volume) 167 mg/dL 70-110 Capillary blood glucose measurement by glucometer (mass/volume) - 11/02/18 20:55 Capillary blood glucose measurement by glucometer (mass/volume) 139 mg/dL 70-110 Automated blood complete blood count (hemogram) panel - 11/03/18 04:08 Blood leukocytes automated count (number/volume) 8.4 10*3/uL 4.3-11.0 Blood erythrocytes automated count (number/volume) 3.93 10*6/uL 4.35-5.85 Venous blood hemoglobin measurement (mass/volume) 11.1 g/dL 13.3-17.7 Blood hematocrit (volume fraction) 33 % 40-54 Automated erythrocyte mean corpuscular volume 85 [foz_us] 80-99 Automated erythrocyte mean corpuscular hemoglobin (mass per erythrocyte) 28 pg 25-34 Automated erythrocyte mean corpuscular hemoglobin concentration measurement (mass/volume) 33 g/dL 32-36 Automated erythrocyte distribution width ratio 13.8 % 10.0- 14.5 Automated blood platelet count (count/volume) 303 10*3/uL 130-400 Automated blood platelet mean volume measurement 8.5 [foz_us] 7.4-10.4 Whole blood basic metabolic panel - 11/03/18 04:08 Serum or plasma sodium measurement (moles/volume) 140 mmol/L 135-145 Serum or plasma potassium measurement (moles/volume) 4.2 mmol/L 3.6-5.0 Serum or plasma chloride measurement (moles/volume) 111 mmol/L 98-107 Carbon dioxide 19 mmol/L 21-32 Serum or plasma anion gap determination (moles/volume) 10 mmol/L 5-14 Serum or plasma urea nitrogen measurement (mass/volume) 16 mg/dL 7-18 Serum or plasma creatinine measurement (mass/volume) 0.94 mg/dL 0.60-1.30 Serum or plasma urea nitrogen/creatinine mass ratio 17 NRG Serum or plasma creatinine measurement with calculation of estimated glomerular filtration rate > NRG Serum or plasma glucose measurement (mass/volume) 114 mg/dL 70-105 Serum or plasma calcium measurement (mass/volume) 9.4 mg/dL 8.5-10.1 Vancomycin trough - 11/03/18 04:08 Vancomycin trough 28.3 ug/mL 10.0-20.0 Vancomycin trough - 11/03/18 11:15 Vancomycin trough 22.9 ug/mL 10.0-20.0 Capillary blood glucose measurement by glucometer (mass/volume) - 11/03/18 11:45 Capillary blood glucose measurement by glucometer (mass/volume) 149 mg/dL 70-110 Encounters ACCT No. Visit Date/Time Discharge Status Pt. Type Provider Facility Loc./Unit Complaint [id number] 12/14/2014 13:19:00 12/14/2014 23:59:59 CLS Outpatient TEODORO LOPEZ DO [id number] 12/13/2014 11:14:00 12/13/2014 23:59:59 CLS Outpatient MAKSIMLMIGUEL GRUBER APRN [id number] 12/12/2014 11:26:00 12/12/2014 23:59:59 CLS Outpatient LOPEZ DOTEODORO [id number] 12/10/2014 10:07:00 12/10/2014 23:59:59 CLS Outpatient HELLMIGUEL GRUBER APRN [id number] 11/12/2014 10:53:00 11/12/2014 23:59:59 CLS Outpatient HELLMIGUEL GRUBER APRN [id number] 11/12/2014 10:53:00 11/12/2014 23:59:59 CLS Outpatient JESSICA DOTEODORO [id number] 08/13/2014 09:26:00 08/13/2014 23:59:59 CLS Outpatient HELLMIGUEL GRUBER APRN [id number] 08/13/2014 09:26:00 08/13/2014 23:59:59 CLS Outpatient JESSICA DOTEODORO [id number] 06/08/2014 10:43:00 06/08/2014 23:59:59 CLS Outpatient LOPEZ DOTEODORO [id number] 06/05/2014 13:12:00 06/05/2014 23:59:59 CLS Outpatient LOPEZ DOTEODORO [id number] 06/04/2014 13:24:00 06/04/2014 23:59:59 CLS Outpatient LOPEZ DOTEODORO [id number] 05/30/2014 11:34:00 05/30/2014 23:59:59 CLS Outpatient LOPEZ DOTEODORO [id number] 05/11/2014 14:38:00 05/11/2014 23:59:59 CLS Outpatient LOPEZ DOTEODORO [id number] 05/08/2014 12:10:00 05/08/2014 23:59:59 CLS Outpatient MIRLANDE PATIÑO APRN [id number] 2014 11:23:00 2014 23:59:59 CLS Outpatient MIRLANDE PATIÑO APRN [id number] 05/02/2014 11:40:00 05/02/2014 23:59:59 CLS Outpatient LOPEZ DOVIJAYJohnson Starr [id number] 05/01/2014 09:28:00 05/01/2014 23:59:59 CLS Outpatient MAKSIMLMIGUEL GRUBER APRN Manoj [id number] 04/27/2014 13:16:00 04/27/2014 23:59:59 CLS Outpatient KAYLYN WINTERSMIRLANDE Akhtar [id number] 04/25/2014 12:16:00 04/25/2014 23:59:59 CLS Outpatient FANNY RODRIGUES MD [id number] 04/24/2014 12:51:00 04/24/2014 23:59:59 CLS Outpatient KAYLYN WINTERSMIRLANDE Akhtar [id number] 04/23/2014 12:26:00 04/23/2014 23:59:59 CLS Outpatient MAKSIMLYASMANI WINTERSNMIGUEL Manoj [id number] 04/19/2014 11:37:00 04/19/2014 23:59:59 CLS Outpatient HELLYASMANI WINTERSNLATOYAManoj Aranda [id number] 04/17/2014 12:08:00 04/17/2014 23:59:59 CLS Outpatient HELLMIGUEL GRUBER APRN Manoj [id number] 04/16/2014 10:48:00 04/16/2014 23:59:59 CLS Outpatient LOPEZ DOTEODORO Ro [id number] 04/13/2014 11:13:00 04/13/2014 23:59:59 CLS Outpatient LOPEZ DOVIJAYJohnson Starr [id number] 04/12/2014 11:30:00 04/12/2014 23:59:59 CLS Outpatient LOPEZ DO, TEODORO Starr [id number] 03/27/2014 11:11:00 03/27/2014 23:59:59 CLS Outpatient HELLYASMANI NEUROSURGERY PHYSICIANLATOYAE E [id number] 03/26/2014 11:16:00 03/26/2014 23:59:59 CLS Outpatient LOPEZ DO, TEODORO Starr [id number] 03/22/2014 11:33:00 03/22/2014 23:59:59 CLS Outpatient LOPEZ DO, TEODORO Ro [id number] 03/20/2014 10:40:00 03/20/2014 23:59:59 CLS Outpatient LOPEZ DO, TEODORO Ro [id number] 03/16/2014 10:52:00 03/16/2014 23:59:59 CLS Outpatient LOPEZ DO, TEODORO Starr [id number] 03/14/2014 09:54:00 03/14/2014 23:59:59 CLS Outpatient LOPEZ DO, TEODORO Starr [id number] 03/13/2014 10:32:00 03/13/2014 23:59:59 CLS Outpatient LOPEZ DO, TEODORO Starr [id number] 03/09/2014 10:23:00 03/09/2014 23:59:59 CLS Outpatient KAYLYN NEUROSURGERY PHYSICIANMIRLANDE Akhtar [id number] 03/07/2014 11:36:00 03/07/2014 23:59:59 CLS Outpatient LOPEZ DO, TEODORO Starr [id number] 03/01/2014 11:32:00 03/01/2014 23:59:59 CLS Outpatient LOPEZ DO, TEODORO Starr [id number] 02/28/2014 10:48:00 02/28/2014 23:59:59 CLS Outpatient LOPEZ DO, TEODORO Starr [id number] 02/27/2014 11:01:00 02/27/2014 23:59:59 CLS Outpatient LOPEZ DO, TEODORO Starr [id number] 02/26/2014 10:38:00 02/26/2014 23:59:59 CLS Outpatient LOPEZ DO, TEODORO Ro [id number] 02/23/2014 08:38:00 02/23/2014 23:59:59 CLS Outpatient LOPEZ DO, TEODORO Starr [id number] 02/16/2014 10:03:00 02/16/2014 23:59:59 CLS Outpatient LOPEZ DO, TEODORO Ro [id number] 02/02/2014 13:55:00 02/02/2014 23:59:59 CLS Outpatient LOPEZ DO, TEODORO Starr [id number] 01/24/2014 10:27:00 01/24/2014 23:59:59 CLS Outpatient HELLWIG NEUROSURGERY PHYSICIANMIGUEL [id number] 01/17/2014 11:01:00 01/17/2014 23:59:59 CLS Outpatient LOPEZ DO, TEODORO Ro [id number] 01/01/2014 11:56:00 01/01/2014 23:59:59 CLS Outpatient HELLWIG NEUROSURGERY PHYSICIANMIGUEL [id number] 12/27/2013 09:47:00 12/27/2013 23:59:59 CLS Outpatient LOPEZ DO, TEODORO Ro [id number] 12/20/2013 15:14:00 12/20/2013 23:59:59 CLS Outpatient LOPEZ TEODORO HAMM [id number] 12/20/2013 10:40:00 12/20/2013 23:59:59 CLS Outpatient CONNIE MANNING MD [id number] 09/25/2013 10:24:00 09/25/2013 23:59:59 CLS Outpatient MIGUEL ARVIZU APRN [id number] 08/31/2013 10:51:00 08/31/2013 23:59:59 CLS Outpatient TEODORO LOPEZ DO [id number] 08/17/2013 13:25:00 08/17/2013 23:59:59 CLS Outpatient TEODORO LOPEZ DO [id number] 07/31/2013 11:24:00 07/31/2013 23:59:59 CLS Outpatient TEODORO LOPEZ DO [id number] 07/20/2013 13:59:00 07/20/2013 23:59:59 CLS Outpatient TEODORO LOPEZ DO [id number] 07/06/2013 13:44:00 07/06/2013 23:59:59 CLS Outpatient TEODORO LOPEZ DO [id number] 04/07/2013 09:47:00 04/07/2013 23:59:59 CLS Outpatient FANNY RODRIGUES MD [id number] 12/07/2012 14:31:00 12/07/2012 23:59:59 CLS Outpatient FANNY RODRIGUES MD [id number] 10/05/2012 16:15:00 10/05/2012 23:59:59 CLS Outpatient [id number] 10/05/2012 16:15:00 10/05/2012 23:59:59 CLS Outpatient [id number] 09/27/2012 10:24:00 09/27/2012 23:59:59 CLS Outpatient [id number] 06/17/2012 10:19:00 06/17/2012 23:59:59 CLS Outpatient FANNY RODRIGUES MD [id number] 06/17/2012 10:19:00 06/17/2012 23:59:59 CLS Outpatient FANNY RODRIGUES MD [id number] 01/04/2013 11:22:00 Document Registration [id number] 01/03/2013 08:49:00 Document Registration [id number] 10/24/2018 09:00:00 10/24/2018 23:59:59 CLS Outpatient MIRLANDE PATIÑO APRN [place] [id number] 10/25/2018 09:00:00 Document Registration [id number] 01/11/2018 10:00:00 Document Registration [id number] 09/27/2017 12:40:00 Document Registration [id number] 09/03/2017 10:00:00 Document Registration [id number] 06/25/2017 11:20:00 Document Registration [id number] 03/31/2019 11:30:00 03/31/2019 12:35:00 DIS Outpatient LALO DPM, MISAEL Q [facility] PREOP OSTEOMYELITIS [id number] 11/01/2018 13:33:00 11/03/2018 15:18:00 DIS Inpatient JANUSZ MOSER, GLO Starr [facility] 4TH ABSCESS L FOOT CELLULITIS MRSA [id number] 11/01/2018 12:55:00 11/01/2018 12:55:00 CAN Bobo ALLISON MD, RAMON Garrido [facility] ER MRSA IN FOOT [id number] 06/20/2018 08:05:00 06/20/2018 11:35:00 DIS [facility] [id number] 06/16/2018 14:14:00 06/16/2018 16:30:00 DIS Outpatient LALO DPM, MISAEL Q [facility] PREOP HYPERTROPHIC LEFT 2ND METATARSAL [id number] 05/20/2018 13:00:00 05/20/2018 23:59:59 CLS Preadmit LALO DPM, MISAEL Q [facility] SDC HYPERTROPHIC LEFT 2ND METATARSAL [id number] 09/22/2017 10:14:00 09/22/2017 13:40:00 DIS Outpatient PATRICIA CERVANTES DO [facility] ENDO CHRONIC DIARRHEA/REFLUX [id number] 09/16/2017 05:33:00 09/16/2017 23:59:59 CLS Outpatient PATRICIA CERVANTES DO [facility] PREOP COLONOSCOPY/EGD [id number] 08/09/2015 09:13:00 08/09/2015 23:59:59 CLS Outpatient MIRLANDE LINDA MD [facility] RAD TENITUS,HISTORY OF HEAVY SMOKING,HOARSENESS [id number] 06/28/2015 06:09:00 06/28/2015 10:45:00 DIS Outpatient LALO DPM, MISAEL Q [facility] OSTEOMYLITIS RIGHT FOOT [id number] 06/26/2015 05:33:00 06/26/2015 23:59:59 CLS Outpatient LALO DPM, MISAEL Q [facility] PREOP OSTEOMYLITIS RIGHT FOOT [id number] 06/14/2015 12:06:00 06/14/2015 23:59:59 CLS Outpatient LALO DPM, MISAEL Q [facility] RAD POSTERIOR TIBIAL TENDONOSIS [id number] 05/14/2014 08:47:00 05/14/2014 13:45:00 DIS Outpatient LALO DPM, MISAEL Q [facility] GANGRENOUS TOE [id number] 05/09/2014 14:55:00 05/09/2014 23:59:59 CLS Outpatient LALO DPM, MISAEL Q [facility] PREOP GANGRENOUS TOE [id number] 05/30/2013 08:31:00 08/14/2013 00:01:00 DIS Outpatient LOUIS RODRIGUES MD [facility] ONC [id number] 05/19/2013 11:58:00 05/19/2013 23:59:59 CLS Outpatient LOUIS RODRIGUES MD [facility] RAD PROSTATE CA,ABNORMAL CT AND BONE SCAN [id number] 04/21/2013 11:43:00 04/21/2013 23:59:59 CLS Outpatient LUDMILA STRICKLAND MD [facility] RAD PROSTATE CA [id number] 04/03/2019 07:30:00 PEN Preadmit LALO DPM, MISAEL Q [facility] OSTEOMYELITIS [id number] 08/15/2013 00:00:00 Document Registration [id number] 04/29/2012 13:40:00 Document Registration [id number] 03/14/2012 13:38:00 Document Registration [id number] 11/11/2011 05:44:00 Document Registration [id number] 11/09/2011 08:11:00 Document Registration [id number] 10/21/2011 17:36:00 Document Registration [id number] 09/23/2011 17:13:00 Document Registration [id number] 08/06/2011 16:03:00 Document Registration
[2019-04-03] MEDS ORDERED: LACTATED RINGERS 1,000 ML IV SCH (08:05)
--- NOTE | 2019-04-03 08:05 | Progress Note-Post Operative ---
Post-Operative Progess Note Surgeon (s)/Timber Robber (s) Surgeon MISAEL MAY DPM Timber Robber: none Pre-Operative Diagnosis Osteomyelitis, right 2nd toe Post-Operative Diagnosis same Procedure & Operative Findings Date of Procedure 04/03/19 Procedure Performed/Findings Amputation of right 2nd toe Anesthesia Type Local Estimated Blood Loss Estimated blood loss (mL): Minimal Specimens/Packing Specimens Removed Right 2nd toe Packing: none MISAEL MAY DPM Apr 03, 2019 08:05
[2019-04-03 08:06] VITALS: BP 105/80
[2019-04-03] MEDS ORDERED: HYDROcodone/APAP 5 MG/325 MG (LORTAB) TAB PO PRN (08:15)
--- NOTE | 2019-04-03 08:32 | NUR ---
PATIENT HAS COMPLAINTS OF NAUSEA. THIS RN RECHECKED BLOOD SUGAR 104 AND PATIENT REFUSES TO EAT ANYTHING. AFTER TAKING SUGAR AND ENCOURAGING TO EAT SINCE WAS NPO PATIENT STILL REFUSED TO EAT ANYTHING AND SAYS NAUSEA IS GONE NOW. VANCO 1G STILL INFUSING AT THIS TIME.
[2019-04-03 08:40] VITALS: BP 95/65
--- NOTE | 2019-04-03 09:10 | NUR ---
PHYSICAL THERAPY KRYSTYNA TO FLOOR TO WORK WITH PATIENT. PATIENT COMPLAINED OF LIGHT DIZZINESS. PATIENT FINALLY ACCEPTED PEANUT BUTTER AND ANNALEE CRACKER AND THEN FELT BETTER. NO COMPLAINTS AFTER PATIENT ATE.
[2019-04-03 09:20] VITALS: BP 95/65
--- NOTE | 2019-04-03 09:31 | Physical Therapy Ortho Eval ---
PT Orthopedic Evaluation Type of Surgery osteomyelitis right 2nd toe (amputation) Prior Level of Function Current Living Status: assisted living Locomotion (Upon Admit): Front Wheeled Walker Established Durable Medical Eq: Front Wheeled Walker Subjective Subjective PWB right foot Entry Into Home: Level Entry Motor Control Motor Control: Motor Control WNL ROM ROM: WFL, except focal deficit Strength Strength: WFL Transfer Transfers (B, C, W/C) (FIM): 6 Gait Gait Assistive Device: FWW Right Lower Extremity: Right Weight Bearing Status RLE: Partial Weight Bearing Left Lower Extremity: Left Weight Bearing Status LLE: Full Weight Bearing Patient is able to perform PWB right foot with surgical shoe in place Gait (FIM): 1 Distance (FIM): 1=up to 49 ft Wheelchair Distance: 45' Wheelchair Level of Assist: 5 Treatment Rendered Treatment: Gait Train Assessment/Goals Goal Time Frame: 1 Visit Safe Ambulation: Yes Plan Treatment Plan: Discharge, Education, Functional Activity Tolerated, Gait, Safety Treatment Duration: eval Visits Per Week: 1 PT/Family Agrees to Plan: Yes Time Time In: 900 Time Out: 914 Total Billed Treatment Time: 14 Billed [facility] LEOBARDO SOLIMAN PT Apr 03, 2019 09:31
--- NOTE | 2019-04-03 12:31 | OPERATIVE REPORT ---
DATE OF SERVICE: 04/03/2019 SURGEON: Casie May DPM PREOPERATIVE DIAGNOSIS: Osteomyelitis, right second toe. POSTOPERATIVE DIAGNOSIS: Osteomyelitis, right second toe. PROCEDURE: Amputation of right second toe. WOUND CLASS: Is contaminated. ANESTHESIA: Local. HEMOSTASIS: None. INDICATION: This 73-year-old male presents complaining of an ulceration to the right second toe. The wound had progressed fairly rapidly from a small wound down to bone. Last week in the office, the head of the middle phalanx was seen through the wound and was able to be extruded from the wound without any difficulty or dissection. That specimen was sent for culture and sensitivity. It was then clear that this was progressing rather fast and that the amputation would be appropriate in resting the progression of the infection. The patient understands that with his vascular status, he may not heal well in lieu of his diabetes. He is willing to proceed and no guarantees were extended to the patient. DESCRIPTION OF PROCEDURE: The patient was brought back to the operating table, placed in secure supine position. Appropriate timeout was performed. Local anesthetic was utilized with 12 mL of 1:1 mixture of 1% Xylocaine, 0.5% Marcaine injected in a local infusion to the second ray of the right foot. The foot was then prepped and draped in normal sterile manner after an ankle tourniquet was applied. The tourniquet was never inflated during the procedure. Attention was then directed to the right second toe where a racquet-type incision was made with the handle dorsal extending over the middle phalanx and meeting at the plantar aspect of the digit. The digit was then disarticulated utilizing sharp dissection down to the metatarsophalangeal joint. The ulceration to the dorsal aspect of the middle phalanx was evaluated and found to have some necrotic tissue. A sample was taken of the middle phalanx bone and sent for cultures and sensitivity. The remainder of the bone was sent for gross and microscopic evaluation. Attention was then directed to the right foot where the incision was inspected and found to be free of any necrotic or gross signs of bacterial infection. The tissue did not have any active bleeders. However, it did have nice pink edges and had appropriate bleeding within the wound itself. The flexor and extensor tendons were identified and cut as proximally as possible. The wound was then flushed with 1000 mL normal saline after which a swab culture was performed to the remaining wound base. Closure was then performed in layers. Deep space was closed with 4-0 Vicryl, superficial with 4-0 Vicryl and skin closure with 4-0 Prolene in a simple interrupted type stitch. Postoperative dressing consisted of Betadine soaked Adaptic, sterile 4 x 4, sterile Kerlix all secured with a Coban wrap. The patient tolerated the anesthesia and procedure well, was transported from the operating room to the recovery area with vital signs stable and vascular status intact to all remaining digits of the right foot. The patient is to follow up in my office in 10 days' period of time or sooner if necessary. In the meantime, he is to have minimal weightbearing on the right lower extremity and to continue with his oral antibiotic until we can identify what bacterium was cultured from the toe. Job ID: [id number] DocumentID: [id number] Dictated Date: 04/03/2019 08:15:39 Electrical Manufacturing Engineer Date: 04/03/2019 12:30:42 Dictated By: CASIE MAY DPM
== END 2019-04-03 09:20 | disposition home or self-care (01) ==
LOC: SDC 06:15
PROVIDERS: ATTEND Podiatrist Foot & Ankle Surgery
DX: M86.9 Osteomyelitis, unspecified (principal); Z11.2 Encounter for screening for other bacterial diseases; I10 Essential (primary) hypertension; I25.10 Atherosclerotic heart disease of native coronary artery without angina pectoris; E78.5 Hyperlipidemia, unspecified; F32.9 Major depressive disorder, single episode, unspecified; E11.40 Type 2 diabetes mellitus with diabetic neuropathy, unspecified; K21.9 Gastro-esophageal reflux disease without esophagitis; Z87.891 Personal history of nicotine dependence; Z79.4 Long term (current) use of insulin; Z79.82 Long term (current) use of aspirin; Z79.899 Other long term (current) drug therapy
CPT/HCPCS: 82962; 87070; 87075; 87077; 87081; 87101; 87186; 87205